=== PATIENT | female | born 1960 | race Caucasian/White ===

== ENCOUNTER 2020-08-21 07:56 | Outpatient (CLI) | payer MEDICARE, MEDICAID, SELFPAY ==
--- NOTE | ~2020-08-21 | XR_ITS ---
EXAMINATION: XR barium swallow modified DATE: 08/21/2020 08:38 INDICATION: Dysphagia, unspecified TECHNIQUE: Modified barium esophagram was performed by myself to administered fluoroscopy, in conjun ction with speech pathologist who administered barium in varying consistencies as per speech patholog ist documentation. This was recorded on tape. A single fluoroscopic spot image was recorded. The DAP for this procedure was 1.2 Gycm2. Fluoroscopy exposure time was 1.7 minutes. FINDINGS: Oral stage: Adequate function. Pharyngeal phase: Adequate function. Laryngeal penetration: None. Aspiration: None. Laryngeal sensitivity: Present. IMPRESSION: Unremarkable modified barium swallow. Please refer to speech pathologist findings and spe [facility] feeding recommendations. Reviewed, dictated and finalized at location A. IMPRESSION: Unremarkable modified barium swallow. Please refer to speech pathol ogist findings and specific feeding recommendations.
--- NOTE | 2020-08-21 08:42 | STOPEVAL ---
MODIFIED BARIUM SWALLOW EVALUATION: Thank you for referring Paula Lomeli to [facility].? Attending Provider: Cameron Xiong MD Outpatient Past Medical History: Past Medical History Source of Past Medical History Patient Endocrine History Hx Diabetes Yes Evaluation Information: Problem Diagnosis dysphagia Onset 1 month ago Modified Barium Swallow Evaluation: Recent Swallowing History Reports Dysphagia Yes: coughing and choking History of Dysphagia No Duration of Dysphagia 1 month Other Factors Impacting Dysphagia None History of Pneumonia No Reported Difficult Consistencies Thin Liquids,Solids Intake Method Prior to Swallow Oral Evaluation Diet Prior to Swallow Evaluation Regular, Level 7 Liquid Consistency Prior to Swallow Thin (0) Evaluation Consistency Solid Consistency Method of Presentation Spoon Oral Preparatory Symptoms None Oral Phase Symptoms None Pharyngeal Phase Symptoms None Severity of Vallecular Residue None - 0% No Residue Severity of Pyriform Sinus Residue None - 0% No Residue 8 Point Laryngeal Penetration-Aspiration Material Does Not Enter Airway Scale Cervical/Esophageal Symptoms None Mixed Consistency Method of Presentation Spoon Oral Preparatory Symptoms None Oral Phase Symptoms None Pharyngeal Phase Symptoms None Severity of Vallecular Residue None - 0% No Residue Severity of Pyriform Sinus Residue None - 0% No Residue 8 Point Laryngeal Penetration-Aspiration Material Does Not Enter Airway Scale Cervical/Esophageal Symptoms None Pureed Consistency Method of Presentation Spoon Oral Preparatory Symptoms None Oral Phase Symptoms None Pharyngeal Phase Symptoms None Severity of Vallecular Residue None - 0% No Residue Severity of Pyriform Sinus Residue None - 0% No Residue 8 Point Laryngeal Penetration-Aspiration Material Does Not Enter Airway Scale Cervical/Esophageal Symptoms None Thin Uncontrolled 2 Method of Presentation Straw Oral Preparatory Symptoms None Oral Phase Symptoms None Pharyngeal Phase Symptoms None Severity of Vallecular Residue None - 0% No Residue Severity of Pyriform Sinus Residue None - 0% No Residue 8 Point Laryngeal Penetration-Aspiration Material Does Not Enter Airway Scale Cervical/Esophageal Symptoms None Thin Uncontrolled 1 Method of Presentation Cup Oral Preparatory Symptoms None Oral Phase Symptoms None Pharyngeal Phase Symptoms None Severity of Vallecular Residue None - 0% No Residue Severity of Pyriform Sinus Residue None - 0% No Residue 8 Point Laryngeal Penetration-As
== END 2020-08-21 07:57 | disposition home or self-care (01) ==
LOC: ANHIMG 08:02
PROVIDERS: PCP Internal Medicine; Visit Provider Otolaryngology
DX: R13.10 Dysphagia, unspecified (principal)
CPT/HCPCS: 92611

== ENCOUNTER 2022-05-20 13:19 | Outpatient (CLI) | payer MEDICARE, MEDICAID, SELFPAY ==
--- NOTE | ~2022-05-20 | PE_ITS ---
EXAMINATION: PET skull to mid thigh DATE: 05/20/2022 15:40 INDICATION: Abnormal findings on diagnostic imaging of other specific body part. Abnormal CT . TECHNIQUE: Blood glucose level was 87 mg/dL. 10.518 mCi of 18-fluorodeoxyglucose (18-FDG) was adminis tered i.v. Low dose computed tomography (CT) images were acquired from the base of the brain to the p roximal thighs for attenuation correction and anatomic localization. Positron emission tomography (PE T) images were acquired in the same distribution beginning 59 minutes after injection. Images includi ng fused PET/CT images were reconstructed in axial, coronal, and sagittal planes. Automated exposure control technique was employed. The dose-length product was 481.20mGy-cm. COMPARISON: None FINDINGS: Head/neck: There is symmetric increased activity in the oral cavity, palatine tonsils, laryngeal muscles and ocu lar muscles without CT correlate, likely physiologic. 1.7 cm right thyroid nodule without evident FDG uptake. No pathologically enlarged cervical lymphadenopathy or suspicious foci of increased FDG upta ke in the visualized head or neck. Chest: Mild discoid atelectasis in the bilateral lower lobes. Calcified nodule in the left upper lobe and ca lcified left hilar and mediastinal lymph nodes consistent with old granulomatous disease. No other scruggs spicious pulmonary nodules, pneumonia, pulmonary edema or pleural effusion. Mild cardiomegaly. No per icardial effusion. Thoracic aorta is normal in caliber. There is mild uptake scattered along the thor acic esophagus without radiologic correlate, the maximal SUV values near the thoracic inlet with maxi mal severe 4.9. There are a couple enlarged FDG avid paraesophageal lymph nodes in the inferior thora x the more cephalad measuring 2.2 x 1.4 cm with maximal SUV of 20.7 and the more caudal thoracic outl et measuring 2.3 x 1.5 cm with maximal SUV of 29.4. No other pathologically enlarged or FDG avid thor acic lymphadenopathy. Abdomen/pelvis/proximal thighs: Thyromegaly. There are multiple scattered hepatic and splenic calcific lesions consistent with old gr anulomatous disease. There are a few hepatic cysts the largest measuring 2.5 cm. Physiologic renal ac cumulation and excretion of FDG activity in the kidneys, bladder and along portions of ureters. Bilat eral renal cysts the largest on the right measuring 5.4 cm. 2 mm nonobstructing stone at the lower po le of the left kidney. Normal degree and heterogenous pattern of increased uptake throughout the live r without radiologic correlate or dominant FDG avid lesion. The gallbladder, pancreas, spleen and santiago ateral adrenal glands are normal. Mild to moderate uptake scattered throughout the bowels without rad iologic correlate, also likely physiologic. Likely enlarged aortocaval lymph node measuring 6.1 x 3.6 cm with maximal SUV of 51.9. There are several smaller but still significantly enlarged left para-ao rtic lymph nodes, the largest measuring 2.0 cm in maximal short axis diameter with maximal SUV of 35. 1. No other pathologically enlarged or FDG avid lymphadenopathy in the pelvis or inguinal region. Musculoskeletal: No suspicious lytic, blastic or FDG avid bone lesions. IMPRESSION: 1. Enlarged and FDG markedly FDG avid aortocaval, left para-aortic and inferior paraesophageal lymph nodes suspicious for lymphoma with no lesion suspicious for primary malignancy which is most concerni ng for lymphoma. Consider CT-guided biopsy of one of the left periaortic lymph nodes. Reviewed, dictated and finalized at location A. TRONIC WARFARE TECHNICIAN IMPRESSION: 1. Enlarged and FDG markedly FDG avid aortocaval, left para-aortic and inferior paraesophageal lymph nodes suspicious for lymphoma with no lesion suspicious f or primary malignancy which is most con
[2022-05-20 14:07] LABS: Glucose Point of Care 87 mg/dl (65-105)
== END 2022-05-20 13:20 | disposition home or self-care (01) ==
PROVIDERS: PCP Internal Medicine; Visit Provider Internal Medicine
DX: R93.89 Abnormal findings on diagnostic imaging of other specified body structures (principal)
CPT/HCPCS: 78815; A9552

== ENCOUNTER 2022-06-08 01:53 | Outpatient (CLI) | payer MEDICARE, MEDICAID, SELFPAY ==
[2022-06-03 10:13] VITALS: BMI 27.9
--- NOTE | 2022-06-03 10:14 | PC.NURSE ---
Pre Radiology instructions Report to the outpatient [facility] AT 0900 on date 06/08/22. Procedure Time: 1100. YOU MAY BE MONITORED AT HOSPITAL FOR UP TO 4 HOURS AFTER YOUR PROCEDURE. 1-2 visitors will be allowed to accompany the patient into the hospital. ?The visitor will be instructed to remain with patient at all times or MAY BE ASKED TO leave the building due to restrictions.? We will allow the visitor to come back to the postoperative area when patient is ready.? NO children visitors allowed at this time. You and your visitor will be asked to self-screen and do not enter if you have any COVID symptoms. A mask is OPTIONAL within the hospital. Patients are to have no food or drink 6 hours prior to procedure time Driving will be restricted after the procedure, you must have a person to drive you home. Labs will be drawn in preop area and once reviewed, you will be taken to radiology area for procedure. When the procedure is completed, you will be taken to outpatient where you will be monitored for several hours. You may have one visitor in this area. Other than holding anti-coagulants, patient may take other medication(s) as scheduled. Prior to your appointment date patients are instructed to hold anti-coagulants after discussing with ordering provider to stop. If unable to discontinue anti-coagulants please notify radiologist. ? No aspirin or warfarin (Coumadin) for 7 days prior to the procedure. ? No clopidogrel (Plavix), ticagrelor (Brilinta), prasugrel (Effient) or dabigatran (Pradaxa) for 5 days prior to the procedure. ? No rivaroxaban (Xarelto), apixaban (Eliquis), dipyridamole (Aggrenox or Persantine) or cilostazol (Pletal) for 2 days prior to the procedure. Medications to discontinue per physician: N/A Date to take last dose: N/A Please leave all valuables, including medications, at home the day of procedure. The hospital will not accept responsibility for valuables. Wear comfortable, loose fitting clothing.? Follow any additional instructions given to you from ordering provider. Telephone instructions given to MARY ORELLANA and asked if any additional questions and then verbalized understanding. Patient advised to call scheduling provider office or registration scheduling [phone] if any additional questions.
[2022-06-08] VITALS (8 sets, daily range): BP systolic 115–154; BP diastolic 66–100; PULSE 51–91; RESP 14–18; TEMP 36.7; O2SAT 94–97
--- NOTE | ~2022-06-08 | CT_ITS ---
EXAMINATION: CT biopsy lymph node DATE: 06/08/2022 11:19 INDICATION: Retroperitoneal lymphadenopathy. TECHNIQUE: The procedure including the risks, benefits, and alternatives was discussed with the patie nt. Risks discussed included bleeding and infection. The patient verbalized understanding of the risk s and agreed to proceed. The skin overlying the retroperitoneum was prepped and draped in usual ster ile fashion. Anesthetic was administered with 1% lidocaine subcutaneously. A 16 gauge outer needle was advanced under CT guidance to the left paracolic lymphadenopathy. An 18 gauge core biopsy needle was then used to obtain 6 core biopsy specimens. The mA was adjusted according to patient size. Itera tive reconstruction technique was employed. The dose-length product was 211.16 mGy-cm. The needle was removed and the entry site was cleaned and dressed. There were no immediate complications. FINDINGS: CT images demonstrate the outer needle tip adjacent to an enlarged left para-aortic lymph n ode. IMPRESSION: 1. CT-guided core needle biopsy of an enlarged left para-aortic lymph node. Reviewed, dictated and finalized at location A.
[2022-06-08 09:26] LABS: Basophils Absolute Auto 0.1 K/mm3 (0.0-0.1); Basophils Percent Auto 0.7 % (0.2-1.2); Eosinophils Absolute Auto 0.2 K/mm3 (0-0.3); Eosinophils Percent Auto 3.5 % (0-4.4); Hematocrit 40.7 % (37.0-47.0); Hemoglobin 12.9 g/dL (12.0-15.0); Immature Granulocyte Absolute 0.03 K/mm3 (0.00-0.031); Immature Granulocyte Percent A 0.4 % (0-0.5); Lymphocytes Absolute Auto 1.67 K/mm3 (0.9-3.2); Lymphocytes Percent Auto 24.3 % (18.3-44.2); Mean Corpuscular HGB Conc 31.7 g/dl (32-36); Mean Corpuscular Hemoglobin 27.6 pg (26-34); Mean Platelet Volume 9.2 fl (7.4-10.4); Monocytes Absolute Auto 0.6 K/mm3 (0.1-0.6); Monocytes Percent Auto 8.7 % (2.6-8.5); Neutrophils Absolute Auto 4.3 K/mm3 (1.3-6.7); Neutrophils Percent Auto 62.4 % (45.5-73.1); Platelet Count Result 193 k/mm3 (150-375); Red Blood Count 4.68 M/mm3 (4.2-5.4); Red Cell Distribution Width 14.3 % (11.5-14.5); White Blood Count 6.9 K/mm3 (4.5-10.0)
[2022-06-08 09:38] LABS: Prothrombin Time 12.5 Seconds (11.1-14.7)
== END 2022-06-08 13:15 | disposition home or self-care (01) ==
PROVIDERS: PCP Internal Medicine; Visit Provider Radiology Diagnostic Radiology
PROC: (CPT 77012; principal; 2022-06-08 11:00)
DX: R93.89 Abnormal findings on diagnostic imaging of other specified body structures (principal)
CPT/HCPCS: 36415; 38505; 77012; 85025; 85610; 88184; 88305; 88341; 88342; 88360

== ENCOUNTER 2022-09-16 18:37 | Emergency (ER) | payer MEDICARE, MEDICAID, SELFPAY ==
--- NOTE | ~2022-09-16 | XR_ITS ---
EXAMINATION: XR chest 1V portable Exam Date/Time: 09/16/2022 21:30 CDT HISTORY: hypotension. Hx diabetes, non-hodgkins lymphoma Comparison: None. RESULT: Lines, tubes, and devices: Right implanted port, terminating at the cavoatrial junction. Lungs and pleura: No focal consolidation, effusion, or pneumothorax. Streaky bibasilar opacities lik anam representing atelectasis and/or scar. Cardiomediastinal silhouette: Calcified hilar nodes, otherwise unremarkable. Other: No acute osseous or upper abdominal finding. IMPRESSION: No acute cardiopulmonary process. Reviewed, dictated and finalized at location K.
[2022-09-16 18:40] VITALS: BP 82/59; PULSE 72; RESP 18; O2SAT 96
[2022-09-16 18:44] LABS: Glucose Point of Care 115 mg/dl (65-105)
--- NOTE | 2022-09-16 19:16 | ED.RECABL ---
HPI - Recheck/Abnormal Lab/Rx General Chief Complaint: Recheck/Abnormal Lab/Rx Stated Complaint: low blood sugar Time Seen by Provider: 09/16/22 19:15 Source: patient, family and EMS Mode of arrival: EMS Limitations: no limitations History of Present Illness HPI narrative: Patient came to the hospital from home, lives with her sister because of low blood glucose. Patient is diabetic and reported that she took her insulin this evening with dinner and then shortly after dinner at approximately 1710 patient's family noted her to be lethargic and nearly unresponsive, 9 1 was called, blood glucose was 36, EMT unable to get IV access, patient received IM glucagon and the blood glucose came up to 96, on arrival to the ED patient is awake, alert and oriented x4, blood glucose is 115. Patient on chemotherapy for non-Hodgkin lymphoma at [facility], last chemotherapy was 2 weeks ago. Currently patient denies any fever, chills, nausea, vomiting, chest pain, shortness of breath, headache. Patient been sleeping longer hours since starting chemotherapy few weeks ago Related Data Home Medications Medication Instructions Recorded Confirmed albuterol sulfate 2.5 mg/3 mL 2.5 mg inhalation Q6H 08/13/20 06/03/22 (0.083 %) solution for nebulization amlodipine 5 mg tablet 5 mg PO DAILY 08/13/20 06/03/22 blood sugar diagnostic 08/13/20 07/30/21 gabapentin 600 mg tablet 600 mg PO TID 08/13/20 06/03/22 pantoprazole 20 mg tablet,delayed 20 mg PO QAM 08/13/20 06/03/22 release ziprasidone HCl 80 mg capsule 80 mg PO BID 08/13/20 06/03/22 fluticasone fur. 200 mcg-umeclid 1 inh inhalation DAILY 06/03/22 06/03/22 62.5 mcg-vilant 25 mcg inhalat.powder (Trelegy Ellipta) hydroxyzine pamoate 25 mg capsule 25 mg PO DAILY 06/03/22 06/03/22 insulin detemir U-100 100 unit/mL 20 unit subcut BID 06/03/22 06/03/22 (3 mL) subcutaneous pen (Levemir FlexPen) insulin human U-100 NPH-regulr 10 unit subcut BID 06/03/22 06/03/22 70-30 mix 100 unit/mL subcutaneous susp (Novolin 70/30 U-100 Insulin) Allergies Allergy/AdvReac Type Severity Reaction Status Date / Time aspirin Allergy Mild eyes swell Verified 09/16/22 18:48 clonazepam Allergy Anaphylaxis Verified 09/16/22 18:48 chlorthalidone AdvReac Itching Verified 09/16/22 18:48 Review of Systems Review of Systems: All systems reviewed & are unremarkable except as noted in HPI and below PMFSH Family History Family History Father Alcoholism Mother Alcoholism Other Alcoholism Hypertension Depression Social History Social History Smoking status: Never smoker Alcohol intake: never Substance use: never Exam Narrative: General appearance: Well-developed, well-nourished, sick looking Skin: Pale Head: Normocephalic, nontraumatic Eyes: Clear conjunctiva ENT: Oropharynx normal, ears normal, nose normal Neck: Supple, nontender Chest and respiratory: Airway patent, no respiratory distress, no accessory muscle use Heart: Regular rate/rhythm Abdomen: Soft, nontender, no organomegaly, quiet bowel sounds Vascular: Normal peripheral pulses, normal capillary refill. Musculoskeletal: Normal range of motion, nontender back Neurologic: Alert and oriented ?3, INFORMATION TECHNOLOGY CONSULTANT is normal as tested, no gross motor deficit Course Vital Signs Vital signs: Vital Signs Pulse Rate 72 09/16/22 18:40 Respiratory Rate 18 09/16/22 18:40 Blood Pressure 82/59 L 09/16/22 18:40 Pulse Oximetry 96 09/16/22 18:40 Oxygen Delivery Room Air 09/16/22 18:40 Pulse Rate 60 09/16/22 21:16 Respiratory Rate 16
[2022-09-16 20:07] LABS: Glucose Point of Care 266 mg/dl (65-105)
[2022-09-16 21:16] VITALS: BP 86/52; PULSE 60; RESP 16; O2SAT 98
--- NOTE | 2022-09-16 21:16 | PC.NURSE ---
FABRICIO Conrad made aware of bp. per Dr. Conrad to give a bolus of 1L of NS.
[2022-09-16] MEDS: SODIUM CHLORIDE 0.9% IV 1,000 ML 999 ML IV CONT (21:23)
--- NOTE | 2022-09-16 21:23 | ECG_ITS ---
Measurements Intervals [place] Rate: 61 P: 52 MA: 186 QRS: -4 QRSD: 97 T: 29 QT: 509 QTc: 513 Interpretive Statements SINUS RHYTHM PROLONGED QT INTERVAL ABNORMAL ECG NO PREVIOUS ECG AVAILABLE FOR COMPARISON Electronically Signed On 09-17-2022 7:56:25 CDT by Agustin Fontanez M.D.
[2022-09-16 21:47] LABS: Hematocrit 25.4 % (37.0-47.0); Hemoglobin 8.1 g/dL (12.0-15.0); Immature Platelet Fraction Pct 7.3 % (0.9-11.2); Mean Corpuscular HGB Conc 31.9 g/dl (32-36); Mean Corpuscular Hemoglobin 28.3 pg (26-34); Mean Corpuscular Volume 88.8 fl (80-100); Mean Platelet Volume 11.7 fl (7.4-10.4); Platelet Count Result 58 k/mm3 (150-375); Red Blood Count 2.86 M/mm3 (4.2-5.4); Red Cell Distribution Width 19.2 % (11.5-14.5); White Blood Count 6.1 K/mm3 (4.5-10.0)
[2022-09-16 21:58] LABS: Alanine Aminotransferase 31 U/L (6-35); Albumin Level 3.2 g/dL (3.5-5.1); Alkaline Phosphatase 61 U/L (38-126); Anion Gap 6 mmol/L (8-16); Aspartate Amino Transferase 23 U/L (14-36); Bilirubin,Total 0.2 mg/dL (0.2-1.3); Blood Urea Nitrogen 5 mg/dL (7-17); Calcium 8.4 mg/dL (8.4-10.2); Carbon Dioxide 25 mmol/L (22-30); Chloride 104 mmol/L (98-107); Estimated CRCL calculation 60 ml/min; Estimated Glomerular Filt Rate > 60; Glucose 133 mg/dL (65-110); Potassium 3.2 mmol/L (3.4-5.0); Sodium 135 mmol/L (137-145)
[2022-09-16 22:05] LABS: INR 1.1; Prothrombin Time 14.6 Seconds (11.1-14.7)
[2022-09-16 22:06] LABS: Partial Thromboplastin Time 40.7 SECONDS (22.3-36.8)
[2022-09-16 22:34] LABS: Band Neutrophils Percent 9 % (0-6); Lymphocytes Absolute Manual 0.67 K/mm3 (1.1-4.5); Lymphocytes Percent Manual 11 % (18-44); Neutrophils Absolute Manual 3.59 K/mm3 (1.7-7.2); Neutrophils Percent Manual 50 % (46-73)
[2022-09-16 22:38] LABS: Monocytes Absolute Manual 1.83 K/mm3 (0.1-0.90); Monocytes Percent Manual 30 % (3-9); Platelet Estimate Decreased (Adequate)
[2022-09-16 22:39] LABS: Ovalocytes 1+ (NORMAL); Schistocytes None Seen (NORMAL)
[2022-09-16 22:44] LABS: Appearance Urine Clear (Clear); Bilirubin Urine Negative (Negative); Blood Urine Negative (Negative); Color Urine Yellow (Yellow); Glucose Urine UA 2+ mg/dL (Negative); Ketones Urine Negative (Negative); Leukocyte Esterase Ur Negative LEU/UL (Negative); Nitrate Urine Negative (Negative); Protein Urine Negative (Negative); Specific Grav Ur 1.008 (1.001-1.035); Urobilinogen Urine 0.2 mg/dL (<2.0); pH Urine 6.5 (5.0-9.0)
[2022-09-16 22:47] LABS: Add Urine Microscopic? NO
[2022-09-16 23:31] LABS: Lactic Acid Reflex 1.1 mmol/L (0.7-2.0)
[2022-09-16 23:37] VITALS: BP 115/64; PULSE 80; RESP 19; TEMP 36.9; O2SAT 98
[2022-09-17] MEDS: POTASSIUM CHLORIDE 20 MEQ PACKET (FOR LIQUID) 40 MEQ PO (00:27)
== END 2022-09-17 01:18 | disposition home or self-care (01) ==
PROVIDERS: Emergency Provider Emergency Medicine; PCP Internal Medicine
DX: E11.649 Type 2 diabetes mellitus with hypoglycemia without coma (principal); D69.6 Thrombocytopenia, unspecified; E87.6 Hypokalemia; D64.9 Anemia, unspecified; I95.9 Hypotension, unspecified; C85.90 Non-Hodgkin lymphoma, unspecified, unspecified site; Z79.899 Other long term (current) drug therapy; Z79.4 Long term (current) use of insulin; R94.31 Abnormal electrocardiogram [ECG] [EKG]
CPT/HCPCS: 36415; 71045; 80053; 81003; 82948; 83605; 85025; 85055; 85610; 85730; 86140; 87040; 93005; 96360; 96361; 99283; A9270; J7030

== ENCOUNTER 2023-10-16 18:27 | Emergency (ER) | payer MEDICARE, MEDICAID, SELFPAY ==
[2023-10-16] VITALS (9 sets, daily range): BP systolic 168–188; BP diastolic 91–106; PULSE 79–85; RESP 14–23; TEMP 36.8–37.1; O2SAT 96–100
--- NOTE | ~2023-10-16 | XR_ITS ---
EXAMINATION: XR chest 1V portable DATE: 10/16/2023 18:53 INDICATION: Shortness of breath TECHNIQUE: frontal view of the chest was obtained. COMPARISON: None FINDINGS: Right internal jugular central venous port catheter with distal tip at the mid superior vena cava. Mi ld right apical pleural-parenchymal scarring. Minimal streaky atelectasis at the bilateral lung bases . No other airspace opacities, pulmonary edema, pleural effusion or pneumothorax. Heart size is emil l. Calcified mediastinal lymph nodes consistent with old granulomatous disease. Likely implantable ca rdiac monitor projecting over the lower left chest. Mild lower thoracic levocurvature with moderate s pondylosis. IMPRESSION: 1. Mild right apical pleural-parenchymal scarring and minimal bibasilar atelectasis. Reviewed, dictated and finalized at location A. IMPRESSION: 1. Mild right apical pleural-parenchymal scarring and minimal bibasilar atelect asis.
--- NOTE | 2023-10-16 18:34 | ECG_ITS ---
Test Date: 2023-10-16 18:34:44 Measurements Intervals [place] Rate: 80 P: 67 SC: 176 QRS: -20 QRSD: 99 T: 40 QT: 406 QTc: 471 Interpretive Statements SINUS RHYTHM BORDERLINE R WAVE PROGRESSION, ANTERIOR LEADS CONSIDER INFERIOR INFARCT, AGE INDETERMINATE BORDERLINE ST-T WAVE ABNORMALITY- ANT/HIGH LAT LEADS BASELINE ARTIFACT- I, II, III, AVR, AVL,A VF, V1-V6 ABNORMAL ECG No previous ECG available for comparison Electronically Signed On 10-17-2023 13:06:52 CDT by José Miguel Jose D.O.
[2023-10-16 19:02] LABS: Basophils Percent Auto 0.7 % (0.2-1.2); Eosinophils Absolute Auto 0.1 K/mm3 (0-0.3); Eosinophils Percent Auto 2.2 % (0-4.4); Hematocrit 37.6 % (37.0-47.0); Hemoglobin 12.1 g/dL (12.0-15.0); Immature Granulocyte Absolute 0.01 K/mm3 (0.00-0.031); Immature Granulocyte Percent A 0.2 % (0-0.5); Lymphocytes Absolute Auto 0.99 K/mm3 (0.9-3.2); Lymphocytes Percent Auto 21.8 % (18.3-44.2); Mean Corpuscular HGB Conc 32.2 g/dl (32-36); Mean Corpuscular Hemoglobin 29.1 pg (26-34); Mean Corpuscular Volume 90.4 fl (80-100); Monocytes Absolute Auto 0.4 K/mm3 (0.1-0.6); Monocytes Percent Auto 9.7 % (2.6-8.5); Neutrophils Percent Auto 65.4 % (45.5-73.1); Platelet Count Result 168 k/mm3 (150-375); Red Blood Count 4.16 M/mm3 (4.2-5.4); Red Cell Distribution Width 14.3 % (11.5-14.5); White Blood Count 4.5 K/mm3 (4.5-10.0)
[2023-10-16 19:15] LABS: Alanine Aminotransferase 41 U/L (6-35); Albumin Level 4.9 g/dL (3.5-5.1); Alkaline Phosphatase 67 U/L (38-126); Anion Gap 12 mmol/L (4-12); Aspartate Amino Transferase 32 U/L (14-36); Bilirubin,Total 0.5 mg/dL (0.2-1.3); Blood Urea Nitrogen 13 mg/dL (7-17); Carbon Dioxide 25 mmol/L (22-30); Chloride 101 mmol/L (98-107); Estimated CRCL calculation 60 ml/min; Estimated Glomerular Filt Rate > 60; Glucose 100 mg/dL (65-110); Potassium 3.5 mmol/L (3.4-5.0); Sodium 138 mmol/L (137-145)
[2023-10-16 19:21] LABS: NT Pro B Type Natriuretic Pept 38 pg/mL (19.9-100)
--- NOTE | 2023-10-16 19:23 | ED.GENADULT ---
HPI - General Adult General Chief complaint: Shortness of Breath/Dyspnea Stated complaint: SOB Time Seen by Provider: 10/16/23 18:46 History of Present Illness HPI narrative: This is a 63-year-old female presenting ED with chief complaint of shortness of breath. She has been having shortness of breath for 3 days. It is intermittent. It is associated with chest tightness and anxious knees. Patient says she believes she has COPD but her primary care physician took her off the inhaler 3 years ago. She is denying fevers chills or URI symptoms. No lower extremity edema. Patient just found out 3 days ago prior to her symptoms starting that she was not a good candidate for surgery and she will likely never walk again due to LE neuropathy. This has been causing her significant distress. Patient is not currently short of breath. Related Data Allergies Allergy/AdvReac Type Severity Reaction Status Date / Time aspirin Allergy Difficulty Verified 10/16/23 18:37 Breathing Exam Narrative: APPEARANCE: No apparent distress. Head: atraumatic. EYES: EOMI, NOSE: Atraumatic NECK: Trachea midline RESPIRATORY: No increased rate of breathing clear to auscultation CARDIOVASCULAR: RRR, no peripheral edema ABDOMINAL: Non-distended MUSCULOSKELETAl: Inversion of both feet due to peripheral neuropathy NEURO: Alert. Moving 4/4 extremities SKIN:: Warm, dry. Normal color PSYCHIATRIC: Normal affect Course Vital Signs Vital signs: Vital Signs Temperature 98.7 F 10/16/23 18:30 Pulse Rate 82 10/16/23 18:30 Respiratory Rate 17 10/16/23 18:30 Blood Pressure 188/102 H 10/16/23 18:30 Pulse Oximetry 99 10/16/23 18:30 Temperature 98.3 F 10/16/23 18:32 Pulse Rate 79 10/16/23 19:01 Respiratory Rate 15 10/16/23 19:01 Blood Pressure 176/106 H 10/16/23 19:01 Pulse Oximetry 99 10/16/23 19:01 Oxygen Delivery Room Air 10/16/23 18:32 Medical Decision Making MDM Narrative Medical decision making narrative: -Course: 63-year-old female presenting with intermittent shortness of breath for the last 3 days. Physical exam that wheezing. No objective respiratory distress. Workup urgency department was unremarkable. Troponin D-dimer BNP negative. Viral swabs negative. Chest x-ray showed minimal atelectasis. Patient has been asymptomatic during the course of her stay. Patient will be discharged to follow-up with her primary care physician and given return precautions. -DDX includes but is not limited to: Anxiety, viral illness, COPD, heart failure, pneumonia, PE -Co-morbidities complicating care: Anxiety, copd? Neuropathy -Hx from independent Sources: Family at bedside -Independent interpretation of studies: Labs reviewed. Imaging reviewed. Independent EKG interpretation: Rhythm [sinus], Rate [80], [place] -[normal], [place] -[normal], QRS [narrow], QTC [normal], T waves -[negative for concerning inversions], ST Segments - [Negative for concerning elevations] Final interpretations: [Normal Sinus Rhythm] -Shared decision making / Disposition: Discharge Vital Signs Vital Signs: Vital Signs Temperature 98.7 F 10/16/23 18:30 Pulse Rate 82 10/16/23 18:30 Respiratory Rate 17 10/16/23 18:30 Blood Pressure 188/102 H 10/16/23 18:30 Pulse Oximetry 99 10/16/23 18:30 Temperature 98.3 F 10/16/23 18:32 Pulse Rate 79 10/16/23 19:01 Respiratory Rate 15 10/16/23 19:01 Blood Pressure 176/106 H 10/16/23 19:01 Pulse Oximetry 99 10/16/23 19:01 Oxygen Delivery Room Air 10/16/23 18:32 Lab Data 10/16/23 18:55 10/16/23 18:55 Labs: Lab Results 10/16/23 Range/Units 18:55 WBC 4.5 (4.5-10.0) K/mm3 RBC 4.16 L (4.2-5.4) M/mm3 Hgb 12.1 (12.0-15.0) g/dL Hct 37.6 (37.0-47.0) % MCV 90.4 (80-100) fl MCH 29.1 (26-34) pg MCHC 32.2 (32-36) g/dl RDW 14.3 (11.5-14.5) % Plt Count 168 (150-375) k/mm3 MPV 9.0 (7.4-10.4) fl Immatu
[2023-10-16 19:42] LABS: Influenza A QL RT-PCR Negative (Negative); Influenza B QL RT-PCR Negative (Negative); RSV RNA, RT-PCR Negative (Negative); SARS-CoV-2 RNA PCR Negative (Negative); Troponin I < 0.012 ng/mL (0.000-0.034)
[2023-10-16 19:54] LABS: D Dimer 0.29 ug/mL (<0.48)
== END 2023-10-16 20:59 | disposition home or self-care (01) ==
PROVIDERS: Emergency Medicine; Emergency Provider Emergency Medicine
DX: R06.00 Dyspnea, unspecified (principal); Z20.822 Contact with and (suspected) exposure to COVID-19
CPT/HCPCS: 36415; 71045; 80053; 83880; 84484; 85025; 85380; 87637; 93005; 99284

== ENCOUNTER 2024-04-12 20:48 | Emergency (ER) | payer MEDICARE, MEDICAID, SELFPAY ==
--- NOTE | ~2024-04-12 | XR_ITS ---
EXAMINATION: XR chest 2V 04/12/2024 21:20 INDICATION: Chest pain PROCEDURE: AP and lateral views of the chest COMPARISON: 10/16/2023 FINDINGS: The lungs are clear. There is a lucila catheter, tip in the CC. Battery pack overlies the ca rdiac contour. The cardiomediastinal silhouette is within normal limits. There are no pleural effusi ons. There is no pneumothorax suspected. IMPRESSION: 1: NO ACUTE CARDIOPULMONARY DISEASE. Reviewed, dictated and finalized at location A. MAN
[2024-04-12 20:50] VITALS: BP 154/85; PULSE 84; RESP 16; TEMP 36.4; O2SAT 95
--- NOTE | 2024-04-12 20:57 | ECG_ITS ---
Test Date: 2024-04-12 20:54:20 Measurements Intervals [place] Rate: 83 P: 77 MO: 178 QRS: -19 QRSD: 82 T: 54 QT: 372 QTc: 439 Interpretive Statements SINUS RHYTHM INCOMPLETE RIGHT BUNDLE BRANCH BLOCK SEPTAL MYOCARDIAL INFARCTION , OF INDETERMINATE AGE [40+ ms Q WAVE IN V1/V2] COMPARED TO PREVIOUS EKG DATED 10/16/2023: INCOMPLETE RIGHT BUNDLE BRANCH BLOCK NOW PRESENT Electronically Signed On 04-13-2024 14:35:32 [employer] by Renee Huitron M.D.
[2024-04-12 21:00] VITALS: PULSE 87; O2SAT 95
[2024-04-12 21:05] LABS: Basophils Absolute Auto 0.1 K/mm3 (0.0-0.1); Basophils Percent Auto 0.8 % (0.2-1.2); Eosinophils Absolute Auto 0.1 K/mm3 (0-0.3); Eosinophils Percent Auto 1.8 % (0-4.4); Hematocrit 39.2 % (37.0-47.0); Hemoglobin 12.6 g/dL (12.0-15.0); Immature Granulocyte Absolute 0.12 K/mm3 (0.00-0.031); Immature Granulocyte Percent A 1.6 % (0-0.5); Lymphocytes Absolute Auto 1.06 K/mm3 (0.9-3.2); Lymphocytes Percent Auto 14.4 % (18.3-44.2); Mean Corpuscular HGB Conc 32.1 g/dl (32-36); Mean Corpuscular Hemoglobin 28.9 pg (26-34); Mean Corpuscular Volume 89.9 fl (80-100); Mean Platelet Volume 8.9 fl (7.4-10.4); Monocytes Absolute Auto 0.5 K/mm3 (0.1-0.6); Monocytes Percent Auto 7.2 % (2.6-8.5); Neutrophils Absolute Auto 5.5 K/mm3 (1.3-6.7); Neutrophils Percent Auto 74.2 % (45.5-73.1); Platelet Count Result 222 k/mm3 (150-375); Red Blood Count 4.36 M/mm3 (4.2-5.4); Red Cell Distribution Width 13.7 % (11.5-14.5); White Blood Count 7.4 K/mm3 (4.5-10.0)
[2024-04-12 21:16] LABS: Alanine Aminotransferase 32 U/L (6-35); Albumin Level 4.6 g/dL (3.5-5.1); Alkaline Phosphatase 70 U/L (38-126); Anion Gap 6 mmol/L (4-12); Aspartate Amino Transferase 31 U/L (14-36); Bilirubin,Total 0.4 mg/dL (0.2-1.3); Blood Urea Nitrogen 16 mg/dL (7-17); Calcium 9.7 mg/dL (8.4-10.2); Carbon Dioxide 27 mmol/L (22-30); Chloride 103 mmol/L (98-107); Estimated CRCL calculation 66 ml/min; Estimated Glomerular Filt Rate > 60; Glucose 125 mg/dL (65-110); INR 1.2; Lipase 44 U/L (23-300); Potassium 4.3 mmol/L (3.4-5.0); Prothrombin Time 15.9 Seconds (11.1-14.7); Sodium 136 mmol/L (137-145)
[2024-04-12 21:17] LABS: Partial Thromboplastin Time 37.2 Seconds (22.3-36.8)
[2024-04-12 21:27] LABS: Troponin I < 0.012 ng/mL (0.000-0.034)
[2024-04-12 21:41] LABS: NT Pro B Type Natriuretic Pept < 20 pg/mL (19.9-100)
[2024-04-12] MEDS: diazePAM INJ (*CRX) 10 MG/2 ML SYRINGE 5 MG IV PUSH (21:46)
--- NOTE | 2024-04-12 22:58 | ED.GENADULT ---
HPI - General Adult General Chief complaint: Chest Pain Stated complaint: HTN, NAUSEA, CP X 5 MINUTES (NOW RESOLVED) Time Seen by Provider: 04/12/24 21:19 History of Present Illness HPI narrative: This is a 64-year-old female presenting ED with chief shortness of breath. At 7:31 a.m. patient was watching TV she developed acute onset shortness of breath and nausea. She also 2nd of chest pain which she felt like someone was hitting her chest that has since resolved. She is currently resting in bed no symptoms. She denies fevers chills vomiting abdominal pain or urinary symptoms. Related Data Home Medications ?Medication ?Instructions ?Recorded ?Confirmed ?Last Taken ?Type albuterol sulfate 2.5 mg/3 mL 2.5 mg inhalation Q6H 08/13/20 06/03/22 Unknown History (0.083 %) solution for nebulization amlodipine 5 mg tablet 5 mg PO DAILY 08/13/20 06/03/22 Unknown History blood sugar diagnostic 08/13/20 07/30/21 Unknown History gabapentin 600 mg tablet 600 mg PO TID 08/13/20 06/03/22 Unknown History pantoprazole 20 mg tablet,delayed 20 mg PO QAM 08/13/20 06/03/22 Unknown History release ziprasidone HCl 80 mg capsule 80 mg PO BID 08/13/20 06/03/22 Unknown History fluticasone fur. 200 mcg-umeclid 1 inh inhalation DAILY 06/03/22 06/03/22 Unknown History 62.5 mcg-vilant 25 mcg inhalat.powder (Trelegy Ellipta) hydroxyzine pamoate 25 mg capsule 25 mg PO DAILY 06/03/22 06/03/22 Unknown History insulin detemir U-100 100 unit/mL 20 unit subcut BID 06/03/22 06/03/22 Unknown History (3 mL) subcutaneous pen (Levemir FlexPen) insulin human U-100 NPH-regulr 10 unit subcut BID 06/03/22 06/03/22 Unknown History 70-30 mix 100 unit/mL subcutaneous susp (Novolin 70/30 U-100 Insulin) Allergies Allergy/AdvReac Type Severity Reaction Status Date / Time aspirin Allergy Difficulty Verified 10/21/23 11:45 Breathing clonazepam Allergy Anaphylaxis Verified 10/21/23 11:45 chlorthalidone AdvReac Itching Verified 10/21/23 11:45 [facility] Family History Family History Father Alcoholism Mother Alcoholism Other Alcoholism Hypertension Depression Social History Social History Smoking status: Never smoker Alcohol intake: never Substance use: never Exam Narrative: APPEARANCE: Anxious. Head: atraumatic. EYES: EOMI, NOSE: Atraumatic NECK: Trachea midline RESPIRATORY: No increased rate of breathing CTAB CARDIOVASCULAR: RRR, no peripheral edema ABDOMINAL: Non-distended soft nontender MUSCULOSKELETAl: No obvious deformities NEURO: Alert. Moving 4/4 extremities SKIN:: Warm, dry. Normal color PSYCHIATRIC: Normal affect Course Vital Signs Vital signs: Vital Signs Temperature 97.6 F 04/12/24 20:50 Pulse Rate 84 04/12/24 20:50 Respiratory Rate 16 04/12/24 20:50 Blood Pressure 154/85 H 04/12/24 20:50 Pulse Oximetry 95 04/12/24 20:50 Oxygen Delivery Room Air 04/12/24 20:50 Temperature 97.6 F 04/12/24 20:50 Pulse Rate 87 04/12/24 21:00 Respiratory Rate 16 04/12/24 20:50 Blood Pressure 154/85 H 04/12/24 20:50 Pulse Oximetry 95 04/12/24 21:00 Oxygen Delivery Room Air 04/12/24 21:00 Medical Decision Making [facility] Narrative Medical decision making narrative: -Course: 64-year-old female presenting with an episode of shortness of breath/chest pain. Patient's workup including troponin x2,chest x-ray EKG and BNP were all within normal limits. Patient was monitored for 4 hours with no recurrence symptoms. She has sitting chest pain-free. She did receive Valium for anxiety. Discussed her results patient is comfortable being discharged home follow-up primary care physician. -DDX includes but is not limited to: ACS, pneumonia, anxiety, PTX, AoD -Independent interpretation of studies: Labs imaging reviewed Independent EKG interpretation: Rhythm [sinus], Rate [83], [place] -[normal], [place] -[normal], QRS [narrow], QTC [normal], T waves -[negative for concerning inversions], ST Segments - [Negative for concerning elevations] Final interpretations: [Normal Sinus Rhythm] -Dx tests considered but not ordered: PE studies - patient on Eliquis -Shared decision making / Disposition:discharged. Vital Signs Vital Signs: Vital Signs Temperature 97.6 F 04/12/24 20:50 Pulse Rate 84 04/12/24 20:50 Respiratory Rate 16 04/12/24 20:50 Blood Pressure 154/85 H 04/12/24 20:50 Pulse Oximetry 95 04/12/24 20:50 Oxygen Delivery Room Air 04/12/24 20:50 Temperature 97.6 F 04/12/24 20:50 Pulse Rate 87 04/12/24 21:00 Respiratory Rate 16 04/12/24 20:50 Blood Pressure 154/85 H 04/12/24 20:50 Pulse Oximetry 95 04/12/24 21:00 Oxygen Delivery Room Air 04/12/24 21:00 Lab Data 04/12/24 20:59 04/12/24 20:59 Labs: Lab Results 04/12/24 04/12/24 Range/Units 20:59 23:53 WBC 7.4 (4.5-10.0) K/mm3 RBC 4.36 (4.2-5.4) M/mm3 Hgb 12.6 (12.0-15.0) g/dL Hct 39.2 (37.0-47.0) % MCV 89.9 (80-100) fl MCH 28.9 (26-34) pg MCHC 32.1 (32-36) g/dl RDW 13.7 (11.5-14.5) % Plt Count 222 (150-375) k/mm3 MPV 8.9 (7.4-10.4) fl Immature Gran % (Auto) 1.6 H (0-0.5) % Neut % (Auto) 74.2 H (45.5-73.1) % Lymph % (Auto) 14.4 L (18.3-44.2) % [place] % (Auto) 7.2 (2.6-8.5) % Eos % (Auto) 1.8 (0-4.4) % Baso % (Auto) 0.8 (0.2-1.2) % Lymph # (Auto) 1.06 (0.9-3.2) K/mm3 [place] # (Auto) 0.5 (0.1-0.6) K/mm3 Eos # (Auto) 0.1 (0-0.3) K/mm3 Baso # (Auto) 0.1 (0.0-0.1) K/mm3 Abs Immat Gran (auto) 0.12 H (0.00-0.031) K/mm3 Absolute Neuts (auto) 5.5 (1.3-6.7) K/mm3 Absolute Nucleated RBC 0.000 (0.0-0.012) K/mm3 Nucleated RBC % 0.0 (0.0-0.2) % PT 15.9 H (11.1-14.7) Seconds INR 1.2 APTT 37.2 H (22.3-36.8) Seconds Sodium 136 L (137-145) mmol/L Potassium 4.3 (3.4-5.0) mmol/L Chloride 103 (98-107) mmol/L Carbon Dioxide 27 (22-30) mmol/L Anion Gap 6 (4-12) mmol/L BUN 16 (7-17) mg/dL Creatinine 0.65 L (0.7-1.0) mg/dL Estim Creat Clear Calc 66 ml/min Estimated GFR > 60 (59 - ) Glucose 125 H (65-110) mg/dL Calcium 9.7 (8.4-10.2) mg/dL Total Bilirubin 0.4 (0.2-1.3) mg/dL AST 31 (14-36) U/L ALT 32 (6-35) U/L Alkaline Phosphatase 70 (38-126) U/L Troponin I < 0.012 < 0.012 (0.000-0.034) ng/mL NT-Pro-B Natriuret Pep < 20 (19.9-100) pg/mL Total Protein 7.0 (6.3-8.2) g/dL Albumin 4.6 (3.5-5.1) g/dL Lipase 44 (23-300) U/L Discharge Plan Discharge Clinical Impression: Dyspnea Patient Disposition: Home, Self-Care Condition: Stable Instructions: Antibiotic Form Patient Language: Cypriot Prescriptions: No Action albuterol sulfate 2.5 mg /3 mL (0.083 %) solution for nebulization 2.5 mg inhalation Q6H pantoprazole 20 mg tablet,delayed release (DR/EC) 20 mg PO QAM gabapentin 600 mg tablet 600 mg PO TID (DME) blood sugar diagnostic Strip See Rx Instructions .Route Rx Instructions: As directed ziprasidone HCl 80 mg capsule 80 mg PO BID Rx Instructions: give with food (meal/snack) amlodipine 5 mg tablet 5 mg PO DAILY Novolin 70/30 U-100 Insulin 100 unit/mL (70-30) Suspension 10 unit SUBCUT BID hydroxyzine pamoate 25 mg Capsule 25 mg PO DAILY Levemir FlexPen 100 unit/mL (3 mL) Insulin Pen 20 unit SUBCUT BID Trelegy Ellipta 200-62.5-25 mcg Blister With Device 1 inh INHALATION DAILY potassium chloride [K-Tab] 20 mEq tablet extended release 20 meq PO BID Qty: 10 0RF Follow-up/Referrals: Chacho,MD Agustin [Primary Care Provider] -
[2024-04-13 00:25] LABS: Troponin I < 0.012 ng/mL (0.000-0.034)
== END 2024-04-13 03:05 | disposition home or self-care (01) ==
PROVIDERS: Emergency Provider Emergency Medicine; PCP Internal Medicine
DX: R06.00 Dyspnea, unspecified (principal); Z79.899 Other long term (current) drug therapy; Z79.4 Long term (current) use of insulin; I45.10 Unspecified right bundle-branch block; R94.31 Abnormal electrocardiogram [ECG] [EKG]
CPT/HCPCS: 36415; 71046; 80053; 83690; 83880; 84484; 85025; 85610; 85730; 93005; 96374; 99284; J3360

== ENCOUNTER 2024-05-14 14:42 | Outpatient (CLI) | payer MEDICARE, MEDICAID, SELFPAY ==
--- NOTE | ~2024-05-14 | CT_ITS ---
EXAMINATION: CT sinus wo con DATE: 05/14/2024 15:07 INDICATION: Chronic sinusitis TECHNIQUE: Computed tomography (CT) of the paranasal sinuses was performed without intravenous contra st. The dose-length product (DLP) was 250.27 mGy-cm. Iterative reconstruction was used. COMPARISON: None FINDINGS: There is normal development and pneumatization of the paranasal sinuses. Rightward bowing o f the osseous nasal septum. The frontal, sphenoid, ethmoid, and maxillary sinuses are clear. The bila teral ostiomeatal complexes are patent. Visualized soft tissues are unremarkable. Trace right mastoid effusion. Bilateral lens replacements. The patient is edentulous. Mild degenerative changes in the b ilateral TMJs. Moderate degenerative change at the atlantodental interval. IMPRESSION: No significant sinus disease detected. Reviewed, dictated and finalized at location [facility]
--- OUTSIDE RECORDS SUMMARY | 2024-05-14 17:30 | XMS_ITS | Clinical Summary ---
Author Organization [facility] Address [address] [place] [address] Care Team Providers Care Rest Room Matron Name Role Phone Agustin Flor Primary Care Provider [phone] Allergies Active Allergy Reactions Criticality Noted Date Comments Aspirin Other (See Comments) 10/27/2022 Chlorthalidone Itching 10/27/2022 Clonazepam Other (See Comments) 10/27/2022 Medications ondansetron (ZOFRAN) 8 MG tablet Take 1 tablet (8 mg total) by mouth every 6 (six) hours as needed for nausea or vomiting. Active Fluticasone-Ume clidin-Vilant (TRELEGY ELLIPTA IN) Inhale 1 puff RT Daily. Dose of Inhaler unknown Active prochlorperazin e (COMPAZINE) 10 MG tabletIndicatio ns:Nausea and Vomiting Take 1 tablet (10 mg total) by mouth every 6 (six) hours as needed for nausea or vomiting Indications: Nausea and Vomiting. Active phosphorus (K PHOS NEUTRAL) 155-852-130 MG tablet Take 1 tablet by mouth in the morning and 1 tablet at noon and 1 tablet in the evening. Take with meals. Active naphazoline-phe niramine (NAPHCON-A) 0.025-0.3 % ophthalmic solution Administer 1 drop into both eyes 4 (four) times a day as needed for irritation (itchy eyes). Active atorvastatin (LIPITOR) 40 MG tablet Take 1 tablet (40 mg total) by mouth nightly. 0 3 Active cholecalciferol (VITAMIN D3) 25 MCG (1000 UT) tablet Take 2 tablets (2,000 Units total) by mouth in the morning. 60 tablet 3 Active fluconazole (DIFLUCAN) 200 MG tablet Take 2 tablets (400 mg total) by mouth in the morning. 0 3 Active gabapentin (NEURONTIN) 100 MG capsule Take 1 capsule (100 mg total) by mouth 3 (three) times a day. 0 3 Active levoFLOXacin (LEVAQUIN) 500 MG tabletIndicatio ns:Prophylaxis, Chronic medical prophylaxis Take 1 tablet (500 mg total) by mouth in the morning. Indications: Preventative Treatment, Chronic medical prophylaxis. 0 3 Active PARoxetine (PAXIL) 40 MG tablet Take 1 tablet (40 mg total) by mouth in the morning. 0 3 Active polyethylene glycol (MIRALAX) 17 g packet Take 17 g by mouth in the morning. 10 each 3 Active primidone (MYSOLINE) 50 MG tablet Take 1 tablet (50 mg total) by mouth nightly. 0 3 Active sulfamethoxazol e-trimethoprim (BACTRIM) 800-160 MG per tabletIndicatio ns:Prophylaxis, Chronic medical prophylaxis Take 1 tablet by mouth 3 (three) times a week Indications: Preventative Treatment, Chronic medical prophylaxis. 0 3 Active thiamine 100 MG tablet Take 1 tablet (100 mg total) by mouth in the morning. 0 3 Active valACYclovir (VALTREX) 500 MG tablet Take 1 tablet (500 mg total) by mouth in the morning and 1 tablet (500 mg total) before bedtime. 0 3 Active ziprasidone (GEODON) 80 MG capsuleIndicati ons:Depression, Mood Disorder Take 1 capsule (80 mg total) by mouth 2 (two) times a day with Breakfast and Dinner Indications: Depression, Mood Disorder. 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 10/27/2022 Cerebellar stroke 10/27/2022 Hyperlipidemia 10/27/2022 Urinary incontinence 10/27/2022 Cerebrovascular accident 10/27/2022 Immunizations Immunization Administration Dates Next Due Pfizer SARS-CoV-2 Vaccinatio n (Ramirez Cap) 10/27/2022(Deferred: Not available - not available) Family History Medical History Relation Name Comments Cancer Father Heart disease Mother Hypertension Mother Relation Name Status Comments Father Mother Social History Tobacco Use Types Packs/Day Years Used Date Smoking Tobacco: Former Cigarettes Smokeless Tobacco: Never Alcohol Use Standard Drinks/Week Comments Yes 0 (1 standard drink = 0.6 oz pur e alcohol) Comments Unknown Sex and Gender Information Value Date Recorded Sex Assigned at Not on file Legal Sex Female 1:31 PM EDT Gender Identity Not on file Sexual Orientation Not on file Last Filed Vital Signs Vital Sign Reading Time Taken Comments Blood Pressure 129/72 11/12/2022 8:16 AM CDT Pulse 91 11/12/2022 8:16 AM CDT Temperature 36.8 C (98.3 F) 11/12/2022 8:16 AM CDT Respiratory Rate 20 11/12/2022 8:16 AM CDT Oxygen Saturation 94% 11/12/2022 8:16 AM CDT Inhaled Oxygen Concentration - - Weight 57.6 kg (127 lb) 10/30/2022 8:00 PM CDT Height 163.8 cm (5' 4.5 ) 10/30/2022 8:00 PM CDT Body Mass Index 21.46 10/30/2022 8:00 PM CDT Plan of Treatment Health Maintenance Due Date Last Done Comments CT Colonography 1958 Colonoscopy 1958 Colorectal Cancer Screening 1958 FIT-DNA (Cologuard) 1958 FIT 1958 FOBT 1958 Sigmoidoscopy 1958 Annual Visit Topic 1959 MMR Vaccines (1 of 1 - Stand anibal series) 1959 DTaP/Tdap/Td Vaccines (1 - Tdap) 1965 Pap Smear 1979 Cervical Cancer Screening 1988 HPV/Cotest 1988 Pneumococcal Vaccine: 65+ Ye ars (1 of 4 - PCV) 2023 HIB Vaccines Aged Out No longer eligi ble based on patient's age to complete this topic HPV Vaccines Aged Out No longer eligi ble based on patient's age to complete this topic Hepatitis A Vaccines Aged Out No long er eligible based on patient's age to complete this topic Hepatitis B Vaccines Aged Out No long er eligible based on patient's age to complete this topic IPV Vaccines Aged Out No longer eligi ble based on patient's age to complete this topic Meningococcal Vaccine Aged Out No lopez mitchel eligible based on patient's age to complete this topic Advance Directives * Full Resuscitation (Latest Code Status on File) Date Activated Date Inactivated Comments 10/27/2022 8:27 PM 11/12/2022 4:08 PM Care Teams Rest Room Matron Relationship Specialty Start Date End Date Agustin Flor [address] [phone] PCP - General 10/28/22
--- OUTSIDE RECORDS SUMMARY | 2024-05-14 17:31 | XMS_ITS | Patient Health Summary ---
Author Organization [facility] Address [address] [place] [address] Care Team Providers Care Funeral Limousine Driver Name Role Phone Agustin Flor MD Primary Care Provider [phone] Shreyas Phillips MD Unavailable Bebe Hernandez PA-C Unavailable [phone] Nanda Rausch RN Unavailable Unavailable Note from [facility],non-owned Affiliates and Associated Physician Practices is amultiple site organization consisting of ambulatory clinics and hospital sitesin [place], [place], [place] and [place]. This disclosure is being madepursuant to the Care Everywhere program and may not contain all information available regarding this patient. Last updated 17.[facility] Allergies * Aspirin(Swelling) * Cefdinir(Itching) * Chlorthalidone(Urticaria) -Medium Criticality * Clonazepam(Unknown) * Hydrochlorothiazide(Itching) Medications * Be aware that medications may not be up to date on this document. Alwaysverify current medications with the patient. * Insulin Pen Needle 31G X 6 MM MISC(Started 10/27/2022) Use 1 Needle as directed 11 refills by 10/27/2023 * vitamin D3 (Cholecalciferol) 25 MCG (1000 UNITS) tablet(Started 10/28/2022) Take 2 (two) tablets by mouth once daily Reasons: Vitamin D Deficiency * thiamine (Vitamin B-1) 100 MG tablet(Started 10/27/2022) Take 1 (one) tablet by mouth once daily * PARoxetine (Paxil) 40 MG tablet(Started 11/22/2022) Take 1 (one) tablet by mouth once daily for 30 days Reasons: Generalized Anxiety Disorder, Major Depressive Disorder * insulin glargine (Lantus/Semglee) 100 units/mL pen(Started 11/21/2022) Inject 12 (twelve) Units subcutaneously at bedtime for 30 days * insulin aspart (NovoLOG FLEXPEN) pen(Started 11/21/2022) Inject 5 (five) Units subcutaneously 3 times daily before meals for 30 days * hydrOXYzine pamoate (Vistaril) 25 MG capsule(Started 07/03/2022) TAKE 1 CAPSULE BY MOUTH EVERY DAY IN THE MORNING * ziprasidone (Geodon) 80 MG capsule Take 1 (one) capsule by mouth at bedtime Hold while on levaquin * albuterol HFA (Proventil; Ventolin; Proair) 108 (90 Base) MCG/ACT inhaler (Started 11/30/2022) * Trelegy Ellipta 100-62.5-25 MCG/ACT(Started 01/24/2023) Inhale 1 (one) puff by mouth once daily * B-D UF III MINI PEN NEEDLES 31G X 5 MM needle(Started 02/23/2023) DIRECTED TO INJECT INSULIN FOUR TIMES DAILY * Lancets (ONETOUCH DELICA PLUS 33G EXTRA FINE LANCET)(Started 02/08/2023) TEST TWICE DAILY * OneTouch Ultra test strip(Started 02/10/2023) TEST BLOOD SUGAR FOUR TIMES DAILY * famotidine (Pepcid) 20 MG tablet Take 0.5 (one-half) tablet by mouth once daily as needed for Heartburn * insulin aspart (NovoLOG) pen Inject 5 (five) Units subcutaneously 3 times daily before meals * insulin glargine (Lantus/Semglee) 100 units/mL pen Inject 12 (twelve) Units subcutaneously at bedtime * PARoxetine (Paxil) 40 MG tablet Take by mouth once daily * pantoprazole EC (Protonix) 20 MG tablet(Started 09/05/2023) Take 2 (two) tablets by mouth once daily * apixaban (Eliquis) 5 MG tablet Take 1 (one) tablet by mouth 2 times daily * terbinafine (LamISIL) 250 MG tablet Take 1 (one) tablet by mouth once daily * senna (Senokot) 8.6 MG tablet Take by mouth once daily * Docusate Calcium (STOOL SOFTENER PO) Take by mouth once daily * Calcium Carbonate (CALCIUM 500 PO) Take by mouth once daily * Multiple Vitamins-Minerals (Hair Skin and Nails Formula) TABS Take by mouth once daily * POTASSIUM PO Take 1 tablet by mouth as directed * doxycycline hyclate (Vibramycin) 100 MG capsule(Started 12/27/2023) Take 1 (one) capsule by mouth every 12 hours * amLODIPine (Norvasc) 10 MG tablet Take 1 (one) tablet by mouth once daily * estradiol (Estrace) 0.1 MG/GM vaginal cream(Started 02/02/2024) Insert 1 g into the vagina at bedtime * atorvastatin (Lipitor) 40 MG tablet(Started 03/01/2024) Take 1 (one) tablet by mouth at bedtime 2 refills by 03/01/2025 * gabapentin (Neurontin) 300 MG capsule(Started 03/12/2024) Take 1 (one) capsule by mouth 3 times daily 1 refill by 03/12/2025 Ended Medications* Niacin (TRUE VITAMIN B3 PO)(Discontinued) Take 2 tablets by mouth as directed Active Problems Problem Noted Date Diagnosed Date Talipes equinovarus of both lower extremities Bilateral foot pain 02/03/2023 Cryptogenic stroke 12/17/2022 Foot drop, bilateral 11/13/2022 Peripheral neuropathy 11/13/2022 Diffuse large B-cell lymphoma, unspecified body region 11/12/2022 Urinary retention 10/22/2022 Urinary incontinence, unspecified type Weight loss, non-intentional 10/15/2022 Asthma 10/14/2022 Hyperglycemia, drug-induced 09/03/2022 Normocytic anemia 09/03/2022 Neuropathy 09/02/2022 Anxiety 09/02/2022 Depression 09/02/2022 B-cell lymphoma, unspecified B-cell lymphoma type, unspecified body region 08/12/2022 Type 2 diabetes mellitus, wi th long-term current use of insulin 07/24/2022 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 07/16/2022 Cancer Staging:Clinical stage from 06/08/2022:Stage III(Diffuse large B-cell lymphoma) - Signed by Shreyas Phillips MD on 11/24/2022 Clinical stage from 10/15/2022:Stage III(Diffuse large B-cell lymphoma) - Signed by Shreyas Phillips MD on 10/15/2022 Hypertension 07/16/2022 Night sweats 07/13/2022 Sleep apnea 05/17/2018 08/13/2022 CAD (coronary artery disease) 03/28/2018 Resolved Problems Problem Noted Date Diagnosed Date Resolved Date Altered mental status, unspe cified altered mental status type 11/18/2022 11/21/2022 Hodgkin lymphoma 07/15/2022 07/16/2022 History of CAD (coronary artery disease) 07/13/2022 09/03/2022 Chronic obstructive pulmonary disease 11/09/2019 09/03/2022 Immunizations * COVID PFIZER BIVALENT 12Y+ 30mcg/0.3ML(Given 01/21/2022) * Covid Pfizer primary monovalent 12+ yr 0.3mL Purple cap(Given 01/21/2022, 12/28/2020) * FLU VACCINE QUAD IIV4 SPLIT 0.25 ML IM(Given 01/25/2020, 01/17/2019) * INFLUENZA J1I4-37, HISTORIC VACCINE(Given 01/21/2022) * INFLUENZA VACCINE(Given 12/26/2016, 03/28/2014) * INFLUENZA VACCINE, CELL CULTURE, QUADR. (FLUCELVAX QUADRIVALENT; 6MO+) (CCIIV4)(Given 01/21/2022, 01/20/2017) * INFLUENZA VACCINE, QUADR. (AFLURIA, FLUZONE QUADRIVALENT; 6MO+) (IIV4)(Given 01/01/2019, 02/10/2018, 12/08/2015) * INFLUENZA VACCINE, QUADR. (FLUZONE; FLULAVAL; FLUARIX; AFLURIA QUADRIVALENT; 6MO+), 0.5 ML (IIV4)(Given 02/09/2023, 01/30/2021, 01/25/2021, 01/24/2020) * INFLUENZA VACCINE, TRIV. (FLUZONE; FLULAVAL; FLUARIX; AFLURIA TRIVALENT; 6MO+), 0.5 ML (IIV3)(Given 12/26/2014) * PNEUMOCOCCAL PCV20 CONJ VAC IM(Given 01/21/2022) * Pneumococcal Pcv13 Conj(Given 12/26/2014) Social History Tobacco Use Types Packs/Day Years Used Date Smoking Tobacco: Former Cigarettes 1.5 35 0 08/14/1972 - 08/15/2007 Smokeless Tobacco: Never Tobacco Cessation:Counseling Given: Not Answered Alcohol Use Standard Drinks/Week Comments Never 0 [...] care, and heating? Not very hard 11/20/2022 [facility] - Occupational Stress [...] place to sleep or slept in a [place] health care facility (including now)? No 11/20/2022 Sex and Gender Information Value Date Recorded Sex Assigned at Not on file Gender Identity Female 08/19/2023 1:35 PM CDT Sexual Orientation Not on file Last Filed Vital Signs Vital Sign Reading Time Taken Comments Blood Pressure 140/83 04/26/2024 8:50 AM PHYSICAL SCIENCE AIDE Pulse 68 04/26/2024 8:50 AM PHYSICAL SCIENCE AIDE Temperature 36.6 C (97.8 F) 04/26/2024 8:31 AM PHYSICAL SCIENCE AIDE Respiratory Rate 12 04/26/2024 8:50 AM PHYSICAL SCIENCE AIDE Oxygen Saturation 94% 04/26/2024 8:50 AM PHYSICAL SCIENCE AIDE Inhaled Oxygen Concentration - - Weight 62.6 kg (138 lb) 04/26/2024 6:18 AM PHYSICAL SCIENCE AIDE Height 163.8 cm (5' 4.5 ) 04/26/2024 6:18 AM PHYSICAL SCIENCE AIDE Body Mass Index 23.32 04/26/2024 6:18 AM PHYSICAL SCIENCE AIDE Medical Devices Implanted Type Area Visual Inspector Device Identifier Shelf Expiration Date Model / Serial / Lot Port Implinfn Powerport Clrvu Argd Kika Implanted:Qty: 1 on 07/15/2022 at [facility] Right: Chest [employer] 11/26/2023 [id number] / / [id number] Description:RIJ by Milena Spivey inton Procedures * IR CENTRAL LINE REMOVAL(Performed 04/26/2024) Performed for B-cell lymphoma, unspecified B-cell lymphoma type, unspecified body region (HCC) * GLUCOSE - POINT OF CARE(Performed 04/26/2024) * PT-INR [facility](Performed 04/26/2024) Performed for Preop testing * LDH BLOOD(Performed 03/16/2024) 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) * CBC W AUTO DIFFERENTIAL(Performed 03/16/2024) 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) * COMPREHENSIVE METABOLIC PANEL(Performed 03/16/2024) 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) * CA FNA BX W US GDN 1ST LES(Performed 02/15/2024) Performed for Thyroid nodule * FINE NEEDLE ASPIRATION (STL)(Performed 02/15/2024) Performed for Thyroid nodule * PATHOLOGY/CYTOLOGY REPORT ORDER(Performed 02/15/2024) * CA FNA BX W US GDN 1ST LES(Performed 01/06/2024) Performed for Thyroid nodule * FINE NEEDLE ASPIRATION (STL)(Performed 01/06/2024) Performed for Thyroid nodule * T4 FREE(Performed 12/21/2023) Performed for Thyroid nodule * TSH(Performed 12/21/2023) Performed for Thyroid nodule * LDH BLOOD(Performed 12/21/2023) Performed for History of non-Hodgkin's lymphoma * CBC W AUTO DIFFERENTIAL(Performed 12/21/2023) Performed for History of non-Hodgkin's lymphoma * MAGNESIUM BLOOD(Performed 12/21/2023) Performed for History of non-Hodgkin's lymphoma * COMPREHENSIVE METABOLIC PANEL(Performed 12/21/2023) Performed for History of non-Hodgkin's lymphoma * PHOSPHORUS BLOOD(Performed 12/21/2023) Performed for History of non-Hodgkin's lymphoma * CA FNA BX W US GDN 1ST LES(Performed 12/16/2023) Performed for Thyroid nodule * FINE NEEDLE ASPIRATION (STL)(Performed 12/16/2023) Performed for Thyroid nodule * US THYROID(Performed 12/06/2023) Performed for Thyroid nodule * CT CHEST ABDOMEN PELVIS W CONT(Performed 11/29/2023) Performed for Diffuse large B-cell lymphoma, unspecified body region (HCC) * CREATININE - POCT INTERFACED(Performed 11/29/2023) * XR ANKLE LEFT 3VW OR MORE(Performed 10/13/2023) Performed for Bilateral foot pain * XR FOOT LEFT 3VW OR MORE(Performed 10/13/2023) Performed for Bilateral foot pain * LDH BLOOD(Performed 09/21/2023) 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) * CBC W AUTO DIFFERENTIAL(Performed 09/21/2023) 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) * MAGNESIUM BLOOD(Performed 09/21/2023) 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) * COMPREHENSIVE METABOLIC PANEL(Performed 09/21/2023) 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) * PHOSPHORUS BLOOD(Performed 09/21/2023) 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) * CT CHEST WO CONTRAST(Performed 09/02/2023) Performed for B-cell lymphoma, unspecified B-cell lymphoma type, unspecified body region (HCC) * LIPID PROFILE(Performed 06/03/2023) Performed for B-cell lymphoma, unspecified B-cell lymphoma type, unspecified body region (HCC) * LDH BLOOD(Performed 06/03/2023) Performed for B-cell lymphoma, unspecified B-cell lymphoma type, unspecified body region (HCC) * COMPREHENSIVE METABOLIC PANEL(Performed 06/03/2023) Performed for B-cell lymphoma, unspecified B-cell lymphoma type, unspecified body region (HCC) * CBC W AUTO DIFFERENTIAL(Performed 06/03/2023) Performed for B-cell lymphoma, unspecified B-cell lymphoma type, unspecified body region (HCC) * URIC ACID BLOOD(Performed 06/03/2023) Performed for Non-Hodgkin's lymphoma, unspecified body region, unspecified non- Hodgkin lymphoma type (HCC) * PET CT WHOLE BODY(Performed 05/27/2023) Performed for B-cell lymphoma, unspecified B-cell lymphoma type, unspecified body region (HCC) * GLUCOSE SCREEN - POCT (IP) [facility](Performed 05/27/2023) * LDH BLOOD(Performed 02/25/2023) Performed for B-cell lymphoma, unspecified B-cell lymphoma type, unspecified body region (HCC) * COMPREHENSIVE METABOLIC PANEL(Performed 02/25/2023) Performed for B-cell lymphoma, unspecified B-cell lymphoma type, unspecified body region (HCC) * CBC W AUTO DIFFERENTIAL(Performed 02/25/2023) Performed for B-cell lymphoma, unspecified B-cell lymphoma type, unspecified body region (HCC) * MAGNESIUM BLOOD(Performed 02/03/2023) Performed for Non-Hodgkin's lymphoma, unspecified body region, unspecified non- Hodgkin lymphoma type (HCC) * PHOSPHORUS BLOOD(Performed 02/03/2023) Performed for Non-Hodgkin's lymphoma, unspecified body region, unspecified non- Hodgkin lymphoma type (HCC) * URIC ACID BLOOD(Performed 02/03/2023) Performed for Non-Hodgkin's lymphoma, unspecified body region, unspecified non- Hodgkin lymphoma type (HCC) * LDH BLOOD(Performed 02/03/2023) Performed for Non-Hodgkin's lymphoma, unspecified body region, unspecified non- Hodgkin lymphoma type (HCC) * COMPREHENSIVE METABOLIC PANEL(Performed 02/03/2023) Performed for Non-Hodgkin's lymphoma, unspecified body region, unspecified non- Hodgkin lymphoma type (HCC) * CBC W AUTO DIFFERENTIAL(Performed 02/03/2023) Performed for Non-Hodgkin's lymphoma, unspecified body region, unspecified non- Hodgkin lymphoma type (HCC) * HEMOGLOBIN A1C(Performed 02/03/2023) Performed for Bilateral foot pain * TYPE + SCREEN PANEL(Performed 02/03/2023) Performed for Non-Hodgkin's lymphoma, unspecified body region, unspecified non- Hodgkin lymphoma type (HCC), Encounter for blood transfusion * XR ANKLE LEFT 3VW OR MORE(Performed 02/03/2023) Performed for Bilateral foot pain * XR ANKLE RIGHT 3VW OR MORE(Performed 02/03/2023) Performed for Bilateral foot pain * XR FOOT LEFT WT BEARING 3VW(Performed 02/03/2023) Performed for Bilateral foot pain * XR FOOT RIGHT WT BEARING 3VW(Performed 02/03/2023) Performed for Bilateral foot pain * GLUCOSE - POINT OF CARE(Performed 01/28/2023) * TYPE + SCREEN PANEL(Performed 01/28/2023) Performed for Non-Hodgkin's lymphoma, unspecified body region, unspecified non- Hodgkin lymphoma type (HCC), Encounter for blood transfusion * MAGNESIUM BLOOD(Performed 01/28/2023) Performed for Non-Hodgkin's lymphoma, unspecified body region, unspecified non- Hodgkin lymphoma type (HCC) * PHOSPHORUS BLOOD(Performed 01/28/2023) Performed for Non-Hodgkin's lymphoma, unspecified body region, unspecified non- Hodgkin lymphoma type (HCC) * URIC ACID BLOOD(Performed 01/28/2023) Performed for Non-Hodgkin's lymphoma, unspecified body region, unspecified non- Hodgkin lymphoma type (HCC) * LDH BLOOD(Performed 01/28/2023) Performed for Non-Hodgkin's lymphoma, unspecified body region, unspecified non- Hodgkin lymphoma type (HCC) * URIC ACID BLOOD(Performed 01/28/2023) Performed for Diffuse large B-cell lymphoma, unspecified body region (HCC) * LDH BLOOD(Performed 01/28/2023) Performed for Diffuse large B-cell lymphoma, unspecified body region (HCC) * COMPREHENSIVE METABOLIC PANEL(Performed 01/28/2023) Performed for Diffuse large B-cell lymphoma, unspecified body region (HCC) * CBC W AUTO DIFFERENTIAL(Performed 01/28/2023) Performed for Diffuse large B-cell lymphoma, unspecified body region (HCC) * TYPE + SCREEN PANEL(Performed 12/31/2022) Performed for Non-Hodgkin's lymphoma, unspecified body region, unspecified non- Hodgkin lymphoma type (HCC), Encounter for blood transfusion * DIFFERENTIAL MANUAL(Performed 12/31/2022) Performed for Non-Hodgkin's lymphoma, unspecified body region, unspecified non- Hodgkin lymphoma type (HCC) * MAGNESIUM BLOOD(Performed 12/31/2022) Performed for Non-Hodgkin's lymphoma, unspecified body region, unspecified non- Hodgkin lymphoma type (HCC) * PHOSPHORUS BLOOD(Performed 12/31/2022) Performed for Non-Hodgkin's lymphoma, unspecified body region, unspecified non- Hodgkin lymphoma type (HCC) * URIC ACID BLOOD(Performed 12/31/2022) Performed for Non-Hodgkin's lymphoma, unspecified body region, unspecified non- Hodgkin lymphoma type (HCC) * LDH BLOOD(Performed 12/31/2022) Performed for Non-Hodgkin's lymphoma, unspecified body region, unspecified non- Hodgkin lymphoma type (HCC) * COMPREHENSIVE METABOLIC PANEL(Performed 12/31/2022) Performed for Non-Hodgkin's lymphoma, unspecified body region, unspecified non- Hodgkin lymphoma type (HCC) * CBC W AUTO DIFFERENTIAL(Performed 12/31/2022) Performed for Non-Hodgkin's lymphoma, unspecified body region, unspecified non- Hodgkin lymphoma type (HCC) * CARDIAC EKG ORDER(Performed 12/29/2022) * EKG 12-LEAD(Performed 12/28/2022) Performed for Idiopathic hypotension * TROPONIN-I HIGH SENSITIVE REFLEX 1HOUR(Performed 12/28/2022) * URINALYSIS REFLEX TO MICROSCOPIC NO CULTURE(Performed 12/28/2022) * T4 FREE(Performed 12/28/2022) * DIFFERENTIAL MANUAL(Performed 12/28/2022) * LACTIC ACID BLOOD REFLEX TO REPEAT(Performed 12/28/2022) * TSH REFLEX FREE T4(Performed 12/28/2022) * B-TYPE NATRIURETIC PEPTIDE(Performed 12/28/2022) * TROPONIN-I HIGH SENSITIVE BASELINE + 1HR(Performed 12/28/2022) * PT-INR [facility](Performed 12/28/2022) * COMPREHENSIVE METABOLIC PANEL(Performed 12/28/2022) * CBC W AUTO DIFFERENTIAL(Performed 12/28/2022) * CARDIAC EKG ORDER(Performed 12/20/2022) * URINALYSIS REFLEX MICROSCOPIC REFLEX CULTURE(Performed 12/17/2022) * GLUCOSE - POINT OF CARE(Performed 12/17/2022) * TROPONIN-I HIGH SENSITIVE REFLEX 1HOUR(Performed 12/17/2022) * CT HEAD WO CONTRAST(Performed 12/17/2022) Performed for Fatigue, unspecified type * TROPONIN-I HIGH SENSITIVE BASELINE + 1HR(Performed 12/17/2022) * LACTIC ACID BLOOD REFLEX TO REPEAT(Performed 12/17/2022) * COMPREHENSIVE METABOLIC PANEL(Performed 12/17/2022) * CBC W AUTO DIFFERENTIAL(Performed 12/17/2022) * GLUCOSE - POINT OF CARE(Performed 12/17/2022) * XR CHEST 1VW PORTABLE(Performed 12/17/2022) Performed for Fatigue, unspecified type * EKG 12-LEAD(Performed 12/17/2022) Performed for Fatigue, unspecified type * PET CT WHOLE BODY(Performed 12/03/2022) Performed for B-cell lymphoma, unspecified B-cell lymphoma type, unspecified body region (HCC) * TYPE + SCREEN PANEL(Performed 12/03/2022) Performed for Non-Hodgkin's lymphoma, unspecified body region, unspecified non- Hodgkin lymphoma type (HCC), Encounter for blood transfusion * MANUAL DIFFERENTIAL REVIEWED(Performed 12/03/2022) Performed for Non-Hodgkin's lymphoma, unspecified body region, unspecified non- Hodgkin lymphoma type (HCC) * DIFFERENTIAL MANUAL(Performed 12/03/2022) Performed for Non-Hodgkin's lymphoma, unspecified body region, unspecified non- Hodgkin lymphoma type (HCC) * MAGNESIUM BLOOD(Performed 12/03/2022) Performed for Non-Hodgkin's lymphoma, unspecified body region, unspecified non- Hodgkin lymphoma type (HCC) * PHOSPHORUS BLOOD(Performed 12/03/2022) Performed for Non-Hodgkin's lymphoma, unspecified body region, unspecified non- Hodgkin lymphoma type (HCC) * URIC ACID BLOOD(Performed 12/03/2022) Performed for Non-Hodgkin's lymphoma, unspecified body region, unspecified non- Hodgkin lymphoma type (HCC) * LDH BLOOD(Performed 12/03/2022) Performed for Non-Hodgkin's lymphoma, unspecified body region, unspecified non- Hodgkin lymphoma type (HCC) * COMPREHENSIVE METABOLIC PANEL(Performed 12/03/2022) Performed for Non-Hodgkin's lymphoma, unspecified body region, unspecified non- Hodgkin lymphoma type (HCC) * CBC W AUTO DIFFERENTIAL(Performed 12/03/2022) Performed for Non-Hodgkin's lymphoma, unspecified body region, unspecified non- Hodgkin lymphoma type (HCC) * GLUCOSE SCREEN - POCT (IP) [facility](Performed 12/03/2022) * TYPE + SCREEN PANEL(Performed 12/01/2022) Performed for Non-Hodgkin's lymphoma, unspecified body region, unspecified non- Hodgkin lymphoma type (HCC), Encounter for blood transfusion * MANUAL DIFFERENTIAL REVIEWED(Performed 12/01/2022) Performed for Non-Hodgkin's lymphoma, unspecified body region, unspecified non- Hodgkin lymphoma type (HCC) * DIFFERENTIAL MANUAL(Performed 12/01/2022) Performed for Non-Hodgkin's lymphoma, unspecified body region, unspecified non- Hodgkin lymphoma type (HCC) * MAGNESIUM BLOOD(Performed 12/01/2022) Performed for Non-Hodgkin's lymphoma, unspecified body region, unspecified non- Hodgkin lymphoma type (HCC) * PHOSPHORUS BLOOD(Performed 12/01/2022) Performed for Non-Hodgkin's lymphoma, unspecified body region, unspecified non- Hodgkin lymphoma type (HCC) * URIC ACID BLOOD(Performed 12/01/2022) Performed for Non-Hodgkin's lymphoma, unspecified body region, unspecified non- Hodgkin lymphoma type (HCC) * LDH BLOOD(Performed 12/01/2022) Performed for Non-Hodgkin's lymphoma, unspecified body region, unspecified non- Hodgkin lymphoma type (HCC) * COMPREHENSIVE METABOLIC PANEL(Performed 12/01/2022) Performed for Non-Hodgkin's lymphoma, unspecified body region, unspecified non- Hodgkin lymphoma type (HCC) * CBC W AUTO DIFFERENTIAL(Performed 12/01/2022) Performed for Non-Hodgkin's lymphoma, unspecified body region, unspecified non- Hodgkin lymphoma type (HCC) * TYPE + SCREEN PANEL(Performed 11/26/2022) Performed for Non-Hodgkin's lymphoma, unspecified body region, unspecified non- Hodgkin lymphoma type (HCC), Encounter for blood transfusion * MAGNESIUM BLOOD(Performed 11/26/2022) Performed for Non-Hodgkin's lymphoma, unspecified body region, unspecified non- Hodgkin lymphoma type (HCC) * PHOSPHORUS BLOOD(Performed 11/26/2022) Performed for Non-Hodgkin's lymphoma, unspecified body region, unspecified non- Hodgkin lymphoma type (HCC) * URIC ACID BLOOD(Performed 11/26/2022) Performed for Non-Hodgkin's lymphoma, unspecified body region, unspecified non- Hodgkin lymphoma type (HCC) * LDH BLOOD(Performed 11/26/2022) Performed for Non-Hodgkin's lymphoma, unspecified body region, unspecified non- Hodgkin lymphoma type (HCC) * COMPREHENSIVE METABOLIC PANEL(Performed 11/26/2022) Performed for Non-Hodgkin's lymphoma, unspecified body region, unspecified non- Hodgkin lymphoma type (HCC) * PATHOLOGY PERIPHERAL SMEAR REVIEW(Performed 11/24/2022) Performed for Non-Hodgkin's lymphoma, unspecified body region, unspecified non- Hodgkin lymphoma type (HCC) * TYPE + SCREEN PANEL(Performed 11/24/2022) Performed for Non-Hodgkin's lymphoma, unspecified body region, unspecified non- Hodgkin lymphoma type (HCC), Encounter for blood transfusion * DIFFERENTIAL MANUAL(Performed 11/24/2022) Performed for Non-Hodgkin's lymphoma, unspecified body region, unspecified non- Hodgkin lymphoma type (HCC) * MAGNESIUM BLOOD(Performed 11/24/2022) Performed for Non-Hodgkin's lymphoma, unspecified body region, unspecified non- Hodgkin lymphoma type (HCC) * PHOSPHORUS BLOOD(Performed 11/24/2022) Performed for Non-Hodgkin's lymphoma, unspecified body region, unspecified non- Hodgkin lymphoma type (HCC) * URIC ACID BLOOD(Performed 11/24/2022) Performed for Non-Hodgkin's lymphoma, unspecified body region, unspecified non- Hodgkin lymphoma type (HCC) * LDH BLOOD(Performed 11/24/2022) Performed for Non-Hodgkin's lymphoma, unspecified body region, unspecified non- Hodgkin lymphoma type (HCC) * COMPREHENSIVE METABOLIC PANEL(Performed 11/24/2022) Performed for Non-Hodgkin's lymphoma, unspecified body region, unspecified non- Hodgkin lymphoma type (HCC) * CBC W AUTO DIFFERENTIAL(Performed 11/24/2022) Performed for Non-Hodgkin's lymphoma, unspecified body region, unspecified non- Hodgkin lymphoma type (HCC) * GLUCOSE - POINT OF CARE(Performed 11/22/2022) * GLUCOSE - POINT OF CARE(Performed 11/22/2022) * GLUCOSE - POINT OF CARE(Performed 11/21/2022) * GLUCOSE - POINT OF CARE(Performed 11/21/2022) * GLUCOSE - POINT OF CARE(Performed 11/21/2022) * GLUCOSE - POINT OF CARE(Performed 11/20/2022) * GLUCOSE - POINT OF CARE(Performed 11/20/2022) * GLUCOSE - POINT OF CARE(Performed 11/20/2022) * GLUCOSE - POINT OF CARE(Performed 11/20/2022) * GLUCOSE - POINT OF CARE(Performed 11/19/2022) * CARDIAC EKG ORDER(Performed 11/19/2022) * GLUCOSE - POINT OF CARE(Performed 11/19/2022) * GLUCOSE - POINT OF CARE(Performed 11/19/2022) * RENAL FUNCTION PANEL(Performed 11/19/2022) * MAGNESIUM BLOOD(Performed 11/19/2022) * CBC W/O DIFFERENTIAL(Performed 11/19/2022) * URINALYSIS REFLEX TO MICROSCOPIC NO CULTURE(Performed 11/19/2022) * CT HEAD WO CONTRAST(Performed 11/18/2022) Performed for Altered mental status, unspecified altered mental status type * LACTIC ACID BLOOD(Performed 11/18/2022) * TROPONIN-I HIGH SENSITIVE REFLEX 1HOUR(Performed 11/18/2022) * EKG 12-LEAD(Performed 11/18/2022) Performed for Altered mental status, unspecified altered mental status type * CULTURE BLOOD(Performed 11/18/2022) * XR CHEST 1VW PORTABLE(Performed 11/18/2022) Performed for Altered mental status, unspecified altered mental status type * RETIC COUNT(Performed 11/18/2022) * HAPTOGLOBIN(Performed 11/18/2022) * PHOSPHORUS BLOOD(Performed 11/18/2022) * URIC ACID BLOOD(Performed 11/18/2022) * LDH BLOOD(Performed 11/18/2022) * CALCIUM IONIZED WHOLE BLOOD(Performed 11/18/2022) * TROPONIN-I HIGH SENSITIVE BASELINE + 1HR(Performed 11/18/2022) * MAGNESIUM BLOOD(Performed 11/18/2022) * COMPREHENSIVE METABOLIC PANEL(Performed 11/18/2022) * CULTURE BLOOD(Performed 11/18/2022) * TYPE + SCREEN PANEL(Performed 11/18/2022) * DIFFERENTIAL MANUAL(Performed 11/18/2022) Performed for Non-Hodgkin's lymphoma, unspecified body region, unspecified non- Hodgkin lymphoma type (HCC) * MAGNESIUM BLOOD(Performed 11/18/2022) Performed for Non-Hodgkin's lymphoma, unspecified body region, unspecified non- Hodgkin lymphoma type (HCC) * PHOSPHORUS BLOOD(Performed 11/18/2022) Performed for Non-Hodgkin's lymphoma, unspecified body region, unspecified non- Hodgkin lymphoma type (HCC) * LDH BLOOD(Performed 11/18/2022) Performed for Non-Hodgkin's lymphoma, unspecified body region, unspecified non- Hodgkin lymphoma type (HCC) * COMPREHENSIVE METABOLIC PANEL(Performed 11/18/2022) Performed for Non-Hodgkin's lymphoma, unspecified body region, unspecified non- Hodgkin lymphoma type (HCC) * CBC W AUTO DIFFERENTIAL(Performed 11/18/2022) Performed for Non-Hodgkin's lymphoma, unspecified body region, unspecified non- Hodgkin lymphoma type (HCC) * LACTIC ACID BLOOD(Performed 11/18/2022) Performed for Diffuse large B-cell lymphoma, unspecified body region (HCC) * GLUCOSE - POINT OF CARE(Performed 11/18/2022) * GLUCOSE - POINT OF CARE(Performed 11/17/2022) * RENAL FUNCTION PANEL(Performed 11/16/2022) * MAGNESIUM BLOOD(Performed 11/16/2022) * CBC W AUTO DIFFERENTIAL(Performed 11/16/2022) * GLUCOSE - POINT OF CARE(Performed 11/16/2022) * GLUCOSE - POINT OF CARE(Performed 11/16/2022) * GLUCOSE - POINT OF CARE(Performed 11/16/2022) * GLUCOSE - POINT OF CARE(Performed 11/16/2022) * RENAL FUNCTION PANEL(Performed 11/15/2022) * MAGNESIUM BLOOD(Performed 11/15/2022) * CBC W AUTO DIFFERENTIAL(Performed 11/15/2022) * GLUCOSE - POINT OF CARE(Performed 11/15/2022) * GLUCOSE - POINT OF CARE(Performed 11/15/2022) * GLUCOSE - POINT OF CARE(Performed 11/15/2022) * GLUCOSE - POINT OF CARE(Performed 11/15/2022) * RENAL FUNCTION PANEL(Performed 11/14/2022) * MAGNESIUM BLOOD(Performed 11/14/2022) * CBC W AUTO DIFFERENTIAL(Performed 11/14/2022) * GLUCOSE - POINT OF CARE(Performed 11/14/2022) * GLUCOSE - POINT OF CARE(Performed 11/14/2022) * GLUCOSE - POINT OF CARE(Performed 11/14/2022) * GLUCOSE - POINT OF CARE(Performed 11/14/2022) * RENAL FUNCTION PANEL(Performed 11/13/2022) * MAGNESIUM BLOOD(Performed 11/13/2022) * CBC W AUTO DIFFERENTIAL(Performed 11/13/2022) * GLUCOSE - POINT OF CARE(Performed 11/13/2022) * GLUCOSE - POINT OF CARE(Performed 11/13/2022) * GLUCOSE - POINT OF CARE(Performed 11/13/2022) * GLUCOSE - POINT OF CARE(Performed 11/13/2022) * RENAL FUNCTION PANEL(Performed 11/13/2022) * MAGNESIUM BLOOD(Performed 11/13/2022) * CBC W AUTO DIFFERENTIAL(Performed 11/13/2022) * GLUCOSE - POINT OF CARE(Performed 11/12/2022) * TYPE + SCREEN PANEL(Performed 11/12/2022) Performed for Non-Hodgkin's lymphoma, unspecified body region, unspecified non- Hodgkin lymphoma type (HCC), Encounter for blood transfusion * RBC MORPHOLOGY(Performed 11/12/2022) Performed for Non-Hodgkin's lymphoma, unspecified body region, unspecified non- Hodgkin lymphoma type (HCC) * MAGNESIUM BLOOD(Performed 11/12/2022) Performed for Non-Hodgkin's lymphoma, unspecified body region, unspecified non- Hodgkin lymphoma type (HCC) * PHOSPHORUS BLOOD(Performed 11/12/2022) Performed for Non-Hodgkin's lymphoma, unspecified body region, unspecified non- Hodgkin lymphoma type (HCC) * URIC ACID BLOOD(Performed 11/12/2022) Performed for Non-Hodgkin's lymphoma, unspecified body region, unspecified non- Hodgkin lymphoma type (HCC) * LDH BLOOD(Performed 11/12/2022) Performed for Non-Hodgkin's lymphoma, unspecified body region, unspecified non- Hodgkin lymphoma type (HCC) * COMPREHENSIVE METABOLIC PANEL(Performed 11/12/2022) Performed for Non-Hodgkin's lymphoma, unspecified body region, unspecified non- Hodgkin lymphoma type (HCC) * CBC W AUTO DIFFERENTIAL(Performed 11/12/2022) Performed for Non-Hodgkin's lymphoma, unspecified body region, unspecified non- Hodgkin lymphoma type (HCC) * SLIDE SCAN HEMATOLOGY(Performed 11/11/2022) * CBC W/O DIFFERENTIAL(Performed 11/11/2022) * BASIC METABOLIC PANEL (CALCIUM TOTAL)(Performed 11/11/2022) * SLIDE SCAN HEMATOLOGY(Performed 11/08/2022) * BASIC METABOLIC PANEL (CALCIUM TOTAL)(Performed 11/08/2022) * CBC W/O DIFFERENTIAL(Performed 11/08/2022) * BASIC METABOLIC PANEL (CALCIUM TOTAL)(Performed 11/04/2022) * CBC W/O DIFFERENTIAL(Performed 11/04/2022) * BASIC METABOLIC PANEL (CALCIUM TOTAL)(Performed 11/01/2022) * CBC W/O DIFFERENTIAL(Performed 11/01/2022) * BASIC METABOLIC PANEL (CALCIUM TOTAL)(Performed 10/28/2022) * CBC W/O DIFFERENTIAL(Performed 10/28/2022) * GLUCOSE - POINT OF CARE(Performed 10/27/2022) * GLUCOSE - POINT OF CARE(Performed 10/27/2022) * GLUCOSE - POINT OF CARE(Performed 10/27/2022) * GLUCOSE - POINT OF CARE(Performed 10/27/2022) * DIFFERENTIAL MANUAL(Performed 10/27/2022) * MAGNESIUM BLOOD(Performed 10/27/2022) * RENAL FUNCTION PANEL(Performed 10/27/2022) * CBC W AUTO DIFFERENTIAL(Performed 10/27/2022) * GLUCOSE - POINT OF CARE(Performed 10/26/2022) * GLUCOSE - POINT OF CARE(Performed 10/26/2022) * GLUCOSE - POINT OF CARE(Performed 10/26/2022) * ECHO COMPLETE W BUBBLE STUDY(Performed 10/26/2022) Performed for Lesion of cerebellum * GLUCOSE - POINT OF CARE(Performed 10/26/2022) * DIFFERENTIAL MANUAL(Performed 10/26/2022) * MAGNESIUM BLOOD(Performed 10/26/2022) * RENAL FUNCTION PANEL(Performed 10/26/2022) * CBC W AUTO DIFFERENTIAL(Performed 10/26/2022) * CT ANGIO BRAIN AND NECK(Performed 10/25/2022) Performed for Lesion of cerebellum * GLUCOSE - POINT OF CARE(Performed 10/25/2022) * GLUCOSE - POINT OF CARE(Performed 10/25/2022) * GLUCOSE - POINT OF CARE(Performed 10/25/2022) * GLUCOSE - POINT OF CARE(Performed 10/25/2022) * DIFFERENTIAL MANUAL(Performed 10/25/2022) * MAGNESIUM BLOOD(Performed 10/25/2022) * RENAL FUNCTION PANEL(Performed 10/25/2022) * CBC W AUTO DIFFERENTIAL(Performed 10/25/2022) * GLUCOSE - POINT OF CARE(Performed 10/25/2022) * GLUCOSE - POINT OF CARE(Performed 10/24/2022) * GLUCOSE - POINT OF CARE(Performed 10/24/2022) * GLUCOSE - POINT OF CARE(Performed 10/24/2022) * MRI BRAIN WWO CONTRAST(Performed 10/24/2022) Performed for Weakness of both legs, Urinary retention * GLUCOSE - POINT OF CARE(Performed 10/24/2022) * GLUCOSE - POINT OF CARE(Performed 10/24/2022) * ZINC BLOOD(Performed 10/24/2022) * COPPER BLOOD(Performed 10/24/2022) * VITAMIN E(Performed 10/24/2022) * HOMOCYSTEINE BLOOD QUANTITATIVE(Performed 10/24/2022) * METHYLMALONIC ACID BLOOD(Performed 10/24/2022) * VITAMIN B12(Performed 10/24/2022) * FOLATE(Performed 10/24/2022) * VITAMIN B6(Performed 10/24/2022) * VITAMIN B1(Performed 10/24/2022) * T4 FREE(Performed 10/24/2022) * VITAMIN D 25-HYDROXY(Performed 10/24/2022) * TSH REFLEX FREE T4(Performed 10/24/2022) * DIFFERENTIAL MANUAL(Performed 10/24/2022) * MAGNESIUM BLOOD(Performed 10/24/2022) * RENAL FUNCTION PANEL(Performed 10/24/2022) * CBC W AUTO DIFFERENTIAL(Performed 10/24/2022) * GLUCOSE - POINT OF CARE(Performed 10/23/2022) * GLUCOSE - POINT OF CARE(Performed 10/23/2022) * CBC W/O DIFFERENTIAL(Performed 10/23/2022) * GLUCOSE - POINT OF CARE(Performed 10/23/2022) * TRANSFUSE RED BLOOD CELL LEUKOREDUCED UNIT(S)(Performed 10/23/2022) * PREPARE RBC LEUKOREDUCED UNIT(Performed 10/23/2022) * TYPE + SCREEN PANEL(Performed 10/23/2022) * GLUCOSE - POINT OF CARE(Performed 10/23/2022) * MRI LUMBAR SPINE WWO CONTRAST(Performed 10/23/2022) Performed for Urinary incontinence, unspecified type, B-cell lymphoma, unspecified B-cell lymphoma type, unspecified body region (HCC), Weakness of both legs * DIFFERENTIAL MANUAL(Performed 10/23/2022) * CBC W AUTO DIFFERENTIAL(Performed 10/23/2022) * PHOSPHORUS BLOOD(Performed 10/23/2022) * MAGNESIUM BLOOD(Performed 10/23/2022) * COMPREHENSIVE METABOLIC PANEL(Performed 10/23/2022) * HEMOGLOBIN A1C(Performed 10/23/2022) * GLUCOSE - POINT OF CARE(Performed 10/22/2022) * GLUCOSE - POINT OF CARE(Performed 10/22/2022) * URINALYSIS REFLEX TO MICROSCOPIC NO CULTURE(Performed 10/22/2022) * GLUCOSE - POINT OF CARE(Performed 10/22/2022) * GLUCOSE - POINT OF CARE(Performed 10/22/2022) * DIFFERENTIAL MANUAL(Performed 10/22/2022) * PHOSPHORUS BLOOD(Performed 10/22/2022) * MAGNESIUM BLOOD(Performed 10/22/2022) * COMPREHENSIVE METABOLIC PANEL(Performed 10/22/2022) * CBC W AUTO DIFFERENTIAL(Performed 10/22/2022) * GLUCOSE - POINT OF CARE(Performed 10/22/2022) * TYPE + SCREEN PANEL(Performed 10/20/2022) Performed for Non-Hodgkin's lymphoma, unspecified body region, unspecified non- Hodgkin lymphoma type (HCC), Encounter for blood transfusion * DIFFERENTIAL MANUAL(Performed 10/20/2022) Performed for Non-Hodgkin's lymphoma, unspecified body region, unspecified non- Hodgkin lymphoma type (HCC) * MAGNESIUM BLOOD(Performed 10/20/2022) Performed for Non-Hodgkin's lymphoma, unspecified body region, unspecified non- Hodgkin lymphoma type (HCC) * PHOSPHORUS BLOOD(Performed 10/20/2022) Performed for Non-Hodgkin's lymphoma, unspecified body region, unspecified non- Hodgkin lymphoma type (HCC) * URIC ACID BLOOD(Performed 10/20/2022) Performed for Non-Hodgkin's lymphoma, unspecified body region, unspecified non- Hodgkin lymphoma type (HCC) * LDH BLOOD(Performed 10/20/2022) Performed for Non-Hodgkin's lymphoma, unspecified body region, unspecified non- Hodgkin lymphoma type (HCC) * COMPREHENSIVE METABOLIC PANEL(Performed 10/20/2022) Performed for Non-Hodgkin's lymphoma, unspecified body region, unspecified non- Hodgkin lymphoma type (HCC) * CBC W AUTO DIFFERENTIAL(Performed 10/20/2022) Performed for Non-Hodgkin's lymphoma, unspecified body region, unspecified non- Hodgkin lymphoma type (HCC) * GLUCOSE - POINT OF CARE(Performed 10/19/2022) * GLUCOSE - POINT OF CARE(Performed 10/19/2022) * PHOSPHORUS BLOOD(Performed 10/19/2022) * MAGNESIUM BLOOD(Performed 10/19/2022) * COMPREHENSIVE METABOLIC PANEL(Performed 10/19/2022) * CBC W AUTO DIFFERENTIAL(Performed 10/19/2022) * GLUCOSE - POINT OF CARE(Performed 10/18/2022) * GLUCOSE - POINT OF CARE(Performed 10/18/2022) * GLUCOSE - POINT OF CARE(Performed 10/18/2022) * URINALYSIS REFLEX TO MICROSCOPIC NO CULTURE(Performed 10/18/2022) * GLUCOSE - POINT OF CARE(Performed 10/18/2022) * PHOSPHORUS BLOOD(Performed 10/18/2022) * MAGNESIUM BLOOD(Performed 10/18/2022) * COMPREHENSIVE METABOLIC PANEL(Performed 10/18/2022) * CBC W AUTO DIFFERENTIAL(Performed 10/18/2022) * GLUCOSE - POINT OF CARE(Performed 10/17/2022) * XR ABDOMEN KUB PORTABLE(Performed 10/17/2022) Performed for Constipation, unspecified constipation type * GLUCOSE - POINT OF CARE(Performed 10/17/2022) * GLUCOSE - POINT OF CARE(Performed 10/17/2022) * GLUCOSE - POINT OF CARE(Performed 10/17/2022) * PHOSPHORUS BLOOD(Performed 10/17/2022) * MAGNESIUM BLOOD(Performed 10/17/2022) * COMPREHENSIVE METABOLIC PANEL(Performed 10/17/2022) * CBC W AUTO DIFFERENTIAL(Performed 10/17/2022) * GLUCOSE - POINT OF CARE(Performed 10/16/2022) * GLUCOSE - POINT OF CARE(Performed 10/16/2022) * XR ABDOMEN KUB PORTABLE(Performed 10/16/2022) Performed for Drug-induced constipation * GLUCOSE - POINT OF CARE(Performed 10/16/2022) * GLUCOSE - POINT OF CARE(Performed 10/16/2022) * PHOSPHORUS BLOOD(Performed 10/16/2022) * MAGNESIUM BLOOD(Performed 10/16/2022) * COMPREHENSIVE METABOLIC PANEL(Performed 10/16/2022) * CBC W AUTO DIFFERENTIAL(Performed 10/16/2022) * GLUCOSE - POINT OF CARE(Performed 10/15/2022) * GLUCOSE - POINT OF CARE(Performed 10/15/2022) * GLUCOSE - POINT OF CARE(Performed 10/15/2022) * GLUCOSE - POINT OF CARE(Performed 10/15/2022) * PHOSPHORUS BLOOD(Performed 10/15/2022) * MAGNESIUM BLOOD(Performed 10/15/2022) * COMPREHENSIVE METABOLIC PANEL(Performed 10/15/2022) * CBC W AUTO DIFFERENTIAL(Performed 10/15/2022) * GLUCOSE - POINT OF CARE(Performed 10/14/2022) * DIFFERENTIAL MANUAL(Performed 10/14/2022) 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) * LDH BLOOD(Performed 10/14/2022) 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) * URIC ACID BLOOD(Performed 10/14/2022) 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) * PHOSPHORUS BLOOD(Performed 10/14/2022) 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) * MAGNESIUM BLOOD(Performed 10/14/2022) 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) * COMPREHENSIVE METABOLIC PANEL(Performed 10/14/2022) 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) * CBC W AUTO DIFFERENTIAL(Performed 10/14/2022) 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) * CYTOMEGALOVIRUS ANTIBODY IGG BLOOD(Performed 10/14/2022) 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) * PET CT WHOLE BODY(Performed 10/11/2022) Performed for Non-Hodgkin's lymphoma, unspecified body region, unspecified non- Hodgkin lymphoma type (HCC) * GLUCOSE SCREEN - POCT (IP) SLH(Performed 10/11/2022) * TYPE + SCREEN PANEL(Performed 10/11/2022) Performed for Non-Hodgkin's lymphoma, unspecified body region, unspecified non- Hodgkin lymphoma type (HCC), Encounter for blood transfusion * DIFFERENTIAL MANUAL(Performed 10/11/2022) Performed for Non-Hodgkin's lymphoma, unspecified body region, unspecified non- Hodgkin lymphoma type (HCC) * MAGNESIUM BLOOD(Performed 10/11/2022) Performed for Non-Hodgkin's lymphoma, unspecified body region, unspecified non- Hodgkin lymphoma type (HCC) * PHOSPHORUS BLOOD(Performed 10/11/2022) Performed for Non-Hodgkin's lymphoma, unspecified body region, unspecified non- Hodgkin lymphoma type (HCC) * URIC ACID BLOOD(Performed 10/11/2022) Performed for Non-Hodgkin's lymphoma, unspecified body region, unspecified non- Hodgkin lymphoma type (HCC) * LDH BLOOD(Performed 10/11/2022) Performed for Non-Hodgkin's lymphoma, unspecified body region, unspecified non- Hodgkin lymphoma type (HCC) * COMPREHENSIVE METABOLIC PANEL(Performed 10/11/2022) Performed for Non-Hodgkin's lymphoma, unspecified body region, unspecified non- Hodgkin lymphoma type (HCC) * CBC W AUTO DIFFERENTIAL(Performed 10/11/2022) Performed for Non-Hodgkin's lymphoma, unspecified body region, unspecified non- Hodgkin lymphoma type (HCC) * DIFFERENTIAL MANUAL(Performed 10/07/2022) * MAGNESIUM BLOOD(Performed 10/07/2022) * CBC W AUTO DIFFERENTIAL(Performed 10/07/2022) * DIFFERENTIAL MANUAL(Performed 10/06/2022) Performed for Non-Hodgkin's lymphoma, unspecified body region, unspecified non- Hodgkin lymphoma type (HCC) * MAGNESIUM BLOOD(Performed 10/06/2022) Performed for Non-Hodgkin's lymphoma, unspecified body region, unspecified non- Hodgkin lymphoma type (HCC) * PHOSPHORUS BLOOD(Performed 10/06/2022) Performed for Non-Hodgkin's lymphoma, unspecified body region, unspecified non- Hodgkin lymphoma type (HCC) * URIC ACID BLOOD(Performed 10/06/2022) Performed for Non-Hodgkin's lymphoma, unspecified body region, unspecified non- Hodgkin lymphoma type (HCC) * LDH BLOOD(Performed 10/06/2022) Performed for Non-Hodgkin's lymphoma, unspecified body region, unspecified non- Hodgkin lymphoma type (HCC) * COMPREHENSIVE METABOLIC PANEL(Performed 10/06/2022) Performed for Non-Hodgkin's lymphoma, unspecified body region, unspecified non- Hodgkin lymphoma type (HCC) * CBC W AUTO DIFFERENTIAL(Performed 10/06/2022) Performed for Non-Hodgkin's lymphoma, unspecified body region, unspecified non- Hodgkin lymphoma type (HCC) * TYPE + SCREEN PANEL(Performed 10/04/2022) Performed for Non-Hodgkin's lymphoma, unspecified body region, unspecified non- Hodgkin lymphoma type (HCC), Encounter for blood transfusion * DIFFERENTIAL MANUAL(Performed 10/04/2022) Performed for Non-Hodgkin's lymphoma, unspecified body region, unspecified non- Hodgkin lymphoma type (HCC) * MAGNESIUM BLOOD(Performed 10/04/2022) Performed for Non-Hodgkin's lymphoma, unspecified body region, unspecified non- Hodgkin lymphoma type (HCC) * PHOSPHORUS BLOOD(Performed 10/04/2022) Performed for Non-Hodgkin's lymphoma, unspecified body region, unspecified non- Hodgkin lymphoma type (HCC) * URIC ACID BLOOD(Performed 10/04/2022) Performed for Non-Hodgkin's lymphoma, unspecified body region, unspecified non- Hodgkin lymphoma type (HCC) * LDH BLOOD(Performed 10/04/2022) Performed for Non-Hodgkin's lymphoma, unspecified body region, unspecified non- Hodgkin lymphoma type (HCC) * COMPREHENSIVE METABOLIC PANEL(Performed 10/04/2022) Performed for Non-Hodgkin's lymphoma, unspecified body region, unspecified non- Hodgkin lymphoma type (HCC) * CBC W AUTO DIFFERENTIAL(Performed 10/04/2022) Performed for Non-Hodgkin's lymphoma, unspecified body region, unspecified non- Hodgkin lymphoma type (HCC) * TRANSFUSE RED BLOOD CELL LEUKOREDUCED UNIT(S)(Performed 10/01/2022) * PREPARE RBC LEUKOREDUCED UNIT(Performed 10/01/2022) * XR ANKLE LEFT 3VW OR MORE(Performed 10/01/2022) Performed for Arthralgia of left ankle * XR HAND RIGHT 3VW OR MORE(Performed 10/01/2022) Performed for Right hand pain * TYPE + SCREEN PANEL(Performed 10/01/2022) Performed for Non-Hodgkin's lymphoma, unspecified body region, unspecified non- Hodgkin lymphoma type (HCC), Encounter for blood transfusion * DIFFERENTIAL MANUAL(Performed 10/01/2022) Performed for Non-Hodgkin's lymphoma, unspecified body region, unspecified non- Hodgkin lymphoma type (HCC) * MAGNESIUM BLOOD(Performed 10/01/2022) Performed for Non-Hodgkin's lymphoma, unspecified body region, unspecified non- Hodgkin lymphoma type (HCC) * PHOSPHORUS BLOOD(Performed 10/01/2022) Performed for Non-Hodgkin's lymphoma, unspecified body region, unspecified non- Hodgkin lymphoma type (HCC) * URIC ACID BLOOD(Performed 10/01/2022) Performed for Non-Hodgkin's lymphoma, unspecified body region, unspecified non- Hodgkin lymphoma type (HCC) * LDH BLOOD(Performed 10/01/2022) Performed for Non-Hodgkin's lymphoma, unspecified body region, unspecified non- Hodgkin lymphoma type (HCC) * COMPREHENSIVE METABOLIC PANEL(Performed 10/01/2022) Performed for Non-Hodgkin's lymphoma, unspecified body region, unspecified non- Hodgkin lymphoma type (HCC) * CBC W AUTO DIFFERENTIAL(Performed 10/01/2022) Performed for Non-Hodgkin's lymphoma, unspecified body region, unspecified non- Hodgkin lymphoma type (HCC) * DIFFERENTIAL MANUAL(Performed 09/29/2022) Performed for Non-Hodgkin's lymphoma, unspecified body region, unspecified non- Hodgkin lymphoma type (HCC) * COMPREHENSIVE METABOLIC PANEL(Performed 09/29/2022) Performed for Non-Hodgkin's lymphoma, unspecified body region, unspecified non- Hodgkin lymphoma type (HCC) * CBC W AUTO DIFFERENTIAL(Performed 09/29/2022) Performed for Non-Hodgkin's lymphoma, unspecified body region, unspecified non- Hodgkin lymphoma type (HCC) * GLUCOSE - POINT OF CARE(Performed 09/28/2022) * GLUCOSE - POINT OF CARE(Performed 09/28/2022) * DIFFERENTIAL MANUAL(Performed 09/28/2022) * PHOSPHORUS BLOOD(Performed 09/28/2022) * MAGNESIUM BLOOD(Performed 09/28/2022) * COMPREHENSIVE METABOLIC PANEL(Performed 09/28/2022) * CBC W AUTO DIFFERENTIAL(Performed 09/28/2022) * GLUCOSE - POINT OF CARE(Performed 09/27/2022) * GLUCOSE - POINT OF CARE(Performed 09/27/2022) * GLUCOSE - POINT OF CARE(Performed 09/27/2022) * GLUCOSE - POINT OF CARE(Performed 09/27/2022) * GLUCOSE - POINT OF CARE(Performed 09/27/2022) * DIFFERENTIAL MANUAL(Performed 09/27/2022) * PHOSPHORUS BLOOD(Performed 09/27/2022) * MAGNESIUM BLOOD(Performed 09/27/2022) * COMPREHENSIVE METABOLIC PANEL(Performed 09/27/2022) * CBC W AUTO DIFFERENTIAL(Performed 09/27/2022) * GLUCOSE - POINT OF CARE(Performed 09/26/2022) * GLUCOSE - POINT OF CARE(Performed 09/26/2022) * OT EVAL AND TREAT(Performed 09/26/2022) * GLUCOSE - POINT OF CARE(Performed 09/26/2022) * GLUCOSE - POINT OF CARE(Performed 09/26/2022) * PHOSPHORUS BLOOD(Performed 09/26/2022) * MAGNESIUM BLOOD(Performed 09/26/2022) * COMPREHENSIVE METABOLIC PANEL(Performed 09/26/2022) * CBC W AUTO DIFFERENTIAL(Performed 09/26/2022) * GLUCOSE - POINT OF CARE(Performed 09/25/2022) * GLUCOSE - POINT OF CARE(Performed 09/25/2022) * GLUCOSE - POINT OF CARE(Performed 09/25/2022) * GLUCOSE - POINT OF CARE(Performed 09/25/2022) * GLUCOSE - POINT OF CARE(Performed 09/24/2022) * GLUCOSE - POINT OF CARE(Performed 09/24/2022) * GLUCOSE - POINT OF CARE(Performed 09/24/2022) * RENAL FUNCTION PANEL(Performed 09/24/2022) * CBC W/O DIFFERENTIAL(Performed 09/24/2022) * MAGNESIUM BLOOD(Performed 09/24/2022) * GLUCOSE - POINT OF CARE(Performed 09/23/2022) * OT EVAL AND TREAT(Performed 09/23/2022) * GLUCOSE - POINT OF CARE(Performed 09/23/2022) * DIFFERENTIAL MANUAL(Performed 09/23/2022) 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) * CYTOMEGALOVIRUS ANTIBODY IGG BLOOD(Performed 09/23/2022) 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) * URIC ACID BLOOD(Performed 09/23/2022) 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) * LDH BLOOD(Performed 09/23/2022) 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) * PHOSPHORUS BLOOD(Performed 09/23/2022) 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) * MAGNESIUM BLOOD(Performed 09/23/2022) 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) * COMPREHENSIVE METABOLIC PANEL(Performed 09/23/2022) 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) * CBC W AUTO DIFFERENTIAL(Performed 09/23/2022) 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) * TYPE + SCREEN PANEL(Performed 09/20/2022) Performed for Non-Hodgkin's lymphoma, unspecified body region, unspecified non- Hodgkin lymphoma type (HCC), Encounter for blood transfusion * DIFFERENTIAL MANUAL(Performed 09/20/2022) Performed for Non-Hodgkin's lymphoma, unspecified body region, unspecified non- Hodgkin lymphoma type (HCC) * MAGNESIUM BLOOD(Performed 09/20/2022) Performed for Non-Hodgkin's lymphoma, unspecified body region, unspecified non- Hodgkin lymphoma type (HCC) * PHOSPHORUS BLOOD(Performed 09/20/2022) Performed for Non-Hodgkin's lymphoma, unspecified body region, unspecified non- Hodgkin lymphoma type (HCC) * URIC ACID BLOOD(Performed 09/20/2022) Performed for Non-Hodgkin's lymphoma, unspecified body region, unspecified non- Hodgkin lymphoma type (HCC) * LDH BLOOD(Performed 09/20/2022) Performed for Non-Hodgkin's lymphoma, unspecified body region, unspecified non- Hodgkin lymphoma type (HCC) * COMPREHENSIVE METABOLIC PANEL(Performed 09/20/2022) Performed for Non-Hodgkin's lymphoma, unspecified body region, unspecified non- Hodgkin lymphoma type (HCC) * CBC W AUTO DIFFERENTIAL(Performed 09/20/2022) Performed for Non-Hodgkin's lymphoma, unspecified body region, unspecified non- Hodgkin lymphoma type (HCC) * TYPE + SCREEN PANEL(Performed 09/16/2022) Performed for Non-Hodgkin's lymphoma, unspecified body region, unspecified non- Hodgkin lymphoma type (HCC), Encounter for blood transfusion * DIFFERENTIAL MANUAL(Performed 09/16/2022) Performed for Non-Hodgkin's lymphoma, unspecified body region, unspecified non- Hodgkin lymphoma type (HCC) * MAGNESIUM BLOOD(Performed 09/16/2022) Performed for Non-Hodgkin's lymphoma, unspecified body region, unspecified non- Hodgkin lymphoma type (HCC) * PHOSPHORUS BLOOD(Performed 09/16/2022) Performed for Non-Hodgkin's lymphoma, unspecified body region, unspecified non- Hodgkin lymphoma type (HCC) * URIC ACID BLOOD(Performed 09/16/2022) Performed for Non-Hodgkin's lymphoma, unspecified body region, unspecified non- Hodgkin lymphoma type (HCC) * LDH BLOOD(Performed 09/16/2022) Performed for Non-Hodgkin's lymphoma, unspecified body region, unspecified non- Hodgkin lymphoma type (HCC) * COMPREHENSIVE METABOLIC PANEL(Performed 09/16/2022) Performed for Non-Hodgkin's lymphoma, unspecified body region, unspecified non- Hodgkin lymphoma type (HCC) * CBC W AUTO DIFFERENTIAL(Performed 09/16/2022) Performed for Non-Hodgkin's lymphoma, unspecified body region, unspecified non- Hodgkin lymphoma type (HCC) * TRANSFUSE RED BLOOD CELL LEUKOREDUCED UNIT(S)(Performed 09/13/2022) * PREPARE RBC LEUKOREDUCED UNIT(Performed 09/13/2022) * TYPE + SCREEN PANEL(Performed 09/13/2022) Performed for Non-Hodgkin's lymphoma, unspecified body region, unspecified non- Hodgkin lymphoma type (HCC), Encounter for blood transfusion * DIFFERENTIAL MANUAL(Performed 09/13/2022) Performed for Non-Hodgkin's lymphoma, unspecified body region, unspecified non- Hodgkin lymphoma type (HCC) * MAGNESIUM BLOOD(Performed 09/13/2022) Performed for Non-Hodgkin's lymphoma, unspecified body region, unspecified non- Hodgkin lymphoma type (HCC) * PHOSPHORUS BLOOD(Performed 09/13/2022) Performed for Non-Hodgkin's lymphoma, unspecified body region, unspecified non- Hodgkin lymphoma type (HCC) * URIC ACID BLOOD(Performed 09/13/2022) Performed for Non-Hodgkin's lymphoma, unspecified body region, unspecified non- Hodgkin lymphoma type (HCC) * LDH BLOOD(Performed 09/13/2022) Performed for Non-Hodgkin's lymphoma, unspecified body region, unspecified non- Hodgkin lymphoma type (HCC) * COMPREHENSIVE METABOLIC PANEL(Performed 09/13/2022) Performed for Non-Hodgkin's lymphoma, unspecified body region, unspecified non- Hodgkin lymphoma type (HCC) * CBC W AUTO DIFFERENTIAL(Performed 09/13/2022) Performed for Non-Hodgkin's lymphoma, unspecified body region, unspecified non- Hodgkin lymphoma type (HCC) * URINE MICROSCOPIC ONLY REFLEX TO CULTURE(Performed 09/10/2022) * URINALYSIS REFLEX MICROSCOPIC REFLEX CULTURE(Performed 09/10/2022) * CULTURE URINE(Performed 09/10/2022) * TYPE + SCREEN PANEL(Performed 09/10/2022) Performed for Non-Hodgkin's lymphoma, unspecified body region, unspecified non- Hodgkin lymphoma type (HCC), Encounter for blood transfusion * DIFFERENTIAL MANUAL(Performed 09/10/2022) Performed for Non-Hodgkin's lymphoma, unspecified body region, unspecified non- Hodgkin lymphoma type (HCC) * MAGNESIUM BLOOD(Performed 09/10/2022) Performed for Non-Hodgkin's lymphoma, unspecified body region, unspecified non- Hodgkin lymphoma type (HCC) * PHOSPHORUS BLOOD(Performed 09/10/2022) Performed for Non-Hodgkin's lymphoma, unspecified body region, unspecified non- Hodgkin lymphoma type (HCC) * URIC ACID BLOOD(Performed 09/10/2022) Performed for Non-Hodgkin's lymphoma, unspecified body region, unspecified non- Hodgkin lymphoma type (HCC) * LDH BLOOD(Performed 09/10/2022) Performed for Non-Hodgkin's lymphoma, unspecified body region, unspecified non- Hodgkin lymphoma type (HCC) * COMPREHENSIVE METABOLIC PANEL(Performed 09/10/2022) Performed for Non-Hodgkin's lymphoma, unspecified body region, unspecified non- Hodgkin lymphoma type (HCC) * CBC W AUTO DIFFERENTIAL(Performed 09/10/2022) Performed for Non-Hodgkin's lymphoma, unspecified body region, unspecified non- Hodgkin lymphoma type (HCC) * DIFFERENTIAL MANUAL(Performed 09/08/2022) * MAGNESIUM BLOOD(Performed 09/08/2022) * COMPREHENSIVE METABOLIC PANEL(Performed 09/08/2022) * CBC W AUTO DIFFERENTIAL(Performed 09/08/2022) * GLUCOSE - POINT OF CARE(Performed 09/07/2022) * GLUCOSE - POINT OF CARE(Performed 09/07/2022) * DIFFERENTIAL MANUAL(Performed 09/06/2022) * COMPREHENSIVE METABOLIC PANEL(Performed 09/06/2022) * PHOSPHORUS BLOOD(Performed 09/06/2022) * MAGNESIUM BLOOD(Performed 09/06/2022) * CBC W AUTO DIFFERENTIAL(Performed 09/06/2022) * GLUCOSE - POINT OF CARE(Performed 09/06/2022) * GLUCOSE - POINT OF CARE(Performed 09/06/2022) * GLUCOSE - POINT OF CARE(Performed 09/06/2022) * GLUCOSE - POINT OF CARE(Performed 09/06/2022) * COMPREHENSIVE METABOLIC PANEL(Performed 09/06/2022) * PHOSPHORUS BLOOD(Performed 09/06/2022) * MAGNESIUM BLOOD(Performed 09/06/2022) * CBC W AUTO DIFFERENTIAL(Performed 09/06/2022) * GLUCOSE - POINT OF CARE(Performed 09/06/2022) * GLUCOSE - POINT OF CARE(Performed 09/05/2022) * GLUCOSE - POINT OF CARE(Performed 09/05/2022) * GLUCOSE - POINT OF CARE(Performed 09/05/2022) * GLUCOSE - POINT OF CARE(Performed 09/05/2022) * GLUCOSE - POINT OF CARE(Performed 09/05/2022) * COMPREHENSIVE METABOLIC PANEL(Performed 09/05/2022) * PHOSPHORUS BLOOD(Performed 09/05/2022) * MAGNESIUM BLOOD(Performed 09/05/2022) * CBC W AUTO DIFFERENTIAL(Performed 09/05/2022) * GLUCOSE - POINT OF CARE(Performed 09/04/2022) * GLUCOSE - POINT OF CARE(Performed 09/04/2022) * GLUCOSE - POINT OF CARE(Performed 09/04/2022) * GLUCOSE - POINT OF CARE(Performed 09/04/2022) * GLUCOSE - POINT OF CARE(Performed 09/04/2022) * COMPREHENSIVE METABOLIC PANEL(Performed 09/03/2022) * PHOSPHORUS BLOOD(Performed 09/03/2022) * MAGNESIUM BLOOD(Performed 09/03/2022) * CBC W AUTO DIFFERENTIAL(Performed 09/03/2022) * GLUCOSE - POINT OF CARE(Performed 09/03/2022) * GLUCOSE - POINT OF CARE(Performed 09/03/2022) * GLUCOSE - POINT OF CARE(Performed 09/03/2022) * GLUCOSE - POINT OF CARE(Performed 09/03/2022) * GLUCOSE - POINT OF CARE(Performed 09/03/2022) * DIFFERENTIAL MANUAL(Performed 09/03/2022) * PT-INR [facility](Performed 09/03/2022) * PTT [facility](Performed 09/03/2022) * FIBRINOGEN ACTIVITY(Performed 09/03/2022) * URIC ACID BLOOD(Performed 09/03/2022) * LDH BLOOD(Performed 09/03/2022) * COMPREHENSIVE METABOLIC PANEL(Performed 09/03/2022) * PHOSPHORUS BLOOD(Performed 09/03/2022) * MAGNESIUM BLOOD(Performed 09/03/2022) * CBC W AUTO DIFFERENTIAL(Performed 09/03/2022) * GLUCOSE - POINT OF CARE(Performed 09/03/2022) * GLUCOSE - POINT OF CARE(Performed 09/02/2022) * DIFFERENTIAL MANUAL(Performed 09/02/2022) 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) * CYTOMEGALOVIRUS ANTIBODY IGG BLOOD(Performed 09/02/2022) 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) * URIC ACID BLOOD(Performed 09/02/2022) 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) * LDH BLOOD(Performed 09/02/2022) 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) * MAGNESIUM BLOOD(Performed 09/02/2022) 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) * PHOSPHORUS BLOOD(Performed 09/02/2022) 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) * COMPREHENSIVE METABOLIC PANEL(Performed 09/02/2022) 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) * CBC W AUTO DIFFERENTIAL(Performed 09/02/2022) 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) * PATHOLOGY PERIPHERAL SMEAR REVIEW(Performed 08/30/2022) Performed for Non-Hodgkin's lymphoma, unspecified body region, unspecified non- Hodgkin lymphoma type (HCC) * TYPE + SCREEN PANEL(Performed 08/30/2022) Performed for Non-Hodgkin's lymphoma, unspecified body region, unspecified non- Hodgkin lymphoma type (HCC), Encounter for blood transfusion * DIFFERENTIAL MANUAL(Performed 08/30/2022) Performed for Non-Hodgkin's lymphoma, unspecified body region, unspecified non- Hodgkin lymphoma type (HCC) * MAGNESIUM BLOOD(Performed 08/30/2022) Performed for Non-Hodgkin's lymphoma, unspecified body region, unspecified non- Hodgkin lymphoma type (HCC) * PHOSPHORUS BLOOD(Performed 08/30/2022) Performed for Non-Hodgkin's lymphoma, unspecified body region, unspecified non- Hodgkin lymphoma type (HCC) * URIC ACID BLOOD(Performed 08/30/2022) Performed for Non-Hodgkin's lymphoma, unspecified body region, unspecified non- Hodgkin lymphoma type (HCC) * LDH BLOOD(Performed 08/30/2022) Performed for Non-Hodgkin's lymphoma, unspecified body region, unspecified non- Hodgkin lymphoma type (HCC) * COMPREHENSIVE METABOLIC PANEL(Performed 08/30/2022) Performed for Non-Hodgkin's lymphoma, unspecified body region, unspecified non- Hodgkin lymphoma type (HCC) * CBC W AUTO DIFFERENTIAL(Performed 08/30/2022) Performed for Non-Hodgkin's lymphoma, unspecified body region, unspecified non- Hodgkin lymphoma type (HCC) * TYPE + SCREEN PANEL(Performed 08/27/2022) Performed for Non-Hodgkin's lymphoma, unspecified body region, unspecified non- Hodgkin lymphoma type (HCC), Encounter for blood transfusion * DIFFERENTIAL MANUAL(Performed 08/27/2022) Performed for Non-Hodgkin's lymphoma, unspecified body region, unspecified non- Hodgkin lymphoma type (HCC) * MAGNESIUM BLOOD(Performed 08/27/2022) Performed for Non-Hodgkin's lymphoma, unspecified body region, unspecified non- Hodgkin lymphoma type (HCC) * PHOSPHORUS BLOOD(Performed 08/27/2022) Performed for Non-Hodgkin's lymphoma, unspecified body region, unspecified non- Hodgkin lymphoma type (HCC) * URIC ACID BLOOD(Performed 08/27/2022) Performed for Non-Hodgkin's lymphoma, unspecified body region, unspecified non- Hodgkin lymphoma type (HCC) * LDH BLOOD(Performed 08/27/2022) Performed for Non-Hodgkin's lymphoma, unspecified body region, unspecified non- Hodgkin lymphoma type (HCC) * COMPREHENSIVE METABOLIC PANEL(Performed 08/27/2022) Performed for Non-Hodgkin's lymphoma, unspecified body region, unspecified non- Hodgkin lymphoma type (HCC) * CBC W AUTO DIFFERENTIAL(Performed 08/27/2022) Performed for Non-Hodgkin's lymphoma, unspecified body region, unspecified non- Hodgkin lymphoma type (HCC) * TRANSFUSE RED BLOOD CELL LEUKOREDUCED UNIT(S)(Performed 08/24/2022) * PREPARE RBC LEUKOREDUCED UNIT(Performed 08/24/2022) * TYPE + SCREEN PANEL(Performed 08/24/2022) Performed for Non-Hodgkin's lymphoma, unspecified body region, unspecified non- Hodgkin lymphoma type (HCC), Encounter for blood transfusion * DIFFERENTIAL MANUAL(Performed 08/24/2022) Performed for Non-Hodgkin's lymphoma, unspecified body region, unspecified non- Hodgkin lymphoma type (HCC) * MAGNESIUM BLOOD(Performed 08/24/2022) Performed for Non-Hodgkin's lymphoma, unspecified body region, unspecified non- Hodgkin lymphoma type (HCC) * PHOSPHORUS BLOOD(Performed 08/24/2022) Performed for Non-Hodgkin's lymphoma, unspecified body region, unspecified non- Hodgkin lymphoma type (HCC) * URIC ACID BLOOD(Performed 08/24/2022) Performed for Non-Hodgkin's lymphoma, unspecified body region, unspecified non- Hodgkin lymphoma type (HCC) * LDH BLOOD(Performed 08/24/2022) Performed for Non-Hodgkin's lymphoma, unspecified body region, unspecified non- Hodgkin lymphoma type (HCC) * COMPREHENSIVE METABOLIC PANEL(Performed 08/24/2022) Performed for Non-Hodgkin's lymphoma, unspecified body region, unspecified non- Hodgkin lymphoma type (HCC) * CBC W AUTO DIFFERENTIAL(Performed 08/24/2022) Performed for Non-Hodgkin's lymphoma, unspecified body region, unspecified non- Hodgkin lymphoma type (HCC) * DIFFERENTIAL MANUAL(Performed 08/20/2022) Performed for Non-Hodgkin's lymphoma, unspecified body region, unspecified non- Hodgkin lymphoma type (HCC) * MAGNESIUM BLOOD(Performed 08/20/2022) Performed for Non-Hodgkin's lymphoma, unspecified body region, unspecified non- Hodgkin lymphoma type (HCC) * PHOSPHORUS BLOOD(Performed 08/20/2022) Performed for Non-Hodgkin's lymphoma, unspecified body region, unspecified non- Hodgkin lymphoma type (HCC) * URIC ACID BLOOD(Performed 08/20/2022) Performed for Non-Hodgkin's lymphoma, unspecified body region, unspecified non- Hodgkin lymphoma type (HCC) * LDH BLOOD(Performed 08/20/2022) Performed for Non-Hodgkin's lymphoma, unspecified body region, unspecified non- Hodgkin lymphoma type (HCC) * COMPREHENSIVE METABOLIC PANEL(Performed 08/20/2022) Performed for Non-Hodgkin's lymphoma, unspecified body region, unspecified non- Hodgkin lymphoma type (HCC) * CBC W AUTO DIFFERENTIAL(Performed 08/20/2022) Performed for Non-Hodgkin's lymphoma, unspecified body region, unspecified non- Hodgkin lymphoma type (HCC) * MAGNESIUM BLOOD(Performed 08/18/2022) * COMPREHENSIVE METABOLIC PANEL(Performed 08/18/2022) * CBC W AUTO DIFFERENTIAL(Performed 08/18/2022) * GLUCOSE - POINT OF CARE(Performed 08/17/2022) * GLUCOSE - POINT OF CARE(Performed 08/17/2022) * CBC W/O DIFFERENTIAL(Performed 08/17/2022) * COMPREHENSIVE METABOLIC PANEL(Performed 08/17/2022) * LDH BLOOD(Performed 08/17/2022) * MAGNESIUM BLOOD(Performed 08/17/2022) * PHOSPHORUS BLOOD(Performed 08/17/2022) * URIC ACID BLOOD(Performed 08/17/2022) * GLUCOSE - POINT OF CARE(Performed 08/16/2022) * GLUCOSE - POINT OF CARE(Performed 08/16/2022) * PHOSPHORUS BLOOD(Performed 08/16/2022) * MAGNESIUM BLOOD(Performed 08/16/2022) * CBC W/O DIFFERENTIAL(Performed 08/16/2022) * COMPREHENSIVE METABOLIC PANEL(Performed 08/16/2022) * LDH BLOOD(Performed 08/16/2022) * URIC ACID BLOOD(Performed 08/16/2022) * GLUCOSE - POINT OF CARE(Performed 08/16/2022) * GLUCOSE - POINT OF CARE(Performed 08/16/2022) * PHOSPHORUS BLOOD(Performed 08/15/2022) * MAGNESIUM BLOOD(Performed 08/15/2022) * CBC W/O DIFFERENTIAL(Performed 08/15/2022) * COMPREHENSIVE METABOLIC PANEL(Performed 08/15/2022) * LDH BLOOD(Performed 08/15/2022) * URIC ACID BLOOD(Performed 08/15/2022) * GLUCOSE - POINT OF CARE(Performed 08/15/2022) * GLUCOSE - POINT OF CARE(Performed 08/15/2022) * PHOSPHORUS BLOOD(Performed 08/15/2022) * MAGNESIUM BLOOD(Performed 08/15/2022) * CBC W/O DIFFERENTIAL(Performed 08/15/2022) * COMPREHENSIVE METABOLIC PANEL(Performed 08/15/2022) * LDH BLOOD(Performed 08/15/2022) * URIC ACID BLOOD(Performed 08/15/2022) * GLUCOSE - POINT OF CARE(Performed 08/15/2022) * GLUCOSE - POINT OF CARE(Performed 08/15/2022) * PHOSPHORUS BLOOD(Performed 08/14/2022) * MAGNESIUM BLOOD(Performed 08/14/2022) * CBC W/O DIFFERENTIAL(Performed 08/14/2022) * COMPREHENSIVE METABOLIC PANEL(Performed 08/14/2022) * LDH BLOOD(Performed 08/14/2022) * URIC ACID BLOOD(Performed 08/14/2022) * GLUCOSE - POINT OF CARE(Performed 08/14/2022) * GLUCOSE - POINT OF CARE(Performed 08/14/2022) * PHOSPHORUS BLOOD(Performed 08/14/2022) * MAGNESIUM BLOOD(Performed 08/14/2022) * CBC W/O DIFFERENTIAL(Performed 08/14/2022) * COMPREHENSIVE METABOLIC PANEL(Performed 08/14/2022) * LDH BLOOD(Performed 08/14/2022) * URIC ACID BLOOD(Performed 08/14/2022) * GLUCOSE - POINT OF CARE(Performed 08/14/2022) * GLUCOSE - POINT OF CARE(Performed 08/14/2022) * PHOSPHORUS BLOOD(Performed 08/13/2022) * MAGNESIUM BLOOD(Performed 08/13/2022) * CBC W/O DIFFERENTIAL(Performed 08/13/2022) * COMPREHENSIVE METABOLIC PANEL(Performed 08/13/2022) * LDH BLOOD(Performed 08/13/2022) * URIC ACID BLOOD(Performed 08/13/2022) * GLUCOSE - POINT OF CARE(Performed 08/13/2022) * PHOSPHORUS BLOOD(Performed 08/13/2022) * MAGNESIUM BLOOD(Performed 08/13/2022) * CBC W/O DIFFERENTIAL(Performed 08/13/2022) * COMPREHENSIVE METABOLIC PANEL(Performed 08/13/2022) * LDH BLOOD(Performed 08/13/2022) * URIC ACID BLOOD(Performed 08/13/2022) * GLUCOSE - POINT OF CARE(Performed 08/13/2022) * GLUCOSE - POINT OF CARE(Performed 08/13/2022) * GLUCOSE - POINT OF CARE(Performed 08/13/2022) * PHOSPHORUS BLOOD(Performed 08/13/2022) * MAGNESIUM BLOOD(Performed 08/13/2022) * CBC W/O DIFFERENTIAL(Performed 08/13/2022) * COMPREHENSIVE METABOLIC PANEL(Performed 08/13/2022) * LDH BLOOD(Performed 08/13/2022) * URIC ACID BLOOD(Performed 08/13/2022) * GLUCOSE - POINT OF CARE(Performed 08/12/2022) * GLUCOSE - POINT OF CARE(Performed 08/12/2022) * DIFFERENTIAL MANUAL(Performed 08/12/2022) 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) * CYTOMEGALOVIRUS ANTIBODY IGG BLOOD(Performed 08/12/2022) 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) * URIC ACID BLOOD(Performed 08/12/2022) 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) * LDH BLOOD(Performed 08/12/2022) 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) * PHOSPHORUS BLOOD(Performed 08/12/2022) 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) * MAGNESIUM BLOOD(Performed 08/12/2022) 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) * COMPREHENSIVE METABOLIC PANEL(Performed 08/12/2022) 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) * CBC W AUTO DIFFERENTIAL(Performed 08/12/2022) 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) * TYPE + SCREEN PANEL(Performed 08/10/2022) Performed for Non-Hodgkin's lymphoma, unspecified body region, unspecified non- Hodgkin lymphoma type (HCC), Encounter for blood transfusion * DIFFERENTIAL MANUAL(Performed 08/10/2022) Performed for Non-Hodgkin's lymphoma, unspecified body region, unspecified non- Hodgkin lymphoma type (HCC) * MAGNESIUM BLOOD(Performed 08/10/2022) Performed for Non-Hodgkin's lymphoma, unspecified body region, unspecified non- Hodgkin lymphoma type (HCC) * PHOSPHORUS BLOOD(Performed 08/10/2022) Performed for Non-Hodgkin's lymphoma, unspecified body region, unspecified non- Hodgkin lymphoma type (HCC) * URIC ACID BLOOD(Performed 08/10/2022) Performed for Non-Hodgkin's lymphoma, unspecified body region, unspecified non- Hodgkin lymphoma type (HCC) * LDH BLOOD(Performed 08/10/2022) Performed for Non-Hodgkin's lymphoma, unspecified body region, unspecified non- Hodgkin lymphoma type (HCC) * COMPREHENSIVE METABOLIC PANEL(Performed 08/10/2022) Performed for Non-Hodgkin's lymphoma, unspecified body region, unspecified non- Hodgkin lymphoma type (HCC) * CBC W AUTO DIFFERENTIAL(Performed 08/10/2022) Performed for Non-Hodgkin's lymphoma, unspecified body region, unspecified non- Hodgkin lymphoma type (HCC) * DIFFERENTIAL MANUAL(Performed 08/06/2022) Performed for Non-Hodgkin's lymphoma, unspecified body region, unspecified non- Hodgkin lymphoma type (HCC) * MAGNESIUM BLOOD(Performed 08/06/2022) Performed for Non-Hodgkin's lymphoma, unspecified body region, unspecified non- Hodgkin lymphoma type (HCC) * PHOSPHORUS BLOOD(Performed 08/06/2022) Performed for Non-Hodgkin's lymphoma, unspecified body region, unspecified non- Hodgkin lymphoma type (HCC) * URIC ACID BLOOD(Performed 08/06/2022) Performed for Non-Hodgkin's lymphoma, unspecified body region, unspecified non- Hodgkin lymphoma type (HCC) * LDH BLOOD(Performed 08/06/2022) Performed for Non-Hodgkin's lymphoma, unspecified body region, unspecified non- Hodgkin lymphoma type (HCC) * COMPREHENSIVE METABOLIC PANEL(Performed 08/06/2022) Performed for Non-Hodgkin's lymphoma, unspecified body region, unspecified non- Hodgkin lymphoma type (HCC) * CBC W AUTO DIFFERENTIAL(Performed 08/06/2022) Performed for Non-Hodgkin's lymphoma, unspecified body region, unspecified non- Hodgkin lymphoma type (HCC) * TYPE + SCREEN PANEL(Performed 08/03/2022) Performed for Non-Hodgkin's lymphoma, unspecified body region, unspecified non- Hodgkin lymphoma type (HCC), Encounter for blood transfusion * DIFFERENTIAL MANUAL(Performed 08/03/2022) Performed for Non-Hodgkin's lymphoma, unspecified body region, unspecified non- Hodgkin lymphoma type (HCC) * MAGNESIUM BLOOD(Performed 08/03/2022) Performed for Non-Hodgkin's lymphoma, unspecified body region, unspecified non- Hodgkin lymphoma type (HCC) * PHOSPHORUS BLOOD(Performed 08/03/2022) Performed for Non-Hodgkin's lymphoma, unspecified body region, unspecified non- Hodgkin lymphoma type (HCC) * URIC ACID BLOOD(Performed 08/03/2022) Performed for Non-Hodgkin's lymphoma, unspecified body region, unspecified non- Hodgkin lymphoma type (HCC) * LDH BLOOD(Performed 08/03/2022) Performed for Non-Hodgkin's lymphoma, unspecified body region, unspecified non- Hodgkin lymphoma type (HCC) * COMPREHENSIVE METABOLIC PANEL(Performed 08/03/2022) Performed for Non-Hodgkin's lymphoma, unspecified body region, unspecified non- Hodgkin lymphoma type (HCC) * CBC W AUTO DIFFERENTIAL(Performed 08/03/2022) Performed for Non-Hodgkin's lymphoma, unspecified body region, unspecified non- Hodgkin lymphoma type (HCC) * DIFFERENTIAL MANUAL(Performed 07/30/2022) * URIC ACID BLOOD(Performed 07/30/2022) * LDH BLOOD(Performed 07/30/2022) * MAGNESIUM BLOOD(Performed 07/30/2022) * PHOSPHORUS BLOOD(Performed 07/30/2022) * COMPREHENSIVE METABOLIC PANEL(Performed 07/30/2022) * CBC W AUTO DIFFERENTIAL(Performed 07/30/2022) * CARDIAC EKG ORDER(Performed 07/28/2022) * GLUCOSE - POINT OF CARE(Performed 07/27/2022) * GLUCOSE - POINT OF CARE(Performed 07/27/2022) * GLUCOSE - POINT OF CARE(Performed 07/27/2022) * DIFFERENTIAL MANUAL(Performed 07/26/2022) 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) * URIC ACID BLOOD(Performed 07/26/2022) 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) * LDH BLOOD(Performed 07/26/2022) 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) * PHOSPHORUS BLOOD(Performed 07/26/2022) 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) * MAGNESIUM BLOOD(Performed 07/26/2022) 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) * COMPREHENSIVE METABOLIC PANEL(Performed 07/26/2022) 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) * CBC W AUTO DIFFERENTIAL(Performed 07/26/2022) 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) * GLUCOSE - POINT OF CARE(Performed 07/26/2022) * GLUCOSE - POINT OF CARE(Performed 07/26/2022) * GLUCOSE - POINT OF CARE(Performed 07/26/2022) * GLUCOSE - POINT OF CARE(Performed 07/26/2022) * GLUCOSE - POINT OF CARE(Performed 07/26/2022) * LDH BLOOD(Performed 07/26/2022) 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) * URIC ACID BLOOD(Performed 07/26/2022) 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) * PHOSPHORUS BLOOD(Performed 07/26/2022) 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) * MAGNESIUM BLOOD(Performed 07/26/2022) 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) * COMPREHENSIVE METABOLIC PANEL(Performed 07/26/2022) 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) * CBC W AUTO DIFFERENTIAL(Performed 07/26/2022) 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) * GLUCOSE - POINT OF CARE(Performed 07/25/2022) * GLUCOSE - POINT OF CARE(Performed 07/25/2022) * RENAL FUNCTION PANEL(Performed 07/25/2022) * LDH BLOOD(Performed 07/25/2022) 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) * URIC ACID BLOOD(Performed 07/25/2022) 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) * GLUCOSE - POINT OF CARE(Performed 07/25/2022) * GLUCOSE - POINT OF CARE(Performed 07/25/2022) * GLUCOSE - POINT OF CARE(Performed 07/25/2022) * LDH BLOOD(Performed 07/25/2022) 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) * URIC ACID BLOOD(Performed 07/25/2022) 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) * PHOSPHORUS BLOOD(Performed 07/25/2022) 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) * MAGNESIUM BLOOD(Performed 07/25/2022) 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) * COMPREHENSIVE METABOLIC PANEL(Performed 07/25/2022) 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) * CBC W AUTO DIFFERENTIAL(Performed 07/25/2022) 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) * GLUCOSE - POINT OF CARE(Performed 07/25/2022) * GLUCOSE - POINT OF CARE(Performed 07/24/2022) * GLUCOSE - POINT OF CARE(Performed 07/24/2022) * RENAL FUNCTION PANEL(Performed 07/24/2022) * LDH BLOOD(Performed 07/24/2022) 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) * URIC ACID BLOOD(Performed 07/24/2022) 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) * GLUCOSE - POINT OF CARE(Performed 07/24/2022) * GLUCOSE - POINT OF CARE(Performed 07/24/2022) * GLUCOSE - POINT OF CARE(Performed 07/24/2022) * URIC ACID BLOOD(Performed 07/23/2022) 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) * LDH BLOOD(Performed 07/23/2022) 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) * PHOSPHORUS BLOOD(Performed 07/23/2022) 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) * MAGNESIUM BLOOD(Performed 07/23/2022) 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) * COMPREHENSIVE METABOLIC PANEL(Performed 07/23/2022) 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) * CBC W AUTO DIFFERENTIAL(Performed 07/23/2022) 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) * GLUCOSE - POINT OF CARE(Performed 07/23/2022) * GLUCOSE - POINT OF CARE(Performed 07/23/2022) * GLUCOSE - POINT OF CARE(Performed 07/23/2022) * URINALYSIS REFLEX TO MICROSCOPIC NO CULTURE(Performed 07/23/2022) * CULTURE URINE(Performed 07/23/2022) * GLUCOSE - POINT OF CARE(Performed 07/23/2022) * HEMOGLOBIN A1C(Performed 07/23/2022) * URIC ACID BLOOD(Performed 07/23/2022) 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) * LDH BLOOD(Performed 07/23/2022) 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) * PHOSPHORUS BLOOD(Performed 07/23/2022) 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) * MAGNESIUM BLOOD(Performed 07/23/2022) 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) * COMPREHENSIVE METABOLIC PANEL(Performed 07/23/2022) 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) * CBC W AUTO DIFFERENTIAL(Performed 07/23/2022) 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) * GLUCOSE - POINT OF CARE(Performed 07/23/2022) * EKG 12-LEAD(Performed 07/22/2022) 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) * URIC ACID BLOOD(Performed 07/22/2022) 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) * LDH BLOOD(Performed 07/22/2022) 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) * PHOSPHORUS BLOOD(Performed 07/22/2022) 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) * MAGNESIUM BLOOD(Performed 07/22/2022) 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) * COMPREHENSIVE METABOLIC PANEL(Performed 07/22/2022) 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) * CBC W AUTO DIFFERENTIAL(Performed 07/22/2022) 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) * PET CT WHOLE BODY(Performed 07/21/2022) Performed for Non-Hodgkin's lymphoma, unspecified body region, unspecified non- Hodgkin lymphoma type (HCC) * GLUCOSE SCREEN - POCT (IP) SLH(Performed 07/21/2022) * IGM BLOOD(Performed 07/16/2022) Performed for Non-Hodgkin's lymphoma, unspecified body region, unspecified non- Hodgkin lymphoma type (HCC), High risk for chemotherapy-induced infectious complication * IGG BLOOD(Performed 07/16/2022) Performed for Non-Hodgkin's lymphoma, unspecified body region, unspecified non- Hodgkin lymphoma type (HCC), High risk for chemotherapy-induced infectious complication * IGA BLOOD(Performed 07/16/2022) Performed for Non-Hodgkin's lymphoma, unspecified body region, unspecified non- Hodgkin lymphoma type (HCC), High risk for chemotherapy-induced infectious complication * HEPATITIS C RNA QUANTITATIVE(Performed 07/16/2022) Performed for Non-Hodgkin's lymphoma, unspecified body region, unspecified non- Hodgkin lymphoma type (HCC), High risk for chemotherapy-induced infectious complication * HIV-1 HIV-2 ANTIBODY + HIV P24 AG PANEL(Performed 07/16/2022) Performed for Non-Hodgkin's lymphoma, unspecified body region, unspecified non- Hodgkin lymphoma type (HCC), High risk for chemotherapy-induced infectious complication * HEPATITIS B SURFACE ANTIGEN W RFLX CONFIRMATION(Performed 07/16/2022) Performed for Non-Hodgkin's lymphoma, unspecified body region, unspecified non- Hodgkin lymphoma type (HCC), High risk for chemotherapy-induced infectious complication * HEPATITIS B CORE ANTIBODY TOTAL(Performed 07/16/2022) Performed for Non-Hodgkin's lymphoma, unspecified body region, unspecified non- Hodgkin lymphoma type (HCC), High risk for chemotherapy-induced infectious complication * ERYTHROCYTE SEDIMENTATION RATE(Performed 07/16/2022) Performed for Non-Hodgkin's lymphoma, unspecified body region, unspecified non- Hodgkin lymphoma type (HCC), High risk for chemotherapy-induced infectious complication * URIC ACID BLOOD(Performed 07/16/2022) Performed for Non-Hodgkin's lymphoma, unspecified body region, unspecified non- Hodgkin lymphoma type (HCC), High risk for chemotherapy-induced infectious complication * LDH BLOOD(Performed 07/16/2022) Performed for Non-Hodgkin's lymphoma, unspecified body region, unspecified non- Hodgkin lymphoma type (HCC), High risk for chemotherapy-induced infectious complication * COMPREHENSIVE METABOLIC PANEL(Performed 07/16/2022) Performed for Non-Hodgkin's lymphoma, unspecified body region, unspecified non- Hodgkin lymphoma type (HCC), High risk for chemotherapy-induced infectious complication * CBC W AUTO DIFFERENTIAL(Performed 07/16/2022) Performed for Non-Hodgkin's lymphoma, unspecified body region, unspecified non- Hodgkin lymphoma type (HCC), High risk for chemotherapy-induced infectious complication * IR BOWEN CATH INSERT(Performed 07/15/2022) Performed for Non-Hodgkin's lymphoma, unspecified body region, unspecified non- Hodgkin lymphoma type (HCC) * GLUCOSE - POINT OF CARE(Performed 07/15/2022) * PATHOLOGY TISSUE(Performed 06/08/2022) Performed for Illness, unspecified Results * IR Central Line Removal (04/26/2024 8:32 AM PHYSICAL SCIENCE AIDE) Anatomical Region Laterality Modality X-Ray Angiograph y 04/26/2024 3:21 PM PHYSICAL SCIENCE AIDE Impressions 05/07/2024 8:15 AM PHYSICAL SCIENCE AIDE Impression: Successful removal of a right internal jugular approach since lumen 8 [place] chest port under fluoroscopic guidance. Note: Keep the dressing clean and dry for 5 days. IDr. Francisca PA, was present and performed/supervised the entire procedure. > Dictated by Aguila Pritchett (Rubber Goods Assembler) 04/26/2024 3:21 PM IValeria MD have personally reviewed and interpreted this examination/study. > Interpreting Provider: Valeria Hernandez MD on 05/07/2024 8:15 AM Narrative 05/07/2024 8:15 AM PHYSICAL SCIENCE AIDE PROCEDURE: IR CENTRAL LINE REMOVAL DATE/TIME OF EXAM: 04/26/2024 8:33 AM CLINICAL INFORMATION: History: This is a 64-year-old -[place] female with a history of lymphoma who previously had a chest port placed for chemotherapy administration. She has completed chemotherapy and remains remission and therefore presents for chest port removal Operators: BIJAL Cartagena Anesthesia: 1.Local anesthesia - 10 mL of 1% Lidocaine 2.Intravenous Anxiolysis- Versed 1 mg and Fentanyl 50 mcg Procedure: Removal of a right internal jugular approach 1 lumen 8 [place] chest port under fluoroscopic guidance. Fluoroscopic time: 0.1 minutes Procedure details: The procedure, risks, and possible complications were explained to the patient in detail, and informed consent was obtained. The patient was placed supine on the angiography table. The right neck and upper chest were prepped and draped in the usual sterile manner. A rail flaw detector operator radiograph of the chest was obtained, which showed a right chest port with tip of catheter in the right atrium. Following the local administration of lidocaine, a skin incision was made over the previous incisional scar. Using blunt and sharp dissection techniques, the chest port was removed along with the catheter in its entire length under fluoroscopic guidance. The pocket was irrigated with saline, and the incision was then closed with 3-0 and 4-0 vicryl sutures in layers. Sterile dressing was applied. Final chest radiograph was obtained, which did not show any residual catheter fragment. The patient tolerated the procedure well and was transferred to the holding area in stable condition. There were no immediate complications associated with the procedure. Procedure Note Valeria Hernandez MD - 05/07/2024 PROCEDURE: IR CENTRAL LINE REMOVAL DATE/TIME OF EXAM: 04/26/2024 8:33 AM CLINICAL INFORMATION: History: This is a 64-year-old -[place] female with a history of lymphoma who previously had a chest port placed for chemotherapy administration. She has completed chemotherapy andremains remission and therefore presents for chest port removal Operators: BIJAL Cartagena Anesthesia: 1.Local anesthesia - 10 mL of 1% Lidocaine 2.Intravenous Anxiolysis- Versed 1 mg and Fentanyl 50 mcg Procedure: Removal of a right internal jugular approach 1 lumen 8 [place] chest port under fluoroscopic guidance. Fluoroscopic time: 0.1 minutes Procedure details: The procedure, risks, and possible complications were explained to the patient in detail, and informed consent was obtained. The patient was placed supine on the angiography table. The right neck and upper chestwere prepped and draped in the usual sterile manner. A rail flaw detector operator radiograph ofthe chest was obtained, which showed a right chest port with tip of catheterin the right atrium. Following the local administration of lidocaine, a skin incision wasmade over the previous incisional scar. Using blunt and sharp dissection techniques, the chest port was removed along with the catheter in its entire length under fluoroscopic guidance. The pocket was irrigated with saline, and the incision was then closed with 3-0 and 4-0 vicryl suturesin layers. Sterile dressing was applied. Final chest radiograph wasobtained, which did not show any residual catheter fragment. The patient tolerated the procedure well [facility] There were no immediate complicationsassociated with the procedure. Impression: Successful removal of a right internal jugular approachsince lumen 8 [place] chest port under fluoroscopic guidance. Note: Keep the dressing clean and dry for 5 days. IDr. Francisca PA, was present and performed/supervised the entire procedure. > Dictated by Aguila Pritchett (Rubber Goods Assembler) 04/26/2024 3:21 PM IValeria MD have personally reviewed and interpreted this examination/study. > Interpreting Provider: Valeria Hernandez MD on 05/07/2024 8:15 AM Shreyas Phillips MD IR ORDERABLES * GLUCOSE - POINT OF CARE (04/26/2024 6:51 AM PHYSICAL SCIENCE AIDE) Only the most recent of170 resultswithin the time period is included. Glucose WB/POC 92 70 - 99 mg/dL 04/26/2024 6:52 AM [facility] Specimen Type Venous 04/26/2024 6:52 AM [facility] Blood BLOOD SPECIMEN / Unknown 04/26/2024 6:51 AM PHYSICAL SCIENCE AIDE 04/26/2024 6:52 AM PHYSICAL SCIENCE AIDE Shreyas Phillips MD LAB - POINT OF CARE ORDERABLES [facility] [address] [place] [id number], [facility] [phone] * PT-INR [facility] (04/26/2024 6:47 AM PHYSICAL SCIENCE AIDE) Only the most recent of3 resultswithin the time period is included. PT 13.2 12.1 - 14.8 Seconds 04/26/2024 7:20 AM [facility] INR 1.0 See Comment 04/26/2024 7:20 AM [facility] Comment:The suggested therap eutic range for standard coumadin (warfarin) therapy is an INR of 2.0-3.0. For high-risk patients (Mechanical Mitral Valve Prosthesis, etc.), the suggested prophylactic therapeutic range is an INR of 2.5-3.5. Blood BLOOD SPECIMEN / Unknown Venipuncture / Unknown 04/26/2024 6:47 AM PHYSICAL SCIENCE AIDE 04/26/2024 6:51 AM PHYSICAL SCIENCE AIDE Tyson Sandhu MD LAB - COAGULATION OR DERABLES [facility] [address] [place] [address], [facility] [phone] * (ABNORMAL) CBC W AUTO DIFFERENTIAL (03/16/2024 2:26 PM PHYSICAL SCIENCE AIDE) Only the most recent of71 resultswithin the time period is included. WBC 5.4 4.0 - 10.7 x10E9/L 03/17/2024 2:57 AM [facility] RBC Count 4.04 3.90 - 5.20 x10E12/L 03/17/2024 2:57 AM [facility] Hemoglobin 11.4(L) 11.9 - 15.8 g/dL 03/17/2024 2:57 AM [facility] Hematocrit 37.2 34.8 - 46.1 % 03/17/2024 2:57 AM [facility] MCV 92.1 80.0 - 98.0 fL 03/17/2024 2:57 AM [facility] MCH 28.2 26.7 - 33.6 pg 03/17/2024 2:57 AM [facility] MCHC 30.6(L) 31.7 - 36.3 g/dL 03/17/2024 2:57 AM [facility] RDW-CV 14.7 11.3 - 14.8 % 03/17/2024 2:57 AM [facility] Platelet Count 184 150 - 420 x10E9/L 03/17/2024 2:57 AM [facility] MPV 9.5 7.8 - 11.4 fL 03/17/2024 2:57 AM [facility] Preliminary Absolute Neutrophil 3.75 1.60 - 7.50 x10E9/L 03/17/2024 2:57 AM [facility] Neutrophil % 69.9 41.0 - 74.0 % 03/17/2024 2:57 AM [facility] Lymphocyte % 18.4 17.0 - 47.0 % 03/17/2024 2:57 AM [facility] Monocyte % 8.9 3.0 - 11.0 % 03/17/2024 2:57 AM [facility] Eosinophil % 2.0 0.0 - 7.0 % 03/17/2024 2:57 AM [facility] Basophil % 0.4 0.0 - 1.6 % 03/17/2024 2:57 AM [facility] Immature Granulocytes % 0.4 0.0 - 1.0 % 03/17/2024 2:57 AM [facility] Neutrophil Absolute 3.75 1.60 - 7.50 x10E9/L 03/17/2024 2:57 AM [facility] Lymphocyte Absolute 0.99(L) 1.00 - 4.40 x10E9/L 03/17/2024 2:57 AM [facility] Monocyte Absolute 0.48 0.15 - 1.00 x10E9/L 03/17/2024 2:57 AM [facility] Eosinophil Absolute 0.11 0.00 - 0.60 x10E9/L 03/17/2024 2:57 AM [facility] Basophil Absolute 0.02 0.00 - 0.13 x10E9/L 03/17/2024 2:57 AM [facility] Blood BLOOD SPECIMEN / Unknown Venipuncture / Unknown 03/16/2024 2:26 PM PHYSICAL SCIENCE AIDE 03/17/2024 2:52 AM [facility] Shreyas Phillips MD LAB - HEMATOLOGY ORD ERABLES [facility] [address] [place] [address], [facility] [phone] * (ABNORMAL) COMPREHENSIVE METABOLIC PANEL (03/16/2024 2:26 PM PHYSICAL SCIENCE AIDE) Only the most recent of72 resultswithin the time period is included. BUN 18 7 - 26 mg/dL 03/17/2024 3:20 AM [facility] Creatinine 0.86 0.56 - 0.96 mg/dL 03/17/2024 3:20 AM [facility] Sodium 141 136 - 145 mmol/L 03/17/2024 3:20 AM [facility] Potassium 3.9 3.5 - 4.5 mmol/L 03/17/2024 3:20 AM [facility] Chloride 108(H) 98 - 107 mmol/L 03/17/2024 3:20 AM [facility] CO2 26 22 - 29 mmol/L 03/17/2024 3:20 AM [facility] Glucose 97 70 - 99 mg/dL 03/17/2024 3:20 AM [facility] Calcium 9.6 8.4 - 10.2 mg/dL 03/17/2024 3:20 AM [facility] Protein Total 6.6 6.0 - 8.3 g/dL 03/17/2024 3:20 AM [facility] Albumin 4.3 3.4 - 5.0 g/dL 03/17/2024 3:20 AM [facility] Bilirubin Total 0.2 0.2 - 1.2 mg/dL 03/17/2024 3:20 AM [facility] Alkaline Phosphatase 57 40 - 150 U/L 03/17/2024 3:20 AM [facility] ALT 33 5 - 55 U/L 03/17/2024 3:20 AM [facility] AST 21 5 - 34 U/L 03/17/2024 3:20 AM [facility] Anion Gap 7 6 - 16 03/17/2024 3:20 AM [facility] BUN/Creatinine Ratio 21 7 - 23 03/17/2024 3:20 AM [facility] Osmolality Calculated 294 275 - 295 mOsm/kg 03/17/2024 3:20 AM [facility] Albumin/Globulin Ratio 1.9 1.1 - 2.3 03/17/2024 3:20 AM [facility] eGFR by CKD-EPI 75(L) >=90 mL/min/1.7 3 m2 03/17/2024 3:20 AM [facility] Blood BLOOD SPECIMEN / Unknown Venipuncture / Unknown 03/16/2024 2:26 PM PHYSICAL SCIENCE AIDE 03/17/2024 2:52 AM PHYSICAL SCIENCE AIDE Shreyas Phillips MD LAB - CHEMISTRY SIL[place]INO LENZ Performing Organization Address City/[facility]/ZIP Co de Phone Number [address] [phone], [facility] [phone] * LDH BLOOD (03/16/2024 2:26 PM PHYSICAL SCIENCE AIDE) Only the most recent of56 resultswithin the time period is included. LDH Total 196 125 - 243 Units/L 03/17/2024 3:20 AM PHYSICAL SCIENCE AIDE [facility] Blood BLOOD SPECIMEN / Unknown Venipuncture / Unknown 03/16/2024 2:26 PM PHYSICAL SCIENCE AIDE 03/17/2024 2:52 AM PHYSICAL SCIENCE AIDE Shreyas Phillips MD LAB - CHEMISTRY [place]ENZ Performing Organization Address [facility] Co de Phone Number [address] [address], [facility] [phone] * CA FNA BX W US GDN 1ST LES (02/15/2024 11:08 AM PHYSICAL SCIENCE AIDE) Narrative Sorin Bowden APRN-CNP - 02/15/2024 11:08 AM PHYSICAL SCIENCE AIDE Sorin Bowden APRN-CNP 02/15/2024 11:10 AM Procedure note Procedure: Fine-needle aspiration Indication:Thyroid nodule Site: right TR4 Thyroid Details: The lesion was visualized with an ultrasound probe. Lidocaine with Epinephrine was used for local anesthesia. A 25-gauge needle was used to aspirate the lesion under direct visualization with attention directed towards the capsule. A total of 4 passes were made (3 for regular specimen and 1 for ThyroSeq). There was minimal bleeding. The patient tolerated this very well. A bandage and an icepack were placed to the site. Start: 1048 End: 1054 Sorin PALMA PROCEDURE/ MINOR SURGICAL ORDERABLES * FINE NEEDLE ASPIRATION (STL) (02/15/2024 10:48 AM PHYSICAL SCIENCE AIDE) Only the most recent of3 resultswithin the time period is included. Case Report Medical Cytology Report Case: [id number] Authorizing Provider: Sorin Bowden, Collected: 02/15/2024 10:48 AM MULTIPLEX OPERATOR-EGG CRATER Ordering Location: [facility] - Received: 02/16/2024 07:20 AM ENT Pathologist: Gerald Carlson MD Specimen: Neck Mass, Right TR4 thyroid nodule 03/05/2024 11:13 AM [facility] Specimen Adequacy Adequate cellularity for evaluation. 03/05/2024 11:13 AM [facility] Final Diagnosis Thyroid, right nodule, US-FNA: - Atypia of undetermined significance (TBSRTC category III), nuclear atypia and rare spindle cells 03/05/2024 11:13 AM [facility] Clinical History The patient is a 63 year old female with a TR4 thyroid nodule, s/p two prior FNAs (categories I and III). 03/05/2024 11:13 AM [facility] Gross Description 1 pap stained Thin Prep from 20cc of clear collection fluid 03/05/2024 11:13 AM [facility] Microscopic Description The aspirate shows a good amount of background colloid, as well as scattered macrofollicular bland epithelium. However there are also some small clusters of spindle cells. Comment: Molecular studies, and possibly a serum calcitonin is advised. 03/05/2024 11:13 AM [facility] Addendum 1 Specimen source is Right TR4 thyroid nodule. Neck Mass was entered originally as primary source, but is too general a description. 03/05/2024 11:13 AM [facility] Addendum electronically signed by Tra Cordero on 03/05/2024 at 11:13 AM Pathologist Location at [facility] 03/05/2024 11:13 AM [facility] Disclaimer The performance characteristics of all immunohistochemical and indirect immunofluorescence stains (if any) cited in this report were determined by the Histopathology Laboratory of [facility]. Some of these tests rely on the use of analyte-specific reagents and are subject to specific labeling requirements by the US Food and Drug Administration. Such tests were developed by the [facility] of [facility] and have not been cleared or approved by the FDA. The FDA has determined that such clearance and approval is not necessary. These tests are used for clinical purposes and should not be regarded as investigational or for research. This laboratory is certified under the Clinical Laboratory Improvement Amendments (CLIA) as qualified to perform high complexity clinical laboratory testing. This case has been personally reviewed and interpreted by the attending (teaching) pathologist. 03/05/2024 11:13 AM PHYSICAL SCIENCE AIDE [facility] Embedded Images 03/05/2024 11:13 AM PHYSICAL SCIENCE AIDE [facility] Pathology/Cytolo gy MASS OF NECK / Unknown Collection / Unknown 02/15/2024 10:48 AM PHYSICAL SCIENCE AIDE 02/16/2024 7:20 AM PHYSICAL SCIENCE AIDE Sorin PALMA LAB - PATH OLOGY/CYTOLOGY ORDERABLES Performing Organization Address City/State/[facility] Co de Phone Number [facility] [address] [phone] * PATHOLOGY/CYTOLOGY REPORT ORDER (02/15/2024) 02/15/2024 Narrative 02/15/2024 Ordered by an unspecified provider. Scanned Document LAB - PATHOLOGY/CYTO LOGY ORDERABLES * CA FNA BX W US GDN 1ST LES (01/06/2024 1:23 PM CDT) Narrative Sorin Bowden APRN-CNP - 01/06/2024 1:23 PM CDT Sorin Bowden APRN-CNP 01/06/2024 1:30 PM Procedure note Procedure: Fine-needle aspiration Indication:Thyroid nodule Site: right TR4 Thyroid Details: The lesion was visualized with an ultrasound probe. Lidocaine with Epinephrine was used for local anesthesia. A 25-gauge needle was used to aspirate the lesion under direct visualization with attention directed towards the capsule. This was initially reviewed with cytopathology onsite and additional tissue was recommended. A total of 3 passes were made. There was minimal bleeding. The patient tolerated this very well. A bandage and an icepack were placed to the site. Start: 1300 End: 1317 Sorin Bowden MULTIPLEX OPERATOR-EGG CRATER PROCEDURE/ MINOR SURGICAL ORDERABLES * (ABNORMAL) PHOSPHORUS BLOOD (12/21/2023 3:00 PM CDT) Only the most recent of63 resultswithin the time period is included. Phosphorus 2.8(L) 2.9 - 5.1 mg/dL 12/21/2023 3:42 PM CDT [facility] Blood BLOOD SPECIMEN / Unknown Port / Unknown 12/21/2023 3:00 PM CDT 12/21/2023 3:10 PM CDT Shreyas Phillips MD LAB - CHEMISTRY [place] LENZ [address] [address], [facility] [phone] * MAGNESIUM BLOOD (12/21/2023 3:00 PM CDT) Only the most recent of77 resultswithin the time period is included. Magnesium 2.1 1.6 - 2.6 mg/dL 12/21/2023 3:42 PM CDT [facility] Blood BLOOD SPECIMEN / Unknown Port / Unknown 12/21/2023 3:00 PM CDT 12/21/2023 3:10 PM CDT Shreyas Phillips MD LAB - CHEMISTRY [place]EN[place] [address] [address], [place] [phone] * TSH (12/21/2023 3:00 PM CDT) TSH 0.685 0.350 - 4.940 uIU/mL 12/21/2023 4:00 PM CDT [facility] Blood BLOOD SPECIMEN / Unknown Port / Unknown 12/21/2023 3:00 PM CDT 12/21/2023 3:10 PM CDT Shreyas Phillips MD LAB - CHEMISTRY SIL[place]INO LENZ Performing Organization Address City/[facility]/ZIP Co de Phone Number [facility] [address] [place] [address], [facility] [phone] * T4 FREE (12/21/2023 3:00 PM CDT) Only the most recent of3 resultswithin the time period is included. T4 Free 1.0 0.7 - 1.5 ng/dL 12/21/2023 4:00 PM CDT [facility] Blood BLOOD SPECIMEN / Unknown Port / Unknown 12/21/2023 3:00 PM CDT 12/21/2023 3:10 PM CDT Shreyas Phillips MD LAB - CHEMISTRY SILVINO LENZ Performing Organization Address [facility]/ZIP Co de Phone Number [address] [address], [facility] [phone] * CA FNA BX W US GDN 1ST LES (12/16/2023 10:38 AM CDT) Narrative Sorin Bowden APRN-CNP - 12/16/2023 10:38 AM CDT Sorin Bowden APRN-CNP 12/16/2023 10:47 AM Procedure note Procedure: Fine-needle aspiration Indication:Thyroid nodule Site: right Thyroid Details: The lesion was visualized with an ultrasound probe. 1% lido with epi injected into the site for anesthesia. A 25-gauge needle was used to aspirate the lesion under direct visualization with attention directed towards the capsule. This was initially reviewed with cytopathology onsite and additional tissue was recommended. A total of 6 passes were made. There was minimal bleeding. The patient tolerated this very well. A bandage and an ice pack were placed to the site. Start: 1006 End: 1036 Sorin PALMA PROCEDURE/ MINOR SURGICAL ORDERABLES * US Thyroid (12/06/2023 10:25 AM CDT) Anatomical Region Laterality Modality Chest Ultrasound 12/06/2023 10:2 7 AM CDT Impressions 12/06/2023 11:51 AM CDT IMPRESSION: 1. There is a mixed cystic and solid nodule noted in the right thyroid lobe measuring up to 2.4 cm (TR 4). FNA biopsy is recommended for further evaluation. 2. Solid nodule noted in the right thyroid lobe measuring up to 1.0 cm. Follow-up is recommended for further evaluation. > Dictated by Chaparro Kim MD, MD (residential case manager). I, Peter Avalos MD have personally reviewed and interpreted this examination/study. > Interpreting Provider: Peter Avalos MD on 12/06/2023 11:51 AM Narrative 12/06/2023 11:51 AM CDT PROCEDURE: US THYROID, DATE/TIME OF EXAM: 12/06/2023 10:25 AM, LOCATION [facility] INDICATION: E04.1: Thyroid nodule ADDITIONAL CLINICAL INFORMATION: Ordering Provider Reason For Exam: evaluate thyroid nodule that is enlarging COMPARISON: CT chest abdomen pelvis dated 11/29/2023 FINDINGS: Right thyroid lobe: 4.0 x 2.5 x 2.2 cm Left thyroid lobe: 4.1 x 1.1 x 0.9 cm Isthmus: 4 mm The thyroid lobes are normal in size and echogenicity bilaterally. The isthmus is not thickened. There is no evidence of hyperemia within the thyroid. Multiple colloid cysts are noted in the left thyroid lobe. NODULE 1: Right thyroid lobe measuring 2.4 x 2.4 x 2.1 cm Composition: Mixed cystic and solid (1 point) Echogenicity: Hypoechoic (2 points) Shape: Taller than wide (3 points) Margin: Ill-defined (0 points) Echogenic foci: None. The ACR TI-RADS score is TR4. Fine needle aspiration is recommended. NODULE 2: Right thyroid lobe measuring 0.9 x 0.6 x 1.0 cm Composition: Solid or almost completely solid (2 points) Echogenicity: Hypoechoic (2 points) Shape: Wider than tall (0 points) Margin: Smooth (0 points) Echogenic foci: None. The ACR TI-RADS score is TR4. Follow-up thyroid sonogram in 1, 2, 3, and 5 years is recommended to document stability. Procedure Note Peter Avalos MD - 12/06/2023 PROCEDURE: US THYROID, DATE/TIME OF EXAM: 12/06/2023 10:25 AM, LOCATION [facility] INDICATION: E04.1: Thyroid nodule ADDITIONAL CLINICAL INFORMATION: Ordering Provider Reason For Exam: evaluate thyroid nodule that is enlarging COMPARISON: CT chest abdomen pelvis dated 11/29/2023 FINDINGS: Right thyroid lobe: 4.0 x 2.5 x 2.2 cm Left thyroid lobe: 4.1 x 1.1 x 0.9 cm Isthmus: 4 mm The thyroid lobes are normal in size and echogenicity bilaterally. The isthmus is not thickened. There is no evidence of hyperemia within the thyroid. Multiple colloid cysts are noted in the left thyroid lobe. NODULE 1: Right thyroid lobe measuring 2.4 x 2.4 x 2.1 cm Composition: Mixed cystic and solid (1 point) Echogenicity: Hypoechoic (2 points) Shape: Taller than wide (3 points) Margin: Ill-defined (0 points) Echogenic foci: None. The ACR TI-RADS score is TR4. Fine needle aspiration is recommended. NODULE 2: Right thyroid lobe measuring 0.9 x 0.6 x 1.0 cm Composition: Solid or almost completely solid (2 points) Echogenicity: Hypoechoic (2 points) Shape: Wider than tall (0 points) Margin: Smooth (0 points) Echogenic foci: None. The ACR TI-RADS score is TR4. Follow-up thyroid sonogram in 1, 2, 3, and5 years is recommended to document stability. IMPRESSION: 1. There is a mixed cystic and solid nodule noted in the right thyroidlobe measuring up to 2.4 cm (TR 4). FNA biopsy is recommended for further evaluation. 2. Solid nodule noted in the right thyroid lobe measuring up to 1.0 cm. Follow-up is recommended for further evaluation. > Dictated by Chaparro Kim MD, MD (residential case manager). I, Peter Avalos MD have personally reviewed and interpreted this examination/study. > Interpreting Provider: Peter Avalos MD on 1:51 AM Shreyas Phillips MD US ORDERABLES * CT Chest Abdomen Pelvis W Cont (11/29/2023 9:23 AM CDT) Anatomical Region Laterality Modality Chest, Abdomen, Pelvis Computed Tomography 11/29/2023 10:0 3 AM CDT Impressions 11/29/2023 2:04 PM CDT Impression: 1.No evidence of metastatic disease in the chest, abdomen, or pelvis. 2.Enlarging indeterminate 1.8 cm nodule within the right thyroid lobe. Ultrasound evaluation is recommended. 3.Multiple hepatic and renal cysts are noted concerning for autosomal dominant polycystic kidney-liver disease. Report dictated by Winter Burgess MD I, Peter Avalos MD have personally reviewed and interpreted this examination/study. > Interpreting Provider: Peter Avalos MD on 11/29/2023 2:04 PM Narrative 11/29/2023 2:04 PM CDT PROCEDURE: CT CHEST ABDOMEN PELVIS W CONT, DATE/TIME OF EXAM: 11/29/2023 9:24 AM, LOCATION [facility] INDICATION: C83.30: Diffuse large B-cell lymphoma, unspecified body region (HCC) ADDITIONAL CLINICAL INFORMATION: Ordering Provider Reason For Exam: disease survellence Technologist Note: Additional: COMPARISON: CT from 09/02/2023 TECHNIQUE: CT of the chest, abdomen, and pelvis was performed after the uneventful administration of 100 mL of Isovue 370 intravenous contrast according to standard protocol. Findings: Chest: Lower Neck and Axillae: Enlarging 1.8 cm right thyroid lobe nodule (previously 0.9 cm when measured similarly on CTA from 10/25/2022). Lungs: Centrilobular emphysematous changes in the lungs. Mild patchy groundglass opacities are also seen. No pleural fluid or pneumothorax is present. *Unchanged 4 mm nodule at the posterior right upper lobe (series 4 image 22), previously 3 mm. *Unchanged 4 mm nodule at the posterior right upper lobe (series 4 image 26), previously 3 mm. *A calcified granuloma in the left upper lobe along the mediastinal pleura. Heart and Pericardium: The cardiac chambers are normal in size. No pericardial fluid or thickening is present. Mediastinum and Milagro: No mediastinal hemorrhage is present. No enlarged lymph nodes are present. Calcified mediastinal and hilar granulomas. Thoracic Vasculature: The aorta and its branch vessels are atherosclerotic. Abdomen/pelvis: Liver: Redemonstrated numerous hypodense lesions scattered throughout the liver parenchyma with the largest in the located in segment 7 and measuring 2.8 cm, unchanged. Multiple calcified granulomas. Gallbladder and Bile Ducts: Normal. Spleen: Multiple calcified granulomas are noted in the spleen, likely sequelae of prior granulomatous disease. Pancreas: Normal. Adrenals: Normal. Kidneys: Redemonstrated bilateral renal cysts measuring up to 5.0 cm on the right and 4.0 cm on the left. Gastrointestinal: The stomach and visualized loops of small bowel are unremarkable. Colonic diverticulosis without evidence of diverticulitis is seen. Normal appendix. Mesentery/Peritoneum/Retroperitoneum: No free intraperitoneal air. No free fluid in the abdomen or pelvis. Bladder: Normal. Reproductive Organs: The uterus is absent. Abdominal Vasculature: Extensive atherosclerotic calcification of the aorta and its branch vessels. Bones: Bone windows demonstrate no suspicious lytic or blastic lesions. The visible osseous structures are intact. Degenerative changes are seen in the spine. Soft tissues: Device within the left chest wall. Procedure Note Peter Avalos MD - 11/29/2023 PROCEDURE: CT CHEST ABDOMEN PELVIS W CONT, DATE/TIME OF EXAM: 11/29/2023 9:24 AM, LOCATION [facility] INDICATION: C83.30: Diffuse large B-cell lymphoma, unspecified body region (HCC) ADDITIONAL CLINICAL INFORMATION: Ordering Provider Reason For Exam: disease survellence Technologist Note: Additional: COMPARISON: CT from 09/02/2023 TECHNIQUE: CT of the chest, abdomen, and pelvis was performed after the uneventful administration of 100 mL of Isovue 370 intravenous contrast according to standard protocol. Findings: Chest: Lower Neck and Axillae: Enlarging 1.8 cm right thyroid lobe nodule (previously 0.9 cm whenmeasured similarly on CTA from 10/25/2022). Lungs: Centrilobular emphysematous changes in the lungs. Mild patchygroundglass opacities are also seen. No pleural fluid or pneumothorax is present. *Unchanged 4 mm nodule at the posterior right upper lobe (series 4 image 22), previously 3 mm. *Unchanged 4 mm nodule at the posterior right upper lobe (series 4 image 26), previously 3 mm. *A calcified granuloma in the left upper lobe along the mediastinalpleura. Heart and Pericardium: The cardiac chambers are normal in size. No pericardial fluid orthickening is present. Mediastinum and Milagro: No mediastinal hemorrhage is present. No enlarged lymph nodes arepresent. Calcified mediastinal and hilar granulomas. Thoracic Vasculature: The aorta and its branch vessels are atherosclerotic. Abdomen/pelvis: Liver: Redemonstrated numerous hypodense lesions scattered throughout the liver parenchyma with the largest in the located in segment 7 and measuring2.8 cm, unchanged. Multiple calcified granulomas. Gallbladder and Bile Ducts: Normal. Spleen: Multiple calcified granulomas are noted in the spleen, likely sequelaeof prior granulomatous disease. Pancreas: Normal. Adrenals: Normal. Kidneys: Redemonstrated bilateral renal cysts measuring up to 5.0 cm on the right and 4.0 cm on the left. Gastrointestinal: The stomach and visualized loops of small bowel are unremarkable.Colonic diverticulosis without evidence of diverticulitis is seen. Normalappendix. Mesentery/Peritoneum/Retroperitoneum: No free intraperitoneal air. No free fluid in the abdomen or pelvis. Bladder: Normal. Reproductive Organs: The uterus is absent. Abdominal Vasculature: Extensive atherosclerotic calcification of the aorta and its branch vessels. Bones: Bone windows demonstrate no suspicious lytic or blastic lesions. The visible osseous structures are intact. Degenerative changes are seen inthe spine. Soft tissues: Device within the left chest wall. Impression: 1.No evidence of metastatic disease in the chest, abdomen, or pelvis. 2.Enlarging indeterminate 1.8 cm nodule within the right thyroid lobe. Ultrasound evaluation is recommended. 3.Multiple hepatic and renal cysts are noted concerning for autosomal dominant polycystic kidney-liver disease. Report dictated by Winter Bugress MD I, Peter Avalos MD have personally reviewed and interpreted this examination/study. > Interpreting Provider: Peter Avalos MD on 11/29/2023 2:04PM Bebe Hernandez PA-C CT ORDERABLES * CREATININE - POCT INTERFACED (11/29/2023 9:10 AM CDT) Creatinine POCT 0.73 0.30 - 1.30 mg/dL 11/29/2023 9:16 AM CDT [facility] eGFR >90 >=90 mL/min/1.7 3 m2 11/29/2023 9:16 AM CDT [facility] Blood BLOOD SPECIMEN / Unknown 11/29/2023 9:10 AM CDT 11/29/2023 9:16 AM CDT Bebe Hernandez PA-C LAB - POINT OF CARE ORDERABLES Performing Organization Address City/State/[facility] Co de Phone Number [facility] [address] [place] [address], [facility] [phone] * XR ANKLE LEFT 3VW OR MORE (10/13/2023 2:03 PM CDT) Only the most recent of3 resultswithin the time period is included. Anatomical Region Laterality Modality Lower Extremity Radiographic Tamie ging 10/13/2023 2:40 PM CDT Impressions 10/13/2023 7:13 PM CDT IMPRESSION: Inversion positioning of the ankle may be positional versus contractual. Probable small joint effusion. No definitive tibiotalar or subtalar subluxation. Or dislocation. No fracture. > Dictated by Ezra Angeles DO (residential case manager). I, Az Montoya MD have personally reviewed and interpreted this examination/study. > Interpreting Provider: Az Montoya MD on 10/13/2023 7:13 PM Narrative 10/13/2023 7:13 PM CDT PROCEDURE: XR ANKLE LEFT 3VW OR MORE, DATE/TIME OF EXAM: 10/13/2023 2:03 PM, LOCATION [facility] INDICATION: M79.671: Bilateral foot pain M79.672: Bilateral foot pain ADDITIONAL CLINICAL INFORMATION: Ordering Provider Reason For Exam: PAIN COMPARISON: X-ray left ankle from 02/03/2023 FINDINGS: Partial visualization of internal fixation of the fifth metatarsal. There is inversion positioning of the ankle which may be positional versus contractural. There is a nonacute fracture. There is no significant arthritis. The bones are osteopenic. Small posterior calcaneal spur. Procedure Note Az Montoya MD - 10/13/2023 PROCEDURE: XR ANKLE LEFT 3VW OR MORE, DATE/TIME OF EXAM: 42:03 PM, LOCATION [facility] INDICATION: M79.671: Bilateral foot pain M79.672: Bilateral foot pain ADDITIONAL CLINICAL INFORMATION: Ordering Provider Reason For Exam: PAIN COMPARISON: X-ray left ankle from 02/03/2023 FINDINGS: Partial visualization of internal fixation of the fifth metatarsal. There is inversion positioning of the ankle which may be positionalversus contractural. There is a nonacute fracture. There is no significant arthritis. Thebones are osteopenic. Small posterior calcaneal spur. IMPRESSION: Inversion positioning of the ankle may be positional versus contractual. Probable small joint effusion. No definitive tibiotalar or subtalar subluxation. Or dislocation. No fracture. > Dictated by Ezra Angeles DO (residential case manager). I, Az Montoya MD have personally reviewed and interpreted this examination/study. > Interpreting Provider: Az Montoya MD on 10/13/2023 7:13 PM Mohini Sky MD DIAGNOSTIC IMAGING O RDERABLES * XR FOOT LEFT 3VW OR MORE (10/13/2023 2:02 PM CDT) Anatomical Region Laterality Modality Ankle / Foot Radiographic Tamie ging 10/17/2023 7:36 AM CDT Impressions 10/17/2023 7:37 AM CDT IMPRESSION: No acute osseous abnormality. > Interpreting Provider: Az Montoya MD on 10/17/2023 7:37 AM Narrative 10/17/2023 7:37 AM CDT PROCEDURE: XR FOOT LEFT 3VW OR MORE DATE/TIME OF EXAM: 10/13/2023 2:03 PM CLINICAL INFORMATION: None relevant/not provided if blank. Indication: M79.671: Bilateral foot pain M79.672: Bilateral foot pain Additional History: COMPARISON: 02/03/2023. FINDINGS: Fifth metatarsal plate and screws, unchanged. No acute fracture or dislocation is the joint spaces are normal. The bones are osteopenic. Procedure Note Az Montoya MD - 10/17/2023 PROCEDURE: XR FOOT LEFT 3VW OR MORE DATE/TIME OF EXAM: 10/13/2023 2:03 PM CLINICAL INFORMATION: None relevant/not provided if blank. Indication: M79.671: Bilateral foot pain M79.672: Bilateral foot pain Additional History: COMPARISON: 02/03/2023. FINDINGS: Fifth metatarsal plate and screws, unchanged. No acute fracture or dislocation is the joint spaces are normal. The bones are osteopenic. IMPRESSION: No acute osseous abnormality. > Interpreting Provider: Az Montoya MD on 10/17/2023 7:37 AM Mohini Sky MD DIAGNOSTIC IMAGING O RDERABLES * CT CHEST WO CONTRAST (09/02/2023 12:41 PM CDT) Anatomical Region Laterality Modality Chest Computed Tomogra phy 09/02/2023 12:5 9 PM CDT Impressions 09/02/2023 1:17 PM CDT IMPRESSION: Interval resolution of the left lower lobe groundglass nodule. No new suspicious lesion. > Interpreting Provider: Nakul Bridges MD on 09/02/2023 1:17 PM Narrative 09/02/2023 1:17 PM CDT PROCEDURE: CT CHEST WO CONTRAST DATE/TIME OF EXAM: 09/02/2023 12:42 PM CLINICAL INFORMATION: None relevant/not provided if blank. Indication: C85.10: B-cell lymphoma, unspecified B-cell lymphoma type, unspecified body region (HCC) Additional History: COMPARISON: PET/CT dated 05/27/2023. TECHNIQUE: CT of the chest was performed without intravenous contrast utilizing standard protocol. CT dose reduction technique was used, including Automated Exposure Control. FINDINGS: Central tracheobronchial tree: Clear. Lungs: The left lower lobe groundglass nodule has resolved. No new suspicious pulmonary nodule.. Pleura: No significant pleural effusion. No pneumothorax. Heart: Heart is not enlarged. No significant pericardial effusion. There are coronary artery calcification. Milagro/mediastinum: No abnormally enlarged hilar or mediastinal lymph nodes by noncontrast technique. Bones: No significant osseous changes. Upper abdomen: There are multiple hepatic and splenic granulomas as well as hepatic cysts. Multiple renal lesions are partially evaluated likely cysts. Procedure Note Nakul Bridges MD - 09/02/2023 PROCEDURE: CT CHEST WO CONTRAST DATE/TIME OF EXAM: 09/02/2023 12:42 PM CLINICAL INFORMATION: None relevant/not provided if blank. Indication: C85.10: B-cell lymphoma, unspecified B-cell lymphoma type, unspecified body region (HCC) Additional History: COMPARISON: PET/CT dated 05/27/2023. TECHNIQUE: CT of the chest was performed without intravenous contrast utilizing standard protocol. CT dose reduction technique was used, including Automated ExposureControl. FINDINGS: Central tracheobronchial tree: Clear. Lungs: The left lower lobe groundglass nodule has resolved. No new suspicious pulmonary nodule.. Pleura: No significant pleural effusion. No pneumothorax. Heart: Heart is not enlarged. No significant pericardial effusion. There are coronary artery calcification. Milagro/mediastinum: No abnormally enlarged hilar or mediastinal lymphnodes by noncontrast technique. Bones: No significant osseous changes. Upper abdomen: There are multiple hepatic and splenic granulomas as wellas hepatic cysts. Multiple renal lesions are partially evaluated likelycysts. IMPRESSION: Interval resolution of the left lower lobe groundglass nodule. No new suspicious lesion. > Interpreting Provider: Nakul Bridges MD on 09/02/2023 1:17 PM Shreyas Phillips MD CT ORDERABLES * LIPID PROFILE (06/03/2023 1:20 PM [facility]) Cholesterol Total 135 <200 mg/dL 06/03/2023 2:03 PM [facility] HDL 49 >40 mg/dL 06/03/2023 2:03 PM [facility] Comment: ATP III Classification of HDL Cholesterol: <40 mg/dL: Considered a major risk factor. >60 mg/dL: Considered a negative risk factor. LDL Calculated 60 <100 mg/dL 06/03/2023 2:03 PM [facility] Comment: ATP III Classification of LDL Cholesterol: <100 mg/dL: Optimal 100 - 129 mg/dL: Near Optimal/Above Optimal 130 - 159 mg/dL: Borderline High 160 - 189 mg/dL: High >190 mg/dL: Very High Triglycerides 131 <150 mg/dL 06/03/2023 2:03 PM PHYSICAL SCIENCE AIDE [facility] Comment: ATP III Classification of Triglycerides: <150 mg/dL: Normal 150 - 199 mg/dL: Borderline High 200 - 400 mg/dL: High >500 mg/dL: Very High Blood BLOOD SPECIMEN / Unknown Venipuncture / Unknown 06/03/2023 1:20 PM PHYSICAL SCIENCE AIDE 06/03/2023 1:36 PM PHYSICAL SCIENCE AIDE Bebe Hernandez PA-C LAB - CHEMISTRY ORDKurtis LENZ Performing Organization Address [facility]/ZIP Co de Phone Number [address] [address], [facility] [phone] * URIC ACID BLOOD (06/03/2023 1:19 PM PHYSICAL SCIENCE AIDE) Only the most recent of51 resultswithin the time period is included. Uric Acid 3.1 2.6 - 6.0 mg/dL 06/03/2023 2:03 PM PHYSICAL SCIENCE AIDE [facility] Blood BLOOD SPECIMEN / Unknown Venipuncture / Unknown 06/03/2023 1:19 PM PHYSICAL SCIENCE AIDE 06/03/2023 1:36 PM PHYSICAL SCIENCE AIDE Shreyas Phillips MD LAB - CHEMISTRY SILVINO LENZ Performing Organization Address [facility] Co de Phone Number [address] [address], [facility] [phone] * PET CT WHOLE BODY (05/27/2023 10:07 AM PHYSICAL SCIENCE AIDE) Only the most recent of4 resultswithin the time period is included. Anatomical Region Laterality Modality Positron Emissio n Tomography (PET) 05/27/2023 8:58 AM PHYSICAL SCIENCE AIDE Impressions 05/27/2023 2:44 PM PHYSICAL SCIENCE AIDE IMPRESSION: 1. Interval development of a 1.7 x 1.4 cm groundglass nodule in the left lower lobe with mild increased FDG uptake. Findings may be infectious or inflammatory in nature. However, a low FDG avid malignancy such as adenocarcinoma in situ is not excluded. Recommend follow-up CT at 3 months and/or biopsy if warranted. 2. No FDG avid lymphadenopathy. Deauville Score 1. > Dictated by Mikhail Frazier (Rubber Goods Assembler) 05/27/2023 8:58 AM I, Magalie Farmer DO have personally reviewed and interpreted this examination/study. > Interpreting Provider: Magalie Farmer DO on 05/27/2023 2:44 PM Narrative 05/27/2023 2:44 PM PHYSICAL SCIENCE AIDE PROCEDURE: PET CT WHOLE BODY DATE/TIME OF EXAM: 05/27/2023 8:46 AM CLINICAL INFORMATION: None relevant/not provided if blank. Indication: C85.10: B-cell lymphoma, unspecified B-cell lymphoma type, unspecified body region (CMS-HCC) Additional History: Procedure: FDG PET/CT Study. Referring Physician: Bebe Hernandez PA-C HISTORY: 62-year-old female with DLBCL. Prior PET/CT showed minimal FDG uptake in a subdiaphragmatic lymph node. Deauville score 2. Evaluate for subsequent treatment strategy. TECHNIQUE: 6.28 mCi of F-18 FDG by IV in the right antecubital fossa. PET/CT image acquisition from top of the head to the feet after approximately 60 minutes post-injection with the CT being low-dose, non-contrast. No separate report for the CT was used for attenuation correction and anatomic localization. Blood glucose level at the time of injection was 103 mg/dl. Patient's BMI is 21.5 kg/m . COMPARISON: PET/CT 12/03/2022 FINDINGS: For reference, SUVmax of liver is 2.7. The mediastinal blood pool is 2.2. Head and neck: There is physiological FDG activity throughout the brain parenchyma. No abnormal FDG focus is present. No hypermetabolic or enlarged cervical lymph node is identified. Stable asymmetric enlargement of the right lobe of the thyroid without increased FDG uptake. Chest: There is a right internal jugular approach Port-A-Cath with the tip terminating at the distal SVC. There is a 1.7 x 1.4 cm groundglass nodule in the left lower lobe with mild increased FDG uptake with an SUV max of 1.9. There is an additional 6 mm nodule in the left lower lobe, indeterminate based on the size. There is a calcified granuloma in the left upper lobe. There is right lower lobe dependent atelectasis. There are calcified hilar lymph nodes. Diffuse mild FDG uptake in the esophagus which may represent esophagitis. No pleural effusion or focal pleural thickening is identified. There is no evidence of pneumothorax. The heart size is normal. No pericardial effusion is present. No hypermetabolic or enlarged mediastinal, axillary, or supraclavicular lymphadenopathy is seen. Abdomen and pelvis: Multiple calcified granulomas in the spleen and liver. Redemonstration of multiple hepatic cysts which are similar to prior studies. There are bilateral simple cysts in the kidneys. There is diverticulosis. Otherwise, within the limitations of a noncontrast examination, the visceral abdominal organs are unremarkable. There is normal FDG activity throughout the small and large bowel. No free air or free fluid is identified within the abdomen. There is no hypermetabolic or enlarged abdominal or pelvic lymphadenopathy. Atherosclerotic calcification of the abdominal aorta and its branches is identified. Musculoskeletal: Patient is status post plate and screw fixation of the left fifth metatarsal. No suspicious lytic or blastic lesions are identified. No abnormal FDG uptake is seen within the osseous structures. Multilevel degenerative changes throughout the spinal column are identified. Procedure Note Magalie Farmer, - 05/27/2023 PROCEDURE: PET CT WHOLE BODY DATE/TIME OF EXAM: 05/27/2023 8:46 AM CLINICAL INFORMATION: None relevant/not provided if blank. Indication: C85.10: B-cell lymphoma, unspecified B-cell lymphoma type, unspecified body region (CMS-HCC) Additional History: Procedure: FDG PET/CT Study. Referring Physician: Bebe Hernandez PA-C HISTORY: 62-year-old female with DLBCL. Prior PET/CT showed minimal FDG uptake in a subdiaphragmatic lymph node. Deauville score 2. Evaluate for subsequent treatment strategy. TECHNIQUE: 6.28 mCi of F-18 FDG by IV in the right antecubital fossa. PET/CT image acquisition from top of the head to the feet after approximately 60 minutes post-injection with the CT being low-dose, non-contrast. No separate report for the CT was used for attenuation correction and anatomic localization. Blood glucose level at the time of injection was 103 mg/dl. Patient's BMI is 21.5 kg/m . COMPARISON: PET/CT 12/03/2022 FINDINGS: For reference, SUVmax of liver is 2.7. The mediastinal blood pool is2.2. Head and neck: There is physiological FDG activity throughout the brain parenchyma. No abnormal FDG focus is present. No hypermetabolic or enlarged cervicallymph node is identified. Stable asymmetric enlargement of the right lobe ofthe thyroid without increased FDG uptake. Chest: There is a right internal jugular approach Port-A-Cath with the tip terminating at the distal SVC. There is a 1.7 x 1.4 cm groundglass nodule in the left lower lobe withmild increased FDG uptake with an SUV max of 1.9. There is an additional 6 mm nodule in the left lower lobe, indeterminate based on the size. There deann calcified granuloma in the left upper lobe. There is right lower lobe dependent atelectasis. There are calcified hilar lymph nodes. Diffusemild FDG uptake in the esophagus which may represent esophagitis. No pleural effusion or focal pleural thickening is identified. There isno evidence of pneumothorax. The heart size is normal. No pericardialeffusion is present. No hypermetabolic or enlarged mediastinal, axillary, or supraclavicular lymphadenopathy is seen. Abdomen and pelvis: Multiple calcified granulomas in the spleen and liver. Redemonstrationof multiple hepatic cysts which are similar to prior studies. There are bilateral simple cysts in the kidneys. There is diverticulosis. Otherwise, within the limitations of a noncontrast examination, the visceral abdominal organs are unremarkable. There is normal FDG activity throughout the small and large bowel. No free air or free fluid is identified within the abdomen. There is no hypermetabolic or enlarged abdominal or pelvic lymphadenopathy. Atherosclerotic calcification of the abdominal aorta and its branches is identified. Musculoskeletal: Patient is status post plate and screw fixation of the left fifth metatarsal. No suspicious lytic or blastic lesions are identified. No abnormal FDG uptake is seen within the osseous structures. Multilevel degenerative changes throughout the spinal column are identified. IMPRESSION: 1. Interval development of a 1.7 x 1.4 cm groundglass nodule in the left lower lobe with mild increased FDG uptake. Findings may be infectious or inflammatory in nature. However, a low FDG avid malignancy such as adenocarcinoma in situ is not excluded. Recommend follow-up CT at 3months and/or biopsy if warranted. 2. No FDG avid lymphadenopathy. Deauville Score 1. > Dictated by Mikhail Frazier ([employer]ber Goods [employer]sembler) 05/27/2023 8:58 AM Yannick, Magalie Farmer DO have personally reviewed and interpreted this examination/study. > Interpreting Provider: Magalie Farmer DO on 05/27/2023 2:44 PM Bebe Hernandez PA-C NM ORDERABLES * GLUCOSE SCREEN - POCT (IP) [facility] (05/27/2023 8:35 AM PHYSICAL SCIENCE AIDE) Only the most recent of4 resultswithin the time period is included. Glucose WB/POC 103 70 - 115 mg/dL [facility] POCT TESTING Blood BLOOD SPECIMEN / Unknown 05/27/2023 8:35 AM PHYSICAL SCIENCE AIDE Bebe Hernandez PA-C LAB - POINT OF CARE ORDERABLES Performing Organization Address City/[facility]/ZIP Co de Phone Number [facility] POCT TESTING [address] [place] [address], [facility] [phone] * HEMOGLOBIN A1C (02/03/2023 11:03 AM PHYSICAL SCIENCE AIDE) Only the most recent of3 resultswithin the time period is included. Hemoglobin A1c 5.4 <=5.6 % 02/03/2023 3:39 PM [facility] Estimated Average Glucose 108 mg/dL 02/03/2023 3:39 PM [facility] Comment: HbA1c Interpretation: Normal : < 5.7% Pre-diabetes: 5.7-6.4% Diabetes: Equal to or greater than 6.5% Test results diagnostic of diabetes should be repeated for confirmation. Treatment target values recommended by ADA and other clinical organizations should be used to evaluate metabolic control in patients. Reference: [place] [employer], Standards of Care in Diabetes -2020 In patients 70 years and older consider HbA1c target range of 7.0-7.5% (Reference: Vishal Davis, et al. JAMDA. 2012) The Sebia assay for the measurement of HbA1c is a National Glycohemoglobin Standardization Program (NGSP) certified method. Blood BLOOD SPECIMEN / Unknown Lab Venipuncture / Unknown 02/03/2023 11:03 AM PHYSICAL SCIENCE AIDE 02/03/2023 11:29 AM PHYSICAL SCIENCE AIDE Mohini Sky MD LAB - CHEMISTRY SILVINO LENZ [facility] [address] [place] [address], [facility] [phone] * TYPE + SCREEN PANEL (02/03/2023 10:58 AM PHYSICAL SCIENCE AIDE) Only the most recent of23 resultswithin the time period is included. Antibody Screen NEG 11:55 AM PHYSICAL SCIENCE AIDE [facility] BLOOD BANK LAB ABO Rh A POS 02/03/2023 11:55 AM PHYSICAL SCIENCE AIDE [facility] BLOOD BANK LAB Blood Bank BLOOD SPECIMEN / Unknown 02/03/2023 10:58 AM PHYSICAL SCIENCE AIDE 02/03/2023 11:01 AM PHYSICAL SCIENCE AIDE Shreyas Phillips MD LAB - BLOOD BANK ORD ERABLES [facility] BLOOD BANK LAB [address] [place] [address], [facility] [phone] * XR ANKLE RIGHT 3VW OR MORE (02/03/2023 9:09 AM PHYSICAL SCIENCE AIDE) Anatomical Region Laterality Modality Lower Extremity Radiographic Tamie ging 02/03/2023 9:48 AM PHYSICAL SCIENCE AIDE Impressions 02/03/2023 9:54 AM PHYSICAL SCIENCE AIDE IMPRESSION: Bilateral osteopenia identified. No focal bony lesions or erosions are seen. No significant soft tissue swelling. > Interpreting Provider: Peter Avalos MD on 02/03/2023 9:54 AM Narrative 02/03/2023 9:54 AM PHYSICAL SCIENCE AIDE PROCEDURE: XR ANKLE RIGHT 3VW OR MORE, XR ANKLE LEFT 3VW OR MORE, XR FOOT LEFT WT BEARING 3VW, XR FOOT RIGHT WT BEARING 3VW, DATE/TIME OF EXAM: 02/03/2023 9:09 AM, LOCATION [facility] INDICATION: M79.671: Bilateral foot pain M79.672: Bilateral foot pain ADDITIONAL CLINICAL INFORMATION: Ordering Provider Reason For Exam: pain Technologist Note: Additional: COMPARISON: None. Findings: Right ankle: No fractures or dislocations seen. Osteopenia is noted. Joint spaces are preserved. No bony erosions or destructions are seen. No significant soft tissue swelling noted. Left ankle: No fractures or dislocations seen. Osteopenia seen. Joint spaces are preserved. No bony erosions or destructions are seen. No significant soft tissue swelling noted. Right foot: No fractures or dislocations seen. Osteopenia is seen. Joint spaces are preserved. No bony erosions or destructions are seen. No significant soft tissue swelling noted. Left foot: No fractures or dislocations seen. Transfixation of the fifth metatarsal bone with plate and screws seen. Osteopenia noted. Joint spaces are preserved. No bony erosions or destructions are seen. No significant soft tissue swelling noted. Procedure Note Peter Avalos MD - 02/03/2023 PROCEDURE: XR ANKLE RIGHT 3VW OR MORE, XR ANKLE LEFT 3VW OR MORE, XRFOOT LEFT WT BEARING 3VW, XR FOOT RIGHT WT BEARING 3VW, DATE/TIME OF EXAM: 02/03/2023 9:09 AM, LOCATION [facility] INDICATION: M79.671: Bilateral foot pain M79.672: Bilateral foot pain ADDITIONAL CLINICAL INFORMATION: Ordering Provider Reason For Exam: pain Technologist Note: Additional: COMPARISON: None. Findings: Right ankle: No fractures or dislocations seen. Osteopenia is noted.Joint spaces are preserved. No bony erosions or destructions are seen. No significant soft tissue swelling noted. Left ankle: No fractures or dislocations seen. Osteopenia seen. Joint spaces are preserved. No bony erosions or destructions are seen. No significant soft tissue swelling noted. Right foot: No fractures or dislocations seen. Osteopenia is seen.Joint spaces are preserved. No bony erosions or destructions are seen. No significant soft tissue swelling noted. Left foot: No fractures or dislocations seen. Transfixation of the fifth metatarsal bone with plate and screws seen. Osteopenia noted. Jointspaces are preserved. No bony erosions or destructions are seen. Nosignificant soft tissue swelling noted. IMPRESSION: Bilateral osteopenia identified. No focal bony lesions or erosions are seen. No significant soft tissue swelling. > Interpreting Provider: Peter Avalos MD on 39:54 AM Mohini Sky MD DIAGNOSTIC IMAGING O RDERABLES * XR FOOT LEFT WT BEARING 3VW (02/03/2023 9:08 AM PHYSICAL SCIENCE AIDE) Anatomical Region Laterality Modality Ankle / Foot Radiographic Tamie ging 02/03/2023 9:48 AM PHYSICAL SCIENCE AIDE Impressions 02/03/2023 9:54 AM PHYSICAL SCIENCE AIDE IMPRESSION: Bilateral osteopenia identified. No focal bony lesions or erosions are seen. No significant soft tissue swelling. > Interpreting Provider: Peter Avalos MD on 02/03/2023 9:54 AM Narrative 02/03/2023 9:54 AM PHYSICAL SCIENCE AIDE PROCEDURE: XR ANKLE RIGHT 3VW OR MORE, XR ANKLE LEFT 3VW OR MORE, XR FOOT LEFT WT BEARING 3VW, XR FOOT RIGHT WT BEARING 3VW, DATE/TIME OF EXAM: 02/03/2023 9:09 AM, LOCATION [facility] INDICATION: M79.671: Bilateral foot pain M79.672: Bilateral foot pain ADDITIONAL CLINICAL INFORMATION: Ordering Provider Reason For Exam: pain Technologist Note: Additional: COMPARISON: None. Findings: Right ankle: No fractures or dislocations seen. Osteopenia is noted. Joint spaces are preserved. No bony erosions or destructions are seen. No significant soft tissue swelling noted. Left ankle: No fractures or dislocations seen. Osteopenia seen. Joint spaces are preserved. No bony erosions or destructions are seen. No significant soft tissue swelling noted. Right foot: No fractures or dislocations seen. Osteopenia is seen. Joint spaces are preserved. No bony erosions or destructions are seen. No significant soft tissue swelling noted. Left foot: No fractures or dislocations seen. Transfixation of the fifth metatarsal bone with plate and screws seen. Osteopenia noted. Joint spaces are preserved. No bony erosions or destructions are seen. No significant soft tissue swelling noted. Procedure Note Peter Avalos MD - 02/03/2023 PROCEDURE: XR ANKLE RIGHT 3VW OR MORE, XR ANKLE LEFT 3VW OR MORE, XRFOOT LEFT WT BEARING 3VW, XR FOOT RIGHT WT BEARING 3VW, DATE/TIME OF EXAM: 02/03/2023 9:09 AM, LOCATION [facility] INDICATION: M79.671: Bilateral foot pain M79.672: Bilateral foot pain ADDITIONAL CLINICAL INFORMATION: Ordering Provider Reason For Exam: pain Technologist Note: Additional: COMPARISON: None. Findings: Right ankle: No fractures or dislocations seen. Osteopenia is noted.Joint spaces are preserved. No bony erosions or destructions are seen. No significant soft tissue swelling noted. Left ankle: No fractures or dislocations seen. Osteopenia seen. Joint spaces are preserved. No bony erosions or destructions are seen. No significant soft tissue swelling noted. Right foot: No fractures or dislocations seen. Osteopenia is seen.Joint spaces are preserved. No bony erosions or destructions are seen. No significant soft tissue swelling noted. Left foot: No fractures or dislocations seen. Transfixation of the fifth metatarsal bone with plate and screws seen. Osteopenia noted. Jointspaces are preserved. No bony erosions or destructions are seen. Nosignificant soft tissue swelling noted. IMPRESSION: Bilateral osteopenia identified. No focal bony lesions or erosions are seen. No significant soft tissue swelling. > Interpreting Provider: Peter Avalos MD on 39:54 AM Mohini Sky MD DIAGNOSTIC IMAGING O RDERABLES * XR FOOT RIGHT WT BEARING 3VW (02/03/2023 9:08 AM PHYSICAL SCIENCE AIDE) Anatomical Region Laterality Modality Ankle / Foot Radiographic Tamie ging 02/03/2023 9:48 AM PHYSICAL SCIENCE AIDE Impressions 02/03/2023 9:54 AM PHYSICAL SCIENCE AIDE IMPRESSION: Bilateral osteopenia identified. No focal bony lesions or erosions are seen. No significant soft tissue swelling. > Interpreting Provider: Peter Avalos MD on 02/03/2023 9:54 AM Narrative 02/03/2023 9:54 AM PHYSICAL SCIENCE AIDE PROCEDURE: XR ANKLE RIGHT 3VW OR MORE, XR ANKLE LEFT 3VW OR MORE, XR FOOT LEFT WT BEARING 3VW, XR FOOT RIGHT WT BEARING 3VW, DATE/TIME OF EXAM: 02/03/2023 9:09 AM, LOCATION [facility] INDICATION: M79.671: Bilateral foot pain M79.672: Bilateral foot pain ADDITIONAL CLINICAL INFORMATION: Ordering Provider Reason For Exam: pain Technologist Note: Additional: COMPARISON: None. Findings: Right ankle: No fractures or dislocations seen. Osteopenia is noted. Joint spaces are preserved. No bony erosions or destructions are seen. No significant soft tissue swelling noted. Left ankle: No fractures or dislocations seen. Osteopenia seen. Joint spaces are preserved. No bony erosions or destructions are seen. No significant soft tissue swelling noted. Right foot: No fractures or dislocations seen. Osteopenia is seen. Joint spaces are preserved. No bony erosions or destructions are seen. No significant soft tissue swelling noted. Left foot: No fractures or dislocations seen. Transfixation of the fifth metatarsal bone with plate and screws seen. Osteopenia noted. Joint spaces are preserved. No bony erosions or destructions are seen. No significant soft tissue swelling noted. Procedure Note Peter Avalos MD - 02/03/2023 PROCEDURE: XR ANKLE RIGHT 3VW OR MORE, XR ANKLE LEFT 3VW OR MORE, XRFOOT LEFT WT BEARING 3VW, XR FOOT RIGHT WT BEARING 3VW, DATE/TIME OF EXAM: 02/03/2023 9:09 AM, LOCATION [facility] INDICATION: M79.671: Bilateral foot pain M79.672: Bilateral foot pain ADDITIONAL CLINICAL INFORMATION: Ordering Provider Reason For Exam: pain Technologist Note: Additional: COMPARISON: None. Findings: Right ankle: No fractures or dislocations seen. Osteopenia is noted.Joint spaces are preserved. No bony erosions or destructions are seen. No significant soft tissue swelling noted. Left ankle: No fractures or dislocations seen. Osteopenia seen. Joint spaces are preserved. No bony erosions or destructions are seen. No significant soft tissue swelling noted. Right foot: No fractures or dislocations seen. Osteopenia is seen.Joint spaces are preserved. No bony erosions or destructions are seen. No significant soft tissue swelling noted. Left foot: No fractures or dislocations seen. Transfixation of the fifth metatarsal bone with plate and screws seen. Osteopenia noted. Jointspaces are preserved. No bony erosions or destructions are seen. Nosignificant soft tissue swelling noted. IMPRESSION: Bilateral osteopenia identified. No focal bony lesions or erosions are seen. No significant soft tissue swelling. > Interpreting Provider: Peter Avalos MD on 39:54 AM Mohini Sky MD DIAGNOSTIC IMAGING O RDERABLES * (ABNORMAL) DIFFERENTIAL MANUAL (12/31/2022 2:07 PM CDT) Only the most recent of41 resultswithin the time period is included. WBC (corrected for NRBC) 1.3 10 3/uL 12/31/2022 3:18 PM [facility] Total Cell Count 50 12/31/2022 3:18 PM [facility] Neutrophils Absolute Manual 0.36(L) 1.60 - 7.00 10 3/uL 12/31/2022 3:18 PM [facility] Comment:(BANDS+SEGS) x WBC = NEUT # (ANC) Lymphocyte Absolute Manual 0.81(L) 1.10 - 3.90 10 3/uL 12/31/2022 3:18 PM [facility] Monocytes Absolute Manual 0.10(L) 0.26 - 1.07 10 3/uL 12/31/2022 3:18 PM [facility] Eosinophils Absolute Manual 0.03 0.00 - 0.47 10 3/uL 12/31/2022 3:18 PM [facility] Neutrophil % Manual 28(L) 35 - 70 % 12/31/2022 3:18 PM [facility] Lymphocyte % Manual 62(H) 20 - 43 % 12/31/2022 3:18 PM [facility] Monocytes % Manual 8 5 - 13 % 12/31/2022 3:18 PM [facility] Eosinophils % Manual 2 0 - 6 % 12/31/2022 3:18 PM [facility] Platelet Estimate Slightly Decreased(A) Adequate 12/31/2022 3:18 PM [facility] Ovalocytes 1+(A) None 12/31/2022 3:18 PM [facility] Tear Drop Cells 1+(A) None 3:18 PM [facility] Blood BLOOD SPECIMEN / Unknown Venipuncture / Unknown 12/31/2022 2:07 PM CDT 12/31/2022 2:22 PM CDT Shreyas Phillips MD LAB - HEMATOLOGY ORD ERABLES [facility] [address] [place] [address], [facility] [phone] * CARDIAC EKG ORDER (12/29/2022 1:35 PM CDT) Only the most recent of4 resultswithin the time period is included. Narrative 12/29/2022 1:35 PM CDT Ordered by an unspecified provider. Scanned Document CARDIAC SERVICES ORD ERABLES * EKG 12-LEAD (12/28/2022 11:19 AM CDT) Only the most recent of4 resultswithin the time period is included. Ventricular Rate 70 BPM [facility] MUSE Atrial Rate 70 BPM [facility] MUSE P-R Interval 168 ms [facility] MUSE QRS Duration ms 92 ms [facility] MUSE Q-T Interval ms 484 ms [facility] MUSE QTC Calculation (Bezet) 522 ms [facility] MUSE Calculated P [place] 67 degrees [facility] MUSE Calculated R [place] -27 degrees [facility] MUSE Calculated T [place] 50 degrees [facility] MUSE Interpretation EKG NORMAL SINUS RHYTHM PROLONGED QT ABNORMAL ECG WHEN COMPARED WITH ECG OF 17-DEC-2022 12:42, CRITERIA FOR INFERIOR INFARCT ARE NO LONGER PRESENT Confirmed by TAYLOR GALEANO MD ([id number]) on 12/30/2022 7:48:05 PM [facility] MUSE 12/28/2022 11:1 9 AM CDT 12/30/2022 7:48 PM CDT Terry Centeno MD ECG ORDERABLES Performing Organization Address City/[facility]/ZIP Co de Phone Number [facility] MUSE * TROPONIN-I HIGH SENSITIVE REFLEX 1HOUR (12/28/2022 11:14 AM CDT) Only the most recent of3 resultswithin the time period is included. Troponin I High Sensitive 9 <=14 ng/L 12/28/2022 12:33 PM CDT [facility] Delta Troponin I HS 12/28/2022 12:33 PM [facility] Comment:Delta value intentio pascual not calculated. Baseline to 1 hour specimen collection interval exceeded. Blood BLOOD SPECIMEN / Unknown Venipuncture / Unknown 12/28/2022 11:14 AM CDT 12/28/2022 11:57 AM CDT Terry Centeno MD LAB - CHEMISTRY SILVINO Tolbert Organization Address City/State/ZIP Co de Phone Number [facility] [address] [place] [address], [facility] [phone] * (ABNORMAL) URINALYSIS REFLEX TO MICROSCOPIC NO CULTURE (12/28/2022 11:14 AM CDT) Only the most recent of5 resultswithin the time period is included. Color UA Colorless(A ) Straw, Yellow 12/28/2022 12:01 PM [facility] Clarity UA Clear Clear 12/28/2022 12:01 PM [facility] Specific [place] UA 1.003(L) 1.005 - 1.030 12/28/2022 12:01 PM [facility] pH UA 7.0 5.0 - 8.0 pH 12/28/2022 12:01 PM [facility] Protein UA Negative Negative 12/28/2022 12:01 PM [facility] Glucose UA Negative Negative 12/28/2022 12:01 PM [facility] Ketone UA Negative Negative 12/28/2022 12:01 PM [facility] Bilirubin UA Negative Negative 12/28/2022 12:01 PM [facility] Blood UA Negative Negative 12/28/2022 12:01 PM [facility] Nitrite UA Negative Negative 12/28/2022 12:01 PM [facility] Leukocyte Esterase Negative Negative 12/28/2022 12:01 PM [facility] Urobilinogen UA Negative Negative mg/dL 12/28/2022 12:01 PM [facility] RBC UA 0-2 None Seen, 0-2, 3-5 /HPF 12/28/2022 12:01 PM [facility] WBC UA 0-5 None Seen, 0-5 /HPF 12/28/2022 12:01 PM CDT [facility] Squamous Epithelial Cells UA 0-2 None Seen, 0-2, 3-5 /HPF 12/28/2022 12:01 PM CDT [facility] Urine URINE SPECIMEN OBTAINED BY CLEAN CATCH PROCEDURE / Unknown Collection / Unknown 12/28/2022 11:14 AM CDT 12/28/2022 11:51 AM CDT Narrative [facility] - 12/28/2022 12:01 PM CDT Terry Centeno MD LAB - URINALYSIS ORD ERABLES [facility] [address] [place] [address], [place] [phone] * LACTIC ACID BLOOD REFLEX TO REPEAT (12/28/2022 8:32 AM CDT) Only the most recent of2 resultswithin the time period is included. Lactic Acid-Stat 1.5 <=2.0 mmol/L 12/28/2022 9:07 AM CDT [facility] Blood BLOOD SPECIMEN / Unknown Venipuncture / Unknown 12/28/2022 8:32 AM CDT 12/28/2022 8:43 AM CDT Terry Centeno MD LAB - CHEMISTRY ORDE RABLES [facility] [address] [place] [address], [place] [phone] * TROPONIN-I HIGH SENSITIVE BASELINE + 1HR (12/28/2022 8:32 AM CDT) Only the most recent of3 resultswithin the time period is included. Troponin I High Sensitive 11 <=14 ng/L 12/28/2022 9:10 AM CDT [facility] Blood BLOOD SPECIMEN / Unknown Venipuncture / Unknown 12/28/2022 8:32 AM CDT 12/28/2022 8:51 AM CDT Terry Centeno MD LAB - CHEMISTRY SILVINO LENZ Performing Organization Address [facility]/ZIP Co de Phone Number [address] [address], [facility] [phone] * (ABNORMAL) TSH REFLEX FREE T4 (12/28/2022 8:32 AM CDT) Only the most recent of2 resultswithin the time period is included. TSH 0.142(L) 0.350 - 4.940 uIU/mL 12/28/2022 9:24 AM CDT [facility] Blood BLOOD SPECIMEN / Unknown Venipuncture / Unknown 12/28/2022 8:32 AM CDT 12/28/2022 8:50 AM CDT Terry Centeno MD LAB - CHEMISTRY SILVINO LENZ Performing Organization Address [facility] Co de Phone Number [address] [address], [facility] [phone] * B-TYPE NATRIURETIC PEPTIDE (12/28/2022 8:32 AM CDT) BNP 29 <100 pg/mL 12/28/2022 9:18 AM CDT [facility] Comment: A decision threshold of 100 pg/mL has been demonstrated to provide the maximal combination of sensitivity, specificity and predictive value for the diagnosis of congestive heart failure (CHF). Virtually all patients with no evidence of CHF have BNP values less than 100 pg/mL. A BNP value greater than 100 pg/mL is consistent with the diagnosis of CHF in the appropriate clinical setting. In a study of 693 patients (male and female) with diagnosed CHF, the following values were determined based on the NYHA functional classification system: NYHA Functional Class Mean Valule (pg/mL) % >100 pg/mL I 320 58.1 II 432 73.0 III 656 79.0 IV 1635 98.3 Blood BLOOD SPECIMEN / Unknown Venipuncture / Unknown 12/28/2022 8:32 AM CDT 12/28/2022 8:43 AM CDT Terry Centeno MD LAB - CHEMISTRY SILVINO LENZ [facility] [address] [place], [place] [address], [facility] [phone] * (ABNORMAL) URINALYSIS REFLEX MICROSCOPIC REFLEX CULTURE (12/17/2022 6:33 PM CDT) Only the most recent of2 resultswithin the time period is included. Color UA Straw Straw, Yellow 12/17/2022 6:44 PM CDT [facility] Clarity UA Clear Clear 12/17/2022 6:44 PM CDT [facility] Specific Eaton UA 1.003(L) 1.005 - 1.030 12/17/2022 6:44 PM CDT [facility] pH UA 6.0 5.0 - 8.0 pH 12/17/2022 6:44 PM CDT [facility] Protein UA Negative Negative 12/17/2022 6:44 PM CDT [facility] Glucose UA Negative Negative 12/17/2022 6:44 PM CDT [facility] Ketone UA Negative Negative 12/17/2022 6:44 PM CDT [facility] Bilirubin UA Negative Negative 12/17/2022 6:44 PM CDT [facility] Blood UA Negative Negative 12/17/2022 6:44 PM CDT [facility] Nitrite UA Negative Negative 12/17/2022 6:44 PM CDT [facility] Leukocyte Esterase Negative Negative 12/17/2022 6:44 PM CDT [facility] Urobilinogen UA Negative Negative mg/dL 12/17/2022 6:44 PM CDT [facility] Comment UA Microscopic not indicated. 12/17/2022 6:44 PM CDT [facility] Urine URINE SPECIMEN OBTAINED BY CLEAN CATCH PROCEDURE / Unknown Collection / Unknown 12/17/2022 6:33 PM CDT 12/17/2022 6:37 PM CDT Narrative [facility] - 12/17/2022 6:44 PM CDT Terry Centeno MD LAB - URINALYSIS ORD JOELLE [facility] [address] [place] [address], [facility] [phone] * CT HEAD WO CONTRAST (12/17/2022 2:04 PM CDT) Only the most recent of2 resultswithin the time period is included. Anatomical Region Laterality Modality Head Computed Tomogra phy 12/17/2022 1:59 PM CDT Impressions 12/17/2022 2:42 PM CDT IMPRESSION: 1. No acute intracranial process. 2. Chronic small vessel ischemic disease of the brain with cerebral volume loss. The report is dictated by Darlyn Cabrera Dr, MD (residential case manager) I, Juaquin Mcleod MD have personally reviewed and interpreted this examination/study. > Interpreting Provider: Juaquin Mcleod MD on 12/17/2022 2:42 PM Narrative 12/17/2022 2:42 PM CDT PROCEDURE: CT HEAD WO CONTRAST, DATE/TIME OF EXAM: 12/17/2022 2:05 PM, LOCATION [facility] INDICATION: R53.83: Fatigue, unspecified type ADDITIONAL CLINICAL INFORMATION: Ordering Provider Reason For Exam: weakness Technologist Note: Additional: EXAMINATION: Computed tomography (CT) of the head without contrast TECHNIQUE: CT of the head was performed without contrast according to standard protocol. CT dose reduction technique was used, including Automated Exposure Control. COMPARISON: No prior study is available for comparison at the time of this dictation. FINDINGS: No acute intracranial hemorrhage or intra- or extra-axial fluid collections are identified. There is mild cerebral volume loss with ex vacuo dilation of the lateral ventricles. The basal cisterns are patent. No mass effect or midline shift is seen. The cantrell-white matter differentiation is normal. Areas of hypoattenuation around the lateral ventricles suggest chronic ischemic disease. Atherosclerotic calcifications are seen at the bilateral internal carotid siphons. Besides bilateral lens replacement, the visualized portions of the orbits, paranasal sinuses, and mastoids appear normal. No acute calvarial fracture is identified. Procedure Note Juaquin Mcleod MD - 12/17/2022 PROCEDURE: CT HEAD WO CONTRAST, DATE/TIME OF EXAM: 12/17/2022 2:05 PM, LOCATION [facility] INDICATION: R53.83: Fatigue, unspecified type ADDITIONAL CLINICAL INFORMATION: Ordering Provider Reason For Exam: weakness Technologist Note: Additional: EXAMINATION: Computed tomography (CT) of the head without contrast TECHNIQUE: CT of the head was performed without contrast according to standard protocol. CT dose reduction technique was used, including Automated Exposure Control. COMPARISON: No prior study is available for comparison at the time ofthis dictation. FINDINGS: No acute intracranial hemorrhage or intra- or extra-axial fluidcollections are identified. There is mild cerebral volume loss with ex vacuodilation of the lateral ventricles. The basal cisterns are patent. No mass effector midline shift is seen. The cantrell-white matter differentiation is normal. Areas of hypoattenuation around the lateral ventricles suggest chronic ischemic disease. Atherosclerotic calcifications are seen at thebilateral internal carotid siphons. Besides bilateral lens replacement, the visualized portions of theorbits, paranasal sinuses, and mastoids appear normal. No acute calvarial fracture is identified. IMPRESSION: 1. No acute intracranial process. 2. Chronic small vessel ischemic disease of the brain with cerebralvolume loss. The report is dictated by Darlyn Cabrera Dr, MD (residential case manager) I, Juaquin Mcleod MD have personally reviewed and interpreted this examination/study. > Interpreting Provider: Juaquin Mcleod MD on 12/17/2022 2:42 PM Terry Centeno MD CT ORDERABLES * XR CHEST 1VW PORTABLE (12/17/2022 12:55 PM CDT) Only the most recent of2 resultswithin the time period is included. Anatomical Region Laterality Modality Chest Radiographic Tamie ging 12/17/2022 1:05 PM CDT Narrative 12/17/2022 1:47 PM CDT PROCEDURE: XR CHEST 1VW PORTABLE, DATE/TIME OF EXAM: 12/17/2022 1:05 PM, LOCATION [facility] INDICATION: R53.83: Fatigue, unspecified type ADDITIONAL CLINICAL INFORMATION: Ordering Provider Reason For Exam: fatigue COMPARISON: Chest x-ray on 11/18/2022. FINDINGS/IMPRESSION: A right-sided chest port is in place with its right IJ catheter tip terminating in the cavoatrial junction. Minimal atelectasis is seen at the left base. There is no focal consolidation, pleural effusion, or pneumothorax. The cardiomediastinal silhouette is normal. The visible bony thorax is intact. Report dictated by Cody Hinkle MD (residential case manager). Daisy Lanier MD have personally reviewed and interpreted this examination/study. > Interpreting Provider: Daisy Land MD on 12/17/2022 1:47 PM Procedure Note Daisy Land MD - 12/17/2022 PROCEDURE: XR CHEST 1VW PORTABLE, DATE/TIME OF EXAM: 12/17/2022 1:05PM, LOCATION [facility] INDICATION: R53.83: Fatigue, unspecified type ADDITIONAL CLINICAL INFORMATION: Ordering Provider Reason For Exam: fatigue COMPARISON: Chest x-ray on 11/18/2022. FINDINGS/IMPRESSION: A right-sided chest port is in place with its right IJ catheter tip terminating in the cavoatrial junction. Minimal atelectasis is seen at the left base. There is no focal consolidation, pleural effusion, or pneumothorax. The cardiomediastinal silhouette is normal. The visible bony thorax isintact. Report dictated by Cody Hinkle MD (residential case manager). Daisy Lanier MD have personally reviewed and interpreted this examination/study. > Interpreting Provider: Daisy Land MD on 12/17/2022 1:47 PM Terry Centeno MD DIAGNOSTIC IMAGING O RDERABLES * MANUAL DIFFERENTIAL REVIEWED (12/03/2022 8:54 AM CDT) Only the most recent of2 resultswithin the time period is included. Manual Differential Reviewed DIFFERENTIAL REVIEW - CONFIRMED DIFFERENTIAL REVIEW - CONFIRMED 12/08/2022 5:27 PM CDT [facility] Blood BLOOD SPECIMEN / Unknown 12/03/2022 8:54 AM CDT 12/03/2022 9:02 AM CDT Narrative [facility] - 12/08/2022 5:27 PM CDT Slight left shifted neutrophils some with reactive changes. Rare immature appearing monocyte. Shreyas Phillips MD LAB - HEMATOLOGY ORD ERABLES [facility] [address] [place] [address], [facility] [phone] * PATHOLOGY PERIPHERAL SMEAR REVIEW (11/24/2022 11:23 AM CDT) Only the most recent of2 resultswithin the time period is included. [facility] Pathology Diff Review DIFFERENTIAL REVIEW - CONFIRMED DIFFERENTIAL REVIEW - CONFIRMED 11/24/2022 6:01 PM CDT [facility] Blood BLOOD SPECIMEN / Unknown Venipuncture / Unknown 11/24/2022 11:23 AM CDT 11/24/2022 11:28 AM CDT Narrative [facility] - 11/24/2022 6:01 PM CDT Final diagnosis: Peripheral blood, smear: -Leukopenia -Anemia -Thrombocytopenia Review of the peripheral smear confirms the differential data. Leukocytes are severely decreased. Lymphocytes are decreased and show reactive morphology. Neutrophils are rare. Monocytes are rare and slightly immature. RBCs are decreased, normochromic, normocytic, and show anisopoikilocytosis. No obvious involvement by circulating lymphoma cells. Platelets are decreased. Correlation with flow cytometric analysis is recommended. 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 She was admitted following hypotension and unresponsiveness after G-CSF administration. Shanna Naranjo MD Attending Physician Department of Pathology Transfusion Medicine Shreyas Phillips MD LAB - PATHOLOGY/CYTO LOGY ORDERABLES Performing Organization Address [facility] Co de Phone Number [facility] [address] [place] [address], [facility] [phone] * (ABNORMAL) CBC W/O DIFFERENTIAL (11/19/2022 5:39 AM CDT) Only the most recent of17 resultswithin the time period is included. [facility] WBC 3.1(L) 3.5 - 10.5 10 3/uL 11/19/2022 6:39 AM CDT [facility] RBC 2.76(L) 3.80 - 5.20 10 6/uL 11/19/2022 6:39 AM CDT [facility] Hemoglobin 8.7(L) 12.0 - 15.6 g/dL 11/19/2022 6:39 AM [facility] Hematocrit 27.0(L) 35.0 - 45.0 % 11/19/2022 6:39 AM [facility] MCV 97.8 80.7 - 98.3 fL 11/19/2022 6:39 AM [facility] MCH 31.5 26.7 - 34.0 pg 11/19/2022 6:39 AM [facility] MCHC 32.2 30.8 - 35.9 g/dL 11/19/2022 6:39 AM [facility] RDW-SD 71.5(H) 36.0 - 50.0 fL 11/19/2022 6:39 AM [facility] RDW-CV 20.1(H) 11.2 - 14.8 % 11/19/2022 6:39 AM [facility] Platelet Count 120(L) 150 - 400 10 3/uL 11/19/2022 6:39 AM [facility] MPV 9.8 9.4 - 12.9 fL 11/19/2022 6:39 AM [facility] nRBC Absolute 0.00 0 10 3/uL 11/19/2022 6:39 AM [facility] nRBC Auto 0.0 0 /100 WBC 11/19/2022 6:39 AM [facility] Blood BLOOD SPECIMEN / Unknown Lab Venipuncture / Unknown 11/19/2022 5:39 AM CDT 11/19/2022 6:15 AM CDT Rajani Linares MD LAB - HEMATOLOGY ORD ERABLES [facility] [address] [place] [address], [facility] [phone] * (ABNORMAL) RENAL FUNCTION PANEL (11/19/2022 5:39 AM CDT) Only the most recent of13 resultswithin the time period is included. BUN 22 7 - 26 mg/dL 11/19/2022 6:47 AM [facility] Creatinine 0.62 0.56 - 0.96 mg/dL 11/19/2022 6:47 AM [facility] Sodium 137 136 - 145 mmol/L 11/19/2022 6:47 AM [facility] Potassium 3.6 3.5 - 4.5 mmol/L 11/19/2022 6:47 AM [facility] Chloride 107 98 - 107 mmol/L 11/19/2022 6:47 AM [facility] CO2 24 22 - 29 mmol/L 11/19/2022 6:47 AM [facility] Glucose 129(H) 70 - 115 mg/dL 11/19/2022 6:47 AM [facility] Albumin 2.9(L) 3.4 - 5.0 g/dL 11/19/2022 6:47 AM [facility] Calcium 8.4 8.4 - 10.2 mg/dL 11/19/2022 6:47 AM [facility] Phosphorus 3.1 2.9 - 5.1 mg/dL 11/19/2022 6:47 AM [facility] Anion Gap 10 8 - 18 11/19/2022 6:47 AM [facility] BUN/Creatinine Ratio 35(H) 7 - 23 11/19/2022 6:47 AM [facility] Osmolality Calculated 289 270 - 300 mOsm/kg 11/19/2022 6:47 AM [facility] eGFR by CKD-EPI >90 >=90 mL/min/1.7 3 m2 11/19/2022 6:47 AM [facility] Blood BLOOD SPECIMEN / Unknown Lab Venipuncture / Unknown 11/19/2022 5:39 AM CDT 11/19/2022 6:16 AM T Rajani Linares MD LAB - CHEMISTRY ORDE [facility] Organization Address City/State/ZIP Co de Phone Number [facility] [address] [place] [address], [facility] [phone] * LACTIC ACID BLOOD (11/18/2022 3:21 PM CDT) Only the most recent of2 resultswithin the time period is included. [facility] Lactic Acid-Stat 1.2 <=2.0 mmol/L 11/18/2022 3:53 PM CDT [facility] Blood BLOOD SPECIMEN / Unknown Venipuncture / Unknown 11/18/2022 3:21 PM CDT 11/18/2022 3:31 PM CDT Ezra Ross MD LAB - CHEMISTRY ORDKurtis LENZ Performing Organization Address [facility]/ZIP Co de Phone Number [facility] [address] [place] [address], [facility] [phone] * CULTURE BLOOD (11/18/2022 2:36 PM CDT) Only the most recent of2 resultswithin the time period is included. [facility] Culture No growth day 5 HAMMAD 11/23/2022 7:00 PM CDT [facility] Blood PERIPHERAL BLOOD / Unknown Venipuncture / Unknown 11/18/2022 2:36 PM CDT 11/18/2022 2:40 PM CDT Adia Alfredo MD LAB - MICROBIOLOGY O RDERABLES Performing Organization Address [facility] Co de Phone Number [facility] [address] [place] [address], [facility] [phone] * (ABNORMAL) CALCIUM IONIZED WHOLE BLOOD (11/18/2022 1:50 PM CDT) [facility] Calcium Ionized 1.20 mmol/L 11/18/2022 2:13 PM CDT [facility] pH 7.33(L) 7.35 - 7.45 pH 11/18/2022 2:13 PM CDT [facility] Ionized Calcium pH Adjusted 1.17(L) 1.19 - 1.34 mmol/L 11/18/2022 2:13 PM CDT [facility] Blood BLOOD SPECIMEN / Unknown Venipuncture / Unknown 11/18/2022 1:50 PM CDT 11/18/2022 2:10 PM CDT Adia Alfredo MD LAB - CHEMISTRY ORDE RABLES [facility] [address] [place] [address], [place] [phone] * (ABNORMAL) RETIC COUNT (11/18/2022 1:50 PM CDT) Pathologist [facility] Reticulocyte % 1.0 0.4 - 2.5 % 11/18/2022 2:18 PM CDT [facility] Reticulocyte Absolute 0.0281 0.0200 - 0.1300 10 6/uL 11/18/2022 2:18 PM CDT [facility] Reticulocyte Immature Fractionated 7.0 0.9 - 14.3 % 11/18/2022 2:18 PM CDT [facility] Hemoglobin Retic 37.7(H) 27.8 - 36.8 pg 11/18/2022 2:18 PM CDT [facility] Blood BLOOD SPECIMEN / Unknown Venipuncture / Unknown 11/18/2022 1:50 PM CDT 11/18/2022 2:12 PM CDT Adia Alfredo MD LAB - HEMATOLOGY SONDRA LAI Performing Organization Address [facility]/ZIP Co de Phone Number [address] [address], [place] [phone] * HAPTOGLOBIN (11/18/2022 1:50 PM CDT) Pathologist [facility] Haptoglobin 69 14 - 258 mg/dL 11/18/2022 3:10 PM CDT [facility] Blood BLOOD SPECIMEN / Unknown Venipuncture / Unknown 11/18/2022 1:50 PM CDT 11/18/2022 2:11 PM CDT Adia Alfredo MD LAB - CHEMISTRY ORDKurtis LENZ [address] [address], [place] [phone] * (ABNORMAL) RBC MORPHOLOGY (11/12/2022 12:49 PM CDT) Pathologist [facility] Platelet Estimate Adequate Adequate 023 2:09 PM CDT [facility] Anisocytosis 1+(A) None 11/12/2022 2:09 PM CDT [facility] Macrocytosis Few(A) None 11/12/2022 2:09 PM CDT [facility] Polychromasia Occasional( A) None 11/12/2022 2:09 PM CDT [facility] Schistocytes Occasional( A) None 11/12/2022 2:09 PM CDT [facility] Ovalocytes Occasional( A) None 11/12/2022 2:09 PM CDT [facility] Tear Drop Cells Occasional( A) None 11/12/2022 2:09 PM CDT [facility] Dohle Bodies Occasional( A) None 11/12/2022 2:09 PM CDT [facility] Large Platelet Count Occasional( A) None 11/12/2022 2:09 PM CDT [facility] Blood BLOOD SPECIMEN / Unknown Venipuncture / Unknown 11/12/2022 12:49 PM CDT 11/12/2022 1:04 PM CDT Shreyas Phillips MD LAB - HEMATOLOGY ORD ERABLES [facility] [address] [place] [phone], [facility] [phone] * (ABNORMAL) SLIDE SCAN HEMATOLOGY (11/11/2022 2:34 AM CDT) Only the most recent of2 resultswithin the time period is included. Pathologist [facility] Platelet Estimation Adequate platelets Normal, Adequate platelets 11/11/2022 4:57 AM CDT [facility] Anisocytosis 1+(A) None 11/11/2022 4:57 AM CDT [facility] Macrocytosis 1+(A) None 11/11/2022 4:57 AM CDT [facility] Poikilocytosis 1+(A) None 11/11/2022 4:57 AM CDT [facility] Blood BLOOD SPECIMEN / Unknown Lab Venipuncture / Unknown 11/11/2022 2:34 AM CDT 11/11/2022 3:37 AM CDT Santosh Hoffman MD LAB - HEMATOLOGY OR DERABLES Performing Organization Address City/[facility]/ZIP Co de Phone Number [facility] [address] [place], [place] [phone] * (ABNORMAL) BASIC METABOLIC PANEL (CALCIUM TOTAL) (11/11/2022 12:25 AM CDT) Only the most recent of5 resultswithin the time period is included. [facility] Glucose 134(H) 70 - 105 mg/dL 11/11/2022 4:19 AM CDT [facility] Sodium 139 136 - 145 mmol/L 11/11/2022 4:19 AM CDT [facility] Potassium 4.5 3.5 - 5.1 mmol/L 11/11/2022 4:19 AM CDT [facility] Chloride 107 98 - 107 mmol/L 11/11/2022 4:19 AM CDT [facility] CO2 25 22 - 29 mmol/L 11/11/2022 4:19 AM CDT [facility] Calcium 9.6 8.4 - 10.4 mg/dL 11/11/2022 4:19 AM CDT [facility] Anion Gap 7 6 - 16 mmol/L 11/11/2022 4:19 AM CDT [facility] BUN 19 7 - 26 mg/dL 11/11/2022 4:19 AM CDT [facility] Creatinine 0.85 0.57 - 1.11 mg/dL 11/11/2022 4:19 AM CDT [facility] eGFR by CKD-EPI 76(L) >=90 mL/min/1.7 3 m2 11/11/2022 4:19 AM CDT [facility] Blood BLOOD SPECIMEN / Unknown Venipuncture / Unknown 11/11/2022 12:25 AM CDT 11/11/2022 3:37 AM CDT Peter Combs MD LAB - CHEMISTRY SILVINO LENZ Performing Organization Address City/[facility]/ZIP Co de Phone Number [facility] [address] [place], [place] [phone] * ECHO COMPLETE W BUBBLE STUDY (10/26/2022 8:09 AM CDT) BSA [id number] m2 SSM CV FUJI PACS LV biplane EF 75 54 - 74 % SSM CV FUJI PACS LV A2C EF 70 52 - 76 % SSM CV FUJ I PACS LV A4C EF 78 46 - 78 % SSM CV FUJ I PACS LVOT stroke vol 67.89 cm3 SSM CV FUJI PACS LV stroke vol 2D teich 56.779 ml SSM CV FUJI PACS LV stroke vol index A4C MOD 51.78 ml SSM CV FUJI PACS LVIDd 4.11 3.8 - 5.2 cm SSM CV FUJI PACS LVIDs 2.30 2.2 - 3.5 cm SSM CV FUJI PACS IVSd 2D 1.1 0.6 - 0.9 cm SSM CV FUJI PACS LVPWd 1.06 cm SSM CV FUJ I PACS Fractional Shortening 2D 44 28 - 44 % SSM CV FUJI PACS LV ESV BP 16.228 14 - 42 mL SSM CV FUJI PACS LV ESV index BP 9.9 8 - 24 mL/m2 SSM CV FUJI PACS LV ESV A2C 15.001 10 - 54 mL SSM CV FUJI PACS LV EDV BP 63.827 mL SSM CV FUJ I PACS LV ESV A4C 17.66 12 - 60 mL SSM CV FUJI PACS LV EDV index BP 39.1 29 - 61 mL/m2 SSM CV FUJI PACS LV EDV A2C 58.8 41 - 133 mL SSM CV FUJI PACS LV EDV A4C 66.781 mL SSM CV FU JI PACS LV ESV 2D 18.053 14 - 42 mL SSM CV FUJI PACS LV EDV 2D 74.832 46 - 106 mL SSM CV FUJI PACS LVOT diam 1.9 cm SSM CV FUJ I PACS LVOT area 2.83 cm2 SSM CV FUJ I PACS LV RWT 0.516 SSM CV FUJ I PACS LV Kemp A2C 7.685 cm SSM CV F UJI PACS LV Kemp A4C 8.065 cm SSM CV F UJI PACS IVS/LVPW 1.036 SSM CV FUJ I PACS MV E pk jacques 78.825 cm/s SSM CV F UJI PACS MV avg E/e' ratio 8.45 SS M CV FUJI PACS MV A pk jacques 98.167 cm/s SSM CV F UJI PACS MV E A ratio 0.80 SSM CV FUJI PACS MV E' lateral jacques 10.799 cm/s SS M CV FUJI PACS MV DT 182 ms SSM CV FUJ I PACS MV E' septal jacques 8.209 cm/s SSM CV FUJI PACS MV A duration 91 ms SSM CV FUJI PACS MV E/e' septal 9.602 SSM C V FUJI PACS MV E/e' lateral 7.299 SSM CV FUJI PACS P vein A jacques 25.6 cm/s SSM CV FUJI PACS P vein A duration 171 ms SS M CV FUJI PACS LVOT pk jacques 1.20 m/s SSM CV F UJI PACS LVOT mn jacques 0.80 m/s SSM CV F UJI PACS LVOT mn grad 2.9 mmHg SSM CV FUJI PACS LVOT Cardiac Output 5.42 l/min SSM CV FUJI PACS GLS -22.7 % SSM CV FUJ I PACS AA pk sys strain -29.9 % SSM CV FUJI PACS AAS pk sys strain -36.1 % SS M CV FUJI PACS AI pk sys strain -27.3 % SSM CV FUJI PACS AL pk sys strain -19.1 % SSM CV FUJI PACS AP pk sys strain -33.1 % SSM CV FUJI PACS pk sys strain -25.6 % SSM CV FUJI PACS BA pk sys strain -18.8 % SSM CV FUJI PACS BAS pk sys strain -18.1 % SS M CV FUJI PACS BI pk sys strain -16.0 % SSM CV FUJI PACS BL pk sys strain -16.7 % SSM CV FUJI PACS BS pk sys strain -20.1 % SSM CV FUJI PACS GPLS A2C -22.2 % SSM CV FUJ I PACS GPLS A4C -19.5 % SSM CV FUJ I PACS GPLS APLAX -26.2 % SSM CV FU JI PACS MA pk sys strain -22.9 % SSM CV FUJI PACS MAS pk sys strain -25.1 % SS M CV FUJI PACS WA pk sys strain -18.8 % SSM CV FUJI PACS ML pk sys strain -15.0 % SSM CV FUJI PACS MP pk sys strain -23.3 % SSM CV FUJI PACS MS pk sys strain -23.8 % SSM CV FUJI PACS LA ESV A2C MOD Index 31 ml/m2 SSM CV FUJI PACS LA ESV A4C MOD Index 24 ml/m2 SSM CV FUJI PACS LA size 2.874 2.7 - 3.8 cm SSM CV FUJI PACS LA vol BP A-L 50.516 mL SSM CV FUJI PACS RV-kemp basal diam 3.3 2.5 - 4.1 cm SSM CV FUJI PACS RV-kemp longitudinal diam 6.2 5.9 - 8.3 cm SSM CV FUJI PACS RVIDd 3.4 cm SSM CV FUJ I PACS RVOT VTI 18.668 cm SSM CV FUJ I PACS TV S' jacques 14.312 SSM CV FUJ I PACS TAPSE 2.041 1.7 cm SSM CV FUJ I PACS RVOT pk jacques 1.01 m/s SSM CV F UJI PACS RA area 12.022 cm2 SSM CV FUJ I PACS AV mn grad 7 mmHg SSM CV FU JI PACS AV pk grad 13 mmHg SSM CV FU JI PACS AV mn jacques 1.24 m/s SSM CV FUJ I PACS AV pk jacques 1.77 m/s SSM CV FUJ I PACS AV VTI 35.792 cm SSM CV FUJ I PACS LVOT pk grad 5.757 mmHg SSM CV FUJI PACS LVOT VTI 23.958 cm SSM CV FUJ I PACS AV area planimetry 1.90 cm2 SSM CV FUJI PACS AV area index 1.2 cm2/m2 SSM CV FUJI PACS AV area cont VTI 2.0 cm2 SSM CV FUJI PACS AV area pk jacques 2.0 cm2 SSM C V FUJI PACS AV Doppler jacques index pk jacques 0.68 SSM CV FUJI PACS AV closure time 0.4 s SSM CV FUJI PACS Dimensionless Index 0.669 SSM CV FUJI PACS AV PHT 973 ms SSM CV FUJ I PACS AV pk jacques regurg 307.118 cm/s SSM CV FUJI PACS MV mn grad 2 mmHg SSM CV FU JI PACS MV pk grad 4 mmHg SSM CV FU JI PACS MV mn jacques 0.70 m/s SSM CV FUJ I PACS MV pk jacques 102.465 cm/s SSM CV FUJ I PACS MV PHT 66 ms SSM CV FUJ I PACS MV area PHT 3.33 cm2 SSM CV F UJI PACS MV area cont eq 2.10 cm2 SSM CV FUJI PACS MV VTI 32.352 cm SSM CV FUJ I PACS MV decel slope 432.623 cm/s2 SSM C V FUJI PACS TV area PHT 3.80 cm2 SSM CV F UJI PACS TV PHT 50 ms SSM CV FUJ I PACS TV DT 0.171 ms SSM CV FUJ I PACS RVOT mn grad 2 mmHg SSM CV FUJI PACS RVOT pk grad 4 mmHg SSM CV FUJI PACS PV mn grad 3 mmHg SSM CV FU JI PACS PV pk jacques 122.009 cm/s SSM CV FUJ I PACS PV pk grad 6 mmHg SSM CV FU JI PACS PV VTI 20.036 cm SSM CV FUJ I PACS PV mn jacques 79.165 cm/s SSM CV FUJ I PACS Ascending aorta 3.42 cm SSM CV FUJI PACS IVC size 1.4 cm SSM CV FUJ I PACS Max Age Predicted HR 156 [facility] CV FUJI PACS Target HR 133 SSM CV FUJ I PACS [id number] 6.088 cm SSM CV FUJ I PACS [id number] 6.153 cm SSM CV FUJ I PACS AV decel slope regurg 91.572 cm/s2 [facility] CV FUJI PACS LV stroke vol BP 47.599 mL SSM CV FUJI PACS LVIDs index 1.41 1.3 - 2.1 cm/m2 [facility] CV FUJI PACS LV LVIDd index 2.52 2.3 - 3.1 cm/m2 [facility] CV FUJI PACS Sinus of Valsalva 3.30 cm SS M CV FUJI PACS ST junction 2.6 cm SSM CV F UJI PACS LV Stroke Index 2D Teich 34.79 mL/m2 SSM CV FUJI PACS LV ESV index A2C 9.19 6 - 30 mL/m2 [facility] CV FUJI PACS LV ESV index A4C 10.82 7 - 35 mL/m2 [facility] CV FUJI PACS LV EDV index A2C 36.03 26 - 74 mL/m2 [facility] CV FUJI PACS LV EDV index A4C 40.92 30 - 82 mL/m2 [facility] CV FUJI PACS LV ESV index 2D 11.06 8 - 24 mL/m2 [facility] CV FUJI PACS LV EDV index 2D 45.85 29 - 61 mL/m2 [facility] CV FUJI PACS LVOT Cardiac Index 3.32 l/min/m2 S[facility] CV FUJI PACS Sinus of valsalva index 2.02 cm/m2 [facility] CV FUJI PACS ST junction index 1.59 cm/m2 SS M CV FUJI PACS Anatomical Region Laterality Modality Ultrasound Addenda Addendum by Ena Saldivar MD on 12/29/2022 10:57 AM CDT Left Ventricle: Left ventricle size is normal. Normal wall thickness. Ventricular mass is normal. Normal systolic function. EF by 2D Yan biplane is 75%. Global longitudinal strain is normal with a value of -22.7 %. Normal wall motion. Normal diastolic function. Right Ventricle: Right ventricle size is normal. Normal systolic function. No significant valvular abnormalities. Left Atrium: Agitated saline injection showed an itracardiac right to left shunt consistent with PFO. Left Ventricle Left ventricle size is normal. Normal wall thickness. Ventricular mass is normal. Normal systolic function. EF by 2D Yan biplane is 75%. Global longitudinal strain is normal with a value of -22.7 %. Normal wall motion. Normal diastolic function. Right Ventricle Right ventricle size is normal. Normal systolic function. Left Atrium Left atrium size is normal. Agitated saline injection showed an itracardiac right to left shunt consistent with PFO. Right Atrium Right atrium size is normal. IVC/SVC IVC diameter is less than or equal to 21 mm and decreases greater than 50% during inspiration; therefore the estimated right atrial pressure is normal (~3 mmHg). Mitral Valve Valve structure is normal. No restricted motion. Mild regurgitation. No stenosis. Tricuspid Valve Valve structure is normal. No restricted motion. Trace regurgitation. Unable to estimate the pulmonary artery systolic pressure due to lack of envelope. No stenosis. Aortic Valve Valve structure is trileaflet. No restricted motion. Mild regurgitation. No stenosis. AV mean gradient is 7 mmHg. AV peak velocity is 1.77 m/s. AV area by continuity VTI is 2.0 cm2. Pulmonic Valve Valve structure is normal. No regurgitation. No stenosis. Ascending Aorta Normal sized sinus of Valsalva (aortic root) and ascending aorta. Sinus of Valsalva is 3.30 cm. Ascending Aorta is 3.42 cm. Pericardium No pericardial effusion. Study Details Study quality was good. A complete 2D, color Doppler, spectral Doppler, strain and M-mode echocardiogram was performed. The apical, parasternal, subcostal and suprasternal views were obtained. Saline ultrasound enhancing agent used. Patient exhibited sinus rhythm. Narrative Procedure Note Ena Saldivar MD - 12/29/2022 Left Ventricle: Left ventricle size is normal. Normal wall thickness.Ventricular mass is normal. Normal systolic function. EF by 2D Simpsonbiplane is 75%. Global longitudinal strain is normal with a value of -22.7%. Normal wall motion. Normal diastolic function. Right Ventricle: Right ventricle size is normal. Normal systolicfunction. No significant valvular abnormalities. Aquilino Melvin MD ECHO CUPID * CT ANGIO BRAIN AND NECK (10/25/2022 10:17 PM CDT) Anatomical Region Laterality Modality Head Computed Tomogra phy 10/25/2022 10:1 9 PM CDT Impressions 10/26/2022 12:25 AM CDT IMPRESSION: 1.No acute intracranial hemorrhage or large vascular territory infarct. Punctate eikyx-tb-juqvmzxz infarct within the left superior cerebellum seen on brain MRI 10/24/2022 is not conspicuous on this exam. 2.No occlusion, hemodynamically significant stenosis, or aneurysm of the major intracranial arteries. 3.No occlusion, hemodynamically significant stenosis, or dissection of the major neck arteries. I, Chang Linn MD, PhD have personally reviewed and interpreted this examination/study. > Interpreting Provider: Chang Linn MD, PhD on 10/26/2022 12:25 AM Narrative 10/26/2022 12:25 AM CDT EXAM: CT ANGIO BRAIN AND NECK, DATE/TIME OF EXAM: 10/25/2022 10:17 PM, LOCATION: [facility] HISTORY: G93.9: Lesion of cerebellum ADDITIONAL CLINICAL INFORMATION: Ordering Provider Reason For Exam: Cerebellar stroke. EXAMINATION: 1.CT scan of the head without intravenous contrast. 2.CT angiogram images of the head and neck acquired with intravenous contrast. Multiplanar reformations acquired. TECHNIQUE: CT of the head was performed without intravenous contrast according to standard protocol. Then, CT angiography of the head and neck was obtained after administration of intravenous contrast. Three dimensional postprocessing was performed by the technologist and sent to the workstation for review. NASCET criteria was utilized for evaluation of carotid stenosis. CT dose reduction technique was used, including Automated Exposure Control. CONTRAST: 75 mL of Isovue-370 COMPARISON: Brain MRI 10/24/2022. FINDINGS: CT HEAD: BRAIN PARENCHYMA: No acute hemorrhage, large vascular territory infarct, or mass effect. Punctate rlskp-ry-qfapblxp infarct within the left superior cerebellum seen on brain MRI 10/24/2022 is not conspicuous on this exam. Scattered white matter hypodensities, which are nonspecific but likely represents the sequela of chronic microangiopathic change. Mild generalized parenchymal volume loss, which is commensurate for age. VENTRICLES/EXTRA-AXIAL SPACES: No ventriculomegaly or extra-axial collection. Basal cisterns are patent. EXTRACRANIAL STRUCTURES: Normal bones and soft tissues. Paranasal sinuses and nasal cavity are clear. Trace right mastoid tip effusion. Left mastoid air cells are clear. Bilateral lens replacement; otherwise, orbits are unremarkable. 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 CTA HEAD: No occlusion, hemodynamically significant stenosis, or aneurysm. Mild calcific atherosclerosis of the cavernous and clinoid segments of the internal carotid arteries (ICAs) without occlusion or hemodynamically significant stenosis. Incidentally noted hypoplastic A1 segment of the right anterior cerebral artery, -type right posterior cerebral artery with a hypoplastic right P1 segment, dominant right vertebral artery V4 segment, and a hypoplastic left vertebral artery V4 segment that terminates in the left posterior inferior cerebellar artery (PICA), which are known variants. CTA NECK: GREAT VESSELS: Visualized segments are patent. Minimal calcific atherosclerosis of the aortic arch. Nondominant left vertebral artery arising directly from the aortic arch, which is a known variant. RIGHT CCA/ICA: No occlusion. ICA at the carotid bifurcation with less than 50% stenosis by NASCET criteria secondary to calcific atherosclerosis. No evidence of dissection. LEFT CCA/ICA: No occlusion. ICA at the carotid bifurcation with less than 50% stenosis by NASCET criteria secondary to calcific atherosclerosis. No evidence of dissection. VERTEBRAL ARTERIES: No occlusion or hemodynamically significant stenosis. No evidence of dissection. Dominant right vertebral artery. Nondominant left vertebral artery arising directly from the aortic arch. OTHER: Minimal scarring of the lung apices. Partially imaged right chest port catheter with the distal portion incompletely assessed on this examination. Right thyroid lobe nodule measuring 1.4 cm (16/45). No suspicious lymph nodes. No acute or suspicious osseous abnormality. Mild degenerative disc disease of the lower cervical spine most notable at the C6-C7 level. Procedure Note Chang Linn MD - 10/26/2022 EXAM: CT ANGIO BRAIN AND NECK, DATE/TIME OF EXAM: 10/25/2022 10:17 PM, LOCATION: [facility] HISTORY: G93.9: Lesion of cerebellum ADDITIONAL CLINICAL INFORMATION: Ordering Provider Reason For Exam: Cerebellar stroke. EXAMINATION: 1.CT scan of the head without intravenous contrast. 2.CT angiogram images of the head and neck acquired with intravenous contrast. Multiplanar reformations acquired. TECHNIQUE: CT of the head was performed without intravenous contrast according to standard protocol. Then, CT angiography of the head andneck was obtained after administration of intravenous contrast. Three dimensional postprocessing was performed by the technologist and sent to the workstation for review. NASCET criteria was utilized for evaluationof carotid stenosis. CT dose reduction technique was used, includingAutomated Exposure Control. CONTRAST: 75 mL of Isovue-370 COMPARISON: Brain MRI 10/24/2022. FINDINGS: CT HEAD: BRAIN PARENCHYMA: No acute hemorrhage, large vascular territory infarct,or mass effect. Punctate ahzii-pi-qcudysow infarct within the left superior cerebellum seen on brain MRI 10/24/2022 is not conspicuous on this exam. Scattered white matter hypodensities, which are nonspecific but likely represents the sequela of chronic microangiopathic change. Mildgeneralized parenchymal volume loss, which is commensurate for age. VENTRICLES/EXTRA-AXIAL SPACES: No ventriculomegaly or extra-axial collection. Basal cisterns are patent. EXTRACRANIAL STRUCTURES: Normal bones and soft tissues. Paranasalsinuses and nasal cavity are clear. Trace right mastoid tip effusion. Leftmastoid air cells are clear. Bilateral lens replacement; otherwise, orbits are unremarkable. 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 CTA HEAD: No occlusion, hemodynamically significant stenosis, or aneurysm. Mild calcific atherosclerosis of the cavernous and clinoid segments ofthe internal carotid arteries (ICAs) without occlusion or hemodynamically significant stenosis. Incidentally noted hypoplastic A1 segment of the right anterior cerebral artery, -type right posterior cerebral artery with a hypoplasticright P1 segment, dominant right vertebral artery V4 segment, and ahypoplastic left vertebral artery V4 segment that terminates in the left posterior inferior cerebellar artery (PICA), which are known variants. CTA NECK: GREAT VESSELS: Visualized segments are patent. Minimal calcific atherosclerosis of the aortic arch. Nondominant left vertebral artery arising directly from the aortic arch, which is a known variant. RIGHT CCA/ICA: No occlusion. ICA at the carotid bifurcation with lessthan 50% stenosis by NASCET criteria secondary to calcific atherosclerosis.No evidence of dissection. LEFT CCA/ICA: No occlusion. ICA at the carotid bifurcation with lessthan 50% stenosis by NASCET criteria secondary to calcific atherosclerosis.No evidence of dissection. VERTEBRAL ARTERIES: No occlusion or hemodynamically significantstenosis. No evidence of dissection. Dominant right vertebral artery. Nondominant left vertebral artery arising directly from the aortic arch. OTHER: Minimal scarring of the lung apices. Partially imaged right chest port catheter with the distal portion incompletely assessed on this examination. Right thyroid lobe nodule measuring 1.4 cm (16/45). No suspicious lymph nodes. No acute or suspicious osseous abnormality. Mild degenerative disc disease of the lower cervical spine most notable atthe C6-C7 level. IMPRESSION: 1.No acute intracranial hemorrhage or large vascular territory infarct. Punctate egdag-kt-nfwlkbeb infarct within the left superior cerebellumseen on brain MRI 10/24/2022 is not conspicuous on this exam. 2.No occlusion, hemodynamically significant stenosis, or aneurysm of the major intracranial arteries. 3.No occlusion, hemodynamically significant stenosis, or dissection ofthe major neck arteries. I, Chang Linn MD, PhD have personally reviewed and interpreted this examination/study. > Interpreting Provider: Chang Linn MD, PhD on 10/26/2022 12:25 AM Aquilino Melvin MD CT ORDERABLES * MRI BRAIN WWO CONTRAST (10/24/2022 3:40 PM CDT) Anatomical Region Laterality Modality Head Magnetic Resonan ce 10/25/2022 10:3 9 AM CDT Impressions 10/25/2022 11:05 AM CDT IMPRESSION: Small punctate focus of increased DWI signal in the left posterior cerebellar hemisphere with associated T2 hyperintensity most likely secondary to evolving acute to subacute infarct. Otherwise no acute intracranial abnormality. No areas of abnormal contrast enhancement Findings communicated to the general neurology team and primary team at 11:00 AM on 10/25/2022 > Interpreting Provider: Juansi Velez MD on 10/25/2022 11:05 AM Narrative 10/25/2022 11:05 AM CDT PROCEDURE: MRI BRAIN WWO CONTRAST DATE/TIME OF EXAM: 10/24/2022 3:41 PM CLINICAL INFORMATION: None relevant/not provided if blank. Indication: R29.898: Weakness of both legs R33.9: Urinary retention Additional History: COMPARISON: PET/CT 10/11/2022 TECHNIQUE: MRI of the brain was performed without and with contrast, according to tumor protocol CONTRAST: GADOBUTROL 1 MMOL/ML IV SSM SO:6 mL FINDINGS: No evidence of acute or chronic hemorrhage is identified. Small focus of increased DWI signal along the left posterior cerebellar hemisphere (image 9, series 3) with corresponding mild T2 hyperintensity could be secondary to evolving acute to subacute infarct . Otherwise no evidence of acute cerebral infarction is seen. There is mild cerebral volume loss with associated ex vacuo ventricular dilatation. No mass effect or midline shift is seen. Mild burden of periventricular and scattered subcortical white matter FLAIR hyperintensities, nonspecific most likely sequela of chronic ischemic small vessel disease. No enhancing lesions are identified. The corpus callosum and sella appear normal. The posterior fossa, brainstem, and craniocervical junction appear normal. Other than bilateral cataract extractions, the visualized portions of the orbits, paranasal sinuses, and mastoids appear normal. Normal flow voids are demonstrated in the carotid arteries and basilar artery. The calvarium is normal. No significant degenerative changes involving the visualized portions of the cervical spine. Procedure Note Juanis Velez MD - 10/25/2022 PROCEDURE: MRI BRAIN WWO CONTRAST DATE/TIME OF EXAM: 10/24/2022 3:41 PM CLINICAL INFORMATION: None relevant/not provided if blank. Indication: R29.898: Weakness of both legs R33.9: Urinary retention Additional History: COMPARISON: PET/CT 10/11/2022 TECHNIQUE: MRI of the brain was performed without and with contrast, according to tumor protocol CONTRAST: GADOBUTROL 1 MMOL/ML IV SSM SO:6 mL FINDINGS: No evidence of acute or chronic hemorrhage is identified. Small focus of increased DWI signal along the left posterior cerebellar hemisphere(image 9, series 3) with corresponding mild T2 hyperintensity could besecondary to evolving acute to subacute infarct . Otherwise no evidence of acute cerebral infarction is seen. There is mild cerebral volume loss with associated ex vacuo ventricular dilatation. No mass effect or midlineshift is seen. Mild burden of periventricular and scattered subcortical white matter FLAIR hyperintensities, nonspecific most likely sequela ofchronic ischemic small vessel disease. No enhancing lesions are identified. The corpus callosum and sella appear normal. The posterior fossa, brainstem, and craniocervical junction appear normal. Other than bilateral cataract extractions, the visualized portions ofthe orbits, paranasal sinuses, and mastoids appear normal. Normal flow voids are demonstrated in the carotid arteries and basilar artery. Thecalvarium is normal. No significant degenerative changes involving the visualized portions of the cervical spine. IMPRESSION: Small punctate focus of increased DWI signal in the left posterior cerebellar hemisphere with associated T2 hyperintensity most likely secondary to evolving acute to subacute infarct. Otherwise no acute intracranial abnormality. No areas of abnormal contrast enhancement Findings communicated to the general neurology team and primary team at 11:00 AM on 10/25/2022 > Interpreting Provider: Juanis Velez MD on 10/25/2022 11:05 AM Parish Aguirre II, MD MR ORDERABLES * METHYLMALONIC ACID BLOOD (10/24/2022 6:11 AM CDT) Methylmalonic Acid 0.19 0.00 - 0.40 umol/L 10/28/2022 2:06 PM CDT [facility] ([facility]) Comment: INTERPRETIVE INFORMATION: MMA Serum/Plasma, Vitamin B12 Status This test was developed and its performance characteristics determined by [employer]. It has not been cleared or approved by the [place] Food and Drug Administration. This test was performed in a CLIA certified laboratory and is intended for clinical purposes. Performed By: [facility] [employer] [address] [place] [address] Visiting Housekeeper: Blayne Ojeda MD, PhD CLIA Number: [id number] Blood BLOOD SPECIMEN / Unknown Venipuncture / Unknown 10/24/2022 6:11 AM CDT 10/24/2022 6:20 AM CDT James Park III, MD LAB - CHEMISTRY O RDERABLES [facility]) [address] * ZINC BLOOD (10/24/2022 6:11 AM CDT) Zinc 77.9 60.0 - 120.0 ug/dL 10/26/2022 10:59 PM CDT [facility] ([facility]) Comment: INTERPRETIVE INFORMATION: Zinc, Serum or Plasma Elevated results may be due to skin or collection-related contamination, including the use of a noncertified metal-free collection/transport tube. If contamination concerns exist due to elevated levels of serum/plasma zinc, confirmation with a second specimen collected in a certified metal-free tube is recommended. Circulating zinc concentrations are dependent on albumin status and are depressed with malnutrition. Zinc may also be lowered with infection, inflammation, stress, oral contraceptives, and . Zinc may be elevated with zinc supplementation or fasting. Elevated zinc concentrations may interfere with copper absorption. This test was developed and its performance characteristics determined by [employer]. It has not been cleared or approved by the [place] Food and Drug Administration. This test was performed in a CLIA certified laboratory and is intended for clinical purposes. Performed By: [employer] [address] [place] [address] Visiting Housekeeper: Blayne Ojeda MD, PhD CLIA Number: [id number] Blood BLOOD SPECIMEN / Unknown Venipuncture / Unknown 10/24/2022 6:11 AM CDT 10/24/2022 6:20 AM CDT James Park III, MD LAB - CHEMISTRY O RDJOELLE Performing Organization Address [facility] de Phone Number [facility]) [address] [place] [address] * VITAMIN E (10/24/2022 6:11 AM CDT) [facility] Vitamin E Alpha Tocopherol 10.8 5.5 - 18.0 mg/L 10/27/2022 12:15 PM CDT [facility]) Comment: This test was developed and its performance characteristics determined by [employer]. It has not been cleared or approved by the US Food and Drug Administration. This test was performed in a CLIA certified laboratory and is intended for clinical purposes. Vitamin E Gamma Tocopherol 0.6 0.0 - 6.0 mg/L 10/27/2022 12:15 PM CDT [facility]) Comment: Performed By: [employer] [address] [place] [address] Visiting Housekeeper: Blayne Ojeda MD, PhD CLIA Number: [id number] Blood BLOOD SPECIMEN / Unknown Venipuncture / Unknown 10/24/2022 6:11 AM CDT 10/24/2022 6:20 AM CDT James Park III, MD LAB - CHEMISTRY O JANICE Performing Organization Address [facility] de Phone Number [facility]) [address] [place] [address] * (ABNORMAL) VITAMIN B1 (10/24/2022 6:11 AM CDT) [facility] Vitamin B1 Whole Blood 58(L) 70 - 180 nmol/L 10/27/2022 10:58 AM CDT [facility] [employer] [facility]) Comment: INTERPRETIVE INFORMATION: Vitamin B1, Whole Blood This assay measures the concentration of thiamine diphosphate (TDP), the primary active form of vitamin B1. Approximately 90 percent of vitamin B1 present in whole blood is TDP. Thiamine and thiamine monophosphate, which comprise the remaining 10 percent, are not measured. This test was developed and its performance characteristics determined by [employer]. It has not been cleared or approved by the [place] Food and Drug Administration. This test was performed in a CLIA certified laboratory and is intended for clinical purposes. Performed By: [employer] [address] [place] [address] Visiting Housekeeper: Blayne Ojeda MD, PhD CLIA Number: [id number] Blood BLOOD SPECIMEN / Unknown Venipuncture / Unknown 10/24/2022 6:11 AM CDT 10/24/2022 6:20 AM CDT James Park III, MD LAB - CHEMISTRY O RDERABLES [facility] [employer] [facility]) [address] [place] [address] * (ABNORMAL) VITAMIN B6 (10/24/2022 6:11 AM CDT) [facility] Vitamin B6 19.1(L) 20.0 - 125.0 nmol/L 10/28/2022 7:10 AM CDT [facility] [employer] ([facility]) Comment: INTERPRETIVE INFORMATION: Vitamin B6 (Pyridoxal 5-Phosphate) Pyridoxal 5'-phosphate measured in a specimen collected following an 8-hour or overnight fast accurately indicates vitamin B6 nutritional status. Non-fasting specimen concentration reflects recent vitamin intake. This test was developed and its performance characteristics determined by [employer]. It has not been cleared or approved by the [place] Food and Drug Administration. This test was performed in a CLIA certified laboratory and is intended for clinical purposes. Performed By: [employer] [address] [place] [address] Visiting Housekeeper: Blayne Ojeda MD, PhD CLIA Number: [id number] Blood BLOOD SPECIMEN / Unknown Venipuncture / Unknown 10/24/2022 6:11 AM CDT 10/24/2022 6:21 AM CDT James Park III, MD LAB - CHEMISTRY O RDERAARNIE Performing Organization Address [facility] de Phone Number [facility] [employer] [facility]) [address] [place] [address] * COPPER BLOOD (10/24/2022 6:11 AM CDT) Copper 150.2 80.0 - 155.0 ug/dL 10/26/2022 10:59 PM CDT [facility] ([facility]) Comment: INTERPRETIVE INFORMATION: Copper, Serum or Plasma Elevated results may be due to skin or collection-related contamination, including the use of a noncertified metal-free collection/transport tube. If contamination concerns exist due to elevated levels of serum/plasma copper, confirmation with a second specimen collected in a certified metal-free tube is recommended. Serum copper may be elevated with infection, inflammation, stress, and copper supplementation. In females, elevated copper may also be caused by oral contraceptives and (concentrations may be elevated up to 3 times normal during the third trimester). This test was developed and its performance characteristics determined by [employer]. It has not been cleared or approved by the [place] Food and Drug Administration. This test was performed in a CLIA certified laboratory and is intended for clinical purposes. Performed By: [employer] [address] [place] [address] Visiting Housekeeper: Blayne Ojeda MD, PhD CLIA Number: [id number] Blood BLOOD SPECIMEN / Unknown Venipuncture / Unknown 10/24/2022 6:11 AM CDT 10/24/2022 6:20 AM CDT James Park III, MD LAB - CHEMISTRY O JANICE Performing Organization Address [facility] Co de Phone Number [facility]) [address] [place] [address] * HOMOCYSTEINE BLOOD QUANTITATIVE (10/24/2022 6:11 AM CDT) Homocysteine 6.9 4.4 - 16.2 umol/L 10/24/2022 7:08 AM CDT [facility] Blood BLOOD SPECIMEN / Unknown Venipuncture / Unknown 10/24/2022 6:11 AM CDT 10/24/2022 6:21 AM CDT James Park III, MD LAB - CHEMISTRY O JANICE [address] [address] [address], [place] [phone] * FOLATE (10/24/2022 6:11 AM CDT) Pathologist [facility] Folate 11.0 7.0 - 31.4 ng/mL 10/24/2022 7:33 AM CDT [facility] Blood BLOOD SPECIMEN / Unknown Venipuncture / Unknown 10/24/2022 6:11 AM CDT 10/24/2022 6:28 AM CDT James Park III, MD LAB - CHEMISTRY O JANICE Performing Organization Address [facility]/ZIP Co de Phone Number [address] [address], [place] [phone] * (ABNORMAL) VITAMIN B12 (10/24/2022 6:11 AM CDT) [facility] Vitamin B12 1,054(H) 213 - 816 pg/mL 10/24/2022 7:33 AM CDT [facility] Blood BLOOD SPECIMEN / Unknown Venipuncture / Unknown 10/24/2022 6:11 AM CDT 10/24/2022 6:28 AM CDT James Park III, MD LAB - CHEMISTRY O JANICE [address] [address], [place] [phone] * (ABNORMAL) VITAMIN D 25-HYDROXY (10/24/2022 12:50 AM CDT) Vitamin D, 25 Hydroxy 29.0(L) 30.0 - 80.0 ng/mL 10/24/2022 6:52 AM CDT [facility] Comment: The recommendations for 25-Hydroxy Vitamin D clinical decision points are as follows: Deficient: <20.0 ng/mL Insufficient: 20.0 - 29.9 ng/mL Sufficient: 30.0 - 100.0 ng/mL Potential Toxicity: >100 ng/mL Reference: The Endocrine Society Clinical Practice Guidelines. 2011 If the 25-Hydroxy Vitamin D results are inconsitent with clinical evidence, it is recommended that follow-up testing using a method such as LC/MS/MS be performed to confirm the result. Blood BLOOD SPECIMEN / Unknown Venipuncture / Unknown 10/24/2022 12:50 AM CDT 10/24/2022 1:06 AM CDT James Park III, MD LAB - CHEMISTRY O RDERABLES Performing Organization Address [facility]/ZIP Co de Phone Number [address] [address], [facility] [phone] * TRANSFUSE RED BLOOD CELL LEUKOREDUCED UNIT(S) (10/23/2022 12:04 PM CDT) Parish Aguirre II, MD NURSING - BLOOD PROD TRANSFUSION * PREPARE (CROSSMATCH) RBC UNIT(S), 1 Units (10/23/2022 9:53 AM CDT) Only the most recent of4 resultswithin the time period is included. Unit Description AS1 LR PRBC IRR [facility] Unit ABO A [facility] Unit Rh POS [facility] Product Number R04 [facility] LO[facility] Unit Donor # [id number] [facility] Unit Status transfused [facility] B[facility] OD [facility] Product Code [id number] [facility] Blood Type Barcode 6200 [facility] Expiration Date [id number] S BLOOD BANK LAB Blood Bank BLOOD SPECIMEN / Unknown 10/23/2022 8:28 AM CDT Parish Aguirre II, MD LAB - BLOOD BANK ORDERABLES Performing Organization Address [facility]/ZIP Co de Phone Number [facility] [address] [place] [address] [phone] * MRI LUMBAR SPINE WWO CONTRAST (10/23/2022 6:48 AM CDT) Anatomical Region Laterality Modality Spine Magnetic Resonan ce 10/25/2022 11:0 7 AM CDT Impressions 10/25/2022 11:25 AM CDT IMPRESSION: No significant degenerative changes noted. No high-grade central canal or neural foraminal stenosis. Nonspecific areas of enhancement involving the right iliac bone and left transverse process could be sequelae of known lymphoma, however no corresponding hypermetabolic activity noted on PET/CT. Other differentials include nonspecific benign lesions or degenerative changes. > Interpreting Provider: Juanis Velez MD on 10/25/2022 11:25 AM Narrative 10/25/2022 11:25 AM CDT PROCEDURE: MRI LUMBAR SPINE WWO CONTRAST, DATE/TIME OF EXAM: 10/23/2022 6:48 AM, LOCATION [facility] INDICATION: R32: Urinary incontinence, unspecified type C85.10: B-cell lymphoma, unspecified B-cell lymphoma type, unspecified body region (CMS/[facility]) R29.898: Weakness of both legs ADDITIONAL CLINICAL INFORMATION: Ordering Provider Reason For Exam: r/o spin/cord lesion/compression Technologist Note: Additional: COMPARISON: PET/CT 10/11/2022 TECHNIQUE: Lumbar spine MRI was performed without and with IV contrast, according to standard protocol. CONTRAST: GADOBUTROL 1 MMOL/ML IV SSM SO:6 mL FINDINGS: Minimal dextrocurvature of the lumbar spine. Alignment is otherwise normal. Small hemangioma noted at L2 vertebral body. There is a small enhancing lesion at the superior endplate of T12 vertebral body with associated STIR hyperintensity could be secondary to Schmorl's node. Vertebral bodies are normal in height without evidence of compression fractures. The conus medullaris terminates at the level of L1 and the distal spinal cord signal intensity is normal. No abnormal enhancement involving the thecal sac or epidural lesion No significant disc height loss. Mild disc degenerative changes with disc bulges at the levels of L1-L2 and L2-L3.. No central canal stenosis is seen. Multilevel mild facet arthropathy most prominent at the level of L4-L5. No neural foraminal stenosis is seen. Multiple renal cysts noted. No enlarged lymph nodes noted Small areas of enhancement involving the right iliac bone without definite corresponding abnormality on the PET CT. (Image 42, series 13 and image 37, series 13) and also involving the left L5 transverse process. No definite corresponding lytic or lucent lesions on CT. Procedure Note Juanis Velez MD - 10/25/2022 PROCEDURE: MRI LUMBAR SPINE WWO CONTRAST, DATE/TIME OF EXAM: 10/23/2022 6:48 AM, LOCATION [facility] INDICATION: R32: Urinary incontinence, unspecified type C85.10: B-cell lymphoma, unspecified B-cell lymphoma type, unspecifiedbody region (CMS/HCC) R29.898: Weakness of both legs ADDITIONAL CLINICAL INFORMATION: Ordering Provider Reason For Exam: r/o spin/cord lesion/compression Technologist Note: Additional: COMPARISON: PET/CT 10/11/2022 TECHNIQUE: Lumbar spine MRI was performed without and with IV contrast, accordingto standard protocol. CONTRAST: GADOBUTROL 1 MMOL/ML IV SSM SO:6 mL FINDINGS: Minimal dextrocurvature of the lumbar spine. Alignment is otherwisenormal. Small hemangioma noted at L2 vertebral body. There is a small enhancing lesion at the superior endplate of T12 vertebral body with associatedSTIR hyperintensity could be secondary to Schmorl's node. Vertebral bodiesare normal in height without evidence of compression fractures. The conus medullaris terminates at the level of L1 and the distal spinal cordsignal intensity is normal. No abnormal enhancement involving the thecal sac or epidural lesion No significant disc height loss. Mild disc degenerative changes withdisc bulges at the levels of L1-L2 and L2-L3.. No central canal stenosis is seen. Multilevel mild facet arthropathy most prominent at the level of L4-L5. No neural foraminal stenosis is seen. Multiple renal cysts noted.No enlarged lymph nodes noted Small areas of enhancement involving the right iliac bone withoutdefinite corresponding abnormality on the PET CT. (Image 42, series 13 and image37, series 13) and also involving the left L5 transverse process. Nodefinite corresponding lytic or lucent lesions on CT. IMPRESSION: No significant degenerative changes noted. No high-grade central canalor neural foraminal stenosis. Nonspecific areas of enhancement involving the right iliac bone and left transverse process could be sequelae of known lymphoma, however no corresponding hypermetabolic activity noted on PET/CT. Otherdifferentials include nonspecific benign lesions or degenerative changes. > Interpreting Provider: Juanis Velez MD on 10/25/2022 11:25 AM Phoebe Hernandez MD MR ORDERABLES * XR ABDOMEN KUB PORTABLE (10/17/2022 6:55 PM CDT) Only the most recent of2 resultswithin the time period is included. Anatomical Region Laterality Modality Abdomen Radiographic Tamie ging 10/18/2022 7:25 AM CDT Impressions 10/18/2022 10:50 PM CDT IMPRESSION: Non-obstructive bowel gas pattern. Large stool burden. Report dictated by Flores Farias MD (residential case manager). I, Nakul Bridges MD have personally reviewed and interpreted this examination/study. > Interpreting Provider: Nakul Bridges MD on 10/18/2022 10:50 PM Narrative 10/18/2022 10:50 PM CDT PROCEDURE: XR ABDOMEN KUB PORTABLE, DATE/TIME OF EXAM: 10/17/2022 6:55 PM, LOCATION [facility] INDICATION: K59.00: Constipation, unspecified constipation type ADDITIONAL CLINICAL INFORMATION: Ordering Provider Reason For Exam: concern for severe constipation/obstruction COMPARISON: Abdominal x-ray 10/16/2022 FINDINGS: There is no dilatation of small or large bowel. There is a large stool burden. The visible osseous structures are intact. The lung bases are clear. Multiple calcified granulomas are present within the spleen. Procedure Note Nakul Bridges MD - 10/18/2022 PROCEDURE: XR ABDOMEN KUB PORTABLE, DATE/TIME OF EXAM: 10/17/2022 6:55PM, LOCATION [facility] INDICATION: K59.00: Constipation, unspecified constipation type ADDITIONAL CLINICAL INFORMATION: Ordering Provider Reason For Exam: concern for severe constipation/obstruction COMPARISON: Abdominal x-ray 10/16/2022 FINDINGS: There is no dilatation of small or large bowel. There is a large stool burden. The visible osseous structures are intact. The lung bases are clear. Multiple calcified granulomas are present within the spleen. IMPRESSION: Non-obstructive bowel gas pattern. Large stool burden. Report dictated by Flores Farias MD (residential case manager). I, Nakul Bridges MD have personally reviewed and interpreted this examination/study. > Interpreting Provider: Nakul Bridges MD on 10/18/2022 10:50 PM Michele Nieves MD DIAGNOSTIC IMAGING O RDERABLES * CYTOMEGALOVIRUS ANTIBODY IGG BLOOD (10/14/2022 10:49 AM CDT) Only the most recent of4 resultswithin the time period is included. Cytomegalovirus Antibody IgG <0.20 <=0.70 U/mL 10/15/2022 10:28 PM CDT [facility] ([facility]) Comment: INTERPRETIVE INFORMATION: Cytomegalovirus Antibody, IgG 0.59 U/mL or less......... Not Detected 0.6 - 0.69 U/mL........... Indeterminate-Repeat testing in 10-14 days may be helpful. 0.70 U/mL or greater...... Detected In immunocompromised patients, CMV serology (IgG or IgM antibody titers) may not be reliable and may be misleading in the diagnosis of acute or reactivation CMV disease. The preferred method for diagnosis is culture of virus and/or demonstration of viral antigen in peripheral white cells (buffy coat), bronchoalveolar lavage (BAL) cells, or tissue biopsies. This test should not be used for blood donor screening, associated re-entry protocols, or for screening Human Cell, Tissues and Cellular and Tissue-Based Products (HCT/P). The best evidence for current infection is a significant change on two appropriately timed specimens, where both tests are done in the same laboratory at the same time. Performed By: [employer] [address] [place] [address] Visiting Housekeeper: Blayne Ojeda MD, PhD Blood BLOOD SPECIMEN / Unknown Venipuncture / Unknown 10/14/2022 10:49 AM CDT 10/14/2022 11:02 AM CDT Shreyas Phillips MD LAB - CHEMISTRY SILVINO LENZ [facility] ([facility]) [address] [place], [place] [address] * TRANSFUSE RED BLOOD CELL LEUKOREDUCED UNIT(S) (10/01/2022 3:41 PM CDT) Shreyas Phillips MD NURSING - BLOOD PROD TRANSFUSION * XR HAND RIGHT 3VW OR MORE (10/01/2022 12:10 PM CDT) Anatomical Region Laterality Modality Wrist / Hand Radiographic Tamie ging 10/01/2022 1:38 PM CDT Impressions 10/01/2022 3:40 PM CDT IMPRESSION: 1.No acute fracture or dislocation identified. 2.The bones are diffusely demineralized. Report dictated by Kay Gardiner MD (residential case manager). IEkta MD have personally reviewed and interpreted this examination/study. > Interpreting Provider: Ekta Lara MD on 10/01/2022 3:40 PM Narrative 10/01/2022 3:40 PM CDT PROCEDURE: XR HAND RIGHT 3VW OR MORE, DATE/TIME OF EXAM: 10/01/2022 12:56 PM, LOCATION [facility] INDICATION: M79.641: Right hand pain ADDITIONAL CLINICAL INFORMATION: Ordering Provider Reason For Exam: possible fracture COMPARISON: None. FINDINGS: The osseous structures are intact and well aligned without acute fracture or dislocation. The joint spaces are preserved. The bones are diffusely demineralized. No soft tissue swelling is present. Procedure Note Leela Lara MD - 10/01/2022 PROCEDURE: XR HAND RIGHT 3VW OR MORE, DATE/TIME OF EXAM: 2:56 PM, LOCATION [facility] INDICATION: M79.641: Right hand pain ADDITIONAL CLINICAL INFORMATION: Ordering Provider Reason For Exam: possible fracture COMPARISON: None. FINDINGS: The osseous structures are intact and well aligned without acutefracture or dislocation. The joint spaces are preserved. The bones are diffusely demineralized. No soft tissue swelling is present. IMPRESSION: 1.No acute fracture or dislocation identified. 2.The bones are diffusely demineralized. Report dictated by Kay Gardiner MD (residential case manager). IEkta MD have personally reviewed and interpreted this examination/study. > Interpreting Provider: Ekta Lara MD on 10/01/2022 3:40 PM Shreyas Phillips MD DIAGNOSTIC IMAGING O RDERABLES * TRANSFUSE RED BLOOD CELL LEUKOREDUCED UNIT(S) (09/13/2022 2:28 PM CDT) Shreyas Phillips MD NURSING - BLOOD PROD TRANSFUSION * (ABNORMAL) URINE MICROSCOPIC ONLY REFLEX TO CULTURE (09/10/2022 11:19 AM CDT) Reflex Status Culture to follow 09/10/2022 11:44 AM CDT [facility] WBC UA 21-50(A) None Seen, 0-5 /HPF 09/10/2022 11:44 AM CDT [facility] Bacteria UA Trace(A) None /HPF 09/10/2022 11:44 AM CDT [facility] Squamous Epithelial Cells UA >20(A) None Seen, 0-2, 3-5 /HPF 09/10/2022 11:44 AM CDT [facility] Mucus UA 2+ /LPF 09/10/2022 11:44 AM CDT [facility] Hyaline Casts UA 0-2 None Seen, 0-2 /LPF 09/10/2022 11:44 AM CDT [facility] Urine URINE SPECIMEN OBTAINED BY CLEAN CATCH PROCEDURE / Unknown Collection / Unknown 09/10/2022 11:19 AM CDT 09/10/2022 11:23 AM CDT Narrative [facility] - 09/10/2022 11:44 AM CDT Shreyas Phillips MD LAB - URINALYSIS ORD ERABLES [facility] [address] [place] [address], [facility] [phone] * CULTURE URINE (09/10/2022 11:19 AM CDT) Only the most recent of2 resultswithin the time period is included. Culture Urine 50,000-100,000 CFU/mL urogenital galdino 09/12/2022 2:15 AM CDT [facility] Urine URINE SPECIMEN OBTAINED BY CLEAN CATCH PROCEDURE / Unknown Collection / Unknown 09/10/2022 11:19 AM CDT 09/10/2022 11:44 AM CDT Shreyas Phillips MD LAB - MICROBIOLOGY O RDERABLES Performing Organization Address City/[facility]/ZIP Co de Phone Number [facility] [address] [place] [address], [facility] [phone] * PTT [facility] (09/03/2022 3:37 AM CDT) APTT 30.5 23.0 - 38.4 Seconds 09/03/2022 4:11 AM CDT [facility] Comment:Suggested therapeuti c range for full dose I.V. unfractionated heparin therapy for venous thromboembolism is 71 to 109 seconds. Blood BLOOD SPECIMEN / Unknown Venipuncture / Unknown 09/03/2022 3:37 AM CDT 09/03/2022 3:46 AM CDT Shreyas Phillips MD LAB - COAGULATION OR DERABLES Performing Organization Address City/[facility]/ZIP Co de Phone Number [address] [address], [place] [phone] * FIBRINOGEN ACTIVITY (09/03/2022 3:37 AM CDT) Fibrinogen Clauss 360 200 - 400 mg/dL 09/03/2022 4:10 AM CDT [facility] Blood BLOOD SPECIMEN / Unknown Venipuncture / Unknown 09/03/2022 3:37 AM CDT 09/03/2022 3:46 AM CDT Shreyas Phillips MD LAB - COAGULATION OR DERABLES Performing Organization Address City/[facility]/ZIP Co de Phone Number [address] [address], [place] [phone] * TRANSFUSE RED BLOOD CELL LEUKOREDUCED UNIT(S) (08/24/2022 3:18 PM CDT) Shreyas Phillips MD NURSING - BLOOD PROD TRANSFUSION * HIV-1 HIV-2 ANTIBODY + HIV P24 AG PANEL (07/16/2022 12:15 PM CDT) Pathologist [facility] HIV Antigen/Antibod y 1 & 2 Non-reacti ve Non-react marcellus 07/16/2022 1:14 PM CDT [facility] Comment:No Laboratory eviden ce of HIV infection. Blood BLOOD SPECIMEN / Unknown Lab Venipuncture / Unknown 07/16/2022 12:15 PM CDT 07/16/2022 12:25 PM CDT Shreyas Phillips MD LAB - CHEMISTRY SILVINO LENZ [place] Organization Address City/State/ZIP Co de Phone Number [facility] [address] [place] [address], [facility] [phone] * HEPATITIS C RNA QUANTITATIVE (07/16/2022 12:15 PM CDT) [facility] Hepatitis C RNA PCR, Interp Not detected Not detected 07/19/2022 1:08 PM CDT [facility] Blood BLOOD SPECIMEN / Unknown Lab Venipuncture / Unknown 07/16/2022 12:15 PM CDT 07/16/2022 12:25 PM CDT Narrative [facility] - 07/19/2022 1:08 PM CDT The Hepatitis C viral (HCV) RNA analysis utilized a serum sample, real-time reverse cable splicer assistant PCR, and is reported as Not Detected, Detected (<12 IU/mL), Quantity (IU/mL) or >30,000,000 IU/mL. The limit of quantitation of the assay is 12 IU/mL (100% of samples with this HCV RNA level were detected). The linear range is from 12 IU/mL to 30,000,000 IU/mL. Values less than 12 IU/mL are reported as Detected (<12 IU/mL). Values greater than 30,000,000 IU/mL are reported as >30,000,000 IU/mL. The detection/quantitation of HCV RNA in serum is based on the isolation of HCV RNA with reverse cable splicer assistant of genomic HCV RNA followed by real-time PCR in the presence of an unrelated RNA internal control. The internal control ensures that RNA is isolated, and that no general significant inhibitors of the RT-PCR process are present. The analysis was performed using a U.S. FDA approved test methodology. Shreyas Phillips MD LAB - CHEMISTRY SILVINO LENZ Performing Organization Address City/[facility]/ZIP Co de Phone Number [facility] [address] [place] [address], [facility] [phone] * (ABNORMAL) ERYTHROCYTE SEDIMENTATION RATE (07/16/2022 12:15 PM CDT) Pathologist [facility] Erythrocyte Sedimentation Rate Westergren 50(H) 0 - 30 MM/HR 07/16/2022 1:22 PM CDT [facility] Blood BLOOD SPECIMEN / Unknown Lab Venipuncture / Unknown 07/16/2022 12:15 PM CDT 07/16/2022 12:29 PM CDT Shreyas Phillips MD LAB - HEMATOLOGY ORD ERAARNIE Performing Organization Address [facility] Co de Phone Number [address] [address], [place] [phone] * HEPATITIS B CORE ANTIBODY TOTAL (07/16/2022 12:15 PM CDT) Pathologist [facility] HBc Antibody Total Non-reacti ve Non-reacti ve 07/16/2022 1:14 PM CDT [facility] Blood BLOOD SPECIMEN / Unknown Lab Venipuncture / Unknown 07/16/2022 12:15 PM CDT 07/16/2022 12:25 PM CDT Shreyas Phillips MD LAB - CHEMISTRY SILVINO LENZ Performing Organization Address [facility]/ZIP Co de Phone Number [address] [address], [place] [phone] * HEPATITIS B SURFACE ANTIGEN W RFLX CONFIRMATION (07/16/2022 12:15 PM CDT) Pathologist [facility] Hepatitis B Virus Surface Antigen Non-reacti ve Non-reacti ve 07/16/2022 1:14 PM CDT [facility] Blood BLOOD SPECIMEN / Unknown Lab Venipuncture / Unknown 07/16/2022 12:15 PM CDT 07/16/2022 12:25 PM CDT Shreyas Phillips MD LAB - CHEMISTRY SILVINO LENZ [address] [address], [place] [phone] * IGM BLOOD (07/16/2022 12:15 PM CDT) IgM 166 37 - 286 mg/dL 07/16/2022 12:56 PM CDT [facility] Blood BLOOD SPECIMEN / Unknown Lab Venipuncture / Unknown 07/16/2022 12:15 PM CDT 07/16/2022 12:25 PM CDT Shreyas Phillips MD LAB - CHEMISTRY SILVINO LENZ Performing Organization Address City/[facility]/ZIP Co de Phone Number [address] [address], [place] [phone] * IGG BLOOD (07/16/2022 12:15 PM CDT) IgG 790 767 - 1,590 mg/dL 07/16/2022 12:56 PM CDT [facility] Blood BLOOD SPECIMEN / Unknown Lab Venipuncture / Unknown 07/16/2022 12:15 PM CDT 07/16/2022 12:25 PM CDT Shreyas Phillips MD LAB - CHEMISTRY SILVINO LENZ [address] [address], [place] [phone] * IGA BLOOD (07/16/2022 12:15 PM CDT) IgA 84 61 - 356 mg/dL 07/16/2022 12:56 PM CDT [facility] Blood BLOOD SPECIMEN / Unknown Lab Venipuncture / Unknown 07/16/2022 12:15 PM CDT 07/16/2022 12:25 PM CDT Shreyas Phillips MD LAB - CHEMISTRY SILVINO LENZ [facility] [address] [place] [address], [facility] [phone] * IR BOWEN CATH INSERT (07/15/2022 9:45 AM CDT) Anatomical Region Laterality Modality Chest X-Ray Angiograph y 07/15/2022 1:36 PM CDT Impressions 07/15/2022 3:31 PM CDT Impression: Successful placement of a single lumen 8 [place] x 20 cm chest power port via the right internal jugular vein under ultrasound and fluoroscopic guidance, as described above. Note: Keep the dressing clean and dry for 5 days. Recommend port access after 5 days to minimize infection and allow better healing. Francisca Lanier PA, was present and performed/supervised the entire procedure > Dictated by Aguila Pritchett (Rubber Goods Assembler) 07/15/2022 1:38 PM ITin DO have personally reviewed and interpreted this examination/study. > Interpreting Provider: Tin Sterling DO on 07/15/2022 3:31 PM Narrative 07/15/2022 3:31 PM CDT PROCEDURE: IR OBWEN CATH History: This is a 62-year-old female with new diagnosis of lymphoma who presents for chest port placement for the administration of chemotherapy Operators: BIJAL Cartagena Anesthesia: 1.Local anesthesia - 20 mL of 1% lidocaine 2.Intravenous Anxiolysis- Versed 2 mg and Fentanyl 100 mcg Procedure: 1.Ultrasound-guided access of the right internal jugular vein. 2.Creation of subcutaneous pocket and subcutaneous tunnel on the right chest. 3.Fluoroscopy-guided placement of single lumen 8 [place]an x 20 cm chest power port via the right internal jugular vein. Fluoroscopic time: 0.1 minutes Procedure details: The procedure, risks, and possible complications were explained to the patient in detail and informed consent was obtained. The patient was placed supine on the angiography table. . The right neck and upper chest were prepped and draped in the usual sterile manner. A rail flaw detector operator film of chest was obtained, which was unremarkable. Limited ultrasound of the right lower neck demonstrated a patent and compressible internal jugular vein. A cantrell scale image was documented. After instillation of lidocaine , a small incision was made in the right lower neck. Under real time ultrasound guidance, using a micropuncture needle, the right internal jugular vein was accessed. The needle entry was documented. Following a series of exchanges, a 0.035 wire was advanced through the right atrium into the inferior vena cava. Following administration of lidocaine , a skin incision was made over the right upper chest and a subcutaneous pocket was created using blunt and sharp dissection techniques. The port was connected to the catheter and placed in the pocket. Using a tunneling device, the catheter was tunneled from the pocket to the venotomy site in the right neck, after administering lidocaine with epinephrine along the tunnel. The catheter was cut to the appropriate length. A peel-away sheath and dilator combination was advanced over the guidewire into the right atrium under fluoroscopic guidance. The guidewire and dilator were removed, and the catheter was advanced through the peel-away sheath into the right atrium. The peel-away was then removed. The port was accessed, aspirated, and flushed easily. An appropriate amount of heparin (500 units/mL) was placed in the port as per protocol. The pocket was closed using 3.0 and 4.0 vicryl sutures. The neck incision was closed with dermabond. A sterile dressing was applied. Final imaging revealed the port in the right chest with tip of the catheter in the right atrium in good position with no kink along the course of the catheter. The patient tolerated the procedure well and was transferred to the holding area in stable condition. There were no immediate complications associated with the procedure. Procedure Note Tin Sterling MD - 07/15/2022 PROCEDURE: IR BOWEN CATH History: This is a 62-year-old female with new diagnosis of lymphoma who presents for chest port placement for the administration of chemotherapy Operators: BIJAL Cartagena Anesthesia: 1.Local anesthesia - 20 mL of 1% lidocaine 2.Intravenous Anxiolysis- Versed 2 mg and Fentanyl 100 mcg Procedure: 1.Ultrasound-guided access of the right internal jugular vein. 2.Creation of subcutaneous pocket and subcutaneous tunnel on the right chest. 3.Fluoroscopy-guided placement of single lumen 8 [place] x 20 cm chestpower port via the right internal jugular vein. Fluoroscopic time: 0.1 minutes Procedure details: The procedure, risks, and possible complications were explained to the patient in detail and informed consent was obtained. The patient wasplaced supine on the angiography table. . The right neck and upper chest were prepped and draped in the usual sterile manner. A rail flaw detector operator film of chestwas obtained, which was unremarkable. Limited ultrasound of the right lower neck demonstrated a patent and compressible internal jugular vein. A cantrell scale image was documented. After instillation of lidocaine , a small incision was made in the right lower neck. Under real time ultrasound guidance, using a micropuncture needle, the right internal jugular vein was accessed. The needle entrywas documented. Following a series of exchanges, a 0.035 wire was advanced through the right atrium into the inferior vena cava. Following administration of lidocaine , a skin incision was made overthe right upper chest and a subcutaneous pocket was created using blunt and sharp dissection techniques. The port was connected to the catheter and placed in the pocket. Using a tunneling device, the catheter wastunneled from the pocket to the venotomy site in the right neck, afteradministering lidocaine with epinephrine along the tunnel. The catheter was cut to the appropriate length. A peel-away sheath and dilator combination was advanced over theguidewire into the right atrium under fluoroscopic guidance. The guidewire and dilator were removed, and the catheter was advanced through thepeel-away sheath into the right atrium. The peel-away was then removed. The port was accessed, aspirated, and flushed easily. An appropriateamount of heparin (500 units/mL) was placed in the port as per protocol. The pocket was closed using 3.0 and 4.0 vicryl sutures. The neck incisionwas closed with dermabond. A sterile dressing was applied. Final imaging revealed the port in the right chest with tip of the catheter in theright atrium in good position with no kink along the course of the catheter. The patient tolerated the procedure well and [facility] There were no immediate complicationsassociated with the procedure. Impression: Successful placement of a single lumen 8 [place] x 20 cmchest power port via the right internal jugular vein under ultrasound and fluoroscopic guidance, as described above. Note: Keep the dressing clean and dry for 5 days. Recommend port access after 5 days to minimize infection and allow better healing. Francisca Lanier PA, was present and performed/supervised the entire procedure > Dictated by Aguila Pritchett (Rubber Goods Assembler) 07/15/2022 1:38 PM ITin DO have personally reviewed and interpreted this examination/study. > Interpreting Provider: Tin Sterling DO on 07/15/2022 3:31 PM Shreyas Phillips MD IR ORDERABLES * PATHOLOGY TISSUE (06/08/2022 11:19 AM CDT) Case Report Surgical Pathology Report Case: [id number] Authorizing Provider: Chris Julian MD Collected: 06/08/2022 11:19 AM Ordering Location: [facility] Pathology Lab Received: 06/10/2022 11:21 AM Pathologist: Reshma Singh MD Specimen: Lymph Node Biopsy, CT Biopsy Left Lymph Node 06/11/2022 10:47 AM CDT [facility] Final Diagnosis Lymph node, left paracolic, needle core biopsy: - Limited specimen with involvement by a LW81-xlmaaflf mature B-cell lymphoma - See description and comment 06/11/2022 10:47 AM CDT [facility] Microscopic Description and Comment Sections show thin needle cores of lymphoid tissue involved by a proliferation of variably-sized, irregular lymphocytes. The cells have mature, condensed chromatin and scant cytoplasm. Scattered larger cells are present. Apoptotic bodies are focally noted. No necrosis is present. Immunohistochemistry is attempted, despite limited tissue present in the block in order to define the immunophenotype of the cells along with their architecture. The cells express CD20, CD10, BCL-6, BCL-2, and c-MYC. They lack significant expression of CD30 and MUM-1. CD3 highlights admixed small T-cells. CD21 shows virtually no follicular dendritic cell meshworks; however, the tissue present on this slide is very limited. The proliferation index by Ki-67 is estimated at 50%. [facility] ([facility], [address], [place] [address]) is reported to show an atypical UU84-zysyidjb population that lacks surface immunoglobulin light chain expression. In summary, the left paracolic lymph node specimen is involved by a VP68-rezvjfyh mature B-cell lymphoma. Given the limited nature of the specimen, the differential diagnosis includes diffuse large B-cell lymphoma, a high grade B-cell lymphoma, and follicular lymphoma. FISH testing for abnormalities of MYC, BCL-2, and BCL-6 is recommended as a next step if sufficient specimen remains at [facility]. There is insufficient residual tissue present in the block to perform this testing from the formalin-fixed paraffin embedded tissue. If the FISH studies do not classify this process as a high-grade B-cell lymphoma (double or triple hit), the differential diagnosis of diffuse large B-cell lymphoma vs. follicular lymphoma will remain and will most likely require additional sampling via excisional biopsy if clinically feasible to better evaluate architecture and cytomorphology. Clinical correlation is advised. 06/11/2022 10:47 AM [facility] Clinical History Retroperitoneal lymphadenopathy. 06/11/2022 10:47 AM [facility] Materials Received Received for initial diagnosis are two slides and one block (A1) labeled [id number] along with a copy of the outside pathology report. The materials originate from [facility]. All original materials are returned to the referring institution, along with a copy of our final report. 06/11/2022 10:47 AM [facility] Disclaimer The performance characteristics of all immunohistochemical and indirect immunofluorescence stains (if any) cited in this report were determined by the Histopathology Laboratory of [facility]. Some of these tests were developed by our own laboratory and have not been cleared or approved by the US Food and Drug Administration. The FDA does not require this test to go through premarket FDA review. These tests are used for clinical purposes. They should not be regarded as investigational or for research. This laboratory is certified under the Clinical Laboratory Improvement Amendments (CLIA) as qualified to perform high complexity clinical laboratory testing. This case has been personally reviewed and interpreted by the attending (teaching) pathologist. 06/11/2022 10:47 AM [facility] Embedded Images 06/11/2022 10:47 AM CDT [facility] Pathology/Cytolo gy BIOPSY OF LYMPH NODE / Unknown 06/08/2022 11:19 AM CDT 06/10/2022 11:21 AM CDT Chris Julian MD LAB - PATHOLOGY/CYTO LOGY ORDERABLES [facility] [address] [place], [place] [address] [phone] Care Teams Funeral Limousine Driver Relationship Specialty Start Date End Date Agustin Flor MD [address] [place] [address] PCP - General General Medicine 06/28/22 Shreyas Phillips MD [address] [place] [address] Physician Hematology and Oncology 03/23/23 Bebe Hernandez, PA-C [address] [place] [address] Physician Corporate Tax Preparer Physician Corporate Tax Preparer 03/23/23 Nanda Rausch, RN Registered Nurse 03/23/23
--- OUTSIDE RECORDS SUMMARY | 2024-05-14 17:32 | XMS_ITS | Encounter Summary ---
Author Organization [facility] Address [address] [place] [address] Care Team Providers Care Upholstery Estimator Name Role Phone Agustin Flor MD Primary Care Provider [phone] Mabel Del Real RN Unavailable Unavailable Shreyas Phillips MD Unavailable Bebe Hernandez PA-C Unavailable Nanda Rausch RN Unavailable Unavailable Encounter Details Date Type Department Care Team (Late Contact Info) Description 06/10/2022 Lab Requisition [facility] Care Pathology Lab [address] [place] [address] Chris Julian MD [address] [phone] Illness, unspecified Social History Tobacco Use Types Packs/Day Years Used Date Smoking Tobacco: Never Assessed Sex and Gender Information Value Date Recorded Sex Assigned at Not on file Gender Identity Female 08/19/2023 1:35 PM CDT Sexual Orientation Not on file documented as of this encounter Plan of Treatment Upcoming Encounters Date Type Department Care Team (Late Contact Info) Description 05/28/2024 11:00 AM 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 Appointment [facility] [address] [place] [phone] Shreyas Phillips MD [address] [place] [address] 06/15/2024 11:40 AM CDT Appointment [facility] [address] [place] [address] Shreyas Phillips MD [address] [place] [address] documented as of this encounter Procedures Procedure Name Priority Date/Time Associated Diagnosis Comments PATHOLOGY TISSUE Routine 06/08/2022 11:1 9 AM CDT Illness, unspecified documented in this encounter Results * PATHOLOGY TISSUE (06/08/2022 11:19 AM CDT) Case Report Surgical Pathology Report Case: [id number] Authorizing Provider: Chris Julian MD Collected: 06/08/2022 11:19 AM Ordering Location: [facility] Pathology Lab Received: 06/10/2022 11:21 AM Pathologist: Reshma Singh MD Specimen: Lymph Node Biopsy, CT Biopsy Left Lymph Node 06/11/2022 10:47 AM CDT [facility] Final Diagnosis Lymph node, left paracolic, needle core biopsy: - Limited specimen with involvement by a BP98-bykovkwe mature B-cell lymphoma - See description and comment 06/11/2022 10:47 AM CDT [facility] Microscopic Description and Comment Sections [...] Ki-67 is estimated at 50%. Flow [facility] ([facility], [address] [place], [place] [address]) is reported to show an atypical DM22-strulqvx population that lacks surface immunoglobulin light chain expression. In summary, the left paracolic lymph node specimen is involved by a ZA94-nlhnnuip mature B-cell lymphoma. Given the limited nature [...] Clinical correlation is advised. 06/11/2022 10:47 AM [facility] Clinical History Retroperitoneal lymphadenopathy. 06/11/2022 10:47 AM [facility] Materials Received Received for initial diagnosis are two slides and one block (A1) labeled [id number] along with a copy of the outside pathology report. The materials originate from [facility]. All original materials are returned to the referring institution, along with a copy of our final report. 06/11/2022 10:47 AM [facility] Disclaimer The performance characteristics of all immunohistochemical and indirect immunofluorescence stains (if any) cited in this report were determined by the [facility]opathology Laboratory of [facility]. Some of these tests were developed [...] the attending (teaching) pathologist. 06/11/2022 10:47 AM [facility] Embedded Images 06/11/2022 10:47 AM [facility] Pathology/Cytolo gy BIOPSY OF LYMPH NODE / Unknown 06/08/2022 11:19 AM CDT 06/10/2022 11:21 AM CDT Chris Julian MD LAB - PATHOLOGY/CYTO LOGY ORDERABLES [facility] [address] [place] [address], [facility] [phone] documented in this encounter Visit Diagnoses Diagnosis Illness, unspecified documented in this encounter Care Teams Upholstery Estimator Relationship Specialty Start Date End Date Agustin Flor MD [address] [place] [address] PCP - General General Medicine 06/28/22 Mabel Del Real, RN Registered Nurse Orthopedic Surgery 02/28/23 03/27/24 [place] [address] [place] [id number] Physician Hematology and Oncology 03/23/23 Bebe Hernandez, PA-C [address] [place] [address] Physician Hospice Massage Therapist Physician Hospice Massage Therapist 03/23/23 Nanda Rausch, RN Registered Nurse 03/23/23 documented as of this encounter
--- OUTSIDE RECORDS SUMMARY | 2024-05-14 17:32 | XMS_ITS ---
Author Organization [facility] Address [address] [facility] [place] [address] Care Team Providers Care Business Support Associate Name Role Phone Agustin Flor MD Primary Care Provider [phone] Shreyas Phillips MD Unavailable Bebe HernandezC Unavailable [phone] Nanda Rausch RN Unavailable Unavailable Active Problems Problem Noted Date Diagnosed Date [...] 05/17/2018 08/13/2022 CAD (coronary artery disease) 03/28/2018 Overview (10/14/2022): s/p stents Current Oncology Plans No current plan information found. Past Plans ONCOLOGY TREATMENT Plan Name Start Date Discontinue Date Treatment Medications Discontinue Reason Plan Provider Cycles IP LYMPHOMA (RITUXIMAB ETOPOSIDE DOXORUBICIN VINCRISTINE CYCLOPHOSPHAMIDE PREDNISONE) (DA-R-EPOCH) 07/23/1904/26/2024 cycloPHOSphamide (Cytoxan) infusion (200 mg/mL vial)riTUXimab-abb s (Truxima) RAPID infusionriTUXimab- abbs (Truxima) STANDARD infusionvinCRIStin q-OJSXtccytfw-plmr oside CIVI Therapy Complete Shreyas Phillips MD 6 of 6 cycles started THERAPY PLAN Plan Name Start Date Discontinue Date Treatment Medications Discontinue Reason Plan Provider Hematology plan 12/17/2022 04/26/2024 No medicatio ns scheduled. Therapy Complete Bebe Hernandez, HERBC ONC treatment plan 12/01/2022 12/03/2022 No medications scheduled. Therapy Complete Vicky Mendiola, CAIO-BIOMEDICAL TECHNICIAN Radiation Treatments * No radiation treatments are documented for this patient in [facility]. Treatments may have been administered in another system. Lifetime Dose Tracking * Chemical Lifetime Dose Automatic Entry Manual Entr y Doxorubicin 243.533 mg/m2 (418.8 mg) 243.533 mg/m2 (4 18.8 mg) 0 mg/m2 (0 mg) Dose Length Product 2,504.5 mGy-cm 2,504.5 mGy-cm 0 mG y-cm Resolved Problems Problem Noted Date Diagnosed Date Resolved Date Altered mental status, unspe cified altered mental status type 11/18/2022 11/21/2022 Hodgkin lymphoma 07/15/2022 07/16/2022 History of CAD (coronary artery disease) 07/13/2022 09/03/2022 Chronic obstructive pulmonary disease 11/09/2019 09/03/2022
--- OUTSIDE RECORDS SUMMARY | 2024-05-14 17:32 | XMS_ITS | Data Portability ---
Author Organization [place] [employer], Main Office Address [address] [place] [address] Assessment Encounter Date Assessment Date Assessment LastModified by Organization Details LastModified Time 09/21/2022 09/21/2022 Will cut her long-acting insulin in half will cut her mealtime insulin in half she will follow-up with me in 2 months Levemir will be 10 units Novolin will be 5 unit Not available 09/21/2022 22:52:16 11/30/2022 11/30/2022 Parking placard blood pressure diabetes hyperlipidemia discussed follow-up 3 month [email or web address] Not available 11/30/2022 22:36:44 02/01/2023 02/01/2023 Podiatry She can see Ortho as well Continue with her medicines for her hyperlipidemia diabetes and hypertension Follow-up with me in a month [email or web address] Not available 02/02/2023 21:20:40 03/07/2023 03/07/2023 Given her previous cardiac history will get her set up with Cardiology for surgical clearance blood pressure appears to be well-controlled at 110/62 blood work will also be ascertained for biochemical management of disease processes of medications follow-up with me in about 3 months [email or web address] Not available 03/28/2023 18:10:16 Plan of Treatment Reminders Order Date Submit Date Provider Last Modified By Organization Details Last Modified Time Details Appointments None recorded. Lab CBC w/ auto diff 2022 023 [facility] (Lab), [address] [place], [address], 17:56:00 CMP, serum or plasma 2022 023 [facility] (Lab), [address] [place], [address], 3 19:22:35 lipid panel, serum 2022 023 [facility] (Lab), [address] [place], [address], 3 19:22:40 glycohemogl obin, total, blood 2022 023 [facility] (Lab), [address] [place], [address], 3 19:20:54 urinalysis, dipstick 2022 023 [email or web address] [id number] [facility], [address] [facility], [address], [place], [address], 3 16:45:58 Referral cardiologis t referral 2022 023 [email or web address] Annie Simpson MD, 0 [facility], [address], [place], [address], 4 19:10:44 Procedures None recorded. Surgeries None recorded. Imaging CT, urogram 2022 023 [facility] ([facility]), [address] [place], [address], 3 05:01:33 Medication Orders None recorded. Patient TargetsNo targets recorded. Patient InstructionsNo instructions recorded. Reason for Referral [employer] Referral for Pr e-surgery evaluation Referring Physician: Agustin Flor, Internal Medicine, Encounter Date: 03/07/2023 Results Created Date Observation Date Name Description Value Unit Range Abnormal Flag Note LastModifiedBy Organization Detail LastModifiedTime 06/23/19 23 06/22/2022 URINA LYSIS COMPL ETE/I RIS W/RFX color YELLOW Not Available [facility] (Lab) [address] [place], [address], 06/22/2022 14:38:50 06/23/19 23 06/22/2022 URINA LYSIS COMPL ETE/I RIS W/RFX appear EX.TUR BID Not Available [facility] (Lab) [address] [place], [address], 06/22/2022 14:38:50 06/23/19 23 06/22/2022 URINA LYSIS COMPL ETE/I RIS W/RFX specific gravity 1.016 1.001- 1.030 Not Available [facility] (Lab) [address] [facility] [place], [address], 06/22/2022 14:38:50 06/23/19 23 06/22/2022 URINA LYSIS COMPL ETE/I RIS W/RFX pH 6.5 pH_un its 5.0-9. 0 Not Available [facility] (Lab) [address] [place], [address], 06/22/2022 14:38:50 06/23/19 23 06/22/2022 URINA LYSIS COMPL ETE/I RIS W/RFX leukocytes NEGATI VE palak/u L negati ve- Not Available [facility] (Lab) [address] [place], [address], 06/22/2022 14:38:50 06/23/19 23 06/22/2022 URINA LYSIS COMPL ETE/I RIS W/RFX nitrite NEGATI VE negati ve- Not Available [facility] (Lab) [address] [place], [address], 06/22/2022 14:38:50 06/23/19 23 06/22/2022 URINA LYSIS COMPL ETE/I RIS W/RFX protein 10 mg/dL negati ve- abnormal Not Available [facility] (Lab) [address] [place], [address], 06/22/2022 14:38:50 06/23/19 23 06/22/2022 URINA LYSIS COMPL ETE/I RIS W/RFX glucose NORMAL mg/dL normal - Not Available [facility] (Lab) [address] [place], [address], 06/22/2022 14:38:50 06/23/19 23 06/22/2022 URINA LYSIS COMPL ETE/I RIS W/RFX ketones NEGATI VE mg/dL negati ve- Not Available [facility] (Lab) [address] [place], [address], 06/22/2022 14:38:50 06/23/19 23 06/22/2022 URINA LYSIS COMPL ETE/I RIS W/RFX urobilinogen NORMAL mg/dL normal - Not Available [facility] (Lab) [address] [place], [address], 06/22/2022 14:38:50 06/23/19 23 06/22/2022 URINA LYSIS COMPL ETE/I RIS W/RFX bilirubin NEGATI VE mg/dL negati ve- Not Available [facility] (Lab) [address] [place], [address], 06/22/2022 14:38:50 06/23/19 23 06/22/2022 URINA LYSIS COMPL ETE/I RIS W/RFX blood NEGATI VE mg/dL negati ve- Not Available [facility] (Lab) [address] [place], [address], 06/22/2022 14:38:50 06/23/19 23 06/22/2022 URINA LYSIS COMPL ETE/I RIS W/RFX white blood cells 0-8 /i??h pfi?? 0-8 Not Available [facility] (Lab) [address] [place], [address], 06/22/2022 14:38:50 06/23/19 23 06/22/2022 URINA LYSIS COMPL ETE/I RIS W/RFX red blood cells 0-4 /i??h pfi?? 0-4 Not Available [facility] (Lab) [address] [place], [address], 06/22/2022 14:38:50 06/23/19 23 06/22/2022 URINA LYSIS COMPL ETE/I RIS W/RFX bacteria NONE Not Available [facility] (Lab) [address] [facility], [address], 06/22/2022 14:38:50 06/23/19 23 06/22/2022 URINA LYSIS COMPL ETE/I RIS W/RFX mucous OCCASI ONAL /i??l pfi?? abnormal Not Available [facility] (Lab) [address] [place], [address], 06/22/2022 14:38:50 06/23/19 23 06/22/2022 URINA LYSIS COMPL ETE/I RIS W/RFX squamous epithelial PACKED FIELD /i??l pfi?? abnormal Not Available [facility] (Lab) [address] [place], [address], 06/22/2022 14:38:50 06/23/19 23 06/22/2022 URINA LYSIS COMPL ETE/I RIS W/RFX hyaline cast FEW /i??l pfi?? none seen- abnormal Not Available [facility] (Lab) [address] [place], [address], 06/22/2022 14:38:50 07/03/19 23 07/02/2022 urina lysis , dipst ick Leukocytes (reference range: negative palak/ l) Negati ve Not Available [facility] [address] [facility], [address], [place], [address], 07/02/2022 09:52:54 07/03/19 23 07/02/2022 urina lysis , dipst ick Nitrite (reference rage: negative mg/dl) negati ve Not Available [address], [address], 07/02/2022 09:52:54 07/03/1907/02/2022 urina lysis , dipst ick Urobilinogen (reference range: 0.2-1 mg/dl) 0.2 Not Available [address], [address], 07/02/2022 09:52:54 07/03/1907/02/2022 urina lysis , dipst ick Protein (reference range: negative mg/dl) Negati ve Not Available [address], [address], 07/02/2022 09:52:54 07/03/1907/02/2022 urina lysis , dipst ick pH (reference range: 5-7) 7.0 Not Available [address], [address], 07/02/2022 09:52:54 07/03/1907/02/2022 urina lysis , dipst ick Blood (reference range: negative Aaron/ l) Negati ve Not Available [address], [address], 07/02/2022 09:52:54 07/03/1907/02/2022 urina lysis , dipst ick Specific Commerce (reference range: 1.005-1.030) 1.015 Not Available [address] [place], [address], 07/02/2022 09:52:54 07/03/1907/02/2022 urina lysis , dipst ick Ketone (reference range: negative mg/dl) Negati ve Not Available [address], [address], 07/02/2022 09:52:54 07/03/19 23 07/02/2022 urina lysis , dipst ick Bilirubin (reference range: negative mg/dl) Negati ve Not Available [address], [address], 07/02/2022 09:52:54 07/03/19 23 07/02/2022 urina lysis , dipst ick Glucose (reference range: negative mg/dl) 500 Not Available [address], [address], 07/02/2022 09:52:54 07/03/19 23 07/02/2022 urina lysis , dipst ick Appearance Clear Not Available [address], [address], 07/02/2022 09:52:54 07/03/1907/02/2022 urina lysis , dipst ick Color Yellow Not Available [address], [address], 07/02/2022 09:52:54 07/20/1907/19/2022 urina lysis , dipst ick Leukocytes (reference range: negative palak/ l) Negati ve Not Available [address] [place], [address], 07/19/2022 11:58:47 07/20/19 23 07/19/2022 urina lysis , dipst ick Nitrite (reference rage: negative mg/dl) negati ve Not Available [address], [address], 07/19/2022 11:58:47 07/20/19 23 07/19/2022 urina lysis , dipst ick Urobilinogen (reference range: 0.2-1 mg/dl) 0.2 Not Available [address], [address], 07/19/2022 11:58:47 07/20/19 23 07/19/2022 urina lysis , dipst ick Protein (reference range: negative mg/dl) Trace Not Available [address], [address], 07/19/2022 11:58:47 07/20/19 23 07/19/2022 urina lysis , dipst ick pH (reference range: 5-7) 6.0 Not Available [address], [address], 07/19/2022 11:58:47 07/20/19 23 07/19/2022 urina lysis , dipst ick Blood (reference range: negative Aaron/ l) Large Not Available [address], [address], 07/19/2022 11:58:47 07/20/19 23 07/19/2022 urina lysis , dipst ick Specific [place] (reference range: 1.005-1.030) 1.000 Not Available [address], [address], 07/19/2022 11:58:47 07/20/19 23 07/19/2022 urina lysis , dipst ick Ketone (reference range: negative mg/dl) Trace Not Available [address], [address], 07/19/2022 11:58:47 07/20/19 23 07/19/2022 urina lysis , dipst ick Bilirubin (reference range: negative mg/dl) Negati ve Not Available [address], [address], 07/19/2022 11:58:47 07/20/19 23 07/19/2022 urina lysis , dipst ick Glucose (reference range: negative mg/dl) Negati ve Not Available [address], [address], 07/19/2022 11:58:47 07/20/19 23 07/19/2022 urina lysis , dipst ick Appearance Clear Not Available [address], [address], 07/19/2022 11:58:47 07/20/19 23 07/19/2022 urina lysis , dipst ick Color Yellow Not Available [address], [address], 07/19/2022 11:58:47 03/07/20 23 03/07/2023 CBC/C OMPLE TE BLD COUNT W/DIF F white blood cells 5.0 x10'3 /uL 4.2-10 .8 Not Available [facility] (Lab) [address] [place], [address], 03/07/2023 17:56:00 03/07/20 23 03/07/2023 CBC/C OMPLE TE BLD COUNT W/DIF F red blood cells 4.22 x10'6 /uL 3.80-5 .20 Not Available [facility] (Lab) [address] [place], [address], 03/07/2023 17:56:00 03/07/20 23 03/07/2023 CBC/C OMPLE TE BLD COUNT W/DIF F hemoglobin 12.6 g/dL 12.0-1 5.6 Not Available [facility] (Lab) [address] [place], [address], 03/07/2023 17:56:00 03/07/20 23 03/07/2023 CBC/C OMPLE TE BLD COUNT W/DIF F hematocrit 40.4 % 35.7-4 5.7 Not Available [facility] (Lab) [address] [place], [address], 03/07/2023 17:56:00 03/07/20 23 03/07/2023 CBC/C OMPLE TE BLD COUNT W/DIF F mean red cell volume 95.7 fL 82.0-9 9.0 Not Available [facility] (Lab) [address] [place], [address], 03/07/2023 17:56:00 03/07/20 23 03/07/2023 CBC/C OMPLE TE BLD COUNT W/DIF F mean red cell hemoglobin 29.9 pg 27.0-3 3.0 Not Available [facility] (Lab) [address] [place], [address], 03/07/2023 17:56:00 03/07/20 23 03/07/2023 CBC/C OMPLE TE BLD COUNT W/DIF F mean RBC HGB concentratio n 31.2 g/dL 31.0-3 6.0 Not Available [facility] (Lab) [address] [place], [address], 03/07/2023 17:56:00 03/07/20 23 03/07/2023 CBC/C OMPLE TE BLD COUNT W/DIF F red cell distribution width 14.4 % 11.8-1 5.5 Not Available [facility] (Lab) [address] [place], [address], 03/07/2023 17:56:00 03/07/20 23 03/07/2023 CBC/C OMPLE TE BLD COUNT W/DIF F platelets 204 x10'3 /uL 150-40 0 Not Available [facility] (Lab) [address] [place], [address], 03/07/2023 17:56:00 03/07/20 23 03/07/2023 CBC/C OMPLE TE BLD COUNT W/DIF F mean platelet volume 9.9 fL 9.0-12 .4 Not Available [facility] (Lab) [address] [place], [address], 03/07/2023 17:56:00 03/07/20 23 03/07/2023 CBC/C OMPLE TE BLD COUNT W/DIF F neutrophils 71.4 % 39.0-7 2.0 Not Available [facility] (Lab) [address] [place], [address], 03/07/2023 17:56:00 03/07/20 23 03/07/2023 CBC/C OMPLE TE BLD COUNT W/DIF F lymphocytes 14.7 % 16.0-4 7.0 low Not Available [facility] (Lab) [address] [place], [address], 03/07/2023 17:56:00 03/07/20 23 03/07/2023 CBC/C OMPLE TE BLD COUNT W/DIF F monocytes 10.7 % 5.0-12 .0 Not Available [facility] (Lab) [address] [place], [address], 03/07/2023 17:56:00 03/07/20 23 03/07/2023 CBC/C OMPLE TE BLD COUNT W/DIF F eosinophils 2.0 % 1.0-7. 0 Not Available [facility] (Lab) [address] [place], [address], 03/07/2023 17:56:00 03/07/2003/07/2023 CBC/C OMPLE TE BLD COUNT W/DIF F basophils 0.8 % 0.0-2. 0 Not Available [facility] (Lab) [address] [place], [address], 03/07/2023 17:56:00 03/07/2003/07/2023 CBC/C OMPLE TE BLD COUNT W/DIF F immature granulocytes 0.4 % 0.00-0 .50 Not Available [facility] (Lab) [address] [place], [address], 03/07/2023 17:56:00 03/07/20 23 03/07/2023 CBC/C OMPLE TE BLD COUNT W/DIF F neutrophils, absolute count 3.54 x10'3 /uL 1.5-8. 0 Not Available [facility] (Lab) [address] [place], [address], 03/07/2023 17:56:00 03/07/20 23 03/07/2023 CBC/C OMPLE TE BLD COUNT W/DIF F lymphocytes, absolute count 0.73 x10'3 /uL 1.07-3 .43 low Not Available [facility] (Lab) [address] [place], [address], 03/07/2023 17:56:00 03/07/20 23 03/07/2023 CBC/C OMPLE TE BLD COUNT W/DIF F monocytes, absolute count 0.53 x10'3 /uL 0.29-0 .99 Not Available [facility] (Lab) [address] [place], [address], 03/07/2023 17:56:00 03/07/20 23 03/07/2023 CBC/C OMPLE TE BLD COUNT W/DIF F eosinophils, absolute count 0.10 x10'3 /uL 0.02-0 .53 Not Available [facility] (Lab) [address] [place], [address], 03/07/2023 17:56:00 03/07/20 23 03/07/2023 CBC/C OMPLE TE BLD COUNT W/DIF F basophils, absolute count 0.04 x10'3 /uL 0.01-0 .08 Not Available [facility] (Lab) [address] [place], [address], 03/07/2023 17:56:00 03/07/20 23 03/07/2023 CBC/C OMPLE TE BLD COUNT W/DIF F immature granulocytes ,absolute 0.02 x10'3 /uL 0.00-0 .05 Not Available [facility] (Lab) [address] [place], [address], 03/07/2023 17:56:00 03/07/20 23 03/07/2023 CBC/C OMPLE TE BLD COUNT W/DIF F nucleated red blood cells 0.0 % -0 Not Available [facility] (Lab) [address] [place], [address], 03/07/2023 17:56:00 03/07/20 23 03/07/2023 CBC/C OMPLE TE BLD COUNT W/DIF F NRBC# 0.00 x10'3 /uL Not Available [facility] (Lab) [address] [place], [address], 03/07/2023 17:56:00 03/07/2003/07/2023 HEMOG LOBIN A1C HA1C 6.1 % 4.0-6. 0 high Diabe ash Moses gould Crite jacqueline: <5.7% Consi stent with absen ce of diabe ash 5.7-6 .4% Consi stent with incre ased risk for diabe ash (pred iabet es) >OR=6 .5% Consi stent with diabe ash REFER ENCE: Diabe ash Care 2016, 39( ppl.1 ):s13 -s22 Not Available [facility] (Lab) [address] [place], [address], 03/07/2023 19:20:54 03/07/20 23 03/07/2023 COMPR EHENS ROBEL METAB OLIC PANEL sodium 141 mmol/ L 137-14 5 Not Available [facility] (Lab) [address] [place], [address], 03/07/2023 19:22:35 03/07/20 23 03/07/2023 COMPR EHENS ROBEL METAB OLIC PANEL potassium 3.8 mmol/ L 3.5-5. 1 Not Available [facility] (Lab) [address] [place], [address], 03/07/2023 19:22:35 03/07/20 23 03/07/2023 COMPR EHENS ROBEL METAB OLIC PANEL chloride 103 mmol/ L 98-107 Not Available [facility] (Lab) [address] [place], [address], 03/07/2023 19:22:35 03/07/20 23 03/07/2023 COMPR EHENS ROBEL METAB OLIC PANEL carbon dioxide 30 mmol/ L 22-30 Not Available [facility] (Lab) [address] [place], [address], 03/07/2023 19:22:35 03/07/20 23 03/07/2023 COMPR EHENS ROBEL METAB OLIC PANEL anion gap 11.8 mmol/ L 14-22 low Not Available [facility] (Lab) [address] [place], [address], 03/07/2023 19:22:35 03/07/20 23 03/07/2023 COMPR EHENS ROBEL METAB OLIC PANEL glucose 84 mg/dL 70-99 Not Available [facility] (Lab) [address] [place], [address], 03/07/2023 19:22:35 03/07/20 23 03/07/2023 COMPR EHENS ROBEL METAB OLIC PANEL BUN 25 mg/dL 8-19 high Not Available [facility] (Lab) [address] [place], [address], 03/07/2023 19:22:35 03/07/20 23 03/07/2023 COMPR EHENS ROBEL METAB OLIC PANEL creatinine 0.77 mg/dL 0.66-1 .25 Not Available [facility] (Lab) [address] [place], [address], 03/07/2023 19:22:35 03/07/20 23 03/07/2023 COMPR EHENS ROBEL METAB OLIC PANEL GFR >60 Refer ence Range : [place] ge GFR Healt hy Adult : >60 mL/mi n/1.7 3 m2 Chron ic Kidne y Disea se: 15-60 mL/mi n/1.7 3 m2 Kidne y Failu re: <15/m L/min /1.73 m2 www.n iddk. nih.g ov The MDRD study equat ion has not been valid ated in child savanna <18 years of age; pregn ant women ; the elder ly >85 years of age; or in some racia l or ethni c subgr oups, such as Hispa nics. Outsi de the valid ated columba eters , estim ated GFR is less accur ate, requi ring clini joao judgm ent on a case- by-ca se basis . Clini joao inter preta tion for other races and ages must be made by the clini lloyd. The MDRD study equat ion has not been valid ated for the evalu ation of serum creat inine relat ed to nutri [place] statu s or medic ation usage . For perso ns <18 years of age, a pedia tric GFR calcu lator is avail able on the [facility] websi te: https ://elijah w.kid rashida.o rg/pr ofess ional s/kdo qi/gf r_cal culat or Not Available [facility] (Lab) [address] [place], [address], 03/07/2023 19:22:35 03/07/20 23 03/07/2023 COMPR EHENS ROBEL METAB OLIC PANEL alkaline phosphatase 56 U/L 38-126 Not Available [facility] (Lab) [address] [place], [address], 03/07/2023 19:22:35 03/07/20 23 03/07/2023 COMPR EHENS ROBEL METAB OLIC PANEL alanine aminotransfe rase 27 U/L 0-35 Not Available [facility] (Lab) [address] [place], [address], 03/07/2023 19:22:35 03/07/20 23 03/07/2023 COMPR EHENS ROBEL METAB OLIC PANEL aspartate aminotransfe rase 25 U/L 15-37 Not Available [facility] (Lab) [address] [place], [address], 03/07/2023 19:22:35 03/07/20 23 03/07/2023 COMPR EHENS ROBEL METAB OLIC PANEL bilirubin, total 0.20 mg/dL 0.20-1 .30 Not Available [facility] (Lab) [address] [place], [address], 03/07/2023 19:22:35 03/07/20 23 03/07/2023 COMPR EHENS ROBEL METAB OLIC PANEL calcium 9.8 mg/dL 8.4-10 .2 Not Available [facility] (Lab) [address] [place], [address], 03/07/2023 19:22:35 03/07/20 23 03/07/2023 COMPR EHENS ROBEL METAB OLIC PANEL total protein 6.3 g/dL 6.3-8. 2 Not Available [facility] (Lab) [address] [place], [address], 03/07/2023 19:22:35 03/07/20 23 03/07/2023 COMPR EHENS ROBEL METAB OLIC PANEL albumin 4.1 g/dL 3.0-4. 4 Not Available [facility] (Lab) [address] [place], [address], 03/07/2023 19:22:35 03/07/20 23 03/07/2023 COMPR EHENS ROBEL METAB OLIC PANEL globulin 2.2 g/dL 2.6-4. 2 low Not Available [facility] (Lab) [address] [place], [address], 03/07/2023 19:22:35 03/07/20 23 03/07/2023 COMPR EHENS ROBEL METAB OLIC PANEL A/G ratio 1.9 ratio 1.0-2. 0 Not Available [facility] (Lab) [address] [place], [address], 03/07/2023 19:22:35 03/07/20 23 03/07/2023 LIPID PANEL cholesterol 125 mg/dL 140-19 9 low NIH ITZEL NSUS RECOM MENDA TION FOR CEASAR STERO L: ADULT CHILD LOW RISK: <200 <170 BORDE RLINE : <200- 239 ----- HIGH RISK: >240 >200 Not Available [facility] (Lab) [address] [place], [address], 03/07/2023 19:22:40 03/07/20 23 03/07/2023 LIPID PANEL triglyceride s 273 mg/dL 0-150 high NIH ITZEL NSUS REPOR T RECOM MENDA TION FOR TRIGL YCERI GINA: ADULT CHILD LOW RISK: <150 ----- BODER LINE: 150-1 99 ----- HIGH RISK: >200 ----- Not Available [facility] (Lab) [address] [place], [address], 03/07/2023 19:22:40 03/07/20 23 03/07/2023 LIPID PANEL HDL cholesterol 63 mg/dL 40- Not Available [facility] (Lab) [address] [place], [address], 03/07/2023 19:22:40 03/07/20 23 03/07/2023 LIPID PANEL LDL cholesterol, calculated 7 mg/dL 0-130 NIH ITZEL NSUS REPOR T RECOM MENDA TIONS FOR LDL: ADULT CHILD LOW RISK <130 <110 (OPTI MAL LDL) <100 ----- BORDE RLINE : 130-1 59 ----- HIGH RISK: >160 >130 A TRIGL YCERI DE RESUL T >400 INVAL IDATE S THE CALCU LATIO N FOR LDL FRACT IONAT ION - THE LDL RESUL T WILL NOT BE REPOR ARTHUR. Not Available [facility] (Lab) [address] [place], [address], 03/07/2023 19:22:40 07/03/19 23 07/02/2022 US, bladd er No observ ation record ed. [email or web address] [email or web address] [address], [address], [place], [address], 07/05/2022 10:36:06 07/16/19 23 07/15/2022 XR, chest , 2 view [facility] [address] [place] [address] Mesha pinedo Name: PAULA LOMELI Access ion #: [id number] Sex: F : 1960 3 Locati on: RAD Attend ing Physic jakob: JEAN CLAUDE GARCIA ng Physic jakob: DAKOTA FLOR Exam Date: 023 1:37 PM Exam Name: XR CHEST 2V Admitt ing Diagno sis(es ): RADIOL OGY REPORT - FINAL EXAM: XR CHEST 2V HISTOR Y: shortn ess of breath chest pain COMPAR RAMIRO: 2021 TECHNI QUE: Two views of the chest were perfor med. FINDIN GS: No pneumo thorax , consol idativ e infilt rates, pleura l effusi ons, or pulmon kim edema. The heart is not enlarg ed. IMPRES SHIRA: Unrema rkable 2 view chest. Page 1 of 2 [facility] Mesha pinedo Name: PAULA LOMELI Access ion #: [id number] Sex: F : 1960 3 Exam Date: 023 1:37 PM Exam Name: XR CHEST 2V Admitt ing Diagno sis(es ): Create d and electr onical ly signed by: Brandan baker MD Signed Date: 4:46 PM (CT) Dictat ed by: Brandan baker MD DD: 023 4:46 PM (CT) DT: 023 4:46 PM (CT) Page 2 of 2 [email or web address] [facility] (Imaging) [address] [place], [address], 09/23/2022 09:59:41 09/17/19 23 09/16/2022 XR, chest No observ ation record ed. [email or web address] [address], [place], [address], 09/23/2022 10:00:00 Result Notes None recorded. Problems Name Problem SNOMED Code Status Onset Date Resolution Date Notes Provider Name and Address Organization Details Recorded Time Cellulitis of foot 884386812 Active 2021 Not Available [facility] 4 12:02:15 Computed tomography result abnormal 789168925 Active 2022 Not Available [facility] 4 12:02:15 Postoperat [facility] Active 2021 Not Available [facility] 4 12:02:15 Chronic obstructiv e pulmonary disease 22278640 Active 2016 Not Available [facility] 4 12:02:15 CT of abdomen abnormal 8174645341066 9107 Active 2022 Not Available [facility] 4 12:02:15 Cirrhosis of liver 24932401 Active 2016 [facility] Available [facility] 4 12:02:15 Neuropathy due to diabetes mellitus 630778619 Active 2020 Not Available [facility] 4 12:02:15 Low back pain 879331374 Active 2021 Not Available [facility] 4 12:02:15 Chest pain 38135537 Active 2022 Not Available [facility] 4 12:02:15 Type 2 diabetes mellitus without complicati on 385861611 Active 2021 Not Available [facility] 4 12:02:15 Former heavy tobacco smoker 8152606411381 00 Active 2016 Not Available [facility] 4 12:02:15 Acute urinary tract infection 410415210 Active 2021 Not Available [facility] 4 12:02:15 Type 2 diabetes mellitus 26844732 Active 2020 Not Available [facility] 4 12:02:15 Cough 54972557 Active 2021 Not Available [facility] 4 12:02:15 Upper respirator y infection 63142380 Active 2021 Not Available [facility] 4 12:02:15 Hyperlipid emia 09541025 Active 2020 Not Available [facility] 4 12:02:15 Essential hypertensi on 07175495 Active 2020 Not Available [facility] 4 12:02:15 Otitis media 49752095 Active 2021 Not Available [facility] 4 12:02:15 Urinary tract infectious disease 78316304 Active 2021 Not Available [facility] 12:[facility]15 Closed fracture of fifth metatarsal bone 25690734 Active 2020 Not Available [facility] 4 12:02:15 Mental disorder 29112868 Active 2020 Not Available [facility] 4 12:02:15 COVID-19 482798040 Active 2021 Not Available [facility] 4 12:02:16 Hyponatrem ia 20025545 Active 2021 Not Available [facility] 4 12:02:16 Dysuria 76052447 Active 2022 Not Available [facility] 4 12:02:15 Flank pain 138716569 Active 2022 Not Available [facility] 4 12:02:15 Increased frequency of urination 095417127 Active 2022 Not Available [facility] 4 12:02:15 Urge incontinen ce of urine 03424465 Active 2022 Not Available [facility] 4 12:02:16 Dyspnea 277671792 Active 2022 Not Available [facility] 4 12:02:15 Nausea and vomiting 03566707 Active 2022 Not Available [facility] 4 12:02:15 Hydrourete r 78902175 Active 2022 Not Available [facility] 4 12:02:15 High grade B-cell lymphoma 153087773 Active 2022 Not Available [facility] 4 12:02:15 Uncontroll ed type 2 diabetes mellitus 156913845 Active 2022 Not Available [facility] 4 12:02:15 Notes:Medical History: Depre ssion Rhinitis with postnasal drip Eosinophils 120/uL IgE 344 IU/mL Alpha-1 antitrypsin PiMM 149 mg% Mild COPD RUL 3 & 4 mm nodules since 2017 Granulomatous disease (chest, liver, spleen) Hypertension Hyperlipidemia T2DM CAD HELLEN Right hepatic cyst Bilateral renal cysts Thoracic DDD Left foot fracture Procedure History: T&A 1974 Immunization History: J&J Covid 06/02/2020 Some problems listed in Document: #[id number] could not be added to this patient's chart. Please review this document and add these problems to the patient's chart manually as needed. Problem Notes None recorded. Procedures Surgical History Date Name Laterality Status Provider Name and Address Organization Details Recorded Time Foot Surgery completed Not Available [facility] 023 05:55:53 Tonsillectomy completed Not Available [facility] 05/26/2022 05:55:53 Hysterectomy completed Not Available [facility] 05/26/2022 05:55:53 Imaging Results Imaging Date Name Status LastModified by Organiz ation Details LastModified Time 07/02/2022 US, bladder completed [id number] [place] [address] [facility], [address], [place], [address], 07/05/2022 10:36:06 07/15/2022 XR, chest, 2 view completed [id number] [facility] (Imaging) [address] [place], [address], 09/23/2022 09:59:41 09/16/2022 XR, chest completed [id number] [address], [address], 09/23/2022 10:00:00 Procedure Notes None recorded. Medical Equipment None Reported. Allergies Allergen ID Allergen Name Allergen Category Reaction Reaction Severity Criticality Documentation Date Start Date Code Code System Note Provider Name and Address Organization Details Recorded Time 03224 hydrochlo rothiazid e medicatio n Not available Not available Not available 05/26/2022 5487 RxNorm Not Available [facility] 06:08:25 97060 clonazepa m medicatio n Not available Not available Not available 05/26/2022 2598 RxNorm uncon troll ed muscl e movem ent Not Available [facility] 3 06:08:25 29677 chlorthal idone medicatio n Not available Not available Not available 05/26/2022 2409 RxNorm Not Available [facility] 3 06:08:25 41052 aspirin medicatio n eye swelling severe Not available 05/26/2022 1191 RxNorm Not Available [facility] 3 06:08:25 51131 azithromy john medicatio n facial swelling Not available Not available 05/26/2022 23822 RxNorm tongu e swell ing Not Available [facility] 3 06:08:25 97960 cefdinir medicatio n rash Not available Not available 04/21/20232023 53680 RxNorm Quin Vieira RN [facility] [place] [facility] [place] [employer] 4 16:44:05 Medications Name Sig Start Date Stop Date Status Note LastModified by Organization Details LastModified Time ziprasido ne 80 mg capsule TAKE 2 CAPSULES BY MOUTH EVERY DAY WITH MEALS active Not Available Not Available No t Available amoxicill in 500 mg capsule TAKE 1 CAPSULE BY MOUTH THREE TIMES DAILY FOR 7 DAYS 04/09 completed Not Available Not Available Not Available fluconazo le 100 mg tablet TK 1 T PO QD FOR 21 DAYS UTD active Not Available Not Available No t Available atorvasta tin 40 mg tablet TAKE 1 TABLET BY MOUTH AT BEDTIME active Not Available Not Available No t Available ivermecti n 3 mg tablet 10/15 completed Not Available Not Available Not Available primidone 50 mg tablet TAKE 1 TABLET BY MOUTH EVERY NIGHT AT BEDTIME 03/07 completed Not Available Not Available Not Available Novolin 70/30 U-100 Insulin 100 unit/mL subcutane ous suspensio n ADMINIST ER 10 UNITS UNDER THE SKIN TWICE DAILY DIRECTED 02/01 completed Not Available Not Available Not Available BD Alcohol Swabs APPLY 1 PAD TOPICALL Y TO THE AFFECTED AREA FIVE TIMES DAILY DIRECTED FOR 30 DAYS 05/11 completed Not Available Not Available Not Available prednison e 10 mg tablet 12/24 completed Not Available Not Available Not Available gabapenti n 600 mg tablet TAKE 1 TABLET BY MOUTH THREE TIMES DAILY DIRECTED 09/21 completed Not Available Not Available Not Available albuterol sulfate 2.5 mg/3 mL (0.083 %) solution for nebulizat ion USE 3 ML VIA NEBULIZE R THREE TIMES DAILY DIRECTED 05/11 completed Not Available Not Available Not Available enalapril maleate 5 mg tablet TAKE 1 TABLET BY MOUTH TWICE DAILY 09/21 completed Not Available Not Available Not Available azithromy john 250 mg tablet TAKE 2 TABLETS BY MOUTH FOR 1 DAY THEN TAKE 1 TABLET BY MOUTH DAILY FOR 4 DAYS active Not Available Not Available No t Available pravastat in 40 mg tablet TAKE 1 TABLET BY MOUTH EVERY DAY AFTER DINNER 11/30 completed Not Available Not Available Not Available fluconazo le 150 mg tablet TK 1 T PO QD FOR 1 DAY UTD 05/09 completed Not Available Not Available Not Available benzonata te 200 mg capsule Take 1 capsule 3 times a day by oral route as needed. active Not Available Not Available No t Available sulfameth oxazole 400 mg-trimet hoprim 80 mg tablet TAKE 1 TABLET BY MOUTH EVERY 12 HOURS FOR 3 DAYS DIRECTED 11/19 completed Not Available Not Available Not Available ampicilli n 500 mg capsule TAKE 1 CAPSULE BY MOUTH EVERY 6 HOURS AFTER MEALS FOR 5 DAYS 11/19 completed Not Available Not Available Not Available hydrocodo ne 5 mg-acetam inophen 325 mg tablet TAKE 1 TABLET BY MOUTH EVERY 6 HOURS NEEDED FOR PAIN 04/09 completed Not Available Not Available Not Available ondansetr on HCl 8 mg tablet TAKE 1 TABLET BY MOUTH EVERY 6 HOURS NEEDED FOR NAUSEA OR VOMITING 02/01 completed Not Available Not Available Not Available fluconazo le 200 mg tablet TAKE 2 TABLETS BY MOUTH EVERY DAY 02/01 completed Not Available Not Available Not Available FreeStyle Lancets 28 gauge USE BID 11/13 completed Not Available Not Available Not Available phenazopy ridine 200 mg tablet TAKE 1 TABLET BY MOUTH THREE TIMES DAILY FOR 3 DAYS DIRECTED 12/10 completed Not Available Not Available Not Available ondansetr on HCl 4 mg tablet Take 1 tablet twice a day by oral route as needed. 11/30 completed Not Available Not Available Not Available prednison e 20 mg tablet Take 2 tablets every day by oral route in the morning for 5 days. 10/15 completed Not Available Not Available Not Available clonazepa m 0.5 mg tablet 02/07 completed Not Available Not Available Not Available gabapenti n 400 mg capsule 1 PO TID 10/15 completed Not Available Not Available Not Available prednison e 5 mg tablet TK 6 TS PO QD FOR 5 DAYS 05/20 completed Not Available Not Available Not Available olanzapin e 5 mg tablet 12/24 completed Not Available Not Available Not Available permethri n 5 % topical cream 10/15 completed Not Available Not Available Not Available olanzapin e 10 mg tablet 12/24 completed Not Available Not Available Not Available clopidogr el 75 mg tablet TAKE 1 TABLET BY MOUTH EVERY DAY active Not Available Not Available No t Available chlorthal idone 25 mg tablet TAKE 1 TABLET BY MOUTH EVERY DAY 02/22 completed Pt cardiolo gist stopped medicati on, started on HCTZ Not Available Not Available Not Available amlodipin e 5 mg tablet TAKE 1 TABLET BY MOUTH EVERY DAY 07/05 completed Not Available Not Available Not Available prochlorp erazine maleate 10 mg tablet TAKE 1 TABLET BY MOUTH EVERY 6 HOURS NEEDED FOR NAUSEA OR VOMITING 02/01 completed ON HOLD Not Available Not Available Not Available valacyclo vir 500 mg tablet TAKE 1 TABLET BY MOUTH EVERY 12 HOURS active Not Available Not Available No t Available ciproflox acin 500 mg tablet Take 1 tablet twice a day by oral route for 7 days. active Not Available Not Available No t Available sulfameth oxazole 800 mg-trimet hoprim 160 mg tablet TAKE 1 TABLET BY MOUTH EVERY 12 HOURS AFTER MEALS FOR 5 DAYS 02/01 completed Not Available Not Available Not Available tramadol 50 mg tablet TAKE 1 TABLET BY MOUTH EVERY 6 HOURS NEEDED FOR PAIN 06/29 completed Not Available Not Available Not Available triamcino lone acetonide 0.1 % topical cream 10/15 completed Not Available Not Available Not Available amoxicill in 500 mg tablet Take 1 tablet 3 times a day by oral route for 7 days. active Not Available Not Available No t Available glimepiri de 2 mg tablet 12/24 completed Not Available Not Available Not Available pantopraz ole 20 mg tablet,de layed release TAKE 1 TABLET BY MOUTH EVERY DAY BEFORE A MEAL active Not Available Not Available No t Available oxycodone -acetamin ophen 5 mg-325 mg tablet TAKE 1 TABLET BY MOUTH EVERY 6 HOURS NEEDED FOR PAIN 06/29 completed Not Available Not Available Not Available terbinafi ne HCl 250 mg tablet 10/15 completed Not Available Not Available Not Available potassium chloride ER 20 mEq tablet,ex tended release(p art/cryst ) 11/30 completed Not Available Not Available Not Available famotidin e 20 mg tablet TK 1 T PO BID 11/27 completed Not Available Not Available Not Available prednisol one acetate 1 % eye drops,haley pension active Not Available Not Available Not Available tamsulosi n 0.4 mg capsule TAKE 1 CAPSULE BY MOUTH EVERY DAY DIRECTED 03/30 completed Not Available Not Available Not Available OneTouch Ultra Test strips TEST BLOOD SUGAR FOUR TIMES DAILY active Not Available Not Available No t Available amlodipin e 10 mg tablet TAKE 1 TABLET BY MOUTH EVERY DAY. STOP HCTZ 02/01 completed ON HOLD Not Available Not Available Not Available benzonata te 100 mg capsule TK ONE C PO Q 8 H PRN COU / COG 12/24 completed Not Available Not Available Not Available hydrocodo ne 7.5 mg-acetam inophen 325 mg tablet TAKE 1 TABLET BY MOUTH EVERY 6 HOURS NEEDED FOR PAIN 01/30 completed Not Available Not Available Not Available paroxetin e 30 mg tablet 12/24 completed Not Available Not Available Not Available pantopraz ole 40 mg tablet,de layed release TK 1 T PO QD 05/09 completed Not Available Not Available Not Available metformin 1,000 mg tablet 12/24 completed Not Available Not Available Not Available ranitidin e 150 mg tablet TK 1 T PO BID ATC 10/15 completed Not Available Not Available Not Available glimepiri de 4 mg tablet 12/24 completed Not Available Not Available Not Available prednison e 50 mg tablet 10/15 completed Not Available Not Available Not Available promethaz ine 25 mg tablet TAKE 1/2 TABLET BY MOUTH EVERY 6 HOURS NEEDED 11/19 completed Not Available Not Available Not Available metoprolo l tartrate 50 mg tablet 11/13 completed Not Available Not Available Not Available sulfameth oxazole 200 mg-trimet hoprim 40 mg/5 mL oral suspensio n SHAKE LQ AND TK 20 ML PO Q 12 H WITH FOOD FOR 5 DAYS 10/15 completed Not Available Not Available Not Available gabapenti n 300 mg capsule TAKE ONE CAPSULE BY MOUTH THREE TIMES DAILY active Not Available Not Available No t Available insulin syringe U-100 with needle 1 mL 31 gauge x 08/10 completed Not Available Not Available Not Available olanzapin e 15 mg tablet TK 1 T PO QD HS 11/27 completed Not Available Not Available Not Available pravastat in 20 mg tablet 11/13 completed Not Available Not Available Not Available hydrochlo rothiazid e 25 mg tablet TAKE 1 TABLET BY MOUTH EVERY DAY 04/09 completed Not Available Not Available Not Available mupirocin 2 % topical ointment APPLY A SMALL AMOUNT TOPICALL Y TO THE AFFECTED AREA OF INCISION THREE TIMES DAILY active Not Available Not Available No t Available gabapenti n 100 mg capsule TAKE 1 CAPSULE BY MOUTH THREE TIMES DAILY 11/30 completed Not Available Not Available Not Available levofloxa john 500 mg tablet TAKE 1 TABLET BY MOUTH EVERY DAY 03/07 completed Not Available Not Available Not Available levofloxa john 750 mg tablet 12/24 completed Not Available Not Available Not Available methylpre dnisolone 4 mg tablets in a dose pack 12/24 completed Not Available Not Available Not Available albuterol sulfate HFA 90 mcg/actua tion aerosol inhaler INHALE 1 PUFF BY MOUTH EVERY 4 HOURS NEEDED active Not Available Not Available No t Available paroxetin e 40 mg tablet TAKE 1 TABLET BY MOUTH EVERY DAY AT BEDTIME active Not Available Not Available No t Available ipratropi um bromide 42 mcg (0.06 %) nasal spray USE 1 SPRAY IN EACH NOSTRIL FOUR TIMES DAILY NEEDED 07/05 completed Not Available Not Available Not Available oxybutyni n chloride 5 mg tablet TAKE 1 TABLET BY MOUTH TWICE DAILY DIRECTED 03/30 completed Not Available Not Available Not Available lisinopri l 40 mg tablet 11/27 completed Not Available Not Available Not Available cefdinir 300 mg capsule TAKE 1 CAPSULE BY MOUTH TWICE DAILY FOR 7 DAYS active Not Available Not Available No t Available fluticaso ne propionat e 50 mcg/actua tion nasal spray,haley pension SHAKE LQ AND U 1 SPR IEN QD UTD 10/15 completed Not Available Not Available Not Available loratadin e 10 mg tablet TK 1 T PO D 11/27 completed Not Available Not Available Not Available metoclopr amide 10 mg tablet TAKE 1 TABLET BY MOUTH TWICE DAILY DIRECTED 03/07 completed ON HOLD Not Available Not Available Not Available amoxicill in 875 mg-potass ium clavulana te 125 mg tablet TK 1 T PO Q 12 H FOR 7 DAYS UTD 10/15 completed Not Available Not Available Not Available amoxicill in 500 mg-potass ium clavulana te 125 mg tablet Take 1 tablet every 12 hours by oral route as directed for 5 days. 05/11 completed Not Available Not Available Not Available hydroxyzi ne pamoate 25 mg capsule TAKE 1 CAPSULE BY MOUTH EVERY DAY IN THE MORNING active Not Available Not Available No t Available Novolog FlexPen U-100 Insulin aspart 100 unit/mL (3 mL) subcutane ous INJECT 5 UNITS UNDER THE SKIN 3 TIMES DAILY active Not Available Not Available No t Available metformin ER 750 mg tablet,ex tended release 24 hr 12/24 completed Not Available Not Available Not Available ciproflox acin 0.3 %-dexamet hasone 0.1 % ear drops,haley pension SHAKE LIQUID AND INSTILL 4 DROPS IN BOTH EARS TWICE DAILY 11/30 completed Not Available Not Available Not Available potassium chloride ER 10 mEq tablet,ex tended release(p art/cryst ) TAKE 2 TABLETS BY MOUTH DAILY WITH FOOD 11/30 completed Not Available Not Available Not Available metoprolo l tartrate 25 mg tablet TAKE 1/2 TABLET BY MOUTH TWICE DAILY 02/01 completed ON HOLD Not Available Not Available Not Available Spiriva with [employer] r 18 mcg and inhalatio n capsules 06/06 completed Not Available Not Available Not Available nitrofura ntoin monohydra te/macroc rystals 100 mg capsule TAKE 1 CAPSULE BY MOUTH EVERY 12 HOURS FOR 5 DAYS 07/05 completed Not Available Not Available Not Available BD Ultra-Fin e Mini Pen Needle 31 gauge x 3/16 DIRECTED TO INJECT INSULIN FOUR TIMES DAILY active Not Available Not Available No t Available senna active Not Available Not Availa ble Not Available Ventolin HFA 05/11 completed Not Available Not Available Not Available Levemir U-100 Insulin 100 unit/mL subcutane ous solution ADMINIST ER 20 UNITS UNDER THE SKIN DAILY WITH LUNCH 11/30 completed Not Available Not Available Not Available OneTouch Ultra2 Meter kit USE TO TEST BID 11/13 completed Not Available Not Available Not Available BD Ultra-Fin e Short Pen Needle 31 gauge x 08/10 active Not Available Not Available Not Available Januvia 50 mg tablet TK 1 T PO QD UTD 12/24 completed Not Available Not Available Not Available Symbicort 160 mcg-4.5 mcg/actua tion HFA aerosol inhaler 06/06 completed Not Available Not Available Not Available peg 3350-elec trolytes 236 gram-22.7 4 gram-6.74 gram-5.86 gram solution TAKE DIRECTED BY OFFICE 11/19 completed Not Available Not Available Not Available Lantus Solostar U-100 Insulin 100 unit/mL (3 mL) subcutane ous pen ADMINIST ER 12 UNITS UNDER THE SKIN EVERY DAY AT BEDTIME active Not Available Not Available No t Available TRUEplus Lancets 30 gauge USE TWICE DAILY 03/10 completed Not Available Not Available Not Available BD Insulin Syringe Ultra-Fin e 0.3 mL 31 gauge x 08/10 USE 3 TIMES DAILY DIRECTED FOR INSULIN INJECTIO NS active Not Available Not Available No t Available potassium chloride ER 20 mEq tablet,ex tended release TAKE 1 TABLET BY MOUTH TWICE DAILY 02/01 completed Not Available Not Available Not Available Spiriva Respimat 2.5 mcg/actua tion solution for inhalatio n 06/06 completed Not Available Not Available Not Available Arnuity Ellipta 100 mcg/actua tion powder for inhalatio n INHALE 1 PUFF BY MOUTH EVERY DAY 09/26 completed Not Available Not Available Not Available Stiolto Respimat 2.5 mcg-2.5 mcg/actua tion solution for inhalatio n INHALE 2 PUFFS PO QD 10/15 completed Not Available Not Available Not Available Zarxio 300 mcg/0.5 mL injection syringe 11/30 completed Not Available Not Available Not Available Flucelvax Quad (PF) 60 mcg (15 mcg x 4)/0.5 mL IM syringe ADM 0.5ML IM UTD 05/20 completed Not Available Not Available Not Available Trelegy Ellipta 100 mcg-62.5 mcg-25 mcg powder for inhalatio n INHALE 1 PUFF BY MOUTH EVERY DAY 2022 active Not Available Not Available Not Avai lable OneTouch Ultra Blue Test Strip USE TO TEST TWICE DAILY 11/13 completed Not Available Not Available Not Available BD Veo Insulin Syringe Ultra-Fin e (half unit) 0.3 mL 31 gauge x 15/64 active Not Available Not Available Not Available Phosphoro us 250 mg tablet TAKE 1 TABLET BY MOUTH THREE TIMES DAILY WITH FOOD 02/01 completed ON HOLD Not Available Not Available Not Available Novolin 70-30 FlexPen U-100 Insulin 100 unit/mL (70-30) subcutane ous 10/15 completed Not Available Not Available Not Available OneTouch Ultra2 Meter USE TO TEST BLOOD SUGAR TWICE DAILY active Not Available Not Available No t Available OneTouch Delica Plus Lancet 33 gauge TEST TWICE DAILY active Not Available Not Available No t Available Fluzone Quad (PF) 60 mcg (15 mcg x 4)/0.5 mL IM syringe ADM 0.5ML IM UTD 02/07 completed Not Available Not Available Not Available Paxlovid 150 mg-100 mg tablets in a dose pack (Renal Dose) Take 2 tablets twice a day by oral route for 5 days. 10/26 completed Pt GFR is 57 on 06/29/2021 Not Available Not Available Not Available Vitals Date Recorded Body height Body mass index (BMI) Body weight Oxygen saturation Oxygen saturation in Arterial blood by Pulse oximetry Body temperature Heart rate Systolic blood pressure Diastolic blood pressure Provider Name and Address Organization Details Last Updated DateTime 3 162.56 cm 29.4 kg/m2 99716.3 g 89 % 89 % 97.3 [degF] 78 /min 125 mm[Hg] 83 mm[Hg] KINGSLEY [place] [facility] [place] [facility] 3 12:36:54 Date Recorded Body height Body mass index (BMI) Body weight Body temperature Heart rate Systolic blood pressure Diastolic blood pressure Provider Name and Address Organization Details Last Updated DateTime 3 162.56 cm 23.5 kg/m2 70905.1 5 g 97.6 [degF] 98 /min 102 mm[Hg] 60 mm[Hg] KINGSLEY Mccullough [facility] 3 11:28:14 Date Recorded Body height Body temperature Heart rate Systolic blood pressure Diastolic blood pressure Provider Name and Address Organization Details Last Updated DateTime 3 162.56 cm 97.5 [degF] 91 /min 114 mm[Hg] 68 mm[Hg] Ritika Espinoza RN [facility] [employer] [facility] 3 15:06:55 Date Recorded Body height Body temperature Heart rate Systolic blood pressure Diastolic blood pressure Provider Name and Address Organization Details Last Updated DateTime 02/01/2023 162.56 cm 97.4 [degF] 81 /min 110 mm[Hg] 68 mm[Hg] KINGSLEY Mccullough [facility] 3 15:10:12 Date Recorded Body height Body temperature Heart rate Oxygen saturation Oxygen saturation in Arterial blood by Pulse oximetry Systolic blood pressure Diastolic blood pressure Provider Name and Address Organization Details Last Updated DateTime 3 162.56 cm 97.5 [degF] 87 /min 95 % 95 % 110 mm[Hg] 62 mm[Hg] KINGSLEY Mccullough [facility] 3 15:26:25 Social History Question Answer Notes LastModified by Organization Details LastModified Time Tobacco Smoking Status Former Smoker quit 2010 Not Available [facility] 05/26/2022 05:55:15 Do You Have An Advance Directive? No [id number] Information not available 05/26/2022 What Is Your Level Of Alcohol Consumption? None Quit 2007 [id number] Information not available 05/26/2022 Do You Wear A Helmet When Biking? No [id number] Information not available 05/26/2022 What Is Your Level Of Caffeine Consumption? None [id number] Information not available 05/26/2022 In The 14 Days Before Symptom Onset, Have You Had Close Contact With A Laboratory-confi rmed COVID-19 While That Case Was Ill? No [id number] Information not available 05/26/2022 In The 14 Days Before Symptom Onset, Have You Had Close Contact With A Person Who Is Under Investigation For COVID-19 While That Person Was Ill? No [id number] Information not available 05/26/2022 What Type Of Diet Are You Following? REGULAR [id number] Information not available 05/26/2022 What Is The Highest Grade Or Level Of School You Have Completed Or The Highest Degree You Have Received? [id number] Information not available 05/26/2022 Have There Been Any Changes To Your Family Or Social Situation? No [id number] Information not available 05/26/2022 What Is The Fluoride Status Of Your Home? Unknown [id number] Information not available 05/26/2022 When Did You Quit Smoking? 6-10yearssincelastc igarette [id number] Information not available 05/26/2022 Are There Any Guns Present In Your Home? No [email or web address].[id number] [id number] Information not available 05/26/2022 Do You Use Insect Repellent Routinely? No [id number] Information not available 05/26/2022 Where Do You Live? SingleLevelHouse [email or web address].[id number] [id number] Information not available 05/26/2022 Do You Have A Medical Power Of Retort Fireman? No [email or web address].[id number] [id number] Information not available 05/26/2022 What Was The Date Of Your Most Recent Tobacco Screening? 03/07/2023 [email or web address] Information not available 03/07/2023 Do You Have Any Pets? No [id number] Information not available 05/26/2022 What Is Your Relationship Status? [id number] [id number] Information not available 05/26/2022 Do You Use Your Seat Belt Or Car Seat Routinely? Yes [email or web address].[id number] [id number] Information not available 05/26/2022 Do You Have Smoke And Carbon Monoxide Detectors In Your Home? Yes [id number] [id number] Information not available 05/26/2022 At What Age Did You Start Smoking Tobacco? 16 [id number] [id number] Information not available 05/26/2022 Are You Passively Exposed To Smoke? No [id number] [id number] Information not available 05/26/2022 Are There Any Smokers In Your House? No [email or web address].[id number] [id number] Information not available 05/26/2022 What Types Of Sporting Activities Do You Participate In? None [email or web address].0301 [id number] Information not available 05/26/2022 Do You Feel Stressed (tense, Restless, Nervous, Or Anxious, Or Unable To Sleep At Night)? [id number] [id number] [id number] Information not available 05/26/2022 Do You Use Any Illicit Or Recreational Drugs? No MIGRATION.0301 [id number] Information not available 05/26/2022 Do You Use Sunscreen Routinely? No MIGRATION.0301 [id number] Information not available 05/26/2022 Has Tobacco Cessation Counseling Been Provided? No MIGRATION.0301 [id number] Information not available 05/26/2022 Have You Recently Traveled Abroad? No MIGRATION.0301 [id number] Information not available 05/26/2022 Do You Have Any Dietary Restrictions? No MIGRATION.0301 [id number] Information not available 05/26/2022 Do You Or Have You Ever Used Any Other Forms Of Tobacco Or Nicotine? No MIGRATION.0301 [id number] Information not available 05/26/2022 Sex: Female Functional Status Question Answer Note LastModified by Organizat ion Details LastModified Time What is your exercise level? Moderate [id number] Information not available 05/26/2022 Mental Status None recorded. Family History Relationship Description Onset Age of this Age Resolved Age Notes LastModified by Organization Details LastModified Time Mother Hypertensive disorder [id number] Not available 05/26/2022 05:55:57 Mother Hyperlipidem ia MIGRATION.686 [id number] Not available 05/26/2022 05:55:57 Sister Hypertensive disorder MIGRATION.592 [id number] Not available 05/26/2022 05:55:57 Sister Malignant tumor of neck MIGRATION.503 [id number] Not available 05/26/2022 05:55:57 Sister Chronic obstructive pulmonary disease MIGRATION.642 [id number] Not available 05/26/2022 05:55:57 Brother Diabetes mellitus MIGRATION.558 [id number] Not available 05/26/2022 05:55:57 Medical History Condition Response NERVE DISEASE Y BLINDNESS N RHEUMATIC FEVER N KIDNEY STONES N BLADDER PROBLEMS N MRSA N OTHER # 1 N POLIO N LUNG DISEASE/DISORDER N HISTORY OF DRUG ABUSE N RADIATION / CHEMOTHERAPY N COPD Y Other # 2 N BLOOD DISEASES N EAR OR HEARING PROBLEMS N MUMPS N SHINGLES N BOWEL PROBLEMS Y DEPRESSION (INCLUDING POST ) Y STROKE/TIA N ULCERS N BENIGN PROSTATIC HYPERPLASIA N MEASLES N HYPOTENSION N MYOCARDIAL INFARCTION N OBESITY N GERD/NAUSEA N ANEURYSM N URINARY/BLADDER/KIDNEY PROBLEMS Y CORONARY ARTERY DISEASE (CAD) N ADDICTION CONCERNS N ENDOMETRIOSIS N Impotence N USE OF BLOOD THINNERS N SKIN PROBLEMS N GASTROINTESTINAL DISORDER N PERIPHERAL VASCULAR DISEASE N MUSCLE,JOINT OR BONE PROBLEMS N GASTROINTESTINAL BLEEDING N BLOOD CLOTS N ASTHMA Y CATARACTS N ERECTILE DYSFUNCTION N VARICOSITIES N GI PROBLEMS N Low Testosterone N INFERTILITY N AIDS/HIV N CHEMOTHERAPY / RADIATION N LIVER DISEASE N MALE HYPOGONADISM N HYPERTENSION Y Deficiency N TOURETTE'S N ANXIETY DISORDER Y BLOOD TRANSFUSION N ANEMIA/BLOOD DISORDER N CHRONIC EAR INFECTIONS N BRONCHITIS N TUBERCULOSIS N GLAUCOMA N FOOT PROBLEM N DIVERTICULITIS N CHICKENPOX N SLEEP APNEA N INFECTIOUS DISEASE N HEART ARRHYTHMIA N PROSTATE N INSOMNIA N HIGH CHOLESTEROL / HYPERLIPIDEMIA N HYPERTHYROIDISM N EYE PROBLEMS N EDEMA N CHRONIC PAIN SYNDROME N HYPOTHYROIDISM N CAROTID BLOCKAGE N CONSTIPATION N BACK / NECK PROBLEMS N HAVE YOU BEEN HOSPITALIZED OR SEEN IN [facility] IN THE PAST YEAR ? Y ATHEROSCLEROSIS N BREAST PROBLEMS N DIALYSIS N ECZEMA N OSTEOPOROSIS N ARTHRITIS N APPENDICITIS N DIABETES, TYPE Y BAD TEETH N ENT N HEARTBURN / REFLUX Y AUTISM SPECTRUM DISORDER (ASD) N HEPATITIS / LIVER DISEASE N GOUT N SLEEP DISORDER N ALZHEIMER'S DISEASE N Brain Problems N HERPES N DEMENTIA N HEADACHES/MIGRAINES N SEIZURES/EPILEPSY N VASCULAR DISEASE N PACEMAKER N Blood Disorder N DIZZINESS N HEART DISEASE/HEART PROBLEMS N KIDNEY DISEASE N MULTIPLE SCLEROSIS N CARDIAC ARRHYTHMIA N CANCER: SPECIFY N ATRIAL FIBRILLATION N Gall Stones N PULMONARY EMBOLISM N AUTOIMMUNE DISEASE N Gynecological HistoryNo gynecological history recorded. Obstetrics History GPAL:G 0 P 0 0 0 0 Immunizations Vaccine Type Date Status Note Provider Nam e and Address Organization Details Recorded Time COVID-19, mRNA, LNP-S, PF, 30 mcg/0.3 mL dose 2 completed Not Available [facility] 04/22/2023 12:02:17 Influenza, high-dose, quadrivalent, PF 2 completed Not Available [facility] 04/22/2023 12:02:17 Influenza, split virus, quadrivalent, preservative 0 completed Not Available [facility] 04/22/2023 12:02:17 Influenza, split virus, quadrivalent, preservative 9 completed Not Available [facility] 04/22/2023 12:02:17 influenza, unspecified formulation 7 completed Not Available [facility] 04/22/2023 12:02:17 COVID-19, mRNA, LNP-S, PF, 30 mcg/0.3 mL dose 1 completed Not Available [facility] 04/22/2023 12:02:17 COVID-19 vaccine, vector-nr, rS-Ad26, PF, 0.5 mL 1 completed Not Available [facility] 04/22/2023 12:02:17 influenza, unspecified formulation 5 completed Not Available [facility] 04/22/2023 12:02:17 Influenza, split virus, quadrivalent, PF 1 completed Not Available [facility] 04/22/2023 12:02:17 Past Encounters Encounter ID Performer Location Encounter Start Date Encounter Closed Date Diagnosis/Indication Diagnosis SNOMED-CT Code Diagnosis ICD10 Code Diagnosis Note [id number] [facility] [address] [address] 11/19/2020 00:00:00 11/19/2020 12:29:48 [id number] [facility] [address] [address] 12/10/2020 00:00:00 12/10/2020 12:17:27 [id number] [facility] [address] [address] 01/30/2021 00:00:00 02/08/2021 22:11:25 [id number] [facility] [place] [address] [facility] [place] [address] 02/02/2021 00:00:00 02/02/2021 14:24:06 [id number] [facility] [place] [address], [address] [place] [address] 02/10/2021 00:00:00 02/10/2021 12:54:52 [id number] [facility] [place] [address], [address] [place] [address] 02/16/2021 00:00:00 02/16/2021 09:17:20 [id number] [facility] [place] [address], [address] [place] [address] 03/09/2021 00:00:00 03/09/2021 12:59:46 [id number] [facility] [address] [place] [address] 03/30/2021 00:00:00 03/30/2021 22:56:25 [id number] [facility] [place] [address], [facility] [address] [place] [address] 04/20/2021 00:00:00 04/20/2021 11:25:01 [id number] [facility] [place] [address], [facility] [address] [place] [address] 04/27/2021 00:00:00 04/27/2021 19:27:40 [id number] [facility] [place] [address], [address] [place] [address] 05/04/2021 00:00:00 05/04/2021 15:45:18 [id number] [facility] [place] [address], [address] [place] [address] 05/11/2021 00:00:00 05/12/2021 08:55:56 [id number] [facility] [place] [address], [facility] 4 [place] [address] 05/25/2021 00:00:00 05/25/2021 12:49:04 [id number] [facility] [address] [place] [address] 06/11/2021 00:00:00 06/11/2021 14:54:15 [id number] [facility] [address] [address] 06/29/2021 00:00:00 07/19/2021 16:09:18 [id number] [facility] [place] [id number] [facility] [place] [address] 07/20/2021 00:00:00 07/20/2021 22:07:42 [id number] [facility] [address] [address] 08/12/2021 00:00:00 08/12/2021 21:04:41 [id number] [facility] [address] [address] 10/26/2021 00:00:00 11/10/2021 22:20:42 [id number] [facility] [address] [address] 02/01/2022 00:00:00 02/01/2022 22:49:54 [id number] [facility] [address] [address] 04/09/2022 00:00:00 04/09/2022 15:41:24 [id number] [facility] [address] [address] 05/07/2022 00:00:00 05/16/2022 16:17:25 [id number] Agustin Flor MD [facility] [address] [address] 05/31/2022 14:34:19 05/31/2022 15:41:31 Computed tomography result abnormal 692915084 R93.89 [id number] Jean Claude Garcia NP [facility] [address] [address] 07/02/2022 11:38:25 07/02/2022 12:42:22 Dysuria 44132111 R30.0 We discussed avoiding bladder irritants such as carbonated beverages, caffeine, spicy/ acidic foods, alcohol, and/ or tobacco products. Will send urine cytology due to irritative urinary symptoms and past heavy smoker. Flank pain 434291246 R10 .9 pain reproducib le with palpation. I suspect pain is nerve/musc uloskeleta l related. UA today is negative for blood. No history of stones. Will check renal ultrasound to rule in/ out urologic pathology. follow-up after renal ultrasound to discuss results. Increased frequency of urination 411731086 R35.0 Avoid bladder irritants. Limit fluids 2 hours prior to bedtime. If patient is unsuccessf ul with behavioral strategies may consider anticholin ergic/beta 3 agonist or PF PT. Urge incon tinence of urine 04302492 N39.41 [id number] Agustin Flor MD [facility] Internal Med [facility] [address] [place] [address] Ave[address] [address] 07/05/2022 14:31:37 07/05/2022 16:10:59 Dyspnea 289681738 R06.02 Computed t omography result abnormal 522477561 R93.89 Nausea and vomiting [id number] [id number] R11.2 [id number] Jean Claude Garcia NP [facility] [address], [address] [address] 07/19/2022 12:22:36 07/19/2022 13:07:12 Dysuria 69991097 R30.0 We discussed avoiding bladder irritants such as carbonated beverages, caffeine, spicy/ acidic foods, alcohol, and/ or tobacco products. Will send urine cytology due to irritative urinary symptoms and past heavy smoker. 07/19/2022 Improved. Flank pain 502021681 R10 .9 get CTU. Increased frequency of urination 284474557 R35.0 Avoid bladder irritants. Limit fluids 2 hours prior to bedtime. If patient is unsuccessf ul with behavioral strategies may consider anticholin ergic/beta 3 agonist or PF PT. Urge incon tinence of urine 19130883 N39.41 Hydroureter 85010433 N13 .4 Will check CTU for structural evaluation to assess cause of left hydrourete r. No contrast allergy. I will call with results and plan appropriat e follow-up. We discussed in the abscence of structural obstructio n will need to get lasix renogram for functional assessment . [id number] Agustin Flor MD [facility] Internal [facility] [address] 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 [id number] Agustin Flor MD [facility] Internal Med [facility] [address] [place] [address] 1 11/30/2022 14:50:19 11/30/2022 15:37:56 Essential hypertension 44862641 I10 Type 2 alok betes mellitus 77780751 E11.9 Hyperlipidemia 50458955 E78.5 [id number] Agustin Flor MD [facility] Internal [place] [address] [place] [address] 1 02/01/2023 14:49:39 02/01/2023 16:00:58 High grade B-cell lymphoma 535556480 C85.10 Essential hypertension 64925244 I10 Hyperlipidemia 28430588 E78.5 Type 2 alok betes mellitus 95104291 E11.9 [id number] Agustin Flor MD [facility] Internal Med [facility] [address] [place] [address] 1 03/07/2023 14:48:19 03/07/2023 16:10:53 Pre-surgery evaluation 752901945 Z01.818 Essential hypertension 07221555 I10 Type 2 alok betes mellitus without complication 319818575 E11.9 Health Concerns Section Related Observation LastModified by Organization Detai ls LastModified Time None Recorded Concern Status LastModified by Organization Details LastModified Time None Recorded Advance Directives Directive N: Payers Encounter Date Sequence Insurance Name Policy Number Policy Gregory Covered Member ID Gregory Member ID Guarantor Name 07/19/2022 1 [employer] [place] (MEDICARE REPLACEMENT HMO) [id number] Paula S Usrey [id number] Paula S Usrey 07/19/2022 2 [place] [facility] [place] [facility] Paula S Usrey [id number] Paula S Usrey 09/21/2022 1 [employer] [place]MEDICARE [place]PLACEMENT HMO) [id number] Paula S Usrey [id number] Paula S Usrey 09/21/2022 2 [place] [facility] [place] [facility] Paula S Usrey [id number] Paula S Usrey 11/30/2022 1 [employer] [place]MEDIC[place]ACEMENT [place]) [id number] Paula S Usrey [id number] Paula S Usrey 11/30/2022 2 [place] [facility] [place] [facility] Paula S Usrey [id number] Paula S Usrey 02/01/2023 1 [employer] [place]MEDICARE [place]PLACEMENT HMO) [id number] Paula S Usrey [id number] Paula S Usrey 02/01/2023 2 [place] [facility] [place] [facility] Paula S Usrey [id number] Paula S Usrey 03/07/2023 1 [employer] [place]MEDIC[place]ACEMENT H[place]) [id number] Paula S Usrey [id number] Paula S Usrey 03/07/2023 2 [place] [facility] [place] [facility] Paula S Usrey [id number] Paula S Usrey Notes Date Note Type Note Provider Name and Address Organization Details Recorded Time 07/19/2022 text/html 07/02/22Patient presents to the office today with complaints of lower back pain that started about 1 week ago. She had urine testing with her primary care doctor that came back negative for urinary tract infection. She reports associated intermittent dysuria. She states that flank pain is bilateral will occasionally radiate to both of her sides. She denies any aggravating or alleviating factors. Of note, she also reports that she has had symptoms of urinary urgency, frequency, and urge incontinence that was present prior to lower back pain starting. Negative straight leg raise test. 3Patient returns to the office for follow-up after MARY. She has bilateral simple renal cysts which require no follow-up. She has moderate left hydroureter no overt stone seen. She states that she has noticed more left abdominal/flank pain. She denies any gross hematuria. Urine cytology was negative. RUSIMPRESSION:1. Moderate left hydroureter, etiology indeterminate. A renal CT and orretrograde urogram may prove beneficial..2. Bilateral simple renal cysts. Jean Claude Garcia NP [address], [place], [address], [employer] 07/19/2022 13:11:51 09/21/2022 text/html Hypertension no headache or dizziness. Gets hypoglycemic sometimes after her chemo GERD is been doing fine overall she seems to be stable she had 1 episode of hypoglycemia that necessitated an ER visit Agustin Flor MD [address], [place], [address], [employer] 09/21/2022 22:52:34 11/30/2022 text/html cancer. Chemo. Bilateral footdrop. Going through therapy. Blood sugars have been okay. Agustin Flor MD [address], [place], [address], [employer] 11/30/2022 22:37:02 02/01/2023 text/html And problems wit h her feetNeuropathy badSpecialist center to OrthoWill need foot care because of her diabetes as well Agustin Flor MD [address] [place] [address], [place], [address], [employer] 02/02/2023 21:21:32 03/07/2023 text/html He is to have scruggs rgery on feetHypertension no chest pain or shortness of breath but she does not ambulateType 2 diabetes needs an A1c no polyphagia polydipsiaCAD with stent no chest painCOPD no problems breathing at this timeB-cell lymphoma treated at [facility] Agustin Flor MD [address], [place], [address], [employer] 03/28/2023 18:10:42 OBGyn Episode No OBEpisode recorded.
--- OUTSIDE RECORDS SUMMARY | 2024-05-14 17:32 | XMS_ITS | Encounter Summary ---
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 Not very hard 11/20/2022 [facility] [place] [facility] - Occupational Stress [...] place to sleep or slept in a usp (including now)? No 11/20/2022 Sex and Gender Information Value Date Recorded Sex Assigned at Not on file Gender Identity Female 08/19/2023 1:35 PM CDT Sexual Orientation Not on file documented as of this encounter Functional Status Functional Status Response Date of Assess ment Is person deaf or have serious hearing difficult y? Yes 10/27/2022 Is person blind or have serious difficulty seein g? No 10/27/2022 Does person have serious dif ficulty walking/climbing stairs? Yes 10/27/2022 Does person have difficulty dressing/bathing? Ye s 10/27/2022 Does person have difficulty doing errands alone? Yes 10/27/2022 Cognitive Status Response Date of Assessm ent Does person have difficulty concentrating/remembering/making decisions? 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
--- OUTSIDE RECORDS SUMMARY | 2024-05-14 17:32 | XMS_ITS | Clinical Summary ---
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 0 Active metoclopramide (REGLAN) 10 MG Tablet TAKE 1 TABLET BY MOUTH TWICE DAILY DIRECTED 3 Active gabapentin (NEURONTIN) 600 MG Tablet TAKE 1 TABLET BY MOUTH THREE TIMES DAILY DIRECTED 3 Active albuterol 108 (90 Base) MCG/ACT Aerosol Solution INHALE 1 PUFF BY MOUTH EVERY 4 HOURS NEEDED 3 Active Trelegy Ellipta 100-62.5-25 MCG/ACT AEROSOL POWDER, BREATH ACTIVATED 3 Active Levemir 100 UNIT/ML Solution ADMINISTER 20 UNITS UNDER THE SKIN EVERY DAY DIRECTED. DISCARD VIAL 42 DAYS AFTER OPENING 3 Active amLODIPine (NORVASC) 10 MG Tablet 5 mg. 3 Active metoprolol tartrate (LOPRESSOR) 25 MG Tablet Take 25 mg by mouth 2 times daily. 3 Active enalapril (VASOTEC) 5 MG Tablet Take 5 mg by mouth 2 times daily. 3 Active hydrOXYzine (VISTARIL) 25 MG Capsule TAKE 1 CAPSULE BY MOUTH EVERY DAY IN THE MORNING 3 Active PARoxetine (PAXIL) 40 MG Tablet TAKE 1 TABLET BY MOUTH EVERY DAY AT BEDTIME 3 Active ziprasidone (GEODON) 80 MG Capsule TAKE 2 CAPSULES BY MOUTH EVERY DAY WITH A MEAL. 3 Active insulin 70-30, isophane and regular, (NovoLIN 70/30) (70-30) 100 UNIT/ML Suspension 10 Units by Subcutaneous route 2 times daily (before meals). Active Active Problems Problem Noted Date Diagnosed Date Lymphoma malignant, large cell 07/13/2022 History of CAD (coronary artery disease) 023 Mild cardiomegaly 07/13/2022 Other malignant immunoproliferative diseases Encounter for screening for other viral diseases 07/13/2022 Night sweats 07/13/2022 History of alcohol abuse 07/13/2022 Family History Medical History Relation Name Comments Cancer Father Heart Disease Mother Hypertension Mother Relation Name Status Comments Father Mother Social History Tobacco Use Types Packs/Day Years Used Date Smoking Tobacco: Former Cigarettes 1.5 35 Smokeless Tobacco: Never Tobacco Cessation:Counseling Given: Not Answered Alcohol Use Standard Drinks/Week Comments Yes 0 (1 standard drink = 0.6 oz pur e alcohol) daily Comments Unknown Sex and Gender Information Value Date Recorded Sex Assigned at Not on file Legal Sex Female 3:53 PM CDT Gender Identity Not on file Sexual Orientation Not on file Last Filed Vital Signs Vital Sign Reading Time Taken Comments Blood Pressure 140/90 07/13/2022 10:55 AM CDT Pulse 81 07/13/2022 10:55 AM CDT Temperature 36.5 C (97.7 F) 07/13/2022 10:55 AM CDT Respiratory Rate 17 07/13/2022 10:5 5 AM CDT Oxygen Saturation 90% 07/13/2022 10: 55 AM CDT Inhaled Oxygen Concentration - - Weight 77.5 kg (170 lb 12.8 oz) 023 10:55 AM CDT Height 162.6 cm (5' 4 ) 07/13/2022 10:5 5 AM CDT Body Mass Index 29.32 07/13/2022 10:55 AM CDT Plan of Treatment Health Maintenance Due Date Last Done Comments DEXA Bone Density 1958 TdaP Immunization 1958 Zoster Immunization (1 of 2) 1977 Colonoscopy 2003 Colorectal Cancer Screening 2003 Cologuard 2008 Immunochemical Fecal Occult Blood 2008 Mammogram 2008 Respiratory Syncytial Virus (RSV) Immunization (Adult) (1 - Risk 60-74 years 1-dose series) 2018 Influenza Immunization (#1) 11/27/202312/27, 01/30/2021, 01/25/2021, Additional history exists SARS-COV-2 Immunization ( season) 2023 01/21/2022, 01/25/2021, 12/28/2020, Additional history exists Pneumococcal Immunization (50+ years) Completed 01/21/2022, 12/26/2014 Pneumococcal Immunization Combined Discontinued 01/21/2022, 12/26/2014 Hepatitis C Virus (HCV) Screening Completed 07/16/2022, 07/13/2022 Hepatitis B Immunization Aged Out No longer eligible based on patient's age to complete this topic Meningococcal Immunization (ACWY) Aged Out No longer eligible based on patient's age to complete this topic Rotavirus Immunization Aged Out No lo nger eligible based on patient's age to complete this topic Procedures Procedure Name Priority Date/Time Associated Diagnosis Comments HEPATITIS C ANTIBODY Routine 07/13/2022 1:29 PM CDT Lymphoma malignant, large cell (HCC) Mild cardiomegaly History of CAD (coronary artery disease) from Last 3 Months or Most Recently Relevant to Health Maintenance Results * HEPATITIS C ANTIBODY (07/13/2022 1:29 PM CDT) hepatitis C antibody 0.09 <1 S/CO [facility] ARCH [id number] B 07/13/2022 9:22 PM CDT [facility] Comment: Signal/Cutoff ratio < 0.79 is Nondetected Signal/Cutoff ratio 0.80-0.99 is Grayzone Signal/Cutoff ratio > 0.99 is Detected Supplemental assays are recommended if signal/cutoff ratio is >/=1.00. Signal/cutoff ratio result >/= 5.00 is 97% predictive of positivity for recombinant immunoblot assay (RIBA) and will be reported to the [place] Department of Public Health as required. 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
--- OUTSIDE RECORDS SUMMARY | 2024-05-14 17:32 | XMS_ITS | Referral Summary ---
Author Organization [facility] Address [address] [place] [address] Care Team Providers Care Director Digital Advertising Name Role Phone Agustin Flor MD Primary Care Provider [phone] Shreyas Phillips MD Unavailable Bebe Hernandez-C Unavailable [phone] Nanda Rausch RN Unavailable Unavailable Source Comments [facility],non-owned Affiliates and Associated Physician Practices is amultiple site organization consisting of ambulatory clinics and hospital sitesin [place], [place], [place] and [place]. This disclosure is being madepursuant to the Care Everywhere program and may not contain all information available regarding this patient. Last updated 17.[facility] Encounters Date Type Department Care Team Description 04/26/2024 Travel 04/26/2024 6:01 AM CLASSIFICATION AND TREATMENT DIRECTOR - 04/26/2024 9:05 AM CLASSIFICATION AND TREATMENT DIRECTOR Hospital Encounter [facility] KATHERINE OP [address] [place] [address] Shreyas Phillips MD [facility] Discharge Disposition: Home or Self Care 03/22/2024 Orders Only [facility] BMT CLINIC [address] [place] [address] Nanda Rausch, RN B-cell lymphoma, unspecified B-cell lymphoma type, unspecified body region (HCC) 03/19/2024 Orders Only [facility] BMT CLINIC [address] [place], [place] [phone] Nanda Rausch, RN B-cell lymphoma, unspecified B-cell lymphoma type, unspecified body region (HCC) 03/16/2024 Travel 03/16/2024 2:20 PM CLASSIFICATION AND TREATMENT DIRECTOR - 03/16/2024 11:59 PM CLASSIFICATION AND TREATMENT DIRECTOR Hospital Encounter 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) 03/10/[address] [address] Shreyas Phillips MD MEDICATION REFILL 03/08/2024 Telephone [facility] [address] [place] [phone] Sorin Bowden APRN-APPLIQUER ZIGZAG LABS ONLY 03/01/2024 Refill [facility] CL[facility]IC [address] [place] [phone] Shreyas Phillips MD MEDICATION REFILL 02/15/2024 3:02 PM CLASSIFICATION AND TREATMENT DIRECTOR - 02/15/2024 11:59 PM CLASSIFICATION AND TREATMENT DIRECTOR Hospital Encounter [facility] LAB OP DRAW STATION [address] [place] [address] Discharge Disposition: Home or Self Care 02/15/2024 Travel 02/15/2024 10:30 AM CLASSIFICATION AND TREATMENT DIRECTOR Procedure visit [facility] [address] [place] [phone] Sorin Bowden APRN-APPLIQUER ZIGZAG Thyroid nodule ; H/O tobacco use, presenting hazards to health from Last 3 Months Allergies Active Allergy Reactions Criticality Noted Date Comments Aspirin Swelling 07/14/2022 Pain in the chest, eye red and swollen Cefdinir Itching 06/03/2023 Chlorthalidone Urticaria Medium 07/14/2022 Makes her itch Clonazepam Unknown 07/14/2022 Jerk in the leg Hydrochlorothiazide Itching 12/15/2022 Severe itching Medications * Be aware that medications may not be up to date on this document. Alwaysverify current medications with the patient. Medication Sig Dispensed Refills Start Date End Date Status Insulin Pen Needle 31G X 6 MM MISCIndications:Ty pe 2 diabetes mellitus with diabetic nephropathy, unspecified whether alloy weigher insulin use (HCC) Use 1 Needle as directed 100 Each 11 3 Active vitamin D3 (Cholecalciferol) 25 MCG (1000 UNITS) tabletIndications: Vitamin D Deficiency Take 2 (two) tablets by mouth once daily Reasons: Vitamin D Deficiency 3 Active thiamine (Vitamin B-1) 100 MG tablet Take 1 (one) tablet by mouth once daily 0 3 Active PARoxetine (Paxil) 40 MG tabletIndications: Generalized Anxiety Disorder,Major Depressive Disorder Take 1 (one) tablet by mouth once daily for 30 days Reasons: Generalized Anxiety Disorder, Major Depressive Disorder 30 tablet 3 Active insulin glargine (Lantus/Semglee) 100 units/mL pen Inject 12 (twelve) Units subcutaneously at bedtime for 30 days 3.6 mL 3 Active Additional Information Patient taking differently: 10 UnitsSubcutaneous AT BEDTIME, Reported on 01/28/2023 insulin aspart (NovoLOG FLEXPEN) pen Inject 5 (five) Units subcutaneously 3 times daily before meals for 30 days 4.5 mL 3 Active hydrOXYzine pamoate (Vistaril) 25 MG capsule TAKE 1 CAPSULE BY MOUTH EVERY DAY IN THE MORNING 3 Active ziprasidone (Geodon) 80 MG capsule Take 1 (one) capsule by mouth at bedtime Hold while on levaquin Active albuterol HFA (Proventil; Ventolin; Proair) 108 (90 Base) MCG/ACT inhaler 3 Active Trelegy Ellipta 100-62.5-25 MCG/ACT Inhale 1 (one) puff by mouth once daily 3 Active B-D UF III MINI PEN NEEDLES 31G X 5 MM needle DIRECTED TO INJECT INSULIN FOUR TIMES DAILY 3 Active Lancets (ONETOUCH DELICA PLUS 33G EXTRA FINE LANCET) TEST TWICE DAILY 3 Active OneTouch Ultra test strip TEST BLOOD SUGAR FOUR TIMES DAILY 3 Active famotidine (Pepcid) 20 MG tablet Take 0.5 (one-half) tablet by mouth once daily as needed for Heartburn Active insulin aspart (NovoLOG) pen Inject 5 (five) Units subcutaneously 3 times daily before meals Active insulin glargine (Lantus/Semglee) 100 units/mL pen Inject 12 (twelve) Units subcutaneously at bedtime Active PARoxetine (Paxil) 40 MG tablet Take by mouth once daily Active pantoprazole EC (Protonix) 20 MG tablet Take 2 (two) tablets by mouth once daily 4 Active apixaban (Eliquis) 5 MG tablet Take 1 (one) tablet by mouth 2 times daily Active terbinafine (LamISIL) 250 MG tablet Take 1 (one) tablet by mouth once daily Active senna (Senokot) 8.6 MG tablet Take by mouth once daily Active Docusate Calcium (STOOL SOFTENER PO) Take by mouth once daily Active Calcium Carbonate (CALCIUM 500 PO) Take by mouth once daily Active Multiple Vitamins-Minerals (Hair Skin and Nails Formula) TABS Take by mouth once daily Active POTASSIUM PO Take 1 tablet by mouth as directed Active doxycycline hyclate (Vibramycin) 100 MG capsule Take 1 (one) capsule by mouth every 12 hours 4 Active amLODIPine (Norvasc) 10 MG tablet Take 1 (one) tablet by mouth once daily Active estradiol (Estrace) 0.1 MG/GM vaginal cream Insert 1 g into the vagina at bedtime 4 Active atorvastatin (Lipitor) 40 MG tabletIndications: Coronary artery disease involving elim ira heart without angina pectoris, unspecified vessel or lesion type,Hyperlipidemi a, unspecified hyperlipidemia type Take 1 (one) tablet by mouth at bedtime 90 tablet 2 4 Active gabapentin (Neurontin) 300 MG capsuleIndications :Drug-induced polyneuropathy (HCC),Foot drop, bilateral Take 1 (one) capsule by mouth 3 times daily 90 capsule 1 4 Active Niacin (TRUE VITAMIN B3 PO) Take 2 tablets by mouth as directed 025 Discontin ued(List Clean-Up) Active Problems Problem Noted Date Diagnosed Date [...] artery disease) 03/28/2018 Overview (10/14/2022): s/p stents Resolved Problems Problem Noted Date Diagnosed Date Resolved Date Altered mental status, unspe cified altered mental status type 11/18/2022 11/21/2022 Hodgkin lymphoma 07/15/2022 07/16/2022 History of CAD (coronary artery disease) 07/13/2022 09/03/2022 Chronic obstructive pulmonary disease 11/09/2019 09/03/2022 Immunizations Name Administration Dates Next Due COVID PFIZER BIVALENT 12Y+ 30mcg/0.3ML 01/21/2022 Covid Pfizer primary monoval ent 12+ yr 0.3mL Purple cap 01/21/2022,12/28/2020 FLU VACCINE QUAD IIV4 SPLIT 0.25 ML IM 01/25/2020,01/17/2019 INFLUENZA [id number], HISTORIC VACCINE 01/21/2022 INFLUENZA VACCINE 12/26/2016,03/28/2014 INFLUENZA VACCINE, CELL CULT URE, QUADR. (FLUCELVAX QUADRIVALENT; 6MO+) (CCIIV4) 01/21/2022,01/20/2017 INFLUENZA VACCINE, QUADR. (A FLURIA, FLUZONE QUADRIVALENT; 6MO+) (IIV4) 01/01/2019,02/10/2018,12/08/2015 INFLUENZA VACCINE, QUADR. (F LUZONE; FLULAVAL; FLUARIX; AFLURIA QUADRIVALENT; 6MO+), 0.5 ML (IIV4) 02/09/2023,01/30/2021,01/25/2021,2019 INFLUENZA VACCINE, TRIV. (FL UZONE; FLULAVAL; FLUARIX; AFLURIA TRIVALENT; 6MO+), 0.5 ML (IIV3) 12/26/2014 PNEUMOCOCCAL PCV20 CONJ VAC IM 01/21/2022 Pneumococcal Pcv13 Conj 12/26/2014 Social History Tobacco Use Types Packs/Day Years [...] care, and heating? Not very hard 11/20/2022 [facility] - [...] place to sleep or slept in a assisted (including now)? No 11/20/2022 Sex and Gender Information Value Date Recorded Sex Assigned at Not on file Gender Identity Female 08/19/2023 1:35 PM CDT Sexual Orientation Not on file Last Filed Vital Signs Vital Sign Reading Time Taken Comments Blood Pressure 140/83 04/26/2024 8:50 AM CLASSIFICATION AND TREATMENT DIRECTOR Pulse 68 04/26/2024 8:50 AM CLASSIFICATION AND TREATMENT DIRECTOR Temperature 36.6 C (97.8 F) 04/26/2024 8:31 AM CLASSIFICATION AND TREATMENT DIRECTOR Respiratory Rate 12 04/26/2024 8:50 AM CLASSIFICATION AND TREATMENT DIRECTOR Oxygen Saturation 94% 04/26/2024 8:50 AM CLASSIFICATION AND TREATMENT DIRECTOR Inhaled Oxygen Concentration - - Weight 62.6 kg (138 lb) 04/26/2024 6:18 AM CLASSIFICATION AND TREATMENT DIRECTOR Height 163.8 cm (5' 4.5 ) 04/26/2024 6:18 AM CLASSIFICATION AND TREATMENT DIRECTOR Body Mass Index 23.32 04/26/2024 6:18 AM CLASSIFICATION AND TREATMENT DIRECTOR Functional Status Functional Status Response Date of Assess ment Is person deaf or have serious hearing difficult y? Yes 04/26/2024 Is person blind or have serious difficulty seein g? No 04/26/2024 Does person have serious dif ficulty walking/climbing stairs? Yes 04/26/2024 Does person have difficulty dressing/bathing? Ye s 04/26/2024 Does person have difficulty doing errands alone? Yes 04/26/2024 Cognitive Status Response Date of Assessm ent Does person have difficulty concentrating/remembering/making decisions? No 04/26/2024 Plan of Treatment Upcoming Encounters Date Type Department Care Team (Late st Contact Info) Description 05/28/2024 11:00 AM CLASSIFICATION AND TREATMENT DIRECTOR Appointment [facility] CAT SCAN [address] [place] [phone] Shreyas Phillips MD [address] [place] [address] 06/15/2024 11:40 AM CDT Appointment [facility] BMT CLINIC [address] [place] [address] Shreyas Phillips MD [address] [place] [address] Medical Devices Implanted Type Area Drycleaner Device Identifier Shelf Expiration Date Model / Serial / Lot Port Implinfn Powerport Clrvu Argd Kika Implanted:Qty: 1 on 07/15/2022 at [facility] Right: Chest [employer] 11/26/2023 [id number] / / [id number] Description:RIJ by Milena Spivey inton Procedures Procedure Name Priority Date/Time Associated Diagnosis Comments IR CENTRAL LINE REMOVAL Routine 04/26/2024 8:32 AM CLASSIFICATION AND TREATMENT DIRECTOR B-cell lymphoma, unspecified B-cell lymphoma type, unspecified body region (HCC) GLUCOSE - POINT OF CARE Routine 04/26/2024 6:51 AM CLASSIFICATION AND TREATMENT DIRECTOR PT-INR 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) [place] FNA BX W US GDN 1ST LES Routine 02/15/2024 11:08 AM CLASSIFICATION AND TREATMENT DIRECTOR Thyroid nodule FINE NEEDLE ASPIRATION (STL) Routine 02/15/2024 10:48 AM CLASSIFICATION AND TREATMENT DIRECTOR Thyroid nodule PATHOLOGY/CYTOLOGY REPORT ORDER 02/15/2024 HEMOGLOBIN A1C Routine 02/03/2023 11:03 AM CLASSIFICATION AND TREATMENT DIRECTOR Bilateral foot pain HEPATITIS C RNA QUANTITATIVE STAT 07/16/2022 12:15 PM CDT Non-Hodgkin's lymphoma, unspecified body region, unspecified non-Hodgkin lymphoma type (HCC) High risk for chemotherapy-induced infectious complication from Last 3 Months or Most Recently Relevant to Health Maintenance Results * IR Central Line Removal (04/26/2024 8:32 AM CLASSIFICATION AND TREATMENT DIRECTOR) Anatomical Region Laterality Modality X-Ray Angiograph y 04/26/2024 3:21 PM CLASSIFICATION AND TREATMENT DIRECTOR Impressions 05/07/2024 8:15 AM CLASSIFICATION AND TREATMENT DIRECTOR Impression: Successful removal of a right internal jugular approach since lumen 8 Congolese chest port under fluoroscopic guidance. Note: Keep the dressing clean and dry for 5 days. I, BIJAL Elizalde, was present and performed/supervised the entire procedure. > Dictated by Aguila Pritchett (Director Records Management) 04/26/2024 3:21 PM Valeria Lanier MD have personally reviewed and interpreted this examination/study. > Interpreting Provider: Valeria Hernandez MD on 05/07/2024 8:15 AM Narrative 05/07/2024 8:15 AM CLASSIFICATION AND TREATMENT DIRECTOR PROCEDURE: IR CENTRAL LINE REMOVAL DATE/TIME OF EXAM: 04/26/2024 8:33 AM CLINICAL INFORMATION: History: This is a 64-year-old -Thai female with a history of lymphoma who previously had a chest port placed for chemotherapy administration. She has completed chemotherapy and remains remission and therefore presents for chest port removal Operators: BIJAL Cartagena Anesthesia: 1.Local anesthesia - 10 mL of 1% Lidocaine 2.Intravenous Anxiolysis- Versed 1 mg and Fentanyl 50 mcg Procedure: Removal of a right internal jugular approach 1 lumen 8 Congolese chest port under fluoroscopic guidance. Fluoroscopic time: 0.1 minutes Procedure details: The procedure, risks, and possible complications were explained to the patient in detail, and informed consent was obtained. The patient was placed supine on the angiography table. The right neck and upper chest were prepped and draped in the usual sterile manner. A specialty plant supervisor radiograph of the chest was obtained, which [...] CLINICAL INFORMATION: History: This is a 64-year-old -Thai female with a history of lymphoma who previously had a chest port placed for chemotherapy administration. She has completed chemotherapy andremains remission and therefore presents for chest port removal Operators: BIJAL Cartagena Anesthesia: 1.Local anesthesia - 10 mL of 1% Lidocaine 2.Intravenous Anxiolysis- Versed 1 mg and Fentanyl 50 mcg Procedure: Removal of a right internal jugular approach 1 lumen 8 Congolese chest port under fluoroscopic guidance. Fluoroscopic time: 0.1 minutes Procedure details: The procedure, risks, and possible complications were explained to the patient in detail, and informed consent was obtained. The patient was placed supine on the angiography table. The right neck and upper chestwere prepped and draped in the usual sterile manner. A specialty plant supervisor radiograph ofthe chest was obtained, which showed [...] the procedure well and [facility] [place]. There were no immediate complicationsassociated with the procedure. Impression: Successful removal of a right internal jugular approachsince lumen 8 Congolese chest port under fluoroscopic guidance. Note: Keep the dressing clean and dry for 5 days. IDr. Francisca PA, was present and performed/supervised the entire procedure. > Dictated by Aguila Pritchett (Director Records Management) 04/26/2024 3:21 PM IValeria MD have personally reviewed and interpreted this examination/study. > Interpreting Provider: Valeria Hernandez MD on 05/07/2024 8:15 AM Shreyas Phillips MD IR ORDERABLES * GLUCOSE - POINT OF CARE (04/26/2024 6:51 AM CLASSIFICATION AND TREATMENT DIRECTOR) Glucose WB/POC 92 70 - 99 mg/dL 04/26/2024 6:52 AM CLASSIFICATION AND TREATMENT DIRECTOR [facility] LABORATORY [facility] Specimen Type Venous 04/26/2024 6:52 AM CLASSIFICATION AND TREATMENT DIRECTOR [facility] Blood BLOOD SPECIMEN / Unknown 04/26/2024 6:51 AM CLASSIFICATION AND TREATMENT DIRECTOR 04/26/2024 6:52 AM CLASSIFICATION AND TREATMENT DIRECTOR Shreyas Phillips MD LAB - POINT OF CARE ORDERABLES [address] [address], [place] [phone] * PT-INR [facility] (04/26/2024 6:47 AM CLASSIFICATION AND TREATMENT DIRECTOR) PT 13.2 12.1 - 14.8 Seconds 04/26/2024 7:20 AM [facility] INR 1.0 See Comment 04/26/2024 7:20 AM [facility] Comment:The suggested therap eutic range for standard coumadin (warfarin) therapy is an INR of 2.0-3.0. For high-risk patients (Mechanical Mitral Valve Prosthesis, etc.), the suggested prophylactic therapeutic range is an INR of 2.5-3.5. Blood BLOOD SPECIMEN / Unknown Venipuncture / Unknown 04/26/2024 6:47 AM CLASSIFICATION AND TREATMENT DIRECTOR 04/26/2024 6:51 AM CLASSIFICATION AND TREATMENT DIRECTOR Tyson Sandhu MD LAB - COAGULATION OR DERABLES Performing Organization Address City/State/[facility] Co de Phone Number [facility] [address] [place], [place] [address], [place] [phone] * (ABNORMAL) CBC W AUTO DIFFERENTIAL (03/16/2024 2:26 PM CLASSIFICATION AND TREATMENT DIRECTOR) WBC 5.4 4.0 - 10.7 x10E9/L 03/17/2024 2:57 AM [facility] RBC Count 4.04 3.90 - 5.20 x10E12/L 03/17/2024 2:57 AM [facility] Hemoglobin 11.4(L) 11.9 - 15.8 g/dL 03/17/2024 2:57 AM [facility] Hematocrit 37.2 34.8 - 46.1 % 03/17/2024 2:57 AM [facility] MCV 92.1 80.0 - 98.0 fL 03/17/2024 2:57 AM [facility] MCH 28.2 26.7 - 33.6 pg 03/17/2024 2:57 AM [facility] MCHC 30.6(L) 31.7 - 36.3 g/dL 03/17/2024 2:57 AM [facility] RDW-CV 14.7 11.3 - 14.8 % 03/17/2024 2:57 AM [facility] Platelet Count 184 150 - 420 x10E9/L 03/17/2024 2:57 AM [facility] MPV 9.5 7.8 - 11.4 fL 03/17/2024 2:57 AM [facility] Preliminary Absolute Neutrophil 3.75 1.60 - 7.50 x10E9/L 03/17/2024 2:57 AM [facility] Neutrophil % 69.9 41.0 - 74.0 % 03/17/2024 2:57 AM [facility] Lymphocyte % 18.4 17.0 - 47.0 % 03/17/2024 2:57 AM [facility] Monocyte % 8.9 3.0 - 11.0 % 03/17/2024 2:57 AM [facility] Eosinophil % 2.0 0.0 - 7.0 % 03/17/2024 2:57 AM [facility] Basophil % 0.4 0.0 - 1.6 % 03/17/2024 2:57 AM [facility] Immature Granulocytes % 0.4 0.0 - 1.0 % 03/17/2024 2:57 AM [facility] Neutrophil Absolute 3.75 1.60 - 7.50 x10E9/L 03/17/2024 2:57 AM [facility] Lymphocyte Absolute 0.99(L) 1.00 - 4.40 x10E9/L 03/17/2024 2:57 AM [facility] Monocyte Absolute 0.48 0.15 - 1.00 x10E9/L 03/17/2024 2:57 AM [facility] Eosinophil Absolute 0.11 0.00 - 0.60 x10E9/L 03/17/2024 2:57 AM [facility] Basophil Absolute 0.02 0.00 - 0.13 x10E9/L 03/17/2024 2:57 AM [facility] Blood BLOOD SPECIMEN / Unknown Venipuncture / Unknown 03/16/2024 2:26 PM CLASSIFICATION AND TREATMENT DIRECTOR 03/17/2024 2:52 AM [facility] Shreyas Phillips MD LAB - HEMATOLOGY ORD ERABLES [facility] [address] [place] [address], [place] [phone] * (ABNORMAL) COMPREHENSIVE METABOLIC PANEL (03/16/2024 2:26 PM [facility]) BUN 18 7 - 26 mg/dL 03/17/2024 3:20 AM [facility] Creatinine 0.86 0.56 - 0.96 mg/dL 03/17/2024 3:20 AM [facility] Sodium 141 136 - 145 mmol/L 03/17/2024 3:20 AM [facility] Potassium 3.9 3.5 - 4.5 mmol/L 03/17/2024 3:20 AM [facility] Chloride 108(H) 98 - 107 mmol/L 03/17/2024 3:20 AM [facility] CO2 26 22 - 29 mmol/L 03/17/2024 3:20 AM [facility] Glucose 97 70 - 99 mg/dL 03/17/2024 3:20 AM [facility] Calcium 9.6 8.4 - 10.2 mg/dL 03/17/2024 3:20 AM [facility] Protein Total 6.6 6.0 - 8.3 g/dL 03/17/2024 3:20 AM [facility] Albumin 4.3 3.4 - 5.0 g/dL 03/17/2024 3:20 AM [facility] Bilirubin Total 0.2 0.2 - 1.2 mg/dL 03/17/2024 3:20 AM [facility] Alkaline Phosphatase 57 40 - 150 U/L 03/17/2024 3:20 AM [facility] ALT 33 5 - 55 U/L 03/17/2024 3:20 AM [facility] AST 21 5 - 34 U/L 03/17/2024 3:20 AM [facility] Anion Gap 7 6 - 16 03/17/2024 3:20 AM [facility] BUN/Creatinine Ratio 21 7 - 23 03/17/2024 3:20 AM [facility] Osmolality Calculated 294 275 - 295 mOsm/kg 03/17/2024 3:20 AM [facility] Albumin/Globulin Ratio 1.9 1.1 - 2.3 03/17/2024 3:20 AM [facility] eGFR by CKD-EPI 75(L) >=90 mL/min/1.7 3 m2 03/17/2024 3:20 AM [facility] Blood BLOOD SPECIMEN / Unknown Venipuncture / Unknown 03/16/2024 2:26 PM CLASSIFICATION AND TREATMENT DIRECTOR 03/17/2024 2:52 AM CLASSIFICATION AND TREATMENT DIRECTOR Shreyas Phillips MD LAB - CHEMISTRY SILVINO LENZ Performing Organization Address City/[facility]/ZIP Co de Phone Number [address] [address], [place] [phone] * LDH BLOOD (03/16/2024 2:26 PM CLASSIFICATION AND TREATMENT DIRECTOR) LDH Total 196 125 - 243 Units/L 03/17/2024 3:20 AM [facility] Blood BLOOD SPECIMEN / Unknown Venipuncture / Unknown 03/16/2024 2:26 PM CLASSIFICATION AND TREATMENT DIRECTOR 03/17/2024 2:52 AM CLASSIFICATION AND TREATMENT DIRECTOR Shreyas Phillips MD LAB - CHEMISTRY SILVINO LENZ Performing Organization Address City/[facility]/ZIP Co de Phone Number [address] [address], [place] [phone] * [place] FNA BX W US GDN 1ST LES (02/15/2024 11:08 AM CLASSIFICATION AND TREATMENT DIRECTOR) Narrative Sorin Bowden APRN-CNP - 02/15/2024 11:08 AM CLASSIFICATION AND TREATMENT DIRECTOR Sorin Bowden APRN-CNP 02/15/2024 11:10 AM Procedure [...] the site. Start: 1048 End: 1054 Sorin Bowden COMMUNITY HEALTH COORDINATOR-APPLIQUER ZIGZAG PROCEDURE/ MINOR SURGICAL ORDERABLES * FINE NEEDLE ASPIRATION (STL) (02/15/2024 10:48 AM CLASSIFICATION AND TREATMENT DIRECTOR) Case Report Medical Cytology Report Case: [id number] Authorizing Provider: Sorin Bowden, Collected: 02/15/2024 10:48 AM COMMUNITY HEALTH COORDINATOR-APPLIQUER ZIGZAG Ordering Location: [facility] - Received: 02/16/2024 07:20 AM ENT Pathologist: Gerald Carlson MD Specimen: Neck Mass, Right TR4 thyroid nodule 03/05/2024 11:13 AM [facility] Specimen Adequacy Adequate cellularity for evaluation. 03/05/2024 11:13 AM [facility] Final Diagnosis Thyroid, right nodule, US-FNA: - Atypia of undetermined significance (TBSRTC category III), nuclear atypia and rare spindle cells 03/05/2024 11:13 AM [facility] Clinical History The patient is a 63 year old female with a TR4 thyroid nodule, s/p two prior FNAs (categories I and III). 03/05/2024 11:13 AM [facility] Gross Description 1 pap stained Thin Prep from 20cc of clear collection fluid 03/05/2024 11:13 AM [facility] Microscopic Description The aspirate shows a good amount of background colloid, as well as scattered macrofollicular bland epithelium. However there are also some small clusters of spindle cells. Comment: Molecular studies, and possibly a serum calcitonin is advised. 03/05/2024 11:13 AM [facility] Addendum 1 Specimen source is Right TR4 thyroid nodule. Neck Mass was entered originally as primary source, but is too general a description. 03/05/2024 11:13 AM [facility] Addendum electronically signed by Tra Cordero on 03/05/2024 at 11:13 AM Pathologist Location at [facility] 03/05/2024 11:13 AM [facility] [facility] Disclaimer The performance characteristics of all immunohistochemical and indirect immunofluorescence stains (if any) cited in this report were determined by the [facility] Laboratory of [facility]. Some of these tests rely on the use of analyte-specific reagents and are subject to specific labeling requirements by the [place] Food and Drug Administration. Such tests were developed by the [facility] of [facility] and have not been cleared or approved [...] the attending (teaching) pathologist. 03/05/2024 11:13 AM [facility] Embedded Images 03/05/2024 11:13 AM [facility] Pathology/Cytolo gy MASS OF NECK / Unknown Collection / Unknown 02/15/2024 10:48 AM CLASSIFICATION AND TREATMENT DIRECTOR 02/16/2024 7:20 AM CLASSIFICATION AND TREATMENT DIRECTOR Sorin Bowden COMMUNITY HEALTH COORDINATOR-[facility] - PATH OLOGY/CYTOLOGY ORDERABLES Performing Organization Address City/State/[facility] Co de Phone Number [facility] [address] [phone] * PATHOLOGY/CYTOLOGY REPORT ORDER (02/15/2024) 02/15/2024 Narrative 02/15/2024 Ordered by an unspecified provider. Scanned Document LAB - PATHOLOGY/CYTO LOGY ORDERABLES * HEMOGLOBIN A1C (02/03/2023 11:03 AM [facility]) Hemoglobin A1c 5.4 <=5.6 % 02/03/2023 3:39 PM [facility] Estimated Average Glucose 108 mg/dL 02/03/2023 3:39 PM [facility] Comment: HbA1c Interpretation: Normal : < 5.7% Pre-diabetes: 5.7-6.4% Diabetes: Equal to or greater than 6.5% Test results diagnostic of diabetes should be repeated for confirmation. Treatment target values recommended by ADA and other clinical organizations should be used to evaluate metabolic control in patients. Reference: [place] [employer], Standards of Care in Diabetes -2020 In patients 70 years and older consider HbA1c target range of 7.0-7.5% (Reference: Vishal Davis et al. MERLENEDA. 2012) The Sebia assay for the measurement of HbA1c is a National Glycohemoglobin Standardization Program (NGSP) certified method. Blood BLOOD SPECIMEN / Unknown Lab Venipuncture / Unknown 02/03/2023 11:03 AM CLASSIFICATION AND TREATMENT DIRECTOR 02/03/2023 11:29 AM CLASSIFICATION AND TREATMENT DIRECTOR Mohini Sky MD LAB - CHEMISTRY [facility] Organization Address City/State/ZIP Co de Phone Number [address] [address], [place] [phone] * HEPATITIS C RNA QUANTITATIVE (07/16/2022 12:15 PM CDT) [facility] Hepatitis C RNA PCR, Interp Not detected Not detected 07/19/2022 1:08 PM CDT [facility] Blood BLOOD SPECIMEN / Unknown Lab Venipuncture / Unknown 07/16/2022 12:15 PM CDT 07/16/2022 12:25 PM CDT Narrative [facility] - 07/19/2022 1:08 PM CDT The Hepatitis C viral (HCV) RNA analysis utilized a serum sample, real-time reverse greenhouse worker PCR, and is reported as Not Detected, [...] the isolation of HCV RNA with reverse greenhouse worker of genomic HCV RNA followed by real-time PCR in the presence of an unrelated RNA internal control. The internal control ensures that RNA is isolated, and that no general significant inhibitors of the RT-PCR process are present. The analysis was performed using a [place] FDA approved test methodology. Shreyas Phillips MD LAB - CHEMISTRY [facility] [address] [place] [address], [place] [phone] from Last 3 Months or Most Recently Relevant to Health Maintenance Advance Directives * Full Code (Latest Code Status on File) Date Activated Date Inactivated Comments 11/18/2022 6:15 PM 11/22/2022 7:09 PM * Full Code Date Activated Date Inactivated Comments 11/12/2022 8:32 PM 11/17/2022 1:01 PM * Full Code Date Activated Date Inactivated Comments 10/27/2022 8:27 PM 11/12/2022 2:07 PM * Full Code Date Activated Date Inactivated Comments 10/22/2022 1:13 AM 10/27/2022 7:37 PM * Full Code Date Activated Date Inactivated Comments 10/14/2022 3:45 PM 10/19/2022 5:53 PM Care Teams Director Digital Advertising Relationship Specialty Start Date End Date Agustin Flor MD [address] [place] [address] PCP - General General Medicine 06/28/22 Shreyas Phillips MD [address] [place] [id number] Physician Hematology and Oncology 03/23/23 Bebe Hernandez, PA-C [address] [place] [address] Physician Cardiac Catheterization Technologist Physician Cardiac Catheterization Technologist 03/23/23 Nanda Rausch, RN Registered Nurse 03/23/23
--- OUTSIDE RECORDS SUMMARY | 2024-05-14 17:32 | XMS_ITS | Clinical Summary ---
Author Organization [facility] Address [address] [place] [address] Care Team Providers Care Cell Operator Name Role Phone Agustin Flor MD Primary Care Provider [phone] Shreyas Phillips MD Unavailable Bebe HernandezC Unavailable [phone] Nanda Rausch RN Unavailable Unavailable Source Comments [facility],non-owned Affiliates and Associated Physician Practices is amultiple site organization consisting of ambulatory clinics and hospital sitesin [place], [place], [place] and [place]. This disclosure is being madepursuant to the Care Everywhere program and may not contain all information available regarding this patient. 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 (HCC) Use 1 Needle as [...] 40 MG tabletIndications: Coronary artery disease involving [place] heart without angina pectoris, unspecified vessel or [...] Urinary retention 10/22/2022 Urinary incontinence, unspecified type 3 Weight loss, non-intentional 10/15/2022 Asthma 10/14/2022 Hyperglycemia, [...] 09/03/2022 Chronic obstructive pulmonary disease 11/09/2019 09/03/2022 Encounters Date Type Department Care Team Description 04/26/2024 6:01 AM GLOBAL COMPENSATION ANALYST - 04/26/2024 9:05 AM [facility] Hospital Encounter [facility] KATHERINE OP [address] [place] [address] Shreyas Phillips MD [facility] Discharge Disposition: Home or Self Care 04/26/2024 Travel 03/22/2024 Orders Only [facility] CL[facility]IC [address] [place] [address] Nanda Rausch, RN B-cell lymphoma, unspecified B-cell lymphoma type, unspecified body region (HCC) 03/19/2024 Orders Only [facility] [address] [place] [address] Nanda Rausch, RN B-cell lymphoma, unspecified B-cell lymphoma type, unspecified body region (HCC) 03/16/2024 2:20 PM GLOBAL COMPENSATION ANALYST - 03/16/2024 11:59 PM GLOBAL COMPENSATION ANALYST Hospital Encounter [facility] [address] [place] [address] Shreyas Phillips MD Discharge Disposition: Home or Self Care 03/16/2024 Travel 03/15/2024 Telephone [facility] [address] [place] [address] Emeli Forrester 03/15/2024 Orders Only [facility] [address] [place] [address] Shreyas Phillips MD 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 ([facility]) 03/10/2024 Refill [facility] [address] [place] [address] Shreyas Phillips MD MEDICATION REFILL 03/08/2024 Telephone [facility] - ENT [address] [place] [phone] Sorin Bowden FACETER-MANAGER ENVIRONMENTAL SERVICES LABS ONLY 03/01/2024 Refill [facility] CL[facility] [address] [place] [address] Shreyas Phillips MD MEDICATION REFILL 02/15/2024 3:02 PM GLOBAL COMPENSATION ANALYST - 02/15/2024 11:59 PM GLOBAL COMPENSATION ANALYST Hospital Encounter [facility] LAB OP DRAW STATION [address] [place] [address] Discharge Disposition: Home or Self Care 02/15/2024 10:30 AM GLOBAL COMPENSATION ANALYST Procedure visit [facility] - ENT [address] [place] [phone] Sorin Bowden, FACETER-MANAGER ENVIRONMENTAL SERVICES Thyroid nodule ; H/O tobacco use, presenting hazards to health 02/15/2024 Travel from Last 3 Months Immunizations Name Administration Dates Next Due COVID PFIZER BIVALENT 12Y+ 30mcg/0.3ML 01/21/2022 Covid Pfizer primary monoval ent 12+ yr 0.3mL Purple cap 01/21/2022,12/28/2020 FLU VACCINE QUAD IIV4 SPLIT 0.25 ML IM 01/25/2020,01/17/2019 INFLUENZA G6O1-14, HISTORIC VACCINE 01/21/2022 INFLUENZA VACCINE 12/26/2016,03/28/2014 INFLUENZA [...] VAC IM 01/21/2022 Pneumococcal Pcv13 Conj 12/26/2014 Family History Medical History Relation Name Comments Cancer Brother Diabetes; unknown type Brother Hearing Loss - Unspecified Brother Lung Disease Brother Cancer Father Anxiety Disorder Mother Depression Mother Hypertension Mother Cancer Sister Diabetes; unknown type Sister Hearing Loss - Unspecified Sister Hypertension Sister Lung Disease Sister Relation Name Status Comments Brother Father Mother Sister Social History Tobacco Use Types Packs/Day Years [...] care, and heating? Not very hard 11/20/2022 [facility] [place] [facility] Occupat ional Health - Occupational Stress [...] place to sleep or slept in a skilled nursing (including now)? No 11/20/2022 Sex and Gender Information Value Date Recorded Sex Assigned at Not on file Gender Identity Female 08/19/2023 1:35 PM CDT Sexual Orientation Not on file Last Filed Vital Signs Vital Sign Reading Time Taken Comments Blood Pressure 140/83 04/26/2024 8:50 AM GLOBAL COMPENSATION ANALYST Pulse 68 04/26/2024 8:50 AM GLOBAL COMPENSATION ANALYST Temperature 36.6 C (97.8 F) 04/26/2024 8:31 AM GLOBAL COMPENSATION ANALYST Respiratory Rate 12 04/26/2024 8:50 AM GLOBAL COMPENSATION ANALYST Oxygen Saturation 94% 04/26/2024 8:50 AM GLOBAL COMPENSATION ANALYST Inhaled Oxygen Concentration - - Weight 62.6 kg (138 lb) 04/26/2024 6:18 AM GLOBAL COMPENSATION ANALYST Height 163.8 cm (5' 4.5 ) 04/26/2024 6:18 AM GLOBAL COMPENSATION ANALYST Body Mass Index 23.32 04/26/2024 6:18 AM GLOBAL COMPENSATION ANALYST Plan of Treatment Upcoming Encounters Date Type Department Care Team (Late st Contact Info) Description 05/28/2024 11:00 AM GLOBAL COMPENSATION ANALYST Appointment [facility] CAT SCAN [address] [place] [address] Shreyas Phillips MD [address] [place] [address] 06/15/2024 11:40 AM CDT Appointment [facility] CL[facility] [address] [place] [address] Shreyas Phillips MD [address] [place] [address] Health Maintenance Due Date Last Done Comments BONE DENSITY TESTING 1960 COLOGUARD (AGES 45-75) - COLON CA SCREENING 1960 COLON MONITORING 1960 COLONOSCOPY - COLON CA SCREENING 1958 CT COLONOGRAPHY - COLON CA SCREENING 1960 Colorectal Cancer Screening 1960 FIT - COLON CA SCREENING 1958 FLEX SIG - COLON CA SCREENING 1960 MAMMOGRAM 1960 DTAP/TDAP/TD VACCINES (1 - Tdap) 1977 ZOSTER VACCINE (1 of 2) 2008 Respiratory Syncytial Virus (RSV) Vaccine Pt: or over 60 yrs (1 - Risk 60-74 years 1-dose series) 2018 DIABETES RETINOPATHY SCREENING 07/24/2022 DIABETES-FOOT EXAM WITH MONOFILAMENT 07/24/2022 DIABETES-HGB A1C 08/04/2023 02/03/2023, , 07/23/2022, Additional history exists COVID-19 VACCINE ( season) 2023 02/09/2023, 01/21/2022, 01/21/2022, Additional history exists INFLUENZA VACCINE (#1) 2023 , 01/21/2022, 01/21/2022, Additional history exists DEPRESSION SCREENING 03/28/2024 DIABETES - URINE PROTEIN SCREENING 03/28/2024 MEDICARE AWV CALENDAR YEAR 2024 DIABETES-SERUM CREATININE 03/16/20252023, 12/21/2023, 11/29/2023, Additional history exists PNEUMOCOCCAL VACCINE 50+ Completed 01/21/2022, 03/2014 HEPATITIS C SCREENING Completed 07/16/2022 HEPATITIS B VACCINE Aged Out No longe r eligible based on patient's age to complete this topic HIB VACCINE Aged Out No longer eligi ble based on patient's age to complete this topic HPV VACCINE Aged Out No longer eligi ble based on patient's age to complete this topic MENINGOCOCCAL (Group B) VACCINE Aged Out No longer eligible based on patient's age to complete this topic MENINGOCOCCAL VACCINE Aged Out No lopez mitchel eligible based on patient's age to complete this topic Medical Devices Implanted Type Area Knife Machine Operator Device Identifier Shelf Expiration Date Model / Serial / Lot Port Implinfn Powerport Clrvu Argd Kika Implanted:Qty: 1 on 07/15/2022 at [facility] Right: Chest Bard Peripheral Vascular 11/26/2023 [id number] / / [id number] Description:RIJ by Milena Spivey inton Procedures Procedure Name Priority Date/Time Associated Diagnosis Comments IR CENTRAL LINE REMOVAL Routine 04/26/2024 8:32 AM GLOBAL COMPENSATION ANALYST B-cell lymphoma, unspecified B-cell lymphoma type, unspecified body region (HCC) GLUCOSE - POINT OF CARE Routine 04/26/2024 6:51 AM GLOBAL COMPENSATION ANALYST PT-INR SLH Routine 04/26/2024 6:47 AM GLOBAL COMPENSATION ANALYST Preop testing LDH BLOOD STAT 03/16/2024 2:26 PM GLOBAL COMPENSATION ANALYST 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) CBC W AUTO DIFFERENTIAL STAT 03/16/2024 2:26 PM GLOBAL COMPENSATION ANALYST 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) COMPREHENSIVE METABOLIC PANEL STAT 03/16/2024 2:26 PM GLOBAL COMPENSATION ANALYST 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) KS FNA BX W US GDN 1ST LES Routine 02/15/2024 11:08 AM GLOBAL COMPENSATION ANALYST Thyroid nodule FINE NEEDLE ASPIRATION (STL) Routine 02/15/2024 10:48 AM GLOBAL COMPENSATION ANALYST Thyroid nodule PATHOLOGY/CYTOLOGY REPORT ORDER 02/15/2024 HEMOGLOBIN A1C Routine 02/03/2023 11:03 AM GLOBAL COMPENSATION ANALYST Bilateral foot pain HEPATITIS C RNA QUANTITATIVE STAT 07/16/2022 12:15 PM CDT Non-Hodgkin's lymphoma, unspecified body region, unspecified non-Hodgkin lymphoma type (HCC) High risk for chemotherapy-induced infectious complication from Last 3 Months or Most Recently Relevant to Health Maintenance Results * IR Central Line Removal (04/26/2024 8:32 AM GLOBAL COMPENSATION ANALYST) Anatomical Region Laterality Modality X-Ray Angiograph y 04/26/2024 3:21 PM GLOBAL COMPENSATION ANALYST Impressions 05/07/2024 8:15 AM GLOBAL COMPENSATION ANALYST Impression: Successful removal of a right internal jugular approach since lumen 8 Somali chest port under fluoroscopic guidance. Note: Keep the dressing clean and dry for 5 days. I, BIJAL Elizalde, was present and performed/supervised the entire procedure. > Dictated by Aguila Pritchett (Solution Designer) 04/26/2024 3:21 PM IValeria MD have personally reviewed and interpreted this examination/study. > Interpreting Provider: Valeria Hernandez MD on 05/07/2024 8:15 AM Narrative 05/07/2024 8:15 AM GLOBAL COMPENSATION ANALYST PROCEDURE: IR CENTRAL LINE REMOVAL DATE/TIME OF EXAM: 04/26/2024 8:33 AM CLINICAL INFORMATION: History: This is a 64-year-old -[place] female with a history of lymphoma who previously had a chest port placed for chemotherapy administration. She has completed chemotherapy and remains remission and therefore presents for chest port removal Operators: BIJAL Cartagena Anesthesia: 1.Local anesthesia - 10 mL of 1% Lidocaine 2.Intravenous Anxiolysis- Versed 1 mg and Fentanyl 50 mcg Procedure: Removal of a right internal jugular approach 1 lumen 8 Somali chest port under fluoroscopic guidance. Fluoroscopic time: 0.1 minutes Procedure details: The procedure, risks, and possible complications were explained to the patient in detail, and informed consent was obtained. The patient was placed supine on the angiography table. The right neck and upper chest were prepped and draped in the usual sterile manner. A merchant miller radiograph of the chest was obtained, which [...] CLINICAL INFORMATION: History: This is a 64-year-old -[place] female with a history of lymphoma who previously had a chest port placed for chemotherapy administration. She has completed chemotherapy andremains remission and therefore presents for chest port removal Operators: BIJAL Cartagena Anesthesia: 1.Local anesthesia - 10 mL of 1% Lidocaine 2.Intravenous Anxiolysis- Versed 1 mg and Fentanyl 50 mcg Procedure: Removal of a right internal jugular approach 1 lumen 8 Somali chest port under fluoroscopic guidance. Fluoroscopic time: 0.1 minutes Procedure details: The procedure, risks, and possible complications were explained to the patient in detail, and informed consent was obtained. The patient was placed supine on the angiography table. The right neck and upper chestwere prepped and draped in the usual sterile manner. A merchant miller radiograph ofthe chest was obtained, which showed [...] the procedure well and was transferred to theuc medical centering area in stable condition. There were no immediate complicationsassociated with the procedure. Impression: Successful removal of a right internal jugular approachsince lumen 8 Somali chest port under fluoroscopic guidance. Note: Keep the dressing clean and dry for 5 days. I, BIJAL Elizalde, was present and performed/supervised the entire procedure. > Dictated by Aguila Pritchett (Solution Designer) 04/26/2024 3:21 PM IValeria MD have personally reviewed and interpreted this examination/study. > Interpreting Provider: Valeria Hernandez MD on 05/07/2024 8:15 AM Shreyas Phillips MD IR ORDERABLES * GLUCOSE - POINT OF CARE (04/26/2024 6:51 AM GLOBAL COMPENSATION ANALYST) Glucose WB/POC 92 70 - 99 mg/dL 04/26/2024 6:52 AM GLOBAL COMPENSATION ANALYST [facility] Specimen Type Venous 04/26/2024 6:52 AM GLOBAL COMPENSATION ANALYST [facility] Blood BLOOD SPECIMEN / Unknown 04/26/2024 6:51 AM GLOBAL COMPENSATION ANALYST 04/26/2024 6:52 AM GLOBAL COMPENSATION ANALYST Shreyas Phillips MD LAB - POINT OF CARE ORDERABLES [facility] [address] [place] [address], [facility] [phone] * PT-INR [facility] (04/26/2024 6:47 AM GLOBAL COMPENSATION ANALYST) PT 13.2 12.1 - 14.8 Seconds 04/26/2024 7:20 AM GLOBAL COMPENSATION ANALYST [facility] INR 1.0 See Comment 04/26/2024 7:20 AM [facility] Comment:The suggested therap eutic range for standard coumadin (warfarin) therapy is an INR of 2.0-3.0. For high-risk patients (Mechanical Mitral Valve Prosthesis, etc.), the suggested prophylactic therapeutic range is an INR of 2.5-3.5. Blood BLOOD SPECIMEN / Unknown Venipuncture / Unknown 04/26/2024 6:47 AM GLOBAL COMPENSATION ANALYST 04/26/2024 6:51 AM GLOBAL COMPENSATION ANALYST Tyson Sandhu MD LAB - COAGULATION OR DERABLES [facility] [address] [place] [phone], [facility] [phone] * (ABNORMAL) CBC W AUTO DIFFERENTIAL (03/16/2024 2:26 PM GLOBAL COMPENSATION ANALYST) WBC 5.4 4.0 - 10.7 x10E9/L 03/17/2024 2:57 AM [facility] RBC Count 4.04 3.90 - 5.20 x10E12/L 03/17/2024 2:57 AM [facility] Hemoglobin 11.4(L) 11.9 - 15.8 g/dL 03/17/2024 2:57 AM [facility] Hematocrit 37.2 34.8 - 46.1 % 03/17/2024 2:57 AM [facility] MCV 92.1 80.0 - 98.0 fL 03/17/2024 2:57 AM [facility] MCH 28.2 26.7 - 33.6 pg 03/17/2024 2:57 AM [facility] MCHC 30.6(L) 31.7 - 36.3 g/dL 03/17/2024 2:57 AM [facility] RDW-CV 14.7 11.3 - 14.8 % 03/17/2024 2:57 AM [facility] Platelet Count 184 150 - 420 x10E9/L 03/17/2024 2:57 AM [facility] MPV 9.5 7.8 - 11.4 fL 03/17/2024 2:57 AM [facility] Preliminary Absolute Neutrophil 3.75 1.60 - 7.50 x10E9/L 03/17/2024 2:57 AM [facility] Neutrophil % 69.9 41.0 - 74.0 % 03/17/2024 2:57 AM [facility] Lymphocyte % 18.4 17.0 - 47.0 % 03/17/2024 2:57 AM [facility] Monocyte % 8.9 3.0 - 11.0 % 03/17/2024 2:57 AM [facility] Eosinophil % 2.0 0.0 - 7.0 % 03/17/2024 2:57 AM [facility] Basophil % 0.4 0.0 - 1.6 % 03/17/2024 2:57 AM [facility] Immature Granulocytes % 0.4 0.0 - 1.0 % 03/17/2024 2:57 AM [facility] Neutrophil Absolute 3.75 1.60 - 7.50 x10E9/L 03/17/2024 2:57 AM [facility] Lymphocyte Absolute 0.99(L) 1.00 - 4.40 x10E9/L 03/17/2024 2:57 AM [facility] Monocyte Absolute 0.48 0.15 - 1.00 x10E9/L 03/17/2024 2:57 AM [facility] Eosinophil Absolute 0.11 0.00 - 0.60 x10E9/L 03/17/2024 2:57 AM [facility] Basophil Absolute 0.02 0.00 - 0.13 x10E9/L 03/17/2024 2:57 AM [facility] Blood BLOOD SPECIMEN / Unknown Venipuncture / Unknown 03/16/2024 2:26 PM GLOBAL COMPENSATION ANALYST 03/17/2024 2:52 AM [facility] Shreyas Phillips MD LAB - HEMATOLOGY ORD ERABLES [facility] [address] [place] [address], [facility] [phone] * (ABNORMAL) COMPREHENSIVE METABOLIC PANEL (03/16/2024 2:26 PM GLOBAL COMPENSATION ANALYST) BUN 18 7 - 26 mg/dL 03/17/2024 3:20 AM [facility] Creatinine 0.86 0.56 - 0.96 mg/dL 03/17/2024 3:20 AM [facility] Sodium 141 136 - 145 mmol/L 03/17/2024 3:20 AM [facility] Potassium 3.9 3.5 - 4.5 mmol/L 03/17/2024 3:20 AM [facility] Chloride 108(H) 98 - 107 mmol/L 03/17/2024 3:20 AM [facility] CO2 26 22 - 29 mmol/L 03/17/2024 3:20 AM [facility] Glucose 97 70 - 99 mg/dL 03/17/2024 3:20 AM [facility] Calcium 9.6 8.4 - 10.2 mg/dL 03/17/2024 3:20 AM [facility] Protein Total 6.6 6.0 - 8.3 g/dL 03/17/2024 3:20 AM [facility] Albumin 4.3 3.4 - 5.0 g/dL 03/17/2024 3:20 AM [facility] Bilirubin Total 0.2 0.2 - 1.2 mg/dL 03/17/2024 3:20 AM [facility] Alkaline Phosphatase 57 40 - 150 U/L 03/17/2024 3:20 AM [facility] ALT 33 5 - 55 U/L 03/17/2024 3:20 AM [facility] AST 21 5 - 34 U/L 03/17/2024 3:20 AM [facility] Anion Gap 7 6 - 16 03/17/2024 3:20 AM [facility] BUN/Creatinine Ratio 21 7 - 23 03/17/2024 3:20 AM [facility] Osmolality Calculated 294 275 - 295 mOsm/kg 03/17/2024 3:20 AM [facility] Albumin/Globulin Ratio 1.9 1.1 - 2.3 03/17/2024 3:20 AM [facility] eGFR by CKD-EPI 75(L) >=90 mL/min/1.7 3 m2 03/17/2024 3:20 AM GLOBAL COMPENSATION ANALYST [facility] Blood BLOOD SPECIMEN / Unknown Venipuncture / Unknown 03/16/2024 2:26 PM GLOBAL COMPENSATION ANALYST 03/17/2024 2:52 AM GLOBAL COMPENSATION ANALYST Shreyas Phillips MD LAB - CHEMISTRY SILVINO LENZ Performing Organization Address [facility]/ZIP Co de Phone Number [address] [address], [facility] [phone] * LDH BLOOD (03/16/2024 2:26 PM GLOBAL COMPENSATION ANALYST) LDH Total 196 125 - 243 Units/L 03/17/2024 3:20 AM GLOBAL COMPENSATION ANALYST [facility] Blood BLOOD SPECIMEN / Unknown Venipuncture / Unknown 03/16/2024 2:26 PM GLOBAL COMPENSATION ANALYST 03/17/2024 2:52 AM GLOBAL COMPENSATION ANALYST Shreyas Phillips MD LAB - CHEMISTRY SILVINO LENZ Performing Organization Address [facility]/ZIP Co de Phone Number [address] [address], [facility] [phone] * KS FNA BX W US GDN 1ST LES (02/15/2024 11:08 AM GLOBAL COMPENSATION ANALYST) Narrative Sorin Bowden APRN-CNP - 02/15/2024 11:08 AM GLOBAL COMPENSATION ANALYST Sorin Bowden APRN-CNP 02/15/2024 11:10 AM Procedure [...] FINE NEEDLE ASPIRATION (STL) (02/15/2024 10:48 AM GLOBAL COMPENSATION ANALYST) Case Report Medical Cytology Report Case: [id number] Authorizing Provider: Kal Sorinjoon Calderon, Collected: 02/15/2024 10:48 AM FACETER-MANAGER ENVIRONMENTAL SERVICES Ordering Location: [facility] Physician [facility] - Received: 02/16/2024 07:20 AM ENT Pathologist: Gerald Carlson MD Specimen: Neck Mass, Right TR4 thyroid nodule 03/05/2024 11:13 AM [facility] Specimen Adequacy Adequate cellularity for evaluation. 03/05/2024 11:13 AM [facility] Final Diagnosis Thyroid, right nodule, US-FNA: - Atypia of undetermined significance (TBSRTC category III), nuclear atypia and rare spindle cells 03/05/2024 11:13 AM [facility] Clinical History The patient is a 63 year old female with a TR4 thyroid nodule, s/p two prior FNAs (categories I and III). 03/05/2024 11:13 AM [facility] Gross Description 1 pap stained Thin Prep from 20cc of clear collection fluid 03/05/2024 11:13 AM [facility] Microscopic Description The aspirate shows a good amount of background colloid, as well as scattered macrofollicular bland epithelium. However there are also some small clusters of spindle cells. Comment: Molecular studies, and possibly a serum calcitonin is advised. 03/05/2024 11:13 AM [facility] Addendum 1 Specimen source is Right TR4 thyroid nodule. Neck Mass was entered originally as primary source, but is too general a description. 03/05/2024 11:13 AM [facility] Addendum electronically signed by Tra Cordero on 03/05/2024 at 11:13 AM Pathologist Location at [facility] 03/05/2024 11:13 AM [facility] Disclaimer The performance characteristics of all immunohistochemical and indirect immunofluorescence stains (if any) cited in this report were determined by the Histopathology Laboratory of [facility]. Some of these tests rely on the use of analyte-specific reagents and are subject to specific labeling requirements by the US Food and Drug Administration. Such tests were developed by the Histology Laboratory of [facility] and have not been cleared or approved [...] the attending (teaching) pathologist. 03/05/2024 11:13 AM [facility] Embedded Images 03/05/2024 11:13 AM [facility] Pathology/Cytolo gy MASS OF NECK / Unknown Collection / Unknown 02/15/2024 10:48 AM GLOBAL COMPENSATION ANALYST 02/16/2024 7:20 AM GLOBAL COMPENSATION ANALYST Sorin Bowden FACETER-MANAGER ENVIRONMENTAL SERVICES LAB - PATH OLOGY/CYTOLOGY ORDERABLES [facility] [address] [phone] * PATHOLOGY/CYTOLOGY REPORT ORDER (02/15/2024) 02/15/2024 Narrative 02/15/2024 Ordered by an unspecified provider. Scanned Document LAB - PATHOLOGY/CYTO LOGY ORDERABLES * HEMOGLOBIN A1C (02/03/2023 11:03 AM [facility]) Hemoglobin A1c 5.4 <=5.6 % 02/03/2023 3:39 PM [facility] Estimated Average Glucose 108 mg/dL 02/03/2023 3:39 PM [facility] Comment: HbA1c Interpretation: Normal : < 5.7% Pre-diabetes: 5.7-6.4% Diabetes: Equal to or greater than 6.5% Test results diagnostic of diabetes should be repeated for confirmation. Treatment target values recommended by ADA and other clinical organizations should be used to evaluate metabolic control in patients. Reference: [place] [employer], Standards of Care in Diabetes -2020 In patients 70 years and older consider HbA1c target range of 7.0-7.5% (Reference: Vishal Davis et al. JAMDA. 2012) The Sebia assay for the measurement of HbA1c is a National Glycohemoglobin Standardization Program (NGSP) certified method. Blood BLOOD SPECIMEN / Unknown Lab Venipuncture / Unknown 02/03/2023 11:03 AM GLOBAL COMPENSATION ANALYST 02/03/2023 11:29 AM GLOBAL COMPENSATION ANALYST Mohini Sky MD LAB - CHEMISTRY SILVINO LENZ [place] [id number] [place] [address], [facility] [phone] * HEPATITIS C RNA QUANTITATIVE (07/16/2022 12:15 PM CDT) [facility] Hepatitis C RNA PCR, Interp Not detected Not detected 07/19/2022 1:08 PM CDT [facility] Blood BLOOD SPECIMEN / Unknown Lab Venipuncture / Unknown 07/16/2022 12:15 PM CDT 07/16/2022 12:25 PM CDT Narrative [facility] - 07/19/2022 1:08 PM CDT The Hepatitis C viral (HCV) RNA analysis utilized a serum sample, real-time reverse children teacher PCR, and is reported as Not Detected, [...] the isolation of HCV RNA with reverse children teacher of genomic HCV RNA followed by real-time PCR in the presence of an unrelated RNA internal control. The internal control ensures that RNA is isolated, and that no general significant inhibitors of the RT-PCR process are present. The analysis was performed using a [place] FDA approved test methodology. Shreyas Phillips MD LAB - CHEMISTRY [facility] [address] [place] [address], [facility] [phone] from Last 3 Months or Most Recently [...] 3:45 PM 10/19/2022 5:53 PM Care Teams Cell Operator Relationship Specialty Start Date End Date Agustin Flor MD [address] [place] [address] PCP - General General Medicine 06/28/22 Shreyas Phillips MD [address] [place] [address] Physician Hematology and Oncology 03/23/23 Bebe Hernandez, PA-C [address] [place] [address] Physician Software Engineering Manager Physician Software Engineering Manager 03/23/23 Nanda Rausch, RN Registered Nurse 03/23/23
== END 2024-05-14 14:43 | disposition home or self-care (01) ==
LOC: ANHIMG 14:48
PROVIDERS: PCP Internal Medicine; Visit Provider Internal Medicine
DX: J32.9 Chronic sinusitis, unspecified (principal)
CPT/HCPCS: 70486

== ENCOUNTER 2024-06-05 20:08 | Emergency (ER) | payer MEDICARE, MEDICAID, SELFPAY ==
--- NOTE | ~2024-06-05 | XR_ITS ---
EXAMINATION: XR chest 1V portable DATE: 06/05/2024 20:56 INDICATION: Allergic reaction. TECHNIQUE: A single frontal view of the chest was obtained. COMPARISON: Chest 2 views 04/12/2024, PET/CT 05/20/2022 FINDINGS: There is mild scarring at left lung apex. Calcified left lung nodules and calcified left hi lar and mediastinal lymph nodes are consistent with old granulomatous disease. No pleural effusion or pneumothorax. The heart size is normal. An electronic implant overlies left chest. IMPRESSION: 1. No acute cardiopulmonary disease. Reviewed, dictated and finalized at location A.
[2024-06-05 20:15] VITALS: BP 166/87; PULSE 96; RESP 22; TEMP 36.6; O2SAT 98
[2024-06-05 20:22] VITALS: O2SAT 97
--- NOTE | 2024-06-05 20:57 | ED.ALLEREA ---
HPI - Allergic Reaction General Chief complaint: Allergic Reaction Stated complaint: Allergic Rxn Time Seen by Provider: 06/05/24 20:17 History of Present Illness HPI narrative: 64-year-old female presenting to the emergency department for suspected allergic reaction. Patient was prescribed azithromycin and a Z-David formulation by her PCP for some upper respiratory infection symptoms today. She took the 1st dose at about 5:00 p.m. and then started feeling symptomatic with paresthesias in her hands, puffiness around her eyes, itching her hands and feet and called EMS for assistance. No difficulty breathing or wheezing. Some minor nauseousness without vomiting and no diarrhea. Patient tells me that she has never had azithromycin before but does have allergies to other antibiotics including cephalosporin. She also received a tetanus vaccine today in the office but has had this before without issue. Patient is otherwise well-appearing now but did receive Benadryl, Zofran and fluids via EMS on route here to the ED. Patient states that her itchiness and puffiness and redness around her eyes has since resolved. Has not had to use epinephrine or had any history of anaphylaxis. Related Data Home Medications ?Medication ?Instructions ?Recorded ?Confirmed ?Last Taken ?Type albuterol sulfate 2.5 mg/3 mL 2.5 mg inhalation Q6H 08/13/20 06/03/22 Unknown History (0.083 %) solution for nebulization amlodipine 5 mg tablet 5 mg PO DAILY 08/13/20 06/03/22 Unknown History blood sugar diagnostic 08/13/20 07/30/21 Unknown History gabapentin 600 mg tablet 600 mg PO TID 08/13/20 06/03/22 Unknown History pantoprazole 20 mg tablet,delayed 20 mg PO QAM 08/13/20 06/03/22 Unknown History release ziprasidone HCl 80 mg capsule 80 mg PO BID 08/13/20 06/03/22 Unknown History fluticasone fur. 200 mcg-umeclid 1 inh inhalation DAILY 06/03/22 06/03/22 Unknown History 62.5 mcg-vilant 25 mcg inhalat.powder (Trelegy Ellipta) hydroxyzine pamoate 25 mg capsule 25 mg PO DAILY 06/03/22 06/03/22 Unknown History insulin detemir U-100 100 unit/mL 20 unit subcut BID 06/03/22 06/03/22 Unknown History (3 mL) subcutaneous pen (Levemir FlexPen) insulin human U-100 NPH-regulr 10 unit subcut BID 06/03/22 06/03/22 Unknown History 70-30 mix 100 unit/mL subcutaneous susp (Novolin 70/30 U-100 Insulin) Allergies Allergy/AdvReac Type Severity Reaction Status Date / Time azithromycin Allergy Mild Itching Verified 06/05/24 21:01 aspirin Allergy Difficulty Verified 10/21/23 11:45 Breathing clonazepam Allergy Anaphylaxis Verified 10/21/23 11:45 chlorthalidone AdvReac Itching Verified 10/21/23 11:45 Review of Systems Review of Systems: As reviewed above in [facility] Family History Family History Father Alcoholism Mother Alcoholism Other Alcoholism Hypertension Depression Social History Social History Smoking status: Never smoker Alcohol intake: never Substance use: never Exam Narrative: GENERAL: [Well-appearing, well-nourished, and in no acute distress.] HEAD: [Normocephalic, atraumatic.] EYES: [PERRLA and EOMI.] No periorbital edema or puffiness. No redness or conjunctivitis. ENT: Nares clear, no rhinorrhea or epistaxis. Mucous membranes moist. NECK: Supple. CHEST: [Clear to auscultation. No respiratory distress.] No wheezing, rhonchi or respiratory distress HEART: [Regular rate and rhythm]. No murmur heard. [Normal peripheral pulses.] ABDOMEN: [Soft, nondistended], [nontender], [No rigidity or guarding] EXTREMITIES: Contractures noted in her bilateral lower ankles, no edema. SKIN: Warm, dry, no rash. No urticarial rash or any raised lesions. NEURO: [No focal deficits]. Alert and oriented [x3.] PSYCH: [Normal mood and affect.] Course Vital Signs Vital signs: Vital Signs Temperature 36.6 C 06/05/24 20:15 Pulse Rate 96 06/05/24 20:15 Respiratory Rate 22 H 06/05/24 20:15 Blood Pressure 166/87 H 06/05/24 20:15 Pulse Oximetry 98 06/05/24 20:15 Oxygen Delivery Room Air 06/05/24 20:15 Temperature 36.6 C 06/05/24 20:15 Pulse Rate 96 06/05/24 20:15 Respiratory Rate 22 H 06/05/24 20:15 Blood Pressure 166/87 H 06/05/24 20:15 Pulse Oximetry 97 06/05/24 20:22 Oxygen Delivery Room Air 06/05/24 20:22 MDM - Allergic Reaction MDM Narrative Medical decision making narrative: 64-year-old female presenting to the ER for suspected allergic reaction to azithromycin. Patient states that she took the azithromycin if I p.m. and has never had this antibiotic before. About an hour and half later she started developing some tingling in her hands, redness and puffiness around her eyes and itchiness in her hands and feet. She received Benadryl and Zofran as well as fluids EN route via EMS and most of her symptoms have since subsided. Did not receive epinephrine and has never had a history of anaphylaxis. She has a history of allergies to other antibiotics, aspirin, clonazepam and chlorthalidone. She is otherwise well-appearing not any acute distress. No wheezing auscultated, no abdominal distention or tenderness. No periorbital edema conjunctivitis, no allergic rhinitis, no diarrhea, no urticaria on her skin examination. Patient will receive 20 mg of Pepcid here and be observed to make sure that she does not have any rebound symptoms or develops any anaphylaxis. Basic laboratory studies were ordered as well as a chest x-ray. Patient was placed on monitoring specialist and observed here in the ED. Patient remained asymptomatic and her family is at bedside during re-evaluation. Laboratory studies show no leukocytosis or anemia. Electrolytes within normal limits, normal renal function. Normal glucose. Chest x-ray shows no acute cardiopulmonary process. Patient is safe and stable for discharge home at this time after being observed in the ED for several hours without any concerns, azithromycin was added to her allergy list and she was encouraged to follow-up with her PCP. Medical Records Attestation: I reviewed the patient's medical records. Lab Data Attestation: I reviewed the patient's lab results. 06/05/24 21:24 06/05/24 21:24 Labs: Lab Results 06/05/24 Range/Units 21:24 WBC 6.3 (4.5-10.0) K/mm3 RBC 4.17 L (4.2-5.4) M/mm3 Hgb 12.0 (12.0-15.0) g/dL Hct 37.0 (37.0-47.0) % MCV 88.7 (80-100) fl MCH 28.8 (26-34) pg MCHC 32.4 (32-36) g/dl RDW 14.4 (11.5-14.5) % Plt Count 139 L (150-375) k/mm3 MPV 8.8 (7.4-10.4) fl Immature Gran % (Auto) 0.3 (0-0.5) % Neut % (Auto) 77.0 H (45.5-73.1) % Lymph % (Auto) 10.4 L (18.3-44.2) % [place] % (Auto) 9.9 H (2.6-8.5) % Eos % (Auto) 2.1 (0-4.4) % Baso % (Auto) 0.3 (0.2-1.2) % Lymph # (Auto) 0.65 L (0.9-3.2) K/mm3 [place] # (Auto) 0.6 (0.1-0.6) K/mm3 Eos # (Auto) 0.1 (0-0.3) K/mm3 Baso # (Auto) 0.0 (0.0-0.1) K/mm3 Abs Immat Gran (auto) 0.02 (0.00-0.031) K/mm3 Absolute Neuts (auto) 4.8 (1.3-6.7) K/mm3 Absolute Nucleated RBC 0.000 (0.0-0.012) K/mm3 Nucleated RBC % 0.0 (0.0-0.2) % Sodium 140 (137-145) mmol/L Potassium 4.2 (3.4-5.0) mmol/L Chloride 104 (98-107) mmol/L Carbon Dioxide 24 (22-30) mmol/L Anion Gap 12 (4-12) mmol/L BUN 18 H (7-17) mg/dL Creatinine 0.84 (0.7-1.0) mg/dL Estim Creat Clear Calc 50 ml/min Estimated GFR > 60 (59 - ) Glucose 136 H (65-110) mg/dL Calcium 9.7 (8.4-10.2) mg/dL Imaging Data Attestation: I personally reviewed and interpreted this imaging study as follows: My impression: Impressions Chest X-Ray 06/05/24 21:12 IMPRESSION: 1. No acute cardiopulmonary disease. Discharge Plan Discharge Clinical Impression: Allergic reaction Patient Disposition: Home, Self-Care Condition: Stable Instructions: Antibiotic Form, Allergies (ED) Additional Instructions: We have added azithromycin to your allergy list, your laboratory studies are reassuring as well as your x-ray. No signs of anaphylaxis or any other concerns. If you have any recurrence of your itchy rash or puffy eyes you can take [id number]-hdllbih Benadryl 50 mg as needed in addition to iwjb-fly-agotgyh Pepcid 20 mg as needed. Call your regular doctor for close follow-up. Return with any new or worsening concerns such as developing difficulty breathing, chest pain, abdominal cramping, diarrhea, throat swelling or any other concerns. Patient Language: Setswana Prescriptions: No Action albuterol sulfate 2.5 mg /3 mL (0.083 %) solution for nebulization 2.5 mg inhalation Q6H pantoprazole 20 mg tablet,delayed release (DR/EC) 20 mg PO QAM gabapentin 600 mg tablet 600 mg PO TID (DME) blood sugar diagnostic Strip See Rx Instructions .Route Rx Instructions: As directed ziprasidone HCl 80 mg capsule 80 mg PO BID Rx Instructions: give with food (meal/snack) amlodipine 5 mg tablet 5 mg PO DAILY Novolin 70/30 U-100 Insulin 100 unit/mL (70-30) Suspension 10 unit SUBCUT BID hydroxyzine pamoate 25 mg Capsule 25 mg PO DAILY Levemir FlexPen 100 unit/mL (3 mL) Insulin Pen 20 unit SUBCUT BID Trelegy Ellipta 200-62.5-25 mcg Blister With Device 1 inh INHALATION DAILY potassium chloride [K-Tab] 20 mEq tablet extended release 20 meq PO BID Qty: 10 0RF Follow-up/Referrals: Chacho,MD Agustin [Primary Care Provider] - Time of Disposition: 22:13
[2024-06-05] MEDS: FAMOTIDINE 20 MG/2 ML VIAL IV PUSH (21:17)
[2024-06-05 21:30] LABS: Basophils Percent Auto 0.3 % (0.2-1.2); Eosinophils Absolute Auto 0.1 K/mm3 (0-0.3); Eosinophils Percent Auto 2.1 % (0-4.4); Immature Granulocyte Absolute 0.02 K/mm3 (0.00-0.031); Immature Granulocyte Percent A 0.3 % (0-0.5); Lymphocytes Absolute Auto 0.65 K/mm3 (0.9-3.2); Lymphocytes Percent Auto 10.4 % (18.3-44.2); Mean Corpuscular HGB Conc 32.4 g/dl (32-36); Mean Corpuscular Hemoglobin 28.8 pg (26-34); Mean Corpuscular Volume 88.7 fl (80-100); Mean Platelet Volume 8.8 fl (7.4-10.4); Monocytes Absolute Auto 0.6 K/mm3 (0.1-0.6); Monocytes Percent Auto 9.9 % (2.6-8.5); Neutrophils Absolute Auto 4.8 K/mm3 (1.3-6.7); Platelet Count Result 139 k/mm3 (150-375); Red Blood Count 4.17 M/mm3 (4.2-5.4); Red Cell Distribution Width 14.4 % (11.5-14.5); White Blood Count 6.3 K/mm3 (4.5-10.0)
[2024-06-05 21:39] LABS: Anion Gap 12 mmol/L (4-12); Blood Urea Nitrogen 18 mg/dL (7-17); Calcium 9.7 mg/dL (8.4-10.2); Carbon Dioxide 24 mmol/L (22-30); Chloride 104 mmol/L (98-107); Estimated CRCL calculation 50 ml/min; Estimated Glomerular Filt Rate > 60; Glucose 136 mg/dL (65-110); Potassium 4.2 mmol/L (3.4-5.0); Sodium 140 mmol/L (137-145)
--- OUTSIDE RECORDS SUMMARY | 2024-06-05 21:39 | XMS_ITS | Encounter Summary ---
Author Organization [facility] Address [address] [place] [address] Care Team Providers Care Cake Knocker Name Role Phone Agustin Flor MD Primary Care Provider [phone] Mabel Del Real RN Unavailable Unavailable Shreyas Phillips MD Unavailable Bebe Hernandez PA-C Unavailable Nanda Rausch RN Unavailable Unavailable Encounter Details Date Type Department Care Team (Late Contact Info) Description 06/10/2022 Lab Requisition [facility] [address] [place] [address] Chris Julian MD [address] [phone] Illness, unspecified Social History Tobacco Use Types Packs/Day Years Used Date Smoking Tobacco: Never Assessed Sex and Gender Information Value Date Recorded Sex Assigned at Not on file Gender Identity Female 08/19/2023 1:35 PM CDT Sexual Orientation Not on file documented as of this encounter Plan of Treatment Upcoming Encounters Date Type Department Care Team (Late Contact Info) Description 06/15/2024 11:40 AM CDT Appointment [facility] [address] [place] [address] Shreyas Phillips MD [address] [place] [phone] (work) documented as of this encounter Procedures Procedure Name Priority Date/Time Associated Diagnosis Comments PATHOLOGY TISSUE Routine 06/08/2022 11:1 9 AM CDT Illness, unspecified documented in this encounter Results * PATHOLOGY TISSUE (06/08/2022 11:19 AM CDT) Case Report Surgical Pathology Report Case: [id number] Authorizing Provider: Chris Julian MD Collected: 06/08/2022 11:19 AM Ordering Location: [facility] Received: 06/10/2022 11:21 AM Pathologist: Reshma Singh MD Specimen: Lymph Node Biopsy, CT Biopsy Left Lymph Node 06/11/2022 10:47 AM CDT [facility] Final Diagnosis Lymph node, left paracolic, needle core biopsy: - Limited specimen with involvement by a [id number]-[id number] mature B-cell lymphoma - See description and comment 06/11/2022 10:47 AM CDT [facility] Microscopic Description and Comment Sections [...] Ki-67 is estimated at 50%. Flow cytometry ([facility], [address] [place], [place] [address]) is reported to show an atypical KM94-gwgiykiu population that lacks surface immunoglobulin light chain expression. 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 Given the limited nature of the specimen, the differential diagnosis includes diffuse large B-cell lymphoma, a high grade B-cell lymphoma, and follicular lymphoma. FISH testing for abnormalities of MYC, BCL-2, and BCL-6 is recommended as a next step if sufficient specimen remains at [facility]. There is insufficient residual tissue present in [...] Clinical correlation is advised. 06/11/2022 10:47 AM [facility] Clinical History Retroperitoneal lymphadenopathy. 06/11/2022 10:47 AM [facility] Materials Received Received for initial diagnosis are two slides and one block (A1) labeled [id number] along with a copy of the outside pathology report. The materials originate from [facility]. All original materials are returned to the referring institution, along with a copy of our final report. 06/11/2022 10:47 AM [facility] Disclaimer The performance characteristics of all immunohistochemical and indirect immunofluorescence stains (if any) cited in this report were determined by the Histopathology Laboratory of [facility]. Some of these tests were developed by [...] the attending (teaching) pathologist. 06/11/2022 10:47 AM CDT [facility] Embedded Images 06/11/2022 10:47 AM T [facility] Pathology/Cytolo gy BIOPSY OF LYMPH NODE / Unknown 06/08/2022 11:19 AM CDT 06/10/2022 11:21 AM CDT Chris Julian MD LAB - PATHOLOGY/CYTO LOGY ORDERABLES [facility] [address] [facility] [place] [address], [facility] [phone] documented in this encounter Visit Diagnoses Diagnosis Illness, unspecified documented in this encounter Care Teams Cake Knocker Relationship Specialty Start Date End Date Agustin Flor MD [address] [place] [address] PCP - General General Medicine 06/28/22 Mabel Del Real RN Registered Nurse Orthopedic Surgery 02/28/23 03/27/24 [place] [address] [place] [phone] Physician Hematology and Oncology 03/23/23 Bebe Hernandez, PA-C [address] [place] [address] Physician Warrant Clerk Physician Warrant Clerk 03/23/23 Nanda Rausch, RN Registered Nurse 03/23/23 documented as of this encounter
--- OUTSIDE RECORDS SUMMARY | 2024-06-05 21:39 | XMS_ITS | Encounter Summary ---
Author Organization [facility] Address [address] [place] [address] Care Team Providers Care Portal Administrator Name Role Phone Agustin Flor MD Primary Care Provider [phone] Encounter Details Date Type Department Care Team (Latest Contact Info) Description 10/27/2022 12:18 PM CDT Hospital Encounter [address] [address] Claudia Plascencia MD [address] [place] [address] [place] [phone] [facility] Social History Tobacco Use Types [...] care, and heating? Not very hard 11/20/2022 [facility] [place] [facility] - Occupational Stress [...] place to sleep or slept in a long-term (including now)? No 11/20/2022 Sex and Gender [...] Care Team (Late st Contact Info) Description 06/15/2024 11:40 AM CDT Appointment [facility] [address] [place] [address] Shreyas Phillips MD [address] [place] [address] documented as of this encounter Visit Diagnoses Not on filedocumented in this encounter Care Teams Portal Administrator Relationship Specialty Start Date End Date Agustin Flor MD [address] [place] [address] PCP - General General Medicine 06/28/22 documented as of this encounter
--- OUTSIDE RECORDS SUMMARY | 2024-06-05 21:39 | XMS_ITS | Clinical Summary ---
Author Organization [facility] Address [address] [place] [address] Care Team Providers Care Surgical Tech Name Role Phone Agustin Flor Primary Care Provider [phone] Allergies Active Allergy Reactions Criticality Noted Date [...] 1959 DTaP/Tdap/Td Vaccines (1 - Tdap) 1965 Ophthalmology Exam 1968 Urine Microalbumin 1968 Hepatitis C Screening 1976 Pneumococcal Vaccine: 65+ Ye ars (1 of 4 - PCV) 1977 HIB Vaccines Aged Out No longer eligi [...] 8:27 PM 11/12/2022 4:08 PM Care Teams Surgical Tech Relationship Specialty Start Date End Date Agustin Flor [address] [phone] PCP - General 10/28/22
--- OUTSIDE RECORDS SUMMARY | 2024-06-05 21:39 | XMS_ITS | CONTINUITY OF CARE DOCUMENT ---
Author Name yoselyn topete Address Unknown Organization [facility] Address [address] [place] [address] Phone [phone] Care Team Providers Care Control And Recovery Special Tactics Name Role Phone Calvin HILL, Annie Pierce Unavailable SHIELA ELLISON MD Unavailable [phone] SHIELA ELLISON MD Unavailable PROBLEMS Condition Status Date Provider Notes S/P Implantable Loop Recorder-Biotronik ( MRI Safe) active Edilia Early Other symptoms involving cardiovascular system completed - Annie Simpson MD Hypertension active ? Annie Simpson MD Snoring completed - Annie Simpson MD Sleep apnea active Annie Simpson MD EKG completed - Annie Simpson MD Aortic regurgitation active Annie landry MD Aortic root dilatation active Annie alarcon MD Chest pain-type to be determined active Frandy Cee C O P D active Annie Simpson MD Cardiovascular Condition Screening active Annie Simpson MD CVA active Annie Simpson MD Lymphoma s/p chemo active Annie Simpson MD Preop cardiovasc. 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 Cardiac septal defects active Shelley marshall 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 APPRENTICE Patent foramen ovale active Gallo Crowley Diffuse Non-Hodgkin's lympho ma (NHL) active Annie Simpson MD ENCOUNTERS Date Type Provider Location Encounter Diag nosis - In-person encounter Office Visit [facility] [place] [facility] - In-person encounter Office Visit Annie Simpson MD [place] [facility] Diffuse Non-Hodgkin's lymphoma (NHL) - In-person encounter Office Visit Gallo Diehl MD [place] [facility] Patent foramen ovale - In-person encounter Office Visit Annie Simpson MD [place] [facility] Cardiac septal defects - In-person encounter Office Visit Annie Simpson MD [place] [facility] Cardiology examination - In-person encounter Office Visit Annie Simpson MD [place] [facility] Preop cardiovasc. examination - In-person encounter Office Visit Annie Simpson MD [place] [facility] CVALymphoma s/p chemo - In-person encounter Office Visit Annie Simpson MD [place] [facility] - In-person encounter Office Visit Annie Simpson MD [place] [facility] - In-person encounter Office Visit Annie Simpson MD [place] [facility] Cardiovascular Condition Screening - In-person encounter Office Visit Annie Simpson MD [place] [facility] - In-person encounter Office Visit Annie Simpson MD [place] [facility] - In-person encounter Office Visit Annie Simpson MD [place] [facility] Other symptoms involving cardiovascular systemSnoringEKG - In-person encounter Office Visit Annie Simpson MD [place] [facility] C O P D - In-person encounter Office Visit Annie Simpson MD [place] [facility] Chest pain-type to be determined - In-person encounter Office Visit Annie Simpson MD [place] [facility] Aortic regurgitationAortic root dilatation - In-person encounter Office Visit Annie Simpson MD [place] [facility] - In-person encounter Office Visit Annie Simpson MD [place] [facility] Sleep apnea - In-person encounter Office Visit Annie Simpson MD [place] [facility] Hypertension VITAL SIGNS Date Observation Value Provider Body Mass Index (Ratio) 23.29 kg/m2 Jackson Diehl MD oxygen saturation, oximetry 79 % Nanda Zamora pulse rate 96 /min Nanda Cheng s blood pressure, diastolic 81 mm[Hg] Azar tony Zamora blood pressure, systolic 135 mm[Hg] Torsten Zamora weight E&M 140 [lb_av] Nanda Cheng s height E&M 65 [in_i] Nanda Cheng s blood pressure, cuff size regular Ke rri Gruenenfelder blood pressure, diastolic 80 mm[Hg] Ke rri Gruenenfelder blood pressure, systolic 144 mm[Hg] Ker ri Ludwigneaddison oxygen saturation, oximetry 96 % Elizabeth Denice pulse rate 79 /min Elizabeth Kayli lder height E&M 65 [in_i] Elizabeth Kayli lder blood pressure, diastolic 75 mm[Hg] Hoang Borja blood pressure, systolic 145 mm[Hg] Huma Valdezam respiratory rate E&M 12 /min Kevin lemon oxygen saturation, oximetry 98 % Kevin Jonh pulse rate 75 /min Kevin Jonh blood pressure, cuff size regular Hoang Valdezam height E&M 65 [in_i] Kevin Jonh Body Mass Index (Ratio) 23.29 kg/m2 Gregor Garcia blood pressure, diastolic 89 mm[Hg] Hortensia tejeda Li blood pressure, systolic 149 mm[Hg] Yancy triana Li oxygen saturation, oximetry 97 % Blanca Essex pulse rate 68 /min Blanca Essex respiratory rate E&M 14 /min Blanca Essex weight E&M 140 [lb_av] Blanca Essex height E&M 65 [in_i] Blanca Essex blood pressure, cuff size regular Hortensia tejeda [place] Body Mass Index (Ratio) 22.96 kg/m2 Josh Hernandez blood pressure, diastolic 78 mm[Hg] [facility], systolic 136 mm[Hg] Amarilys Thorne weight E&M 138 [lb_av] Kimi Carlson blood pressure, cuff size regular Ta bitchristi Carlson blood pressure, diastolic 78 mm[Hg] Ta bitha Carlson blood pressure, systolic 136 mm[Hg] Tab itha Carlson pulse rate 65 /min Kimi Carlson oxygen saturation, oximetry 98 % Kimi Carlson respiratory rate E&M 12 /min Kimi Carlson height E&M 65 [in_i] Kimi Carlson blood pressure, diastolic 94 mm[Hg] Dinora nkLog blood pressure, systolic 158 mm[Hg] Amarilys kLogic blood pressure, cuff size regular Ja rret blood pressure, diastolic 94 mm[Hg] Ja rret blood pressure, systolic 158 mm[Hg] Jar ret pulse rate 75 /min Pankaj respiratory rate E&M 14 /min Pankaj oxygen saturation, oximetry 96 % Pankaj height E&M 65 [in_i] Pankaj y respiratory rate E&M 17 /min Terrie jason blood pressure, diastolic 91 mm[Hg] Hortensia nikkie Lin blood pressure, systolic 148 mm[Hg] Any frantz Lin pulse rate 82 /min Terrie Lin blood pressure, cuff size large An nikkie Lin height E&M 65 [in_i] Terrie Lin Body Mass Index (Ratio) 28.12 kg/m2 Guerda Simpson MD blood pressure, diastolic 79 mm[Hg] St trish Delaney blood pressure, systolic 153 mm[Hg] Ambrosio Delaney oxygen saturation, oximetry 94 % Nanda Delaney pulse rate 76 /min Nanda Delaney respiratory rate E&M 16 /min Nanda aguirre weight E&M 169 [lb_av] Nanda Delaney height E&M 65 [in_i] Nanda Delaney Body Mass Index (Ratio) 27.95 kg/m2 Guerda Simpson MD blood pressure, cuff size large Ke rri Phongueneaddison blood pressure, diastolic 87 mm[Hg] Ke rri Phonguekitty blood pressure, systolic 120 mm[Hg] Ker ri Denice oxygen saturation, oximetry 95 % Elizabeth Nolascoelder respiratory rate E&M 14 /min Elizabeth watkinselder pulse rate 55 /min Elizabeth Milan lder weight E&M 168 [lb_av] Elizabeth Milan lder height E&M 65 [in_i] Elizabeth Milan er Body Mass Index (Ratio) 27.95 kg/m2 Guerda Simpson MD blood pressure, diastolic 69 mm[Hg] Ri jonh Mcguire blood pressure, systolic 112 mm[Hg] Bryant torsten Mcguire blood pressure, cuff size regular Ri jonh Mcguire oxygen saturation, oximetry 98 % Odalis Mcguire respiratory rate E&M 16 /min Jean Carlos Lowryerson pulse rate 65 /min Odalis Ng son weight E&M 168 [lb_av] Odalis Ng son height E&M 65 [in_i] Odalis Lowryer son Body Mass Index (Ratio) 28.12 kg/m2 Guerda Simpson MD blood pressure, diastolic 66 mm[Hg] Li nkLogic blood pressure, systolic 131 mm[Hg] Amarilys kLogic blood pressure, diastolic 66 mm[Hg] Ca therine Navarro blood pressure, systolic 131 mm[Hg] Cat herine [place] oxygen saturation, oximetry 96 % Aletha [place] respiratory rate E&M 14 /min Catheri ne Navarro pulse rate 64 /min Aletha [place] weight E&M 169 [lb_av] Aletha Navarro blood pressure, cuff size regular Ca therine [place] height E&M 65 [in_i] Aletha [place] Body Mass Index (Ratio) 27.12 kg/m2 Christiano malone Naranjo blood pressure, diastolic 66 mm[Hg] Dinora nkLogic blood pressure, systolic 111 mm[Hg] Amarilys kLogic respiratory rate E&M 16 /min Adelina Si ms blood pressure, diastolic 66 mm[Hg] Sa ra [place] blood pressure, systolic 111 mm[Hg] Alessio a [place] blood pressure, cuff size regular Sa ra [place] oxygen saturation, oximetry 95 % Adelina [place] pulse rate 71 /min Adelina [place] weight E&M 163 [lb_av] Adelina [place] height E&M 65 [in_i] Adelina [place] Body Mass Index (Ratio) 27.79 kg/m2 Guerda Simpson MD blood pressure, cuff size large Ke rri Phongueneaddison blood pressure, diastolic 80 mm[Hg] Ke rri Gruenenfelder blood pressure, systolic 132 mm[Hg] Ker ri Denice oxygen saturation, oximetry 95 % Elizabeth Galdamez respiratory rate E&M 16 /min Elizbaeth geiger pulse rate 71 /min Elizabeth Kayli er weight E&M 167 [lb_av] Elizabeth Gruenenfe lder height E&M 65 [in_i] Elizabeth Gruenenfe lder Body Mass Index (Ratio) 26.29 kg/m2 Guerda Simpson MD blood pressure, diastolic 72 mm[Hg] To nsha Leobardo blood pressure, systolic 122 mm[Hg] Ton ramesh Booth oxygen saturation, oximetry 96 % Tons Booth respiratory rate E&M 16 /min Tonsha Booth pulse rate 74 /min Tonsha Booth weight E&M 158 [lb_av] Tonsha Booth height E&M 65 [in_i] Tonsha Booth Body Mass Index (Ratio) 25.22 kg/m2 Guerda Simpson MD blood pressure, diastolic 67 mm[Hg] Uche Oliver blood pressure, systolic 121 mm[Hg] Miguelina Sanchez Oliver oxygen saturation, oximetry 98 % Forest Oliver respiratory rate E&M 18 /min Mary Jo Oliver pulse rate 64 /min Forest Scales nssha weight E&M 151.6 [lb_av] Forest freireon height E&M 65 [in_i] Forest Scales on Body Mass Index (Ratio) 25.46 kg/m2 Guerda Simpson MD pulse rate 75 /min Tons Booth temperature site temporal [facility] Booth temperature E&M 98.2 [degF] [facility] Booth respiratory rate E&M 16 /min [facility] Booth oxygen saturation, oximetry 96 % [facility] Booth weight E&M 153 [lb_av] Tonsha Booth blood pressure, diastolic 83 mm[Hg] To nsha Booth blood pressure, systolic 129 mm[Hg] Ton [facility] Booth blood pressure, resting Yes Tons barraza Booth height E&M 65 [in_i] Tonsha Booth Body Mass Index (Ratio) 23.13 kg/m2 Guerda Simpson MD blood pressure, diastolic 78 mm[Hg] Da nico Rodolfo blood pressure, systolic 136 mm[Hg] Dac ia Rodolfo oxygen saturation, oximetry 95 % Siobhan Rodolfo respiratory rate E&M 16 /min Siobhan V oss pulse rate 63 /min Siobhan Rodolfo weight E&M 139 [lb_av] Siobhan Rodolfo height E&M 65 [in_i] Siobhan Rodolfo Body Mass Index (Ratio) 24.29 kg/m2 Guerda Simpson MD blood pressure, diastolic 110 mm[Hg] Da nico Rodolfo blood pressure, systolic 192 mm[Hg] Dac ia Rodolfo oxygen saturation, oximetry 97 % Siobhan Rodolfo respiratory rate E&M 16 /min Siobhan V oss pulse rate 73 /min Siobhan Rodolfo weight E&M 146 [lb_av] Siobhan Rodolfo height E&M 65 [in_i] Siobhan Rodolfo Body Mass Index (Ratio) 26.86 kg/m2 Guerda Simpson MD blood pressure, diastolic 97 mm[Hg] Uche Philippejoon Oliver blood pressure, systolic 159 mm[Hg] Miguelina Ofeliafaisal Oliver oxygen saturation, oximetry 95 % Forest Oliver respiratory rate E&M 18 /min Mary Jo Oliver pulse rate 75 /min Forest valencia weight E&M 161.4 [lb_av] Forest talbot height E&M 65 [in_i] Forest valencia ALLERGIES Allergy Name Onset Date Reaction Criticality Status HCTZ severe itching Low Criticality activ e CLONAZEPAM High Criticality active ASA High Criticality active REASON FOR REFERRAL Date Service [Description: Dr. Jun hanks] RESULTS Date Observation Value Provider Reference Range Interpretation Location 5 basophil count, absolute 0.0 x10E3/uL [facility] 0.0-0.2 5 Eosinophil Absolute Count 0.1 X10E3/UL [facility] 0.0-0.4 5 monocyte count, blood, automated 0.4 X10E3/UL [facility] 0.1-0.9 5 lymphocyte count, blood, automated 1.0 X10E3/UL [facility] 0.7-3.1 5 Absolute Neutrophils 3.9 X10E3/UL [facility] 1.4-7.0 5 basophils as percent of blood leukocytes 1 % [facility] Not Estab. 5 eosinophils as percent of blood leukocytes 3 % [facility] Not Estab. 5 monocytes as percent of blood leukocytes 8 % [facility] Not Estab. 5 lymphocytes as percent of blood leukocytes 18 % [facility] Not Estab. 5 neutrophils as percent of blood leukocytes 69 % [facility] Not Estab. 5 platelet count 177 X10E3/UL [facility] [phone]/02/2 5 red blood cell distribution width 13.4 % [facility] 11.7-15.4 5 mean corpuscular hemoglobin concentration, RBC 31.8 G/DL [facility] 31.5-35.7 5 mean corpuscular hemoglobin, RBC 28.6 pg [facility] 26.6-33.0 5 mean corpuscular volume, RBC 90 fL [facility] 79-97 5 hematocrit, blood 39.9 % [facility] 34.0-46.6 5 hemoglobin, blood 12.7 g/dL [facility] 11.1-15.9 5 erythrocyte (RBC) count 4.44 X10E6/UL [facility] 3.77-5.28 5 leukocyte count, blood 5.6 X10E3/UL [facility] 3.4-10.8 5 prothrombin time (patient) 11.1 s [facility] 9.1-12.0 5 international normalized ratio (INR) 1.0 [facility] 0.9-1.2 5 lipoprotein, beta, serum, point, quantitative, calculated 42 mg/dL [facility] 0-99 HDL cholesterol, serum 69 mg/dL [facility] >39 triglyceride, serum, random 83 mg/dL [facility] 0-149 cholesterol, serum 127 mg/dL [facility] [phone]/02/2 calcium, serum 10.2 mg/dL [facility] 8.7-10.3 5 carbon dioxide, venous blood 27 mmol/L [facility] - 5 chloride, serum 103 mmol/L [facility] 96-106 5 potassium, serum 4.5 mmol/L [facility] 3.5-5.2 5 sodium, serum 143 mmol/L [facility] 265-147 5463/02/2 5 urea nitrogen/creatinin e ratio, serum 19 [facility] - 5 creatinine, serum 0.79 mg/dL [facility] 0.57-1.00 5 urea nitrogen, blood 15 mg/dL [facility] - 5 blood glucose, random 86 mg/dL [facility] 70-99 5 calcium, serum 10.3 mg/dL [facility] 8.7-10.3 5 carbon dioxide, venous blood 24 mmol/L [facility] - 5 chloride, serum 105 mmol/L [facility] 96-106 5 potassium, serum 4.3 mmol/L [facility] 3.5-5.2 5 sodium, serum 145 mmol/L [facility] 134-144 High 5 urea nitrogen/creatinin e ratio, serum 21 [facility] - 5 creatinine, serum 0.91 mg/dL [facility] 0.57-1.00 5 urea nitrogen, blood 19 mg/dL [facility] - 5 blood glucose, random 88 mg/dL [facility] 70-99 HISTORY OF MEDICATION USE Medication Status Instructions Dates Provider Indications Com ments losartan 25 mg tablet active Take 1 tab let by mouth once a day Annie Simpson MD Eliquis 5 mg tablet active TAKE 1 TABLE T BY MOUTH TWICE DAILY. DO NOT TAKE PLAVIX WITH ELIQUIS. AFTER FOOT SURGERY, STOP PLAVIX AND START ELIQUIS 05/10 Blanca Li terbinafine HCl 250 mg tablet active Take 1 tablet by mouth once a day Hoangdinorafrantz Borja amlodipine 10 mg tablet active Take 1 tablet by mouth once a day Elizabeth Galdamez amlodipine 5 mg tablet completed Take 1 tablet by mouth once a day 12/01 - 03/28 Shelley Beach NP ziprasidone HCl 80 mg capsule active 1 capsule by mouth every night Miane Fulton NP pantoprazole 40 mg tablet,delayed release (DR/EC) active TAKE 1 TABLET BY MOUTH EVERY DAY Maine Fulton NP amlodipine 10 mg tablet completed TAKE 1 TABLET BY MOUTH EVERY DAY. STOP HCTZ 09/06 - 11/01 Maine Fulton NP Eliquis 5 mg tablet completed TAKE 1 TABLE T BY MOUTH TWICE DAILY. DO NOT TAKE PLAVIX WITH ELIQUIS. AFTER FOOT SURGERY, STOP PLAVIX AND START ELIQUIS. 07/31 - 05/10 Blanca Li cephalexin 500 mg capsule completed Take 1 capsule by mouth three times a day eat single serving yogurt daily while taking antibiotic 07/06 - 11/01 Maine Fulton NP Trelegy Ellipta 100-62.5-25 mcg blister with device active INHALE 1 PUFF BY MOUTH EVERY DAY Terrie Lin Lantus Solostar U-100 Insulin 100 unit/mL (3 mL) insulin pen active Terrie Lin Novolog FlexPen U-100 Insulin 100 unit/mL (3 mL) insulin pen active Terrie Lin OneTouch Ultra Test strip active Terrie Lin gabapentin 300 mg capsule active 1 capsule by mouth three times a day Maine Fulton NP valacyclovir 500 mg tablet completed - 11/01 Maine Fulton NP atorvastatin 40 mg tablet active TAKE 1 TABLET BY MOUTH EVERY DAY AT NIGHT Maine Fulton NP clopidogrel 75 mg tablet active TAKE 1 TABLET BY MOUTH DAILY Maine Fulton NP metoprolol tartrate 25 mg tablet completed TAKE 1 TABLET BY MOUTH TWICE DAILY 04/15 - 06/23 Terrie Lin hydrochlorothiazide 25 mg tablet completed TAKE 1 TABLET BY MOUTH EVERY DAY 04/18 - 05/09 Mary Vincentenz Protonix 20 mg tablet,delayed release (DR/EC) completed 1 tablet twice a day - 06/23 Terrie Lin enalapril maleate 5 mg tablet completed TAKE 1 TABLET BY MOUTH TWICE DAILY 03/30 - 06/23 Terrie Lin amlodipine 10 mg tablet completed Take 1 tablet by mouth once a day 11/05 - 06/23 Terrie Lin Levemir FlexTouch U-100 Insuln 100 unit/mL (3 mL) insulin pen completed Use as directed 05/17 - 11/01 Maine Fulton NP Novolin 70-30 FlexPen U-100 100 unit/mL (70-30) insulin pen completed Inject twice a day as directed 05/17 - 11/01 Maine Fulton NP Ventolin HFA 90 mcg/actuation HFA aerosol inhaler completed 2 puff every four hours as needed 05/17 - 06/23 Terrie Lin gabapentin 600 mg tablet completed Take 1 tablet three times a day 05/17 - 06/23 Terrie Lin paroxetine HCl 40 mg tablet active Take 1 once a day 05/17 Siobhan Reynolds Geodon 80 mg capsule completed Take 1 tabl et once a day 05/17 - 06/23 Terrie Lin hydroxyzine HCl 25 mg tablet active Take 1 tablet once a day 05/17 Siobhan Reynolds pravastatin 40 mg tablet completed Take 1 tablet once a day 05/02 - 06/23 Terrie Lin pantoprazole 20 mg tablet,delayed release (DR/EC) completed Take 1 tablet once a day 05/17 - Annie Simpson MD Vasotec 5 mg tablet completed ONE TAB.TWIC E DAILY 07/02 - 03/30 Annie Simpson MD Pepcid 20 mg tablet active 1 tablet twice a day Forest Oliver MULTIVITAMINS ORAL CAPSULE completed ONE TAB. DAILY - 12/02 ForestClaribel Oliver INSULIN completed as directed - 11/01 Maine Fulton NP metoprolol tartrate 25 mg tablet completed TAKE 1 TABLET BY MOUTH TWICE DAILY 04/21 - 05/03 Annie Simpson MD SOCIAL HISTORY Date Observation Value Provider smoking, year quit 2014 Gallo hanks MD number of years as a smoker 35 a Gallo Diehl MD cigarette use yes Gallo Diehl MD smoking status Former smoker Gallo hernandez MD smoking, year quit 2014 Annie Simpson MD number of years as a smoker 35 a Annie Simpson MD cigarette use yes Annie colbert MD smoking status Former smoker Annie mayo MD smoking, year quit 2014 Shelley Askew ndall 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 number of years as a smoker 35 a Shelley Barriosll 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 APPRENTICE cigarette use yes Shelley Baylee 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 APPRENTICE smoking status Former smoker Shelley Riverada sindy 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 APPRENTICE smoking, year quit 2014 Maine Robledo 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 APPRENTICE number of years as a smoker 35 a Maine Bonareri 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 APPRENTICE cigarette use yes [place] Bonareri 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 APPRENTICE smoking status Former smoker [place] Alejandro ri 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 APPRENTICE smoking, year quit 2014 Terrie Will iams number of years as a smoker 35 a Terrie Riley cigarette use yes Terrie Riley smoking status Former smoker Terrie santillan social history E&M S moking History: P heriberto is a former smoker. Annie Simpson MD social history reviewed E&M revi ewed - no changes required Annie Simpson MD smoking, year quit 2014 Nanda Wallace is number of years as a smoker 35 a Nanda Delaney cigarette use yes Nanda Delaney smoking status Former smoker Nanda Delaney social history E&M S moking History: [place] louis is a former smoker. Annie Simpson MD social history reviewed E&M revi ewed - no changes required Annie Simpson MD smoking, year quit 2014 Elizabeth Darlingmitchell powell number of years as a smoker 35 a Elizabeth Denice cigarette use yes Elizabethmalika gomez smoking status Former smoker Elizabeth Munroebarbie jaime smoking, year quit 2014 Odalis Mcguire number of years as a smoker 35 a Odalis Mcguire cigarette use yes Odalis kauron smoking status Former smoker Odalis charles social history E&M Smoking Histo ry: [place] louis is a former smoker. Annie Simpson MD social history reviewed E&M revi ewed - no changes required Annie Simpson MD social history E&M S moking History: P heriberto is a former smoker. Annie Simpson MD social history reviewed E&M revi ewed - no changes required Annie Simpson MD smoking, year quit 2014 Elizabeth Webster andre number of years as a smoker 35 a Elizabeth Denice cigarette use yes Elizabeth Constance gomez smoking status Former smoker Elizabeth Munroebarbie jaime smoking status Former smoker Frandy blackmon social history E&M S moking History: [place] louis is a former smoker. Frandy Cee social history reviewed E&M revi ewed - no changes required Frandy Cee smoking, year quit 2014 ForestClaribel Matthewenson number of years as a smoker 35 a Forest Oliver cigarette use yes Forest Vipul talbot social history E&M S moking History: [place] louis is a former smoker. Annie Simpson MD social history reviewed E&M revi ewed - no changes required Annie Simpson MD smoking, year quit 2014 Tonsha Mo ss number of years as a smoker 35 a Tonsha Booth cigarette use yes Tonsha Booth smoking status Former smoker Tonsha Booth social history reviewed E&M revi ewed - no changes required Annie Simpson MD social history E&M S moking History: [place] louis is a former smoker. Annie iSmpson MD smoking, year quit 2014 Siobhan Glory s number of years as a smoker 35 a Siobhan Rodolfo cigarette use yes Siobhan Rodolfo smoking status Former smoker Siobhan Rodolfo number of grandchildren Annie Simpson MD social history reviewed E&M revi ewed - no changes required Annie Simpson MD social history E&M S moking History: [place] louis is a former smoker. Annie Simpson MD smoking, year quit 2014 Siobhan Glory s number of years as a smoker 35 a Siobhan Rodolfo cigarette use yes Siobhan Rodolfo smoking status Former smoker Siobhan Rodolfo social history reviewed E&M revi ewed - no changes required Annie Simpson MD number of years as a smoker 35 a ForestClaribel Olivre smoking, year quit 2014 Forest Oliver cigarette use yes Forest talbot smoking status Former smoker Forest Lozano FAMILY HISTORY Family Member Condition Mother Family History of Di abetes: INSURANCE PROVIDERS Payer name Policy type / Coverage type [place] red libertarian ID [facility] Other [facility] Other [facility] CHRONIC COMPLETE ASSURE (PPO C-SNP) Medicare [facility] COMPLETE CARE ST-001A (PPO C-SNP) Commercial insurance [employer] [id number] HEALTHCARE AND FAMILY SERVICES Medicaid 0 [id number] ADVANCE DIRECTIVES Name Date DISCUSSED - NO DECISION MADE TREATMENT PLAN Date Name Performer [id number],C, E cho 05/2021 C ONCLUSIONS: 1 . Technically difficult study, limited views secondary to poor acoustic windows. Interpretation is based on available limited v iews. Normal left ventricular systolic function. Normal left ventricular size. Normal left ventricular wall thickness. There is E t o A wave reversal consistent with impaired LV relaxation. Normal E/E` 7.7 E/E': 7.7 Left ventricular ejection fraction is m easured at 65 %. 2 . Normal right ventricular size. Normal right ventricular systolic function. 3 . Aortic valve leaflets appear structurally normal. Velocities, as well as gradients across the aortic valve are normal. Mild a ortic valve regurgitation. Annie Simpson MD [id number],S,N eeds CT done, stress was negative. May need mamogram Annie Simpson MD [id number],C, N o YAMIL Annie Simpson MD [id number],C, H er updated medication list for this problem includes: Enalapril Maleate 5 Mg Tablet (Enalapril maleate) ..... Take 1 tablet by mouth twice daily Amlodipine 10 Mg Tablet (Amlodipine) ..... Take 1 tablet by mouth once a day BP today: 153/79 P rior BP: 120/87 (01/29/2022) Annie Simpson MD [id number],C, E cho 06/01/21 CONCLUSIONS: 1 . Technically difficult study, limited views secondary to poor acoustic windows. Interpretation is based on available limited v iews. Normal left ventricular systolic function. Normal left ventricular size. Normal left ventricular wall thickness. There is E t o A wave reversal consistent with impaired LV relaxation. Normal E/E` 7.7 E/E': 7.7 Left ventricular ejection fraction is m easured at 65 %. 2 . Normal right ventricular size. Normal right ventricular systolic function. 3 . Aortic valve leaflets appear structurally normal. Velocities, as well as gradients across the aortic valve are normal. Mild a ortic valve regurgitation. January 29, 2022 C heck nuclear stress. April 14, 2022 N uclear stress done 02/26/22. No ischemia, hyperdynamic EF Annie Simpson MD [id number],C, C heck echo C T [facility] August 01, 2019 T he ascending thoracic aorta measures 3.[address] 10/28/2019 [facility] prominent lymph nodes about t he esophagus. The heart is not enlarged. No thoracic aortic a neurysm or dissection. The left vertebral artery arises directly f rom the aortic arch. There January 29, [address] to evaluate aorta. CT was denied. WIll reorder Annie Simpson MD [id number],C, N o YAMIL Annie Simpson MD [id number],C, B P today: 120/87 P rior BP: 112/69 (01/15/2022) Her updated medication list for this problem includes: Chlorthalidone 25 Mg Tablet (Chlorthalidone) ..... Take 1 tablet by mouth once a day Metoprolol Tartrate 25 Mg Tablet (Metoprolol tartrate) ..... Take 1 tablet by mouth twice daily Amlodipine 5 Mg Tablet (Amlodipine) ..... Take 1 tablet by mouth once a day Enalapril Maleate 5 Mg Tablet (Enalapril maleate) ..... Take 1 tablet by mouth twice daily Annie Simpson MD [id number],C, C heck echo C [facility] August 01, 2019 T he ascending thoracic aorta measures 3.[address] 10/28/2019 [facility] prominent lymph nodes about t he esophagus. The heart is not enlarged. No thoracic aortic a neurysm or dissection. The left vertebral artery arises directly f rom the aortic arch. There January 29, [address] to evaluate aorta. Annie Simpson MD [id number],C, E elizabeth 05/2021 C ONCLUSIONS: 1 . Technically difficult study, limited views secondary to poor acoustic windows. Interpretation is based on available limited v iews. Normal left ventricular systolic function. Normal left ventricular size. Normal left ventricular wall thickness. There is E t o A wave reversal consistent with impaired LV relaxation. Normal E/E` 7.7 E/E': 7.7 Left ventricular ejection fraction is m easured at 65 %. 2 . Normal right ventricular size. Normal right ventricular systolic function. 3 . Aortic valve leaflets appear structurally normal. Velocities, as well as gradients across the aortic valve are normal. Mild a ortic valve regurgitation. Annie Simpson MD [id number],C, E cho 06/01/21 CONCLUSIONS: 1 . Technically difficult study, limited views secondary to poor acoustic windows. Interpretation is based on available limited v iews. Normal left ventricular systolic function. Normal left ventricular size. Normal left ventricular wall thickness. There is E t o A wave reversal consistent with impaired LV relaxation. Normal E/E` 7.7 E/E': 7.7 Left ventricular ejection fraction is m easured at 65 %. 2 . Normal right ventricular size. Normal right ventricular systolic function. 3 . Aortic valve leaflets appear structurally normal. Velocities, as well as gradients across the aortic valve are normal. Mild a ortic valve regurgitation. January 29, 2022 C heck nuclear stress. Annie Simpson MD [id number],C, S tarted on Nebulizer for COPD / emphysema. Has noted improvement. No PFTs. April 24, 2021 M ay be related to the fact that she is off nebulizer is why she has CP recommended her to resume. January 29, 2022 L ots of coughing due to COPD, probably chest wall related. Annie Simpson MD [id number],C,E cho 06/01/21 CONCLUSIONS: 1 . Technically difficult study, limited views secondary to poor acoustic windows. Interpretation is based on available limited v iews. Normal left ventricular systolic function. Normal left ventricular size. Normal left ventricular wall thickness. There is E t o A wave reversal consistent with impaired LV relaxation. Normal E/E` 7.7 E/E': 7.7 Left ventricular ejection fraction is m easured at 65 %. 2 . Normal right ventricular size. Normal right ventricular systolic function. 3 . Aortic valve leaflets appear structurally normal. Velocities, as well as gradients across the aortic valve are normal. Mild a ortic valve regurgitation. Annie Simpson MD [id number],C,S uspect COPD issue vs GERD. She has had prior cath with patent CORS. Having indigestion sxs, could be acid reflux. Will give her Protonix, have her come back in 2 weeks and let me know how she feels. prior cath 2016 I MPRESSION: 1. Widely patent coronary vasculature without evidence of any significant flow-limiting coronary artery d isease with virtually normal coronaries. 2 . Normal LV function. 3 . Normal renals. 4 . Systemic hypertension. 5 . Normal LVEDP. O verall, I think that her primary issue is uncontrolled systemic hypertension because her elevated t roponins may be related to LV stress during her initial chronic obstructive pulmonary disease p resentation and hence medical management is recommended. Annie Simpson MD [id number],C, H er updated medication list for this problem includes: Enalapril Maleate 5 Mg Tablet (Enalapril maleate) ..... Take 1 tablet by mouth twice daily Amlodipine Besylate 5mg Tablets (Amlodipine besylate) ..... Take 1 tablet by mouth daily Chlorthalidone 25mg Tablets (Chlorthalidone) ..... Take 1 tablet by mouth daily Metoprolol Tartrate 25 Mg Tablet (Metoprolol tartrate) ..... Take 1 tablet twice daily BP today: 131/66 P rior BP: 111/66 (04/24/2021) Annie Simpson MD [id number],C,E cho 05/2021 C ONCLUSIONS: 1 . Technically difficult study, limited views secondary to poor acoustic windows. Interpretation is based on available limited v iews. Normal left ventricular systolic function. Normal left ventricular size. Normal left ventricular wall thickness. There is E t o A wave reversal consistent with impaired LV relaxation. Normal E/E` 7.7 E/E': 7.7 Left ventricular ejection fraction is m easured at 65 %. 2 . Normal right ventricular size. Normal right ventricular systolic function. 3 . Aortic valve leaflets appear structurally normal. Velocities, as well as gradients across the aortic valve are normal. Mild a ortic valve regurgitation. Annie Simpson MD [id number],C, N o YAMIL Simposn MD [id number],C, N o YAMIL Simpson MD [id number],C, B P today: 111/66 P rior BP: 132/80 (05/28/2020) Her updated medication list for this problem includes: Enalapril Maleate 5 Mg Tablet (Enalapril maleate) ..... Take 1 tablet by mouth twice daily Amlodipine Besylate 5mg Tablets (Amlodipine besylate) ..... Take 1 tablet by mouth daily Chlorthalidone 25mg Tablets (Chlorthalidone) ..... Take 1 tablet by mouth daily Metoprolol Tartrate 25 Mg Tablet (Metoprolol tartrate) ..... Take 1 tablet twice daily Annie Simpson MD [id number],C,C heck echo C T [facility] August 01, 2019 T he ascending thoracic aorta measures 3.[address] 10/28/2019 [facility] prominent lymph nodes about t he esophagus. The heart is not enlarged. No thoracic aortic a neurysm or dissection. The left vertebral artery arises directly f rom the aortic arch. There Annie Simpson MD [id number],S,A ortic valve leaflets appear structurally normal. Velocities, as well as gradients across the aortic valve are normal. Mild to m oderate aortic valve regurgitation. Check echo Annie Simpson MD [id number],C, S tarted on Nebulizer for COPD / emphysema. Has noted improvement. No PFTs. April 24, 2021 M ay be related to the fact that she is off nebulizer is why she has CP recommended her to resume. Annie Simpson MD [id number],Danyell,S uspect COPD issue prior cath 2017 I MPRESSION: 1. Widely patent coronary vasculature without evidence of any significant flow-limiting coronary artery d isease with virtually normal coronaries. 2 . Normal LV function. 3 . Normal renals. 4 . Systemic hypertension. 5 . Normal LVEDP. O verall, I think that her primary issue is uncontrolled systemic hypertension because her elevated t roponins may be related to LV stress during her initial chronic obstructive pulmonary disease p resentation and hence medical management is recommended. Annie Simpson MD Cardiology: H er updated medication list for this problem includes: Losartan 25 Mg Tablet (Losartan) ..... Take 1 tablet by mouth once a day Amlodipine 10 Mg Tablet (Amlodipine) ..... Take 1 tablet by mouth once a day BP today: 135/81 P rior BP: 144/80 (04/06/2024) Labs Reviewed: C reat: 0.91 (07/01/2023) Gallo Diehl MD Cardiology: S he states she has been having issues with increased SOB mainly while doing things like her laundry and light house work. She is wheelchair bound. She has a known PFO with rt to left shunt an h/o CVA in the past. Her pulmonogist told her that her SOB was due to this shunt. assessment of PFO closure. She has cryptogenic CVA, found to have PFO on JOSE, has been on OAC. Loop recorder was implanted and it showed no AFib. She is having difficulty in taking OAC with frequent bruising. 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 It's reasonable to proceed with PFO closure, will get it scheduled at [facility] Gallo Diehl MD Cardiology:SChedule for PFO closure at [facility] P will be admitted for 1 night for observation Gallo Diehl MD Cardiology:SChedule for PFO closure at [facility] t will be admitted for 1 night for observation Gallo Diehl MD Cardiology:home BP r eviewed Her updated medication list for this problem includes: Losartan 25 Mg Tablet (Losartan) ..... Take 1 tablet by mouth once a day Amlodipine 10 Mg Tablet (Amlodipine) ..... Take 1 tablet by mouth once a day BP today: 144/80 P rior BP: 145/75 (02/09/2024) Labs Reviewed: C reat: 0.91 (07/01/2023) This visit has been a part of the consistent, comprehensive, and ongoing management of the chronic medical condition(s) listed above for the patient. Chris Garcia Cardiology:pending a PFO closure with [facility] N ote from 02-09-2024 a ssessment of PFO closure. She has cryptogenic CVA, found to have PFO on JOSE, has been on OAC. Loop recorder was implanted and it showed no AFib. She is having difficulty in taking OAC with frequent bruising. 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 It's reasonable to proceed with PFO closure, will get it scheduled at [facility]. This visit has been a part of the consistent, comprehensive, and ongoing management of the chronic medical condition(s) listed above for the patient. Chris Garcia Cardiology:home BP r eviewed Her updated medication list for this problem includes: Losartan 25 Mg Tablet (Losartan) ..... Take 1 tablet by mouth once a day Amlodipine 10 Mg Tablet (Amlodipine) ..... Take 1 tablet by mouth once a day BP today: 144/80 P rior BP: 145/75 (02/09/2024) Labs Reviewed: C reat: 0.91 (07/01/2023) Annie Simpson MD Cardiology:treated a t [facility] for NHL, planning to have port removed, okay to be off her eliquis for port removal Annie Simpson MD Cardiology:She state s she has been having issues with increased SOB mainly while doing things like her laundry and light house work. She is wheelchair bound. She has a known PFO with rt to left shunt an h/o CVA in the past. Her pulmonogist told her that her SOB was due to this shunt. assessment of PFO closure. She has cryptogenic CVA, found to have PFO on JOSE, has been on OAC. Loop recorder was implanted and it showed no AFib. She is having difficulty in taking OAC with frequent bruising. 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 It's reasonable to proceed with PFO closure, will get it scheduled at [facility] Annie Simpson MD Cardiology:pending a PFO closure with [facility] N ote from 02-09-2024 a ssessment of PFO closure. She has cryptogenic CVA, found to have PFO on JOSE, has been on OAC. Loop recorder was implanted and it showed no AFib. She is having difficulty in taking OAC with frequent bruising. 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 It's reasonable to proceed with PFO closure, will get it scheduled at [facility]. Annie Simpson MD Cardiology Gallo Diehl MD Cardiology Gallo Diehl MD Cardiology: S ummary & Diagnosis F ew events were noted during the study, however, the amount of the events did not constitute a diagnosis of YAMIL per A ASM guidelines. N o YAMIL Shelley Beach NP Cardiology: C kadenk echo C T [facility] August 01, 2019 T he ascending thoracic aorta measures 3.[address] 10/28/2019 [facility] prominent lymph nodes about t he esophagus. The heart is not enlarged. No thoracic aortic a neurysm or dissection. The left vertebral artery arises directly f rom the aortic arch. There January 29, [address] to evaluate aorta. CT was denied. WIll reorder Shelley Beach NP Cardiology:OK TO LONNIE DIEHL TO EVAL FOR PFO CLOSURE Shelley Beach NP Cardiology: Kurtis cho 06/01/21 CONCLUSIONS: 1 . Technically difficult study, limited views secondary to poor acoustic windows. Interpretation is based on available limited v iews. Normal left ventricular systolic function. Normal left ventricular size. Normal left ventricular wall thickness. There is E t o A wave reversal consistent with impaired LV relaxation. Normal E/E` 7.7 E/E': 7.7 Left ventricular ejection fraction is m easured at 65 %. 2 . Normal right ventricular size. Normal right ventricular systolic function. 3 . Aortic valve leaflets appear structurally normal. Velocities, as well as gradients across the aortic valve are normal. Mild a ortic valve regurgitation. January 29, 2022 C heck nuclear stress. April 14, 2022 N uclear stress done 02/26/22. No ischemia, hyperdynamic EF August 01, 2023 H ad JOSE done on 07/19/23 C ONCLUSIONS: 1 . Normal left ventricular size and systolic function. Normal left ventricular systolic function. LV Ejection Fraction is 60 %. Mild l eft ventricular hypertrophy. 2 . Normal right ventricular size. Normal right ventricular systolic function. 3 . Color flow Doppler and pulse Doppler interrogation reveal predominantly right to left shunting. There was a umole-hi-cjhy s boothe at rest by contrast study with agitated saline, consistent with patent foramen ovale. 4 . MIld MR and AR. 5 . No clot or thrombus noted in LA/LV/ELIECER/RV/RA. Maine Fulton NP Cardiology: S ummary & Diagnosis F ew events were noted during the study, however, the amount of the events did not constitute a diagnosis of YAMIL per A ASM guidelines. N o YAMIL Maine Fulton NP Cardiology: s he had cath done 2016 I MPRESSION: 1 . Widely patent coronary vasculature without evidence of any significant flow-limiting coronary artery d isease with virtually normal coronaries. 2 . Normal LV function. 3 . Normal renals. 4 . Systemic hypertension. 5 . Normal LVEDP. November 02, 2023 n o current symptoms Maine Fulton NP Cardiology:This visi t has been a part of the consistent, comprehensive, and ongoing management of the chronic medical condition(s) listed above for the patient. R EVIEWED USE OF ELIQUIS FOR HX OF CVA AND HOLE IN HEART AND FOR POSSIBLE AFIB apparently,g had stroke in 2022, concerned regarding cryptogenic stroke, will need ILR implant to rule out AFIB, will plan for JOSE as well to assess for ELIECER. We discussed about IAS closure with amplatzer type device and at present have elected to use AC rather than do another procedure. JOSE from 07/19/23 CONCLUSIONS: 1 . Normal left ventricular size and systolic function. Normal left ventricular systolic function. LV Ejection Fraction is 60 %. Mild l eft ventricular hypertrophy. 2 . Normal right ventricular size. Normal right ventricular systolic function. 3 . Color flow Doppler and pulse Doppler interrogation reveal predominantly right to left shunting. There was a vywuu-oe-lnwt s boothe at rest by contrast study with agitated saline, consistent with patent foramen ovale. 4 . MIld MR and AR. 5 . No clot or thrombus noted in LA/LV/ELIECER/RV/RA. Maine Fulton NP Cardiology: D iscussion of benefits for remote patient monitoring took place. Patient gives consent for remote monitoring of physiologic parameters including, but not limited to, weight, blood pressure, pulse oximetry, respiratory flow rate. C urrently not taking BP meds at home she had episode of hypotension, was [facility] his visit has been a part of the consistent, comprehensive, and ongoing management of the chronic medical condition(s) listed above for the patient. D iscussion of benefits for remote patient monitoring took place. Patient gives consent for remote monitoring of physiologic parameters including, but not limited to, weight, blood pressure, pulse oximetry, respiratory flow rate. November 02, 2023 BP today: 136/78 P rior BP: 158/94 (08/01/2023) Labs Reviewed: C reat: 0.91 (07/01/2023) Maine Fulton NP Cardiology:Upon revi ew of invasive and noninvasive testing and recent exam the patient is an acceptable candidate for the planned orthopedic bilteral foot surgical procedure recommend to maintain his blood pressure range of 110 to 140 mmHg and a heart rate of 60-80 B p.m.. It is okay to use IV beta blockers calcium channel blockers nitrates and afterload reducing agents to maintain the aforementioned hemodynamics parameters. Tele monitoring and EKG should be done if the patient has arrhythmia during procedure MY MAIN CONCERN IS GOING TO BE REGARDING DVT PROPHYLAXIS SHE HAS PFO IDENTIFIED ON JOSE AND SHE HAD A STROKE. I WILL RECOMMEND SHE START ELIQUIS 5MG BID SINCE THERE HAS BEEN A CVA, THERE IS A POSSIBLE CAUSE WHICH IS THE SHUNT. WE HAVE AN ILR YET TO DEMONSTRATE ANY AFIB. ELIQUIS CAN BE STARTED POST FOOT SURGERY IT WILL ALSO BE USEFUL FOR DVT PROPHYLAXIS WELL STROKE PROHYLAXIS. I AM NOT OK WITH DVT DOSE LOVENOX I THINK SHE WILL NEED FULL SYSTEMIC AC. Annie Simpson MD Cardiology: E cho 06/01/21 CONCLUSIONS: 1 . Technically difficult study, limited views secondary to poor acoustic windows. Interpretation is based on available limited v iews. Normal left ventricular systolic function. Normal left ventricular size. Normal left ventricular wall thickness. There is E t o A wave reversal consistent with impaired LV relaxation. Normal E/E` 7.7 E/E': 7.7 Left ventricular ejection fraction is m easured at 65 %. 2 . Normal right ventricular size. Normal right ventricular systolic function. 3 . Aortic valve leaflets appear structurally normal. Velocities, as well as gradients across the aortic valve are normal. Mild a ortic valve regurgitation. January 29, 2022 C heck nuclear stress. April 14, 2022 N uclear stress done 02/26/22. No ischemia, hyperdynamic EF August 01, 2023 H ad JOSE done on 07/19/23 C ONCLUSIONS: 1 . Normal left ventricular size and systolic function. Normal left ventricular systolic function. LV Ejection Fraction is 60 %. Mild l eft ventricular hypertrophy. 2 . Normal right ventricular size. Normal right ventricular systolic function. 3 . Color flow Doppler and pulse Doppler interrogation reveal predominantly right to left shunting. There was a ygmmr-bk-vibv s boothe at rest by contrast study with agitated saline, consistent with patent foramen ovale. 4 . MIld MR and AR. 5 . No clot or thrombus noted in LA/LV/ELIECER/RV/RA. Annie Simpson MD Cardiology: S ummary & Diagnosis F ew events were noted during the study, however, the amount of the events did not constitute a diagnosis of YAMIL per A ASM guidelines. N o YAMIL Annie Simpson MD Cardiology: s he had cath done 2016 I MPRESSION: 1 . Widely patent coronary vasculature without evidence of any significant flow-limiting coronary artery d isease with virtually normal coronaries. 2 . Normal LV function. 3 . Normal renals. 4 . Systemic hypertension. 5 . Normal LVEDP. Annie Simpson MD Cardiology:aiden y had stroke in 2022, concerned regarding cryptogenic stroke, will need ILR implant to rule out AFIB, will plan for JOSE as well to assess for ELIECER. We discussed about IAS closure with amplatzer type device and at present have elected to use AC rather than do another procedure. JOSE from 07/19/23 CONCLUSIONS: 1 . Normal left ventricular size and systolic function. Normal left ventricular systolic function. LV Ejection Fraction is 60 %. Mild l eft ventricular hypertrophy. 2 . Normal right ventricular size. Normal right ventricular systolic function. 3 . Color flow Doppler and pulse Doppler interrogation reveal predominantly right to left shunting. There was a ywdvg-sm-[id number] s boothe at rest by contrast study with agitated saline, consistent with patent foramen ovale. 4 . MIld MR and AR. 5 . No clot or thrombus noted in LA/LV/ELIECER/RV/RA. Annie Simpson MD Cardiology:Discussio n of benefits for remote patient monitoring took place. Patient gives consent for remote monitoring of physiologic parameters including, but not limited to, weight, blood pressure, pulse oximetry, respiratory flow rate. C urrently not taking BP meds at home she had episode of hypotension, was taken off meds at [facility] Annie Simpson MD Cardiology:Summary & Diagnosis F ew events were noted during the study, however, the amount of the events did not constitute a diagnosis of YAMIL per A ASM guidelines. N o YAMIL Annie Simpson MD Cardiology:aiden y had stroke in 2022, concerned regarding cryptogenic stroke, will need ILR implant to rule out AFIB, will plan for JOSE as well to assess for ELIECER Annie Simpson MD Cardiology: E cho 06/01/21 CONCLUSIONS: 1 . Technically difficult study, limited views secondary to poor acoustic windows. Interpretation is based on available limited v iews. Normal left ventricular systolic function. Normal left ventricular size. Normal left ventricular wall thickness. There is E t o A wave reversal consistent with impaired LV relaxation. Normal E/E` 7.7 E/E': 7.7 Left ventricular ejection fraction is m easured at 65 %. 2 . Normal right ventricular size. Normal right ventricular systolic function. 3 . Aortic valve leaflets appear structurally normal. Velocities, as well as gradients across the aortic valve are normal. Mild a ortic valve regurgitation. January 29, 2022 C heck nuclear stress. April 14, 2022 N uclear stress done 02/26/22. No ischemia, hyperdynamic EF Annie Simpson MD Cardiology:she had c ath done 2016 I MPRESSION: 1 . Widely patent coronary vasculature without evidence of any significant flow-limiting coronary artery d isease with virtually normal coronaries. 2 . Normal LV function. 3 . Normal renals. 4 . Systemic hypertension. 5 . Normal LVEDP. Annie Simpson MD Cardiology[RxRsp]: E cho 05/2021 C ONCLUSIONS: 1 . Technically difficult study, limited views secondary to poor acoustic windows. Interpretation is based on available limited v iews. Normal left ventricular systolic function. Normal left ventricular size. Normal left ventricular wall thickness. There is E t o A wave reversal consistent with impaired LV relaxation. Normal E/E` 7.7 E/E': 7.7 Left ventricular ejection fraction is m easured at 65 %. 2 . Normal right ventricular size. Normal right ventricular systolic function. 3 . Aortic valve leaflets appear structurally normal. Velocities, as well as gradients across the aortic valve are normal. Mild a ortic valve regurgitation. Annie Simpson MD Cardiology[RxRsp]:Ne eds CT done, stress was negative. May need mamogram Annie Simpson MD Cardiology[RxRsp]: N o YAMIL Annie Simpson MD Cardiology[RxRsp]: H er updated medication list for this problem includes: Enalapril Maleate 5 Mg Tablet (Enalapril maleate) ..... Take 1 tablet by mouth twice daily Amlodipine 10 Mg Tablet (Amlodipine) ..... Take 1 tablet by mouth once a day BP today: 153/79 P rior BP: 120/87 (01/29/2022) Annie Simpson MD Cardiology[RxRsp]: E cho 06/01/21 CONCLUSIONS: 1 . Technically difficult study, limited views secondary to poor acoustic windows. Interpretation is based on available limited v iews. Normal left ventricular systolic function. Normal left ventricular size. Normal left ventricular wall thickness. There is E t o A wave reversal consistent with impaired LV relaxation. Normal E/E` 7.7 E/E': 7.7 Left ventricular ejection fraction is m easured at 65 %. 2 . Normal right ventricular size. Normal right ventricular systolic function. 3 . Aortic valve leaflets appear structurally normal. Velocities, as well as gradients across the aortic valve are normal. Mild a ortic valve regurgitation. January 29, 2022 C heck nuclear stress. April 14, 2022 N uclear stress done 02/26/22. No ischemia, hyperdynamic EF Annie Simpson MD Cardiology[RxRsp]: Danyell rasmussen echo C T [facility] August 01, 2019 T he ascending thoracic aorta measures 3.3 cm. CT 10/28/2019 [facility] prominent lymph nodes about t he esophagus. The heart is not enlarged. No thoracic aortic a neurysm or dissection. The left vertebral artery arises directly f rom the aortic arch. There January 29, [address] to evaluate aorta. CT was denied. WIll reorder Annie Simpson MD Cardiology: N o YAMIL Annie Simpson MD Cardiology: B P today: 120/87 P rior BP: 112/69 (01/15/2022) Her updated medication list for this problem includes: Chlorthalidone 25 Mg Tablet (Chlorthalidone) ..... Take 1 tablet by mouth once a day Metoprolol Tartrate 25 Mg Tablet (Metoprolol tartrate) ..... Take 1 tablet by mouth twice daily Amlodipine 5 Mg Tablet (Amlodipine) ..... Take 1 tablet by mouth once a day Enalapril Maleate 5 Mg Tablet (Enalapril maleate) ..... Take 1 tablet by mouth twice daily Annie Simpson MD Cardiology: Danyell alfonsok echo C T SL August 01, 2019 T he ascending thoracic aorta measures 3.[address] 10/28/2019 [facility] prominent lymph nodes about t he esophagus. The heart is not enlarged. No thoracic aortic a neurysm or dissection. The left vertebral artery arises directly f rom the aortic arch. There January 29, [address] to evaluate aorta. Annie Simpson MD Cardiology: E cho 05/2021 C ONCLUSIONS: 1 . Technically difficult study, limited views secondary to poor acoustic windows. Interpretation is based on available limited v iews. Normal left ventricular systolic function. Normal left ventricular size. Normal left ventricular wall thickness. There is E t o A wave reversal consistent with impaired LV relaxation. Normal E/E` 7.7 E/E': 7.7 Left ventricular ejection fraction is m easured at 65 %. 2 . Normal right ventricular size. Normal right ventricular systolic function. 3 . Aortic valve leaflets appear structurally normal. Velocities, as well as gradients across the aortic valve are normal. Mild a ortic valve regurgitation. Annie Simpson MD Cardiology: E cho 06/01/21 CONCLUSIONS: 1 . Technically difficult study, limited views secondary to poor acoustic windows. Interpretation is based on available limited v iews. Normal left ventricular systolic function. Normal left ventricular size. Normal left ventricular wall thickness. There is E t o A wave reversal consistent with impaired LV relaxation. Normal E/E` 7.7 E/E': 7.7 Left ventricular ejection fraction is m easured at 65 %. 2 . Normal right ventricular size. Normal right ventricular systolic function. 3 . Aortic valve leaflets appear structurally normal. Velocities, as well as gradients across the aortic valve are normal. Mild a ortic valve regurgitation. January 29, 2022 C heck nuclear stress. Annie Simpson MD Cardiology: S tarted on Nebulizer for COPD / emphysema. Has noted improvement. No PFTs. April 24, 2021 M ay be related to the fact that she is off nebulizer is why she has CP recommended her to resume. January 29, 2022 L ots of coughing due to COPD, probably chest wall related. Annie Simpson MD Cardiology:Echo CONCLUSIONS: 1 . Technically difficult study, limited views secondary to poor acoustic windows. Interpretation is based on available limited v iews. Normal left ventricular systolic function. Normal left ventricular size. Normal left ventricular wall thickness. There is E t o A wave reversal consistent with impaired LV relaxation. Normal E/E` 7.7 E/E': 7.7 Left ventricular ejection fraction is m easured at 65 %. 2 . Normal right ventricular size. Normal right ventricular systolic function. 3 . Aortic valve leaflets appear structurally normal. Velocities, as well as gradients across the aortic valve are normal. Mild a ortic valve regurgitation. Annie Simpson MD Cardiology:Suspect C OPD issue vs GERD. She has had prior cath with patent CORS. Having indigestion sxs, could be acid reflux. Will give her Protonix, have her come back in 2 weeks and let me know how she feels. prior cath 2017 I MPRESSION: 1. Widely patent coronary vasculature without evidence of any significant flow-limiting coronary artery d isease with virtually normal coronaries. 2 . Normal LV function. 3 . Normal renals. 4 . Systemic hypertension. 5 . Normal LVEDP. O verall, I think that her primary issue is uncontrolled systemic hypertension because her elevated t roponins may be related to LV stress during her initial chronic obstructive pulmonary disease p resentation and hence medical management is recommended. Annie Simpson MD Cardiology: H er updated medication list for this problem includes: Enalapril Maleate 5 Mg Tablet (Enalapril maleate) ..... Take 1 tablet by mouth twice daily Amlodipine Besylate 5mg Tablets (Amlodipine besylate) ..... Take 1 tablet by mouth daily Chlorthalidone 25mg Tablets (Chlorthalidone) ..... Take 1 tablet by mouth daily Metoprolol Tartrate 25 Mg Tablet (Metoprolol tartrate) ..... Take 1 tablet twice daily BP today: 131/66 P rior BP: 111/66 (04/24/2021) Annie Simpson MD Cardiology:Echo 05/27 022 C ONCLUSIONS: 1 . Technically difficult study, limited views secondary to poor acoustic windows. Interpretation is based on available limited v iews. Normal left ventricular systolic function. Normal left ventricular size. Normal left ventricular wall thickness. There is E t o A wave reversal consistent with impaired LV relaxation. Normal E/E` 7.7 E/E': 7.7 Left ventricular ejection fraction is m easured at 65 %. 2 . Normal right ventricular size. Normal right ventricular systolic function. 3 . Aortic valve leaflets appear structurally normal. Velocities, as well as gradients across the aortic valve are normal. Mild a ortic valve regurgitation. Annie Simpson MD Cardiology: N o YAMIL Simpson MD Cardiology: N o YAMIL Simpson MD Cardiology: B P today: 111/66 P rior BP: 132/80 (05/28/2020) Her updated medication list for this problem includes: Enalapril Maleate 5 Mg Tablet (Enalapril maleate) ..... Take 1 tablet by mouth twice daily Amlodipine Besylate 5mg Tablets (Amlodipine besylate) ..... Take 1 tablet by mouth daily Chlorthalidone 25mg Tablets (Chlorthalidone) ..... Take 1 tablet by mouth daily Metoprolol Tartrate 25 Mg Tablet (Metoprolol tartrate) ..... Take 1 tablet twice daily Annie Simpson MD Cardiology:Check ech o C T [facility] August 01, 2019 T he ascending thoracic aorta measures 3.[address] 10/28/2019 [facility] prominent lymph nodes about t he esophagus. The heart is not enlarged. No thoracic aortic a neurysm or dissection. The left vertebral artery arises directly f rom the aortic arch. There Annie Simpson MD Cardiology:Aortic va lve leaflets appear structurally normal. Velocities, as well as gradients across the aortic valve are normal. Mild to m oderate aortic valve regurgitation. Check echo Annie Simpson MD Cardiology: S tarted on Nebulizer for COPD / emphysema. Has noted improvement. No PFTs. April 24, 2021 M ay be related to the fact that she is off nebulizer is why she has CP recommended her to resume. Annie Simpson MD Cardiology:Suspect C OPD issue prior cath 2017 I MPRESSION: 1. Widely patent coronary vasculature without evidence of any significant flow-limiting coronary artery d isease with virtually normal coronaries. 2 . Normal LV function. 3 . Normal renals. 4 . Systemic hypertension. 5 . Normal LVEDP. O vercliff, I think that her primary issue is uncontrolled systemic hypertension because her elevated t roponins may be related to LV stress during her initial chronic obstructive pulmonary disease p resentation and hence medical management is recommended. Annie Simpson MD Cardiology Follow up :CT [facility] August 01, 2019 T he ascending thoracic aorta measures 3.[address] 10/28/2019 [facility] prominent lymph nodes about t he esophagus. The heart is not enlarged. No thoracic aortic a neurysm or dissection. The left vertebral artery arises directly f rom the aortic arch. There Annie Simpson MD Cardiology Follow up :IMPRESSION: 1 . Widely patent coronary vasculature without evidence of any significant flow-limiting coronary artery d isease with virtually normal coronaries. 2 . Normal LV function. 3 . Normal renals. 4 . Systemic hypertension. 5 . Normal LVEDP. O ana paula, I think that her primary issue is uncontrolled systemic hypertension because her elevated troponins may be related to LV stress during her initial chronic obstructive pulmonary disease p resentation and hence medical management is recommended. Annie Simpson MD Cardiology Follow up : P revious echo done in [place], current echo seems somewhat progressed. Echo 06/27/2019 CONCLUSIONS: 1 . There is septal hypertrophy without outflow tract obstruction. Normal left ventricular systolic function. Normal left v entricular size. Normal left ventricular wall thickness. E/E': 6.3. Left ventricular ejection fraction is measured at 65 %. 2 . Normal right ventricular size. Normal right ventricular systolic function. 3 . There is trace physiologic mitral valve regurgitation. 4 . Aortic valve leaflets appear structurally normal. Velocities, as well as gradients across the aortic valve are normal. Mild to m oderate aortic valve regurgitation. 5 . There is trace physiologic tricuspid valve regurgitation. Annie Simpson MD Cardiology Follow up : N o YAMIL Annie Simpson MD Cardiology Follow up : S tarted on Nebulizer for COPD / emphysema. Has noted improvement. No PFTs. Annie Simpson MD Cardiology Follow up : B P today: 132/80 P rior BP: 122/72 (11/09/2019) Her updated medication list for this problem includes: Amlodipine Besylate 5mg Tablets (Amlodipine besylate) ..... Take 1 tablet by mouth daily Chlorthalidone 25mg Tablets (Chlorthalidone) ..... Take 1 tablet by mouth daily Vasotec 5 Mg Oral Tablet (Enalapril maleate) ..... One tab.twice daily Metoprolol Tartrate 25 Mg Tablet (Metoprolol tartrate) ..... Take 1 tablet twice daily Annie Simpson MD Cardiology - PHYSICI AL EXAM:Few events were noted during the study, however, the amount of the events did not constitute a diagnosis of YAMIL per A ASM guidelines. Annie Simpson MD Cardiology - PHYSICI AL EXAM: H er updated medication list for this problem includes: Amlodipine Besylate 5mg Tablets (Amlodipine besylate) ..... Take 1 tablet by mouth daily Chlorthalidone 25 Mg Tablet (Chlorthalidone) ..... Take 1 tablet every day Vasotec 5 Mg Oral Tablet (Enalapril maleate) ..... One tab.twice daily Metoprolol Tartrate 25 Mg Tablet (Metoprolol tartrate) ..... Take 1 tablet twice daily BP today: 122/72 P rior BP: 121/67 (07/13/2019) Annie Simpson MD Cardiology - PHYSICI AL EXAM:Started on Nebulizer for COPD / emphysema. Has noted improvement. No PFTs. Annie Simpson MD Cardiology - PHYSICI AL EXAM:Likely COPD related. W orkup for non-cardiac CP. I mproved with nebulizer. Annie Simpson MD Telehealth:Workup for non-cardia c CP. Cameron Riojas Telehealth:No YAMIL Cameron Riojas Telehealth: E cho 06/27/2019 CONCLUSIONS: 1 . There is septal hypertrophy without outflow tract obstruction. Normal left ventricular systolic function. Normal left v entricular size. Normal left ventricular wall thickness. E/E': 6.3. Left ventricular ejection fraction is measured at 65 %. 2 . Normal right ventricular size. Normal right ventricular systolic function. 3 . There is trace physiologic mitral valve regurgitation. 4 . Aortic valve leaflets appear structurally normal. Velocities, as well as gradients across the aortic valve are normal. Mild to m oderate aortic valve regurgitation. 5 . There is trace physiologic tricuspid valve regurgitation. Cameron Beulah Telehealth: P revious echo done in [place], current echo seems somewhat progressed. Echo 06/27/2019 CONCLUSIONS: 1 . There is septal hypertrophy without outflow tract obstruction. Normal left ventricular systolic function. Normal left v entricular size. Normal left ventricular wall thickness. E/E': 6.3. Left ventricular ejection fraction is measured at 65 %. 2 . Normal right ventricular size. Normal right ventricular systolic function. 3 . There is trace physiologic mitral valve regurgitation. 4 . Aortic valve leaflets appear structurally normal. Velocities, as well as gradients across the aortic valve are normal. Mild to m oderate aortic valve regurgitation. 5 . There is trace physiologic tricuspid valve regurgitation. Cameron Beulah Cardiology:Completel y reproducible CP, identifcal to what prompted her to come to the hospital. 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 Frandy Cee Cardiology:[facility]. Frandy Cee Cardiology:BP's well controlled. Her updated medication list for this problem includes: Amlodipine Besylate 5mg Tablets (Amlodipine besylate) ..... Take 1 tablet by mouth daily Chlorthalidone 25 Mg Tablet (Chlorthalidone) ..... Take 1 tablet every day Vasotec 5 Mg Oral Tablet (Enalapril maleate) ..... One tab.twice daily Metoprolol Tartrate 25 Mg Tablet (Metoprolol tartrate) ..... Take 1 tablet twice daily BP today: 121/67 P rior BP: 129/83 (06/22/2019) Frandy Cee Cardiology:Echo 03/2019 CONCLUSIONS: 1 . There is septal hypertrophy without outflow tract obstruction. Normal left ventricular systolic function. Normal left v entricular size. Normal left ventricular wall thickness. E/E': 6.3. Left ventricular ejection fraction is measured at 65 %. 2 . Normal right ventricular size. Normal right ventricular systolic function. 3 . There is trace physiologic mitral valve regurgitation. 4 . Aortic valve leaflets appear structurally normal. Velocities, as well as gradients across the aortic valve are normal. Mild to m oderate aortic valve regurgitation. 5 . There is trace physiologic tricuspid valve regurgitation. Frandy Cee Cardiology:Previous echo done in [place], current echo seems somewhat progressed. Echo 06/27/2019 CONCLUSIONS: 1 . There is septal hypertrophy without outflow tract obstruction. Normal left ventricular systolic function. Normal left v entricular size. Normal left ventricular wall thickness. E/E': 6.3. Left ventricular ejection fraction is measured at 65 %. 2 . Normal right ventricular size. Normal right ventricular systolic function. 3 . There is trace physiologic mitral valve regurgitation. 4 . Aortic valve leaflets appear structurally normal. Velocities, as well as gradients across the aortic valve are normal. Mild to m oderate aortic valve regurgitation. 5 . There is trace physiologic tricuspid valve regurgitation. Frandy Cee Cardiology:Check echo to evaluat e aortic valve. Annie Simpson MD Cardiology:BP well c ontrolled H er updated medication list for this problem includes: Amlodipine Besylate 5mg Tablets (Amlodipine besylate) ..... Take 1 tablet by mouth daily Chlorthalidone 25 Mg Tablet (Chlorthalidone) ..... Take 1 tablet every day Vasotec 5 Mg Oral Tablet (Enalapril maleate) ..... One tab.twice daily Metoprolol Tartrate 25 Mg Tablet (Metoprolol tartrate) ..... Take 1 tablet twice daily BP today: 129/83 P rior BP: 136/78 (06/02/2018) Annie Simpson MD Cardiology: Q uite likely that YAMIL may be driving her HTN. Will get home sleep study. June 22, 2019 N ever had sleep study done. Annie Simpson MD Cardiology:Echo was abnormal. Wi rechec Annie Simpson MD Cardiology:Echo was abnormal. Wi rechec Annie Simpson MD Cardiology follow up : H er updated medication list for this problem includes: Norvasc 5 Mg Oral Tablet (Amlodipine besylate) ..... One tab. daily Chlorthalidone 25 Mg Oral Tablet (Chlorthalidone) ..... Take one tablet daily Vasotec 5 Mg Oral Tablet (Enalapril maleate) ..... One tab.twice daily Metoprolol Tartrate 25 Mg Oral Tablet (Metoprolol tartrate) ..... One tab. twice daily Annie Simpson MD Cardiology follow up : Q uite likely that YAMIL may be driving her HTN. Will get home sleep study. Annie Simpson MD Cardiology hospital follow up:Quite likely that YAMIL may be driving her HTN. Will get home sleep study. Annie Simpson MD Cardiology hospital follow up:Did not take chlorthalidone this morning b/c it makes her urinate. Will add Norvasc 5 mg daily. Check renal artery U/S. Her updated medication list for this problem includes: Chlorthalidone 25 Mg Oral Tablet (Chlorthalidone) ..... Take one tablet daily Vasotec 5 Mg Oral Tablet (Enalapril maleate) ..... One tab.twice daily Metoprolol Tartrate 25 Mg Oral Tablet (Metoprolol tartrate) ..... One tab. twice daily Annie Simpson MD Cardiology:BP is bet ter controlled on meds, will add vasotec 5 mg twice a day with her lopressor, she should get better results. Cannot take aspirin due to true aspirin allergy. H er updated medication list for this problem includes: Vasotec 5 Mg Tabs (Enalapril maleate) ..... One tab.twice daily Metoprolol Tartrate 25 Mg Tabs (Metoprolol tartrate) ..... One tab. twice daily Annie Simpson MD Date Name Dr. Diehl PROTHROMBIN TIME WIT H INR LIPID PANEL CBC (INCLUDES DIFF/P LT) BASIC METABOLIC PANE L W/EGFR CHNE PROCEDURES CHNE PROCEDURES RPM (remote patient monitoring) RPM (remote patient monitoring) RPM (remote patient monitoring) JOSE - [facility] BASIC METABOLIC PANE L W/EGFR CT Angio Chest (Aort a) CT Angio Chest (Aort a) Stress Exercise Card iolite Stress Regadenoson Complete Echo Arterial Duplex Bi-L ower EX Stress Exercise Card iolite Sleep Study Home CT Chest with,withou t contrast Complete Echo Sleep Study Home Renal Artery Duplex Sleep Study Home 6 minute walk test Ambulatory Oximetry DLCO - 07637 FRC - [id number] FVC - [id number] HISTORY OF PROCEDURES Procedure Date Procedure Name Provider Procedure Notes S tatus Complex e/m visit add on Gallo Diehl MD completed Complex e/m visit add on Annie Simpson MD completed EKG Annie Simpson MD completed Complex e/m visit add on Annie Simpson MD completed EKG Annie Simpson MD completed EKG Annie Simpson MD completed EKG Annie Simpson MD completed EKG Annie Simpson MD completed EKG Annie Simpson MD completed EKG Annie Simpson MD completed EKG Troy Hu MD completed EKG Annie Simpson MD completed EKG Annie Simpson MD completed Cardiolite, 2 units Annie mayo MD completed SPECT Images Annie Simpson MD completed Stress EKG Annie Simpson MD completed EKG Annie Simpson MD completed EKG Annie Simpson MD completed EKG Annie Simpson MD completed EKG Annie Simpson MD completed EKG Annie Simpson MD completed SNOMED-CT: [id number] Current Medications Documented Annie Simpson MD completed
--- OUTSIDE RECORDS SUMMARY | 2024-06-05 21:39 | XMS_ITS | Continuity of Care Document ---
Author Organization [facility] Address [address] [place] [address] Insurance Providers Payer Plan Claims Address Claims Phone Policy Number Group Number Relation Employer Guarantor Name Guarantor Guarantor Address Guarantor Phone [employer] [address] [address], [place] [address] tel:[phone] Hernán Lomeli 1960 [facility], [place] [address] [employer] [address] [address], [place] [address] tel:[phone] [id number] Hernán Lomeli 1960 [facility], [place] [address] [facility] [employer] ARE ADV [address] [address], [place] [address] tel:[phone] Hernán Lomeli 1960 [facility], [place] [address] Problems Unknown Problems Results No Results Allergies, adverse reactions, alerts Substance Reaction Date Status Type aspirin 12/15/2023 Drug clonazepam 12/15/2023 Drug cefdinir 12/15/2023 Drug Medications No administered medications reported Vital Signs Date Vital Result Comment 10/12/2023 Inhaled Oxygen Concentration 21.0 % N Faces Pain Scale 0.0 N Oxygen Saturation 97 % N Respiratory Rate 18 /min N Heart Rate 78 /min N Blood Pressure Systolic 128 mm[Hg] N Blood Pressure Diastolic 74 mm[Hg] N Body Height 65 [in_i] N Body Weight 128 [lb_av] N Body Mass Index 21.3 kg/m2 N 12/15/2023 Inhaled Oxygen Concentration 21.0 % N Faces Pain Scale 0.0 N Temperature 98.6 [degF] N Oxygen Saturation 96 % N Respiratory Rate 18 /min N Heart Rate 76 /min N Blood Pressure Systolic 152 mm[Hg] N Blood Pressure Diastolic 74 mm[Hg] N Body Height 65 [in_i] N 04/13/2024 Inhaled Oxygen Concentration 21.0 % N Temperature 97.4 [degF] N Oxygen Saturation 93 % N Respiratory Rate 16 /min N Heart Rate 76 /min N Blood Pressure Systolic 102 mm[Hg] N Blood Pressure Diastolic 60 mm[Hg] N Body Height 65 [in_i] N Body Weight 135 [lb_av] N Body Mass Index 22.5 kg/m2 N Social History Element Description Date Comment Sex assigned at Female Functional Status Category Condition Date Problem (Feeding: Independent) Feeding: Independ ent 12/15/2023 Problem (Bathing: Independen t (or in shower)) Bathing: Independent (or in shower) 12/15/2023 Problem (Grooming: Independe nt face/hair/teeth/ shaving (implements provided)) Grooming: Independent face/hair/teeth/ shaving (implements provided) 12/15/2023 Problem (Dressing: Independe nt (including buttons, zips, laces, etc.)) Dressing: Independent (including buttons, zips, laces, etc.) 12/15/2023 Problem (Bowels: Continent) Bowels: Continent Problem (Bladder: Continent) Bladder: Continent 12/15/2023 Problem (Toilet use: Indepen dent (on and off, dressing, wiping)) Toilet use: Independent (on and off, dressing, wiping) 12/15/2023 Problem (Transfers (bed to c hair and back): Independent) Transfers (bed to chair and back): Independent 12/15/2023 Problem (Mobility (on level surfaces): Wheelchair independent, including corners, >50 yards) Mobility (on level surfaces): Wheelchair independent, including corners, >50 yards 12/15/2023 Problem (Stairs: Unable) Stairs: Unable 024 Problem (Total score: 80) Total score: 80 2023 Mental Status Category Condition Date Cognitive function Normal 12/15/2023
--- OUTSIDE RECORDS SUMMARY | 2024-06-05 21:40 | XMS_ITS | Clinical Summary ---
Author Organization [facility] Address [address] [place] [address] Care Team Providers Care Information Technology Internship Name Role Phone Agustin Flor MD Primary Care Provider [phone] Shreyas Phillips MD Unavailable Bebe HernandezC Unavailable [phone] Nanda Rausch RN Unavailable Unavailable Source Comments [facility],non-owned Affiliates and Associated Physician Practices is amultiple site organization consisting of ambulatory clinics and hospital sitesin [place], [place], [place]. This disclosure is being madepursuant to the Care Everywhere program and may not contain all information available regarding this patient. 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, unspecified whether correction insulin use (HCC) Use 1 Needle as directed 100 Each 11 3 Active vitamin D3 (Cholecalciferol) 25 MCG (1000 UNITS) tabletIndications:V itamin D Deficiency Take 2 (two) tablets by mouth once daily Reasons: Vitamin D Deficiency 3 Active thiamine (Vitamin B-1) 100 MG tablet Take 1 (one) tablet by mouth once daily 0 3 Active PARoxetine (Paxil) 40 MG tabletIndications:G eneralized Anxiety Disorder,Major Depressive Disorder Take 1 (one) [...] bedtime 4 Active atorvastatin (Lipitor) 40 MG tabletIndications:C oronary artery disease involving [place] heart without angina pectoris, unspecified vessel or lesion type,Hyperlipidemia , unspecified hyperlipidemia type Take 1 (one) tablet by mouth at bedtime 90 tablet 2 4 Active gabapentin (Neurontin) 300 MG capsuleIndications: Drug-induced polyneuropathy (HCC),Foot drop, bilateral Take 1 (one) capsule by mouth 3 times daily 90 capsule 1 4 Active Active Problems Problem Noted Date Diagnosed [...] Encounters Date Type Department Care Team Description 05/28/2024 11:00 AM CALL WORKER - 05/28/2024 11:59 PM [facility] Hospital Encounter [facility] [address] [place] [address] Shreyas Phillips MD Discharge Disposition: Home or Self Care 05/28/2024 Travel 04/26/2024 6:01 AM CALL WORKER - 04/26/2024 9:05 AM [facility] Hospital Encounter [facility] [address] [place] [address] Shreyas Phillips MD [facility] Radiology Discharge Disposition: Home or Self Care 04/26/2024 Travel 03/22/2024 Orders Only [facility] [address] [place] [address] Nanda Rausch, RN B-cell lymphoma, unspecified B-cell lymphoma type, unspecified body region (HCC) 03/19/2024 Orders Only [facility] [address] [place] [id number] Nanda Rausch, RN B-cell lymphoma, unspecified B-cell lymphoma type, unspecified body region (HCC) 03/16/2024 2:20 PM CALL WORKER - 03/16/2024 11:59 PM CALL WORKER Hospital Encounter [facility] [address] [place] [address] Shreyas Phillips MD Discharge Disposition: Home or Self Care 03/16/2024 Travel 03/15/[address] [address] Emeli Forrester 03/15/2024 Orders Only [address] [address] Shreyas Phillips MD 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 ([facility]) 03/10/[address] [address] Shreyas Phillips MD MEDICATION REFILL 03/08/2024 Telephone [facility] [address] [place] [id number] Sorin Bowden, [employer] ONLY from Last 3 Months Immunizations Name Administration Dates Next Due COVID PFIZER BIVALENT 12Y+ 30mcg/0.3ML 01/21/2022 Covid Pfizer primary monoval ent 12+ yr 0.3mL Purple cap 01/21/2022,12/28/2020 FLU VACCINE QUAD IIV4 SPLIT 0.25 ML IM 01/25/2020,01/17/2019 INFLUENZA [id number], HISTORIC VACCINE 01/21/2022 INFLUENZA VACCINE 12/26/2016,03/28/2014 INFLUENZA [...] care, and heating? Not very hard 11/20/2022 [facility] [place] of Occupat ional Health - Occupational Stress [...] place to sleep or slept in a detention (including now)? No 11/20/2022 Sex and Gender Information Value Date Recorded Sex Assigned at Not on file Gender Identity Female 08/19/2023 1:35 PM CDT Sexual Orientation Not on file Last Filed Vital Signs Vital Sign Reading Time Taken Comments Blood Pressure 140/83 04/26/2024 8:50 AM CALL WORKER Pulse 68 04/26/2024 8:50 AM CALL WORKER Temperature 36.6 C (97.8 F) 04/26/2024 8:31 AM CALL WORKER Respiratory Rate 12 04/26/2024 8:50 AM CALL WORKER Oxygen Saturation 94% 04/26/2024 8:50 AM CALL WORKER Inhaled Oxygen Concentration - - Weight 62.6 kg (138 lb) 04/26/2024 6:18 AM CALL WORKER Height 163.8 cm (5' 4.5 ) 04/26/2024 6:18 AM CALL WORKER Body Mass Index 23.32 04/26/2024 6:18 AM CALL WORKER Plan of Treatment Upcoming Encounters Date Type Department Care Team (Late st Contact Info) Description 06/15/2024 11:40 AM CDT Appointment [facility] [address] [place] [address] Shreyas Phillips MD [address] [place] [address] Health Maintenance Due Date Last [...] DIABETES - URINE PROTEIN SCREENING 03/28/2024 MEDICARE AW CALENDAR YEAR 2024 DIABETES-SERUM CREATININE 05/28/20252024, 03/16/2024, 12/21/2023, Additional history exists PNEUMOCOCCAL VACCINE 50+ Completed [...] this topic Medical Devices Implanted Type Area Civil Preparedness Training Officer Device Identifier Shelf Expiration Date Model / Serial / Lot Port Implinfn Powerport Clrvu Argd Kika Implanted:Qty: 1 on 07/15/2022 at [facility] Right: Chest [employer] 11/26/2023 [id number] / / [id number] Description:RIJ by Milena Spivey inton Procedures Procedure Name Priority Date/Time Associated Diagnosis Comments CT CHEST ABDOMEN PELVIS W CONT Routine 05/28/2024 11:38 AM CALL WORKER History of non-Hodgkin's lymphoma CREATININE - POCT INTERFACED Routine 05/28/2024 11:26 AM CALL WORKER IR CENTRAL LINE REMOVAL Routine 04/26/2024 8:32 AM CALL WORKER B-cell lymphoma, unspecified B-cell lymphoma type, unspecified body region (HCC) GLUCOSE - POINT OF CARE Routine 04/26/2024 6:51 AM CALL WORKER PT-INR [facility] Routine 04/26/2024 6:47 AM CALL WORKER Preop testing LDH BLOOD STAT 03/16/2024 2:26 PM CALL WORKER 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) CBC W AUTO DIFFERENTIAL STAT 03/16/2024 2:26 PM CALL WORKER 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) COMPREHENSIVE METABOLIC PANEL STAT 03/16/2024 2:26 PM CALL WORKER 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) HEMOGLOBIN A1C Routine 02/03/2023 11:03 AM CALL WORKER Bilateral foot pain HEPATITIS C RNA QUANTITATIVE STAT 07/16/2022 12:15 PM CDT Non-Hodgkin's lymphoma, unspecified body region, unspecified non-Hodgkin lymphoma type (HCC) High risk for chemotherapy-induced infectious complication from Last 3 Months or Most Recently Relevant to Health Maintenance Results * CT Chest Abdomen Pelvis W Cont (05/28/2024 11:38 AM CALL WORKER) Anatomical Region Laterality Modality Chest, Abdomen, Pelvis Computed Tomography 05/28/2024 1:52 PM CALL WORKER Impressions 05/28/2024 4:28 PM CALL WORKER Impression: 1.No evidence of lymphadenopathy in the chest, abdomen, and pelvis. 2.Redemonstrated are multiple hepatic and renal cysts which may be suggestive of polycystic kidney-liver disease. Report was dictated by Jose Lagos MD, (Integrated VIR resident). > Dictated by Jose Lagos MD (Ranch Helper) 05/28/2024 1:52 PM I, Nakul Bridges MD have personally reviewed and interpreted this examination/study. > Interpreting Provider: Nakul Bridges MD on 05/28/2024 4:28 PM Narrative 05/28/2024 4:28 PM CALL WORKER PROCEDURE: CT CHEST ABDOMEN PELVIS W CONT, DATE/TIME OF EXAM: 05/28/2024 11:39 AM, LOCATION [facility] INDICATION: Z85.72: History of non-Hodgkin's lymphoma ADDITIONAL CLINICAL INFORMATION: Ordering Provider Reason For Exam: disease evaluation Technologist Note: Additional: COMPARISON: CT chest abdomen pelvis with contrast 11/29/2023. TECHNIQUE: CT of the chest, abdomen, and pelvis was performed without contrast according to standard protocol. Findings: Evaluation of visceral and vascular structures is degraded due to lack of intravenous contrast administration. Chest: Lower Neck and Axillae: Right thyroid lobe nodule measuring up to 2 cm, better characterized on thyroid ultrasound from 12/06/2023. Lungs: No pulmonary parenchymal or airway process is present. No suspicious pulmonary nodules are identified. No pleural fluid or pneumothorax is present. Heart and Pericardium: The cardiac chambers are normal in size. No pericardial fluid or thickening is present. Loop recorder overlying the left chest wall. Mediastinum and Milagro: No mediastinal mass is present. Mildly prominent subcentimeter mediastinal lymph nodes are seen; however, there are no enlarged lymph nodes are present. Calcified mediastinal and hilar granulomas. Thoracic Vasculature: The aorta and its branch vessels are atherosclerotic. Abdomen/pelvis: Liver: Multiple innumerable hypoattenuating hepatic lesions the largest lesions in segment 2 and segment 7, measuring 1.8 cm and 2.8 cm respectively. Multiple calcified granulomas. Gallbladder and Bile Ducts: There is mild dilatation of the common bile duct with some foci of air of the main pancreatic duct suggestive of sphincter of Oddi dysfunction. This has been stable since the PET/CT from 07/21/2022. Spleen: Multiple calcified granulomas are noted in the spleen, likely sequelae of prior granulomatous disease. Pancreas: Normal. Adrenals: Normal. Kidneys: Multiple subcentimeter hypoattenuating lesions in both kidneys with the largest measuring up to 6 cm in the right kidney and 4 cm in the left kidney, but likely represent cysts. Gastrointestinal: The stomach and visualized loops of large and small bowel are unremarkable. There is a duodenal diverticulum at the level of the 2nd part of the duodenum. There is moderate colonic stool burden. Normal appendix. Mesentery/Peritoneum/Retroperitoneum: Normal. Bladder: The bladder is partially distended. Reproductive Organs: The uterus is absent. Abdominal Vasculature: Extensive atherosclerotic calcification of the aorta and its branch vessels. Bones: Bone windows demonstrate no suspicious lytic or blastic lesions. The visible osseous structures are intact. Degenerative changes are seen in the spine. Soft tissues: Normal. Procedure Note Nakul Bridges MD - 05/28/2024 PROCEDURE: CT CHEST ABDOMEN PELVIS W CONT, DATE/TIME OF EXAM: 05/28/2024 11:39 AM, LOCATION [facility] INDICATION: Z85.72: History of non-Hodgkin's lymphoma ADDITIONAL CLINICAL INFORMATION: Ordering Provider Reason For Exam: disease evaluation Technologist Note: Additional: COMPARISON: CT chest abdomen pelvis with contrast 11/29/2023. TECHNIQUE: CT of the chest, abdomen, and pelvis was performed without contrast according to standard protocol. Findings: Evaluation of visceral and vascular structures is degraded due to lackof intravenous contrast administration. Chest: Lower Neck and Axillae: Right thyroid lobe nodule measuring up to 2 cm, better characterized on thyroid ultrasound from 12/06/2023. Lungs: No pulmonary parenchymal or airway process is present. No suspicious pulmonary nodules are identified. No pleural fluid or pneumothorax is present. Heart and Pericardium: The cardiac chambers are normal in size. No pericardial fluid orthickening is present. Loop recorder overlying the left chest wall. Mediastinum and [place]: No mediastinal mass is present. Mildly prominent subcentimetermediastinal lymph nodes are seen; however, there are no enlarged lymph nodes are present. Calcified mediastinal and hilar granulomas. Thoracic Vasculature: The aorta and its branch vessels are atherosclerotic. Abdomen/pelvis: Liver: Multiple innumerable hypoattenuating hepatic lesions the largest lesionsin segment 2 and segment 7, measuring 1.8 cm and 2.8 cm respectively.Multiple calcified granulomas. Gallbladder and Bile Ducts: There is mild dilatation of the common bile duct with some foci of airof the main pancreatic duct suggestive of sphincter of Oddi dysfunction.This has been stable since the PET/CT from 07/21/2022. Spleen: Multiple calcified granulomas are noted in the spleen, likely sequelaeof prior granulomatous disease. Pancreas: Normal. Adrenals: Normal. Kidneys: Multiple subcentimeter hypoattenuating lesions in both kidneys with the largest measuring up to 6 cm in the right kidney and 4 cm in the left kidney, but likely represent cysts. Gastrointestinal: The stomach and visualized loops of large and small bowel areunremarkable. There is a duodenal diverticulum at the level of the 2nd part of the duodenum. There is moderate colonic stool burden. Normal appendix. Mesentery/Peritoneum/Retroperitoneum: Normal. Bladder: The bladder is partially distended. Reproductive Organs: The uterus is absent. Abdominal Vasculature: Extensive atherosclerotic calcification of the aorta and its branch vessels. Bones: Bone windows demonstrate no suspicious lytic or blastic lesions. The visible osseous structures are intact. Degenerative changes are seen inthe spine. Soft tissues: Normal. Impression: 1.No evidence of lymphadenopathy in the chest, abdomen, and pelvis. 2.Redemonstrated are multiple hepatic and renal cysts which may be suggestive of polycystic kidney-liver disease. Report was dictated by Jose Lagos MD, (Integrated VIR resident). > Dictated by Jose Lagos MD (Ranch Helper) 05/28/2024 1:52 PM I, Nakul Bridges MD have personally reviewed and interpreted this examination/study. > Interpreting Provider: Nakul Bridges MD on 05/28/2024 4:28 PM Shreyas Phillips MD CT ORDERABLES * CREATININE - POCT INTERFACED (05/28/2024 11:26 AM CALL WORKER) Creatinine POCT 0.72 0.30 - 1.30 mg/dL 05/28/2024 11:30 AM [facility] eGFR >90 >=90 mL/min/1.7 3 m2 05/28/2024 11:30 AM CALL WORKER [facility] Blood BLOOD SPECIMEN / Unknown 05/28/2024 11:26 AM CALL WORKER 05/28/2024 11:30 AM CALL WORKER Shreyas Phillips MD LAB - POINT OF CARE ORDERABLES Performing Organization Address City/State/[facility] Co de Phone Number [facility] [address] [place] [address], [facility] [phone] * IR Central Line Removal (04/26/2024 8:32 AM CALL WORKER) Anatomical Region Laterality Modality X-Ray Angiograph y 04/26/2024 3:21 PM CALL WORKER Impressions 05/07/2024 8:15 AM CALL WORKER Impression: Successful removal of a right internal jugular approach since lumen 8 Green[place]ic chest port under fluoroscopic guidance. Note: Keep the dressing clean and dry for 5 days. IDr. Francisca PA, was present and performed/supervised the entire procedure. > Dictated by Aguila Pritchett (Ranch Helper) 04/26/2024 3:21 PM IValeria MD have personally reviewed and interpreted this examination/study. > Interpreting Provider: Valeria Hernandez MD on 05/07/2024 8:15 AM Narrative 05/07/2024 8:15 AM CALL WORKER PROCEDURE: IR CENTRAL LINE REMOVAL DATE/TIME OF EXAM: 04/26/2024 8:33 AM CLINICAL INFORMATION: History: This is a 64-year-old -[place] female with a history of lymphoma who previously had a chest port placed for chemotherapy administration. She has completed chemotherapy and remains remission and therefore presents for chest port removal Operators: BIJAL Cartagena Anesthesia: 1.Local anesthesia - 10 mL of 1% Lidocaine 2.Intravenous Anxiolysis- Versed 1 mg and Fentanyl 50 mcg Procedure: Removal of a right internal jugular approach 1 lumen 8 Greenlandic chest port under fluoroscopic guidance. Fluoroscopic time: 0.1 minutes Procedure details: The procedure, risks, and possible complications were explained to the patient in detail, and informed consent was obtained. The patient was placed supine on the angiography table. The right neck and upper chest were prepped and draped in the usual sterile manner. A nuclear power plant engineer radiograph of the chest was obtained, which [...] CLINICAL INFORMATION: History: This is a 64-year-old -[place] female with a history of lymphoma who previously had a chest port placed for chemotherapy administration. She has completed chemotherapy andremains remission and therefore presents for chest port removal Operators: BIJAL Cartagena Anesthesia: 1.Local anesthesia - 10 mL of 1% Lidocaine 2.Intravenous Anxiolysis- Versed 1 mg and Fentanyl 50 mcg Procedure: Removal of a right internal jugular approach 1 lumen 8 Green[place]ic chest port under fluoroscopic guidance. Fluoroscopic time: 0.1 minutes Procedure details: The procedure, risks, and possible complications were explained to the patient in detail, and informed consent was obtained. The patient was placed supine on the angiography table. The right neck and upper chestwere prepped and draped in the usual sterile manner. A nuclear power plant engineer radiograph ofthe chest was obtained, which showed [...] the procedure well [facility]. There were no immediate complicationsassociated with the procedure. Impression: Successful removal of a right internal jugular approachsince lumen 8 Green[place]ic chest port under fluoroscopic guidance. Note: Keep the dressing clean and dry for 5 days. IDr. Francisca PA, was present and performed/supervised the entire procedure. > Dictated by Aguila Pritchett (Ranch Helper) 04/26/2024 3:21 PM IValeria MD have personally reviewed and interpreted this examination/study. > Interpreting Provider: Valeria Hernandez MD on 05/07/2024 8:15 AM Shreyas Phillips MD IR ORDERABLES * GLUCOSE - POINT OF CARE (04/26/2024 6:51 AM CALL WORKER) Glucose WB/POC 92 70 - 99 mg/dL 04/26/2024 6:52 AM [facility] Specimen Type Venous 04/26/2024 6:52 AM [facility] Blood BLOOD SPECIMEN / Unknown 04/26/2024 6:51 AM CALL WORKER 04/26/2024 6:52 AM CALL WORKER Shreyas Phillips MD LAB - POINT OF CARE ORDERABLES [facility] [address] [place] [address], [facility] [phone] * PT-INR [facility] (04/26/2024 6:47 AM CALL WORKER) PT 13.2 12.1 - 14.8 Seconds 04/26/2024 7:20 AM [facility] INR 1.0 See Comment 04/26/2024 7:20 AM [facility] Comment:The suggested therap eutic range for standard coumadin (warfarin) therapy is an INR of 2.0-3.0. For high-risk patients (Mechanical Mitral Valve Prosthesis, etc.), the suggested prophylactic therapeutic range is an INR of 2.5-3.5. Blood BLOOD SPECIMEN / Unknown Venipuncture / Unknown 04/26/2024 6:47 AM CALL WORKER 04/26/2024 6:51 AM CALL WORKER Tyson Sandhu MD LAB - COAGULATION OR DERABLES [facility] [address] [place] [address], [facility] [phone] * (ABNORMAL) CBC W AUTO DIFFERENTIAL (03/16/2024 2:26 PM CALL WORKER) WBC 5.4 4.0 - 10.7 x10E9/L 03/17/2024 2:57 AM [facility] RBC Count 4.04 3.90 - 5.20 x10E12/L 03/17/2024 2:57 AM [facility] Hemoglobin 11.4(L) 11.9 - 15.8 g/dL 03/17/2024 2:57 AM [facility] Hematocrit 37.2 34.8 - 46.1 % 03/17/2024 2:57 AM [facility] MCV 92.1 80.0 - 98.0 fL 03/17/2024 2:57 AM [facility] MCH 28.2 26.7 - 33.6 pg 03/17/2024 2:57 AM [facility] MCHC 30.6(L) 31.7 - 36.3 g/dL 03/17/2024 2:57 AM [facility] RDW-CV 14.7 11.3 - 14.8 % 03/17/2024 2:57 AM [facility] Platelet Count 184 150 - 420 x10E9/L 03/17/2024 2:57 AM [facility] MPV 9.5 7.8 - 11.4 fL 03/17/2024 2:57 AM [facility] Preliminary Absolute Neutrophil 3.75 1.60 - 7.50 x10E9/L 03/17/2024 2:57 AM [facility] Neutrophil % 69.9 41.0 - 74.0 % 03/17/2024 2:57 AM [facility] Lymphocyte % 18.4 17.0 - 47.0 % 03/17/2024 2:57 AM [facility] Monocyte % 8.9 3.0 - 11.0 % 03/17/2024 2:57 AM [facility] Eosinophil % 2.0 0.0 - 7.0 % 03/17/2024 2:57 AM [facility] Basophil % 0.4 0.0 - 1.6 % 03/17/2024 2:57 AM [facility] Immature Granulocytes % 0.4 0.0 - 1.0 % 03/17/2024 2:57 AM [facility] Neutrophil Absolute 3.75 1.60 - 7.50 x10E9/L 03/17/2024 2:57 AM [facility] Lymphocyte Absolute 0.99(L) 1.00 - 4.40 x10E9/L 03/17/2024 2:57 AM [facility] Monocyte Absolute 0.48 0.15 - 1.00 x10E9/L 03/17/2024 2:57 AM [facility] Eosinophil Absolute 0.11 0.00 - 0.60 x10E9/L 03/17/2024 2:57 AM [facility] Basophil Absolute 0.02 0.00 - 0.13 x10E9/L 03/17/2024 2:57 AM [facility] Blood BLOOD SPECIMEN / Unknown Venipuncture / Unknown 03/16/2024 2:26 PM CALL WORKER 03/17/2024 2:52 AM [facility] Shreyas Phillips MD LAB - HEMATOLOGY ORD ERABLES Performing Organization Address [facility] Co de Phone Number [facility] [address] [place] [phone] [phone] * (ABNORMAL) COMPREHENSIVE METABOLIC PANEL (03/16/2024 2:26 PM CALL WORKER) BUN 18 7 - 26 mg/dL 03/17/2024 3:20 AM [facility] Creatinine 0.86 0.56 - 0.96 mg/dL 03/17/2024 3:20 AM [facility] Sodium 141 136 - 145 mmol/L 03/17/2024 3:20 AM [facility] Potassium 3.9 3.5 - 4.5 mmol/L 03/17/2024 3:20 AM [facility] Chloride 108(H) 98 - 107 mmol/L 03/17/2024 3:20 AM [facility] CO2 26 22 - 29 mmol/L 03/17/2024 3:20 AM [facility] Glucose 97 70 - 99 mg/dL 03/17/2024 3:20 AM [facility] Calcium 9.6 8.4 - 10.2 mg/dL 03/17/2024 3:20 AM [facility] Protein Total 6.6 6.0 - 8.3 g/dL 03/17/2024 3:20 AM [facility] Albumin 4.3 3.4 - 5.0 g/dL 03/17/2024 3:20 AM [facility] Bilirubin Total 0.2 0.2 - 1.2 mg/dL 03/17/2024 3:20 AM [facility] Alkaline Phosphatase 57 40 - 150 U/L 03/17/2024 3:20 AM [facility] ALT 33 5 - 55 U/L 03/17/2024 3:20 AM [facility] AST 21 5 - 34 U/L 03/17/2024 3:20 AM [facility] Anion Gap 7 6 - 16 03/17/2024 3:20 AM [facility] BUN/Creatinine Ratio 21 7 - 23 03/17/2024 3:20 AM [facility] Osmolality Calculated 294 275 - 295 mOsm/kg 03/17/2024 3:20 AM [facility] Albumin/Globulin Ratio 1.9 1.1 - 2.3 03/17/2024 3:20 AM [facility] eGFR by CKD-EPI 75(L) >=90 mL/min/1.7 3 m2 03/17/2024 3:20 AM [facility] Blood BLOOD SPECIMEN / Unknown Venipuncture / Unknown 03/16/2024 2:26 PM CALL WORKER 03/17/2024 2:52 AM [facility] Shreyas Phillips MD LAB - CHEMISTRY SILVINO Tolbert Organization Address City/State/[facility] Co de Phone Number [facility] [address] [address], [facility] [phone] * LDH BLOOD (03/16/2024 2:26 PM CALL WORKER) LDH Total 196 125 - 243 Units/L 03/17/2024 3:20 AM CALL WORKER [facility] Blood BLOOD SPECIMEN / Unknown Venipuncture / Unknown 03/16/2024 2:26 PM CALL WORKER 03/17/2024 2:52 AM CALL WORKER Shreyas Phillips MD LAB - CHEMISTRY SILVINO LENZ [address] [address], [facility] [phone] * HEMOGLOBIN A1C (02/03/2023 11:03 AM CALL WORKER) Pathologist [facility] Hemoglobin A1c 5.4 <=5.6 % 02/03/2023 3:39 PM [facility] Estimated Average Glucose 108 mg/dL 02/03/2023 3:39 PM [facility] Comment: HbA1c Interpretation: Normal : < 5.7% Pre-diabetes: 5.7-6.4% Diabetes: Equal to or greater than 6.5% Test results diagnostic of diabetes should be repeated for confirmation. Treatment target values recommended by ADA and other clinical organizations should be used to evaluate metabolic control in patients. Reference: [place] [employer], Standards of Care in Diabetes -2020 In patients 70 years and older consider HbA1c target range of 7.0-7.5% (Reference: Vishal Davis et al. JAMDA. 2012) The Sebia assay for the measurement of HbA1c is a National Glycohemoglobin Standardization Program (NGSP) certified method. Blood BLOOD SPECIMEN / Unknown Lab Venipuncture / Unknown 02/03/2023 11:03 AM CALL WORKER 02/03/2023 11:29 AM CALL WORKER Mohini Sky MD LAB - CHEMISTRY [facility]IL[facility]INO LENZ [address] [address], [facility] [phone] * HEPATITIS C RNA QUANTITATIVE (07/16/2022 12:15 PM CDT) Hepatitis C RNA PCR, Interp Not detected Not detected 07/19/2022 1:[address] [facility] Blood BLOOD SPECIMEN / Unknown Lab Venipuncture / Unknown 07/16/2022 12:15 PM CDT 07/16/2022 12:[address] [facility] - 07/19/2022 1:08 PM CDT The Hepatitis C viral (HCV) RNA analysis utilized a serum sample, real-time reverse clam picker PCR, and is reported as Not Detected, [...] the isolation of HCV RNA with reverse clam picker of genomic HCV RNA followed by real-time PCR in the presence of an unrelated RNA internal control. The internal control ensures that RNA is isolated, and that no general significant inhibitors of the RT-PCR process are present. The analysis was performed using a [place] FDA approved test methodology. Shreyas Phillips MD LAB - CHEMISTRY SILVINO LENZ [facility] [address] [place] [address], [facility] [phone] from Last 3 Months or Most Recently [...] 3:45 PM 10/19/2022 5:53 PM Care Teams Information Technology Internship Relationship Specialty Start Date End Date Agustin Flor MD [address] [place] [address] PCP - General General Medicine 06/28/22 Shreyas Phillips MD [address] [place] [id number] Physician Hematology and Oncology 03/23/23 Bebe Hernandez, PA-C [address] [place] [address] Physician Ice Scraper Physician Ice Scraper 03/23/23 Nanda Rausch, RN Registered Nurse 03/23/23
--- OUTSIDE RECORDS SUMMARY | 2024-06-05 21:40 | XMS_ITS ---
Author Organization [facility] Address [address] [facility] [place] [address] Care Team Providers Care Piece Maker Name Role Phone Agustin Flor MD Primary Care Provider [phone] Shreyas Phillips MD Unavailable Bebe HernandezC Unavailable [phone] Nanda Rausch RN Unavailable Unavailable Active Problems [...] (Truxima) RAPID infusionriTUXimab- abbs (Truxima) STANDARD infusionvinCRIStin i-[id number] oside CIVI Therapy Complete Shreyas Phillips MD 6 of 6 cycles started THERAPY PLAN Plan Name Start Date Discontinue Date Treatment Medications Discontinue Reason Plan Provider Hematology plan 12/17/2022 04/26/2024 No medicatio ns scheduled. Therapy Complete Bebe Hernandez, PAKylahC ONC treatment plan 12/01/2022 12/03/2022 No medications scheduled. Therapy Complete Vicky Mendiola, [employer] INSIGHT[employer] EXECUTIVE Radiation Treatments * No radiation treatments are documented for this patient in [facility]. Treatments may have been administered in another system. Lifetime Dose Tracking * Chemical Lifetime Dose Automatic Entry Manual Entr y Doxorubicin 243.533 mg/m2 (418.8 mg) 243.533 mg/m2 (4 18.8 mg) 0 mg/m2 (0 mg) Dose Length Product 2,855.5 mGy-cm 2,855.5 mGy-cm 0 mG y-cm Resolved Problems Problem Noted Date Diagnosed Date Resolved Date Altered mental status, unspe cified altered mental status type 11/18/2022 11/21/2022 Hodgkin lymphoma 07/15/2022 07/16/2022 History of CAD (coronary artery disease) 07/13/2022 09/03/2022 Chronic obstructive pulmonary disease 11/09/2019 09/03/2022
--- OUTSIDE RECORDS SUMMARY | 2024-06-05 21:40 | XMS_ITS | Clinical Summary ---
Author Organization [facility] Building B Address [address] [place] [address] Care Team Providers Care Blender Snuff Name Role Phone Agustin Flor MD Primary Care Provider [phone] Annie Simpson MD Unavailable [phone] Allergies Active Allergy Reactions Criticality Noted Date Comments Aspirin Eye irritation,Other (See comments),Shortness of breath,Swelling,Unknow n High 04/12/2018 Breathing Difficulty Pain in the chest, eye red and swollen Cefdinir Itching,Rash Medium 04/21/2023 Chlorthalidone Itching,Unknown,Urti ca jacqueline Medium 07/13/2022 Makes her itch Clonazepam Other (See comments),Unknown High 05/17/2018 Uncontrolled muscle movement Jerk in the leg clonazepam Hydrochlorothiazide Itching,Unknown Low 12/15/2022 Severe itching Medications albuterol HFA (PROVENTIL HFA,VENTOLIN HFA,PROAIR HFA) 90 mcg/actuation inhaler Inhale 2 puffs every 4 (four) hours as needed for shortness of breath or wheezing 05/14/19 23 Active albuterol 2.5 mg /3 mL (0.083 %) nebulizer solution Take 3 mL (2.5 mg total) by nebulization every 4 (four) hours as needed for wheezing or shortness of breath 10/19/19 24 Active atorvastatin (LIPITOR) 40 mg tablet Take 1 tablet (40 mg total) by mouth nightly 11/13/19 23 Active FreeStyle Ron 3 Leo misc 2 (two) times a day 10/03/19 24 Active FreeStyle Ron 3 Sensor device 2 (two) times a day 10/14/19 24 Active cholecalcifer ol 25 mcg (1,000 unit) tablet Take 2 tablets (2,000 Units total) by mouth every morning 10/29/19 23 Active famotidine (PEPCID) 20 mg tablet Take 0.5 tablets (10 mg total) by mouth daily as needed Active Trelegy Ellipta 100-62.5-25 mcg inhaler Inhale 1 puff every morning Active gabapentin (NEURONTIN) 300 mg capsule Take 1 capsule (300 mg total) by mouth 2 (two) times a day 12/19/19 24 Active hydrOXYzine (VISTARIL) 25 mg capsule Take 1 capsule (25 mg total) by mouth every morning Active insulin aspart (NovoLOG) 100 unit/mL (3 mL) pen for injection Inject 5 Units under the skin 3 (three) times a day with meals 11/22/19 23 Active LANTUS 100 unit/mL (3 mL) pen for injection Inject 12 Units under the skin nightly Active OneTouch Delica Plus Lancet 33 gauge misc 2 (two) times a day TEST BLOOD SUGAR 10/04/[address] (PROTONIX) 20 mg EC tablet Take 2 tablets (40 mg total) by mouth every morning 07/07/19 23 Active PARoxetine (PAXIL) 40 mg tablet Take 1 tablet (40 mg total) by mouth nightly 11/13/19 23 Active senna (SENOKOT) 8.6 mg tablet Take 1 tablet by mouth every morning Active terbinafine (LamiSIL) 250 mg tablet Take 1 tablet (250 mg total) by mouth daily with lunch Active ziprasidone (GEODON) 80 mg capsule Take 2 capsules (160 mg total) by mouth nightly 06/28/19 23 Active amLODIPine (NORVASC) 10 mg tablet Take 1 tablet (10 mg total) by mouth daily with lunch Active losartan (COZAAR) 25 mg tablet Take 1 tablet (25 mg total) by mouth every morning 03/27/20 24 Active OneTouch Ultra Test strip OneTouch Ultra Test strip Active docusate sodium (STOOL SOFTENER ORAL) Take 2 tablet/capsule by mouth nightly Active clopidogreL (PLAVIX) 75 mg tablet Take 1 tablet (75 mg total) by mouth daily 90 tablet 3 06/01/19 25 026 Active amLODIPine (NORVASC) 5 mg tablet Take 2 tablets (10 mg total) by mouth daily 025 Discontinued(O ther) apixaban (ELIQUIS) 5 mg tablet Take 1 tablet (5 mg total) by mouth 2 (two) times a day 025 Discontinued(S top Taking at Discharge) polyethylene glycol (MIRALAX) 17 gram packet Take 1 packet (17 g total) by mouth daily 11/12/19 23 025 Discontinued(O ther) sodium phosphate - potassium phosphate (K-PHOS NEUTRAL) 250 mg tablet Take 1 tablet (250 mg total) by mouth 3 times daily 025 Discontinued(O ther) ondansetron (ZOFRAN) 8 mg tablet Take 1 tablet (8 mg total) by mouth every 6 (six) hours as needed 025 Discontinued(O ther) insulin NPH-insulin regular 70/30 (NovoLIN 70/30 100 unit/mL) 100 unit/mL vial for injection Inject 10 Units under the skin 025 Discontinued(O ther) clopidogreL (PLAVIX) 75 mg tablet Take 1 tablet (75 mg total) by mouth daily 025 Discontinued(T herapy completed) clopidogreL (PLAVIX) 75 mg tablet Take 1 tablet (75 mg total) by mouth daily 45 tablet 1 06/01/19 25 025 Discontinued Active Problems Problem Noted Date Diagnosed Date PFO (patent foramen ovale) 02/22/2024 Assessment & Plan (02/22/2024 9:06 AM SWITCHBOARD WIRE WORKER HELPER): She has followed with cardiology and has now seen a surgeon with plans for repair in the next several months We will reassess her dyspnea after her recovery from this procedure Centrilobular emphysema 02/22/2024 Assessment & Plan (02/22/2024 9:05 AM SWITCHBOARD WIRE WORKER HELPER): Continue Trelegy Ellipta 100 daily Albuterol as needed only, we have discussed indications for use A1AT MM She was not a candidate for surgical repair of her foot drop, I have encouraged her to remain as active as possible with these limitations We have discussed signs and symptoms that would require earlier evaluation or change to her plan of care Cigarette nicotine dependence in remission 02/21 Assessment & Plan (02/22/2024 9:06 AM SWITCHBOARD WIRE WORKER HELPER): Last CT chest in November of 2023 with no new or worrisome pulmonary nodules We will continue annual screening which will be due in November of 2024 Cardiac septal defect 01/27/2024 Cerebrovascular accident (CVA) 06/24/2023 Talipes equinovarus of both lower extremities Cryptogenic stroke 12/17/2022 Foot drop, bilateral 11/13/2022 Diffuse large B-cell lymphoma 11/12/2022 Peripheral neuropathy 10/27/2022 Non-Hodgkin lymphoma 10/27/2022 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 10/27/2022 Urinary incontinence 10/21/2022 Asthma 10/14/2022 Normocytic anemia 09/03/2022 Depression 09/02/2022 Anxiety 09/02/2022 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 07/16/2022 Mild cardiomegaly 07/13/2022 History of alcohol abuse 07/13/2022 Dyspnea 07/05/2022 Urge incontinence of urine 07/02/2022 COVID-19 10/07/2021 Type 2 diabetes mellitus 02/07/2021 Essential hypertension 02/07/2021 Diabetic neuropathy 02/07/2021 Hyperlipidemia 02/07/2021 Aortic regurgitation 06/22/2019 Aortic root dilatation 06/22/2019 Sleep apnea 05/17/2018 CAD (coronary artery disease) 03/28/2018 Overview (05/16/2024): s/p stents Chronic obstructive pulmonary disease 01/21/2017 Cirrhosis of liver 04/01/2016 Encounters Date Type Department Care Team Description 05/29/2024 8:00 AM SWITCHBOARD WIRE WORKER HELPER - 05/29/2024 10:00 AM SWITCHBOARD WIRE WORKER HELPER Surgery [facility]atheter[facility] [address] [place] [address] Gallo Diehl MD ATRIAL SEPTAL DEFECT (ASD), PATENT FORAMEN OVALE (PFO), FENESTRATION CLOSURE [id number] 05/29/2024 7:59 AM SWITCHBOARD WIRE WORKER HELPER - 05/29/2024 11:59 PM SWITCHBOARD WIRE WORKER HELPER Hospital Encounter [facility] [address] [place] [address] Discharge Disposition: Discharge to home or self care 05/29/2024 7:57 AM SWITCHBOARD WIRE WORKER HELPER Anesthesia Event [facility] [address] [place] [address] Chavez Chiu MD Eldin, Ali S., MD 05/29/2024 5:33 AM SWITCHBOARD WIRE WORKER HELPER - 05/30/2024 11:37 AM SWITCHBOARD WIRE WORKER HELPER Hospital Encounter [address] [address] Gallo Diehl MD PFO (patent foramen ovale) Discharge Disposition: Discharge to home or self care 05/25/2024 9:45 AM SWITCHBOARD WIRE WORKER HELPER Pre-Admission Testing [facility] Pre Anesthesia Testing [address] [place] [id number] Pre-op testing (Primary Dx) 05/24/2024 1:09 PM SWITCHBOARD WIRE WORKER HELPER - 05/24/2024 11:59 PM SWITCHBOARD WIRE WORKER HELPER Hospital Encounter [facility] [address] [place] [phone] Right foot pain Discharge Disposition: Discharge to home or self care 05/24/2024 1:05 PM SWITCHBOARD WIRE WORKER HELPER - 05/24/2024 11:59 PM SWITCHBOARD WIRE WORKER HELPER Hospital Encounter [facility] [address] [place] [phone] Left foot pain Discharge Disposition: Discharge to home or self care 05/24/2024 12:30 PM SWITCHBOARD WIRE WORKER HELPER Office Visit [facility] Orthopaedic Surgery [address] [place] [address] [address] [place] [phone] Lakia Riddle MD Left foot pain (Primary Dx); Right foot pain; Acquired equinovarus deformity of left foot; Acquired equinovarus deformity of right foot 05/15/2024 Orders Only [facility] [address] [place] [address] Gallo Diehl MD PFO (patent foramen ovale) (Primary Dx) 03/14/2024 3:16 PM SWITCHBOARD WIRE WORKER HELPER - 03/14/2024 11:59 PM SWITCHBOARD WIRE WORKER HELPER Hospital Encounter [facility] [address] [place] [id number] Discharge Disposition: Discharge to home or self care 03/14/2024 3:15 PM SWITCHBOARD WIRE WORKER HELPER - 03/14/2024 11:59 PM SWITCHBOARD WIRE WORKER HELPER Hospital Encounter [facility] [address] [place] [phone] Discharge Disposition: Discharge to home or self care 03/14/2024 3:15 PM SWITCHBOARD WIRE WORKER HELPER - 03/14/2024 11:59 PM SWITCHBOARD WIRE WORKER HELPER Hospital Encounter [facility] ([facility] [address] [place] [address] Discharge Disposition: Discharge to home or self care 03/14/2024 3:14 PM SWITCHBOARD WIRE WORKER HELPER - 03/14/2024 11:59 PM SWITCHBOARD WIRE WORKER HELPER Hospital Encounter [facility] ([facility] [address] [place] [phone] Discharge Disposition: Discharge to home or self care 03/14/2024 3:13 PM SWITCHBOARD WIRE WORKER HELPER - 03/14/2024 11:59 PM SWITCHBOARD WIRE WORKER HELPER Hospital Encounter [facility] ([facility] [address] [place] [phone] Discharge Disposition: Discharge to home or self care 03/14/2024 3:12 PM SWITCHBOARD WIRE WORKER HELPER - 03/14/2024 11:59 PM SWITCHBOARD WIRE WORKER HELPER Hospital Encounter [facility] ([facility] [address] [place] [address] Discharge Disposition: Discharge to home or self care from Last 3 Months Surgical History Surgery Date Site/Laterality Comments PORT PLACEMENT CHEST >5 YEARS 07/15/2022 N/A removed 03/2024 CARDIAC STENT PLACEMENT OTHER SURGICAL HISTORY 03/28/2023 - 03/27/2024 LOOP recorder placement HYSTERECTOMY EYE SURGERY Bilateral cataracts CARDIAC CATHETERIZATION 05/29/2024 N/A Procedure: ATRIAL SEPTAL DEFECT (ASD), PATENT FORAMEN OVALE (PFO), FENESTRATION CLOSURE [id number]; Surgeon: Gallo Diehl MD; 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; Service: Cardiovascular; Laterality: N/A; Medical devices from this surgery are in the Medical Devices section. 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 Normocytic anemia Covid-19 2021 Depression Anxiety Peripheral neuropathy Foot drop, bilateral from chemot herapy Sleep apnea Asthma CVA (cerebral vascular accident) (HCC) Cataract Lung disease Family History Medical History Relation Name Comments Cancer Brother 1 Diabetes Brother 1 Lung disease Brother 1 Cancer Brother 2 Cancer Father Heart disease Mother Hypertension Mother Asthma Sister Cancer Sister Diabetes Sister Hypertension Sister Lung disease Sister Relation Name Status Comments Brother 1 Brother 2 Father Mother Sister Social History Tobacco Use Types Packs/Day Years Used Date Smoking Tobacco: Former Cigarettes 1.5 35 S tarted: 1972 Smokeless Tobacco: Never Tobacco Cessation:Counseling Given: Not Answered Comments:Quit smoking in 2010; AUDIT-C Answer Date Recorded Q1: How often do you have a drink containing alcohol? Never 05/29/2024 Q2: How many drinks containi ng alcohol do you have on a typical day when you are drinking? Patient does not drink Q3: How often do you have si x or more drinks on one occasion? Never 05/29/2024 Personal Safety Answer Date Recorded Have you ever been in or are you currently in a harmful physical or emotional relationship or is someone making you feel afraid or unsafe? Denies 05/29/2024 Comments Unknown Sex and Gender Information Value Date Recorded Sex Assigned at Not on file Legal Sex Female 9:14 PM SWITCHBOARD WIRE WORKER HELPER Gender Identity Not on file Sexual Orientation Not on file Obstetrics History Last Filed Vital Signs Vital Sign Reading Time Taken Comments Blood Pressure 118/62 05/30/2024 7:40 AM SWITCHBOARD WIRE WORKER HELPER Pulse 74 05/30/2024 9:02 AM SWITCHBOARD WIRE WORKER HELPER Temperature 37.4 C (99.4 F) 05/30/2024 7:40 AM SWITCHBOARD WIRE WORKER HELPER Respiratory Rate 18 05/30/2024 7:40 AM SWITCHBOARD WIRE WORKER HELPER Oxygen Saturation 95% 05/30/2024 7:40 AM SWITCHBOARD WIRE WORKER HELPER Inhaled Oxygen Concentration - - Weight 57.6 kg (126 lb 15.8 oz) 05/30/2024 5:45 AM SWITCHBOARD WIRE WORKER HELPER Height 162.6 cm (5' 4 ) 05/29/2024 6:49 AM SWITCHBOARD WIRE WORKER HELPER Body Mass Index 21.8 05/29/2024 6:49 AM SWITCHBOARD WIRE WORKER HELPER Plan of Treatment Health Maintenance Due Date Last Done Comments Albumin Creatinine Ratio, Urine 1960 Breast Cancer Screening-Mammogram 1960 Colon Cancer Screening-Colonoscopy 1960 Depression Screening 1960 Hepatitis C Screening 1960 Osteoporosis Screening-Bone Density Scan 1960 Dilated Eye Exam 1960 Foot Exam 1960 DTaP/Tdap/Td Vaccine (1 - Tdap) 1969 Hepatitis B Screening 1976 Zoster Vaccine (1 of 2) 1977 Lipid Panel 04/12/2019 04/12/2018, 04/11/2018 Well Visit 65+ 2023 Hemoglobin A1C 08/04/2023 02/03/2023, 09/26, 07/23/2022, Additional history exists Covid-19 Vaccine (2023-2 5 season) 2023 02/09/2023, 01/21/2022, 01/21/2022, Additional history exists Influenza Vaccine (#1) 2023 , 01/21/2022, 01/30/2021, Additional history exists Fall Risk Assessment 05/29/2025 05/29/2024 eGFR 05/30/2025 05/30/2024 Pneumococcal vaccine 65+ Completed 01/21/2022, 03/2014 Medical Devices Implanted Type Area Pack Worker Device Identifier Shelf Expiration Date Model / Serial / Lot [employer] Occluder Amplatzer Talisman Pfo 25-18mm [id number] - [id number] Implanted:Qty: 1 on 05/29/2024 by Gallo Diehl MD at [facility] Septal Defect Closure Device [employer] 03/27/2025 [id number]-[id number] / / [employer] System Closure Repair Femoral Artery Suture Mediated Perclose Prostyle 02121-49 - [id number] Implanted:Qty: 1 on 05/29/2024 by Gallo Diehl MD at [facility] [employer] 02/24/2026 [id number] / / [id number] Procedures Procedure Name Priority Date/Time Associated Diagnosis Comments TRANSTHORACIC ECHO (TTE) LIMITED/FOLLOW UP W LTD DOPPLER/CF WO CONTRAST Routine 05/30/2024 8:27 AM SWITCHBOARD WIRE WORKER HELPER POCT GLUCOSE DEVICE Routine 05/30/2024 8 :18 AM SWITCHBOARD WIRE WORKER HELPER EGFR Routine 05/30/2024 4:01 AM SWITCHBOARD WIRE WORKER HELPER DIFFERENTIAL AUTO Routine 05/30/2024 4:0 1 AM SWITCHBOARD WIRE WORKER HELPER CBC WITH AUTO DIFFERENTIAL Routine 05/30/2024 4:01 AM SWITCHBOARD WIRE WORKER HELPER BASIC METABOLIC PANEL Routine 05/30/2024 4:01 AM SWITCHBOARD WIRE WORKER HELPER POCT GLUCOSE DEVICE Routine 05/29/2024 9 :18 PM SWITCHBOARD WIRE WORKER HELPER POCT GLUCOSE DEVICE Routine 05/29/2024 5 :54 PM SWITCHBOARD WIRE WORKER HELPER POCT GLUCOSE DEVICE Routine 05/29/2024 1 2:52 PM SWITCHBOARD WIRE WORKER HELPER POCT GLUCOSE DEVICE Routine 05/29/2024 8 :58 AM SWITCHBOARD WIRE WORKER HELPER ATRIAL SEPTAL DEFECT CLOSURE Routine 05/29/2024 8:38 AM SWITCHBOARD WIRE WORKER HELPER PFO (patent foramen ovale) MA AN ELECTIVE ENDOTRACHEAL AIRWAY Routine 05/29/2024 8:12 AM SWITCHBOARD WIRE WORKER HELPER ECG 12-LEAD Routine 05/29/2024 7:03 AM SWITCHBOARD WIRE WORKER HELPER POCT GLUCOSE DEVICE Routine 05/29/2024 6 :38 AM SWITCHBOARD WIRE WORKER HELPER URINALYSIS AND REFLEX TO MICROSCOPIC AND CULTURE Routine 05/25/2024 12:12 PM SWITCHBOARD WIRE WORKER HELPER Pre-op testing XR FOOT RIGHT 3 OR MORE VIEWS Schedule Routine, Read Routine (OP Routine) 05/24/2024 1:24 PM SWITCHBOARD WIRE WORKER HELPER Left foot pain XR FOOT LEFT 3 OR MORE VIEWS Schedule Routine, Read Routine (OP Routine) 05/24/2024 1:24 PM SWITCHBOARD WIRE WORKER HELPER Right foot pain XR TRANSFER OF OUTSIDE FILMS Routine 03/14/2024 3:16 PM SWITCHBOARD WIRE WORKER HELPER XR TRANSFER OF OUTSIDE FILMS Routine 03/14/2024 3:15 PM SWITCHBOARD WIRE WORKER HELPER XR TRANSFER OF OUTSIDE FILMS Routine 03/14/2024 3:15 PM SWITCHBOARD WIRE WORKER HELPER XR TRANSFER OF OUTSIDE FILMS Routine 03/14/2024 3:14 PM SWITCHBOARD WIRE WORKER HELPER XR TRANSFER OF OUTSIDE FILMS Routine 03/14/2024 3:13 PM SWITCHBOARD WIRE WORKER HELPER XR TRANSFER OF OUTSIDE FILMS Routine 03/14/2024 3:12 PM SWITCHBOARD WIRE WORKER HELPER HEMOGLOBIN A1C Routine 04/12/2018 5:45 AM SWITCHBOARD WIRE WORKER HELPER LIPID PANEL Routine 04/12/2018 5:45 AM SWITCHBOARD WIRE WORKER HELPER from Last 3 Months or Most Recently Relevant to Health Maintenance Results * TRANSTHORACIC ECHO (TTE) LIMITED/FOLLOW UP W LTD DOPPLER/CF WO CONTRAST (05/30/2024 8:27 AM SWITCHBOARD WIRE WORKER HELPER) Anatomical Region Laterality Modality Ultrasound 05/30/2024 7:49 AM SWITCHBOARD WIRE WORKER HELPER Narrative 05/30/2024 12:27 PM SWITCHBOARD [employer]IRE [place] [address] Limited Echocardiogram Report Patient Name: PAULA ORELLANA S : 1960 Study Date: 05/30/2024 7:49:55 AM Gender: F Tech: THAD Location: [id number] Ref Provider: GALLO DIEHL Height(Cm): 163 BSA: 1.61 Weight(Kg): 57.6 Heart Rate: 64 BP: 115/64 Quality: Good Order Provider: GALLO DIEHL PROCEDURES: Echocardiographic Report: Limited transthoracic echocardiogram with 2D and color Doppler with Saline Contrast. INDICATIONS: S/P PFO Closure. MEASUREMENTS: 2D/MM Value Range EF Mod BP 60 % [ 54 - 74 ] 2D/MM Value Range - FINDINGS: Atrial Septum: Normal atrial septum with septal closure device present. Saline contrast study performed without evidence of right to left shunt. Left Ventricle: Normal left ventricular systolic function with no focal wall motion abnormalities. Ejection fraction is measured at 60 %. Pericardium: Normal pericardium with no significant pericardial effusion. CONCLUSIONS: Normal left ventricular systolic function with no focal wall motion abnormalities. Ejection fraction is measured at 60 %. Normal atrial septum with septal closure device present. Saline contrast study performed without evidence of right to left shunt. Normal pericardium with no significant pericardial effusion. Electronically Signed By: Zeina Zamora DO, JACINDA, LOU VOGEL 05/30/2024 12:27:25 PM SWITCHBOARD WIRE WORKER HELPER Procedure Note Zeina Zamora DO - 05/30/2024 [place] [address] Limited Echocardiogram Report Patient Name: PAULA ORELLANA S : 1960 Study Date: 05/30/2024 7:49:55 AM Gender: F Tech: THAD Location: [id number] Ref Provider: BROOK DIEHLIQ Height(Cm): 163 BSA: 1.61 Weight(Kg): 57.6 Heart Rate: 64 BP: 115/64 Quality: Good Order Provider: GALLO DIEHL PROCEDURES: Echocardiographic Report: Limited transthoracic echocardiogram with 2D and color Doppler with SalineContrast. INDICATIONS: S/P PFO Closure. MEASUREMENTS: 2D/MM Value Range EF Mod BP 60 % [ 54 - 74 ] 2D/MM Value Range - FINDINGS: Atrial Septum: Normal atrial septum with septal closure device present. Saline contraststudy performed without evidence of right to left shunt. Left Ventricle: Normal left ventricular systolic function with no focal wall motionabnormalities. Ejection fraction is measured at 60 %. Pericardium: Normal pericardium with no significant pericardial effusion. CONCLUSIONS: Normal left ventricular systolic function with no focal wall motionabnormalities. Ejection fraction is measured at 60 %. Normal atrial septum with septal closure device present. Saline contraststudy performed without evidence of right to left shunt. Normal pericardium with no significant pericardial effusion. Electronically Signed By: Zeina Zamora DO, JACINDA, LOU VOGEL 05/30/2024 12:27:25 PM SWITCHBOARD WIRE WORKER HELPER Gallo Diehl MD CV ECHO PROCEDURES Final Result * POCT glucose (05/30/2024 8:18 AM SWITCHBOARD WIRE WORKER HELPER) [facility] Signature Glucose, POC 127 70 - 199 mg/dL Blood 05/30/2024 8:18 AM SWITCHBOARD WIRE WORKER HELPER 05/30/2024 8:18 AM SWITCHBOARD WIRE WORKER HELPER Gallo Diehl MD LAB POCT ORDERABLES - DEVICE Fi nal Result [facility] [address] [place] [address] * eGFR (05/30/2024 4:01 AM SWITCHBOARD WIRE WORKER HELPER) eGFR 61 >=60 mL/min/1. 73 m2 Comment: Interpretive Data Reference Interval Normal >/= 90 mL/min/1.73m2 Mildly decreased* 60 - 89 mL/min/1.73m2 Mildly to moderately decreased 45 - 59 mL/min/1.73m2 Moderately to severely decreased 30 - 44 mL/min/1.73m2 Severely decreased 15 - 29 mL/min/1.73m2 Kidney Failure < 15 mL/min/1.73m2 *Relative to young adult level Estimated glomerular filtration rate is determined by the 2020 CKD-EPI equation recommended by the National Kidney Foundation (A Unifying Approach to GFR Estimation: Recommendations of the NKF-ASK Task Force on Reassessing the Inclusion of Race in Diagnosing Kidney Disease, JASN 2020). The CKD-EPI equation should not be used for patients with unstable renal function and has not been validated in children and those over 70. Current interpretive data was last reviewed 2021. Blood 05/30/2024 4:01 AM SWITCHBOARD WIRE WORKER HELPER 05/30/2024 4:33 AM SWITCHBOARD WIRE WORKER HELPER us Gallo Diehl MD LAB BLOOD ORDERABLES Final Resu lt [facility] [address] Department [place] [address] * Differential, auto (05/30/2024 4:01 AM SWITCHBOARD WIRE WORKER HELPER) Neutrophil abs 6.5 1.5 - 6.5 K/cumm Imm gran abs 0.0 0.0 - 0.1 K/cumm [facility] Lymphocyte abs 1.2 0.8 - 3.3 K/cumm [facility] Monocyte abs 0.6 0.2 - 0.8 K/cumm [facility] Eosinophil abs 0.0 0.0 - 0.5 K/cumm [facility] Basophil abs 0.0 0.0 - 0.1 K/cumm [facility] Neutrophil pct 77.2 % [facility] Comment: Interpretive Data Percent cell count reference ranges are not reported, since discordance with absolute values may lead to misinterpretation of CBC data. Current Interpretive Data was last revised on 2017. Imm gran pct 0.5 % [facility] Comment: Interpretive Data Percent cell count reference ranges are not reported, since discordance with absolute values may lead to misinterpretation of CBC data. Current Interpretive Data was last revised on 2017. Lymphocyte pct 14.4 % [facility] Comment: Interpretive Data Percent cell count reference ranges are not reported, since discordance with absolute values may lead to misinterpretation of CBC data. Current Interpretive Data was last revised on 2017. Monocyte pct 7.5 % [facility] Comment: Interpretive Data Percent cell count reference ranges are not reported, since discordance with absolute values may lead to misinterpretation of CBC data. Current Interpretive Data was last revised on 2017. Eosinophil pct 0.2 % [facility] Comment: Interpretive Data Percent cell count reference ranges are not reported, since discordance with absolute values may lead to misinterpretation of CBC data. Current Interpretive Data was last revised on 2017. Basophil pct 0.2 % [facility] Comment: Interpretive Data Percent cell count reference ranges are not reported, since discordance with absolute values may lead to misinterpretation of CBC data. Current Interpretive Data was last revised on 2017. Blood 05/30/2024 4:01 AM SWITCHBOARD WIRE WORKER HELPER 05/30/2024 4:12 AM SWITCHBOARD WIRE WORKER HELPER us Gallo Diehl MD LAB BLOOD ORDERABLES Final Resu lt [facility] [id number] Department of Laboratories [place], [place] [id number] * (ABNORMAL) CBC with auto differential (05/30/2024 4:01 AM SWITCHBOARD WIRE WORKER HELPER) WBC 8.5 3.8 - 9.9 K/cumm Hgb 11.8(L) 11.9 - 15.5 g/dL [facility] Hct 37.2 35.6 - 45.5 % [facility] Plt 176 150 - 400 K/cumm [facility] MPV 9.0(L) 9.1 - 12.3 fL [facility] RBC 4.07 3.90 - 5.20 M/cumm [facility] MCV 91.4 81.3 - 96.4 fL [facility] MCH 29.0 27.1 - 33.3 pg [facility] MCHC 31.7(L) 32.3 - 35.7 g/dL [facility] RDW CV 14.6 11.1 - 14.9 % [facility] RDW SD 48.1 35.7 - 48.1 fL [facility] NRBC abs 0.00 0.00 - 0.01 K/cumm [facility] Blood 05/30/2024 4:01 AM SWITCHBOARD WIRE WORKER HELPER 05/30/2024 4:12 AM SWITCHBOARD WIRE WORKER HELPER us Gallo Diehl MD LAB BLOOD ORDERABLES Final Resu lt [facility] [address] [place] [address] * Basic metabolic panel (05/30/2024 4:01 AM SWITCHBOARD WIRE WORKER HELPER) Sodium 141 135 - 145 mmol/L Potassium, pl 3.8 3.3 - 4.9 mmol/L [facility] Chloride 103 97 - 110 mmol/L [facility] CO2 25 22 - 32 mmol/L [facility] Anion gap 13 2 - 15 mmol/L [facility] BUN 22 6 - 25 mg/dL [facility] Creatinine 1.02 0.60 - 1.10 mg/dL [facility] Glucose 128 70 - 199 mg/dL [facility] Comment: Interpretive Data Fasting glucose >/= 126 mg/dl is diagnostic for diabetes. Fasting is defined as no caloric intake for at least 8 hours. Fasting glucose between 100 mg/dl to 125 mg/dl is diagnostic of prediabetes. In a patient with classic symptoms of hyperglycemia or hyperglycemic crisis, a random glucose >/= 200 mg/dl is diagnostic for diabetes. In the absence of unequivocal hyperglycemia, results should be confirmed by repeat testing. The classification and Diagnosis of Diabetes Diabetes Care 2021; 46: S19-S40. Current interpretive data was last revised 2022. Calcium 9.8 8.5 - 10.3 mg/dL [facility] Blood 05/30/2024 4:01 AM SWITCHBOARD WIRE WORKER HELPER 05/30/2024 4:33 AM SWITCHBOARD WIRE WORKER HELPER us Gallo Diehl MD LAB BLOOD ORDERABLES Final Resu lt Performing Organization Address [facility] de Phone Number [facility]EENA [address] [address] [facility] [place] [address] * (ABNORMAL) POCT glucose (05/29/2024 9:18 PM SWITCHBOARD WIRE WORKER HELPER) Glucose, POC 213(H) 70 - 199 mg/dL Blood 05/29/2024 9:18 PM SWITCHBOARD WIRE WORKER HELPER 05/29/2024 9:18 PM SWITCHBOARD WIRE WORKER HELPER us Gallo Diehl MD LAB POCT ORDERABLES - DEVICE Fi nal Result Performing Organization Address [facility] de Phone Number EVANSTEENA [address] [address] [facility] [place] [address] * POCT glucose (05/29/2024 5:54 PM SWITCHBOARD WIRE WORKER HELPER) Glucose, POC 115 70 - 199 mg/dL Blood 05/29/2024 5:54 PM SWITCHBOARD WIRE WORKER HELPER 05/29/2024 5:54 PM SWITCHBOARD WIRE WORKER HELPER us Gallo Diehl MD LAB POCT ORDERABLES - DEVICE Fi nal Result Performing Organization Address [facility] de Phone [facility] [address] [address] [facility] [place] [address] * (ABNORMAL) POCT glucose (05/29/2024 12:52 PM SWITCHBOARD WIRE WORKER HELPER) Glucose, POC 224(H) 70 - 199 mg/dL Blood 05/29/2024 12:5 2 PM SWITCHBOARD WIRE WORKER HELPER 05/29/2024 12:52 PM SWITCHBOARD WIRE WORKER HELPER us Gallo Diehl MD LAB POCT ORDERABLES - [place] [address] [address] [place] [address] * POCT glucose (05/29/2024 8:58 AM SWITCHBOARD WIRE WORKER HELPER) Glucose, POC 120 70 - 199 mg/dL Blood 05/29/2024 8:58 AM SWITCHBOARD WIRE WORKER HELPER 05/29/2024 8:58 AM SWITCHBOARD WIRE WORKER HELPER Gallo Diehl MD LAB POCT ORDERABLES - DEVICE Fi nal Result Performing Organization Address [facility] [place] [address] [address] [place] [address] * ATRIAL SEPTAL DEFECT CLOSURE (05/29/2024 8:38 AM SWITCHBOARD WIRE WORKER HELPER) Anatomical Region Laterality Modality X-Ray Angiograph y Narrative 05/29/2024 8:48 AM SWITCHBOARD WIRE WORKER HELPER Table formatting from the original result was not included. ATRIAL SEPTAL DEFECT (ASD), PATENT FORAMEN OVALE (PFO), FENESTRATION CLOSURE [id number] Brief Op Note Attending Cardiothoracic Icu Rn: Gallo Diehl MD Primary: Gallo Diehl MD CV Documenter: Selam Hernández RN CV Scrub: Ezra Douglass; Avis Lance CV Employee Relations Representative: Patricia Bowen RN; Shawna Cooper RN Date of Procedure: 05/29/2024 Specimens: No specimen collected in procedure Preoperative Diagnosis: Pre-op Diagnosis * PFO (patent foramen ovale) [Q21.12] Postoperative Diagnosis: Post-op Diagnosis * PFO (patent foramen ovale) [Q21.12] Name of Procedure: Procedure(s): ATRIAL SEPTAL DEFECT (ASD), PATENT FORAMEN OVALE (PFO), FENESTRATION CLOSURE [id number] Implants: Implant Name Type Inv. Item Serial No. Pack Worker Lot No. LRB No. Used Action [employer] System Closure Repair Femoral Artery Suture Mediated Perclose Prostyle 48460-90 - [id number] [employer] System Closure Repair Femoral Artery Suture Mediated Perclose Prostyle 82832-60 [employer] [id number] N/A 1 Implanted [employer] Occluder Amplatzer Talisman Pfo 25-18mm [id number] - [id number] Septal Defect Closure Device [employer] Occluder Amplatzer Talisman Pfo 25-18mm [id number] [employer] N/A 1 Implanted CARDIOVASCULAR PROCEDURE: Ultrasound guided venous access RCFV access with ultrasound placement of 8f sheath Perclose closure of the RCFV with manual compression PFO closure with Amplatz device PREPROCEDURE DIAGNOSES: 64-year-old female with history of CVA, loop recorder implant did not yield any atrial fibrillation, she was found to have PFO which was felt to be reason for CVA undergoing PFO closure therefore. Case was proctored by Dr. Brandan Cifuentes from [facility]. COMPLICATIONS: None ESTIMATED BLOOD LOSS: 5 mL Anesthesia was provided by anesthesia team PROCEDURAL NARRATIVE: After informed consent was obtained where risks benefits and alternatives of the procedure including option for medical management were discussed with the patient and the present family members. Risks discussed include but are not limited to stroke heart attack, , emergency bypass surgery, vascular injury, pain at site of sheath insertion, vascular surgery, embolic event with loss of limb and loss of digits, dye allergy, dye reaction, dialysis, at a rate of 1/100 for the interventional part of the procedure. All questions were answered to their satisfaction Pt was intubated/sedated per anesthesia Lidocaine was injected in the femoral venous access site. Ultrasound evaluation done for possible access site, patent vessel observed, real-time visualization of vascular needle entry done during access, and images were stored on the machine as permanent record. 8F sheath followed by 16F sheath was placed for easy advancement of the amulet sheath. Perclose RCFV site ACOSTA was done pre procedure for sizing and was monitored by anesthesia and interpreted by Dr Simpson. Multipurpose catheter with Amplatz wire was used to cross the PFO. Device sheath was advanced into left atrium under fluoroscopy guidance and subsequently 25 mm device was deployed as per standard protocol. Acosta confirmed good device position and closure of PFO. Device was deployed delivery catheter was removed and pre-existing Perclose sutures was deployed for hemostasis. PLAN Pt will get aspirin 81 mg p.o. daily and plavix 75mg qd for 45 days Follow up with Dr. Simpson/Duyne as outpt in 2-4 wks Follow-up echocardiogram with bubble study will be done subsequently. Gallo Diehl MD Date: 05/29/2024 Time: 8:43 AM Result [facility] Gallo Diehl MD CV CARDIAC CATH PROCEDURES Yuli l Result * MA AN ELECTIVE ENDOTRACHEAL AIRWAY (05/29/2024 8:12 AM SWITCHBOARD WIRE WORKER HELPER) Narrative Gerald Retana AA - 05/29/2024 8:12 AM SWITCHBOARD WIRE WORKER HELPER Gerald Retana AA 05/29/2024 8:13 AM Airway Patient location: OR Urgency: elective Date/time: 05/29/2024 8:04 AM Indications for airway management: anesthesia Difficult airway: no Emergent airway documentation: Risks and benefits discussed: yes Consent obtained: yes Consent given by: patient Airway prep: Preoxygenated: yes Patient position: sniffing Mask difficulty assessment: 1 - vent by mask Spontaneous ventilation during airway: absent Sedation level during airway: GA Final airway details: Final airway type: endotracheal airway Tube type: ETT ETT size: 7.0 mm Cuffed: yes Technique used for successful ETT placement: video laryngoscopy Devices/Methods used in placement: stylet Insertion site: oral Blade type: Nasreen Video blade type: Pelaez Blade size: 3 Cormack-Lehane (video): grade I - full view of glottis Cuff volume: 6 mL Cuff inflated with: air ETT to lips: 21 cm Placement verified by: auscultation and CO2 detection Airway secured with: silk tape Number of attempts: 1 Chavez Chiu MD ANESTHESIA ORDERABLES Final Result * ECG 12 lead (05/29/2024 7:03 AM SWITCHBOARD WIRE WORKER HELPER) 05/29/2024 7:03 AM SWITCHBOARD WIRE WORKER HELPER Narrative [facility] - 05/29/2024 11:11 AM SWITCHBOARD WIRE WORKER HELPER Vent Rate: 68 bpm RR Interval: 878 msec MA Interval: 184 msec QRS Duration: 97 msec QT Interval: 425 msec QTC Interval: 442 msec P-R-T [place]: 72 - -19 - 60 degrees IMPRESSION: SINUS RHYTHM SEPTAL MYOCARDIAL INFARCTION , PROBABLY OLD VERSUS POOR R-WAVE PROGRESSION ABNORMAL ECG Electronically Signed By: Pantera Wiggins MD Gallo Diehl MD ECG ORDERABLES Final Result [facility] * POCT glucose (05/29/2024 6:38 AM SWITCHBOARD WIRE WORKER HELPER) Glucose, POC 111 70 - 199 mg/dL Blood 05/29/2024 6:38 AM SWITCHBOARD WIRE WORKER HELPER 05/29/2024 6:38 AM SWITCHBOARD WIRE WORKER HELPER Gallo Diehl MD LAB POCT ORDERABLES - DEVICE Fi nal Result [facility] [address] [address] [place] [address] * Urinalysis reflex to microscopic and culture Urine, clean voided (05/25/2024 12:12 PM SWITCHBOARD WIRE WORKER HELPER) Color, ur Straw Yellow Clarity, ur Clear Clear [facility] Specific gravity, ur 1.004 1.003 - 1.030 [facility] pH, urine 7.5 [facility] Comment: Interpretive Data U rine pH is affected by diet, medications, systemic acid-base disturbances, and renal tubular function. pH may affect urinary stone formation. For example, urine pH below 6.0 may help reduce the tendency for calcium phosphate stones and pH greater than 6.0 may reduce the tendency for uric acid stone formation. Source: [facility] Current Interpretive Data was last revised on 2017 Protein, ur ql Negative Negative [facility] Glucose, ur ql Negative Negative [facility] Ketones, ur Negative Negative [facility] Bilirubin, ur Negative Negative [facility] Blood, ur Negative Negative [facility] Urobilinogen, ur <2.0 <2.0 mg/dL [facility] Nitrite, ur Negative Negative [facility] Leukocyte esterase, ur Negative Negative [facility] UA reflex comment Reflex conditions for microscopic UA and culture not met. [facility] Urine, clean voided 05/25/2024 12:12 PM SWITCHBOARD WIRE WORKER HELPER 05/25/2024 12:21 PM SWITCHBOARD WIRE WORKER HELPER us Marianne Matos NP LAB MICROBIOLOGY - GENERAL ORD ERABLES Final Result [facility] [address] [address] [place] [address] * XR Foot Right 3 or More Views (05/24/2024 1:24 PM SWITCHBOARD WIRE WORKER HELPER) Anatomical Region Laterality Modality Lower Extremities, Foot Right Computed Radiography 05/24/2024 1:31 PM SWITCHBOARD WIRE WORKER HELPER Impressions 05/24/2024 1:31 PM SWITCHBOARD WIRE WORKER HELPER 1. 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 2. Apparent lesser hammertoe deformities with ankle fixed in plantar flexion on these nonweightbearing images. Electronically signed by: Maximus Murry MD Narrative 05/24/2024 1:31 PM SWITCHBOARD WIRE WORKER HELPER EXAMINATION: XR FOOT LEFT 3 OR MORE VIEWS, XR FOOT RIGHT 3 OR MORE VIEWS HISTORY: Bilateral foot pain FINDINGS: 3 views of the left foot are compared to examination dated 10/13/2023. Old healed internally fixated distal right 5th metatarsal fracture. Apparent hammertoe deformities on these nonweightbearing images. The ankle is fixed in flexion. Diffuse demineralization. No acute fracture. 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 No soft tissue abnormalities. 3 views of the right foot are submitted without comparison. Apparent lesser hammertoe deformities on these nonweightbearing images. Diffuse demineralization. No fracture. 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 The ankle is fixed in plantar flexion. Nonspecific cystic changes in the navicular. No soft tissue abnormalities. Procedure Note Maximus Murry MD - 05/24/2024 EXAMINATION: XR FOOT LEFT 3 OR MORE VIEWS, XR FOOT RIGHT 3 OR MORE VIEWS HISTORY: Bilateral foot pain FINDINGS: 3 views of the left foot are compared to examination dated 10/13/2023. Old healed internally fixated distal right 5th metatarsal fracture. Apparent hammertoe deformities on these nonweightbearing images. The ankle is fixed in flexion. Diffuse demineralization. No acute fracture. 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 No soft tissue abnormalities. 3 views of the right foot are submitted without comparison. Apparent lesser hammertoe deformities on these nonweightbearing images. Diffuse demineralization. No fracture. 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 The ankle is fixed in plantar flexion. Nonspecific cystic changes in the navicular. No soft tissue abnormalities. IMPRESSION: 1. 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 2. Apparent lesser hammertoe deformities with ankle fixed in plantar flexion on these nonweightbearing images. Electronically signed by: Maximus Murry MD Lakia Riddle MD IMG XR PROCEDURES Final Re sult * XR Foot Left 3 or More Views (05/24/2024 1:24 PM SWITCHBOARD WIRE WORKER HELPER) Anatomical Region Laterality Modality Lower Extremities, Foot Left Computed Radiography 05/24/2024 1:31 PM SWITCHBOARD WIRE WORKER HELPER Impressions 05/24/2024 1:31 PM SWITCHBOARD WIRE WORKER HELPER 1. 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 2. Apparent lesser hammertoe deformities with ankle fixed in plantar flexion on these nonweightbearing images. Electronically signed by: Maximus Murry MD Narrative 05/24/2024 1:31 PM SWITCHBOARD WIRE WORKER HELPER EXAMINATION: XR FOOT LEFT 3 OR MORE VIEWS, XR FOOT RIGHT 3 OR MORE VIEWS HISTORY: Bilateral foot pain FINDINGS: 3 views of the left foot are compared to examination dated 10/13/2023. Old healed internally fixated distal right 5th metatarsal fracture. Apparent hammertoe deformities on these nonweightbearing images. The ankle is fixed in flexion. Diffuse demineralization. No acute fracture. 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 No soft tissue abnormalities. 3 views of the right foot are submitted without comparison. Apparent lesser hammertoe deformities on these nonweightbearing images. Diffuse demineralization. No fracture. 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 The ankle is fixed in plantar flexion. Nonspecific cystic changes in the navicular. No soft tissue abnormalities. Procedure Note Maximus Murry MD - 05/24/2024 EXAMINATION: XR FOOT LEFT 3 OR MORE VIEWS, XR FOOT RIGHT 3 OR MORE VIEWS HISTORY: Bilateral foot pain FINDINGS: 3 views of the left foot are compared to examination dated 10/13/2023. Old healed internally fixated distal right 5th metatarsal fracture. Apparent hammertoe deformities on these nonweightbearing images. The ankle is fixed in flexion. Diffuse demineralization. No acute fracture. 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 No soft tissue abnormalities. 3 views of the right foot are submitted without comparison. Apparent lesser hammertoe deformities on these nonweightbearing images. Diffuse demineralization. No fracture. 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 The ankle is fixed in plantar flexion. Nonspecific cystic changes in the navicular. No soft tissue abnormalities. IMPRESSION: 1. 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 2. Apparent lesser hammertoe deformities with ankle fixed in plantar flexion on these nonweightbearing images. Electronically signed by: Maximus Murry MD Lakia Riddle MD IMG XR PROCEDURES Final Re sult * XR Outside Reference (03/14/2024 3:16 PM SWITCHBOARD WIRE WORKER HELPER) Impressions [email or web address] - 03/14/2024 3:16 PM SWITCHBOARD WIRE WORKER HELPER These images are for Reference purposes only and have not been reviewed by [facility]. There will be no report generated by a [facility] Radiologist. Narrative [facility] - 03/14/2024 3:16 PM SWITCHBOARD WIRE WORKER HELPER EXAMINATION: Images For Reference Purposes Only Lakia Riddle MD IMG XR PROCEDURES Final Re sult Performing Organization Address [facility] Co de Phone Number [email or web address] * XR Outside Reference (03/14/2024 3:15 PM SWITCHBOARD WIRE WORKER HELPER) Impressions [email or web address] - 03/14/2024 3:15 PM SWITCHBOARD WIRE WORKER HELPER These images are for Reference purposes only and have not been reviewed by [facility]. There will be no report generated by a [facility] Radiologist. Narrative [facility] - 03/14/2024 3:15 PM SWITCHBOARD WIRE WORKER HELPER EXAMINATION: Images For Reference Purposes Only us Lakia Riddle MD IMG XR PROCEDURES Final Re sult Performing Organization Address [facility] Co de Phone Number [email or web address] * XR Outside Reference (03/14/2024 3:15 PM SWITCHBOARD WIRE WORKER HELPER) Impressions [email or web address] - 03/14/2024 3:15 PM SWITCHBOARD WIRE WORKER HELPER These images are for Reference purposes only and have not been reviewed by [facility]. There will be no report generated by a [facility] Radiologist. Narrative [facility] - 03/14/2024 3:15 PM SWITCHBOARD WIRE WORKER HELPER EXAMINATION: Images For Reference Purposes Only us Lakia Riddle MD IMG XR PROCEDURES Final Re sult Performing Organization Address [facility] Co de Phone Number [email or web address] * XR Outside Reference (03/14/2024 3:14 PM SWITCHBOARD WIRE WORKER HELPER) Impressions [facility] - 03/14/2024 3:14 PM SWITCHBOARD WIRE WORKER HELPER These images are for Reference purposes only and have not been reviewed by [facility]. There will be no report generated by a [facility] Radiologist. Narrative [facility] - 03/14/2024 3:14 PM SWITCHBOARD WIRE WORKER HELPER EXAMINATION: Images For Reference Purposes Only Lakia Riddle MD IMG XR PROCEDURES Final Re sult Performing Organization Address [facility] Co de Phone Number [email or web address] * XR Outside Reference (03/14/2024 3:13 PM SWITCHBOARD WIRE WORKER HELPER) Impressions [email or web address] - 03/14/2024 3:13 PM SWITCHBOARD WIRE WORKER HELPER These images are for Reference purposes only and have not been reviewed by [facility]. There will be no report generated by a [facility] Radiologist. Narrative [facility] - 03/14/2024 3:13 PM SWITCHBOARD WIRE WORKER HELPER EXAMINATION: Images For Reference Purposes Only us Lakia Riddle MD IMG XR PROCEDURES Final Re sult Performing Organization Address [facility] Co de Phone Number [email or web address] * XR Outside Reference (03/14/2024 3:12 PM SWITCHBOARD WIRE WORKER HELPER) Impressions [email or web address] - 03/14/2024 3:12 PM SWITCHBOARD WIRE WORKER HELPER These images are for Reference purposes only and have not been reviewed by [facility]. There will be no report generated by a [facility] Radiologist. Narrative [facility] - 03/14/2024 3:12 PM SWITCHBOARD WIRE WORKER HELPER EXAMINATION: Images For Reference Purposes Only us Lakia Riddle MD IMG XR PROCEDURES Final Re sult Performing Organization Address [facility] Co de Phone Number [email or web address] * (ABNORMAL) Hemoglobin A1c (04/12/2018 5:45 AM SWITCHBOARD WIRE WORKER HELPER) Hemoglobin A1c % 5.9(H) 4.0 - 5.6 % 04/12/2018 6:40 AM [facility] HISTORICAL RESULTS Comment: ADA 2016 GUIDELINES: Initial Diagnostic Criteria HbA1c Result: Interpretation: <5.7% Normal 5.7-6.4% At risk for diabetes mellitus >=6.5% Consistent with diabetes mellitus Diabetes monitoring Target value (ADA Recommended) <7% 04/12/2018 5:45 AM SWITCHBOARD WIRE WORKER HELPER 04/12/2018 6:02 AM SWITCHBOARD WIRE WORKER HELPER Narrative [facility] HISTORICAL RESULTS - 04/12/2018 6:40 AM SWITCHBOARD WIRE WORKER HELPER Comment In AM us Guicho Nova MD LAB BLOOD ORDERABLES Final Resul t Performing Organization Address [facility] de Phone Number [facility] HISTORICAL RESULTS * Lipid panel (04/12/2018 5:45 AM SWITCHBOARD WIRE WORKER HELPER) Triglycerides 124 0 - 149 mg/dL 04/12/2018 6:42 AM [facility] HISTORICAL RESULTS Comment: National Lipid Association/NCEP Guidelines: Normal < 150 mg/dL Borderline high 150-199 mg/dL High 200-499 mg/dL Very High >=500 mg/dL Cholesterol 118 0 - 199 mg/dL 04/12/2018 6:42 AM [facility] HISTORICAL RESULTS Comment: National Lipid Association/NCEP Guidelines: Desirable < 200 mg/dL Borderline high: 200-239 mg/dL High Risk: >=240 mg/dL HDL Cholesterol 52 mg/dL 9 6:42 AM SWITCHBOARD WIRE WORKER HELPER [facility] HISTORICAL RESULTS Comment: Reference Ranges: Males: >=40 mg/dL Females: >=50 mg/dL LDL Cholesterol, Calc 41 0 - 129 mg/dL Comment: National Lipid Association/NCEP Guidelines: Optimal < 100 mg/dL Near Optimal 100-129 mg/dL Borderline high 130-159 mg/dL High >=160 mg/dL Cholesterol/HDL Ratio 2.3 Comment: Optimal < 3.5:1 High > 5:1 04/12/2018 5:45 AM SWITCHBOARD WIRE WORKER HELPER 04/12/2018 6:02 AM SWITCHBOARD WIRE WORKER HELPER Narrative [facility] HISTORICAL RESULTS - 04/12/2018 6:42 AM SWITCHBOARD WIRE WORKER HELPER Comment In AM Guicho Nova MD LAB BLOOD ORDERABLES Final Resul t [facility] HISTORICAL RESULTS from Last 3 Months or Most Recently Relevant to Health Maintenance Insurance [facility] MEDICARE SOLUTIONS MEDICARE SOLUTIONS IDPA Advance Directives For more information, please contact: [phone] * Full Code (Latest Code Status on File) Date Activated Date Inactivated Comments 05/29/2024 10:10 AM 05/30/2024 3:37 PM Care Teams Blender Snuff Relationship Specialty Start Date End Date Agustin Flor MD PCP - General Internal Medicine 06/28/22 Annie Simpson MD [address] [place] [address] Consulting Physician Cardiology 05/30/24
--- OUTSIDE RECORDS SUMMARY | 2024-06-05 21:40 | XMS_ITS | Referral Summary ---
Author Organization [facility] Address [address] [place] [address] Care Team Providers Care Mobile Lab Technician Name Role Phone Agustin Flor MD Primary Care Provider [phone] Shreyas Phillips MD Unavailable Bebe HernandezC Unavailable [phone] Nanda Rausch RN Unavailable Unavailable Source Comments [facility],non-owned Affiliates and Associated Physician Practices is amultiple site organization consisting of ambulatory clinics and hospital sitesin [place], [place], [place] and [place]. This disclosure is being madepursuant to the Care Everywhere program and may not contain all information available regarding this patient. Last updated 17.[facility] Encounters Date Type Department Care Team Description 05/28/2024 Travel 05/28/2024 11:00 AM REFUND CLERK - 05/28/2024 11:59 PM REFUND CLERK Hospital Encounter [facility] [address] [place] [address] Shreyas Phillips MD Discharge Disposition: Home or Self Care 04/26/2024 Travel 04/26/2024 6:01 AM REFUND CLERK - 04/26/2024 9:05 AM REFUND CLERK Hospital Encounter [facility] OP [address] [place] [address] Shreyas Phillips MD [facility] Radiology Discharge Disposition: Home or Self Care 03/22/2024 Orders Only [facility] [address] [place] [phone] Nanda Rausch, RN B-cell lymphoma, unspecified B-cell lymphoma type, unspecified body region ([facility]) 03/19/2024 Orders Only [facility] [address] [place] [phone] Nanda Rausch, RN B-cell lymphoma, unspecified B-cell lymphoma type, unspecified body region ([facility]) 03/16/2024 Travel 03/16/2024 2:20 PM REFUND CLERK - 03/16/2024 11:59 PM REFUND CLERK Hospital Encounter [facility] [address] [place] [address] Shreyas Phillips MD Discharge Disposition: Home or Self Care 03/15/2024 Telephone [facility] [address] [place] [address] Emeli Forrester 03/15/2024 Orders Only [facility] [address] [place] [phone] Shreyas Phillips MD 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 ([facility]) 03/10/2024 Refill [facility] [address] [place] [address] Shreyas Phillips MD MEDICATION REFILL 03/08/2024 Telephone [facility] - ENT [address] [place] [phone] Sorin Bowden, DECISION SCIENCE ANALYST-MARKET RESEARCH MANAGER LABS ONLY from Last 3 Months Allergies Active Allergy [...] diabetes mellitus with diabetic nephropathy, unspecified whether lobsterman insulin use (HCC) Use 1 Needle as [...] 40 MG tabletIndications:C oronary artery disease involving s[place]ovia heart without angina pectoris, unspecified vessel or [...] 09/03/2022 Immunizations Name Administration Dates Next Due [place]OV[place] CK1 BIVALENT 12Y+ 30mcg/0.3ML 01/21/2022 [employer] Pfizer primary monoval ent 12+ yr 0.3mL Purple cap 01/21/2022,12/28/2020 FLU VACCINE QUAD IIV4 SPLIT 0.25 ML IM 01/25/2020,01/17/2019 INFLUENZA [id number], HISTORIC VACCINE 01/21/2022 INFLUENZA VACCINE 12/26/2016,03/28/2014 INFLUENZA [...] care, and heating? Not very hard 11/20/2022 [facility] [place] of Occupat ional Health - Occupational Stress [...] place to sleep or slept in a mcfp (including now)? No 11/20/2022 Sex and Gender Information Value Date Recorded Sex Assigned at Not on file Gender Identity Female 08/19/2023 1:35 PM CDT Sexual Orientation Not on file Last Filed Vital Signs Vital Sign Reading Time Taken Comments Blood Pressure 140/83 04/26/2024 8:50 AM REFUND CLERK Pulse 68 04/26/2024 8:50 AM REFUND CLERK Temperature 36.6 C (97.8 F) 04/26/2024 8:31 AM REFUND CLERK Respiratory Rate 12 04/26/2024 8:50 AM REFUND CLERK Oxygen Saturation 94% 04/26/2024 8:50 AM REFUND CLERK Inhaled Oxygen Concentration - - Weight 62.6 kg (138 lb) 04/26/2024 6:18 AM REFUND CLERK Height 163.8 cm (5' 4.5 ) 04/26/2024 6:18 AM REFUND CLERK Body Mass Index 23.32 04/26/2024 6:18 AM REFUND CLERK Functional Status Functional Status Response Date of [...] Info) Description 06/15/2024 11:40 AM CDT Appointment [facility] [address] [place] [address] Shreyas Phillips MD [address] [place] [address] Medical Devices Implanted Type Area Portuguese Tutor Device Identifier Shelf Expiration Date Model / Serial / Lot Port Implinfn Powerport Clrvu Argd Kika Implanted:Qty: 1 on 07/15/2022 at [facility] Right: Chest [employer] 11/26/2023 [id number] / / [id number] Description:RIJ by Milena Spivey inton Procedures Procedure Name Priority Date/Time Associated Diagnosis Comments CT CHEST ABDOMEN PELVIS W CONT Routine 05/28/2024 11:38 AM REFUND CLERK History of non-Hodgkin's lymphoma CREATININE - POCT INTERFACED Routine 05/28/2024 11:26 AM REFUND CLERK IR CENTRAL LINE REMOVAL Routine 04/26/2024 8:32 AM REFUND CLERK B-cell lymphoma, unspecified B-cell lymphoma type, unspecified body region (HCC) GLUCOSE - POINT OF CARE Routine 04/26/2024 6:51 AM REFUND CLERK PT-INR SLH Routine 04/26/2024 6:47 AM REFUND CLERK Preop testing LDH BLOOD STAT 03/16/2024 2:26 PM REFUND CLERK 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) CBC W AUTO DIFFERENTIAL STAT 03/16/2024 2:26 PM REFUND CLERK 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) COMPREHENSIVE METABOLIC PANEL STAT 03/16/2024 2:26 PM REFUND CLERK 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) HEMOGLOBIN A1C Routine 02/03/2023 11:03 AM REFUND CLERK Bilateral foot pain HEPATITIS C RNA QUANTITATIVE STAT 07/16/2022 12:15 PM CDT Non-Hodgkin's lymphoma, unspecified body region, unspecified non-Hodgkin lymphoma type (HCC) High risk for chemotherapy-induced infectious complication from Last 3 Months or Most Recently Relevant to Health Maintenance Results * CT Chest Abdomen Pelvis W Cont (05/28/2024 11:38 AM REFUND CLERK) Anatomical Region Laterality Modality Chest, Abdomen, Pelvis Computed Tomography 05/28/2024 1:52 PM REFUND CLERK Impressions 05/28/2024 4:28 PM REFUND CLERK Impression: 1.No evidence of lymphadenopathy in the chest, abdomen, and pelvis. 2.Redemonstrated are multiple hepatic and renal cysts which may be suggestive of polycystic kidney-liver disease. Report was dictated by Jose Lagos MD, (Integrated VIR resident). > Dictated by Jose Lagos MD (Towel Rolling Machine Operator) 05/28/2024 1:52 PM I, Nakul Bridges MD have personally reviewed and interpreted this examination/study. > Interpreting Provider: Nakul Bridges MD on 05/28/2024 4:28 PM Narrative 05/28/2024 4:28 PM REFUND CLERK PROCEDURE: CT CHEST ABDOMEN PELVIS W CONT, DATE/TIME OF EXAM: 05/28/2024 11:39 AM, LOCATION [facility] INDICATION: Z85.72: History of non-Hodgkin's lymphoma ADDITIONAL [...] DATE/TIME OF EXAM: 05/28/2024 11:39 AM, LOCATION [facility] INDICATION: Z85.72: History of non-Hodgkin's lymphoma ADDITIONAL [...] resident). > Dictated by Jose Lagos MD (Towel Rolling Machine Operator) 05/28/2024 1:52 PM INakul MD have personally reviewed and interpreted this examination/study. > Interpreting Provider: Nakul Bridges MD on 05/28/2024 4:28 PM Shreyas Phillips MD CT ORDERABLES * CREATININE - POCT INTERFACED (05/28/2024 11:26 AM REFUND CLERK) Creatinine POCT 0.72 0.30 - 1.30 mg/dL 05/28/2024 11:30 AM REFUND CLERK [facility] eGFR >90 >=90 mL/min/1.7 3 m2 05/28/2024 11:30 AM REFUND CLERK [facility] Blood BLOOD SPECIMEN / Unknown 05/28/2024 11:26 AM REFUND CLERK 05/28/2024 11:30 AM REFUND CLERK Shreyas Phillips MD LAB - POINT OF CARE ORDERABLES [address] [address], [facility] [phone] * IR Central Line Removal (04/26/2024 8:32 AM REFUND CLERK) Anatomical Region Laterality Modality X-Ray Angiograph y 04/26/2024 3:21 PM REFUND CLERK Impressions 05/07/2024 8:15 AM REFUND CLERK Impression: Successful removal of a right internal jugular approach since lumen 8 Ethiopian chest port under fluoroscopic guidance. Note: Keep the dressing clean and dry for 5 days. IDr. Francisca PA, was present and performed/supervised the entire procedure. > Dictated by Aguila Pritchett (Towel Rolling Machine Operator) 04/26/2024 3:21 PM IValeria MD have personally reviewed and interpreted this examination/study. > Interpreting Provider: Valeria Hernandez MD on 05/07/2024 8:15 AM Narrative 05/07/2024 8:15 AM REFUND CLERK PROCEDURE: IR CENTRAL LINE REMOVAL DATE/TIME OF EXAM: 04/26/2024 8:33 AM CLINICAL INFORMATION: History: This is a 64-year-old -[place] female with a history of lymphoma who previously had a chest port placed for chemotherapy administration. She has completed chemotherapy and remains remission and therefore presents for chest port removal Operators: BIJAL Cartagena Anesthesia: 1.Local anesthesia - 10 mL of 1% Lidocaine 2.Intravenous Anxiolysis- Versed 1 mg and Fentanyl 50 mcg Procedure: Removal of a right internal jugular approach 1 lumen 8 Ethiopian chest port under fluoroscopic guidance. Fluoroscopic time: 0.1 minutes Procedure details: The procedure, risks, and possible complications were explained to the patient in detail, and informed consent was obtained. The patient was placed supine on the angiography table. The right neck and upper chest were prepped and draped in the usual sterile manner. A scientific illustrator radiograph of the chest was obtained, which [...] CLINICAL INFORMATION: History: This is a 64-year-old -[place] female with a history of lymphoma who previously had a chest port placed for chemotherapy administration. She has completed chemotherapy andremains remission and therefore presents for chest port removal Operators: BIJAL Cartagena Anesthesia: 1.Local anesthesia - 10 mL of 1% Lidocaine 2.Intravenous Anxiolysis- Versed 1 mg and Fentanyl 50 mcg Procedure: Removal of a right internal jugular approach 1 lumen 8 Ethiopian chest port under fluoroscopic guidance. Fluoroscopic time: 0.1 minutes Procedure details: The procedure, risks, and possible complications were explained to the patient in detail, and informed consent was obtained. The patient was placed supine on the angiography table. The right neck and upper chestwere prepped and draped in the usual sterile manner. A scientific illustrator radiograph ofthe chest was obtained, which showed [...] [facility]. There were no immediate complicationsassociated with the procedure. Impression: Successful removal of a right internal jugular approachsince lumen 8 Ethiopian chest port under fluoroscopic guidance. Note: Keep the dressing clean and dry for 5 days. IDr. Francisca PA, was present and performed/supervised the entire procedure. > Dictated by Aguila Pritchett (Towel Rolling Machine Operator) 04/26/2024 3:21 PM IValeria MD have personally reviewed and interpreted this examination/study. > Interpreting Provider: Valeria Hernandez MD on 05/07/2024 8:15 AM Shreyas Phillips MD IR ORDERABLES * GLUCOSE - POINT OF CARE (04/26/2024 6:51 AM REFUND CLERK) Glucose WB/POC 92 70 - 99 mg/dL 04/26/2024 6:52 AM [facility] Specimen Type Venous 04/26/2024 6:52 AM [facility] Blood BLOOD SPECIMEN / Unknown 04/26/2024 6:51 AM REFUND CLERK 04/26/2024 6:52 AM REFUND CLERK Shreyas Phillips MD LAB - POINT OF CARE ORDERABLES [facility] [address] [place] [address], [facility] [phone] * PT-INR [facility] (04/26/2024 6:47 AM REFUND CLERK) PT 13.2 12.1 - 14.8 Seconds 04/26/2024 7:20 AM [facility] INR 1.0 See Comment 04/26/2024 7:20 AM [facility] Comment:The suggested therap eutic range for standard coumadin (warfarin) therapy is an INR of 2.0-3.0. For high-risk patients (Mechanical Mitral Valve Prosthesis, etc.), the suggested prophylactic therapeutic range is an INR of 2.5-3.5. Blood BLOOD SPECIMEN / Unknown Venipuncture / Unknown 04/26/2024 6:47 AM REFUND CLERK 04/26/2024 6:51 AM REFUND CLERK Tyson Sandhu MD LAB - COAGULATION OR DERABLES Performing Organization Address City/[facility] Co de Phone Number [facility] [address] [place] [address], [facility] [phone] * (ABNORMAL) CBC W AUTO DIFFERENTIAL (03/16/2024 2:26 PM REFUND CLERK) WBC 5.4 4.0 - 10.7 x10E9/L 03/17/2024 2:57 AM [facility] RBC Count 4.04 3.90 - 5.20 x10E12/L 03/17/2024 2:57 AM [facility] Hemoglobin 11.4(L) 11.9 - 15.8 g/dL 03/17/2024 2:57 AM [facility] Hematocrit 37.2 34.8 - 46.1 % 03/17/2024 2:57 AM [facility] MCV 92.1 80.0 - 98.0 fL 03/17/2024 2:57 AM [facility] MCH 28.2 26.7 - 33.6 pg 03/17/2024 2:57 AM [facility] MCHC 30.6(L) 31.7 - 36.3 g/dL 03/17/2024 2:57 AM [facility] RDW-CV 14.7 11.3 - 14.8 % 03/17/2024 2:57 AM [facility] Platelet Count 184 150 - 420 x10E9/L 03/17/2024 2:57 AM [facility] MPV 9.5 7.8 - 11.4 fL 03/17/2024 2:57 AM [facility] Preliminary Absolute Neutrophil 3.75 1.60 - 7.50 x10E9/L 03/17/2024 2:57 AM [facility] Neutrophil % 69.9 41.0 - 74.0 % 03/17/2024 2:57 AM [facility] Lymphocyte % 18.4 17.0 - 47.0 % 03/17/2024 2:57 AM [facility] Monocyte % 8.9 3.0 - 11.0 % 03/17/2024 2:57 AM [facility] Eosinophil % 2.0 0.0 - 7.0 % 03/17/2024 2:57 AM [facility] Basophil % 0.4 0.0 - 1.6 % 03/17/2024 2:57 AM [facility] Immature Granulocytes % 0.4 0.0 - 1.0 % 03/17/2024 2:57 AM [facility] Neutrophil Absolute 3.75 1.60 - 7.50 x10E9/L 03/17/2024 2:57 AM [facility] Lymphocyte Absolute 0.99(L) 1.00 - 4.40 x10E9/L 03/17/2024 2:57 AM [facility] Monocyte Absolute 0.48 0.15 - 1.00 x10E9/L 03/17/2024 2:57 AM [facility] Eosinophil Absolute 0.11 0.00 - 0.60 x10E9/L 03/17/2024 2:57 AM [facility] Basophil Absolute 0.02 0.00 - 0.13 x10E9/L 03/17/2024 2:57 AM [facility] Blood BLOOD SPECIMEN / Unknown Venipuncture / Unknown 03/16/2024 2:26 PM REFUND CLERK 03/17/2024 2:52 AM [facility] Shreyas Phillips MD LAB - HEMATOLOGY ORD ERABLES [address] [address], [facility] [phone] * (ABNORMAL) COMPREHENSIVE METABOLIC PANEL (03/16/2024 2:26 PM REFUND CLERK) BUN 18 7 - 26 mg/dL 03/17/2024 3:20 AM [facility] Creatinine 0.86 0.56 - 0.96 mg/dL 03/17/2024 3:20 AM [facility] Sodium 141 136 - 145 mmol/L 03/17/2024 3:20 AM [facility] Potassium 3.9 3.5 - 4.5 mmol/L 03/17/2024 3:20 AM [facility] Chloride 108(H) 98 - 107 mmol/L 03/17/2024 3:20 AM [facility] CO2 26 22 - 29 mmol/L 03/17/2024 3:20 AM [facility] Glucose 97 70 - 99 mg/dL 03/17/2024 3:20 AM [facility] Calcium 9.6 8.4 - 10.2 mg/dL 03/17/2024 3:20 AM [facility] Protein Total 6.6 6.0 - 8.3 g/dL 03/17/2024 3:20 AM [facility] Albumin 4.3 3.4 - 5.0 g/dL 03/17/2024 3:20 AM [facility] Bilirubin Total 0.2 0.2 - 1.2 mg/dL 03/17/2024 3:20 AM [facility] Alkaline Phosphatase 57 40 - 150 U/L 03/17/2024 3:20 AM [facility] ALT 33 5 - 55 U/L 03/17/2024 3:20 AM [facility] AST 21 5 - 34 U/L 03/17/2024 3:20 AM [facility] Anion Gap 7 6 - 16 03/17/2024 3:20 AM [facility] BUN/Creatinine Ratio 21 7 - 23 03/17/2024 3:20 AM [facility] Osmolality Calculated 294 275 - 295 mOsm/kg 03/17/2024 3:20 AM [facility] Albumin/Globulin Ratio 1.9 1.1 - 2.3 03/17/2024 3:20 AM [facility] eGFR by CKD-EPI 75(L) >=90 mL/min/1.7 3 m2 03/17/2024 3:20 AM [facility] Blood BLOOD SPECIMEN / Unknown Venipuncture / Unknown 03/16/2024 2:26 PM REFUND CLERK 03/17/2024 2:52 AM REFUND CLERK Shreyas Phillips MD LAB - CHEMISTRY SILVINO LENZ [address] [address], [facility] [phone] * LDH BLOOD (03/16/2024 2:26 PM REFUND CLERK) Pathologist [facility] LDH Total 196 125 - 243 Units/L 03/17/2024 3:20 AM REFUND CLERK [facility] Blood BLOOD SPECIMEN / Unknown Venipuncture / Unknown 03/16/2024 2:26 PM REFUND CLERK 03/17/2024 2:52 AM REFUND CLERK Shreyas Phillips MD LAB - CHEMISTRY SILVINO LENZ Performing Organization Address [facility]/ZIP Co de Phone Number [address] [address], [facility] [phone] * HEMOGLOBIN A1C (02/03/2023 11:03 AM REFUND CLERK) Pathologist [facility] Hemoglobin A1c 5.4 <=5.6 % 02/03/2023 3:39 PM [facility] Estimated Average Glucose 108 mg/dL 02/03/2023 3:39 PM [facility] Comment: HbA1c Interpretation: Normal : < 5.7% Pre-diabetes: 5.7-6.4% Diabetes: Equal to or greater than 6.5% Test results diagnostic of diabetes should be repeated for confirmation. Treatment target values recommended by ADA and other clinical organizations should be used to evaluate metabolic control in patients. Reference: [place] [employer], Standards of Care in Diabetes -2020 In patients 70 years and older consider HbA1c target range of 7.0-7.5% (Reference: Vishal Davis et al. JAMDA. 2012) The Sebia assay for the measurement of HbA1c is a National Glycohemoglobin Standardization Program (NGSP) certified method. Blood BLOOD SPECIMEN / Unknown Lab Venipuncture / Unknown 02/03/2023 11:03 AM REFUND CLERK 02/03/2023 11:29 AM REFUND CLERK Mohini Sky MD LAB - CHEMISTRY [place]ILVINO [place]EN[place] [id number] [place] [address], [facility] [phone] * HEPATITIS C RNA QUANTITATIVE (07/16/2022 12:15 PM CDT) Hepatitis C RNA PCR, Interp Not detected Not detected 07/19/2022 1:08 PM CDT [facility] Blood BLOOD SPECIMEN / Unknown Lab Venipuncture / Unknown 07/16/2022 12:15 PM CDT 07/16/2022 12:25 PM CDT Narrative [facility] - 07/19/2022 1:08 PM CDT The Hepatitis C viral (HCV) RNA analysis utilized a serum sample, real-time reverse aircraft engine mechanic overhaul PCR, and is reported as Not Detected, [...] the isolation of HCV RNA with reverse aircraft engine mechanic overhaul of genomic HCV RNA followed by real-time PCR in the presence of an unrelated RNA internal control. The internal control ensures that RNA is isolated, and that no general significant inhibitors of the RT-PCR process are present. The analysis was performed using a U.S. FDA approved test methodology. Shreyas Phillips MD LAB - CHEMISTRY SILVINO LENZ [facility] [address] [place] [address], [place] [phone] from Last 3 Months or Most Recently [...] 3:45 PM 10/19/2022 5:53 PM Care Teams Mobile Lab Technician Relationship Specialty Start Date End Date Agustin Flor MD [address] [place] [address] PCP - General General Medicine 06/28/22 Shreyas Phillips MD [address] [place] [id number] Physician Hematology and Oncology 03/23/23 Bebe Hernandez, PA-C [facility] [place] [address] Physician Dancing Instructor Physician Dancing Instructor 03/23/23 Nanda Rausch, RN Registered Nurse 03/23/23
--- OUTSIDE RECORDS SUMMARY | 2024-06-05 21:40 | XMS_ITS | Patient Health Summary ---
Author Organization [facility] Address [address] [place] [address] Care Team Providers Care Tool Filer Hand Name Role Phone Agustin Flor MD Primary Care Provider [phone] Shreyas Phillips MD Unavailable Bebe Hernandez PA-C Unavailable [phone] Nanda Rausch RN Unavailable Unavailable Note from [facility],non-owned Affiliates and Associated Physician Practices is amultiple site organization consisting of ambulatory clinics and hospital sitesin [place], [place], [place] and [place]. This disclosure is being madepursuant to the Care Everywhere program and may not contain all information available regarding this patient. Last updated 17.[facility] Allergies * Aspirin(Swelling) * Cefdinir(Itching) * Chlorthalidone(Urticaria) [...] 3 times daily 1 refill by 03/12/2025 Active Problems Problem Noted Date Diagnosed Date [...] 0.25 ML IM(Given 01/25/2020, 01/17/2019) * INFLUENZA [id number], HISTORIC VACCINE(Given 01/21/2022) * INFLUENZA VACCINE(Given 12/26/2016, [...] care, and heating? Not very hard 11/20/2022 [facility] - [...] place to sleep or slept in a senior living (including now)? No 11/20/2022 Sex and Gender Information Value Date Recorded Sex Assigned at Not on file Gender Identity Female 08/19/2023 1:35 PM CDT Sexual Orientation Not on file Last Filed Vital Signs Vital Sign Reading Time Taken Comments Blood Pressure 140/83 04/26/2024 8:50 AM AIR TUCKER Pulse 68 04/26/2024 8:50 AM AIR TUCKER Temperature 36.6 C (97.8 F) 04/26/2024 8:31 AM AIR TUCKER Respiratory Rate 12 04/26/2024 8:50 AM AIR TUCKER Oxygen Saturation 94% 04/26/2024 8:50 AM AIR TUCKER Inhaled Oxygen Concentration - - Weight 62.6 kg (138 lb) 04/26/2024 6:18 AM AIR TUCKER Height 163.8 cm (5' 4.5 ) 04/26/2024 6:18 AM AIR TUCKER Body Mass Index 23.32 04/26/2024 6:18 AM AIR TUCKER Medical Devices Implanted Type Area Clinical Lab Technologist Device Identifier Shelf Expiration Date Model / Serial / Lot Port Implinfn Powerport Clrvu Argd Kika Implanted:Qty: 1 on 07/15/2022 at [facility] Right: Chest [employer] 11/26/2023 [id number] / / [id number] Description:RIJ by Milena Spivey inton Procedures * CT CHEST ABDOMEN PELVIS W CONT(Performed 05/28/2024) Performed for History of non-Hodgkin's lymphoma * CREATININE - POCT INTERFACED(Performed 05/28/2024) * IR CENTRAL LINE REMOVAL(Performed 04/26/2024) Performed [...] and BCL2 and/or BCL6 rearrangements (HCC) * WA FNA BX W US GDN 1ST LES(Performed 02/15/2024) Performed for Thyroid nodule * FINE NEEDLE ASPIRATION (STL)(Performed 02/15/2024) Performed for Thyroid nodule * PATHOLOGY/CYTOLOGY REPORT ORDER(Performed 02/15/2024) * WA FNA BX W US GDN 1ST LES(Performed [...] Performed for History of non-Hodgkin's lymphoma * WA FNA BX W US GDN 1ST LES(Performed [...] 06/08/2022) Performed for Illness, unspecified Results * CT Chest Abdomen Pelvis W Cont (05/28/2024 11:38 AM AIR TUCKER) Only the most recent of2 resultswithin the time period is included. Anatomical Region Laterality Modality Chest, Abdomen, Pelvis Computed Tomography 05/28/2024 1:52 PM AIR TUCKER Impressions 05/28/2024 4:28 PM AIR TUCKER Impression: 1.No evidence of lymphadenopathy in the chest, abdomen, and pelvis. 2.Redemonstrated are multiple hepatic and renal cysts which may be suggestive of polycystic kidney-liver disease. Report was dictated by Jose Lagos MD, (Integrated VIR resident). > Dictated by Jose Lagos MD (Mask Designer) 05/28/2024 1:52 PM I, Nakul Bridges MD have personally reviewed and interpreted this examination/study. > Interpreting Provider: Nakul Bridges MD on 05/28/2024 4:28 PM Narrative 05/28/2024 4:28 PM AIR TUCKER PROCEDURE: CT CHEST ABDOMEN PELVIS W CONT, DATE/TIME OF EXAM: 05/28/2024 11:39 AM, LOCATION [facility] INDICATION: Z85.72: History of non-Hodgkin's lymphoma [...] DATE/TIME OF EXAM: 05/28/2024 11:39 AM, LOCATION [facility] INDICATION: Z85.72: History of non-Hodgkin's lymphoma [...] resident). > Dictated by Jose Lagos MD (Mask Designer) 05/28/2024 1:52 PM INakul MD have personally reviewed and interpreted this examination/study. > Interpreting Provider: Nakul Bridges MD on 05/28/2024 4:28 PM [address]as Phillips MD CT ORDERABLES * CREATININE - POCT INTERFACED (05/28/2024 11:26 AM AIR TUCKER) Only the most recent of2 resultswithin the time period is included. Creatinine POCT 0.72 0.30 - 1.30 mg/dL 05/28/2024 11:30 AM AIR TUCKER [facility] eGFR >90 >=90 mL/min/1.7 3 m2 05/28/2024 11:30 AM AIR TUCKER [facility] Blood BLOOD SPECIMEN / Unknown 05/28/2024 11:26 AM AIR TUCKER 05/28/2024 11:30 AM AIR TUCKER Shreyas Phillips MD LAB - POINT OF CARE ORDERABLES Performing Organization Address City/State/[facility] Co de Phone Number [facility] [address] [place] [address], [facility] [phone] * IR Central Line Removal (04/26/2024 8:32 AM AIR TUCKER) Anatomical Region Laterality Modality X-Ray Angiograph y 04/26/2024 3:21 PM AIR TUCKER Impressions 05/07/2024 8:15 AM AIR TUCKER Impression: Successful removal of a right internal jugular approach since lumen 8 Malaysian chest port under fluoroscopic guidance. Note: Keep the dressing clean and dry for 5 days. I, BIJAL Elizalde, was present and performed/supervised the entire procedure. > Dictated by Aguila Pritchett (Mask Designer) 04/26/2024 3:21 PM IValeria MD have personally reviewed and interpreted this examination/study. > Interpreting Provider: Valeria Hernandez MD on 05/07/2024 8:15 AM Narrative 05/07/2024 8:15 AM AIR TUCKER PROCEDURE: IR CENTRAL LINE REMOVAL DATE/TIME OF EXAM: 04/26/2024 8:33 AM CLINICAL INFORMATION: History: This is a 64-year-old -Y[place]i female with a history of lymphoma who previously had a chest port placed for chemotherapy administration. She has completed chemotherapy and remains remission and therefore presents for chest port removal Operators: BIJAL Cartagena Anesthesia: 1.Local anesthesia - 10 mL of 1% Lidocaine 2.Intravenous Anxiolysis- Versed 1 mg and Fentanyl 50 mcg Procedure: Removal of a right internal jugular approach 1 lumen 8 Malaysian chest port under fluoroscopic guidance. Fluoroscopic time: 0.1 minutes Procedure details: The procedure, risks, and possible complications were explained to the patient in detail, and informed consent was obtained. The patient was placed supine on the angiography table. The right neck and upper chest were prepped and draped in the usual sterile manner. A metal fitters and machinists radiograph of the chest was obtained, which [...] CLINICAL INFORMATION: History: This is a 64-year-old -Y[place]i female with a history of lymphoma who previously had a chest port placed for chemotherapy administration. She has completed chemotherapy andremains remission and therefore presents for chest port removal Operators: BIJAL Cartagena Anesthesia: 1.Local anesthesia - 10 mL of 1% Lidocaine 2.Intravenous Anxiolysis- Versed 1 mg and Fentanyl 50 mcg Procedure: Removal of a right internal jugular approach 1 lumen 8 Malaysian chest port under fluoroscopic guidance. Fluoroscopic time: 0.1 minutes Procedure details: The procedure, risks, and possible complications were explained to the patient in detail, and informed consent was obtained. The patient was placed supine on the angiography table. The right neck and upper chestwere prepped and draped in the usual sterile manner. A metal fitters and machinists radiograph ofthe chest was obtained, which showed [...] the procedure well [facility]. There were no immediate complicationsassociated with the procedure. Impression: Successful removal of a right internal jugular approachsince lumen 8 Malaysian chest port under fluoroscopic guidance. Note: Keep the dressing clean and dry for 5 days. I, BIJAL Elizalde, was present and performed/supervised the entire procedure. > Dictated by Aguila Pritchett (Mask Designer) 04/26/2024 3:21 PM IValeria MD have personally reviewed and interpreted this examination/study. > Interpreting Provider: Valeria Hernandez MD on 05/07/2024 8:15 AM Shreyas Phillips MD IR ORDERABLES * GLUCOSE - POINT OF CARE (04/26/2024 6:51 AM AIR TUCKER) Only the most recent of170 resultswithin the time period is included. Glucose WB/POC 92 70 - 99 mg/dL 04/26/2024 6:52 AM AIR TUCKER [facility] Specimen Type Venous 04/26/2024 6:52 AM AIR TUCKER [facility] Blood BLOOD SPECIMEN / Unknown 04/26/2024 6:51 AM AIR TUCKER 04/26/2024 6:52 AM AIR TUCKER Shreyas Phillips MD LAB - POINT OF CARE ORDERABLES Performing Organization Address [facility] Co de Phone Number [address] [address], [facility] [phone] * PT-INR [facility] (04/26/2024 6:47 AM AIR TUCKER) Only the most recent of3 resultswithin the time period is included. PT 13.2 12.1 - 14.8 Seconds 04/26/2024 7:20 AM [facility] INR 1.0 See Comment 04/26/2024 7:20 AM [facility] Comment:The suggested therap eutic range for standard coumadin (warfarin) therapy is an INR of 2.0-3.0. For high-risk patients (Mechanical Mitral Valve Prosthesis, etc.), the suggested prophylactic therapeutic range is an INR of 2.5-3.5. Blood BLOOD SPECIMEN / Unknown Venipuncture / Unknown 04/26/2024 6:47 AM AIR TUCKER 04/26/2024 6:51 AM AIR TUCKER Tyson Sandhu MD LAB - COAGULATION OR DERABLES Performing Organization Address [facility] Co de Phone Number [address] [address], [facility] [phone] * (ABNORMAL) CBC W AUTO DIFFERENTIAL (03/16/2024 2:26 PM AIR TUCKER) Only the most recent of71 resultswithin the time period is included. WBC 5.4 4.0 - 10.7 x10E9/L 03/17/2024 2:57 AM [facility] RBC Count 4.04 3.90 - 5.20 x10E12/L 03/17/2024 2:57 AM [facility] Hemoglobin 11.4(L) 11.9 - 15.8 g/dL 03/17/2024 2:57 AM [facility] Hematocrit 37.2 34.8 - 46.1 % 03/17/2024 2:57 AM [facility] MCV 92.1 80.0 - 98.0 fL 03/17/2024 2:57 AM [facility] MCH 28.2 26.7 - 33.6 pg 03/17/2024 2:57 AM [facility] MCHC 30.6(L) 31.7 - 36.3 g/dL 03/17/2024 2:57 AM [facility] RDW-CV 14.7 11.3 - 14.8 % 03/17/2024 2:57 AM [facility] Platelet Count 184 150 - 420 x10E9/L 03/17/2024 2:57 AM [facility] MPV 9.5 7.8 - 11.4 fL 03/17/2024 2:57 AM [facility] Preliminary Absolute Neutrophil 3.75 1.60 - 7.50 x10E9/L 03/17/2024 2:57 AM [facility] Neutrophil % 69.9 41.0 - 74.0 % 03/17/2024 2:57 AM [facility] Lymphocyte % 18.4 17.0 - 47.0 % 03/17/2024 2:57 AM [facility] Monocyte % 8.9 3.0 - 11.0 % 03/17/2024 2:57 AM [facility] Eosinophil % 2.0 0.0 - 7.0 % 03/17/2024 2:57 AM [facility] Basophil % 0.4 0.0 - 1.6 % 03/17/2024 2:57 AM [facility] Immature Granulocytes % 0.4 0.0 - 1.0 % 03/17/2024 2:57 AM [facility] Neutrophil Absolute 3.75 1.60 - 7.50 x10E9/L 03/17/2024 2:57 AM [facility] Lymphocyte Absolute 0.99(L) 1.00 - 4.40 x10E9/L 03/17/2024 2:57 AM [facility] Monocyte Absolute 0.48 0.15 - 1.00 x10E9/L 03/17/2024 2:57 AM [facility] Eosinophil Absolute 0.11 0.00 - 0.60 x10E9/L 03/17/2024 2:57 AM [facility] Basophil Absolute 0.02 0.00 - 0.13 x10E9/L 03/17/2024 2:57 AM [facility] Blood BLOOD SPECIMEN / Unknown Venipuncture / Unknown 03/16/2024 2:26 PM AIR TUCKER 03/17/2024 2:52 AM AIR TUCKER Shreyas Phillips MD LAB - HEMATOLOGY ORD ERABLES [facility] [address] [place] [address], [facility] [phone] * (ABNORMAL) COMPREHENSIVE METABOLIC PANEL (03/16/2024 2:26 PM AIR TUCKER) Only the most recent of72 resultswithin the time period is included. BUN 18 7 - 26 mg/dL 03/17/2024 3:20 AM [facility] Creatinine 0.86 0.56 - 0.96 mg/dL 03/17/2024 3:20 AM [facility] Sodium 141 136 - 145 mmol/L 03/17/2024 3:20 AM [facility] Potassium 3.9 3.5 - 4.5 mmol/L 03/17/2024 3:20 AM [facility] Chloride 108(H) 98 - 107 mmol/L 03/17/2024 3:20 AM [facility] CO2 26 22 - 29 mmol/L 03/17/2024 3:20 AM [facility] Glucose 97 70 - 99 mg/dL 03/17/2024 3:20 AM [facility] Calcium 9.6 8.4 - 10.2 mg/dL 03/17/2024 3:20 AM [facility] Protein Total 6.6 6.0 - 8.3 g/dL 03/17/2024 3:20 AM [facility] Albumin 4.3 3.4 - 5.0 g/dL 03/17/2024 3:20 AM [facility] Bilirubin Total 0.2 0.2 - 1.2 mg/dL 03/17/2024 3:20 AM [facility] Alkaline Phosphatase 57 40 - 150 U/L 03/17/2024 3:20 AM [facility] ALT 33 5 - 55 U/L 03/17/2024 3:20 AM [facility] AST 21 5 - 34 U/L 03/17/2024 3:20 AM [facility] Anion Gap 7 6 - 16 03/17/2024 3:20 AM [facility] BUN/Creatinine Ratio 21 7 - 23 03/17/2024 3:20 AM [facility] Osmolality Calculated 294 275 - 295 mOsm/kg 03/17/2024 3:20 AM [facility] Albumin/Globulin Ratio 1.9 1.1 - 2.3 03/17/2024 3:20 AM [facility] eGFR by CKD-EPI 75(L) >=90 mL/min/1.7 3 m2 03/17/2024 3:20 AM [facility] Blood BLOOD SPECIMEN / Unknown Venipuncture / Unknown 03/16/2024 2:26 PM AIR TUCKER 03/17/2024 2:52 AM AIR TUCKER Shryeas Phillips MD LAB - CHEMISTRY SIL[place]INO LENZ [address] [address], [place] [phone] * LDH BLOOD (03/16/2024 2:26 PM AIR TUCKER) Only the most recent of56 resultswithin the time period is included. LDH Total 196 125 - 243 Units/L 03/17/2024 3:20 AM [facility] Blood BLOOD SPECIMEN / Unknown Venipuncture / Unknown 03/16/2024 2:26 PM AIR TUCKER 03/17/2024 2:52 AM AIR TUCKER Shreyas Phillips MD LAB - CHEMISTRY [place] LEN[place] [address] [address], [place] [phone] * WA FNA BX W US GDN 1ST LES (02/15/2024 11:08 AM AIR TUCKER) Narrative Sorin Bowden APRN-CNP - 02/15/2024 11:08 AM AIR TUCKER Sorin Bowden APRN-CNP 02/15/2024 11:10 AM Procedure [...] FINE NEEDLE ASPIRATION (STL) (02/15/2024 10:48 AM AIR TUCKER) Only the most recent of3 resultswithin the time period is included. Case Report Medical Cytology Report Case: [id number] Authorizing Provider: Sorin Bowden, Collected: 02/15/2024 10:48 AM [facility]: [facility] - Received: 02/16/2024 07:20 AM ENT Pathologist: Gerald Carlson MD Specimen: Neck Mass, Right TR4 thyroid nodule 03/05/2024 11:13 AM [facility] Specimen Adequacy Adequate cellularity for evaluation. 03/05/2024 11:13 AM [facility] Final Diagnosis Thyroid, right nodule, US-FNA: - Atypia of undetermined significance (TBSRTC category III), nuclear atypia and rare spindle cells 03/05/2024 11:13 AM [facility] Clinical History The patient is a 63 year old female with a TR4 thyroid nodule, s/p two prior FNAs (categories I and III). 03/05/2024 11:13 AM [facility] Gross Description 1 pap stained Thin Prep from 20cc of clear collection fluid 03/05/2024 11:13 AM [facility] Microscopic Description The aspirate shows a good amount of background colloid, as well as scattered macrofollicular bland epithelium. However there are also some small clusters of spindle cells. Comment: Molecular studies, and possibly a serum calcitonin is advised. 03/05/2024 11:13 AM [facility] Addendum 1 Specimen source is Right TR4 thyroid nodule. Neck Mass was entered originally as primary source, but is too general a description. 03/05/2024 11:13 AM [facility] Addendum electronically signed by Tra Cordero on 03/05/2024 at 11:13 AM Pathologist Location at [facility] 03/05/2024 11:13 AM [facility] Disclaimer The performance characteristics of all immunohistochemical and indirect immunofluorescence stains (if any) cited in this report were determined by the Histopathology Laboratory of [facility]. Some of these tests rely on the use of analyte-specific reagents and are subject to specific labeling requirements by the [place] Food and Drug Administration. Such tests were developed by the Histology Laboratory of [facility] and have not been cleared or approved [...] the attending (teaching) pathologist. 03/05/2024 11:13 AM [facility] Embedded Images 03/05/2024 11:13 AM [facility] Pathology/Cytolo gy MASS OF NECK / Unknown Collection / Unknown 02/15/2024 10:48 AM AIR TUCKER 02/16/2024 7:20 AM AIR TUCKER Sorin Bowden DENIER CONTROL OPERATOR-OIL AND GAS PRINCIPAL LAB - PATH OLOGY/CYTOLOGY ORDERABLES [facility] [address] [place] [address], [facility] [phone] * PATHOLOGY/CYTOLOGY REPORT ORDER (02/15/2024) 02/15/2024 Narrative 02/15/2024 Ordered by an unspecified provider. Scanned Document LAB - PATHOLOGY/CYTO LOGY ORDERABLES * WA FNA BX W US GDN 1ST LES [...] the site. Start: 1300 End: 1317 Sorin PALMA PROCEDURE/ MINOR SURGICAL ORDERABLES * (ABNORMAL) PHOSPHORUS BLOOD (12/21/2023 3:00 PM CDT) Only the most recent of63 resultswithin the time period is included. Phosphorus 2.8(L) 2.9 - 5.1 mg/dL 12/21/2023 3:42 PM CDT [facility] Blood BLOOD SPECIMEN / Unknown Port / Unknown 12/21/2023 3:00 PM CDT 12/21/2023 3:10 PM CDT Shreyas Phillips MD LAB - CHEMISTRY S[place]INO LENZ [facility] Organization Address [facility] Co de Phone Number [address] [address], [facility] [phone] * MAGNESIUM BLOOD (12/21/2023 3:00 PM CDT) Only the most recent of77 resultswithin the time period is included. Magnesium 2.1 1.6 - 2.6 mg/dL 12/21/2023 3:42 PM CDT [facility] Blood BLOOD SPECIMEN / Unknown Port / Unknown 12/21/2023 3:00 PM CDT 12/21/2023 3:10 PM CDT Shreyas Phillips MD LAB - CHEMISTRY SILVINO LENZ Performing Organization Address City/[facility]/ZIP Co de Phone Number [address] [address], [place] [phone] * TSH (12/21/2023 3:00 PM CDT) TSH 0.685 0.350 - 4.940 uIU/mL 12/21/2023 4:00 PM CDT [facility] Blood BLOOD SPECIMEN / Unknown Port / Unknown 12/21/2023 3:00 PM CDT 12/21/2023 3:10 PM CDT Shreyas Phillips MD LAB - CHEMISTRY S[place]INO LENZ Performing Organization Address [facility] Co de Phone Number [address] [address], [place] [phone] * T4 FREE (12/21/2023 3:00 PM CDT) Only the most recent of3 resultswithin the time period is included. T4 Free 1.0 0.7 - 1.5 ng/dL 12/21/2023 4:00 PM CDT [facility] Blood BLOOD SPECIMEN / Unknown Port / Unknown 12/21/2023 3:00 PM CDT 12/21/2023 3:10 PM CDT Shreyas Phillips MD LAB - CHEMISTRY SILVINO LENZ Performing Organization Address City/[facility]/ZIP Co de Phone Number [address] [address], [place] [phone] * WA FNA BX W US GDN 1ST LES [...] the site. Start: 1006 End: 1036 Sorin Bowden DENIER CONTROL OPERATOR-OIL AND GAS PRINCIPAL PROCEDURE/ MINOR SURGICAL ORDERABLES * US Thyroid [...] evaluation. > Dictated by Chaparro Kim MD, (advertising vice president). I, Peter Avalos MD have personally reviewed and interpreted this examination/study. > Interpreting Provider: Peter Avalos MD on 12/06/2023 11:51 AM Narrative 12/06/2023 11:51 AM CDT PROCEDURE: US THYROID, DATE/TIME OF EXAM: 12/06/2023 10:25 AM, LOCATION [facility] INDICATION: E04.1: Thyroid nodule ADDITIONAL CLINICAL [...] DATE/TIME OF EXAM: 12/06/2023 10:25 AM, LOCATION [facility] INDICATION: E04.1: Thyroid nodule ADDITIONAL CLINICAL [...] > Dictated by Chaparro Kim MD, MD (advertising vice president). IPeter MD have personally reviewed and interpreted this examination/study. > Interpreting Provider: Peter Avalos MD on 1:51 AM Shreyas Phillips MD US ORDERABLES * XR ANKLE LEFT 3VW OR MORE [...] fracture. > Dictated by Ezra Angeles DO (advertising vice president). I, Az Montoya MD have personally reviewed and interpreted this examination/study. > Interpreting Provider: Az Montoya MD on 10/13/2023 7:13 PM Narrative 10/13/2023 7:13 PM CDT PROCEDURE: XR ANKLE LEFT 3VW OR MORE, DATE/TIME OF EXAM: 10/13/2023 2:03 PM, LOCATION [facility] INDICATION: M79.671: Bilateral foot pain M79.672: [...] MORE, DATE/TIME OF EXAM: 42:03 PM, LOCATION [facility] INDICATION: M79.671: Bilateral foot pain M79.672: [...] fracture. > Dictated by Ezra Angeles DO (advertising vice president). I, Az Montoya MD have personally reviewed [...] Az Montoya MD on 10/17/2023 7:37 AM oMhini Sky MD DIAGNOSTIC IMAGING O RDERABLES * [...] ORDERABLES * LIPID PROFILE (06/03/2023 1:20 PM AIR TUCKER) Cholesterol Total 135 <200 mg/dL 06/03/2023 2:03 PM [facility] HDL 49 >40 mg/dL 06/03/2023 2:03 PM [facility] Comment: ATP III Classification of HDL Cholesterol: <40 mg/dL: Considered a major risk factor. >60 mg/dL: Considered a negative risk factor. LDL Calculated 60 <100 mg/dL 06/03/2023 2:03 PM [facility] Comment: ATP III Classification of LDL Cholesterol: <100 mg/dL: Optimal 100 - 129 mg/dL: Near Optimal/Above Optimal 130 - 159 mg/dL: Borderline High 160 - 189 mg/dL: High >190 mg/dL: Very High Triglycerides 131 <150 mg/dL 06/03/2023 2:03 PM AIR TUCKER [facility] Comment: ATP III Classification of Triglycerides: <150 mg/dL: Normal 150 - 199 mg/dL: Borderline High 200 - 400 mg/dL: High >500 mg/dL: Very High Blood BLOOD SPECIMEN / Unknown Venipuncture / Unknown 06/03/2023 1:20 PM AIR TUCKER 06/03/2023 1:36 PM AIR TUCKER Bebe Hernandez PA-C LAB - CHEMISTRY ORDE DELFIN Performing Organization Address City/[facility]/ZIP Co de Phone Number [address] [address], [facility] [phone] * URIC ACID BLOOD (06/03/2023 1:19 PM AIR TUCKER) Only the most recent of51 resultswithin the time period is included. Uric Acid 3.1 2.6 - 6.0 mg/dL 06/03/2023 2:03 PM AIR TUCKER [facility] Blood BLOOD SPECIMEN / Unknown Venipuncture / Unknown 06/03/2023 1:19 PM AIR TUCKER 06/03/2023 1:36 PM AIR TUCKER Shreyas Phillips MD LAB - CHEMISTRY ORDE DELFIN Performing Organization Address City/[facility]/ZIP Co de Phone Number [address] [address], [place] [phone] * PET CT WHOLE BODY (05/27/2023 10:07 AM AIR TUCKER) Only the most recent of4 resultswithin the time period is included. Anatomical Region Laterality Modality Positron Emissio n Tomography (PET) 05/27/2023 8:58 AM AIR TUCKER Impressions 05/27/2023 2:44 PM AIR TUCKER IMPRESSION: 1. Interval development of a 1.7 [...] Score 1. > Dictated by Mikhail Frazier (Mask Designer) 05/27/2023 8:58 AM IMagalie DO have personally reviewed and interpreted this examination/study. > Interpreting Provider: Magalie Farmer DO on 05/27/2023 2:44 PM Narrative 05/27/2023 2:44 PM AIR TUCKER PROCEDURE: PET CT WHOLE BODY DATE/TIME OF [...] Score 1. > Dictated by Mikhail Frazier (Mask Designer) 05/27/2023 8:58 AM I, Magalie Farmer DO have personally reviewed and interpreted this examination/study. > Interpreting Provider: Magalie Farmer DO on 05/27/2023 2:44 PM Bebe Hernandez PA-C [place] ORDERABLES * GLUCOSE SCREEN - POCT (IP) [facility] (05/27/2023 8:35 AM AIR TUCKER) Only the most recent of4 resultswithin the time period is included. Glucose WB/POC 103 70 - 115 mg/dL [facility] POCT TESTING Blood BLOOD SPECIMEN / Unknown 05/27/2023 8:35 AM AIR TUCKER Bebe Hernandez PA-C LAB - POINT OF CARE ORDERABLES [facility] PO[facility] [address], [place] [address], [facility] [phone] * HEMOGLOBIN A1C (02/03/2023 11:03 AM AIR TUCKER) Only the most recent of3 resultswithin the time period is included. Hemoglobin A1c 5.4 <=5.6 % 02/03/2023 3:39 PM AIR TUCKER [facility] Estimated Average Glucose 108 mg/dL 02/03/2023 3:39 PM [facility] Comment: HbA1c Interpretation: Normal : < 5.7% Pre-diabetes: 5.7-6.4% Diabetes: Equal to or greater than 6.5% Test results diagnostic of diabetes should be repeated for confirmation. Treatment target values recommended by ADA and other clinical organizations should be used to evaluate metabolic control in patients. Reference: [place] [employer], Standards of Care in Diabetes -2020 In patients 70 years and older consider HbA1c target range of 7.0-7.5% (Reference: Vishal Davis et al. JAMDA. 2012) The Sebia assay for the measurement of HbA1c is a National Glycohemoglobin Standardization Program (NGSP) certified method. Blood BLOOD SPECIMEN / Unknown Lab Venipuncture / Unknown 02/03/2023 11:03 AM AIR TUCKER 02/03/2023 11:29 AM AIR TUCKER oMhini Sky MD LAB - CHEMISTRY ORDE DELFIN Performing Organization Address City/[facility]/ZIP Co de Phone Number [facility] [address] [place] [address], [facility] [phone] * TYPE + SCREEN PANEL (02/03/2023 10:58 AM AIR TUCKER) Only the most recent of23 resultswithin the time period is included. Antibody Screen NEG 11:55 AM AIR TUCKER [facility] ABO Rh A POS 02/03/2023 11:55 AM AIR TUCKER [facility] Blood Bank BLOOD SPECIMEN / Unknown 02/03/2023 10:58 AM AIR TUCKER 02/03/2023 11:01 AM AIR TUCKER Shreyas Phillips MD LAB - BLOOD BANK ORD JOELLE Performing Organization Address [facility]/ZIP Co de Phone Number [facility] [address] [place] [address], [facility] [phone] * XR ANKLE RIGHT 3VW OR MORE (02/03/2023 9:09 AM AIR TUCKER) Anatomical Region Laterality Modality Lower Extremity Radiographic Tamie ging 02/03/2023 9:48 AM AIR TUCKER Impressions 02/03/2023 9:54 AM AIR TUCKER IMPRESSION: Bilateral osteopenia identified. No focal bony lesions or erosions are seen. No significant soft tissue swelling. > Interpreting Provider: Peter Avalos MD on 02/03/2023 9:54 AM Narrative 02/03/2023 9:54 AM AIR TUCKER PROCEDURE: XR ANKLE RIGHT 3VW OR MORE, XR ANKLE LEFT 3VW OR MORE, XR FOOT LEFT WT BEARING 3VW, XR FOOT RIGHT WT BEARING 3VW, DATE/TIME OF EXAM: 02/03/2023 9:09 AM, LOCATION [facility] INDICATION: M79.671: Bilateral foot pain M79.672: [...] DATE/TIME OF EXAM: 02/03/2023 9:09 AM, LOCATION [facility] INDICATION: M79.671: Bilateral foot pain M79.672: [...] LEFT WT BEARING 3VW (02/03/2023 9:08 AM AIR TUCKER) Anatomical Region Laterality Modality Ankle / Foot Radiographic Tamie ging 02/03/2023 9:48 AM AIR TUCKER Impressions 02/03/2023 9:54 AM AIR TUCKER IMPRESSION: Bilateral osteopenia identified. No focal bony lesions or erosions are seen. No significant soft tissue swelling. > Interpreting Provider: Peter Avalos MD on 02/03/2023 9:54 AM Narrative 02/03/2023 9:54 AM AIR TUCKER PROCEDURE: XR ANKLE RIGHT 3VW OR MORE, XR ANKLE LEFT 3VW OR MORE, XR FOOT LEFT WT BEARING 3VW, XR FOOT RIGHT WT BEARING 3VW, DATE/TIME OF EXAM: 02/03/2023 9:09 AM, LOCATION [facility] INDICATION: M79.671: Bilateral foot pain M79.672: [...] DATE/TIME OF EXAM: 02/03/2023 9:09 AM, LOCATION [facility] INDICATION: M79.671: Bilateral foot pain M79.672: [...] RIGHT WT BEARING 3VW (02/03/2023 9:08 AM AIR TUCKER) Anatomical Region Laterality Modality Ankle / Foot Radiographic Tamie ging 02/03/2023 9:48 AM AIR TUCKER Impressions 02/03/2023 9:54 AM AIR TUCKER IMPRESSION: Bilateral osteopenia identified. No focal bony lesions or erosions are seen. No significant soft tissue swelling. > Interpreting Provider: Peter Avalos MD on 02/03/2023 9:54 AM Narrative 02/03/2023 9:54 AM AIR TUCKER PROCEDURE: XR ANKLE RIGHT 3VW OR MORE, XR ANKLE LEFT 3VW OR MORE, XR FOOT LEFT WT BEARING 3VW, XR FOOT RIGHT WT BEARING 3VW, DATE/TIME OF EXAM: 02/03/2023 9:09 AM, LOCATION [facility] INDICATION: M79.671: Bilateral foot pain M79.672: [...] DATE/TIME OF EXAM: 02/03/2023 9:09 AM, LOCATION [facility] INDICATION: M79.671: Bilateral foot pain M79.672: [...] NRBC) 1.3 10 3/uL 12/31/2022 3:18 PM [facility] Total Cell Count 50 12/31/2022 3:18 PM [facility] Neutrophils Absolute Manual 0.36(L) 1.60 - 7.00 10 3/uL 12/31/2022 3:18 PM [facility] Comment:(BANDS+SEGS) x WBC = NEUT # (ANC) Lymphocyte Absolute Manual 0.81(L) 1.10 - 3.90 10 3/uL 12/31/2022 3:18 PM [facility] Monocytes Absolute Manual 0.10(L) 0.26 - 1.07 10 3/uL 12/31/2022 3:18 PM [facility] Eosinophils Absolute Manual 0.03 0.00 - 0.47 10 3/uL 12/31/2022 3:18 PM [facility] Neutrophil % Manual 28(L) 35 - 70 % 12/31/2022 3:18 PM [facility] Lymphocyte % Manual 62(H) 20 - 43 % 12/31/2022 3:18 PM [facility] Monocytes % Manual 8 5 - 13 % 12/31/2022 3:18 PM [facility] Eosinophils % Manual 2 0 - 6 % 12/31/2022 3:18 PM [facility] Platelet Estimate Slightly Decreased(A) Adequate 12/31/2022 3:18 PM [facility] Ovalocytes 1+(A) None 12/31/2022 3:18 PM [facility] Tear Drop Cells 1+(A) None 3:18 PM [facility] Blood BLOOD SPECIMEN / Unknown Venipuncture / Unknown 12/31/2022 2:07 PM CDT 12/31/2022 2:22 PM CDT Shreyas Phillips MD LAB - HEMATOLOGY ORD ERABLES Performing Organization Address City/[facility]/ZIP Co de Phone Number [facility] [address] [place] [address], [facility] [phone] * CARDIAC EKG ORDER (12/29/2022 1:35 PM CDT) Only the most recent of4 resultswithin the time period is included. Narrative 12/29/2022 1:35 PM CDT Ordered by an unspecified provider. Scanned Document CARDIAC SERVICES ORD ERABLES * EKG 12-LEAD (12/28/2022 11:19 AM CDT) Only the most recent of4 resultswithin the time period is included. Ventricular Rate 70 BPM [facility] MUSE Atrial Rate 70 BPM [facility] MUSE P-R Interval 168 ms [facility] MUSE QRS Duration ms 92 ms [facility] MUSE Q-T Interval ms 484 ms [facility] MUSE QTC Calculation (Bezet) 522 ms [facility] MUSE Calculated P [place] 67 degrees [facility] MUSE Calculated R [place] -27 degrees [facility] MUSE Calculated T [place] 50 degrees [facility] MUSE Interpretation EKG NORMAL SINUS RHYTHM PROLONGED QT ABNORMAL ECG WHEN COMPARED WITH ECG OF 17-DEC-2022 12:42, CRITERIA FOR INFERIOR INFARCT ARE NO LONGER PRESENT Confirmed by WALESKA HILL, TAYLOR ([id number]) on 12/30/2022 7:48:05 PM [facility] MUSE 12/28/2022 11:1 9 AM CDT 12/30/2022 7:48 PM CDT Terry Centeno MD ECG ORDERABLES Performing Organization Address City/[facility]/ZIP Co de Phone Number [facility] MUSE * TROPONIN-I HIGH SENSITIVE REFLEX 1HOUR (12/28/2022 11:14 AM CDT) Only the most recent of3 resultswithin the time period is included. Troponin I High Sensitive 9 <=14 ng/L 12/28/2022 12:33 PM [facility] Delta Troponin I HS 12/28/2022 12:33 PM [facility] Comment:Delta value intentio pascual not calculated. Baseline to 1 hour specimen collection interval exceeded. Blood BLOOD SPECIMEN / Unknown Venipuncture / Unknown 12/28/2022 11:14 AM CDT 12/28/2022 11:57 AM CDT Terry Centeno MD LAB - CHEMISTRY SILVINO LENZ [address] [address], [facility] [phone] * (ABNORMAL) URINALYSIS REFLEX TO MICROSCOPIC NO CULTURE (12/28/2022 11:14 AM CDT) Only the most recent of5 resultswithin the time period is included. [facility] Color UA Colorless(A ) Straw, Yellow 12/28/2022 12:01 PM [facility] Clarity UA Clear Clear 12/28/2022 12:01 PM [facility] Specific [place] UA 1.003(L) 1.005 - 1.030 12/28/2022 12:01 PM [facility] pH UA 7.0 5.0 - 8.0 pH 12/28/2022 12:01 PM [facility] Protein UA Negative Negative 12/28/2022 12:01 PM [facility] Glucose UA Negative Negative 12/28/2022 12:01 PM [facility] Ketone UA Negative Negative 12/28/2022 12:01 PM [facility] Bilirubin UA Negative Negative 12/28/2022 12:01 PM [facility] Blood UA Negative Negative 12/28/2022 12:01 PM [facility] Nitrite UA Negative Negative 12/28/2022 12:01 PM [facility] Leukocyte Esterase Negative Negative 12/28/2022 12:01 PM [facility] Urobilinogen UA Negative Negative mg/dL 12/28/2022 12:01 PM [facility] RBC UA 0-2 None Seen, 0-2, 3-5 /HPF 12/28/2022 12:01 PM CDT [facility] WBC UA 0-5 None Seen, 0-5 /HPF 12/28/2022 12:01 PM CDT [facility] Squamous Epithelial Cells UA 0-2 None Seen, 0-2, 3-5 /HPF 12/28/2022 12:01 PM CDT [facility] Urine URINE SPECIMEN OBTAINED BY CLEAN CATCH PROCEDURE / Unknown Collection / Unknown 12/28/2022 11:14 AM CDT 12/28/2022 11:51 AM CDT Narrative [facility] - 12/28/2022 12:01 PM CDT Terry Centeno MD LAB - URINALYSIS ORD ERABLES Performing Organization Address City/[facility]/ZIP Co de Phone Number [address] [address], [place] [phone] * LACTIC ACID BLOOD REFLEX TO REPEAT (12/28/2022 8:32 AM CDT) Only the most recent of2 resultswithin the time period is included. Lactic Acid-Stat 1.5 <=2.0 mmol/L 12/28/2022 9:07 AM CDT [facility] Blood BLOOD SPECIMEN / Unknown Venipuncture / Unknown 12/28/2022 8:32 AM CDT 12/28/2022 8:43 AM CDT Terry Centeno MD LAB - CHEMISTRY ORDE RABDIVYA [facility] [address] [place] [address], [place] [phone] * TROPONIN-I HIGH SENSITIVE BASELINE + 1HR (12/28/2022 8:32 AM CDT) Only the most recent of3 resultswithin the time period is included. Troponin I High Sensitive 11 <=14 ng/L 12/28/2022 9:10 AM CDT [facility] Blood BLOOD SPECIMEN / Unknown Venipuncture / Unknown 12/28/2022 8:32 AM CDT 12/28/2022 8:51 AM CDT Terry Centeno MD LAB - CHEMISTRY SIL[place]INO LENZ Performing Organization Address City/[facility]/ZIP Co de Phone Number [facility] [address] [place] [address], [facility] [phone] * (ABNORMAL) TSH REFLEX FREE T4 (12/28/2022 8:32 AM CDT) Only the most recent of2 resultswithin the time period is included. TSH 0.142(L) 0.350 - 4.940 uIU/mL 12/28/2022 9:24 AM CDT [facility] Blood BLOOD SPECIMEN / Unknown Venipuncture / Unknown 12/28/2022 8:32 AM CDT 12/28/2022 8:50 AM CDT Terry Centeno MD LAB - CHEMISTRY SILVINO LENZ Performing Organization Address [facility]/ZIP Co de Phone Number [facility] [address] [place] [address], [facility] [phone] * B-TYPE NATRIURETIC PEPTIDE (12/28/2022 8:32 AM CDT) BNP 29 <100 pg/mL 12/28/2022 9:18 AM CDT [facility] Comment: A decision threshold of 100 pg/mL [...] Centeno MD LAB - CHEMISTRY SILVINO LENZ [facility] [address] [place] [address], [facility] [phone] * (ABNORMAL) URINALYSIS REFLEX MICROSCOPIC REFLEX CULTURE (12/17/2022 6:33 PM CDT) Only the most recent of2 resultswithin the time period is included. Color UA Straw Straw, Yellow 12/17/2022 6:44 PM CDT [facility] Clarity UA Clear Clear 12/17/2022 6:44 PM CDT [facility] Specific [place] UA 1.003(L) 1.005 - 1.030 12/17/2022 6:44 PM CDT [facility] pH UA 6.0 5.0 - 8.0 pH 12/17/2022 6:44 PM CDT [facility] Protein UA Negative Negative 12/17/2022 6:44 PM CDT [facility] Glucose UA Negative Negative 12/17/2022 6:44 PM CDT [facility] Ketone UA Negative Negative 12/17/2022 6:44 PM CDT [facility] Bilirubin UA Negative Negative 12/17/2022 6:44 PM CDT [facility] Blood UA Negative Negative 12/17/2022 6:44 PM CDT [facility] Nitrite UA Negative Negative 12/17/2022 6:44 PM CDT [facility] Leukocyte Esterase Negative Negative 12/17/2022 6:44 PM CDT [facility] Urobilinogen UA Negative Negative mg/dL 12/17/2022 6:44 PM CDT [facility] Comment UA Microscopic not indicated. 12/17/2022 6:44 PM CDT [facility] Urine URINE SPECIMEN OBTAINED BY CLEAN CATCH PROCEDURE / Unknown Collection / Unknown 12/17/2022 6:33 PM CDT 12/17/2022 6:37 PM CDT Narrative [facility] - 12/17/2022 6:44 PM CDT Terry Centeno MD LAB - URINALYSIS ORD ERABLES [facility] [place] [address], [facility] [phone] * CT HEAD WO CONTRAST (12/17/2022 2:04 [...] is dictated by Darlyn Cabrera Dr, MD (advertising vice president) IJuaquin MD have personally reviewed and interpreted this examination/study. > Interpreting Provider: Juaquin Mcleod MD on 12/17/2022 2:42 PM Narrative 12/17/2022 2:42 PM CDT PROCEDURE: CT HEAD WO CONTRAST, DATE/TIME OF EXAM: 12/17/2022 2:05 PM, LOCATION [facility] INDICATION: R53.83: Fatigue, unspecified type ADDITIONAL [...] DATE/TIME OF EXAM: 12/17/2022 2:05 PM, LOCATION [facility] INDICATION: R53.83: Fatigue, unspecified type ADDITIONAL [...] is dictated by Darlyn Cabrera Dr, MD (advertising vice president) I, Juaquin Mcleod MD have personally reviewed [...] DATE/TIME OF EXAM: 12/17/2022 1:05 PM, LOCATION [facility] INDICATION: R53.83: Fatigue, unspecified type ADDITIONAL [...] intact. Report dictated by Cody Hinkle MD (advertising vice president). Daisy Lanier MD have personally reviewed and interpreted this examination/study. > Interpreting Provider: Daisy Land MD on 12/17/2022 1:47 PM Procedure Note Daisy Ladn MD - 12/17/2022 PROCEDURE: XR CHEST 1VW PORTABLE, DATE/TIME OF EXAM: 12/17/2022 1:05PM, LOCATION [facility] INDICATION: R53.83: Fatigue, unspecified type ADDITIONAL [...] isintact. Report dictated by Cody Hinkle MD (advertising vice president). Daisy Lanier MD have personally reviewed and interpreted this examination/study. > Interpreting Provider: Daisy Land MD on 12/17/2022 1:47 PM Terry Centeno MD DIAGNOSTIC IMAGING O RDERABLES * MANUAL DIFFERENTIAL REVIEWED (12/03/2022 8:54 AM CDT) Only the most recent of2 resultswithin the time period is included. Manual Differential Reviewed DIFFERENTIAL REVIEW - CONFIRMED DIFFERENTIAL REVIEW - CONFIRMED 12/08/2022 5:27 PM CDT [facility] Blood BLOOD SPECIMEN / Unknown 12/03/2022 8:54 AM CDT 12/03/2022 9:02 AM CDT Narrative [facility] - 12/08/2022 5:27 PM CDT Slight left shifted neutrophils some with reactive changes. Rare immature appearing monocyte. Shreyas Phillips MD LAB - HEMATOLOGY ORD ERABLES Performing Organization Address [facility] Co de Phone Number [address] [address], [facility] [phone] * PATHOLOGY PERIPHERAL SMEAR REVIEW (11/24/2022 11:23 AM CDT) Only the most recent of2 resultswithin the time period is included. [facility] Pathology Diff Review DIFFERENTIAL REVIEW - CONFIRMED DIFFERENTIAL REVIEW - CONFIRMED 11/24/2022 6:01 PM CDT [facility] Blood BLOOD SPECIMEN / Unknown Venipuncture / Unknown 11/24/2022 11:23 AM CDT 11/24/2022 11:28 AM CDT Narrative [facility] - 11/24/2022 6:01 PM CDT Final diagnosis: [...] - PATHOLOGY/CYTO LOGY ORDERABLES Performing Organization Address [facility] Co de Phone Number [facility] [address] [place] [address], [facility] [phone] * (ABNORMAL) CBC W/O DIFFERENTIAL (11/19/2022 5:39 AM CDT) Only the most recent of17 resultswithin the time period is included. [facility] WBC 3.1(L) 3.5 - 10.5 10 3/uL 11/19/2022 6:39 AM CDT [facility] RBC 2.76(L) 3.80 - 5.20 10 6/uL 11/19/2022 6:39 AM [facility] Hemoglobin 8.7(L) 12.0 - 15.6 g/dL 11/19/2022 6:39 AM [facility] Hematocrit 27.0(L) 35.0 - 45.0 % 11/19/2022 6:39 AM [facility] MCV 97.8 80.7 - 98.3 fL 11/19/2022 6:39 AM [facility] MCH 31.5 26.7 - 34.0 pg 11/19/2022 6:39 AM [facility] MCHC 32.2 30.8 - 35.9 g/dL 11/19/2022 6:39 AM [facility] RDW-SD 71.5(H) 36.0 - 50.0 fL 11/19/2022 6:39 AM [facility] RDW-CV 20.1(H) 11.2 - 14.8 % 11/19/2022 6:39 AM [facility] Platelet Count 120(L) 150 - 400 10 3/uL 11/19/2022 6:39 AM [facility] MPV 9.8 9.4 - 12.9 fL 11/19/2022 6:39 AM [facility] nRBC Absolute 0.00 0 10 3/uL 11/19/2022 6:39 AM [facility] nRBC Auto 0.0 0 /100 WBC 11/19/2022 6:39 AM [facility] Blood BLOOD SPECIMEN / Unknown Lab Venipuncture / Unknown 11/19/2022 5:39 AM CDT 11/19/2022 6:15 AM CDT Rajani Linares MD LAB - HEMATOLOGY ORD ERABLES [facility] [address] [place] [address], [facility] [phone] * (ABNORMAL) RENAL FUNCTION PANEL (11/19/2022 5:39 AM CDT) Only the most recent of13 resultswithin the time period is included. BUN 22 7 - 26 mg/dL 11/19/2022 6:47 AM [facility] Creatinine 0.62 0.56 - 0.96 mg/dL 11/19/2022 6:47 AM [facility] Sodium 137 136 - 145 mmol/L 11/19/2022 6:47 AM [facility] Potassium 3.6 3.5 - 4.5 mmol/L 11/19/2022 6:47 AM [facility] Chloride 107 98 - 107 mmol/L 11/19/2022 6:47 AM [facility] CO2 24 22 - 29 mmol/L 11/19/2022 6:47 AM [facility] Glucose 129(H) 70 - 115 mg/dL 11/19/2022 6:47 AM [facility] Albumin 2.9(L) 3.4 - 5.0 g/dL 11/19/2022 6:47 AM [facility] Calcium 8.4 8.4 - 10.2 mg/dL 11/19/2022 6:47 AM [facility] Phosphorus 3.1 2.9 - 5.1 mg/dL 11/19/2022 6:47 AM [facility] Anion Gap 10 8 - 18 11/19/2022 6:47 AM [facility] BUN/Creatinine Ratio 35(H) 7 - 23 11/19/2022 6:47 AM [facility] Osmolality Calculated 289 270 - 300 mOsm/kg 11/19/2022 6:47 AM [facility] eGFR by CKD-EPI >90 >=90 mL/min/1.7 3 m2 11/19/2022 6:47 AM [facility] Blood BLOOD SPECIMEN / Unknown Lab Venipuncture / Unknown 11/19/2022 5:39 AM CDT 11/19/2022 6:16 AM [facility] Rajani Linares MD LAB - CHEMISTRY SILVINO LENZ [facility] Organization Address City/State/ZIP Co de Phone Number [facility] [address] [place] [address], [facility] [phone] * LACTIC ACID BLOOD (11/18/2022 3:21 PM CDT) Only the most recent of2 resultswithin the time period is included. [facility] Lactic Acid-Stat 1.2 <=2.0 mmol/L 11/18/2022 3:53 PM CDT [facility] Blood BLOOD SPECIMEN / Unknown Venipuncture / Unknown 11/18/2022 3:21 PM CDT 11/18/2022 3:31 PM CDT Ezra Ross MD LAB - CHEMISTRY SILVINO LENZ [facility] [address] [place] [address], [facility] [phone] * CULTURE BLOOD (11/18/2022 2:36 PM CDT) Only the most recent of2 resultswithin the time period is included. [facility] Culture No growth day 5 [facility] 11/23/2022 7:00 PM CDT [facility] Blood PERIPHERAL BLOOD / Unknown Venipuncture / Unknown 11/18/2022 2:36 PM CDT 11/18/2022 2:40 PM CDT Adia Alfredo MD LAB - MICROBIOLOGY O RDERABLES [facility] [address] [place] [address], [facility] [phone] * (ABNORMAL) CALCIUM IONIZED WHOLE BLOOD (11/18/2022 1:50 PM CDT) [facility] Calcium Ionized 1.20 mmol/L 11/18/2022 2:13 PM CDT [facility] pH 7.33(L) 7.35 - 7.45 pH 11/18/2022 2:13 PM CDT [facility] Ionized Calcium pH Adjusted 1.17(L) 1.19 - 1.34 mmol/L 11/18/2022 2:13 PM CDT [facility] Blood BLOOD SPECIMEN / Unknown Venipuncture / Unknown 11/18/2022 1:50 PM CDT 11/18/2022 2:10 PM CDT Adia Alfredo MD LAB - CHEMISTRY SILVINO LENZ [facility] [address] [place] [address], [place] [phone] * (ABNORMAL) RETIC COUNT (11/18/2022 1:50 PM CDT) Reticulocyte % 1.0 0.4 - 2.5 % 11/18/2022 2:18 PM CDT [facility] Reticulocyte Absolute 0.0281 0.0200 - 0.1300 10 6/uL 11/18/2022 2:18 PM CDT [facility] Reticulocyte Immature Fractionated 7.0 0.9 - 14.3 % 11/18/2022 2:18 PM CDT [facility] Hemoglobin Retic 37.7(H) 27.8 - 36.8 pg 11/18/2022 2:18 PM CDT [facility] Blood BLOOD SPECIMEN / Unknown Venipuncture / Unknown 11/18/2022 1:50 PM CDT 11/18/2022 2:12 PM CDT Adia Alfredo MD LAB - HEMATOLOGY SONDRA LAI [address] [address], [place] [phone] * HAPTOGLOBIN (11/18/2022 1:50 PM CDT) Haptoglobin 69 14 - 258 mg/dL 11/18/2022 3:10 PM CDT [facility] Blood BLOOD SPECIMEN / Unknown Venipuncture / Unknown 11/18/2022 1:50 PM CDT 11/18/2022 2:11 PM CDT Adia Alfredo MD LAB - CHEMISTRY SILVINO LENZ [address] [address], [place] [phone] * (ABNORMAL) RBC MORPHOLOGY (11/12/2022 12:49 PM CDT) Platelet Estimate Adequate Adequate 023 2:09 PM CDT [facility] Anisocytosis 1+(A) None 11/12/2022 2:09 PM CDT [facility] Macrocytosis Few(A) None 11/12/2022 2:09 PM CDT [facility] Polychromasia Occasional( A) None 11/12/2022 2:09 PM CDT [facility] Schistocytes Occasional( A) None 11/12/2022 2:09 PM CDT [facility] Ovalocytes Occasional( A) None 11/12/2022 2:09 PM CDT [facility] Tear Drop Cells Occasional( A) None 11/12/2022 2:09 PM CDT [facility] Dohle Bodies Occasional( A) None 11/12/2022 2:09 PM CDT [facility] Large Platelet Count Occasional( A) None 11/12/2022 2:09 PM CDT [facility] Blood BLOOD SPECIMEN / Unknown Venipuncture / Unknown 11/12/2022 12:49 PM CDT 11/12/2022 1:04 PM CDT Srheyas Phillips MD LAB - HEMATOLOGY ORD ERABLES [facility] [address] [place] [address], [facility] [phone] * (ABNORMAL) SLIDE SCAN HEMATOLOGY (11/11/2022 2:34 AM CDT) Only the most recent of2 resultswithin the time period is included. Platelet Estimation Adequate platelets Normal, Adequate platelets 11/11/2022 4:57 AM CDT [facility] Anisocytosis 1+(A) None 11/11/2022 4:57 AM CDT [facility] Macrocytosis 1+(A) None 11/11/2022 4:57 AM CDT [facility] Poikilocytosis 1+(A) None 11/11/2022 4:57 AM CDT [facility] Blood BLOOD SPECIMEN / Unknown Lab Venipuncture / Unknown 11/11/2022 2:34 AM CDT 11/11/2022 3:37 AM CDT Santosh Hoffman MD LAB - HEMATOLOGY OR DERABLES Performing Organization Address City/[facility]/ZIP Co de Phone Number [facility] [address] [place] [address] * (ABNORMAL) BASIC METABOLIC PANEL (CALCIUM TOTAL) (11/11/2022 12:25 AM CDT) Only the most recent of5 resultswithin the time period is included. [facility] Glucose 134(H) 70 - 105 mg/dL 11/11/2022 4:19 AM CDT [facility] Sodium 139 136 - 145 mmol/L 11/11/2022 4:19 AM CDT [facility] Potassium 4.5 3.5 - 5.1 mmol/L 11/11/2022 4:19 AM CDT [facility] Chloride 107 98 - 107 mmol/L 11/11/2022 4:19 AM CDT [facility] CO2 25 22 - 29 mmol/L 11/11/2022 4:19 AM CDT [facility] Calcium 9.6 8.4 - 10.4 mg/dL 11/11/2022 4:19 AM CDT [facility] Anion Gap 7 6 - 16 mmol/L 11/11/2022 4:19 AM CDT [facility] BUN 19 7 - 26 mg/dL 11/11/2022 4:19 AM CDT [facility] Creatinine 0.85 0.57 - 1.11 mg/dL 11/11/2022 4:19 AM T [facility] eGFR by CKD-EPI 76(L) >=90 mL/min/1.7 3 m2 11/11/2022 4:19 AM CDT [facility] Blood BLOOD SPECIMEN / Unknown Venipuncture / Unknown 11/11/2022 12:25 AM CDT 11/11/2022 3:37 AM CDT Peter Combs MD LAB - CHEMISTRY SILVINO LENZ [facility] [address] [place] [id number] * ECHO COMPLETE W BUBBLE STUDY (10/26/2022 8:09 AM CDT) BSA 1.5240018 [id number] m2 SSM CV FUJI PACS LV biplane [...] -25.1 % SS M CV FUJI PACS KS pk sys strain -18.8 % SSM CV [...] HR 133 SSM CV FUJ I PACS [id number] 6.088 cm SSM CV FUJ I PACS [id number] 6.153 cm SSM CV FUJ I PACS [...] hemorrhage or large vascular territory infarct. Punctate ezuia-xg-shfiduvi infarct within the left superior cerebellum seen [...] DATE/TIME OF EXAM: 10/25/2022 10:17 PM, LOCATION: [facility] HISTORY: G93.9: Lesion of cerebellum ADDITIONAL [...] vascular territory infarct, or mass effect. Punctate crfbf-ja-nprfulzv infarct within the left superior cerebellum seen [...] orbits are unremarkable. 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 CTA HEAD: No occlusion, hemodynamically significant [...] DATE/TIME OF EXAM: 10/25/2022 10:17 PM, LOCATION: [facility] HISTORY: G93.9: Lesion of cerebellum ADDITIONAL [...] large vascular territory infarct,or mass effect. Punctate xdbyr-xi-lfsuqxrq infarct within the left superior cerebellum seen [...] orbits are unremarkable. 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 CTA HEAD: No occlusion, hemodynamically significant [...] hemorrhage or large vascular territory infarct. Punctate fucbe-eo-ijzscnlv infarct within the left superior cerebellumseen on [...] Juanis Velez MD on 10/25/2022 11:05 AM Narrative [...] - 0.40 umol/L 10/28/2022 2:06 PM CDT [facility] ([facility]) Comment: INTERPRETIVE INFORMATION: MMA Serum/Plasma, Vitamin B12 Status This test was developed and its performance characteristics determined by [employer]. It has not been cleared or approved by the [place] Food and Drug Administration. This test was performed in a CLIA certified laboratory and is intended for clinical purposes. Performed By: [facility] [employer] [address] [place] [address] Oxygen Equipment Preparer: Blayne Ojeda MD, PhD CLIA Number: [id number] Blood BLOOD SPECIMEN / Unknown Venipuncture / Unknown 10/24/2022 6:11 AM CDT 10/24/2022 6:20 AM CDT James Park III, MD LAB - CHEMISTRY O RDERABLES [facility]) [address] [place] [address] * ZINC BLOOD (10/24/2022 6:11 AM CDT) Zinc 77.9 60.0 - 120.0 ug/dL 10/26/2022 10:59 PM CDT [facility] ([facility]) Comment: INTERPRETIVE INFORMATION: Zinc, Serum or [...] developed and its performance characteristics determined by [employer]. It has not been cleared or approved by the [place] Food and Drug Administration. This test was performed in a CLIA certified laboratory and is intended for clinical purposes. Performed By: [facility] [employer] [address] [place] [address] Oxygen Equipment Preparer: Blayne Ojeda MD, PhD CLIA Number: [id number] Blood BLOOD SPECIMEN / Unknown Venipuncture / Unknown 10/24/2022 6:11 AM CDT 10/24/2022 6:20 AM CDT James Park III, MD LAB - CHEMISTRY O RDJOELLE Performing Organization Address [facility] Co de Phone Number [facility]) [address] [place] [address] * VITAMIN E (10/24/2022 6:11 AM CDT) Pathologist [facility] Vitamin E Alpha Tocopherol 10.8 5.5 - 18.0 mg/L 10/27/2022 12:15 PM CDT [facility] [employer] ([facility]) Comment: This test was developed and its performance characteristics determined by [employer]. It has not been cleared or approved by the US Food and Drug Administration. This test was performed in a CLIA certified laboratory and is intended for clinical purposes. Vitamin E Gamma Tocopherol 0.6 0.0 - 6.0 mg/L 10/27/2022 12:15 PM CDT [facility] [employer] ([facility]) Comment: Performed By: [employer] [address] [place] [address] Oxygen Equipment Preparer: Blayne Ojeda MD, PhD CLIA Number: [id number] Blood BLOOD SPECIMEN / Unknown Venipuncture / Unknown 10/24/2022 6:11 AM CDT 10/24/2022 6:20 AM CDT James Park III, MD LAB - CHEMISTRY O JANICE Performing Organization Address [facility] Co de Phone Number [facility] ([facility]) [address] [place] [address] * (ABNORMAL) VITAMIN B1 (10/24/2022 6:11 AM CDT) [facility] Vitamin B1 Whole Blood 58(L) 70 - 180 nmol/L 10/27/2022 10:58 AM CDT [facility] ([facility]) Comment: INTERPRETIVE INFORMATION: Vitamin B1, Whole Blood This assay measures the concentration of thiamine diphosphate (TDP), the primary active form of vitamin B1. Approximately 90 percent of vitamin B1 present in whole blood is TDP. Thiamine and thiamine monophosphate, which comprise the remaining 10 percent, are not measured. This test was developed and its performance characteristics determined by [employer]. It has not been cleared or approved by the US Food and Drug Administration. This test was performed in a CLIA certified laboratory and is intended for clinical purposes. Performed By: [facility] [employer] [address] [place] [address] Oxygen Equipment Preparer: Blayne Ojeda MD, PhD CLIA Number: [id number] Blood BLOOD SPECIMEN / Unknown Venipuncture / Unknown 10/24/2022 6:11 AM CDT 10/24/2022 6:20 AM CDT James Park III, MD LAB - CHEMISTRY O RDERABLES [facility]) [address] [place] [address] * (ABNORMAL) VITAMIN B6 (10/24/2022 6:11 AM CDT) [facility] Vitamin B6 19.1(L) 20.0 - 125.0 nmol/L 10/28/2022 7:10 AM CDT [facility] ([facility]) Comment: INTERPRETIVE INFORMATION: Vitamin B6 (Pyridoxal 5-Phosphate) Pyridoxal 5'-phosphate measured in a specimen collected following an 8-hour or overnight fast accurately indicates vitamin B6 nutritional status. Non-fasting specimen concentration reflects recent vitamin intake. This test was developed and its performance characteristics determined by [employer]. It has not been cleared or approved by the US Food and Drug Administration. This test was performed in a CLIA certified laboratory and is intended for clinical purposes. Performed By: [facility] [employer] [address] [place] [address] Oxygen Equipment Preparer: Blayne Ojeda MD, PhD CLIA Number: [id number] Blood BLOOD SPECIMEN / Unknown Venipuncture / Unknown 10/24/2022 6:11 AM CDT 10/24/2022 6:21 AM CDT James Park III, MD LAB - CHEMISTRY O RDERAARNIE Performing Organization Address [facility] de Phone Number [facility] [employer] [facility]) [address] [place] [address] * COPPER BLOOD (10/24/2022 6:11 AM CDT) Copper 150.2 80.0 - 155.0 ug/dL 10/26/2022 10:59 PM CDT [facility] [employer] ([facility]) Comment: INTERPRETIVE INFORMATION: Copper, Serum or [...] developed and its performance characteristics determined by [employer]. It has not been cleared or approved by the US Food and Drug Administration. This test was performed in a CLIA certified laboratory and is intended for clinical purposes. Performed By: [facility] [employer] [address] [place] [address] Oxygen Equipment Preparer: Blayne Ojeda MD, PhD CLIA Number: [id number] Blood BLOOD SPECIMEN / Unknown Venipuncture / Unknown 10/24/2022 6:11 AM CDT 10/24/2022 6:20 AM CDT James Park III, MD LAB - CHEMISTRY O JANICE Performing Organization Address [facility] Co de Phone Number [facility]) [address] [place] [address] * HOMOCYSTEINE BLOOD QUANTITATIVE (10/24/2022 6:11 AM CDT) Homocysteine 6.9 4.4 - 16.2 umol/L 10/24/2022 7:08 AM CDT [facility] Blood BLOOD SPECIMEN / Unknown Venipuncture / Unknown 10/24/2022 6:11 AM CDT 10/24/2022 6:21 AM CDT James Park III, MD LAB - CHEMISTRY O RDERAARNIE Performing Organization Address City/[facility]/ZIP Co de Phone Number [address] [address], [facility] [phone] * FOLATE (10/24/2022 6:11 AM CDT) Folate 11.0 7.0 - 31.4 ng/mL 10/24/2022 7:33 AM CDT [facility] Blood BLOOD SPECIMEN / Unknown Venipuncture / Unknown 10/24/2022 6:11 AM CDT 10/24/2022 6:28 AM CDT James Park III, MD LAB - CHEMISTRY O RDJOELLE Performing Organization Address [facility]/ZIP Co de Phone Number [address] [address], [facility] [phone] * (ABNORMAL) VITAMIN B12 (10/24/2022 6:11 AM CDT) Vitamin B12 1,054(H) 213 - 816 pg/mL 10/24/2022 7:33 AM CDT [facility] Blood BLOOD SPECIMEN / Unknown Venipuncture / Unknown 10/24/2022 6:11 AM CDT 10/24/2022 6:28 AM CDT James Park III, MD LAB - CHEMISTRY O RDERAARNIE Performing Organization Address City/[facility]/ZIP Co de Phone Number [address] [address], [facility] [phone] * (ABNORMAL) VITAMIN D 25-HYDROXY (10/24/2022 12:50 AM CDT) Vitamin D, 25 Hydroxy 29.0(L) 30.0 - 80.0 ng/mL 10/24/2022 6:52 AM CDT [facility] Comment: The recommendations for 25-Hydroxy Vitamin D [...] III, MD LAB - CHEMISTRY O RDERABLES [address] [address], [facility] [phone] * TRANSFUSE RED BLOOD CELL LEUKOREDUCED UNIT(S) (10/23/2022 12:04 PM CDT) Parish Aguirre II, MD NURSING - BLOOD PROD TRANSFUSION * PREPARE (CROSSMATCH) RBC UNIT(S), 1 Units (10/23/2022 9:53 AM CDT) Only the most recent of4 resultswithin the time period is included. [facility] Unit Description AS1 LR PRBC IRR [facility] Unit ABO A [facility] Unit Rh POS [facility] Product Number R04 [facility] Unit Donor # [id number] [facility] Unit Status transfused [facility] Product Code [id number] [facility] Blood Type Barcode 6200 [facility] Expiration Date [id number] S BLOOD BANK LAB Blood Bank BLOOD SPECIMEN / Unknown 10/23/2022 8:28 AM CDT Parish Aguirre II, MD LAB - BLOOD BANK ORDERABLES [facility] [address] [place] [address], [facility] [phone] * MRI LUMBAR SPINE WWO CONTRAST (10/23/2022 [...] DATE/TIME OF EXAM: 10/23/2022 6:48 AM, LOCATION [facility] INDICATION: R32: Urinary incontinence, unspecified type C85.10: B-cell lymphoma, unspecified B-cell lymphoma type, unspecified body region (CMS/HCC) R29.898: Weakness of both legs [...] DATE/TIME OF EXAM: 10/23/2022 6:48 AM, LOCATION [facility] INDICATION: R32: Urinary incontinence, unspecified type [...] burden. Report dictated by Flores Farias MD (advertising vice president). I, Nakul Bridges MD have personally reviewed and interpreted this examination/study. > Interpreting Provider: Nakul Bridges MD on 10/18/2022 10:50 PM Narrative 10/18/2022 10:50 PM CDT PROCEDURE: XR ABDOMEN KUB PORTABLE, DATE/TIME OF EXAM: 10/17/2022 6:55 PM, LOCATION [facility] INDICATION: K59.00: Constipation, unspecified constipation type [...] PORTABLE, DATE/TIME OF EXAM: 10/17/2022 6:55PM, LOCATION [facility] INDICATION: K59.00: Constipation, unspecified constipation type [...] burden. Report dictated by Flores Farias MD (advertising vice president). I, Nakul Bridges MD have personally reviewed and interpreted this examination/study. > Interpreting Provider: Nakul Bridges MD on 10/18/2022 10:50 PM Michele Nieves MD DIAGNOSTIC IMAGING O RDERABLES * CYTOMEGALOVIRUS ANTIBODY IGG BLOOD (10/14/2022 10:49 AM CDT) Only the most recent of4 resultswithin the time period is included. Cytomegalovirus Antibody IgG <0.20 <=0.70 U/mL 10/15/2022 10:28 PM CDT [employer] ([facility]) Comment: INTERPRETIVE INFORMATION: Cytomegalovirus Antibody, IgG [...] laboratory at the same time. Performed By: [facility] [address] [place] [id number] [employer] Equipment Preparer: Blayne Ojeda MD, PhD Blood BLOOD SPECIMEN / Unknown Venipuncture / Unknown 10/14/2022 10:49 AM CDT 10/14/2022 11:02 AM CDT Shreyas Phillips MD LAB - CHEMISTRY SILVINO LENZ [facility] Organization Address City/State/ZIP Co de Phone Number [facility] ([facility]) [address] [phone], [facility] * TRANSFUSE RED BLOOD CELL LEUKOREDUCED UNIT(S) [...] demineralized. Report dictated by Kay Gardiner MD (advertising vice president). Ekta Lanier MD have personally reviewed and interpreted this examination/study. > Interpreting Provider: Ekta Lara MD on 10/01/2022 3:40 PM Narrative 10/01/2022 3:40 PM CDT PROCEDURE: XR HAND RIGHT 3VW OR MORE, DATE/TIME OF EXAM: 10/01/2022 12:56 PM, LOCATION [facility] INDICATION: M79.641: Right hand pain ADDITIONAL [...] MORE, DATE/TIME OF EXAM: 2:56 PM, LOCATION [facility] INDICATION: M79.641: Right hand pain ADDITIONAL [...] demineralized. Report dictated by Kay Gardiner MD (advertising vice president). I, E. Ama Lara MD have personally reviewed and interpreted this [...] Culture to follow 09/10/2022 11:44 AM CDT [facility] WBC UA 21-50(A) None Seen, 0-5 /HPF 09/10/2022 11:44 AM CDT [facility] Bacteria UA Trace(A) None /HPF 09/10/2022 11:44 AM CDT [facility] Squamous Epithelial Cells UA >20(A) None Seen, 0-2, 3-5 /HPF 09/10/2022 11:44 AM CDT [facility] Mucus UA 2+ /LPF 09/10/2022 11:44 AM CDT [facility] Hyaline Casts UA 0-2 None Seen, 0-2 /LPF 09/10/2022 11:44 AM CDT [facility] Urine URINE SPECIMEN OBTAINED BY CLEAN CATCH PROCEDURE / Unknown Collection / Unknown 09/10/2022 11:19 AM CDT 09/10/2022 11:23 AM CDT Narrative [facility] - 09/10/2022 11:44 AM CDT Shreyas Phillips MD LAB - URINALYSIS ORD ERABLES [facility] [address] [place] [address], [facility] [phone] * CULTURE URINE (09/10/2022 11:19 AM CDT) Only the most recent of2 resultswithin the time period is included. Culture Urine 50,000-100,000 CFU/mL urogenital galdino 09/12/2022 2:15 AM CDT [facility] Urine URINE SPECIMEN OBTAINED BY CLEAN CATCH PROCEDURE / Unknown Collection / Unknown 09/10/2022 11:19 AM CDT 09/10/2022 11:44 AM CDT Shreyas Phillips MD LAB - MICROBIOLOGY O RDERABLES [facility] [address] [place] [address], [facility] [phone] * PTT [facility] (09/03/2022 3:37 AM CDT) APTT 30.5 23.0 - 38.4 Seconds 09/03/2022 4:11 AM CDT [facility] Comment:Suggested therapeuti c range for full dose I.V. unfractionated heparin therapy for venous thromboembolism is 71 to 109 seconds. Blood BLOOD SPECIMEN / Unknown Venipuncture / Unknown 09/03/2022 3:37 AM CDT 09/03/2022 3:46 AM CDT Shreyas Phillips MD LAB - COAGULATION OR DERABLES Performing Organization Address City/[facility]/ZIP Co de Phone Number [address] [address], [place] [phone] * FIBRINOGEN ACTIVITY (09/03/2022 3:37 AM CDT) Fibrinogen Clauss 360 200 - 400 mg/dL 09/03/2022 4:10 AM CDT [facility] Blood BLOOD SPECIMEN / Unknown Venipuncture / Unknown 09/03/2022 3:37 AM CDT 09/03/2022 3:46 AM CDT Shreyas Phillips MD LAB - COAGULATION OR DERABLES Performing Organization Address City/[facility]/ZIP Co de Phone Number [address] [address], [facility] [phone] * TRANSFUSE RED BLOOD CELL LEUKOREDUCED UNIT(S) (08/24/2022 3:18 PM CDT) Shreyas Phillips MD NURSING - BLOOD PROD TRANSFUSION * HIV-1 HIV-2 ANTIBODY + HIV P24 AG PANEL (07/16/2022 12:15 PM CDT) Pathologist [facility] HIV Antigen/Antibod y 1 & 2 Non-reacti ve Non-react marcellus 07/16/2022 1:14 PM CDT [facility] Comment:No Laboratory eviden ce of HIV infection. Blood BLOOD SPECIMEN / Unknown Lab Venipuncture / Unknown 07/16/2022 12:15 PM CDT 07/16/2022 12:25 PM CDT Shreyas Phillips MD LAB - CHEMISTRY SILVINO LENZ [facility] Organization Address City/State/ZIP Co de Phone Number [facility] [address] [place] [address], [facility] [phone] * HEPATITIS C RNA QUANTITATIVE (07/16/2022 12:15 PM CDT) [facility] Hepatitis C RNA PCR, Interp Not detected Not detected 07/19/2022 1:08 PM CDT [facility] Blood BLOOD SPECIMEN / Unknown Lab Venipuncture / Unknown 07/16/2022 12:15 PM CDT 07/16/2022 12:25 PM CDT Narrative [facility] - 07/19/2022 1:08 PM CDT The Hepatitis C viral (HCV) RNA analysis utilized a serum sample, real-time reverse systems integration analyst PCR, and is reported as Not Detected, [...] the isolation of HCV RNA with reverse systems integration analyst of genomic HCV RNA followed by real-time PCR in the presence of an unrelated RNA internal control. The internal control ensures that RNA is isolated, and that no general significant inhibitors of the RT-PCR process are present. The analysis was performed using a U.S. FDA approved test methodology. Shreyas Phillips MD LAB - CHEMISTRY SILVINO LENZ Performing Organization Address City/[facility]/ZIP Co de Phone Number [facility] [address] [place] [address], [facility] [phone] * (ABNORMAL) ERYTHROCYTE SEDIMENTATION RATE (07/16/2022 12:15 PM CDT) Pathologist [facility] Erythrocyte Sedimentation Rate Westergren 50(H) 0 - 30 MM/HR 07/16/2022 1:22 PM CDT [facility] Blood BLOOD SPECIMEN / Unknown Lab Venipuncture / Unknown 07/16/2022 12:15 PM CDT 07/16/2022 12:29 PM CDT Srheyas Phillips MD LAB - HEMATOLOGY SONDRA LAI Performing Organization Address [facility] Co de Phone Number [address] [address], [place] [phone] * HEPATITIS B CORE ANTIBODY TOTAL (07/16/2022 12:15 PM CDT) Pathologist [facility] HBc Antibody Total Non-reacti ve Non-reacti ve 07/16/2022 1:14 PM CDT [facility] Blood BLOOD SPECIMEN / Unknown Lab Venipuncture / Unknown 07/16/2022 12:15 PM CDT 07/16/2022 12:25 PM CDT Shreyas Phillips MD LAB - CHEMISTRY SILVINO LENZ Performing Organization Address [facility] Co de Phone Number [address] [address], [place] [phone] * HEPATITIS B SURFACE ANTIGEN W RFLX CONFIRMATION (07/16/2022 12:15 PM CDT) Hepatitis B Virus Surface Antigen Non-reacti ve Non-reacti ve 07/16/2022 1:14 PM CDT [facility] Blood BLOOD SPECIMEN / Unknown Lab Venipuncture / Unknown 07/16/2022 12:15 PM CDT 07/16/2022 12:25 PM CDT Shreyas Phillips MD LAB - CHEMISTRY SILVINO LENZ [address] [address], [place] [phone] * IGM BLOOD (07/16/2022 12:15 PM CDT) IgM 166 37 - 286 mg/dL 07/16/2022 12:56 PM CDT [facility] Blood BLOOD SPECIMEN / Unknown Lab Venipuncture / Unknown 07/16/2022 12:15 PM CDT 07/16/2022 12:25 PM CDT Shreyas Phillips MD LAB - CHEMISTRY SILVINO LENZ Performing Organization Address City/[facility]/ZIP Co de Phone Number [address] [address], [place] [phone] * IGG BLOOD (07/16/2022 12:15 PM CDT) IgG 790 767 - 1,590 mg/dL 07/16/2022 12:56 PM CDT [facility] Blood BLOOD SPECIMEN / Unknown Lab Venipuncture / Unknown 07/16/2022 12:15 PM CDT 07/16/2022 12:25 PM CDT Shreyas Phillips MD LAB - CHEMISTRY SILVINO LENZ [address] [address], [place] [phone] * IGA BLOOD (07/16/2022 12:15 PM CDT) IgA 84 61 - 356 mg/dL 07/16/2022 12:56 PM CDT [facility] Blood BLOOD SPECIMEN / Unknown Lab Venipuncture / Unknown 07/16/2022 12:15 PM CDT 07/16/2022 12:25 PM CDT Shreyas Phillips MD LAB - CHEMISTRY SILVINO LENZ [facility] [address] [place] [address], [facility] [phone] * IR BOWEN CATH INSERT (07/15/2022 9:45 AM CDT) Anatomical Region Laterality Modality Chest X-Ray Angiograph y 07/15/2022 1:36 PM CDT Impressions 07/15/2022 3:31 PM CDT Impression: Successful placement of a single lumen 8 Malaysian x 20 cm chest power port via the right internal jugular vein under ultrasound and fluoroscopic guidance, as described above. Note: Keep the dressing clean and dry for 5 days. Recommend port access after 5 days to minimize infection and allow better healing. Francisca Lanier PA, was present and performed/supervised the entire procedure > Dictated by Aguila Pritchett (Mask Designer) 07/15/2022 1:38 PM ITin DO have personally reviewed and interpreted this examination/study. > Interpreting Provider: Tin Sterling DO on 07/15/2022 3:31 PM Narrative 07/15/2022 3:31 PM CDT PROCEDURE: IR BOWEN CATH History: This is [...] chest. 3.Fluoroscopy-guided placement of single lumen 8 Malaysian x 20 cm chest power port via the right internal jugular vein. Fluoroscopic time: 0.1 minutes Procedure details: The procedure, risks, and possible complications were explained to the patient in detail and informed consent was obtained. The patient was placed supine on the angiography table. . The right neck and upper chest were prepped and draped in the usual sterile manner. A metal fitters and machinists film of chest was obtained, which was [...] chest. 3.Fluoroscopy-guided placement of single lumen 8 Malaysian x 20 cm chestpower port via the right internal jugular vein. Fluoroscopic time: 0.1 minutes Procedure details: The procedure, risks, and possible complications were explained to the patient in detail and informed consent was obtained. The patient wasplaced supine on the angiography table. . The right neck and upper chest were prepped and draped in the usual sterile manner. A metal fitters and machinists film of chestwas obtained, which was unremarkable. [...] the procedure well [facility]. There were no immediate complicationsassociated with the procedure. Impression: Successful placement of a single lumen 8 Malaysian x 20 cmchest power port via the right internal jugular vein under ultrasound and fluoroscopic guidance, as described above. Note: Keep the dressing clean and dry for 5 days. Recommend port access after 5 days to minimize infection and allow better healing. Francisca Lanier PA, was present and performed/supervised the entire procedure > Dictated by Aguila Pritchett (Mask Designer) 07/15/2022 1:38 PM ITin DO have personally reviewed and interpreted this examination/study. > Interpreting Provider: Tin Sterling DO on 07/15/2022 3:31 PM Shreyas Phillips MD IR ORDERABLES * PATHOLOGY TISSUE (06/08/2022 11:19 AM CDT) Case Report Surgical Pathology Report Case: [id number] Authorizing Provider: Chris Julian MD Collected: 06/08/2022 11:19 AM Ordering Location: [facility] Path[facility] Lab Received: 06/10/2022 11:21 AM Pathologist: Reshma Singh MD Specimen: Lymph Node Biopsy, CT Biopsy Left Lymph Node 06/11/2022 10:47 AM CDT [facility] Final Diagnosis Lymph node, left paracolic, needle core biopsy: - Limited specimen with involvement by a RQ92-uwfmzigy mature B-cell lymphoma - See description and [...] Ki-67 is estimated at 50%. [facility] ([facility], [address] [place], [place] [address]) is reported to show an atypical JX12-dlrnrgbz population that lacks surface immunoglobulin light chain expression. In summary, the left paracolic lymph node specimen is involved by a GJ18-cxabxhrd mature B-cell lymphoma. Given the limited nature of the specimen, the differential diagnosis includes diffuse large B-cell lymphoma, a high grade B-cell lymphoma, and follicular lymphoma. FISH testing for abnormalities of MYC, BCL-2, and BCL-6 is recommended as a next step if [facility]. There is insufficient residual tissue present in [...] Clinical correlation is advised. 06/11/2022 10:47 AM [facility] PATH[facility] Clinical History Retroperitoneal lymphadenopathy. 06/11/2022 10:47 AM [facility] PATH[facility] Materials Received Received for initial diagnosis are two slides and one block (A1) labeled [id number] along with a copy of the outside pathology report. The materials originate from [facility]. All original materials are returned to the referring institution, along with a copy of our final report. 06/11/2022 10:47 AM [facility] Disclaimer The performance characteristics of all immunohistochemical and indirect immunofluorescence stains (if any) cited in this report were determined by the Histopathology Laboratory of [facility]. Some of these tests were developed [...] attending (teaching) pathologist. 06/11/2022 10:47 AM CDT [facility] Embedded Images 06/11/2022 10:47 AM CDT [facility] Pathology/Cytolo gy BIOPSY OF LYMPH NODE / Unknown 06/08/2022 11:19 AM CDT 06/10/2022 11:21 AM CDT Chris Julian MD LAB - PATHOLOGY/CYTO LOGY ORDERABLES [facility] [address] [facility] [place], [place] [id number] [place] [address] Care Teams Tool Filer Hand Relationship Specialty Start Date End Date Agustin Flor MD [address] [place] [id number] PCP - General General Medicine 06/28/22 [place] [address] [place] [address] [phone] Physician Hematology and Oncology 03/23/23 Bebe Hernandez, PA-C [address] [place] [address] Physician Financial Advisor Physician Financial Advisor 03/23/23 Nanda Rausch, RN Registered Nurse 03/23/23
--- OUTSIDE RECORDS SUMMARY | 2024-06-05 21:40 | XMS_ITS | Clinical Summary ---
Author Organization [facility] Address [address] [place] [address] Phone Care Team Providers Care Leather Goods I Assembler Name Role Phone Agustin Flor MD Primary Care Provider [phone] Allergies Active Allergy Reactions Criticality Noted Date [...] Last Done Comments DEXA Bone Density 1958 Mammogram 1958 TdaP Immunization 1958 Zoster Immunization (1 of 2) 1977 Colonoscopy 2003 Colorectal Cancer Screening 2003 Cologuard 2008 Immunochemical Fecal Occult Blood 2008 Respiratory Syncytial Virus (RSV) Immunization (Adult) [...] CDT) hepatitis C antibody 0.09 <1 S/CO [facility] ARCH [id number] 07/13/2022 9:[address] [facility] Comment: Signal/Cutoff ratio < 0.79 is Nondetected Signal/Cutoff ratio 0.80-0.99 is Grayzone Signal/Cutoff ratio > 0.99 is Detected Supplemental assays are recommended if signal/cutoff ratio is >/=1.00. Signal/cutoff ratio result >/= 5.00 is 97% predictive of positivity for recombinant immunoblot assay (RIBA) and will be reported to the [place] [facility] as required. Blood Venipuncture / Unknown 07/13/2022 1:29 PM CDT 07/13/2022 1:41 PM CDT Hans Escobar MD CHEMISTRY ORDERABLES Fin al Result [facility] [address] [place] [address], [place] from Last 3 Months or Most Recently Relevant to Health Maintenance Insurance MEDICARE C [employer] [place] Care Teams Leather Goods I Assembler Relationship Specialty Start Date End Date Agustin Flor MD PCP - General Internal Medicine 07/13/22
--- OUTSIDE RECORDS SUMMARY | 2024-06-05 21:40 | XMS_ITS | Data Portability ---
Author Organization [facility], Main Office Address [address] [place] [address] Assessment Encounter Date Assessment Date Assessment LastModified by Organization Details LastModified Time 09/21/2022 09/21/2022 Will cut her long-acting insulin in half will cut her mealtime insulin in half she will follow-up with me in 2 months Levemir will be 10 units Novolin will be 5 unit [email or web address] Not available 09/21/2022 22:52:16 11/30/2022 11/30/2022 Parking placard blood pressure diabetes hyperlipidemia discussed follow-up 3 month Not available 11/30/2022 22:36:44 02/01/2023 02/01/2023 Podiatry She can see Ortho as well Continue with her medicines for her hyperlipidemia diabetes and hypertension Follow-up with me in a month [email or web address] Not available 02/02/2023 21:20:40 03/07/2023 03/07/2023 Given her previous cardiac history will get her set up with Cardiology for surgical clearance blood pressure appears to be well-controlled at 110/62 blood work will also be ascertained for biochemical management of disease processes of medications follow-up with me in about 3 months [email or web address] Not available 03/28/2023 18:10:16 Plan of Treatment Reminders Order Date Submit Date Provider Last Modified By Organization Details Last Modified Time Details Appointments None recorded. Lab CBC w/ auto diff 2022 023 [facility] (Lab), [address] [place], [address], 17:56:00 CMP, serum or plasma 2022 023 [facility] (Lab), [address] [place], [address], 3 19:22:35 lipid panel, serum 2022 023 [facility] (Lab), [address] [place], [address], 3 19:22:40 glycohemogl obin, total, blood 2022 023 [facility] (Lab), [address] [place], [address], 3 19:20:54 urinalysis, dipstick 2022 023 [email or web address] 9 [facility] [place], [address] [facility], [address], [place], [address], 3 16:45:58 Referral cardiologis t referral 2022 023 [email or web address] Annie Simpson MD, 0 [facility], [address], [place], [address], 4 19:10:44 Procedures None recorded. Surgeries None recorded. Imaging CT, urogram 2022 023 [facility] ([facility]), [address] [place], [address], 3 05:01:33 Medication Orders None recorded. Patient TargetsNo targets recorded. Patient InstructionsNo instructions recorded. Reason for Referral [employer] Referral for Pr e-surgery evaluation Referring Physician: Agustin Flor, Internal Medicine, Encounter Date: 03/07/2023 Results Created Date Observation Date Name Description Value Unit Range Abnormal Flag Note LastModifiedBy Organization Detail LastModifiedTime 06/23/19 23 06/22/2022 URINA LYSIS COMPL ETE/I RIS W/RFX color YELLOW Not Available [facility] (Lab) [address] [place], [address], 06/22/2022 14:38:50 06/23/19 23 06/22/2022 URINA LYSIS COMPL ETE/I RIS W/RFX appear EX.TUR BID Not Available [facility] (Lab) [address] [place], [address], 06/22/2022 14:38:50 06/23/19 23 06/22/2022 URINA LYSIS COMPL ETE/I RIS W/RFX specific gravity 1.016 1.001- 1.030 Not Available [facility] (Lab) [address] [facility] [place], [address], 06/22/2022 14:38:50 06/23/19 23 06/22/2022 URINA LYSIS COMPL ETE/I RIS W/RFX pH 6.5 pH_un its 5.0-9. 0 Not Available [facility] (Lab) [address] [place], [address], 06/22/2022 14:38:50 06/23/19 23 06/22/2022 URINA LYSIS COMPL ETE/I RIS W/RFX leukocytes NEGATI VE palak/u L negati ve- Not Available [facility] (Lab) [address] [place], [address], 06/22/2022 14:38:50 06/23/19 23 06/22/2022 URINA LYSIS COMPL ETE/I RIS W/RFX nitrite NEGATI VE negati ve- Not Available [facility] (Lab) [address] [place], [address], 06/22/2022 14:38:50 06/23/19 23 06/22/2022 URINA LYSIS COMPL ETE/I RIS W/RFX protein 10 mg/dL negati ve- abnormal Not Available [facility] (Lab) [address] [place], [address], 06/22/2022 14:38:50 06/23/19 23 06/22/2022 URINA LYSIS COMPL ETE/I RIS W/RFX glucose NORMAL mg/dL normal - Not Available [facility] (Lab) [address] [place], [address], 06/22/2022 14:38:50 06/23/19 23 06/22/2022 URINA LYSIS COMPL ETE/I RIS W/RFX ketones NEGATI VE mg/dL negati ve- Not Available [facility] (Lab) [address] [place], [address], 06/22/2022 14:38:50 06/23/19 23 06/22/2022 URINA LYSIS COMPL ETE/I RIS W/RFX urobilinogen NORMAL mg/dL normal - Not Available [facility] (Lab) [address] [place], [address], 06/22/2022 14:38:50 06/23/19 23 06/22/2022 URINA LYSIS COMPL ETE/I RIS W/RFX bilirubin NEGATI VE mg/dL negati ve- Not Available [facility] (Lab) [address] [place], [address], 06/22/2022 14:38:50 06/23/19 23 06/22/2022 URINA LYSIS COMPL ETE/I RIS W/RFX blood NEGATI VE mg/dL negati ve- Not Available [facility] (Lab) [address] [place], [address], 06/22/2022 14:38:50 06/23/19 23 06/22/2022 URINA LYSIS COMPL ETE/I RIS W/RFX white blood cells 0-8 /i??h pfi?? 0-8 Not Available [facility] (Lab) [address] [place], [address], 06/22/2022 14:38:50 06/23/19 23 06/22/2022 URINA LYSIS COMPL ETE/I RIS W/RFX red blood cells 0-4 /i??h pfi?? 0-4 Not Available [facility] (Lab) [address] [place], [address], 06/22/2022 14:38:50 06/23/19 23 06/22/2022 URINA LYSIS COMPL ETE/I RIS W/RFX bacteria NONE Not Available [facility] (Lab) [address] [facility] [place], [address], 06/22/2022 14:38:50 06/23/19 23 06/22/2022 URINA LYSIS COMPL ETE/I RIS W/RFX mucous OCCASI ONAL /i??l pfi?? abnormal Not Available [facility] (Lab) [address] [place], [address], 06/22/2022 14:38:50 06/23/19 23 06/22/2022 URINA LYSIS COMPL ETE/I RIS W/RFX squamous epithelial PACKED FIELD /i??l pfi?? abnormal Not Available [facility] (Lab) [address] [place], [address], 06/22/2022 14:38:50 06/23/19 23 06/22/2022 URINA LYSIS COMPL ETE/I RIS W/RFX hyaline cast FEW /i??l pfi?? none seen- abnormal Not Available [facility] (Lab) [address] [place], [address], 06/22/2022 14:38:50 07/03/19 23 07/02/2022 urina lysis , dipst ick Leukocytes (reference range: negative palak/ l) Negati ve Not Available [facility] [place] [address] [facility], [address], [place], [address], 07/02/2022 09:52:54 07/03/19 23 07/02/2022 urina lysis , dipst ick Nitrite (reference rage: negative mg/dl) negati ve Not Available [address], [address], 07/02/2022 09:52:54 07/03/1907/02/2022 urina lysis , dipst ick Urobilinogen (reference range: 0.2-1 mg/dl) 0.2 Not Available [address], [address], 07/02/2022 09:52:54 07/03/1907/02/2022 urina lysis , dipst ick Protein (reference range: negative mg/dl) Negati ve Not Available [address], [address], 07/02/2022 09:52:54 07/03/1907/02/2022 urina lysis , dipst ick pH (reference range: 5-7) 7.0 Not Available [address], [address], 07/02/2022 09:52:54 07/03/1907/02/2022 urina lysis , dipst ick Blood (reference range: negative Aaron/ l) Negati ve Not Available [address], [address], 07/02/2022 09:52:54 07/03/1907/02/2022 urina lysis , dipst ick Specific [place] (reference range: 1.005-1.030) 1.015 Not Available [address] [place], [address], 07/02/2022 09:52:54 07/03/1907/02/2022 urina lysis , dipst ick Ketone (reference range: negative mg/dl) Negati ve Not Available [address], [address], 07/02/2022 09:52:54 07/03/19 23 07/02/2022 urina lysis , dipst ick Bilirubin (reference range: negative mg/dl) Negati ve Not Available [address], [address], 07/02/2022 09:52:54 07/03/19 23 07/02/2022 urina lysis , dipst ick Glucose (reference range: negative mg/dl) 500 Not Available [address], [address], 07/02/2022 09:52:54 07/03/19 23 07/02/2022 urina lysis , dipst ick Appearance Clear Not Available [address], [address], 07/02/2022 09:52:54 07/03/1907/02/2022 urina lysis , dipst ick Color Yellow Not Available [address], [address], 07/02/2022 09:52:54 07/20/1907/19/2022 urina lysis , dipst ick Leukocytes (reference range: negative palak/ l) Negati ve Not Available [address] [place], [address], 07/19/2022 11:58:47 07/20/19 23 07/19/2022 urina lysis , dipst ick Nitrite (reference rage: negative mg/dl) negati ve Not Available [address], [address], 07/19/2022 11:58:47 07/20/19 23 07/19/2022 urina lysis , dipst ick Urobilinogen (reference range: 0.2-1 mg/dl) 0.2 Not Available [address], [address], 07/19/2022 11:58:47 07/20/19 23 07/19/2022 urina lysis , dipst ick Protein (reference range: negative mg/dl) Trace Not Available [address], [address], 07/19/2022 11:58:47 07/20/19 23 07/19/2022 urina lysis , dipst ick pH (reference range: 5-7) 6.0 Not Available [address], [address], 07/19/2022 11:58:47 07/20/19 23 07/19/2022 urina lysis , dipst ick Blood (reference range: negative Aaron/ l) Large Not Available [address], [address], 07/19/2022 11:58:47 07/20/19 23 07/19/2022 urina lysis , dipst ick Specific [place] (reference range: 1.005-1.030) 1.000 Not Available [address], [address], 07/19/2022 11:58:47 07/20/19 23 07/19/2022 urina lysis , dipst ick Ketone (reference range: negative mg/dl) Trace Not Available [address], [address], 07/19/2022 11:58:47 07/20/19 23 07/19/2022 urina lysis , dipst ick Bilirubin (reference range: negative mg/dl) Negati ve Not Available [address], [address], 07/19/2022 11:58:47 07/20/19 23 07/19/2022 urina lysis , dipst ick Glucose (reference range: negative mg/dl) Negati ve Not Available [address], [address], 07/19/2022 11:58:47 07/20/19 23 07/19/2022 urina lysis , dipst ick Appearance Clear Not Available [address], [address], 07/19/2022 11:58:47 07/20/19 23 07/19/2022 urina lysis , dipst ick Color Yellow Not Available [address], [address], 07/19/2022 11:58:47 03/07/20 23 03/07/2023 CBC/C OMPLE TE BLD COUNT W/DIF F white blood cells 5.0 x10'3 /uL 4.2-10 .8 Not Available [facility] (Lab) [address] [place], [address], 03/07/2023 17:56:00 03/07/20 23 03/07/2023 CBC/C OMPLE TE BLD COUNT W/DIF F red blood cells 4.22 x10'6 /uL 3.80-5 .20 Not Available [facility] (Lab) [address] [place], [address], 03/07/2023 17:56:00 03/07/20 23 03/07/2023 CBC/C OMPLE TE BLD COUNT W/DIF F hemoglobin 12.6 g/dL 12.0-1 5.6 Not Available [facility] (Lab) [address] [place], [address], 03/07/2023 17:56:00 03/07/20 23 03/07/2023 CBC/C OMPLE TE BLD COUNT W/DIF F hematocrit 40.4 % 35.7-4 5.7 Not Available [facility] (Lab) [address] [place], [address], 03/07/2023 17:56:00 03/07/20 23 03/07/2023 CBC/C OMPLE TE BLD COUNT W/DIF F mean red cell volume 95.7 fL 82.0-9 9.0 Not Available [facility] (Lab) [address] [place], [address], 03/07/2023 17:56:00 03/07/20 23 03/07/2023 CBC/C OMPLE TE BLD COUNT W/DIF F mean red cell hemoglobin 29.9 pg 27.0-3 3.0 Not Available [facility] (Lab) [address] [place], [address], 03/07/2023 17:56:00 03/07/20 23 03/07/2023 CBC/C OMPLE TE BLD COUNT W/DIF F mean RBC HGB concentratio n 31.2 g/dL 31.0-3 6.0 Not Available [facility] (Lab) [address] [place], [address], 03/07/2023 17:56:00 03/07/20 23 03/07/2023 CBC/C OMPLE TE BLD COUNT W/DIF F red cell distribution width 14.4 % 11.8-1 5.5 Not Available [facility] (Lab) [address] [place], [address], 03/07/2023 17:56:00 03/07/20 23 03/07/2023 CBC/C OMPLE TE BLD COUNT W/DIF F platelets 204 x10'3 /uL 150-40 0 Not Available [facility] (Lab) [address] [place], [address], 03/07/2023 17:56:00 03/07/20 23 03/07/2023 CBC/C OMPLE TE BLD COUNT W/DIF F mean platelet volume 9.9 fL 9.0-12 .4 Not Available [facility] (Lab) [address] [place], [address], 03/07/2023 17:56:00 03/07/20 23 03/07/2023 CBC/C OMPLE TE BLD COUNT W/DIF F neutrophils 71.4 % 39.0-7 2.0 Not Available [facility] (Lab) [address] [place], [address], 03/07/2023 17:56:00 03/07/20 23 03/07/2023 CBC/C OMPLE TE BLD COUNT W/DIF F lymphocytes 14.7 % 16.0-4 7.0 low Not Available [facility] (Lab) [address] [place], [address], 03/07/2023 17:56:00 03/07/20 23 03/07/2023 CBC/C OMPLE TE BLD COUNT W/DIF F monocytes 10.7 % 5.0-12 .0 Not Available [facility] (Lab) [address] [place], [address], 03/07/2023 17:56:00 03/07/20 23 03/07/2023 CBC/C OMPLE TE BLD COUNT W/DIF F eosinophils 2.0 % 1.0-7. 0 Not Available [facility] (Lab) [address] [place], [address], 03/07/2023 17:56:00 03/07/2003/07/2023 CBC/C OMPLE TE BLD COUNT W/DIF F basophils 0.8 % 0.0-2. 0 Not Available [facility] (Lab) [address] [place], [address], 03/07/2023 17:56:00 03/07/2003/07/2023 CBC/C OMPLE TE BLD COUNT W/DIF F immature granulocytes 0.4 % 0.00-0 .50 Not Available [facility] (Lab) [address] [place], [address], 03/07/2023 17:56:00 03/07/20 23 03/07/2023 CBC/C OMPLE TE BLD COUNT W/DIF F neutrophils, absolute count 3.54 x10'3 /uL 1.5-8. 0 Not Available [facility] (Lab) [address] [place], [address], 03/07/2023 17:56:00 03/07/20 23 03/07/2023 CBC/C OMPLE TE BLD COUNT W/DIF F lymphocytes, absolute count 0.73 x10'3 /uL 1.07-3 .43 low Not Available [facility] (Lab) [address] [place], [address], 03/07/2023 17:56:00 03/07/20 23 03/07/2023 CBC/C OMPLE TE BLD COUNT W/DIF F monocytes, absolute count 0.53 x10'3 /uL 0.29-0 .99 Not Available [facility] (Lab) [address] [place], [address], 03/07/2023 17:56:00 03/07/20 23 03/07/2023 CBC/C OMPLE TE BLD COUNT W/DIF F eosinophils, absolute count 0.10 x10'3 /uL 0.02-0 .53 Not Available [facility] (Lab) [address] [place], [address], 03/07/2023 17:56:00 03/07/20 23 03/07/2023 CBC/C OMPLE TE BLD COUNT W/DIF F basophils, absolute count 0.04 x10'3 /uL 0.01-0 .08 Not Available [facility] (Lab) [address] [place], [address], 03/07/2023 17:56:00 03/07/20 23 03/07/2023 CBC/C OMPLE TE BLD COUNT W/DIF F immature granulocytes ,absolute 0.02 x10'3 /uL 0.00-0 .05 Not Available [facility] (Lab) [address] [place], [address], 03/07/2023 17:56:00 03/07/20 23 03/07/2023 CBC/C OMPLE TE BLD COUNT W/DIF F nucleated red blood cells 0.0 % -0 Not Available [facility] (Lab) [address] [place], [address], 03/07/2023 17:56:00 03/07/20 23 03/07/2023 CBC/C OMPLE TE BLD COUNT W/DIF F NRBC# 0.00 x10'3 /uL Not Available [facility] (Lab) [address] [place], [address], 03/07/2023 17:56:00 03/07/2003/07/2023 HEMOG LOBIN A1C HA1C 6.1 % 4.0-6. 0 high Diabe ash Moses gould Crite jacqueline: <5.7% Consi stent with absen ce of diabe ash 5.7-6 .4% Consi stent with incre ased risk for diabe ash (pred iabet es) >OR=6 .5% Consi stent with diabe ash REFER ENCE: Diabe ash Care 2016, 39( ppl.1 ):s13 -s22 Not Available [facility] (Lab) [address] [place], [address], 03/07/2023 19:20:54 03/07/20 23 03/07/2023 COMPR EHENS ROBEL METAB OLIC PANEL sodium 141 mmol/ L 137-14 5 Not Available [facility] (Lab) [address] [place], [address], 03/07/2023 19:22:35 03/07/20 23 03/07/2023 COMPR EHENS ROBEL METAB OLIC PANEL potassium 3.8 mmol/ L 3.5-5. 1 Not Available [facility] (Lab) [address] [place], [address], 03/07/2023 19:22:35 03/07/20 23 03/07/2023 COMPR EHENS ROBEL METAB OLIC PANEL chloride 103 mmol/ L 98-107 Not Available [facility] (Lab) [address] [place], [address], 03/07/2023 19:22:35 03/07/20 23 03/07/2023 COMPR EHENS ROBEL METAB OLIC PANEL carbon dioxide 30 mmol/ L 22-30 Not Available [facility] (Lab) [address] [place], [address], 03/07/2023 19:22:35 03/07/20 23 03/07/2023 COMPR EHENS ROBEL METAB OLIC PANEL anion gap 11.8 mmol/ L 14-22 low Not Available [facility] (Lab) [address] [place], [address], 03/07/2023 19:22:35 03/07/20 23 03/07/2023 COMPR EHENS ROBEL METAB OLIC PANEL glucose 84 mg/dL 70-99 Not Available [facility] (Lab) [address] [place], [address], 03/07/2023 19:22:35 03/07/20 23 03/07/2023 COMPR EHENS ROBEL METAB OLIC PANEL BUN 25 mg/dL 8-19 high Not Available [facility] (Lab) [address] [place], [address], 03/07/2023 19:22:35 03/07/20 23 03/07/2023 COMPR EHENS ROBEL METAB OLIC PANEL creatinine 0.77 mg/dL 0.66-1 .25 Not Available [facility] (Lab) [address] [place], [address], 03/07/2023 19:22:35 03/07/20 23 03/07/2023 COMPR EHENS ROBEL METAB OLIC PANEL GFR >60 Refer ence Range : Lenore ge GFR Healt hy Adult : >60 [...] calcu lator is avail able on the [facility] websi te: https ://elijah w.kid rashida.o rg/pr ofess ional s/kdo qi/gf r_cal culat or Not Available [facility] (Lab) [address] [place], [address], 03/07/2023 19:22:35 03/07/20 23 03/07/2023 COMPR EHENS ROBEL METAB OLIC PANEL alkaline phosphatase 56 U/L 38-126 Not Available [facility] (Lab) [address] [place], [address], 03/07/2023 19:22:35 03/07/20 23 03/07/2023 COMPR EHENS ROBEL METAB OLIC PANEL alanine aminotransfe rase 27 U/L 0-35 Not Available [facility] (Lab) [address] [place], [address], 03/07/2023 19:22:35 03/07/20 23 03/07/2023 COMPR EHENS ROBEL METAB OLIC PANEL aspartate aminotransfe rase 25 U/L 15-37 Not Available [facility] (Lab) [address] [place], [address], 03/07/2023 19:22:35 03/07/20 23 03/07/2023 COMPR EHENS ROBEL METAB OLIC PANEL bilirubin, total 0.20 mg/dL 0.20-1 .30 Not Available [facility] (Lab) [address] [place], [address], 03/07/2023 19:22:35 03/07/20 23 03/07/2023 COMPR EHENS ROBEL METAB OLIC PANEL calcium 9.8 mg/dL 8.4-10 .2 Not Available [facility] (Lab) [address] [place], [address], 03/07/2023 19:22:35 03/07/20 23 03/07/2023 COMPR EHENS ROBEL METAB OLIC PANEL total protein 6.3 g/dL 6.3-8. 2 Not Available [facility] (Lab) [address] [place], [address], 03/07/2023 19:22:35 03/07/20 23 03/07/2023 COMPR EHENS ROBEL METAB OLIC PANEL albumin 4.1 g/dL 3.0-4. 4 Not Available [facility] (Lab) [address] [place], [address], 03/07/2023 19:22:35 03/07/20 23 03/07/2023 COMPR EHENS ROBEL METAB OLIC PANEL globulin 2.2 g/dL 2.6-4. 2 low Not Available [facility] (Lab) [address] [place], [address], 03/07/2023 19:22:35 03/07/20 23 03/07/2023 COMPR EHENS ROBEL METAB OLIC PANEL A/G ratio 1.9 ratio 1.0-2. 0 Not Available [facility] (Lab) [address] [place], [address], 03/07/2023 19:22:35 03/07/20 23 03/07/2023 LIPID PANEL cholesterol 125 mg/dL 140-19 9 low NIH ITZEL NSUS RECOM MENDA TION FOR CEASAR STERO L: ADULT CHILD LOW RISK: <200 <170 BORDE RLINE : <200- 239 ----- HIGH RISK: >240 >200 Not Available [facility] (Lab) [address] [place], [address], 03/07/2023 19:22:40 03/07/20 23 03/07/2023 LIPID PANEL triglyceride s 273 mg/dL 0-150 high NIH ITZEL NSUS REPOR T RECOM MENDA TION FOR TRIGL YCERI GIAN: ADULT CHILD LOW RISK: <150 ----- BODER LINE: 150-1 99 ----- HIGH RISK: >200 ----- Not Available [facility] (Lab) [address] [place], [address], 03/07/2023 19:22:40 03/07/20 23 03/07/2023 LIPID PANEL HDL cholesterol 63 mg/dL 40- Not Available [facility] (Lab) [address] [place], [address], 03/07/2023 19:22:40 03/07/20 23 03/07/2023 LIPID PANEL [...] WILL NOT BE REPOR ARTHUR. Not Available [facility] (Lab) [address] [place], [address], 03/07/2023 19:22:40 07/03/19 23 07/02/2022 US, bladd er No observ ation record ed. [email or web address] [address], [address], [place], [address], 07/05/2022 10:36:06 07/16/19 23 07/15/2022 XR, chest , 2 view [facility] [address] [place] [address] Mesha pinedo Name: PAULA LOMELI Access ion #: [id number] Sex: F : 1960 5 Locati [...] 2 view chest. Page 1 of 2 [facility] Mesha pinedo Name: PAULA LOMELI Access ion #: [id number] Sex: F : 1960 5 Exam Date: 023 1:37 PM Exam Name: XR CHEST 2V Admitt ing Diagno sis(es ): Create d and electr onical ly signed by: Brandan baker MD Signed Date: 4:46 PM (CT) Dictat ed by: Brandan baker MD DD: 023 4:46 PM (CT) DT: 023 4:46 PM (CT) Page 2 of 2 [email or web address] [facility] (Imaging) [address] [place], [address], 09/23/2022 09:59:41 09/17/19 23 09/16/2022 XR, chest No observ ation record ed. [email or web address] [address], [place], [address], 09/23/2022 10:00:00 Result Notes None recorded. Problems Name Problem SNOMED Code Status Onset Date Resolution Date Notes Provider Name and Address Organization Details Recorded Time Cellulitis of foot 144717184 Active 2021 Not Available [facility] 4 12:02:15 Computed tomography result abnormal 896023442 Active 2022 Not Available [facility] 4 12:02:15 Postoperat [facility] care Active 2021 Not Available [facility] 4 12:02:15 Chronic obstructiv e pulmonary disease 96091554 Active 2016 Not Available [facility] 4 12:02:15 CT of abdomen abnormal 6280026770067 9107 Active 2022 Not Available [facility] 4 12:02:15 Cirrhosis of liver 43218951 Active 2016 Not Available [facility] 4 12:02:15 Neuropathy due to diabetes mellitus 941691300 Active 2020 Not Available [facility] 4 12:02:15 Low back pain 428932055 Active 2021 Not Available [facility] 4 12:02:15 Chest pain 75871212 Active 2022 Not Available [facility] 4 12:02:15 Type 2 diabetes mellitus without complicati on 107475628 Active 2021 Not Available [facility] 4 12:02:15 Former heavy tobacco smoker 2834158397375 00 Active 2016 Not Available [facility] 4 12:02:15 Acute urinary tract infection 505735112 Active 2021 Not Available [facility] 4 12:02:15 Type 2 diabetes mellitus 26196090 Active 2020 Not Available [facility] 4 12:02:15 Cough 27406906 Active 2021 Not Available [facility] 4 12:02:15 Upper respirator y infection 54203804 Active 2021 Not Available [facility] 4 12:02:15 Hyperlipid emia 22708117 Active 2020 Not Available [facility] 4 12:02:15 Essential hypertensi on 55001523 Active 2020 Not Available [facility] 4 12:02:15 Otitis media 73290787 Active 2021 Not Available [facility] 4 12:02:15 Urinary tract infectious disease 74482802 Active 2021 Not Available [facility] 4 12:02:15 Closed fracture of fifth metatarsal bone 74674837 Active 2020 Not Available [facility] 4 12:02:15 Mental disorder 94801658 Active 2020 Not Available [facility] 4 12:02:15 COVID-19 839873406 Active 2021 Not Available [facility] 4 12:02:16 Hyponatrem ia 50478191 Active 2021 Not Available [facility] 4 12:02:16 Dysuria 69848166 Active 2022 Not Available [facility] 4 12:02:15 Flank pain 596963378 Active 2022 Not Available [facility] 4 12:02:15 Increased frequency of urination [id number] Active 2022 Not Available [facility] 4 12:02:15 Urge incontinen ce of urine 50855818 Active 2022 Not Available [facility] 4 12:02:16 Dyspnea 231219670 Active 2022 Not Available [facility] 4 12:02:15 Nausea and vomiting 10071452 Active 2022 Not Available [facility] 4 12:02:15 Hydrourete r 80546080 Active 2022 Not Available [facility] 4 12:02:15 High grade B-cell lymphoma 665186055 Active 2022 Not Available [facility] 4 12:02:15 Uncontroll ed type 2 diabetes mellitus 434754915 Active 2022 Not Available [facility] 4 12:02:15 Notes:Medical History: Depre ssion Rhinitis [...] Covid 06/02/2020 Some problems listed in Document: #[id number] could not be added to this patient's chart. Please review this document and add these problems to the patient's chart manually as needed. Problem Notes None recorded. Procedures Surgical History Date Name Laterality Status Provider Name and Address Organization Details Recorded Time Foot Surgery completed Not Available [facility] 023 05:55:53 Tonsillectomy completed Not Available [facility] 05/26/2022 05:55:53 Hysterectomy completed [facility] 05/26/2022 05:55:53 Imaging Results Imaging Date Name Status LastModified by Organiz ation Details LastModified Time 07/02/2022 US, bladder completed [email or web address] [facility] [place] [address] [facility], [address], [place], [address], 07/05/2022 10:36:06 07/15/2022 XR, chest, 2 view completed [email or web address] [facility] (Imaging) [address] [place], [address], 09/23/2022 09:59:41 09/16/2022 XR, chest completed [email or web address] [address], [address], 09/23/2022 10:00:00 Procedure Notes None recorded. Medical Equipment None Reported. Allergies Allergen ID Allergen Name Allergen Category Reaction Reaction Severity Criticality Documentation Date Start Date Code Code System Note Provider Name and Address Organization Details Recorded Time 76546 hydrochlo rothiazid e medicatio n Not available Not available Not available 05/26/2022 5487 RxNorm Not Available [facility] 06:08:25 11720 clonazepa m medicatio n Not available Not available Not available 05/26/2022 2598 RxNorm uncon troll ed muscl e movem ent Not Available [facility] 3 06:08:25 12110 chlorthal idone medicatio n Not available Not available Not available 05/26/2022 2409 RxNorm Not Available [facility] 3 06:08:25 16970 aspirin medicatio n eye swelling severe Not available 05/26/2022 1191 RxNorm Not Available [facility] 3 06:08:25 11641 azithromy john medicatio n facial swelling Not available Not available 05/26/2022 45003 RxNorm tongu e swell ing Not Available [facility] 3 06:08:25 09207 cefdinir medicatio n rash Not available Not available 04/21/20232023 66805 RxNorm Quin Vieira RN [facility] [place] [facility] 4 16:44:05 Medications Name Sig Start Date [...] Updated DateTime 3 162.56 cm 29.4 kg/m2 18290.3 g 89 % 89 % 97.3 [degF] 78 /min 125 mm[Hg] 83 mm[Hg] KINGSLEY Willoughby [place] [facility] [place] [facility] 3 12:36:54 Date Recorded Body height Body mass index (BMI) Body weight Body temperature Heart rate Systolic blood pressure Diastolic blood pressure Provider Name and Address Organization Details Last Updated DateTime 3 162.56 cm 23.5 kg/m2 99133.1 5 g 97.6 [degF] 98 /min 102 mm[Hg] 60 mm[Hg] KINGSLEY Mccullough [facility] 3 11:28:14 Date Recorded Body height Body temperature Heart rate Systolic blood pressure Diastolic blood pressure Provider Name and Address Organization Details Last Updated DateTime 3 162.56 cm 97.5 [degF] 91 /min 114 mm[Hg] 68 mm[Hg] Ritika Espinoza RN [facility] [employer] [facility] 3 15:06:55 Date Recorded Body height Body temperature Heart rate Systolic blood pressure Diastolic blood pressure Provider Name and Address Organization Details Last Updated DateTime 02/01/2023 162.56 cm 97.4 [degF] 81 /min 110 mm[Hg] 68 mm[Hg] KINGSLEY Mccullough [facility] 3 15:10:12 Date Recorded Body height Body temperature Heart rate Oxygen saturation Oxygen saturation in Arterial blood by Pulse oximetry Systolic blood pressure Diastolic blood pressure Provider Name and Address Organization Details Last Updated DateTime 3 162.56 cm 97.5 [degF] 87 /min 95 % 95 % 110 mm[Hg] 62 mm[Hg] KINGSLEY Mccullough [facility] 3 15:26:25 Social History Question Answer Notes LastModified by Organization Details LastModified Time Tobacco Smoking Status Former Smoker quit 2010 Not Available [facility] 05/26/2022 05:55:15 Do You Have An Advance Directive? No MIGRATION.030 [id number] Information not available 05/26/2022 What Is Your Level Of Alcohol Consumption? None Quit 2007 MIGRATION.0301 341011 Information not available 05/26/2022 Do You Wear A Helmet When Biking? No MIGRATION.0301 498884 Information not available 05/26/2022 What Is Your Level Of Caffeine Consumption? None MIGRATION.0301 977301 Information not available 05/26/2022 In The 14 Days Before Symptom Onset, Have You Had Close Contact With A Laboratory-confi rmed COVID-19 While That Case Was Ill? No MIGRATION.0301 318300 Information not available 05/26/2022 In The 14 Days Before Symptom Onset, Have You Had Close Contact With A Person Who Is Under Investigation For COVID-19 While That Person Was Ill? No MIGRATION.0301 695853 Information not available 05/26/2022 What Type Of Diet Are You Following? REGULAR MIGRATION.0301 920990 Information not available 05/26/2022 What Is The Highest Grade Or Level Of School You Have Completed Or The Highest Degree You Have Received? [id number] MIGRATION.0301 903415 Information not available 05/26/2022 Have There Been Any Changes To Your Family Or Social Situation? No MIGRATION.0301 460302 Information not available 05/26/2022 What Is The Fluoride Status Of Your Home? Unknown MIGRATION.0301 706322 Information not available 05/26/2022 When Did You Quit Smoking? 6-10yearssincelastc igarette MIGRATION.0301 676005 Information not available 05/26/2022 Are There Any Guns Present In Your Home? No MIGRATION.0301 129596 Information not available 05/26/2022 Do You Use Insect Repellent Routinely? No MIGRATION.0301 593712 Information not available 05/26/2022 Where Do You Live? SingleLevelHouse MIGRATION.0301 356273 Information not available 05/26/2022 Do You Have A Medical Power Of Residue Furnace Operator? No MIGRATION.0301 467144 Information not available 05/26/2022 What Was The Date Of Your Most Recent Tobacco Screening? 03/07/2023 [email or web address] Information not available 03/07/2023 Do You Have Any Pets? No MIGRATION.0301 169351 Information not available 05/26/2022 What Is Your Relationship Status? MIGRATION.0301 994836 Information not available 05/26/2022 Do You Use Your Seat Belt Or Car Seat Routinely? Yes MIGRATION.0301 828194 Information not available 05/26/2022 Do You Have Smoke And Carbon Monoxide Detectors In Your Home? Yes MIGRATION.0301 604815 Information not available 05/26/2022 At What Age Did You Start Smoking Tobacco? 16 MIGRATION.0301 973938 Information not available 05/26/2022 Are You Passively Exposed To Smoke? No MIGRATION.0301 168162 Information not available 05/26/2022 Are There Any Smokers In Your House? No MIGRATION.0301 340161 Information not available 05/26/2022 What Types Of Sporting Activities Do You Participate In? None MIGRATION.0301 852903 Information not available 05/26/2022 Do You Feel Stressed (tense, Restless, Nervous, Or Anxious, Or Unable To Sleep At Night)? [id number] MIGRATION.0301 876125 Information not available 05/26/2022 Do You Use Any Illicit Or Recreational Drugs? No MIGRATION.0301 497572 Information not available 05/26/2022 Do You Use Sunscreen Routinely? No MIGRATION.0301 745331 Information not available 05/26/2022 Has Tobacco Cessation Counseling Been Provided? No MIGRATION.0301 726151 Information not available 05/26/2022 Have You Recently Traveled Abroad? No MIGRATION.0301 479889 Information not available 05/26/2022 Do You Have Any Dietary Restrictions? No MIGRATION.0301 530586 Information not available 05/26/2022 Do You Or Have You Ever Used Any Other Forms Of Tobacco Or Nicotine? No MIGRATION.0301 077233 Information not available 05/26/2022 Sex: Female Functional Status Question Answer Note LastModified by Organizat ion Details LastModified Time What is your exercise level? Moderate [id number] 6 Information not available 05/26/2022 Mental Status None recorded. Family History Relationship Description Onset Age of this Age Resolved Age Notes LastModified by Organization Details LastModified Time Mother Hypertensive disorder MIGRATION.928 [id number] Not available 05/26/2022 05:55:57 Mother Hyperlipidem ia MIGRATION.873 [id number] Not available 05/26/2022 05:55:57 Sister Hypertensive disorder MIGRATION.794 [id number] Not available 05/26/2022 05:55:57 Sister Malignant tumor of neck MIGRATION.448 5199611 Not available 05/26/2022 05:55:57 Sister Chronic obstructive pulmonary disease MIGRATION.781 [id number] Not available 05/26/2022 05:55:57 Brother Diabetes mellitus MIGRATION.539 [id number] Not available 05/26/2022 05:55:57 Medical History Condition Response BLINDNESS N NERVE DISEASE Y RHEUMATIC FEVER N BLADDER PROBLEMS N KIDNEY STONES N MRSA N OTHER # 1 N POLIO N LUNG DISEASE/DISORDER N HISTORY OF DRUG ABUSE N RADIATION / CHEMOTHERAPY N COPD Y Other # 2 N BLOOD DISEASES N EAR OR HEARING PROBLEMS N MUMPS N SHINGLES N DEPRESSION (INCLUDING POST ) Y BOWEL PROBLEMS Y STROKE/TIA N ULCERS N BENIGN PROSTATIC HYPERPLASIA N MEASLES N HYPOTENSION N MYOCARDIAL INFARCTION N OBESITY N GERD/NAUSEA N ANEURYSM N URINARY/BLADDER/KIDNEY PROBLEMS Y CORONARY ARTERY DISEASE (CAD) N ADDICTION CONCERNS N Impotence N ENDOMETRIOSIS N USE OF BLOOD THINNERS N SKIN [...] GLAUCOMA N FOOT PROBLEM N DIVERTICULITIS N SLEEP APNEA N CHICKENPOX N INFECTIOUS DISEASE N PROSTATE N HEART ARRHYTHMIA N INSOMNIA N HIGH CHOLESTEROL / HYPERLIPIDEMIA N EYE PROBLEMS N HYPERTHYROIDISM N EDEMA N CHRONIC PAIN SYNDROME N HYPOTHYROIDISM N CONSTIPATION N CAROTID BLOCKAGE N BACK / NECK PROBLEMS N HAVE YOU BEEN HOSPITALIZED OR SEEN IN [facility] ER IN THE PAST YEAR ? Y ATHEROSCLEROSIS N BREAST PROBLEMS N DIALYSIS N ECZEMA N OSTEOPOROSIS N ARTHRITIS N APPENDICITIS N DIABETES, TYPE Y BAD TEETH N ENT N HEARTBURN / REFLUX Y AUTISM SPECTRUM DISORDER (ASD) N HEPATITIS / LIVER DISEASE N GOUT N SLEEP DISORDER N ALZHEIMER'S DISEASE N Brain Problems N DEMENTIA N HERPES N SEIZURES/EPILEPSY N HEADACHES/MIGRAINES N VASCULAR DISEASE N PACEMAKER N Blood Disorder N DIZZINESS N HEART DISEASE/HEART PROBLEMS N KIDNEY DISEASE N MULTIPLE SCLEROSIS N CANCER: SPECIFY N CARDIAC ARRHYTHMIA N ATRIAL FIBRILLATION N Gall Stones N PULMONARY EMBOLISM N AUTOIMMUNE DISEASE N Gynecological HistoryNo gynecological history recorded. Obstetrics History GPAL:G 0 P 0 0 0 0 Immunizations Vaccine Type Date Status Note Provider Nam e and Address Organization Details Recorded Time COVID-19, mRNA, LNP-S, PF, 30 mcg/0.3 mL dose 2 completed Not Available [facility] 04/22/2023 12:02:17 Influenza, high-dose, quadrivalent, PF 2 completed Not Available [facility] 04/22/2023 12:02:17 Influenza, split virus, quadrivalent, preservative 0 completed Not Available [facility] 04/22/2023 12:02:17 Influenza, split virus, quadrivalent, preservative 9 completed Not Available [facility] 04/22/2023 12:02:17 influenza, unspecified formulation 7 completed Not Available [facility] 04/22/2023 12:02:17 COVID-19, mRNA, LNP-S, PF, 30 mcg/0.3 mL dose 1 completed Not Available [facility] 04/22/2023 12:02:17 COVID-19 vaccine, vector-nr, rS-Ad26, PF, 0.5 mL 1 completed Not Available [facility] 04/22/2023 12:02:17 influenza, unspecified formulation 5 completed Not Available [facility] 04/22/2023 12:02:17 Influenza, split virus, quadrivalent, PF 1 completed Not Available [facility] 04/22/2023 12:02:17 Past Encounters Encounter ID Performer Location Encounter Start Date Encounter Closed Date Diagnosis/Indication Diagnosis SNOMED-CT Code Diagnosis ICD10 Code Diagnosis Note [id number] [facility] [address] [address] 11/19/2020 00:00:00 11/19/2020 12:29:48 [id number] [facility] [address] [address] 12/10/2020 00:00:00 12/10/2020 12:17:27 [id number] [facility] Internal Med [address] [address] 01/30/2021 00:00:00 02/08/2021 22:11:25 [id number] [facility] [place] [address] [facility] [place] [address] 02/02/2021 00:00:00 02/02/2021 14:24:06 [id number] [facility] [place] [address] [place] [address] 02/10/2021 00:00:00 02/10/2021 12:54:52 [id number] [facility] [place] [address], [address] [place] [address] 02/16/2021 00:00:00 02/16/2021 09:17:20 [id number] [facility] [place] [address], [address] [place] [address] 03/09/2021 00:00:00 03/09/2021 12:59:46 [id number] [facility] Internal [address] [place] [address] 03/30/2021 00:00:00 03/30/2021 22:56:25 [id number] [facility] [place] [address], [facility] [address] [place] [address] 04/20/2021 00:00:00 04/20/2021 11:25:01 [id number] [facility] [place] [address], [facility] 4 [place] [address] 04/27/2021 00:00:00 04/27/2021 19:27:40 [id number] [facility] [place] [address], [address] [place] [address] 05/04/2021 00:00:00 05/04/2021 15:45:18 [id number] [facility] [place] [address], [address] [place] [address] 05/11/2021 00:00:00 05/12/2021 08:55:56 [id number] [facility] [place] [address], [facility] 4 [place] [address] 05/25/2021 00:00:00 05/25/2021 12:49:04 [id number] [facility] [address] [place] [address] 06/11/2021 00:00:00 06/11/2021 14:54:15 [id number] [facility] Internal Med [address] [address] 06/29/2021 00:00:00 07/19/2021 16:09:18 [id number] [facility] [place] [address] [facility] [place] [address] 07/20/2021 00:00:00 07/20/2021 22:07:42 [id number] [facility] [address] [address] 08/12/2021 00:00:00 08/12/2021 21:04:41 [id number] [facility] [address] [address] 10/26/2021 00:00:00 11/10/2021 22:20:42 [id number] [facility] [address] [address] 02/01/2022 00:00:00 02/01/2022 22:49:54 [id number] [facility] [address] [address] 04/09/2022 00:00:00 04/09/2022 15:41:24 [id number] [facility] [address] [address] 05/07/2022 00:00:00 05/16/2022 16:17:25 [id number] Agustin Flor MD [facility] [address] [address] 05/31/2022 14:34:19 05/31/2022 15:41:31 Computed tomography result abnormal 941844606 R93.89 [id number] Jean Claude Garcia NP [facility] [address] [address] 07/02/2022 11:38:25 07/02/2022 12:42:22 Dysuria 91827492 R30.0 We discussed avoiding bladder irritants such as carbonated beverages, caffeine, spicy/ acidic foods, alcohol, and/ or tobacco products. Will send urine cytology due to irritative urinary symptoms and past heavy smoker. Flank pain 850907323 R10 .9 pain reproducib le with palpation. I suspect pain is nerve/musc uloskeleta l related. UA today is negative for blood. No history of stones. Will check renal ultrasound to rule in/ out urologic pathology. follow-up after renal ultrasound to discuss results. Increased frequency of urination 206403027 R35.0 Avoid bladder irritants. Limit fluids 2 hours prior to bedtime. If patient is unsuccessf ul with behavioral strategies may consider anticholin ergic/beta 3 agonist or PF PT. Urge incon tinence of urine 00167776 N39.41 [id number] Agustin Flor MD [facility] Internal Med [facility] [address] [place] [address] Ave[address] [address] 07/05/2022 14:31:37 07/05/2022 16:10:59 Dyspnea 256868548 R06.02 Computed t omography result abnormal 160568890 R93.89 Nausea and vomiting 1693 1999 R11.2 [id number] Jean Claude Garcia NP [facility] Urology [address], [address] [address] 07/19/2022 12:22:36 07/19/2022 13:07:12 Dysuria 77140547 R30.0 We discussed avoiding bladder irritants such as carbonated beverages, caffeine, spicy/ acidic foods, alcohol, and/ or tobacco products. Will send urine cytology due to irritative urinary symptoms and past heavy smoker. 07/19/2022 Improved. Flank pain 669086646 R10 .9 get CTU. Increased frequency of urination 905638141 R35.0 Avoid bladder irritants. Limit fluids 2 hours prior to bedtime. If patient is unsuccessf ul with behavioral strategies may consider anticholin ergic/beta 3 agonist or PF PT. Urge incon tinence of urine 21183534 N39.41 Hydroureter 76435525 N13 .4 Will check CTU for structural evaluation to assess cause of left hydrourete r. No contrast allergy. I will call with results and plan appropriat e follow-up. We discussed in the abscence of structural obstructio n will need to get lasix renogram for functional assessment . [id number] Agustin Flor MD [facility] Internal 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 [id number] Agustin Flor MD [facility] Internal Med [facility] [address] [place] [address] 11/30/2022 14:50:19 11/30/2022 15:37:56 Essential hypertension 34610019 I10 Type 2 alok betes mellitus 10056362 E11.9 Hyperlipidemia 91854890 E78.5 [id number] Agustin Flor MD [facility] Internal [facility] [address] [place] [address] 02/01/2023 14:49:39 02/01/2023 16:00:58 High grade B-cell lymphoma 364131064 C85.10 Essential hypertension 87691466 I10 Hyperlipidemia 67720375 E78.5 Type 2 alok betes mellitus 60786521 E11.9 [id number] Agustin Flor MD [facility] Internal Med [facility] [address] [place] [address] 03/07/2023 14:48:19 03/07/2023 16:10:53 Pre-surgery evaluation 615750816 Z01.818 Essential hypertension 54476604 I10 Type 2 alok betes mellitus without complication 426077251 E11.9 Health Concerns Section Related Observation LastModified by Organization Detai ls LastModified Time None Recorded Concern Status LastModified by Organization Details LastModified Time None Recorded Advance Directives Directive N: Payers Encounter Date Sequence Insurance Name Policy Number Policy Gregory Covered Member ID Gregory Member ID Guarantor Name 07/19/2022 1 [employer] [place] (MEDICARE REPLACEMENT HMO) [id number] Paula S Usrey [id number] Paula S Usrey 07/19/2022 2 [place] [facility] Paula S Usrey [id number] Paula S Usrey 09/21/2022 1 [employer] [place]MEDICARE REPLACEMENT HMO) [id number] Paula S Usrey [id number] Paula S Usrey 09/21/2022 2 [place] [facility] Paula S Usrey [id number] Paula S Usrey 11/30/2022 1 [employer] [place] (MEDICARE REPLACEMENT HMO) [id number] Paula S Usrey [id number] Paula S Usrey 11/30/2022 2 [place] [facility] Paula S Usrey [id number] Paula S Usrey 02/01/2023 1 [employer] [place]MEDICARE [place]PLACEMENT HMO) [id number] Paula S Usrey [id number] Paula S Usrey 02/01/2023 2 [place] [facility] Paula S Usrey [id number] Paula S Usrey 03/07/2023 1 [employer] [place] (MEDICARE REPLACEMENT HMO) [id number] Paula S Usrey [id number] Paula S Usrey 03/07/2023 2 [place] [facility] Paula S Usrey [id number] Paula S Usrey Notes Date Note Type [...] Garcia NP [address], [place], [address], [employer] 07/19/2022 13:11:51 09/21/2022 text/html Hypertension no headache or dizziness. Gets hypoglycemic sometimes after her chemo GERD is been doing fine overall she seems to be stable she had 1 episode of hypoglycemia that necessitated an ER visit Agustin Flor MD [address], [place], [address], [employer] 09/21/2022 22:52:34 11/30/2022 text/html cancer. Chemo. Bilateral footdrop. Going through therapy. Blood sugars have been okay. Agustin Flor MD [address], [place], [address], [employer] 11/30/2022 22:37:02 02/01/2023 text/html And problems wit h her feetNeuropathy badSpecialist center to OrthoWill need foot care because of her diabetes as well Agustin Flor MD [address] [place] [address], [place], [address], [employer] 02/02/2023 21:21:32 03/07/2023 text/html He is to have scruggs rgery on feetHypertension no chest pain or shortness of breath but she does not ambulateType 2 diabetes needs an A1c no polyphagia polydipsiaCAD with stent no chest painCOPD no problems breathing at this timeB-cell lymphoma treated at [facility] Agustin Flor MD [address], [place], [address], [employer] 03/28/2023 18:10:42 OBGyn Episode No OBEpisode recorded.
--- OUTSIDE RECORDS SUMMARY | 2024-06-05 21:40 | XMS_ITS ---
Author Organization [facility] Medical Office Building [address] Address [address] [place] [address] Care Team Providers Care Population Health Manager Name Role Phone Agustin Flor MD Primary Care Provider [phone] Annie Simpson MD Unavailable [phone] Active Problems Problem Noted Date Diagnosed Date PFO (patent foramen ovale) 02/22/2024 Assessment & Plan (02/22/2024 9:06 AM [employer]): She has followed with cardiology and has now seen a surgeon with plans for repair in the next several months We will reassess her dyspnea after her recovery from this procedure Centrilobular emphysema 02/22/2024 Assessment & Plan (02/22/2024 9:05 AM [employer]): Continue Trelegy Ellipta 100 daily Albuterol as [...] 02/21 Assessment & Plan (02/22/2024 9:06 AM [employer]): Last CT chest in November of 2023 [...] pulmonary disease 01/21/2017 Cirrhosis of liver 04/01/2016 Current Treatment and Therapy Plans No current plan information found. Past Treatment and Therapy Plans No past plan information found. Lifetime Dose Tracking * Chemical Lifetime Dose Automatic Entry Manual Entr y Air kerma at the reference point (Ka,r) 97 mGy 0 mGy 97 mGy
--- OUTSIDE RECORDS SUMMARY | 2024-06-05 21:40 | XMS_ITS | Referral Summary ---
Author Organization [facility] Medical Office Building B Address [address] [place] [address] Care Team Providers Care Chiropractic Assistant Name Role Phone Agustin Flor MD Primary Care Provider + [phone] Annie Simpson MD Unavailable [phone] Encounters Date Type Department Care Team Description 05/29/2024 5:33 AM GROUP THERAPIST - 05/30/2024 11:37 AM GROUP THERAPIST Hospital Encounter [address] [address] Gallo Diehl MD PFO (patent foramen ovale) Discharge Disposition: Discharge to home or self care 05/29/2024 7:59 AM GROUP THERAPIST - 05/29/2024 11:59 PM GROUP THERAPIST Hospital Encounter [facility] Cardiac Catheterization Lab [address] [place] [address] Discharge Disposition: Discharge to home or self care 05/29/2024 8:00 AM GROUP THERAPIST - 05/29/2024 10:00 AM GROUP THERAPIST Surgery [facility] Cardiac Catheterization Lab [address] [place] [address] Gallo Diehl MD ATRIAL SEPTAL DEFECT (ASD), PATENT FORAMEN OVALE (PFO), FENESTRATION CLOSURE [id number] 05/29/2024 7:57 AM GROUP THERAPIST Anesthesia Event [facility] Cardiac Catheterization [facility] [address] [place] [address] Chavez Chiu MD Eldin, Ali S., MD 05/25/2024 9:45 AM GROUP THERAPIST Pre-Admission Testing [facility] Pre Anesthesia Testing [address] [place] [address] Pre-op testing (Primary Dx) 05/24/2024 1:05 PM GROUP THERAPIST - 05/24/2024 11:59 PM GROUP THERAPIST Hospital Encounter [facility] [id number] [place] [address] Left foot pain Discharge Disposition: Discharge to home or self care 05/24/2024 1:09 PM GROUP THERAPIST - 05/24/2024 11:59 PM GROUP THERAPIST Hospital Encounter [facility] [address] [place] [address] Right foot pain Discharge Disposition: Discharge to home or self care 05/24/2024 12:30 PM GROUP THERAPIST Office Visit [facility] Orthopaedic Surgery [id number] [place] [address] 2nd [address] [place] [address] Lakia Riddle MD Left foot pain (Primary Dx); Right foot pain; Acquired equinovarus deformity of left foot; Acquired equinovarus deformity of right foot 05/15/2024 [facility] Cardiac Catheterization Lab [address] [place] [address] Gallo Diehl MD PFO (patent foramen ovale) (Primary Dx) 03/14/2024 3:16 PM GROUP THERAPIST - 03/14/2024 11:59 PM GROUP THERAPIST Hospital Encounter [facility] [address] [place] [address] Discharge Disposition: Discharge to home or self care 03/14/2024 3:15 PM GROUP THERAPIST - 03/14/2024 11:59 PM GROUP THERAPIST Hospital Encounter [facility] [address] [place] [address] Discharge Disposition: Discharge to home or self care 03/14/2024 3:15 PM GROUP THERAPIST - 03/14/2024 11:59 PM GROUP THERAPIST Hospital Encounter [facility] [address] [place] [address] Discharge Disposition: Discharge to home or self care 03/14/2024 3:14 PM GROUP THERAPIST - 03/14/2024 11:59 PM GROUP THERAPIST Hospital Encounter [facility] [address] [place] [address] Discharge Disposition: Discharge to home or self care 03/14/2024 3:13 PM GROUP THERAPIST - 03/14/2024 11:59 PM GROUP THERAPIST Hospital Encounter [facility] [address] [place] [address] Discharge Disposition: Discharge to home or self care 03/14/2024 3:12 PM GROUP THERAPIST - 03/14/2024 11:59 PM GROUP THERAPIST Hospital Encounter [facility] [address] [place] [address] Discharge Disposition: Discharge to home or self care from Last 3 Months Allergies Active Allergy [...] nightly 11/13/19 23 Active FreeStyle Ron 3 [place] misc 2 (two) times a day 10/03/19 [...] 02/22/2024 Assessment & Plan (02/22/2024 9:06 AM GROUP THERAPIST): She has followed with cardiology and has now seen a surgeon with plans for repair in the next several months We will reassess her dyspnea after her recovery from this procedure Centrilobular emphysema 02/22/2024 Assessment & Plan (02/22/2024 9:05 AM GROUP THERAPIST): Continue Trelegy Ellipta 100 daily Albuterol as [...] 02/21 Assessment & Plan (02/22/2024 9:06 AM GROUP THERAPIST): Last CT chest in November of 2023 [...] pulmonary disease 01/21/2017 Cirrhosis of liver 04/01/2016 Social History Tobacco Use Types Packs/Day Years Used Date Smoking Tobacco: Former Cigarettes 1.5 35 S tarted: 1973 Smokeless Tobacco: Never Tobacco Cessation:Counseling Given: Not [...] on file Legal Sex Female 9:14 PM GROUP THERAPIST Gender Identity Not on file Sexual Orientation Not on file Last Filed Vital Signs Vital Sign Reading Time Taken Comments Blood Pressure 118/62 05/30/2024 7:40 AM GROUP THERAPIST Pulse 74 05/30/2024 9:02 AM GROUP THERAPIST Temperature 37.4 C (99.4 F) 05/30/2024 7:40 AM GROUP THERAPIST Respiratory Rate 18 05/30/2024 7:40 AM GROUP THERAPIST Oxygen Saturation 95% 05/30/2024 7:40 AM GROUP THERAPIST Inhaled Oxygen Concentration - - Weight 57.6 kg (126 lb 15.8 oz) 05/30/2024 5:45 AM GROUP THERAPIST Height 162.6 cm (5' 4 ) 05/29/2024 6:49 AM GROUP THERAPIST Body Mass Index 21.8 05/29/2024 6:49 AM GROUP THERAPIST Plan of Treatment Not on file Medical Devices Implanted Type Area Inspector Metal Can Device Identifier Shelf Expiration Date Model / Serial / Lot [employer] Occluder Amplatzer Talisman Pfo 25-18mm [id number]-[id number] - [id number] Implanted:Qty: 1 on 05/29/2024 by Gallo Diehl MD at [facility] Septal Defect Closure Device [employer] 03/27/2025 [id number]-[id number] / / [employer] System Closure Repair Femoral Artery Suture Mediated Perclose Prostyle 47108-01 - [id number] Implanted:Qty: 1 on 05/29/2024 by Gallo Diehl MD at [facility] [employer] 02/24/2026 57027-24 / / [id number] Procedures Procedure Name Priority Date/Time Associated Diagnosis Comments TRANSTHORACIC ECHO (TTE) LIMITED/FOLLOW UP W LTD DOPPLER/CF WO CONTRAST Routine 05/30/2024 8:27 AM GROUP THERAPIST POCT GLUCOSE DEVICE Routine 05/30/2024 8 :18 AM GROUP THERAPIST EGFR Routine 05/30/2024 4:01 AM GROUP THERAPIST DIFFERENTIAL AUTO Routine 05/30/2024 4:0 1 AM GROUP THERAPIST CBC WITH AUTO DIFFERENTIAL Routine 05/30/2024 4:01 AM GROUP THERAPIST BASIC METABOLIC PANEL Routine 05/30/2024 4:01 AM GROUP THERAPIST POCT GLUCOSE DEVICE Routine 05/29/2024 9 :18 PM GROUP THERAPIST POCT GLUCOSE DEVICE Routine 05/29/2024 5 :54 PM GROUP THERAPIST POCT GLUCOSE DEVICE Routine 05/29/2024 1 2:52 PM GROUP THERAPIST POCT GLUCOSE DEVICE Routine 05/29/2024 8 :58 AM GROUP THERAPIST ATRIAL SEPTAL DEFECT CLOSURE Routine 05/29/2024 8:38 AM GROUP THERAPIST PFO (patent foramen ovale) WA AN ELECTIVE ENDOTRACHEAL AIRWAY Routine 05/29/2024 8:12 AM GROUP THERAPIST ECG 12-LEAD Routine 05/29/2024 7:03 AM GROUP THERAPIST POCT GLUCOSE DEVICE Routine 05/29/2024 6 :38 AM GROUP THERAPIST URINALYSIS AND REFLEX TO MICROSCOPIC AND CULTURE Routine 05/25/2024 12:12 PM GROUP THERAPIST Pre-op testing XR FOOT RIGHT 3 OR MORE VIEWS Schedule Routine, Read Routine (OP Routine) 05/24/2024 1:24 PM GROUP THERAPIST Left foot pain XR FOOT LEFT 3 OR MORE VIEWS Schedule Routine, Read Routine (OP Routine) 05/24/2024 1:24 PM GROUP THERAPIST Right foot pain XR TRANSFER OF OUTSIDE FILMS Routine 03/14/2024 3:16 PM GROUP THERAPIST XR TRANSFER OF OUTSIDE FILMS Routine 03/14/2024 3:15 PM GROUP THERAPIST XR TRANSFER OF OUTSIDE FILMS Routine 03/14/2024 3:15 PM GROUP THERAPIST XR TRANSFER OF OUTSIDE FILMS Routine 03/14/2024 3:14 PM GROUP THERAPIST XR TRANSFER OF OUTSIDE FILMS Routine 03/14/2024 3:13 PM GROUP THERAPIST XR TRANSFER OF OUTSIDE FILMS Routine 03/14/2024 3:12 PM GROUP THERAPIST HEMOGLOBIN A1C Routine 04/12/2018 5:45 AM GROUP THERAPIST LIPID PANEL Routine 04/12/2018 5:45 AM GROUP THERAPIST from Last 3 Months or Most Recently Relevant to Health Maintenance Results * TRANSTHORACIC ECHO (TTE) LIMITED/FOLLOW UP W LTD DOPPLER/CF WO CONTRAST (05/30/2024 8:27 AM GROUP THERAPIST) Anatomical Region Laterality Modality Ultrasound 05/30/2024 7:49 AM GROUP THERAPIST Narrative 05/30/2024 12:27 [place] [address] Limited Echocardiogram Report Patient Name: PAULA ORELLANA S : 1960 Study Date: 05/30/2024 7:49:55 AM Gender: F Tech: THAD Location: [id number] Ref Provider: GALLO DIEHL Height(Cm): 163 BSA: [...] effusion. Electronically Signed By: Zeina Zamora DO, FACC, FASE, FASNC 05/30/2024 12:27:25 PM GROUP THERAPIST Procedure Note Zeina Zamora DO - 05/30/2024 [place] [address] Limited Echocardiogram Report Patient Name: PAULA ORELLANA S : 1960 Study Date: 05/30/2024 7:49:55 AM Gender: F Tech: Location: [id number] Ref Provider: GALLO DIEHL Height(Cm): 163 BSA: [...] effusion. Electronically Signed By: Zeina Zamora DO, JASPREET MONACO FASNC 05/30/2024 12:27:25 PM GROUP THERAPIST Gallo Diehl MD CV ECHO PROCEDURES Final Result * POCT glucose (05/30/2024 8:18 AM GROUP THERAPIST) Pathologist [facility] Glucose, POC 127 70 - 199 mg/dL Blood 05/30/2024 8:18 AM GROUP THERAPIST 05/30/2024 8:18 AM GROUP THERAPIST Gallo Diehl MD LAB POCT ORDERABLES - DEVICE Fi nal Result [facility] [address] Department of Laboratories [place] [id number] * eGFR (05/30/2024 4:01 AM GROUP THERAPIST) eGFR 61 >=60 mL/min/1. 73 m2 Comment: [...] of Race in Diagnosing Kidney Disease, JASN 202). The CKD-EPI equation should not be used for patients with unstable renal function and has not been validated in children and those over 70. Current interpretive data was last reviewed 2021. Blood 05/30/2024 4:01 AM GROUP THERAPIST 05/30/2024 4:33 AM GROUP THERAPIST us Gallo Diehl MD LAB BLOOD ORDERABLES Final Resu lt [facility] [address] Department [place] [address] * Differential, auto (05/30/2024 4:01 AM GROUP THERAPIST) Neutrophil abs 6.5 1.5 - 6.5 K/cumm Imm gran abs 0.0 0.0 - 0.1 K/cumm [facility] Lymphocyte abs 1.2 0.8 - 3.3 K/cumm [facility] Monocyte abs 0.6 0.2 - 0.8 K/cumm [facility] Eosinophil abs 0.0 0.0 - 0.5 K/cumm [facility] Basophil abs 0.0 0.0 - 0.1 K/cumm [facility] Neutrophil pct 77.2 % [facility] Comment: Interpretive Data Percent cell count reference [...] revised on 2017. Monocyte pct 7.5 % [facility] Comment: Interpretive Data Percent cell count reference ranges are not reported, since discordance with absolute values may lead to misinterpretation of CBC data. Current Interpretive Data was last revised on 2017. Eosinophil pct 0.2 % [facility] Comment: Interpretive Data Percent cell count reference ranges are not reported, since discordance with absolute values may lead to misinterpretation of CBC data. Current Interpretive Data was last revised on 2017. Basophil pct 0.2 % [facility] Comment: Interpretive Data Percent cell count reference ranges are not reported, since discordance with absolute values may lead to misinterpretation of CBC data. Current Interpretive Data was last revised on 2017. Blood 05/30/2024 4:01 AM GROUP THERAPIST 05/30/2024 4:12 AM GROUP THERAPIST us Gallo Diehl MD LAB BLOOD ORDERABLES Final Resu lt [facility] [address] Department [place] [address] * (ABNORMAL) CBC with auto differential (05/30/2024 4:01 AM GROUP THERAPIST) WBC 8.5 3.8 - 9.9 K/cumm Hgb 11.8(L) 11.9 - 15.5 g/dL [facility] Hct 37.2 35.6 - 45.5 % [facility] Plt 176 150 - 400 K/cumm [facility] MPV 9.0(L) 9.1 - 12.3 fL [facility] RBC 4.07 3.90 - 5.20 M/cumm [facility] MCV 91.4 81.3 - 96.4 fL [facility] MCH 29.0 27.1 - 33.3 pg [facility] MCHC 31.7(L) 32.3 - 35.7 g/dL [facility] RDW CV 14.6 11.1 - 14.9 % [facility] RDW SD 48.1 35.7 - 48.1 fL [facility] NRBC abs 0.00 0.00 - 0.01 K/cumm [facility] Blood 05/30/2024 4:01 AM GROUP THERAPIST 05/30/2024 4:12 AM GROUP THERAPIST Gallo Diehl MD LAB BLOOD ORDERABLES Final Resu lt Performing Organization Address [facility] Co de Phone Number [facility] THRASHER [address] [place] [address] * Basic metabolic panel (05/30/2024 4:01 AM GROUP THERAPIST) Sodium 141 135 - 145 mmol/L Potassium, pl 3.8 3.3 - 4.9 mmol/L [facility] Chloride 103 97 - 110 mmol/L [facility] CO2 25 22 - 32 mmol/L [facility] Anion gap 13 2 - 15 mmol/L [facility] BUN 22 6 - 25 mg/dL [facility] Creatinine 1.02 0.60 - 1.10 mg/dL [facility] Glucose 128 70 - 199 mg/dL [facility] Comment: Interpretive Data Fasting glucose >/= [...] 2022. Calcium 9.8 8.5 - 10.3 mg/dL [facility] Blood 05/30/2024 4:01 AM GROUP THERAPIST 05/30/2024 4:33 AM GROUP THERAPIST Gallo Diehl MD LAB BLOOD ORDERABLES Final Resu lt Performing Organization Address [facility] Co de Phone Number VIKRAM THRASHER [address] [facility] [place] [address] * (ABNORMAL) POCT glucose (05/29/2024 9:18 PM GROUP THERAPIST) Glucose, POC 213(H) 70 - 199 mg/dL Blood 05/29/2024 9:18 PM GROUP THERAPIST 05/29/2024 9:18 PM GROUP THERAPIST us Gallo Diehl MD LAB POCT ORDERABLES - DEVICE Fi nal Result Performing Organization Address [facility] Co de Phone Number VIKRAM THRASHER [address] [facility] [place] [address] * POCT glucose (05/29/2024 5:54 PM GROUP THERAPIST) Glucose, POC 115 70 - 199 mg/dL Blood 05/29/2024 5:54 PM GROUP THERAPIST 05/29/2024 5:54 PM GROUP THERAPIST us Gallo Diehl MD LAB POCT ORDERABLES - DEVICE Fi nal Result Performing Organization Address [facility] de Phone Number VIKRAM THRASHER [address] [facility] [place] [address] * (ABNORMAL) POCT glucose (05/29/2024 12:52 PM GROUP THERAPIST) Glucose, POC 224(H) 70 - 199 mg/dL Blood 05/29/2024 12:5 2 PM GROUP THERAPIST 05/29/2024 12:52 PM GROUP THERAPIST us Gallo Diehl MD LAB POCT ORDERABLES - DEVICE Fi nal Result Performing Organization Address [facility] de Phone Number VIKRAM ANNA MARIE [address] [place] [address] * POCT glucose (05/29/2024 8:58 AM GROUP THERAPIST) Glucose, POC 120 70 - 199 mg/dL Blood 05/29/2024 8:58 AM GROUP THERAPIST 05/29/2024 8:58 AM GROUP THERAPIST us Gallo Diehl MD LAB POCT ORDERABLES - DEVICE Fi nal Result Performing Organization Address [facility] de Phone Number VIKRAM ANNA MARIE [address] [place] [address] * ATRIAL SEPTAL DEFECT CLOSURE (05/29/2024 8:38 AM GROUP THERAPIST) Anatomical Region Laterality Modality X-Ray Angiograph y Narrative 05/29/2024 8:48 AM GROUP THERAPIST Table formatting from the original result was not included. ATRIAL SEPTAL DEFECT (ASD), PATENT FORAMEN OVALE (PFO), FENESTRATION CLOSURE [id number] Brief Op Note Attending Deliver Driver: Gallo Diehl MD Primary: Gallo Diehl MD CV Documenter: Selam Hernández RN CV Scrub: Ezra Douglass; Avis Lance CV Software Database Architect: Patricia Bowen RN; Shawna Cooper RN Date of Procedure: 05/29/2024 Specimens: No specimen collected in procedure Preoperative Diagnosis: Pre-op Diagnosis * PFO (patent foramen ovale) [Q21.12] Postoperative Diagnosis: Post-op Diagnosis * PFO (patent foramen ovale) [Q21.12] Name of Procedure: Procedure(s): ATRIAL SEPTAL DEFECT (ASD), PATENT FORAMEN OVALE (PFO), FENESTRATION CLOSURE [id number] Implants: Implant Name Type Inv. Item Serial No. Inspector Metal Can Lot No. LRB No. Used Action [employer] System Closure Repair Femoral Artery Suture Mediated Perclose Prostyle 20521-39 - [id number] [employer] System Closure Repair Femoral Artery Suture Mediated Perclose Prostyle 14150-47 [employer] [id number] N/A 1 Implanted [employer] Occluder Amplatzer Talisman Pfo 25-18mm [id number] - [id number] Septal Defect Closure Device [employer] Occluder [...] was proctored by Dr. Brandan Cifuentes from [facility]. COMPLICATIONS: None ESTIMATED BLOOD LOSS: 5 mL [...] for 45 days Follow up with Dr. Simpson/Duyen as outpt in 2-4 wks Follow-up echocardiogram with bubble study will be done subsequently. Gallo Diehl MD Date: 05/29/2024 Time: 8:43 AM us Gallo Diehl MD CV CARDIAC CATH PROCEDURES Yuli l Result * WA AN ELECTIVE ENDOTRACHEAL AIRWAY (05/29/2024 8:12 AM GROUP THERAPIST) Narrative Gerald Retana AA - 05/29/2024 8:12 AM GROUP THERAPIST Gerald Retana AA 05/29/2024 8:13 AM Airway [...] * ECG 12 lead (05/29/2024 7:03 AM GROUP THERAPIST) 05/29/2024 7:03 AM GROUP THERAPIST Narrative [facility] - 05/29/2024 11:11 AM GROUP THERAPIST Vent Rate: 68 bpm RR Interval: 878 msec WA Interval: 184 msec QRS Duration: 97 msec QT Interval: 425 msec QTC Interval: 442 msec P-R-T [place]: 72 - -19 - 60 degrees IMPRESSION: SINUS RHYTHM SEPTAL MYOCARDIAL INFARCTION , PROBABLY OLD VERSUS POOR R-WAVE PROGRESSION ABNORMAL ECG Electronically Signed By: Pantera Wiggins MD Gallo Diehl MD ECG ORDERABLES Final Result Performing Organization Address City/State/[facility] Co de Phone Number [facility] * POCT glucose (05/29/2024 6:38 AM GROUP THERAPIST) Glucose, POC 111 70 - 199 mg/dL Blood 05/29/2024 6:38 AM GROUP THERAPIST 05/29/2024 6:38 AM GROUP THERAPIST Gallo Diehl MD LAB POCT ORDERABLES - DEVICE Fi nal Result Performing Organization Address City/State/[facility] de Phone Number VIKRAM [address] Department [place] [address] * Urinalysis reflex to microscopic and culture Urine, clean voided (05/25/2024 12:12 PM GROUP THERAPIST) Color, ur Straw Yellow Clarity, ur Clear [...] tendency for uric acid stone formation. Source: [facility] Current Interpretive Data was last revised on [...] microscopic UA and culture not met. [facility] Urine, clean voided 05/25/2024 12:12 PM GROUP THERAPIST 05/25/2024 12:21 PM GROUP THERAPIST Marianne Matos NP LAB MICROBIOLOGY - GENERAL ORD ERABLES Final Result Performing Organization Address [facility] Co de Phone Number VIKRAM THRASHER [address] [place] [address] * XR Foot Right 3 or More Views (05/24/2024 1:24 PM GROUP THERAPIST) Anatomical Region Laterality Modality Lower Extremities, Foot Right Computed Radiography 05/24/2024 1:31 PM GROUP THERAPIST Impressions 05/24/2024 1:31 PM GROUP THERAPIST 1. 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 2. Apparent lesser hammertoe deformities with ankle fixed in plantar flexion on these nonweightbearing images. Electronically signed by: Maximus Murry MD Narrative 05/24/2024 1:31 PM GROUP THERAPIST EXAMINATION: XR FOOT LEFT 3 OR MORE [...] 3 or More Views (05/24/2024 1:24 PM GROUP THERAPIST) Anatomical Region Laterality Modality Lower Extremities, Foot Left Computed Radiography 05/24/2024 1:31 PM GROUP THERAPIST Impressions 05/24/2024 1:31 PM GROUP THERAPIST 1. 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 2. Apparent lesser hammertoe deformities with ankle fixed in plantar flexion on these nonweightbearing images. Electronically signed by: Maximus Murry MD Narrative 05/24/2024 1:31 PM GROUP THERAPIST EXAMINATION: XR FOOT LEFT 3 OR MORE [...] * XR Outside Reference (03/14/2024 3:16 PM GROUP THERAPIST) Impressions [email or web address] - 03/14/2024 3:16 PM GROUP THERAPIST These images are for Reference purposes only and have not been reviewed by [facility]. There will be no report generated by a [facility] Radiologist. Narrative [email or web address] - 03/14/2024 3:16 PM GROUP THERAPIST EXAMINATION: Images For Reference Purposes Only Lakia Riddle MD IMG XR PROCEDURES Final Re sult Performing Organization Address [facility] Co de Phone Number [email or web address] * XR Outside Reference (03/14/2024 3:15 PM GROUP THERAPIST) Impressions [email or web address] - 03/14/2024 3:15 PM GROUP THERAPIST These images are for Reference purposes only and have not been reviewed by [facility]. There will be no report generated by a [facility] Radiologist. Narrative [email or web address] - 03/14/2024 3:15 PM GROUP THERAPIST EXAMINATION: Images For Reference Purposes Only Lakia Riddle MD IMG XR PROCEDURES Final Re sult Performing Organization Address [facility] Co de Phone Number [email or web address] * XR Outside Reference (03/14/2024 3:15 PM GROUP THERAPIST) Impressions [email or web address] - 03/14/2024 3:15 PM GROUP THERAPIST These images are for Reference purposes only and have not been reviewed by [facility]. There will be no report generated by a [facility] Radiologist. Narrative [email or web address] - 03/14/2024 3:15 PM GROUP THERAPIST EXAMINATION: Images For Reference Purposes Only Lakia Riddle MD IMG XR PROCEDURES Final Re sult Performing Organization Address [facility] Co de Phone Number [email or web address] * XR Outside Reference (03/14/2024 3:14 PM GROUP THERAPIST) Impressions [email or web address] - 03/14/2024 3:14 PM GROUP THERAPIST These images are for Reference purposes only and have not been reviewed by [facility]. There will be no report generated by a [facility] Radiologist. Narrative [email or web address] - 03/14/2024 3:14 PM GROUP THERAPIST EXAMINATION: Images For Reference Purposes Only us Lakia Riddle MD IMG XR PROCEDURES Final Re sult Performing Organization Address [facility] Co de Phone Number [email or web address] * XR Outside Reference (03/14/2024 3:13 PM GROUP THERAPIST) Impressions [email or web address] - 03/14/2024 3:13 PM GROUP THERAPIST These images are for Reference purposes only and have not been reviewed by [facility]. There will be no report generated by a [facility] Radiologist. Narrative [email or web address] - 03/14/2024 3:13 PM GROUP THERAPIST EXAMINATION: Images For Reference Purposes Only Lakia Riddle MD IMG XR PROCEDURES Final Re sult Performing Organization Address [facility] de Phone Number [email or web address] * XR Outside Reference (03/14/2024 3:12 PM GROUP THERAPIST) Impressions [email or web address] - 03/14/2024 3:12 PM GROUP THERAPIST These images are for Reference purposes only and have not been reviewed by [facility]. There will be no report generated by a [facility] Radiologist. Narrative [email or web address] - 03/14/2024 3:12 PM GROUP THERAPIST EXAMINATION: Images For Reference Purposes Only Lakia Riddle MD IMG XR PROCEDURES Final Re sult Performing Organization Address [facility] Co de Phone Number [email or web address] * (ABNORMAL) Hemoglobin A1c (04/12/2018 5:45 AM GROUP THERAPIST) Hemoglobin A1c % 5.9(H) 4.0 - 5.6 % Comment: ADA 2016 GUIDELINES: Initial Diagnostic Criteria HbA1c Result: Interpretation: <5.7% Normal 5.7-6.4% At risk for diabetes mellitus >=6.5% Consistent with diabetes mellitus Diabetes monitoring Target value (ADA Recommended) <7% 04/12/2018 5:45 AM GROUP THERAPIST 04/12/2018 6:02 AM GROUP THERAPIST Narrative [facility] HISTORICAL RESULTS - 04/12/2018 6:40 AM GROUP THERAPIST Comment In AM us Guicho Nova MD LAB BLOOD ORDERABLES Final Resul t [facility] HISTORICAL RESULTS * Lipid panel (04/12/2018 5:45 AM GROUP THERAPIST) Triglycerides 124 0 - 149 mg/dL Comment: National Lipid Association/NCEP Guidelines: Normal < 150 mg/dL Borderline high 150-199 mg/dL High 200-499 mg/dL Very High >=500 mg/dL Cholesterol 118 0 - 199 mg/dL Comment: National Lipid Association/NCEP Guidelines: Desirable < 200 mg/dL Borderline high: 200-239 mg/dL High Risk: >=240 mg/dL HDL Cholesterol 52 mg/dL 9 6:42 AM [facility] HISTORICAL RESULTS Comment: Reference Ranges: Males: >=40 mg/dL Females: >=50 mg/dL LDL Cholesterol, Calc 41 0 - 129 mg/dL Comment: National Lipid Association/NCEP Guidelines: Optimal < 100 mg/dL Near Optimal 100-129 mg/dL Borderline high 130-159 mg/dL High >=160 mg/dL Cholesterol/HDL Ratio 2.3 04/12/2018 6:42 AM [facility] [employer] [facility] HISTORICAL RESULTS Comment: Optimal < 3.5:1 High > 5:1 04/12/2018 5:45 AM GROUP THERAPIST 04/12/2018 6:02 AM GROUP THERAPIST Narrative [facility] H[facility]OR[facility] RESULTS - 04/12/2018 6:42 AM GROUP THERAPIST Comment In AM Guicho Nova MD LAB BLOOD ORDERABLES Final Resul t [facility] HISTORICAL RESULTS from Last 3 Months or Most Recently Relevant to Health Maintenance Insurance [facility] MEDICARE SOLUTIONS MEDICARE SOLUTIONS IDPA Advance Directives For more information, please contact: [phone] * Full Code (Latest Code Status on File) Date Activated Date Inactivated Comments 05/29/2024 10:10 AM 05/30/2024 3:37 PM Care Teams Chiropractic Assistant Relationship Specialty Start Date End Date Agustin Flor MD PCP - General Internal Medicine 06/28/22 Annie Simpson MD [address] [place] [address] Consulting Physician Cardiology 05/30/24
[2024-06-05 22:43] VITALS: BP 149/84; PULSE 100; RESP 16; O2SAT 96
== END 2024-06-05 22:51 | disposition home or self-care (01) ==
PROVIDERS: Emergency Provider Student in an Organized Health Care Education/Training Program; PCP Internal Medicine
DX: R20.2 Paresthesia of skin (principal); T36.3X5A Adverse effect of macrolides, initial encounter
CPT/HCPCS: 36415; 71045; 80048; 85025; 96374; 99284

== ENCOUNTER 2024-06-11 14:07 | Outpatient (CLI) | payer MEDICARE, MEDICAID, SELFPAY ==
--- NOTE | 2024-06-11 | ECG_ITS ---
Test Date: 2024-06-11 15:02:44 Measurements Intervals Paia Rate: 72 P: 65 UT: 176 QRS: -17 QRSD: 91 T: 66 QT: 397 QTc: 436 Interpretive Statements SINUS RHYTHM INCOMPLETE RIGHT BUNDLE BRANCH BLOCK SEPTAL MYOCARDIAL INFARCTION , OLD Compared to ECG 04/12/2024 20:54:20 NO SIGNIFICANT CHANGES Electronically Signed On 06-12-2024 16:40:00 CDT by Renee Huitron M.D.
--- OUTSIDE RECORDS SUMMARY | 2024-06-11 16:49 | XMS_ITS | Encounter Summary ---
Author Organization [facility] Address [address] [place] [address] Care Team Providers Care Training And Quality Manager Name Role Phone Agustin Flor MD Primary Care Provider [phone] Encounter Details Date Type Department Care Team (Latest Contact Info) Description 10/27/2022 12:18 PM CDT Hospital Encounter [address] [address] Claudia Plascencia MD [address] [place] [address] [place] [phone] [facility] Social History Tobacco Use Types [...] care, and heating? Not very hard 11/20/2022 [place] [facility] - Occupational Stress [...] Info) Description 06/15/2024 11:40 AM CDT Appointment [facility] [address] [place] [address] Shreyas Phillips MD [address] [place] [address] documented as of this encounter Visit Diagnoses Not on filedocumented in this encounter Care Teams Training And Quality Manager Relationship Specialty Start Date End Date Agustin Flor MD [address] [place] [id number] PCP - General General Medicine 06/28/22 documented as of this encounter
--- OUTSIDE RECORDS SUMMARY | 2024-06-11 16:49 | XMS_ITS | Encounter Summary ---
Author Organization [facility] Address [address] [place] [address] Care Team Providers Care Technical Clerk Name Role Phone Agustin Flor MD Primary Care Provider [phone] Mabel Del Real RN Unavailable Unavailable Shreyas Phillips MD Unavailable Bebe Hernandez PA-C Unavailable Nanda Rausch RN Unavailable Unavailable Encounter Details Date Type Department Care Team (Late Contact Info) Description 06/10/2022 Lab Requisition [facility] Care Pathology Lab [address] [place] [address] Chris Julian MD [address] [address] Illness, unspecified Social History Tobacco [...] Info) Description 06/15/2024 11:40 AM CDT Appointment [facility] [address] [place] [address] Shreyas Phillips MD [address] [place] [phone] (work) documented as of this encounter Procedures Procedure Name Priority Date/Time Associated Diagnosis Comments PATHOLOGY TISSUE Routine 06/08/2022 11:1 9 AM CDT Illness, unspecified documented in this encounter Results * PATHOLOGY TISSUE (06/08/2022 11:19 AM CDT) Case Report Surgical Pathology Report Case: [id number] Authorizing Provider: Chris Julian MD Collected: 06/08/2022 11:19 AM Ordering Location: [facility] Pathology Lab Received: 06/10/2022 11:21 AM Pathologist: Reshma Singh MD Specimen: Lymph Node Biopsy, CT Biopsy Left Lymph Node 06/11/2022 10:47 AM CDT [facility] PATHOLOGY LAB Final Diagnosis Lymph node, left paracolic, needle core biopsy: - Limited specimen with involvement by a JK37-ywnkrcsf mature B-cell lymphoma - See description and comment 06/11/2022 10:47 AM CDT [facility] PATHOLOGY LAB Microscopic Description and Comment [...] estimated at 50%. Flow cytometry ([facility], [address] [place], [place] [address]) is reported to show an atypical SN57-tnabjurz population that lacks surface immunoglobulin light chain expression. In summary, the left paracolic lymph node specimen is involved by a DJ71-aonrvsuo mature B-cell lymphoma. Given the limited nature [...] Clinical correlation is advised. 06/11/2022 10:[address] [facility] PATHOLOGY [facility] Clinical History Retroperitoneal lymphadenopathy. 06/11/2022 10:[address] [facility] PATHOLOGY [facility] Materials Received Received for initial diagnosis are two slides and one block (A1) labeled [id number] along with a copy of the outside pathology report. The materials originate from [facility]. All original materials are returned to the referring institution, along with a copy of our final report. 06/11/2022 10:[address] [facility] PATH[facility] Disclaimer The performance characteristics of all immunohistochemical and indirect immunofluorescence stains (if any) cited in this report were determined by the Histopathology Laboratory of [facility]. Some of these tests were developed [...] attending (teaching) pathologist. 06/11/2022 10:47 AM CDT [facility] PATHOLOGY LAB Embedded Images 06/11/2022 10:47 AM T [facility] PATHOLOGY LAB Pathology/Cytolo gy BIOPSY OF LYMPH NODE / Unknown 06/08/2022 11:19 AM CDT 06/10/2022 11:21 AM CDT Chris Julian MD LAB - PATHOLOGY/CYTO LOGY ORDERABLES [facility] PATHOLOGY LAB [address] [facility] [place] [address], [facility] [phone] documented in this encounter Visit Diagnoses Diagnosis Illness, unspecified documented in this encounter Care Teams Technical Clerk Relationship Specialty Start Date End Date Agustin Flor MD [address] [place] [address] PCP - General General Medicine 06/28/22 Mabel Del Real RN Registered Nurse Orthopedic Surgery 02/28/23 03/27/24 [place] [address] [place] [phone] Physician Hematology and Oncology 03/23/23 Bebe Hernandez, PA-C [address] [place] [address] Physician Casino Floorperson Physician Casino Floorperson 03/23/23 Nanda Rausch, RN Registered Nurse 03/23/23 documented as of this encounter
--- OUTSIDE RECORDS SUMMARY | 2024-06-11 16:49 | XMS_ITS | CONTINUITY OF CARE DOCUMENT ---
Author Name yoselyn topete Address Unknown Organization [facility] Address [address] [place] [address] Phone [phone] Care Team Providers Care Talent Scout Name Role Phone Calvin HILL, Annie Pierce Unavailable SHIELA ELLISON MD Unavailable SHIELA ELLISON MD Unavailable [phone] PROBLEMS Condition Status Date Provider Notes S/P [...] MD Cardiology examination active Verah Bonarer i BODY LINER Cardiac septal defects active Shelley marshall BODY LINER Patent foramen ovale active Gallo Crowley Diffuse Non-Hodgkin's lympho ma (NHL) active Annei Simpson MD ENCOUNTERS Date Type Provider Location Encounter Diag nosis - In-person encounter Office Visit [facility] - In-person encounter Office Visit Annie Simpson MD [place] [facility] Diffuse Non-Hodgkin's lymphoma (NHL) - In-person encounter Office Visit Gallo Diehl MD [facility] Patent foramen ovale - In-person encounter Office Visit Annie Simpson MD [place] [facility] Cardiac septal defects - In-person encounter Office Visit Annie Simpson MD [place] Cardiology examination - In-person encounter Office Visit Annie Simpson MD [place] Preop cardiovasc. examination - In-person encounter Office Visit Annie Simpson MD [place] CVALymphoma s/p chemo - In-person encounter Office Visit Annie Simpson MD [facility] - In-person encounter Office Visit Annie Simpson MD [facility] - In-person encounter Office Visit Annie Simpson MD [facility] Cardiovascular Condition Screening - In-person encounter Office Visit Annie Simpson MD [place] - In-person encounter Office Visit Annie Simpson MD [place] - In-person encounter Office Visit Annie Simpson MD [facility] Other symptoms involving cardiovascular systemSnoringEKG - In-person encounter Office Visit Annie Simpson MD [facility] C O P D - In-person encounter Office Visit Annie Simpson MD [facility] Chest pain-type to be determined - In-person encounter Office Visit Annie Simpson MD [facility] Aortic regurgitationAortic root dilatation - In-person encounter Office Visit Annie Simpson MD [facility] - In-person encounter Office Visit Annie Simpson MD [facility] Sleep apnea - In-person encounter Office Visit Annie Simpson MD [facility] Hypertension VITAL SIGNS Date Observation Value [...] ri Ludwigneaddison oxygen saturation, oximetry 96 % Eliazbeth Denice pulse rate 79 /min Elizabeth Kayli [...] tejeda Li blood pressure, systolic 149 mm[Hg] aYncy triana Li oxygen saturation, oximetry 97 % Blanca [place] pulse rate 68 /min Blanca [place] respiratory rate E&M 14 /min Blanca [place] weight E&M 140 [lb_av] Blanca [place] height E&M 65 [in_i] Blanca [place] blood pressure, cuff size regular Hortensia tejeda [place] Body Mass Index (Ratio) 22.96 kg/m2 Josh Hernandez blood pressure, diastolic 78 mm[Hg] [facility] blood pressure, systolic 136 mm[Hg] Amarilys Thorne [...] blood pressure, cuff size large Ke rri Phonguenedadison blood pressure, diastolic 87 mm[Hg] Ke rri [...] blood pressure, systolic 131 mm[Hg] Cat herine Eminence oxygen saturation, oximetry 96 % Aletha Eminence respiratory rate E&M 14 /min Catheri ne Navarro pulse rate 64 /min Aletha Eminence weight E&M 169 [lb_av] Aletha Navarro blood pressure, cuff size regular Ca therine Eminence height E&M 65 [in_i] Aletha Eminence Body Mass Index (Ratio) 27.12 kg/m2 Christiano [...] Elizabeth Galdamez respiratory rate E&M 16 /min Elizabeth geiger pulse rate 71 /min Elizabeth Kayli [...] 75 /min Tons Booth temperature site temporal [facility] temperature E&M 98.2 [degF] [facility] respiratory rate E&M 16 /min [facility] oxygen saturation, oximetry 96 % [facility] weight E&M 153 [lb_av] Tonsha Booth blood pressure, diastolic 83 mm[Hg] To nsha Booth blood pressure, systolic 129 mm[Hg] Ton [facility] Booth blood pressure, resting Yes Tons [...] Estab. 5 platelet count 177 X10E3/UL [employer] 982-350 2563/02/2 5 red blood cell distribution width 13.4 [...] [employer] 0-149 cholesterol, serum 127 mg/dL [employer] [phone]/02/2 calcium, serum 10.2 mg/dL [employer] 8.7-10.3 5 carbon dioxide, venous blood 27 mmol/L [employer] - 5 chloride, serum 103 mmol/L [employer] 96-106 5 potassium, serum 4.5 mmol/L [employer] 3.5-5.2 5 sodium, serum 143 mmol/L [employer] [phone]/02/2 5 urea nitrogen/creatinin e ratio, serum 19 [...] active 1 capsule by mouth every night aMine Fulton NP pantoprazole 40 mg tablet,delayed release [...] smoking, year quit 2014 Shelley Askew ndall BODY LINER number of years as a smoker 35 a Shelley Barriosll BODY LINER cigarette use yes Shelley Baylee BODY LINER smoking status Former smoker Shelley Riverada sindy BODY LINER smoking, year quit 2014 [place] Robledo BODY LINER number of years as a smoker 35 a [place] Bonareri BODY LINER cigarette use yes [place] Bonareri BODY LINER smoking status Former smoker [place] Alejandro ri BODY LINER smoking, year quit 2014 Terrie Will iams [...] years as a smoker 35 a ForestClaribel Oliver smoking, year quit 2014 Forest Oliver cigarette use yes Forest talbot smoking status Former smoker Forest Lozano FAMILY HISTORY Family Member Condition Mother Family History of Di abetes: INSURANCE PROVIDERS Payer name Policy type / Coverage type [place] red [employer] party ID [facility]ARE [id number] (PPO C-SNP) [employer] insurance [employer] [id number] HEALTHCARE AND FAMILY SERVICES Medicaid 0 [id number] ADVANCE DIRECTIVES Name Date DISCUSSED - NO DECISION MADE TREATMENT PLAN Date Name Performer [id number],C, E cho 05/2021 C ONCLUSIONS: 1 . [...] a ortic valve regurgitation. Annie Simpson MD [id number],S,N eeds CT done, stress was negative. May need mamogram Annie Simpson MD [id number],C, N o YAMIL Annie Simpson MD [id number],C, H er updated medication list for this problem includes: Enalapril Maleate 5 Mg Tablet (Enalapril maleate) ..... Take 1 tablet by mouth twice daily Amlodipine 10 Mg Tablet (Amlodipine) ..... Take 1 tablet by mouth once a day BP today: 153/79 P rior BP: 120/87 (01/29/2022) Annie Simpson MD [id number],C, E cho 06/01/21 CONCLUSIONS: 1 . Technically [...] No ischemia, hyperdynamic EF Annie Simpson MD [id number],C, C heck echo C T SL August 01, 2019 T he ascending thoracic aorta measures 3.[address] 10/28/2019 [facility] prominent lymph nodes about t he esophagus. The heart is not enlarged. No thoracic aortic a neurysm or dissection. The left vertebral artery arises directly f rom the aortic arch. There January 29, [address] to evaluate aorta. CT was denied. WIll reorder Annie Simpson MD [id number],C, N o YAMIL Annie Simpson MD [id number],C, B P today: 120/87 P rior BP: [...] by mouth twice daily Annie Simpson MD [id number],C, C heck echo C T SL August 01, 2019 T he ascending thoracic aorta measures 3.[address] 10/28/2019 [facility] prominent lymph nodes about t he esophagus. The heart is not enlarged. No thoracic aortic a neurysm or dissection. The left vertebral artery arises directly f rom the aortic arch. There January 29, [address] to evaluate aorta. Annie Simpson MD [id number],C, E cho 05/2021 C ONCLUSIONS: 1 . [...] a ortic valve regurgitation. Annie Simpson MD [id number],C, E cho 06/01/21 CONCLUSIONS: 1 . Technically [...] C heck nuclear stress. Annie Simpson MD [id number],C, S tarted on Nebulizer for COPD / emphysema. Has noted improvement. No PFTs. April 24, 2021 M ay be related to the fact that she is off nebulizer is why she has CP recommended her to resume. January 29, 2022 L ots of coughing due to COPD, probably chest wall related. Annie Simpson MD [id number],C,E cho 06/01/21 CONCLUSIONS: 1 . Technically difficult [...] a ortic valve regurgitation. Annie Simpson MD [id number],C,S uspect COPD issue vs GERD. She has [...] medical management is recommended. Annie Simpson MD [id number],C, H er updated medication list for this [...] rior BP: 111/66 (04/24/2021) Annie Simpson MD [id number],CE elizabeth 05/2021 C ONCLUSIONS: 1 . Technically [...] a ortic valve regurgitation. Annie Simpson MD [id number],C, N o YAMIL Annie Simpson MD [id number],C, N o YAMIL Annie Simpson MD [id number],C, B P today: 111/66 P rior BP: [...] 1 tablet twice daily Annie Simpson MD [id number],C,[facility] August 01, 2019 T he ascending thoracic aorta measures 3.[address] 10/28/2019 [facility] prominent lymph nodes about t he esophagus. The heart is not enlarged. No thoracic aortic a neurysm or dissection. The left vertebral artery arises directly f rom the aortic arch. There Annie Simpson MD [id number],S,A ortic valve leaflets appear structurally normal. Velocities, as well as gradients across the aortic valve are normal. Mild to m oderate aortic valve regurgitation. Check echo Annie Simpson MD [id number],C, S tarted on Nebulizer for COPD / emphysema. Has noted improvement. No PFTs. April 24, 2021 M ay be related to the fact that she is off nebulizer is why she has CP recommended her to resume. Annie Simpson MD [id number],C,S uspect COPD issue prior cath 2017 I [...] PFO closure, will get it scheduled at [facility] Gallo Diehl MD Cardiology:SChedule for PFO closure at [facility] P t will be admitted for 1 night for observation Gallo Diehl MD Cardiology:SChedule for PFO closure at [facility] P t will be admitted for 1 night [...] Chris Garcia Cardiology:pending a PFO closure with [facility] [place] 02-09-2024 a ssessment of [...] PFO closure, will get it scheduled at [facility]. This visit has been a part of [...] PFO closure, will get it scheduled at [facility] Annie Simpson MD Cardiology:pending a PFO closure with [facility] [place] 02-09-2024 a ssessment of [...] PFO closure, will get it scheduled at [facility]. Annie Simpson MD Cardiology Gallo Diehl MD Cardiology Gallo Diehl MD Cardiology: S ummary & Diagnosis F ew events were noted during the study, however, the amount of the events did not constitute a diagnosis of YAMIL per A ASM guidelines. N o YAMIL Shelley Beach NP Cardiology: C valery echo C T [facility] August 01, 2019 T he ascending thoracic aorta measures 3.[address] 10/28/2019 [facility] prominent lymph nodes about t he esophagus. The heart is not enlarged. No thoracic aortic a neurysm or dissection. The left vertebral artery arises directly f rom the aortic arch. There January 29, [address] to evaluate aorta. CT was denied. WIll reorder Shelley Beach NP Cardiology:OK TO LONNIE DIEHL TO EVAL FOR PFO CLOSURE Shelley Beach NP Cardiology: E cho 06/01/21 CONCLUSIONS: 1 . [...] right to left shunting. There was a lmpad-fx-ezyk s boothe at rest by contrast study [...] right to left shunting. There was a nvduu-zb-lwal s boothe at rest by contrast study [...] right to left shunting. There was a fivmi-ja-hgeu s boothe at rest by contrast study [...] 5 . Normal LVEDP. Annie Simpson MD Cardiology:apparentl y had stroke in 2022, concerned regarding [...] right to left shunting. There was a mzpih-iv-gmie s boothe at rest by contrast study [...] N o YAMIL Annie Simpson MD Cardiology:aiden barnard had stroke in 2022, concerned regarding cryptogenic [...] ischemia, hyperdynamic EF Annie Simpson MD Cardiology[RxRsp]: C heck echo C T SL August 01, 2019 T he ascending thoracic aorta measures 3.[address] 10/28/2019 [facility] prominent lymph nodes about t he esophagus. [...] mouth twice daily Annie Simpson MD Cardiology: C heck echo C T [facility] August 01, 2019 T he ascending thoracic aorta measures 3.[address] 10/28/2019 [facility] prominent lymph nodes about t he esophagus. [...] N o YAMIL Annie Simpson MD Cardiology: N o YAMIL Annie Simpson MD Cardiology: B P today: 111/66 [...] thoracic aorta measures 3.[address] 10/28/2019 [facility] prominent lymph nodes about t he esophagus. [...] Annie Simpson MD Cardiology Follow up :[facility] August 01, 2019 T he ascending thoracic aorta measures 3.[address] 10/28/2019 [facility] prominent lymph nodes about t he esophagus. [...] up : P revious echo done in [place], current echo seems somewhat progressed. Echo 06/27/2019 [...] is trace physiologic tricuspid valve regurgitation. Cameron Riojas Telehealth: P revious echo done in [place], current echo seems somewhat progressed. Echo 06/27/2019 [...] regurgitation. Frandy Cee Cardiology:Previous echo done in [place], current echo seems somewhat progressed. Echo 06/27/2019 [...] Annie Simpson MD Date Name Dr. Diehl Venous Doppler Unila teral RLE Arterial Duplex RLE PROTHROMBIN TIME WIT H INR LIPID PANEL [...] minute walk test Ambulatory Oximetry DLCO - 62900 FRC - 95115 FVC - 05950 HISTORY OF PROCEDURES Procedure Date Procedure Name [...] completed EKG Annie Simpson MD completed SNOMED-CT: [id number] Current Medications Documented Annie Simpson MD completed
--- OUTSIDE RECORDS SUMMARY | 2024-06-11 16:49 | XMS_ITS | Clinical Summary ---
Author Organization [facility] Address [address] [place] [address] Care Team Providers Care Equipment Processor Name Role Phone Agustin Flor Primary Care Provider [phone] Allergies Active Allergy Reactions Criticality Noted Date [...] 8:27 PM 11/12/2022 4:08 PM Care Teams Equipment Processor Relationship Specialty Start Date End Date Agustin Flor [address] [phone] PCP - General 10/28/22
--- OUTSIDE RECORDS SUMMARY | 2024-06-11 16:50 | XMS_ITS | Clinical Summary ---
Author Organization [facility] Address [address] [place] [address] Phone Care Team Providers Care Solar Installation Foreman Name Role Phone Agustin Flor MD Primary Care Provider [phone] Allergies Active Allergy Reactions Criticality Noted Date [...] CDT) hepatitis C antibody 0.09 <1 S/CO [facility] ARCH [id number] B 07/13/2022 9:22 PM CDT [facility] Comment: Signal/Cutoff ratio < 0.79 is Nondetected Signal/Cutoff ratio 0.80-0.99 is Grayzone Signal/Cutoff ratio > 0.99 is Detected Supplemental assays are recommended if signal/cutoff ratio is >/=1.00. Signal/cutoff ratio result >/= 5.00 is 97% predictive of positivity for recombinant immunoblot assay (RIBA) and will be reported to the [place] [facility] Public [facility] as required. Blood Venipuncture / Unknown 07/13/2022 1:29 PM CDT 07/13/2022 1:41 PM CDT Hans Escobar MD CHEMISTRY ORDERABLES Fin al Result [facility] [address] [place] [address], [place] from Last 3 Months or Most Recently Relevant to Health Maintenance Insurance MEDICARE C [employer] [place] Care Teams Solar Installation Foreman Relationship Specialty Start Date End Date Agustin Flor MD PCP - General Internal Medicine 07/13/22
--- OUTSIDE RECORDS SUMMARY | 2024-06-11 16:50 | XMS_ITS ---
Author Organization [facility] Address [address] [place] [address] Care Team Providers Care Marketing Manager Health Communications Name Role Phone Agustin Flor MD Primary Care Provider [phone] Shreyas Phillips MD Unavailable Bebe HernandezC Unavailable [phone] Nanda Rausch RN Unavailable Unavailable Active Problems [...] (Truxima) RAPID infusionriTUXimab- abbs (Truxima) STANDARD infusionvinCRIStin b-NCKEqblxnto-vluu oside CIVI Therapy Complete Shreyas Phillips MD 6 of 6 cycles started THERAPY PLAN Plan Name Start Date Discontinue Date Treatment Medications Discontinue Reason Plan Provider Hematology plan 12/17/2022 04/26/2024 No medicatio ns scheduled. Therapy Complete Bebe Hernandez, PAKylahC ONC treatment plan 12/01/2022 12/03/2022 No medications scheduled. Therapy Complete Vicky Mendiola, CAIO-TRAILER TECHNICIAN Radiation Treatments * No radiation treatments are documented for this patient in [facility]. Treatments may have been administered in [...]
--- OUTSIDE RECORDS SUMMARY | 2024-06-11 16:50 | XMS_ITS | Clinical Summary ---
Author Organization [facility] Address [address] [place] [address] Care Team Providers Care Template Storage Clerk Name Role Phone Agustin Flor MD Primary Care Provider [phone] Shreyas Phillips MD Unavailable Bebe HernandezC Unavailable [phone] Nanda Rausch RN Unavailable Unavailable Source Comments [facility],non-owned Affiliates and Associated Physician Practices is amultiple site organization consisting of ambulatory clinics and hospital sitesin [place], [place], [place] and [place]. This disclosure is being madepursuant to the Care Everywhere program and may not contain all information available regarding this patient. Last updated 17.[facility] Allergies Active Allergy Reactions Criticality Noted [...] diabetes mellitus with diabetic nephropathy, unspecified whether longterm insulin use (HCC) Use 1 Needle as [...] 40 MG tabletIndications:C oronary artery disease involving cap[place] grande heart without angina pectoris, unspecified vessel or [...] Department Care Team Description 05/28/2024 11:00 AM BEAUTY DIRECTOR - 05/28/2024 11:59 PM [facility] Hospital Encounter [facility] CAT SCAN [address] [place] [address] Shreyas Phillips MD Discharge Disposition: Home or Self Care 05/28/2024 Travel 04/26/2024 6:01 AM BEAUTY DIRECTOR - 04/26/2024 9:05 AM [facility] Hospital Encounter [facility] KATHERINE OP [address] [place] [address] Shreyas Phillips MD Interven Radiology Discharge Disposition: Home or Self Care 04/26/2024 Travel 03/22/2024 Orders Only [facility] BMT CLINIC [address] [place] [address] Nanda Rausch, RN B-cell lymphoma, unspecified B-cell lymphoma type, unspecified body region (HCC) 03/19/2024 Orders Only [facility] [address] [place] [address] Nanda Rausch RN B-cell lymphoma, unspecified B-cell lymphoma type, unspecified body region (HCC) 03/16/2024 2:20 PM BEAUTY DIRECTOR - 03/16/2024 11:59 PM BEAUTY DIRECTOR Hospital Encounter [facility] [address] [place] [address] Shreyas Phillips MD Discharge Disposition: Home or Self Care 03/16/2024 Travel 03/15/2024 Telephone [facility] [address] [place] [address] Emeli Forrester 03/15/2024 Orders Only [facility] BMT [facility] [address] [place] [address] Shreyas Phillips MD 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 Not very hard 11/20/2022 [facility] [place] of Occupat ional Health - Occupational Stress [...] place to sleep or slept in a jail (including now)? No 11/20/2022 Sex and Gender Information Value Date Recorded Sex Assigned at Not on file Gender Identity Female 08/19/2023 1:35 PM CDT Sexual Orientation Not on file Last Filed Vital Signs Vital Sign Reading Time Taken Comments Blood Pressure 140/83 04/26/2024 8:50 AM BEAUTY DIRECTOR Pulse 68 04/26/2024 8:50 AM BEAUTY DIRECTOR Temperature 36.6 C (97.8 F) 04/26/2024 8:31 AM BEAUTY DIRECTOR Respiratory Rate 12 04/26/2024 8:50 AM BEAUTY DIRECTOR Oxygen Saturation 94% 04/26/2024 8:50 AM BEAUTY DIRECTOR Inhaled Oxygen Concentration - - Weight 62.6 kg (138 lb) 04/26/2024 6:18 AM BEAUTY DIRECTOR Height 163.8 cm (5' 4.5 ) 04/26/2024 6:18 AM BEAUTY DIRECTOR Body Mass Index 23.32 04/26/2024 6:18 AM BEAUTY DIRECTOR Plan of Treatment Upcoming Encounters Date Type Department Care Team (Late st Contact Info) Description 06/15/2024 11:40 AM CDT Appointment [facility] [address] [place] [address] Shreyas Phillips MD [address] [place] [address] Health Maintenance Due Date Last [...] MEDICARE AWV CALENDAR YEAR 2024 DIABETES-SERUM CREATININE 05/28/20252024, 03/16/2024, 12/21/2023, Additional history exists PNEUMOCOCCAL VACCINE 50+ Completed 01/21/2022, 03/2014 HEPATITIS C SCREENING Completed 07/16/2022 , 07/13/2022, 07/13/2022 HEPATITIS B VACCINE Aged Out No longe r eligible based on patient's age to complete this topic HIB VACCINE Aged Out No longer eligi ble based on patient's age to complete this topic HPV VACCINE Aged Out No longer eligi ble based on patient's age to complete this topic MENINGOCOCCAL (Group B) VACCINE SHARED DECISION-MAKING Aged Out No longer eligible based on patient's age to complete this topic MENINGOCOCCAL GROUPS A/C/Y/W VACCINE Aged Out No longer eligible based on patient's age to complete this topic Medical Devices Implanted Type Area Records Management Analyst Device Identifier Shelf Expiration Date Model / Serial / Lot Port Implinfn Powerport Clrvu Argd Kika Implanted:Qty: 1 on 07/15/2022 at [facility] Right: Chest [employer] [facility] 11/26/2023 [id number] / / [id number] Description:RIJ by Milena Spivey inton Procedures Procedure Name Priority Date/Time Associated Diagnosis Comments CT CHEST ABDOMEN PELVIS W CONT Routine 05/28/2024 11:38 AM BEAUTY DIRECTOR History of non-Hodgkin's lymphoma CREATININE - POCT INTERFACED Routine 05/28/2024 11:26 AM BEAUTY DIRECTOR IR CENTRAL LINE REMOVAL Routine 04/26/2024 8:32 AM BEAUTY DIRECTOR B-cell lymphoma, unspecified B-cell lymphoma type, unspecified body region (HCC) GLUCOSE - POINT OF CARE Routine 04/26/2024 6:51 AM BEAUTY DIRECTOR PT-INR [facility] Routine 04/26/2024 6:47 AM BEAUTY DIRECTOR Preop testing LDH BLOOD STAT 03/16/2024 2:26 PM BEAUTY DIRECTOR 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) CBC W AUTO DIFFERENTIAL STAT 03/16/2024 2:26 PM BEAUTY DIRECTOR 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) COMPREHENSIVE METABOLIC PANEL STAT 03/16/2024 2:26 PM BEAUTY DIRECTOR 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) HEMOGLOBIN A1C Routine 02/03/2023 11:03 AM BEAUTY DIRECTOR Bilateral foot pain HEPATITIS C RNA QUANTITATIVE STAT 07/16/2022 12:15 PM CDT Non-Hodgkin's lymphoma, unspecified body region, unspecified non-Hodgkin lymphoma type (HCC) High risk for chemotherapy-induced infectious complication from Last 3 Months or Most Recently Relevant to Health Maintenance Results * CT Chest Abdomen Pelvis W Cont (05/28/2024 11:38 AM BEAUTY DIRECTOR) Anatomical Region Laterality Modality Chest, Abdomen, Pelvis Computed Tomography 05/28/2024 1:52 PM BEAUTY DIRECTOR Impressions 05/28/2024 4:28 PM BEAUTY DIRECTOR Impression: 1.No evidence of lymphadenopathy in the chest, abdomen, and pelvis. 2.Redemonstrated are multiple hepatic and renal cysts which may be suggestive of polycystic kidney-liver disease. Report was dictated by Jose Lagos MD, (Integrated VIR resident). > Dictated by Jose Lagos MD (Investigator Utility Bill Complaints) 05/28/2024 1:52 PM I, Nakul Bridges MD have personally reviewed and interpreted this examination/study. > Interpreting Provider: Nakul Bridges MD on 05/28/2024 4:28 PM Narrative 05/28/2024 4:28 PM BEAUTY DIRECTOR PROCEDURE: CT CHEST ABDOMEN PELVIS W CONT, DATE/TIME OF EXAM: 05/28/2024 11:39 AM, LOCATION [facility] INDICATION: Z85.72: History of non-Hodgkin's lymphoma ADDITIONAL [...] DATE/TIME OF EXAM: 05/28/2024 11:39 AM, LOCATION [facility] INDICATION: Z85.72: History of non-Hodgkin's lymphoma ADDITIONAL [...] resident). > Dictated by Jose Lagos MD (Investigator Utility Bill Complaints) 05/28/2024 1:52 PM I, Nakul Bridges MD have personally reviewed and interpreted this examination/study. > Interpreting Provider: Nakul Bridges MD on 05/28/2024 4:28 PM [address]reyas Phillips MD CT ORDERABLES * CREATININE - POCT INTERFACED (05/28/2024 11:26 AM BEAUTY DIRECTOR) Creatinine POCT 0.72 0.30 - 1.30 mg/dL 05/28/2024 11:30 AM BEAUTY DIRECTOR [facility] eGFR >90 >=90 mL/min/1.7 3 m2 05/28/2024 11:30 AM BEAUTY DIRECTOR [facility] Blood BLOOD SPECIMEN / Unknown 05/28/2024 11:26 AM BEAUTY DIRECTOR 05/28/2024 11:30 AM BEAUTY DIRECTOR Shreyas Phillips MD LAB - POINT OF CARE ORDERABLES [address] [id number] [place] [address], [facility] [phone] * IR Central Line Removal (04/26/2024 8:32 AM BEAUTY DIRECTOR) Anatomical Region Laterality Modality X-Ray Angiograph y 04/26/2024 3:21 PM BEAUTY DIRECTOR Impressions 05/07/2024 8:15 AM BEAUTY DIRECTOR Impression: Successful removal of a right internal jugular approach since lumen 8 [facility] chest port under fluoroscopic guidance. Note: Keep the dressing clean and dry for 5 days. I, BIJAL Elizalde, was present and performed/supervised the entire procedure. > Dictated by Aguila Pritchett (Investigator Utility Bill Complaints) 04/26/2024 3:21 PM I, Valeria Hernandez MD have personally reviewed and interpreted this examination/study. > Interpreting Provider: Valeria Hernandez MD on 05/07/2024 8:15 AM Narrative 05/07/2024 8:15 AM BEAUTY DIRECTOR PROCEDURE: IR CENTRAL LINE REMOVAL DATE/TIME OF EXAM: 04/26/2024 8:33 AM CLINICAL INFORMATION: History: This is a 64-year-old -[place] female with a history of lymphoma who previously had a chest port placed for chemotherapy administration. She has completed chemotherapy and remains remission and therefore presents for chest port removal Operators: BIJAL Cartagena Anesthesia: 1.Local anesthesia - 10 mL of 1% Lidocaine 2.Intravenous Anxiolysis- Versed 1 mg and Fentanyl 50 mcg Procedure: Removal of a right internal jugular approach [address] [facility] chest port under fluoroscopic guidance. Fluoroscopic time: 0.1 minutes Procedure details: The procedure, risks, and possible complications were explained to the patient in detail, and informed consent was obtained. The patient was placed supine on the angiography table. The right neck and upper chest were prepped and draped in the usual sterile manner. A public relations director radiograph of the chest was obtained, which [...] CLINICAL INFORMATION: History: This is a 64-year-old -[place] female with a history of lymphoma who previously had a chest port placed for chemotherapy administration. She has completed chemotherapy andremains remission and therefore presents for chest port removal Operators: BIJAL Cartagena Anesthesia: 1.Local anesthesia - 10 mL of 1% Lidocaine 2.Intravenous Anxiolysis- Versed 1 mg and Fentanyl 50 mcg Procedure: Removal of a right internal jugular approach [address] [facility] chest port under fluoroscopic guidance. Fluoroscopic time: 0.1 minutes Procedure details: The procedure, risks, and possible complications were explained to the patient in detail, and informed consent was obtained. The patient was placed supine on the angiography table. The right neck and upper chestwere prepped and draped in the usual sterile manner. A public relations director radiograph ofthe chest was obtained, which showed [...] the procedure well [facility]. There were no immediate complicationsassociated with the procedure. Impression: Successful removal of a right internal jugular approachsince lumen 8 [facility] chest port under fluoroscopic guidance. Note: Keep the dressing clean and dry for 5 days. IDr. Francisca PA, was present and performed/supervised the entire procedure. > Dictated by Aguila Pritchett (Investigator Utility Bill Complaints) 04/26/2024 3:21 PM IValeria MD have personally reviewed and interpreted this examination/study. > Interpreting Provider: Valeria Hernandez MD on 05/07/2024 8:15 AM Shreyas Phillips MD IR ORDERABLES * GLUCOSE - POINT OF CARE (04/26/2024 6:51 AM BEAUTY DIRECTOR) Glucose WB/POC 92 70 - 99 mg/dL 04/26/2024 6:52 AM [facility] Specimen Type Venous 04/26/2024 6:52 AM [facility] Blood BLOOD SPECIMEN / Unknown 04/26/2024 6:51 AM BEAUTY DIRECTOR 04/26/2024 6:52 AM BEAUTY DIRECTOR Shreyas Phillips MD LAB - POINT OF CARE ORDERABLES Performing Organization Address [facility] Co de Phone Number [address] [address], [facility] [phone] * PT-INR [facility] (04/26/2024 6:47 AM BEAUTY DIRECTOR) PT 13.2 12.1 - 14.8 Seconds 04/26/2024 7:20 AM [facility] INR 1.0 See Comment 04/26/2024 7:20 AM [facility] Comment:The suggested therap eutic range for standard coumadin (warfarin) therapy is an INR of 2.0-3.0. For high-risk patients (Mechanical Mitral Valve Prosthesis, etc.), the suggested prophylactic therapeutic range is an INR of 2.5-3.5. Blood BLOOD SPECIMEN / Unknown Venipuncture / Unknown 04/26/2024 6:47 AM BEAUTY DIRECTOR 04/26/2024 6:51 AM BEAUTY DIRECTOR Tyson Sandhu MD LAB - COAGULATION OR DERABLES Performing Organization Address City/[facility]/ZIP Co de Phone Number [address] [address] [phone] * (ABNORMAL) CBC W AUTO DIFFERENTIAL (03/16/2024 2:26 PM BEAUTY DIRECTOR) [facility] WBC 5.4 4.0 - 10.7 x10E9/L 03/17/2024 2:57 AM [facility] RBC Count 4.04 3.90 - 5.20 x10E12/L 03/17/2024 2:57 AM [facility] Hemoglobin 11.4(L) 11.9 - 15.8 g/dL 03/17/2024 2:57 AM [facility] Hematocrit 37.2 34.8 - 46.1 % 03/17/2024 2:57 AM [facility] MCV 92.1 80.0 - 98.0 fL 03/17/2024 2:57 AM [facility] MCH 28.2 26.7 - 33.6 pg 03/17/2024 2:57 AM [facility] MCHC 30.6(L) 31.7 - 36.3 g/dL 03/17/2024 2:57 AM [facility] RDW-CV 14.7 11.3 - 14.8 % 03/17/2024 2:57 AM [facility] Platelet Count 184 150 - 420 x10E9/L 03/17/2024 2:57 AM [facility] MPV 9.5 7.8 - 11.4 fL 03/17/2024 2:57 AM [facility] Preliminary Absolute Neutrophil 3.75 1.60 - 7.50 x10E9/L 03/17/2024 2:57 AM [facility] Neutrophil % 69.9 41.0 - 74.0 % 03/17/2024 2:57 AM [facility] Lymphocyte % 18.4 17.0 - 47.0 % 03/17/2024 2:57 AM [facility] Monocyte % 8.9 3.0 - 11.0 % 03/17/2024 2:57 AM [facility] Eosinophil % 2.0 0.0 - 7.0 % 03/17/2024 2:57 AM [facility] Basophil % 0.4 0.0 - 1.6 % 03/17/2024 2:57 AM [facility] Immature Granulocytes % 0.4 0.0 - 1.0 % 03/17/2024 2:57 AM [facility] Neutrophil Absolute 3.75 1.60 - 7.50 x10E9/L 03/17/2024 2:57 AM [facility] Lymphocyte Absolute 0.99(L) 1.00 - 4.40 x10E9/L 03/17/2024 2:57 AM [facility] Monocyte Absolute 0.48 0.15 - 1.00 x10E9/L 03/17/2024 2:57 AM [facility] Eosinophil Absolute 0.11 0.00 - 0.60 x10E9/L 03/17/2024 2:57 AM [facility] Basophil Absolute 0.02 0.00 - 0.13 x10E9/L 03/17/2024 2:57 AM [facility] Blood BLOOD SPECIMEN / Unknown Venipuncture / Unknown 03/16/2024 2:26 PM BEAUTY DIRECTOR 03/17/2024 2:52 AM [facility] Shreyas Phillips MD LAB - HEMATOLOGY ORD ERABLES Performing Organization Address City/State/[facility] Co de Phone Number [facility] [address] [place] [phone], [facility] [phone] * (ABNORMAL) COMPREHENSIVE METABOLIC PANEL (03/16/2024 2:26 PM BEAUTY DIRECTOR) BUN 18 7 - 26 mg/dL 03/17/2024 3:20 AM [facility] Creatinine 0.86 0.56 - 0.96 mg/dL 03/17/2024 3:20 AM [facility] Sodium 141 136 - 145 mmol/L 03/17/2024 3:20 AM [facility] Potassium 3.9 3.5 - 4.5 mmol/L 03/17/2024 3:20 AM [facility] Chloride 108(H) 98 - 107 mmol/L 03/17/2024 3:20 AM [facility] CO2 26 22 - 29 mmol/L 03/17/2024 3:20 AM [facility] Glucose 97 70 - 99 mg/dL 03/17/2024 3:20 AM [facility] Calcium 9.6 8.4 - 10.2 mg/dL 03/17/2024 3:20 AM [facility] Protein Total 6.6 6.0 - 8.3 g/dL 03/17/2024 3:20 AM [facility] Albumin 4.3 3.4 - 5.0 g/dL 03/17/2024 3:20 AM [facility] Bilirubin Total 0.2 0.2 - 1.2 mg/dL 03/17/2024 3:20 AM [facility] Alkaline Phosphatase 57 40 - 150 U/L 03/17/2024 3:20 AM [facility] ALT 33 5 - 55 U/L 03/17/2024 3:20 AM [facility] AST 21 5 - 34 U/L 03/17/2024 3:20 AM [facility] Anion Gap 7 6 - 16 03/17/2024 3:20 AM [facility] BUN/Creatinine Ratio 21 7 - 23 03/17/2024 3:20 AM [facility] Osmolality Calculated 294 275 - 295 mOsm/kg 03/17/2024 3:20 AM [facility] Albumin/Globulin Ratio 1.9 1.1 - 2.3 03/17/2024 3:20 AM [facility] eGFR by CKD-EPI 75(L) >=90 mL/min/1.7 3 m2 03/17/2024 3:20 AM [facility] Blood BLOOD SPECIMEN / Unknown Venipuncture / Unknown 03/16/2024 2:26 PM BEAUTY DIRECTOR 03/17/2024 2:52 AM [facility] Shreyas Phillips MD LAB - CHEMISTRY SILVINO Tolbert Organization Address City/State/ZIP Co de Phone Number [address] [address], [facility] [phone] * LDH BLOOD (03/16/2024 2:26 PM BEAUTY DIRECTOR) LDH Total 196 125 - 243 Units/L 03/17/2024 3:20 AM [facility] Blood BLOOD SPECIMEN / Unknown Venipuncture / Unknown 03/16/2024 2:26 PM BEAUTY DIRECTOR 03/17/2024 2:52 AM BEAUTY DIRECTOR Shreyas Phillips MD LAB - CHEMISTRY SILVINO LENZ Performing Organization Address City/[facility]/ZIP Co de Phone Number [facility] [address] [place] [phone], [facility] [phone] * HEMOGLOBIN A1C (02/03/2023 11:03 AM BEAUTY DIRECTOR) Hemoglobin A1c 5.4 <=5.6 % 02/03/2023 3:39 PM [facility] Estimated Average Glucose 108 mg/dL 02/03/2023 3:39 PM [facility] Comment: HbA1c Interpretation: Normal : < 5.7% Pre-diabetes: 5.7-6.4% Diabetes: Equal to or greater than 6.5% Test results diagnostic of diabetes should be repeated for confirmation. Treatment target values recommended by ADA and other clinical organizations should be used to evaluate metabolic control in patients. Reference: [place] [employer], Standards of Care in Diabetes -2020 In patients 70 years and older consider HbA1c target range of 7.0-7.5% (Reference: Vishal Davis et al. JAMDA. 2012) The Sebia assay for the measurement of HbA1c is a National Glycohemoglobin Standardization Program (NGSP) certified method. Blood BLOOD SPECIMEN / Unknown Lab Venipuncture / Unknown 02/03/2023 11:03 AM BEAUTY DIRECTOR 02/03/2023 11:29 AM BEAUTY DIRECTOR Mohini Sky MD LAB - CHEMISTRY SILVINO LENZ Performing Organization Address City/[facility]/ZIP Co de Phone Number [facility] [address] [place] [address], [facility] [phone] * HEPATITIS C RNA QUANTITATIVE (07/16/2022 12:15 PM CDT) Pathologist [facility] Hepatitis C RNA PCR, Interp Not detected Not detected 07/19/2022 1:08 PM CDT [facility] MICROBIOLOGY Blood BLOOD SPECIMEN / Unknown Lab Venipuncture / Unknown 07/16/2022 12:15 PM CDT 07/16/2022 12:25 PM CDT [facility] MICROBIOLOGY - 07/19/2022 1:08 PM CDT The Hepatitis C viral (HCV) RNA analysis utilized a serum sample, real-time reverse equipment validation specialist PCR, and is reported as Not Detected, [...] the isolation of HCV RNA with reverse equipment validation specialist of genomic HCV RNA followed by real-time PCR in the presence of an unrelated RNA internal control. The internal control ensures that RNA is isolated, and that no general significant inhibitors of the RT-PCR process are present. The analysis was performed using a U.S. FDA approved test methodology. Shreyas Phillips MD LAB - CHEMISTRY SILVINO LENZ [facility] Organization Address City/State/ZIP Co de Phone Number [facility] MICROBIOLOGY [address] [place], [place] [address], [facility] [phone] from Last 3 Months or Most Recently [...] 3:45 PM 10/19/2022 5:53 PM Care Teams Template Storage Clerk Relationship Specialty Start Date End Date Agustin Flor MD [address] [place] [address] PCP - General General Medicine 06/28/22 [place] [address] [place] [phone] Physician Hematology and Oncology 03/23/23 Bebe Hernandez, PA-C [address] [place] [address] Physician In Processing Instructor Physician In Processing Instructor 03/23/23 Nanda Rausch, RN Registered Nurse 03/23/23
--- OUTSIDE RECORDS SUMMARY | 2024-06-11 16:50 | XMS_ITS | Patient Health Summary ---
Author Organization [facility] Address [address] [place] [address] Care Team Providers Care Chainstitch Felled Seam Operator Name Role Phone Agustin Flor MD Primary Care Provider [phone] Shreyas Phillips MD Unavailable Bebe Hernandez PA-C Unavailable [phone] Nanda Rausch RN Unavailable Unavailable Note from [facility],non-owned Affiliates and Associated Physician Practices is amultiple site organization consisting of ambulatory clinics and hospital sitesin [place], [place], [place] and [place]. This disclosure is being madepursuant to the Care Everywhere program and may not contain all information available regarding this patient. Last updated 17.[facility] Allergies * Aspirin(Swelling) * Cefdinir(Itching) * Chlorthalidone(Urticaria) [...] 0.25 ML IM(Given 01/25/2020, 01/17/2019) * INFLUENZA [id number], HISTORIC VACCINE(Given 01/21/2022) * INFLUENZA VACCINE(Given 12/26/2016, [...] care, and heating? Not very hard 11/20/2022 [facility] - Occup[facility] Stress [...] place to sleep or slept in a mcc (including now)? No 11/20/2022 Sex and Gender Information Value Date Recorded Sex Assigned at Not on file Gender Identity Female 08/19/2023 1:35 PM CDT Sexual Orientation Not on file Last Filed Vital Signs Vital Sign Reading Time Taken Comments Blood Pressure 140/83 04/26/2024 8:50 AM LEAD SALES CONSULTANT Pulse 68 04/26/2024 8:50 AM LEAD SALES CONSULTANT Temperature 36.6 C (97.8 F) 04/26/2024 8:31 AM LEAD SALES CONSULTANT Respiratory Rate 12 04/26/2024 8:50 AM LEAD SALES CONSULTANT Oxygen Saturation 94% 04/26/2024 8:50 AM LEAD SALES CONSULTANT Inhaled Oxygen Concentration - - Weight 62.6 kg (138 lb) 04/26/2024 6:18 AM LEAD SALES CONSULTANT Height 163.8 cm (5' 4.5 ) 04/26/2024 6:18 AM LEAD SALES CONSULTANT Body Mass Index 23.32 04/26/2024 6:18 AM LEAD SALES CONSULTANT Medical Devices Implanted Type Area Programming Equipment Operator Device Identifier Shelf Expiration Date Model / Serial / Lot Port Implinfn Powerport Clrvu Argd Kika Implanted:Qty: 1 on 07/15/2022 at [facility] Right: Chest [employer] 11/26/2023 [id number] / / [id number] Description:RIJ by Milena Spivey inton Procedures * [...] and BCL2 and/or BCL6 rearrangements (HCC) * GA FNA BX W US GDN 1ST LES(Performed 02/15/2024) Performed for Thyroid nodule * FINE NEEDLE ASPIRATION (STL)(Performed 02/15/2024) Performed for Thyroid nodule * PATHOLOGY/CYTOLOGY REPORT ORDER(Performed 02/15/2024) * GA FNA BX W US GDN 1ST LES(Performed [...] Performed for History of non-Hodgkin's lymphoma * GA FNA BX W US GDN 1ST LES(Performed [...] Abdomen Pelvis W Cont (05/28/2024 11:38 AM LEAD SALES CONSULTANT) Only the most recent of2 resultswithin the time period is included. Anatomical Region Laterality Modality Chest, Abdomen, Pelvis Computed Tomography 05/28/2024 1:52 PM LEAD SALES CONSULTANT Impressions 05/28/2024 4:28 PM LEAD SALES CONSULTANT Impression: 1.No evidence of lymphadenopathy in the chest, abdomen, and pelvis. 2.Redemonstrated are multiple hepatic and renal cysts which may be suggestive of polycystic kidney-liver disease. Report was dictated by Jose Lagos MD, (Integrated VIR resident). > Dictated by Jose Lagos MD (Towboat Engineer) 05/28/2024 1:52 PM I, Nakul Bridges MD have personally reviewed and interpreted this examination/study. > Interpreting Provider: Nakul Bridges MD on 05/28/2024 4:28 PM Narrative 05/28/2024 4:28 PM LEAD SALES CONSULTANT PROCEDURE: CT CHEST ABDOMEN PELVIS W CONT, DATE/TIME OF EXAM: 05/28/2024 11:39 AM, LOCATION [facility] INDICATION: Z85.72: History of non-Hodgkin's lymphoma ADDITIONAL [...] DATE/TIME OF EXAM: 05/28/2024 11:39 AM, LOCATION [facility] INDICATION: Z85.72: History of non-Hodgkin's lymphoma ADDITIONAL [...] resident). > Dictated by Jose Lagos MD (Towboat Engineer) 05/28/2024 1:52 PM INakul MD have personally reviewed and interpreted this examination/study. > Interpreting Provider: Nakul Bridges MD on 05/28/2024 4:28 PM [address]as Phillips MD CT ORDERABLES * CREATININE - POCT INTERFACED (05/28/2024 11:26 AM LEAD SALES CONSULTANT) Only the most recent of2 resultswithin the time period is included. Creatinine POCT 0.72 0.30 - 1.30 mg/dL 05/28/2024 11:30 AM LEAD SALES CONSULTANT [facility] eGFR >90 >=90 mL/min/1.7 3 m2 05/28/2024 11:30 AM LEAD SALES CONSULTANT [facility] Blood BLOOD SPECIMEN / Unknown 05/28/2024 11:26 AM LEAD SALES CONSULTANT 05/28/2024 11:30 AM LEAD SALES CONSULTANT Shreyas Phillips MD LAB - POINT OF CARE ORDERABLES Performing Organization Address City/State/[facility] Co de Phone Number [facility] [address] [place] [address], [facility] [phone] * IR Central Line Removal (04/26/2024 8:32 AM LEAD SALES CONSULTANT) Anatomical Region Laterality Modality X-Ray Angiograph y 04/26/2024 3:21 PM LEAD SALES CONSULTANT Impressions 05/07/2024 8:15 AM LEAD SALES CONSULTANT Impression: Successful removal of a right internal jugular approach since lumen 8 Ugandan chest port under fluoroscopic guidance. Note: Keep the dressing clean and dry for 5 days. I, BIJAL Elizalde, was present and performed/supervised the entire procedure. > Dictated by Aguila Pritchett (Towboat Engineer) 04/26/2024 3:21 PM IValeria MD have personally reviewed and interpreted this examination/study. > Interpreting Provider: Valeria Hernandez MD on 05/07/2024 8:15 AM Narrative 05/07/2024 8:15 AM LEAD SALES CONSULTANT PROCEDURE: IR CENTRAL LINE REMOVAL DATE/TIME OF EXAM: 04/26/2024 8:33 AM CLINICAL INFORMATION: History: This is a 64-year-old -[place]ish female with a history of lymphoma who previously had a chest port placed for chemotherapy administration. She has completed chemotherapy and remains remission and therefore presents for chest port removal Operators: BIJAL Cartagena Anesthesia: 1.Local anesthesia - 10 mL of 1% Lidocaine 2.Intravenous Anxiolysis- Versed 1 mg and Fentanyl 50 mcg Procedure: Removal of a right internal jugular approach 1 lumen 8 Ugandan chest port under fluoroscopic guidance. Fluoroscopic time: 0.1 minutes Procedure details: The procedure, risks, and possible complications were explained to the patient in detail, and informed consent was obtained. The patient was placed supine on the angiography table. The right neck and upper chest were prepped and draped in the usual sterile manner. A reporting specialist radiograph of the chest was obtained, which [...] CLINICAL INFORMATION: History: This is a 64-year-old -Scottish female with a history of lymphoma who previously had a chest port placed for chemotherapy administration. She has completed chemotherapy andremains remission and therefore presents for chest port removal Operators: BIJAL Cartagena Anesthesia: 1.Local anesthesia - 10 mL of 1% Lidocaine 2.Intravenous Anxiolysis- Versed 1 mg and Fentanyl 50 mcg Procedure: Removal of a right internal jugular approach 1 lumen 8 Ugandan chest port under fluoroscopic guidance. Fluoroscopic time: 0.1 minutes Procedure details: The procedure, risks, and possible complications were explained to the patient in detail, and informed consent was obtained. The patient was placed supine on the angiography table. The right neck and upper chestwere prepped and draped in the usual sterile manner. A reporting specialist radiograph ofthe chest was obtained, which showed [...] the procedure well [facility]. There were no immediate complicationsassociated with the procedure. Impression: Successful removal of a right internal jugular approachsince lumen 8 Ugandan chest port under fluoroscopic guidance. Note: Keep the dressing clean and dry for 5 days. I, BIJAL Elizalde, was present and performed/supervised the entire procedure. > Dictated by Aguila Pritchett (Towboat Engineer) 04/26/2024 3:21 PM IValeria MD have personally reviewed and interpreted this examination/study. > Interpreting Provider: Valeria Hernandez MD on 05/07/2024 8:15 AM Shreyas Phillips MD IR ORDERABLES * GLUCOSE - POINT OF CARE (04/26/2024 6:51 AM LEAD SALES CONSULTANT) Only the most recent of170 resultswithin the time period is included. Glucose WB/POC 92 70 - 99 mg/dL 04/26/2024 6:52 AM LEAD SALES CONSULTANT [facility] Specimen Type Venous 04/26/2024 6:52 AM LEAD SALES CONSULTANT [facility] Blood BLOOD SPECIMEN / Unknown 04/26/2024 6:51 AM LEAD SALES CONSULTANT 04/26/2024 6:52 AM LEAD SALES CONSULTANT Shreyas Phillips MD LAB - POINT OF CARE ORDERABLES Performing Organization Address [facility] Co de Phone Number [address] [address], [facility] [phone] * PT-INR [facility] (04/26/2024 6:47 AM LEAD SALES CONSULTANT) Only the most recent of3 resultswithin the time period is included. PT 13.2 12.1 - 14.8 Seconds 04/26/2024 7:20 AM [facility] INR 1.0 See Comment 04/26/2024 7:20 AM [facility] Comment:The suggested therap eutic range for standard coumadin (warfarin) therapy is an INR of 2.0-3.0. For high-risk patients (Mechanical Mitral Valve Prosthesis, etc.), the suggested prophylactic therapeutic range is an INR of 2.5-3.5. Blood BLOOD SPECIMEN / Unknown Venipuncture / Unknown 04/26/2024 6:47 AM LEAD SALES CONSULTANT 04/26/2024 6:51 AM LEAD SALES CONSULTANT Tyson Sandhu MD LAB - COAGULATION OR DERABLES Performing Organization Address [facility] Co de Phone Number [address] [address], [facility] [phone] * (ABNORMAL) CBC W AUTO DIFFERENTIAL (03/16/2024 2:26 PM LEAD SALES CONSULTANT) Only the most recent of71 resultswithin the time period is included. WBC 5.4 4.0 - 10.7 x10E9/L 03/17/2024 2:57 AM [facility] RBC Count 4.04 3.90 - 5.20 x10E12/L 03/17/2024 2:57 AM [facility] Hemoglobin 11.4(L) 11.9 - 15.8 g/dL 03/17/2024 2:57 AM [facility] Hematocrit 37.2 34.8 - 46.1 % 03/17/2024 2:57 AM [facility] MCV 92.1 80.0 - 98.0 fL 03/17/2024 2:57 AM [facility] MCH 28.2 26.7 - 33.6 pg 03/17/2024 2:57 AM [facility] MCHC 30.6(L) 31.7 - 36.3 g/dL 03/17/2024 2:57 AM [facility] RDW-CV 14.7 11.3 - 14.8 % 03/17/2024 2:57 AM [facility] Platelet Count 184 150 - 420 x10E9/L 03/17/2024 2:57 AM [facility] MPV 9.5 7.8 - 11.4 fL 03/17/2024 2:57 AM [facility] Preliminary Absolute Neutrophil 3.75 1.60 - 7.50 x10E9/L 03/17/2024 2:57 AM [facility] Neutrophil % 69.9 41.0 - 74.0 % 03/17/2024 2:57 AM [facility] Lymphocyte % 18.4 17.0 - 47.0 % 03/17/2024 2:57 AM [facility] Monocyte % 8.9 3.0 - 11.0 % 03/17/2024 2:57 AM [facility] Eosinophil % 2.0 0.0 - 7.0 % 03/17/2024 2:57 AM [facility] Basophil % 0.4 0.0 - 1.6 % 03/17/2024 2:57 AM [facility] Immature Granulocytes % 0.4 0.0 - 1.0 % 03/17/2024 2:57 AM [facility] Neutrophil Absolute 3.75 1.60 - 7.50 x10E9/L 03/17/2024 2:57 AM [facility] Lymphocyte Absolute 0.99(L) 1.00 - 4.40 x10E9/L 03/17/2024 2:57 AM [facility] Monocyte Absolute 0.48 0.15 - 1.00 x10E9/L 03/17/2024 2:57 AM [facility] Eosinophil Absolute 0.11 0.00 - 0.60 x10E9/L 03/17/2024 2:57 AM [facility] Basophil Absolute 0.02 0.00 - 0.13 x10E9/L 03/17/2024 2:57 AM [facility] Blood BLOOD SPECIMEN / Unknown Venipuncture / Unknown 03/16/2024 2:26 PM LEAD SALES CONSULTANT 03/17/2024 2:52 AM LEAD SALES CONSULTANT Shreyas Phillips MD LAB - HEMATOLOGY ORD ERABLES [facility] [address] [place] [address], [facility] [phone] * (ABNORMAL) COMPREHENSIVE METABOLIC PANEL (03/16/2024 2:26 PM LEAD SALES CONSULTANT) Only the most recent of72 resultswithin the time period is included. BUN 18 7 - 26 mg/dL 03/17/2024 3:20 AM [facility] Creatinine 0.86 0.56 - 0.96 mg/dL 03/17/2024 3:20 AM [facility] Sodium 141 136 - 145 mmol/L 03/17/2024 3:20 AM [facility] Potassium 3.9 3.5 - 4.5 mmol/L 03/17/2024 3:20 AM [facility] Chloride 108(H) 98 - 107 mmol/L 03/17/2024 3:20 AM [facility] CO2 26 22 - 29 mmol/L 03/17/2024 3:20 AM [facility] Glucose 97 70 - 99 mg/dL 03/17/2024 3:20 AM [facility] Calcium 9.6 8.4 - 10.2 mg/dL 03/17/2024 3:20 AM [facility] Protein Total 6.6 6.0 - 8.3 g/dL 03/17/2024 3:20 AM [facility] Albumin 4.3 3.4 - 5.0 g/dL 03/17/2024 3:20 AM [facility] Bilirubin Total 0.2 0.2 - 1.2 mg/dL 03/17/2024 3:20 AM [facility] Alkaline Phosphatase 57 40 - 150 U/L 03/17/2024 3:20 AM [facility] ALT 33 5 - 55 U/L 03/17/2024 3:20 AM [facility] AST 21 5 - 34 U/L 03/17/2024 3:20 AM [facility] Anion Gap 7 6 - 16 03/17/2024 3:20 AM [facility] BUN/Creatinine Ratio 21 7 - 23 03/17/2024 3:20 AM [facility] Osmolality Calculated 294 275 - 295 mOsm/kg 03/17/2024 3:20 AM [facility] Albumin/Globulin Ratio 1.9 1.1 - 2.3 03/17/2024 3:20 AM [facility] eGFR by CKD-EPI 75(L) >=90 mL/min/1.7 3 m2 03/17/2024 3:20 AM [facility] Blood BLOOD SPECIMEN / Unknown Venipuncture / Unknown 03/16/2024 2:26 PM LEAD SALES CONSULTANT 03/17/2024 2:52 AM LEAD SALES CONSULTANT Shreyas Phillips MD LAB - CHEMISTRY [facility] [address] [address], [place] [phone] * LDH BLOOD (03/16/2024 2:26 PM LEAD SALES CONSULTANT) Only the most recent of56 resultswithin the time period is included. LDH Total 196 125 - 243 Units/L 03/17/2024 3:20 AM [facility] Blood BLOOD SPECIMEN / Unknown Venipuncture / Unknown 03/16/2024 2:26 PM LEAD SALES CONSULTANT 03/17/2024 2:52 AM LEAD SALES CONSULTANT Shreyas Phillips MD LAB - CHEMISTRY [place] [facility] [address] [address], [place] [phone] * GA FNA BX W US GDN 1ST LES (02/15/2024 11:08 AM LEAD SALES CONSULTANT) Narrative Sorin Bowden APRN-CNP - 02/15/2024 11:08 AM LEAD SALES CONSULTANT Sorin Bowden APRN-CNP 02/15/2024 11:10 AM Procedure [...] FINE NEEDLE ASPIRATION (STL) (02/15/2024 10:48 AM LEAD SALES CONSULTANT) Only the most recent of3 resultswithin the time period is included. Case Report Medical Cytology Report Case: [id number] Authorizing Provider: Sorin Bowden, Collected: 02/15/2024 10:48 AM [facility] - Received: 02/16/2024 07:20 AM ENT Pathologist: Gerald Carlson MD Specimen: Neck Mass, Right TR4 thyroid nodule 03/05/2024 11:13 AM [facility] Specimen Adequacy Adequate cellularity for evaluation. 03/05/2024 11:13 AM [facility] Final Diagnosis Thyroid, right nodule, US-FNA: - Atypia of undetermined significance (TBSRTC category III), nuclear atypia and rare spindle cells 03/05/2024 11:13 AM [facility] Clinical History The patient is a 63 year old female with a TR4 thyroid nodule, s/p two prior FNAs (categories I and III). 03/05/2024 11:13 AM [facility] Gross Description 1 pap stained Thin Prep from 20cc of clear collection fluid 03/05/2024 11:13 AM [facility] Microscopic Description The aspirate shows a good amount of background colloid, as well as scattered macrofollicular bland epithelium. However there are also some small clusters of spindle cells. Comment: Molecular studies, and possibly a serum calcitonin is advised. 03/05/2024 11:13 AM [facility] Addendum 1 Specimen source is Right TR4 thyroid nodule. Neck Mass was entered originally as primary source, but is too general a description. 03/05/2024 11:13 AM [facility] Addendum electronically signed by Tra Cordero on 03/05/2024 at 11:13 AM Pathologist Location at [facility] 03/05/2024 11:13 AM [facility] Disclaimer The performance characteristics of all immunohistochemical and indirect immunofluorescence stains (if any) cited in this report were determined by the Histopathology Laboratory of [facility]. Some of these tests rely on the use of analyte-specific reagents and are subject to specific labeling requirements by the [place] Food and Drug Administration. Such tests were developed by the Histology Laboratory of [facility] and have not been cleared or approved [...] the attending (teaching) pathologist. 03/05/2024 11:13 AM [facility] Embedded Images 03/05/2024 11:13 AM [facility] Pathology/Cytolo gy MASS OF NECK / Unknown Collection / Unknown 02/15/2024 10:48 AM LEAD SALES CONSULTANT 02/16/2024 7:20 AM LEAD SALES CONSULTANT Sorin Bowden COMPUTING TUTOR-HOUSING INSPECTOR LAB - PATH OLOGY/CYTOLOGY ORDERABLES [facility] [address] [place] [address], [facility] [phone] * PATHOLOGY/CYTOLOGY REPORT ORDER (02/15/2024) 02/15/2024 Narrative 02/15/2024 Ordered by an unspecified provider. Scanned Document LAB - PATHOLOGY/CYTO LOGY ORDERABLES * GA FNA BX W US GDN 1ST LES [...] - 5.1 mg/dL 12/21/2023 3:42 PM CDT [facility] Blood BLOOD SPECIMEN / Unknown Port / Unknown 12/21/2023 3:00 PM CDT 12/21/2023 3:10 PM CDT Shreyas Phillips MD LAB - CHEMISTRY [facility] Organization Address [facility] Co de Phone Number [address] [address], [facility] [phone] * MAGNESIUM BLOOD (12/21/2023 3:00 PM CDT) Only the most recent of77 resultswithin the time period is included. Magnesium 2.1 1.6 - 2.6 mg/dL 12/21/2023 3:42 PM CDT [facility] Blood BLOOD SPECIMEN / Unknown Port / Unknown 12/21/2023 3:00 PM CDT 12/21/2023 3:10 PM CDT Shreyas Phillips MD LAB - CHEMISTRY [facility] Performing Organization Address City/[facility]/ZIP Co de Phone Number [address] [address], [place] [phone] * TSH (12/21/2023 3:00 PM CDT) TSH 0.685 0.350 - 4.940 uIU/mL 12/21/2023 4:00 PM CDT [facility] Blood BLOOD SPECIMEN / Unknown Port / Unknown 12/21/2023 3:00 PM CDT 12/21/2023 3:10 PM CDT Shreyas Phillips MD LAB - CHEMISTRY [facility] Performing Organization Address [facility] Co de Phone Number [address] [address], [place] [phone] * T4 FREE (12/21/2023 3:00 PM CDT) Only the most recent of3 resultswithin the time period is included. T4 Free 1.0 0.7 - 1.5 ng/dL 12/21/2023 4:00 PM CDT [facility] Blood BLOOD SPECIMEN / Unknown Port / Unknown 12/21/2023 3:00 PM CDT 12/21/2023 3:10 PM CDT Shreyas Phillips MD LAB - CHEMISTRY [facility] Performing Organization Address City/[facility]/ZIP Co de Phone Number [address] [address], [place] [phone] * GA FNA BX W US GDN 1ST LES [...] site. Start: 1006 End: 1036 Sorin Bowden COMPUTING TUTOR-HOUSING INSPECTOR PROCEDURE/ MINOR SURGICAL ORDERABLES * US Thyroid [...] evaluation. > Dictated by Chaparro Kim MD, (president consumer electronics company). I, Peter Avalos MD have personally reviewed and interpreted this examination/study. > Interpreting Provider: Peter Avalos MD on 12/06/2023 11:51 AM Narrative 12/06/2023 11:51 AM CDT PROCEDURE: US THYROID, DATE/TIME OF EXAM: 12/06/2023 10:25 AM, LOCATION [facility] INDICATION: E04.1: Thyroid nodule ADDITIONAL CLINICAL INFORMATION: [...] DATE/TIME OF EXAM: 12/06/2023 10:25 AM, LOCATION [facility] INDICATION: E04.1: Thyroid nodule ADDITIONAL CLINICAL INFORMATION: [...] > Dictated by Chaparro Kim MD, MD (president consumer electronics [employer]). IPeter MD have personally reviewed and interpreted [...] fracture. > Dictated by Ezra Angeles DO (president consumer electronics company). I, Az Montoya MD have personally reviewed and interpreted this examination/study. > Interpreting Provider: Az Montoya MD on 10/13/2023 7:13 PM Narrative 10/13/2023 7:13 PM CDT PROCEDURE: XR ANKLE LEFT 3VW OR MORE, DATE/TIME OF EXAM: 10/13/2023 2:03 PM, LOCATION [facility] INDICATION: M79.671: Bilateral foot pain M79.672: Bilateral [...] MORE, DATE/TIME OF EXAM: 42:03 PM, LOCATION [facility] INDICATION: M79.671: Bilateral foot pain M79.672: Bilateral [...] fracture. > Dictated by Ezra Angeles DO (president consumer electronics company). I, Az Montoya MD have personally reviewed [...] ORDERABLES * LIPID PROFILE (06/03/2023 1:20 PM LEAD SALES CONSULTANT) Cholesterol Total 135 <200 mg/dL 06/03/2023 2:03 PM [facility] HDL 49 >40 mg/dL 06/03/2023 2:03 PM [facility] Comment: ATP III Classification of HDL Cholesterol: <40 mg/dL: Considered a major risk factor. >60 mg/dL: Considered a negative risk factor. LDL Calculated 60 <100 mg/dL 06/03/2023 2:03 PM [facility] Comment: ATP III Classification of LDL Cholesterol: <100 mg/dL: Optimal 100 - 129 mg/dL: Near Optimal/Above Optimal 130 - 159 mg/dL: Borderline High 160 - 189 mg/dL: High >190 mg/dL: Very High Triglycerides 131 <150 mg/dL 06/03/2023 2:03 PM LEAD SALES CONSULTANT [facility] Comment: ATP III Classification of Triglycerides: <150 mg/dL: Normal 150 - 199 mg/dL: Borderline High 200 - 400 mg/dL: High >500 mg/dL: Very High Blood BLOOD SPECIMEN / Unknown Venipuncture / Unknown 06/03/2023 1:20 PM LEAD SALES CONSULTANT 06/03/2023 1:36 PM LEAD SALES CONSULTANT Bebe Hernandez PA-C LAB - CHEMISTRY [place] Performing Organization Address City/[facility]/ZIP Co de Phone Number [address] [address], [facility] [phone] * URIC ACID BLOOD (06/03/2023 1:19 PM LEAD SALES CONSULTANT) Only the most recent of51 resultswithin the time period is included. Uric Acid 3.1 2.6 - 6.0 mg/dL 06/03/2023 2:03 PM LEAD SALES CONSULTANT [facility] Blood BLOOD SPECIMEN / Unknown Venipuncture / Unknown 06/03/2023 1:19 PM LEAD SALES CONSULTANT 06/03/2023 1:36 PM LEAD SALES CONSULTANT Shreyas Phillips MD LAB - CHEMISTRY [place] Performing Organization Address City/[facility]/ZIP Co de Phone Number [address] [address], [place] [phone] * PET CT WHOLE BODY (05/27/2023 10:07 AM LEAD SALES CONSULTANT) Only the most recent of4 resultswithin the time period is included. Anatomical Region Laterality Modality Positron Emissio n Tomography (PET) 05/27/2023 8:58 AM LEAD SALES CONSULTANT Impressions 05/27/2023 2:44 PM LEAD SALES CONSULTANT IMPRESSION: 1. Interval development of a 1.7 [...] Score 1. > Dictated by Mikhail Frazier (Towboat Engineer) 05/27/2023 8:58 AM IMagalie DO have personally reviewed and interpreted this examination/study. > Interpreting Provider: Magalie Farmer DO on 05/27/2023 2:44 PM Narrative 05/27/2023 2:44 PM LEAD SALES CONSULTANT PROCEDURE: PET CT WHOLE BODY DATE/TIME OF [...] Score 1. > Dictated by Mikhail Frazier (Towboat Engineer) 05/27/2023 8:58 AM I, Magalie Farmer DO have personally reviewed and interpreted this examination/study. > Interpreting Provider: Magalie Farmer DO on 05/27/2023 2:44 PM Bebe Hernandez PA-C [place] ORDERABLES * GLUCOSE SCREEN - POCT (IP) [facility] (05/27/2023 8:35 AM LEAD SALES CONSULTANT) Only the most recent of4 resultswithin the time period is included. Glucose WB/POC 103 70 - 115 mg/dL [facility] POCT TESTING Blood BLOOD SPECIMEN / Unknown 05/27/2023 8:35 AM LEAD SALES CONSULTANT Bebe Hernandez PA-C LAB - POINT OF CARE ORDERABLES [facility] POCT TESTING [address] [place] [address], [facility] [phone] * HEMOGLOBIN A1C (02/03/2023 11:03 AM LEAD SALES CONSULTANT) Only the most recent of3 resultswithin the time period is included. Hemoglobin A1c 5.4 <=5.6 % 02/03/2023 3:39 PM LEAD SALES CONSULTANT [facility] Estimated Average Glucose 108 mg/dL 02/03/2023 3:39 PM [facility] Comment: HbA1c Interpretation: Normal : < 5.7% Pre-diabetes: 5.7-6.4% Diabetes: Equal to or greater than 6.5% Test results diagnostic of diabetes should be repeated for confirmation. Treatment target values recommended by ADA and other clinical organizations should be used to evaluate metabolic control in patients. Reference: [place] [employer], Standards of Care in Diabetes -2020 In patients 70 years and older consider HbA1c target range of 7.0-7.5% (Reference: Vishal Davis et al. JAMDA. 2012) The Sebia assay for the measurement of HbA1c is a National Glycohemoglobin Standardization Program (NGSP) certified method. Blood BLOOD SPECIMEN / Unknown Lab Venipuncture / Unknown 02/03/2023 11:03 AM LEAD SALES CONSULTANT 02/03/2023 11:29 AM LEAD SALES CONSULTANT Mohini Sky MD LAB - CHEMISTRY ORDE DELFIN Performing Organization Address City/[facility]/ZIP Co de Phone Number [facility] [address] [place] [address], [facility] [phone] * TYPE + SCREEN PANEL (02/03/2023 10:58 AM LEAD SALES CONSULTANT) Only the most recent of23 resultswithin the time period is included. Antibody Screen NEG 11:55 AM LEAD SALES CONSULTANT [facility] BLOOD BANK LAB ABO Rh A POS 02/03/2023 11:55 AM LEAD SALES CONSULTANT [facility] BLOOD BANK LAB Blood Bank BLOOD SPECIMEN / Unknown 02/03/2023 10:58 AM LEAD SALES CONSULTANT 02/03/2023 11:01 AM LEAD SALES CONSULTANT Shreyas Phillips MD LAB - BLOOD BANK ORD JOELLE Performing Organization Address [facility]/ZIP Co de Phone Number [facility] BLOOD BANK LAB [address] [place] [address], [facility] [phone] * XR ANKLE RIGHT 3VW OR MORE (02/03/2023 9:09 AM LEAD SALES CONSULTANT) Anatomical Region Laterality Modality Lower Extremity Radiographic Tamie ging 02/03/2023 9:48 AM LEAD SALES CONSULTANT Impressions 02/03/2023 9:54 AM LEAD SALES CONSULTANT IMPRESSION: Bilateral osteopenia identified. No focal bony lesions or erosions are seen. No significant soft tissue swelling. > Interpreting Provider: Peter Avalos MD on 02/03/2023 9:54 AM Narrative 02/03/2023 9:54 AM LEAD SALES CONSULTANT PROCEDURE: XR ANKLE RIGHT 3VW OR MORE, XR ANKLE LEFT 3VW OR MORE, XR FOOT LEFT WT BEARING 3VW, XR FOOT RIGHT WT BEARING 3VW, DATE/TIME OF EXAM: 02/03/2023 9:09 AM, LOCATION [facility] INDICATION: M79.671: Bilateral foot pain M79.672: Bilateral [...] DATE/TIME OF EXAM: 02/03/2023 9:09 AM, LOCATION [facility] INDICATION: M79.671: Bilateral foot pain M79.672: Bilateral [...] LEFT WT BEARING 3VW (02/03/2023 9:08 AM LEAD SALES CONSULTANT) Anatomical Region Laterality Modality Ankle / Foot Radiographic Tamie ging 02/03/2023 9:48 AM LEAD SALES CONSULTANT Impressions 02/03/2023 9:54 AM LEAD SALES CONSULTANT IMPRESSION: Bilateral osteopenia identified. No focal bony lesions or erosions are seen. No significant soft tissue swelling. > Interpreting Provider: Peter Avalos MD on 02/03/2023 9:54 AM Narrative 02/03/2023 9:54 AM LEAD SALES CONSULTANT PROCEDURE: XR ANKLE RIGHT 3VW OR MORE, XR ANKLE LEFT 3VW OR MORE, XR FOOT LEFT WT BEARING 3VW, XR FOOT RIGHT WT BEARING 3VW, DATE/TIME OF EXAM: 02/03/2023 9:09 AM, LOCATION [facility] INDICATION: M79.671: Bilateral foot pain M79.672: Bilateral [...] DATE/TIME OF EXAM: 02/03/2023 9:09 AM, LOCATION [facility] INDICATION: M79.671: Bilateral foot pain M79.672: Bilateral [...] RIGHT WT BEARING 3VW (02/03/2023 9:08 AM LEAD SALES CONSULTANT) Anatomical Region Laterality Modality Ankle / Foot Radiographic Tamie ging 02/03/2023 9:48 AM LEAD SALES CONSULTANT Impressions 02/03/2023 9:54 AM LEAD SALES CONSULTANT IMPRESSION: Bilateral osteopenia identified. No focal bony lesions or erosions are seen. No significant soft tissue swelling. > Interpreting Provider: Peter Avalos MD on 02/03/2023 9:54 AM Narrative 02/03/2023 9:54 AM LEAD SALES CONSULTANT PROCEDURE: XR ANKLE RIGHT 3VW OR MORE, XR ANKLE LEFT 3VW OR MORE, XR FOOT LEFT WT BEARING 3VW, XR FOOT RIGHT WT BEARING 3VW, DATE/TIME OF EXAM: 02/03/2023 9:09 AM, LOCATION [facility] INDICATION: M79.671: Bilateral foot pain M79.672: Bilateral [...] DATE/TIME OF EXAM: 02/03/2023 9:09 AM, LOCATION [facility] INDICATION: M79.671: Bilateral foot pain M79.672: Bilateral [...] 5 - 13 % 12/31/2022 3:18 PM [facility] Eosinophils % Manual 2 0 - 6 [...] - HEMATOLOGY ORD ERABLES Performing Organization Address City/[facility]/ZIP Co de Phone Number [facility] [address] [place] [address], [facility] [phone] * CARDIAC EKG ORDER (12/29/2022 1:35 PM CDT) Only the most recent of4 resultswithin the time period is included. Narrative 12/29/2022 1:35 PM CDT Ordered by an unspecified provider. Scanned Document CARDIAC SERVICES ORD ERABLES * EKG 12-LEAD (12/28/2022 11:19 AM CDT) Only the most recent of4 resultswithin the time period is included. Ventricular Rate 70 BPM [facility] MUSE Atrial Rate 70 BPM [facility] MUSE P-R Interval 168 ms [facility] MUSE QRS Duration ms 92 ms [facility] MUSE Q-T Interval ms 484 ms [facility] MUSE QTC Calculation (Bezet) 522 ms [facility] MUSE Calculated P Pomeroy 67 degrees SL MUSE Calculated R Pomeroy -27 degrees [facility] MUSE Calculated T P[place] 50 degrees [facility] MUSE Interpretation EKG NORMAL SINUS RHYTHM PROLONGED QT ABNORMAL ECG WHEN COMPARED WITH ECG OF 17-DEC-2022 12:42, CRITERIA FOR INFERIOR INFARCT ARE NO LONGER PRESENT Confirmed by WALESKA HILL, TAYLOR ([id number]) on 12/30/2022 7:48:05 PM [facility] MUSE 12/28/2022 11:1 9 AM CDT 12/30/2022 7:48 PM CDT Terry Centeno MD ECG ORDERABLES Performing Organization Address City/[facility]/ZIP Co de Phone Number [facility] MUSE * TROPONIN-I HIGH SENSITIVE REFLEX 1HOUR (12/28/2022 11:14 AM CDT) Only the most recent of3 resultswithin the time period is included. Troponin I High Sensitive 9 <=14 ng/L 12/28/2022 12:33 PM [facility] Delta Troponin I HS 12/28/2022 12:33 PM [facility] Comment:Delta value intentio pascual not calculated. Baseline to 1 hour specimen collection interval exceeded. Blood BLOOD SPECIMEN / Unknown Venipuncture / Unknown 12/28/2022 11:14 AM CDT 12/28/2022 11:57 AM CDT Terry Centeno MD LAB - CHEMISTRY [facility] [address] [address], [facility] [phone] * (ABNORMAL) URINALYSIS REFLEX TO MICROSCOPIC NO CULTURE (12/28/2022 11:14 AM CDT) Only the most recent of5 resultswithin the time period is included. [facility] Color UA Colorless(A ) Straw, Yellow 12/28/2022 12:01 PM [facility] Clarity UA Clear Clear 12/28/2022 12:01 PM [facility] Specific [place] UA 1.003(L) 1.005 - 1.030 12/28/2022 12:01 [...] 0-2, 3-5 /HPF 12/28/2022 12:01 PM CDT [facility] WBC UA 0-5 None Seen, 0-5 /HPF 12/28/2022 12:01 PM CDT [facility] Squamous Epithelial Cells UA 0-2 None Seen, 0-2, 3-5 /HPF 12/28/2022 12:01 PM CDT [facility] Urine URINE SPECIMEN OBTAINED BY CLEAN CATCH PROCEDURE / Unknown Collection / Unknown 12/28/2022 11:14 AM CDT 12/28/2022 11:51 AM CDT Narrative [facility] - 12/28/2022 12:01 PM CDT Terry Centeno MD LAB - URINALYSIS ORD ERABLES Performing Organization Address City/[facility]/ZIP Co de Phone Number [address] [address], [place] [phone] * LACTIC ACID BLOOD REFLEX TO REPEAT (12/28/2022 8:32 AM CDT) Only the most recent of2 resultswithin the time period is included. Lactic Acid-Stat 1.5 <=2.0 mmol/L 12/28/2022 9:07 AM CDT [facility] Blood BLOOD SPECIMEN / Unknown Venipuncture / Unknown 12/28/2022 8:32 AM CDT 12/28/2022 8:43 AM CDT Terry Centeno MD LAB - CHEMISTRY ORDE RABDIVYA [facility] [address] [place] [address], [place] [phone] * TROPONIN-I HIGH SENSITIVE BASELINE + 1HR (12/28/2022 8:32 AM CDT) Only the most recent of3 resultswithin the time period is included. Troponin I High Sensitive 11 <=14 ng/L 12/28/2022 9:10 AM CDT [facility] Blood BLOOD SPECIMEN / Unknown Venipuncture / Unknown 12/28/2022 8:32 AM CDT 12/28/2022 8:51 AM CDT Terry Centeno MD LAB - CHEMISTRY [facility] Performing Organization Address City/[facility]/ZIP Co de Phone Number [facility] [address] [place] [address], [facility] [phone] * (ABNORMAL) TSH REFLEX FREE T4 (12/28/2022 8:32 AM CDT) Only the most recent of2 resultswithin the time period is included. TSH 0.142(L) 0.350 - 4.940 uIU/mL 12/28/2022 9:24 AM CDT [facility] Blood BLOOD SPECIMEN / Unknown Venipuncture / Unknown 12/28/2022 8:32 AM CDT 12/28/2022 8:50 AM CDT Terry Centeno MD LAB - CHEMISTRY [facility] Performing Organization Address [facility]/ZIP Co de Phone Number [facility] [address] [place] [address], [facility] [phone] * B-TYPE NATRIURETIC PEPTIDE (12/28/2022 8:32 AM CDT) BNP 29 <100 pg/mL 12/28/2022 9:18 AM CDT [facility] Comment: A decision threshold of 100 [...] Centeno MD LAB - CHEMISTRY [facility] LABOR[facility]ORY [facility] [address] [place] [address], [facility] [phone] * (ABNORMAL) URINALYSIS REFLEX MICROSCOPIC REFLEX CULTURE (12/17/2022 6:33 PM CDT) Only the most recent of2 resultswithin the time period is included. Color UA Straw Straw, Yellow 12/17/2022 6:44 PM CDT [facility] Clarity UA Clear Clear 12/17/2022 6:44 PM CDT [facility] Specific [place] UA 1.003(L) 1.005 - 1.030 12/17/2022 6:44 PM CDT [facility] pH UA 6.0 5.0 - 8.0 pH 12/17/2022 6:44 PM CDT [facility] Protein UA Negative Negative 12/17/2022 6:44 PM CDT [facility] Glucose UA Negative Negative 12/17/2022 6:44 PM CDT [facility] Ketone UA Negative Negative 12/17/2022 6:44 PM CDT [facility] Bilirubin UA Negative Negative 12/17/2022 6:44 PM CDT [facility] Blood UA Negative Negative 12/17/2022 6:44 PM CDT [facility] Nitrite UA Negative Negative 12/17/2022 6:44 PM CDT [facility] Leukocyte Esterase Negative Negative 12/17/2022 6:44 PM CDT [facility] Urobilinogen UA Negative Negative mg/dL 12/17/2022 6:44 PM CDT [facility] Comment UA Microscopic not indicated. 12/17/2022 6:44 PM CDT [facility] Urine URINE SPECIMEN OBTAINED BY CLEAN CATCH PROCEDURE / Unknown Collection / Unknown 12/17/2022 6:33 PM CDT 12/17/2022 6:37 PM CDT Narrative [facility] - 12/17/2022 6:44 PM CDT Terry Centeno MD LAB - URINALYSIS ORD ERABLES [facility] [place] [address], [facility] [phone] * CT HEAD WO CONTRAST (12/17/2022 2:04 [...] is dictated by Darlyn Cabrera Dr, MD (president [employer]) IJuaquin MD have personally reviewed and interpreted this examination/study. > Interpreting Provider: Juaquin Mcleod MD on 12/17/2022 2:42 PM Narrative 12/17/2022 2:42 PM CDT PROCEDURE: CT HEAD WO CONTRAST, DATE/TIME OF EXAM: 12/17/2022 2:05 PM, LOCATION [facility] INDICATION: R53.83: Fatigue, unspecified type ADDITIONAL CLINICAL [...] DATE/TIME OF EXAM: 12/17/2022 2:05 PM, LOCATION [facility] INDICATION: R53.83: Fatigue, unspecified type ADDITIONAL CLINICAL [...] is dictated by Darlyn Cabrera Dr, MD (president [employer]) I, Juaquin Mcleod MD have personally reviewed [...] DATE/TIME OF EXAM: 12/17/2022 1:05 PM, LOCATION [facility] INDICATION: R53.83: Fatigue, unspecified type ADDITIONAL CLINICAL [...] intact. Report dictated by Cody Hinkle MD (president [employer]). Daisy Lanier MD have personally reviewed and interpreted this examination/study. > Interpreting Provider: Daisy Land MD on 12/17/2022 1:47 PM Procedure Note Daisy Land MD - 12/17/2022 PROCEDURE: XR CHEST 1VW PORTABLE, DATE/TIME OF EXAM: 12/17/2022 1:05PM, LOCATION [facility] INDICATION: R53.83: Fatigue, unspecified type ADDITIONAL CLINICAL [...] isintact. Report dictated by Cody Hinkle MD (president [employer]). Daisy Lanier MD have personally reviewed and interpreted this examination/study. > Interpreting Provider: Daisy Land MD on 12/17/2022 1:47 PM Terry Centeno MD DIAGNOSTIC IMAGING O RDERABLES * MANUAL DIFFERENTIAL REVIEWED (12/03/2022 8:54 AM CDT) Only the most recent of2 resultswithin the time period is included. Manual Differential Reviewed DIFFERENTIAL REVIEW - CONFIRMED DIFFERENTIAL REVIEW - CONFIRMED 12/08/2022 5:27 PM CDT [facility] Blood BLOOD SPECIMEN / Unknown 12/03/2022 8:54 AM CDT 12/03/2022 9:02 AM CDT Narrative [facility] - 12/08/2022 5:27 PM CDT Slight left shifted neutrophils some with reactive changes. Rare immature appearing monocyte. Shreyas Phillips MD LAB - HEMATOLOGY ORD ERABLES Performing Organization Address [facility] Co de Phone Number [address] [address], [facility] [phone] * PATHOLOGY PERIPHERAL SMEAR REVIEW (11/24/2022 11:23 AM CDT) Only the most recent of2 resultswithin the time period is included. [facility] Pathology Diff Review DIFFERENTIAL REVIEW - CONFIRMED DIFFERENTIAL REVIEW - CONFIRMED 11/24/2022 6:01 PM CDT [facility] Blood BLOOD SPECIMEN / Unknown Venipuncture / Unknown 11/24/2022 11:23 AM CDT 11/24/2022 11:28 AM CDT Narrative [facility] - 11/24/2022 6:01 PM CDT Final [...] hypotension and unresponsiveness after G-CSF administration. Shanna aNranjo MD Attending Physician Department of Pathology Transfusion Medicine Shreyas Phillips MD LAB - PATHOLOGY/CYTO LOGY ORDERABLES Performing Organization Address [facility] Co de Phone Number [facility] [address] [place] [address], [facility] [phone] * (ABNORMAL) CBC W/O DIFFERENTIAL (11/19/2022 5:39 AM CDT) Only the most recent of17 resultswithin the time period is included. [facility] WBC 3.1(L) 3.5 - 10.5 10 3/uL 11/19/2022 6:39 AM CDT [facility] RBC 2.76(L) 3.80 - 5.20 10 6/uL 11/19/2022 6:39 AM [facility] Hemoglobin 8.7(L) 12.0 - 15.6 [...] Linares MD LAB - HEMATOLOGY ORD ERABLES [facility] [address] [place] [address], [facility] [phone] * (ABNORMAL) RENAL FUNCTION PANEL (11/19/2022 5:39 [...] 11/19/2022 5:39 AM CDT 11/19/2022 6:16 AM [facility] Rajani Linares MD LAB - CHEMISTRY [facility] Organization Address City/State/ZIP Co de Phone Number [facility] [address] [place] [address], [facility] [phone] * LACTIC ACID BLOOD (11/18/2022 3:21 PM CDT) Only the most recent of2 resultswithin the time period is included. [facility] Lactic Acid-Stat 1.2 <=2.0 mmol/L 11/18/2022 3:53 PM CDT [facility] Blood BLOOD SPECIMEN / Unknown Venipuncture / Unknown 11/18/2022 3:21 PM CDT 11/18/2022 3:31 PM CDT Ezra Ross MD LAB - CHEMISTRY [facility] [address] [place] [address], [facility] [phone] * CULTURE BLOOD (11/18/2022 2:36 PM CDT) Only the most recent of2 resultswithin the time period is included. [facility] Culture No growth day 5 [facility] 11/23/2022 7:00 PM CDT [facility] MICROBIOLOG[facility] Blood PERIPHERAL BLOOD / Unknown Venipuncture / Unknown 11/18/2022 2:36 PM CDT 11/18/2022 2:40 PM CDT Adia Alfredo MD LAB - MICROBIOLOGY O RDERABLES [facility] MICRO[facility]OLOG[facility] [address] [place] [address], [facility] [phone] * (ABNORMAL) CALCIUM IONIZED WHOLE BLOOD (11/18/2022 1:50 PM CDT) [facility] Calcium Ionized 1.20 mmol/L 11/18/2022 2:13 PM CDT [facility] pH 7.33(L) 7.35 - 7.45 pH 11/18/2022 2:13 PM CDT [facility] Ionized Calcium pH Adjusted 1.17(L) 1.19 - 1.34 mmol/L 11/18/2022 2:13 PM CDT [facility] Blood BLOOD SPECIMEN / Unknown Venipuncture / Unknown 11/18/2022 1:50 PM CDT 11/18/2022 2:10 PM CDT Adia Alfredo MD LAB - CHEMISTRY [facility] [address] [place] [address], [place] [phone] * (ABNORMAL) RETIC COUNT (11/18/2022 1:50 PM CDT) Reticulocyte % 1.0 0.4 - 2.5 % 11/18/2022 2:18 PM CDT [facility] Reticulocyte Absolute 0.0281 0.0200 - 0.1300 10 6/uL 11/18/2022 2:18 PM CDT [facility] Reticulocyte Immature Fractionated 7.0 0.9 - 14.3 % 11/18/2022 2:18 PM CDT [facility] Hemoglobin Retic 37.7(H) 27.8 - 36.8 pg 11/18/2022 2:18 PM CDT [facility] Blood BLOOD SPECIMEN / Unknown Venipuncture / Unknown 11/18/2022 1:50 PM CDT 11/18/2022 2:12 PM CDT Adia Alfredo MD LAB - HEMATOLOGY [facility]ON[facility] [address] [address], [place] [phone] * HAPTOGLOBIN (11/18/2022 1:50 PM CDT) Haptoglobin 69 14 - 258 mg/dL 11/18/2022 3:10 PM CDT [facility] Blood BLOOD SPECIMEN / Unknown Venipuncture / Unknown 11/18/2022 1:50 PM CDT 11/18/2022 2:11 PM CDT Adia Alfredo MD LAB - CHEMISTRY [facility] [address] [address], [place] [phone] * (ABNORMAL) RBC MORPHOLOGY (11/12/2022 12:49 PM CDT) Platelet Estimate Adequate Adequate 023 2:09 PM CDT [facility] Anisocytosis 1+(A) None 11/12/2022 2:09 PM CDT [facility] Macrocytosis Few(A) None 11/12/2022 2:09 PM CDT [facility] Polychromasia Occasional( A) None 11/12/2022 2:09 PM CDT [facility] Schistocytes Occasional( A) None 11/12/2022 2:09 PM CDT [facility] Ovalocytes Occasional( A) None 11/12/2022 2:09 PM CDT [facility] Tear Drop Cells Occasional( A) None 11/12/2022 2:09 PM CDT [facility] Dohle Bodies Occasional( A) None 11/12/2022 2:09 PM CDT [facility] Large Platelet Count Occasional( A) None 11/12/2022 2:09 PM CDT [facility] Blood BLOOD SPECIMEN / Unknown Venipuncture / Unknown 11/12/2022 12:49 PM CDT 11/12/2022 1:04 PM CDT Shreyas Phillips MD LAB - HEMATOLOGY ORD ERABLES [facility] [address] [place] [address], [facility] [phone] * (ABNORMAL) SLIDE SCAN HEMATOLOGY (11/11/2022 2:34 AM CDT) Only the most recent of2 resultswithin the time period is included. Platelet Estimation Adequate platelets Normal, Adequate platelets 11/11/2022 4:57 AM CDT [facility] Anisocytosis 1+(A) None 11/11/2022 4:57 AM CDT [facility] Macrocytosis 1+(A) None 11/11/2022 4:57 AM CDT [facility] Poikilocytosis 1+(A) None 11/11/2022 4:57 AM CDT [facility] Blood BLOOD SPECIMEN / Unknown Lab Venipuncture / Unknown 11/11/2022 2:34 AM CDT 11/11/2022 3:37 AM CDT Santosh Hoffman MD LAB - HEMATOLOGY OR DERABLES Performing Organization Address City/[facility]/ZIP Co de Phone Number [facility] [address] [place] [address] * (ABNORMAL) BASIC METABOLIC PANEL (CALCIUM TOTAL) (11/11/2022 12:25 AM CDT) Only the most recent of5 resultswithin the time period is included. [facility] Glucose 134(H) 70 - 105 mg/dL 11/11/2022 4:19 AM CDT [facility] Sodium 139 136 - 145 mmol/L 11/11/2022 4:19 AM CDT [facility] Potassium 4.5 3.5 - 5.1 mmol/L 11/11/2022 4:19 AM CDT [facility] Chloride 107 98 - 107 mmol/L 11/11/2022 4:19 AM CDT [facility] CO2 25 22 - 29 mmol/L 11/11/2022 4:19 AM CDT [facility] Calcium 9.6 8.4 - 10.4 mg/dL 11/11/2022 4:19 AM CDT [facility] Anion Gap 7 6 - 16 mmol/L 11/11/2022 4:19 AM CDT [facility] BUN 19 7 - 26 mg/dL 11/11/2022 4:19 AM CDT [facility] Creatinine 0.85 0.57 - 1.11 mg/dL 11/11/2022 4:19 AM T [facility] eGFR by CKD-EPI 76(L) >=90 mL/min/1.7 3 m2 11/11/2022 4:19 AM CDT [facility] Blood BLOOD SPECIMEN / Unknown Venipuncture / Unknown 11/11/2022 12:25 AM CDT 11/11/2022 3:37 AM CDT Peter Combs MD LAB - CHEMISTRY [facility] [address] [place] [id number] * ECHO COMPLETE W BUBBLE STUDY (10/26/2022 8:09 AM CDT) BSA 1.0058469 [id number] m2 [facility]SM CV FUJI PACS LV biplane [...] -25.1 % SS M CV FUJI PACS AR pk sys strain -18.8 % SSM CV [...] HR 133 [facility] CV FUJ I PACS [id number] 6.088 cm SSM CV FUJ I PACS [id number] 6.153 cm [facility]SM CV FUJ I PACS [...] hemorrhage or large vascular territory infarct. Punctate [id number] infarct within the left superior cerebellum seen [...] DATE/TIME OF EXAM: 10/25/2022 10:17 PM, LOCATION: [facility] HISTORY: G93.9: Lesion of cerebellum ADDITIONAL CLINICAL [...] vascular territory infarct, or mass effect. Punctate slkao-[id number]-[id number] infarct within the left superior cerebellum seen [...] orbits are unremarkable. Patient is edentulous on reporting specialist topogram. CTA HEAD: No occlusion, hemodynamically significant [...] DATE/TIME OF EXAM: 10/25/2022 10:17 PM, LOCATION: [facility] HISTORY: G93.9: Lesion of cerebellum ADDITIONAL CLINICAL [...] large vascular territory infarct,or mass effect. Punctate hlybx-kf-jtuwdaku infarct within the left superior cerebellum seen [...] orbits are unremarkable. Patient is edentulous on reporting specialist topogram. CTA HEAD: No occlusion, hemodynamically significant [...] hemorrhage or large vascular territory infarct. Punctate gsbpr-kr-irlwqibg infarct within the left superior cerebellumseen on [...] - 0.40 umol/L 10/28/2022 2:06 PM CDT [facility] ([facility]) Comment: INTERPRETIVE INFORMATION: MMA Serum/Plasma, Vitamin B12 Status This test was developed and its performance characteristics determined by [employer]. It has not been cleared or approved by the [place] Food and Drug Administration. This test was performed in a CLIA certified laboratory and is intended for clinical purposes. Performed By: [facility] [address] [place] [address] Canoe Maker: Blayne Ojeda MD, PhD CLIA Number: [id number] Blood BLOOD SPECIMEN / Unknown Venipuncture / Unknown 10/24/2022 6:11 AM CDT 10/24/2022 6:20 AM CDT James Park III, MD LAB - CHEMISTRY O RDERABLES [facility]) 78 [place] [address] * ZINC BLOOD (10/24/2022 6:11 AM CDT) Zinc 77.9 60.0 - 120.0 ug/dL 10/26/2022 10:59 PM CDT [facility] ([facility]) Comment: INTERPRETIVE INFORMATION: Zinc, Serum or [...] developed and its performance characteristics determined by [employer]. It has not been cleared or approved by the US Food and Drug Administration. This test was performed in a CLIA certified laboratory and is intended for clinical purposes. Performed By: [facility] [address] [place] [address] Canoe Maker: Blayne Ojeda MD, PhD CLIA Number: [id number] Blood BLOOD SPECIMEN / Unknown Venipuncture / Unknown 10/24/2022 6:11 AM CDT 10/24/2022 6:20 AM CDT James Park III, MD LAB - CHEMISTRY O RDJOELLE Performing Organization Address [facility] Co de Phone Number [facility]) [address] [place] [address] * VITAMIN E (10/24/2022 6:11 AM CDT) Pathologist [facility] Vitamin E Alpha Tocopherol 10.8 5.5 - 18.0 mg/L 10/27/2022 12:15 PM CDT [facility] ([facility]) Comment: This test was developed and its performance characteristics determined by [employer]. It has not been cleared or approved by the US Food and Drug Administration. This test was performed in a CLIA certified laboratory and is intended for clinical purposes. Vitamin E Gamma Tocopherol 0.6 0.0 - 6.0 mg/L 10/27/2022 12:15 PM CDT [facility] ([facility]) Comment: Performed By: [facility] [address] [place] [address] Canoe Maker: Blayne Ojeda MD, PhD CLIA Number: [id number] Blood BLOOD SPECIMEN / Unknown Venipuncture / Unknown 10/24/2022 6:11 AM CDT 10/24/2022 6:20 AM CDT James Park III, MD LAB - CHEMISTRY O JANICE Performing Organization Address [facility] Co de Phone Number [facility] ([facility]) [address] [place] [address] * (ABNORMAL) VITAMIN B1 (10/24/2022 6:11 AM CDT) [facility] Vitamin B1 Whole Blood 58(L) 70 - 180 nmol/L 10/27/2022 10:58 AM CDT [facility] ([facility]) Comment: INTERPRETIVE INFORMATION: Vitamin B1, Whole Blood This assay measures the concentration of thiamine diphosphate (TDP), the primary active form of vitamin B1. Approximately 90 percent of vitamin B1 present in whole blood is TDP. Thiamine and thiamine monophosphate, which comprise the remaining 10 percent, are not measured. This test was developed and its performance characteristics determined by [facility]. It has not been cleared or approved by the US Food and Drug Administration. This test was performed in a CLIA certified laboratory and is intended for clinical purposes. Performed By: [facility] [address] [place] [address] Canoe Maker: Blayne Ojeda MD, PhD CLIA Number: [id number] Blood BLOOD SPECIMEN / Unknown Venipuncture / Unknown 10/24/2022 6:11 AM CDT 10/24/2022 6:20 AM CDT James Park III, MD LAB - CHEMISTRY O RDERABLES [facility]) [address] [place] [address] * (ABNORMAL) VITAMIN B6 (10/24/2022 6:11 AM CDT) [facility] Vitamin B6 19.1(L) 20.0 - 125.0 nmol/L 10/28/2022 7:10 AM CDT [facility] ([facility]) Comment: INTERPRETIVE INFORMATION: Vitamin B6 (Pyridoxal 5-Phosphate) Pyridoxal 5'-phosphate measured in a specimen collected following an 8-hour or overnight fast accurately indicates vitamin B6 nutritional status. Non-fasting specimen concentration reflects recent vitamin intake. This test was developed and its performance characteristics determined by [facility]. It has not been cleared or approved by the US Food and Drug Administration. This test was performed in a CLIA certified laboratory and is intended for clinical purposes. Performed By: [facility] [address] [place] [address] Canoe Maker: Blayne Ojeda MD, PhD CLIA Number: [id number] Blood BLOOD SPECIMEN / Unknown Venipuncture / Unknown 10/24/2022 6:11 AM CDT 10/24/2022 6:21 AM CDT James Park III, MD LAB - CHEMISTRY O RDERAARNIE Performing Organization Address [facility] de Phone Number [facility]) [address] [place] [address] * COPPER BLOOD (10/24/2022 6:11 AM CDT) Copper 150.2 80.0 - 155.0 ug/dL 10/26/2022 10:59 PM CDT [facility] ([facility]) Comment: INTERPRETIVE INFORMATION: Copper, Serum or [...] developed and its performance characteristics determined by [employer]. It has not been cleared or approved by the US Food and Drug Administration. This test was performed in a CLIA certified laboratory and is intended for clinical purposes. Performed By: [facility] [address] [place] [address] Canoe Maker: Blayne Ojeda MD, PhD CLIA Number: [id number] Blood BLOOD SPECIMEN / Unknown Venipuncture / Unknown 10/24/2022 6:11 AM CDT 10/24/2022 6:20 AM CDT James Park III, MD LAB - CHEMISTRY O JANICE Performing Organization Address [facility] Co de Phone Number [facility]) [address] [place] [address] * HOMOCYSTEINE BLOOD QUANTITATIVE (10/24/2022 6:11 AM CDT) Homocysteine 6.9 4.4 - 16.2 umol/L 10/24/2022 7:08 AM CDT [facility] Blood BLOOD SPECIMEN / Unknown Venipuncture / Unknown 10/24/2022 6:11 AM CDT 10/24/2022 6:21 AM CDT James Park III, MD LAB - CHEMISTRY O RDERAARNIE Performing Organization Address City/[facility]/ZIP Co de Phone Number [address] [address], [facility] [phone] * FOLATE (10/24/2022 6:11 AM CDT) Folate 11.0 7.0 - 31.4 ng/mL 10/24/2022 7:33 AM CDT [facility] Blood BLOOD SPECIMEN / Unknown Venipuncture / Unknown 10/24/2022 6:11 AM CDT 10/24/2022 6:28 AM CDT James Park III, MD LAB - CHEMISTRY O RDJOELLE Performing Organization Address [facility]/ZIP Co de Phone Number [address] [address], [facility] [phone] * (ABNORMAL) VITAMIN B12 (10/24/2022 6:11 AM CDT) Vitamin B12 1,054(H) 213 - 816 pg/mL 10/24/2022 7:33 AM CDT [facility] Blood BLOOD SPECIMEN / Unknown Venipuncture / Unknown 10/24/2022 6:11 AM CDT 10/24/2022 6:28 AM CDT James Park III, MD LAB - CHEMISTRY O RDERAARNIE Performing Organization Address City/[facility]/ZIP Co de Phone Number [address] [address], [facility] [phone] * (ABNORMAL) VITAMIN D 25-HYDROXY (10/24/2022 12:50 AM CDT) Vitamin D, 25 Hydroxy 29.0(L) 30.0 - 80.0 ng/mL 10/24/2022 6:52 AM CDT [facility] Comment: The recommendations for 25-Hydroxy Vitamin [...] III, MD LAB - CHEMISTRY O RDERABLES [address] [address], [facility] [phone] * TRANSFUSE RED BLOOD CELL LEUKOREDUCED UNIT(S) (10/23/2022 12:04 PM CDT) Parish Aguirre II, MD NURSING - BLOOD PROD TRANSFUSION * PREPARE (CROSSMATCH) RBC UNIT(S), 1 Units (10/23/2022 9:53 AM CDT) Only the most recent of4 resultswithin the time period is included. [facility] Unit Description AS1 LR PRBC IRR [facility] BLOOD BANK LAB Unit ABO A [facility] BLOOD BANK LAB Unit Rh POS [facility] BLOOD BANK LAB Product Number R04 [facility] B LOOD BANK LAB Unit Donor # [id number] [facility] BLOOD BANK LAB Unit Status transfused [facility] BLO OD BANK LAB Product Code [id number] [facility] BLO OD BANK LAB Blood Type Barcode 6200 [facility] BLOOD BANK LAB Expiration Date [id number] S BLOOD BANK LAB Blood Bank BLOOD SPECIMEN / Unknown 10/23/2022 8:28 AM CDT Parish Aguirre II, MD LAB - BLOOD BANK ORDERABLES [facility] BLOOD BANK LAB [address] [place] [address], [facility] [phone] * MRI LUMBAR SPINE WWO CONTRAST (10/23/2022 [...] DATE/TIME OF EXAM: 10/23/2022 6:48 AM, LOCATION [facility] INDICATION: R32: Urinary incontinence, unspecified type C85.10: [...] DATE/TIME OF EXAM: 10/23/2022 6:48 AM, LOCATION [facility] INDICATION: R32: Urinary incontinence, unspecified type C85.10: [...] burden. Report dictated by Flores Farias MD (president consumer electronics [employer]). I, Nakul Bridges MD have personally reviewed and interpreted this examination/study. > Interpreting Provider: Nakul Bridges MD on 10/18/2022 10:50 PM Narrative 10/18/2022 10:50 PM CDT PROCEDURE: XR ABDOMEN KUB PORTABLE, DATE/TIME OF EXAM: 10/17/2022 6:55 PM, LOCATION [facility] INDICATION: K59.00: Constipation, unspecified constipation type ADDITIONAL [...] PORTABLE, DATE/TIME OF EXAM: 10/17/2022 6:55PM, LOCATION [facility] INDICATION: K59.00: Constipation, unspecified constipation type ADDITIONAL [...] burden. Report dictated by Flores Farias MD (president consumer [employer]). I, Nakul Bridges MD have personally reviewed and interpreted this examination/study. > Interpreting Provider: Nakul Bridges MD on 10/18/2022 10:50 PM Michele Nieves MD DIAGNOSTIC IMAGING O RDERABLES * CYTOMEGALOVIRUS ANTIBODY IGG BLOOD (10/14/2022 10:49 AM CDT) Only the most recent of4 resultswithin the time period is included. Cytomegalovirus Antibody IgG <0.20 <=0.70 U/mL 10/15/2022 10:28 PM CDT [facility] ([facility]) Comment: INTERPRETIVE INFORMATION: Cytomegalovirus Antibody, IgG [...] laboratory at the same time. Performed By: [facility] [address] [place] [id number] Canoe Maker: Blayne Ojeda MD, PhD Blood BLOOD SPECIMEN / Unknown Venipuncture / Unknown 10/14/2022 10:49 AM CDT 10/14/2022 11:02 AM CDT Shreyas Phillips MD LAB - CHEMISTRY SILVINO LENZ [facility] Organization Address City/State/ZIP Co de Phone Number [facility] ([facility]) [address] [phone], [facility] * TRANSFUSE RED BLOOD CELL LEUKOREDUCED [...] demineralized. Report dictated by Kay Gardiner MD (president consumer electronics [employer]). Ekta Lanier MD have personally reviewed and interpreted this examination/study. > Interpreting Provider: Ekta Lara MD on 10/01/2022 3:40 PM Narrative 10/01/2022 3:40 PM CDT PROCEDURE: XR HAND RIGHT 3VW OR MORE, DATE/TIME OF EXAM: 10/01/2022 12:56 PM, LOCATION [facility] INDICATION: M79.641: Right hand pain ADDITIONAL CLINICAL [...] MORE, DATE/TIME OF EXAM: 2:56 PM, LOCATION [facility] INDICATION: M79.641: Right hand pain ADDITIONAL CLINICAL [...] demineralized. Report dictated by Kay Gardiner MD (president consumer [employer]). I, E. Ama Lara MD have personally [...] Culture to follow 09/10/2022 11:44 AM CDT [facility] WBC UA 21-50(A) None Seen, 0-5 /HPF 09/10/2022 11:44 AM CDT [facility] Bacteria UA Trace(A) None /HPF 09/10/2022 11:44 AM CDT [facility] Squamous Epithelial Cells UA >20(A) None Seen, 0-2, 3-5 /HPF 09/10/2022 11:44 AM CDT [facility] Mucus UA 2+ /LPF 09/10/2022 11:44 AM CDT [facility] Hyaline Casts UA 0-2 None Seen, 0-2 /LPF 09/10/2022 11:44 AM CDT [facility] Urine URINE SPECIMEN OBTAINED BY CLEAN CATCH PROCEDURE / Unknown Collection / Unknown 09/10/2022 11:19 AM CDT 09/10/2022 11:23 AM CDT Narrative [facility] - 09/10/2022 11:44 AM CDT Shreyas Phillips MD LAB - URINALYSIS ORD ERABLES [facility] [address] [place] [address], [facility] [phone] * CULTURE URINE (09/10/2022 11:19 AM CDT) Only the most recent of2 resultswithin the time period is included. Culture Urine 50,000-100,000 CFU/mL urogenital galdino 09/12/2022 2:15 AM CDT [facility] Urine URINE SPECIMEN OBTAINED BY CLEAN CATCH PROCEDURE / Unknown Collection / Unknown 09/10/2022 11:19 AM CDT 09/10/2022 11:44 AM CDT Shreyas Phillips MD LAB - MICROBIOLOGY O RDERABLES [facility] [address] [place] [address], [facility] [phone] * PTT [facility] (09/03/2022 3:37 AM CDT) APTT 30.5 23.0 - 38.4 Seconds 09/03/2022 4:11 AM CDT [facility] Comment:Suggested therapeuti c range for full dose I.V. unfractionated heparin therapy for venous thromboembolism is 71 to 109 seconds. Blood BLOOD SPECIMEN / Unknown Venipuncture / Unknown 09/03/2022 3:37 AM CDT 09/03/2022 3:46 AM CDT Shreyas Phillips MD LAB - COAGULATION OR DERABLES Performing Organization Address City/[facility]/ZIP Co de Phone Number [address] [address], [place] [phone] * FIBRINOGEN ACTIVITY (09/03/2022 3:37 AM CDT) Fibrinogen Clauss 360 200 - 400 mg/dL 09/03/2022 4:10 AM CDT [facility] Blood BLOOD SPECIMEN / Unknown Venipuncture / Unknown 09/03/2022 3:37 AM CDT 09/03/2022 3:46 AM CDT Shreyas Phillips MD LAB - COAGULATION OR DERABLES Performing Organization Address City/[facility]/ZIP Co de Phone Number [address] [address], [facility] [phone] * TRANSFUSE RED BLOOD CELL LEUKOREDUCED UNIT(S) (08/24/2022 3:18 PM CDT) Shreyas Phillips MD NURSING - BLOOD PROD TRANSFUSION * HIV-1 HIV-2 ANTIBODY + HIV P24 AG PANEL (07/16/2022 12:15 PM CDT) Pathologist [facility] HIV Antigen/Antibod y 1 & 2 Non-reacti ve Non-react marcellus 07/16/2022 1:14 PM CDT [facility] Comment:No Laboratory eviden ce of HIV infection. Blood BLOOD SPECIMEN / Unknown Lab Venipuncture / Unknown 07/16/2022 12:15 PM CDT 07/16/2022 12:25 PM CDT Shreyas Phillips MD LAB - CHEMISTRY SIVLINO LENZ [facility] Organization Address City/State/ZIP Co de Phone Number [facility] [address] [place] [address], [facility] [phone] * HEPATITIS C RNA QUANTITATIVE (07/16/2022 12:15 PM CDT) [facility] Hepatitis C RNA PCR, Interp Not detected Not detected 07/19/2022 1:08 PM CDT [facility] Blood BLOOD SPECIMEN / Unknown Lab Venipuncture / Unknown 07/16/2022 12:15 PM CDT 07/16/2022 12:25 PM CDT Narrative [facility] - 07/19/2022 1:08 PM CDT The Hepatitis C viral (HCV) RNA analysis utilized a serum sample, real-time reverse lubricating machine tender PCR, and is reported as Not Detected, [...] the isolation of HCV RNA with reverse lubricating machine tender of genomic HCV RNA followed by real-time PCR in the presence of an unrelated RNA internal control. The internal control ensures that RNA is isolated, and that no general significant inhibitors of the RT-PCR process are present. The analysis was performed using a U.S. FDA approved test methodology. Shreyas Phillips MD LAB - CHEMISTRY SILVINO LENZ Performing Organization Address City/[facility]/ZIP Co de Phone Number [facility] [address] [place] [address], [facility] [phone] * (ABNORMAL) ERYTHROCYTE SEDIMENTATION RATE (07/16/2022 12:15 PM CDT) Pathologist [facility] Erythrocyte Sedimentation Rate Westergren 50(H) 0 - 30 MM/HR 07/16/2022 1:22 PM CDT [facility] Blood BLOOD SPECIMEN / Unknown Lab Venipuncture / Unknown 07/16/2022 12:15 PM CDT 07/16/2022 12:29 PM CDT Shreyas Phillips MD LAB - HEMATOLOGY SONDRA LAI Performing Organization Address [facility] Co de Phone Number [address] [address], [place] [phone] * HEPATITIS B CORE ANTIBODY TOTAL (07/16/2022 12:15 PM CDT) Pathologist [facility] HBc Antibody Total Non-reacti ve Non-reacti ve 07/16/2022 1:14 PM CDT [facility] Blood BLOOD SPECIMEN / Unknown Lab Venipuncture / Unknown 07/16/2022 12:15 PM CDT 07/16/2022 12:25 PM CDT Shreyas Phillips MD LAB - CHEMISTRY SILVINO LENZ Performing Organization Address [facility] Co de Phone Number [address] [address], [place] [phone] * HEPATITIS B SURFACE ANTIGEN W RFLX CONFIRMATION (07/16/2022 12:15 PM CDT) Hepatitis B Virus Surface Antigen Non-reacti ve Non-reacti ve 07/16/2022 1:14 PM CDT [facility] Blood BLOOD SPECIMEN / Unknown Lab Venipuncture / Unknown 07/16/2022 12:15 PM CDT 07/16/2022 12:25 PM CDT Shreyas Phillips MD LAB - CHEMISTRY SILVINO LENZ [address] [address], [place] [phone] * IGM BLOOD (07/16/2022 12:15 PM CDT) IgM 166 37 - 286 mg/dL 07/16/2022 12:56 PM CDT [facility] Blood BLOOD SPECIMEN / Unknown Lab Venipuncture / Unknown 07/16/2022 12:15 PM CDT 07/16/2022 12:25 PM CDT Shreyas Phillips MD LAB - CHEMISTRY SILVINO LENZ Performing Organization Address City/[facility]/ZIP Co de Phone Number [address] [address], [place] [phone] * IGG BLOOD (07/16/2022 12:15 PM CDT) IgG 790 767 - 1,590 mg/dL 07/16/2022 12:56 PM CDT [facility] Blood BLOOD SPECIMEN / Unknown Lab Venipuncture / Unknown 07/16/2022 12:15 PM CDT 07/16/2022 12:25 PM CDT Shreyas Phillips MD LAB - CHEMISTRY SILVINO LENZ [address] [address], [place] [phone] * IGA BLOOD (07/16/2022 12:15 PM CDT) IgA 84 61 - 356 mg/dL 07/16/2022 12:56 PM CDT [facility] Blood BLOOD SPECIMEN / Unknown Lab Venipuncture / Unknown 07/16/2022 12:15 PM CDT 07/16/2022 12:25 PM CDT Shreyas Phillips MD LAB - CHEMISTRY SILVINO LENZ [facility] [address] [place] [address], [facility] [phone] * IR BOWEN CATH INSERT (07/15/2022 9:45 AM CDT) Anatomical Region Laterality Modality Chest X-Ray Angiograph y 07/15/2022 1:36 PM CDT Impressions 07/15/2022 3:31 PM CDT Impression: Successful placement of a single lumen 8 Ugandan x 20 cm chest power port via the right internal jugular vein under ultrasound and fluoroscopic guidance, as described above. Note: Keep the dressing clean and dry for 5 days. Recommend port access after 5 days to minimize infection and allow better healing. Francisca Lanier PA, was present and performed/supervised the entire procedure > Dictated by Aguila Pritchett (Towboat Engineer) 07/15/2022 1:38 PM ITin DO have personally [...] chest. 3.Fluoroscopy-guided placement of single lumen 8 Ugandan x 20 cm chest power port via the right internal jugular vein. Fluoroscopic time: 0.1 minutes Procedure details: The procedure, risks, and possible complications were explained to the patient in detail and informed consent was obtained. The patient was placed supine on the angiography table. . The right neck and upper chest were prepped and draped in the usual sterile manner. A reporting specialist film of chest was obtained, which was [...] chest. 3.Fluoroscopy-guided placement of single lumen 8 Ugandan x 20 cm chestpower port via the right internal jugular vein. Fluoroscopic time: 0.1 minutes Procedure details: The procedure, risks, and possible complications were explained to the patient in detail and informed consent was obtained. The patient wasplaced supine on the angiography table. . The right neck and upper chest were prepped and draped in the usual sterile manner. A reporting specialist film of chestwas obtained, which was unremarkable. [...] the procedure well [facility]. There were no immediate complicationsassociated with the procedure. Impression: Successful placement of a single lumen 8 Ugandan x 20 cmchest power port via the right internal jugular vein under ultrasound and fluoroscopic guidance, as described above. Note: Keep the dressing clean and dry for 5 days. Recommend port access after 5 days to minimize infection and allow better healing. Francisca Lanier PA, was present and performed/supervised the entire procedure > Dictated by Aguila Pritchett (Towboat Engineer) 07/15/2022 1:38 PM ITin DO have personally reviewed and interpreted this examination/study. > Interpreting Provider: Tin Sterling DO on 07/15/2022 3:31 PM Shreyas Phillips MD IR ORDERABLES * PATHOLOGY TISSUE (06/08/2022 11:19 AM CDT) Case Report Surgical Pathology Report Case: [id number] Authorizing Provider: Chris Julian MD Collected: 06/08/2022 11:19 AM Ordering Location: [facility] Received: 06/10/2022 11:21 AM Pathologist: Reshma Singh MD Specimen: Lymph Node Biopsy, CT Biopsy Left Lymph Node 06/11/2022 10:47 AM CDT [facility] Final Diagnosis Lymph node, left paracolic, needle core biopsy: - Limited specimen with involvement by a JA25-tiglvpsa mature B-cell lymphoma - See description and [...] Ki-67 is estimated at 50%. [facility] ([facility], [address] [place], [place] [address]) is reported to show an atypical IX60-nfojilao population that lacks surface immunoglobulin light chain expression. 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 Given the limited nature of the specimen, the differential diagnosis includes diffuse large B-cell lymphoma, a high grade B-cell lymphoma, and follicular lymphoma. FISH testing for abnormalities of MYC, BCL-2, and BCL-6 is recommended as a next step if [facility]. There is insufficient residual tissue present [...] Clinical correlation is advised. 06/11/2022 10:47 AM [facility] Clinical History Retroperitoneal lymphadenopathy. 06/11/2022 10:47 AM [facility] Materials Received Received for initial diagnosis are two slides and one block (A1) labeled [id number] along with a copy of the outside pathology report. The materials originate from [facility]. All original materials are returned to the referring institution, along with a copy of our final report. 06/11/2022 10:47 AM [facility] Disclaimer The performance characteristics of all immunohistochemical and indirect immunofluorescence stains (if any) cited in this report were determined by the Histopathology Laboratory of [facility]. Some of these tests were developed [...] attending (teaching) pathologist. 06/11/2022 10:47 AM CDT [facility] Embedded Images 06/11/2022 10:47 AM CDT [facility] Pathology/Cytolo gy BIOPSY OF LYMPH NODE / Unknown 06/08/2022 11:19 AM CDT 06/10/2022 11:21 AM CDT Chris Julian MD LAB - PATHOLOGY/CYTO LOGY ORDERABLES [facility] [address] [place], [place] [id number] [place] [address] Care Teams Chainstitch Felled Seam Operator Relationship Specialty Start Date End Date Agustin Flor MD [address] [place] [id number] PCP - General General Medicine 06/28/22 [place] [address] [place] [phone] Physician Hematology and Oncology 03/23/23 Bebe Hernandez, PA-C [address] [place] [address] Physician Shoe Lining Fitter Physician Shoe Lining Fitter 03/23/23 Nanda Rausch, RN Registered Nurse 03/23/23
--- OUTSIDE RECORDS SUMMARY | 2024-06-11 16:50 | XMS_ITS | Clinical Summary ---
Author Organization [facility] Medical Office Building B Address [address] [place] [address] Care Team Providers Care Mushroom Farmer Name Role Phone Agustin Flor MD Primary Care Provider + [phone] Annie Simpson MD Unavailable [phone] Allergies Active Allergy Reactions Criticality Noted Date [...] nightly 11/13/19 23 Active FreeStyle Ron 3 [place] misc 2 (two) times a day 10/03/19 [...] 02/22/2024 Assessment & Plan (02/22/2024 9:06 AM TUNNEL KILN FIRER): She has followed with cardiology and has now seen a surgeon with plans for repair in the next several months We will reassess her dyspnea after her recovery from this procedure Centrilobular emphysema 02/22/2024 Assessment & Plan (02/22/2024 9:05 AM TUNNEL KILN FIRER): Continue Trelegy Ellipta 100 daily Albuterol as [...] 02/21 Assessment & Plan (02/22/2024 9:06 AM TUNNEL KILN FIRER): Last CT chest in November of 2023 [...] Department Care Team Description 05/29/2024 8:00 AM TUNNEL KILN FIRER - 05/29/2024 10:00 AM TUNNEL KILN FIRER Surgery [facility] Cardiac [facility]atheterization Lab [address] [place] [address] Gallo Diehl MD ATRIAL SEPTAL DEFECT (ASD), PATENT FORAMEN OVALE (PFO), FENESTRATION CLOSURE [id number] 05/29/2024 7:59 AM TUNNEL KILN FIRER - 05/29/2024 11:59 PM TUNNEL KILN FIRER Hospital Encounter [facility]atheter[facility] [address] [place] [address] Discharge Disposition: Discharge to home or self care 05/29/2024 7:57 AM TUNNEL KILN FIRER Anesthesia Event [facility] [address] [place] [address] Chavez Chiu MD Eldin, Ali S., MD 05/29/2024 5:33 AM TUNNEL KILN FIRER - 05/30/2024 11:37 AM TUNNEL KILN FIRER Hospital Encounter [address] [address] Gallo Diehl MD PFO (patent foramen ovale) Discharge Disposition: Discharge to home or self care 05/25/2024 9:45 AM TUNNEL KILN FIRER Pre-Admission Testing [facility] Pre Anesthesia Testing [address] [place] [id number] Pre-op testing (Primary Dx) 05/24/2024 1:09 PM TUNNEL KILN FIRER - 05/24/2024 11:59 PM TUNNEL KILN FIRER Hospital Encounter [facility] [address] [place] [address] Right foot pain Discharge Disposition: Discharge to home or self care 05/24/2024 1:05 PM TUNNEL KILN FIRER - 05/24/2024 11:59 PM TUNNEL KILN FIRER Hospital Encounter [facility] [address] [place] [address] Left foot pain Discharge Disposition: Discharge to home or self care 05/24/2024 12:30 PM TUNNEL KILN FIRER Office Visit [facility] Orthopaedic Surgery [address] [place] [address] 2nd Floor [address] [place] [phone] Lakia Riddle MD Left foot pain (Primary Dx); Right foot pain; Acquired equinovarus deformity of left foot; Acquired equinovarus deformity of right foot 05/15/2024 Orders Only [facility] [address] [place] [address] Gallo Diehl MD PFO (patent foramen ovale) (Primary Dx) 03/14/2024 3:16 PM TUNNEL KILN FIRER - 03/14/2024 11:59 PM TUNNEL KILN FIRER Hospital Encounter [facility] [address] [place] [address] Discharge Disposition: Discharge to home or self care 03/14/2024 3:15 PM TUNNEL KILN FIRER - 03/14/2024 11:59 PM TUNNEL KILN FIRER Hospital Encounter [facility]) [address] [place] [address] Discharge Disposition: Discharge to home or self care 03/14/2024 3:15 PM TUNNEL KILN FIRER - 03/14/2024 11:59 PM TUNNEL KILN FIRER Hospital Encounter [facility] ([facility] [place]) [address] [place] [address] Discharge Disposition: Discharge to home or self care 03/14/2024 3:14 PM TUNNEL KILN FIRER - 03/14/2024 11:59 PM TUNNEL KILN FIRER Hospital Encounter [facility] ([facility]) [address] [place] [address] Discharge Disposition: Discharge to home or self care 03/14/2024 3:13 PM TUNNEL KILN FIRER - 03/14/2024 11:59 PM TUNNEL KILN FIRER Hospital Encounter [facility] ([facility]) [address] [place] [address] Discharge Disposition: Discharge to home or self care 03/14/2024 3:12 PM TUNNEL KILN FIRER - 03/14/2024 11:59 PM TUNNEL KILN FIRER Hospital Encounter [facility] ([facility]) [address] [place] [address] Discharge Disposition: Discharge to home or self care from Last 3 Months Surgical History Surgery Date Site/Laterality Comments PORT PLACEMENT CHEST >5 YEARS 07/15/2022 N/A removed 03/2024 CARDIAC STENT PLACEMENT OTHER SURGICAL HISTORY 03/28/2023 - 03/27/2024 LOOP recorder placement HYSTERECTOMY EYE SURGERY Bilateral cataracts CARDIAC CATHETERIZATION 05/29/2024 N/A Procedure: ATRIAL SEPTAL DEFECT (ASD), PATENT FORAMEN OVALE (PFO), FENESTRATION CLOSURE [id number]; Surgeon: Gallo Diehl MD; 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; Service: Cardiovascular; Laterality: N/A; Medical devices from [...] on file Legal Sex Female 9:14 PM TUNNEL KILN FIRER Gender Identity Not on file Sexual Orientation Not on file Obstetrics History Last Filed Vital Signs Vital Sign Reading Time Taken Comments Blood Pressure 118/62 05/30/2024 7:40 AM TUNNEL KILN FIRER Pulse 74 05/30/2024 9:02 AM TUNNEL KILN FIRER Temperature 37.4 C (99.4 F) 05/30/2024 7:40 AM TUNNEL KILN FIRER Respiratory Rate 18 05/30/2024 7:40 AM TUNNEL KILN FIRER Oxygen Saturation 95% 05/30/2024 7:40 AM TUNNEL KILN FIRER Inhaled Oxygen Concentration - - Weight 57.6 kg (126 lb 15.8 oz) 05/30/2024 5:45 AM TUNNEL KILN FIRER Height 162.6 cm (5' 4 ) 05/29/2024 6:49 AM TUNNEL KILN FIRER Body Mass Index 21.8 05/29/2024 6:49 AM TUNNEL KILN FIRER Plan of Treatment Health Maintenance Due Date [...] 01/21/2022, 03/2014 Medical Devices Implanted Type Area Service Operator Device Identifier Shelf Expiration Date Model / Serial / Lot [employer] Occluder Amplatzer Talisman Pfo 25-18mm [id number] - [id number] Implanted:Qty: 1 on 05/29/2024 by Gallo Diehl MD at [facility] Septal Defect Closure Device [employer] 03/27/2025 [id number] / / [employer] System Closure Repair Femoral Artery Suture Mediated Perclose Prostyle 92064-00 - [id number] Implanted:Qty: 1 on 05/29/2024 by Gallo Diehl MD at [facility] [employer] 02/24/2026 [id number] / / [id number] Procedures Procedure Name Priority Date/Time Associated Diagnosis Comments TRANSTHORACIC ECHO (TTE) LIMITED/FOLLOW UP W LTD DOPPLER/CF WO CONTRAST Routine 05/30/2024 8:27 AM TUNNEL KILN FIRER POCT GLUCOSE DEVICE Routine 05/30/2024 8 :18 AM TUNNEL KILN FIRER EGFR Routine 05/30/2024 4:01 AM TUNNEL KILN FIRER DIFFERENTIAL AUTO Routine 05/30/2024 4:0 1 AM TUNNEL KILN FIRER CBC WITH AUTO DIFFERENTIAL Routine 05/30/2024 4:01 AM TUNNEL KILN FIRER BASIC METABOLIC PANEL Routine 05/30/2024 4:01 AM TUNNEL KILN FIRER POCT GLUCOSE DEVICE Routine 05/29/2024 9 :18 PM TUNNEL KILN FIRER POCT GLUCOSE DEVICE Routine 05/29/2024 5 :54 PM TUNNEL KILN FIRER POCT GLUCOSE DEVICE Routine 05/29/2024 1 2:52 PM TUNNEL KILN FIRER POCT GLUCOSE DEVICE Routine 05/29/2024 8 :58 AM TUNNEL KILN FIRER ATRIAL SEPTAL DEFECT CLOSURE Routine 05/29/2024 8:38 AM TUNNEL KILN FIRER PFO (patent foramen ovale) AK AN ELECTIVE ENDOTRACHEAL AIRWAY Routine 05/29/2024 8:12 AM TUNNEL KILN FIRER ECG 12-LEAD Routine 05/29/2024 7:03 AM TUNNEL KILN FIRER POCT GLUCOSE DEVICE Routine 05/29/2024 6 :38 AM TUNNEL KILN FIRER URINALYSIS AND REFLEX TO MICROSCOPIC AND CULTURE Routine 05/25/2024 12:12 PM TUNNEL KILN FIRER Pre-op testing XR FOOT RIGHT 3 OR MORE VIEWS Schedule Routine, Read Routine (OP Routine) 05/24/2024 1:24 PM TUNNEL KILN FIRER Left foot pain XR FOOT LEFT 3 OR MORE VIEWS Schedule Routine, Read Routine (OP Routine) 05/24/2024 1:24 PM TUNNEL KILN FIRER Right foot pain XR TRANSFER OF OUTSIDE FILMS Routine 03/14/2024 3:16 PM TUNNEL KILN FIRER XR TRANSFER OF OUTSIDE FILMS Routine 03/14/2024 3:15 PM TUNNEL KILN FIRER XR TRANSFER OF OUTSIDE FILMS Routine 03/14/2024 3:15 PM TUNNEL KILN FIRER XR TRANSFER OF OUTSIDE FILMS Routine 03/14/2024 3:14 PM TUNNEL KILN FIRER XR TRANSFER OF OUTSIDE FILMS Routine 03/14/2024 3:13 PM TUNNEL KILN FIRER XR TRANSFER OF OUTSIDE FILMS Routine 03/14/2024 3:12 PM TUNNEL KILN FIRER HEMOGLOBIN A1C Routine 04/12/2018 5:45 AM TUNNEL KILN FIRER LIPID PANEL Routine 04/12/2018 5:45 AM TUNNEL KILN FIRER from Last 3 Months or Most Recently Relevant to Health Maintenance Results * TRANSTHORACIC ECHO (TTE) LIMITED/FOLLOW UP W LTD DOPPLER/CF WO CONTRAST (05/30/2024 8:27 AM TUNNEL KILN FIRER) Anatomical Region Laterality Modality Ultrasound 05/30/2024 7:49 AM TUNNEL KILN FIRER Narrative 05/30/2024 12:27 [place] [address] Limited Echocardiogram Report Patient Name: PAULA ORELLANA S : 1960 Study Date: 05/30/2024 7:49:55 AM Gender: F Tech: THAD Location: [id number] Ref Provider: GALLO DIEHL Height(Cm): 163 BSA: [...] DO, JACINDA, LOU VOGEL 05/30/2024 12:27:25 PM TUNNEL KILN FIRER Procedure Note Zeina Zamora DO - 05/30/2024 [place] [address] Limited Echocardiogram Report Patient Name: PAULA ORELLANA S : 1960 Study Date: 05/30/2024 7:49:55 AM Gender: F Tech: THAD Location: [id number] Ref Provider: BROOK DIEHLIQ Height(Cm): 163 BSA: [...] DO, JACINDA, LOU VOGEL 05/30/2024 12:27:25 PM TUNNEL KILN FIRER Gallo Diehl MD CV ECHO PROCEDURES Final Result * POCT glucose (05/30/2024 8:18 AM TUNNEL KILN FIRER) [facility] Signature Glucose, POC 127 70 - 199 mg/dL Blood 05/30/2024 8:18 AM TUNNEL KILN FIRER 05/30/2024 8:18 AM TUNNEL KILN FIRER Gallo Diehl MD LAB POCT ORDERABLES - DEVICE Fi nal Result [facility]RASHER [address] Department [place] [address] * eGFR (05/30/2024 4:01 AM TUNNEL KILN FIRER) eGFR 61 >=60 mL/min/1. 73 m2 Comment: [...] last reviewed 2021. Blood 05/30/2024 4:01 AM TUNNEL KILN FIRER 05/30/2024 4:33 AM TUNNEL KILN FIRER us Gallo Diehl MD LAB BLOOD ORDERABLES Final Resu lt [facility] [address] Department [place] [address] * Differential, auto (05/30/2024 4:01 AM TUNNEL KILN FIRER) Neutrophil abs 6.5 1.5 - 6.5 K/cumm Imm gran abs 0.0 0.0 - 0.1 K/cumm [facility] Lymphocyte abs 1.2 0.8 - 3.3 K/cumm [facility] Monocyte abs 0.6 0.2 - 0.8 K/cumm [facility] Eosinophil abs 0.0 0.0 - 0.5 K/cumm [facility] Basophil abs 0.0 0.0 - 0.1 K/cumm [facility] Neutrophil pct 77.2 % [facility] Comment: Interpretive Data Percent cell count [...] revised on 2017. Blood 05/30/2024 4:01 AM TUNNEL KILN FIRER 05/30/2024 4:12 AM TUNNEL KILN FIRER us Gallo Diehl MD LAB BLOOD ORDERABLES Final Resu lt [facility] [address] Department of Laboratories [place], [place] [id number] * (ABNORMAL) CBC with auto differential (05/30/2024 4:01 AM TUNNEL KILN FIRER) WBC 8.5 3.8 - 9.9 K/cumm Hgb 11.8(L) 11.9 - 15.5 g/dL [facility] Hct 37.2 35.6 - 45.5 % [facility] Plt 176 150 - 400 K/cumm [facility] MPV 9.0(L) 9.1 - 12.3 fL [facility] RBC 4.07 3.90 - 5.20 M/cumm [facility] MCV 91.4 81.3 - 96.4 fL [facility] MCH 29.0 27.1 - 33.3 pg [facility] MCHC 31.7(L) 32.3 - 35.7 g/dL [facility] RDW CV 14.6 11.1 - 14.9 % [facility] RDW SD 48.1 35.7 - 48.1 fL [facility] NRBC abs 0.00 0.00 - 0.01 K/cumm [facility] Blood 05/30/2024 4:01 AM TUNNEL KILN FIRER 05/30/2024 4:12 AM TUNNEL KILN FIRER us Gallo Diehl MD LAB BLOOD ORDERABLES Final Resu lt [facility] [address] Department [place] [address] * Basic metabolic panel (05/30/2024 4:01 AM TUNNEL KILN FIRER) Sodium 141 135 - 145 mmol/L Potassium, pl 3.8 3.3 - 4.9 mmol/L [facility] Chloride 103 97 - 110 mmol/L [facility] CO2 25 22 - 32 mmol/L [facility] Anion gap 13 2 - 15 mmol/L [facility] BUN 22 6 - 25 mg/dL [facility] Creatinine 1.02 0.60 - 1.10 mg/dL [facility] Glucose 128 70 - 199 mg/dL [facility] Comment: Interpretive Data Fasting glucose >/= 126 [...] 2022. Calcium 9.8 8.5 - 10.3 mg/dL [facility] Blood 05/30/2024 4:01 AM TUNNEL KILN FIRER 05/30/2024 4:33 AM TUNNEL KILN FIRER us Gallo Diehl MD LAB BLOOD ORDERABLES Final Resu lt Performing Organization Address [facility] de Phone Number EVANSTEENA [address] [facility] [place] [address] * (ABNORMAL) POCT glucose (05/29/2024 9:18 PM TUNNEL KILN FIRER) Glucose, POC 213(H) 70 - 199 mg/dL Blood 05/29/2024 9:18 PM TUNNEL KILN FIRER 05/29/2024 9:18 PM TUNNEL KILN FIRER us Gallo Diehl MD LAB POCT ORDERABLES - DEVICE Fi nal Result Performing Organization Address [facility] de Phone Number EVANSTEENA [address] [facility] [place] [address] * POCT glucose (05/29/2024 5:54 PM TUNNEL KILN FIRER) Glucose, POC 115 70 - 199 mg/dL Blood 05/29/2024 5:54 PM TUNNEL KILN FIRER 05/29/2024 5:54 PM TUNNEL KILN FIRER us Gallo Diehl MD LAB POCT ORDERABLES - DEVICE Fi nal Result Performing Organization Address [facility] de Phone [facility] [address] [address] [facility] [place] [address] * (ABNORMAL) POCT glucose (05/29/2024 12:52 PM TUNNEL KILN FIRER) Glucose, POC 224(H) 70 - 199 mg/dL Blood 05/29/2024 12:5 2 PM TUNNEL KILN FIRER 05/29/2024 12:52 PM TUNNEL KILN FIRER us Gallo Diehl MD LAB POCT ORDERABLES - [place] [address] [address] Department [place] [address] * POCT glucose (05/29/2024 8:58 AM TUNNEL KILN FIRER) Glucose, POC 120 70 - 199 mg/dL Blood 05/29/2024 8:58 AM TUNNEL KILN FIRER 05/29/2024 8:58 AM TUNNEL KILN FIRER Gallo Diehl MD LAB POCT ORDERABLES - DEVICE Fi nal Result Performing Organization Address [facility] [place] [address] [address] Department [place] [address] * ATRIAL SEPTAL DEFECT CLOSURE (05/29/2024 8:38 AM TUNNEL KILN FIRER) Anatomical Region Laterality Modality X-Ray Angiograph y Narrative 05/29/2024 8:48 AM TUNNEL KILN FIRER Table formatting from the original result was not included. ATRIAL SEPTAL DEFECT (ASD), PATENT FORAMEN OVALE (PFO), FENESTRATION CLOSURE [id number] Brief Op Note Attending Bulb Inspector: Gallo Diehl MD Primary: Gallo Diehl MD CV Documenter: Selam Hernández RN CV Scrub: Ezra Douglass; Avis Lance CV Blanchard Grinder Operator: Patricia Bowen RN; Shawna Cooper RN Date of Procedure: 05/29/2024 Specimens: No specimen collected in procedure Preoperative Diagnosis: Pre-op Diagnosis * PFO (patent foramen ovale) [Q21.12] Postoperative Diagnosis: Post-op Diagnosis * PFO (patent foramen ovale) [Q21.12] Name of Procedure: Procedure(s): ATRIAL SEPTAL DEFECT (ASD), PATENT FORAMEN OVALE (PFO), FENESTRATION CLOSURE [id number] Implants: Implant Name Type Inv. Item Serial No. Service Operator Lot No. LRB No. Used Action [employer] System Closure Repair Femoral Artery Suture Mediated Perclose Prostyle 81194-75 - [id number] [employer] System Closure Repair Femoral Artery Suture Mediated Perclose Prostyle 61249-63 [employer] [id number] N/A 1 Implanted [employer] Occluder Amplatzer Talisman Pfo 25-18mm [id number] - [id number] Septal Defect Closure Device [employer] Occluder [...] was proctored by Dr. Brandan Cifuentes from [facility]. COMPLICATIONS: None ESTIMATED BLOOD LOSS: 5 mL [...] MD Date: 05/29/2024 Time: 8:43 AM Result [facility] Gallo Diehl MD CV CARDIAC CATH PROCEDURES Yuli l Result * AK AN ELECTIVE ENDOTRACHEAL AIRWAY (05/29/2024 8:12 AM TUNNEL KILN FIRER) Narrative Gerald Retana AA - 05/29/2024 8:12 AM TUNNEL KILN FIRER Gerald Retana AA 05/29/2024 8:13 AM Airway [...] * ECG 12 lead (05/29/2024 7:03 AM TUNNEL KILN FIRER) 05/29/2024 7:03 AM TUNNEL KILN FIRER Narrative [facility] - 05/29/2024 11:11 AM TUNNEL KILN FIRER Vent Rate: 68 bpm RR Interval: 878 msec [place] Interval: 184 msec QRS Duration: 97 msec QT Interval: 425 msec QTC Interval: 442 msec P-R-T [place]: 72 - -19 - 60 degrees IMPRESSION: SINUS RHYTHM SEPTAL MYOCARDIAL INFARCTION , PROBABLY OLD VERSUS POOR R-WAVE PROGRESSION ABNORMAL ECG Electronically Signed By: Pantera Wiggins MD Gallo Diehl MD ECG ORDERABLES Final Result [facility] * POCT glucose (05/29/2024 6:38 AM TUNNEL KILN FIRER) Glucose, POC 111 70 - 199 mg/dL Blood 05/29/2024 6:38 AM TUNNEL KILN FIRER 05/29/2024 6:38 AM TUNNEL KILN FIRER Gallo Diehl MD LAB POCT ORDERABLES - DEVICE Fi nal Result [facility] [address] Department [place] [address] * Urinalysis reflex to microscopic and culture Urine, clean voided (05/25/2024 12:12 PM TUNNEL KILN FIRER) Color, ur Straw Yellow Clarity, ur Clear [...] tendency for uric acid stone formation. Source: [facility] [employer] Current Interpretive Data was last revised on [...] CH Urine, clean voided 05/25/2024 12:12 PM TUNNEL KILN FIRER 05/25/2024 12:21 PM TUNNEL KILN FIRER us Marianne Matos NP LAB MICROBIOLOGY - GENERAL ORD ERABLES Final Result [facility] [address] Department [place] [address] * XR Foot Right 3 or More Views (05/24/2024 1:24 PM TUNNEL KILN FIRER) Anatomical Region Laterality Modality Lower Extremities, Foot Right Computed Radiography 05/24/2024 1:31 PM TUNNEL KILN FIRER Impressions 05/24/2024 1:31 PM TUNNEL KILN FIRER 1. 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 2. Apparent lesser hammertoe deformities with ankle fixed in plantar flexion on these nonweightbearing images. Electronically signed by: Maximus Murry MD Narrative 05/24/2024 1:31 PM TUNNEL KILN FIRER EXAMINATION: XR FOOT LEFT 3 OR MORE [...] 3 or More Views (05/24/2024 1:24 PM TUNNEL KILN FIRER) Anatomical Region Laterality Modality Lower Extremities, Foot Left Computed Radiography 05/24/2024 1:31 PM TUNNEL KILN FIRER Impressions 05/24/2024 1:31 PM TUNNEL KILN FIRER 1. 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 2. Apparent lesser hammertoe deformities with ankle fixed in plantar flexion on these nonweightbearing images. Electronically signed by: Maximus Murry MD Narrative 05/24/2024 1:31 PM TUNNEL KILN FIRER EXAMINATION: XR FOOT LEFT 3 OR MORE [...] * XR Outside Reference (03/14/2024 3:16 PM TUNNEL KILN FIRER) Impressions [facility] - 03/14/2024 3:16 PM TUNNEL KILN FIRER These images are for Reference purposes only and have not been reviewed by [facility] Radiology. There will be no report generated by a [facility] Radiologist. Narrative [facility] - 03/14/2024 3:16 PM TUNNEL KILN FIRER EXAMINATION: Images For Reference Purposes Only Lakia Riddle MD IMG XR PROCEDURES Final Re sult Performing Organization Address [facility] Co de Phone Number [email or web address] * XR Outside Reference (03/14/2024 3:15 PM TUNNEL KILN FIRER) Impressions [facility] - 03/14/2024 3:15 PM TUNNEL KILN FIRER These images are for Reference purposes only and have not been reviewed by [facility] Radiology. There will be no report generated by a [facility] Radiologist. Narrative [facility] - 03/14/2024 3:15 PM TUNNEL KILN FIRER EXAMINATION: Images For Reference Purposes Only us Lakia Riddle MD IMG XR PROCEDURES Final Re sult Performing Organization Address [facility] Co de Phone Number [email or web address] * XR Outside Reference (03/14/2024 3:15 PM TUNNEL KILN FIRER) Impressions [facility] - 03/14/2024 3:15 PM TUNNEL KILN FIRER These images are for Reference purposes only and have not been reviewed by [facility] Radiology. There will be no report generated by a [facility] Radiologist. Narrative [facility] - 03/14/2024 3:15 PM TUNNEL KILN FIRER EXAMINATION: Images For Reference Purposes Only us Lakia Riddle MD IMG XR PROCEDURES Final Re sult Performing Organization Address [facility] Co de Phone Number [email or web address] * XR Outside Reference (03/14/2024 3:14 PM TUNNEL KILN FIRER) Impressions [facility] - 03/14/2024 3:14 PM TUNNEL KILN FIRER These images are for Reference purposes only and have not been reviewed by [facility] Radiology. There will be no report generated by a [facility] Radiologist. Narrative [facility] - 03/14/2024 3:14 PM TUNNEL KILN FIRER EXAMINATION: Images For Reference Purposes Only Lakia Riddle MD IMG XR PROCEDURES Final Re sult Performing Organization Address [facility] Co de Phone Number [email or web address] * XR Outside Reference (03/14/2024 3:13 PM TUNNEL KILN FIRER) Impressions [facility] - 03/14/2024 3:13 PM TUNNEL KILN FIRER These images are for Reference purposes only and have not been reviewed by [facility] Radiology. There will be no report generated by a [facility] Radiologist. Narrative [facility] - 03/14/2024 3:13 PM TUNNEL KILN FIRER EXAMINATION: Images For Reference Purposes Only us Lakia Riddle MD IMG XR PROCEDURES Final Re sult Performing Organization Address [facility] Co de Phone Number [email or web address] * XR Outside Reference (03/14/2024 3:12 PM TUNNEL KILN FIRER) Impressions [facility] - 03/14/2024 3:12 PM TUNNEL KILN FIRER These images are for Reference purposes only and have not been reviewed by [facility] Radiology. There will be no report generated by a [facility] Radiologist. Narrative [facility] - 03/14/2024 3:12 PM TUNNEL KILN FIRER EXAMINATION: Images For Reference Purposes Only us Lakia Ridlde MD IMG XR PROCEDURES Final Re sult Performing Organization Address [facility] Co de Phone Number [email or web address] * (ABNORMAL) Hemoglobin A1c (04/12/2018 5:45 AM TUNNEL KILN FIRER) Hemoglobin A1c % 5.9(H) 4.0 - 5.6 % 04/12/2018 6:40 AM [facility] [employer] HISTORICAL RESULTS Comment: ADA 2016 GUIDELINES: Initial Diagnostic Criteria HbA1c Result: Interpretation: <5.7% Normal 5.7-6.4% At risk for diabetes mellitus >=6.5% Consistent with diabetes mellitus Diabetes monitoring Target value (ADA Recommended) <7% 04/12/2018 5:45 AM TUNNEL KILN FIRER 04/12/2018 6:02 AM TUNNEL KILN FIRER Narrative [facility] [employer] HISTORICAL RESULTS - 04/12/2018 6:40 AM TUNNEL KILN FIRER Comment In AM us Guicho Nova MD LAB BLOOD ORDERABLES Final Resul t Performing Organization Address [facility] de Phone Number [facility] [employer] HISTORICAL RESULTS * Lipid panel (04/12/2018 5:45 AM [employer]) Triglycerides 124 0 - 149 mg/dL 04/12/2018 6:42 AM [facility] [employer] HISTORICAL RESULTS Comment: National Lipid Association/NCEP Guidelines: Normal < 150 mg/dL Borderline high 150-199 mg/dL High 200-499 mg/dL Very High >=500 mg/dL Cholesterol 118 0 - 199 mg/dL 04/12/2018 6:42 AM [facility] [employer] HISTORICAL RESULTS Comment: National Lipid Association/NCEP Guidelines: Desirable < 200 mg/dL Borderline high: 200-239 mg/dL High Risk: >=240 mg/dL HDL Cholesterol 52 mg/dL 9 6:42 AM [employer] [facility] HISTORICAL RESULTS Comment: Reference Ranges: Males: >=40 mg/dL Females: >=50 mg/dL LDL Cholesterol, Calc 41 0 - 129 mg/dL Comment: National Lipid Association/NCEP Guidelines: Optimal < 100 mg/dL Near Optimal 100-129 mg/dL Borderline high 130-159 mg/dL High >=160 mg/dL Cholesterol/HDL Ratio 2.3 Comment: Optimal < 3.5:1 High > 5:1 04/12/2018 5:45 AM [employer] 04/12/2018 6:02 AM [employer] Narrative [facility] HISTORICAL RESULTS - 04/12/2018 6:42 AM [employer] Comment In AM Guicho Nova MD LAB BLOOD ORDERABLES Final Resul t [facility] HISTORICAL RESULTS from Last 3 Months or Most Recently Relevant to Health Maintenance Insurance [facility] MEDICARE SOLUTIONS [facility] MEDICARE Address: [address] [address] [place] [address] MEDICARE SOLUTIONS IDPA Advance Directives For more information, please contact: [phone] * Full Code (Latest Code Status on File) Date Activated Date Inactivated Comments 05/29/2024 10:10 AM 05/30/2024 3:37 PM Care Teams Mushroom Farmer Relationship Specialty Start Date End Date Agustin Flor MD PCP - General Internal Medicine 06/28/22 Annie Simpson MD [address] [place] [address] Consulting Physician Cardiology 05/30/24
--- OUTSIDE RECORDS SUMMARY | 2024-06-11 16:50 | XMS_ITS | Referral Summary ---
Author Organization [facility] Address [address] [place] [address] Care Team Providers Care Eyeglass Lens Cutter Name Role Phone Agustin Flor MD Primary Care Provider [phone] Shreyas Phillips MD Unavailable Bebe HernandezC Unavailable [phone] Nanda Rausch RN Unavailable Unavailable Source Comments [facility],non-owned Affiliates and Associated Physician Practices is amultiple site organization consisting of ambulatory clinics and hospital sitesin [place], [place], [place] and [place]. This disclosure is being madepursuant to the Care Everywhere program and may not contain all information available regarding this patient. Last updated 17.[facility] Encounters Date Type Department Care Team Description 05/28/2024 Travel 05/28/2024 11:00 AM [employer] - 05/28/2024 11:59 PM [employer] [employer] Hospital Encounter [facility] [address] [place] [address] Shreyas Phillips MD Discharge Disposition: Home or Self Care 04/26/2024 Travel 04/26/2024 6:01 AM [employer] - 04/26/2024 9:05 AM [employer] Hospital Encounter [facility] [address] [place] [address] Shreyas Phillips MD Interven Radiology Discharge Disposition: Home or Self Care 03/22/2024 Orders Only [facility] [address] [place] [phone] Nanda Rausch, RN B-cell lymphoma, unspecified B-cell lymphoma type, unspecified body region (HCC) 03/19/2024 Orders Only [facility] [address] [place] [phone] Nanda Rausch RN B-cell lymphoma, unspecified B-cell lymphoma type, unspecified body region (HCC) 03/16/2024 Travel 03/16/2024 2:20 PM ST[employer] CLE[employer]ER [employer]UBE - 03/16/2024 11:59 PM [facility] [facility] Hospital Encounter [facility] [address] [place] [phone] Shreyas Phillips MD Discharge Disposition: Home or Self Care 03/15/2024 Telephone [facility] [address] [place] [address] Emeli Forrester 03/15/2024 Orders Only [facility] [address] [place] [address] Shreyas Phillips MD 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 Not very hard 11/20/2022 [facility] of Occupat ional Health - Occupational Stress [...] place to sleep or slept in a fdc (including now)? No 11/20/2022 Sex and Gender Information Value Date Recorded Sex Assigned at Not on file Gender Identity Female 08/19/2023 1:35 PM CDT Sexual Orientation Not on file Last Filed Vital Signs Vital Sign Reading Time Taken Comments Blood Pressure 140/83 04/26/2024 8:50 AM [employer] Pulse 68 04/26/2024 8:50 AM [employer] Temperature 36.6 C (97.8 F) 04/26/2024 8:31 AM [employer] Respiratory Rate 12 04/26/2024 8:50 AM [employer] [employer] Oxygen Saturation 94% 04/26/2024 8:50 AM [employer] Inhaled Oxygen Concentration - - Weight 62.6 kg (138 lb) 04/26/2024 6:18 AM ST[employer] CLE[employer] Height 163.8 cm (5' 4.5 ) 04/26/2024 6:18 AM [employer] Body Mass Index 23.32 04/26/2024 6:18 AM ST[employer] CLE[employer]BE Functional Status Functional Status Response Date of [...] Info) Description 06/15/2024 11:40 AM CDT Appointment [facility] [address] [place] [address] Shreyas Phillips MD [address] [place] [address] Medical Devices Implanted Type Area Milk Tester Device Identifier Shelf Expiration Date Model / Serial / Lot Port Implinfn Powerport Clrvu Argd Kika Implanted:Qty: 1 on 07/15/2022 at [facility] Right: Chest [employer] 11/26/2023 [id number] / / [id number] Description:RIJ by Milena Spivey inton Procedures Procedure Name Priority Date/Time Associated Diagnosis Comments CT CHEST ABDOMEN PELVIS W CONT Routine 05/28/2024 11:38 AM [facility] History of non-Hodgkin's lymphoma CREATININE - POCT INTERFACED Routine 05/28/2024 11:26 AM [employer] IR CENTRAL LINE REMOVAL Routine 04/26/2024 8:32 AM [employer]BE B-cell lymphoma, unspecified B-cell lymphoma type, unspecified body region (HCC) GLUCOSE - POINT OF CARE Routine 04/26/2024 6:51 AM ST[employer] CLE[employer] [facility]BE PT-INR [facility] Routine 04/26/2024 6:47 AM ST[employer] CLE[employer]ER TUBE Preop testing LDH BLOOD STAT 03/16/2024 2:26 PM [employer] 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) CBC W AUTO DIFFERENTIAL STAT 03/16/2024 2:26 PM [employer] 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) COMPREHENSIVE METABOLIC PANEL STAT 03/16/2024 2:26 PM [employer] 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) HEMOGLOBIN A1C Routine 02/03/2023 11:03 AM ST[employer] Bilateral foot pain HEPATITIS C RNA QUANTITATIVE STAT 07/16/2022 12:15 PM CDT Non-Hodgkin's lymphoma, unspecified body region, unspecified non-Hodgkin lymphoma type (HCC) High risk for chemotherapy-induced infectious complication from Last 3 Months or Most Recently Relevant to Health Maintenance Results * CT Chest Abdomen Pelvis W Cont (05/28/2024 11:38 AM STILL CLEANER TUBE) Anatomical Region Laterality Modality Chest, Abdomen, Pelvis Computed Tomography 05/28/2024 1:52 PM [employer] Impressions 05/28/2024 4:28 PM [employer] Impression: 1.No evidence of lymphadenopathy in the chest, abdomen, and pelvis. 2.Redemonstrated are multiple hepatic and renal cysts which may be suggestive of polycystic kidney-liver disease. Report was dictated by Jose Lagos MD, (Integrated VIR resident). > Dictated by Jose Lagos MD (Associate Product Integrity Engineer) 05/28/2024 1:52 PM I, Nakul Bridges MD have personally reviewed and interpreted this examination/study. > Interpreting Provider: Nakul Bridges MD on 05/28/2024 4:28 PM Narrative 05/28/2024 4:28 PM ST[employer] CLE[employer]BE PROCEDURE: CT CHEST ABDOMEN PELVIS W CONT, DATE/TIME OF EXAM: 05/28/2024 11:39 AM, LOCATION [facility] INDICATION: Z85.72: History of non-Hodgkin's lymphoma [...] DATE/TIME OF EXAM: 05/28/2024 11:39 AM, LOCATION [facility] INDICATION: Z85.72: History of non-Hodgkin's lymphoma [...] resident). > Dictated by Jose Lagos MD (Associate Product Integrity Engineer) 05/28/2024 1:52 PM I, Nakul Bridges MD have personally reviewed and interpreted this examination/study. > Interpreting Provider: Nakul Bridges MD on 05/28/2024 4:28 PM [address]reyas Phillips MD CT ORDERABLES * CREATININE - POCT INTERFACED (05/28/2024 11:26 AM STILL CLEANER TUBE) Creatinine POCT 0.72 0.30 - 1.30 mg/dL 05/28/2024 11:30 AM STILL CLEANER TUBE [facility] eGFR >90 >=90 mL/min/1.7 3 m2 05/28/2024 11:30 AM STILL CLEANER TUBE [facility] Blood BLOOD SPECIMEN / Unknown 05/28/2024 11:26 AM STILL CLEANER TUBE 05/28/2024 11:30 AM ST[employer] Shreyas Phillips MD LAB - POINT OF CARE ORDERABLES [facility] [address] [place] [address], [facility] [phone] * IR Central Line Removal (04/26/2024 8:32 AM STILL CLEANER TUBE) Anatomical Region Laterality Modality X-Ray Angiograph y 04/26/2024 3:21 PM ST[employer] CLE[employer]ER [employer]BE Impressions 05/07/2024 8:15 AM ST[employer] CLE[employer]BE Impression: Successful removal of a right internal jugular approach since lumen 8 Afghan chest port under fluoroscopic guidance. Note: Keep the dressing clean and dry for 5 days. IDr. Francisca PA, was present and performed/supervised the entire procedure. > Dictated by Aguila Pritchett (Associate Product Integrity Engineer) 04/26/2024 3:21 PM IValeria MD have personally reviewed and interpreted this examination/study. > Interpreting Provider: Valeria Hernandez MD on 05/07/2024 8:15 AM Narrative 05/07/2024 8:15 AM ST[employer] PROCEDURE: IR CENTRAL LINE REMOVAL DATE/TIME OF EXAM: 04/26/2024 8:33 AM CLINICAL INFORMATION: History: This is a 64-year-old -[place] female with a history of lymphoma who previously had a chest port placed for chemotherapy administration. She has completed chemotherapy and remains remission and therefore presents for chest port removal Operators: BIJAL Cartagena Anesthesia: 1.Local anesthesia - 10 mL of 1% Lidocaine 2.Intravenous Anxiolysis- Versed 1 mg and Fentanyl 50 mcg Procedure: Removal of a right internal jugular approach 1 lumen 8 Afghan chest port under fluoroscopic guidance. Fluoroscopic time: 0.1 minutes Procedure details: The procedure, risks, and possible complications were explained to the patient in detail, and informed consent was obtained. The patient was placed supine on the angiography table. The right neck and upper chest were prepped and draped in the usual sterile manner. A pie maker radiograph of the chest was obtained, which [...] procedure well and was transferred to [facility] area in stable condition. There were no immediate complications associated with the procedure. Procedure Note Valeria Hernandez MD - 05/07/2024 PROCEDURE: IR CENTRAL LINE REMOVAL DATE/TIME OF EXAM: 04/26/2024 8:33 AM CLINICAL INFORMATION: History: This is a 64-year-old -[place] female with a history of lymphoma who previously had a chest port placed for chemotherapy administration. She has completed chemotherapy andremains remission and therefore presents for chest port removal Operators: BIJAL Cartagena Anesthesia: 1.Local anesthesia - 10 mL of 1% Lidocaine 2.Intravenous Anxiolysis- Versed 1 mg and Fentanyl 50 mcg Procedure: Removal of a right internal jugular approach 1 lumen 8 Afghan chest port under fluoroscopic guidance. Fluoroscopic time: 0.1 minutes Procedure details: The procedure, risks, and possible complications were explained to the patient in detail, and informed consent was obtained. The patient was placed supine on the angiography table. The right neck and upper chestwere prepped and draped in the usual sterile manner. A pie maker radiograph ofthe chest was obtained, which showed [...] the procedure well [facility]. There were no immediate complicationsassociated with the procedure. Impression: Successful removal of a right internal jugular approachsince lumen 8 Afghan chest port under fluoroscopic guidance. Note: Keep the dressing clean and dry for 5 days. IDr. Francisca PA, was present and performed/supervised the entire procedure. > Dictated by Aguila Pritchett (Associate Product Integrity Engineer) 04/26/2024 3:21 PM IValeria MD have personally reviewed and interpreted this examination/study. > Interpreting Provider: Valeria Hernandez MD on 05/07/2024 8:15 AM Shreyas Phillips MD IR ORDERABLES * GLUCOSE - POINT OF CARE (04/26/2024 6:51 AM STILL CLEANER TUBE) Glucose WB/POC 92 70 - 99 mg/dL 04/26/2024 6:52 AM [facility] Specimen Type Venous 04/26/2024 6:52 AM [facility] Blood BLOOD SPECIMEN / Unknown 04/26/2024 6:51 AM ST[employer] CLE[employer]UBE 04/26/2024 6:52 AM ST[employer] Shreyas Phillips MD LAB - POINT OF CARE ORDERABLES [facility] [address] [place] [address], [facility] [phone] * PT-INR [facility] (04/26/2024 6:47 AM STILL CLEANER TUBE) PT 13.2 12.1 - 14.8 Seconds 04/26/2024 7:20 AM [facility] INR 1.0 See Comment 04/26/2024 7:20 AM [facility] Comment:The suggested therap eutic range for standard coumadin (warfarin) therapy is an INR of 2.0-3.0. For high-risk patients (Mechanical Mitral Valve Prosthesis, etc.), the suggested prophylactic therapeutic range is an INR of 2.5-3.5. Blood BLOOD SPECIMEN / Unknown Venipuncture / Unknown 04/26/2024 6:47 AM ST[employer]BE 04/26/2024 6:51 AM ST[employer] Tyson Sandhu MD LAB - COAGULATION OR DERABLES [facility] [address] [place] [address], [facility] [phone] * (ABNORMAL) CBC W AUTO DIFFERENTIAL (03/16/2024 2:26 PM STILL CLEANER TUBE) WBC 5.4 4.0 - 10.7 x10E9/L 03/17/2024 2:57 AM [facility] RBC Count 4.04 3.90 - 5.20 x10E12/L 03/17/2024 2:57 AM [facility] Hemoglobin 11.4(L) 11.9 - 15.8 g/dL 03/17/2024 2:57 AM [facility] Hematocrit 37.2 34.8 - 46.1 % 03/17/2024 2:57 AM [facility] MCV 92.1 80.0 - 98.0 fL 03/17/2024 2:57 AM [facility] MCH 28.2 26.7 - 33.6 pg 03/17/2024 2:57 AM [facility] MCHC 30.6(L) 31.7 - 36.3 g/dL 03/17/2024 2:57 AM [facility] RDW-CV 14.7 11.3 - 14.8 % 03/17/2024 2:57 AM [facility] Platelet Count 184 150 - 420 x10E9/L 03/17/2024 2:57 AM [facility] MPV 9.5 7.8 - 11.4 fL 03/17/2024 2:57 AM [facility] Preliminary Absolute Neutrophil 3.75 1.60 - 7.50 x10E9/L 03/17/2024 2:57 AM [facility] Neutrophil % 69.9 41.0 - 74.0 % 03/17/2024 2:57 AM [facility] Lymphocyte % 18.4 17.0 - 47.0 % 03/17/2024 2:57 AM [facility] Monocyte % 8.9 3.0 - 11.0 % 03/17/2024 2:57 AM [facility] Eosinophil % 2.0 0.0 - 7.0 % 03/17/2024 2:57 AM [facility] Basophil % 0.4 0.0 - 1.6 % 03/17/2024 2:57 AM [facility] Immature Granulocytes % 0.4 0.0 - 1.0 % 03/17/2024 2:57 AM [facility] Neutrophil Absolute 3.75 1.60 - 7.50 x10E9/L 03/17/2024 2:57 AM [facility] Lymphocyte Absolute 0.99(L) 1.00 - 4.40 x10E9/L 03/17/2024 2:57 AM [facility] Monocyte Absolute 0.48 0.15 - 1.00 x10E9/L 03/17/2024 2:57 AM [facility] Eosinophil Absolute 0.11 0.00 - 0.60 x10E9/L 03/17/2024 2:57 AM [facility] Basophil Absolute 0.02 0.00 - 0.13 x10E9/L 03/17/2024 2:57 AM [facility] Blood BLOOD SPECIMEN / Unknown Venipuncture / Unknown 03/16/2024 2:26 PM STILL CLEANER TUBE 03/17/2024 2:52 AM [facility] Shreyas Phillips MD LAB - HEMATOLOGY ORD ERABLES Performing Organization Address [facility]/State/[facility] Co de Phone Number [facility] [address] [place] [address] [phone] * (ABNORMAL) COMPREHENSIVE METABOLIC PANEL (03/16/2024 2:26 PM STILL CLEANER TUBE) BUN 18 7 - 26 mg/dL 03/17/2024 3:20 AM [facility] Creatinine 0.86 0.56 - 0.96 mg/dL 03/17/2024 3:20 AM [facility] Sodium 141 136 - 145 mmol/L 03/17/2024 3:20 AM [facility] Potassium 3.9 3.5 - 4.5 mmol/L 03/17/2024 3:20 AM [facility] Chloride 108(H) 98 - 107 mmol/L 03/17/2024 3:20 AM [facility] CO2 26 22 - 29 mmol/L 03/17/2024 3:20 AM [facility] Glucose 97 70 - 99 mg/dL 03/17/2024 3:20 AM [facility] Calcium 9.6 8.4 - 10.2 mg/dL 03/17/2024 3:20 AM [facility] Protein Total 6.6 6.0 - 8.3 g/dL 03/17/2024 3:20 AM [facility] Albumin 4.3 3.4 - 5.0 g/dL 03/17/2024 3:20 AM [facility] Bilirubin Total 0.2 0.2 - 1.2 mg/dL 03/17/2024 3:20 AM [facility] Alkaline Phosphatase 57 40 - 150 U/L 03/17/2024 3:20 AM [facility] ALT 33 5 - 55 U/L 03/17/2024 3:20 AM [facility] AST 21 5 - 34 U/L 03/17/2024 3:20 AM [facility] Anion Gap 7 6 - 16 03/17/2024 3:20 AM [facility] BUN/Creatinine Ratio 21 7 - 23 03/17/2024 3:20 AM [facility] Osmolality Calculated 294 275 - 295 mOsm/kg 03/17/2024 3:20 AM [facility] Albumin/Globulin Ratio 1.9 1.1 - 2.3 03/17/2024 3:20 AM [facility] eGFR by CKD-EPI 75(L) >=90 mL/min/1.7 3 m2 03/17/2024 3:20 AM [facility] Blood BLOOD SPECIMEN / Unknown Venipuncture / Unknown 03/16/2024 2:26 PM STILL CLE[employer]ER TUBE 03/17/2024 2:52 AM [facility] Shreyas Phillips MD LAB - CHEMISTRY SILVINO Tolbert Organization Address City/State/ZIP Co de Phone Number [facility] [address] [place] [address], [facility] [phone] * LDH BLOOD (03/16/2024 2:26 PM STILL CLEANER TUBE) [facility] LDH Total 196 125 - 243 Units/L 03/17/2024 3:20 AM [facility] Blood BLOOD SPECIMEN / Unknown Venipuncture / Unknown 03/16/2024 2:26 PM STILL CLEANER TUBE 03/17/2024 2:52 AM ST[employer] CLE[employer] TUBE hSreyas Phillips MD LAB - CHEMISTRY SILVINO LENZ [facility] [address] [place] [address], [place] [phone] * HEMOGLOBIN A1C (02/03/2023 11:03 AM STILL CLEANER TUBE) [facility] Hemoglobin A1c 5.4 <=5.6 % 02/03/2023 3:39 PM [facility] Estimated Average Glucose 108 mg/dL 02/03/2023 3:39 PM [facility] Comment: HbA1c Interpretation: Normal : < 5.7% Pre-diabetes: 5.7-6.4% Diabetes: Equal to or greater than 6.5% Test results diagnostic of diabetes should be repeated for confirmation. Treatment target values recommended by ADA and other clinical organizations should be used to evaluate metabolic control in patients. Reference: [place] [employer], Standards of Care in Diabetes -2020 In patients 70 years and older consider HbA1c target range of 7.0-7.5% (Reference: Vishal Davis, et al. JAMDA. 2012) The Sebia assay for the measurement of HbA1c is a National Glycohemoglobin Standardization Program (NGSP) certified method. Blood BLOOD SPECIMEN / Unknown Lab Venipuncture / Unknown 02/03/2023 11:03 AM STILL CLE[employer]ER TUBE 02/03/2023 11:29 AM STILL CLE[employer]ER TUBE Mohini Sky MD LAB - CHEMISTRY SILVINO LENZ [facility] [address] [place] [address], [place] [phone] * HEPATITIS C RNA QUANTITATIVE (07/16/2022 12:15 PM CDT) Hepatitis C RNA PCR, Interp Not detected Not detected 07/19/2022 1:08 PM CDT [facility] Blood BLOOD SPECIMEN / Unknown Lab Venipuncture / Unknown 07/16/2022 12:15 PM CDT 07/16/2022 12:25 PM CDT Narrative [facility] MICROBIOLOGY - 07/19/2022 1:08 PM CDT The Hepatitis C viral (HCV) RNA analysis utilized a serum sample, real-time reverse supervisor self service store PCR, and is reported as Not Detected, [...] the isolation of HCV RNA with reverse supervisor self service store of genomic HCV RNA followed by real-time PCR in the presence of an unrelated RNA internal control. The internal control ensures that RNA is isolated, and that no general significant inhibitors of the RT-PCR process are present. The analysis was performed using a U.S. FDA approved test methodology. Shreyas Phillips MD LAB - CHEMISTRY SILVINO LENZ [facility] Organization Address City/State/ZIP Co de Phone Number [facility] MICROBIOLOG[facility] [address] [place] [address], [facility] [phone] from Last 3 Months or Most Recently [...] 3:45 PM 10/19/2022 5:53 PM Care Teams Eyeglass Lens Cutter Relationship Specialty Start Date End Date Agustin Flor MD [address] [place] [phone] PCP - General General Medicine 06/28/22 [place] [address] [place] [phone] Physician Hematology and Oncology 03/23/23 Bebe Hernandez, PAKylahC [address] [place] [address] Physician Rim Fire Priming Tool Setter Physician Rim Fire Priming Tool Setter 03/23/23 Nanda Rausch, RN Registered Nurse 03/23/23
--- OUTSIDE RECORDS SUMMARY | 2024-06-11 16:50 | XMS_ITS ---
Author Organization [facility] Address [address] [place] [address] Care Team Providers Care Folder Gluer Operator Name Role Phone Agustin Flor MD Primary Care Provider [phone] Annie Simpson MD Unavailable [phone] Active Problems Problem Noted Date Diagnosed Date PFO (patent foramen ovale) 02/22/2024 Assessment & Plan (02/22/2024 9:06 AM BINDERY MANAGER): She has followed with cardiology and has now seen a surgeon with plans for repair in the next several months We will reassess her dyspnea after her recovery from this procedure Centrilobular emphysema 02/22/2024 Assessment & Plan (02/22/2024 9:05 AM BINDERY MANAGER): Continue Trelegy Ellipta 100 daily Albuterol as [...] 02/21 Assessment & Plan (02/22/2024 9:06 AM BINDERY MANAGER): Last CT chest in November of 2023 [...]
--- OUTSIDE RECORDS SUMMARY | 2024-06-11 16:50 | XMS_ITS | Referral Summary ---
Author Organization [facility] Address [address] [place] [address] Care Team Providers Care Redrying Machine Operator Name Role Phone Agustin Flor MD Primary Care Provider + [phone] Annie Simpson MD Unavailable [phone] Encounters Date Type Department Care Team Description 05/29/2024 5:33 AM SNOW PLOW OPERATOR - 05/30/2024 11:37 AM SNOW PLOW OPERATOR Hospital Encounter [address] [address] Gallo Diehl MD PFO (patent foramen ovale) Discharge Disposition: Discharge to home or self care 05/29/2024 7:59 AM SNOW PLOW OPERATOR - 05/29/2024 11:59 PM SNOW PLOW OPERATOR Hospital Encounter [facility] Cardiac Catheterization Lab [address] [place] [address] Discharge Disposition: Discharge to home or self care 05/29/2024 8:00 AM SNOW PLOW OPERATOR - 05/29/2024 10:00 AM SNOW PLOW OPERATOR Surgery [facility] Cardiac Catheterization Lab [address] [place] [address] Gallo Diehl MD ATRIAL SEPTAL DEFECT (ASD), PATENT FORAMEN OVALE (PFO), FENESTRATION CLOSURE [id number] 05/29/2024 7:57 AM SNOW PLOW OPERATOR Anesthesia Event [facility] Cardiac Catheterization Lab [address] [place] [address] Chavez Chiu MD Eldin, Ali S., MD 05/25/2024 9:45 AM SNOW PLOW OPERATOR Pre-Admission Testing [facility] Pre Anesthesia Testing [address] [place] [address] Pre-op testing (Primary Dx) 05/24/2024 1:05 PM SNOW PLOW OPERATOR - 05/24/2024 11:59 PM SNOW PLOW OPERATOR Hospital Encounter [facility] [address] [place] [address] Left foot pain Discharge Disposition: Discharge to home or self care 05/24/2024 1:09 PM SNOW PLOW OPERATOR - 05/24/2024 11:59 PM SNOW PLOW OPERATOR Hospital Encounter [facility] [address] [place] [address] Right foot pain Discharge Disposition: Discharge to home or self care 05/24/2024 12:30 PM SNOW PLOW OPERATOR Office Visit [facility] Orthopaedic Surgery [id number] [place] [address] 2nd [address] [place] [address] Lakia Riddle MD Left foot pain (Primary Dx); Right foot pain; Acquired equinovarus deformity of left foot; Acquired equinovarus deformity of right foot 05/15/2024 [facility] Cardiac Catheterization Lab [address] [place] [address] Gallo Diehl MD PFO (patent foramen ovale) (Primary Dx) 03/14/2024 3:16 PM SNOW PLOW OPERATOR - 03/14/2024 11:59 PM SNOW PLOW OPERATOR Hospital Encounter [facility] [address] [place] [place] [address] Discharge Disposition: Discharge to home or self care 03/14/2024 3:15 PM SNOW PLOW OPERATOR - 03/14/2024 11:59 PM SNOW PLOW OPERATOR Hospital Encounter [facility] [address] [place] [place] [address] Discharge Disposition: Discharge to home or self care 03/14/2024 3:15 PM SNOW PLOW OPERATOR - 03/14/2024 11:59 PM SNOW PLOW OPERATOR Hospital Encounter [facility] [address] [place] [place] [address] Discharge Disposition: Discharge to home or self care 03/14/2024 3:14 PM SNOW PLOW OPERATOR - 03/14/2024 11:59 PM SNOW PLOW OPERATOR Hospital Encounter [facility] [address] [place] [address] Discharge Disposition: Discharge to home or self care 03/14/2024 3:13 PM SNOW PLOW OPERATOR - 03/14/2024 11:59 PM SNOW PLOW OPERATOR Hospital Encounter [facility] [address] [place] [address] Discharge Disposition: Discharge to home or self care 03/14/2024 3:12 PM SNOW PLOW OPERATOR - 03/14/2024 11:59 PM SNOW PLOW OPERATOR Hospital Encounter [facility] [address] [place] [address] Discharge Disposition: Discharge to home or self [...] nightly 11/13/19 23 Active FreeStyle Ron 3 [place]am misc 2 (two) times a day 10/03/19 [...] 02/22/2024 Assessment & Plan (02/22/2024 9:06 AM SNOW PLOW OPERATOR): She has followed with cardiology and has now seen a surgeon with plans for repair in the next several months We will reassess her dyspnea after her recovery from this procedure Centrilobular emphysema 02/22/2024 Assessment & Plan (02/22/2024 9:05 AM SNOW PLOW OPERATOR): Continue Trelegy Ellipta 100 daily Albuterol as [...] 02/21 Assessment & Plan (02/22/2024 9:06 AM SNOW PLOW OPERATOR): Last CT chest in November of 2023 [...] on file Legal Sex Female 9:14 PM SNOW PLOW OPERATOR Gender Identity Not on file Sexual Orientation Not on file Last Filed Vital Signs Vital Sign Reading Time Taken Comments Blood Pressure 118/62 05/30/2024 7:40 AM SNOW PLOW OPERATOR Pulse 74 05/30/2024 9:02 AM SNOW PLOW OPERATOR Temperature 37.4 C (99.4 F) 05/30/2024 7:40 AM SNOW PLOW OPERATOR Respiratory Rate 18 05/30/2024 7:40 AM SNOW PLOW OPERATOR Oxygen Saturation 95% 05/30/2024 7:40 AM SNOW PLOW OPERATOR Inhaled Oxygen Concentration - - Weight 57.6 kg (126 lb 15.8 oz) 05/30/2024 5:45 AM SNOW PLOW OPERATOR Height 162.6 cm (5' 4 ) 05/29/2024 6:49 AM SNOW PLOW OPERATOR Body Mass Index 21.8 05/29/2024 6:49 AM SNOW PLOW OPERATOR Plan of Treatment Not on file Medical Devices Implanted Type Area Vessel Crew Member Device Identifier Shelf Expiration Date Model / Serial / Lot [employer]pe[employer] Vascular Occluder Amplatzer Talisman Pfo 25-18mm [id number] - [id number] Implanted:Qty: 1 on 05/29/2024 by Gallo Diehl MD at [facility] Septal Defect Closure Device [employer] 03/27/2025 [id number] / / O[employer] V[employer] System Closure Repair Femoral Artery Suture Mediated Perclose Prostyle 97487-31 - [id number] Implanted:Qty: 1 on 05/29/2024 by Gallo Diehl MD at [facility] [employer] 02/24/2026 [id number] / / [id number] Procedures Procedure Name Priority Date/Time Associated Diagnosis Comments TRANSTHORACIC ECHO (TTE) LIMITED/FOLLOW UP W LTD DOPPLER/CF WO CONTRAST Routine 05/30/2024 8:27 AM SNOW PLOW OPERATOR POCT GLUCOSE DEVICE Routine 05/30/2024 8 :18 AM SNOW PLOW OPERATOR EGFR Routine 05/30/2024 4:01 AM SNOW PLOW OPERATOR DIFFERENTIAL AUTO Routine 05/30/2024 4:0 1 AM SNOW PLOW OPERATOR CBC WITH AUTO DIFFERENTIAL Routine 05/30/2024 4:01 AM SNOW PLOW OPERATOR BASIC METABOLIC PANEL Routine 05/30/2024 4:01 AM SNOW PLOW OPERATOR POCT GLUCOSE DEVICE Routine 05/29/2024 9 :18 PM SNOW PLOW OPERATOR POCT GLUCOSE DEVICE Routine 05/29/2024 5 :54 PM SNOW PLOW OPERATOR POCT GLUCOSE DEVICE Routine 05/29/2024 1 2:52 PM SNOW PLOW OPERATOR POCT GLUCOSE DEVICE Routine 05/29/2024 8 :58 AM SNOW PLOW OPERATOR ATRIAL SEPTAL DEFECT CLOSURE Routine 05/29/2024 8:38 AM SNOW PLOW OPERATOR PFO (patent foramen ovale) VT AN ELECTIVE ENDOTRACHEAL AIRWAY Routine 05/29/2024 8:12 AM SNOW PLOW OPERATOR ECG 12-LEAD Routine 05/29/2024 7:03 AM SNOW PLOW OPERATOR POCT GLUCOSE DEVICE Routine 05/29/2024 6 :38 AM SNOW PLOW OPERATOR URINALYSIS AND REFLEX TO MICROSCOPIC AND CULTURE Routine 05/25/2024 12:12 PM SNOW PLOW OPERATOR Pre-op testing XR FOOT RIGHT 3 OR MORE VIEWS Schedule Routine, Read Routine (OP Routine) 05/24/2024 1:24 PM SNOW PLOW OPERATOR Left foot pain XR FOOT LEFT 3 OR MORE VIEWS Schedule Routine, Read Routine (OP Routine) 05/24/2024 1:24 PM SNOW PLOW OPERATOR Right foot pain XR TRANSFER OF OUTSIDE FILMS Routine 03/14/2024 3:16 PM SNOW PLOW OPERATOR XR TRANSFER OF OUTSIDE FILMS Routine 03/14/2024 3:15 PM SNOW PLOW OPERATOR XR TRANSFER OF OUTSIDE FILMS Routine 03/14/2024 3:15 PM SNOW PLOW OPERATOR XR TRANSFER OF OUTSIDE FILMS Routine 03/14/2024 3:14 PM SNOW PLOW OPERATOR XR TRANSFER OF OUTSIDE FILMS Routine 03/14/2024 3:13 PM SNOW PLOW OPERATOR XR TRANSFER OF OUTSIDE FILMS Routine 03/14/2024 3:12 PM SNOW PLOW OPERATOR HEMOGLOBIN A1C Routine 04/12/2018 5:45 AM SNOW PLOW OPERATOR LIPID PANEL Routine 04/12/2018 5:45 AM SNOW PLOW OPERATOR from Last 3 Months or Most Recently Relevant to Health Maintenance Results * TRANSTHORACIC ECHO (TTE) LIMITED/FOLLOW UP W LTD DOPPLER/CF WO CONTRAST (05/30/2024 8:27 AM SNOW PLOW OPERATOR) Anatomical Region Laterality Modality Ultrasound 05/30/2024 7:49 AM SNOW PLOW OPERATOR Narrative 05/30/2024 12:27 [place] [address] Limited Echocardiogram Report Patient Name: PAULA ORELLANA S : 1960 Study Date: 05/30/2024 7:49:55 AM Gender: F Tech: THAD Location: [id number] Ref Provider: GALLO DIEHL Height(Cm): 163 BSA: [...] DO, FACC, FASE, FASNC 05/30/2024 12:27:25 PM SNOW PLOW OPERATOR Procedure Note Zeina Zamora DO - 05/30/2024 [place] [address] Limited Echocardiogram Report Patient Name: PAULA ORELLANA S : 1960 Study Date: 05/30/2024 7:49:55 AM Gender: F Tech: Location: [id number] Ref Provider: GALLO DIEHL Height(Cm): 163 BSA: [...] DO, JASPREET MONACO FASNC 05/30/2024 12:27:25 PM SNOW PLOW OPERATOR Gallo Diehl MD CV ECHO PROCEDURES Final Result * POCT glucose (05/30/2024 8:18 AM SNOW PLOW OPERATOR) Pathologist [facility] Glucose, POC 127 70 - 199 mg/dL Blood 05/30/2024 8:18 AM SNOW PLOW OPERATOR 05/30/2024 8:18 AM SNOW PLOW OPERATOR Gallo Diehl MD LAB POCT ORDERABLES - DEVICE Fi nal Result [facility] [address] Department of Laboratories [place] [id number] * eGFR (05/30/2024 4:01 AM SNOW PLOW OPERATOR) eGFR 61 >=60 mL/min/1. 73 m2 Comment: [...] last reviewed 2021. Blood 05/30/2024 4:01 AM SNOW PLOW OPERATOR 05/30/2024 4:33 AM SNOW PLOW OPERATOR us Gallo Diehl MD LAB BLOOD ORDERABLES Final Resu lt VIKRAM [address] Department [place] [address] * Differential, auto (05/30/2024 4:01 AM SNOW PLOW OPERATOR) Neutrophil abs 6.5 1.5 - 6.5 K/cumm Imm gran abs 0.0 0.0 - 0.1 K/cumm [facility] Lymphocyte abs 1.2 0.8 - 3.3 K/cumm [facility] Monocyte abs 0.6 0.2 - 0.8 K/cumm [facility] Eosinophil abs 0.0 0.0 - 0.5 K/cumm [facility] Basophil abs 0.0 0.0 - 0.1 K/cumm [facility] Neutrophil pct 77.2 % [facility] Comment: Interpretive Data Percent cell count reference [...] revised on 2017. Monocyte pct 7.5 % [facility] Comment: Interpretive Data Percent cell count reference ranges are not reported, since discordance with absolute values may lead to misinterpretation of CBC data. Current Interpretive Data was last revised on 2017. Eosinophil pct 0.2 % [facility] Comment: Interpretive Data Percent cell count reference ranges are not reported, since discordance with absolute values may lead to misinterpretation of CBC data. Current Interpretive Data was last revised on 2017. Basophil pct 0.2 % [facility] Comment: Interpretive Data Percent cell count reference ranges are not reported, since discordance with absolute values may lead to misinterpretation of CBC data. Current Interpretive Data was last revised on 2017. Blood 05/30/2024 4:01 AM SNOW PLOW OPERATOR 05/30/2024 4:12 AM SNOW PLOW OPERATOR us Gallo Diehl MD LAB BLOOD ORDERABLES Final Resu lt [facility] [address] [address] Department [place] [address] * (ABNORMAL) CBC with auto differential (05/30/2024 4:01 AM SNOW PLOW OPERATOR) WBC 8.5 3.8 - 9.9 K/cumm Hgb 11.8(L) 11.9 - 15.5 g/dL [facility] Hct 37.2 35.6 - 45.5 % [facility] Plt 176 150 - 400 K/cumm [facility] MPV 9.0(L) 9.1 - 12.3 fL [facility] RBC 4.07 3.90 - 5.20 M/cumm [facility] MCV 91.4 81.3 - 96.4 fL [facility] MCH 29.0 27.1 - 33.3 pg [facility] MCHC 31.7(L) 32.3 - 35.7 g/dL [facility] RDW CV 14.6 11.1 - 14.9 % [facility] RDW SD 48.1 35.7 - 48.1 fL [facility] NRBC abs 0.00 0.00 - 0.01 K/cumm [facility] Blood 05/30/2024 4:01 AM SNOW PLOW OPERATOR 05/30/2024 4:12 AM SNOW PLOW OPERATOR Gallo Diehl MD LAB BLOOD ORDERABLES Final Resu lt Performing Organization Address [facility] Co de Phone Number VIKRAM THRASHER [address] [place] [address] * Basic metabolic panel (05/30/2024 4:01 AM SNOW PLOW OPERATOR) Sodium 141 135 - 145 mmol/L Potassium, pl 3.8 3.3 - 4.9 mmol/L [facility] Chloride 103 97 - 110 mmol/L [facility] CO2 25 22 - 32 mmol/L [facility] Anion gap 13 2 - 15 mmol/L [facility] BUN 22 6 - 25 mg/dL [facility] Creatinine 1.02 0.60 - 1.10 mg/dL [facility] Glucose 128 70 - 199 mg/dL [facility] Comment: Interpretive Data Fasting glucose [...] 2022. Calcium 9.8 8.5 - 10.3 mg/dL [facility] Blood 05/30/2024 4:01 AM SNOW PLOW OPERATOR 05/30/2024 4:33 AM SNOW PLOW OPERATOR Gallo Diehl MD LAB BLOOD ORDERABLES Final Resu lt Performing Organization Address [facility] Co de Phone Number VIKRAM THRASHER [address] [facility] [place] [address] * (ABNORMAL) POCT glucose (05/29/2024 9:18 PM SNOW PLOW OPERATOR) Glucose, POC 213(H) 70 - 199 mg/dL Blood 05/29/2024 9:18 PM SNOW PLOW OPERATOR 05/29/2024 9:18 PM SNOW PLOW OPERATOR us Gallo Diehl MD LAB POCT ORDERABLES - DEVICE Fi nal Result Performing Organization Address [facility] Co de Phone Number VIKRAM THRASHER [address] [facility] [address] [place] [address] * POCT glucose (05/29/2024 5:54 PM SNOW PLOW OPERATOR) Glucose, POC 115 70 - 199 mg/dL Blood 05/29/2024 5:54 PM SNOW PLOW OPERATOR 05/29/2024 5:54 PM SNOW PLOW OPERATOR us Gallo Diehl MD LAB POCT ORDERABLES - DEVICE Fi nal Result Performing Organization Address [facility] de Phone Number VIKRAM THRASHER [address] [facility] [address] [place] [address] * (ABNORMAL) POCT glucose (05/29/2024 12:52 PM SNOW PLOW OPERATOR) Glucose, POC 224(H) 70 - 199 mg/dL Blood 05/29/2024 12:5 2 PM SNOW PLOW OPERATOR 05/29/2024 12:52 PM SNOW PLOW OPERATOR us Gallo Diehl MD LAB POCT ORDERABLES - DEVICE Fi nal Result Performing Organization Address [facility] de Phone Number VIKRAM ANNA MARIE [address] [place] [address] * POCT glucose (05/29/2024 8:58 AM SNOW PLOW OPERATOR) Glucose, POC 120 70 - 199 mg/dL Blood 05/29/2024 8:58 AM SNOW PLOW OPERATOR 05/29/2024 8:58 AM SNOW PLOW OPERATOR us Gallo Diehl MD LAB POCT ORDERABLES - DEVICE Fi nal Result Performing Organization Address [facility] de Phone Number VIKRAM ANNA MARIE [address] [place] [place] [address] * ATRIAL SEPTAL DEFECT CLOSURE (05/29/2024 8:38 AM SNOW PLOW OPERATOR) Anatomical Region Laterality Modality X-Ray Angiograph y Narrative 05/29/2024 8:48 AM SNOW PLOW OPERATOR Table formatting from the original result was not included. ATRIAL SEPTAL DEFECT (ASD), PATENT FORAMEN OVALE (PFO), FENESTRATION CLOSURE 94[address] Brief Op Note Attending Night Club Manager: Gallo Diehl MD Primary: Gallo Diehl MD CV Documenter: Selam Hernández RN CV Scrub: Ezra Douglass; Avis Lance CV Gritting Machine Operator: Patricia Bowen RN; Shawna Cooper RN Date of Procedure: 05/29/2024 Specimens: No specimen collected in procedure Preoperative Diagnosis: Pre-op Diagnosis * PFO (patent foramen ovale) [Q21.12] Postoperative Diagnosis: Post-op Diagnosis * PFO (patent foramen ovale) [Q21.12] Name of Procedure: Procedure(s): ATRIAL SEPTAL DEFECT (ASD), PATENT FORAMEN OVALE (PFO), FENESTRATION CLOSURE [address]06 Implants: Implant Name Type Inv. Item Serial No. Vessel Crew Member Lot No. [id number] No. Used Action [employer] System Closure Repair Femoral Artery Suture Mediated Perclose Prostyle 95952-21 - [id number] [employer]ASC[employer] System Closure Repair Femoral Artery Suture Mediated Perclose Prostyle 40655-07 [employer] [id number] N/A 1 Implanted [employer] Occluder Amplatzer Talisman Pfo 25-18mm [id number] - [id number] Septal Defect Closure Device [employer] Occluder [...] was proctored by Dr. Brandan Cifuentes from [facility]. COMPLICATIONS: None ESTIMATED BLOOD LOSS: 5 [...] CARDIAC CATH PROCEDURES Yuli l Result * VT AN ELECTIVE ENDOTRACHEAL AIRWAY (05/29/2024 8:12 AM SNOW PLOW OPERATOR) Narrative Gerald Retana AA - 05/29/2024 8:12 AM SNOW PLOW OPERATOR Gerald Retana AA 05/29/2024 8:13 AM Airway [...] * ECG 12 lead (05/29/2024 7:03 AM SNOW PLOW OPERATOR) 05/29/2024 7:03 AM SNOW PLOW OPERATOR Narrative [facility] - 05/29/2024 11:11 AM SNOW PLOW OPERATOR Vent Rate: 68 bpm RR Interval: 878 msec VT Interval: 184 msec QRS Duration: 97 msec QT Interval: 425 msec QTC Interval: 442 msec P-R-T [place]: 72 - -19 - 60 degrees IMPRESSION: SINUS RHYTHM SEPTAL MYOCARDIAL INFARCTION , PROBABLY OLD VERSUS POOR R-WAVE PROGRESSION ABNORMAL ECG Electronically Signed By: Pantera Wiggins MD Gallo Diehl MD ECG ORDERABLES Final Result Performing Organization Address City/State/[facility] Co de Phone Number [facility] * POCT glucose (05/29/2024 6:38 AM SNOW PLOW OPERATOR) Glucose, POC 111 70 - 199 mg/dL Blood 05/29/2024 6:38 AM SNOW PLOW OPERATOR 05/29/2024 6:38 AM SNOW PLOW OPERATOR Gallo Diehl MD LAB POCT ORDERABLES - DEVICE Fi nal Result Performing Organization Address City/State/[facility] de Phone Number VIKRAM [address] Department [place] [address] * Urinalysis reflex to microscopic and culture Urine, clean voided (05/25/2024 12:12 PM SNOW PLOW OPERATOR) Color, ur Straw Yellow Clarity, ur Clear [...] tendency for uric acid stone formation. Source: [facility] [address] Current Interpretive Data was last revised on [...] [facility] Urine, clean voided 05/25/2024 12:12 PM SNOW PLOW OPERATOR 05/25/2024 12:21 PM SNOW PLOW OPERATOR Marianne Matos NP LAB MICROBIOLOGY - GENERAL ORD ERABLES Final Result Performing Organization Address [facility] Co de Phone Number VIKRAM THRASHER [address] Department of [address] [place] [address] * XR Foot Right 3 or More Views (05/24/2024 1:24 PM SNOW PLOW OPERATOR) Anatomical Region Laterality Modality Lower Extremities, Foot Right Computed Radiography 05/24/2024 1:31 PM SNOW PLOW OPERATOR Impressions 05/24/2024 1:31 PM SNOW PLOW OPERATOR 1. 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 2. Apparent lesser hammertoe deformities with ankle fixed in plantar flexion on these nonweightbearing images. Electronically signed by: Maximus Murry MD Narrative 05/24/2024 1:31 PM SNOW PLOW OPERATOR EXAMINATION: XR FOOT LEFT 3 OR MORE [...] 3 or More Views (05/24/2024 1:24 PM SNOW PLOW OPERATOR) Anatomical Region Laterality Modality Lower Extremities, Foot Left Computed Radiography 05/24/2024 1:31 PM SNOW PLOW OPERATOR Impressions 05/24/2024 1:31 PM SNOW PLOW OPERATOR 1. 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 2. Apparent lesser hammertoe deformities with ankle fixed in plantar flexion on these nonweightbearing images. Electronically signed by: Maximus Murry MD Narrative 05/24/2024 1:31 PM SNOW PLOW OPERATOR EXAMINATION: XR FOOT LEFT 3 OR MORE [...] * XR Outside Reference (03/14/2024 3:16 PM SNOW PLOW OPERATOR) Impressions [email or web address] - 03/14/2024 3:16 PM SNOW PLOW OPERATOR These images are for Reference purposes only and have not been reviewed by [facility] Radiology. There will be no report generated by a [facility] Radiologist. Narrative [facility] - 03/14/2024 3:16 PM SNOW PLOW OPERATOR EXAMINATION: Images For Reference Purposes Only Lakia Riddle MD IMG XR PROCEDURES Final Re sult Performing Organization Address [facility] Co de Phone Number [email or web address] * XR Outside Reference (03/14/2024 3:15 PM SNOW PLOW OPERATOR) Impressions [email or web address] - 03/14/2024 3:15 PM SNOW PLOW OPERATOR These images are for Reference purposes only and have not been reviewed by [facility]. There will be no report generated by a [facility] Radiologist. Narrative [facility] - 03/14/2024 3:15 PM SNOW PLOW OPERATOR EXAMINATION: Images For Reference Purposes Only Lakia Riddle MD IMG XR PROCEDURES Final Re sult Performing Organization Address [facility] Co de Phone Number [email or web address] * XR Outside Reference (03/14/2024 3:15 PM SNOW PLOW OPERATOR) Impressions [email or web address] - 03/14/2024 3:15 PM SNOW PLOW OPERATOR These images are for Reference purposes only and have not been reviewed by [facility]. There will be no report generated by a [facility] Radiologist. Narrative [facility] - 03/14/2024 3:15 PM SNOW PLOW OPERATOR EXAMINATION: Images For Reference Purposes Only Lakia Riddle MD IMG XR PROCEDURES Final Re sult Performing Organization Address [facility] Co de Phone Number [email or web address] * XR Outside Reference (03/14/2024 3:14 PM SNOW PLOW OPERATOR) Impressions [email or web address] - 03/14/2024 3:14 PM SNOW PLOW OPERATOR These images are for Reference purposes only and have not been reviewed by [facility]. There will be no report generated by a [facility] Radiologist. Narrative [facility] - 03/14/2024 3:14 PM SNOW PLOW OPERATOR EXAMINATION: Images For Reference Purposes Only us Lakia Riddle MD IMG XR PROCEDURES Final Re sult Performing Organization Address [facility] Co de Phone Number [email or web address] * XR Outside Reference (03/14/2024 3:13 PM SNOW PLOW OPERATOR) Impressions [email or web address] - 03/14/2024 3:13 PM SNOW PLOW OPERATOR These images are for Reference purposes only and have not been reviewed by [facility]. There will be no report generated by a [facility] Radiologist. Narrative [facility] - 03/14/2024 3:13 PM SNOW PLOW OPERATOR EXAMINATION: Images For Reference Purposes Only Lakia Riddle MD IMG XR PROCEDURES Final Re sult Performing Organization Address [facility] de Phone Number [email or web address] * XR Outside Reference (03/14/2024 3:12 PM SNOW PLOW OPERATOR) Impressions [email or web address] - 03/14/2024 3:12 PM SNOW PLOW OPERATOR These images are for Reference purposes only and have not been reviewed by [facility]. There will be no report generated by a [facility] Radiologist. Narrative [facility] - 03/14/2024 3:12 PM SNOW PLOW OPERATOR EXAMINATION: Images For Reference Purposes Only Lakia Riddle MD IMG XR PROCEDURES Final Re sult Performing Organization Address [facility] Co de Phone Number [email or web address] * (ABNORMAL) Hemoglobin A1c (04/12/2018 5:45 AM SNOW PLOW OPERATOR) Hemoglobin A1c % 5.9(H) 4.0 - 5.6 % Comment: ADA 2016 GUIDELINES: Initial Diagnostic Criteria HbA1c Result: Interpretation: <5.7% Normal 5.7-6.4% At risk for diabetes mellitus >=6.5% Consistent with diabetes mellitus Diabetes monitoring Target value (ADA Recommended) <7% 04/12/2018 5:45 AM SNOW PLOW OPERATOR 04/12/2018 6:02 AM SNOW PLOW OPERATOR Narrative [facility] HISTORICAL RESULTS - 04/12/2018 6:40 AM SNOW PLOW OPERATOR Comment In AM us Guicho Nova MD LAB BLOOD ORDERABLES Final Resul t [facility] HISTORICAL RESULTS * Lipid panel (04/12/2018 5:45 AM SNOW PLOW OPERATOR) Triglycerides 124 0 - 149 mg/dL Comment: National Lipid Association/NCEP Guidelines: Normal < 150 mg/dL Borderline high 150-199 mg/dL High 200-499 mg/dL Very High >=500 mg/dL Cholesterol 118 0 - 199 mg/dL Comment: National Lipid Association/NCEP Guidelines: Desirable < 200 mg/dL Borderline high: 200-239 mg/dL High Risk: >=240 mg/dL HDL Cholesterol 52 mg/dL 9 6:42 AM [facility] HISTORICAL RESULTS Comment: Reference Ranges: Males: >=40 mg/dL Females: >=50 mg/dL LDL Cholesterol, Calc 41 0 - 129 mg/dL Comment: National Lipid Association/NCEP Guidelines: Optimal < 100 mg/dL Near Optimal 100-129 mg/dL Borderline high 130-159 mg/dL High >=160 mg/dL Cholesterol/HDL Ratio 2.3 04/12/2018 6:42 AM [facility] [employer] [facility] HISTORICAL RESULTS Comment: Optimal < 3.5:1 High > 5:1 04/12/2018 5:45 AM [employer] OPERATOR 04/12/2018 6:02 AM SNOW PLOW OPERATOR Narrative [facility]OR[facility] RESULTS - 04/12/2018 6:42 AM SNOW PLOW OPERATOR Comment In AM Guicho Nova MD LAB BLOOD ORDERABLES Final Resul t [facility] HISTORICAL RESULTS from Last 3 Months or Most Recently Relevant to Health Maintenance Insurance [facility] MEDICARE SOLUTIONS MEDICARE SOLUTIONS IDPA Advance Directives For more information, please contact: [phone] * Full Code (Latest Code Status on File) Date Activated Date Inactivated Comments 05/29/2024 10:10 AM 05/30/2024 3:37 PM Care Teams Redrying Machine Operator Relationship Specialty Start Date End Date Agustin Flor MD PCP - General Internal Medicine 06/28/22 Annie Simpson MD [id number] [place] [address] Consulting Physician Cardiology 05/30/24
--- OUTSIDE RECORDS SUMMARY | 2024-06-11 16:50 | XMS_ITS | Data Portability ---
Author Organization [place] [facility] [employer], Main Office Address [address] [place] [address] Assessment Encounter Date Assessment Date Assessment LastModified by Organization Details LastModified Time 09/21/2022 09/21/2022 Will cut her long-acting insulin in half will cut her mealtime insulin in half she will follow-up with me in 2 months Levemir will be 10 units Novolin will be 5 unit [email or web address] Not available 09/21/2022 22:52:16 11/30/2022 11/30/2022 Parking placard blood pressure diabetes hyperlipidemia discussed follow-up 3 month Not available 11/30/2022 22:36:44 02/01/2023 02/01/2023 Podiatry She can see Ortho as well Continue with her medicines for her hyperlipidemia diabetes and hypertension Follow-up with me in a month [email or web address] Not available 02/02/2023 21:20:40 03/07/2023 03/07/2023 Given her previous cardiac history will get her set up with Cardiology for surgical clearance blood pressure appears to be well-controlled at 110/62 blood work will also be ascertained for biochemical management of disease processes of medications follow-up with me in about 3 months Not available 03/28/2023 18:10:16 Plan of Treatment Reminders Order Date Submit Date Provider Last Modified By Organization Details Last Modified Time Details Appointments None recorded. Lab CBC w/ auto diff 2022 023 [facility] (Lab), [address] [place], [address], 17:56:00 CMP, serum or plasma 2022 023 [facility] (Lab), [address] [place], [address], 3 19:22:35 lipid panel, serum 2022 023 [facility] (Lab), [address] [place], [address], 3 19:22:40 glycohemogl obin, total, blood 2022 023 [facility] (Lab), [address] [place], [address], 3 19:20:54 urinalysis, dipstick 2022 023 [id number] [facility], [address] [facility] [address], [place], [address], 3 16:45:58 Referral cardiologis t referral 2022 023 [email or web address] Annie Simpson MD, 0 [facility], [address], [place], [address], 4 19:10:44 Procedures None recorded. Surgeries None recorded. Imaging CT, urogram 2022 023 [facility] ([facility]), [address] [place], [address], 3 05:01:33 Medication Orders None recorded. Patient TargetsNo targets recorded. Patient InstructionsNo instructions recorded. Reason for Referral Clinic Receptionist Referral for Pr e-surgery evaluation Referring Physician: Agustin Flor, Internal Medicine, Encounter Date: 03/07/2023 Results Created Date Observation Date Name Description Value Unit Range Abnormal Flag Note LastModifiedBy Organization Detail LastModifiedTime 06/23/19 23 06/22/2022 URINA LYSIS COMPL ETE/I RIS W/RFX color YELLOW Not Available [facility] (Lab) [address] [place], [address], 06/22/2022 14:38:50 06/23/19 23 06/22/2022 URINA LYSIS COMPL ETE/I RIS W/RFX appear EX.TUR BID Not Available [facility] (Lab) [address] [place], [address], 06/22/2022 14:38:50 06/23/19 23 06/22/2022 URINA LYSIS COMPL ETE/I RIS W/RFX specific gravity 1.016 1.001- 1.030 Not Available [facility] (Lab) [address] [place], [address], 06/22/2022 14:38:50 06/23/19 23 06/22/2022 URINA LYSIS COMPL ETE/I RIS W/RFX pH 6.5 pH_un its 5.0-9. 0 Not Available [facility] (Lab) [address] [place], [address], 06/22/2022 14:38:50 06/23/19 23 06/22/2022 URINA LYSIS COMPL ETE/I RIS W/RFX leukocytes NEGATI VE palak/u L negati ve- Not Available [facility] (Lab) [address] [place], [address], 06/22/2022 14:38:50 06/23/19 23 06/22/2022 URINA LYSIS COMPL ETE/I RIS W/RFX nitrite NEGATI VE negati ve- Not Available [facility] (Lab) [address] [place], [address], 06/22/2022 14:38:50 06/23/19 23 06/22/2022 URINA LYSIS COMPL ETE/I RIS W/RFX protein 10 mg/dL negati ve- abnormal Not Available [facility] (Lab) [address] [place], [address], 06/22/2022 14:38:50 06/23/19 23 06/22/2022 URINA LYSIS COMPL ETE/I RIS W/RFX glucose NORMAL mg/dL normal - Not Available [facility] (Lab) [address] [place], [address], 06/22/2022 14:38:50 06/23/19 23 06/22/2022 URINA LYSIS COMPL ETE/I RIS W/RFX ketones NEGATI VE mg/dL negati ve- Not Available [facility] (Lab) [address] [place], [address], 06/22/2022 14:38:50 06/23/19 23 06/22/2022 URINA LYSIS COMPL ETE/I RIS W/RFX urobilinogen NORMAL mg/dL normal - Not Available [facility] (Lab) [address] [place], [address], 06/22/2022 14:38:50 06/23/19 23 06/22/2022 URINA LYSIS COMPL ETE/I RIS W/RFX bilirubin NEGATI VE mg/dL negati ve- Not Available [facility] (Lab) [address] [place], [address], 06/22/2022 14:38:50 06/23/19 23 06/22/2022 URINA LYSIS COMPL ETE/I RIS W/RFX blood NEGATI VE mg/dL negati ve- Not Available [facility] (Lab) [address] [place], [address], 06/22/2022 14:38:50 06/23/19 23 06/22/2022 URINA LYSIS COMPL ETE/I RIS W/RFX white blood cells 0-8 /i??h pfi?? 0-[address] [facility] (Lab) [address] [place], [address], 06/22/2022 14:38:50 06/23/19 06/22/2022 URINA LYSIS COMPL ETE/I RIS W/RFX red blood cells 0-4 /i??h pfi?? 0-[address] [facility] (Lab) [address] [place], [address], 06/22/2022 14:38:50 06/23/19 23 06/22/2022 URINA LYSIS COMPL ETE/I RIS W/RFX bacteria NONE Not Available [facility] (Lab) [address] [place], [address], 06/22/2022 14:38:50 06/23/19 23 06/22/2022 URINA LYSIS COMPL ETE/I RIS W/RFX mucous OCCASI ONAL /i??l pfi?? abnormal Not Available [facility] (Lab) [address] [place], [address], 06/22/2022 14:38:50 06/23/19 23 06/22/2022 URINA LYSIS COMPL ETE/I RIS W/RFX squamous epithelial PACKED FIELD /i??l pfi?? abnormal Not Available [facility] (Lab) [address] [place], [address], 06/22/2022 14:38:50 06/23/19 23 06/22/2022 URINA LYSIS COMPL ETE/I RIS W/RFX hyaline cast FEW /i??l pfi?? none seen- abnormal Not Available [facility] (Lab) [address] [place], [address], 06/22/2022 14:38:50 07/03/19 23 07/02/2022 urina lysis , dipst ick Leukocytes (reference range: negative palak/ l) Negati ve Not Available [facility] [address] [facility], [address], [place], [address], 07/02/2022 09:52:54 07/03/1907/02/2022 urina lysis , dipst ick Nitrite (reference rage: negative mg/dl) negati ve Not Available [address], [address], 07/02/2022 09:52:54 07/03/1907/02/2022 urina lysis , dipst ick Urobilinogen (reference range: 0.2-1 mg/dl) 0.2 Not Available [address], [address], 07/02/2022 09:52:54 07/03/1907/02/2022 urina lysis , dipst ick Protein (reference range: negative mg/dl) Negati ve Not Available [address], [address], 07/02/2022 09:52:54 07/03/1907/02/2022 urina lysis , dipst ick pH (reference range: 5-7) 7.0 Not Available [address], [address], 07/02/2022 09:52:54 07/03/1907/02/2022 urina lysis , dipst ick Blood (reference range: negative Aaron/ l) Negati ve Not Available [address], [address], 07/02/2022 09:52:54 07/03/19 23 07/02/2022 urina lysis , dipst ick Specific [place] (reference range: 1.005-1.030) 1.015 Not Available [facility] [address], [address], [place], [address], 07/02/2022 09:52:54 07/03/1907/02/2022 urina lysis , dipst ick Ketone (reference range: negative mg/dl) Negati ve Not Available [facility] [address] [address], [place], [address], 07/02/2022 09:52:54 07/03/1907/02/2022 urina lysis , dipst ick Bilirubin (reference range: negative mg/dl) Negati ve Not Available [facility] [address], [place] [address], [place], [address], 07/02/2022 09:52:54 07/03/19 23 07/02/2022 urina lysis , dipst ick Glucose (reference range: negative mg/dl) 500 Not Available [facility] [address], [address], 07/02/2022 09:52:54 07/03/1907/02/2022 urina lysis , dipst ick Appearance Clear Not Available [facility] [address] [address], [place], [address], 07/02/2022 09:52:54 07/03/1907/02/2022 urina lysis , dipst ick Color Yellow Not Available [facility] [address], [place] [address], [place], [address], 07/02/2022 09:52:54 07/20/19 23 07/19/2022 urina lysis , dipst ick Leukocytes (reference range: negative palak/ l) Negati ve Not Available [facility] [address], [address], [place], [address], 07/19/2022 11:58:47 07/20/19 23 07/19/2022 urina lysis , dipst ick Nitrite (reference rage: negative mg/dl) negati ve Not Available [facility] [place] [address], [place], [address], 07/19/2022 11:58:47 07/20/19 23 07/19/2022 urina lysis , dipst ick Urobilinogen (reference range: 0.2-1 mg/dl) 0.2 Not Available s_ g [address] [address], [place], [address], 07/19/2022 11:58:47 07/20/19 23 07/19/2022 urina lysis , dipst ick Protein (reference range: negative mg/dl) Trace Not Available s_ g [address] [place] [address], [place], [address], 07/19/2022 11:58:47 07/20/19 23 07/19/2022 urina lysis , dipst ick pH (reference range: 5-7) 6.0 Not Available s_ [address] [address], [place], [address], 07/19/2022 11:58:47 07/20/19 23 07/19/2022 urina lysis , dipst ick Blood (reference range: negative Aaron/ l) Large Not Available s_ g [address], [address], [address], 07/19/2022 11:58:47 07/20/19 23 07/19/2022 urina lysis , dipst ick Specific [place] (reference range: 1.005-1.030) 1.000 Not Available s _[address], [address] , [place], [address], 07/19/2022 11:58:47 07/20/19 23 07/19/2022 urina lysis , dipst ick Ketone (reference range: negative mg/dl) Trace Not Available s_[address], [address], [address], 07/19/2022 11:58:47 07/20/19 23 07/19/2022 urina lysis , dipst ick Bilirubin (reference range: negative mg/dl) Negati ve Not Available s_[address], [address], 07/19/2022 11:58:47 07/20/19 23 07/19/2022 urina lysis , dipst ick Glucose (reference range: negative mg/dl) Negati ve Not Available s_[address], [address] , [place], [address], 07/19/2022 11:58:47 07/20/19 23 07/19/2022 urina lysis , dipst ick Appearance Clear Not Available s_[address], [address], 07/19/2022 11:58:47 07/20/19 23 07/19/2022 urina lysis , dipst ick Color Yellow Not Available [facility] [address], [address], [address], 07/19/2022 11:58:47 03/07/20 23 03/07/2023 CBC/C OMPLE TE BLD COUNT W/DIF F white blood cells 5.0 x10'3 /uL 4.2-[address] [facility] (Lab) [address] [place], [address], 03/07/2023 17:56:00 03/07/20 23 03/07/2023 CBC/C OMPLE TE BLD COUNT W/DIF F red blood cells 4.22 x10'6 /uL 3.80-[address] [facility] (Lab) [address] [place], [address], 03/07/2023 17:56:00 03/07/20 23 03/07/2023 CBC/C OMPLE TE BLD COUNT W/DIF F hemoglobin 12.6 g/dL 12.0-[address] [facility] (Lab) [address] [place], [address], 03/07/2023 17:56:00 03/07/20 23 03/07/2023 CBC/C OMPLE TE BLD COUNT W/DIF F hematocrit 40.4 % 35.7-[address] [facility] (Lab) [address] [place], [address], 03/07/2023 17:56:00 03/07/20 23 03/07/2023 CBC/C OMPLE TE BLD COUNT W/DIF F mean red cell volume 95.7 fL 82.0-[address] [facility] (Lab) [address] [place], [address], 03/07/2023 17:56:00 03/07/20 23 03/07/2023 CBC/C OMPLE TE BLD COUNT W/DIF F mean red cell hemoglobin 29.9 pg 27.0-[address] [facility] (Lab) [address] [place], [address], 03/07/2023 17:56:00 03/07/20 23 03/07/2023 CBC/C OMPLE TE BLD COUNT W/DIF F mean RBC HGB concentratio n 31.2 g/dL 31.0-[address] [facility] (Lab) [address] [place], [address], 03/07/2023 17:56:00 03/07/20 23 03/07/2023 CBC/C OMPLE TE BLD COUNT W/DIF F red cell distribution width 14.4 % 11.8-[address] [facility] (Lab) [address] [place], [address], 03/07/2023 17:56:00 03/07/20 23 03/07/2023 CBC/C OMPLE TE BLD COUNT W/DIF F platelets 204 x10'3 /uL 150-40 0 Not Available [facility] (Lab) [address] [place], [address], 03/07/2023 17:56:00 03/07/20 23 03/07/2023 CBC/C OMPLE TE BLD COUNT W/DIF F mean platelet volume 9.9 fL 9.0-[address] [facility] (Lab) [address] [place], [address], 03/07/2023 17:56:00 03/07/20 23 03/07/2023 CBC/C OMPLE TE BLD COUNT W/DIF F neutrophils 71.4 % 39.0-7 2.0 Not Available [facility] (Lab) [address] [place], [address], 03/07/2023 17:56:00 03/07/20 23 03/07/2023 CBC/C OMPLE TE BLD COUNT W/DIF F lymphocytes 14.7 % 16.0-4 [address] [facility] (Lab) [address] [place], [address], 03/07/2023 17:56:00 03/07/20 23 03/07/2023 CBC/C OMPLE TE BLD COUNT W/DIF F monocytes 10.7 % 5.0-[address] [facility] (Lab) [address] [place], [address], 03/07/2023 17:56:00 03/07/20 23 03/07/2023 CBC/C OMPLE TE BLD COUNT W/DIF F eosinophils 2.0 % 1.0-7. [address] [facility] (Lab) [address] [place], [address], 03/07/2023 17:56:00 03/07/20 23 03/07/2023 CBC/C OMPLE TE BLD COUNT W/DIF F basophils 0.8 % 0.0-2. [address] [facility] (Lab) [address] [place], [address], 03/07/2023 17:56:00 03/07/20 23 03/07/2023 CBC/C OMPLE TE BLD COUNT W/DIF F immature granulocytes 0.4 % 0.00-[address] [facility] (Lab) [address] [place], [address], 03/07/2023 17:56:00 03/07/20 23 03/07/2023 CBC/C OMPLE TE BLD COUNT W/DIF F neutrophils, absolute count 3.54 x10'3 /uL 1.5-8. [address] [facility] (Lab) [address] [place], [address], 03/07/2023 17:56:00 03/07/20 23 03/07/2023 CBC/C OMPLE TE BLD COUNT W/DIF F lymphocytes, absolute count 0.73 x10'3 /uL 1.07-3 [address] [facility] (Lab) [address] [place], [address], 03/07/2023 17:56:00 03/07/20 23 03/07/2023 CBC/C OMPLE TE BLD COUNT W/DIF F monocytes, absolute count 0.53 x10'3 /uL 0.29-[address] [facility] (Lab) [address] [place], [address], 03/07/2023 17:56:00 03/07/20 23 03/07/2023 CBC/C OMPLE TE BLD COUNT W/DIF F eosinophils, absolute count 0.10 x10'3 /uL 0.02-[address] [facility] (Lab) [address] [place], [address], 03/07/2023 17:56:00 03/07/20 23 03/07/2023 CBC/C OMPLE TE BLD COUNT W/DIF F basophils, absolute count 0.04 x10'3 /uL 0.01-[address] [facility] (Lab) [address] [place], [address], 03/07/2023 17:56:00 03/07/20 23 03/07/2023 CBC/C OMPLE TE BLD COUNT W/DIF F immature granulocytes ,absolute 0.02 x10'3 /uL 0.00-[address] [facility] (Lab) [address] [place], [address], 03/07/2023 17:56:00 03/07/20 23 03/07/2023 CBC/C OMPLE TE BLD COUNT W/DIF F nucleated red blood cells 0.0 % -0 Not Available [facility] (Lab) [address] [place], [address], 03/07/2023 17:56:00 12/11/03/07/2023 CBC/C OMPLE TE BLD COUNT W/DIF F NRBC# 0.00 x10'3 /uL Not Available [facility] (Lab) [address] [place], [address], 03/07/2023 17:56:00 03/07/20 23 03/07/2023 HEMOG LOBIN A1C HA1C 6.1 % 4.0-6. 0 high Diabe ash Scree luis fernando Crite jacqueline: <5.7% Consi stent with absen ce of diabe ash 5.7-6 .4% Consi stent with incre ased risk for diabe ash (pred iabet es) >OR=6 .5% Consi stent with diabe ash REFER ENCE: Diabe ash Care 2016, 39(Mejia ppl.1 ):s13 -s22 Not Available [facility] (Lab) [address] [place], [address], 03/07/2023 19:20:54 03/07/20 23 03/07/2023 COMPR EHENS ROBEL METAB OLIC PANEL sodium 141 mmol/ L 137-[address] [facility] (Lab) [address] [place], [address], 03/07/2023 19:22:35 03/07/20 23 03/07/2023 COMPR EHENS ROBEL METAB OLIC PANEL potassium 3.8 mmol/ L 3.5-5. [address] [facility] (Lab) [address] [place], [address], 03/07/2023 19:22:35 03/07/20 23 03/07/2023 COMPR EHENS ROBEL METAB OLIC PANEL chloride 103 mmol/ L 98-[address] [facility] (Lab) [address] [place], [address], 03/07/2023 19:22:35 03/07/20 23 03/07/2023 COMPR EHENS ROBEL METAB OLIC PANEL carbon dioxide 30 mmol/ L 22-[address] [facility] (Lab) [address] [place], [address], 03/07/2023 19:22:35 03/07/20 23 03/07/2023 COMPR EHENS ROBEL METAB OLIC PANEL anion gap 11.8 mmol/ L 14-[address] [facility] (Lab) [address] [place], [address], 03/07/2023 19:22:35 03/07/20 23 03/07/2023 COMPR EHENS ROBEL METAB OLIC PANEL glucose 84 mg/dL 70-[address] [facility] (Lab) [address] [place], [address], 03/07/2023 19:22:35 03/07/20 23 03/07/2023 COMPR EHENS ROBEL METAB OLIC PANEL BUN 25 mg/dL 8-[address] [facility] (Lab) [address] [place], [address], 03/07/2023 19:22:35 03/07/20 23 03/07/2023 COMPR EHENS ROBEL METAB OLIC PANEL creatinine 0.77 mg/dL 0.66-[address] [facility] (Lab) [address] [place], [address], 03/07/2023 19:22:35 03/07/20 23 03/07/2023 COMPR EHENS ROBEL METAB OLIC PANEL GFR >60 Refer ence Range : [place] GFR Healt hy Adult : >60 [...] calcu lator is avail able on the [facility] websi te: https ://ww w.kid rashida.o rg/pr ofess ional s/kdo qi/gf r_cal culat or Not Available [facility] (Lab) [address] [place], [address], 03/07/2023 19:22:35 03/07/20 23 03/07/2023 COMPR EHENS ROBEL METAB OLIC PANEL alkaline phosphatase 56 U/L 38-126 Not Available [facility] (Lab) [address] [place], [address], 03/07/2023 19:22:35 03/07/20 23 03/07/2023 COMPR EHENS ROBEL METAB OLIC PANEL alanine aminotransfe rase 27 U/L 0-35 Not Available [facility] (Lab) [address] [place], [address], 03/07/2023 19:22:35 03/07/20 23 03/07/2023 COMPR EHENS ROBEL METAB OLIC PANEL aspartate aminotransfe rase 25 U/L 15-37 Not Available [facility] (Lab) [address] [place], [address], 03/07/2023 19:22:35 03/07/20 23 03/07/2023 COMPR EHENS ROBEL METAB OLIC PANEL bilirubin, total 0.20 mg/dL 0.20-[address] [facility] (Lab) [address] [place], [address], 03/07/2023 19:22:35 03/07/20 23 03/07/2023 COMPR EHENS ROBEL METAB OLIC PANEL calcium 9.8 mg/dL 8.4-[address] [facility] (Lab) [address] [place], [address], 03/07/2023 19:22:35 03/07/20 23 03/07/2023 COMPR EHENS ROBEL METAB OLIC PANEL total protein 6.3 g/dL 6.3-8. [address] [facility] (Lab) [address] [place], [address], 03/07/2023 19:22:35 03/07/20 23 03/07/2023 COMPR EHENS ROBEL METAB OLIC PANEL albumin 4.1 g/dL 3.0-4. [address] [facility] (Lab) [address] [place], [address], 03/07/2023 19:22:35 03/07/20 23 03/07/2023 COMPR EHENS ROBEL METAB OLIC PANEL globulin 2.2 g/dL 2.6-4. [address] [facility] (Lab) [address] [place], [address], 03/07/2023 19:22:35 03/07/20 23 03/07/2023 COMPR EHENS ROBEL METAB OLIC PANEL A/G ratio 1.9 ratio 1.0-2. [address] [facility] (Lab) [address] [place], [address], 03/07/2023 19:22:35 03/07/20 23 03/07/2023 LIPID PANEL cholesterol 125 mg/dL 140-19 9 low NIH ITZEL NSUS RECOM MENDA TION FOR CEASAR STERO L: ADULT CHILD LOW RISK: <200 <170 BORDE RLINE : <200- 239 ----- HIGH RISK: >240 >[address] [facility] (Lab) [address] [place], [address], 03/07/2023 19:22:40 03/07/20 23 03/07/2023 LIPID PANEL triglyceride s 273 mg/dL 0-150 high NIH ITZEL NSUS REPOR T RECOM MENDA TION FOR TRIGL YCERI GIAN: ADULT CHILD LOW RISK: <150 ----- BODER LINE: 150-1 99 ----- HIGH RISK: >200 ----- Not Available [facility] (Lab) [address] [place], [address], 03/07/2023 19:22:40 03/07/20 23 03/07/2023 LIPID PANEL HDL cholesterol 63 mg/dL 40- Not Available [facility] (Lab) [address] [place], [address], 03/07/2023 19:22:40 03/07/20 23 03/07/2023 LIPID PANEL [...] WILL NOT BE REPOR ARTHUR. Not Available [facility] (Lab) [address] [place], [address], 03/07/2023 19:22:40 07/03/19 23 07/02/2022 US, feroz canseco No observ ation record ed. s_g [facility] [address] [place] [address], [address], [place], [address], 07/05/2022 10:36:06 04/20/07/15/2022 XR, chest , 2 view [facility] [address] [facility] [place] [address] Mesha pinedo Name: PAULA ORELLANA Access ion #: [id number] Sex: F : 1960 3 Locati on: RAD Attend ing Physic jakob: JEAN CLAUDE LOPEZ Physic jakob: DAKOTA FLOR Exam Date: 023 [...] 2 view chest. Page 1 of 2 [facility] Mesha pinedo Name: PAULA ORELLANA Access ion #: [id number] Sex: F : 1960 5 Exam Date: 023 1:37 PM Exam Name: XR CHEST 2V Admitt ing Diagno sis(es ): Create d and electr onical ly signed by: Brandan baker MD Signed Date: 4:46 PM (CT) Dictat ed by: Brandan baker MD DD: 023 4:46 PM (CT) DT: 023 4:46 PM (CT) Page 2 of [address] (Imaging) [address] [place], [address], 09/23/2022 09:59:41 09/17/19 23 09/16/2022 XR, chest No observ ation record ed. [address], [place], [address], 09/23/2022 10:00:00 Result Notes None recorded. Problems Name Problem SNOMED Code Status Onset Date Resolution Date Notes Provider Name and Address Organization Details Recorded Time Cellulitis of foot 381973943 Active 2021 Not Available [facility] 4 12:02:15 Computed tomography result abnormal 449767587 Active 2022 Not Available [facility] 4 12:02:15 Postoperat [facility] care Active 2021 Not Available [facility] 4 12:02:15 Chronic obstructiv e pulmonary disease 27960528 Active 2016 Not Available [facility] 4 12:02:15 CT of abdomen abnormal 5557266693668 9107 Active 2022 Not Available [facility] 4 12:02:15 Cirrhosis of liver 84431239 Active 2016 Not Available [facility] 4 12:02:15 Neuropathy due to diabetes mellitus 825686391 Active 2020 Not Available [facility] 4 12:02:15 Low back pain 832114153 Active 2021 Not Available [facility] 4 12:02:15 Chest pain 27063996 Active 2022 Not Available [facility] 4 12:02:15 Type 2 diabetes mellitus without complicati on 792746076 Active 2021 Not Available [facility] 4 12:02:15 Former heavy tobacco smoker 7370192642963 00 Active 2016 Not Available [facility] 4 12:02:15 Acute urinary tract infection 189348656 Active 2021 Not Available [facility] 4 12:02:15 Type 2 diabetes mellitus 27438491 Active 2020 Not Available [facility] 4 12:02:15 Cough 30003537 Active 2021 Not Available [facility] 4 12:02:15 Upper respirator y infection 98379598 Active 2021 Not Available [facility] 4 12:02:15 Hyperlipid emia 22769721 Active 2020 Not Available [facility] 4 12:02:15 Essential hypertensi on 77195673 Active 2020 Not Available [facility] 4 12:02:15 Otitis media 24485012 Active 2021 Not Available [facility] 4 12:02:15 Urinary tract infectious disease 37439629 Active 2021 Not Available [facility] 4 12:02:15 Closed fracture of fifth metatarsal bone 69429623 Active 2020 Not Available [facility] 4 12:02:15 Mental disorder 18573003 Active 2020 Not Available [facility] 4 12:02:15 COVID-19 330526852 Active 2021 Not Available [facility] 4 12:02:16 Hyponatrem ia 27285653 Active 2021 Not Available [facility] 4 12:02:16 Dysuria 80820799 Active 2022 Not Available [facility] 4 12:02:15 Flank pain 327350739 Active 2022 Not Available [facility] 4 12:02:15 Increased frequency of urination 107223141 Active 2022 Not Available [facility] 4 12:02:15 Urge incontinen ce of urine 91339989 Active 2022 Not Available [facility] 4 12:02:16 Dyspnea 465404550 Active 2022 Not Available [facility] 4 12:02:15 Nausea and vomiting 57748298 Active 2022 Not Available [facility] 4 12:02:15 Hydrourete r 70102580 Active 2022 Not Available [employer] 4 12:02:15 High grade B-cell lymphoma [id number] Active 2022 Not Available [employer] 4 12:02:15 Uncontroll ed type 2 diabetes mellitus 704730239 Active 2022 Not Available [facility] 4 12:02:15 Notes:Medical History: Depre ssion Rhinitis [...] Covid 06/02/2020 Some problems listed in Document: #[id number] could not be added to this patient's chart. Please review this document and add these problems to the patient's chart manually as needed. Problem Notes None recorded. Procedures Surgical History Date Name Laterality Status Provider Name and Address Organization Details Recorded Time 2 Foot Surgery completed Not Available [facility] 023 05:55:53 Tonsillectomy completed Not Available [facility] 05/26/2022 05:55:53 [facility]ste[facility] 05/26/2022 05:55:53 Imaging Results Imaging Date Name Status LastModified by Organiz ation Details LastModified Time 07/02/2022 US, bladder completed [email or web address] [place] [address] [facility], [address], [place], [address], 07/05/2022 10:36:06 07/15/2022 XR, chest, [email or web address] [facility] (Imaging) [address] [place], [address], 09/23/2022 09:59:41 09/16/2022 XR, chest completed [email or web address] [address], [address], 09/23/2022 10:00:00 Procedure Notes None recorded. Medical Equipment None Reported. Allergies Allergen ID Allergen Name Allergen Category Reaction Reaction Severity Criticality Documentation Date Start Date Code Code System Note Provider Name and Address Organization Details Recorded Time 93966 hydrochlo rothiazid e medicatio n Not available Not available Not available 05/26/2022 5487 RxNorm Not Available [facility] 3 06:08:25 96082 clonazepa m medicatio n Not available Not available Not available 05/26/2022 2598 RxNorm uncon troll ed muscl e movem ent Not Available [facility] 3 06:08:25 77099 chlorthal idone medicatio n Not available Not available Not available 05/26/2022 2409 RxNorm Not Available [facility] 3 06:08:25 03914 aspirin medicatio n eye swelling severe Not available 05/26/2022 1191 RxNorm Not Available [facility] 3 06:08:25 71549 azithromy john medicatio n facial swelling Not available Not available 05/26/2022 76289 RxNorm tongu e swell ing Not Available [facility] 3 06:08:25 62395 cefdinir medicatio n rash Not available Not available 04/21/20232023 56788 RxNorm Quin Vieira RN null, [place] [employer] 4 16:44:05 Medications Name Sig Start Date [...] completed Not Available Not Available Not Available [employer] Ultra2 Meter kit USE TO TEST BID 11/13 completed Not Available Not Available Not Available BD Ultra-Fin e Short Pen Needle 31 gauge x 5/16 active Not Available Not Available Not Available [...] Ultra-Fin e 0.3 mL 31 gauge x 5/16 USE 3 TIMES DAILY DIRECTED FOR INSULIN [...] (half unit) 0.3 mL 31 gauge x active Not Available Not Available Not Available [...] Updated DateTime 3 162.56 cm 29.4 kg/m2 45360.3 g 89 % 89 % 97.3 [degF] 78 /min 125 mm[Hg] 83 mm[Hg] Eddy Chansarah [facility] [employer] [facility] 3 12:36:54 Date Recorded Body height Body mass index (BMI) Body weight Body temperature Heart rate Systolic blood pressure Diastolic blood pressure Provider Name and Address Organization Details Last Updated DateTime 3 162.56 cm 23.5 kg/m2 14369.1 5 g 97.6 [degF] 98 /min 102 mm[Hg] 60 mm[Hg] Estefani Thorne Susan [facility] [employer] [facility] 3 11:28:14 Date Recorded Body height Body temperature Heart rate Systolic blood pressure Diastolic blood pressure Provider Name and Address Organization Details Last Updated DateTime 3 162.56 cm 97.5 [degF] 91 /min 114 mm[Hg] 68 mm[Hg] Ritika Espinoza RN [facility] [employer] [facility] 3 15:06:55 Date Recorded Body height Body temperature Heart rate Systolic blood pressure Diastolic blood pressure Provider Name and Address Organization Details Last Updated DateTime 02/01/2023 162.56 cm 97.4 [degF] 81 /min 110 mm[Hg] 68 mm[Hg] Estefani Thorne [facility] [employer] [facility] 3 15:10:12 Date Recorded Body height Body temperature Heart rate Oxygen saturation Oxygen saturation in Arterial blood by Pulse oximetry Systolic blood pressure Diastolic blood pressure Provider Name and Address Organization Details Last Updated DateTime 3 162.56 cm 97.5 [degF] 87 /min 95 % 95 % 110 mm[Hg] 62 mm[Hg] Estefani Thorne Susan [facility] [employer] [facility] 3 15:26:25 Social History Question Answer Notes LastModified by Organization Details LastModified Time Tobacco Smoking Status Former Smoker quit 2010 Not Available [facility] 05/26/2022 05:55:15 Do You Have An Advance Directive? No MIGRATION.030 [id number] Information not available 05/26/2022 What Is Your Level Of Alcohol Consumption? None Quit 2007 MIGRATION.[id number] Information not available 05/26/2022 Do You Wear A Helmet When Biking? No MIGRATION.030896986 Information not available 05/26/2022 What Is Your Level Of Caffeine Consumption? None MIGRATION.0301 533959 Information not available 05/26/2022 In The 14 Days Before Symptom Onset, Have You Had Close Contact With A Laboratory-confi rmed COVID-19 While That Case Was Ill? No MIGRATION.0301 455492 Information not available 05/26/2022 In The 14 Days Before Symptom Onset, Have You Had Close Contact With A Person Who Is Under Investigation For COVID-19 While That Person Was Ill? No MIGRATION.0301 195585 Information not available 05/26/2022 What Type Of Diet Are You Following? REGULAR MIGRATION.0301 280357 Information not available 05/26/2022 What Is The Highest Grade Or Level Of School You Have Completed Or The Highest Degree You Have Received? IC85242-9 MIGRATION.0301 277875 Information not available 05/26/2022 Have There Been Any Changes To Your Family Or Social Situation? No MIGRATION.0301 443891 Information not available 05/26/2022 What Is The Fluoride Status Of Your Home? Unknown MIGRATION.0301 604825 Information not available 05/26/2022 When Did You Quit Smoking? 6-10yearssincelastc igarette MIGRATION.0301 471244 Information not available 05/26/2022 Are There Any Guns Present In Your Home? No MIGRATION.0301 258658 Information not available 05/26/2022 Do You Use Insect Repellent Routinely? No MIGRATION.0301 322301 Information not available 05/26/2022 Where Do You Live? [place]House MIGRATION.0301 331734 Information not available 05/26/2022 Do You Have A Medical Power Of [employer] School? No MIGRATION.0301 179084 Information not available 05/26/2022 What Was The Date Of Your Most Recent Tobacco Screening? 03/07/2023 Information not available 03/07/2023 Do You Have Any Pets? No MIGRATION.0301 729469 Information not available 05/26/2022 What Is Your Relationship Status? MIGRATION.0301 536335 Information not available 05/26/2022 Do You Use Your Seat Belt Or Car Seat Routinely? Yes MIGRATION.0301 355684 Information not available 05/26/2022 Do You Have Smoke And Carbon Monoxide Detectors In Your Home? Yes MIGRATION.0301 091910 Information not available 05/26/2022 At What Age Did You Start Smoking Tobacco? 16 MIGRATION.0301 645785 Information not available 05/26/2022 Are You Passively Exposed To Smoke? No MIGRATION.0301 875671 Information not available 05/26/2022 Are There Any Smokers In Your House? No MIGRATION.0301 629191 Information not available 05/26/2022 What Types Of Sporting Activities Do You Participate In? None MIGRATION.0301 250314 Information not available 05/26/2022 Do You Feel Stressed (tense, Restless, Nervous, Or Anxious, Or Unable To Sleep At Night)? CS39922-5 MIGRATION.0301 710788 Information not available 05/26/2022 Do You Use Any Illicit Or Recreational Drugs? No MIGRATION.0301 554180 Information not available 05/26/2022 Do You Use Sunscreen Routinely? No MIGRATION.0301 383256 Information not available 05/26/2022 Has Tobacco Cessation Counseling Been Provided? No MIGRATION.0301 640117 Information not available 05/26/2022 Have You Recently Traveled Abroad? No MIGRATION.0301 176043 Information not available 05/26/2022 Do You Have Any Dietary Restrictions? No MIGRATION.0301 845997 Information not available 05/26/2022 Do You Or Have You Ever Used Any Other Forms Of Tobacco Or Nicotine? No MIGRATION.0301 174505 Information not available 05/26/2022 Sex: Female Functional Status Question Answer Note LastModified by Organizat ion Details LastModified Time What is your exercise level? Moderate MIGRATION.[id number] Information not available 05/26/2022 Mental Status None recorded. Family History Relationship Description Onset Age of this Age Resolved Age Notes LastModified by Organization Details LastModified Time Mother Hypertensive disorder MIGRATION.591 [id number] Not available 05/26/2022 05:55:57 Mother Hyperlipidem ia MIGRATION.002 [id number] Not available 05/26/2022 05:55:57 Sister Hypertensive disorder MIGRATION.147 [id number] Not available 05/26/2022 05:55:57 Sister Malignant tumor of neck MIGRATION.652 [id number] Not available 05/26/2022 05:55:57 Sister Chronic obstructive pulmonary disease MIGRATION.495 9155121 Not available 05/26/2022 05:55:57 Brother Diabetes mellitus MIGRATION.810 [id number] Not available 05/26/2022 05:55:57 Medical History Condition [...] HAVE YOU BEEN HOSPITALIZED OR SEEN IN [facility] IN THE PAST YEAR ? Y ATHEROSCLEROSIS [...] mcg/0.3 mL dose 2 completed Not Available [facility] 04/22/2023 12:02:17 Influenza, high-dose, quadrivalent, PF 2 completed Not Available [facility] 04/22/2023 12:02:17 Influenza, split virus, quadrivalent, preservative 0 completed Not Available [facility] 04/22/2023 12:02:17 Influenza, split virus, quadrivalent, preservative 9 completed Not Available [facility] 04/22/2023 12:02:17 influenza, unspecified formulation 7 completed Not Available [facility] 04/22/2023 12:02:17 COVID-19, mRNA, LNP-S, PF, 30 mcg/0.3 mL dose 1 completed Not Available [facility] 04/22/2023 12:02:17 COVID-19 vaccine, vector-nr, rS-Ad26, PF, 0.5 mL 1 completed Not Available [facility] 04/22/2023 12:02:17 influenza, unspecified formulation 5 completed Not Available [facility] 04/22/2023 12:02:17 Influenza, split virus, quadrivalent, PF 1 completed Not Available [facility] 04/22/2023 12:02:17 Past Encounters Encounter ID Performer Location Encounter Start Date Encounter Closed Date Diagnosis/Indication Diagnosis SNOMED-CT Code Diagnosis ICD10 Code Diagnosis Note [id number] [facility] [address] [address] 11/19/2020 00:00:00 11/19/2020 12:29:48 [id number] [facility] [address] [address] 12/10/2020 00:00:00 12/10/2020 12:17:27 [id number] [facility] Internal Med [address] [address] 01/30/2021 00:00:00 02/08/2021 22:11:25 [id number] [facility] [address], [address] [address] 02/02/2021 00:00:00 02/02/2021 14:24:06 [id number] [facility] [place] [address], [address] [place] [address] 02/10/2021 00:00:00 02/10/2021 12:54:52 [id number] [facility] [place] [address], [address] [place] [address] 02/16/2021 00:00:00 02/16/2021 09:17:20 [id number] [facility] [place] [address], [address] [place] [address] 03/09/2021 00:00:00 03/09/2021 12:59:46 [id number] [facility] [address] [place], [place] [address], [address] [place] [address] 03/30/2021 00:00:00 03/30/2021 22:56:25 [id number] [facility] [place] [address], [address] [place] [address] 04/20/2021 00:00:00 04/20/2021 11:25:01 [id number] [facility] [place] [address], [address] [place] [address] 04/27/2021 00:00:00 04/27/2021 19:27:40 [id number] [facility] [place] [address], [address] [place] [address] 05/04/2021 00:00:00 05/04/2021 15:45:18 [id number] [facility] [place] [address], [facility] [place] [address] [place] [address] 05/11/2021 00:00:00 05/12/2021 08:55:56 [id number] [facility] [place] [address], [address] [place] [address] 05/25/2021 00:00:00 05/25/2021 12:49:04 [id number] [facility] [place] [address] [facility], [address] [place] [address] 06/11/2021 00:00:00 06/11/2021 14:54:15 [id number] [facility] Internal [facility] [address] [place], [place] [address]., [facility] [place] [address] [place] [address] 06/29/2021 00:00:00 07/19/2021 16:09:18 [id number] [facility] [place] [address] [facility], [address] [place] [address] 07/20/2021 00:00:00 07/20/2021 22:07:42 [id number] [facility] [place] [address] [place] [address]., [facility] [place] [address] [place] [address] 08/12/2021 00:00:00 08/12/2021 21:04:41 [id number] [facility] [place] [address] [place] [address]., [facility] [place] [address] [place] [address] 10/26/2021 00:00:00 11/10/2021 22:20:42 [id number] [facility] [place] [address] [place] [address]., [facility] [place] [address] [place] [address] 02/01/2022 00:00:00 02/01/2022 22:49:54 [id number] [facility] [place] [address] [place] [address]., [facility] [place] [address] [place] [address] 04/09/2022 00:00:00 04/09/2022 15:41:24 [id number] [facility] [address] [address] 05/07/2022 00:00:00 05/16/2022 16:17:25 [id number] Agustin Flor MD [facility] [place] [address] [place] [address]., [address] [address] 05/31/2022 14:34:19 05/31/2022 15:41:31 Computed tomography result abnormal 696543310 R93.89 [id number] Jean Claude Lopez NP [facility] [address] [place] [address] 07/02/2022 11:38:25 07/02/2022 12:42:22 Dysuria 12109058 R30.0 We discussed avoiding bladder irritants such as carbonated beverages, caffeine, spicy/ acidic foods, alcohol, and/ or tobacco products. Will send urine cytology due to irritative urinary symptoms and past heavy smoker. Flank pain 613487997 R10 .9 pain reproducib le with palpation. I suspect pain is nerve/musc uloskeleta l related. UA today is negative for blood. No history of stones. Will check renal ultrasound to rule in/ out urologic pathology. follow-up after renal ultrasound to discuss results. Increased frequency of urination 896887785 R35.0 Avoid bladder irritants. Limit fluids 2 hours prior to bedtime. If patient is unsuccessf ul with behavioral strategies may consider anticholin ergic/beta 3 agonist or PF PT. Urge incon tinence of urine 12103666 N39.41 [id number] Agustin Flor MD [facility] Internal Med [facility] [place] [address] [address] 07/05/2022 14:31:37 07/05/2022 16:10:59 Dyspnea 340955712 R06.02 Computed t omography result abnormal 153126581 R93.89 Nausea and vomiting 3 1999 R11.2 [id number] Jean Claude Lopez NP [facility] [address] [place] [address] 07/19/2022 12:22:36 07/19/2022 13:07:12 Dysuria 02201526 R30.0 We discussed avoiding bladder irritants such as carbonated beverages, caffeine, spicy/ acidic foods, alcohol, and/ or tobacco products. Will send urine cytology due to irritative urinary symptoms and past heavy smoker. 07/19/2022 Improved. Flank pain 293253289 R10 .9 get CTU. Increased frequency of urination 965327457 R35.0 Avoid bladder irritants. Limit fluids 2 hours prior to bedtime. If patient is unsuccessf ul with behavioral strategies may consider anticholin ergic/beta 3 agonist or PF PT. Urge incon tinence of urine 74365808 N39.41 Hydroureter 29900029 N13 .4 Will check CTU for structural evaluation to assess cause of left hydrourete r. No contrast allergy. I will call with results and plan appropriat e follow-up. We discussed in the abscence of structural obstructio n will need to get lasix renogram for functional assessment . 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 [id number] Agustin Flor MD [facility] Internal Med [address] [place] [address] 11/30/2022 14:50:19 11/30/2022 15:37:56 Essential hypertension 68139323 I10 Type 2 alok betes mellitus 33881110 E11.9 Hyperlipidemia 23656904 E78.5 [id number] Agustin Flor MD [facility] Internal Med [facility] [place] [address] [place] [address] 1 02/01/2023 14:49:39 02/01/2023 16:00:58 High grade B-cell lymphoma 753852074 C85.10 Essential hypertension 02245567 I10 Hyperlipidemia 80621925 E78.5 Type 2 alok betes mellitus 18901535 E11.9 [id number] Agustin Flor MD [facility] Internal Med [facility] [place] [address] [place] [address] 1 03/07/2023 14:48:19 03/07/2023 16:10:53 Pre-surgery evaluation 235149004 Z01.818 Essential hypertension 80951182 I10 Type 2 alok betes mellitus without complication 277136201 E11.9 Health Concerns Section Related Observation LastModified by Organization Detai ls LastModified Time None Recorded Concern Status LastModified by Organization Details LastModified Time None Recorded Advance Directives Directive N: Payers Encounter Date Sequence Insurance Name Policy Number Policy Gregory Covered Member ID Gregory Member ID Guarantor Name 07/19/2022 1 [employer] [place] (MEDICARE REPLACEMENT HMO) [id number] Paula S Usrey [id number] Paula S Usrey 07/19/2022 2 [place] [facility] Paula S Usrey [id number] Paula S Usrey 09/21/2022 1 [employer] [place]MEDICARE [place]PLACEMENT HMO) [id number] Paula S Usrey [id number] Paula S Usrey 09/21/2022 2 [place] [facility] Paula S Usrey [id number] Paula S Usrey 11/30/2022 1 [facility] [id number] Paula S Usrey [id number] Paula S Usrey 11/30/2022 2 [place] [facility] Paula S Usrey [id number] Paula S Usrey 02/01/2023 1 [employer] [place] (MEDICARE [place]PLACEMENT HMO) [id number] Paula S Usrey [id number] Paula S Usrey 02/01/2023 2 [place] [facility] Paula S Usrey [id number] Paula S Usrey 03/07/2023 1 [facility]) [id number] Paula S Usrey [id number] Paula S Usrey 03/07/2023 2 [place] [facility] Paula S Usrey [id number] Paula S Usrey Notes Date Note Type [...] pain starting. Negative straight leg raise test. 07/19/2022atient returns to the office for follow-up after [...] beneficial..2. Bilateral simple renal cysts. Jean Claude Lopez NP [address], [place], [address], [employer] 07/19/2022 13:11:51 09/21/2022 text/html Hypertension no headache or dizziness. Gets hypoglycemic sometimes after her chemo GERD is been doing fine overall she seems to be stable she had 1 episode of hypoglycemia that necessitated an ER visit Agustin Flor MD [address], [place], [address], [employer] 09/21/2022 22:52:34 11/30/2022 text/html cancer. Chemo. Bilateral footdrop. Going through therapy. Blood sugars have been okay. Agustin Flor MD [address], [place], [address], [employer] 11/30/2022 22:37:02 02/01/2023 text/html And problems wit h her feetNeuropathy badSpecialist center to OrthoWill need foot care because of her diabetes as well Agustin Flor MD [address], [place], [address], [employer] 02/02/2023 21:21:32 03/07/2023 text/html He is to have mejia rgery on feetHypertension no chest pain or shortness of breath but she does not ambulateType 2 diabetes needs an A1c no polyphagia polydipsiaCAD with stent no chest painCOPD no problems breathing at this timeB-cell lymphoma treated at [facility] Agustin Flor MD [address], [place], [address], [employer] 03/28/2023 18:10:42 OBGyn Episode No OBEpisode recorded.
== END 2024-06-11 14:08 | disposition home or self-care (01) ==
PROVIDERS: PCP Internal Medicine
DX: Z79.899 Other long term (current) drug therapy (principal); I45.10 Unspecified right bundle-branch block
CPT/HCPCS: 93005

== ENCOUNTER 2024-06-26 11:29 | Outpatient (CLI) | payer MEDICARE, MEDICAID, SELFPAY ==
--- NOTE | ~2024-06-26 | XR_ITS ---
Right Knee Technique: AP, lateral, and sunrise views were obtained. Clinical History: Injury Findings: No fracture or dislocation is seen. Osseous alignment is anatomic. Joint spaces are preserv ed without degenerative or erosive change. Soft tissues are unremarkable. No joint effusion is seen. Impression: Unremarkable right knee radiographs. Reviewed, dictated and finalized at location . Impression: Unremarkable right knee radiographs.
--- OUTSIDE RECORDS SUMMARY | 2024-06-26 12:55 | XMS_ITS | Encounter Summary ---
Author Organization [facility] Address [address] [place] [address] Care Team Providers Care Protocol Manager Name Role Phone Agustin Flor MD Primary Care Provider [phone] Encounter Details Date Type Department Care Team (Latest Contact Info) Description 10/27/2022 12:18 PM CDT Hospital Encounter [address] [address] Claudia Plascencia MD [address] [place] [address] [place] [phone] [employer] Social History Tobacco Use Types [...] care, and heating? Not very hard 11/20/2022 [employer] [place] [facility] - Occupational Stress [...] Care Team (Late st Contact Info) Description 09/14/2024 12:40 PM CDT Appointment [facility] [address] [place] [address] Shreyas Phillips MD [address] [place] [phone] documented as of this encounter Visit Diagnoses Not on filedocumented in this encounter Care Teams Protocol Manager Relationship Specialty Start Date End Date Agustin Flor MD [address] [place] [id number] PCP - General General Medicine 06/28/22 documented as of this encounter
--- OUTSIDE RECORDS SUMMARY | 2024-06-26 12:55 | XMS_ITS | CONTINUITY OF CARE DOCUMENT ---
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 Cardiac septal defects active Shelley marshall BRIDGE CRANE OPERATOR Patent foramen ovale active Gallo Crowley Diffuse Non-Hodgkin's lympho ma (NHL) active Annie Simpson MD ENCOUNTERS Date Type Provider Location Encounter Diag nosis - In-person encounter Office Visit Annie Simpson MD [place] [facility] - In-person encounter Office Visit Gallo Diehl MD [facility] Office - In-person encounter Office Visit Annie Simpson MD [place] [facility] Diffuse Non-Hodgkin's lymphoma (NHL) - In-person encounter Office Visit Gallo Diehl MD [facility] Office Patent foramen ovale - In-person encounter Office Visit Annie Simpson MD [place] [facility] Cardiac septal defects - In-person encounter Office Visit Annie Simpson MD [place] [facility] Cardiology examination - In-person encounter Office Visit Annie Simpson MD [place] [facility] Preop cardiovasc. examination - In-person encounter Office Visit Annie Simpson MD [place] [facility] CVALymphoma s/p chemo - In-person encounter Office Visit Annie Simpson MD [place] [facility] - In-person encounter Office Visit Annie Simpson MD [place] [facility] - In-person encounter Office Visit Annie Simpson MD [place] [facility] Cardiovascular Condition Screening - In-person encounter Office Visit Annie Simpson MD [place] [facility] - In-person encounter Office Visit Annie Simpson MD [place] [facility] - In-person encounter Office Visit Annie Simpson MD [place] [facility] Other symptoms involving cardiovascular systemSnoringEKG - In-person encounter Office Visit Annie Simpson MD [place] [facility] C O P D - In-person encounter Office Visit Annie Simpson MD [place] [facility] Chest pain-type to be determined - In-person encounter Office Visit Annie Simpson MD [place] [facility] Aortic regurgitationAortic root dilatation - In-person encounter Office Visit Annie Simpson MD [place] [facility] - In-person encounter Office Visit Annie Simpson MD [place] [facility] Sleep apnea - In-person encounter Office Visit Annie Simpson MD [place] [facility] Hypertension VITAL SIGNS Date Observation Value Provider Body Mass Index (Ratio) 22.96 kg/m2 Guerda Simpson MD blood pressure, diastolic 75 mm[Hg] Li nkLogic blood pressure, systolic 134 mm[Hg] Amarilys kLogic pulse rate 90 /min Nanda Harryer s oxygen saturation, oximetry 96 % Nanda Zamora blood pressure, diastolic 75 mm[Hg] Ti tony Zamora blood pressure, systolic 134 mm[Hg] Tif kathrine Zamora weight E&M 138 [lb_av] Nanda Saunder s height E&M 65 [in_i] Nanda Saunder s Body Mass Index (Ratio) 23.29 kg/m2 Jackson Diehl MD oxygen saturation, oximetry 79 % Annda Zamora pulse rate 96 /min Nanda Saunder s blood pressure, diastolic 81 mm[Hg] Ti dayanarany Zamora blood pressure, systolic 135 mm[Hg] Torsten Zamora weight E&M 140 [lb_av] Nanda Cheng s height E&M 65 [in_i] Nanda Santoundharleen s blood pressure, cuff size regular Krzysztof rri Phonguenenfelder blood pressure, diastolic 80 mm[Hg] Krzysztof rri Gruenenfelder blood pressure, systolic 144 mm[Hg] Ida ri Ludwigneheavenelder oxygen saturation, oximetry 96 % Elizabeth Deniseer pulse rate 79 /min Elizabeth Constancee lder height E&M 65 [in_i] Elizabeth Milan er blood pressure, diastolic 75 mm[Hg] Hoang costello Jonh blood pressure, systolic 145 mm[Hg] Huma gauthier Jonh respiratory rate E&M 12 /min Kevin Blas ion oxygen saturation, oximetry 98 % Kevin Jonh pulse rate 75 /min Kevin Jonh blood pressure, cuff size regular Hoang costello Jonh height E&M 65 [in_i] Kevin Jonh Body Mass Index (Ratio) 23.29 kg/m2 Gregor Garcia blood pressure, diastolic 89 mm[Hg] Hortensia Li blood pressure, systolic 149 mm[Hg] Yancy Li oxygen saturation, oximetry 97 % Blanca Li pulse rate 68 /min Blanca Li respiratory rate E&M 14 /min Blanca Li weight E&M 140 [lb_av] Blanca Li height E&M 65 [in_i] Blanca Li blood pressure, cuff size regular An ileana Li Body Mass Index (Ratio) 22.96 kg/m2 Josh Hernandez blood pressure, diastolic 78 mm[Hg] Dinora ricoLog blood pressure, systolic 136 mm[Hg] Amarilys [facility] weight E&M 138 [lb_av] Kimi Carlson blood pressure, cuff size regular Ta bitchristi Carlson blood pressure, diastolic 78 mm[Hg] Ta bitha Carlson blood pressure, systolic 136 mm[Hg] Tab itha Carlson pulse rate 65 /min Kimi Carlson oxygen saturation, oximetry 98 % Kimi Carlson respiratory rate E&M 12 /min Kimi Carlson height E&M 65 [in_i] Kimi Carlson blood pressure, diastolic 94 mm[Hg] Dinora [facility] blood pressure, systolic 158 mm[Hg] Amarilys [facility] blood pressure, cuff size regular Ja rret blood pressure, diastolic 94 mm[Hg] Ja rret blood pressure, systolic 158 mm[Hg] Jar ret pulse rate 75 /min Pankaj respiratory rate E&M 14 /min Pankaj oxygen saturation, oximetry 96 % Pankaj height E&M 65 [in_i] Pankaj erda y respiratory rate E&M 17 /min Terrie jason blood pressure, diastolic 91 mm[Hg] An nikkie Lin blood pressure, systolic 148 mm[Hg] Any frantz Lin pulse rate 82 /min Terrie Riley blood pressure, cuff size large An nikkie Lin height E&M 65 [in_i] Terrie Lin Body Mass Index (Ratio) 28.12 kg/m2 Guerda Simpson MD blood pressure, diastolic 79 mm[Hg] St chambers Rhett blood pressure, systolic 153 mm[Hg] Ambrosio curry Rhett oxygen saturation, oximetry 94 % Nanda Rhett pulse rate 76 /min Nanda Rhett respiratory rate E&M 16 /min Nanda Keo aguirre weight E&M 169 [lb_av] Nanda Rhett height E&M 65 [in_i] Nanda Rhett Body Mass Index (Ratio) 27.95 kg/m2 Guerda Simpson MD blood pressure, cuff size large Ke rri Ludwigneaddison blood pressure, diastolic 87 mm[Hg] Ke rri Ludwigneaddison blood pressure, systolic 120 mm[Hg] Ida Galdamez oxygen saturation, oximetry 95 % Elizabeth Denice respiratory rate E&M 14 /min Elizabeth Roopa pratereneaddison pulse rate 55 /min Elizabeth Kayli lder weight E&M 168 [lb_av] Elizabeth Ludwignegretchen lder height E&M 65 [in_i] Elizabeth Kayli lder Body Mass Index (Ratio) 27.95 kg/m2 Guerda Simpson MD blood pressure, diastolic 69 mm[Hg] Ri jonh Mcguire blood pressure, systolic 112 mm[Hg] Bryant torsten Mcguire blood pressure, cuff size regular Ri jonh Mcguire oxygen saturation, oximetry 98 % Odalis Mcguire respiratory rate E&M 16 /min Jean Carlos Mcguire pulse rate 65 /min Odalis Ng son weight E&M 168 [lb_av] Odalis Ng son height E&M 65 [in_i] Odalis koehler Body Mass Index (Ratio) 28.12 kg/m2 Guerda Simpson MD blood pressure, diastolic 66 mm[Hg] Li nkLogic blood pressure, systolic 131 mm[Hg] Amarilys kLogic blood pressure, diastolic 66 mm[Hg] Ca therine [place] blood pressure, systolic 131 mm[Hg] Cat herine Navarro oxygen saturation, oximetry 96 % Aletha Navarro respiratory rate E&M 14 /min Catheri ne Navarro pulse rate 64 /min Aletha Navarro weight E&M 169 [lb_av] Aletha [place] blood pressure, cuff size regular Ca therine [place] height E&M 65 [in_i] Aletha [place] Body Mass Index (Ratio) 27.12 kg/m2 Christiano en Naranjo blood pressure, diastolic 66 mm[Hg] Li nkLogic blood pressure, systolic 111 mm[Hg] Amarilys [...] blood pressure, cuff size large Ke rri Gruenenfeldharleen blood pressure, diastolic 80 mm[Hg] Ke rri Gruenenfelder blood pressure, systolic 132 mm[Hg] Ida daly Salvadorheavenelder oxygen saturation, oximetry 95 % Elizabeth Nolascorajer respiratory rate E&M 16 /min Elizabeth Blas josiluluelder pulse rate 71 /min Elizabeth Nolascoe lder weight E&M 167 [lb_av] Elizabeth Nolascoe lder height E&M 65 [in_i] Elizabeth Nolascoe lder Body Mass Index (Ratio) 26.29 kg/m2 Guerda Simpson MD blood pressure, diastolic 72 mm[Hg] [facility], systolic 122 mm[Hg] Ton [facility] oxygen saturation, oximetry 96 % [facility] respiratory rate E&M 16 /min [facility] pulse rate 74 /min [facility] weight E&M 158 [lb_av] [facility] height E&M 65 [in_i] [facility] Body Mass Index (Ratio) 25.22 kg/m2 Guerda Simpson MD blood pressure, diastolic 67 mm[Hg] Uche Philippejoon Oliver blood pressure, systolic 121 mm[Hg] Miguelina Oliver oxygen saturation, oximetry 98 % Forest Oliver respiratory rate E&M 18 /min Mary Jo Oliver pulse rate 64 /min Forest Yordy annie weight E&M 151.6 [lb_av] Forest talbot height E&M 65 [in_i] Forest Yordy on Body Mass Index (Ratio) 25.46 kg/m2 Guerda Simpson MD pulse rate 75 /min [facility] temperature site temporal [facility] temperature E&M 98.2 [degF] [facility] respiratory rate E&M 16 /min [facility] oxygen saturation, oximetry 96 % [facility] weight E&M 153 [lb_av] [facility] blood pressure, diastolic 83 mm[Hg] To ha Booth blood pressure, systolic 129 mm[Hg] Ton [facility] blood pressure, resting Yes [facility] height E&M 65 [in_i] [facility] Body Mass Index (Ratio) 23.13 kg/m2 [...] MD blood pressure, diastolic 97 mm[Hg] Uche Oliver blood pressure, systolic 159 mm[Hg] Miguelina Oliver oxygen saturation, oximetry 95 % Forest Oliver respiratory rate E&M 18 /min Mary Jo Oliver pulse rate 75 /min Forest valencia weight E&M 161.4 [lb_av] Forest talbot height E&M 65 [in_i] Forest valencia ALLERGIES Allergy Name Onset Date Reaction Criticality Status AZITHROMYCIN got pale and eye s swelled up was taking for sinus infection High Criticality active HCTZ severe itching Low Criticality activ e CLONAZEPAM High Criticality active ASA EYE SWELLING B REATHING DIFFCIUYLTY S IMILAR RXN TO ZITRHOMAX High Criticality active REASON FOR REFERRAL Date [...] Estab. 5 platelet count 177 X10E3/UL LinkLogic [phone]/02/2 5 red blood cell distribution width 13.4 [...] point, quantitative, calculated 42 mg/dL LinkLogic 0-99 5 HDL cholesterol, serum 69 mg/dL LinkLogic >39 5 triglyceride, serum, random 83 mg/dL [facility] 0-149 5 cholesterol, serum 127 mg/dL LinkLogic [phone]/02/2 5 calcium, serum 10.2 mg/dL LinkLogic 8.7-10.3 5 carbon dioxide, venous blood 27 mmol/L LinkLogic 20-29 5 chloride, serum 103 mmol/L LinkLogic 96-106 5 potassium, serum 4.5 mmol/L LinkLogic 3.5-5.2 5 sodium, serum 143 mmol/L LinkLogic [phone]/02/2 5 urea nitrogen/creatinin e ratio, serum 19 LinkLogic 12-28 5 creatinine, serum 0.79 mg/dL LinkLogic 0.57-1.00 5 urea nitrogen, blood 15 mg/dL LinkLogic 8- 5 blood glucose, random 86 mg/dL LinkLogic 70-99 5 calcium, serum 10.3 mg/dL LinkLogic 8.7-10.3 5 carbon dioxide, venous blood 24 mmol/L LinkLogic 20-29 5 chloride, serum 105 mmol/L LinkLogic 96-106 5 potassium, serum 4.3 mmol/L LinkLogic 3.5-5.2 5 sodium, serum 145 mmol/L LinkLogic 134-144 High 5 urea nitrogen/creatinin e ratio, serum 21 LinkLogic - 5 creatinine, serum 0.91 mg/dL LinkLogic 0.57-1.00 5 urea nitrogen, blood 19 mg/dL LinkLogic - 5 blood glucose, random 88 mg/dL [facility]-99 HISTORY OF MEDICATION USE Medication Status Instructions Dates Provider Indications Com ments losartan 25 mg tablet active Take 1 tab let by mouth once a day Annie Simpson MD Eliquis 5 mg tablet completed TAKE 1 TABLE T BY MOUTH TWICE DAILY. DO NOT TAKE PLAVIX WITH ELIQUIS. AFTER FOOT SURGERY, STOP PLAVIX AND START ELIQUIS 05/10 - 06/18 Nanda Zamora terbinafine HCl 250 mg tablet active Take 1 tablet by mouth once a day Kevin Borja amlodipine 10 mg tablet active Take 1 tablet by mouth once a day Elizabeth Galdamez amlodipine 5 mg tablet completed Take 1 tablet by mouth once a day 12/01 - 03/28 Shelley Beach NP ziprasidone HCl 80 mg capsule active 1 capsule by mouth every night Maine Fulton NP pantoprazole 40 mg tablet,delayed release [...] PLAVIX AND START ELIQUIS. 07/31 - 05/10 Blancaileana Li cephalexin 500 mg capsule completed Take [...] 75 mg tablet active TAKE 1 TABLET DAILY Annie Simpson MD metoprolol tartrate 25 mg tablet completed TAKE 1 TABLET BY MOUTH TWICE DAILY 04/15 - 06/23 Terrie Lin hydrochlorothiazide 25 mg tablet completed TAKE 1 TABLET BY MOUTH EVERY DAY 04/18 - 05/09 Mary Sandra Protonix 20 mg tablet,delayed release (/EC) completed 1 tablet twice a day - [...] Terrie Lin pantoprazole 20 mg tablet,delayed release (/EC) completed Take 1 tablet once a day 05/17 - Annie Simpson MD Vasotec 5 mg tablet completed ONE TAB.TWIC E DAILY 07/02 - 03/30 Annie Simpson MD Pepcid 20 mg tablet active 1 tablet twice a day Forest Oliver MULTIVITAMINS ORAL CAPSULE completed ONE TAB. 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 number of years as a smoker 35 a Shelley Beach BRIDGE CRANE OPERATOR cigarette use yes Shelley Barriosll BRIDGE CRANE OPERATOR smoking status Former smoker Shelley Barrios ll BRIDGE CRANE OPERATOR smoking, year quit 2014 Maine Hull areri BRIDGE CRANE OPERATOR number of years as a smoker 35 a [place] Bonareri BRIDGE CRANE OPERATOR cigarette use yes [place] Bonareri BRIDGE CRANE OPERATOR smoking status Former smoker [place] Barretore ri BRIDGE CRANE OPERATOR smoking, year quit 2014 Terrie Dennis iams number of years as a smoker 35 a Terrie Lin cigarette use yes Terriefrantz Lin smoking status Former smoker Terrie santillan social history E&M S moking History: [place] louis is a former smoker. Annie Simpson MD social history reviewed E&M revi ewed - no changes required Annie Simpson MD smoking, year quit 2014 Nanda Rodrigo lentz number of years as a smoker 35 a Nanda Rhett cigarette use yes Nanda Delaney smoking status Former smoker Nanda Delaney social history E&M S moking History: [place] louis is a former smoker. Annie Simpson MD social history reviewed E&M revi ewed - no changes required Annie Simpson MD smoking, year quit 2014 Elizabeth powell number of years as a smoker 35 a Elizabeth Galdamez cigarette use yes Elizabeth gomez smoking status Former smoker Elizabeth jaime smoking, year quit 2014 Odalis Mcguire number of years as a smoker 35 a Odalis Mcguire cigarette use yes Odalis mchugh smoking status Former smoker Odalis charles social [...] MD smoking, year quit 2014 Elizabeth Webster cloverer number of years as a smoker 35 a Elizabeth Darlingjudyer cigarette use yes Elizabeth Munroeza elder smoking status Former smoker Elizabeth Franco urier smoking status Former smoker Frandy blackmon social history E&M S moking History: [place] louis is a former smoker. Frandy Cee social history reviewed E&M revi ewed - no changes required Frandy Cee smoking, year quit 2014 Forest Oliver number of years as a smoker 35 a ForestClaribel Matthewenson cigarette use yes ForestClaribel talbot social history E&M S moking History: [...] years as a smoker 35 a Forest Benito smoking, year quit 2014 Forest Benito cigarette use yes Forest freiresha smoking status Former smoker Forest [facility] [place] FAMILY HISTORY Family Member Condition Mother Family History of Di abetes: INSURANCE PROVIDERS Payer name Policy type / Coverage type [place] red alliance party ID [facility] COMPLETE CARE [id number] (PPO C-SNP) Commercial insurance company [id number] [employer] Medicaid 0 [id number] ADVANCE DIRECTIVES Name Date DISCUSSED - NO DECISION MADE TREATMENT PLAN Date Name Performer [id number],C, E cho 05/2021 C ONCLUSIONS: 1 . [...] a ortic valve regurgitation. Annie Simpson MD [id number],S,N eeds CT done, stress was negative. May need mamogram Annie Simpson MD [id number],C, N o YAMIL Annie Simpson MD [id number],C, H er updated medication list for this problem includes: Enalapril Maleate 5 Mg Tablet (Enalapril maleate) ..... Take 1 tablet by mouth twice daily Amlodipine 10 Mg Tablet (Amlodipine) ..... Take 1 tablet by mouth once a day BP today: 153/79 P rior BP: 120/87 (01/29/2022) Annie Simpson MD [id number],C, E cho 06/01/21 CONCLUSIONS: 1 . Technically [...] No ischemia, hyperdynamic EF Annie Simpson MD [id number],C, C heck echo C T [facility] August 01, 2019 T he ascending thoracic aorta measures 3.[address] 10/28/2019 [facility] prominent lymph nodes about t he esophagus. The heart is not enlarged. No thoracic aortic a neurysm or dissection. The left vertebral artery arises directly f rom the aortic arch. There January 29, [address] recheck [address] to evaluate aorta. CT was denied. WIll reorder Annie Simpson MD [id number],C, N o YAMIL Annie Simpson MD [id number],C, B P today: 120/87 P rior BP: [...] by mouth twice daily Annie Simpson MD [id number],C, C heck echo C [facility] August 01, 2019 T he ascending thoracic aorta measures 3.[address] 10/28/2019 [facility] prominent lymph nodes about t he esophagus. The heart is not enlarged. No thoracic aortic a neurysm or dissection. The left vertebral artery arises directly f rom the aortic arch. There January 29, [address] to evaluate aorta. Annie Simpson MD [id number],C, E cho 05/2021 C ONCLUSIONS: 1 . [...] a ortic valve regurgitation. Annie Simpson MD [id number],C, E cho 06/01/21 CONCLUSIONS: 1 . Technically [...] C heck nuclear stress. Annie Simpson MD [id number],C, S tarted on Nebulizer for COPD / emphysema. Has noted improvement. No PFTs. April 24, 2021 M ay be related to the fact that she is off nebulizer is why she has CP recommended her to resume. January 29, 2022 L ots of coughing due to COPD, probably chest wall related. Annie Simpson MD [id number],C,E cho 06/01/21 CONCLUSIONS: 1 . Technically difficult [...] a ortic valve regurgitation. Annie Simpson MD [id number],C,S uspect COPD issue vs GERD. She has [...] medical management is recommended. Annie Simpson MD [id number],C, H er updated medication list for this [...] rior BP: 111/66 (04/24/2021) Annie Simpson MD [id number],C,E cho 05/2021 C ONCLUSIONS: 1 . Technically [...] a ortic valve regurgitation. Annie Simpson MD [id number],C, N o YAMIL Annie Simpson MD [id number],C, N o YAMIL Annie Simpson MD [id number],C, B P today: 111/66 P rior BP: [...] 1 tablet twice daily Annie Simpson MD [id number],C,C heck echo C T [facility] August 01, 2019 T he ascending thoracic aorta measures 3.[address] 10/28/2019 [facility] prominent lymph nodes about t he esophagus. The heart is not enlarged. No thoracic aortic a neurysm or dissection. The left vertebral artery arises directly f rom the aortic arch. There Annie Simpson MD [id number],S,A ortic valve leaflets appear structurally normal. Velocities, as well as gradients across the aortic valve are normal. Mild to m oderate aortic valve regurgitation. Check echo Annie Simpson MD [id number],C, S tarted on Nebulizer for COPD / emphysema. Has noted improvement. No PFTs. April 24, 2021 M ay be related to the fact that she is off nebulizer is why she has CP recommended her to resume. Annie Simpson MD [id number],CS uspect COPD issue prior cath 2017 I [...] medical management is recommended. Annie Simpson MD Cardiology:HAD PFO C LOSURE AMPLATZER TALISMAN ON 05/29/24 AND HAD A/V STUDY NEG LOWER EXT POST PROCEDURE REMAINS ON PLAVIX FOR PFO CLOSURE 25mm Amplatzer PFO closure device was placed and there was no shunt by color flow noted N o pericardial effusion noted 3 d images were obtained demonstrating appropriate post deployment imaging P LAVIX LIFETIME SHE HAS ASA ALLERGY Annie Simpson MD Cardiology: S he states she has [...] PFO closure, will get it scheduled at [facility] June 18, 2024 H AD PFO CLOSURE AMPLATZER TALISMAN ON 05/29/24 AND HAD A/V STUDY NEG LOWER EXT POST PROCEDURE REMAINS ON PLAVIX FOR PFO CLOSURE Annie Simpson MD Cardiology: H er updated [...] PFO closure, will get it scheduled at [facility] Gallo Diehl MD Cardiology:SChedule for PFO closure at [facility] P t will be admitted for 1 night for observation Gallo Diehl MD Cardiology:SChedule for PFO closure at [facility] P t will be admitted [...] Chris Garcia Cardiology:pending a PFO closure with [facility] N ote from 02-09-2024 a ssessment [...] PFO closure, will get it scheduled at [facility]. This visit has been a [...] PFO closure, will get it scheduled at [facility] Annie Simpson MD Cardiology:pending a PFO closure with [facility] from 02-09-2024 a ssessment of PFO closure. [...] PFO closure, will get it scheduled at [facility]. Annie Simpson MD Cardiology Gallo Diehl MD Cardiology Gallo Diehl MD Cardiology: S ummary & Diagnosis F ew events were noted during the study, however, the amount of the events did not constitute a diagnosis of YAMIL per A ASM guidelines. N o YAMIL Shelley Beach NP Cardiology: C heck echo C [facility] August 01, 2019 T he ascending thoracic aorta measures 3.[address] 10/28/2019 [facility] prominent lymph nodes about t he esophagus. [...] right to left shunting. There was a [id number]-mo-vhui s boothe at rest by contrast study [...] right to left shunting. There was a [id number] s boothe at rest by contrast study [...] right to left shunting. There was a evici-de-twai s boothe at rest by contrast study [...] MD Cardiology: s he had cath done 2017 I MPRESSION: 1 . Widely patent coronary vasculature without evidence of any significant flow-limiting coronary artery d isease with virtually normal coronaries. 2 . Normal LV function. 3 . Normal renals. 4 . Systemic hypertension. 5 . Normal LVEDP. Annie Simpson MD Cardiology:joanl y had stroke in 2022, concerned regarding [...] right to left shunting. There was a [id number]-[id number] s boothe at rest by contrast study [...] guidelines. N o YAMIL Annie Simpson MD Cardiology:joanl y had stroke in 2022, concerned regarding [...] normal. Mild a ortic valve regurgitation. Annie iSmpson MD Cardiology[RxRsp]:Ne eds CT done, stress was [...] MD Cardiology[RxRsp]: C heck echo C [facility] August 01, 2019 T he ascending thoracic aorta measures 3.[address] 10/28/2019 [facility] prominent lymph nodes about t he esophagus. [...] thoracic aorta measures 3.[address] 10/28/2019 [facility] prominent lymph nodes about t he esophagus. [...] YAMIL Simpson MD Cardiology: N o YAMIL Annie [...] thoracic aorta measures 3.[address] 10/28/2019 [facility] prominent lymph nodes about t he esophagus. [...] Annie Simpson MD Cardiology Follow up :CT [facility] August 01, 2019 T he ascending thoracic aorta measures 3.[address] 10/28/2019 [facility] prominent lymph nodes about t he esophagus. [...] up : P revious echo done in [place], current echo seems somewhat progressed. Echo 06/27/2019 [...] emphysema. Has noted improvement. No PFTs. Annie Simpsno MD Cardiology - PHYSICI AL EXAM:Likely COPD related. W orkup for non-cardiac CP. I mproved with nebulizer. Annie Simpson MD Telehealth:Workup for non-cardia c CP. Cameron Riojas Telehealth:No YAMIL Cameron Riojas Telehealth: Kurtis johnson 06/27/2019 CONCLUSIONS: 1 . There is septal [...] [place] Telehealth: P revious echo done in [place], current echo seems somewhat progressed. Echo 06/27/2019 [...] trace physiologic tricuspid valve regurgitation. Cameron Riojas Cardiology:Completel y reproducible CP, identifcal to what [...] regurgitation. Frandy Cee Cardiology:Previous echo done in [place], current echo seems somewhat progressed. Echo 06/27/2019 [...] Annie Simpson MD Cardiology:Echo was abnormal. Wi ll rechec Annie Simpson MD Cardiology:Echo was abnormal. Wi ll anat Simpson MD Cardiology follow up : H [...] minute walk test Ambulatory Oximetry DLCO - 03401 FRC - [id number] FVC - [id number] HISTORY OF PROCEDURES Procedure Date Procedure Name Provider Procedure Notes S tatus Complex e/m visit add on Annie Simpson MD completed EKG Annie Simpson MD completed Complex e/m visit add on Gallo Diehl [...] completed EKG Annie Simpson MD completed SNOMED-CT: [id number] Current Medications Documented Annie Simpson MD completed
--- OUTSIDE RECORDS SUMMARY | 2024-06-26 12:55 | XMS_ITS | Encounter Summary ---
Author Organization [facility] Address [address] [place] [address] Care Team Providers Care Inspector And Clipper Name Role Phone Agustin Flor MD Primary Care Provider [phone] Mabel Del Real RN Unavailable Unavailable Shreyas Phillips MD Unavailable Bebe Hernandez PA-C Unavailable Nanda Rausch RN Unavailable Unavailable Encounter Details Date Type Department Care Team (Late Contact Info) Description 06/10/2022 Lab Requisition [facility] [address] [place] [address] Chris Julian MD [address] [id number] Illness, unspecified Social History Tobacco Use Types Packs/Day Years Used Date Smoking Tobacco: Never Assessed Sex and Gender Information Value Date Recorded Sex Assigned at Not on file Gender Identity Female 08/19/2023 1:35 PM CDT Sexual Orientation Not on file documented as of this encounter Plan of Treatment Upcoming Encounters Date Type Department Care Team (Late Contact Info) Description 09/14/2024 12:40 PM CDT Appointment [facility] [address] [place] [address] Shreyas Phillips MD [address] [place] [id number] (work) documented as of this encounter Procedures Procedure Name Priority Date/Time Associated Diagnosis Comments PATHOLOGY TISSUE Routine 06/08/2022 11:1 9 AM CDT Illness, unspecified documented in this encounter Results * PATHOLOGY TISSUE (06/08/2022 11:19 AM CDT) Case Report Surgical Pathology Report Case: [id number] Authorizing Provider: Chris Julian MD Collected: 06/08/2022 11:19 AM Ordering Location: [facility] Pathology Lab Received: 06/10/2022 11:21 AM Pathologist: Reshma Singh MD Specimen: Lymph Node Biopsy, CT Biopsy Left Lymph Node 06/11/2022 10:47 AM CDT [facility] Final Diagnosis Lymph node, left paracolic, needle core biopsy: - Limited specimen with 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 Flow cytometry ([facility], [address] [place], [place] [address]) is reported to show an atypical IY47-myozcgov population that lacks surface immunoglobulin light chain expression. 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 Given the limited nature [...] Clinical correlation is advised. 06/11/2022 10:47 AM [facility] Clinical History Retroperitoneal lymphadenopathy. 06/11/2022 10:47 AM [facility] Materials Received Received for initial diagnosis are two slides and one block (A1) labeled [id number] along with a copy of the outside pathology report. The materials originate from [facility]. All original materials are returned to the referring institution, along with a copy of our final report. 06/11/2022 10:47 AM [facility] Disclaimer The performance characteristics of all immunohistochemical and indirect immunofluorescence stains (if any) cited in this report were determined by the Histopathology Laboratory of [facility]. Some of these tests were developed [...] attending (teaching) pathologist. 06/11/2022 10:47 AM CDT [facility] Embedded Images 06/11/2022 10:47 AM T [facility] Pathology/Cytolo gy BIOPSY OF LYMPH NODE / Unknown 06/08/2022 11:19 AM CDT 06/10/2022 11:21 AM CDT Chris Julian MD LAB - PATHOLOGY/CYTO LOGY ORDERABLES [facility] [address] [place] [place] [address], [facility] [phone] documented in this encounter Visit Diagnoses Diagnosis Illness, unspecified documented in this encounter Care Teams Inspector And Clipper Relationship Specialty Start Date End Date Agustin Flor MD [address] [place] [address] PCP - General General Medicine 06/28/22 Mabel Del Real RN Registered Nurse Orthopedic Surgery 02/28/23 03/27/24 [place] [address] [place] [phone] Physician Hematology and Oncology 03/23/23 Bebe Hernandez, PA-C [address] [place] [address] Physician Supervisor Blood Physician Supervisor Blood 03/23/23 Nanda Rausch, RN Registered Nurse 03/23/23 documented as of this encounter
--- OUTSIDE RECORDS SUMMARY | 2024-06-26 12:56 | XMS_ITS | Data Portability ---
Author Organization [place] [facility], Main Office Address [address] [place] [address] Assessment Encounter Date Assessment Date Assessment LastModified by Organization Details LastModified Time 09/21/2022 09/21/2022 Will cut her long-acting insulin in half will cut her mealtime insulin in half she will follow-up with me in 2 months Levemir will be 10 units Novolin will be 5 unit [email or web address] Not available 09/21/2022 22:52:16 11/30/2022 11/30/2022 Parking placard blood pressure diabetes hyperlipidemia discussed follow-up 3 month [email or web address] Not available 11/30/2022 22:36:44 02/01/2023 02/01/2023 Podiatry She can see Ortho as well Continue with her medicines for her hyperlipidemia diabetes and hypertension Follow-up with me in a month [email or web address] Not available 02/02/2023 21:20:40 03/07/2023 03/07/2023 Given her previous cardiac history will get her set up with Cardiology for surgical clearance blood pressure appears to be well-controlled at 110/62 blood work will also be ascertained for biochemical management of disease processes of medications follow-up with me in about 3 months [email or web address] Not available 03/28/2023 18:10:16 Plan of Treatment Reminders Order Date Submit Date Provider Last Modified By Organization Details Last Modified Time Details Appointments None recorded. Lab CBC w/ auto diff 2022 023 [facility] (Lab), [address] [place], [address], 17:56:00 CMP, serum or plasma 2022 023 [facility] (Lab), [address] [place], [address], 3 19:22:35 lipid panel, serum 2022 023 [facility] (Lab), [address] [place], [address], 3 19:22:40 glycohemogl obin, total, blood 2022 023 [facility] (Lab), [address] [place], [address], 3 19:20:54 urinalysis, dipstick 2022 023 [email or web address] [id number] [facility], [address] [facility] [address], [place], [address], 3 16:45:58 Referral cardiologis t referral 2022 023 Annie Simpson MD, [address] [facility], [address], [place], [address], 4 19:10:44 Procedures None recorded. Surgeries None recorded. Imaging CT, urogram 2022 023 [facility] ([facility]), [address] [place], [address], 3 05:01:33 Medication Orders None recorded. Patient TargetsNo targets recorded. Patient InstructionsNo instructions recorded. Reason for Referral Director Targeted Marketing Referral for Pr e-surgery evaluation Referring Physician: Agustin Flor, Internal Medicine, Encounter Date: 03/07/2023 Results Created Date Observation Date Name Description Value Unit Range Abnormal Flag Note LastModifiedBy Organization Detail LastModifiedTime 06/23/19 23 06/22/2022 URINA LYSIS COMPL ETE/I RIS W/RFX color YELLOW Not Available [facility] (Lab) [address] [place], [address], 06/22/2022 14:38:50 06/23/19 23 06/22/2022 URINA LYSIS COMPL ETE/I RIS W/RFX appear EX.TUR BID Not Available [facility] (Lab) [address] [place], [address], 06/22/2022 14:38:50 06/23/19 23 06/22/2022 URINA LYSIS COMPL ETE/I RIS W/RFX specific gravity 1.016 1.001- 1.030 Not Available [facility] (Lab) [address] [place], [address], 06/22/2022 14:38:50 06/23/19 23 06/22/2022 URINA LYSIS COMPL ETE/I RIS W/RFX pH 6.5 pH_un its 5.0-9. 0 Not Available [facility] (Lab) [address] [place], [address], 06/22/2022 14:38:50 06/23/19 23 06/22/2022 URINA LYSIS COMPL ETE/I RIS W/RFX leukocytes NEGATI VE palak/u L negati ve- Not Available [facility] (Lab) [address] [place], [address], 06/22/2022 14:38:50 06/23/19 23 06/22/2022 URINA LYSIS COMPL ETE/I RIS W/RFX nitrite NEGATI VE negati ve- Not Available [facility] (Lab) [address] [place], [address], 06/22/2022 14:38:50 06/23/19 23 06/22/2022 URINA LYSIS COMPL ETE/I RIS W/RFX protein 10 mg/dL negati ve- abnormal Not Available [facility] (Lab) [address] [place], [address], 06/22/2022 14:38:50 06/23/19 23 06/22/2022 URINA LYSIS COMPL ETE/I RIS W/RFX glucose NORMAL mg/dL normal - Not Available [facility] (Lab) [address] [place], [address], 06/22/2022 14:38:50 06/23/19 23 06/22/2022 URINA LYSIS COMPL ETE/I RIS W/RFX ketones NEGATI VE mg/dL negati ve- Not Available [facility] (Lab) [address] [place], [address], 06/22/2022 14:38:50 06/23/19 23 06/22/2022 URINA LYSIS COMPL ETE/I RIS W/RFX urobilinogen NORMAL mg/dL normal - Not Available [facility] (Lab) [address] [place], [address], 06/22/2022 14:38:50 06/23/19 23 06/22/2022 URINA LYSIS COMPL ETE/I RIS W/RFX bilirubin NEGATI VE mg/dL negati ve- Not Available [facility] (Lab) [address] [place], [address], 06/22/2022 14:38:50 06/23/19 23 06/22/2022 URINA LYSIS COMPL ETE/I RIS W/RFX blood NEGATI VE mg/dL negati ve- Not Available [facility] (Lab) [address] [place], [address], 06/22/2022 14:38:50 06/23/19 23 06/22/2022 URINA LYSIS COMPL ETE/I RIS W/RFX white blood cells 0-8 /i??h pfi?? 0-8 Not Available [facility] (Lab) [address] [place], [address], 06/22/2022 14:38:50 06/23/19 06/22/2022 URINA LYSIS COMPL ETE/I RIS W/RFX red blood cells 0-4 /i??h pfi?? 0-4 Not Available [facility] (Lab) [address] [place], [address], 06/22/2022 14:38:50 06/23/19 23 06/22/2022 URINA LYSIS COMPL ETE/I RIS W/RFX bacteria NONE Not Available [facility] (Lab) [address] [place], [address], 06/22/2022 14:38:50 06/23/19 23 06/22/2022 URINA LYSIS COMPL ETE/I RIS W/RFX mucous OCCASI ONAL /i??l pfi?? abnormal Not Available [facility] (Lab) [address] [place], [address], 06/22/2022 14:38:50 06/23/19 23 06/22/2022 URINA LYSIS COMPL ETE/I RIS W/RFX squamous epithelial PACKED FIELD /i??l pfi?? abnormal Not Available [facility] (Lab) [address] [place], [address], 06/22/2022 14:38:50 06/23/19 23 06/22/2022 URINA LYSIS COMPL ETE/I RIS W/RFX hyaline cast FEW /i??l pfi?? none seen- abnormal Not Available [facility] (Lab) [address] [place], [address], 06/22/2022 14:38:50 07/03/19 23 07/02/2022 urina lysis , dipst ick Leukocytes (reference range: negative palak/ l) Negati ve Not Available [facility] [address], [place], [address], 07/02/2022 09:52:54 07/03/19 07/02/2022 urina lysis , dipst ick Nitrite (reference rage: negative mg/dl) negati ve Not Available [facility] [address], [place], [address], 07/02/2022 09:52:54 07/03/19 23 07/02/2022 urina lysis , dipst ick Urobilinogen (reference range: 0.2-1 mg/dl) 0.2 Not Available [facility] [address] [place] [address] [address], [place], [address], 07/02/2022 09:52:54 07/03/19 23 07/02/2022 urina lysis , dipst ick Protein (reference range: negative mg/dl) Negati ve Not Available [facility] [address] [place] [address] [address] [facility] [address], [place], [address], 07/02/2022 09:52:54 07/03/19 23 07/02/2022 urina lysis , dipst ick pH (reference range: 5-7) 7.0 Not Available [facility] [address], [place], [address], 07/02/2022 09:52:54 07/03/19 23 07/02/2022 urina lysis , dipst ick Blood (reference range: negative Aaron/ l) Negati ve Not Available [facility] [address], [place], [address], 07/02/2022 09:52:54 07/03/19 23 07/02/2022 urina lysis , dipst ick Specific [place] (reference range: 1.005-1.030) 1.015 Not Available [facility] [address] [place] [address] [address] [facility] [address], [place], [address], 07/02/2022 09:52:54 07/03/19 23 07/02/2022 urina lysis , dipst ick Ketone (reference range: negative mg/dl) Negati ve Not Available [facility] [address] [place] [address] [address], [place], [address], 07/02/2022 09:52:54 07/03/19 23 07/02/2022 urina lysis , dipst ick Bilirubin (reference range: negative mg/dl) Negati ve Not Available [facility] [address] [place] [address] [address], [place], [address], 07/02/2022 09:52:54 07/03/19 23 07/02/2022 urina lysis , dipst ick Glucose (reference range: negative mg/dl) 500 Not Available [facility] [address] [place] [address] [address], [place], [address], 07/02/2022 09:52:54 07/03/19 23 07/02/2022 urina lysis , dipst ick Appearance Clear Not Available [facility] [address], [place], [address], 07/02/2022 09:52:54 07/03/19 23 07/02/2022 urina lysis , dipst ick Color Yellow Not Available [facility] [address], [place], [address], 07/02/2022 09:52:54 07/20/19 23 07/19/2022 urina lysis , dipst ick Leukocytes (reference range: negative palak/ l) Negati ve Not Available [facility] [address] [place] [address] [address], [place], [address], 07/19/2022 11:58:47 07/20/19 23 07/19/2022 urina lysis , dipst ick Nitrite (reference rage: negative mg/dl) negati ve Not Available [facility] [address], [place], [address], 07/19/2022 11:58:47 07/20/19 23 07/19/2022 urina lysis , dipst ick Urobilinogen (reference range: 0.2-1 mg/dl) 0.2 Not Available [facility] [address] [facility], [place], [address], 07/19/2022 11:58:47 07/20/19 23 07/19/2022 urina lysis , dipst ick Protein (reference range: negative mg/dl) Trace Not Available [facility] [address] [facility] [address], [place], [address], 07/19/2022 11:58:47 07/20/19 23 07/19/2022 urina lysis , dipst ick pH (reference range: 5-7) 6.0 Not Available [facility] [address] [facility] [address], [place], [address], 07/19/2022 11:58:47 07/20/19 23 07/19/2022 urina lysis , dipst ick Blood (reference range: negative Aaron/ l) Large Not Available [facility] [address] [place] [address] [address] [facility] [address], [place], [address], 07/19/2022 11:58:47 07/20/19 23 07/19/2022 urina lysis , dipst ick Specific [place] (reference range: 1.005-1.030) 1.000 Not Available [facility] [address] [facility] [address], [place], [address], 07/19/2022 11:58:47 07/20/19 23 07/19/2022 urina lysis , dipst ick Ketone (reference range: negative mg/dl) Trace Not Available [facility] [address] [facility] [address], [place], [address], 07/19/2022 11:58:47 07/20/19 23 07/19/2022 urina lysis , dipst ick Bilirubin (reference range: negative mg/dl) Negati ve Not Available [facility] [address] [facility], [place], [address], 07/19/2022 11:58:47 07/20/19 23 07/19/2022 urina lysis , dipst ick Glucose (reference range: negative mg/dl) Negati ve Not Available [facility] [address] [facility], [place], [address], 07/19/2022 11:58:47 07/20/19 23 07/19/2022 urina lysis , dipst ick Appearance Clear Not Available [facility] [address] [facility], [place], [address], 07/19/2022 11:58:47 07/20/19 23 07/19/2022 urina lysis , dipst ick Color Yellow Not Available [facility] [address] [facility], [place], [address], 07/19/2022 11:58:47 03/07/20 23 03/07/2023 CBC/C OMPLE TE BLD COUNT W/DIF F white blood cells 5.0 x10'3 /uL 4.2-10 .8 Not Available [facility] ([facility]) [address], [place], [address], 03/07/2023 17:56:00 03/07/20 23 03/07/2023 CBC/C OMPLE TE BLD COUNT W/DIF F red blood cells 4.22 x10'6 /uL 3.80-5 .20 Not Available [facility] (Lab) [address] [place], [address], 03/07/2023 17:56:00 03/07/20 23 03/07/2023 CBC/C OMPLE TE BLD COUNT W/DIF F hemoglobin 12.6 g/dL 12.0-1 5.6 Not Available [facility] (Lab) [address] [facility] [place], [address], 03/07/2023 17:56:00 03/07/20 23 03/07/2023 CBC/C OMPLE TE BLD COUNT W/DIF F hematocrit 40.4 % 35.7-4 5.7 Not Available [facility] (Lab) [address] [place], [address], 03/07/2023 17:56:00 03/07/20 23 03/07/2023 CBC/C OMPLE TE BLD COUNT W/DIF F mean red cell volume 95.7 fL 82.0-9 9.0 Not Available [facility] (Lab) [address] [place], [address], 03/07/2023 17:56:00 03/07/20 23 03/07/2023 CBC/C OMPLE TE BLD COUNT W/DIF F mean red cell hemoglobin 29.9 pg 27.0-3 3.0 Not Available [facility] (Lab) [address] [place], [address], 03/07/2023 17:56:00 03/07/20 23 03/07/2023 CBC/C OMPLE TE BLD COUNT W/DIF F mean RBC HGB concentratio n 31.2 g/dL 31.0-3 6.0 Not Available [facility] (Lab) [address] [place], [address], 03/07/2023 17:56:00 03/07/20 23 03/07/2023 CBC/C OMPLE TE BLD COUNT W/DIF F red cell distribution width 14.4 % 11.8-1 5.5 Not Available [facility] (Lab) [address] [place], [address], 03/07/2023 17:56:00 03/07/20 23 03/07/2023 CBC/C OMPLE TE BLD COUNT W/DIF F platelets 204 x10'3 /uL 150-40 0 Not Available [facility] (Lab) [address] [place], [address], 03/07/2023 17:56:00 03/07/20 23 03/07/2023 CBC/C OMPLE TE BLD COUNT W/DIF F mean platelet volume 9.9 fL 9.0-12 .4 Not Available [facility] (Lab) [address] [place], [address], 03/07/2023 17:56:00 03/07/20 23 03/07/2023 CBC/C OMPLE TE BLD COUNT W/DIF F neutrophils 71.4 % 39.0-7 2.0 Not Available [facility] (Lab) [address] [place], [address], 03/07/2023 17:56:00 03/07/20 23 03/07/2023 CBC/C OMPLE TE BLD COUNT W/DIF F lymphocytes 14.7 % 16.0-4 7.0 low Not Available [facility] (Lab) [address] [place], [address], 03/07/2023 17:56:00 03/07/20 23 03/07/2023 CBC/C OMPLE TE BLD COUNT W/DIF F monocytes 10.7 % 5.0-12 .0 Not Available [facility] (Lab) [address] [place], [address], 03/07/2023 17:56:00 03/07/20 23 03/07/2023 CBC/C OMPLE TE BLD COUNT W/DIF F eosinophils 2.0 % 1.0-7. 0 Not Available [facility] (Lab) [address] [place], [address], 03/07/2023 17:56:00 03/07/20 23 03/07/2023 CBC/C OMPLE TE BLD COUNT W/DIF F basophils 0.8 % 0.0-2. 0 Not Available [facility] (Lab) [address] [place], [address], 03/07/2023 17:56:00 03/07/20 23 03/07/2023 CBC/C OMPLE TE BLD COUNT W/DIF F immature granulocytes 0.4 % 0.00-0 .50 Not Available [facility] (Lab) [address] [place], [address], 03/07/2023 17:56:00 03/07/2003/07/2023 CBC/C OMPLE TE BLD COUNT W/DIF F neutrophils, absolute count 3.54 x10'3 /uL 1.5-8. 0 Not Available [facility] (Lab) [address] [place], [address], 03/07/2023 17:56:00 03/07/2003/07/2023 CBC/C OMPLE TE BLD COUNT W/DIF F lymphocytes, absolute count 0.73 x10'3 /uL 1.07-3 .43 low Not Available [facility] (Lab) [address] [place], [address], 03/07/2023 17:56:00 03/07/20 23 03/07/2023 CBC/C OMPLE TE BLD COUNT W/DIF F monocytes, absolute count 0.53 x10'3 /uL 0.29-0 .99 Not Available [facility] (Lab) [address] [place], [address], 03/07/2023 17:56:00 03/07/20 23 03/07/2023 CBC/C OMPLE TE BLD COUNT W/DIF F eosinophils, absolute count 0.10 x10'3 /uL 0.02-0 .53 Not Available [facility] (Lab) [address] [place], [address], 03/07/2023 17:56:00 03/07/20 23 03/07/2023 CBC/C OMPLE TE BLD COUNT W/DIF F basophils, absolute count 0.04 x10'3 /uL 0.01-0 .08 Not Available [facility] (Lab) [address] [place], [address], 03/07/2023 17:56:00 03/07/20 23 03/07/2023 CBC/C OMPLE TE BLD COUNT W/DIF F immature granulocytes ,absolute 0.02 x10'3 /uL 0.00-0 .05 Not Available [facility] (Lab) [address] [place], [address], 03/07/2023 17:56:00 03/07/20 23 03/07/2023 CBC/C OMPLE TE BLD COUNT W/DIF F nucleated red blood cells 0.0 % -0 Not Available [facility] (Lab) [address] [place], [address], 03/07/2023 17:56:00 03/07/20 23 03/07/2023 CBC/C OMPLE TE BLD COUNT W/DIF F NRBC# 0.00 x10'3 /uL Not Available [facility] (Lab) [address] [place], [address], 03/07/2023 17:56:00 03/07/20 23 03/07/2023 HEMOG LOBIN A1C HA1C 6.1 % 4.0-6. 0 high Diabe ash Scree luis fernando Crite jacqueline: <5.7% Consi stent with absen ce of diabe ash 5.7-6 .4% Consi stent with incre ased risk for diabe ash (pred iabet es) >OR=6 .5% Consi stent with diabe ash REFER ENCE: Diabe ash Care 2016, 39(Mejia ppl.1 ):s13 -s22 Not Available [facility] (Lab) [address] [place], [address], 03/07/2023 19:20:54 03/07/20 23 03/07/2023 COMPR EHENS ROBEL METAB OLIC PANEL sodium 141 mmol/ L 137-14 5 Not Available [facility] (Lab) [address] [place], [address], 03/07/2023 19:22:35 03/07/20 23 03/07/2023 COMPR EHENS ROBEL METAB OLIC PANEL potassium 3.8 mmol/ L 3.5-5. 1 Not Available [facility] (Lab) [address] [place], [address], 03/07/2023 19:22:35 03/07/20 23 03/07/2023 COMPR EHENS ROBEL METAB OLIC PANEL chloride 103 mmol/ L 98-107 Not Available [facility] (Lab) [address] [place], [address], 03/07/2023 19:22:35 03/07/20 23 03/07/2023 COMPR EHENS ROBEL METAB OLIC PANEL carbon dioxide 30 mmol/ L 22-30 Not Available [facility] (Lab) [address] [place], [address], 03/07/2023 19:22:35 03/07/20 23 03/07/2023 COMPR EHENS ROBEL METAB OLIC PANEL anion gap 11.8 mmol/ L 14-22 low Not Available [facility] (Lab) [address] [place], [address], 03/07/2023 19:22:35 03/07/20 23 03/07/2023 COMPR EHENS ROBEL METAB OLIC PANEL glucose 84 mg/dL 70-99 Not Available [facility] (Lab) [address] [place], [address], 03/07/2023 19:22:35 03/07/20 23 03/07/2023 COMPR EHENS ROBEL METAB OLIC PANEL BUN 25 mg/dL 8-19 high Not Available [facility] (Lab) [address] [place], [address], 03/07/2023 19:22:35 03/07/20 23 03/07/2023 COMPR EHENS ROBEL METAB OLIC PANEL creatinine 0.77 mg/dL 0.66-1 .25 Not Available [facility] (Lab) [address] [place], [address], 03/07/2023 19:22:35 03/07/20 23 03/07/2023 COMPR EHENS ROBEL METAB OLIC PANEL GFR >60 Refer ence Range : [place] ge GFR Healt hy Adult : >60 [...] years of age, a pedia tric GFR magdau traci is avail able on the [facility] websi te: [email or web address] :[email or web address] [email or web address] [email or web address] rg/pr ofess ional s/kdo qi/gf r_cal culat or Not Available [facility] (Lab) [address] [place], [address], 03/07/2023 19:22:35 03/07/20 23 03/07/2023 COMPR EHENS ROBEL METAB OLIC PANEL alkaline phosphatase 56 U/L 38-126 Not Available [facility] (Lab) [address] [place], [address], 03/07/2023 19:22:35 03/07/20 23 03/07/2023 COMPR EHENS ROBEL METAB OLIC PANEL alanine aminotransfe rase 27 U/L 0-35 Not Available [facility] (Lab) [address] [place], [address], 03/07/2023 19:22:35 03/07/20 23 03/07/2023 COMPR EHENS ROBEL METAB OLIC PANEL aspartate aminotransfe rase 25 U/L 15-37 Not Available [facility] (Lab) [address] [place], [address], 03/07/2023 19:22:35 03/07/20 23 03/07/2023 COMPR EHENS ROBEL METAB OLIC PANEL bilirubin, total 0.20 mg/dL 0.20-1 .30 Not Available [facility] (Lab) [address] [place], [address], 03/07/2023 19:22:35 03/07/20 23 03/07/2023 COMPR EHENS ROBEL METAB OLIC PANEL calcium 9.8 mg/dL 8.4-10 .2 Not Available [facility] (Lab) [address] [place], [address], 03/07/2023 19:22:35 03/07/20 23 03/07/2023 COMPR EHENS ROBEL METAB OLIC PANEL total protein 6.3 g/dL 6.3-8. 2 Not Available [facility] (Lab) [address] [place], [address], 03/07/2023 19:22:35 03/07/20 23 03/07/2023 COMPR EHENS ROBEL METAB OLIC PANEL albumin 4.1 g/dL 3.0-4. 4 Not Available [facility] (Lab) [address] [place], [address], 03/07/2023 19:22:35 03/07/20 23 03/07/2023 COMPR EHENS ROBEL METAB OLIC PANEL globulin 2.2 g/dL 2.6-4. 2 low Not Available [facility] (Lab) [address] [place], [address], 03/07/2023 19:22:35 03/07/20 23 03/07/2023 COMPR EHENS ROBEL METAB OLIC PANEL A/G ratio 1.9 ratio 1.0-2. 0 Not Available [facility] (Lab) [address] [place], [address], 03/07/2023 19:22:35 03/07/20 23 03/07/2023 LIPID PANEL cholesterol 125 mg/dL 140-19 9 low NIH ITZEL NSUS RECOM MENDA TION FOR CEASAR STERO L: ADULT CHILD LOW RISK: <200 <170 BORDE RLINE : <200- 239 ----- HIGH RISK: >240 >200 Not Available [facility] (Lab) [address] [place], [address], 03/07/2023 19:22:40 03/07/20 23 03/07/2023 LIPID PANEL triglyceride s 273 mg/dL 0-150 high NIH ITZEL NSUS REPOR T RECOM MENDA TION FOR TRIGL YCERI GIAN: ADULT CHILD LOW RISK: <150 ----- BODER LINE: 150-1 99 ----- HIGH RISK: >200 ----- Not Available [facility] (Lab) [address] [place], [address], 03/07/2023 19:22:40 03/07/20 23 03/07/2023 LIPID PANEL HDL cholesterol 63 mg/dL 40- Not Available [facility] (Lab) [address] [place], [address], 03/07/2023 19:22:40 03/07/20 23 03/07/2023 LIPID PANEL LDL cholesterol, calculated 7 mg/dL 0-130 NIH ITZEL NSUS REPOR T RECOM MENDA TIONS FOR LDL: ADULT CHILD LOW RISK <130 <110 (OPTI MAL LDL) <100 ----- JAC RLINE : 130-1 59 ----- HIGH RISK: >160 >130 A TRIGL YCERI DE RESUL T >400 INVAL IDATE S THE CALCU LATIO N FOR LDL FRACT IONAT ION - THE LDL RESUL T WILL NOT BE REPOR ARTHUR. Not Available [facility] (Lab) [address] [place], [address], 03/07/2023 19:22:40 07/03/19 23 07/02/2022 US, feroz er No observ ation record ed. [email or web address] [facility] [address] [facility] [address], [place], [address], 07/05/2022 10:36:06 07/16/19 23 07/15/2022 XR, chest , 2 view [facility] [address] [place] [address] Patien t Name: PAULA ORELLANA Access ion #: [id number] Sex: F : 1960 5 Locati on: RAD Attend ing Physic jakob: JEAN CLAUDE LOPEZ ng Physic jakob: DAKOTA FLOR Exam Date: [...] 2 view chest. Page 1 of 2 [facility] Name: PAULA ORELLANA Access ion #: [id number] Sex: F : 1960 5 Exam Date: 023 1:37 PM Exam Name: XR CHEST 2V Admitt ing Diagno sis(es ): Create d and electr onical ly signed by: Brandan baker MD Signed Date: 4:46 PM (CT) Dictat ed by: Brandan baker MD DD: 4:46 PM (CT) DT: 4:46 PM (CT) Page 2 of 2 [facility] (Imaging) [address] [place], [address], 09/23/2022 09:59:41 09/17/19 23 09/16/2022 XR, chest No observ ation record ed. [email or web address] [address] [place] [address], [address], 09/23/2022 10:00:00 Result Notes None recorded. Problems Name Problem SNOMED Code Status Onset Date Resolution Date Notes Provider Name and Address Organization Details Recorded Time Cellulitis of foot 670538552 Active 2021 Not Available [facility] 4 12:02:15 Computed tomography result abnormal 643476789 Active 2022 Not Available [facility] 4 12:02:15 Postoperat [facility] care Active 2021 Not Available [facility] 4 12:02:15 Chronic obstructiv e pulmonary disease 52365746 Active 2016 Not Available [facility] 4 12:02:15 CT of abdomen abnormal 8547744098069 9107 Active 2022 Not Available [facility] 4 12:02:15 Cirrhosis of liver 32706528 Active 2016 Not Available [facility] 4 12:02:15 Neuropathy due to diabetes mellitus 920069598 Active 2020 Not Available [facility] 4 12:02:15 Low back pain 152241962 Active 2021 Not Available [facility] 4 12:02:15 Chest pain 66831071 Active 2022 Not Available [facility] 4 12:02:15 Type 2 diabetes mellitus without complicati on 815667606 Active 2021 Not Available [facility] 4 12:02:15 Former heavy tobacco smoker [id number] 00 Active 2016 Not Available [facility] 4 12:02:15 Acute urinary tract infection 493133073 Active 2021 Not Available [facility] 4 12:02:15 Type 2 diabetes mellitus 81246099 Active 2020 Not Available [facility] 4 12:02:15 Cough 41390285 Active 2021 Not Available [facility] 4 12:02:15 Upper respirator y infection 17741262 Active 2021 Not Available [facility] 4 12:02:15 Hyperlipid emia 57072666 Active 2020 Not Available [facility] 4 12:02:15 Essential hypertensi on 20666134 Active 2020 Not Available [facility] 4 12:02:15 Otitis media 07687615 Active 2021 Not Available [facility] 4 12:02:15 Urinary tract infectious disease 54206312 Active 2021 Not Available [facility] 12:[facility]15 Closed fracture of fifth metatarsal bone 96617817 Active 2020 Not Available [facility] 4 12:02:15 Mental disorder 81446660 Active 2020 Not Available [facility] 4 12:02:15 COVID-19 428818777 Active 2021 Not Available [facility] 4 12:02:16 Hyponatrem ia 07316852 Active 2021 Not Available [facility] 4 12:02:16 Dysuria 23864549 Active 2022 Not Available [facility] 4 12:02:15 Flank pain 682890825 Active 2022 Not Available [facility] 4 12:02:15 Increased frequency of urination 985885041 Active 2022 Not Available [facility] 4 12:02:15 Urge incontinen ce of urine 57200188 Active 2022 Not Available [facility] 4 12:02:16 Dyspnea 236909350 Active 2022 Not Available [facility] 4 12:02:15 Nausea and vomiting 81742544 Active 2022 Not Available [facility] 4 12:02:15 Hydrourete r 12922636 Active 2022 Not Available [facility] 4 12:02:15 High grade B-cell lymphoma 500665297 Active 2022 Not Available [facility] 4 12:02:15 Uncontroll ed type 2 diabetes mellitus 865372474 Active 2022 Not Available [facility] 4 12:02:15 Notes:Medical History: Depre ssion Rhinitis [...] Covid 06/02/2020 Some problems listed in Document: #[id number] could not be added to this patient's chart. Please review this document and add these problems to the patient's chart manually as needed. Problem Notes None recorded. Procedures Surgical History Date Name Laterality Status Provider Name and Address Organization Details Recorded Time 2 Foot Surgery completed Not Available [facility] 023 05:55:53 Tonsillectomy completed Not Available [facility] 05/26/2022 05:55:53 Hyste[facility] completed [facility] 05/26/2022 05:55:53 Imaging Results Imaging Date Name Status LastModified by Organiz ation Details LastModified Time 07/02/2022 US, bladder completed [id number] [facility] [place] [address] [facility] [address], [place], [address], 07/05/2022 10:36:06 07/15/2022 XR, chest, 2 view completed [id number] [facility] (Imaging) [address] [place], [address], 09/23/2022 09:59:41 09/16/2022 XR, chest completed [id number] [facility] [address] [facility] [address], [place], [address], 09/23/2022 10:00:00 Procedure Notes None recorded. Medical Equipment None Reported. Allergies Allergen ID Allergen Name Allergen Category Reaction Reaction Severity Criticality Documentation Date Start Date Code Code System Note Provider Name and Address Organization Details Recorded Time 60579 hydrochlo rothiazid e medicatio n Not available Not available Not available 05/26/2022 5487 RxNorm Not Available [facility] 3 06:08:25 09974 clonazepa m medicatio n Not available Not available Not available 05/26/2022 2598 RxNorm uncon troll ed muscl e movem ent Not Available [facility] 3 06:08:25 78916 chlorthal idone medicatio n Not available Not available Not available 05/26/2022 2409 RxNorm Not Available [facility] 3 06:08:25 90553 aspirin medicatio n eye swelling severe Not available 05/26/2022 1191 RxNorm Not Available [facility] 3 06:08:25 08961 azithromy john medicatio n facial swelling Not available Not available 05/26/2022 08108 RxNorm tongu e swell ing Not Available [facility] 3 06:08:25 27924 cefdinir medicatio n rash Not available Not available 04/21/20232023 79978 RxNorm Quin Vieira RN [facility], [place] - [facility] [employer] 4 16:44:05 Medications Name Sig Start Date [...] completed Not Available Not Available Not Available [employer] Ultra Test strips TEST BLOOD SUGAR FOUR [...] e Mini Pen Needle 31 gauge x 06/10 DIRECTED TO INJECT INSULIN FOUR TIMES DAILY [...] Available Not Available Not Available Flucelvax Quad 2780-6832 (PF) 60 mcg (15 mcg x 4)/0.5 [...] Updated DateTime 3 162.56 cm 29.4 kg/m2 71470.3 g 89 % 89 % 97.3 [degF] 78 /min 125 mm[Hg] 83 mm[Hg] KINGSLEY Willoughby - Griselda HI [employer] [facility] 3 12:36:54 Date Recorded Body height Body mass index (BMI) Body weight Body temperature Heart rate Systolic blood pressure Diastolic blood pressure Provider Name and Address Organization Details Last Updated DateTime 3 162.56 cm 23.5 kg/m2 11219.1 5 g 97.6 [degF] 98 /min 102 mm[Hg] 60 mm[Hg] Estefani Thorne MARICRUZSusan [facility] [employer] [facility] 3 11:28:14 Date Recorded Body height Body temperature Heart rate Systolic blood pressure Diastolic blood pressure Provider Name and Address Organization Details Last Updated DateTime 3 162.56 cm 97.5 [degF] 91 /min 114 mm[Hg] 68 mm[Hg] Ritika Espinoza RN [facility] [employer] [facility] 3 15:06:55 Date Recorded Body height Body temperature Heart rate Systolic blood pressure Diastolic blood pressure Provider Name and Address Organization Details Last Updated DateTime 02/01/2023 162.56 cm 97.4 [degF] 81 /min 110 mm[Hg] 68 mm[Hg] Estefani Thorne Susan [facility] [employer] [facility] 3 15:10:12 Date Recorded Body height Body temperature Heart rate Oxygen saturation Oxygen saturation in Arterial blood by Pulse oximetry Systolic blood pressure Diastolic blood pressure Provider Name and Address Organization Details Last Updated DateTime 3 162.56 cm 97.5 [degF] 87 /min 95 % 95 % 110 mm[Hg] 62 mm[Hg] Estefani Thorne Susan [facility] [employer] [facility] 3 15:26:25 Social History Question Answer Notes LastModified by Organization Details LastModified Time Tobacco Smoking Status Former Smoker quit 2010 Not Available [facility] 05/26/2022 05:55:15 Do You Have An Advance Directive? No MIGRATION.0301 [id number] Information not available 05/26/2022 What Is Your Level Of Alcohol Consumption? None Quit 2007 MIGRATION.0301 765351 Information not available 05/26/2022 Do You Wear A Helmet When Biking? No MIGRATION.030 466742 Information not available 05/26/2022 What Is Your Level Of Caffeine Consumption? None MIGRATION.0301 183001 Information not available 05/26/2022 In The 14 Days Before Symptom Onset, Have You Had Close Contact With A Laboratory-confi rmed COVID-19 While That Case Was Ill? No MIGRATION.0301 500756 Information not available 05/26/2022 In The 14 Days Before Symptom Onset, Have You Had Close Contact With A Person Who Is Under Investigation For COVID-19 While That Person Was Ill? No MIGRATION.0301 864410 Information not available 05/26/2022 What Type Of Diet Are You Following? REGULAR MIGRATION.0301 357425 Information not available 05/26/2022 What Is The Highest Grade Or Level Of School You Have Completed Or The Highest Degree You Have Received? [id number] MIGRATION.0301 828074 Information not available 05/26/2022 Have There Been Any Changes To Your Family Or Social Situation? No MIGRATION.0301 597191 Information not available 05/26/2022 What Is The Fluoride Status Of Your Home? Unknown MIGRATION.0301 533689 Information not available 05/26/2022 When Did You Quit Smoking? 6-10yearssincelastc igarette MIGRATION.0301 009308 Information not available 05/26/2022 Are There Any Guns Present In Your Home? No MIGRATION.0301 045648 Information not available 05/26/2022 Do You Use Insect Repellent Routinely? No MIGRATION.0301 065937 Information not available 05/26/2022 Where Do You Live? SingleLevelHouse MIGRATION.0301 660535 Information not available 05/26/2022 Do You Have A Medical Power Of Manager Internship? No MIGRATION.0301 831452 Information not available 05/26/2022 What Was The Date Of Your Most Recent Tobacco Screening? 03/07/2023 [email or web address] Information not available 03/07/2023 Do You Have Any Pets? No MIGRATION.0301 043952 Information not available 05/26/2022 What Is Your Relationship Status? MIGRATION.0301 073040 Information not available 05/26/2022 Do You Use Your Seat Belt Or Car Seat Routinely? Yes MIGRATION.0301 561138 Information not available 05/26/2022 Do You Have Smoke And Carbon Monoxide Detectors In Your Home? Yes MIGRATION.0301 915000 Information not available 05/26/2022 At What Age Did You Start Smoking Tobacco? 16 MIGRATION.0301 221443 Information not available 05/26/2022 Are You Passively Exposed To Smoke? No MIGRATION.0301 205395 Information not available 05/26/2022 Are There Any Smokers In Your House? No MIGRATION.0301 569734 Information not available 05/26/2022 What Types Of Sporting Activities Do You Participate In? None MIGRATION.0301 452646 Information not available 05/26/2022 Do You Feel Stressed (tense, Restless, Nervous, Or Anxious, Or Unable To Sleep At Night)? [id number] MIGRATION.0301 245247 Information not available 05/26/2022 Do You Use Any Illicit Or Recreational Drugs? No MIGRATION.0301 586828 Information not available 05/26/2022 Do You Use Sunscreen Routinely? No MIGRATION.0301 832457 Information not available 05/26/2022 Has Tobacco Cessation Counseling Been Provided? No MIGRATION.0301 451536 Information not available 05/26/2022 Have You Recently Traveled Abroad? No MIGRATION.0301 185742 Information not available 05/26/2022 Do You Have Any Dietary Restrictions? No MIGRATION.0301 616860 Information not available 05/26/2022 Do You Or Have You Ever Used Any Other Forms Of Tobacco Or Nicotine? No MIGRATION.0301 679128 Information not available 05/26/2022 Sex: Female Functional Status Question Answer Note LastModified by [employer] ??? ion Details LastModified Time What is your exercise level? Moderate MIGRATION.[id number] 6 Information not available 05/26/2022 Mental Status None recorded. Family History Relationship Description Onset Age of this Age Resolved Age Notes LastModified by Organization Details LastModified Time Mother Hypertensive disorder MIGRATION.336 [id number] Not available 05/26/2022 05:55:57 Mother Hyperlipidem ia MIGRATION.491 [id number] Not available 05/26/2022 05:55:57 Sister Hypertensive disorder MIGRATION.816 [id number] Not available 05/26/2022 05:55:57 Sister Malignant tumor of neck MIGRATION.656 6324104 Not available 05/26/2022 05:55:57 Sister Chronic obstructive pulmonary disease MIGRATION.727 1232721 Not available 05/26/2022 05:55:57 Brother Diabetes mellitus MIGRATION.903 [id number] Not available 05/26/2022 05:55:57 Medical History Condition [...] HAVE YOU BEEN HOSPITALIZED OR SEEN IN THE MEDICAL CENTER IN THE PAST YEAR ? Y ATHEROSCLEROSIS [...] mcg/0.3 mL dose 2 completed Not Available [facility] 04/22/2023 12:02:17 Influenza, high-dose, quadrivalent, PF 2 completed Not Available [facility] 04/22/2023 12:02:17 Influenza, split virus, quadrivalent, preservative 0 completed Not Available [facility] 04/22/2023 12:02:17 Influenza, split virus, quadrivalent, preservative 9 completed Not Available [facility] 04/22/2023 12:02:17 influenza, unspecified formulation 7 completed Not Available [facility] 04/22/2023 12:02:17 COVID-19, mRNA, LNP-S, PF, 30 mcg/0.3 mL dose 1 completed Not Available [facility] 04/22/2023 12:02:17 COVID-19 vaccine, vector-nr, rS-Ad26, PF, 0.5 mL 1 completed Not Available [facility] 04/22/2023 12:02:17 influenza, unspecified formulation 5 completed Not Available [facility] 04/22/2023 12:02:17 Influenza, split virus, quadrivalent, PF 1 completed Not Available [facility] 04/22/2023 12:02:17 Past Encounters Encounter ID Performer Location Encounter Start Date Encounter Closed Date Diagnosis/Indication Diagnosis SNOMED-CT Code Diagnosis ICD10 Code Diagnosis Note [id number] [facility] [address] [address] 11/19/2020 00:00:00 11/19/2020 12:29:48 [id number] [facility] [address] [address] 12/10/2020 00:00:00 12/10/2020 12:17:27 [id number] [facility] Internal Med [address] [address] 01/30/2021 00:00:00 02/08/2021 22:11:25 [id number] [facility] [place] [address] [place] [address], [address] [address] 02/02/2021 00:00:00 02/02/2021 14:24:06 [id number] [facility] [place] [address] [facility], [address] [address] 02/10/2021 00:00:00 02/10/2021 12:54:52 [id number] [facility] [place] [address] [place] [address] 02/16/2021 00:00:00 02/16/2021 09:17:20 [id number] [facility] [place] [address], [address] [place] [address] 03/09/2021 00:00:00 03/09/2021 12:59:46 [id number] [facility] [address] [place] [address], [facility] [address] [place] [address] 03/30/2021 00:00:00 03/30/2021 22:56:25 [id number] [facility] [place] [address], [address] [place] [address] 04/20/2021 00:00:00 04/20/2021 11:25:01 [id number] [facility] [place] [address], [facility] 4 [place] [address] 04/27/2021 00:00:00 04/27/2021 19:27:40 [id number] [facility] [place] [address], [facility] 4 [place] [address] 05/04/2021 00:00:00 05/04/2021 15:45:18 [id number] [facility] [place] [address], [facility] 4 [place] [address] 05/11/2021 00:00:00 05/12/2021 08:55:56 [id number] [facility] [place] [address], [facility] 4 [place] [address] 05/25/2021 00:00:00 05/25/2021 12:49:04 [id number] [facility] Pul[facility] [address] [place] [address] 06/11/2021 00:00:00 06/11/2021 14:54:15 [id number] [facility] [address] [facility], [facility] 15 [place] [address] 06/29/2021 00:00:00 07/19/2021 16:09:18 [id number] [facility] [place] [address] [place] [address] 07/20/2021 00:00:00 07/20/2021 22:07:42 [id number] [facility] [address] [place], [place] [address]., [facility] 15 [place] [address] 08/12/2021 00:00:00 08/12/2021 21:04:41 [id number] [facility] [address] [address] 10/26/2021 00:00:00 11/10/2021 22:20:42 [id number] [facility] [address] [address] 02/01/2022 00:00:00 02/01/2022 22:49:54 [id number] [facility] [address] [address] 04/09/2022 00:00:00 04/09/2022 15:41:24 [id number] [facility] [address] [address] 05/07/2022 00:00:00 05/16/2022 16:17:25 [id number] Agustin Flor MD [facility] [address] [place], [place] [address]., [address] [address] 05/31/2022 14:34:19 05/31/2022 15:41:31 Computed tomography result abnormal 815956294 R93.89 [id number] Jean Claude Lopez NP [facility] [place] [address] [place] [address] 07/02/2022 11:38:25 07/02/2022 12:42:22 Dysuria 59423636 R30.0 We discussed avoiding bladder irritants such as carbonated beverages, caffeine, spicy/ acidic foods, alcohol, and/ or tobacco products. Will send urine cytology due to irritative urinary symptoms and past heavy smoker. Flank pain 774844542 R10 .9 pain reproducib le with palpation. I suspect pain is nerve/musc uloskeleta l related. UA today is negative for blood. No history of stones. Will check renal ultrasound to rule in/ out urologic pathology. follow-up after renal ultrasound to discuss results. Increased frequency of urination 682562169 R35.0 Avoid bladder irritants. Limit fluids 2 hours prior to bedtime. If patient is unsuccessf ul with behavioral strategies may consider anticholin ergic/beta 3 agonist or PF PT. Urge incon tinence of urine 73186856 N39.41 [id number] Agustin Flor MD [facility] Internal Med [facility] [address] [facility] [facility] [address] [place] [address] 07/05/2022 14:31:37 07/05/2022 16:10:59 Dyspnea 177783266 R06.02 Computed t omography result abnormal 994466039 R93.89 Nausea and vomiting [id number] R11.2 [id number] Jean Claude Lopez NP [facility] [address] [place] [address] [place] [address] 07/19/2022 12:22:36 07/19/2022 13:07:12 Dysuria 95362656 R30.0 We discussed avoiding bladder irritants such as carbonated beverages, caffeine, spicy/ acidic foods, alcohol, and/ or tobacco products. Will send urine cytology due to irritative urinary symptoms and past heavy smoker. 07/19/2022 Improved. Flank pain 417908994 R10 .9 get CTU. Increased frequency of urination 733580343 R35.0 Avoid bladder irritants. Limit fluids 2 hours prior to bedtime. If patient is unsuccessf ul with behavioral strategies may consider anticholin ergic/beta 3 agonist or PF PT. Urge incon tinence of urine 06437866 N39.41 Hydroureter 48601421 N13 .4 Will check CTU for structural evaluation to assess cause of left hydrourete r. No contrast allergy. I will call with results and plan appropriat e follow-up. We discussed in the abscence of structural obstructio n will need to get lasix renogram for functional assessment . 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 [id number] Agustin Flor MD [facility] Internal Med [facility] [address] [place] [address] 1 11/30/2022 14:50:19 11/30/2022 15:37:56 Essential hypertension 09074704 I10 Type 2 alok betes mellitus 43182014 E11.9 Hyperlipidemia 61186505 E78.5 [id number] Agustin Flor MD [facility] Internal Med [facility] [address] [place] [address] 02/01/2023 14:49:39 02/01/2023 16:00:58 High grade B-cell lymphoma 214708998 C85.10 Essential hypertension 81119565 I10 Hyperlipidemia 67374885 E78.5 Type 2 alok betes mellitus 28978806 E11.9 [id number] Agustin Flor MD [facility] Internal Med [facility] [address] [facility] [place] [address] 03/07/2023 14:48:19 03/07/2023 16:10:53 Pre-surgery evaluation 602376672 Z01.818 Essential hypertension 85115557 I10 Type 2 alok betes mellitus without complication 491848367 E11.9 Health Concerns Section Related Observation LastModified by Organization Detai ls LastModified Time None Recorded Concern Status LastModified by Organization Details LastModified Time None Recorded Advance Directives Directive N: Payers Encounter Date Sequence Insurance Name Policy Number Policy Gregory Covered Member ID Gregory Member ID Guarantor Name 07/19/2022 1 [facility] (MEDICARE REPLACEMENT HMO) [id number] Paula Orellana [id number] Paula Orellana 07/19/2022 2 [place] [place] Paula S Usrey [id number] Paula S Usrey 09/21/2022 1 [employer] [place]MEDICARE [place]ACEMENT HMO) [id number] Paula S Usrey [id number] Paula S Usrey 09/21/2022 2 [place] Paula S Usrey [id number] Paula S Usrey 11/30/2022 1 [employer] [place]MEDICARE [place]PLACEMENT HMO) [id number] Paula S Usrey [id number] Paula S Usrey 11/30/2022 2 [place] [facility] Paula S Usrey [id number] Paula S Usrey 02/01/2023 1 [facility] (MEDICARE REPLACEMENT HMO) [id number] Paula S Usrey [id number] Paula S Usrey 02/01/2023 2 [place] [facility] Paula S Usrey [id number] Paula S Usrey 03/07/2023 1 [facility] (MEDICARE REPLACEMENT HMO) [id number] Paula S Usrey [id number] Paula S Usrey 03/07/2023 2 [place] [facility] Paula S Usrey [id number] Paula S Usrey Notes Date Note Type [...] simple renal cysts. Jean Claude Lopez NP [address], [place], [address], [employer] 07/19/2022 13:11:51 09/21/2022 text/html Hypertension no headache or dizziness. Gets hypoglycemic sometimes after her chemo GERD is been doing fine overall she seems to be stable she had 1 episode of hypoglycemia that necessitated an ER visit Agustin Flor MD [address], [place], [address], [employer] 09/21/2022 22:52:34 11/30/2022 text/html cancer. Chemo. Bilateral footdrop. Going through therapy. Blood sugars have been okay. Agustin Flor MD [address], [place], [address], [employer] 11/30/2022 22:37:02 02/01/2023 text/html And problems wit h her feetNeuropathy badSpecialist center to OrthoWill need foot care because of her diabetes as well Agustin Flor MD [address], [place], [address], [employer] 02/02/2023 21:21:32 03/07/2023 text/html He is to have mejia rgery on feetHypertension no chest pain or shortness of breath but she does not ambulateType 2 diabetes needs an A1c no polyphagia polydipsiaCAD with stent no chest painCOPD no problems breathing at this timeB-cell lymphoma treated at [facility] Agustin Flor MD [address], [place], [address], [employer] [facility] [employer] 03/28/2023 18:10:42 OBGyn Episode No OBEpisode recorded.
--- OUTSIDE RECORDS SUMMARY | 2024-06-26 12:56 | XMS_ITS | Clinical Summary ---
Author Organization [facility] Address [address] [place] [address] Care Team Providers Care Lodge Sales Associate Name Role Phone Agustin Flor Primary Care Provider [phone] Allergies Active Allergy Reactions Criticality Noted Date [...] 8:27 PM 11/12/2022 4:08 PM Care Teams Lodge Sales Associate Relationship Specialty Start Date End Date Agustin Flor [address] [place] [phone] PCP - General 10/28/22
--- OUTSIDE RECORDS SUMMARY | 2024-06-26 12:56 | XMS_ITS ---
Author Organization [facility] Address [address] [place] [place] [address] Care Team Providers Care Assembler Type Bar And Segment Name Role Phone Agustin Flor MD Primary Care Provider [phone] Shreyas Phillips MD Unavailable Bebe HernandezC Unavailable Nanda Rausch RN Unavailable Unavailable Active Problems [...] (Truxima) RAPID infusionriTUXimab- abbs (Truxima) STANDARD infusionvinCRIStin p-NMOKsutuewc-rupx oside CIVI Therapy Complete Shreyas Phillips MD 6 of 6 cycles started THERAPY PLAN Plan Name Start Date Discontinue Date Treatment Medications Discontinue Reason Plan Provider Hematology plan 12/17/2022 04/26/2024 No medicatio ns scheduled. Therapy Complete Bebe Hernandez, PAKylahC ONC treatment plan 12/01/2022 12/03/2022 No medications scheduled. Therapy Complete Vicky Mendiola, CAIO-DOCUMENTATION BILLING CLERK Radiation Treatments * No radiation treatments are documented for this patient in [facility]. Treatments may have been administered [...]
--- OUTSIDE RECORDS SUMMARY | 2024-06-26 12:56 | XMS_ITS | Clinical Summary ---
Author Organization [facility] Address [address] [place] [address] Care Team Providers Care Tmr Teacher Name Role Phone Agustin Flor MD Primary Care Provider [phone] Shreyas Phillips MD Unavailable Bebe HernandezC Unavailable Nanda Rausch RN Unavailable Unavailable Source Comments [facility],non-owned Affiliates and Associated Physician Practices is amultiple site organization consisting of ambulatory clinics and hospital sitesin [place], [place], [place] and [place]. This disclosure is being madepursuant to the Care Everywhere program and may not contain all information available regarding this patient. Last updated 17.[facility] Allergies Active Allergy Reactions Criticality Noted Date Comments Aspirin Swelling,Eye Itching,Other,Shortne ss of Breath,Unknown High 04/12/2018 Pain in the chest, eye red and swollen Breathing Difficulty Pain in the chest, eye red and swollen Azithromycin Shortness of Breath,Eye Redness High 06/15/2024 Cefdinir Itching,Rash Medium 04/21/2023 Chlorthalidone Urticaria,Itching,Un k nown Medium 07/13/2022 Makes her itch Clonazepam Unknown 07/14/2022 Jerk in the leg Hydrochlorothiazide Itching,Unknown Low 12/15/2022 Severe itching Medications * Be aware that medications may not be up to date on this document. Alwaysverify current medications with the patient. 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, unspecified whether intermediate teacher insulin use (HCC) Use 1 Needle as directed 100 Each 11 3 Active vitamin D3 (Cholecalciferol) 25 MCG (1000 UNITS) tabletIndications:V itamin D Deficiency Take 2 (two) tablets by mouth once daily Reasons: Vitamin D Deficiency 3 Active thiamine (Vitamin B-1) 100 MG tablet Take 1 (one) tablet by mouth once daily 0 3 Active hydrOXYzine pamoate (Vistaril) 25 MG [...] tablets by mouth once daily 4 Active terbinafine (LamISIL) 250 MG tablet Take 1 (one) tablet by mouth once daily Active senna (Senokot) 8.6 MG tablet Take by mouth once daily Active Docusate Calcium (STOOL SOFTENER PO) Take by mouth once daily Active POTASSIUM [...] 40 MG tabletIndications:C oronary artery disease involving tyonek heart without angina pectoris, unspecified vessel or lesion type,Hyperlipidemia , unspecified hyperlipidemia type Take 1 (one) tablet by mouth at bedtime 90 tablet 2 4 Active gabapentin (Neurontin) 300 MG capsuleIndications: Drug-induced polyneuropathy (HCC),Foot drop, bilateral Take 1 (one) capsule by mouth 3 times daily 90 capsule 1 4 Active clopidogrel (plaVIX) 75 MG tablet Take 1 (one) tablet by mouth once daily 5 06/01/19 26 Active losartan (Cozaar) 25 MG tablet Take 1 (one) tablet by mouth every morning 4 Active PARoxetine (Paxil) 40 MG tabletIndications:G eneralized Anxiety Disorder,Major Depressive Disorder Take 1 (one) tablet by mouth once daily for 30 days Reasons: Generalized Anxiety Disorder, Major Depressive Disorder 30 tablet 3 06/16/19 25 Discontinu ed(List Clean-Up) insulin glargine (Lantus/Semglee) 100 units/mL pen Inject 12 (twelve) Units subcutaneously at bedtime for 30 days 3.6 mL 3 06/16/19 25 Discontinu ed(List Clean-Up) insulin aspart (NovoLOG FLEXPEN) pen Inject 5 (five) Units subcutaneously 3 times daily before meals for 30 days 4.5 mL 3 06/16/19 25 Discontinu ed(List Clean-Up) apixaban (Eliquis) 5 MG tablet Take 1 (one) tablet by mouth 2 times daily 06/16/19 25 Discontinu ed(List Clean-Up) Calcium Carbonate (CALCIUM 500 PO) Take by mouth once daily 06/16/19 25 Discontinu ed(List Clean-Up) Multiple Vitamins-Minerals (Hair Skin and Nails Formula) TABS Take by mouth once daily 06/16/19 25 Discontinu ed(List Clean-Up) Active Problems Problem Noted Date Diagnosed [...] Encounters Date Type Department Care Team Description 06/15/2024 11:40 AM CDT - 06/15/2024 11:59 PM CDT Hospital Encounter [facility] [address] [place] [address] Shreyas Phillips MD Discharge Disposition: Home or Self Care 06/15/2024 Travel 06/14/2024 Orders Only [facility] - Hematology/Oncology [address] [place] [phone] Shreyas Phillips MD 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 06/12/2024 Telephone [facility] [address] [place] [address] Emeli Forrester 05/28/2024 11:00 AM FAT PRESSROOM WORKER - 05/28/2024 11:59 PM FAT PRESSROOM WORKER Hospital Encounter [facility] SC[facility] [address] [place] [address] Shreyas Phillips MD Discharge Disposition: Home or Self Care 05/28/2024 Travel 04/26/2024 6:01 AM FAT PRESSROOM WORKER - 04/26/2024 9:05 AM FAT PRESSROOM WORKER Hospital Encounter [facility] [address] [place] [address] Shreyas Phillips MD [facility] Discharge Disposition: Home or Self Care 04/26/2024 Travel from Last 3 Months Immunizations Name Administration Dates Next Due COVID PFIZER BIVALENT 12Y+ 30mcg/0.3ML 01/21/2022 Covid Pfizer primary monoval ent 12+ yr 0.3mL Purple cap 01/21/2022,12/28/2020 FLU VACCINE QUAD IIV4 SPLIT 0.25 ML IM 01/25/2020,01/17/2019 INFLUENZA N5Y4-10, HISTORIC VACCINE 01/21/2022 INFLUENZA VACCINE 12/26/2016,03/28/2014 INFLUENZA [...] and heating? Not very hard 11/20/2022 [facility] of Occupat ional Health - Occupational Stress [...] place to sleep or slept in a longterm (including now)? No 11/20/2022 Sex and Gender Information Value Date Recorded Sex Assigned at Not on file Gender Identity Female 08/19/2023 1:35 PM CDT Sexual Orientation Not on file Last Filed Vital Signs Vital Sign Reading Time Taken Comments Blood Pressure 116/69 06/15/2024 12:10 PM CDT Pulse 66 06/15/2024 12:10 PM CDT Temperature 36.9 C (98.5 F) 06/15/2024 12:10 PM CDT Respiratory Rate 18 06/15/2024 12:10 PM CDT Oxygen Saturation 99% 06/15/2024 12:10 PM CDT Inhaled Oxygen Concentration - - Weight 62.6 kg (138 lb) 06/15/2024 12:10 PM CDT Height 162.6 cm (5' 4 ) 06/15/2024 12:10 PM CDT Body Mass Index 23.69 06/15/2024 12:10 PM CDT Plan of Treatment Upcoming Encounters Date Type Department Care Team (Late st Contact Info) Description 09/14/2024 12:40 PM CDT Appointment [facility] [address] [place] [address] Shreyas Phillips MD [address] [place] [address] Health Maintenance Due Date Last [...] MEDICARE AWV CALENDAR YEAR 2024 DIABETES-SERUM CREATININE 06/15/20252024, 05/28/2024, 03/16/2024, Additional history exists PNEUMOCOCCAL VACCINE 50+ Completed [...] this topic Medical Devices Implanted Type Area Layout Technician Device Identifier Shelf Expiration Date Model / Serial / Lot Port Implinfn Powerport Clrvu Argd Kika Implanted:Qty: 1 on 07/15/2022 at [facility] Right: Chest [employer] [facility] 11/26/2023 [id number] / / [id number] Description:RIJ by Milena Spivey inton Procedures Procedure Name Priority Date/Time Associated Diagnosis Comments CBC W AUTO DIFFERENTIAL STAT 06/15/2024 11:57 AM CDT 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 COMPREHENSIVE METABOLIC PANEL STAT 06/15/2024 11:57 AM CDT 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 CHEST ABDOMEN PELVIS W CONT Routine 05/28/2024 11:38 AM FAT PRESSROOM WORKER History of non-Hodgkin's lymphoma CREATININE - POCT INTERFACED Routine 05/28/2024 11:26 AM FAT PRESSROOM WORKER IR CENTRAL LINE REMOVAL Routine 04/26/2024 8:32 AM FAT PRESSROOM WORKER B-cell lymphoma, unspecified B-cell lymphoma type, unspecified body region GLUCOSE - POINT OF CARE Routine 04/26/2024 6:51 AM FAT PRESSROOM WORKER PT-INR [facility] Routine 04/26/2024 6:47 AM FAT PRESSROOM WORKER Preop testing HEMOGLOBIN A1C Routine 02/03/2023 11:03 AM FAT PRESSROOM WORKER Bilateral foot pain HEPATITIS C RNA QUANTITATIVE STAT 07/16/2022 12:15 PM CDT Non-Hodgkin's lymphoma, unspecified body region, unspecified non-Hodgkin lymphoma type High risk for chemotherapy-induced infectious complication from Last 3 Months or Most Recently Relevant to Health Maintenance Results * (ABNORMAL) CBC WITH DIFFERENTIAL (06/15/2024 11:57 AM CDT) WBC 4.7 4.0 - 10.7 x10E9/L 06/15/2024 12:11 PM [facility] RBC Count 4.32 3.90 - 5.20 x10E12/L 06/15/2024 12:11 PM [facility] Hemoglobin 12.2 11.9 - 15.8 g/dL 06/15/2024 12:11 PM [facility] Hematocrit 37.8 34.8 - 46.1 % 06/15/2024 12:11 PM [facility] MCV 87.5 80.0 - 98.0 fL 06/15/2024 12:11 PM [facility] MCH 28.2 26.7 - 33.6 pg 06/15/2024 12:11 PM [facility] MCHC 32.3 31.7 - 36.3 g/dL 06/15/2024 12:11 PM [facility] RDW-CV 14.3 11.3 - 14.8 % 06/15/2024 12:11 PM [facility] Platelet Count 209 150 - 420 x10E9/L 06/15/2024 12:11 PM [facility] MPV 8.9 7.8 - 11.4 fL 06/15/2024 12:11 PM [facility] Preliminary Absolute Neutrophil 3.20 1.60 - 7.50 x10E9/L 06/15/2024 12:11 PM [facility] Neutrophil % 67.6 41.0 - 74.0 % 06/15/2024 12:11 PM [facility] Lymphocyte % 20.0 17.0 - 47.0 % 06/15/2024 12:11 PM [facility] Monocyte % 8.9 3.0 - 11.0 % 06/15/2024 12:11 PM [facility] Eosinophil % 2.3 0.0 - 7.0 % 06/15/2024 12:11 PM [facility] Basophil % 0.6 0.0 - 1.6 % 06/15/2024 12:11 PM [facility] Immature Granulocytes % 0.6 0.0 - 1.0 % 06/15/2024 12:11 PM [facility] Neutrophil Absolute 3.20 1.60 - 7.50 x10E9/L 06/15/2024 12:11 PM [facility] Lymphocyte Absolute 0.95(L) 1.00 - 4.40 x10E9/L 06/15/2024 12:11 PM [facility] Monocyte Absolute 0.42 0.15 - 1.00 x10E9/L 06/15/2024 12:11 PM [facility] Eosinophil Absolute 0.11 0.00 - 0.60 x10E9/L 06/15/2024 12:11 PM [facility] Basophil Absolute 0.03 0.00 - 0.13 x10E9/L 06/15/2024 12:11 PM [facility] Blood BLOOD SPECIMEN / Unknown Venipuncture / Unknown 06/15/2024 11:57 AM CDT 06/15/2024 12:05 PM CDT Shreyas Phillips MD LAB - HEMATOLOGY ORD ERABLES [facility] [address] [place] [address], [facility] [phone] * (ABNORMAL) COMPREHENSIVE METABOLIC PANEL (06/15/2024 11:57 AM CDT) BUN 16 7 - 26 mg/dL 06/15/2024 12:30 PM [facility] Creatinine 0.86 0.56 - 0.96 mg/dL 06/15/2024 12:30 PM [facility] Sodium 143 136 - 145 mmol/L 06/15/2024 12:30 PM [facility] Potassium 4.7(H) 3.5 - 4.5 mmol/L 06/15/2024 12:30 PM [facility] Chloride 107 98 - 107 mmol/L 06/15/2024 12:30 PM [facility] CO2 28 22 - 29 mmol/L 06/15/2024 12:30 PM [facility] Glucose 73 70 - 99 mg/dL 06/15/2024 12:30 PM [facility] Calcium 10.6(H) 8.4 - 10.2 mg/dL 06/15/2024 12:30 PM [facility] Protein Total 6.9 6.0 - 8.3 g/dL 06/15/2024 12:30 PM [facility] Albumin 4.6 3.4 - 5.0 g/dL 06/15/2024 12:30 PM [facility] Bilirubin Total 0.4 0.2 - 1.2 mg/dL 06/15/2024 12:30 PM [facility] Alkaline Phosphatase 72 40 - 150 U/L 06/15/2024 12:30 PM [facility] ALT 29 5 - 55 U/L 06/15/2024 12:30 PM [facility] AST 19 5 - 34 U/L 06/15/2024 12:30 PM [facility] Anion Gap 8 6 - 16 06/15/2024 12:30 PM [facility] BUN/Creatinine Ratio 19 7 - 23 06/15/2024 12:30 PM [facility] Osmolality Calculated 296(H) 275 - 295 mOsm/kg 06/15/2024 12:30 PM [facility] Albumin/Globulin Ratio 2.0 1.1 - 2.3 06/15/2024 12:30 PM [facility] eGFR by CKD-EPI 74(L) >=90 mL/min/1.7 3 m2 06/15/2024 12:30 PM [facility] Blood BLOOD SPECIMEN / Unknown Venipuncture / Unknown 06/15/2024 11:57 AM CDT 06/15/2024 12:05 PM [facility] Shreyas Phillips MD LAB - CHEMISTRY SILVINO LENZ [facility] Organization Address City/State/ZIP Co de Phone Number [address] [address], [facility] [phone] * CT Chest Abdomen Pelvis W Cont (05/28/2024 11:38 AM FAT PRESSROOM WORKER) Anatomical Region Laterality Modality Chest, Abdomen, Pelvis Computed Tomography 05/28/2024 1:52 PM FAT PRESSROOM WORKER Impressions 05/28/2024 4:28 PM FAT PRESSROOM WORKER Impression: 1.No evidence of lymphadenopathy in the chest, abdomen, and pelvis. 2.Redemonstrated are multiple hepatic and renal cysts which may be suggestive of polycystic kidney-liver disease. Report was dictated by Jose Lagos MD, (Integrated VIR resident). > Dictated by Jose Lagos MD (Mrb Engineer) 05/28/2024 1:52 PM I, Nakul Bridges MD have personally reviewed and interpreted this examination/study. > Interpreting Provider: Nakul Bridges MD on 05/28/2024 4:28 PM Narrative 05/28/2024 4:28 PM FAT PRESSROOM WORKER PROCEDURE: CT CHEST ABDOMEN PELVIS W CONT, DATE/TIME OF EXAM: 05/28/2024 11:39 AM, LOCATION [facility] INDICATION: Z85.72: History of non-Hodgkin's lymphoma [...] DATE/TIME OF EXAM: 05/28/2024 11:39 AM, LOCATION [facility] INDICATION: Z85.72: History of non-Hodgkin's lymphoma [...] resident). > Dictated by Jose Lagos MD (Mrb Engineer) 05/28/2024 1:52 PM I, Nakul Bridges MD have personally reviewed and interpreted this examination/study. > Interpreting Provider: Nakul Bridges MD on 05/28/2024 4:28 PM Shreyas Phillips MD CT ORDERABLES * CREATININE - POCT INTERFACED (05/28/2024 11:26 AM FAT PRESSROOM WORKER) Creatinine POCT 0.72 0.30 - 1.30 mg/dL 05/28/2024 11:30 AM FAT PRESSROOM WORKER [facility] eGFR >90 >=90 mL/min/1.7 3 m2 05/28/2024 11:30 AM FAT PRESSROOM WORKER [facility] Blood BLOOD SPECIMEN / Unknown 05/28/2024 11:26 AM FAT PRESSROOM WORKER 05/28/2024 11:30 AM FAT PRESSROOM WORKER Shreyas Phillips MD LAB - POINT OF CARE ORDERABLES [place] [id number] [place] [address], [facility] [phone] * IR Central Line Removal (04/26/2024 8:32 AM FAT PRESSROOM WORKER) Anatomical Region Laterality Modality X-Ray Angiograph y 04/26/2024 3:21 PM FAT PRESSROOM WORKER Impressions 05/07/2024 8:15 AM FAT PRESSROOM WORKER Impression: Successful removal of a right internal jugular approach since lumen 8 Montserratian chest port under fluoroscopic guidance. Note: Keep the dressing clean and dry for 5 days. I, BIJAL Elizalde, was present and performed/supervised the entire procedure. > Dictated by Aguila Pritchett (Mrb Engineer) 04/26/2024 3:21 PM I, Valeria Hernandez MD have personally reviewed and interpreted this examination/study. > Interpreting Provider: Valeria Hernandez MD on 05/07/2024 8:15 AM Narrative 05/07/2024 8:15 AM FAT PRESSROOM WORKER PROCEDURE: IR CENTRAL LINE REMOVAL DATE/TIME OF EXAM: 04/26/2024 8:33 AM CLINICAL INFORMATION: History: This is a 64-year-old -Palest[place] female with a history of lymphoma who previously had a chest port placed for chemotherapy administration. She has completed chemotherapy and remains remission and therefore presents for chest port removal Operators: BIJAL Cartagena Anesthesia: 1.Local anesthesia - 10 mL of 1% Lidocaine 2.Intravenous Anxiolysis- Versed 1 mg and Fentanyl 50 mcg Procedure: Removal of a right internal jugular approach 1 lumen 8 Montserratian chest port under fluoroscopic guidance. Fluoroscopic time: 0.1 minutes Procedure details: The procedure, risks, and possible complications were explained to the patient in detail, and informed consent was obtained. The patient was placed supine on the angiography table. The right neck and upper chest were prepped and draped in the usual sterile manner. A drill punch operator radiograph of the chest was obtained, [...] CLINICAL INFORMATION: History: This is a 64-year-old -Palestinian female with a history of lymphoma who previously had a chest port placed for chemotherapy administration. She has completed chemotherapy andremains remission and therefore presents for chest port removal Operators: BIJAL Cartagena Anesthesia: 1.Local anesthesia - 10 mL of 1% Lidocaine 2.Intravenous Anxiolysis- Versed 1 mg and Fentanyl 50 mcg Procedure: Removal of a right internal jugular approach 1 lumen 8 Montserratian chest port under fluoroscopic guidance. Fluoroscopic time: 0.1 minutes Procedure details: The procedure, risks, and possible complications were explained to the patient in detail, and informed consent was obtained. The patient was placed supine on the angiography table. The right neck and upper chestwere prepped and draped in the usual sterile manner. A drill punch operator radiograph ofthe chest was obtained, which [...] procedure well [facility]. There were no immediate complicationsassociated with the procedure. Impression: Successful removal of a right internal jugular approachsince lumen 8 Montserratian chest port under fluoroscopic guidance. Note: Keep the dressing clean and dry for 5 days. IDr. Francisca PA, was present and performed/supervised the entire procedure. > Dictated by Aguila Pritchett (Mrb Engineer) 04/26/2024 3:21 PM IValeria MD have personally reviewed and interpreted this examination/study. > Interpreting Provider: Valeria Hernandez MD on 05/07/2024 8:15 AM Shreyas Phillips MD IR ORDERABLES * GLUCOSE - POINT OF CARE (04/26/2024 6:51 AM FAT PRESSROOM WORKER) Glucose WB/POC 92 70 - 99 mg/dL 04/26/2024 6:52 AM [facility] Specimen Type Venous 04/26/2024 6:52 AM [facility] Blood BLOOD SPECIMEN / Unknown 04/26/2024 6:51 AM FAT PRESSROOM WORKER 04/26/2024 6:52 AM FAT PRESSROOM WORKER Shreyas Phillips MD LAB - POINT OF CARE ORDERABLES Performing Organization Address [facility]/ZIP Co de Phone Number [facility] [address] [place] [address], [facility] [phone] * PT-INR [facility] (04/26/2024 6:47 AM FAT PRESSROOM WORKER) PT 13.2 12.1 - 14.8 Seconds 04/26/2024 7:20 AM [facility] INR 1.0 See Comment 04/26/2024 7:20 AM [facility] Comment:The suggested therap eutic range for standard coumadin (warfarin) therapy is an INR of 2.0-3.0. For high-risk patients (Mechanical Mitral Valve Prosthesis, etc.), the suggested prophylactic therapeutic range is an INR of 2.5-3.5. Blood BLOOD SPECIMEN / Unknown Venipuncture / Unknown 04/26/2024 6:47 AM FAT PRESSROOM WORKER 04/26/2024 6:51 AM FAT PRESSROOM WORKER Tyson Sandhu MD LAB - COAGULATION OR DERABLES Performing Organization Address City/[facility]/ZIP Co de Phone Number [facility] [address] [place] [address], [facility] [phone] * HEMOGLOBIN A1C (02/03/2023 11:03 AM FAT PRESSROOM WORKER) [facility] Hemoglobin A1c 5.4 <=5.6 % 02/03/2023 3:39 PM [facility] Estimated Average Glucose 108 mg/dL 02/03/2023 3:39 PM [facility] Comment: HbA1c Interpretation: Normal : < 5.7% Pre-diabetes: 5.7-6.4% Diabetes: Equal to or greater than 6.5% Test results diagnostic of diabetes should be repeated for confirmation. Treatment target values recommended by ADA and other clinical organizations should be used to evaluate metabolic control in patients. Reference: [place] [employer], Standards of Care in Diabetes -2020 In patients 70 years and older consider HbA1c target range of 7.0-7.5% (Reference: Vishal Davis et al. JAMDA. 2012) The Sebia assay for the measurement of HbA1c is a National Glycohemoglobin Standardization Program (NGSP) certified method. Blood BLOOD SPECIMEN / Unknown Lab Venipuncture / Unknown 02/03/2023 11:03 AM FAT PRESSROOM WORKER 02/03/2023 11:29 AM FAT PRESSROOM WORKER Mohini Sky MD LAB - CHEMISTRY SILVINO LENZ [facility] Organization Address City/State/ZIP Co de Phone Number [facility] [address] [place] [address], [facility] [phone] * HEPATITIS C RNA QUANTITATIVE (07/16/2022 12:15 PM CDT) [facility] Hepatitis C RNA PCR, Interp Not detected Not detected 07/19/2022 1:08 PM CDT [facility] Blood BLOOD SPECIMEN / Unknown Lab Venipuncture / Unknown 07/16/2022 12:15 PM CDT 07/16/2022 12:25 PM CDT Narrative [facility] - 07/19/2022 1:08 PM CDT The Hepatitis C viral (HCV) RNA analysis utilized a serum sample, real-time reverse dust mixer PCR, and is reported as Not Detected, [...] the isolation of HCV RNA with reverse dust mixer of genomic HCV RNA followed by real-time PCR in the presence of an unrelated RNA internal control. The internal control ensures that RNA is isolated, and that no general significant inhibitors of the RT-PCR process are present. The analysis was performed using a U.S. FDA approved test methodology. Shreyas Phillips MD LAB - CHEMISTRY SILVINO LENZ [facility] Organization Address City/State/ZIP Co de Phone Number [facility] [address] [facility] [address] [place] [phone] from Last 3 Months or Most Recently [...] 3:45 PM 10/19/2022 5:53 PM Care Teams Tmr Teacher Relationship Specialty Start Date End Date Agustin Flor MD [address] [place] [address] PCP - General General Medicine 06/28/22 [place] [address] [place] [phone] Physician Hematology and Oncology 03/23/23 Bebe Hernandez, PA-C [address] [place] [address] Physician Quarry Extraction Worker Physician Quarry Extraction Worker 03/23/23 Nanda Rausch, RN Registered Nurse 03/23/23
--- OUTSIDE RECORDS SUMMARY | 2024-06-26 12:57 | XMS_ITS | Clinical Summary ---
Author Organization [facility] Medical Office Building B Address [address] [place] [address] Care Team Providers Care Leather Stretcher Name Role Phone Agustin Flor MD Primary Care Provider + [phone] Annie Simpson MD Unavailable [phone] Allergies Active Allergy Reactions Criticality Noted Date [...] nightly 11/13/19 23 Active FreeStyle Ron 3 [place] misc 2 (two) times a day 10/03/19 [...] 90 tablet 3 06/01/19 25 026 Active apixaban (ELIQUIS) 5 mg tablet Take 1 tablet (5 mg total) by mouth 2 (two) times a day 025 Discontinued(S top Taking at Discharge) clopidogreL (PLAVIX) 75 mg tablet Take 1 tablet (75 mg total) by mouth daily 45 tablet 1 06/01/19 25 025 Discontinued Active Problems Problem Noted Date Diagnosed Date PFO (patent foramen ovale) 02/22/2024 Assessment & Plan (02/22/2024 9:06 AM PROCESS CONTROL PROGRAMMER): She has followed with cardiology and has now seen a surgeon with plans for repair in the next several months We will reassess her dyspnea after her recovery from this procedure Centrilobular emphysema 02/22/2024 Assessment & Plan (02/22/2024 9:05 AM PROCESS CONTROL PROGRAMMER): Continue Trelegy Ellipta 100 daily Albuterol as [...] 02/21 Assessment & Plan (02/22/2024 9:06 AM PROCESS CONTROL PROGRAMMER): Last CT chest in November of 2023 [...] Department Care Team Description 05/29/2024 8:00 AM PROCESS CONTROL PROGRAMMER - 05/29/2024 10:00 AM PROCESS CONTROL PROGRAMMER Surgery [facility] Cardiac Catheterization Lab [address] [place] [address] Gallo Diehl MD ATRIAL SEPTAL DEFECT (ASD), PATENT FORAMEN OVALE (PFO), FENESTRATION CLOSURE [id number] 05/29/2024 7:59 AM PROCESS CONTROL PROGRAMMER - 05/29/2024 11:59 PM PROCESS CONTROL PROGRAMMER Hospital Encounter [facility] Cardiac Catheterization Lab [address] [place] [address] Discharge Disposition: Discharge to home or self care 05/29/2024 7:57 AM PROCESS CONTROL PROGRAMMER Anesthesia Event [facility] Cardiac Catheterization Lab [address] [place] [address] Chavez Chiu MD Eldin, Ali S., MD 05/29/2024 5:33 AM PROCESS CONTROL PROGRAMMER - 05/30/2024 11:37 AM PROCESS CONTROL PROGRAMMER Hospital Encounter [address] [address] Gallo Diehl MD PFO (patent foramen ovale) Discharge Disposition: Discharge to home or self care 05/25/2024 9:45 AM PROCESS CONTROL PROGRAMMER Pre-Admission Testing [facility] Pre Anesthesia Testing [address] [place] [address] Pre-op testing (Primary Dx) 05/24/2024 1:09 PM PROCESS CONTROL PROGRAMMER - 05/24/2024 11:59 PM PROCESS CONTROL PROGRAMMER Hospital Encounter [facility] [id number] [place] [address] Right foot pain Discharge Disposition: Discharge to home or self care 05/24/2024 1:05 PM PROCESS CONTROL PROGRAMMER - 05/24/2024 11:59 PM PROCESS CONTROL PROGRAMMER Hospital Encounter [facility] [address] [place] [address] Left foot pain Discharge Disposition: Discharge to home or self care 05/24/2024 12:30 PM PROCESS CONTROL PROGRAMMER Office Visit [facility] Orthopaedic Surgery [id number] [place] [address] 2nd [address] [place] [address] Lakia Riddle MD Left foot pain (Primary Dx); Right foot pain; Acquired equinovarus deformity of left foot; Acquired equinovarus deformity of right foot 05/15/2024 Orders Only [facility] Cardiac Catheterization Lab [address] [place] [address] Gallo Diehl MD PFO (patent foramen ovale) (Primary Dx) from Last 3 Months Surgical History Surgery Date Site/Laterality Comments PORT PLACEMENT CHEST >5 YEARS 07/15/2022 N/A removed 03/2024 CARDIAC STENT PLACEMENT OTHER SURGICAL HISTORY 03/28/2023 - 03/27/2024 LOOP recorder placement HYSTERECTOMY EYE SURGERY Bilateral cataracts CARDIAC CATHETERIZATION 05/29/2024 N/A Procedure: ATRIAL SEPTAL DEFECT (ASD), PATENT FORAMEN OVALE (PFO), FENESTRATION CLOSURE [id number]; Surgeon: Gallo Diehl MD; 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 KNOTTING MACHINE OPERATOR PORTABLE; Service: Cardiovascular; Laterality: N/A; Medical devices from [...] on file Legal Sex Female 9:14 PM PROCESS CONTROL PROGRAMMER Gender Identity Not on file Sexual Orientation Not on file Obstetrics History Last Filed Vital Signs Vital Sign Reading Time Taken Comments Blood Pressure 118/62 05/30/2024 7:40 AM PROCESS CONTROL PROGRAMMER Pulse 74 05/30/2024 9:02 AM PROCESS CONTROL PROGRAMMER Temperature 37.4 C (99.4 F) 05/30/2024 7:40 AM PROCESS CONTROL PROGRAMMER Respiratory Rate 18 05/30/2024 7:40 AM PROCESS CONTROL PROGRAMMER Oxygen Saturation 95% 05/30/2024 7:40 AM PROCESS CONTROL PROGRAMMER Inhaled Oxygen Concentration - - Weight 57.6 kg (126 lb 15.8 oz) 05/30/2024 5:45 AM PROCESS CONTROL PROGRAMMER Height 162.6 cm (5' 4 ) 05/29/2024 6:49 AM PROCESS CONTROL PROGRAMMER Body Mass Index 21.8 05/29/2024 6:49 AM PROCESS CONTROL PROGRAMMER Plan of Treatment Health Maintenance Due Date [...] 01/21/2022, 03/2014 Medical Devices Implanted Type Area Double End Production Grinder Device Identifier Shelf Expiration Date Model / Serial / Lot [employer] Occluder Amplatzer Talisman Pfo 25-18mm [id number] - [id number] Implanted:Qty: 1 on 05/29/2024 by Gallo Diehl MD at [facility] Septal Defect Closure Device [employer] 03/27/2025 [id number] / / [employer] System Closure Repair Femoral Artery Suture Mediated Perclose Prostyle 38713-47 - [id number] Implanted:Qty: 1 on 05/29/2024 by Gallo Diehl MD at [facility] [employer] 02/24/2026 07634-60 / / [id number] Procedures Procedure Name Priority Date/Time Associated Diagnosis Comments TRANSTHORACIC ECHO (TTE) LIMITED/FOLLOW UP W LTD DOPPLER/CF WO CONTRAST Routine 05/30/2024 8:27 AM PROCESS CONTROL PROGRAMMER POCT GLUCOSE DEVICE Routine 05/30/2024 8 :18 AM PROCESS CONTROL PROGRAMMER EGFR Routine 05/30/2024 4:01 AM PROCESS CONTROL PROGRAMMER DIFFERENTIAL AUTO Routine 05/30/2024 4:0 1 AM PROCESS CONTROL PROGRAMMER CBC WITH AUTO DIFFERENTIAL Routine 05/30/2024 4:01 AM PROCESS CONTROL PROGRAMMER BASIC METABOLIC PANEL Routine 05/30/2024 4:01 AM PROCESS CONTROL PROGRAMMER POCT GLUCOSE DEVICE Routine 05/29/2024 9 :18 PM PROCESS CONTROL PROGRAMMER POCT GLUCOSE DEVICE Routine 05/29/2024 5 :54 PM PROCESS CONTROL PROGRAMMER POCT GLUCOSE DEVICE Routine 05/29/2024 1 2:52 PM PROCESS CONTROL PROGRAMMER POCT GLUCOSE DEVICE Routine 05/29/2024 8 :58 AM PROCESS CONTROL PROGRAMMER ATRIAL SEPTAL DEFECT CLOSURE Routine 05/29/2024 8:38 AM PROCESS CONTROL PROGRAMMER PFO (patent foramen ovale) CO AN ELECTIVE ENDOTRACHEAL AIRWAY Routine 05/29/2024 8:12 AM PROCESS CONTROL PROGRAMMER ECG 12-LEAD Routine 05/29/2024 7:03 AM PROCESS CONTROL PROGRAMMER POCT GLUCOSE DEVICE Routine 05/29/2024 6 :38 AM PROCESS CONTROL PROGRAMMER URINALYSIS AND REFLEX TO MICROSCOPIC AND CULTURE Routine 05/25/2024 12:12 PM PROCESS CONTROL PROGRAMMER Pre-op testing XR FOOT RIGHT 3 OR MORE VIEWS Schedule Routine, Read Routine (OP Routine) 05/24/2024 1:24 PM PROCESS CONTROL PROGRAMMER Left foot pain XR FOOT LEFT 3 OR MORE VIEWS Schedule Routine, Read Routine (OP Routine) 05/24/2024 1:24 PM PROCESS CONTROL PROGRAMMER Right foot pain HEMOGLOBIN A1C Routine 04/12/2018 5:45 AM PROCESS CONTROL PROGRAMMER LIPID PANEL Routine 04/12/2018 5:45 AM PROCESS CONTROL PROGRAMMER from Last 3 Months or Most Recently Relevant to Health Maintenance Results * TRANSTHORACIC ECHO (TTE) LIMITED/FOLLOW UP W LTD DOPPLER/CF WO CONTRAST (05/30/2024 8:27 AM PROCESS CONTROL PROGRAMMER) Anatomical Region Laterality Modality Ultrasound 05/30/2024 7:49 AM PROCESS CONTROL PROGRAMMER Narrative 05/30/2024 12:27 PM [place] [address] Limited Echocardiogram Report Patient Name: PAULA ORELLANA S : 1960 Study Date: 05/30/2024 7:49:55 AM Gender: F Tech: THAD Location: [id number] Ref Provider: GALLO DIEHL Height(Cm): 163 BSA: [...] DO, FACC, FASE, FASNC 05/30/2024 12:27:25 PM PROCESS CONTROL PROGRAMMER Procedure Note Zeina Zamora DO - 05/30/2024 [place] [address] Limited Echocardiogram Report Patient Name: PAULA ORELLANA S : 1960 Study Date: 05/30/2024 7:49:55 AM Gender: F Tech: THAD Location: [id number] Ref Provider: GALLO DIEHL Height(Cm): 163 BSA: [...] DO, JASPREET MONACO FASNC 05/30/2024 12:27:25 PM PROCESS CONTROL PROGRAMMER us Gallo Diehl MD CV ECHO PROCEDURES Final Result * POCT glucose (05/30/2024 8:18 AM PROCESS CONTROL PROGRAMMER) Glucose, POC 127 70 - 199 mg/dL Blood 05/30/2024 8:18 AM PROCESS CONTROL PROGRAMMER 05/30/2024 8:18 AM PROCESS CONTROL PROGRAMMER Gallo Diehl MD LAB POCT ORDERABLES - DEVICE Fi nal Result [facility] [address] Department [place] [address] * eGFR (05/30/2024 4:01 AM PROCESS CONTROL PROGRAMMER) eGFR 61 >=60 mL/min/1. 73 m2 Comment: [...] last reviewed 2021. Blood 05/30/2024 4:01 AM PROCESS CONTROL PROGRAMMER 05/30/2024 4:33 AM PROCESS CONTROL PROGRAMMER us Gallo Diehl MD LAB BLOOD ORDERABLES Final Resu lt [facility] [address] Department [place] [address] * Differential, auto (05/30/2024 4:01 AM PROCESS CONTROL PROGRAMMER) Neutrophil abs 6.5 1.5 - 6.5 K/cumm Imm gran abs 0.0 0.0 - 0.1 K/cumm [facility] Lymphocyte abs 1.2 0.8 - 3.3 K/cumm [facility] Monocyte abs 0.6 0.2 - 0.8 K/cumm [facility] Eosinophil abs 0.0 0.0 - 0.5 K/cumm [facility] Basophil abs 0.0 0.0 - 0.1 K/cumm [facility] Neutrophil pct 77.2 % [facility] Comment: Interpretive Data Percent cell count reference ranges are not reported, since discordance with absolute values may lead to misinterpretation of CBC data. Current Interpretive Data was last revised on 2017. Imm gran pct 0.5 % [facility] Comment: Interpretive Data Percent cell count reference ranges are not reported, since discordance with absolute values may lead to misinterpretation of CBC data. Current Interpretive Data was last revised on 2017. Lymphocyte pct 14.4 % [facility] Comment: Interpretive Data Percent cell count reference ranges are not reported, since discordance with absolute values may lead to misinterpretation of CBC data. Current Interpretive Data was last revised on 2017. Monocyte pct 7.5 % [facility] Comment: Interpretive Data Percent cell count reference ranges are not reported, since discordance with absolute values may lead to misinterpretation of CBC data. Current Interpretive Data was last revised on 2017. Eosinophil pct 0.2 % [facility] Comment: Interpretive Data Percent cell count reference ranges are not reported, since discordance with absolute values may lead to misinterpretation of CBC data. Current Interpretive Data was last revised on 2017. Basophil pct 0.2 % [facility] Comment: Interpretive Data Percent cell count reference ranges are not reported, since discordance with absolute values may lead to misinterpretation of CBC data. Current Interpretive Data was last revised on 2017. Blood 05/30/2024 4:01 AM PROCESS CONTROL PROGRAMMER 05/30/2024 4:12 AM PROCESS CONTROL PROGRAMMER Gallo Diehl MD LAB BLOOD ORDERABLES Final Resu lt [facility] [address] [employer] [place], [place] [id number] * (ABNORMAL) CBC with auto differential (05/30/2024 4:01 AM PROCESS CONTROL PROGRAMMER) WBC 8.5 3.8 - 9.9 K/cumm Hgb 11.8(L) 11.9 - 15.5 g/dL [facility] Hct 37.2 35.6 - 45.5 % [facility] Plt 176 150 - 400 K/cumm [facility] MPV 9.0(L) 9.1 - 12.3 fL [facility] RBC 4.07 3.90 - 5.20 M/cumm [facility] MCV 91.4 81.3 - 96.4 fL [facility] MCH 29.0 27.1 - 33.3 pg [facility] MCHC 31.7(L) 32.3 - 35.7 g/dL [facility] RDW CV 14.6 11.1 - 14.9 % [facility] RDW SD 48.1 35.7 - 48.1 fL [facility] NRBC abs 0.00 0.00 - 0.01 K/cumm [facility] Blood 05/30/2024 4:01 AM PROCESS CONTROL PROGRAMMER 05/30/2024 4:12 AM PROCESS CONTROL PROGRAMMER Gallo Diehl MD LAB BLOOD ORDERABLES Final Resu lt [facility] [address] [facility] [employer] [place], [place] [id number] * Basic metabolic panel (05/30/2024 4:01 AM PROCESS CONTROL PROGRAMMER) Sodium 141 135 - 145 mmol/L Potassium, pl 3.8 3.3 - 4.9 mmol/L [facility] Chloride 103 97 - 110 mmol/L [facility] CO2 25 22 - 32 mmol/L [facility] Anion gap 13 2 - 15 mmol/L [facility] BUN 22 6 - 25 mg/dL [facility] Creatinine 1.02 0.60 - 1.10 mg/dL [facility] Glucose 128 70 - 199 mg/dL [facility] Comment: Interpretive Data Fasting glucose >/= [...] 2022. Calcium 9.8 8.5 - 10.3 mg/dL [facility] Blood 05/30/2024 4:01 AM PROCESS CONTROL PROGRAMMER 05/30/2024 4:33 AM PROCESS CONTROL PROGRAMMER Gallo Diehl MD LAB BLOOD ORDERABLES Final Resu lt Performing Organization Address City/[facility]/ZIP Co de Phone Number [facility] [address] [address] * (ABNORMAL) POCT glucose (05/29/2024 9:18 PM PROCESS CONTROL PROGRAMMER) Glucose, POC 213(H) 70 - 199 mg/dL Blood 05/29/2024 9:18 PM PROCESS CONTROL PROGRAMMER 05/29/2024 9:18 PM PROCESS CONTROL PROGRAMMER Gallo Diehl MD LAB POCT ORDERABLES - DEVICE Fi nal Result Performing Organization Address City/[facility]/ZIP Co de Phone Number [facility]ER [address] [place] [address] * POCT glucose (05/29/2024 5:54 PM PROCESS CONTROL PROGRAMMER) Glucose, POC 115 70 - 199 mg/dL Blood 05/29/2024 5:54 PM PROCESS CONTROL PROGRAMMER 05/29/2024 5:54 PM PROCESS CONTROL PROGRAMMER us Gallo Diehl MD LAB POCT ORDERABLES - DEVICE Fi nal Result Performing Organization Address [facility] de Phone Number [facility] THRASHER [address] [facility] [place] [address] * (ABNORMAL) POCT glucose (05/29/2024 12:52 PM PROCESS CONTROL PROGRAMMER) Glucose, POC 224(H) 70 - 199 mg/dL Blood 05/29/2024 12:5 2 PM PROCESS CONTROL PROGRAMMER 05/29/2024 12:52 PM PROCESS CONTROL PROGRAMMER us Gallo Diehl MD LAB POCT ORDERABLES - DEVICE Fi nal Result Performing Organization Address [facility] de Phone Number VIKRAM [address] [place] [address] * POCT glucose (05/29/2024 8:58 AM PROCESS CONTROL PROGRAMMER) Glucose, POC 120 70 - 199 mg/dL Blood 05/29/2024 8:58 AM PROCESS CONTROL PROGRAMMER 05/29/2024 8:58 AM PROCESS CONTROL PROGRAMMER Gallo Diehl MD LAB POCT ORDERABLES - DEVICE Fi nal Result Performing Organization Address [facility] de Phone Number VIKRAM [address] [place] [address] * ATRIAL SEPTAL DEFECT CLOSURE (05/29/2024 8:38 AM PROCESS CONTROL PROGRAMMER) Anatomical Region Laterality Modality X-Ray Angiograph y Narrative 05/29/2024 8:48 AM PROCESS CONTROL PROGRAMMER Table formatting from the original result was not included. ATRIAL SEPTAL DEFECT (ASD), PATENT FORAMEN OVALE (PFO), FENESTRATION CLOSURE [id number] Brief Op Note Attending Project Scientist: Gallo Diehl MD Primary: Gallo Diehl MD CV Documenter: Selam Hernández RN CV Scrub: Ezra Douglass; Avis Lance CV Road Oiling Truck Driver: Patricia Bowen RN; hSawna Cooper RN Date of Procedure: 05/29/2024 Specimens: No specimen collected in procedure Preoperative Diagnosis: Pre-op Diagnosis * PFO (patent foramen ovale) [Q21.12] Postoperative Diagnosis: Post-op Diagnosis * PFO (patent foramen ovale) [Q21.12] Name of Procedure: Procedure(s): ATRIAL SEPTAL DEFECT (ASD), PATENT FORAMEN OVALE (PFO), FENESTRATION CLOSURE [id number] Implants: Implant Name Type Inv. Item Serial No. Double End Production Grinder Lot No. LRB No. Used Action [employer] System Closure Repair Femoral Artery Suture Mediated Perclose Prostyle 23544-25 - [id number] [employer] System Closure Repair Femoral Artery Suture Mediated Perclose Prostyle 78298-60 [employer] [id number] N/A 1 Implanted [employer] Occluder Amplatzer Talisman Pfo 25-18mm [id number] - [id number] Septal Defect Closure Device [employer] Occluder [...] was proctored by Dr. Brandan Cifuentes from [facility]. COMPLICATIONS: None ESTIMATED BLOOD LOSS: 5 [...] CARDIAC CATH PROCEDURES Yuli l Result * CO AN ELECTIVE ENDOTRACHEAL AIRWAY (05/29/2024 8:12 AM PROCESS CONTROL PROGRAMMER) Narrative Gerald Retana AA - 05/29/2024 8:12 AM PROCESS CONTROL PROGRAMMER Gerald Retaan AA 05/29/2024 8:13 AM Airway Patient location: [...] * ECG 12 lead (05/29/2024 7:03 AM PROCESS CONTROL PROGRAMMER) 05/29/2024 7:03 AM PROCESS CONTROL PROGRAMMER Narrative [facility] - 05/29/2024 11:11 AM PROCESS CONTROL PROGRAMMER Vent Rate: 68 bpm RR Interval: 878 msec CO Interval: 184 msec QRS Duration: 97 msec QT Interval: 425 msec QTC Interval: 442 msec P-R-T [place]: 72 - -19 - 60 degrees IMPRESSION: SINUS RHYTHM SEPTAL MYOCARDIAL INFARCTION , PROBABLY OLD VERSUS POOR R-WAVE PROGRESSION ABNORMAL ECG Electronically Signed By: Pantera Wiggins MD Gallo Diehl MD ECG ORDERABLES Final Result Performing Organization Address [facility] Co de Phone Number [facility] * POCT glucose (05/29/2024 6:38 AM PROCESS CONTROL PROGRAMMER) Glucose, POC 111 70 - 199 mg/dL Blood 05/29/2024 6:38 AM PROCESS CONTROL PROGRAMMER 05/29/2024 6:38 AM PROCESS CONTROL PROGRAMMER Gallo Diehl MD LAB POCT ORDERABLES - DEVICE Fi nal Result Performing Organization Address City/[facility]/ZIP Co de Phone Number [facility] THRASHER [address] Department of Laboratories [place], [place] [id number] * Urinalysis reflex to microscopic and culture Urine, clean voided (05/25/2024 12:12 PM PROCESS CONTROL PROGRAMMER) Color, ur Straw Yellow Clarity, ur Clear [...] tendency for uric acid stone formation. Source: [facility] Current Interpretive Data was last revised on [...] for microscopic UA and culture not met. [facility] Urine, clean voided 05/25/2024 12:12 PM PROCESS CONTROL PROGRAMMER 05/25/2024 12:21 PM PROCESS CONTROL PROGRAMMER Marianne Matos NP LAB MICROBIOLOGY - GENERAL ORD ERABLES Final Result [facility] [address] Department [place] [address] * XR Foot Right 3 or More Views (05/24/2024 1:24 PM PROCESS CONTROL PROGRAMMER) Anatomical Region Laterality Modality Lower Extremities, Foot Right Computed Radiography 05/24/2024 1:31 PM PROCESS CONTROL PROGRAMMER Impressions 05/24/2024 1:31 PM PROCESS CONTROL PROGRAMMER 1. 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 2. Apparent lesser hammertoe deformities with ankle fixed in plantar flexion on these nonweightbearing images. Electronically signed by: Maximus Murry MD Narrative 05/24/2024 1:31 PM PROCESS CONTROL PROGRAMMER EXAMINATION: XR FOOT LEFT 3 OR MORE [...] 3 or More Views (05/24/2024 1:24 PM PROCESS CONTROL PROGRAMMER) Anatomical Region Laterality Modality Lower Extremities, Foot Left Computed Radiography 05/24/2024 1:31 PM PROCESS CONTROL PROGRAMMER Impressions 05/24/2024 1:31 PM PROCESS CONTROL PROGRAMMER 1. 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 2. Apparent lesser hammertoe deformities with ankle fixed in plantar flexion on these nonweightbearing images. Electronically signed by: Maximus Murry MD Narrative 05/24/2024 1:31 PM PROCESS CONTROL PROGRAMMER EXAMINATION: XR FOOT LEFT 3 OR MORE [...] IMG XR PROCEDURES Final Re sult * (ABNORMAL) Hemoglobin A1c (04/12/2018 5:45 AM PROCESS CONTROL PROGRAMMER) Hemoglobin A1c % 5.9(H) 4.0 - 5.6 % 04/12/2018 6:40 AM PROCESS CONTROL PROGRAMMER [facility] HISTORICAL RESULTS Comment: ADA 2016 GUIDELINES: Initial Diagnostic Criteria HbA1c Result: Interpretation: <5.7% Normal 5.7-6.4% At risk for diabetes mellitus >=6.5% Consistent with diabetes mellitus Diabetes monitoring Target value (ADA Recommended) <7% 04/12/2018 5:45 AM PROCESS CONTROL PROGRAMMER 04/12/2018 6:02 AM PROCESS CONTROL PROGRAMMER Narrative [facility] [employer] HISTORICAL RESULTS - 04/12/2018 6:40 AM PROCESS CONTROL PROGRAMMER Comment In AM us Guicho Nova MD LAB BLOOD ORDERABLES Final Resul t Performing Organization Address [facility]/ZIP Co de Phone Number [facility] [employer] HISTORICAL RESULTS * Lipid panel (04/12/2018 5:45 AM PROCESS CONTROL PROGRAMMER) Triglycerides 124 0 - 149 mg/dL 04/12/2018 6:42 AM [facility] [employer] HISTORICAL RESULTS Comment: National Lipid Association/NCEP Guidelines: Normal < 150 mg/dL Borderline high 150-199 mg/dL High 200-499 mg/dL Very High >=500 mg/dL Cholesterol 118 0 - 199 mg/dL 04/12/2018 6:42 AM [facility] [employer] HISTORICAL RESULTS Comment: National Lipid Association/NCEP Guidelines: Desirable < 200 mg/dL Borderline high: 200-239 mg/dL High Risk: >=240 mg/dL HDL Cholesterol 52 mg/dL 9 6:42 AM [facility] [employer] HISTORICAL RESULTS Comment: Reference Ranges: Males: >=40 mg/dL Females: >=50 mg/dL LDL Cholesterol, Calc 41 0 - 129 mg/dL 04/12/2018 6:42 AM [facility] [employer] HISTORICAL RESULTS Comment: National Lipid Association/NCEP Guidelines: Optimal < 100 mg/dL Near Optimal 100-129 mg/dL Borderline high 130-159 mg/dL High >=160 mg/dL Cholesterol/HDL Ratio 2.3 04/12/2018 6:42 AM [facility] [employer] HISTORICAL RESULTS Comment: Optimal < 3.5:1 High > 5:1 04/12/2018 5:45 AM PROCESS CONTROL PROGRAMMER 04/12/2018 6:02 AM [facility] [employer] HISTORICAL RESULTS - 04/12/2018 6:42 AM PROCESS CONTROL PROGRAMMER Comment In AM us Guicho Nova MD LAB BLOOD ORDERABLES Final Resul t [facility] Payvment [facility] HISTORICAL RESULTS from Last 3 Months or Most Recently Relevant to Health Maintenance Insurance IDPA [facility] MEDICARE ADVANT[facility] MEDIC[facility] Address: [id number] [place] [address] [facility] MEDICARE ADVANTAGE IDPA Advance Directives For more information, please contact: [phone] * Full Code (Latest Code Status on File) Date Activated Date Inactivated Comments 05/29/2024 10:10 AM 05/30/2024 3:37 PM Care Teams Leather Stretcher Relationship Specialty Start Date End Date Agustin Flor MD PCP - General Internal Medicine 06/28/22 Annie Simpson MD [address] [place] [address] Consulting Physician Cardiology 05/30/24
--- OUTSIDE RECORDS SUMMARY | 2024-06-26 12:57 | XMS_ITS | Clinical Summary ---
Author Organization [facility] Address [address] [place] [address] Phone Care Team Providers Care Farrowing Manager Name Role Phone Agustin Flor MD Primary Care Provider [phone] Allergies Active Allergy Reactions Criticality Noted Date [...] CDT) hepatitis C antibody 0.09 <1 S/CO [facility]CH [id number] B 07/13/2022 9:22 PM CDT [facility] Comment: Signal/Cutoff ratio < 0.79 is Nondetected Signal/Cutoff ratio 0.80-0.99 is Grayzone Signal/Cutoff ratio > 0.99 is Detected Supplemental assays are recommended if signal/cutoff ratio is >/=1.00. Signal/cutoff ratio result >/= 5.00 is 97% predictive of positivity for recombinant immunoblot assay (RIBA) and will be reported to the [place] [facility] as required. Blood Venipuncture / Unknown 07/13/2022 1:29 PM CDT 07/13/2022 1:41 PM CDT Hans Escobar MD CHEMISTRY ORDERABLES Fin al Result [facility] [address] [place] [address], [place] from Last 3 Months or Most Recently Relevant to Health Maintenance Insurance MEDICARE C [employer] [place] Care Teams Farrowing Manager Relationship Specialty Start Date End Date Agustin Flor MD PCP - General Internal Medicine 07/13/22
--- OUTSIDE RECORDS SUMMARY | 2024-06-26 12:57 | XMS_ITS | Referral Summary ---
Author Organization [facility] Medical Office Building B Address [address] [place] [address] Care Team Providers Care Cardiovascular Technician Name Role Phone Agustin Flor MD Primary Care Provider + [phone] Annie Simpson MD Unavailable [phone] Encounters Date Type Department Care Team Description 05/29/2024 5:33 AM UNIT SUPERVISOR - 05/30/2024 11:37 AM UNIT SUPERVISOR Hospital Encounter [address] [address] Gallo Diehl MD PFO (patent foramen ovale) Discharge Disposition: Discharge to home or self care 05/29/2024 7:59 AM UNIT SUPERVISOR - 05/29/2024 11:59 PM UNIT SUPERVISOR Hospital Encounter [facility] [address] [place] [address] Discharge Disposition: Discharge to home or self care 05/29/2024 8:00 AM UNIT SUPERVISOR - 05/29/2024 10:00 AM UNIT SUPERVISOR Surgery [facility] [address] [place] [address] Gallo Diehl MD ATRIAL SEPTAL DEFECT (ASD), PATENT FORAMEN OVALE (PFO), FENESTRATION CLOSURE [id number] 05/29/2024 7:57 AM UNIT SUPERVISOR Anesthesia Event [facility] [address] [place] [address] Chavez Chiu MD Eldin, Ali S., MD 05/25/2024 9:45 AM UNIT SUPERVISOR Pre-Admission Testing [facility] Pre Anesthesia Testing [address] [place] [id number] Pre-op testing (Primary Dx) 05/24/2024 1:05 PM UNIT SUPERVISOR - 05/24/2024 11:59 PM UNIT SUPERVISOR Hospital Encounter [facility] [id number] [place] [id number] Left foot pain Discharge Disposition: Discharge to home or self care 05/24/2024 1:09 PM UNIT SUPERVISOR - 05/24/2024 11:59 PM UNIT SUPERVISOR Hospital Encounter [facility] [address] [place] [address] Right foot pain Discharge Disposition: Discharge to home or self care 05/24/2024 12:30 PM UNIT SUPERVISOR Office Visit [facility] Orthopaedic Surgery [id number] [place] [address] 2nd Floor [address] [place] [address] Lakia Riddle MD Left foot pain (Primary Dx); Right foot pain; Acquired equinovarus deformity of left foot; Acquired equinovarus deformity of right foot 05/15/2024 Orders Only [facility] [address] [place] [address] Gallo Diehl MD PFO (patent foramen ovale) (Primary Dx) from Last 3 Months Allergies Active Allergy [...] nightly 11/13/19 23 Active FreeStyle Ron [employer] misc 2 (two) times a day 10/03/19 [...] 02/22/2024 Assessment & Plan (02/22/2024 9:06 AM UNIT SUPERVISOR): She has followed with cardiology and has now seen a surgeon with plans for repair in the next several months We will reassess her dyspnea after her recovery from this procedure Centrilobular emphysema 02/22/2024 Assessment & Plan (02/22/2024 9:05 AM UNIT SUPERVISOR): Continue Trelegy Ellipta 100 daily Albuterol as [...] 02/21 Assessment & Plan (02/22/2024 9:06 AM UNIT SUPERVISOR): Last CT chest in November of 2023 [...] on file Legal Sex Female 9:14 PM UNIT SUPERVISOR Gender Identity Not on file Sexual Orientation Not on file Last Filed Vital Signs Vital Sign Reading Time Taken Comments Blood Pressure 118/62 05/30/2024 7:40 AM UNIT SUPERVISOR Pulse 74 05/30/2024 9:02 AM UNIT SUPERVISOR Temperature 37.4 C (99.4 F) 05/30/2024 7:40 AM UNIT SUPERVISOR Respiratory Rate 18 05/30/2024 7:40 AM UNIT SUPERVISOR Oxygen Saturation 95% 05/30/2024 7:40 AM UNIT SUPERVISOR Inhaled Oxygen Concentration - - Weight 57.6 kg (126 lb 15.8 oz) 05/30/2024 5:45 AM UNIT SUPERVISOR Height 162.6 cm (5' 4 ) 05/29/2024 6:49 AM UNIT SUPERVISOR Body Mass Index 21.8 05/29/2024 6:49 AM UNIT SUPERVISOR Plan of Treatment Not on file Medical Devices Implanted Type Area Core Finisher Device Identifier Shelf Expiration Date Model / Serial / Lot [employer] Vascular Occluder Amplatzer Talisman Pfo 25-18mm [id number] - [id number] Implanted:Qty: 1 on 05/29/2024 by Gallo Diehl MD at [facility] Septal Defect Closure Device [employer] 03/27/2025 [id number] / / O[employer] V[employer] System Closure Repair Femoral Artery Suture Mediated Perclose Prostyle 79049-93 - [id number] Implanted:Qty: 1 on 05/29/2024 by Gallo Diehl MD at [facility] [employer] 02/24/2026 [id number] / / [id number] Procedures Procedure Name Priority Date/Time Associated Diagnosis Comments TRANSTHORACIC ECHO (TTE) LIMITED/FOLLOW UP W LTD DOPPLER/CF WO CONTRAST Routine 05/30/2024 8:27 AM UNIT SUPERVISOR POCT GLUCOSE DEVICE Routine 05/30/2024 8 :18 AM UNIT SUPERVISOR EGFR Routine 05/30/2024 4:01 AM UNIT SUPERVISOR DIFFERENTIAL AUTO Routine 05/30/2024 4:0 1 AM UNIT SUPERVISOR CBC WITH AUTO DIFFERENTIAL Routine 05/30/2024 4:01 AM UNIT SUPERVISOR BASIC METABOLIC PANEL Routine 05/30/2024 4:01 AM UNIT SUPERVISOR POCT GLUCOSE DEVICE Routine 05/29/2024 9 :18 PM UNIT SUPERVISOR POCT GLUCOSE DEVICE Routine 05/29/2024 5 :54 PM UNIT SUPERVISOR POCT GLUCOSE DEVICE Routine 05/29/2024 1 2:52 PM UNIT SUPERVISOR POCT GLUCOSE DEVICE Routine 05/29/2024 8 :58 AM UNIT SUPERVISOR ATRIAL SEPTAL DEFECT CLOSURE Routine 05/29/2024 8:38 AM UNIT SUPERVISOR PFO (patent foramen ovale) MN AN ELECTIVE ENDOTRACHEAL AIRWAY Routine 05/29/2024 8:12 AM UNIT SUPERVISOR ECG 12-LEAD Routine 05/29/2024 7:03 AM UNIT SUPERVISOR POCT GLUCOSE DEVICE Routine 05/29/2024 6 :38 AM UNIT SUPERVISOR URINALYSIS AND REFLEX TO MICROSCOPIC AND CULTURE Routine 05/25/2024 12:12 PM UNIT SUPERVISOR Pre-op testing XR FOOT RIGHT 3 OR MORE VIEWS Schedule Routine, Read Routine (OP Routine) 05/24/2024 1:24 PM UNIT SUPERVISOR Left foot pain XR FOOT LEFT 3 OR MORE VIEWS Schedule Routine, Read Routine (OP Routine) 05/24/2024 1:24 PM UNIT SUPERVISOR Right foot pain HEMOGLOBIN A1C Routine 04/12/2018 5:45 AM UNIT SUPERVISOR LIPID PANEL Routine 04/12/2018 5:45 AM UNIT SUPERVISOR from Last 3 Months or Most Recently Relevant to Health Maintenance Results * TRANSTHORACIC ECHO (TTE) LIMITED/FOLLOW UP W LTD DOPPLER/CF WO CONTRAST (05/30/2024 8:27 AM UNIT SUPERVISOR) Anatomical Region Laterality Modality Ultrasound 05/30/2024 7:49 AM UNIT SUPERVISOR Narrative 05/30/2024 12:27 [place] [address] Limited Echocardiogram Report Patient Name: PAULA ORELLANA S : 1960 Study Date: 05/30/2024 7:49:55 AM Gender: F Tech: THAD Location: [id number] Ref Provider: FAZALGALLO Height(Cm): 163 BSA: 1.61 Weight(Kg): 57.6 Heart [...] Electronically Signed By: Zeina Zamora DO, JACINDA, JASPREET, LOU 05/30/2024 12:27:25 PM UNIT SUPERVISOR Procedure Note Zeina Zamora DO - 05/30/2024 [place] [address] Limited Echocardiogram Report Patient Name: PAULA ORELLANA S : 1960 Study Date: 05/30/2024 7:49:55 AM Gender: F Tech: THAD Location: [id number] Ref Provider: GALLO DIEHL Height(Cm): 163 BSA: [...] DO, JACINDA, LOU VOGEL 05/30/2024 12:27:25 PM UNIT SUPERVISOR us Gallo Diehl MD CV ECHO PROCEDURES Final Result * POCT glucose (05/30/2024 8:18 AM UNIT SUPERVISOR) [facility] Signature Glucose, POC 127 70 - 199 mg/dL Blood 05/30/2024 8:18 AM UNIT SUPERVISOR 05/30/2024 8:18 AM UNIT SUPERVISOR Gallo Diehl MD LAB POCT ORDERABLES - DEVICE Fi nal Result Performing Organization Address City/[facility] Co de Phone Number VIKRAM THRASHER [address] [address] Department [place] [address] * eGFR (05/30/2024 4:01 AM UNIT SUPERVISOR) eGFR 61 >=60 mL/min/1. 73 m2 Comment: [...] last reviewed 2021. Blood 05/30/2024 4:01 AM UNIT SUPERVISOR 05/30/2024 4:33 AM UNIT SUPERVISOR Gallo Diehl MD LAB BLOOD ORDERABLES Final Resu lt Performing Organization Address City/[facility]/ZIP Co de Phone Number VIKRAM THRASHER [address] [address] Department [place] [address] * Differential, auto (05/30/2024 4:01 AM UNIT SUPERVISOR) Neutrophil abs 6.5 1.5 - 6.5 K/cumm Imm gran abs 0.0 0.0 - 0.1 K/cumm [facility] Lymphocyte abs 1.2 0.8 - 3.3 K/cumm [facility] Monocyte abs 0.6 0.2 - 0.8 K/cumm [facility] Eosinophil abs 0.0 0.0 - 0.5 K/cumm [facility] Basophil abs 0.0 0.0 - 0.1 K/cumm [facility] Neutrophil pct 77.2 % [facility] Comment: Interpretive Data Percent cell count reference ranges are not reported, since discordance with absolute values may lead to misinterpretation of CBC data. Current Interpretive Data was last revised on 2017. Imm gran pct 0.5 % [facility] Comment: Interpretive Data Percent cell count reference ranges are not reported, since discordance with absolute values may lead to misinterpretation of CBC data. Current Interpretive Data was last revised on 2017. Lymphocyte pct 14.4 % [facility] Comment: Interpretive Data Percent cell count reference ranges are not reported, since discordance with absolute values may lead to misinterpretation of CBC data. Current Interpretive Data was last revised on 2017. Monocyte pct 7.5 % [facility] Comment: Interpretive Data Percent cell count reference ranges are not reported, since discordance with absolute values may lead to misinterpretation of CBC data. Current Interpretive Data was last revised on 2017. Eosinophil pct 0.2 % [facility] Comment: Interpretive Data Percent cell count reference ranges are not reported, since discordance with absolute values may lead to misinterpretation of CBC data. Current Interpretive Data was last revised on 2017. Basophil pct 0.2 % [facility] Comment: Interpretive Data Percent cell count reference ranges are not reported, since discordance with absolute values may lead to misinterpretation of CBC data. Current Interpretive Data was last revised on 2017. Blood 05/30/2024 4:01 AM UNIT SUPERVISOR 05/30/2024 4:12 AM UNIT SUPERVISOR us Gallo Diehl MD LAB BLOOD ORDERABLES Final Resu lt VIKRAM THRASHER [address] [address] Department [place] [address] * (ABNORMAL) CBC with auto differential (05/30/2024 4:01 AM UNIT SUPERVISOR) WBC 8.5 3.8 - 9.9 K/cumm Hgb 11.8(L) 11.9 - 15.5 g/dL [facility] CH Hct 37.2 35.6 - 45.5 % [facility] CH Plt 176 150 - 400 K/cumm [facility] CH MPV 9.0(L) 9.1 - 12.3 fL [facility] RBC 4.07 3.90 - 5.20 M/cumm [facility] CH MCV 91.4 81.3 - 96.4 fL [facility] MCH 29.0 27.1 - 33.3 pg [facility] MCHC 31.7(L) 32.3 - 35.7 g/dL [facility] RDW CV 14.6 11.1 - 14.9 % [facility] CH RDW SD 48.1 35.7 - 48.1 fL [facility] NRBC abs 0.00 0.00 - 0.01 K/cumm [facility] Blood 05/30/2024 4:01 AM UNIT SUPERVISOR 05/30/2024 4:12 AM UNIT SUPERVISOR us Gallo Diehl MD LAB BLOOD ORDERABLES Final Resu lt [facility] [address] [address] Department [place] [address] * Basic metabolic panel (05/30/2024 4:01 AM UNIT SUPERVISOR) Sodium 141 135 - 145 mmol/L Potassium, pl 3.8 3.3 - 4.9 mmol/L [facility] Chloride 103 97 - 110 mmol/L [facility] CO2 25 22 - 32 mmol/L [facility] Anion gap 13 2 - 15 mmol/L [facility] BUN 22 6 - 25 mg/dL [facility] Creatinine 1.02 0.60 - 1.10 mg/dL [facility] Glucose 128 70 - 199 mg/dL [facility] Comment: Interpretive Data Fasting [...] 2022. Calcium 9.8 8.5 - 10.3 mg/dL VIKRAM Blood 05/30/2024 4:01 AM UNIT SUPERVISOR 05/30/2024 4:33 AM UNIT SUPERVISOR Gallo Diehl MD LAB BLOOD ORDERABLES Final Resu lt Performing Organization Address [facility] Co de Phone Number EVANSTEENA [address] [address] [facility] [place] [address] * (ABNORMAL) POCT glucose (05/29/2024 9:18 PM UNIT SUPERVISOR) Glucose, POC 213(H) 70 - 199 mg/dL Blood 05/29/2024 9:18 PM UNIT SUPERVISOR 05/29/2024 9:18 PM UNIT SUPERVISOR Gallo Diehl MD LAB POCT ORDERABLES - DEVICE Fi nal Result Performing Organization Address [facility] Co de Phone Number EVANSTEENA [address] [address] [facility] [place] [address] * POCT glucose (05/29/2024 5:54 PM UNIT SUPERVISOR) Glucose, POC 115 70 - 199 mg/dL Blood 05/29/2024 5:54 PM UNIT SUPERVISOR 05/29/2024 5:54 PM UNIT SUPERVISOR Gallo Diehl MD LAB POCT ORDERABLES - DEVICE Fi nal Result Performing Organization Address [facility] Co de Phone Number VIKRAM [address] [address] [facility] [place] [address] * (ABNORMAL) POCT glucose (05/29/2024 12:52 PM UNIT SUPERVISOR) Glucose, POC 224(H) 70 - 199 mg/dL Blood 05/29/2024 12:5 2 PM UNIT SUPERVISOR 05/29/2024 12:52 PM UNIT SUPERVISOR Gallo Diehl MD LAB POCT ORDERABLES - DEVICE Fi nal Result Performing Organization Address [facility] [place] [address] [address] [facility] [place] [address] * POCT glucose (05/29/2024 8:58 AM UNIT SUPERVISOR) Glucose, POC 120 70 - 199 mg/dL Blood 05/29/2024 8:58 AM UNIT SUPERVISOR 05/29/2024 8:58 AM UNIT SUPERVISOR Gallo Diehl MD LAB POCT ORDERABLES - DEVICE Fi nal Result Performing Organization Address [facility] Phone Number VIKRAM [address] [address] [facility] [place] [address] * ATRIAL SEPTAL DEFECT CLOSURE (05/29/2024 8:38 AM UNIT SUPERVISOR) Anatomical Region Laterality Modality X-Ray Angiograph y Narrative 05/29/2024 8:48 AM UNIT SUPERVISOR Table formatting from the original result was not included. ATRIAL SEPTAL DEFECT (ASD), PATENT FORAMEN OVALE (PFO), FENESTRATION CLOSURE [id number] Brief Op Note Attending Cherry Sorter: Gallo Diehl MD Primary: Gallo Diehl MD CV Documenter: Selam Hernández RN CV Scrub: Ezra Douglass; Avis Lance CV Sales Center Associate: Patricia Bowen RN; Shawna Cooper RN Date of Procedure: 05/29/2024 Specimens: No specimen collected in procedure Preoperative Diagnosis: Pre-op Diagnosis * PFO (patent foramen ovale) [Q21.12] Postoperative Diagnosis: Post-op Diagnosis * PFO (patent foramen ovale) [Q21.12] Name of Procedure: Procedure(s): ATRIAL SEPTAL DEFECT (ASD), PATENT FORAMEN OVALE (PFO), FENESTRATION CLOSURE [id number] Implants: Implant Name Type Inv. Item Serial No. Core Finisher Lot No. LRB No. Used Action [employer] System Closure Repair Femoral Artery Suture Mediated Perclose Prostyle 70360-86 - [id number] [employer]ASC[employer] System Closure Repair Femoral Artery Suture Mediated Perclose Prostyle 12160-28 [employer] [id number] N/A 1 Implanted [employer] Occluder Amplatzer Talisman Pfo 25-18mm [id number] - [id number] Septal Defect Closure Device [employer] Occluder [...] was proctored by Dr. Brandan Cifuentes from [facility]. COMPLICATIONS: None ESTIMATED BLOOD LOSS: 5 mL [...] for 45 days Follow up with Dr. Simpson/Fazal as outpt in 2-4 wks Follow-up echocardiogram with bubble study will be done subsequently. Gallo Diehl MD Date: 05/29/2024 Time: 8:43 AM Gallo Diehl MD CV CARDIAC CATH PROCEDURES Yuli l Result * MN AN ELECTIVE ENDOTRACHEAL AIRWAY (05/29/2024 8:12 AM UNIT SUPERVISOR) Narrative Gerald Retana AA - 05/29/2024 8:12 AM UNIT SUPERVISOR Gerald Retana AA 05/29/2024 8:13 AM Airway [...] silk tape Number of attempts: 1 Chavez Cihu MD ANESTHESIA ORDERABLES Final Result * ECG 12 lead (05/29/2024 7:03 AM UNIT SUPERVISOR) 05/29/2024 7:03 AM UNIT SUPERVISOR Narrative [facility] - 05/29/2024 11:11 AM UNIT SUPERVISOR Vent Rate: 68 bpm RR Interval: 878 msec MN Interval: 184 msec QRS Duration: 97 msec QT Interval: 425 msec QTC Interval: 442 msec P-R-T [place]: 72 - -19 - 60 degrees IMPRESSION: SINUS RHYTHM SEPTAL MYOCARDIAL INFARCTION , PROBABLY OLD VERSUS POOR R-WAVE PROGRESSION ABNORMAL ECG Electronically Signed By: Pantera Wiggins MD Gallo Diehl MD ECG ORDERABLES Final Result Performing Organization Address City/[facility] Co de Phone Number [facility] * POCT glucose (05/29/2024 6:38 AM UNIT SUPERVISOR) Glucose, POC 111 70 - 199 mg/dL Blood 05/29/2024 6:38 AM UNIT SUPERVISOR 05/29/2024 6:38 AM UNIT SUPERVISOR Gallo Diehl MD LAB POCT ORDERABLES - DEVICE Fi nal Result Performing Organization Address City/[facility] Co de Phone Number [facility] [address] [address] Department [place] [address] * Urinalysis reflex to microscopic and culture Urine, clean voided (05/25/2024 12:12 PM UNIT SUPERVISOR) Color, ur Straw Yellow Clarity, ur Clear [...] tendency for uric acid stone formation. Source: [facility] [employer] Current Interpretive Data was last revised on [...] microscopic UA and culture not met. CERNER ANNA MARIE Urine, clean voided 05/25/2024 12:12 PM UNIT SUPERVISOR 05/25/2024 12:21 PM UNIT SUPERVISOR Marianne Matos NP LAB MICROBIOLOGY - GENERAL ORD ERABLES Final Result VIKRAM [address] [address] Department [place] [address] * XR Foot Right 3 or More Views (05/24/2024 1:24 PM UNIT SUPERVISOR) Anatomical Region Laterality Modality Lower Extremities, Foot Right Computed Radiography 05/24/2024 1:31 PM UNIT SUPERVISOR Impressions 05/24/2024 1:31 PM UNIT SUPERVISOR 1. 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 2. Apparent lesser hammertoe deformities with ankle fixed in plantar flexion on these nonweightbearing images. Electronically signed by: Maximus Murry MD Narrative 05/24/2024 1:31 PM UNIT SUPERVISOR EXAMINATION: XR FOOT LEFT 3 OR MORE [...] 3 or More Views (05/24/2024 1:24 PM UNIT SUPERVISOR) Anatomical Region Laterality Modality Lower Extremities, Foot Left Computed Radiography 05/24/2024 1:31 PM UNIT SUPERVISOR Impressions 05/24/2024 1:31 PM UNIT SUPERVISOR 1. 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 2. Apparent lesser hammertoe deformities with ankle fixed in plantar flexion on these nonweightbearing images. Electronically signed by: Maximus Murry MD Narrative 05/24/2024 1:31 PM UNIT SUPERVISOR EXAMINATION: XR FOOT LEFT 3 OR MORE [...] * (ABNORMAL) Hemoglobin A1c (04/12/2018 5:45 AM UNIT SUPERVISOR) Hemoglobin A1c % 5.9(H) 4.0 - 5.6 % 04/12/2018 6:[address] [facility] [employer] HISTORICAL RESULTS Comment: ADA 2016 GUIDELINES: Initial Diagnostic Criteria HbA1c Result: Interpretation: <5.7% Normal 5.7-6.4% At risk for diabetes mellitus >=6.5% Consistent with diabetes mellitus Diabetes monitoring Target value (ADA Recommended) <7% 04/12/2018 5:45 AM UNIT SUPERVISOR 04/12/2018 6:02 AM UNIT SUPERVISOR Narrative [facility] [employer] [facility] HISTORICAL RESULTS - 04/12/2018 6:40 AM UNIT SUPERVISOR Comment In AM Guicho Nova MD LAB BLOOD ORDERABLES Final Resul t [facility] HISTORICAL RESULTS * Lipid panel (04/12/2018 5:45 AM UNIT SUPERVISOR) Triglycerides 124 0 - 149 mg/dL 04/12/2018 6:42 AM UNIT SUPERVISOR [facility] HISTORICAL RESULTS Comment: National Lipid Association/NCEP Guidelines: Normal < 150 mg/dL Borderline high 150-199 mg/dL High 200-499 mg/dL Very High >=500 mg/dL Cholesterol 118 0 - 199 mg/dL 04/12/2018 6:[address] [facility] [employer] HISTORICAL RESULTS Comment: National Lipid Association/NCEP Guidelines: Desirable < 200 mg/dL Borderline high: 200-239 mg/dL High Risk: >=240 mg/dL HDL Cholesterol 52 mg/dL 9 6:42 AM UNIT SUPERVISOR [facility] [employer] [facility] HISTORICAL RESULTS Comment: Reference Ranges: Males: >=40 mg/dL Females: >=50 mg/dL LDL Cholesterol, Calc 41 0 - 129 mg/dL 04/12/2018 6:42 AM UNIT SUPERVISOR [facility] [employer] HISTORICAL RESULTS Comment: National Lipid Association/NCEP Guidelines: Optimal < 100 mg/dL Near Optimal 100-129 mg/dL Borderline high 130-159 mg/dL High >=160 mg/dL Cholesterol/HDL Ratio 2.3 04/12/2018 6:[address] [facility] [employer] HISTORICAL RESULTS Comment: Optimal < 3.5:1 High > 5:1 04/12/2018 5:45 AM UNIT SUPERVISOR 04/12/2018 6:02 AM UNIT SUPERVISOR Narrative [facility] HISTORICAL RESULTS - 04/12/2018 6:42 AM UNIT SUPERVISOR Comment In AM us Guicho Nova MD LAB BLOOD ORDERABLES Final Resul t [facility] HISTORICAL RESULTS from Last 3 Months or Most Recently Relevant to Health Maintenance Insurance IDPA [facility] MEDICARE ADVANTAGE [facility] MEDIC[facility] Address: [address] [address] [place] [address] [facility] MEDICARE ADVANTAGE IDPA Advance Directives For more information, please contact: [phone] * Full Code (Latest Code Status on File) Date Activated Date Inactivated Comments 05/29/2024 10:10 AM 05/30/2024 3:37 PM Care Teams Cardiovascular Technician Relationship Specialty Start Date End Date Agustin Flor MD PCP - General Internal Medicine 06/28/22 Annie Simpson MD [address] [place] [address] Consulting Physician Cardiology 05/30/24
--- OUTSIDE RECORDS SUMMARY | 2024-06-26 12:57 | XMS_ITS ---
Author Organization [facility] Medical Office Building B Address [address] [place] [address] Care Team Providers Care Burr Grinder Name Role Phone Agustin Flor MD Primary Care Provider [phone] Annie Simpson MD Unavailable [phone] Active Problems Problem Noted Date Diagnosed Date PFO (patent foramen ovale) 02/22/2024 Assessment & Plan (02/22/2024 9:06 AM SCIENCES DEAN): She has followed with cardiology and has now seen a surgeon with plans for repair in the next several months We will reassess her dyspnea after her recovery from this procedure Centrilobular emphysema 02/22/2024 Assessment & Plan (02/22/2024 9:05 AM SCIENCES DEAN): Continue Trelegy Ellipta 100 daily Albuterol as [...] 02/21 Assessment & Plan (02/22/2024 9:06 AM SCIENCES DEAN): Last CT chest in November of 2023 [...]
== END 2024-06-26 11:30 | disposition home or self-care (01) ==
LOC: ANHIMG 11:31
PROVIDERS: PCP Internal Medicine; Visit Provider Internal Medicine
DX: M25.561 Pain in right knee (principal)
CPT/HCPCS: 73562

== ENCOUNTER 2024-06-28 21:22 | Emergency (ER) | payer MEDICARE, MEDICAID, SELFPAY ==
--- NOTE | ~2024-06-28 | XR_ITS ---
EXAMINATION: XR chest 2V Exam Date/Time: 06/28/2024 21:47 CDT HISTORY: chest pain Comparison: 06/05/2024. RESULT: Lines, tubes, and devices: Loop recorder. Atrial occlusion device. Lungs and pleura: Clear. Cardiomediastinal silhouette: Stable. Granulomatous calcifications. Other: No acute osseous or upper abdominal finding. IMPRESSION: No acute cardiopulmonary process. Reviewed, dictated and finalized at location K.
[2024-06-28 21:22] VITALS: BP 164/94; PULSE 83; RESP 15; TEMP 36.7; O2SAT 97
--- NOTE | 2024-06-28 21:28 | ECG_ITS ---
Test Date: 2024-06-28 21:30:32 Measurements Intervals [place] Rate: 83 P: 59 TX: 169 QRS: -3 QRSD: 83 T: 56 QT: 374 QTc: 441 Interpretive Statements SINUS RHYTHM INCOMPLETE RIGHT BUNDLE BRANCH BLOCK BASELINE ARTIFACT- I, II, III, AVR, AVL, AVF BORDERLINE ECG Compared to ECG 06/11/2024 15:02:44 NO SIGNIFICANT CHANGE Electronically Signed On 06-29-2024 06:17:34 CDT by José Miguel Jose D.O.
[2024-06-28 21:32] VITALS: PULSE 83; O2SAT 97
[2024-06-28 21:43] LABS: Basophils Percent Auto 0.6 % (0.2-1.2); Eosinophils Absolute Auto 0.2 K/mm3 (0-0.3); Eosinophils Percent Auto 3.1 % (0-4.4); Hemoglobin 12.3 g/dL (12.0-15.0); Immature Granulocyte Absolute 0.02 K/mm3 (0.00-0.031); Immature Granulocyte Percent A 0.4 % (0-0.5); Lymphocytes Absolute Auto 1.07 K/mm3 (0.9-3.2); Lymphocytes Percent Auto 22.1 % (18.3-44.2); Mean Corpuscular HGB Conc 31.5 g/dl (32-36); Mean Platelet Volume 9.1 fl (7.4-10.4); Monocytes Absolute Auto 0.5 K/mm3 (0.1-0.6); Monocytes Percent Auto 9.5 % (2.6-8.5); Neutrophils Absolute Auto 3.1 K/mm3 (1.3-6.7); Neutrophils Percent Auto 64.3 % (45.5-73.1); Platelet Count Result 171 k/mm3 (150-375); Red Blood Count 4.24 M/mm3 (4.2-5.4); Red Cell Distribution Width 14.4 % (11.5-14.5); White Blood Count 4.9 K/mm3 (4.5-10.0)
[2024-06-28] MEDS: ONDANSETRON INJ 4 MG/2 ML VIAL IV PUSH (21:43)
[2024-06-28] MEDS: FAMOTIDINE 20 MG/2 ML VIAL IV PUSH (21:43)
[2024-06-28 21:54] LABS: INR 0.9; Prothrombin Time 12.6 Seconds (11.1-14.7)
[2024-06-28 21:56] LABS: Partial Thromboplastin Time 29.4 Seconds (22.3-36.8)
[2024-06-28 21:59] LABS: Alanine Aminotransferase 35 U/L (6-35); Albumin Level 5.2 g/dL (3.5-5.1); Alkaline Phosphatase 68 U/L (38-126); Anion Gap 9 mmol/L (4-12); Aspartate Amino Transferase 29 U/L (14-36); Bilirubin,Total 0.5 mg/dL (0.2-1.3); Blood Urea Nitrogen 19 mg/dL (7-17); Calcium 10.3 mg/dL (8.4-10.2); Carbon Dioxide 28 mmol/L (22-30); Chloride 101 mmol/L (98-107); Estimated Glomerular Filt Rate 58; Glucose 106 mg/dL (65-110); Lipase 49 U/L (23-300); Potassium 4.8 mmol/L (3.4-5.0); Sodium 138 mmol/L (137-145)
[2024-06-28 22:02] LABS: D Dimer 0.42 ug/mL (<0.48)
--- NOTE | 2024-06-28 22:04 | ED_ITS ---
HPI - Chest Pain General Chief Complaint: Chest Pain Stated Complaint: CP & NAUSEA X 1 HOUR Time Seen by Provider: 06/28/24 21:27 History of Present Illness HPI narrative: 64-year-old female with a past medical history including hypertension, diabetes, anxiety and asthma. She presents to the emergency room with chief complaint of chest pain that started around 8:30 p.m.. She reports feeling nauseous. She had a PFO closure at [facility] several months ago but no other recent surgeries or interventions. Reportedly no complications and has not had a follow-up with her doctor since. Patient endorses chest pain without any shortness of breath, no reported back pain, abdominal pain, fever, chills. No shortness of breath presently. Has not taken anything for the symptoms prior to arrival. Related Data Home Medications ?Medication ?Instructions ?Recorded ?Confirmed ?Last Taken ?Type albuterol sulfate 2.5 mg/3 mL 2.5 mg inhalation Q6H 08/13/20 06/03/22 Unknown History (0.083 %) solution for nebulization amlodipine 5 mg tablet 5 mg PO DAILY 08/13/20 06/03/22 Unknown History blood sugar diagnostic 08/13/20 07/30/21 Unknown History gabapentin 600 mg tablet 600 mg PO TID 08/13/20 06/03/22 Unknown History pantoprazole 20 mg tablet,delayed 20 mg PO QAM 08/13/20 06/03/22 Unknown History release ziprasidone HCl 80 mg capsule 80 mg PO BID 08/13/20 06/03/22 Unknown History fluticasone fur. 200 mcg-umeclid 1 inh inhalation DAILY 06/03/22 06/03/22 Unknown History 62.5 mcg-vilant 25 mcg inhalat.powder (Trelegy Ellipta) hydroxyzine pamoate 25 mg capsule 25 mg PO DAILY 06/03/22 06/03/22 Unknown History insulin detemir U-100 100 unit/mL 20 unit subcut BID 06/03/22 06/03/22 Unknown History (3 mL) subcutaneous pen (Levemir FlexPen) insulin human U-100 NPH-regulr 10 unit subcut BID 06/03/22 06/03/22 Unknown History 70-30 mix 100 unit/mL subcutaneous susp (Novolin 70/30 U-100 Insulin) Allergies Allergy/AdvReac Type Severity Reaction Status Date / Time azithromycin Allergy Mild Itching Verified 06/05/24 21:01 aspirin Allergy Difficulty Verified 10/21/23 11:45 Breathing clonazepam Allergy Anaphylaxis Verified 10/21/23 11:45 chlorthalidone AdvReac Itching Verified 10/21/23 11:45 Review of Systems 2 Review of Systems: As reviewed above in HPI [facility] Family History Family History Father Alcoholism Mother Alcoholism Other Alcoholism Hypertension Depression Social History Social History Smoking status: Never smoker Alcohol intake: never Substance use: never Exam 2 Narrative: GENERAL: [Well-appearing, well-nourished, and in no acute distress.] HEAD: [Normocephalic, atraumatic.] EYES: [PERRLA and EOMI.] ENT: Nares clear, no rhinorrhea or epistaxis. Mucous membranes moist. NECK: Supple. CHEST: [Clear to auscultation. No respiratory distress.] HEART: [Regular rate and rhythm]. No murmur heard. [Normal peripheral pulses.] ABDOMEN: [Soft, nondistended], [nontender], [No rigidity or guarding] EXTREMITIES: Normal range of motion. [No edema.] Chronic appearing contractures in the bilateral lower ankles SKIN: Warm, dry, no rash. NEURO: [No focal deficits]. Alert and oriented [x3.] PSYCH: [Normal mood and affect.] Course Vital Signs Vital signs: Vital Signs Temperature 36.7 C 06/28/24 21:22 Pulse Rate 83 06/28/24 21:22 Respiratory Rate 15 06/28/24 21:22 Blood Pressure 164/94 H 06/28/24 21:22 Pulse Oximetry 97 06/28/24 21:22 Oxygen Delivery Room Air 06/28/24 21:22 Temperature 36.7 C 06/28/24 21:22 Pulse Rate 60 06/29/24 03:12 Respiratory Rate 12 06/29/24 03:12 Blood Pressure 116/71 06/29/24 03:12 Pulse Oximetry 96 06/29/24 03:12 Oxygen Delivery Room Air 06/28/24 21:32 MDM - Chest Pain MDM Narrative Medical decision making narrative: 64-year-old female with a past medical history including hypertension, diabetes and asthma. She presents with chest pain without any shortness of breath. States the chest pain began a 30 p.m., nonexertional. No pleuritic component. No present nausea vomiting. No abdominal pain or back pain. Was otherwise in her normal state of health. Had recent PFO closure several months ago at [facility], no complications reported per the patient. She is not any acute distress, has unremarkable physical examination with 2+ symmetric pulses, clear breath sounds throughout, no vital anomalies aside from stable hypertension. No tachycardia, fever or hypoxia. Suspicion presently is for potential musculoskeletal chest pain, gastritis, GERD, ACS, pneumonia, pneumothorax, less likely thromboembolic event but she did have a recent procedure. D-dimer was ordered to help delineate further as well as a cardiac workup with serial troponins, EKG, chest x-ray, CBC, CMP. Zofran and Pepcid for symptom control and she was re-evaluated frequently. Patient provided fluid bolus. Patient was re-evaluated after initial medications and had symptomatic resolution. Feeling comfortable at this time. Workup shows no leukocytosis, anemia, platelet concerns. Troponin negative x2. Negative D-dimer. Normal electrolytes, normal LFTs. Patient's chest x-ray shows no acute cardiopulmonary disease. EKG shows sinus rhythm. No acute ST segment changes. She is stable for discharge home at this time. Medical Records Data Attestation: I reviewed the patient's medical records. Lab Data Attestation: I reviewed the patient's lab results. 06/28/24 21:36 06/28/24 21:36 Labs: Lab Results 06/28/24 06/28/24 06/29/24 Range/Units 21:36 21:36 00:39 WBC 4.9 (4.5-10.0) K/mm3 RBC 4.24 (4.2-5.4) M/mm3 Hgb 12.3 (12.0-15.0) g/dL Hct 39.0 (37.0-47.0) % MCV 92.0 (80-100) fl MCH 29.0 (26-34) pg MCHC 31.5 L (32-36) g/dl RDW 14.4 (11.5-14.5) % Plt Count 171 (150-375) k/mm3 MPV 9.1 (7.4-10.4) fl Immature Gran % (Auto) 0.4 (0-0.5) % Neut % (Auto) 64.3 (45.5-73.1) % Lymph % (Auto) 22.1 (18.3-44.2) % [place] % (Auto) 9.5 H (2.6-8.5) % Eos % (Auto) 3.1 (0-4.4) % Baso % (Auto) 0.6 (0.2-1.2) % Lymph # (Auto) 1.07 (0.9-3.2) K/mm3 [place] # (Auto) 0.5 (0.1-0.6) K/mm3 Eos # (Auto) 0.2 (0-0.3) K/mm3 Baso # (Auto) 0.0 (0.0-0.1) K/mm3 Abs Immat Gran (auto) 0.02 (0.00-0.031) K/mm3 Absolute Neuts (auto) 3.1 (1.3-6.7) K/mm3 Absolute Nucleated RBC 0.000 (0.0-0.012) K/mm3 Nucleated RBC % 0.0 (0.0-0.2) % PT 12.6 (11.1-14.7) Seconds INR 0.9 APTT 29.4 (22.3-36.8) Seconds D-Dimer 0.42 Cancelled (<0.48) ug/mL Sodium 138 (137-145) mmol/L Potassium 4.8 (3.4-5.0) mmol/L Chloride 101 (98-107) mmol/L Carbon Dioxide 28 (22-30) mmol/L Anion Gap 9 (4-12) mmol/L BUN 19 H (7-17) mg/dL Creatinine 0.96 (0.7-1.0) mg/dL Estim Creat Clear Calc Not Reportable Estimated GFR 58 L (59 - ) Glucose 106 (65-110) mg/dL Calcium 10.3 H (8.4-10.2) mg/dL Total Bilirubin 0.5 (0.2-1.3) mg/dL AST 29 (14-36) U/L ALT 35 (6-35) U/L Alkaline Phosphatase 68 (38-126) U/L Troponin I < 0.012 < 0.012 (0.000-0.034) ng/mL Total Protein 8.0 (6.3-8.2) g/dL Albumin 5.2 H (3.5-5.1) g/dL Lipase 49 (23-300) U/L Imaging Data Attestation: I personally reviewed and interpreted this imaging study as follows: My impression: Impressions Chest X-Ray 06/28/24 22:15 IMPRESSION: No acute cardiopulmonary process. ECG Data EKG #1: Attestation: I personally reviewed and interpreted this ECG as follows: ECG completion date: 06/29/24 ECG completion time: 21:30 Prior ECG tracings: available for review Interpretation: No ST segment elevations, depressions or inversions. QTC 441, QRS 83, RI interval 169. Normal sinus rhythm. Slightly leftward axis, regular rate and rhythm. Discharge Plan Discharge Clinical Impression: Chest pain Patient Disposition: Home, Self-Care Condition: Stable Instructions: Antibiotic Form Additional Instructions: Your cardiac enzymes are undetectable, no signs of a blood clot or pneumonia. Follow-up with regular doctor. Return with any new or emergent concerns. Patient Language: Mac[place] Prescriptions: No Action albuterol sulfate 2.5 mg /3 mL (0.083 %) solution for nebulization 2.5 mg inhalation Q6H pantoprazole 20 mg tablet,delayed release (DR/EC) 20 mg PO QAM gabapentin 600 mg tablet 600 mg PO TID (DME) blood sugar diagnostic Strip See Rx Instructions .Route Rx Instructions: As directed ziprasidone HCl 80 mg capsule 80 mg PO BID Rx Instructions: give with food (meal/snack) amlodipine 5 mg tablet 5 mg PO DAILY Novolin 70/30 U-100 Insulin 100 unit/mL (70-30) Suspension 10 unit SUBCUT BID hydroxyzine pamoate 25 mg Capsule 25 mg PO DAILY Levemir FlexPen 100 unit/mL (3 mL) Insulin Pen 20 unit SUBCUT BID Trelegy Ellipta 200-62.5-25 mcg Blister With Device 1 inh INHALATION DAILY potassium chloride [K-Tab] 20 mEq tablet extended release 20 meq PO BID Qty: 10 0RF Follow-up/Referrals: Chacho,MD Agustin [Primary Care Provider] - Time of Disposition: 01:23 Quality HEART score for chest pain patients History: slightly suspicious ECG: normal Age: > or = to 65 years Risk factors: 1 or 2 risk factors Troponin: < or = to 1x normal limit Heart score: 3
[2024-06-28 22:11] LABS: Troponin I < 0.012 ng/mL (0.000-0.034)
--- OUTSIDE RECORDS SUMMARY | 2024-06-28 22:16 | XMS_ITS | Data Portability ---
Author Organization [employer] [facility] [employer], Main Office Address [address] [place] [address] Assessment Encounter Date Assessment Date Assessment LastModified by Organization Details LastModified Time 09/21/2022 09/21/2022 Will cut her long-acting insulin in half will cut her mealtime insulin in half she will follow-up with me in 2 months Levemir will be 10 units Novolin will be 5 unit [email or web address] Not available 09/21/2022 22:52:16 11/30/2022 11/30/2022 Parking placard blood pressure diabetes hyperlipidemia discussed follow-up 3 month [email or web address] Not available 11/30/2022 22:36:44 02/01/2023 02/01/2023 Podiatry She can see Ortho as well Continue with her medicines for her hyperlipidemia diabetes and hypertension Follow-up with me in a month Not available 02/02/2023 21:20:40 03/07/2023 03/07/2023 Given her previous cardiac history will get her set up with Cardiology for surgical clearance blood pressure appears to be well-controlled at 110/62 blood work will also be ascertained for biochemical management of disease processes of medications follow-up with me in about 3 months [email or web address] Not available 03/28/2023 18:10:16 Plan of Treatment Reminders Order Date Submit Date Provider Last Modified By Organization Details Last Modified Time Details Appointments None recorded. Lab CBC w/ auto diff 2022 023 [facility] (Lab), [address] [place], [address], 17:56:00 CMP, serum or plasma 2022 023 [facility] (Lab), [address] [place], [address], 3 19:22:35 lipid panel, serum 2022 023 [facility] (Lab), [address] [place], [address], 3 19:22:40 glycohemogl obin, total, blood 2022 023 [facility] (Lab), [address] [place], [address], 3 19:20:54 urinalysis, dipstick 2022 023 [id number] [facility], [address] [facility] [address], [place], [address], 3 16:45:58 Referral cardiologis t referral 2022 023 Annie Simpson MD, 0 [facility], [address], [place], [address], 4 19:10:44 Procedures None recorded. Surgeries None recorded. Imaging CT, urogram 2022 023 [facility] ([facility]), [address] [place], [address], 3 05:01:33 Medication Orders None recorded. Patient TargetsNo targets recorded. Patient InstructionsNo instructions recorded. 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 Referral for Pr e-surgery evaluation Referring Physician: Agustin Flor, Internal Medicine, Encounter Date: 03/07/2023 Results Created Date Observation Date Name Description Value Unit Range Abnormal Flag Note LastModifiedBy Organization Detail LastModifiedTime 06/23/19 23 06/22/2022 URINA LYSIS COMPL ETE/I RIS W/RFX color YELLOW Not Available [facility] (Lab) [address] [place], [address], 06/22/2022 14:38:50 06/23/19 23 06/22/2022 URINA LYSIS COMPL ETE/I RIS W/RFX appear EX.TUR BID Not Available [facility] (Lab) [address] [place] [place], [address], 06/22/2022 14:38:50 06/23/19 23 06/22/2022 URINA LYSIS COMPL ETE/I RIS W/RFX specific gravity 1.016 1.001- 1.030 Not Available [facility] (Lab) [address] [place], [address], 06/22/2022 14:38:50 06/23/19 23 06/22/2022 URINA LYSIS COMPL ETE/I RIS W/RFX pH 6.5 pH_un its 5.0-9. 0 Not Available [facility] (Lab) [address] [place], [address], 06/22/2022 14:38:50 06/23/19 23 06/22/2022 URINA LYSIS COMPL ETE/I RIS W/RFX leukocytes NEGATI VE palak/u L negati ve- Not Available [facility] (Lab) [address] [place], [address], 06/22/2022 14:38:50 06/23/19 23 06/22/2022 URINA LYSIS COMPL ETE/I RIS W/RFX nitrite NEGATI VE negati ve- Not Available [facility] (Lab) [address] [place], [address], 06/22/2022 14:38:50 06/23/19 23 06/22/2022 URINA LYSIS COMPL ETE/I RIS W/RFX protein 10 mg/dL negati ve- abnormal Not Available [facility] (Lab) [address] [place], [address], 06/22/2022 14:38:50 06/23/19 23 06/22/2022 URINA LYSIS COMPL ETE/I RIS W/RFX glucose NORMAL mg/dL normal - Not Available [facility] (Lab) [address] [place], [address], 06/22/2022 14:38:50 06/23/19 23 06/22/2022 URINA LYSIS COMPL ETE/I RIS W/RFX ketones NEGATI VE mg/dL negati ve- Not Available [facility] (Lab) [address] [place], [address], 06/22/2022 14:38:50 06/23/19 23 06/22/2022 URINA LYSIS COMPL ETE/I RIS W/RFX urobilinogen NORMAL mg/dL normal - Not Available [facility] (Lab) [address] [place], [address], 06/22/2022 14:38:50 06/23/19 23 06/22/2022 URINA LYSIS COMPL ETE/I RIS W/RFX bilirubin NEGATI VE mg/dL negati ve- Not Available [facility] (Lab) [address] [place], [address], 06/22/2022 14:38:50 06/23/19 23 06/22/2022 URINA LYSIS COMPL ETE/I RIS W/RFX blood NEGATI VE mg/dL negati ve- Not Available [facility] (Lab) [address] [place], [address], 06/22/2022 14:38:50 06/23/19 23 06/22/2022 URINA LYSIS COMPL ETE/I RIS W/RFX white blood cells 0-8 /i??h pfi?? 0-8 Not Available [facility] (Lab) [address] [place], [address], 06/22/2022 14:38:50 06/23/19 06/22/2022 URINA LYSIS COMPL ETE/I RIS W/RFX red blood cells 0-4 /i??h pfi?? 0-4 Not Available [facility] (Lab) [address] [place], [address], 06/22/2022 14:38:50 06/23/19 23 06/22/2022 URINA LYSIS COMPL ETE/I RIS W/RFX bacteria NONE Not Available [facility] (Lab) [address] [place], [address], 06/22/2022 14:38:50 06/23/19 23 06/22/2022 URINA LYSIS COMPL ETE/I RIS W/RFX mucous OCCASI ONAL /i??l pfi?? abnormal Not Available [facility] (Lab) [address] [place], [address], 06/22/2022 14:38:50 06/23/19 23 06/22/2022 URINA LYSIS COMPL ETE/I RIS W/RFX squamous epithelial PACKED FIELD /i??l pfi?? abnormal Not Available [facility] (Lab) [address] [place], [address], 06/22/2022 14:38:50 06/23/19 23 06/22/2022 URINA LYSIS COMPL ETE/I RIS W/RFX hyaline cast FEW /i??l pfi?? none seen- abnormal Not Available [facility] (Lab) [address] [place], [address], 06/22/2022 14:38:50 07/03/19 23 07/02/2022 urina lysis , dipst ick Leukocytes (reference range: negative palak/ l) Negati ve Not Available [facility] [address], [place], [address], 07/02/2022 09:52:54 07/03/19 07/02/2022 urina lysis , dipst ick Nitrite (reference rage: negative mg/dl) negati ve Not Available [facility] [address], [place], [address], 07/02/2022 09:52:54 07/03/19 23 07/02/2022 urina lysis , dipst ick Urobilinogen (reference range: 0.2-1 mg/dl) 0.2 Not Available [facility] [address] [place] [address] [address], [place], [address], 07/02/2022 09:52:54 07/03/19 23 07/02/2022 urina lysis , dipst ick Protein (reference range: negative mg/dl) Negati ve Not Available [facility] [address] [place] [address] [address] [facility] [address], [place], [address], 07/02/2022 09:52:54 07/03/19 23 07/02/2022 urina lysis , dipst ick pH (reference range: 5-7) 7.0 Not Available [facility] [address], [place], [address], 07/02/2022 09:52:54 07/03/19 23 07/02/2022 urina lysis , dipst ick Blood (reference range: negative Aaron/ l) Negati ve Not Available [facility] [address], [place], [address], 07/02/2022 09:52:54 07/03/19 23 07/02/2022 urina lysis , dipst ick Specific [place] (reference range: 1.005-1.030) 1.015 Not Available [facility] [address] [place] [address] [address] [facility] [address], [place], [address], 07/02/2022 09:52:54 07/03/19 23 07/02/2022 urina lysis , dipst ick Ketone (reference range: negative mg/dl) Negati ve Not Available [facility] [address] [place] [address] [address], [place], [address], 07/02/2022 09:52:54 07/03/19 23 07/02/2022 urina lysis , dipst ick Bilirubin (reference range: negative mg/dl) Negati ve Not Available [facility] [address] [place] [address] [address], [place], [address], 07/02/2022 09:52:54 07/03/19 23 07/02/2022 urina lysis , dipst ick Glucose (reference range: negative mg/dl) 500 Not Available [facility] [address] [place] [address] [address], [place], [address], 07/02/2022 09:52:54 07/03/19 23 07/02/2022 urina lysis , dipst ick Appearance Clear Not Available [facility] [address], [place], [address], 07/02/2022 09:52:54 07/03/19 23 07/02/2022 urina lysis , dipst ick Color Yellow Not Available [facility] [address], [place], [address], 07/02/2022 09:52:54 07/20/19 23 07/19/2022 urina lysis , dipst ick Leukocytes (reference range: negative palak/ l) Negati ve Not Available [facility] [address] [place] [address] [address], [place], [address], 07/19/2022 11:58:47 07/20/19 23 07/19/2022 urina lysis , dipst ick Nitrite (reference rage: negative mg/dl) negati ve Not Available [facility] [address], [place], [address], 07/19/2022 11:58:47 07/20/19 23 07/19/2022 urina lysis , dipst ick Urobilinogen (reference range: 0.2-1 mg/dl) 0.2 Not Available [facility] [address] [facility], [place], [address], 07/19/2022 11:58:47 07/20/19 23 07/19/2022 urina lysis , dipst ick Protein (reference range: negative mg/dl) Trace Not Available [facility] [address] [facility] [address], [place], [address], 07/19/2022 11:58:47 07/20/19 23 07/19/2022 urina lysis , dipst ick pH (reference range: 5-7) 6.0 Not Available [facility] [address] [facility] [address], [place], [address], 07/19/2022 11:58:47 07/20/19 23 07/19/2022 urina lysis , dipst ick Blood (reference range: negative Aaron/ l) Large Not Available [facility] [address] [place] [address] [address] [facility] [address], [place], [address], 07/19/2022 11:58:47 07/20/19 23 07/19/2022 urina lysis , dipst ick Specific [place] (reference range: 1.005-1.030) 1.000 Not Available [facility] [address] [facility] [address], [place], [address], 07/19/2022 11:58:47 07/20/19 23 07/19/2022 urina lysis , dipst ick Ketone (reference range: negative mg/dl) Trace Not Available [facility] [address] [facility] [address], [place], [address], 07/19/2022 11:58:47 07/20/19 23 07/19/2022 urina lysis , dipst ick Bilirubin (reference range: negative mg/dl) Negati ve Not Available [facility] [address] [facility], [place], [address], 07/19/2022 11:58:47 07/20/19 23 07/19/2022 urina lysis , dipst ick Glucose (reference range: negative mg/dl) Negati ve Not Available [facility] [address] [facility], [place], [address], 07/19/2022 11:58:47 07/20/19 23 07/19/2022 urina lysis , dipst ick Appearance Clear Not Available [facility] [address] [facility], [place], [address], 07/19/2022 11:58:47 07/20/19 23 07/19/2022 urina lysis , dipst ick Color Yellow Not Available [facility] [address] [facility], [place], [address], 07/19/2022 11:58:47 03/07/20 23 03/07/2023 CBC/C OMPLE TE BLD COUNT W/DIF F white blood cells 5.0 x10'3 /uL 4.2-10 .8 Not Available [facility] ([facility]) [address], [place], [address], 03/07/2023 17:56:00 03/07/20 23 03/07/2023 CBC/C OMPLE TE BLD COUNT W/DIF F red blood cells 4.22 x10'6 /uL 3.80-5 .20 Not Available [facility] (Lab) [address] [place], [address], 03/07/2023 17:56:00 03/07/20 23 03/07/2023 CBC/C OMPLE TE BLD COUNT W/DIF F hemoglobin 12.6 g/dL 12.0-1 5.6 Not Available [facility] (Lab) [address] [facility] [place], [address], 03/07/2023 17:56:00 03/07/20 23 03/07/2023 CBC/C OMPLE TE BLD COUNT W/DIF F hematocrit 40.4 % 35.7-4 5.7 Not Available [facility] (Lab) [address] [place], [address], 03/07/2023 17:56:00 03/07/20 23 03/07/2023 CBC/C OMPLE TE BLD COUNT W/DIF F mean red cell volume 95.7 fL 82.0-9 9.0 Not Available [facility] (Lab) [address] [place], [address], 03/07/2023 17:56:00 03/07/20 23 03/07/2023 CBC/C OMPLE TE BLD COUNT W/DIF F mean red cell hemoglobin 29.9 pg 27.0-3 3.0 Not Available [facility] (Lab) [address] [place], [address], 03/07/2023 17:56:00 03/07/20 23 03/07/2023 CBC/C OMPLE TE BLD COUNT W/DIF F mean RBC HGB concentratio n 31.2 g/dL 31.0-3 6.0 Not Available [facility] (Lab) [address] [place], [address], 03/07/2023 17:56:00 03/07/20 23 03/07/2023 CBC/C OMPLE TE BLD COUNT W/DIF F red cell distribution width 14.4 % 11.8-1 5.5 Not Available [facility] (Lab) [address] [place], [address], 03/07/2023 17:56:00 03/07/20 23 03/07/2023 CBC/C OMPLE TE BLD COUNT W/DIF F platelets 204 x10'3 /uL 150-40 0 Not Available [facility] (Lab) [address] [place], [address], 03/07/2023 17:56:00 03/07/20 23 03/07/2023 CBC/C OMPLE TE BLD COUNT W/DIF F mean platelet volume 9.9 fL 9.0-12 .4 Not Available [facility] (Lab) [address] [place], [address], 03/07/2023 17:56:00 03/07/20 23 03/07/2023 CBC/C OMPLE TE BLD COUNT W/DIF F neutrophils 71.4 % 39.0-7 2.0 Not Available [facility] (Lab) [address] [place], [address], 03/07/2023 17:56:00 03/07/20 23 03/07/2023 CBC/C OMPLE TE BLD COUNT W/DIF F lymphocytes 14.7 % 16.0-4 7.0 low Not Available [facility] (Lab) [address] [place], [address], 03/07/2023 17:56:00 03/07/20 23 03/07/2023 CBC/C OMPLE TE BLD COUNT W/DIF F monocytes 10.7 % 5.0-12 .0 Not Available [facility] (Lab) [address] [place], [address], 03/07/2023 17:56:00 03/07/20 23 03/07/2023 CBC/C OMPLE TE BLD COUNT W/DIF F eosinophils 2.0 % 1.0-7. 0 Not Available [facility] (Lab) [address] [place], [address], 03/07/2023 17:56:00 03/07/20 23 03/07/2023 CBC/C OMPLE TE BLD COUNT W/DIF F basophils 0.8 % 0.0-2. 0 Not Available [facility] (Lab) [address] [place], [address], 03/07/2023 17:56:00 03/07/20 23 03/07/2023 CBC/C OMPLE TE BLD COUNT W/DIF F immature granulocytes 0.4 % 0.00-0 .50 Not Available [facility] (Lab) [address] [place], [address], 03/07/2023 17:56:00 03/07/2003/07/2023 CBC/C OMPLE TE BLD COUNT W/DIF F neutrophils, absolute count 3.54 x10'3 /uL 1.5-8. 0 Not Available [facility] (Lab) [address] [place], [address], 03/07/2023 17:56:00 03/07/2003/07/2023 CBC/C OMPLE TE BLD COUNT W/DIF F lymphocytes, absolute count 0.73 x10'3 /uL 1.07-3 .43 low Not Available [facility] (Lab) [address] [place], [address], 03/07/2023 17:56:00 03/07/20 23 03/07/2023 CBC/C OMPLE TE BLD COUNT W/DIF F monocytes, absolute count 0.53 x10'3 /uL 0.29-0 .99 Not Available [facility] (Lab) [address] [place], [address], 03/07/2023 17:56:00 03/07/20 23 03/07/2023 CBC/C OMPLE TE BLD COUNT W/DIF F eosinophils, absolute count 0.10 x10'3 /uL 0.02-0 .53 Not Available [facility] (Lab) [address] [place], [address], 03/07/2023 17:56:00 03/07/20 23 03/07/2023 CBC/C OMPLE TE BLD COUNT W/DIF F basophils, absolute count 0.04 x10'3 /uL 0.01-0 .08 Not Available [facility] (Lab) [address] [place], [address], 03/07/2023 17:56:00 03/07/20 23 03/07/2023 CBC/C OMPLE TE BLD COUNT W/DIF F immature granulocytes ,absolute 0.02 x10'3 /uL 0.00-0 .05 Not Available [facility] (Lab) [address] [place], [address], 03/07/2023 17:56:00 03/07/20 23 03/07/2023 CBC/C OMPLE TE BLD COUNT W/DIF F nucleated red blood cells 0.0 % -0 Not Available [facility] (Lab) [address] [place], [address], 03/07/2023 17:56:00 03/07/20 23 03/07/2023 CBC/C OMPLE TE BLD COUNT W/DIF F NRBC# 0.00 x10'3 /uL Not Available [facility] (Lab) [address] [place], [address], 03/07/2023 17:56:00 03/07/20 23 03/07/2023 HEMOG LOBIN A1C HA1C 6.1 % 4.0-6. 0 high Diabe ash Scree luis fernando Crite jacqueline: <5.7% Consi stent with absen ce of diabe ash 5.7-6 .4% Consi stent with incre ased risk for diabe ash (pred iabet es) >OR=6 .5% Consi stent with diabe ash REFER ENCE: Diabe ash Care 2016, 39(Mejia ppl.1 ):s13 -s22 Not Available [facility] (Lab) [address] [place], [address], 03/07/2023 19:20:54 03/07/20 23 03/07/2023 COMPR EHENS ROBEL METAB OLIC PANEL sodium 141 mmol/ L 137-14 5 Not Available [facility] (Lab) [address] [place], [address], 03/07/2023 19:22:35 03/07/20 23 03/07/2023 COMPR EHENS ROBEL METAB OLIC PANEL potassium 3.8 mmol/ L 3.5-5. 1 Not Available [facility] (Lab) [address] [place], [address], 03/07/2023 19:22:35 03/07/20 23 03/07/2023 COMPR EHENS ROBEL METAB OLIC PANEL chloride 103 mmol/ L 98-107 Not Available [facility] (Lab) [address] [place], [address], 03/07/2023 19:22:35 03/07/20 23 03/07/2023 COMPR EHENS ROBEL METAB OLIC PANEL carbon dioxide 30 mmol/ L 22-30 Not Available [facility] (Lab) [address] [place], [address], 03/07/2023 19:22:35 03/07/20 23 03/07/2023 COMPR EHENS ROBEL METAB OLIC PANEL anion gap 11.8 mmol/ L 14-22 low Not Available [facility] (Lab) [address] [place], [address], 03/07/2023 19:22:35 03/07/20 23 03/07/2023 COMPR EHENS ROBEL METAB OLIC PANEL glucose 84 mg/dL 70-99 Not Available [facility] (Lab) [address] [place], [address], 03/07/2023 19:22:35 03/07/20 23 03/07/2023 COMPR EHENS ROBEL METAB OLIC PANEL BUN 25 mg/dL 8-19 high Not Available [facility] (Lab) [address] [place], [address], 03/07/2023 19:22:35 03/07/20 23 03/07/2023 COMPR EHENS ROBEL METAB OLIC PANEL creatinine 0.77 mg/dL 0.66-1 .25 Not Available [facility] (Lab) [address] [place], [address], 03/07/2023 19:22:35 03/07/20 23 03/07/2023 COMPR EHENS ROBEL METAB OLIC PANEL GFR >60 Refer ence Range : [place] ge GFR Healt hy Adult : >60 [...] traci is avail able on the [facility] websi te: https ://elijah navas.india valentiny.o rg/pr ofess ional s/kdo qi/gf r_cal culat or Not Available [facility] (Lab) [address] [place], [address], 03/07/2023 19:22:35 03/07/20 23 03/07/2023 COMPR EHENS ROBEL METAB OLIC PANEL alkaline phosphatase 56 U/L 38-126 Not Available [facility] (Lab) [address] [place], [address], 03/07/2023 19:22:35 03/07/20 23 03/07/2023 COMPR EHENS ROBEL METAB OLIC PANEL alanine aminotransfe rase 27 U/L 0-35 Not Available [facility] (Lab) [address] [place], [address], 03/07/2023 19:22:35 03/07/20 23 03/07/2023 COMPR EHENS ROBEL METAB OLIC PANEL aspartate aminotransfe rase 25 U/L 15-37 Not Available [facility] (Lab) [address] [place], [address], 03/07/2023 19:22:35 03/07/20 23 03/07/2023 COMPR EHENS ROBEL METAB OLIC PANEL bilirubin, total 0.20 mg/dL 0.20-1 .30 Not Available [facility] (Lab) [address] [place], [address], 03/07/2023 19:22:35 03/07/20 23 03/07/2023 COMPR EHENS ROBEL METAB OLIC PANEL calcium 9.8 mg/dL 8.4-10 .2 Not Available [facility] (Lab) [address] [place], [address], 03/07/2023 19:22:35 03/07/20 23 03/07/2023 COMPR EHENS ROBEL METAB OLIC PANEL total protein 6.3 g/dL 6.3-8. 2 Not Available [facility] (Lab) [address] [place], [address], 03/07/2023 19:22:35 03/07/20 23 03/07/2023 COMPR EHENS ROBEL METAB OLIC PANEL albumin 4.1 g/dL 3.0-4. 4 Not Available [facility] (Lab) [address] [place], [address], 03/07/2023 19:22:35 03/07/20 23 03/07/2023 COMPR EHENS ROBEL METAB OLIC PANEL globulin 2.2 g/dL 2.6-4. 2 low Not Available [facility] (Lab) [address] [place], [address], 03/07/2023 19:22:35 03/07/20 23 03/07/2023 COMPR EHENS ROBEL METAB OLIC PANEL A/G ratio 1.9 ratio 1.0-2. 0 Not Available [facility] (Lab) [address] [place], [address], 03/07/2023 19:22:35 03/07/20 23 03/07/2023 LIPID PANEL cholesterol 125 mg/dL 140-19 9 low NIH ITZEL NSUS RECOM MENDA TION FOR CEASAR STERO L: ADULT CHILD LOW RISK: <200 <170 BORDE RLINE : <200- 239 ----- HIGH RISK: >240 >200 Not Available [facility] (Lab) [address] [place], [address], 03/07/2023 19:22:40 03/07/20 23 03/07/2023 LIPID PANEL triglyceride s 273 mg/dL 0-150 high NIH ITZEL NSUS REPOR T RECOM MENDA TION FOR TRIGL YCERI GIAN: ADULT CHILD LOW RISK: <150 ----- BODER LINE: 150-1 99 ----- HIGH RISK: >200 ----- Not Available [facility] (Lab) [address] [place], [address], 03/07/2023 19:22:40 03/07/20 23 03/07/2023 LIPID PANEL HDL cholesterol 63 mg/dL 40- Not Available [facility] (Lab) [address] [place], [address], 03/07/2023 19:22:40 03/07/20 23 03/07/2023 LIPID PANEL [...] WILL NOT BE REPOR ARTHUR. Not Available [facility] (Lab) [address] [place], [address], 03/07/2023 19:22:40 07/03/19 23 07/02/2022 US, feroz er No observ ation record ed. [email or web address] [facility] [address] [facility] [address], [place], [address], 07/05/2022 10:36:06 07/16/19 23 07/15/2022 XR, chest , 2 view [facility] [address] [place] [address] Patien t Name: PAULA ORELLANA Access ion #: [id number] Sex: F : 1960 5 Locati [...] 2 view chest. Page 1 of 2 [facility] Name: PAULA ORELLANA Access ion #: [id number] Sex: F : 1960 5 Exam Date: 023 1:37 PM Exam Name: XR CHEST 2V Admitt ing Diagno sis(es ): Create d and electr onical ly signed by: Brandan baker MD Signed Date: 4:46 PM (CT) Dictat ed by: Brandan baker MD DD: 4:46 PM (CT) DT: 4:46 PM (CT) Page 2 of 2 [email or web address] [facility] (Imaging) [address] [place], [address], 09/23/2022 09:59:41 09/17/19 23 09/16/2022 XR, chest No observ ation record ed. [email or web address] [address] [place] [address], [address], 09/23/2022 10:00:00 Result Notes None recorded. Problems Name Problem SNOMED Code Status Onset Date Resolution Date Notes Provider Name and Address Organization Details Recorded Time Cellulitis of foot 646954940 Active 2021 Not Available [facility] 4 12:02:15 Computed tomography result abnormal 884808092 Active 2022 Not Available [facility] 4 12:02:15 Postoperat [facility] Active 2021 Not Available [facility] 4 12:02:15 Chronic obstructiv e pulmonary disease 37560452 Active 2016 Not Available [facility] 4 12:02:15 CT of abdomen abnormal 1380656449733 9107 Active 2022 Not Available [facility] 4 12:02:15 Cirrhosis of liver 00472211 Active 2016 Not Available [facility] 4 12:02:15 Neuropathy due to diabetes mellitus 298473183 Active 2020 Not Available [facility] 4 12:02:15 Low back pain 354811340 Active 2021 Not Available [facility] 4 12:02:15 Chest pain 83665350 Active 2022 Not Available [facility] 4 12:02:15 Type 2 diabetes mellitus without complicati on 996099290 Active 2021 Not Available [facility] 4 12:02:15 Former heavy tobacco smoker 8024389310953 00 Active 2016 Not Available [facility] 4 12:02:15 Acute urinary tract infection 904721814 Active 2021 Not Available [facility] 4 12:02:15 Type 2 diabetes mellitus 45510182 Active 2020 Not Available [facility] 4 12:02:15 Cough 37840159 Active 2021 Not Available [facility] 4 12:02:15 Upper respirator y infection 37081368 Active 2021 Not Available [facility] 4 12:02:15 Hyperlipid emia 28447995 Active 2020 Not Available [facility] 4 12:02:15 Essential hypertensi on 07739356 Active 2020 Not Available [facility] 4 12:02:15 Otitis media 38346213 Active 2021 Not Available [facility] 4 12:02:15 Urinary tract infectious disease 57297500 Active 2021 Not Available [facility] 12:02:15 Closed fracture of fifth metatarsal bone 90211998 Active 2020 Not Available [facility] 4 12:02:15 Mental disorder 19559067 Active 2020 Not Available [facility] 4 12:02:15 COVID-19 217687002 Active 2021 Not Available [facility] 4 12:02:16 Hyponatrem ia 24622476 Active 2021 Not Available [facility] 4 12:02:16 Dysuria 54902811 Active 2022 Not Available [facility] 4 12:02:15 Flank pain 431776348 Active 2022 Not Available [facility] 4 12:02:15 Increased frequency of urination 820039239 Active 2022 Not Available [facility] 4 12:02:15 Urge incontinen ce of urine 61968988 Active 2022 Not Available [facility] 4 12:02:16 Dyspnea 389807717 Active 2022 Not Available [facility] 4 12:02:15 Nausea and vomiting 86512447 Active 2022 Not Available [facility] 4 12:02:15 Hydrourete r 45593274 Active 2022 Not Available [facility] 4 12:02:15 High grade B-cell lymphoma 413307318 Active 2022 Not Available [facility] 4 12:02:15 Uncontroll ed type 2 diabetes mellitus 255537163 Active 2022 Not Available [facility] 4 12:02:15 Notes:Medical History: Depre ssion Rhinitis [...] Covid 06/02/2020 Some problems listed in Document: #[id number] could not be added to this patient's chart. Please review this document and add these problems to the patient's chart manually as needed. Problem Notes None recorded. Procedures Surgical History Date Name Laterality Status Provider Name and Address Organization Details Recorded Time 2 Foot Surgery completed Not Available [facility] 023 05:55:53 Tonsillectomy completed [facility] 05/26/2022 05:55:53 [facility]ste[facility] 05/26/2022 05:55:53 Imaging Results Imaging Date Name Status LastModified by Organiz ation Details LastModified Time 07/02/2022 US, bladder completed [email or web address] [facility] [place] [address] [facility] [address], [place], [address], 07/05/2022 10:36:06 07/15/2022 XR, chest, 2 view completed [email or web address] [facility] (Imaging) [address] [place], [address], 09/23/2022 09:59:41 09/16/2022 XR, chest completed [email or web address] [facility] [address] [facility] [address], [place], [address], 09/23/2022 10:00:00 Procedure Notes None recorded. Medical Equipment None Reported. Allergies Allergen ID Allergen Name Allergen Category Reaction Reaction Severity Criticality Documentation Date Start Date Code Code System Note Provider Name and Address Organization Details Recorded Time 10259 hydrochlo rothiazid e medicatio n Not available Not available Not available 05/26/2022 5487 RxNorm Not Available [facility] 3 06:08:25 90876 clonazepa m medicatio n Not available Not available Not available 05/26/2022 2598 RxNorm uncon troll ed muscl e movem ent Not Available [facility] 3 06:08:25 31589 chlorthal idone medicatio n Not available Not available Not available 05/26/2022 2409 RxNorm Not Available [facility] 3 06:08:25 53168 aspirin medicatio n eye swelling severe Not available 05/26/2022 1191 RxNorm Not Available [facility] 3 06:08:25 22242 azithromy john medicatio n facial swelling Not available Not available 05/26/2022 03688 RxNorm tongu e swell ing Not Available [facility] 3 06:08:25 96496 cefdinir medicatio n rash Not available Not available 04/21/20232023 29658 RxNorm Quin Vieira RN [facility], [place] - [facility] 4 16:44:05 Medications Name Sig Start Date [...] completed Not Available Not Available Not Available [facility] Ultra Test strips TEST BLOOD SUGAR FOUR [...] Available Not Available Not Available Flucelvax Quad 3056-2352 (PF) 60 mcg (15 mcg x 4)/0.5 [...] Updated DateTime 3 162.56 cm 29.4 kg/m2 10156.3 g 89 % 89 % 97.3 [degF] 78 /min 125 mm[Hg] 83 mm[Hg] KINGSLEY Willoughby - Griselda [place] [employer] [facility] 3 12:36:54 Date Recorded Body height Body mass index (BMI) Body weight Body temperature Heart rate Systolic blood pressure Diastolic blood pressure Provider Name and Address Organization Details Last Updated DateTime 3 162.56 cm 23.5 kg/m2 02289.1 5 g 97.6 [degF] 98 /min 102 mm[Hg] 60 mm[Hg] Estefani Thorne MARICRUZSusan [facility] [employer] [facility] 3 11:28:14 Date Recorded Body height Body temperature Heart rate Systolic blood pressure Diastolic blood pressure Provider Name and Address Organization Details Last Updated DateTime 3 162.56 cm 97.5 [degF] 91 /min 114 mm[Hg] 68 mm[Hg] Ritika Espinoza RN [facility] [employer] [facility] 3 15:06:55 Date Recorded Body height Body temperature Heart rate Systolic blood pressure Diastolic blood pressure Provider Name and Address Organization Details Last Updated DateTime 02/01/2023 162.56 cm 97.4 [degF] 81 /min 110 mm[Hg] 68 mm[Hg] Estefani Thorne Susan [facility] [email or web address] [facility] 3 15:10:12 Date Recorded Body height Body temperature Heart rate Oxygen saturation Oxygen saturation in Arterial blood by Pulse oximetry Systolic blood pressure Diastolic blood pressure Provider Name and Address Organization Details Last Updated DateTime 3 162.56 cm 97.5 [degF] 87 /min 95 % 95 % 110 mm[Hg] 62 mm[Hg] Estefani Thorne Susan [facility] [email or web address] [facility] 3 15:26:25 Social History Question Answer Notes LastModified by Organization Details LastModified Time Tobacco Smoking Status Former Smoker quit 2010 Not Available [facility] 05/26/2022 05:55:15 Do You Have An Advance Directive? No MIGRATION.0301 [id number] Information not available 05/26/2022 What Is Your Level Of Alcohol Consumption? None Quit 2007 MIGRATION.0301 569042 Information not available 05/26/2022 Do You Wear A Helmet When Biking? No MIGRATION.030 229882 Information not available 05/26/2022 What Is Your Level Of Caffeine Consumption? None MIGRATION.0301 199468 Information not available 05/26/2022 In The 14 Days Before Symptom Onset, Have You Had Close Contact With A Laboratory-confi rmed COVID-19 While That Case Was Ill? No MIGRATION.0301 424756 Information not available 05/26/2022 In The 14 Days Before Symptom Onset, Have You Had Close Contact With A Person Who Is Under Investigation For COVID-19 While That Person Was Ill? No MIGRATION.0301 186392 Information not available 05/26/2022 What Type Of Diet Are You Following? REGULAR MIGRATION.0301 502998 Information not available 05/26/2022 What Is The Highest Grade Or Level Of School You Have Completed Or The Highest Degree You Have Received? XV18708-4 MIGRATION.0301 099225 Information not available 05/26/2022 Have There Been Any Changes To Your Family Or Social Situation? No MIGRATION.0301 501767 Information not available 05/26/2022 What Is The Fluoride Status Of Your Home? Unknown MIGRATION.0301 456366 Information not available 05/26/2022 When Did You Quit Smoking? 6-10yearssincelastc igarette MIGRATION.0301 710924 Information not available 05/26/2022 Are There Any Guns Present In Your Home? No MIGRATION.0301 579283 Information not available 05/26/2022 Do You Use Insect Repellent Routinely? No MIGRATION.0301 179196 Information not available 05/26/2022 Where Do You Live? SingleLevelHouse MIGRATION.0301 884947 Information not available 05/26/2022 Do You Have A Medical Power Of Bolt Machine Operator? No MIGRATION.0301 324545 Information not available 05/26/2022 What Was The Date Of Your Most Recent Tobacco Screening? 03/07/2023 Information not available 03/07/2023 Do You Have Any Pets? No MIGRATION.0301 339669 Information not available 05/26/2022 What Is Your Relationship Status? MIGRATION.0301 200149 Information not available 05/26/2022 Do You Use Your Seat Belt Or Car Seat Routinely? Yes MIGRATION.0301 977387 Information not available 05/26/2022 Do You Have Smoke And Carbon Monoxide Detectors In Your Home? Yes MIGRATION.0301 192743 Information not available 05/26/2022 At What Age Did You Start Smoking Tobacco? 16 MIGRATION.0301 278390 Information not available 05/26/2022 Are You Passively Exposed To Smoke? No MIGRATION.0301 048585 Information not available 05/26/2022 Are There Any Smokers In Your House? No MIGRATION.0301 208225 Information not available 05/26/2022 What Types Of Sporting Activities Do You Participate In? None MIGRATION.0301 754233 Information not available 05/26/2022 Do You Feel Stressed (tense, Restless, Nervous, Or Anxious, Or Unable To Sleep At Night)? RR40097-4 MIGRATION.0301 442094 Information not available 05/26/2022 Do You Use Any Illicit Or Recreational Drugs? No MIGRATION.0301 042062 Information not available 05/26/2022 Do You Use Sunscreen Routinely? No MIGRATION.0301 083237 Information not available 05/26/2022 Has Tobacco Cessation Counseling Been Provided? No MIGRATION.0301 162291 Information not available 05/26/2022 Have You Recently Traveled Abroad? No MIGRATION.0301 421206 Information not available 05/26/2022 Do You Have Any Dietary Restrictions? No MIGRATION.0301 960667 Information not available 05/26/2022 Do You Or Have You Ever Used Any Other Forms Of Tobacco Or Nicotine? No MIGRATION.0301 781609 Information not available 05/26/2022 Sex: Female Functional Status Question Answer Note LastModified by Narrative ion Details LastModified Time What is your exercise level? Moderate [id number] 6 Information not available 05/26/2022 Mental Status None recorded. Family History Relationship Description Onset Age of this Age Resolved Age Notes LastModified by Organization Details LastModified Time Mother Hypertensive disorder MIGRATION.862 [id number] Not available 05/26/2022 05:55:57 Mother Hyperlipidem ia MIGRATION.228 [id number] Not available 05/26/2022 05:55:57 Sister Hypertensive disorder MIGRATION.778 [id number] Not available 05/26/2022 05:55:57 Sister Malignant tumor of neck MIGRATION.660 7917546 Not available 05/26/2022 05:55:57 Sister Chronic obstructive pulmonary disease MIGRATION.457 0603704 Not available 05/26/2022 05:55:57 Brother Diabetes mellitus MIGRATION.286 [id number] Not available 05/26/2022 05:55:57 Medical History Condition [...] HAVE YOU BEEN HOSPITALIZED OR SE[facility] IN [facility] IN THE PAST YEAR ? Y [...] mcg/0.3 mL dose 2 completed Not Available [facility] 04/22/2023 12:02:17 Influenza, high-dose, quadrivalent, PF 2 completed Not Available [facility] 04/22/2023 12:02:17 Influenza, split virus, quadrivalent, preservative 0 completed Not Available [facility] 04/22/2023 12:02:17 Influenza, split virus, quadrivalent, preservative 9 completed Not Available [facility] 04/22/2023 12:02:17 influenza, unspecified formulation 7 completed Not Available [facility] 04/22/2023 12:02:17 COVID-19, mRNA, LNP-S, PF, 30 mcg/0.3 mL dose 1 completed Not Available [facility] 04/22/2023 12:02:17 COVID-19 vaccine, vector-nr, rS-Ad26, PF, 0.5 mL 1 completed Not Available [facility] 04/22/2023 12:02:17 influenza, unspecified formulation 5 completed Not Available [facility] 04/22/2023 12:02:17 Influenza, split virus, quadrivalent, PF 1 completed Not Available [facility] 04/22/2023 12:02:17 Past Encounters Encounter ID Performer Location Encounter Start Date Encounter Closed Date Diagnosis/Indication Diagnosis SNOMED-CT Code Diagnosis ICD10 Code Diagnosis Note [id number] [facility] [address] [address] 11/19/2020 00:00:00 11/19/2020 12:29:48 [id number] [facility] [address] [address] 12/10/2020 00:00:00 12/10/2020 12:17:27 [id number] [facility] Internal Med [address] [address] 01/30/2021 00:00:00 02/08/2021 22:11:25 [id number] [facility] [place] [address] [place] [address], [address] [address] 02/02/2021 00:00:00 02/02/2021 14:24:06 [id number] [facility] [place] [address] [facility], [address] [address] 02/10/2021 00:00:00 02/10/2021 12:54:52 [id number] [facility] [place] [address] [place] [address] 02/16/2021 00:00:00 02/16/2021 09:17:20 [id number] [facility] [place] [address], [address] [place] [address] 03/09/2021 00:00:00 03/09/2021 12:59:46 [id number] [facility] Internal Med [facility] [address] [place] [address], [facility] [address] [place] [address] 03/30/2021 00:00:00 03/30/2021 22:56:25 [id number] [facility] [place] [address], [address] [place] [address] 04/20/2021 00:00:00 04/20/2021 11:25:01 [id number] [facility] [place] [address], [facility] 4 [place] [address] 04/27/2021 00:00:00 04/27/2021 19:27:40 [id number] [facility] [place] [address], [facility] 4 [place] [address] 05/04/2021 00:00:00 05/04/2021 15:45:18 [id number] [facility] [place] [address], [facility] 4 [place] [address] 05/11/2021 00:00:00 05/12/2021 08:55:56 [id number] [facility] [place] [address], [facility] 4 [place] [address] 05/25/2021 00:00:00 05/25/2021 12:49:04 [id number] [facility] Pulmon[facility] gy [address] [place] [address] 06/11/2021 00:00:00 06/11/2021 14:54:15 [id number] [facility] Internal Med [facility] [address] [facility], [facility] 15 [place] [address] 06/29/2021 00:00:00 07/19/2021 16:09:18 [id number] [facility] [place] [address], [address] [place] [address] 07/20/2021 00:00:00 07/20/2021 22:07:42 [id number] [facility] Internal Med [facility] [address] [place], [place] [address]e., [facility] 15 [place] [address] 08/12/2021 00:00:00 08/12/2021 21:04:41 [id number] [facility] [address] [address] 10/26/2021 00:00:00 11/10/2021 22:20:42 [id number] [facility] [address] [address] 02/01/2022 00:00:00 02/01/2022 22:49:54 [id number] [facility] [address] [address] 04/09/2022 00:00:00 04/09/2022 15:41:24 [id number] [facility] [address] [address] 05/07/2022 00:00:00 05/16/2022 16:17:25 [id number] Agustin Flor MD [facility] [address] [place], [place] [address]., [address] [address] 05/31/2022 14:34:19 05/31/2022 15:41:31 Computed tomography result abnormal 579276390 R93.89 [id number] Jean Claude Lopez NP [facility] [place] [address] [place] [address] 07/02/2022 11:38:25 07/02/2022 12:42:22 Dysuria 72548049 R30.0 We discussed avoiding bladder irritants such as carbonated beverages, caffeine, spicy/ acidic foods, alcohol, and/ or tobacco products. Will send urine cytology due to irritative urinary symptoms and past heavy smoker. Flank pain 781800218 R10 .9 pain reproducib le with palpation. I suspect pain is nerve/musc uloskeleta l related. UA today is negative for blood. No history of stones. Will check renal ultrasound to rule in/ out urologic pathology. follow-up after renal ultrasound to discuss results. Increased frequency of urination 251786824 R35.0 Avoid bladder irritants. Limit fluids 2 hours prior to bedtime. If patient is unsuccessf ul with behavioral strategies may consider anticholin ergic/beta 3 agonist or PF PT. Urge incon tinence of urine 54975832 N39.41 [id number] Agustin Flor MD [facility] Internal Med [facility] [address] [facility] [address] [place] [address] 07/05/2022 14:31:37 07/05/2022 16:10:59 Dyspnea 410579606 R06.02 Computed t omography result abnormal 951388881 R93.89 Nausea and vomiting 1693 1999 R11.2 [id number] Jean Claude Lopez NP [facility] [address] [place] [place] [address] [place] [address] 07/19/2022 12:22:36 07/19/2022 13:07:12 Dysuria 49745097 R30.0 We discussed avoiding bladder irritants such as carbonated beverages, caffeine, spicy/ acidic foods, alcohol, and/ or tobacco products. Will send urine cytology due to irritative urinary symptoms and past heavy smoker. 07/19/2022 Improved. Flank pain 217553277 R10 .9 get CTU. Increased frequency of urination 530555437 R35.0 Avoid bladder irritants. Limit fluids 2 hours prior to bedtime. If patient is unsuccessf ul with behavioral strategies may consider anticholin ergic/beta 3 agonist or PF PT. Urge incon tinence of urine 97425646 N39.41 Hydroureter 81298663 N13 .4 Will check CTU for structural evaluation to assess cause of left hydrourete r. No contrast allergy. I will call with results and plan appropriat e follow-up. We discussed in the abscence of structural obstructio n will need to get lasix renogram for functional assessment . [id number] Agustin Flor MD 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 Internal Med [facility] [address] [place] [address] 1 11/30/2022 14:50:19 11/30/2022 15:37:56 Essential hypertension 70054311 I10 Type 2 alok betes mellitus 85616053 E11.9 Hyperlipidemia 80654615 E78.5 [id number] Agust[address] Flor MD [facility] Internal Med [facility] [address] [place] [address] 02/01/2023 14:49:39 02/01/2023 16:00:58 High grade B-cell lymphoma 323086583 C85.10 Essential hypertension 83782181 I10 Hyperlipidemia 93302005 E78.5 Type 2 alok betes mellitus 38979045 E11.9 [id number] [address] [facility] Internal Med [facility] [address] [place] [address] 03/07/2023 14:48:19 03/07/2023 16:10:53 Pre-surgery evaluation 860524942 Z01.818 Essential hypertension 08038054 I10 Type 2 alok betes mellitus without complication 720015128 E11.9 Health Concerns Section Related Observation LastModified by Organization Detai ls LastModified Time None Recorded Concern Status LastModified by Organization Details LastModified Time None Recorded Advance Directives Directive N: Payers Encounter Date Sequence Insurance Name Policy Number Policy Gregory Covered Member ID Gregory Member ID Guarantor Name 07/19/2022 1 [facility] (MEDICARE REPLACEMENT HMO) [id number] Paula Orellana [id number] Paula Orellana 07/19/2022 2 [place] [employer] Paula S Usrey [id number] Paula S Usrey 09/21/2022 1 [employer] [place] (MEDICARE [place]PLACEMENT HMO) [id number] Paula S Usrey [id number] Paula S Usrey 09/21/2022 2 [place] [employer] Paula S Usrey [id number] Paula S Usrey 11/30/2022 1 [employer] [place] (MEDICARE REPLACEMENT HMO) [id number] Paula S Usrey [id number] Paula S Usrey 11/30/2022 2 [place] [facility] Paula S Usrey [id number] Paula S Usrey 02/01/2023 1 [facility]) [id number] Paula S Usrey [id number] Paula S Usrey 02/01/2023 2 [place] [facility] Paula S Usrey [id number] Paula S Usrey 03/07/2023 1 [facility] (MEDICARE REPLACEMENT HMO) [id number] Paula S Usrey [id number] Paula S Usrey 03/07/2023 2 [place] [facility] Paula S Usrey [id number] Paula S Usrey Notes Date Note Type [...] Lopez NP [address], [place], [address], [email or web address] 07/19/2022 13:11:51 09/21/2022 text/html Hypertension no headache or dizziness. Gets hypoglycemic sometimes after her chemo GERD is been doing fine overall she seems to be stable she had 1 episode of hypoglycemia that necessitated an ER visit Agustin Flor MD [address], [place], [address], [employer] 09/21/2022 22:52:34 11/30/2022 text/html cancer. Chemo. Bilateral footdrop. Going through therapy. Blood sugars have been okay. Agustin Flor MD [address], [place], [address], [employer] 11/30/2022 22:37:02 02/01/2023 text/html And problems wit h her feetNeuropathy badSpecialist center to OrthoWill need foot care because of her diabetes as well Agustin Flor MD [address], [place], [address], [email or web address] 02/02/2023 21:21:32 03/07/2023 text/html He is to have mejia rgery on feetHypertension no chest pain or shortness of breath but she does not ambulateType 2 diabetes needs an A1c no polyphagia polydipsiaCAD with stent no chest painCOPD no problems breathing at this timeB-cell lymphoma treated at [facility] Agustin Flor MD [address], [place], [address], [employer] [facility] [employer] 03/28/2023 18:10:42 OBGyn Episode No OBEpisode recorded.
--- OUTSIDE RECORDS SUMMARY | 2024-06-28 22:16 | XMS_ITS | Encounter Summary ---
Author Organization [facility] Address [address] [place] [place] [address] Care Team Providers Care Hod Carrier Name Role Phone Agustin Flor MD Primary Care Provider [phone] Encounter Details Date Type Department Care Team (Latest Contact Info) Description 10/27/2022 12:18 PM CDT Hospital Encounter [address] [address] Claudia Plascencia MD [address] [place] [address] [place] [phone] [employer] Social History Tobacco Use Types [...] care, and heating? Not very hard 11/20/2022 [facility] - Occupational Stress [...] Info) Description 09/14/2024 12:40 PM CDT Appointment [facility] [address] [place] [address] Shreyas Phillips MD [address] [place] [address] documented as of this encounter Visit Diagnoses Not on filedocumented in this encounter Care Teams Hod Carrier Relationship Specialty Start Date End Date Agustin Flor MD [address] [place] [address] PCP - General General Medicine 06/28/22 documented as of this encounter
--- OUTSIDE RECORDS SUMMARY | 2024-06-28 22:16 | XMS_ITS ---
Author Organization [facility] Address [address] [place] [address] Care Team Providers Care Supervisor Underwriting Clerks Name Role Phone Agustin Flor MD Primary Care Provider [phone] Shreyas Phillips MD Unavailable Bebe HernandezC Unavailable [phone] Nanda Rausch RN Unavailable Unavailable Active Problems [...] III(Diffuse large B-cell lymphoma) - Signed by Shreays Phillips MD on 11/24/2022 Clinical stage from [...] (Truxima) RAPID infusionriTUXimab- abbs (Truxima) STANDARD infusionvinCRIStin g-KUREmzsbqxh-hmqb oside CIVI Therapy Complete Shreyas Phillips MD 6 of 6 cycles started THERAPY PLAN Plan Name Start Date Discontinue Date Treatment Medications Discontinue Reason Plan Provider Hematology plan 12/17/2022 04/26/2024 No medicatio ns scheduled. Therapy Complete Bebe Hernandez, PAKylahC ONC treatment plan 12/01/2022 12/03/2022 No medications scheduled. Therapy Complete Vicky Mendiola, CAIO-BEAUTY CONSULTANT Radiation Treatments * No radiation treatments are documented for this patient in [facility]. Treatments may have been administered in another [...]
--- OUTSIDE RECORDS SUMMARY | 2024-06-28 22:16 | XMS_ITS | CONTINUITY OF CARE DOCUMENT ---
Author Name yoselyn topete Address Unknown Organization [facility] Address [address] [place] [address] Phone [phone] Care Team Providers Care Reclamation Supervisor Name Role Phone Calvin HILL, Annie Pierce Unavailable SHIELA ELLISON MD Unavailable SHIELA ELLISON MD Unavailable [phone] PROBLEMS Condition Status Date Provider Notes S/P [...] Cee C O P D active Annie Simpsno MD Cardiovascular Condition Screening active Annie Simpson MD CVA active Annie Simpson MD Lymphoma s/p chemo active Annie Simpson MD Preop cardiovasc. examination active Micah Simpson MD Cardiology examination active Verah Bonarer i OUTREACH SPECIALIST Cardiac septal defects active Shelley marshall OUTREACH SPECIALIST Patent foramen ovale active Gallo Crowley Diffuse Non-Hodgkin's lympho ma (NHL) active Annie Simpson MD ENCOUNTERS Date Type Provider Location Encounter Diag nosis - In-person encounter Office Visit Annie Simpson MD [place] [facility] - In-person encounter Office Visit Gallo Diehl MD [facility] Office - In-person encounter Office Visit Annie Simpson MD [place] [facility] Diffuse Non-Hodgkin's lymphoma (NHL) - In-person encounter Office Visit Gallo Diehl MD [facility] Office Patent foramen ovale - In-person encounter Office Visit Annie Simpson MD [facility] Cardiac septal defects - In-person encounter Office Visit Annie Simpson MD [facility] Cardiology examination - In-person encounter Office Visit Annie Simpson MD [facility] Preop cardiovasc. examination - In-person encounter Office Visit Annie Simpson MD [facility] CVALymphoma s/p chemo - In-person encounter Office Visit Annie Simpson MD [facility] - In-person encounter Office Visit Annie Simpson MD [facility] - In-person encounter Office Visit Annie Simpson MD [facility] Cardiovascular Condition Screening - In-person encounter Office Visit Annie Simpson MD [facility] - In-person encounter Office Visit Annie Simpson MD [facility] - In-person encounter Office Visit Annie Simpson MD [facility] Other symptoms involving cardiovascular systemSnoringEKG - In-person encounter Office Visit Annie Simpson MD [facility] C O P D - In-person encounter Office Visit Annie Simpson MD [facility] Chest pain-type to be determined - In-person encounter Office Visit Annie Simpson MD [facility] Aortic regurgitationAortic root dilatation - In-person encounter Office Visit Annie Simpson MD [facility] - In-person encounter Office Visit Annie Simpson MD [facility] Sleep apnea - In-person encounter Office Visit Annie Simpson MD [facility] Hypertension VITAL SIGNS Date Observation Value [...] Nanda Zamora pulse rate 96 /min Nanda Saunder [...] ricoLog blood pressure, systolic 136 mm[Hg] Amarilys [facility] weight E&M 138 [lb_av] Kimi Carlson blood pressure, cuff size regular Ta bitchrisit Carlson blood pressure, diastolic 78 mm[Hg] Ta bitha Carlson blood pressure, systolic 136 mm[Hg] Tab itha Carlson pulse rate 65 /min Kimi Carlson oxygen saturation, oximetry 98 % Kimi Carlson respiratory rate E&M 12 /min Kimi Carlson height E&M 65 [in_i] Kimi Carlson blood pressure, diastolic 94 mm[Hg] [facility] blood pressure, systolic 158 mm[Hg] Amarilys [facility] blood pressure, cuff size regular Ja [...] blood pressure, diastolic 66 mm[Hg] Ca therine Canaan blood pressure, systolic 131 mm[Hg] Cat herine Navarro oxygen saturation, oximetry 96 % Aletha Navarro respiratory rate E&M 14 /min Catheri ne Navarro pulse rate 64 /min Aletha Navarro weight E&M 169 [lb_av] Aletha Canaan blood pressure, cuff size regular Ca therine Canaan height E&M 65 [in_i] Aletha Canaan Body Mass Index (Ratio) 27.12 kg/m2 Christiano [...] MD blood pressure, diastolic 72 mm[Hg] [facility], [facility] 122 mm[Hg] Ton [facility] oxygen saturation, oximetry 96 % [facility] respiratory rate E&M 16 /min [facility] pulse rate 74 /min [facility] weight E&M 158 [lb_av] [facility] height E&M 65 [in_i] [facility] Body Mass Index (Ratio) 25.22 kg/m2 Guerda [...] Guerda Simpson MD pulse rate 75 /min [facility] temperature site temporal [facility] temperature E&M 98.2 [degF] [facility] respiratory rate E&M 16 /min [facility] oxygen saturation, oximetry 96 % [facility] weight E&M 153 [lb_av] [facility] blood pressure, diastolic 83 mm[Hg] To ha [facility] blood pressure, systolic 129 mm[Hg] Ton [facility] blood pressure, resting Yes [facility] height E&M 65 [in_i] [facility] Body Mass Index (Ratio) 23.13 [...] Estab. 5 platelet count 177 X10E3/UL Link[facility] [phone]/02/2 5 red blood cell distribution width 13.4 [...] >39 5 triglyceride, serum, random 83 mg/dL [facility] 0-149 5 cholesterol, serum 127 mg/dL Link[facility] [phone]/02/2 5 calcium, serum 10.2 mg/dL [employer] 8.7-10.3 5 carbon dioxide, venous blood 27 mmol/L [employer] 20-29 5 chloride, serum 103 mmol/L [employer] 96-106 5 potassium, serum 4.5 mmol/L [employer] 3.5-5.2 5 sodium, serum 143 mmol/L [employer] [phone]/02/2 5 urea nitrogen/creatinin e ratio, serum 19 [...] 0.57-1.00 5 urea nitrogen, blood 19 mg/dL LinkLog - 5 blood glucose, random 88 mg/dL [facility]99 HISTORY OF MEDICATION USE Medication Status Instructions Dates Provider Indications Com ments losartan 50 mg tablet active Take 1 tab let by mouth once a day . If BP runs low (<150) OK to split pill in half and take only 25mg Annie Simpson MD Eliquis 5 mg tablet [...] antibiotic 07/06 - 11/01 Maine Fulton NP [place]nard Ellipta 100-62.5-25 mcg blister with device active [...] completed ONE TAB. DAILY - 12/02 Forest Oliver INSULIN completed as directed - 11/01 [...] smoking, year quit 2014 Shelley Askew ndall OUTREACH SPECIALIST number of years as a smoker 35 a Shelley Beach OUTREACH SPECIALIST cigarette use yes Shelley Barriosll OUTREACH SPECIALIST smoking status Former smoker Shelley Barrios ll OUTREACH SPECIALIST smoking, year quit 2014 Maine Hull areri OUTREACH SPECIALIST number of years as a smoker 35 a [place] Barretoreri OUTREACH SPECIALIST cigarette use yes [place] Barretoreri OUTREACH SPECIALIST smoking status Former smoker [place] Allen ri OUTREACH SPECIALIST smoking, year quit 2014 Terrie Will iams number of years as a smoker 35 a [place] Lin cigarette use yes Terrie Riley smoking status Former smoker Terrie Zeeshan s social history E&M S moking History: [place] louis is a former smoker. Annie Simpson MD social history reviewed E&M revi ewed - no changes required Annie Simpson MD smoking, year quit 2014 Nanda Rodrigo is number of years as a smoker 35 a Nanda Delaney cigarette use yes Nanda Delaney smoking status Former smoker Nanda Rhett social history E&M S moking History: [place] louis is a former smoker. Annie Simpson MD social history reviewed E&M revi ewed - no changes required Annie Simpson MD smoking, year quit 2014 Elizabeth powell number of years as a smoker 35 a Elizabeth Galdamez cigarette use yes Elizabeth gomez smoking status Former smoker Elizabeth colladoelder smoking, year quit 2014 Odalis Mcguire number [...] a Elizabeth Darlingjudyer cigarette use yes Elizabeth Francoheaven gomez smoking status Former smoker Elizabeth Franco heavenelder smoking status Former smoker Frandy blackmon social history E&M S moking History: [place] louis is a former smoker. Frandy Cee social history reviewed E&M revi ewed - no changes required Frandy Cee smoking, year quit 2014 Forest Oliver number of years as a smoker 35 a Forest Matthewenson cigarette use yes Forest talbot social history E&M S moking History: [...] as a smoker 35 a Forest Oliver smoking, year quit 2014 Forest Oliver cigarette use yes Forest talbot smoking status Former smoker Forest Lozano FAMILY HISTORY Family Member Condition Mother Family History of Di abetes: INSURANCE PROVIDERS Payer name Policy type / Coverage type [place] red republican ID [id number] (PPO C-SNP) Commercial insurance [employer] [id number] HEALTHCARE AND FAMILY SERVICES Medicaid 0 [id number] ADVANCE DIRECTIVES Name Date DISCUSSED - NO DECISION MADE TREATMENT PLAN Date Name Performer [id number],C, E cho 05/2021 C ONCLUSIONS: 1 . [...] a ortic valve regurgitation. Annie Simpson MD [id number],S,N eeds CT done, stress was negative. May need mamogram Annie Simpson MD [id number],C, N o YAMIL Annie Simpson MD [id number],C, H er updated medication list for this problem includes: Enalapril Maleate 5 Mg Tablet (Enalapril maleate) ..... Take 1 tablet by mouth twice daily Amlodipine 10 Mg Tablet (Amlodipine) ..... Take 1 tablet by mouth once a day BP today: 153/79 P rior BP: 120/87 (01/29/2022) Annie Simpson MD [id number],C, E cho 06/01/21 CONCLUSIONS: 1 . Technically [...] No ischemia, hyperdynamic EF Annie Simpson MD [id number],C, C heck echo C T [facility] August 01, 2019 T he ascending thoracic aorta measures 3.[address] 10/28/2019 [facility] prominent lymph nodes about t he esophagus. The heart is not enlarged. No thoracic aortic a neurysm or dissection. The left vertebral artery arises directly f rom the aortic arch. There January 29, [address] to evaluate aorta. CT was denied. WIll reorder Annie Simpson MD [id number],C, N o YAMIL Annie Simpson MD [id number],C, B P today: 120/87 P rior BP: [...] by mouth twice daily Annie Simpson MD [id number],C, C heck echo C T [facility] August 01, 2019 T he ascending thoracic aorta measures 3.[address] 10/28/2019 [facility] prominent lymph nodes about t he esophagus. The heart is not enlarged. No thoracic aortic a neurysm or dissection. The left vertebral artery arises directly f rom the aortic arch. There January 29, [address] to evaluate aorta. Annie Simpson MD [id number],C, E cho 05/2021 C ONCLUSIONS: 1 . [...] a ortic valve regurgitation. Annie Simpson MD [id number],C, E cho 06/01/21 CONCLUSIONS: 1 . Technically [...] C heck nuclear stress. Annie Simpson MD [id number],C, S tarted on Nebulizer for COPD / emphysema. Has noted improvement. No PFTs. April 24, 2021 M ay be related to the fact that she is off nebulizer is why she has CP recommended her to resume. January 29, 2022 L ots of coughing due to COPD, probably chest wall related. Annie Simpson MD [id number],C,E cho 06/01/21 CONCLUSIONS: 1 . Technically difficult [...] a ortic valve regurgitation. Annie Simpson MD [id number],C,S uspect COPD issue vs GERD. She has [...] medical management is recommended. Annie Simpson MD [id number],C, H er updated medication list for this [...] rior BP: 111/66 (04/24/2021) Annie Simpson MD [id number],C,E cho 05/2021 C ONCLUSIONS: 1 . Technically [...] a ortic valve regurgitation. Annie Simpson MD [id number],C, N o YAMIL Annie Simpson MD [id number],C, N o YAMIL Annie Simpson MD [id number],C, B P today: 111/66 P rior BP: [...] ..... Take 1 tablet twice daily Annie Sipmson MD [id number],C,C heck echo C T [facility] August 01, 2019 T he ascending thoracic aorta measures 3.[address] 10/28/2019 [facility] prominent lymph nodes about t he esophagus. The heart is not enlarged. No thoracic aortic a neurysm or dissection. The left vertebral artery arises directly f rom the aortic arch. There Annie Simpson MD [id number],S,A ortic valve leaflets appear structurally normal. Velocities, as well as gradients across the aortic valve are normal. Mild to m oderate aortic valve regurgitation. Check echo Annie Simpson MD [id number],C, S tarted on Nebulizer for COPD / emphysema. Has noted improvement. No PFTs. April 24, 2021 M ay be related to the fact that she is off nebulizer is why she has CP recommended her to resume. Annie Simpson MD [id number],C,S uspect COPD issue prior cath 2017 I [...] PFO closure, will get it scheduled at [facility] June 18, 2024 H AD PFO CLOSURE [...] PFO closure, will get it scheduled at [facility] Gallo Diehl MD Cardiology:SChedule for PFO closure at [facility] P t will be admitted for 1 night for observation Gallo Diehl MD Cardiology:SChedule for PFO closure at [facility] P t will be admitted for 1 [...] Chris Garcia Cardiology:pending a PFO closure with [facility] Joon gonzalez from 02-09-2024 a ssessment of PFO closure. [...] PFO closure, will get it scheduled at [facility]. This visit has been a part [...] PFO closure, will get it scheduled at [facility] Annie Simpson MD Cardiology:pending a PFO [...] PFO closure, will get it scheduled at [facility]. Annie Simpson MD Cardiology Gallo Diehl [...] thoracic aorta measures 3.[address] 10/28/2019 [facility] prominent lymph nodes about t he esophagus. The heart is not enlarged. No thoracic aortic a neurysm or dissection. The left vertebral artery arises directly f rom the aortic arch. There January 29, [address] to evaluate aorta. CT was denied. WIll reorder Shelley Beach NP Cardiology:OK TO LONNIE DIEHL TO EVAL FOR PFO CLOSURE Shelley Beach ALANA Cardiology: E cho 06/01/21 CONCLUSIONS: 1 . [...] right to left shunting. There was a wuxxv-fn-xlqc s boothe at rest by contrast study [...] condition(s) listed above for the patient. R EYALIEWED USE OF ELIQUIS FOR HX OF CVA [...] right to left shunting. There was a hccff-ur-vpre s boothe at rest by contrast study [...] right to left shunting. There was a ahkni-sp-tkco s boothe at rest by contrast study [...] right to left shunting. There was a wvzcw-ko-fytq s boothe at rest by contrast study [...] of hypotension, was taken off meds at [facility] Annie Simpson MD Cardiology:Summary & Diagnosis F [...] thoracic aorta measures 3.[address] 10/28/2019 [facility] prominent lymph nodes about t [...] twice daily Annie Simpson MD Cardiology: Danyell rasmussen echo C T [facility] August 01, 2019 T he ascending thoracic aorta measures 3.[address] 10/28/2019 [facility] prominent lymph nodes about t [...] a ortic valve regurgitation. January 29, 2022 Danyell rasmussen nuclear stress. Annie Simpson MD Cardiology: S [...] thoracic aorta measures 3.[address] 10/28/2019 [facility] prominent lymph nodes about t [...] Annie Simpson MD Cardiology Follow up :CT [facility] August 01, 2019 T he ascending thoracic aorta measures 3.[address] 10/28/2019 [facility] prominent lymph nodes about t [...] up : P revious echo done in [place], current echo seems somewhat progressed. Echo 06/27/2019 [...] [place] Telehealth:No YAMIL Cameron [place] Telehealth: E elizabeth 06/27/2019 CONCLUSIONS: 1 . There is septal [...] [place] Telehealth: P revious echo done in [place], current echo seems somewhat progressed. Echo 06/27/2019 [...] regurgitation. Frandy Cee Cardiology:Previous echo done in [place], current echo seems somewhat progressed. Echo 06/27/2019 [...] minute walk test Ambulatory Oximetry DLCO - 20610 FRC - 11117 FVC - 94018 HISTORY OF PROCEDURES Procedure Date Procedure Name [...] completed EKG Annie Simpson MD completed SNOMED-CT: [id number] Current Medications Documented Annie Simpson MD completed
--- OUTSIDE RECORDS SUMMARY | 2024-06-28 22:16 | XMS_ITS | Clinical Summary ---
Author Organization [facility] Address [address] [place] [address] Care Team Providers Care Customs Investigator Name Role Phone Agustin Flor MD Primary Care Provider [phone] Shreyas Phillips MD Unavailable Bebe HernandezC Unavailable [phone] Nanda Rausch RN Unavailable Unavailable Source Comments [facility],non-owned Affiliates and Associated Physician Practices is amultiple site organization consisting of ambulatory clinics and hospital sitesin [place], [place], [place] and [place]. This disclosure is being madepursuant to the Care Everywhere program and may not contain all information available regarding this patient. Last updated 17.[facility] [employer] Allergies Active Allergy Reactions Criticality Noted Date [...] diabetes mellitus with diabetic nephropathy, unspecified whether manager long term care insulin use (HCC) Use 1 Needle as [...] 40 MG tabletIndications:C oronary artery disease involving three affiliated heart without angina pectoris, unspecified vessel or [...] - 06/15/2024 11:59 PM CDT Hospital Encounter [facility] [address] [place] [address] Shreyas Phillips MD Discharge Disposition: Home or Self Care 06/15/2024 Travel 06/14/2024 Orders Only [facility] - Hematology/Oncology [address] [place] [phone] Shreyas Phillips MD 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 06/12/2024 Telephone [facility] [address] [place] [address] Emeli Forrester 05/28/2024 11:00 AM MOLD SPRAYER - 05/28/2024 11:59 PM MOLD SPRAYER Hospital Encounter [facility] CAT SCAN [address] [place] [address] Shreyas Phillips MD Discharge Disposition: Home or Self Care 05/28/2024 Travel 04/26/2024 6:01 AM MOLD SPRAYER - 04/26/2024 9:05 AM MOLD SPRAYER Hospital Encounter [facility] KATHERINE OP [address] [place] [address] Shreyas Phillips MD [facility] Discharge Disposition: Home or Self Care 04/26/2024 Travel from Last 3 Months Immunizations Name Administration Dates Next Due COVID PFIZER BIVALENT 12Y+ 30mcg/0.3ML 01/21/2022 Covid Pfizer primary monoval ent 12+ yr 0.3mL Purple cap 01/21/2022,12/28/2020 FLU VACCINE QUAD IIV4 SPLIT 0.25 ML IM 01/25/2020,01/17/2019 INFLUENZA [id number], HISTORIC VACCINE 01/21/2022 INFLUENZA VACCINE 12/26/2016,03/28/2014 INFLUENZA [...] care, and heating? Not very hard 11/20/2022 [facility] [place] of Occupat ional Health - Occupational Stress [...] Info) Description 09/14/2024 12:40 PM CDT Appointment [facility] [address] [place] [address] Shreyas Phillips MD [address] [place] [address] Health Maintenance Due Date Last [...] this topic Medical Devices Implanted Type Area Oxidation Operator Device Identifier Shelf Expiration Date Model / Serial / Lot Port Implinfn Powerport Clrvu Argd Kika Implanted:Qty: 1 on 07/15/2022 at [facility] Right: Chest [employer] 11/26/2023 [id number] / / [id number] Description:RIJ by Milena Spivey inton Procedures Procedure Name Priority Date/Time Associated Diagnosis Comments CBC W AUTO DIFFERENTIAL STAT 06/15/2024 11:57 AM CDT 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 COMPREHENSIVE METABOLIC PANEL STAT 06/15/2024 11:57 AM CDT 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 CHEST ABDOMEN PELVIS W CONT Routine 05/28/2024 11:38 AM MOLD SPRAYER History of non-Hodgkin's lymphoma CREATININE - POCT INTERFACED Routine 05/28/2024 11:26 AM MOLD SPRAYER IR CENTRAL LINE REMOVAL Routine 04/26/2024 8:32 AM MOLD SPRAYER B-cell lymphoma, unspecified B-cell lymphoma type, unspecified body region GLUCOSE - POINT OF CARE Routine 04/26/2024 6:51 AM MOLD SPRAYER PT-INR [facility] Routine 04/26/2024 6:47 AM MOLD SPRAYER Preop testing HEMOGLOBIN A1C Routine 02/03/2023 11:03 AM MOLD SPRAYER Bilateral foot pain HEPATITIS C RNA QUANTITATIVE STAT 07/16/2022 12:15 PM CDT Non-Hodgkin's lymphoma, unspecified body region, unspecified non-Hodgkin lymphoma type High risk for chemotherapy-induced infectious complication from Last 3 Months or Most Recently Relevant to Health Maintenance Results * (ABNORMAL) CBC WITH DIFFERENTIAL (06/15/2024 11:57 AM CDT) WBC 4.7 4.0 - 10.7 x10E9/L 06/15/2024 12:11 PM [facility] RBC Count 4.32 3.90 - 5.20 x10E12/L 06/15/2024 12:11 PM [facility] Hemoglobin 12.2 11.9 - 15.8 g/dL 06/15/2024 12:11 PM [facility] Hematocrit 37.8 34.8 - 46.1 % 06/15/2024 12:11 PM [facility] MCV 87.5 80.0 - 98.0 fL 06/15/2024 12:11 PM [facility] MCH 28.2 26.7 - 33.6 pg 06/15/2024 12:11 PM [facility] MCHC 32.3 31.7 - 36.3 g/dL 06/15/2024 12:11 PM [facility] RDW-CV 14.3 11.3 - 14.8 % 06/15/2024 12:11 PM [facility] Platelet Count 209 150 - 420 x10E9/L 06/15/2024 12:11 PM [facility] MPV 8.9 7.8 - 11.4 fL 06/15/2024 12:11 PM [facility] Preliminary Absolute Neutrophil 3.20 1.60 - 7.50 x10E9/L 06/15/2024 12:11 PM [facility] Neutrophil % 67.6 41.0 - 74.0 % 06/15/2024 12:11 PM [facility] Lymphocyte % 20.0 17.0 - 47.0 % 06/15/2024 12:11 PM [facility] Monocyte % 8.9 3.0 - 11.0 % 06/15/2024 12:11 PM [facility] Eosinophil % 2.3 0.0 - 7.0 % 06/15/2024 12:11 PM [facility] Basophil % 0.6 0.0 - 1.6 % 06/15/2024 12:11 PM [facility] Immature Granulocytes % 0.6 0.0 - 1.0 % 06/15/2024 12:11 PM [facility] Neutrophil Absolute 3.20 1.60 - 7.50 x10E9/L 06/15/2024 12:11 PM [facility] Lymphocyte Absolute 0.95(L) 1.00 - 4.40 x10E9/L 06/15/2024 12:11 PM [facility] Monocyte Absolute 0.42 0.15 - 1.00 x10E9/L 06/15/2024 12:11 PM [facility] Eosinophil Absolute 0.11 0.00 - 0.60 x10E9/L 06/15/2024 12:11 PM [facility] Basophil Absolute 0.03 0.00 - 0.13 x10E9/L 06/15/2024 12:11 PM [facility] Blood BLOOD SPECIMEN / Unknown Venipuncture / Unknown 06/15/2024 11:57 AM CDT 06/15/2024 12:05 PM CDT Shreyas Phillips MD LAB - HEMATOLOGY ORD ERABLES [facility] [address] [place] [address], [facility] [phone] * (ABNORMAL) COMPREHENSIVE METABOLIC PANEL (06/15/2024 11:57 AM CDT) BUN 16 7 - 26 mg/dL 06/15/2024 12:30 PM [facility] Creatinine 0.86 0.56 - 0.96 mg/dL 06/15/2024 12:30 PM [facility] Sodium 143 136 - 145 mmol/L 06/15/2024 12:30 PM [facility] Potassium 4.7(H) 3.5 - 4.5 mmol/L 06/15/2024 12:30 PM [facility] Chloride 107 98 - 107 mmol/L 06/15/2024 12:30 PM [facility] CO2 28 22 - 29 mmol/L 06/15/2024 12:30 PM [facility] Glucose 73 70 - 99 mg/dL 06/15/2024 12:30 PM [facility] Calcium 10.6(H) 8.4 - 10.2 mg/dL 06/15/2024 12:30 PM [facility] Protein Total 6.9 6.0 - 8.3 g/dL 06/15/2024 12:30 PM [facility] Albumin 4.6 3.4 - 5.0 g/dL 06/15/2024 12:30 PM [facility] Bilirubin Total 0.4 0.2 - 1.2 mg/dL 06/15/2024 12:30 PM [facility] Alkaline Phosphatase 72 40 - 150 U/L 06/15/2024 12:30 PM [facility] ALT 29 5 - 55 U/L 06/15/2024 12:30 PM [facility] AST 19 5 - 34 U/L 06/15/2024 12:30 PM [facility] Anion Gap 8 6 - 16 06/15/2024 12:30 PM [facility] BUN/Creatinine Ratio 19 7 - 23 06/15/2024 12:30 PM [facility] Osmolality Calculated 296(H) 275 - 295 mOsm/kg 06/15/2024 12:30 PM [facility] Albumin/Globulin Ratio 2.0 1.1 - 2.3 06/15/2024 12:30 PM [facility] eGFR by CKD-EPI 74(L) >=90 mL/min/1.7 3 m2 06/15/2024 12:30 PM [facility] Blood BLOOD SPECIMEN / Unknown Venipuncture / Unknown 06/15/2024 11:57 AM CDT 06/15/2024 12:05 PM [facility] Shreyas Phillips MD LAB - CHEMISTRY SILVINO LENZ [facility] Organization Address City/State/ZIP Co de Phone Number [address] [address], [facility] [phone] * CT Chest Abdomen Pelvis W Cont (05/28/2024 11:38 AM MOLD SPRAYER) Anatomical Region Laterality Modality Chest, Abdomen, Pelvis Computed Tomography 05/28/2024 1:52 PM MOLD SPRAYER Impressions 05/28/2024 4:28 PM MOLD SPRAYER Impression: 1.No evidence of lymphadenopathy in the chest, abdomen, and pelvis. 2.Redemonstrated are multiple hepatic and renal cysts which may be suggestive of polycystic kidney-liver disease. Report was dictated by Jose Lagos MD, (Integrated VIR resident). > Dictated by Jose Lagos MD (Plow Shaker) 05/28/2024 1:52 PM I, Nakul Bridges MD have personally reviewed and interpreted this examination/study. > Interpreting Provider: Nakul Bridges MD on 05/28/2024 4:28 PM Narrative 05/28/2024 4:28 PM MOLD SPRAYER PROCEDURE: CT CHEST ABDOMEN PELVIS W CONT, DATE/TIME OF EXAM: 05/28/2024 11:39 AM, LOCATION [facility] INDICATION: Z85.72: History of non-Hodgkin's [...] DATE/TIME OF EXAM: 05/28/2024 11:39 AM, LOCATION [facility] INDICATION: Z85.72: History of non-Hodgkin's [...] resident). > Dictated by Jose Lagos MD (Plow Shaker) 05/28/2024 1:52 PM I, Nakul Bridges MD have personally reviewed and interpreted this examination/study. > Interpreting Provider: Nakul Bridges MD on 05/28/2024 4:28 PM Shreyas Phillips MD CT ORDERABLES * CREATININE - POCT INTERFACED (05/28/2024 11:26 AM MOLD SPRAYER) Creatinine POCT 0.72 0.30 - 1.30 mg/dL 05/28/2024 11:30 AM MOLD SPRAYER [facility] eGFR >90 >=90 mL/min/1.7 3 m2 05/28/2024 11:30 AM MOLD SPRAYER [facility] Blood BLOOD SPECIMEN / Unknown 05/28/2024 11:26 AM MOLD SPRAYER 05/28/2024 11:30 AM MOLD SPRAYER Shreyas Phillips MD LAB - POINT OF CARE ORDERABLES [id number] [place] [address], [facility] [phone] * IR Central Line Removal (04/26/2024 8:32 AM MOLD SPRAYER) Anatomical Region Laterality Modality X-Ray Angiograph y 04/26/2024 3:21 PM MOLD SPRAYER Impressions 05/07/2024 8:15 AM MOLD SPRAYER Impression: Successful removal of a right internal jugular approach since lumen 8 Gambian chest port under fluoroscopic guidance. Note: Keep the dressing clean and dry for 5 days. I, BIJAL Elizalde, was present and performed/supervised the entire procedure. > Dictated by Aguila Pritchett (Plow Shaker) 04/26/2024 3:21 PM I, Valeria Hernandez MD have personally reviewed and interpreted this examination/study. > Interpreting Provider: Valeria Hernandez MD on 05/07/2024 8:15 AM Narrative 05/07/2024 8:15 AM MOLD SPRAYER PROCEDURE: IR CENTRAL LINE REMOVAL DATE/TIME OF EXAM: 04/26/2024 8:33 AM CLINICAL INFORMATION: History: This is a 64-year-old -[place] female with a history of lymphoma who previously had a chest port placed for chemotherapy administration. She has completed chemotherapy and remains remission and therefore presents for chest port removal Operators: BIJAL Cartagena Anesthesia: 1.Local anesthesia - 10 mL of 1% Lidocaine 2.Intravenous Anxiolysis- Versed 1 mg and Fentanyl 50 mcg Procedure: Removal of a right internal jugular approach 1 lumen 8 Gambian chest port under fluoroscopic guidance. Fluoroscopic time: 0.1 minutes Procedure details: The procedure, risks, and possible complications were explained to the patient in detail, and informed consent was obtained. The patient was placed supine on the angiography table. The right neck and upper chest were prepped and draped in the usual sterile manner. A dye machine tender radiograph of the chest was obtained, which [...] CLINICAL INFORMATION: History: This is a 64-year-old -[place] female with a history of lymphoma who previously had a chest port placed for chemotherapy administration. She has completed chemotherapy andremains remission and therefore presents for chest port removal Operators: BIJAL Cartagena Anesthesia: 1.Local anesthesia - 10 mL of 1% Lidocaine 2.Intravenous Anxiolysis- Versed 1 mg and Fentanyl 50 mcg Procedure: Removal of a right internal jugular approach 1 lumen 8 Gambian chest port under fluoroscopic guidance. Fluoroscopic time: 0.1 minutes Procedure details: The procedure, risks, and possible complications were explained to the patient in detail, and informed consent was obtained. The patient was placed supine on the angiography table. The right neck and upper chestwere prepped and draped in the usual sterile manner. A dye machine tender radiograph ofthe chest was obtained, which showed [...] the procedure well [facility]. There were no immediate complicationsassociated with the procedure. Impression: Successful removal of a right internal jugular approachsince lumen 8 Gambian chest port under fluoroscopic guidance. Note: Keep the dressing clean and dry for 5 days. IDr. Francisca PA, was present and performed/supervised the entire procedure. > Dictated by Aguila Pritchett (Plow Shaker) 04/26/2024 3:21 PM IValeria MD have personally reviewed and interpreted this examination/study. > Interpreting Provider: Valeria Hernandez MD on 05/07/2024 8:15 AM Shreyas Phillips MD IR ORDERABLES * GLUCOSE - POINT OF CARE (04/26/2024 6:51 AM MOLD SPRAYER) Glucose WB/POC 92 70 - 99 mg/dL 04/26/2024 6:52 AM [facility] Specimen Type Venous 04/26/2024 6:52 AM [facility] Blood BLOOD SPECIMEN / Unknown 04/26/2024 6:51 AM MOLD SPRAYER 04/26/2024 6:52 AM MOLD SPRAYER Shreyas Phillips MD LAB - POINT OF CARE ORDERABLES Performing Organization Address [facility]/ZIP Co de Phone Number [facility] [address] [place] [address], [facility] [phone] * PT-INR [facility] (04/26/2024 6:47 AM MOLD SPRAYER) PT 13.2 12.1 - 14.8 Seconds 04/26/2024 [...] Unknown Venipuncture / Unknown 04/26/2024 6:47 AM MOLD SPRAYER 04/26/2024 6:51 AM MOLD SPRAYER Tyson Sandhu MD LAB - COAGULATION OR DERABLES Performing Organization Address City/[facility]/ZIP Co de Phone Number [facility] [address] [place] [address], [facility] [phone] * HEMOGLOBIN A1C (02/03/2023 11:03 AM MOLD SPRAYER) [facility] Hemoglobin A1c 5.4 <=5.6 % 02/03/2023 3:39 PM [facility] Estimated Average Glucose 108 mg/dL 02/03/2023 3:39 PM [facility] Comment: HbA1c Interpretation: Normal : < 5.7% Pre-diabetes: 5.7-6.4% Diabetes: Equal to or greater than 6.5% Test results diagnostic of diabetes should be repeated for confirmation. Treatment target values recommended by ADA and other clinical organizations should be used to evaluate metabolic control in patients. Reference: [place] [employer] Association, Standards of Care in Diabetes -2020 In patients 70 years and older consider HbA1c target range of 7.0-7.5% (Reference: Vishal Davis et al. JAMDA. 2012) The Sebia assay for the measurement of HbA1c is a National Glycohemoglobin Standardization Program (NGSP) certified method. Blood BLOOD SPECIMEN / Unknown Lab Venipuncture / Unknown 02/03/2023 11:03 AM MOLD SPRAYER 02/03/2023 11:29 AM MOLD SPRAYER Mohini Sky MD LAB - CHEMISTRY SILVINO LENZ [facility] Organization Address City/State/ZIP Co de Phone Number [facility] [address] [place] [address], [facility] [phone] * HEPATITIS C RNA QUANTITATIVE (07/16/2022 12:15 PM CDT) [facility] Hepatitis C RNA PCR, Interp Not detected Not detected 07/19/2022 1:08 PM CDT [facility] Blood BLOOD SPECIMEN / Unknown Lab Venipuncture / Unknown 07/16/2022 12:15 PM CDT 07/16/2022 12:25 PM CDT Narrative [facility] - 07/19/2022 1:08 PM CDT The Hepatitis C viral (HCV) RNA analysis utilized a serum sample, real-time reverse scrap picker PCR, and is reported as Not [...] the isolation of HCV RNA with reverse scrap picker of genomic HCV RNA followed by real-time PCR in the presence of an unrelated RNA internal control. The internal control ensures that RNA is isolated, and that no general significant inhibitors of the RT-PCR process are present. The analysis was performed using a U.S. FDA approved test methodology. Shreyas Phillips MD LAB - CHEMISTRY SILVINO LENZ [facility] Organization Address City/State/ZIP Co de Phone Number [facility] [address] [place] [phone] from Last 3 Months or Most Recently [...] 3:45 PM 10/19/2022 5:53 PM Care Teams Customs Investigator Relationship Specialty Start Date End Date Agustin Flor MD [address] [place] [address] PCP - General General Medicine 06/28/22 [place] [address] [place] [phone] Physician Hematology and Oncology 03/23/23 Bebe Hernandez, PA-C [address] [place] [address] Physician Pharmaceutical Representative Physician Pharmaceutical Representative 03/23/23 Nanda Rausch, RN Registered Nurse 03/23/23
--- OUTSIDE RECORDS SUMMARY | 2024-06-28 22:16 | XMS_ITS | Clinical Summary ---
Author Organization [facility] Address [address] [place] [address] Care Team Providers Care Homeworker Name Role Phone Agustin Flor Primary Care Provider Allergies Active Allergy Reactions Criticality Noted Date [...] 8:27 PM 11/12/2022 4:08 PM Care Teams Homeworker Relationship Specialty Start Date End Date Agustin Flor [address] [phone] PCP - General 10/28/22
--- OUTSIDE RECORDS SUMMARY | 2024-06-28 22:16 | XMS_ITS | Encounter Summary ---
Author Organization [facility] Address [address] [facility] [place] [address] Care Team Providers Care Professional Athlete Name Role Phone Agustin Flor MD Primary Care Provider [phone] Mabel Del Real RN Unavailable Unavailable Shreyas Phillips MD Unavailable Bebe Hernandez PA-C Unavailable [phone] Nanda Rausch RN Unavailable Unavailable Encounter Details Date Type Department Care Team (Late Contact Info) Description 06/10/2022 Lab Requisition [facility] Care Pathology Lab [address] [place] [address] Chris Julian MD [address] [address] Illness, unspecified Social History Tobacco [...] Info) Description 09/14/2024 12:40 PM CDT Appointment [facility] [address] [place] [address] Shreyas Phillips MD [address] [place] [phone] (work) documented as of this encounter Procedures Procedure Name Priority Date/Time Associated Diagnosis Comments PATHOLOGY TISSUE Routine 06/08/2022 11:1 9 AM CDT Illness, unspecified documented in this encounter Results * PATHOLOGY TISSUE (06/08/2022 11:19 AM CDT) Case Report Surgical Pathology Report Case: [id number] Authorizing Provider: Chris Julian MD Collected: 06/08/2022 11:19 AM Ordering Location: [facility] Pathology Lab Received: 06/10/2022 11:21 AM Pathologist: Reshma Singh MD Specimen: Lymph Node Biopsy, CT Biopsy Left Lymph Node 06/11/2022 10:47 AM CDT [facility] PATHOLOGY LAB Final Diagnosis Lymph node, left paracolic, needle core biopsy: - Limited specimen with involvement by a QV17-vusrlhjy mature B-cell lymphoma - See description and comment 06/11/2022 10:47 AM CDT [facility] Microscopic Description and Comment Sections [...] estimated at 50%. Flow cytometry ([facility], [address] [place], [place] [address]) is reported to show an atypical IR10-enikrokj population that lacks surface immunoglobulin light chain expression. In summary, the left paracolic lymph node specimen is involved by a OG82-rbmbkalk mature B-cell lymphoma. Given the limited nature [...] correlation is advised. 06/11/2022 10:[address] [facility] Clinical History Retroperitoneal lymphadenopathy. 06/11/2022 10:[address] [facility] Materials Received Received for initial diagnosis are two slides and one block (A1) labeled [id number] along with a copy of the outside pathology report. The materials originate from [facility]. All original materials are returned to the referring institution, along with a copy of our final report. 06/11/2022 10:[address] [facility] Disclaimer The performance characteristics of all immunohistochemical and indirect immunofluorescence stains (if any) cited in this report were determined by the Histopathology Laboratory of [facility]. Some of these tests were [...] attending (teaching) pathologist. 06/11/2022 10:47 AM CDT [facility] Embedded Images 06/11/2022 10:47 AM T [facility] Pathology/Cytolo gy BIOPSY OF LYMPH NODE / Unknown 06/08/2022 11:19 AM CDT 06/10/2022 11:21 AM CDT Chris Julian MD LAB - PATHOLOGY/CYTO LOGY ORDERABLES [facility] [address] [place] [address], [facility] [phone] documented in this encounter Visit Diagnoses Diagnosis Illness, unspecified documented in this encounter Care Teams Professional Athlete Relationship Specialty Start Date End Date Agustin Flor MD [address] [place] [address] PCP - General General Medicine 06/28/22 Mabel Del Real RN Registered Nurse Orthopedic Surgery 02/28/23 03/27/24 [place] [address] [place] [phone] Physician Hematology and Oncology 03/23/23 Bebe Hernandez, PA-C [address] [place] [address] Physician Abstracter Physician Abstracter 03/23/23 Nanda Rausch, RN Registered Nurse 03/23/23 documented as of this encounter
--- OUTSIDE RECORDS SUMMARY | 2024-06-28 22:17 | XMS_ITS | Clinical Summary ---
Author Organization [facility] Medical Office Building [address] Address [address] [place] [address] Care Team Providers Care Horse Show Manager Name Role Phone Agustin Flor MD Primary Care Provider + [phone] Annie Simpson MD Unavailable [phone] Allergies Active Allergy Reactions Criticality Noted Date [...] nightly 11/13/19 23 Active FreeStyle Ron 3 [place] misc 2 (two) times a day 10/03/19 [...] 02/22/2024 Assessment & Plan (02/22/2024 9:06 AM ESTATE ADMINISTRATOR): She has followed with cardiology and has now seen a surgeon with plans for repair in the next several months We will reassess her dyspnea after her recovery from this procedure Centrilobular emphysema 02/22/2024 Assessment & Plan (02/22/2024 9:05 AM ESTATE ADMINISTRATOR): Continue Trelegy Ellipta 100 daily Albuterol as [...] 02/21 Assessment & Plan (02/22/2024 9:06 AM ESTATE ADMINISTRATOR): Last CT chest in November of 2023 [...] Department Care Team Description 05/29/2024 8:00 AM ESTATE ADMINISTRATOR - 05/29/2024 10:00 AM ESTATE ADMINISTRATOR Surgery [facility] Cardiac Catheterization Lab [address] [place] [address] Gallo Diehl MD ATRIAL SEPTAL DEFECT (ASD), PATENT FORAMEN OVALE (PFO), FENESTRATION CLOSURE [id number] 05/29/2024 7:59 AM ESTATE ADMINISTRATOR - 05/29/2024 11:59 PM ESTATE ADMINISTRATOR Hospital Encounter [facility] Cardiac Catheterization Lab [address] [place] [address] Discharge Disposition: Discharge to home or self care 05/29/2024 7:57 AM ESTATE ADMINISTRATOR Anesthesia Event [facility] Cardiac Catheterization Lab [address] [place] [address] Chavez Chiu MD Eldin, Ali S., MD 05/29/2024 5:33 AM ESTATE ADMINISTRATOR - 05/30/2024 11:37 AM ESTATE ADMINISTRATOR Hospital Encounter [address] [address] Gallo Diehl MD PFO (patent foramen ovale) Discharge Disposition: Discharge to home or self care 05/25/2024 9:45 AM ESTATE ADMINISTRATOR Pre-Admission Testing [facility] Pre Anesthesia Testing [address] [place] [address] Pre-op testing (Primary Dx) 05/24/2024 1:09 PM ESTATE ADMINISTRATOR - 05/24/2024 11:59 PM ESTATE ADMINISTRATOR Hospital Encounter [facility] [id number] [place] [address] Right foot pain Discharge Disposition: Discharge to home or self care 05/24/2024 1:05 PM ESTATE ADMINISTRATOR - 05/24/2024 11:59 PM ESTATE ADMINISTRATOR Hospital Encounter [facility] [address] [place] [address] Left foot pain Discharge Disposition: Discharge to home or self care 05/24/2024 12:30 PM ESTATE ADMINISTRATOR Office Visit [facility] Orthopaedic Surgery [address] [place] [address] [address] [place] [address] Lakia Riddle MD Left foot pain (Primary Dx); Right foot pain; Acquired equinovarus deformity of left foot; Acquired equinovarus deformity of right foot 05/15/2024 Orders Only [facility] Cardiac Catheterization Lab [address] [place] [address] Gallo Diehl MD PFO (patent foramen ovale) (Primary Dx) from Last 3 Months Surgical History Surgery Date Site/Laterality Comments PORT PLACEMENT CHEST >5 YEARS 07/15/2022 N/A removed 03/2024 CARDIAC STENT PLACEMENT OTHER SURGICAL HISTORY 03/28/2023 - 03/27/2024 LOOP recorder placement HYSTERECTOMY EYE SURGERY Bilateral cataracts CARDIAC CATHETERIZATION 05/29/2024 N/A Procedure: ATRIAL SEPTAL DEFECT (ASD), PATENT FORAMEN OVALE (PFO), FENESTRATION CLOSURE [id number]; Surgeon: Gallo Diehl MD; 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 [facility]; Service: Cardiovascular; Laterality: N/A; Medical devices from [...] on file Legal Sex Female 9:14 PM ESTATE ADMINISTRATOR Gender Identity Not on file Sexual Orientation Not on file Obstetrics History Last Filed Vital Signs Vital Sign Reading Time Taken Comments Blood Pressure 118/62 05/30/2024 7:40 AM ESTATE ADMINISTRATOR Pulse 74 05/30/2024 9:02 AM ESTATE ADMINISTRATOR Temperature 37.4 C (99.4 F) 05/30/2024 7:40 AM ESTATE ADMINISTRATOR Respiratory Rate 18 05/30/2024 7:40 AM ESTATE ADMINISTRATOR Oxygen Saturation 95% 05/30/2024 7:40 AM ESTATE ADMINISTRATOR Inhaled Oxygen Concentration - - Weight 57.6 kg (126 lb 15.8 oz) 05/30/2024 5:45 AM ESTATE ADMINISTRATOR Height 162.6 cm (5' 4 ) 05/29/2024 6:49 AM ESTATE ADMINISTRATOR Body Mass Index 21.8 05/29/2024 6:49 AM ESTATE ADMINISTRATOR Plan of Treatment Health Maintenance Due Date [...] 01/21/2022, 03/2014 Medical Devices Implanted Type Area Resort Desk Clerk Device Identifier Shelf Expiration Date Model / Serial / Lot [employer] Vascular Occluder Amplatzer Talisman Pfo 25-18mm [id number] - [id number] Implanted:Qty: 1 on 05/29/2024 by Gallo Diehl MD at [facility] Septal Defect Closure Device [employer] 03/27/2025 [id number] / / [employer] System Closure Repair Femoral Artery Suture Mediated Perclose Prostyle 24654-20 - [id number] Implanted:Qty: 1 on 05/29/2024 by Gallo Diehl MD at [facility] [employer] 02/24/2026 38714-20 / / [id number] Procedures Procedure Name Priority Date/Time Associated Diagnosis Comments TRANSTHORACIC ECHO (TTE) LIMITED/FOLLOW UP W LTD DOPPLER/CF WO CONTRAST Routine 05/30/2024 8:27 AM ESTATE ADMINISTRATOR POCT GLUCOSE DEVICE Routine 05/30/2024 8 :18 AM ESTATE ADMINISTRATOR EGFR Routine 05/30/2024 4:01 AM ESTATE ADMINISTRATOR DIFFERENTIAL AUTO Routine 05/30/2024 4:0 1 AM ESTATE ADMINISTRATOR CBC WITH AUTO DIFFERENTIAL Routine 05/30/2024 4:01 AM ESTATE ADMINISTRATOR BASIC METABOLIC PANEL Routine 05/30/2024 4:01 AM ESTATE ADMINISTRATOR POCT GLUCOSE DEVICE Routine 05/29/2024 9 :18 PM ESTATE ADMINISTRATOR POCT GLUCOSE DEVICE Routine 05/29/2024 5 :54 PM ESTATE ADMINISTRATOR POCT GLUCOSE DEVICE Routine 05/29/2024 1 2:52 PM ESTATE ADMINISTRATOR POCT GLUCOSE DEVICE Routine 05/29/2024 8 :58 AM ESTATE ADMINISTRATOR ATRIAL SEPTAL DEFECT CLOSURE Routine 05/29/2024 8:38 AM ESTATE ADMINISTRATOR PFO (patent foramen ovale) AK AN ELECTIVE ENDOTRACHEAL AIRWAY Routine 05/29/2024 8:12 AM ESTATE ADMINISTRATOR ECG 12-LEAD Routine 05/29/2024 7:03 AM ESTATE ADMINISTRATOR POCT GLUCOSE DEVICE Routine 05/29/2024 6 :38 AM ESTATE ADMINISTRATOR URINALYSIS AND REFLEX TO MICROSCOPIC AND CULTURE Routine 05/25/2024 12:12 PM ESTATE ADMINISTRATOR Pre-op testing XR FOOT RIGHT 3 OR MORE VIEWS Schedule Routine, Read Routine (OP Routine) 05/24/2024 1:24 PM ESTATE ADMINISTRATOR Left foot pain XR FOOT LEFT 3 OR MORE VIEWS Schedule Routine, Read Routine (OP Routine) 05/24/2024 1:24 PM ESTATE ADMINISTRATOR Right foot pain HEMOGLOBIN A1C Routine 04/12/2018 5:45 AM ESTATE ADMINISTRATOR LIPID PANEL Routine 04/12/2018 5:45 AM ESTATE ADMINISTRATOR from Last 3 Months or Most Recently Relevant to Health Maintenance Results * TRANSTHORACIC ECHO (TTE) LIMITED/FOLLOW UP W LTD DOPPLER/CF WO CONTRAST (05/30/2024 8:27 AM ESTATE ADMINISTRATOR) Anatomical Region Laterality Modality Ultrasound 05/30/2024 7:49 AM ESTATE ADMINISTRATOR Narrative 05/30/2024 12:27 PM [place] [address] Limited Echocardiogram Report Patient Name: PAULA ORELLANA S : 1960 Study Date: 05/30/2024 7:49:55 AM Gender: F Tech: THAD Location: [id number] Ref Provider: GALLO DIEHL Height(Cm): 163 BSA: [...] DO, FACC, FASE, FASNC 05/30/2024 12:27:25 PM ESTATE ADMINISTRATOR Procedure Note Zeina Zamora DO - 05/30/2024 [place] [address] Limited Echocardiogram Report Patient Name: PAULA ORELLANA S : 1960 Study Date: 05/30/2024 7:49:55 AM Gender: F Tech: THAD Location: [id number] Ref Provider: GALLO DIEHL Height(Cm): 163 BSA: [...] DO, JASPREET MONACO FASNC 05/30/2024 12:27:25 PM ESTATE ADMINISTRATOR us Gallo Diehl MD CV ECHO PROCEDURES Final Result * POCT glucose (05/30/2024 8:18 AM ESTATE ADMINISTRATOR) Glucose, POC 127 70 - 199 mg/dL Blood 05/30/2024 8:18 AM ESTATE ADMINISTRATOR 05/30/2024 8:18 AM ESTATE ADMINISTRATOR Gallo Diehl MD LAB POCT ORDERABLES - DEVICE Fi nal Result [facility] [address] Department [place] [address] * eGFR (05/30/2024 4:01 AM ESTATE ADMINISTRATOR) eGFR 61 >=60 mL/min/1. 73 m2 Comment: [...] last reviewed 2021. Blood 05/30/2024 4:01 AM ESTATE ADMINISTRATOR 05/30/2024 4:33 AM ESTATE ADMINISTRATOR us Gallo Diehl MD LAB BLOOD ORDERABLES Final Resu lt [facility] [address] [place] [address] * Differential, auto (05/30/2024 4:01 AM ESTATE ADMINISTRATOR) Neutrophil abs 6.5 1.5 - 6.5 K/cumm Imm gran abs 0.0 0.0 - 0.1 K/cumm [facility] Lymphocyte abs 1.2 0.8 - 3.3 K/cumm [facility] Monocyte abs 0.6 0.2 - 0.8 K/cumm [facility] Eosinophil abs 0.0 0.0 - 0.5 K/cumm [facility] Basophil abs 0.0 0.0 - 0.1 K/cumm [facility] Neutrophil pct 77.2 % [facility] Comment: Interpretive [...] revised on 2017. Blood 05/30/2024 4:01 AM ESTATE ADMINISTRATOR 05/30/2024 4:12 AM ESTATE ADMINISTRATOR Gallo Diehl MD LAB BLOOD ORDERABLES Final Resu lt [facility] [address] Department [employer] [place], [place] [id number] * (ABNORMAL) CBC with auto differential (05/30/2024 4:01 AM ESTATE ADMINISTRATOR) WBC 8.5 3.8 - 9.9 K/cumm Hgb [...] K/cumm [facility] Blood 05/30/2024 4:01 AM ESTATE ADMINISTRATOR 05/30/2024 4:12 AM ESTATE ADMINISTRATOR Gallo Diehl MD LAB BLOOD ORDERABLES Final Resu lt [facility] [address] [facility] [employer] [place], [place] [id number] * Basic metabolic panel (05/30/2024 4:01 AM ESTATE ADMINISTRATOR) Sodium 141 135 - 145 mmol/L Potassium, pl 3.8 3.3 - 4.9 mmol/L [facility] Chloride 103 97 - 110 mmol/L [facility] CO2 25 22 - 32 mmol/L [facility] Anion gap 13 2 - 15 mmol/L [facility] BUN 22 6 - 25 mg/dL [facility] Creatinine 1.02 0.60 - 1.10 mg/dL [facility] Glucose 128 70 - 199 mg/dL [facility] Comment: Interpretive Data Fasting glucose >/= 126 [...] 2022. Calcium 9.8 8.5 - 10.3 mg/dL [facility] Blood 05/30/2024 4:01 AM ESTATE ADMINISTRATOR 05/30/2024 4:33 AM ESTATE ADMINISTRATOR Gallo Diehl MD LAB BLOOD ORDERABLES Final Resu lt Performing Organization Address City/[facility]/ZIP Co de Phone Number [facility] [address] [place] [address] * (ABNORMAL) POCT glucose (05/29/2024 9:18 PM ESTATE ADMINISTRATOR) Glucose, POC 213(H) 70 - 199 mg/dL Blood 05/29/2024 9:18 PM ESTATE ADMINISTRATOR 05/29/2024 9:18 PM ESTATE ADMINISTRATOR Gallo Diehl MD LAB POCT ORDERABLES - DEVICE Fi nal Result Performing Organization Address City/[facility]/ZIP Co de Phone Number [facility] [address] Department [place] [employer] [place] [address] * POCT glucose (05/29/2024 5:54 PM ESTATE ADMINISTRATOR) Glucose, POC 115 70 - 199 mg/dL Blood 05/29/2024 5:54 PM ESTATE ADMINISTRATOR 05/29/2024 5:54 PM ESTATE ADMINISTRATOR us Gallo Diehl MD LAB POCT ORDERABLES - DEVICE Fi nal Result Performing Organization Address [facility] de Phone Number [facility] [address] [facility] [place] [place] [address] * (ABNORMAL) POCT glucose (05/29/2024 12:52 PM ESTATE ADMINISTRATOR) Glucose, POC 224(H) 70 - 199 mg/dL Blood 05/29/2024 12:5 2 PM ESTATE ADMINISTRATOR 05/29/2024 12:52 PM ESTATE ADMINISTRATOR us Gallo Diehl MD LAB POCT ORDERABLES - DEVICE Fi nal Result Performing Organization Address [facility] de Phone Number [facility]KR[facility] [address] [place] [address] * POCT glucose (05/29/2024 8:58 AM ESTATE ADMINISTRATOR) Glucose, POC 120 70 - 199 mg/dL Blood 05/29/2024 8:58 AM ESTATE ADMINISTRATOR 05/29/2024 8:58 AM ESTATE ADMINISTRATOR Gallo Diehl MD LAB POCT ORDERABLES - DEVICE Fi nal Result Performing Organization Address [facility] de Phone Number [facility] [address] [place] [address] * ATRIAL SEPTAL DEFECT CLOSURE (05/29/2024 8:38 AM ESTATE ADMINISTRATOR) Anatomical Region Laterality Modality X-Ray Angiograph y Narrative 05/29/2024 8:48 AM ESTATE ADMINISTRATOR Table formatting from the original result was not included. ATRIAL SEPTAL DEFECT (ASD), PATENT FORAMEN OVALE (PFO), FENESTRATION CLOSURE [id number] Brief Op Note Attending Screw Machine Repairer: Gallo Diehl MD Primary: Gallo Diehl MD CV Documenter: Selam Hernández RN CV Scrub: Ezra Douglass; Avis Lance CV Blade Operator: Patricia Bowen RN; Shawna Cooper RN Date of Procedure: 05/29/2024 Specimens: No specimen collected in procedure Preoperative Diagnosis: Pre-op Diagnosis * PFO (patent foramen ovale) [Q21.12] Postoperative Diagnosis: Post-op Diagnosis * PFO (patent foramen ovale) [Q21.12] Name of Procedure: Procedure(s): ATRIAL SEPTAL DEFECT (ASD), PATENT FORAMEN OVALE (PFO), FENESTRATION CLOSURE [id number] Implants: Implant Name Type Inv. Item Serial No. Resort Desk Clerk Lot No. LRB No. Used Action [employer] VASC[employer] System Closure Repair Femoral Artery Suture Mediated Perclose Prostyle 16493-43 - [id number] [employer] System Closure Repair Femoral Artery Suture Mediated Perclose Prostyle 84143-92 [employer] [id number] N/A 1 Implanted [employer] Occluder Amplatzer Talisman Pfo 25-18mm [id number] - [id number] Septal Defect Closure Device [employer] Occluder [...] was proctored by Dr. Brandan Cifuentes from [facility]. COMPLICATIONS: None ESTIMATED BLOOD LOSS: 5 [...] AN ELECTIVE ENDOTRACHEAL AIRWAY (05/29/2024 8:12 AM ESTATE ADMINISTRATOR) Narrative Gerald Retana AA - 05/29/2024 8:12 AM ESTATE ADMINISTRATOR Gerald Retana AA 05/29/2024 8:13 AM Airway [...] * ECG 12 lead (05/29/2024 7:03 AM ESTATE ADMINISTRATOR) 05/29/2024 7:03 AM ESTATE ADMINISTRATOR Narrative [facility] - 05/29/2024 11:11 AM ESTATE ADMINISTRATOR Vent Rate: 68 bpm RR Interval: 878 msec AK Interval: 184 msec QRS Duration: 97 msec QT Interval: 425 msec QTC Interval: 442 msec P-R-T Doland: 72 - -19 - 60 degrees IMPRESSION: SINUS RHYTHM SEPTAL MYOCARDIAL INFARCTION , PROBABLY OLD VERSUS POOR R-WAVE PROGRESSION ABNORMAL ECG Electronically Signed By: Pantera Wiggins MD Gallo Diehl MD ECG ORDERABLES Final Result Performing Organization Address [facility] Co de Phone Number [facility] * POCT glucose (05/29/2024 6:38 AM ESTATE ADMINISTRATOR) Glucose, POC 111 70 - 199 mg/dL Blood 05/29/2024 6:38 AM ESTATE ADMINISTRATOR 05/29/2024 6:38 AM ESTATE ADMINISTRATOR Gallo Diehl MD LAB POCT ORDERABLES - DEVICE Fi nal Result Performing Organization Address City/[facility]/ZIP Co de Phone Number [facility] [address] Department of Laboratories [place], [place] [address] * Urinalysis reflex to microscopic and culture Urine, clean voided (05/25/2024 12:12 PM ESTATE ADMINISTRATOR) Color, ur Straw Yellow Clarity, ur Clear [...] tendency for uric acid stone formation. Source: [facility] Current Interpretive Data was last revised on [...] for microscopic UA and culture not met. [facility] Urine, clean voided 05/25/2024 12:12 PM ESTATE ADMINISTRATOR 05/25/2024 12:21 PM ESTATE ADMINISTRATOR Marianne Matos NP LAB MICROBIOLOGY - GENERAL ORD ERABLES Final Result [facility] [address] Department [place] [address] * XR Foot Right 3 or More Views (05/24/2024 1:24 PM ESTATE ADMINISTRATOR) Anatomical Region Laterality Modality Lower Extremities, Foot Right Computed Radiography 05/24/2024 1:31 PM ESTATE ADMINISTRATOR Impressions 05/24/2024 1:31 PM ESTATE ADMINISTRATOR 1. 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 2. Apparent lesser hammertoe deformities with ankle fixed in plantar flexion on these nonweightbearing images. Electronically signed by: Maximus Murry MD Narrative 05/24/2024 1:31 PM ESTATE ADMINISTRATOR EXAMINATION: XR FOOT LEFT 3 OR MORE [...] 3 or More Views (05/24/2024 1:24 PM ESTATE ADMINISTRATOR) Anatomical Region Laterality Modality Lower Extremities, Foot Left Computed Radiography 05/24/2024 1:31 PM ESTATE ADMINISTRATOR Impressions 05/24/2024 1:31 PM ESTATE ADMINISTRATOR 1. 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 2. Apparent lesser hammertoe deformities with ankle fixed in plantar flexion on these nonweightbearing images. Electronically signed by: Maximus Murry MD Narrative 05/24/2024 1:31 PM ESTATE ADMINISTRATOR EXAMINATION: XR FOOT LEFT 3 OR MORE [...] * (ABNORMAL) Hemoglobin A1c (04/12/2018 5:45 AM ESTATE ADMINISTRATOR) Hemoglobin A1c % 5.9(H) 4.0 - 5.6 % 04/12/2018 6:40 AM ESTATE ADMINISTRATOR [facility] HISTORICAL RESULTS Comment: ADA 2016 GUIDELINES: Initial Diagnostic Criteria HbA1c Result: Interpretation: <5.7% Normal 5.7-6.4% At risk for diabetes mellitus >=6.5% Consistent with diabetes mellitus Diabetes monitoring Target value (ADA Recommended) <7% 04/12/2018 5:45 AM ESTATE ADMINISTRATOR 04/12/2018 6:02 AM ESTATE ADMINISTRATOR Narrative [facility] [employer] HISTORICAL RESULTS - 04/12/2018 6:40 AM ESTATE ADMINISTRATOR Comment In AM us Guicho Nova MD LAB BLOOD ORDERABLES Final Resul t Performing Organization Address [facility]/ZIP Co de Phone Number [facility] [employer] HISTORICAL RESULTS * Lipid panel (04/12/2018 5:45 AM ESTATE ADMINISTRATOR) Triglycerides 124 0 - 149 mg/dL 04/12/2018 6:42 AM [facility] [employer] HISTORICAL RESULTS Comment: National Lipid Association/NCEP Guidelines: Normal < 150 mg/dL Borderline high 150-199 mg/dL High 200-499 mg/dL Very High >=500 mg/dL Cholesterol 118 0 - 199 mg/dL 04/12/2018 6:42 AM [facility] [employer] HISTORICAL RESULTS Comment: National Lipid Association/NCEP Guidelines: Desirable < 200 mg/dL Borderline high: 200-239 mg/dL High Risk: >=240 mg/dL HDL Cholesterol 52 mg/dL 9 6:42 AM [facility] [employer] HISTORICAL RESULTS Comment: Reference Ranges: Males: >=40 mg/dL Females: >=50 mg/dL LDL Cholesterol, Calc 41 0 - 129 mg/dL 04/12/2018 6:42 AM [facility] [employer] HISTORICAL RESULTS Comment: National Lipid Association/NCEP Guidelines: Optimal < 100 mg/dL Near Optimal 100-129 mg/dL Borderline high 130-159 mg/dL High >=160 mg/dL Cholesterol/HDL Ratio 2.3 04/12/2018 6:42 AM [facility] [employer] HISTORICAL RESULTS Comment: Optimal < 3.5:1 High > 5:1 04/12/2018 5:45 AM ESTATE ADMINISTRATOR 04/12/2018 6:[address] [facility] [employer] HISTORICAL RESULTS - 04/12/2018 6:42 AM ESTATE ADMINISTRATOR Comment In AM us Guicho Nova MD LAB BLOOD ORDERABLES Final Resul t [facility] from Last 3 Months or Most Recently Relevant to Health Maintenance Insurance IDPA [facility] MEDICARE ADVANTAGE [facility] MEDIC[facility] Address: [id number] [place] [address] [facility] MEDICARE ADVANTAGE IDPA Advance Directives For more information, please contact: [phone] * Full Code (Latest Code Status on File) Date Activated Date Inactivated Comments 05/29/2024 10:10 AM 05/30/2024 3:37 PM Care Teams Horse Show Manager Relationship Specialty Start Date End Date Agustin Flor MD PCP - General Internal Medicine 06/28/22 Annie Simpson MD [address] [place] [address] Consulting Physician Cardiology 05/30/24
--- OUTSIDE RECORDS SUMMARY | 2024-06-28 22:17 | XMS_ITS | Clinical Summary ---
Author Organization [facility] Address [address] [place] [address] Phone Care Team Providers Care Manager Review Name Role Phone Agustin Flor MD Primary Care Provider [phone] Allergies Active Allergy Reactions Criticality Noted Date [...] CDT) hepatitis C antibody 0.09 <1 S/CO [facility] ARCH [id number] B 07/13/2022 9:22 PM CDT [facility] Comment: Signal/Cutoff ratio < 0.79 is Nondetected Signal/Cutoff ratio 0.80-0.99 is Grayzone Signal/Cutoff ratio > 0.99 is Detected Supplemental assays are recommended if signal/cutoff ratio is >/=1.00. Signal/cutoff ratio result >/= 5.00 is 97% predictive of positivity for recombinant immunoblot assay (RIBA) and will be reported to the [place] Department of Public [facility] as required. Blood Venipuncture / Unknown 07/13/2022 1:29 PM CDT 07/13/2022 1:41 PM CDT Hans Escobar MD CHEMISTRY ORDERABLES Fin al Result [facility] [address] [place] [address], [place] from Last 3 Months or Most Recently Relevant to Health Maintenance Insurance MEDICARE C [employer] [place] Care Teams Manager Review Relationship Specialty Start Date End Date Agustin Flor MD PCP - General Internal Medicine 07/13/22
--- OUTSIDE RECORDS SUMMARY | 2024-06-28 22:17 | XMS_ITS ---
Author Organization [facility] Medical Office Building [address] Address [address] [place] [address] Care Team Providers Care Geothermal Field Technician Name Role Phone Agustin Flor MD Primary Care Provider [phone] Annie Simpson MD Unavailable [phone] Active Problems Problem Noted Date Diagnosed Date PFO (patent foramen ovale) 02/22/2024 Assessment & Plan (02/22/2024 9:06 AM DELIVERY DRIVER/CUSTOMER SERVICE): She has followed with cardiology and has now seen a surgeon with plans for repair in the next several months We will reassess her dyspnea after her recovery from this procedure Centrilobular emphysema 02/22/2024 Assessment & Plan (02/22/2024 9:05 AM DELIVERY DRIVER/CUSTOMER SERVICE): Continue Trelegy Ellipta 100 daily Albuterol as [...] 02/21 Assessment & Plan (02/22/2024 9:06 AM DELIVERY DRIVER/CUSTOMER SERVICE): Last CT chest in November of 2023 [...]
--- OUTSIDE RECORDS SUMMARY | 2024-06-28 22:17 | XMS_ITS | Referral Summary ---
Author Organization [facility] B Address [address] [place] [address] Care Team Providers Care Chairman Of The Board Name Role Phone Agustin Flor MD Primary Care Provider + [phone] Annie Simpson MD Unavailable [phone] Encounters Date Type Department Care Team Description 05/29/2024 5:33 AM MONOGRAM OPERATOR - 05/30/2024 11:37 AM MONOGRAM OPERATOR Hospital Encounter [address] [address] Gallo Diehl MD PFO (patent foramen ovale) Discharge Disposition: Discharge to home or self care 05/29/2024 7:59 AM MONOGRAM OPERATOR - 05/29/2024 11:59 PM MONOGRAM OPERATOR Hospital Encounter [facility] Cardiac Catheterization Lab [address] [place] [address] Discharge Disposition: Discharge to home or self care 05/29/2024 8:00 AM MONOGRAM OPERATOR - 05/29/2024 10:00 AM MONOGRAM OPERATOR Surgery [facility] [address] [place] [address] Gallo Diehl MD ATRIAL SEPTAL DEFECT (ASD), PATENT FORAMEN OVALE (PFO), FENESTRATION CLOSURE [id number] 05/29/2024 7:57 AM MONOGRAM OPERATOR Anesthesia Event [facility] [address] [place] [address] Chavez Chiu MD Eldin, Ali S., MD 05/25/2024 9:45 AM MONOGRAM OPERATOR Pre-Admission Testing [facility] Pre Anesthesia Testing [address] [place] [address] Pre-op testing (Primary Dx) 05/24/2024 1:05 PM MONOGRAM OPERATOR - 05/24/2024 11:59 PM MONOGRAM OPERATOR Hospital Encounter [facility] [id number] [place] [address] Left foot pain Discharge Disposition: Discharge to home or self care 05/24/2024 1:09 PM MONOGRAM OPERATOR - 05/24/2024 11:59 PM MONOGRAM OPERATOR Hospital Encounter [facility] [address] [place] [address] Right foot pain Discharge Disposition: Discharge to home or self care 05/24/2024 12:30 PM MONOGRAM OPERATOR Office Visit [facility] Orthopaedic Surgery [id number] [place] [address] 2nd [address] [place] [address] Lakia Riddle MD Left foot pain (Primary Dx); Right foot pain; Acquired equinovarus deformity of left foot; Acquired equinovarus deformity of right foot 05/15/2024 Orders Only [facility] [address] [place] [address] Gallo Diehl MD PFO (patent foramen ovale) [...] nightly 11/13/19 23 Active FreeStyle Ron 3 [place] misc 2 (two) times a day 10/03/19 [...] 02/22/2024 Assessment & Plan (02/22/2024 9:06 AM MONOGRAM OPERATOR): She has followed with cardiology and has now seen a surgeon with plans for repair in the next several months We will reassess her dyspnea after her recovery from this procedure Centrilobular emphysema 02/22/2024 Assessment & Plan (02/22/2024 9:05 AM MONOGRAM OPERATOR): Continue Trelegy Ellipta 100 daily Albuterol [...] 02/21 Assessment & Plan (02/22/2024 9:06 AM MONOGRAM OPERATOR): Last CT chest in November of [...] on file Legal Sex Female 9:14 PM MONOGRAM OPERATOR Gender Identity Not on file Sexual Orientation Not on file Last Filed Vital Signs Vital Sign Reading Time Taken Comments Blood Pressure 118/62 05/30/2024 7:40 AM MONOGRAM OPERATOR Pulse 74 05/30/2024 9:02 AM MONOGRAM OPERATOR Temperature 37.4 C (99.4 F) 05/30/2024 7:40 AM MONOGRAM OPERATOR Respiratory Rate 18 05/30/2024 7:40 AM MONOGRAM OPERATOR Oxygen Saturation 95% 05/30/2024 7:40 AM MONOGRAM OPERATOR Inhaled Oxygen Concentration - - Weight 57.6 kg (126 lb 15.8 oz) 05/30/2024 5:45 AM MONOGRAM OPERATOR Height 162.6 cm (5' 4 ) 05/29/2024 6:49 AM MONOGRAM OPERATOR Body Mass Index 21.8 05/29/2024 6:49 AM MONOGRAM OPERATOR Plan of Treatment Not on file Medical Devices Implanted Type Area Forging Press Setter Up Device Identifier Shelf Expiration Date Model / Serial / Lot [employer] V[employer] Occluder Amplatzer Talisman Pfo 25-18mm [id number] - [id number] Implanted:Qty: 1 on 05/29/2024 by Gallo Diehl MD at [facility] Septal Defect Closure Device [employer] 03/27/2025 [id number] / / [employer] System Closure Repair Femoral Artery Suture Mediated Perclose Prostyle 07242-94 - [id number] Implanted:Qty: 1 on 05/29/2024 by Gallo Diehl MD at [facility] [employer] 02/24/2026 [id number] / / [id number] Procedures Procedure Name Priority Date/Time Associated Diagnosis Comments TRANSTHORACIC ECHO (TTE) LIMITED/FOLLOW UP W LTD DOPPLER/CF WO CONTRAST Routine 05/30/2024 8:27 AM MONOGRAM OPERATOR POCT GLUCOSE DEVICE Routine 05/30/2024 8 :18 AM MONOGRAM OPERATOR EGFR Routine 05/30/2024 4:01 AM MONOGRAM OPERATOR DIFFERENTIAL AUTO Routine 05/30/2024 4:0 1 AM MONOGRAM OPERATOR CBC WITH AUTO DIFFERENTIAL Routine 05/30/2024 4:01 AM MONOGRAM OPERATOR BASIC METABOLIC PANEL Routine 05/30/2024 4:01 AM MONOGRAM OPERATOR POCT GLUCOSE DEVICE Routine 05/29/2024 9 :18 PM MONOGRAM OPERATOR POCT GLUCOSE DEVICE Routine 05/29/2024 5 :54 PM MONOGRAM OPERATOR POCT GLUCOSE DEVICE Routine 05/29/2024 1 2:52 PM MONOGRAM OPERATOR POCT GLUCOSE DEVICE Routine 05/29/2024 8 :58 AM MONOGRAM OPERATOR ATRIAL SEPTAL DEFECT CLOSURE Routine 05/29/2024 8:38 AM MONOGRAM OPERATOR PFO (patent foramen ovale) MT AN ELECTIVE ENDOTRACHEAL AIRWAY Routine 05/29/2024 8:12 AM MONOGRAM OPERATOR ECG 12-LEAD Routine 05/29/2024 7:03 AM MONOGRAM OPERATOR POCT GLUCOSE DEVICE Routine 05/29/2024 6 :38 AM MONOGRAM OPERATOR URINALYSIS AND REFLEX TO MICROSCOPIC AND CULTURE Routine 05/25/2024 12:12 PM MONOGRAM OPERATOR Pre-op testing XR FOOT RIGHT 3 OR MORE VIEWS Schedule Routine, Read Routine (OP Routine) 05/24/2024 1:24 PM MONOGRAM OPERATOR Left foot pain XR FOOT LEFT 3 OR MORE VIEWS Schedule Routine, Read Routine (OP Routine) 05/24/2024 1:24 PM MONOGRAM OPERATOR Right foot pain HEMOGLOBIN A1C Routine 04/12/2018 5:45 AM MONOGRAM OPERATOR LIPID PANEL Routine 04/12/2018 5:45 AM MONOGRAM OPERATOR from Last 3 Months or Most Recently Relevant to Health Maintenance Results * TRANSTHORACIC ECHO (TTE) LIMITED/FOLLOW UP W LTD DOPPLER/CF WO CONTRAST (05/30/2024 8:27 AM MONOGRAM OPERATOR) Anatomical Region Laterality Modality Ultrasound 05/30/2024 7:49 AM MONOGRAM OPERATOR Narrative 05/30/2024 12:27 [place] [address] Limited Echocardiogram Report Patient Name: PAULA ORELLANA S : 1960 Study Date: 05/30/2024 7:49:55 AM Gender: F Tech: THAD Location: [id number] Ref Provider: FAZALGALLO Height(Cm): 163 BSA: 1.61 [...] DO, JACINDA, JASPREET, LOU 05/30/2024 12:27:25 PM MONOGRAM OPERATOR Procedure Note Zeina Zamora DO - 05/30/2024 [place] [address] Limited Echocardiogram Report Patient Name: PAULA ORELLANA S : 1960 Study Date: 05/30/2024 7:49:55 AM Gender: F Tech: THAD Location: [id number] Ref Provider: GALLO DIEHL Height(Cm): 163 BSA: [...] DO, JACINDA, LOU VOGEL 05/30/2024 12:27:25 PM MONOGRAM OPERATOR us Gallo Diehl MD CV ECHO PROCEDURES Final Result * POCT glucose (05/30/2024 8:18 AM MONOGRAM OPERATOR) [facility] Signature Glucose, POC 127 70 - 199 mg/dL Blood 05/30/2024 8:18 AM MONOGRAM OPERATOR 05/30/2024 8:18 AM MONOGRAM OPERATOR Gallo Diehl MD LAB POCT ORDERABLES - DEVICE Fi nal Result Performing Organization Address City/[facility] Co de Phone Number VIKRAM THRASHER [address] [address] Department [place] [address] * eGFR (05/30/2024 4:01 AM MONOGRAM OPERATOR) eGFR 61 >=60 mL/min/1. 73 m2 [...] last reviewed 2021. Blood 05/30/2024 4:01 AM MONOGRAM OPERATOR 05/30/2024 4:33 AM MONOGRAM OPERATOR Gallo Diehl MD LAB BLOOD ORDERABLES Final Resu lt Performing Organization Address City/[facility]/ZIP Co de Phone Number VIKRAM THRASHER [address] Department [place] [address] * Differential, auto (05/30/2024 4:01 AM MONOGRAM OPERATOR) Neutrophil abs 6.5 1.5 - 6.5 K/cumm Imm gran abs 0.0 0.0 - 0.1 K/cumm [facility] Lymphocyte abs 1.2 0.8 - 3.3 K/cumm [facility] Monocyte abs 0.6 0.2 - 0.8 K/cumm [facility] Eosinophil abs 0.0 0.0 - 0.5 K/cumm [facility] Basophil abs 0.0 0.0 - 0.1 K/cumm [facility] Neutrophil pct 77.2 % [facility] Comment: Interpretive Data Percent cell count reference ranges are not reported, since discordance with absolute values may lead to misinterpretation of CBC data. Current Interpretive Data was last revised on 2017. Imm gran pct 0.5 % [facility] Comment: Interpretive Data Percent cell count reference ranges are not reported, since discordance with absolute values may lead to misinterpretation of CBC data. Current Interpretive Data was last revised on 2017. Lymphocyte pct 14.4 % [facility] Comment: Interpretive Data Percent cell count reference ranges are not reported, since discordance with absolute values may lead to misinterpretation of CBC data. Current Interpretive Data was last revised on 2017. Monocyte pct 7.5 % [facility] Comment: Interpretive Data Percent cell count reference ranges are not reported, since discordance with absolute values may lead to misinterpretation of CBC data. Current Interpretive Data was last revised on 2017. Eosinophil pct 0.2 % [facility] Comment: Interpretive Data Percent cell count reference ranges are not reported, since discordance with absolute values may lead to misinterpretation of CBC data. Current Interpretive Data was last revised on 2017. Basophil pct 0.2 % [facility] Comment: Interpretive Data Percent cell count reference ranges are not reported, since discordance with absolute values may lead to misinterpretation of CBC data. Current Interpretive Data was last revised on 2017. Blood 05/30/2024 4:01 AM MONOGRAM OPERATOR 05/30/2024 4:12 AM MONOGRAM OPERATOR us Gallo Diehl MD LAB BLOOD ORDERABLES Final Resu lt VIKRAM THRASHER [address] Department [place] [address] * (ABNORMAL) CBC with auto differential (05/30/2024 4:01 AM MONOGRAM OPERATOR) WBC 8.5 3.8 - 9.9 K/cumm Hgb 11.8(L) 11.9 - 15.5 g/dL [facility] Hct 37.2 35.6 - 45.5 % [facility] CH Plt 176 150 - 400 K/cumm [facility] MPV 9.0(L) 9.1 - 12.3 fL [facility] RBC 4.07 3.90 - 5.20 M/cumm [facility] MCV 91.4 81.3 - 96.4 fL [facility] MCH 29.0 27.1 - 33.3 pg [facility] MCHC 31.7(L) 32.3 - 35.7 g/dL [facility] RDW CV 14.6 11.1 - 14.9 % [facility] RDW SD 48.1 35.7 - 48.1 fL [facility] NRBC abs 0.00 0.00 - 0.01 K/cumm [facility] Blood 05/30/2024 4:01 AM MONOGRAM OPERATOR 05/30/2024 4:12 AM MONOGRAM OPERATOR us Gallo Diehl MD LAB BLOOD ORDERABLES Final Resu lt [facility] [address] [address] Department [place] [address] * Basic metabolic panel (05/30/2024 4:01 AM MONOGRAM OPERATOR) Sodium 141 135 - 145 mmol/L Potassium, pl 3.8 3.3 - 4.9 mmol/L [facility] Chloride 103 97 - 110 mmol/L [facility] CO2 25 22 - 32 mmol/L [facility] Anion gap 13 2 - 15 mmol/L [facility] BUN 22 6 - 25 mg/dL [facility] Creatinine 1.02 0.60 - 1.10 mg/dL [facility] Glucose 128 70 - 199 mg/dL [facility] Comment: Interpretive Data Fasting glucose >/= 126 [...] 10.3 mg/dL VIKRAM Blood 05/30/2024 4:01 AM MONOGRAM OPERATOR 05/30/2024 4:33 AM MONOGRAM OPERATOR Gallo Diehl MD LAB BLOOD ORDERABLES Final Resu lt Performing Organization Address [facility] Co de Phone Number EVANSTEENA [address] [address] [facility] [place] [address] * (ABNORMAL) POCT glucose (05/29/2024 9:18 PM MONOGRAM OPERATOR) Glucose, POC 213(H) 70 - 199 mg/dL Blood 05/29/2024 9:18 PM MONOGRAM OPERATOR 05/29/2024 9:18 PM MONOGRAM OPERATOR Gallo Diehl MD LAB POCT ORDERABLES - DEVICE Fi nal Result Performing Organization Address [facility] Co de Phone Number EVANSTEENA [address] [address] [facility] [place] [address] * POCT glucose (05/29/2024 5:54 PM MONOGRAM OPERATOR) Glucose, POC 115 70 - 199 mg/dL Blood 05/29/2024 5:54 PM MONOGRAM OPERATOR 05/29/2024 5:54 PM MONOGRAM OPERATOR Gallo Diehl MD LAB POCT ORDERABLES - DEVICE Fi nal Result Performing Organization Address [facility] Co de Phone Number VIKRAM [address] [address] [facility] [place] [address] * (ABNORMAL) POCT glucose (05/29/2024 12:52 PM MONOGRAM OPERATOR) Glucose, POC 224(H) 70 - 199 mg/dL Blood 05/29/2024 12:5 2 PM MONOGRAM OPERATOR 05/29/2024 12:52 PM MONOGRAM OPERATOR Gallo Diehl MD LAB POCT ORDERABLES - DEVICE Fi nal Result Performing Organization Address [facility] [place] [address] [address] [facility] [place] [address] * POCT glucose (05/29/2024 8:58 AM MONOGRAM OPERATOR) Glucose, POC 120 70 - 199 mg/dL Blood 05/29/2024 8:58 AM MONOGRAM OPERATOR 05/29/2024 8:58 AM MONOGRAM OPERATOR Gallo Diehl MD LAB POCT ORDERABLES - DEVICE Fi nal Result Performing Organization Address [facility] Phone Number VIKRAM [address] [address] [facility] [place] [address] * ATRIAL SEPTAL DEFECT CLOSURE (05/29/2024 8:38 AM MONOGRAM OPERATOR) Anatomical Region Laterality Modality X-Ray Angiograph y Narrative 05/29/2024 8:48 AM MONOGRAM OPERATOR Table formatting from the original result was not included. ATRIAL SEPTAL DEFECT (ASD), PATENT FORAMEN OVALE (PFO), FENESTRATION CLOSURE [id number] Brief Op Note Attending [employer] Ha[employer] Youth Supervisor: Gallo Dihel MD Primary: Gallo Diehl MD CV Documenter: Selam Hernández RN CV Scrub: Ezra Douglass; Avis Lance CV Motorized Squad Commanding Officer: Patricia Bowen RN; Shawna Cooper RN Date of Procedure: 05/29/2024 Specimens: No specimen collected in procedure Preoperative Diagnosis: Pre-op Diagnosis * PFO (patent foramen ovale) [Q21.12] Postoperative Diagnosis: Post-op Diagnosis * PFO (patent foramen ovale) [Q21.12] Name of Procedure: Procedure(s): ATRIAL SEPTAL DEFECT (ASD), PATENT FORAMEN OVALE (PFO), FENESTRATION CLOSURE [id number] Implants: Implant Name Type Inv. Item Serial No. Forging Press Setter Up Lot No. LRB No. Used Action [employer] System Closure Repair Femoral Artery Suture Mediated Perclose Prostyle 50816-48 - [id number] [employer] System Closure Repair Femoral Artery Suture Mediated Perclose Prostyle 86849-50 [employer] [id number] N/A 1 Implanted [employer] Occluder Amplatzer Talisman Pfo 25-18mm [id number] - [id number] Septal Defect Closure Device [employer] Occluder [...] proctored by Dr. Brandan Cifuentes from [facility]. COMPLICATIONS: None ESTIMATED BLOOD LOSS: 5 [...] CARDIAC CATH PROCEDURES Yuli l Result * MT AN ELECTIVE ENDOTRACHEAL AIRWAY (05/29/2024 8:12 AM MONOGRAM OPERATOR) Narrative Gerald Retana AA - 05/29/2024 8:12 AM MONOGRAM OPERATOR Gerald Retana AA 05/29/2024 8:13 AM [...] * ECG 12 lead (05/29/2024 7:03 AM MONOGRAM OPERATOR) 05/29/2024 7:03 AM MONOGRAM OPERATOR Narrative [facility] - 05/29/2024 11:11 AM MONOGRAM OPERATOR Vent Rate: 68 bpm RR Interval: 878 msec MT Interval: 184 msec QRS Duration: 97 msec QT Interval: 425 msec QTC Interval: 442 msec P-R-T [place]: 72 - -19 - 60 degrees IMPRESSION: SINUS RHYTHM SEPTAL MYOCARDIAL INFARCTION , PROBABLY OLD VERSUS POOR R-WAVE PROGRESSION ABNORMAL ECG Electronically Signed By: Pantera Wiggins MD Gallo Diehl MD ECG ORDERABLES Final Result Performing Organization Address City/[facility] Co de Phone Number [facility] * POCT glucose (05/29/2024 6:38 AM MONOGRAM OPERATOR) Glucose, POC 111 70 - 199 mg/dL Blood 05/29/2024 6:38 AM MONOGRAM OPERATOR 05/29/2024 6:38 AM MONOGRAM OPERATOR Gallo Diehl MD LAB POCT ORDERABLES - DEVICE Fi nal Result Performing Organization Address City/[facility] Co de Phone Number [facility] [address] [address] Department [place] [address] * Urinalysis reflex to microscopic and culture Urine, clean voided (05/25/2024 12:12 PM MONOGRAM OPERATOR) Color, ur Straw Yellow Clarity, ur [...] tendency for uric acid stone formation. Source: [facility] [employer] Current Interpretive Data was last revised on [...] MARIE Urine, clean voided 05/25/2024 12:12 PM MONOGRAM OPERATOR 05/25/2024 12:21 PM MONOGRAM OPERATOR Marianne Matos NP LAB MICROBIOLOGY - GENERAL ORD ERABLES Final Result VIKRAM [address] [address] Department [place] [address] * XR Foot Right 3 or More Views (05/24/2024 1:24 PM MONOGRAM OPERATOR) Anatomical Region Laterality Modality Lower Extremities, Foot Right Computed Radiography 05/24/2024 1:31 PM MONOGRAM OPERATOR Impressions 05/24/2024 1:31 PM MONOGRAM OPERATOR 1. 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 2. Apparent lesser hammertoe deformities with ankle fixed in plantar flexion on these nonweightbearing images. Electronically signed by: Maximus Murry MD Narrative 05/24/2024 1:31 PM MONOGRAM OPERATOR EXAMINATION: XR FOOT LEFT 3 OR [...] 3 or More Views (05/24/2024 1:24 PM MONOGRAM OPERATOR) Anatomical Region Laterality Modality Lower Extremities, Foot Left Computed Radiography 05/24/2024 1:31 PM MONOGRAM OPERATOR Impressions 05/24/2024 1:31 PM MONOGRAM OPERATOR 1. 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 2. Apparent lesser hammertoe deformities with ankle fixed in plantar flexion on these nonweightbearing images. Electronically signed by: Maximus Murry MD Narrative 05/24/2024 1:31 PM MONOGRAM OPERATOR EXAMINATION: XR FOOT LEFT 3 OR [...] * (ABNORMAL) Hemoglobin A1c (04/12/2018 5:45 AM MONOGRAM OPERATOR) Hemoglobin A1c % 5.9(H) 4.0 - 5.6 % 04/12/2018 6:40 AM [facility] [employer] HISTORICAL RESULTS Comment: ADA 2016 GUIDELINES: Initial Diagnostic Criteria HbA1c Result: Interpretation: <5.7% Normal 5.7-6.4% At risk for diabetes mellitus >=6.5% Consistent with diabetes mellitus Diabetes monitoring Target value (ADA Recommended) <7% 04/12/2018 5:45 AM MONOGRAM OPERATOR 04/12/2018 6:02 AM MONOGRAM OPERATOR Narrative [facility] [employer] [facility] HISTORICAL RESULTS - 04/12/2018 6:40 AM MONOGRAM OPERATOR Comment In AM Guicho Nova MD LAB BLOOD ORDERABLES Final Resul t [facility] HISTORICAL RESULTS * Lipid panel (04/12/2018 5:45 AM MONOGRAM OPERATOR) Triglycerides 124 0 - 149 mg/dL 04/12/2018 6:42 AM MONOGRAM OPERATOR [facility] HISTORICAL RESULTS Comment: National Lipid Association/NCEP Guidelines: Normal < 150 mg/dL Borderline high 150-199 mg/dL High 200-499 mg/dL Very High >=500 mg/dL Cholesterol 118 0 - 199 mg/dL 04/12/2018 6:42 AM [facility] [employer] HISTORICAL RESULTS Comment: National Lipid Association/NCEP Guidelines: Desirable < 200 mg/dL Borderline high: 200-239 mg/dL High Risk: >=240 mg/dL HDL Cholesterol 52 mg/dL 9 6:42 AM MONOGRAM OPERATOR [facility] [employer] [facility] HISTORICAL RESULTS Comment: Reference Ranges: Males: >=40 mg/dL Females: >=50 mg/dL LDL Cholesterol, Calc 41 0 - 129 mg/dL 04/12/2018 6:42 AM MONOGRAM OPERATOR [facility] [employer] HISTORICAL RESULTS Comment: National Lipid Association/NCEP Guidelines: Optimal < 100 mg/dL Near Optimal 100-129 mg/dL Borderline high 130-159 mg/dL High >=160 mg/dL Cholesterol/HDL Ratio 2.3 04/12/2018 6:42 AM [facility] [employer] HISTORICAL RESULTS Comment: Optimal < 3.5:1 High > 5:1 04/12/2018 5:45 AM MONOGRAM OPERATOR 04/12/2018 6:02 AM MONOGRAM OPERATOR Narrative [employer] HISTORICAL RESULTS - 04/12/2018 6:42 AM MONOGRAM OPERATOR Comment In AM us Guicho Nova MD LAB BLOOD ORDERABLES Final Resul t [facility] HISTORICAL RESULTS from Last 3 Months or Most Recently Relevant to Health Maintenance Insurance IDPA [facility] MEDICARE ADVANTAGE [facility] MEDICARE ADVANTAGE IDPA Advance Directives For more information, please contact: [phone] * Full Code (Latest Code Status on File) Date Activated Date Inactivated Comments 05/29/2024 10:10 AM 05/30/2024 3:37 PM Care Teams Chairman Of The Board Relationship Specialty Start Date End Date Agustin Flor MD PCP - General Internal Medicine 06/28/22 Annie Simpson MD [address] [place] [address] Consulting Physician Cardiology 05/30/24
[2024-06-28 23:11] VITALS: BP 123/84; PULSE 77; RESP 18; O2SAT 97
[2024-06-29 00:45] VITALS: BP 106/68; PULSE 62; RESP 18; O2SAT 95
[2024-06-29 01:14] LABS: Troponin I < 0.012 ng/mL (0.000-0.034)
[2024-06-29] MEDS: LACTATED RINGERS 1,000 ML 999 ML IV CONT (01:18)
[2024-06-29 01:20] VITALS: BP 94/62; PULSE 57; RESP 13; O2SAT 97
[2024-06-29 03:12] VITALS: BP 116/71; PULSE 60; RESP 12; O2SAT 96
== END 2024-06-29 03:13 | disposition home or self-care (01) ==
PROVIDERS: Emergency Provider Student in an Organized Health Care Education/Training Program; PCP Internal Medicine
DX: R07.9 Chest pain, unspecified (principal); I10 Essential (primary) hypertension; E11.9 Type 2 diabetes mellitus without complications; F41.9 Anxiety disorder, unspecified
CPT/HCPCS: 36415; 71046; 80053; 83690; 84484; 85025; 85380; 85610; 85730; 93005; 96361; 96374; 96375; 99284; J2405; J7120

== ENCOUNTER 2024-08-13 14:04 | Outpatient (CLI) | payer MEDICARE, MEDICAID, SELFPAY ==
--- NOTE | ~2024-08-13 | XR_ITS ---
CHEST RADIOGRAPH, PA AND LATERAL CLINICAL HISTORY: CHEST PAIN UNSPECIFIED . COMPARISON: 06/28/2024 TECHNIQUE: PA and lateral views of the chest. FINDINGS Loop recorder is identified to the left of midline. Atrial appendage occlusion device is also noted. The remainder of the cardiomediastinal silhouette is otherwise unremarkable. The lungs are otherwise clear. IMPRESSION: No focal infiltrate or effusion. Reviewed, dictated and finalized at location A.
--- OUTSIDE RECORDS SUMMARY | 2024-08-13 14:08 | XMS_ITS | Clinical Summary ---
Author Organization [facility] Address [address] [place] [address] Care Team Providers Care Kitchen Supervisor Name Role Phone Shiela Flor MD Primary Care Provider [phone] Shreyas Phillips MD Unavailable Bebe HernandezC Unavailable [phone] Nanda Rausch RN Unavailable Unavailable Source Comments [facility],non-owned Affiliates and Associated Physician Practices is amultiple site organization consisting of ambulatory clinics and hospital sitesin [place], [place], [place] and [place]. This disclosure is being madepursuant to the Care Everywhere program and may not contain all information available regarding this patient. Last updated 17.[facility] [employer] Allergies Active Allergy Reactions Criticality Noted Date [...] document. Alwaysverify current medications with the patient. Insulin Pen Needle 31G X 6 MM MISCIndications:Ty pe 2 diabetes mellitus with diabetic nephropathy, unspecified whether long-term insulin use (HCC) Use 1 Needle as directed 100 Each 11 10/28/19 23 Active vitamin D3 (Cholecalciferol) 25 MCG (1000 UNITS) tabletIndications: Vitamin D Deficiency Take 2 (two) tablets by mouth once daily Reasons: Vitamin D Deficiency 10/29/19 23 Active thiamine (Vitamin B-1) 100 MG tablet Take 1 (one) tablet by mouth once daily 0 10/28/19 23 Active hydrOXYzine pamoate (Vistaril) 25 MG capsule TAKE 1 CAPSULE BY MOUTH EVERY DAY IN THE MORNING 07/04/19 23 Active ziprasidone (Geodon) 80 MG capsule Take 1 (one) capsule by mouth at bedtime Hold while on levaquin Active albuterol HFA (Proventil; Ventolin; Proair) 108 (90 Base) MCG/ACT inhaler 12/01/19 23 Active Trelegy Ellipta 100-62.5-25 MCG/ACT Inhale 1 (one) puff by mouth once daily 01/25/20 23 Active B-D UF III MINI PEN NEEDLES 31G X 5 MM needle DIRECTED TO INJECT INSULIN FOUR TIMES DAILY 02/24/20 23 Active Lancets (ONETOUCH DELICA PLUS 33G EXTRA FINE LANCET) TEST TWICE DAILY 02/08 23 Active OneTouch Ultra test strip TEST BLOOD SUGAR FOUR TIMES DAILY 02/11/20 23 Active famotidine (Pepcid) 20 MG tablet Take [...] 2 (two) tablets by mouth once daily 09/05/19 24 Active terbinafine (LamISIL) 250 MG tablet Take 1 (one) tablet by mouth once daily Active senna (Senokot) 8.6 MG tablet Take by mouth once daily Active Docusate Calcium (STOOL SOFTENER PO) Take by mouth once daily Active POTASSIUM PO Take 1 tablet by mouth as directed Active doxycycline hyclate (Vibramycin) 100 MG capsule Take 1 (one) capsule by mouth every 12 hours 12/27/19 24 Active amLODIPine (Norvasc) 10 MG tablet Take 1 (one) tablet by mouth once daily Active estradiol (Estrace) 0.1 MG/GM vaginal cream Insert 1 g into the vagina at bedtime 02/02/20 24 Active atorvastatin (Lipitor) 40 MG tabletIndications: Coronary artery disease involving squaxin heart without angina pectoris, unspecified vessel or lesion type,Hyperlipidemi a, unspecified hyperlipidemia type Take 1 (one) tablet by mouth at bedtime 90 tablet 2 03/01/20 24 Active gabapentin (Neurontin) 300 MG capsuleIndications :Drug-induced polyneuropathy (HCC),Foot drop, bilateral Take 1 (one) capsule by mouth 3 times daily 90 capsule 1 03/12/20 24 Active clopidogrel (plaVIX) 75 MG tablet Take 1 (one) tablet by mouth once daily 06/01/19 25 026 Active losartan (Cozaar) 25 MG tablet Take 1 (one) tablet by mouth every morning 03/27/20 24 Active Active Problems Problem Noted Date Diagnosed [...] 06/15/2024 11:59 PM CDT Hospital Encounter [facility] [address] [place] [address] Shreyas Phillips MD Discharge Disposition: Home or Self Care 06/15/2024 Travel 06/14/2024 Orders Only [facility] - Hematology/Oncology [address] [place] [phone] Shreyas Phillips MD 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 06/12/2024 Telephone [facility] [address] [place] [address] Emeli Forrester 05/28/2024 11:00 AM AUTOMATIC SHIRRING MACHINE OPERATOR - 05/28/2024 11:59 PM AUTOMATIC SHIRRING MACHINE OPERATOR Hospital Encounter [facility] [address] [place] [phone] Shreyas Phillips MD Discharge Disposition: Home or Self Care 05/28/2024 Travel from Last 3 Months Immunizations Immunization Administration Dates Next Due COVID PFIZER BIVALENT 12Y+ 30mcg/0.3ML 01/21/2022 Covid Pfizer primary monoval ent 12+ yr 0.3mL Purple cap 01/21/2022,12/28/2020 FLU VACCINE QUAD IIV4 SPLIT 0.25 ML IM 01/25/2020,01/17/2019 INFLUENZA G3V4-04, HISTORIC VACCINE 01/21/2022 INFLUENZA VACCINE 12/26/2016,03/28/2014 INFLUENZA [...] care, and heating? Not very hard 11/20/2022 [facility] Occupat ional Health - Occupational Stress [...] in a jail (including now)? No 11/20/2022 Comments No Sex [...] Description 09/14/2024 12:40 PM CDT Appointment [facility] [address] [place] [address] Shreyas Phillips MD [address] [place] [id number] 12/26/2024 8:45 AM CDT Appointment [facility] [address] [place] [phone] Sorin Bowden, CAIO-POULTRY OFFAL WORKER [address] [place] [address] Health Maintenance Due Date Last Done Comments [...] 2023 02/09/2023, 01/21/2022, 01/21/2022, Additional history exists DEPRESSION SCREENING 03/28/2024 DIABETES - URINE PROTEIN SCREENING 03/28/2024 MEDICARE AWV CALENDAR YEAR 2024 INFLUENZA VACCINE (Season Ended) 2024 02/09/2023, 01/21/2022, 01/21/2022, Additional history exists DIABETES-SERUM CREATININE 06/15/20252024, 05/28/2024, 03/16/2024, Additional history [...] this topic Medical Devices Implanted Type Area Tool Liaison Device Identifier Shelf Expiration Date Model / Serial / Lot Port Implinfn Powerport Clrvu Argd Kika Implanted:Qty: 1 on 07/15/2022 at [facility] Right: Chest [employer] 11/26/2023 [id number] / / [id number] Description:RIJ by Milena Spivey inton Procedures Procedure Name Priority Date/Time Associated Diagnosis Comments CBC W AUTO DIFFERENTIAL STAT 06/15/2024 11:57 AM CDT 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 COMPREHENSIVE METABOLIC PANEL STAT 06/15/2024 11:57 AM CDT 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 CHEST ABDOMEN PELVIS W CONT Routine 05/28/2024 11:38 AM AUTOMATIC SHIRRING MACHINE OPERATOR History of non-Hodgkin's lymphoma CREATININE - POCT INTERFACED Routine 05/28/2024 11:26 AM AUTOMATIC SHIRRING MACHINE OPERATOR HEMOGLOBIN A1C Routine 02/03/2023 11:03 AM AUTOMATIC SHIRRING MACHINE OPERATOR Bilateral foot pain HEPATITIS C RNA QUANTITATIVE STAT 07/16/2022 12:15 PM CDT Non-Hodgkin's lymphoma, unspecified body region, unspecified non-Hodgkin lymphoma type High risk for chemotherapy-induced infectious complication from Last 3 Months or Most Recently Relevant to Health Maintenance Results * (ABNORMAL) CBC WITH DIFFERENTIAL (06/15/2024 11:57 AM CDT) [facility] WBC 4.7 4.0 - 10.7 x10E9/L 06/15/2024 12:11 PM [facility] RBC Count 4.32 3.90 - 5.20 x10E12/L 06/15/2024 12:11 PM [facility] Hemoglobin 12.2 11.9 - 15.8 g/dL 06/15/2024 12:11 PM [facility] Hematocrit 37.8 34.8 - 46.1 % 06/15/2024 12:11 PM [facility] MCV 87.5 80.0 - 98.0 fL 06/15/2024 12:11 PM [facility] MCH 28.2 26.7 - 33.6 pg 06/15/2024 12:11 PM [facility] MCHC 32.3 31.7 - 36.3 g/dL 06/15/2024 12:11 PM [facility] RDW-CV 14.3 11.3 - 14.8 % 06/15/2024 12:11 PM [facility] Platelet Count 209 150 - 420 x10E9/L 06/15/2024 12:11 PM [facility] MPV 8.9 7.8 - 11.4 fL 06/15/2024 12:11 PM [facility] Preliminary Absolute Neutrophil 3.20 1.60 - 7.50 x10E9/L 06/15/2024 12:11 PM [facility] Neutrophil % 67.6 41.0 - 74.0 % 06/15/2024 12:11 PM [facility] Lymphocyte % 20.0 17.0 - 47.0 % 06/15/2024 12:11 PM [facility] Monocyte % 8.9 3.0 - 11.0 % 06/15/2024 12:11 PM [facility] Eosinophil % 2.3 0.0 - 7.0 % 06/15/2024 12:11 PM [facility] Basophil % 0.6 0.0 - 1.6 % 06/15/2024 12:11 PM [facility] Immature Granulocytes % 0.6 0.0 - 1.0 % 06/15/2024 12:11 PM [facility] Neutrophil Absolute 3.20 1.60 - 7.50 x10E9/L 06/15/2024 12:11 PM [facility] Lymphocyte Absolute 0.95(L) 1.00 - 4.40 x10E9/L 06/15/2024 12:11 PM [facility] Monocyte Absolute 0.42 0.15 - 1.00 x10E9/L 06/15/2024 12:11 PM [facility] Eosinophil Absolute 0.11 0.00 - 0.60 x10E9/L 06/15/2024 12:11 PM [facility] Basophil Absolute 0.03 0.00 - 0.13 x10E9/L 06/15/2024 12:11 PM [facility] Blood BLOOD SPECIMEN / Unknown Venipuncture / Unknown 06/15/2024 11:57 AM CDT 06/15/2024 12:05 PM CDT us Shreyas Phillips MD LAB - HEMATOLOGY ORDERABLES Yuli l Result [address] [address], [facility] [phone] * (ABNORMAL) COMPREHENSIVE METABOLIC PANEL (06/15/2024 11:57 AM CDT) BUN 16 7 - 26 mg/dL 06/15/2024 12:30 PM [facility] Creatinine 0.86 0.56 - 0.96 mg/dL 06/15/2024 12:30 PM [facility] Sodium 143 136 - 145 mmol/L 06/15/2024 12:30 PM [facility] Potassium 4.7(H) 3.5 - 4.5 mmol/L 06/15/2024 12:30 PM [facility] Chloride 107 98 - 107 mmol/L 06/15/2024 12:30 PM [facility] CO2 28 22 - 29 mmol/L 06/15/2024 12:30 PM [facility] Glucose 73 70 - 99 mg/dL 06/15/2024 12:30 PM [facility] Calcium 10.6(H) 8.4 - 10.2 mg/dL 06/15/2024 12:30 PM [facility] Protein Total 6.9 6.0 - 8.3 g/dL 06/15/2024 12:30 PM [facility] Albumin 4.6 3.4 - 5.0 g/dL 06/15/2024 12:30 PM [facility] Bilirubin Total 0.4 0.2 - 1.2 mg/dL 06/15/2024 12:30 PM [facility] Alkaline Phosphatase 72 40 - 150 U/L 06/15/2024 12:30 PM [facility] ALT 29 5 - 55 U/L 06/15/2024 12:30 PM [facility] AST 19 5 - 34 U/L 06/15/2024 12:30 PM [facility] Anion Gap 8 6 - 16 06/15/2024 12:30 PM [facility] BUN/Creatinine Ratio 19 7 - 23 06/15/2024 12:30 PM [facility] Osmolality Calculated 296(H) 275 - 295 mOsm/kg 06/15/2024 12:30 PM [facility] Albumin/Globulin Ratio 2.0 1.1 - 2.3 06/15/2024 12:30 PM [facility] eGFR by CKD-EPI 74(L) >=90 mL/min/1.7 3 m2 06/15/2024 12:30 PM [facility] Blood BLOOD SPECIMEN / Unknown Venipuncture / Unknown 06/15/2024 11:57 AM CDT 06/15/2024 12:05 PM CDT us Shreyas Phillips MD LAB - CHEMISTRY ORDERABLES Final Result [facility] [address] [place] [address], [facility] [phone] * CT Chest Abdomen Pelvis W Cont (05/28/2024 11:38 AM AUTOMATIC SHIRRING MACHINE OPERATOR) Anatomical Region Laterality Modality Chest, Abdomen, Pelvis Computed Tomography 05/28/2024 1:52 PM AUTOMATIC SHIRRING MACHINE OPERATOR Impressions 05/28/2024 4:28 PM AUTOMATIC SHIRRING MACHINE OPERATOR Impression: 1.No evidence of lymphadenopathy in the chest, abdomen, and pelvis. 2.Redemonstrated are multiple hepatic and renal cysts which may be suggestive of polycystic kidney-liver disease. Report was dictated by Jose Lagos MD, (Integrated [facility] resident). > Dictated by Jose Lagos MD (Pyrotechnic Assembler) 05/28/2024 1:52 PM I, Nakul Bridges MD have personally reviewed and interpreted this examination/study. > Interpreting Provider: Nakul Bridges MD on 05/28/2024 4:28 PM Narrative 05/28/2024 4:28 PM AUTOMATIC SHIRRING MACHINE OPERATOR PROCEDURE: CT CHEST ABDOMEN PELVIS W CONT, DATE/TIME OF EXAM: 05/28/2024 11:39 AM, LOCATION [facility] INDICATION: Z85.72: History of non-Hodgkin's lymphoma ADDITIONAL [...] DATE/TIME OF EXAM: 05/28/2024 11:39 AM, LOCATION [facility] INDICATION: Z85.72: History of non-Hodgkin's lymphoma ADDITIONAL [...] resident). > Dictated by Jose Lagos MD (Pyrotechnic Assembler) 05/28/2024 1:52 PM I, Nakul Bridges MD have personally reviewed and interpreted this examination/study. > Interpreting Provider: Nakul Bridges MD on 05/28/2024 4:28 PM us Shreyas Phillips MD CT ORDERABLES Final Result * CREATININE - POCT INTERFACED (05/28/2024 11:26 AM [facility]) Creatinine POCT 0.72 0.30 - 1.30 mg/dL 05/28/2024 11:30 AM [facility] eGFR >90 >=90 mL/min/1.7 3 m2 05/28/2024 11:30 AM [facility] Blood BLOOD SPECIMEN / Unknown 05/28/2024 11:26 AM AUTOMATIC SHIRRING MACHINE OPERATOR 05/28/2024 11:30 AM [facility] us Shreyas Phillips MD LAB - POINT OF CARE ORDERABLES F inal Result [address] [address], [facility] [phone] * HEMOGLOBIN A1C (02/03/2023 11:03 AM [facility]) Hemoglobin A1c 5.4 <=5.6 % 02/03/2023 3:39 PM [facility] Estimated Average Glucose 108 mg/dL 02/03/2023 3:39 PM [facility] Comment: HbA1c Interpretation: Normal : < 5.7% Pre-diabetes: 5.7-6.4% Diabetes: Equal to or greater than 6.5% Test results diagnostic of diabetes should be repeated for confirmation. Treatment target values recommended by ADA and other clinical organizations should be used to evaluate metabolic control in patients. Reference: [place] [employer], Standards of Care in Diabetes -2020 In patients 70 years and older consider HbA1c target range of 7.0-7.5% (Reference: Vishal Davis et al. JAMDA. 2012) The Sebia assay for the measurement of HbA1c is a National Glycohemoglobin Standardization Program (NGSP) certified method. Blood BLOOD SPECIMEN / Unknown Lab Venipuncture / Unknown 02/03/2023 11:03 AM AUTOMATIC SHIRRING MACHINE OPERATOR 02/03/2023 11:29 AM AUTOMATIC SHIRRING MACHINE OPERATOR Mohini Sky MD LAB - CHEMISTRY ORDERABLES F inal Result [facility] [address] [place] [address], [place] [phone] * HEPATITIS C RNA QUANTITATIVE (07/16/2022 12:15 PM CDT) Hepatitis C RNA PCR, Interp Not detected Not detected 07/19/2022 1:08 PM CDT [facility] Blood BLOOD SPECIMEN / Unknown Lab Venipuncture / Unknown 07/16/2022 12:15 PM CDT 07/16/2022 12:25 PM CDT Narrative [facility] - 07/19/2022 1:08 PM CDT The Hepatitis C viral (HCV) RNA analysis utilized a serum sample, real-time reverse critical care paramedic PCR, and is reported as Not Detected, [...] the isolation of HCV RNA with reverse critical care paramedic of genomic HCV RNA followed by real-time PCR in the presence of an unrelated RNA internal control. The internal control ensures that RNA is isolated, and that no general significant inhibitors of the RT-PCR process are present. The analysis was performed using a U.S. FDA approved test methodology. Shreyas Phillips MD LAB - CHEMISTRY ORDERABLES Final Result [facility] [address] [place] [address], [facility] [phone] from Last 3 Months or Most Recently Relevant to Health Maintenance Insurance MEDICAID - [place] Member Subscriber Plan / Payer ([facility] [id number]|2024-08-13 14:09:00|2024-08-13 14:08:00|XMS_ITS|MANDEEP BLACK|External Medical Summaries|[phone]|" Data Portability Created on: August 13, 2024 Paula Lomeli .[id number] : 1960 Sex: Female Author Organization [place] [facility], Main Office Address [address] [place] [address] Care Team Providers Care Kitchen Supervisor Name Role Phone SHIELA FLOR Primary Care Provider SHIEAL FLOR Referring Provider [phone] Assessment Encounter Date Assessment Date Assessment LastModified by Organization Details LastModified Time 09/21/2022 09/21/2022 Will cut her long-acting insulin in half will cut her mealtime insulin in half she will follow-up with me in 2 months Levemir will be 10 units Novolin will be 5 unit Not available 09/21/2022 22:52:16 11/30/2022 11/30/2022 [address]ing melinaanibal blood pressure diabetes hyperlipidemia discussed follow-up 3 month [email or web address] Not available 11/30/2022 22:36:44 02/01/2023 02/01/2023 Podiatry She can see Ortho as well Continue with her medicines for her hyperlipidemia diabetes and hypertension Follow-up with me in a month [email or web address] Not available 02/02/2023 21:20:40 03/07/2023 03/07/2023 Given her previous cardiac history will get her set up with Cardiology for surgical clearance blood pressure appears to be well-controlled at 110/62 blood work will also be ascertained for biochemical management of disease processes of medications follow-up with me in about 3 months [email or web address] Not available 03/28/2023 18:10:16 07/30/2024 07/30/2024 64-year-old patient presents today with right knee pain that has been going on for 3 months. She is wheelchair-bound and states she has to transfer from the bed to the chair often. She thinks she twisting her knee doing this. She has movement of her legs and uses them to walk herself in the chair. This movement has become painful for her. She rates her pain today 3/10. For treatment she has tried a brace, Aspercreme, and Advil, which sometimes help. She has a history of diabetes and non-Hodgkin's lymphoma which has since resolved after chemo. She lives at home with her sister who cares for her. Review of systems per patient questionnaire Imaging: X-rays reviewed show no acute bony abnormality or fracture. Mild degenerative osteoarthritic changes with minimal joint space narrowing throughout. Physical exam: Patient presents in a wheelchair. She has 1+ effusion on the lateral side of the knee. Tenderness with palpitation over this area. Range of motion 0 to 110. Pain with deep flexion. Positive Christel's. Stable ligaments. Sensation intact throughout. We discussed it is possible she tweaked her meniscus during a transfer. We will start with physical therapy exercises. Her and her sister request home therapy as it is difficult for him to get out of the house. We discussed that she can continue to take Advil as needed. Due to the pain with ambulating herself she is interested in a cortisone injection. That was given today without issue. We discussed possible effect on blood sugar with the cortisone injection, her and her sister state understanding. We will see her back in 4-6 weeks after therapy to check her progress. They are in agreement with this plan. [email or web address] Not available 07/30/2024 11:32:53 Plan of Treatment Reminders Order Date Submit Date Provider Last Modified By Organization Details Last Modified Time Details Appointments Any 5 2024 10:35A M Tin Burnette MD Not available Not available Not available Lab CBC w/ auto diff 2022 023 [facility] (Lab), [address] [place], [address], 03/07/2023 17:56:00 CMP, serum or plasma 2022 023 [facility] (Lab), [address] [place], [address], 03/07/2023 19:22:35 lipid panel, serum 2022 023 [facility] (Lab), [address] [place], [address], 03/07/2023 19:22:40 glycohemo globin, total, blood 2022 023 [facility] (Lab), [address] [place], [address], 03/07/2023 19:20:54 Referral physical therapist referral - Please schedule apt for R knee. Thanks 2024 025 [facility], [address] [place], [address], 08/01/2024 15:32:40 cardiolog ist referral 2022 023 [email or web address] Annie Simpson MD, [address] [facility], [facility] [address], [place], [address], 12/15/2023 19:10:44 Procedures injection /aspirati on joint/bur sa (PROC) 2024 025 [email or web address] 1 In-Office Order, Internal Use Only DO Not Attach Compendium DO Not Attach Compendium, Do Not Delete/merge, [id number] 07/30/2024 11:11:06 Surgeries None recorded. Imaging None recorded. Medication Orders bupivacai ne HCl 0.5 % (5 mg/mL) injection solution 2024 025 [email or web address] [id number], [address] [facility], [place], [place], [phone], 07/30/2024 11:52:41 Kenalog 10 mg/mL suspensio n for injection 2024 025 [email or web address] [id number], [address], [place], [place], [phone], 07/30/2024 11:52:41 Patient TargetsNo targets recorded. Patient InstructionsNo instructions recorded. Reason for Referral [facility] Referral for Pr e-surgery evaluation Referring Physician: Shiela Flor, Internal Medicine, Encounter Date: 03/07/2023 Physical Therapist Referral for Osteoarthritis of right knee joint R knee Please schedule apt for R knee. Thanks Referring Physician: Dawna Molina, Orthopedic Surgery, Encounter Date: 07/30/2024 Results Created Date Observation Date Name Description Value Unit Range Abnormal Flag Note LastModifiedBy Organization Detail LastModifiedTime 03/07/2003/07/2023 CBC/C OMPLE TE BLD COUNT W/DIF F white blood cells 5.0 x10'3 /uL 4.2-10 .8 Not Available [facility] (Lab) [address] [place], [address], 03/07/2023 17:56:00 03/07/20 23 03/07/2023 CBC/C OMPLE TE BLD COUNT W/DIF F red blood cells 4.22 x10'6 /uL 3.80-5 .20 Not Available [facility] (Lab) [address] [place], [address], 03/07/2023 17:56:00 03/07/20 23 03/07/2023 CBC/C OMPLE TE BLD COUNT W/DIF F hemoglobin 12.6 g/dL 12.0-1 5.6 Not Available [facility] (Lab) [address] [place], [address], 03/07/2023 17:56:00 03/07/20 23 03/07/2023 CBC/C OMPLE TE BLD COUNT W/DIF F hematocrit 40.4 % 35.7-4 5.7 Not Available [facility] (Lab) [address] [place], [address], 03/07/2023 17:56:00 03/07/20 23 03/07/2023 CBC/C OMPLE TE BLD COUNT W/DIF F mean red cell volume 95.7 fL 82.0-9 9.0 Not Available [facility] (Lab) [address] [facility] [place], [address], 03/07/2023 17:56:00 03/07/20 23 03/07/2023 CBC/C OMPLE TE BLD COUNT W/DIF F mean red cell hemoglobin 29.9 pg 27.0-3 3.0 Not Available [facility] (Lab) [address] [place], [address], 03/07/2023 17:56:00 03/07/20 23 03/07/2023 CBC/C OMPLE TE BLD COUNT W/DIF F mean RBC HGB concentratio n 31.2 g/dL 31.0-3 6.0 Not Available [facility] (Lab) [address] [place], [address], 03/07/2023 17:56:00 03/07/20 23 03/07/2023 CBC/C OMPLE TE BLD COUNT W/DIF F red cell distribution width 14.4 % 11.8-1 5.5 Not Available [facility] (Lab) [address] [place], [address], 03/07/2023 17:56:00 03/07/20 23 03/07/2023 CBC/C OMPLE TE BLD COUNT W/DIF F platelets 204 x10'3 /uL 150-40 0 Not Available [facility] (Lab) [address] [place], [address], 03/07/2023 17:56:00 03/07/20 23 03/07/2023 CBC/C OMPLE TE BLD COUNT W/DIF F mean platelet volume 9.9 fL 9.0-12 .4 Not Available [facility] (Lab) [address] [place], [address], 03/07/2023 17:56:00 03/07/20 23 03/07/2023 CBC/C OMPLE TE BLD COUNT W/DIF F neutrophils 71.4 % 39.0-7 2.0 Not Available [facility] (Lab) [address] [place], [address], 03/07/2023 17:56:00 03/07/2003/07/2023 CBC/C OMPLE TE BLD COUNT W/DIF F lymphocytes 14.7 % 16.0-4 7.0 low Not Available [facility] (Lab) [address] [place], [address], 03/07/2023 17:56:00 03/07/20 23 03/07/2023 CBC/C OMPLE TE BLD COUNT W/DIF F monocytes 10.7 % 5.0-12 .0 Not Available [facility] (Lab) [address] [place], [address], 03/07/2023 17:56:00 03/07/20 23 03/07/2023 CBC/C OMPLE TE BLD COUNT W/DIF F eosinophils 2.0 % 1.0-7. 0 Not Available [facility] (Lab) [address] [place], [address], 03/07/2023 17:56:00 03/07/20 23 03/07/2023 CBC/C OMPLE TE BLD COUNT W/DIF F basophils 0.8 % 0.0-2. 0 Not Available [facility] (Lab) [address] [place], [address], 03/07/2023 17:56:00 03/07/20 23 03/07/2023 CBC/C OMPLE TE BLD COUNT W/DIF F immature granulocytes 0.4 % 0.00-0 .50 Not Available [facility] (Lab) [address] [place], [address], 03/07/2023 17:56:00 03/07/20 23 03/07/2023 CBC/C OMPLE TE BLD COUNT W/DIF F neutrophils, absolute count 3.54 x10'3 /uL 1.5-8. 0 Not Available [facility] (Lab) [address] [place], [address], 03/07/2023 17:56:00 03/07/20 23 03/07/2023 CBC/C OMPLE TE BLD COUNT W/DIF F lymphocytes, absolute count 0.73 x10'3 /uL 1.07-3 .43 low Not Available [facility] (Lab) [address] [place], [address], 03/07/2023 17:56:00 03/07/20 23 03/07/2023 CBC/C OMPLE TE BLD COUNT W/DIF F monocytes, absolute count 0.53 x10'3 /uL 0.29-0 .99 Not Available [facility] (Lab) [address] [place], [address], 03/07/2023 17:56:00 03/07/20 23 03/07/2023 CBC/C OMPLE TE BLD COUNT W/DIF F eosinophils, absolute count 0.10 x10'3 /uL 0.02-0 .53 Not Available [facility] (Lab) [address] [place], [address], 03/07/2023 17:56:00 03/07/20 23 03/07/2023 CBC/C OMPLE TE BLD COUNT W/DIF F basophils, absolute count 0.04 x10'3 /uL 0.01-0 .08 Not Available [facility] (Lab) [address] [place], [address], 03/07/2023 17:56:00 03/07/20 23 03/07/2023 CBC/C OMPLE TE BLD COUNT W/DIF F immature granulocytes ,absolute 0.02 x10'3 /uL 0.00-0 .05 Not Available [facility] (Lab) [address] [place], [address], 03/07/2023 17:56:00 03/07/20 23 03/07/2023 CBC/C OMPLE TE BLD COUNT W/DIF F nucleated red blood cells 0.0 % -0 Not Available [facility] (Lab) [address] [place], [address], 03/07/2023 17:56:00 03/07/20 23 03/07/2023 CBC/C OMPLE TE BLD COUNT W/DIF F NRBC# 0.00 x10'3 /uL Not Available [facility] (Lab) [address] [place], [address], 03/07/2023 17:56:00 03/07/20 23 03/07/2023 HEMOG LOBIN A1C HA1C 6.1 % 4.0-6. 0 high Diabe ash Scree luis fernando Crite jacqueline: <5.7% Consi stent with absen ce of diabe ash 5.7-6 .4% Consi stent with incre ased risk for diabe ash (pred iabet es) >OR=6 .5% Consi stent with diabe ash REFER ENCE: Diabe ash Care 2016, 39(Mejia ppl.1 ):s13 -s22 Not Available [facility] (Lab) [address] [place], [address], 03/07/2023 19:20:54 03/07/20 23 03/07/2023 COMPR EHENS ROBEL METAB OLIC PANEL sodium 141 mmol/ L 137-14 5 Not Available [facility] (Lab) [address] [place], [address], 03/07/2023 19:22:35 03/07/20 23 03/07/2023 COMPR EHENS ROBEL METAB OLIC PANEL potassium 3.8 mmol/ L 3.5-5. 1 Not Available [facility] (Lab) [address] [place], [address], 03/07/2023 19:22:35 03/07/20 23 03/07/2023 COMPR EHENS ROBEL METAB OLIC PANEL chloride 103 mmol/ L 98-107 Not Available [facility] (Lab) [address] [place], [address], 03/07/2023 19:22:35 03/07/20 23 03/07/2023 COMPR EHENS ROBEL METAB OLIC PANEL carbon dioxide 30 mmol/ L 22-30 Not Available [facility] (Lab) [address] [place], [address], 03/07/2023 19:22:35 03/07/20 23 03/07/2023 COMPR EHENS ROBEL METAB OLIC PANEL anion gap 11.8 mmol/ L 14-22 low Not Available [facility] (Lab) [address] [place], [address], 03/07/2023 19:22:35 03/07/20 23 03/07/2023 COMPR EHENS ROBEL METAB OLIC PANEL glucose 84 mg/dL 70-99 Not Available [facility] (Lab) [address] [place], [address], 03/07/2023 19:22:35 03/07/20 23 03/07/2023 COMPR EHENS ROBEL METAB OLIC PANEL BUN 25 mg/dL 8-19 high Not Available [facility] (Lab) [address] [place], [address], 03/07/2023 19:22:35 03/07/20 23 03/07/2023 COMPR EHENS ROBEL METAB OLIC PANEL creatinine 0.77 mg/dL 0.66-1 .25 Not Available [facility] (Lab) [address] [place], [address], 03/07/2023 19:22:35 03/07/20 23 03/07/2023 COMPR EHENS ROBEL METAB OLIC PANEL GFR >60 Refer ence Range : [place] ge GFR Healt hy Adult : >60 [...] calcu lator is avail able on the [facility] websi te: https :[email or web address] w.india field.o rg/pr adrianess ional s/kdo qi/gf r_cal culat or Not Available [facility] (Lab) [address] [place], [address], 03/07/2023 19:22:35 03/07/2003/07/2023 COMPR EHENS ROBEL METAB OLIC PANEL alkaline phosphatase 56 U/L 38-126 Not Available [facility] (Lab) [address] [place], [address], 03/07/2023 19:22:35 03/07/20 23 03/07/2023 COMPR EHENS ROBEL METAB OLIC PANEL alanine aminotransfe rase 27 U/L 0-35 Not Available [facility] (Lab) [address] [place], [address], 03/07/2023 19:22:35 03/07/20 23 03/07/2023 COMPR EHENS ROBEL METAB OLIC PANEL aspartate aminotransfe rase 25 U/L 15-37 Not Available [facility] (Lab) [address] [place], [address], 03/07/2023 19:22:35 03/07/20 23 03/07/2023 COMPR EHENS ROBEL METAB OLIC PANEL bilirubin, total 0.20 mg/dL 0.20-1 .30 Not Available [facility] (Lab) [address] [place], [address], 03/07/2023 19:22:35 03/07/20 23 03/07/2023 COMPR EHENS ROBEL METAB OLIC PANEL calcium 9.8 mg/dL 8.4-10 .2 Not Available [facility] (Lab) [address] [place], [address], 03/07/2023 19:22:35 03/07/20 23 03/07/2023 COMPR EHENS ROBEL METAB OLIC PANEL total protein 6.3 g/dL 6.3-8. 2 Not Available [facility] (Lab) [address] [place], [address], 03/07/2023 19:22:35 03/07/20 23 03/07/2023 COMPR EHENS ROBEL METAB OLIC PANEL albumin 4.1 g/dL 3.0-4. 4 Not Available [facility] (Lab) [address] [place], [address], 03/07/2023 19:22:35 03/07/20 23 03/07/2023 COMPR EHENS ROBEL METAB OLIC PANEL globulin 2.2 g/dL 2.6-4. 2 low Not Available [facility] (Lab) [address] [place], [address], 03/07/2023 19:22:35 03/07/20 23 03/07/2023 COMPR EHENS ROBEL METAB OLIC PANEL A/G ratio 1.9 ratio 1.0-2. 0 Not Available [facility] (Lab) [address] [place], [address], 03/07/2023 19:22:35 03/07/20 23 03/07/2023 LIPID PANEL cholesterol 125 mg/dL 140-19 9 low NIH ITZEL NSUS RECOM MENDA TION FOR CEASAR STERO L: ADULT CHILD LOW RISK: <200 <170 BORDE RLINE : <200- 239 ----- HIGH RISK: >240 >200 Not Available [facility] (Lab) [address] [place], [address], 03/07/2023 19:22:40 03/07/20 23 03/07/2023 LIPID PANEL triglyceride s 273 mg/dL 0-150 high NIH ITZEL NSUS REPOR T RECOM MENDA TION FOR TRIGL YCERI GIAN: ADULT CHILD LOW RISK: <150 ----- BODER LINE: 150-1 99 ----- HIGH RISK: >200 ----- Not Available [facility] (Lab) [address] [place], [address], 03/07/2023 19:22:40 03/07/20 23 03/07/2023 LIPID PANEL HDL cholesterol 63 mg/dL 40- Not Available [facility] (Lab) [address] [place] [address], [address], 03/07/2023 19:22:40 03/07/20 23 03/07/2023 LIPID PANEL [...] WILL NOT BE REPOR ARTHUR. Not Available [facility] (Lab) [address] [facility], [place], [address], 03/07/2023 19:22:40 09/17/19 23 09/16/2022 XR, chest No observ ation record ed. [address] [facility] [address], [place], [address], 09/23/2022 10:00:00 Result Notes None recorded. Problems Name Problem SNOMED Code Status Onset Date Resolution Date Notes Provider Name and Address Organization Details Recorded Time Cellulitis of foot 262839169 Active 2021 Not Available [facility] 4 12:02:15 Computed tomography result abnormal 372361231 Active 2022 Not Available [facility] 4 12:02:15 Postoperat robel care Active 2021 Not Available [facility] 4 12:02:15 Chronic obstructiv e pulmonary disease 67645581 Active 2016 Not Available [facility] 4 12:02:15 CT of abdomen abnormal 6865711974922 9107 Active 2022 Not Available [facility] 4 12:02:15 Cirrhosis of liver 11635723 Active 2016 Not Available [facility] 4 12:02:15 Neuropathy due to diabetes mellitus 028861957 Active 2020 Not Available [facility] 4 12:02:15 Low back pain 655626275 Active 2021 Not Available [facility] 4 12:02:15 Chest pain 05422164 Active 2022 Not Available [facility] 4 12:02:15 Type 2 diabetes mellitus without complicati on 956411139 Active 2021 Not Available [facility] 4 12:02:15 Former heavy tobacco smoker 9452646118367 00 Active 2016 Not Available [facility] 4 12:02:15 Acute urinary tract infection 694347231 Active 2021 Not Available [facility] 4 12:02:15 Type 2 diabetes mellitus 89521715 Active 2020 Not Available [facility] 4 12:02:15 Cough 24369146 Active 2021 Not Available [facility] 4 12:02:15 Upper respirator y infection 29070876 Active 2021 Not Available [facility] 4 12:02:15 Hyperlipid emia 29526192 Active 2020 Not Available [facility] 4 12:02:15 Essential hypertensi on 62488017 Active 2020 Not Available [facility] 4 12:02:15 Otitis media 14682003 Active 2021 Not Available [facility] 4 12:02:15 Urinary tract infectious disease 65105368 Active 2021 Not Available [facility] 4 12:02:15 Closed fracture of fifth metatarsal bone 38990466 Active 2020 Not Available [facility] 4 12:02:15 Mental disorder 80785847 Active 2020 Not Available [facility] 4 12:02:15 COVID-19 836959548 Active 2021 Not Available [facility] 4 12:02:16 Hyponatrem ia 77979389 Active 2021 Not Available [facility] 4 12:02:16 Dysuria 75013260 Active 2022 Not Available [facility] 4 12:02:15 Flank pain 457439899 Active 2022 Not Available [facility] 4 12:02:15 Increased frequency of urination 380441084 Active 2022 Not Available [facility] 4 12:02:15 Urge incontinen ce of urine 13381510 Active 2022 Not Available [facility] 4 12:02:16 Dyspnea 965820922 Active 2022 Not Available [facility] 4 12:02:15 Nausea and vomiting 63864620 Active 2022 Not Available [facility] 4 12:02:15 Hydrourete r 44675279 Active 2022 Not Available [facility] 4 12:02:15 High grade B-cell lymphoma 748771568 Active 2022 Not Available [facility] 4 12:02:15 Uncontroll ed type 2 diabetes mellitus 652807758 Active 2022 Not Available [facility] 4 12:02:15 Pain of right knee joint 7172027990619 00 Active 2024 K[place] Ocampo, [place] [employer] [facility] 5 10:53:48 Osteoarthr itis of right knee joint 3019131985915 00 Active 2024 Dawna Molina NP [address] [facility], [address], [place], [address] , [facility] [employer] [facility] 5 15:26:32 Notes:Medical History: Depre ssion Rhinitis with postnasal drip Eosinophils 120/uL IgE 344 IU/mL Alpha-1 antitrypsin PiMM 149 mg% Mild COPD RUL 3 & 4 mm nodules since 2017 Granulomatous disease (chest, liver, spleen) Hypertension Hyperlipidemia T2DM CAD HELLEN Right hepatic cyst Bilateral renal cysts Thoracic DDD Left foot fracture Procedure History: T&A 1974 Immunization History: J&J Covid 06/02/2020 Some problems listed in Document: #[id number] could not be added to this patient's chart. Please review this document and add these problems to the patient's chart manually as needed. Problem Notes None recorded. Procedures Surgical History Date Name Laterality Status Provider Name and Address Organization Details Recorded Time 07/31/19 25 Ortho - Cortisone Injection completed Dawna Molina NP [address], [address], [place], [address], [facility] [employer] [facility] 07/30/2024 11:15:39 04/17/19 Foot Surgery completed Not Available [facility] 023 05:55:53 Tonsillectomy completed Not Available [facility] 05/26/2022 05:55:53 Hysterectomy completed Not Available [facility] 05/26/2022 05:55:53 Imaging Results Imaging Date Name Status LastModified by Organiz ation Details LastModified Time 09/16/2022 XR, chest completed [email or web address] [facility] [address] [facility] [address], [address], 09/23/2022 10:00:00 Procedure Notes None recorded. Medical Equipment None Reported. Allergies Allergen ID Allergen Name Allergen Category Reaction Reaction Severity Criticality Documentation Date Start Date Code Code System Note Provider Name and Address Organization Details Recorded Time 94097 hydrochlo rothiazid e medicatio n Not available Not available Not available 05/26/2022 5487 RxNorm Not Available [facility] 3 06:08:25 20400 clonazepa m medicatio n Not available Not available Not available 05/26/2022 2598 RxNorm uncon troll ed muscl e movem ent Not Available [facility] 3 06:08:25 24655 chlorthal idone medicatio n Not available Not available Not available 05/26/2022 2409 RxNorm Not Available [facility] 3 06:08:25 08453 aspirin medicatio n eye swelling severe Not available 05/26/2022 1191 RxNorm Not Available [facility] 3 06:08:25 80406 azithromy john medicatio n facial swelling Not available Not available 05/26/2022 70943 RxNorm tongu e swell ing Not Available [facility] 3 06:08:25 92248 cefdinir medicatio n rash Not available Not available 04/21/20232023 18958 RxNorm Quin Vieira RN null, [facility] [employer] [employer] 4 16:44:05 Medications Name Sig Start Date [...] completed Not Available Not Available Not Available doxycycli ne hyclate 100 mg capsule TAKE 1 CAPSULE BY MOUTH TWICE DAILY FOR 21 DAYS active Not Available Not Available No t Available albuterol sulfate 2.5 mg/3 mL (0.083 %) solution for nebulizat ion USE 3 ML VIA NEBULIZE R THREE TIMES DAILY DIRECTED active Not Available Not Available No t Available enalapril maleate 5 mg tablet TAKE 1 TABLET BY MOUTH TWICE DAILY 09/21 completed Not Available Not Available Not Available azithromy john 250 mg tablet TAKE 2 TABLETS BY MOUTH FOR 1 DAY THEN TAKE 1 TABLET BY MOUTH DAILY FOR 4 DAYS DIRECTED active Not Available Not Available No t Available pravastat in 40 mg tablet TAKE 1 TABLET BY MOUTH EVERY DAY AFTER DINNER 11/30 completed Not Available Not Available Not Available fluconazo le 150 mg tablet TAKE 1 TABLET BY MOUTH EVERY DAY FOR 3 DAYS active Not Available Not Available No t Available benzonata te 200 mg capsule Take [...] TAKE 1 TABLET BY MOUTH TWICE DAILY FOR 5 DAYS DIRECTED active Not Available Not Available No t Available ondansetr on HCl 4 mg tablet Take 1 tablet twice a day by oral route as needed. 11/30 completed Not Available Not Available Not Available bupivacai ne HCl 0.5 % (5 mg/mL) injection solution Take 4 mL by injectio n
--- OUTSIDE RECORDS SUMMARY | 2024-08-13 14:08 | XMS_ITS | Encounter Summary ---
Author Organization [facility] Address [address] [place] [address] Care Team Providers Care Medical Insurance Collector Name Role Phone Agustin Flor MD Primary Care Provider [phone] Encounter Details Date Type Department Care Team (Latest Contact Info) Description 10/27/2022 12:18 PM CDT Hospital Encounter [address] [address] Claudia Plascencia MD [address] [place] [address] [place] [phone] [employer] Social History Tobacco Use Types [...] care, and heating? Not very hard 11/20/2022 Citizen Of [place] [facility] - Occupational Stress [...] a senior living (including now)? No 11/20/2022 Comments No Sex and Gender Information Value Date Recorded Sex Assigned at Not on file Legal Sex Female 2:13 PM CDT Gender Identity Female 08/19/2023 1:35 PM CDT Sexual Orientation Not on file documented as of this encounter Functional Status * Question Answer Date of Assessment Author Q1: How often do you have a drink containing alcohol? Never 11/20/2022 8:40 AM [facility] Amber Hurst RN Q2: How many drinks containing alcohol do you have on a typical day when you are drinking? Patient does not drink 11/20/2022 8:40 AM [facility] Amber Hurst, RN Q3: How often do you have six or more drinks on one occasion? Never 11/20/2022 8:40 AM [facility] Amber Hurst RN * Audit-C Score Answer Date of Assessment Author 0 11/20/2022 8:40 AM CDT Awa Hurst RN * Is person deaf or have serious hearing difficulty? Answer Date of Assessment Author Yes 10/27/2022 6:13 PM CDT Enrrique Molina RN * Is person blind or have serious difficulty seeing? Answer Date of Assessment Author No 10/27/2022 6:13 PM [facility] Enrrique Molina RN * Does person have serious difficulty walking/climbing stairs? Answer Date of Assessment Author Yes 10/27/2022 6:13 PM CDT Enrrique Molina RN * Does person have difficulty dressing/bathing? Answer Date of Assessment Author Yes 10/27/2022 6:13 PM [facility] Enrrique Molina RN * Does person have difficulty doing [...] Info) Description 09/14/2024 12:40 PM CDT Appointment [facility] [address] [place] [address] Shreyas Phillips MD [address] [place] [phone] 12/26/2024 8:45 AM CDT Appointment [facility] [address] [place] [phone] Sorin Bowden, NETWORK ENGINEER ADMINISTRATOR-CLERK [employer] [address] [facility] [address] [place] [address] documented as of this encounter Visit Diagnoses Not on filedocumented in this encounter Care Teams Medical Insurance Collector Relationship Specialty Start Date End Date Agustin Flor MD [address] [place] [address] PCP - General General Medicine 06/28/22 documented as of this encounter
--- OUTSIDE RECORDS SUMMARY | 2024-08-13 14:08 | XMS_ITS | Encounter Summary ---
Author Organization [facility] Address [address] [place] [address] Care Team Providers Care Supply Aide Name Role Phone Agustin Flor MD Primary Care Provider [phone] Mabel Del Real RN Unavailable Unavailable Shreyas Phillips MD Unavailable Bebe Hernandez PA-C Unavailable Nanda Rausch RN Unavailable Unavailable Encounter Details Date Type Department Care Team (Late Contact Info) Description 06/10/2022 Lab Requisition [facility] Care Pathology Lab [address] [place] [address] Chris Julian MD [address] [address] Illness, unspecified Social History Tobacco Use Types Packs/Day Years Used Date Smoking Tobacco: Never Assessed Comments Unknown Sex and Gender Information Value Date Recorded Sex Assigned at Not on file Legal Sex Female 2:13 PM CDT Gender Identity Female 08/19/2023 1:35 PM CDT Sexual Orientation Not on file documented as of this encounter Plan of Treatment Upcoming Encounters Date Type Department Care Team (Late Contact Info) Description 09/14/2024 12:40 PM CDT Appointment [facility] [address] [place] [address] [place]reyas [place] [address] [place] [address] 12/26/2024 8:45 AM CDT Appointment [facility] [address] [place] [phone] Sorin Bowden, SLAB MILLER OPERATOR-STRATEGIC COMMUNICATIONS MANAGER [address] [facility] [address] [place] [address] documented as of this encounter Procedures Procedure Name Priority Date/Time Associated Diagnosis Comments PATHOLOGY TISSUE Routine 06/08/2022 11:1 9 AM CDT Illness, unspecified documented in this encounter Results * PATHOLOGY TISSUE (06/08/2022 11:19 AM CDT) Case Report Surgical Pathology Report Case: [id number] Authorizing Provider: Chris Julian MD Collected: 06/08/2022 11:19 AM Ordering Location: [facility] Pathology Lab Received: 06/10/2022 11:21 AM Pathologist: Reshma Singh MD Specimen: Lymph Node Biopsy, CT Biopsy Left Lymph Node 06/11/2022 10:47 AM CDT [facility] PATHOLOGY LAB Final Diagnosis Lymph node, left paracolic, needle core biopsy: - Limited specimen with involvement by a YF85-gdwgyqli mature B-cell lymphoma - See description and comment 06/11/2022 10:47 AM CDT [facility] PATHOLOGY LAB at 1047 CDT Microscopic Description and Comment Sections show thin [...] Ki-67 is estimated at 50%. [facility] ([facility], [address], [place] [address]) is reported to show an atypical UF87-dfanvyqu population that lacks surface immunoglobulin light chain expression. In summary, the left paracolic lymph node specimen is involved by a ZC78-ddljjoai mature B-cell lymphoma. Given the limited nature of the specimen, the differential diagnosis includes diffuse large B-cell lymphoma, a high grade B-cell lymphoma, and follicular lymphoma. FISH testing for abnormalities of MYC, BCL-2, and BCL-6 is recommended as a next step if sufficient [facility]. There is insufficient residual tissue present in [...] Clinical correlation is advised. 06/11/2022 10:47 AM [facility] Clinical History Retroperitoneal lymphadenopathy. 06/11/2022 10:47 AM [facility] Materials Received Received for initial diagnosis are two slides and one block (A1) labeled [id number] along with a copy of the outside pathology report. The materials originate from [facility]. All original materials are returned to the referring institution, along with a copy of our final report. 06/11/2022 10:47 AM [facility] Disclaimer The performance characteristics of all immunohistochemical and indirect immunofluorescence stains (if any) cited in this report were determined by the Histopathology Laboratory of [facility]. Some of these tests were developed by [...] the attending (teaching) pathologist. 06/11/2022 10:47 AM [facility] Embedded Images 06/11/2022 10:47 AM CDT [facility] Pathology/Cytolo gy BIOPSY OF LYMPH NODE / Unknown 06/08/2022 11:19 AM CDT 06/10/2022 11:21 AM CDT Chris Julian MD LAB - PATHOLOGY/CYTOLOGY ORDERAB LES Final Result [facility] [address] [facility] [place] [address], [facility] [phone] documented in this encounter Visit Diagnoses Diagnosis Illness, unspecified documented in this encounter Care Teams Supply Aide Relationship Specialty Start Date End Date Agustin Flor MD [address] [place] [address] PCP - General General Medicine 06/28/22 Mabel Del Real, RN Registered Nurse Orthopedic Surgery 02/28/23 03/27/24 [place] [address] [place] [phone] Physician Hematology and Oncology 03/23/23 Bebe Hernandez, PA-C [address] [place] [address] Physician Tenant Relations Coordinator Physician Tenant Relations Coordinator 03/23/23 Nanda Rausch, RN Registered Nurse 03/23/23 documented as of this encounter
--- OUTSIDE RECORDS SUMMARY | 2024-08-13 14:08 | XMS_ITS ---
Author Organization [facility] Address [address] [facility] [place] [address] Care Team Providers Care Carbon Dioxide Operator Name Role Phone Agustin Flor MD Primary Care Provider [phone] Shreyas Phillips MD Unavailable Bebe HernandezC Unavailable [phone] Nanda Rausch RN Unavailable Unavailable Active Problems [...] disease) 03/28/2018 Overview (10/14/2022): s/p stents Current Treatment and Therapy Plans No current plan information found. Past Treatment and Therapy Plans ONCOLOGY TREATMENT Plan Name Start Date Discontinue Date Treatment Medications Discontinue Reason Plan Provider Cycles IP LYMPHOMA (RITUXIMAB ETOPOSIDE DOXORUBICIN VINCRISTINE CYCLOPHOSPHAMIDE PREDNISONE) (DA-R-EPOCH) 07/23/1904/26/2024 cycloPHOSphamide (Cytoxan) infusion (200 mg/mL vial)riTUXimab-abb s (Truxima) RAPID infusionriTUXimab- abbs (Truxima) STANDARD infusionvinCRIStin u-DPIQebefgsu-sxsw oside CIVI Therapy Complete Shreyas Phillips MD 6 of 6 cycles started THERAPY PLAN Plan Name Start Date Discontinue Date Treatment Medications Discontinue Reason Plan Provider Hematology plan 12/17/2022 04/26/2024 No medicatio ns scheduled. Therapy Complete Bebe Hernandez PA-C ONC treatment plan 12/01/2022 12/03/2022 No medications scheduled. Therapy Complete Vicky Mendiola APRN-STATION AIR TRAFFIC CONTROL SPECIALIST Lifetime Dose Tracking * Chemical Lifetime Dose [...]
--- OUTSIDE RECORDS SUMMARY | 2024-08-13 14:08 | XMS_ITS | CONTINUITY OF CARE DOCUMENT ---
Author Name yoselyn topete Address Unknown Organization [facility] Address [address] [place] [address] Phone [phone] Care Team Providers Care Alumni Coordinator Name Role Phone Calvin HILL, Annie Pierce Unavailable SHIELA FLOR MD Unavailable SHIELA FLOR MD Unavailable PROBLEMS Condition Status Date Provider [...] MD Cardiology examination active Verah Bonarer i WOOD FLOORING SPECIALIST Cardiac septal defects active Shelley marshall WOOD FLOORING SPECIALIST Patent foramen ovale active Gallo Crowley Diffuse Non-Hodgkin's lympho ma (NHL) active Annie Simpson MD ENCOUNTERS Date Type Provider Location Encounter Diag nosis - In-person encounter Office Visit Annie Simpson MD [facility] - In-person encounter Office Visit Gallo Geller MD [facility] - In-person encounter Office Visit Annie Simpson MD [facility] Diffuse Non-Hodgkin's lymphoma (NHL) - In-person encounter Office Visit Gallo Geller MD [facility] Patent foramen ovale - In-person encounter Office Visit Annie Simpson MD [facility] Cardiac septal defects - In-person encounter Office Visit Annie Simpson MD [facility] Cardiology examination - In-person encounter Office Visit Annie Simpson MD [facility] Preop cardiovasc. examination - In-person encounter Office Visit Annie Simpson MD [facility] CVALymphoma s/p chemo - In-person encounter Office Visit Annie Simpson MD [facility] - In-person encounter Office Visit Annie Simpson MD [facility] - In-person encounter Office Visit Annie Simpson MD [facility] Cardiovascular Condition Screening - In-person encounter Office Visit Annie Simpson MD [facility] - In-person encounter Office Visit Annie Simpson MD [facility] - In-person encounter Office Visit Annie Simpson MD [facility] Other symptoms involving cardiovascular systemSnoringEKG - In-person encounter Office Visit Annie Simpson MD [facility] C O P D - In-person encounter Office Visit Annie Simpson MD [facility] Chest pain-type to be determined - In-person encounter Office Visit Annie Simpson MD [facility] Aortic regurgitationAortic root dilatation - In-person encounter Office Visit Annie Simpson MD [facility] - In-person encounter Office Visit Annie Simpson MD [facility] Sleep apnea - In-person encounter Office Visit Annie Simpson MD [facility] Hypertension VITAL SIGNS Date Observation Value [...] kathrine Zamora weight E&M 138 [lb_av] Nanda Santounder s height E&M 65 [in_i] Nanda Saunder s Body Mass Index (Ratio) 23.29 kg/m2 Jackson Geller MD oxygen saturation, oximetry 79 % Nanda Zamora pulse rate 96 /min Nanda Saunder s blood pressure, diastolic 81 mm[Hg] Ti tony Zamora blood pressure, systolic 135 mm[Hg] Torsten Zamora weight E&M 140 [lb_av] Nanda Cheng s height E&M 65 [in_i] Nanda Cheng s blood pressure, cuff size regular Ke rri Phonguenenfelder blood pressure, diastolic 80 mm[Hg] Krzysztof rri Gruenenfelder blood pressure, systolic 144 mm[Hg] Ida ri Ludwigneheavenelder oxygen saturation, oximetry 96 % Elizabeth Constanceelder pulse rate 79 /min Elizabeth Constancee lder height E&M 65 [in_i] Elizabeth Nolascoe lder blood pressure, diastolic 75 mm[Hg] Hoang costello Jonh blood pressure, systolic 145 mm[Hg] Huma gauthier Jonh respiratory rate E&M 12 /min Kevin Blas ion oxygen saturation, oximetry 98 % Kevin Jonh pulse rate 75 /min Kevin Jonh blood pressure, cuff size regular Hoang costello Jonh height E&M 65 [in_i] Hoangfrantz Jonh Body Mass Index (Ratio) 23.29 kg/m2 [...] ricoLog blood pressure, systolic 136 mm[Hg] Amarilys [facility] weight E&M 138 [lb_av] Kimi Carlson blood pressure, cuff size regular Ta bitchristi Carlson blood pressure, diastolic 78 mm[Hg] Ta bitha Carlson blood pressure, systolic 136 mm[Hg] Tab itha Carlson pulse rate 65 /min Kimi Carlson oxygen saturation, oximetry 98 % Kimi Carlson respiratory rate E&M 12 /min Kimi Carlson height E&M 65 [in_i] Kimi Carlson blood pressure, diastolic 94 mm[Hg] Din[facility] blood pressure, systolic 158 mm[Hg] Amarilys [facility] blood pressure, cuff size regular Ja rret [...] Rhett respiratory rate E&M 16 /min Nanda Crowley carla weight E&M 169 [lb_av] Nanda Rhett height E&M 65 [in_i] Nanda Rhett Body Mass Index (Ratio) 27.95 kg/m2 Guerda Simpson MD blood pressure, cuff size large Ke rri Ludwigneaddison blood pressure, diastolic 87 mm[Hg] Ke rri Denice blood pressure, systolic 120 mm[Hg] Ida Galdamez oxygen saturation, oximetry 95 % Elizabeth Galdamez respiratory rate E&M 14 /min Elizabeth pratereneaddison pulse rate 55 /min Elizabeth Kayli lder weight E&M 168 [lb_av] Elizabeth Kayli lder height E&M 65 [in_i] Elizabeth Kayli lder Body Mass Index (Ratio) 27.95 kg/m2 Guerda Simpson MD blood pressure, diastolic 69 mm[Hg] Ri jonh Mcguire blood pressure, systolic 112 mm[Hg] Bryant torsten Mcguire blood pressure, cuff size regular Ri jonh Mcguire oxygen saturation, oximetry 98 % Odalis Mcguire respiratory rate E&M 16 /min Jean Carlos Mcguire pulse rate 65 /min Odalsi Ng son weight E&M 168 [lb_av] Odalis Ng son height E&M 65 [in_i] Odalis koheler Body Mass Index (Ratio) 28.12 kg/m2 Guerda Simpson MD blood pressure, diastolic 66 mm[Hg] Li nkLogic blood pressure, systolic 131 mm[Hg] Amarilys kLogic blood pressure, diastolic 66 mm[Hg] Ca therine [place] blood pressure, systolic 131 mm[Hg] Cat herine Navarro oxygen saturation, oximetry 96 % Aletha [place] respiratory rate E&M 14 /min Catheri ne Navarro pulse rate 64 /min Aletha Navarro weight E&M 169 [lb_av] Aletha [place] blood pressure, cuff size regular Ca therine Navarro height E&M 65 [in_i] Aletha [place] Body Mass Index (Ratio) 27.12 kg/m2 Christiano [...] blood pressure, systolic 132 mm[Hg] Ida daly Ludwignenfelder oxygen saturation, oximetry 95 % Elizabeth Grnormanfelder respiratory rate E&M 16 /min Elizabeth Blas josijosselinenfelder pulse rate 71 /min Elizabeth Munroenenfe lder weight E&M 167 [lb_av] Elizabeth Munroenenfe lder height E&M 65 [in_i] Elizabeth Munroenenfe lder Body Mass Index (Ratio) 26.29 kg/m2 Guerda Simpson MD blood pressure, diastolic 72 mm[Hg] [facility], systolic 122 mm[Hg] Ton [facility] oxygen saturation, oximetry 96 % [facility] respiratory rate E&M 16 /min [facility] pulse rate 74 /min [facility] weight E&M 158 [lb_av] [facility] height E&M 65 [in_i] [facility] Body Mass Index (Ratio) 25.22 kg/m2 Guerda Simpson MD blood pressure, diastolic 67 mm[Hg] Uche Philippejoon Oliver blood pressure, systolic 121 mm[Hg] Miguelina Oliver oxygen saturation, oximetry 98 % Forest Oliver respiratory rate E&M 18 /min Mary Jo Olvier pulse rate 64 /min Forest Yordy annie weight E&M 151.6 [lb_av] Forest talbot height E&M 65 [in_i] Forest Yordy on Body Mass Index (Ratio) 25.46 kg/m2 Guerda Simpson MD pulse rate 75 /min [facility] temperature site temporal [facility] temperature E&M 98.2 [degF] [facility] respiratory rate E&M 16 /min [facility] oxygen saturation, oximetry 96 % [facility] weight E&M 153 [lb_av] [facility] blood pressure, diastolic 83 mm[Hg] To [facility] blood pressure, systolic 129 mm[Hg] Ton [facility] blood pressure, resting Yes [facility] height E&M 65 [in_i] [facility] Body Mass Index (Ratio) 23.13 [...] Estab. 5 platelet count 177 X10E3/UL LinkLogic [id number] 1034/02/2 5 red blood cell distribution width 13.4 [...] >39 5 triglyceride, serum, random 83 mg/dL LinkLogic 0-149 5 cholesterol, serum 127 mg/dL [employer] [phone]/02/2 5 calcium, serum 10.2 mg/dL [employer] 8.7-10.3 5 carbon dioxide, venous blood 27 mmol/L [employer] 20-29 5 chloride, serum 103 mmol/L [employer] 96-106 5 potassium, serum 4.5 mmol/L [employer]ic 3.5-5.2 5 sodium, serum 143 mmol/L [employer]ic 459-061 1914/02/2 5 urea nitrogen/creatinin e ratio, serum 19 [...] 0.57-1.00 5 urea nitrogen, blood 19 mg[facility] blood glucose, random 88 mg/dL [facility] 70-99 HISTORY OF MEDICATION USE Medication [...] PLAVIX AND START ELIQUIS. 07/31 - 05/10 Blancamadhuri Li cephalexin 500 mg capsule completed Take [...] years as a smoker 35 a Gallo Geller MD cigarette use yes Gallo Geller MD smoking status Former smoker Gallo hernandez MD smoking, year quit 2014 Annie Simpson MD number of years as a smoker 35 a Annie Simpson MD cigarette use yes Annie colbert MD smoking status Former smoker Annie mayo MD smoking, year quit 2014 Shelley Askew ndall WOOD FLOORING SPECIALIST number of years as a smoker 35 a Shelley Barriosll WOOD FLOORING SPECIALIST cigarette use yes Shelley Barriosll WOOD FLOORING SPECIALIST smoking status Former smoker Shelley Barrios ll WOOD FLOORING SPECIALIST smoking, year quit 2014 [place] areri WOOD FLOORING SPECIALIST number of years as a smoker 35 a [place] Bonareri WOOD FLOORING SPECIALIST cigarette use yes [place] Bonareri WOOD FLOORING SPECIALIST smoking status Former smoker [place] Barretore ri WOOD FLOORING SPECIALIST smoking, year quit 2014 Terrie Will [...] Elizabeth gomez smoking status Former smoker Elizabeth grewaler smoking, year quit 2014 Odalis Mcguire number [...] a Forest Oliver cigarette use yes Forest talbot social history [...] Payer name Policy type / Coverage type [place] red libertarian ID [id number] (PPO C-SNP) [employer] insurance [employer] [id number] HEALTHCARE AND FAMILY SERVICES Medicaid 0 [id number] ADVANCE DIRECTIVES Name Date DISCUSSED - NO DECISION MADE TREATMENT PLAN Date Name Performer [id number],C, E cho 05/2021 C ONCLUSIONS: 1 . [...] a ortic valve regurgitation. Annie Simpson MD [id number],S,N eeds CT done, stress was negative. May need mamogram Annie Simpson MD [id number],C, N o YAMIL Annie Simpson MD [id number],C, H er updated medication list for this problem includes: Enalapril Maleate 5 Mg Tablet (Enalapril maleate) ..... Take 1 tablet by mouth twice daily Amlodipine 10 Mg Tablet (Amlodipine) ..... Take 1 tablet by mouth once a day BP today: 153/79 P rior BP: 120/87 (01/29/2022) Annie Simpson MD [id number],C, E cho 06/01/21 CONCLUSIONS: 1 . Technically [...] No ischemia, hyperdynamic EF Annie Simpson MD [id number],C, C heck echo C T [facility] August 01, 2019 T he ascending thoracic aorta measures 3.[address] 10/28/2019 [facility] prominent lymph nodes about t he esophagus. The heart is not enlarged. No thoracic aortic a neurysm or dissection. The left vertebral artery arises directly f rom the aortic arch. There January 29, [address] reche[address] CT to evaluate aorta. CT was denied. WIll reorder Annie Simpson MD [id number],C, N o YAMIL Annie Simpson MD [id number],C, B P today: 120/87 P rior BP: [...] by mouth twice daily Annie Simpson MD [id number],C, C heck echo C T [facility] August 01, 2019 T he ascending thoracic aorta measures 3.[address] 10/28/2019 [facility] prominent lymph nodes about t he esophagus. The heart is not enlarged. No thoracic aortic a neurysm or dissection. The left vertebral artery arises directly f rom the aortic arch. There January 29, [address] to evaluate aorta. Annie Simpson MD [id number],C, E cho 05/2021 C ONCLUSIONS: 1 . [...] a ortic valve regurgitation. Annie Simpson MD [id number],C, E cho 06/01/21 CONCLUSIONS: 1 . Technically [...] C heck nuclear stress. Annie Simpson MD [id number],C, S tarted on Nebulizer for COPD / emphysema. Has noted improvement. No PFTs. April 24, 2021 M ay be related to the fact that she is off nebulizer is why she has CP recommended her to resume. January 29, 2022 L ots of coughing due to COPD, probably chest wall related. Annie Simpson MD [id number]|2024-08-13 14:08:00|2024-08-13 14:08:00|XMS_ITS|BKG DAEMON|External Medical Summaries|[id number]|" Clinical Summary Created on: August 13, 2024 Paula Lomeli : 1960 Sex: Female Author Organization [facility] Address [address] [place] [address] Care Team Providers Care Alumni Coordinator Name Role Phone Shiela Flor Primary Care Provider [phone] Allergies Active Allergy Reactions Criticality Noted Date [...] FIT-DNA (Cologuard) 1960 FIT 1958 FOBT 1958 Hemoglobin A1C 1958 Sigmoidoscopy 1958 Annual Visit Topic 1959 MMR Vaccines (1 of 1 - Stand anibal series) 1959 Ophthalmology Exam 1968 Urine Microalbumin 1968 Hepatitis C Screening 1976 DTaP/Tdap/Td Vaccines (1 - Tdap) 1977 Pneumococcal Vaccine: 65+ Ye ars (1 of 4 - PCV) 1977 Mammogram 1998 HIB Vaccines Aged Out No longer eligi [...] 8:27 PM 11/12/2022 4:08 PM Care Teams Alumni Coordinator Relationship Specialty Start Date End Date Shiela Flor [address] [address] PCP - General 10/28/22 "
--- OUTSIDE RECORDS SUMMARY | 2024-08-13 14:09 | XMS_ITS | Clinical Summary ---
Author Organization [facility] Address [address] [place] [address] Phone Care Team Providers Care Lap Cutter Name Role Phone Agustin Flor MD Primary Care Provider [phone] Allergies Active Allergy Reactions Criticality Noted Date [...] CDT) hepatitis C antibody 0.09 <1 S/[facility] [id number] B 07/13/2022 9:22 PM CDT [facility] Comment: Signal/Cutoff ratio < 0.79 is Nondetected Signal/Cutoff ratio 0.80-0.99 is Grayzone Signal/Cutoff ratio > 0.99 is Detected Supplemental assays are recommended if signal/cutoff ratio is >/=1.00. Signal/cutoff ratio result >/= 5.00 is 97% predictive of positivity for recombinant immunoblot assay (RIBA) and will be reported to the [place] Department of Public Health as required. Blood Venipuncture / Unknown 07/13/2022 1:29 PM CDT 07/13/2022 1:41 PM CDT Hans Escobar MD CHEMISTRY ORDERABLES Fin al Result [facility] [address] [place] [address], [place] from Last 3 Months or Most Recently Relevant to Health Maintenance Insurance MEDICARE C [employer] [place] Care Teams Lap Cutter Relationship Specialty Start Date End Date Agustin Flor MD PCP - General Internal Medicine 07/13/22
--- OUTSIDE RECORDS SUMMARY | 2024-08-13 14:09 | XMS_ITS | Clinical Summary ---
Author Organization [facility] Medical Office Building B Address [address] [place] [address] Care Team Providers Care Electrician [employer]per [employer] Name Role Phone Agustin Flor MD Primary Care Provider [phone] Annie Simpson MD Unavailable [phone] Allergies Active Allergy Reactions Criticality Noted Date [...] needed for shortness of breath or wheezing 3 Active albuterol 2.5 mg /3 mL (0.083 %) nebulizer solution Take 3 mL (2.5 mg total) by nebulization every 4 (four) hours as needed for wheezing or shortness of breath 4 Active atorvastatin (LIPITOR) 40 mg tablet Take 1 tablet (40 mg total) by mouth nightly 3 Active FreeStyle Ron 3 Shushan misc 2 (two) times a day 4 Active FreeStyle Ron 3 Sensor device 2 (two) times a day 4 Active cholecalciferol 25 mcg (1,000 unit) tablet Take 2 tablets (2,000 Units total) by mouth every morning 3 Active famotidine (PEPCID) 20 mg tablet Take 0.5 tablets (10 mg total) by mouth daily as needed Active Trelegy Ellipta 100-62.5-25 mcg inhaler Inhale 1 puff every morning Active gabapentin (NEURONTIN) 300 mg capsule Take 1 capsule (300 mg total) by mouth 2 (two) times a day 4 Active hydrOXYzine (VISTARIL) 25 mg capsule Take 1 capsule (25 mg total) by mouth every morning Active insulin aspart (NovoLOG) 100 unit/mL (3 mL) pen for injection Inject 5 Units under the skin 3 (three) times a day with meals 3 Active LANTUS 100 unit/mL (3 mL) pen for injection Inject 12 Units under the skin nightly Active OneTouch Delica Plus Lancet 33 gauge misc 2 (two) times a day TEST BLOOD SUGAR [address] (PROTONIX) 20 mg EC tablet Take 2 tablets (40 mg total) by mouth every morning 3 Active PARoxetine (PAXIL) 40 mg tablet Take 1 tablet (40 mg total) by mouth nightly 3 Active senna (SENOKOT) 8.6 mg tablet Take 1 tablet by mouth every morning Active terbinafine (LamiSIL) 250 mg tablet Take 1 tablet (250 mg total) by mouth daily with lunch Active ziprasidone (GEODON) 80 mg capsule Take 2 capsules (160 mg total) by mouth nightly 3 Active amLODIPine (NORVASC) 10 mg tablet Take 1 tablet (10 mg total) by mouth daily with lunch Active losartan (COZAAR) 25 mg tablet Take 1 tablet (25 mg total) by mouth every morning 4 Active OneTouch Ultra Test strip OneTouch Ultra Test strip Active docusate sodium (STOOL SOFTENER ORAL) Take 2 tablet/capsule by mouth nightly Active clopidogreL (PLAVIX) 75 mg tablet Take 1 tablet (75 mg total) by mouth daily 90 tablet 3 5 06/01/19 26 Active Active Problems Problem Noted Date Diagnosed Date PFO (patent foramen ovale) 02/22/2024 Assessment & Plan (02/22/2024 9:06 AM PAINTER HELPER SIGN): She has followed with cardiology and has now seen a surgeon with plans for repair in the next several months We will reassess her dyspnea after her recovery from this procedure Centrilobular emphysema 02/22/2024 Assessment & Plan (02/22/2024 9:05 AM PAINTER HELPER SIGN): Continue Trelegy Ellipta 100 daily Albuterol as [...] 02/21 Assessment & Plan (02/22/2024 9:06 AM PAINTER HELPER SIGN): Last CT chest in November of 2023 [...] Department Care Team Description 05/29/2024 8:00 AM PAINTER HELPER SIGN - 05/29/2024 10:00 AM PAINTER HELPER SIGN Surgery [facility] Cardiac Catheterization Lab [address] [place] [address] Gallo Diehl MD ATRIAL SEPTAL DEFECT (ASD), PATENT FORAMEN OVALE (PFO), FENESTRATION CLOSURE [id number] 05/29/2024 7:59 AM PAINTER HELPER SIGN - 05/29/2024 11:59 PM PAINTER HELPER SIGN Hospital Encounter [facility] Cardiac Catheterization Lab [address] [place] [address] Discharge Disposition: Discharge to home or self care 05/29/2024 7:57 AM PAINTER HELPER SIGN Anesthesia Event [facility] Cardiac Catheterization Lab [address] [place] [address] Chavez Chiu MD Eldin, Ali S., MD 05/29/2024 5:33 AM PAINTER HELPER SIGN - 05/30/2024 11:37 AM PAINTER HELPER SIGN Hospital Encounter [address] [address] Gallo Diehl MD PFO (patent foramen ovale) Discharge Disposition: Discharge to home or self care 05/25/2024 9:45 AM PAINTER HELPER SIGN Pre-Admission Testing [facility] Pre Anesthesia Testing [address] [place] [address] Pre-op testing (Primary Dx) 05/24/2024 1:09 PM PAINTER HELPER SIGN - 05/24/2024 11:59 PM PAINTER HELPER SIGN Hospital Encounter [facility] [address] [place] [address] Right foot pain Discharge Disposition: Discharge to home or self care 05/24/2024 1:05 PM PAINTER HELPER SIGN - 05/24/2024 11:59 PM PAINTER HELPER SIGN Hospital Encounter [facility] [address] [place] [address] Left foot pain Discharge Disposition: Discharge to home or self care 05/24/2024 12:30 PM PAINTER HELPER SIGN Office Visit [facility] Orthopaedic Surgery [address] [facility] 2nd Floor [address] [place] [phone] Lakia Riddle MD Left foot pain (Primary Dx); Right foot pain; Acquired equinovarus deformity of left foot; Acquired equinovarus deformity of right foot from Last 3 Months Surgical History Surgery Date Site/Laterality Comments PORT PLACEMENT CHEST >5 YEARS 07/15/2022 N/A removed 03/2024 CARDIAC STENT PLACEMENT OTHER SURGICAL HISTORY 03/28/2023 - 03/27/2024 LOOP recorder placement HYSTERECTOMY EYE SURGERY Bilateral cataracts CARDIAC CATHETERIZATION 05/29/2024 N/A Procedure: ATRIAL SEPTAL DEFECT (ASD), PATENT FORAMEN OVALE (PFO), FENESTRATION CLOSURE [id number]; Surgeon: Gallo Diehl MD; 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; Service: Cardiovascular; Laterality: N/A; Medical devices from [...] on file Legal Sex Female 9:14 PM PAINTER HELPER SIGN Gender Identity Not on file Sexual Orientation Not on file Obstetrics History Last Filed Vital Signs Vital Sign Reading Time Taken Comments Blood Pressure 118/62 05/30/2024 7:40 AM PAINTER HELPER SIGN Pulse 74 05/30/2024 9:02 AM PAINTER HELPER SIGN Temperature 37.4 C (99.4 F) 05/30/2024 7:40 AM PAINTER HELPER SIGN Respiratory Rate 18 05/30/2024 7:40 AM PAINTER HELPER SIGN Oxygen Saturation 95% 05/30/2024 7:40 AM PAINTER HELPER SIGN Inhaled Oxygen Concentration - - Weight 57.6 kg (126 lb 15.8 oz) 05/30/2024 5:45 AM PAINTER HELPER SIGN Height 162.6 cm (5' 4 ) 05/29/2024 6:4 9 AM PAINTER HELPER SIGN Body Mass Index 21.8 05/29/2024 6:49 AM PAINTER HELPER SIGN Plan of Treatment Health Maintenance Due Date [...] 01/21/2022, 01/21/2022, Additional history exists Influenza Vaccine (Season Ended) 2024 02/09/2023, 01/21/2022, 01/30/2021, Additional history exists Fall Risk Assessment 05/29/2025 05/29/2024 eGFR 05/30/2025 05/30/2024 Pneumococcal vaccine 65+ Completed 01/21/2022, 03/2014 Medical Devices Implanted Type Area Digital Producer Device Identifier Shelf Expiration Date Model / Serial / Lot [employer] Vascular Occluder Amplatzer Talisman Pfo 25-18mm [id number] - [id number] Implanted:Qty: 1 on 05/29/2024 by Gallo Diehl MD at [facility] Septal Defect Closure Device [employer] 03/27/2025 [id number] / / [employer] System Closure Repair Femoral Artery Suture Mediated Perclose Prostyle 55051-27 - [id number] Implanted:Qty: 1 on 05/29/2024 by Gallo Diehl MD at [facility] [employer] 02/24/2026 [id number] / / [id number] Procedures Procedure Name Priority Date/Time Associated Diagnosis Comments TRANSTHORACIC ECHO (TTE) LIMITED/FOLLOW UP W LTD DOPPLER/CF WO CONTRAST Routine 05/30/2024 8:27 AM PAINTER HELPER SIGN POCT GLUCOSE DEVICE Routine 05/30/2024 8 :18 AM PAINTER HELPER SIGN EGFR Routine 05/30/2024 4:01 AM PAINTER HELPER SIGN DIFFERENTIAL AUTO Routine 05/30/2024 4:0 1 AM PAINTER HELPER SIGN CBC WITH AUTO DIFFERENTIAL Routine 05/30/2024 4:01 AM PAINTER HELPER SIGN BASIC METABOLIC PANEL Routine 05/30/2024 4:01 AM PAINTER HELPER SIGN POCT GLUCOSE DEVICE Routine 05/29/2024 9 :18 PM PAINTER HELPER SIGN POCT GLUCOSE DEVICE Routine 05/29/2024 5 :54 PM PAINTER HELPER SIGN POCT GLUCOSE DEVICE Routine 05/29/2024 1 2:52 PM PAINTER HELPER SIGN POCT GLUCOSE DEVICE Routine 05/29/2024 8 :58 AM PAINTER HELPER SIGN ATRIAL SEPTAL DEFECT CLOSURE Routine 05/29/2024 8:38 AM PAINTER HELPER SIGN PFO (patent foramen ovale) OK AN ELECTIVE ENDOTRACHEAL AIRWAY Routine 05/29/2024 8:12 AM PAINTER HELPER SIGN ECG 12-LEAD Routine 05/29/2024 7:03 AM PAINTER HELPER SIGN POCT GLUCOSE DEVICE Routine 05/29/2024 6 :38 AM PAINTER HELPER SIGN URINALYSIS AND REFLEX TO MICROSCOPIC AND CULTURE Routine 05/25/2024 12:12 PM PAINTER HELPER SIGN Pre-op testing XR FOOT RIGHT 3 OR MORE VIEWS Schedule Routine, Read Routine (OP Routine) 05/24/2024 1:24 PM PAINTER HELPER SIGN Left foot pain XR FOOT LEFT 3 OR MORE VIEWS Schedule Routine, Read Routine (OP Routine) 05/24/2024 1:24 PM PAINTER HELPER SIGN Right foot pain HEMOGLOBIN A1C Routine 04/12/2018 5:45 AM PAINTER HELPER SIGN LIPID PANEL Routine 04/12/2018 5:45 AM PAINTER HELPER SIGN from Last 3 Months or Most Recently Relevant to Health Maintenance Results * TRANSTHORACIC ECHO (TTE) LIMITED/FOLLOW UP W LTD DOPPLER/CF WO CONTRAST (05/30/2024 8:27 AM PAINTER HELPER SIGN) Anatomical Region Laterality Modality Ultrasound 05/30/2024 7:49 AM PAINTER HELPER SIGN Narrative 05/30/2024 12:27 PM PAINTER HELPER SIGN [address] [address] Limited Echocardiogram Report Patient Name: PAULA ORELLANA S : 1960 Study Date: 05/30/2024 7:49:55 AM Gender: F Tech: Location: [id number] Ref Provider: GALLO DIEHL Height(Cm): 163 BSA: [...] DO, FACC, FASE, FASNC 05/30/2024 12:27:25 PM PAINTER HELPER SIGN Procedure Note Zeina Zamora DO - 05/30/2024 [place] [address] Limited Echocardiogram Report Patient Name: PAULA ORELLANA S : 1960 Study Date: 05/30/2024 7:49:55 AM Gender: F Tech: THAD Location: [place] [address] Ref Provider: GALLO DIEHL Height(Cm): 163 BSA: [...] DO, JACINDA, LOU VOGEL 05/30/2024 12:27:25 PM PAINTER HELPER SIGN Gallo Diehl MD CV ECHO PROCEDURES Final Result * POCT glucose (05/30/2024 8:18 AM PAINTER HELPER SIGN) Glucose, POC 127 70 - 199 mg/dL Blood 05/30/2024 8:18 AM PAINTER HELPER SIGN 05/30/2024 8:18 AM PAINTER HELPER SIGN Gallo Diehl MD LAB POCT ORDERABLES - DEVICE Fi nal Result Performing Organization Address [facility] Co de Phone Number VIKRAM THRASHER [address] [employer] [place], [place] [id number] * eGFR (05/30/2024 4:01 AM PAINTER HELPER SIGN) eGFR 61 >=60 mL/min/1. 73 m2 Comment: [...] last reviewed 2021. Blood 05/30/2024 4:01 AM PAINTER HELPER SIGN 05/30/2024 4:33 AM PAINTER HELPER SIGN Gallo Diehl MD LAB BLOOD ORDERABLES Final Resu lt Performing Organization Address City/[facility] Co de Phone Number VIKRAM THRASHER [address] [employer] [place], [place] [id number] * Differential, auto (05/30/2024 4:01 AM PAINTER HELPER SIGN) Neutrophil abs 6.5 1.5 - 6.5 K/cumm Imm gran abs 0.0 0.0 - 0.1 K/cumm [facility] Lymphocyte abs 1.2 0.8 - 3.3 K/cumm [facility] Monocyte abs 0.6 0.2 - 0.8 K/cumm [facility] Eosinophil abs 0.0 0.0 - 0.5 K/cumm [facility] Basophil abs 0.0 0.0 - 0.1 K/cumm [facility] Neutrophil pct 77.2 % [facility] Comment: Interpretive Data Percent cell count reference ranges are not reported, since discordance with absolute values may lead to misinterpretation of CBC data. Current Interpretive Data was last revised on 2017. Imm gran pct 0.5 % [facility] Comment: Interpretive Data Percent cell count reference ranges are not reported, since discordance with absolute values may lead to misinterpretation of CBC data. Current Interpretive Data was last revised on 2017. Lymphocyte pct 14.4 % [facility] Comment: Interpretive Data Percent cell count reference ranges are not reported, since discordance with absolute values may lead to misinterpretation of CBC data. Current Interpretive Data was last revised on 2017. Monocyte pct 7.5 % [facility] Comment: Interpretive Data Percent cell count reference ranges are not reported, since discordance with absolute values may lead to misinterpretation of CBC data. Current Interpretive Data was last revised on 2017. Eosinophil pct 0.2 % [facility] Comment: Interpretive Data Percent cell count reference ranges are not reported, since discordance with absolute values may lead to misinterpretation of CBC data. Current Interpretive Data was last revised on 2017. Basophil pct 0.2 % [facility] Comment: Interpretive Data Percent cell count reference ranges are not reported, since discordance with absolute values may lead to misinterpretation of CBC data. Current Interpretive Data was last revised on 2017. Blood 05/30/2024 4:01 AM PAINTER HELPER SIGN 05/30/2024 4:12 AM PAINTER HELPER SIGN us Gallo Diehl MD LAB BLOOD ORDERABLES Final Resu lt VIKRAM [address] Department [place] [address] * (ABNORMAL) CBC with auto differential (05/30/2024 4:01 AM PAINTER HELPER SIGN) Pathologist [facility] WBC 8.5 3.8 - 9.9 K/cumm Hgb 11.8(L) 11.9 - 15.5 g/dL [facility] Hct 37.2 35.6 - 45.5 % [facility] Plt 176 150 - 400 K/cumm [facility] MPV 9.0(L) 9.1 - 12.3 fL [facility] RBC 4.07 3.90 - 5.20 M/cumm [facility] MCV 91.4 81.3 - 96.4 fL [facility] MCH 29.0 27.1 - 33.3 pg [facility] MCHC 31.7(L) 32.3 - 35.7 g/dL [facility] RDW CV 14.6 11.1 - 14.9 % [facility] RDW SD 48.1 35.7 - 48.1 fL [facility] NRBC abs 0.00 0.00 - 0.01 K/cumm [facility] Blood 05/30/2024 4:01 AM PAINTER HELPER SIGN 05/30/2024 4:12 AM PAINTER HELPER SIGN us Gallo Diehl MD LAB BLOOD ORDERABLES Final Resu lt [facility] [address] Department [place] [address] * Basic metabolic panel (05/30/2024 4:01 AM PAINTER HELPER SIGN) Pathologist [facility] Sodium 141 135 - 145 mmol/L Potassium, pl 3.8 3.3 - 4.9 mmol/L [facility] Chloride 103 97 - 110 mmol/L [facility] CO2 25 22 - 32 mmol/L [facility] Anion gap 13 2 - 15 mmol/L [facility] BUN 22 6 - 25 mg/dL [facility] Creatinine 1.02 0.60 - 1.10 mg/dL [facility] Glucose 128 70 - 199 mg/dL [facility] Comment: Interpretive Data Fasting glucose [...] 10.3 mg/dL VIKRAM Blood 05/30/2024 4:01 AM PAINTER HELPER SIGN 05/30/2024 4:33 AM PAINTER HELPER SIGN Result [facility] Gallo Diehl MD LAB BLOOD ORDERABLES Final Resu lt Performing Organization Address [facility] de Phone Number VIKRAM [address] [place] [address] * (ABNORMAL) POCT glucose (05/29/2024 9:18 PM PAINTER HELPER SIGN) Glucose, POC 213(H) 70 - 199 mg/dL Blood 05/29/2024 9:1 8 PM PAINTER HELPER SIGN 05/29/2024 9:18 PM PAINTER HELPER SIGN Result [facility] Gallo Diehl MD LAB POCT ORDERABLES - DEVICE Fi nal Result Performing Organization Address [facility] de Phone Number [facility] [address] [address] [facility] [place] [address] * POCT glucose (05/29/2024 5:54 PM PAINTER HELPER SIGN) Glucose, POC 115 70 - 199 mg/dL Blood 05/29/2024 5:54 PM PAINTER HELPER SIGN 05/29/2024 5:54 PM PAINTER HELPER SIGN Gallo Diehl MD LAB POCT ORDERABLES - DEVICE Fi nal Result Performing Organization Address [facility] de Phone Number [facility] [address] [address] [facility] [place] [address] * (ABNORMAL) POCT glucose (05/29/2024 12:52 PM PAINTER HELPER SIGN) Glucose, POC 224(H) 70 - 199 mg/dL Blood 05/29/2024 12:5 2 PM PAINTER HELPER SIGN 05/29/2024 12:52 PM PAINTER HELPER SIGN Gallo Diehl MD LAB POCT ORDERABLES - DEVICE Fi nal Result Performing Organization Address [facility] de Phone Number VIKRAM [address] [address] [facility] [place] [address] * POCT glucose (05/29/2024 8:58 AM PAINTER HELPER SIGN) Glucose, POC 120 70 - 199 mg/dL Blood 05/29/2024 8:58 AM PAINTER HELPER SIGN 05/29/2024 8:58 AM PAINTER HELPER SIGN Gallo Diehl MD LAB POCT ORDERABLES - DEVICE Fi nal Result Performing Organization Address [facility] [place] [address] [address] [facility] [place] [address] * ATRIAL SEPTAL DEFECT CLOSURE (05/29/2024 8:38 AM PAINTER HELPER SIGN) Anatomical Region Laterality Modality X-Ray Angiograph y Narrative 05/29/2024 8:48 AM PAINTER HELPER SIGN Table formatting from the original result was not included. ATRIAL SEPTAL DEFECT (ASD), PATENT FORAMEN OVALE (PFO), FENESTRATION CLOSURE [id number] Brief Op Note Attending Electrical Repairer: Gallo Diehl MD Primary: Gallo Diehl MD CV Documenter: Selam Hernández RN CV Scrub: Ezra Douglass; Avis Lance CV Certified Income Tax Preparer: Patricia Bowen RN; Shawna Cooper RN Date of Procedure: 05/29/2024 Specimens: No specimen collected in procedure Preoperative Diagnosis: Pre-op Diagnosis * PFO (patent foramen ovale) [Q21.12] Postoperative Diagnosis: Post-op Diagnosis * PFO (patent foramen ovale) [Q21.12] Name of Procedure: Procedure(s): ATRIAL SEPTAL DEFECT (ASD), PATENT FORAMEN OVALE (PFO), FENESTRATION CLOSURE [id number] Implants: Implant Name Type Inv. Item Serial No. Digital Producer Lot No. LRB No. Used Action [employer] System Closure Repair Femoral Artery Suture Mediated Perclose Prostyle 13787-17 - [id number] [employer] System Closure Repair Femoral Artery Suture Mediated Perclose Prostyle 96844-21 [employer] [id number] N/A 1 Implanted [employer]ASC[employer] Occluder Amplatzer Talisman Pfo 25-18mm [id number] - [id number] Septal Defect Closure Device [employer] Occluder Amplatzer Talisman Pfo 25-18mm [id number] [employer] N/A 1 Implanted CARDIOVASCULAR PROCEDURE: Ultrasound guided venous access RCFV access with ultrasound placement of 8f sheath Perclose closure of the RCFV with manual [id number]|2024-08-13 14:10:00|2024-08-13 14:09:00|XMS_ITS|BKG [id number]|External Medical Summaries|[id number]|" Referral Summary Created on: August 13, 2024 Paula Orellana : 1960 Sex: Female Author Organization [facility] Medical Office Building B Address [address] [place] [address] Care Team Providers Care Electrician [employer] Name Role Phone Agustin Flor MD Primary Care Provider [phone] Annie Simpson MD Unavailable [phone] Encounters Date Type Department Care Team Description 05/29/2024 5:33 AM PAINTER HELPER SIGN - 05/30/2024 11:37 AM PAINTER HELPER SIGN Hospital Encounter [address] [address] Gallo Diehl MD PFO (patent foramen ovale) Discharge Disposition: Discharge to home or self care 05/29/2024 7:59 AM PAINTER HELPER SIGN - 05/29/2024 11:59 PM PAINTER HELPER SIGN Hospital Encounter [facility] Cardiac Catheterization Lab [address] [place] [address] Discharge Disposition: Discharge to home or self care 05/29/2024 8:00 AM PAINTER HELPER SIGN - 05/29/2024 10:00 AM PAINTER HELPER SIGN Surgery [facility] Cardiac Catheterization Lab [address] [place] [address] Gallo Diehl MD ATRIAL SEPTAL DEFECT (ASD), PATENT FORAMEN OVALE (PFO), FENESTRATION CLOSURE [id number] 05/29/2024 7:57 AM PAINTER HELPER SIGN Anesthesia Event [facility] Cardiac [facility]athe[facility] [address] [place] [address] Chavez Chiu MD Eldin, Ali S., MD 05/25/2024 9:45 AM PAINTER HELPER SIGN Pre-Admission Testing [facility] Pre Anesthesia Testing [address] [place] [address] Pre-op testing (Primary Dx) 05/24/2024 1:05 PM PAINTER HELPER SIGN - 05/24/2024 11:59 PM PAINTER HELPER SIGN Hospital Encounter [facility] [address] [place] [address] Left foot pain Discharge Disposition: Discharge to home or self care 05/24/2024 1:09 PM PAINTER HELPER SIGN - 05/24/2024 11:59 PM PAINTER HELPER SIGN Hospital Encounter [facility] [address] [place] [address] Right foot pain Discharge Disposition: Discharge to home or self care 05/24/2024 12:30 PM PAINTER HELPER SIGN Office Visit [facility] Orthopaedic Surgery [address] [place] [address] 2[address] Floor [address] [place] [phone] Lakia Riddle MD Left foot pain (Primary Dx); Right foot pain; Acquired equinovarus deformity of left foot; Acquired equinovarus deformity of right foot from Last 3 Months Allergies Active Allergy Reactions Criticality Noted Date Comments Aspirin Eye irritation,Other (See comments),Shortness of breath,Swelling,Unknow n High 04/12/2018 Breathing Difficulty Pain in the chest, eye red and swollen Cefdinir Itching,Rash Medium 04/21/2023 Chlorthalidone Itching,Unknown,Urti ca jacquelnie Medium 07/13/2022 Makes her itch Clonazepam Other (See comments),Unknown High 05/17/2018 Uncontrolled muscle movement Jerk in the leg clonazepam Hydrochlorothiazide Itching,Unknown Low 12/15/2022 Severe itching Medications albuterol HFA (PROVENTIL HFA,VENTOLIN HFA,PROAIR HFA) 90 mcg/actuation inhaler Inhale 2 puffs every 4 (four) hours as needed for shortness of breath or wheezing 3 Active albuterol 2.5 mg /3 mL (0.083 %) nebulizer solution Take 3 mL (2.5 mg total) by nebulization every 4 (four) hours as needed for wheezing or shortness of breath 4 Active atorvastatin (LIPITOR) 40 mg tablet Take 1 tablet (40 mg total) by mouth nightly 3 Active FreeStyle Ron 3 Shushan misc 2 (two) times a day 4 Active FreeStyle Ron 3 Sensor device 2 (two) times a day 4 Active cholecalciferol 25 mcg (1,000 unit) tablet Take 2 tablets (2,000 Units total) by mouth every morning 3 Active famotidine (PEPCID) 20 mg tablet Take 0.5 tablets (10 mg total) by mouth daily as needed Active Trelegy Ellipta 100-62.5-25 mcg inhaler Inhale 1 puff every morning Active gabapentin (NEURONTIN) 300 mg capsule Take 1 capsule (300 mg total) by mouth 2 (two) times a day 4 Active hydrOXYzine (VISTARIL) 25 mg capsule Take 1 capsule (25 mg total) by mouth every morning Active insulin aspart (NovoLOG) 100 unit/mL (3 mL) pen for injection Inject 5 Units under the skin 3 (three) times a day with meals 3 Active LANTUS 100 unit/mL (3 mL) pen for injection Inject 12 Units under the skin nightly Active OneTouch Delica Plus Lancet 33 gauge misc 2 (two) times a day TEST BLOOD SUGAR [address] (PROTONIX) 20 mg EC tablet Take 2 tablets (40 mg total) by mouth every morning 3 Active PARoxetine (PAXIL) 40 mg tablet Take 1 tablet (40 mg total) by mouth nightly 3 Active senna (SENOKOT) 8.6 mg tablet Take 1 tablet by mouth every morning Active terbinafine (LamiSIL) 250 mg tablet Take 1 tablet (250 mg total) by mouth daily with lunch Active ziprasidone (GEODON) 80 mg capsule Take 2 capsules (160 mg total) by mouth nightly 3 Active amLODIPine (NORVASC) 10 mg tablet Take 1 tablet (10 mg total) by mouth daily with lunch Active losartan (COZAAR) 25 mg tablet Take 1 tablet (25 mg total) by mouth every morning 4 Active OneTouch Ultra Test strip OneTouch Ultra Test strip Active docusate sodium (STOOL SOFTENER ORAL) Take 2 tablet/capsule by mouth nightly Active clopidogreL (PLAVIX) 75 mg tablet Take 1 tablet (75 mg total) by mouth daily 90 tablet 3 5 06/01/19 26 Active Active Problems Problem Noted Date Diagnosed Date PFO (patent foramen ovale) 02/22/2024 Assessment & Plan (02/22/2024 9:06 AM PAINTER HELPER SIGN): She has followed with cardiology and has now seen a surgeon with plans for repair in the next several months We will reassess her dyspnea after her recovery from this procedure Centrilobular emphysema 02/22/2024 Assessment & Plan (02/22/2024 9:05 AM PAINTER HELPER SIGN): Continue Trelegy Ellipta 100 daily Albuterol as [...] 02/21 Assessment & Plan (02/22/2024 9:06 AM PAINTER HELPER SIGN): Last CT chest in November of 2023 [...] on file Legal Sex Female 9:14 PM PAINTER HELPER SIGN Gender Identity Not on file Sexual Orientation Not on file Last Filed Vital Signs Vital Sign Reading Time Taken Comments Blood Pressure 118/62 05/30/2024 7:40 AM PAINTER HELPER SIGN Pulse 74 05/30/2024 9:02 AM PAINTER HELPER SIGN Temperature 37.4 C (99.4 F) 05/30/2024 7:40 AM PAINTER HELPER SIGN Respiratory Rate 18 05/30/2024 7:40 AM PAINTER HELPER SIGN Oxygen Saturation 95% 05/30/2024 7:40 AM PAINTER HELPER SIGN Inhaled Oxygen Concentration - - Weight 57.6 kg (126 lb 15.8 oz) 05/30/2024 5:45 AM PAINTER HELPER SIGN Height 162.6 cm (5' 4 ) 05/29/2024 6:49 AM PAINTER HELPER SIGN Body Mass Index 21.8 05/29/2024 6:49 AM PAINTER HELPER SIGN Plan of Treatment Not on file Medical Devices Implanted Type Area Digital Producer Device Identifier Shelf Expiration Date Model / Serial / Lot [employer] Occluder Amplatzer Talisman Pfo 25-18mm [id number] - [id number] Implanted:Qty: 1 on 05/29/2024 by Gallo Diehl MD at [facility] Septal Defect Closure Device [employer] 03/27/2025 [id number] / / [employer] System Closure Repair Femoral Artery Suture Mediated Perclose Prostyle 97163-40 - [id number] Implanted:Qty: 1 on 05/29/2024 by Gallo Diehl MD at [facility] [employer] 02/24/2026 [id number] / / [id number] Procedures Procedure Name Priority Date/Time Associated Diagnosis Comments TRANSTHORACIC ECHO (TTE) LIMITED/FOLLOW UP W LTD DOPPLER/CF WO CONTRAST Routine 05/30/2024 8:27 AM PAINTER HELPER SIGN POCT GLUCOSE DEVICE Routine 05/30/2024 8 :18 AM PAINTER HELPER SIGN EGFR Routine 05/30/2024 4:01 AM PAINTER HELPER SIGN DIFFERENTIAL AUTO Routine 05/30/2024 4:0 1 AM PAINTER HELPER SIGN CBC WITH AUTO DIFFERENTIAL Routine 05/30/2024 4:01 AM PAINTER HELPER SIGN BASIC METABOLIC PANEL Routine 05/30/2024 4:01 AM PAINTER HELPER SIGN POCT GLUCOSE DEVICE Routine 05/29/2024 9 :18 PM PAINTER HELPER SIGN POCT GLUCOSE DEVICE Routine 05/29/2024 5 :54 PM PAINTER HELPER SIGN POCT GLUCOSE DEVICE Routine 05/29/2024 1 2:52 PM PAINTER HELPER SIGN POCT GLUCOSE DEVICE Routine 05/29/2024 8 :58 AM PAINTER HELPER SIGN ATRIAL SEPTAL DEFECT CLOSURE Routine 05/29/2024 8:38 AM PAINTER HELPER SIGN PFO (patent foramen ovale) OK AN ELECTIVE ENDOTRACHEAL AIRWAY Routine 05/29/2024 8:12 AM PAINTER HELPER SIGN ECG 12-LEAD Routine 05/29/2024 7:03 AM PAINTER HELPER SIGN POCT GLUCOSE DEVICE Routine 05/29/2024 6 :38 AM PAINTER HELPER SIGN URINALYSIS AND REFLEX TO MICROSCOPIC AND CULTURE Routine 05/25/2024 12:12 PM PAINTER HELPER SIGN Pre-op testing XR FOOT RIGHT 3 OR MORE VIEWS Schedule Routine, Read Routine (OP Routine) 05/24/2024 1:24 PM PAINTER HELPER SIGN Left foot pain XR FOOT LEFT 3 OR MORE VIEWS Schedule Routine, Read Routine (OP Routine) 05/24/2024 1:24 PM PAINTER HELPER SIGN Right foot pain HEMOGLOBIN A1C Routine 04/12/2018 5:45 AM PAINTER HELPER SIGN LIPID PANEL Routine 04/12/2018 5:45 AM PAINTER HELPER SIGN from Last 3 Months or Most Recently Relevant to Health Maintenance Results * TRANSTHORACIC ECHO (TTE) LIMITED/FOLLOW UP W LTD DOPPLER/CF WO CONTRAST (05/30/2024 8:27 AM PAINTER HELPER SIGN) Anatomical Region Laterality Modality Ultrasound 05/30/2024 7:49 AM PAINTER HELPER SIGN Narrative 05/30/2024 12:27 [place] [address] Limited Echocardiogram Report Patient Name: PAULA ORELLANA S : 1960 Study Date: 05/30/2024 7:49:55 AM Gender: F Tech: THAD Location: [id number] Ref Provider: GALLO DIEHL Height(Cm): 163 BSA: [...] DO, JASPREET MONACO FASNC 05/30/2024 12:27:25 PM PAINTER HELPER SIGN Procedure Note Zeina Zamora DO - 05/30/2024 [place] [address] Limited Echocardiogram Report Patient Name: PAULA ORELLANA S : 1960 Study Date: 05/30/2024 7:49:55 AM Gender: F Tech: THAD Location: [id number] Ref Provider: GALLO DIEHL Height(Cm): 163 BSA: [...] DO, JACINDA, JASPREET, LOU 05/30/2024 12:27:25 PM PAINTER HELPER SIGN us Gallo Diehl MD CV ECHO PROCEDURES Final Result * POCT glucose (05/30/2024 8:18 AM PAINTER HELPER SIGN) Glucose, POC 127 70 - 199 mg/dL Blood 05/30/2024 8:18 AM PAINTER HELPER SIGN 05/30/2024 8:18 AM PAINTER HELPER SIGN us Gallo Diehl MD LAB POCT ORDERABLES - [place] [address] [address] Department [place] [address] * eGFR (05/30/2024 4:01 AM PAINTER HELPER SIGN) eGFR 61 >=60 mL/min/1. 73 m2 Comment: [...] last reviewed 2021. Blood 05/30/2024 4:01 AM PAINTER HELPER SIGN 05/30/2024 4:33 AM PAINTER HELPER SIGN us Gallo Diehl MD LAB BLOOD ORDERABLES Final Resu lt [facility] [address] Department [place] [address] * Differential, auto (05/30/2024 4:01 AM PAINTER HELPER SIGN) Neutrophil abs 6.5 1.5 - 6.5 K/cumm Imm gran abs 0.0 0.0 - 0.1 K/cumm [facility] Lymphocyte abs 1.2 0.8 - 3.3 K/cumm [facility] Monocyte abs 0.6 0.2 - 0.8 K/cumm [facility] Eosinophil abs 0.0 0.0 - 0.5 K/cumm [facility] Basophil abs 0.0 0.0 - 0.1 K/cumm [facility] Neutrophil pct 77.2 % [facility] Comment: Interpretive Data Percent cell count reference ranges are not reported, since discordance with absolute values may lead to misinterpretation of CBC data. Current Interpretive Data was last revised on 2017. Imm gran pct 0.5 % [facility] Comment: Interpretive Data Percent cell count reference ranges are not reported, since discordance with absolute values may lead to misinterpretation of CBC data. Current Interpretive Data was last revised on 2017. Lymphocyte pct 14.4 % [facility] Comment: Interpretive Data Percent cell count reference ranges are not reported, since discordance with absolute values may lead to misinterpretation of CBC data. Current Interpretive Data was last revised on 2017. Monocyte pct 7.5 % [facility] Comment: Interpretive Data Percent cell count reference ranges are not reported, since discordance with absolute values may lead to misinterpretation of CBC data. Current Interpretive Data was last revised on 2017. Eosinophil pct 0.2 % [facility] Comment: Interpretive Data Percent cell [...] revised on 2017. Blood 05/30/2024 4:01 AM PAINTER HELPER SIGN 05/30/2024 4:12 AM PAINTER HELPER SIGN Gallo Diehl MD LAB BLOOD ORDERABLES Final Resu lt Performing Organization Address City/[facility]/ZIP Co de Phone Number VIKRAM [address] [place] [address] * (ABNORMAL) CBC with auto differential (05/30/2024 4:01 AM PAINTER HELPER SIGN) WBC 8.5 3.8 - 9.9 K/cumm Hgb [...] K/cumm [facility] Blood 05/30/2024 4:01 AM PAINTER HELPER SIGN 05/30/2024 4:12 AM PAINTER HELPER SIGN Gallo Diehl MD LAB BLOOD ORDERABLES Final Resu lt [facility]KRAM [address] Department [place] [address] * Basic metabolic panel (05/30/2024 4:01 AM PAINTER HELPER SIGN) Sodium 141 135 - 145 mmol/L Potassium, pl 3.8 3.3 - 4.9 mmol/L [facility] Chloride 103 97 - 110 mmol/L [facility] CO2 25 22 - 32 mmol/L [facility] Anion gap 13 2 - 15 mmol/L [facility] BUN 22 6 - 25 mg/dL [facility] Creatinine 1.02 0.60 - 1.10 mg/dL [facility] Glucose 128 70 - 199 mg/dL [facility] Comment: Interpretive Data Fasting glucose [...] classification and Diagnosis of Diabetes Diabetes Care 202; 46: S19-S40. Current interpretive data was last revised 2022. Calcium 9.8 8.5 - 10.3 mg/dL [facility] Blood 05/30/2024 4:01 AM PAINTER HELPER SIGN 05/30/2024 4:33 AM PAINTER HELPER SIGN Gallo Diehl MD LAB BLOOD ORDERABLES Final Resu lt Performing Organization Address City/[facility]/ZIP Co de Phone Number VIKRAM [address] [place] [address] * (ABNORMAL) POCT glucose (05/29/2024 9:18 PM PAINTER HELPER SIGN) Glucose, POC 213(H) 70 - 199 mg/dL Blood 05/29/2024 9:18 PM PAINTER HELPER SIGN 05/29/2024 9:18 PM PAINTER HELPER SIGN Gallo Diehl MD LAB POCT ORDERABLES - DEVICE Fi nal Result Performing Organization Address City/[facility]/ZIP Co de Phone Number VIKRAM [facility]RASHER [address] [place] [address] * POCT glucose (05/29/2024 5:54 PM PAINTER HELPER SIGN) Glucose, POC 115 70 - 199 mg/dL Blood 05/29/2024 5:54 PM PAINTER HELPER SIGN 05/29/2024 5:54 PM PAINTER HELPER SIGN Gallo Diehl MD LAB POCT ORDERABLES - DEVICE Fi nal Result Performing Organization Address [facility] Co de Phone Number VIKRAM THRASHER [address] [facility] [place] [address] * (ABNORMAL) POCT glucose (05/29/2024 12:52 PM PAINTER HELPER SIGN) Glucose, POC 224(H) 70 - 199 mg/dL Blood 05/29/2024 12:5 2 PM PAINTER HELPER SIGN 05/29/2024 12:52 PM PAINTER HELPER SIGN Gallo Diehl MD LAB POCT ORDERABLES - DEVICE Fi nal Result Performing Organization Address [facility] de Phone Number VIKRAM [address] [place] [address] * POCT glucose (05/29/2024 8:58 AM PAINTER HELPER SIGN) Glucose, POC 120 70 - 199 mg/dL Blood 05/29/2024 8:58 AM PAINTER HELPER SIGN 05/29/2024 8:58 AM PAINTER HELPER SIGN Gallo Diehl MD LAB POCT ORDERABLES - DEVICE Fi nal Result Performing Organization Address [facility] de Phone Number VIKRAM THRASH[address] [place] [address] * ATRIAL SEPTAL DEFECT CLOSURE (05/29/2024 8:38 AM PAINTER HELPER SIGN) Anatomical Region Laterality Modality X-Ray Angiograph y Narrative 05/29/2024 8:48 AM PAINTER HELPER SIGN Table formatting from the original result was not included. ATRIAL SEPTAL DEFECT (ASD), PATENT FORAMEN OVALE (PFO), FENESTRATION CLOSURE 49599 Brief Op Note Attending Electrical Repairer: Gallo Diehl MD Primary: Gallo Diehl MD CV Documenter: Selam Hernández RN CV Scrub: Ezra Douglass; Avis Lance CV Certified Income Tax Preparer: Patricia Bowen RN; Shawna Cooper RN Date of Procedure: 05/29/2024 Specimens: No specimen collected in procedure Preoperative Diagnosis: Pre-op Diagnosis * PFO (patent foramen ovale) [Q21.12] Postoperative Diagnosis: Post-op Diagnosis * PFO (patent foramen ovale) [Q21.12] Name of Procedure: Procedure(s): ATRIAL SEPTAL DEFECT (ASD), PATENT FORAMEN OVALE (PFO), FENESTRATION CLOSURE [id number] Implants: Implant Name Type Inv. Item Serial No. Digital Producer Lot No. LRB No. Used Action [employer] System Closure Repair Femoral Artery Suture Mediated Perclose Prostyle 95557-65 - [id number] [employer] System Closure Repair Femoral Artery Suture Mediated Perclose Prostyle 60760-63 [employer] [id number] N/A 1 Implanted [employer] Occluder Amplatzer Talisman Pfo 25-18mm [id number] - [id number] Septal Defect Closure Device [employer] Occluder [...] was proctored by Dr. Brandan Cifuentes from [facility]. COMPLICATIONS: None ESTIMATED BLOOD LOSS: 5 mL [...] CARDIAC CATH PROCEDURES Yuli l Result * OK AN ELECTIVE ENDOTRACHEAL AIRWAY (05/29/2024 8:12 AM PAINTER HELPER SIGN) Narrative Gerald Retana AA - 05/29/2024 8:12 AM PAINTER HELPER SIGN Gerald Retana AA 05/29/2024 8:13 AM Airway [...] * ECG 12 lead (05/29/2024 7:03 AM PAINTER HELPER SIGN) 05/29/2024 7:03 AM PAINTER HELPER SIGN Narrative [facility] - 05/29/2024 11:11 AM PAINTER HELPER SIGN Vent Rate: 68 bpm RR Interval: 878 msec OK Interval: 184 msec QRS Duration: 97 msec QT Interval: 425 msec QTC Interval: 442 msec P-R-T [place]: 72 - -19 - 60 degrees IMPRESSION: SINUS RHYTHM SEPTAL MYOCARDIAL INFARCTION , PROBABLY OLD VERSUS POOR R-WAVE PROGRESSION ABNORMAL ECG Electronically Signed By: Pantera Wiggins MD Gallo Diehl MD ECG ORDERABLES Final Result Performing Organization Address [facility] Co de Phone Number [facility] * POCT glucose (05/29/2024 6:38 AM PAINTER HELPER SIGN) Glucose, POC 111 70 - 199 mg/dL Blood 05/29/2024 6:38 AM PAINTER HELPER SIGN 05/29/2024 6:38 AM PAINTER HELPER SIGN Gallo Diehl MD LAB POCT ORDERABLES - DEVICE Fi nal Result Performing Organization Address City/[facility]/ZIP Co de Phone Number VIKRAM [address] Department [place] [address] * Urinalysis reflex to microscopic and culture Urine, clean voided
--- OUTSIDE RECORDS SUMMARY | 2024-08-13 14:10 | XMS_ITS ---
Author Organization [facility] Address [address] [place] [address] Care Team Providers Care Planner Internship Name Role Phone Agutsin Flor MD Primary Care Provider [phone] Annie Simpson MD Unavailable [phone] Active Problems Problem Noted Date Diagnosed Date PFO (patent foramen ovale) 02/22/2024 Assessment & Plan (02/22/2024 9:06 AM POWER SHEAR OPERATOR): She has followed with cardiology and has now seen a surgeon with plans for repair in the next several months We will reassess her dyspnea after her recovery from this procedure Centrilobular emphysema 02/22/2024 Assessment & Plan (02/22/2024 9:05 AM POWER SHEAR OPERATOR): Continue Trelegy Ellipta 100 daily Albuterol [...] 02/21 Assessment & Plan (02/22/2024 9:06 AM POWER SHEAR OPERATOR): Last CT chest in November of [...]
== END 2024-08-13 14:05 | disposition home or self-care (01) ==
PROVIDERS: PCP Internal Medicine; Visit Provider Internal Medicine
DX: R07.9 Chest pain, unspecified (principal)
CPT/HCPCS: 71046

== ENCOUNTER 2024-09-25 18:55 | Inpatient (IN) | payer MEDICARE, MEDICAID, SELFPAY ==
--- NOTE | ~2024-09-25 | XR_ITS ---
XR chest 2V Ordering provider: Kristyn Tong MD History: 64 years Female with . chest pain; SOB . Comparison: August 13, 2024 FINDINGS: MEDIASTINUM: The cardiac silhouette is not enlarged. Valve prostheses is noted. Device is projected over the left hemithorax. LUNGS: No infiltrates, effusions or pneumothorax. Underlying emphysematous changes. OTHER: No free air under the diaphragm. IMPRESSION: No acute cardiopulmonary pathology. Reviewed, dictated and finalized at location A.
--- NOTE | ~2024-09-25 | NM_ITS ---
EXAMINATION: NM ynes stress w perfusion DATE: 09/27/2024 12:31 INDICATION: Chest pain TECHNIQUE: Rest images were obtained following intravenous administration of 9.3 mCi Tc99m tetrofosmi n (Myoview). The patient was infused intravenously with Lexiscan (Regadenoson). Then, 30.9 mCi Tc99m tetrofosmin (Myoview) was administered intravenously, and stress images were obtained comminuted in t he supine position with repeat post stress images obtained in the prone position. Data was reconstruc billy into short axis and horizontal and vertical long axis SPECT images. Gated SPECT images were also obtained. COMPARISON: None. FINDINGS: There is mild diaphragmatic attenuation artifact along the inferior wall on the post stress images obtained in the supine position which normalizes on prone imaging. There is no definite rever sible or fixed perfusion abnormality to suggest ischemia or infarction. There is normal left ventric ular chamber size, wall motion and ejection fraction. Left ventricular ejection fraction measures >7 0%. IMPRESSION: 1. Normal myocardial perfusion at rest and during stress. 2. Left ventricular ejection fraction measuring >70%. Reviewed, dictated and finalized at location B.
[2024-09-25 18:53] VITALS: BP 166/91; PULSE 92; RESP 17; TEMP 36.7; O2SAT 100
--- NOTE | 2024-09-25 19:07 | ECG_ITS ---
Test Date: 2024-09-25 19:31:59 Measurements Intervals Lee Rate: 97 P: 83 TN: 167 QRS: 11 QRSD: 108 T: 60 QT: 390 QTc: 497 Interpretive Statements SINUS RHYTHM POSSIBLE LEFT ATRIAL ENLARGEMENT [-0.1mV P-WAVE IN V1/V2] INCOMPLETE RIGHT BUNDLE BRANCH BLOCK [90+ ms QRS DURATION, TERMINAL R IN V1/V2, 40+ ms S IN I/aVL/V4/V5/V6] ABNORMAL ECG Compared to ECG 06/28/2024 21:30:32 NO CHANGE Electronically Signed On 09-26-2024 12:36:21 CDT by Agustin Fontanez M.D.
[2024-09-25 19:47] LABS: Hematocrit 38.3 % (37.0-47.0); Hemoglobin 12.6 g/dL (12.0-15.0); Immature Granulocyte Percent A 0.3 % (0-0.5); Lymphocytes Absolute Auto 0.75 K/mm3 (0.9-3.2); Mean Corpuscular HGB Conc 32.9 g/dl (32-36); Mean Corpuscular Hemoglobin 27.9 pg (26-34); Mean Corpuscular Volume 84.9 fl (80-100); Nucleated Red Blood Cells Absolute Auto 0.000 K/mm3 (0.0-0.012); Nucleated Red Blood Cells Perc 0.0 % (0.0-0.2); Platelet Count Result 169 k/mm3 (150-375); Red Blood Count 4.51 M/mm3 (4.2-5.4); White Blood Count 6.6 K/mm3 (4.5-10.0)
[2024-09-25 19:56] LABS: Alanine Aminotransferase 33 U/L (6-35); Albumin Level 4.7 g/dL (3.5-5.1); Alkaline Phosphatase 62 U/L (38-126); Anion Gap 13 mmol/L (4-12); Aspartate Amino Transferase 37 U/L (14-36); Bilirubin,Total 0.4 mg/dL (0.2-1.3); Blood Urea Nitrogen 19 mg/dL (7-17); Calcium 10.1 mg/dL (8.4-10.2); Carbon Dioxide 24 mmol/L (22-30); Chloride 90 mmol/L (98-107); Estimated CRCL calculation 56 ml/min; Estimated Glomerular Filt Rate > 60; Glucose 199 mg/dL (65-110); Lipase 60 U/L (23-300); Potassium 3.2 mmol/L (3.4-5.0); Sodium 127 mmol/L (137-145); Total Protein 6.9 g/dL (6.3-8.2)
[2024-09-25 19:57] LABS: INR 0.9; Prothrombin Time 12.6 Seconds (11.1-14.7)
[2024-09-25 19:58] LABS: Partial Thromboplastin Time 29.2 Seconds (22.3-36.8)
[2024-09-25] MEDS: MORPHINE SULFATE (*CRX) 4 MG/ML INJ IV PUSH (20:01)
[2024-09-25] MEDS: ONDANSETRON INJ 4 MG/2 ML VIAL IV PUSH (20:02)
[2024-09-25 20:06] VITALS: BP 179/92; PULSE 95; RESP 22; O2SAT 100
[2024-09-25 20:08] LABS: Troponin I < 0.012 ng/mL (0.000-0.034)
--- OUTSIDE RECORDS SUMMARY | 2024-09-25 20:31 | XMS_ITS | Continuity of Care Document ---
Author Organization [facility] Address [address] [place] [address] Insurance Providers Payer Plan Claims Address Claims Phone Policy Number Group Number Relation Employer Guarantor Name Guarantor Guarantor Address Guarantor Phone MEDIC [employer] [address] [address], [place] [address] tel:[phone] Hernán Lomeli 1960 [facility], [place] [address] MEDIC AID [employer] [address] [address], [place] [address] tel:[phone] Hernán Lomeli 1960 [facility], [place] [address] [facility] MEDIC ARE ADV [address] [address], [place] [address] tel:[phone] Hernán Lomeli 1960 [facility], [place] [address] Problems Unknown Problems Results No [...]
--- OUTSIDE RECORDS SUMMARY | 2024-09-25 20:32 | XMS_ITS | Data Portability ---
Author Organization [place] [facility], Main Office Address [address] [place] [address] Care Team Providers Care Test Grader Name Role Phone SHIELA FLOR Primary Care Provider SHIELA FLOR Referring Provider Assessment Encounter Date Assessment Date Assessment LastModified by Organization Details LastModified Time 11/30/2022 11/30/2022 Parking placard blood pressure diabetes hyperlipidemia discussed follow-up 3 month [email or web address] Not available 11/30/2022 22:36:44 02/01/2023 02/01/2023 Podiatry She can see Ortho as well Continue with her medicines for her hyperlipidemia diabetes and hypertension Follow-up with me in a month [email or web address] Not available 02/02/2023 21:20:40 03/07/2023 03/07/2023 Given her previous cardiac history will get her set up with Cardiology for surgical clearance blood pressure appears to be well-controlled at 110/62 blood work will also be ascertained for biochemical management of disease processes of medications follow-up with me in about 3 months [email or web address] Not available 03/28/2023 18:10:16 07/30/2024 07/30/2024 64-year-old [...] this plan. [email or web address] Not available 07/30/2024 11:32:53 09/10/2024 09/10/2024 HPI: 64-year-old female, wheelchair bound, presents today with her sister for follow-up of right knee pain. This is a result of injury when transferring from bed to wheelchair, and she twisted her knee. Treatment has been cortisone injection and physical therapy. Today, she reports no pain and improvement in strength with transfers. She currently rates her pain 0/10. Takes Advil as needed. No concerns today. Physical Exam: General: Normal appearance. No acute distress. Inspection: No evidence of swelling, erythema, bruising or deformity. In a wheelchair. Palpation: Nontender to palpation ROM: 0-120 Motor: 5/5 strength. Sensation: Sensation intact. Assessment & Plan: Continue working with PT. If she would like another course of PT, she may call the office for a new order. Continue Advil as needed. Follow Up: As needed. All questions were answered. Patient verbalized understanding of treatment plan [email or web address] Not available 09/10/2024 11:47:49 Plan of Treatment Reminders Order Date Submit Date Provider Last Modified By Organization Details Last Modified Time Details Appointments None recorded. Lab CBC w/ auto diff 2022 023 [facility] (Lab), [address] [place], [address], 3 17:56:00 CMP, serum or plasma 2022 023 [facility] (Lab), [address] [place], [address], 3 19:22:35 lipid panel, serum 2022 023 [facility] (Lab), [address] [place], [address], 3 19:22:40 glycohemog lobin, total, blood 2022 023 [facility] (Lab), [address] [place], [address], 3 19:20:54 Referral physical therapist referral - Please schedule apt for R knee. Thanks 2024 025 [facility], [address] [place], [address], 5 15:32:[address] referral 2022 023 [email or web address] Annie Simpson MD, [address] [facility], [facility] [address], [place], [address], 4 19:10:44 Procedures injection/ aspiration joint/burs a (PROC) 2024 025 [email or web address] 1 In-Office Order, Internal Use Only DO Not Attach Compendium DO Not Attach Compendium, Do Not Delete/merge, [id number] 5 11:11:06 Surgeries None recorded. Imaging None recorded. Medication Orders bupivacain e HCl 0.5 % (5 mg/mL) injection solution [address] [id number], [address], [place], [place], [id number], 11:52:41 Kenalog 10 mg/mL suspension for injection 2024 025 [email or web address] [id number], [address], [place], [place], [id number], 11:52:41 Patient TargetsNo targets recorded. Patient InstructionsNo instructions recorded. Reason for Referral Communications Clerk Referral for Pr e-surgery evaluation Referring Physician: [...] 5.0 x10'3 /uL 4.2-10 .8 Not Available [facility] (Lab) [address] [place], [address], 03/07/2023 17:56:00 03/07/20 23 03/07/2023 CBC/C OMPLE TE BLD COUNT W/DIF F red blood cells 4.22 x10'6 /uL 3.80-5 .20 Not Available [facility] (Lab) [address] [place], [address], 03/07/2023 17:56:00 03/07/20 23 03/07/2023 CBC/C OMPLE TE BLD COUNT W/DIF F hemoglobin 12.6 g/dL 12.0-1 5.6 Not Available [facility] (Lab) [address] [place], [address], 03/07/2023 17:56:00 12/11/20 23 03/07/2023 CBC/C OMPLE TE BLD COUNT W/DIF F hematocrit 40.4 % 35.7-4 5.7 Not Available [facility] (Lab) [address] [place], [address], 03/07/2023 17:56:00 03/07/20 23 03/07/2023 CBC/C OMPLE TE BLD COUNT W/DIF F mean red cell volume 95.7 fL 82.0-9 9.0 Not Available [facility] (Lab) [address] [place], [address], 03/07/2023 17:56:00 03/07/20 23 03/07/2023 CBC/C OMPLE TE BLD COUNT W/DIF F mean red cell hemoglobin 29.9 pg 27.0-3 3.0 Not Available [facility] (Lab) [address] [place], [address], 03/07/2023 17:56:00 03/07/20 23 03/07/2023 CBC/C OMPLE TE BLD COUNT W/DIF F mean RBC HGB concentratio n 31.2 g/dL 31.0-3 6.0 Not Available [facility] (Lab) [address] [place], [address], 03/07/2023 17:56:00 03/07/20 23 03/07/2023 CBC/C OMPLE TE BLD COUNT W/DIF F red cell distribution width 14.4 % 11.8-1 5.5 Not Available [facility] (Lab) [address] [place], [address], 03/07/2023 17:56:00 03/07/20 23 03/07/2023 CBC/C OMPLE TE BLD COUNT W/DIF F platelets 204 x10'3 /uL 150-40 0 Not Available [facility] (Lab) [address] [place], [address], 03/07/2023 17:56:00 03/07/20 23 03/07/2023 CBC/C OMPLE TE BLD COUNT W/DIF F mean platelet volume 9.9 fL 9.0-12 .4 Not Available [facility] (Lab) [address] [place], [address], 03/07/2023 17:56:00 03/07/20 23 03/07/2023 CBC/C OMPLE TE BLD COUNT W/DIF F neutrophils 71.4 % 39.0-7 2.0 Not Available [facility] (Lab) [address] [place], [address], 03/07/2023 17:56:00 03/07/20 23 03/07/2023 CBC/C OMPLE TE BLD COUNT W/DIF F lymphocytes 14.7 % 16.0-4 7.0 low Not Available [facility] (Lab) [address] [place], [address], 03/07/2023 17:56:00 03/07/20 23 03/07/2023 CBC/C OMPLE TE BLD COUNT W/DIF F monocytes 10.7 % 5.0-12 .0 Not Available [facility] (Lab) [address] [place], [address], 03/07/2023 17:56:00 03/07/20 23 03/07/2023 CBC/C OMPLE TE BLD COUNT W/DIF F eosinophils 2.0 % 1.0-7. 0 Not Available [facility] (Lab) [address] [place], [address], 03/07/2023 17:56:00 03/07/20 23 03/07/2023 CBC/C OMPLE TE BLD COUNT W/DIF F basophils 0.8 % 0.0-2. 0 Not Available [facility] (Lab) [address] [place], [address], 03/07/2023 17:56:00 03/07/20 23 03/07/2023 CBC/C OMPLE TE BLD COUNT W/DIF F immature granulocytes 0.4 % 0.00-0 .50 Not Available [facility] (Lab) [address] [place], [address], 03/07/2023 17:56:00 03/07/20 23 03/07/2023 CBC/C OMPLE TE BLD COUNT W/DIF F neutrophils, absolute count 3.54 x10'3 /uL 1.5-8. 0 Not Available [facility] (Lab) [address] [place], [address], 03/07/2023 17:56:00 03/07/20 23 03/07/2023 CBC/C OMPLE TE BLD COUNT W/DIF F lymphocytes, absolute count 0.73 x10'3 /uL 1.07-3 .43 low Not Available [facility] (Lab) [address] [place], [address], 03/07/2023 17:56:00 03/07/20 23 03/07/2023 CBC/C OMPLE TE BLD COUNT W/DIF F monocytes, absolute count 0.53 x10'3 /uL 0.29-0 .99 Not Available [facility] (Lab) [address] [place], [address], 03/07/2023 17:56:00 03/07/20 23 03/07/2023 CBC/C OMPLE TE BLD COUNT W/DIF F eosinophils, absolute count 0.10 x10'3 /uL 0.02-0 .53 Not Available [facility] (Lab) [address] [place], [address], 03/07/2023 17:56:00 03/07/20 23 03/07/2023 CBC/C OMPLE TE BLD COUNT W/DIF F basophils, absolute count 0.04 x10'3 /uL 0.01-0 .08 Not Available [facility] (Lab) [address] [place], [address], 03/07/2023 17:56:00 03/07/20 23 03/07/2023 CBC/C OMPLE TE BLD COUNT W/DIF F immature granulocytes ,absolute 0.02 x10'3 /uL 0.00-0 .05 Not Available [facility] (Lab) [address] [place], [address], 03/07/2023 17:56:00 03/07/20 23 03/07/2023 CBC/C OMPLE TE BLD COUNT W/DIF F nucleated red blood cells 0.0 % -0 Not Available [facility] (Lab) [address] [place], [address], 03/07/2023 17:56:00 03/07/20 23 03/07/2023 CBC/C OMPLE TE BLD COUNT W/DIF F NRBC# 0.00 x10'3 /uL Not Available [facility] (Lab) [address] [place], [address], 03/07/2023 17:56:00 03/07/20 23 03/07/2023 HEMOG LOBIN A1C HA1C 6.1 % 4.0-6. 0 high Diabe ash Scree luis fernando Crite jacqueline: <5.7% Consi stent with absen ce of diabe ash 5.7-6 .4% Consi stent with incre ased risk for diabe ash (pred iabet es) >OR=6 .5% Consi stent with diabe ash REFER ENCE: Diabe ash Care 2016, 39(Mejia ppl.1 ):s13 -s22 Not Available [facility] (Lab) [address] [place], [address], 03/07/2023 19:20:54 03/07/20 23 03/07/2023 COMPR EHENS ROBEL METAB OLIC PANEL sodium 141 mmol/ L 137-14 5 Not Available [facility] (Lab) [address] [place], [address], 03/07/2023 19:22:35 03/07/20 23 03/07/2023 COMPR EHENS ORBEL METAB OLIC PANEL potassium 3.8 mmol/ L 3.5-5. 1 Not Available [facility] (Lab) [address] [place], [address], 03/07/2023 19:22:35 03/07/20 23 03/07/2023 COMPR EHENS ROBEL METAB OLIC PANEL chloride 103 mmol/ L 98-107 Not Available [facility] (Lab) [address] [facility], [address], 03/07/2023 19:22:35 03/07/20 23 03/07/2023 COMPR EHENS ROBEL METAB OLIC PANEL carbon dioxide 30 mmol/ L 22-30 Not Available [facility] (Lab) [address] [place], [address], 03/07/2023 19:22:35 03/07/20 23 03/07/2023 COMPR EHENS ROBEL METAB OLIC PANEL anion gap 11.8 mmol/ L 14-22 low Not Available [facility] (Lab) [address] [place], [address], 03/07/2023 19:22:35 03/07/20 23 03/07/2023 COMPR EHENS ROBEL METAB OLIC PANEL glucose 84 mg/dL 70-99 Not Available [facility] (Lab) [address] [place], [address], 03/07/2023 19:22:35 03/07/20 23 03/07/2023 COMPR EHENS ROBEL METAB OLIC PANEL BUN 25 mg/dL 8-19 high Not Available [facility] (Lab) [address] [facility], [address], 03/07/2023 19:22:35 03/07/20 23 03/07/2023 COMPR EHENS ROBEL METAB OLIC PANEL creatinine 0.77 mg/dL 0.66-1 .25 Not Available [facility] (Lab) [address] [place], [address], 03/07/2023 19:22:35 03/07/20 23 03/07/2023 COMPR EHENS ROBEL METAB OLIC PANEL GFR >60 Refer ence Range : [place] GFR Healt hy Adult : >60 [...] or ethni c subgr oups, such as Hisil nics. Outsi de the valid ated [place] [...] calcu lator is avail able on the F websi te: https ://ww w.kid rashida.o rg/pr ofess ional s/kdo qi/gf r_cal culat or Not Available [facility] (Lab) [address] [place], [address], 03/07/2023 19:22:35 03/07/20 23 03/07/2023 COMPR EHENS ROBEL METAB OLIC PANEL alkaline phosphatase 56 U/L 38-126 Not Available [facility] (Lab) [address] [place], [address], 03/07/2023 19:22:35 03/07/20 23 03/07/2023 COMPR EHENS ROBEL METAB OLIC PANEL alanine aminotransfe rase 27 U/L 0-35 Not Available [facility] (Lab) [address] [place], [address], 03/07/2023 19:22:35 03/07/20 23 03/07/2023 COMPR EHENS ROEBL METAB OLIC PANEL aspartate aminotransfe rase 25 U/L 15-37 Not Available [facility] (Lab) [address] [place], [address], 03/07/2023 19:22:35 03/07/20 23 03/07/2023 COMPR EHENS ROBEL METAB OLIC PANEL bilirubin, total 0.20 mg/dL 0.20-1 .30 Not Available [facility] (Lab) [address] [place], [address], 03/07/2023 19:22:35 03/07/20 23 03/07/2023 COMPR EHENS ROBEL METAB OLIC PANEL calcium 9.8 mg/dL 8.4-10 .2 Not Available [facility] (Lab) [address] [place], [address], 03/07/2023 19:22:35 03/07/20 23 03/07/2023 COMPR EHENS ROBEL METAB OLIC PANEL total protein 6.3 g/dL 6.3-8. 2 Not Available [facility] (Lab) [address] [place], [address], 03/07/2023 19:22:35 03/07/20 23 03/07/2023 COMPR EHENS ROBEL METAB OLIC PANEL albumin 4.1 g/dL 3.0-4. 4 Not Available [facility] (Lab) [address] [place], [address], 03/07/2023 19:22:35 03/07/20 23 03/07/2023 COMPR EHENS ROBEL METAB OLIC PANEL globulin 2.2 g/dL 2.6-4. 2 low Not Available [facility] (Lab) [address] [place], [address], 03/07/2023 19:22:35 03/07/20 23 03/07/2023 COMPR EHENS ROBEL METAB OLIC PANEL A/G ratio 1.9 ratio 1.0-2. 0 Not Available [facility] (Lab) [address] [place], [address], 03/07/2023 19:22:35 03/07/2003/07/2023 LIPID PANEL cholesterol 125 mg/dL 140-19 9 low NIH ITZEL NSUS RECOM MENDA TION FOR CESAAR STERO L: ADULT CHILD LOW RISK: <200 <170 BORDE RLINE : <200- 239 ----- HIGH RISK: >240 >200 Not Available [facility] (Lab) [address] [place], [address], 03/07/2023 19:22:40 03/07/2003/07/2023 LIPID PANEL triglyceride s 273 mg/dL 0-150 high NIH ITZEL NSUS REPOR T RECOM MENDA TION FOR TRIGL YCERI GIAN: ADULT CHILD LOW RISK: <150 ----- BODER LINE: 150-1 99 ----- HIGH RISK: >200 ----- Not Available [facility] (Lab) [address] [place], [address], 03/07/2023 19:22:40 03/07/20 23 03/07/2023 LIPID PANEL HDL cholesterol 63 mg/dL 40- Not Available [facility] (Lab) [address] [place] [address], [address], 03/07/2023 19:22:40 03/07/20 23 03/07/2023 LIPID PANEL [...] WILL NOT BE REPOR ARTHUR. Not Available [facility] (Lab) [address] [place], [address], 03/07/2023 19:22:40 Result Notes None recorded. Problems Name Problem SNOMED Code Status Onset Date Resolution Date Notes Provider Name and Address Organization Details Recorded Time Cellulitis of foot 311656110 Active 2021 Not Available [facility] 4 12:02:15 Computed tomography result abnormal 342444474 Active 2022 Not Available [facility] 4 12:02:15 Postoperat robel care Active 2021 Not Available [facility] 4 12:02:15 Chronic obstructiv e pulmonary disease 43185693 Active 2016 Not Available [facility] 4 12:02:15 CT of abdomen abnormal 2753011614390 9107 Active 2022 Not Available [facility] 4 12:02:15 Cirrhosis of liver 81000963 Active 2016 Not Available [facility] 4 12:02:15 Neuropathy due to diabetes mellitus 075493278 Active 2020 Not Available [facility] 4 12:02:15 Low back pain 500404812 Active 2021 Not Available [facility] 4 12:02:15 Chest pain 63039293 Active 2022 Not Available [facility] 4 12:02:15 Type 2 diabetes mellitus without complicati on 270390056 Active 2021 Not Available [facility] 4 12:02:15 Former heavy tobacco smoker 4406773911975 00 Active 2016 Not Available [facility] 4 12:02:15 Acute urinary tract infection 757550069 Active 2021 Not Available [facility] 4 12:02:15 Type 2 diabetes mellitus 08930044 Active 2020 Not Available [facility] 4 12:02:15 Cough 51633804 Active 2021 Not Available [facility] 4 12:02:15 Upper respirator y infection 30113490 Active 2021 Not Available [facility] 4 12:02:15 Hyperlipid emia 49729009 Active 2020 Not Available [facility] 4 12:02:15 Essential hypertensi on 00213546 Active 2020 Not Available [facility] 4 12:02:15 Otitis media 49745843 Active 2021 Not Available [facility] 4 12:02:15 Urinary tract infectious disease 12284735 Active 2021 Not Available [facility] 4 12:02:15 Closed fracture of fifth metatarsal bone 39032773 Active 2020 Not Available [facility] 4 12:02:15 Mental disorder 98098314 Active 2020 Not Available [facility] 4 12:02:15 COVID-19 590973109 Active 2021 Not Available [facility] 4 12:02:16 Hyponatrem ia 72944288 Active 2021 Not Available [facility] 4 12:02:16 Dysuria 11530267 Active 2022 Not Available [facility] 4 12:02:15 Flank pain 854878578 Active 2022 Not Available [facility] 4 12:02:15 Increased frequency of urination 837244808 Active 2022 Not Available [facility] 4 12:02:15 Urge incontinen ce of urine 11863098 Active 2022 Not Available [facility] 4 12:02:16 Dyspnea 463689803 Active 2022 Not Available [facility] 4 12:02:15 Nausea and vomiting 86749073 Active 2022 Not Available [facility] 4 12:02:15 Hydrourete r 27426802 Active 2022 Not Available [facility] 4 12:02:15 High grade B-cell lymphoma 064442363 Active 2022 Not Available [facility] 4 12:02:15 Uncontroll ed type 2 diabetes mellitus 126670767 Active 2022 Not Available [facility] 4 12:02:15 Pain of right knee joint 9388317626150 00 Active 2024 KINGSLEY Ocampo, Entrec [facility] 5 10:53:48 Osteoarthr itis of right knee joint 1999094888062 00 Active 2024 Rekha Nunez PA-C [address], [address], [place], [address] , [place] 5 11:47:43 Notes:Medical History: Depre ssion Rhinitis with postnasal drip Eosinophils 120/uL IgE 344 IU/mL Alpha-1 antitrypsin PiMM 149 mg% Mild COPD RUL 3 & 4 mm nodules since 2017 Granulomatous disease (chest, liver, spleen) Hypertension Hyperlipidemia T2DM CAD HELLEN Right hepatic cyst Bilateral renal cysts Thoracic DDD Left foot fracture Procedure History: T&A 1974 Immunization History: J&J Covid 06/02/2020 Some problems listed in Document: #[id number] could not be added to this patient's chart. Please review this document and add these problems to the patient's chart manually as needed. Problem Notes None recorded. Procedures Surgical History Date Name Laterality Status Provider Name and Address Organization Details Recorded Time 07/31/19 25 Ortho - Cortisone Injection completed Dawna Molina NP [address], [place], [address], [place] 07/30/2024 11:15:39 04/17/19 22 Foot Surgery completed Not Available [facility] 023 05:55:53 Tonsillectomy completed Not Available [facility] th 05/26/2022 05:55:53 [facility]sterectomy [facility] 05/26/2022 05:55:53 Imaging Results None recorded. Procedure Notes None recorded. Medical Equipment None Reported. Allergies Allergen ID Allergen Name Allergen Category Reaction Reaction Severity Criticality Documentation Date Start Date Code Code System Note Provider Name and Address Organization Details Recorded Time 19638 hydrochlo rothiazid e medicatio n Not available Not available Not available 05/26/2022 5487 RxNorm Not Available [facility] 3 06:08:25 34967 clonazepa m medicatio n Not available Not available Not available 05/26/2022 2598 RxNorm uncon troll ed muscl e movem ent Not Available [facility] 3 06:08:25 75959 chlorthal idone medicatio n Not available Not available Not available 05/26/2022 2409 RxNorm Not Available [facility] 3 06:08:25 45644 aspirin medicatio n eye swelling severe Not available 05/26/2022 1191 RxNorm Not Available [facility] 3 06:08:25 09966 azithromy john medicatio n facial swelling Not available Not available 05/26/2022 24645 RxNorm tongu e swell ing Not Available [facility] 3 06:08:25 75632 cefdinir medicatio n rash Not available Not available 04/21/20232023 03262 RxNorm Quin Vieira RN null, [place] - [facility] 4 16:44:05 Medications Name Sig Start Date [...] solution Take 4 mL by injectio n route. 2024 active Not Available Not Available Not Avai lable prednison e 20 mg tablet TAKE 2 TABLETS BY MOUTH EVERY DAY FOR 5 DAYS 07/30 completed Not Available Not Available Not Available [...] completed Not Available Not Available Not Available hydralazi ne 25 mg tablet TAKE 1 TABLET BY MOUTH TWICE DAILY FOR BLOOD PRESSURE IF GREATER THAN 150 SYSTOLIC active Not Available Not Available No t Available clopidogr el 75 mg tablet TAKE 1 TABLET BY MOUTH EVERY DAY active Not Available Not Available No t Available chlorthal idone 25 mg tablet TAKE 1 TABLET BY MOUTH EVERY DAY 02/22 completed Pt cardiolo gist stopped medicati on, started on HCTZ Not Available Not Available Not Available amlodipin e 5 mg tablet TAKE 1 TABLET BY MOUTH DAILY 07/30 completed Not Available Not Available Not Available prochlorp erazine maleate 10 mg tablet TAKE 1 TABLET BY MOUTH EVERY 6 HOURS NEEDED FOR NAUSEA OR VOMITING 02/01 completed ON HOLD Not Available Not Available Not Available valacyclo vir 500 mg tablet TAKE 1 TABLET BY MOUTH EVERY 12 HOURS active Not Available Not Available No t Available ciproflox acin 500 mg tablet TAKE 1 TABLET BY MOUTH EVERY 12 HOURS FOR 7 DAYS DIRECTED active Not Available Not Available [...] Available terbinafi ne HCl 250 mg tablet TAKE 1 TABLET BY [...] active Not Available Not Available Not Available nifedipin e ER 60 mg tablet,ex tended release 24 hr TAKE 1 TABLET BY MOUTH DAILY active Not Available Not Available No t Available tamsulosi n 0.4 mg capsule TAKE 1 CAPSULE BY MOUTH EVERY DAY DIRECTED 03/30 completed Not Available Not Available Not Available OneTouch Ultra Test strips TEST BLOOD SUGAR FOUR TIMES DAILY active Not Available Not Available No t Available Kenalog 10 mg/mL suspensio n for injection Take 1 mL by injectio n route. 2024 active [facility]: [phone] 4-20 Not Available Not Available Not Available amlodipin e 10 mg tablet TAKE 1 TABLET BY MOUTH DAILY active Not Available Not Available No t Available benzonata te 100 mg capsule TK [...] completed Not Available Not Available Not Available losartan 25 mg tablet TAKE 1 TABLET BY MOUTH DAILY active Not Available Not Available No t Available metoprolo l tartrate 50 mg tablet 11/13 completed Not Available Not Available Not Available sulfameth oxazole 200 mg-trimet hoprim 40 mg/5 mL oral suspensio n SHAKE LQ AND TK 20 ML PO Q 12 H WITH FOOD FOR 5 DAYS 10/15 completed Not Available Not Available Not Available gabapenti n 300 mg capsule TAKE 1 CAPSULE BY MOUTH THREE TIMES DAILY active [...] completed Not Available Not Available Not Available estradiol 0.01% (0.1 mg/gram) vaginal cream APPLY 1 GRAM INTO VAGINA 2 NIGHTS PER WEEK 07/30 completed Not Available Not Available Not Available [...] BY MOUTH TWICE DAILY FOR 7 DAYS 07/30 completed Not Available Not Available Not Available fluticaso ne propionat e 50 mcg/actua tion nasal spray,haley ruiz JUÁREZ LQ AND U 1 SPR IEN QD [...] mg-potass ium clavulana te 125 mg tablet TAKE 1 TABLET BY MOUTH EVERY 12 HOURS AFTER MEALS FOR 7 DAYS 07/30 completed Not Available Not Available Not Available [...] Available Not Available No t Available insulin lispro (U-100) 100 unit/mL subcutane ous pen ADMINIST ER 5 UNITS UNDER THE SKIN THREE TIMES DAILY 07/30 completed Not Available Not Available Not Available Novolog FlexPen U-100 Insulin aspart 100 [...] 1 CAPSULE BY MOUTH TWICE DAILY FOR 5 DAYS active Not Available Not Available No t Available BD Ultra-Fin e Mini Pen Needle 31 gauge x 06/10 USE TO INJECT INSULIN FOUR TIMES DAILY active [...] Short Pen Needle 31 gauge x 5/16 07/30 completed Not Available Not Available Not Available Januvia [...] 100 unit/mL (3 mL) subcutane ous pen INJECT 12 UNITS UNDER THE SKIN EVERY NIGHT AT BEDTIME active Not Available Not Available No t Available TRUEplus Lancets 30 gauge USE TWICE DAILY 03/10 completed Not Available Not Available Not Available BD Insulin Syringe Ultra-Fin e 0.3 mL 31 gauge x /16 USE 3 TIMES DAILY DIRECTED FOR INSULIN [...] Available Not Available Not Available Flucelvax Quad 8069-8124 (PF) 60 mcg (15 mcg x 4)/0.5 mL IM syringe ADM 0.5ML IM UTD 05/20 completed Not Available Not Available Not Available Trelegy Ellipta 100 mcg-62.5 mcg-25 mcg powder for inhalatio n INHALE 1 PUFF BY MOUTH EVERY DAY active Not Available Not Available No t Available OneTouch Ultra Blue Test Strip USE TO TEST TWICE DAILY 11/13 completed Not Available Not Available Not Available BD Veo Insulin Syringe Ultra-Fin e (half unit) 0.3 mL 31 gauge x 15/64 07/30 completed Not Available Not Available Not Available Phosphoro us 250 mg tablet TAKE 1 TABLET BY MOUTH THREE TIMES DAILY WITH FOOD 02/01 completed ON HOLD Not Available Not Available Not Available Novolin 70-30 FlexPen U-100 Insulin 100 unit/mL (70-30) subcutane ous 10/15 completed Not Available Not Available Not Available OneTouch Ultra2 Meter USE TO TEST BLOOD SUGAR TWICE DAILY 07/30 completed Not Available Not Available Not Available OneTouch Delica Plus Lancet 33 gauge TEST BLOOD SUGAR TWICE DAILY active Not Available Not Available No t Available Fluzone Quad (PF) 60 mcg (15 mcg x 4)/0.5 mL IM syringe ADM 0.5ML IM UTD 02/07 completed Not Available Not Available Not Available Paxlovid 150 mg-100 mg tablets in a dose pack (Moderate Renal Dose) Take 2 tablets twice a day by oral route for 5 days. 10/26 completed Pt GFR is 57 on 06/29/2021 Not Available Not Available Not Available FreeStyle Ron 3 Sensor device USE TWICE DAILY TO CHECK BLOOD SUGAR active Not Available Not Available No t Available FreeStyle Ron 3 [place] USE TWICE DAILY DIRECTED active Not Available Not Available No t Available Vitals Date Recorded Body height Body mass index (BMI) Body weight Provider Name and Address Organization Details Last Updated DateTime 07/30/2024 162.56 cm 24.5 kg/m2 07924.71 KINGSLEY Agarwal [place] [employer] [facility] [employer] 07/30/2024 10:49:49 Date Recorded Body height Body mass index (BMI) Body weight Provider Name and Address Organization Details Last Updated DateTime 09/10/2024 162.56 cm 24.5 kg/m2 36188.71 KINGSLEY Agarwal [place] 09/10/2024 11:28:17 Date Recorded Body height Body temperature Heart rate Systolic blood pressure Diastolic blood pressure Provider Name and Address Organization Details Last Updated DateTime 162.56 cm 97.5 [degF] 91 /min 114 mm[Hg] 68 mm[Hg] Ritika Espinoza RN [facility] [employer] [facility] 3 15:06:55 Date Recorded Body height Body temperature Heart rate Systolic blood pressure Diastolic blood pressure Provider Name and Address Organization Details Last Updated DateTime 02/01/2023 162.56 cm 97.4 [degF] 81 /min 110 mm[Hg] 68 mm[Hg] KINGSLEY Mccullough [facility] [employer] [facility] 3 15:10:12 Date Recorded Body height Body temperature Heart rate Oxygen saturation Oxygen saturation in Arterial blood by Pulse oximetry Systolic blood pressure Diastolic blood pressure Provider Name and Address Organization Details Last Updated DateTime 3 162.56 cm 97.5 [degF] 87 /min 95 % 95 % 110 mm[Hg] 62 mm[Hg] Estefani ThorneKINGSLEY [facility] [employer] [facility] 3 15:26:25 Social History Question Answer Notes LastModified by Organization Details LastModified Time Tobacco Smoking Status Former Smoker quit 2010 Not Available [facility] 05/26/2022 05:55:15 Do You Have An Advance Directive? No MIGRATION.030 [id number] Information not available 05/26/2022 Do You Wear A Helmet When Biking? No MIGRATION.030 [id number] Information not available 05/26/2022 What Is Your Level Of Caffeine Consumption? None MIGRATION.030 583391 Information not available 05/26/2022 In The 14 Days Before Symptom Onset, Have You Had Close Contact With A Laboratory-confi rmed COVID-19 While That Case Was Ill? No MIGRATION.030 296917 Information not available 05/26/2022 In The 14 Days Before Symptom Onset, Have You Had Close Contact With A Person Who Is Under Investigation For COVID-19 While That Person Was Ill? No MIGRATION.030 537251 Information not available 05/26/2022 What Type Of Diet Are You Following? REGULAR MIGRATION.030 783725 Information not available 05/26/2022 What Is The Highest Grade Or Level Of School You Have Completed Or The Highest Degree You Have Received? [id number] MIGRATION.030 051833 Information not available 05/26/2022 Have There Been Any Changes To Your Family Or Social Situation? No MIGRATION.030 629136 Information not available 05/26/2022 What Is The Fluoride Status Of Your Home? Unknown MIGRATION.0301 386488 Information not available 05/26/2022 When Did You Quit Smoking? 6-10yearssincelastc igarette MIGRATION.0301 926197 Information not available 05/26/2022 Are There Any Guns Present In Your Home? No MIGRATION.0301 184320 Information not available 05/26/2022 Do You Use Insect Repellent Routinely? No MIGRATION.0301 382690 Information not available 05/26/2022 Where Do You Live? [place]House MIGRATION.0301 417482 Information not available 05/26/2022 Do You Have A Medical Power Of Nitrogen Operator? No MIGRATION.0301 628598 Information not available 05/26/2022 What Was The Date Of Your Most Recent Tobacco Screening? 07/30/2024 [email or web address] Information not available 07/30/2024 Do You Have Any Pets? No MIGRATION.0301 967625 Information not available 05/26/2022 What Is Your Relationship Status? MIGRATION.0301 557677 Information not available 05/26/2022 Do You Use Your Seat Belt Or Car Seat Routinely? Yes MIGRATION.0301 539120 Information not available 05/26/2022 Do You Have Smoke And Carbon Monoxide Detectors In Your Home? Yes MIGRATION.0301 222038 Information not available 05/26/2022 At What Age Did You Start Smoking Tobacco? 16 MIGRATION.0301 746200 Information not available 05/26/2022 Are You Passively Exposed To Smoke? No MIGRATION.0301 644704 Information not available 05/26/2022 Are There Any Smokers In Your House? No MIGRATION.0301 127161 Information not available 05/26/2022 What Types Of Sporting Activities Do You Participate In? None MIGRATION.0301 849625 Information not available 05/26/2022 Do You Use Sunscreen Routinely? No MIGRATION.0301 204655 Information not available 05/26/2022 Has Tobacco Cessation Counseling Been Provided? No MIGRATION.0301 477348 Information not available 05/26/2022 Have You Recently Traveled Abroad? No MIGRATION.0301 947794 Information not available 05/26/2022 Do You Have Any Dietary Restrictions? No MIGRATION.0301 329548 Information not available 05/26/2022 Sex: Female Functional Status Question Answer Note LastModified by Organizat [employer] Details LastModified Time Do you use any illicit or recreational drugs? No MIGRATION.[id number] 026 Information not available 05/26/2022 Do you or have you ever used any other forms of tobacco or nicotine? No MIGRATION.2014468 026 Information not available 05/26/2022 What is your level of alcohol consumption? None quit 2007 MIGRATION.[id number] 026 Information not available 05/26/2022 What is your exercise level? Moderate MIGRATION.3786518 026 Information not available 05/26/2022 Mental Status Question Answer Note LastModified by Organizat [employer] Details LastModified Time Do you feel stressed (tense, restless, nervous, or anxious, or unable to sleep at night)? [id number] MIGRATION.[id number] Information not available 05/26/2022 Family History Relationship Description Onset Age of this Age Resolved Age Notes LastModified by Organization Details LastModified Time Mother Hypertensive disorder MIGRATION.647 [id number] Not available 05/26/2022 05:55:57 Mother Hyperlipidem ia MIGRATION.285 [id number] Not available 05/26/2022 05:55:57 Sister Hypertensive disorder MIGRATION.335 [id number] Not available 05/26/2022 05:55:57 Sister Malignant tumor of neck MIGRATION.962 [id number] Not available 05/26/2022 05:55:57 Sister Chronic obstructive pulmonary disease MIGRATION.073 [id number] Not available 05/26/2022 05:55:57 Brother Diabetes mellitus MIGRATION.251 [id number] Not available 05/26/2022 05:55:57 Medical History Condition Response NERVE DISEASE Y BLINDNESS N RHEUMATIC FEVER N KIDNEY STONES N BLADDER PROBLEMS N MRSA N OTHER # 1 N POLIO N LUNG DISEASE/DISORDER N HISTORY OF DRUG ABUSE N COPD Y RADIATION / CHEMOTHERAPY N Other # 2 N BLOOD DISEASES N EAR OR HEARING PROBLEMS N MUMPS N SHINGLES N BOWEL PROBLEMS Y DEPRESSION (INCLUDING POST ) Y STROKE/TIA Y ULCERS N BENIGN PROSTATIC HYPERPLASIA N MEASLES N HYPOTENSION N MYOCARDIAL INFARCTION N OBESITY N GERD/NAUSEA N ANEURYSM N URINARY/BLADDER/KIDNEY PROBLEMS Y CORONARY ARTERY DISEASE (CAD) N ADDICTION CONCERNS N ENDOMETRIOSIS N Impotence N USE OF BLOOD THINNERS Y SKIN PROBLEMS N GASTROINTESTINAL DISORDER N PERIPHERAL [...] HAVE YOU BEEN HOSPITALIZED OR SEEN IN [facility] IN THE PAST YEAR ? Y ATHEROSCLEROSIS N BREAST PROBLEMS N DIALYSIS N ECZEMA N OSTEOPOROSIS N ARTHRITIS Y APPENDICITIS N DIABETES, TYPE Y BAD TEETH [...] SCLEROSIS N CARDIAC ARRHYTHMIA N CANCER: SPECIFY Y ATRIAL FIBRILLATION N Gall Stones N PULMONARY EMBOLISM N AUTOIMMUNE DISEASE N Gynecological HistoryNo gynecological history recorded. Obstetrics History GPAL:G 0 P 0 0 0 0 Immunizations Vaccine Type Date Status Note Provider Nam e and Address Organization Details Recorded Time COVID-19, mRNA, LNP-S, PF, 30 mcg/0.3 mL dose 2 completed Not Available [facility] 04/22/2023 12:02:17 Influenza, high-dose, quadrivalent, PF 2 completed Not Available [facility] 04/22/2023 12:02:17 Influenza, split virus, quadrivalent, preservative 0 completed Not Available [facility] 04/22/2023 12:02:17 Influenza, split virus, quadrivalent, preservative 9 completed Not Available [facility] 04/22/2023 12:02:17 influenza, unspecified formulation 7 completed Not Available [facility] 04/22/2023 12:02:17 COVID-19, mRNA, LNP-S, PF, 30 mcg/0.3 mL dose 1 completed Not Available [facility] 04/22/2023 12:02:17 COVID-19 vaccine, vector-nr, rS-Ad26, PF, 0.5 mL 1 completed Not Available [facility] 04/22/2023 12:02:17 influenza, unspecified formulation 5 completed Not Available [facility] 04/22/2023 12:02:17 Influenza, split virus, quadrivalent, PF 1 completed Not Available [facility] 04/22/2023 12:02:17 Past Encounters Encounter ID Performer Location Encounter Start Date Encounter Closed Date Diagnosis/Indication Diagnosis SNOMED-CT Code Diagnosis ICD10 Code Diagnosis Note [id number] [facility] [address] [place] [address] 0 11/19/2020 00:00:00 11/19/2020 12:29:48 [id number] Jaya James MD [facility] [address] [address] 0 12/10/2020 00:00:00 12/10/2020 12:17:27 [id number] Sheila Flor MD [facility] Internal Med [facility] [address] [place] [address] 1 01/30/2021 00:00:00 02/08/2021 22:11:25 [id number] [facility] [address] [place] [address]0546-934 0 02/02/2021 00:00:00 02/02/2021 14:24:06 [id number] Alec Zuniga DPM [facility] Podiatr[address] [address] 0 02/10/2021 00:00:00 02/10/2021 12:54:52 [id number] Alec Zuniga DPM [facility] Podiatry [address] [address] 0 02/16/2021 00:00:00 02/16/2021 09:17:20 [id number] Alec Zuniga DPM [facility] Pod[facility]ry [facility] [address] [place] [address]1641-330 0 03/09/2021 00:00:00 03/09/2021 12:59:46 [id number] Shiela Flor MD [facility] Internal Med [facility] [address] [place] [address] 65670-188 1 03/30/2021 00:00:00 03/30/2021 22:56:25 [id number] [facility] [address] [place] [address]76-710 0 04/20/2021 00:00:00 04/20/2021 11:25:01 [id number] Alec Zuniga DPM [facility] [address] [place] [address]16-513 0 04/27/2021 00:00:00 04/27/2021 19:27:40 [id number] [facility] [address] [place] [address]50-616 0 05/04/2021 00:00:00 05/04/2021 15:45:18 [id number] Alec Zuniga DPM [facility] [address] [place] [address] 01644-055 0 05/11/2021 00:00:00 05/12/2021 08:55:56 [id number] [facility] D[facility] [address] [place] [address] 25971-323 0 05/25/2021 00:00:00 05/25/2021 12:49:04 [id number] Jaya James MD [facility] [address] [place] [address]31-368 0 06/11/2021 00:00:00 06/11/2021 14:54:15 [id number] Shiela Flor MD [facility] Internal Med [facility] [address] [place] [address]-810 1 06/29/2021 00:00:00 07/19/2021 16:09:18 [id number] Alec Zuniga DPM [facility] Podiatry [facility] [address] [place] [address] [address] [place] [address] 07/20/2021 00:00:00 07/20/2021 22:07:42 [id number] Shiela Flor MD [facility] Internal Med [facility] [address] [address] 1 08/12/2021 00:00:00 08/12/2021 21:04:41 [id number] Shiela Flor MD S_[facility] Internal Med [facility] [address] [address] 1 10/26/2021 00:00:00 11/10/2021 22:20:42 [id number] Shiela Flor MD [facility] Internal Med [facility] [address] [address] 1 02/01/2022 00:00:00 02/01/2022 22:49:54 [id number] Shiela Flor MD [facility] Internal Med [facility] [address] [address] 1 04/09/2022 00:00:00 04/09/2022 15:41:24 [id number] Shiela Flor MD [facility] Internal Med [facility] [address] [address] 1 05/07/2022 00:00:00 05/16/2022 16:17:25 [id number] Shiela Flor MD [facility] Internal Med [facility] [address] [address]888 1 05/31/2022 14:34:19 05/31/2022 15:41:31 Computed tomography result abnormal [id number] R93.89 [id number] Jean Claude Lopez NP [facility] ENT [facility] [address] [place], [place] [address] [place] [address] 07/02/2022 11:38:25 07/02/2022 12:42:22 Dysuria 56259950 R30.0 We discussed avoiding bladder irritants such as carbonated beverages, caffeine, spicy/ acidic foods, alcohol, and/ or tobacco products. Will send urine cytology due to irritative urinary symptoms and past heavy smoker. Flank pain 433188788 R10 .9 pain reproducib le with palpation. I suspect pain is nerve/musc uloskeleta l related. UA today is negative for blood. No history of stones. Will check renal ultrasound to rule in/ out urologic pathology. follow-up after renal ultrasound to discuss results. Increased frequency of urination 008835305 R35.0 Avoid bladder irritants. Limit fluids 2 hours prior to bedtime. If patient is unsuccessf ul with behavioral strategies may consider anticholin ergic/beta 3 agonist or PF PT. Urge incon tinence of urine 48402968 N39.41 [id number] Shiela Flor MD [facility]_G Internal Med [facility] 15 2043 [facility], [facility] [address] [place] [id number] 1 07/05/2022 14:31:37 07/05/2022 16:10:59 Dyspnea 137129953 R06.02 Computed t omography result abnormal 922840461 R93.89 Nausea and vomiting [id number] R11.2 [id number] Jean Claude Lopez NP [facility] [address] [place] [address] 07/19/2022 12:22:36 07/19/2022 13:07:12 Dysuria 06282792 R30.0 We discussed avoiding bladder irritants such as carbonated beverages, caffeine, spicy/ acidic foods, alcohol, and/ or tobacco products. Will send urine cytology due to irritative urinary symptoms and past heavy smoker. 07/19/2022 Improved. Flank pain 825422540 R10 .9 get CTU. Increased frequency of urination 160244781 R35.0 Avoid bladder irritants. Limit fluids 2 hours prior to bedtime. If patient is unsuccessf ul with behavioral strategies may consider anticholin ergic/beta 3 agonist or PF PT. Urge incon tinence of urine 83053998 N39.41 Hydroureter 88402793 N13 .4 Will check CTU for structural evaluation to assess cause of left hydrourete r. No contrast allergy. I will call with results and plan appropriat e follow-up. We discussed in the abscence of structural obstructio n will need to get lasix renogram for functional assessment . [id number] Shiela Flor MD S_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 Internal Med [facility] [address] [facility] [address] 1 11/30/2022 14:50:19 11/30/2022 15:37:56 Essential hypertension 38206192 I10 Type 2 alok betes mellitus 09428190 E11.9 Hyperlipidemia 59822318 E78.5 [id number] Shiela Flor MD [facility] Internal Med [facility] [address] [facility] [address] [address] 02/01/2023 14:49:39 02/01/2023 16:00:58 High grade B-cell lymphoma 007439551 C85.10 Essential hypertension 40583037 I10 Hyperlipidemia 26531355 E78.5 Type 2 alok betes mellitus 76042179 E11.9 [id number] Shiela Flor MD [facility] Internal Med [facility] [address] [facility] [address] [address] 03/07/2023 14:48:19 03/07/2023 16:10:53 Pre-surgery evaluation 822373173 Z01.818 Essential hypertension 34563325 I10 Type 2 alok betes mellitus without complication 991643970 E11.9 [id number] Tin Burnette MD S_[facility] [address] [place] [address] 07/30/2024 10:19:54 07/30/2024 11:13:26 Pain of right knee joint 8887522532 04133 M25.561 Osteoarthr itis of right knee joint 9945247745 35089 M17.11 [id number] Rekha Nunez PA-C [facility] Ortho [facility] [address] [place] [address] 09/10/2024 11:25:33 09/10/2024 11:38:50 Pain of right knee joint 4028191853 21786 M25.561 Osteoarthr itis of right knee joint 8776564793 85684 M17.11 Health Concerns Section Related Observation LastModified by Organization Detai ls LastModified Time None Recorded Concern Status LastModified by Organization Details LastModified Time None Recorded Advance Directives Directive N: Payers Insurance Date Sequence Insurance Name Policy Number Policy Gregory Covered Member ID Gregory Member ID Guarantor Name 09/07/2024 1 [facility] (MEDICARE REPLACEMENT/AD VANTAGE - PPO) [id number] Paula Villalobos [employer] [id number] Paula Villalobos [facility] 09/06/2024 1 [facility] (MEDICARE REPLACEMENT HMO) [id number] Paula Villalobos [employer] [id number] Paula Villalobos domonique 09/06/2024 2 [place] Paula Lomeli [id number] Paula Lomeli 09/07/2024 2 [place] [facility] Paula Villalobos [employer] [id number] Paula Lomeli Notes Date Note Type Note Provider Name and Address Organization Details Recorded Time 11/30/2022 text/html cancer. Chemo. Bilateral footdrop. Going through therapy. Blood sugars have been okay. Shiela Flor MD [address], [place], [address], [employer] 11/30/2022 22:37:02 02/01/2023 text/html And problems wit h her feetNeuropathy badSpecialist center to OrthoWill need foot care because of her diabetes as well Shiela Flor MD [address], [place], [address], [employer] 02/02/2023 21:21:32 03/07/2023 text/html He is to have mejia rgery on feetHypertension no chest pain or shortness of breath but she does not ambulateType 2 diabetes needs an A1c no polyphagia polydipsiaCAD with stent no chest painCOPD no problems breathing at this timeB-cell lymphoma treated at [facility] Shiela Flor MD [address] [facility], [facility] [address], [place], [address], [facility] 03/28/2023 18:10:42 OBGyn Episode No OBEpisode recorded.
--- OUTSIDE RECORDS SUMMARY | 2024-09-25 20:32 | XMS_ITS | Clinical Summary ---
Author Organization [facility] Address [address] [place] [address] Phone Care Team Providers Care Tunnel Worker Name Role Phone Agustin Flor MD Primary Care Provider [phone] Allergies Active Allergy Reactions Criticality Noted Date [...] 10:55 AM CDT Height 162.6 cm (5' 4) 07/13/2022 10:5 5 AM CDT Body Mass Index 29.32 07/13/2022 10:55 AM CDT Plan of Treatment Health Maintenance Due Date Last Done Comments TdaP Immunization 1958 Zoster Immunization (1 of 2) 1977 Cologuard 2003 Colonoscopy 2003 Colorectal Cancer Screening 2003 Immunochemical Fecal Occult Blood 2003 SARS-COV-2 Immunization ( season) 2023 01/21/2022, 01/25/2021, 12/28/2020, Additional history exists Influenza Immunization (Season Ended) 2024 01/21/2022, 01/30/2021, 01/25/2021, Additional history exists Respiratory Syncytial Virus (RSV) Immunization (Adult) (1 - 1-dose 75+ series) 2033 Pneumococcal Immunization (50+ years) Completed 01/21/2022, 12/26/2014 Pneumococcal Immunization Combined Discontinued 01/21/2022, 12/26/2014 Hepatitis C Virus (HCV) Screening Completed 07/16/2022, 07/13/2022 Hepatitis B Immunization Aged Out No longer eligible based on patient's age to complete this topic Human Papillomavirus (HPV) Immunization Aged Out No longer eligible based [...] CDT) hepatitis C antibody 0.09 <1 [facility] [id number] B 07/13/2022 9:22 PM CDT [facility] Comment: Signal/Cutoff ratio < 0.79 is Nondetected Signal/Cutoff ratio 0.80-0.99 is Grayzone Signal/Cutoff ratio > 0.99 is Detected Supplemental assays are recommended if signal/cutoff ratio is >/=1.00. Signal/cutoff ratio result >/= 5.00 is 97% predictive of positivity for recombinant immunoblot assay (RIBA) and will be reported to the [place] Department of Public Health as required. Blood Venipuncture / Unknown 07/13/2022 1:29 PM CDT 07/13/2022 1:41 PM CDT Hans Escobar MD CHEMISTRY ORDERABLES Fin al Result [facility] [address] [place] [address], [place] from Last 3 Months or Most Recently Relevant to Health Maintenance Insurance MEDICARE C [employer] [place] Care Teams Tunnel Worker Relationship Specialty Start Date End Date Agustin Flor MD PCP - General Internal Medicine 07/13/22
[2024-09-25 20:39] LABS: NT Pro B Type Natriuretic Pept 21 pg/mL (19.9-100)
[2024-09-25] MEDS: POTASSIUM CHLORIDE 20 MEQ ER TABLET 40 MEQ PO (20:42)
[2024-09-25] MEDS: SODIUM CHLORIDE 0.9% IV 1,000 ML 999 ML IV CONT (20:43)
[2024-09-25 20:44] LABS: Magnesium 1.7 mg/dL (1.6-2.3)
--- NOTE | 2024-09-25 21:13 | ED_ITS ---
HPI - Chest Pain General Chief Complaint: Chest Pain <Ana Yuen PA-C - Last Filed: 09/27/24 01:27> Stated Complaint: CHEST PAIN, COUGH <CHERRY Mercedes Last Filed: 09/27/24 01:27> Time Seen by Provider: 09/25/24 19:35 <CHERRY Mercedes Last Filed: 09/27/24 01:27> Source: patient <CHERRY Mercedes Last Filed: 09/27/24 01:27> Mode of arrival: EMS <CHERRY Mercedes Last Filed: 09/27/24 01:27> Limitations: no limitations <CHERRY Mercedes Last Filed: 09/27/24 01:27> History of Present Illness HPI narrative: This is a 64 year old female that presents to the ER for chest pain. Ongoing over the last couple of days. Reports feeling short of breath. Reports history of COPD. Denies fevers, lower extremity edema, productive cough. <CHERRY Mercedes Last Filed: 09/27/24 01:27> Related Data Home Medications: Home Medications ?Medication ?Instructions ?Recorded ?Confirmed ?Last Taken ?Type albuterol sulfate 2.5 mg/3 mL 2.5 mg inhalation Q6H PRN 08/13/20 09/26/24 Unknown History (0.083 %) solution for nebulization shortness of breath or wheezing amlodipine 5 mg tablet 5 mg PO DAILY 08/13/20 09/26/24 Unknown History blood sugar diagnostic 08/13/20 09/26/24 Unknown History gabapentin 600 mg tablet 300 mg PO TID 08/13/20 09/26/24 Unknown History pantoprazole 20 mg tablet,delayed 20 mg PO QAM 08/13/20 09/26/24 Unknown History release ziprasidone HCl 80 mg capsule 160 mg PO HS 08/13/20 09/26/24 Unknown History fluticasone fur. 200 mcg-umeclid 1 inh inhalation DAILY 06/03/22 09/26/24 Unknown History 62.5 mcg-vilant 25 mcg inhalat.powder (Trelegy Ellipta) hydroxyzine pamoate 25 mg capsule 25 mg PO DAILY 06/03/22 09/26/24 Unknown History clopidogrel 75 mg tablet 75 mg PO DAILY 09/26/24 09/26/24 Unknown History insulin lispro 100 unit/mL 5 unit subcut TIDWM 09/26/24 09/26/24 Unknown History subcutaneous pen (Humalog KwikPen (U-100) Insulin) magnesium 250 mg tablet 250 mg PO HS 09/26/24 09/26/24 Unknown History paroxetine HCl 40 mg tablet 40 mg PO HS 09/26/24 09/26/24 Unknown History sennosides 8.6 mg capsule (senna) 8.6 mg PO DAILY 09/26/24 09/26/24 Unknown History thiamine HCl (vitamin B1) 100 mg 100 mg PO DAILY 09/26/24 09/26/24 Unknown History tablet (Vitamin B-1) <Ana Yuen PA-C - Last Filed: 09/27/24 01:27> Allergies/Adverse Reactions: Allergies Allergy/AdvReac Type Severity Reaction Status Date / Time azithromycin Allergy Mild Itching Verified 09/25/24 19:05 aspirin Allergy Difficulty Verified 09/25/24 19:05 Breathing clonazepam Allergy Anaphylaxis Verified 09/25/24 19:05 hydrochlorothiazide AdvReac Mild Itching Verified 09/25/24 19:07 cefdinir AdvReac Itching Verified 09/25/24 19:07 chlorthalidone AdvReac Itching Verified 09/25/24 19:05 <Ana Yuen PA-C - Last Filed: 09/27/24 01:27> Review of Systems 2 Review of Systems: All systems reviewed & are unremarkable except as noted in HPI and below <Ana Yuen PA-C - Last Filed: 09/27/24 01:27> [facility] Past Medical History Medical History: Medical History (Updated 09/27/24 @ 01:23 by Ana Yuen PA-C) GERD (gastroesophageal reflux disease) Diabetes Electrolyte abnormality Hypertension Coronary artery disease Fatigue Asthma Anxiety <Ana Yuen PA-C - Last Filed: 09/27/24 01:27> Family History Family History: Family History Father Alcoholism Mother Alcoholism Other Alcoholism Hypertension Depression <Ana Yuen PA-C - Last Filed: 09/27/24 01:27> Social History Social History: Social History Smoking packs per day: 1 Smoking cigarettes per day: 20.0 Years smoked: 30 Smoking pack-years: 30.00 Smoking status: Former smoker Alcohol intake: former Substance use: never Do You Feel Safe in your Home?: Yes Lack of Transportation: No Lack of Food: Never True Current Housing: I Have Housing Concerned About Future Housing: No Difficulty Paying Gas/Electric Bills: No Difficulty Paying for Meds: No Currently Unemployed: No Education: High School Diploma/GED Difficulty w/ Childcare or Family Care: No Spiritual care concerns: No <Ana Yuen PA-C - Last Filed: 09/27/24 01:27> Exam 2 Narrative: GENERAL: Well-appearing, well-nourished, and in no acute distress. HEAD: Normocephalic, atraumatic. EYES: EOMI. ENT: Nares clear, no rhinorrhea or epistaxis. Mucous membranes moist. Oropharynx without tonsillar hypertrophy exudate or other lesions. NECK: Supple. No adenopathy or masses. CHEST: Clear to auscultation. No respiratory distress. No wheezes rales or rhonchi HEART: Regular rate and rhythm. No murmur heard. Normal peripheral pulses. EXTREMITIES: Normal range of motion. No edema. SKIN: Warm, dry, no rash. NEURO: No focal deficits. Alert and oriented x3. PSYCH: Anxious <Ana Yuen PA-C - Last Filed: 09/27/24 01:27> Course Course Emergency Course: Patient updated on her workup and recommendation for admission due to elevated heart score <Ana Yuen PA-C - Last Filed: 09/27/24 01:27> PROJ MGR/PA Physician Supervision Patient work up and dispo determined by PA. I was available for consultation while patient was in the ED but did not personally examine/assess them and was not directly involved in their care. <Kristyn Tong MD - Last Filed: 09/28/24 10:10> Consultations Consultation #1: Spoke with hospitalist about patient and workup who accepts admission < Ana Yuen PA-C - Last Filed: 09/27/24 01:27> Vital Signs Vital signs: Vital Signs Temperature 98.0 F 09/25/24 18:53 Pulse Rate 92 09/25/24 18:53 Respiratory Rate 17 09/25/24 18:53 Blood Pressure 166/91 H 09/25/24 18:53 Pulse Oximetry 100 09/25/24 18:53 Oxygen Delivery Room Air 09/25/24 18:53 Temperature 98.0 F 09/27/24 16:00 Pulse Rate 77 09/27/24 18:00 Respiratory Rate 20 09/27/24 16:00 Blood Pressure 141/85 H 09/27/24 16:00 Pulse Oximetry 98 09/27/24 16:00 Oxygen Delivery Room Air 09/27/24 16:00 <Ana Yuen PA-C - Last Filed: 09/27/24 01:27> Vital Signs Temperature 98.0 F 09/25/24 18:53 Pulse Rate 92 09/25/24 18:53 Respiratory Rate 17 09/25/24 18:53 Blood Pressure 166/91 H 09/25/24 18:53 Pulse Oximetry 100 09/25/24 18:53 Oxygen Delivery Room Air 09/25/24 18:53 Temperature 98.0 F 09/27/24 16:00 Pulse Rate 77 09/27/24 18:00 Respiratory Rate 20 09/27/24 16:00 Blood Pressure 141/85 H 09/27/24 16:00 Pulse Oximetry 98 09/27/24 16:00 Oxygen Delivery Room Air 09/27/24 16:00 <Kristyn Tong MD - Last Filed: 09/28/24 10:10> MDM - Chest Pain MDM Narrative Medical decision making narrative: Patient presents the emergency department for chest pain, shortness of breath. Reports worse with exertion. Ongoing over the last couple of days. She does have history of coronary artery disease. Her vitals are stable. CBC and metabolic panel without concerning findings. D-dimer is not elevated. EKG without acute ST changes, baseline troponin is not elevated. Her heart score is 5. Will admit for further evaluation/monitoring <Ana Yuen PA-C - Last Filed: 09/27/24 01:27> Differential Diagnosis Differential diagnosis: Likely stable angina, unstable angina pectoris, atypical chest pain, costochondritis and other (Pneumonia, PE, muscle strain) <Ana Yuen PA-C - Last Filed: 09/27/24 01:27> Lab Data Attestation: I reviewed the patient's lab results. <Ana Yuen PA-C - Last Filed: 09/27/24 01:27> Result diagrams: 09/27/24 04:21 09/27/24 04:21 <Ana Yuen PA-C - Last Filed: 09/27/24 01:27> Labs: Lab Results 09/25/24 09/25/24 09/25/24 Range/Units 19:37 19:39 21:30 WBC 6.6 (4.5-10.0) K/mm3 RBC 4.51 (4.2-5.4) M/mm3 Hgb 12.6 (12.0-15.0) g/dL Hct 38.3 (37.0-47.0) % MCV 84.9 (80-100) fl MCH 27.9 (26-34) pg MCHC 32.9 (32-36) g/dl RDW 13.3 (11.5-14.5) % Plt Count 169 (150-375) k/mm3 MPV 8.8 (7.4-10.4) fl Immature Gran % (Auto) 0.3 (0-0.5) % Neut % (Auto) 80.2 H (45.5-73.1) % Lymph % (Auto) 11.3 L (18.3-44.2) % [place] % (Auto) 6.9 (2.6-8.5) % Eos % (Auto) 0.8 (0-4.4) % Baso % (Auto) 0.5 (0.2-1.2) % Lymph # (Auto) 0.75 L (0.9-3.2) K/mm3 [place] # (Auto) 0.5 (0.1-0.6) K/mm3 Eos # (Auto) 0.1 (0-0.3) K/mm3 Baso # (Auto) 0.0 (0.0-0.1) K/mm3 Abs Immat Gran (auto) 0.02 (0.00-0.031) K/mm3 Absolute Neuts (auto) 5.3 (1.3-6.7) K/mm3 Absolute Nucleated RBC 0.000 (0.0-0.012) K/mm3 Nucleated RBC % 0.0 (0.0-0.2) % PT 12.6 (11.1-14.7) Seconds INR 0.9 APTT 29.2 (22.3-36.8) Seconds D-Dimer 0.35 (<0.48) ug/mL Sodium 127 L (137-145) mmol/L Potassium 3.2 L (3.4-5.0) mmol/L Chloride 90 L (98-107) mmol/L Carbon Dioxide 24 (22-30) mmol/L Anion Gap 13 H (4-12) mmol/L BUN 19 H (7-17) mg/dL Creatinine 0.74 (0.7-1.0) mg/dL Estim Creat Clear Calc 56 ml/min Estimated GFR > 60 (59 - ) Glucose 199 H (65-110) mg/dL POC Capillary Glucose (65-105) mg/dl Hemoglobin A1c (<5.7) % Calcium 10.1 (8.4-10.2) mg/dL Phosphorus (2.5-4.5) mg/dL Magnesium 1.7 (1.6-2.3) mg/dL Total Bilirubin 0.4 (0.2-1.3) mg/dL AST 37 H (14-36) U/L ALT 33 (6-35) U/L Alkaline Phosphatase 62 (38-126) U/L Troponin I < 0.012 (0.000-0.034) ng/mL NT-Pro-B Natriuret Pep 21 (19.9-100) pg/mL Total Protein 6.9 (6.3-8.2) g/dL Albumin 4.7 (3.5-5.1) g/dL Lipase 60 (23-300) U/L Vitamin B12 (239-931) pg/mL Vitamin D 25-Hydroxy ng/mL Influenza A (RT-PCR) Negative (Negative) Influenza B (RT-PCR) Negative (Negative) RSV (RT-PCR) Negative (Negative) SARS-CoV-2 RNA (RT-PCR) Negative (Negative) 09/25/24 09/26/24 09/26/24 Range/Units 22:26 01:19 07:25 WBC (4.5-10.0) K/mm3 RBC (4.2-5.4) M/mm3 Hgb (12.0-15.0) g/dL Hct (37.0-47.0) % MCV (80-100) fl MCH (26-34) pg MCHC (32-36) g/dl RDW (11.5-14.5) % Plt Count (150-375) k/mm3 MPV (7.4-10.4) fl Immature Gran % (Auto) (0-0.5) % Neut % (Auto) (45.5-73.1) % Lymph % (Auto) (18.3-44.2) % [place] % (Auto) (2.6-8.5) % Eos % (Auto) (0-4.4) % Baso % (Auto) (0.2-1.2) % Lymph # (Auto) (0.9-3.2) K/mm3 [place] # (Auto) (0.1-0.6) K/mm3 Eos # (Auto) (0-0.3) K/mm3 Baso # (Auto) (0.0-0.1) K/mm3 Abs Immat Gran (auto) (0.00-0.031) K/mm3 Absolute Neuts (auto) (1.3-6.7) K/mm3 Absolute Nucleated RBC (0.0-0.012) K/mm3 Nucleated RBC % (0.0-0.2) % PT (11.1-14.7) Seconds INR APTT (22.3-36.8) Seconds D-Dimer (<0.48) ug/mL Sodium 129 L (137-145) mmol/L Potassium 3.3 L (3.4-5.0) mmol/L Chloride 97 L (98-107) mmol/L Carbon Dioxide 25 (22-30) mmol/L Anion Gap 7 (4-12) mmol/L BUN 17 (7-17) mg/dL Creatinine 0.71 (0.7-1.0) mg/dL Estim Creat Clear Calc 58 ml/min Estimated GFR > 60 (59 - ) Glucose 143 H (65-110) mg/dL POC Capillary Glucose 124 H (65-105) mg/dl Hemoglobin A1c 5.8 H (<5.7) % Calcium 9.2 (8.4-10.2) mg/dL Phosphorus (2.5-4.5) mg/dL Magnesium (1.6-2.3) mg/dL Total Bilirubin (0.2-1.3) mg/dL AST (14-36) U/L ALT (6-35) U/L Alkaline Phosphatase (38-126) U/L Troponin I < 0.012 < 0.012 (0.000-0.034) ng/mL NT-Pro-B Natriuret Pep (19.9-100) pg/mL Total Protein (6.3-8.2) g/dL Albumin (3.5-5.1) g/dL Lipase (23-300) U/L Vitamin B12 861.0 (239-931) pg/mL Vitamin D 25-Hydroxy 52.3 ng/mL Influenza A (RT-PCR) (Negative) Influenza B (RT-PCR) (Negative) RSV (RT-PCR) (Negative) SARS-CoV-2 RNA (RT-PCR) (Negative) 09/26/24 09/26/24 09/26/24 Range/Units 08:34 11:07 14:35 WBC (4.5-10.0) K/mm3 RBC (4.2-5.4) M/mm3 Hgb (12.0-15.0) g/dL Hct (37.0-47.0) % MCV (80-100) fl MCH (26-34) pg MCHC (32-36) g/dl RDW (11.5-14.5) % Plt Count (150-375) k/mm3 MPV (7.4-10.4) fl Immature Gran % (Auto) (0-0.5) % Neut % (Auto) (45.5-73.1) % Lymph % (Auto) (18.3-44.2) % [place] % (Auto) (2.6-8.5) % Eos % (Auto) (0-4.4) % Baso % (Auto) (0.2-1.2) % Lymph # (Auto) (0.9-3.2) K/mm3 [place] # (Auto) (0.1-0.6) K/mm3 Eos # (Auto) (0-0.3) K/mm3 Baso # (Auto) (0.0-0.1) K/mm3 Abs Immat Gran (auto) (0.00-0.031) K/mm3 Absolute Neuts (auto) (1.3-6.7) K/mm3 Absolute Nucleated RBC (0.0-0.012) K/mm3 Nucleated RBC % (0.0-0.2) % PT (11.1-14.7) Seconds INR APTT (22.3-36.8) Seconds D-Dimer (<0.48) ug/mL Sodium 134 L (137-145) mmol/L Potassium 4.1 (3.4-5.0) mmol/L Chloride 98 (98-107) mmol/L Carbon Dioxide 28 (22-30) mmol/L Anion Gap 8 (4-12) mmol/L BUN 12 D (7-17) mg/dL Creatinine 0.78 (0.7-1.0) mg/dL Estim Creat Clear Calc 53 ml/min Estimated GFR > 60 (59 - ) Glucose 123 H (65-110) mg/dL POC Capillary Glucose 154 H 60 L (65-105) mg/dl Hemoglobin A1c (<5.7) % Calcium 10.0 (8.4-10.2) mg/dL Phosphorus 1.9 L (2.5-4.5) mg/dL Magnesium 1.8 (1.6-2.3) mg/dL Total Bilirubin (0.2-1.3) mg/dL AST (14-36) U/L ALT (6-35) U/L Alkaline Phosphatase (38-126) U/L Troponin I (0.000-0.034) ng/mL NT-Pro-B Natriuret Pep (19.9-100) pg/mL Total Protein (6.3-8.2) g/dL Albumin 4.5 (3.5-5.1) g/dL Lipase (23-300) U/L Vitamin B12 (239-931) pg/mL Vitamin D 25-Hydroxy ng/mL Influenza A (RT-PCR) (Negative) Influenza B (RT-PCR) (Negative) RSV (RT-PCR) (Negative) SARS-CoV-2 RNA (RT-PCR) (Negative) 09/26/24 Range/Units 14:53 WBC (4.5-10.0) K/mm3 RBC (4.2-5.4) M/mm3 Hgb (12.0-15.0) g/dL Hct (37.0-47.0) % MCV (80-100) fl MCH (26-34) pg MCHC (32-36) g/dl RDW (11.5-14.5) % Plt Count (150-375) k/mm3 MPV (7.4-10.4) fl Immature Gran % (Auto) (0-0.5) % Neut % (Auto) (45.5-73.1) % Lymph % (Auto) (18.3-44.2) % [place] % (Auto) (2.6-8.5) % Eos % (Auto) (0-4.4) % Baso % (Auto) (0.2-1.2) % Lymph # (Auto) (0.9-3.2) K/mm3 [place] # (Auto) (0.1-0.6) K/mm3 Eos # (Auto) (0-0.3) K/mm3 Baso # (Auto) (0.0-0.1) K/mm3 Abs Immat Gran (auto) (0.00-0.031) K/mm3 Absolute Neuts (auto) (1.3-6.7) K/mm3 Absolute Nucleated RBC (0.0-0.012) K/mm3 Nucleated RBC % (0.0-0.2) % PT (11.1-14.7) Seconds INR APTT (22.3-36.8) Seconds D-Dimer (<0.48) ug/mL Sodium (137-145) mmol/L Potassium (3.4-5.0) mmol/L Chloride (98-107) mmol/L Carbon Dioxide (22-30) mmol/L Anion Gap (4-12) mmol/L BUN (7-17) mg/dL Creatinine (0.7-1.0) mg/dL Estim Creat Clear Calc ml/min Estimated GFR (59 - ) Glucose (65-110) mg/dL POC Capillary Glucose 115 H (65-105) mg/dl Hemoglobin A1c (<5.7) % Calcium (8.4-10.2) mg/dL Phosphorus (2.5-4.5) mg/dL Magnesium (1.6-2.3) mg/dL Total Bilirubin (0.2-1.3) mg/dL AST (14-36) U/L ALT (6-35) U/L Alkaline Phosphatase (38-126) U/L Troponin I (0.000-0.034) ng/mL NT-Pro-B Natriuret Pep (19.9-100) pg/mL Total Protein (6.3-8.2) g/dL Albumin (3.5-5.1) g/dL Lipase (23-300) U/L Vitamin B12 (239-931) pg/mL Vitamin D 25-Hydroxy ng/mL Influenza A (RT-PCR) (Negative) Influenza B (RT-PCR) (Negative) RSV (RT-PCR) (Negative) SARS-CoV-2 RNA (RT-PCR) (Negative) <Ana Yuen PA-C - Last Filed: 09/27/24 01:27> Lab Results 09/25/24 09/25/24 09/25/24 Range/Units 19:37 19:39 21:30 WBC 6.6 (4.5-10.0) K/mm3 RBC 4.51 (4.2-5.4) M/mm3 Hgb 12.6 (12.0-15.0) g/dL Hct 38.3 (37.0-47.0) % MCV 84.9 (80-100) fl MCH 27.9 (26-34) pg MCHC 32.9 (32-36) g/dl RDW 13.3 (11.5-14.5) % Plt Count 169 (150-375) k/mm3 MPV 8.8 (7.4-10.4) fl Immature Gran % (Auto) 0.3 (0-0.5) % Neut % (Auto) 80.2 H (45.5-73.1) % Lymph % (Auto) 11.3 L (18.3-44.2) % [place] % (Auto) 6.9 (2.6-8.5) % Eos % (Auto) 0.8 (0-4.4) % Baso % (Auto) 0.5 (0.2-1.2) % Lymph # (Auto) 0.75 L (0.9-3.2) K/mm3 [place] # (Auto) 0.5 (0.1-0.6) K/mm3 Eos # (Auto) 0.1 (0-0.3) K/mm3 Baso # (Auto) 0.0 (0.0-0.1) K/mm3 Abs Immat Gran (auto) 0.02 (0.00-0.031) K/mm3 Absolute Neuts (auto) 5.3 (1.3-6.7) K/mm3 Absolute Nucleated RBC 0.000 (0.0-0.012) K/mm3 Nucleated RBC % 0.0 (0.0-0.2) % PT 12.6 (11.1-14.7) Seconds INR 0.9 APTT 29.2 (22.3-36.8) Seconds D-Dimer 0.35 (<0.48) ug/mL Sodium 127 L (137-145) mmol/L Potassium 3.2 L (3.4-5.0) mmol/L Chloride 90 L (98-107) mmol/L Carbon Dioxide 24 (22-30) mmol/L Anion Gap 13 H (4-12) mmol/L BUN 19 H (7-17) mg/dL Creatinine 0.74 (0.7-1.0) mg/dL Estim Creat Clear Calc 56 ml/min Estimated GFR > 60 (59 - ) Glucose 199 H (65-110) mg/dL POC Capillary Glucose (65-105) mg/dl Hemoglobin A1c (<5.7) % Calcium 10.1 (8.4-10.2) mg/dL Phosphorus (2.5-4.5) mg/dL Magnesium 1.7 (1.6-2.3) mg/dL Total Bilirubin 0.4 (0.2-1.3) mg/dL AST 37 H (14-36) U/L ALT 33 (6-35) U/L Alkaline Phosphatase 62 (38-126) U/L Troponin I < 0.012 (0.000-0.034) ng/mL NT-Pro-B Natriuret Pep 21 (19.9-100) pg/mL Total Protein 6.9 (6.3-8.2) g/dL Albumin 4.7 (3.5-5.1) g/dL Lipase 60 (23-300) U/L Vitamin B12 (239-931) pg/mL Vitamin D 25-Hydroxy ng/mL Influenza A (RT-PCR) Negative (Negative) Influenza B (RT-PCR) Negative (Negative) RSV (RT-PCR) Negative (Negative) SARS-CoV-2 RNA (RT-PCR) Negative (Negative) 09/25/24 09/26/24 09/26/24 Range/Units 22:26 01:19 07:25 WBC (4.5-10.0) K/mm3 RBC (4.2-5.4) M/mm3 Hgb (12.0-15.0) g/dL Hct (37.0-47.0) % MCV (80-100) fl MCH (26-34) pg MCHC (32-36) g/dl RDW (11.5-14.5) % Plt Count (150-375) k/mm3 MPV (7.4-10.4) fl Immature Gran % (Auto) (0-0.5) % Neut % (Auto) (45.5-73.1) % Lymph % (Auto) (18.3-44.2) % [place] % (Auto) (2.6-8.5) % Eos % (Auto) (0-4.4) % Baso % (Auto) (0.2-1.2) % Lymph # (Auto) (0.9-3.2) K/mm3 [place] # (Auto) (0.1-0.6) K/mm3 Eos # (Auto) (0-0.3) K/mm3 Baso # (Auto) (0.0-0.1) K/mm3 Abs Immat Gran (auto) (0.00-0.031) K/mm3 Absolute Neuts (auto) (1.3-6.7) K/mm3 Absolute Nucleated RBC (0.0-0.012) K/mm3 Nucleated RBC % (0.0-0.2) % PT (11.1-14.7) Seconds INR APTT (22.3-36.8) Seconds D-Dimer (<0.48) ug/mL Sodium 129 L (137-145) mmol/L Potassium 3.3 L (3.4-5.0) mmol/L Chloride 97 L (98-107) mmol/L Carbon Dioxide 25 (22-30) mmol/L Anion Gap 7 (4-12) mmol/L BUN 17 (7-17) mg/dL Creatinine 0.71 (0.7-1.0) mg/dL Estim Creat Clear Calc 58 ml/min Estimated GFR > 60 (59 - ) Glucose 143 H (65-110) mg/dL POC Capillary Glucose 124 H (65-105) mg/dl Hemoglobin A1c 5.8 H (<5.7) % Calcium 9.2 (8.4-10.2) mg/dL Phosphorus (2.5-4.5) mg/dL Magnesium (1.6-2.3) mg/dL Total Bilirubin (0.2-1.3) mg/dL AST (14-36) U/L ALT (6-35) U/L Alkaline Phosphatase (38-126) U/L Troponin I < 0.012 < 0.012 (0.000-0.034) ng/mL NT-Pro-B Natriuret Pep (19.9-100) pg/mL Total Protein (6.3-8.2) g/dL Albumin (3.5-5.1) g/dL Lipase (23-300) U/L Vitamin B12 861.0 (239-931) pg/mL Vitamin D 25-Hydroxy 52.3 ng/mL Influenza A (RT-PCR) (Negative) Influenza B (RT-PCR) (Negative) RSV (RT-PCR) (Negative) SARS-CoV-2 RNA (RT-PCR) (Negative) 09/26/24 09/26/24 09/26/24 Range/Units 08:34 11:07 14:35 WBC (4.5-10.0) K/mm3 RBC (4.2-5.4) M/mm3 Hgb (12.0-15.0) g/dL Hct (37.0-47.0) % MCV (80-100) fl MCH (26-34) pg MCHC (32-36) g/dl RDW (11.5-14.5) % Plt Count (150-375) k/mm3 MPV (7.4-10.4) fl Immature Gran % (Auto) (0-0.5) % Neut % (Auto) (45.5-73.1) % Lymph % (Auto) (18.3-44.2) % [place] % (Auto) (2.6-8.5) % Eos % (Auto) (0-4.4) % Baso % (Auto) (0.2-1.2) % Lymph # (Auto) (0.9-3.2) K/mm3 [place] # (Auto) (0.1-0.6) K/mm3 Eos # (Auto) (0-0.3) K/mm3 Baso # (Auto) (0.0-0.1) K/mm3 Abs Immat Gran (auto) (0.00-0.031) K/mm3 Absolute Neuts (auto) (1.3-6.7) K/mm3 Absolute Nucleated RBC (0.0-0.012) K/mm3 Nucleated RBC % (0.0-0.2) % PT (11.1-14.7) Seconds INR APTT (22.3-36.8) Seconds D-Dimer (<0.48) ug/mL Sodium 134 L (137-145) mmol/L Potassium 4.1 (3.4-5.0) mmol/L Chloride 98 (98-107) mmol/L Carbon Dioxide 28 (22-30) mmol/L Anion Gap 8 (4-12) mmol/L BUN 12 D (7-17) mg/dL Creatinine 0.78 (0.7-1.0) mg/dL Estim Creat Clear Calc 53 ml/min Estimated GFR > 60 (59 - ) Glucose 123 H (65-110) mg/dL POC Capillary Glucose 154 H 60 L (65-105) mg/dl Hemoglobin A1c (<5.7) % Calcium 10.0 (8.4-10.2) mg/dL Phosphorus 1.9 L (2.5-4.5) mg/dL Magnesium 1.8 (1.6-2.3) mg/dL Total Bilirubin (0.2-1.3) mg/dL AST (14-36) U/L ALT (6-35) U/L Alkaline Phosphatase (38-126) U/L Troponin I (0.000-0.034) ng/mL NT-Pro-B Natriuret Pep (19.9-100) pg/mL Total Protein (6.3-8.2) g/dL Albumin 4.5 (3.5-5.1) g/dL Lipase (23-300) U/L Vitamin B12 (239-931) pg/mL Vitamin D 25-Hydroxy ng/mL Influenza A (RT-PCR) (Negative) Influenza B (RT-PCR) (Negative) RSV (RT-PCR) (Negative) SARS-CoV-2 RNA (RT-PCR) (Negative) 09/26/24 Range/Units 14:53 WBC (4.5-10.0) K/mm3 RBC (4.2-5.4) M/mm3 Hgb (12.0-15.0) g/dL Hct (37.0-47.0) % MCV (80-100) fl MCH (26-34) pg MCHC (32-36) g/dl RDW (11.5-14.5) % Plt Count (150-375) k/mm3 MPV (7.4-10.4) fl Immature Gran % (Auto) (0-0.5) % Neut % (Auto) (45.5-73.1) % Lymph % (Auto) (18.3-44.2) % [place] % (Auto) (2.6-8.5) % Eos % (Auto) (0-4.4) % Baso % (Auto) (0.2-1.2) % Lymph # (Auto) (0.9-3.2) K/mm3 [place] # (Auto) (0.1-0.6) K/mm3 Eos # (Auto) (0-0.3) K/mm3 Baso # (Auto) (0.0-0.1) K/mm3 Abs Immat Gran (auto) (0.00-0.031) K/mm3 Absolute Neuts (auto) (1.3-6.7) K/mm3 Absolute Nucleated RBC (0.0-0.012) K/mm3 Nucleated RBC % (0.0-0.2) % PT (11.1-14.7) Seconds INR APTT (22.3-36.8) Seconds D-Dimer (<0.48) ug/mL Sodium (137-145) mmol/L Potassium (3.4-5.0) mmol/L Chloride (98-107) mmol/L Carbon Dioxide (22-30) mmol/L Anion Gap (4-12) mmol/L BUN (7-17) mg/dL Creatinine (0.7-1.0) mg/dL Estim Creat Clear Calc ml/min Estimated GFR (59 - ) Glucose (65-110) mg/dL POC Capillary Glucose 115 H (65-105) mg/dl Hemoglobin A1c (<5.7) % Calcium (8.4-10.2) mg/dL Phosphorus (2.5-4.5) mg/dL Magnesium (1.6-2.3) mg/dL Total Bilirubin (0.2-1.3) mg/dL AST (14-36) U/L ALT (6-35) U/L Alkaline Phosphatase (38-126) U/L Troponin I (0.000-0.034) ng/mL NT-Pro-B Natriuret Pep (19.9-100) pg/mL Total Protein (6.3-8.2) g/dL Albumin (3.5-5.1) g/dL Lipase (23-300) U/L Vitamin B12 (239-931) pg/mL Vitamin D 25-Hydroxy ng/mL Influenza A (RT-PCR) (Negative) Influenza B (RT-PCR) (Negative) RSV (RT-PCR) (Negative) SARS-CoV-2 RNA (RT-PCR) (Negative) <Kristyn Tong MD - Last Filed: 09/28/24 10:10> Imaging Data Radiologist's impression: ITS Impressions Chest X-Ray 09/25/24 19:58 IMPRESSION: No acute cardiopulmonary pathology. <Ana Yuen PA-C - Last Filed: 09/27/24 01:27> ECG Data EKG #1: EKG Interpretation: normal rate, sinus rhythm, no ST changes and normal QT <Ana Yuen PA-C - Last Filed: 09/27/24 01:27> Critical Care Time Critical Care Time Critical Care Time: No <Ana Yuen PA-C - Last Filed: 09/27/24 01:27> Discharge Plan Discharge Clinical Impression: Chest pain Qualifiers: Chest pain type: unspecified Qualified Code(s): R07.9 - Chest pain, unspecified <Ana Yuen PA-C - Last Filed: 09/27/24 01:27> Patient Disposition: Still a Patient <Ana Yuen PA-C - Last Filed: 09/27/24 01:27> Condition: Stable <Ana Yuen PA-C - Last Filed: 09/27/24 01:27> Quality HEART score for chest pain patients History: moderately suspicious <Ana Yuen PA-C - Last Filed: 09/27/24 01:27> ECG: normal <Ana Yuen PA-C - Last Filed: 09/27/24 01:27> Age: > or = to 65 years <Ana Yuen PA-C - Last Filed: 09/27/24 01:27> Risk factors: > or = to 3 risk factors of atherosclerotic disease <Ana Yuen PA-C - Last Filed: 09/27/24 01:27> Troponin: < or = to 1x normal limit <Ana Yuen PA-C - Last Filed: 09/27/24 01:27> Heart score: 5 <Ana Yuen PA-C - Last Filed: 09/27/24 01:27> 5 <Kristyn Tong MD - Last Filed: 09/28/24 10:10>
[2024-09-25 22:12] LABS: Influenza A QL RT-PCR Negative (Negative); Influenza B QL RT-PCR Negative (Negative); RSV RNA, RT-PCR Negative (Negative); SARS-CoV-2 RNA PCR Negative (Negative)
--- NOTE | 2024-09-25 22:39 | ECG_ITS ---
Test Date: 2024-09-25 22:37:46 Measurements Intervals [place] Rate: 90 P: 46 PA: 153 QRS: -17 QRSD: 113 T: 70 QT: 396 QTc: 486 Interpretive Statements POOR QUALITY ECG BECAUSE OF BASELINE ARTIFACT SINUS RHYTHM SEPTAL MYOCARDIAL INFARCTION , OF INDETERMINATE AGE [40+ ms Q WAVE IN V1/V2] Compared to ECG 09/25/2024 19:31:59 NO OBVIOUS CHANGE HOWEVER THIS ECG IS OF VERY POOR QUALITY Electronically Signed On 09-26-2024 12:45:45 CDT by Agustin Fontanez M.D.
[2024-09-25 23:03] LABS: Troponin I < 0.012 ng/mL (0.000-0.034)
[2024-09-25 23:24] LABS: Anion Gap 7 mmol/L (4-12); Blood Urea Nitrogen 17 mg/dL (7-17); Calcium 9.2 mg/dL (8.4-10.2); Carbon Dioxide 25 mmol/L (22-30); Chloride 97 mmol/L (98-107); Estimated CRCL calculation 58 ml/min; Estimated Glomerular Filt Rate > 60; Glucose 143 mg/dL (65-110); Potassium 3.3 mmol/L (3.4-5.0); Sodium 129 mmol/L (137-145)
[2024-09-25] MEDS: ACETAMINOPHEN 500 MG TABLET 1000 MG PO (23:25)
[2024-09-26] VITALS (22 sets, daily range): BP systolic 120–165; BP diastolic 60–87; PULSE 60–97; RESP 16–20; TEMP 36.4–37; O2SAT 93–98; BMI 20.6; BMI 21.3
--- NOTE | 2024-09-26 | ECHO_ITS ---
Patient Info Name: Paula Lomeli Age: 64 years : 1960 Gender: Female Ht: 64 in Wt: 124 lbs BSA: 1.59 m2 HR: 93 bpm BP: 159 / 77 mmHg Technical Quality: Good Exam Date: 09/26/2024 1:13 PM Patient Status: I Admit Date: 09/26/2024 Exam Type: CA echo doppler color flow Complete two-dimensional, color flow and Doppler transthoracic echocardiogram is performed. Staff Referring Physician: Maral Davis Exercise Physiology Professor: Torie Prieto Attending Provider: Tano Mckinney MD Summary 1. Complete two-dimensional, color flow and Doppler transthoracic echocardiogram is performed. 2. There is mild asymmetric septal hypertrophy, No BRUNO seen. 3. The left ventricular diastolic function is grade I diastolic dysfunction. 4. Left ventricular systolic function is normal, estimated at 60-65. 5. Right ventricular chamber dimension is normal. 6. Right ventricular systolic function is normal. 7. PASP cannot be calculated because of insufficient TR jet. Left Ventricle Left ventricular chamber dimension is normal. Left ventricular systolic function is normal, estimated at 60-65. There is mild asymmetric septal hypertrophy, No BRUNO seen. Left ventricular septal wall motion is normal. The left ventricular diastolic function is grade I diastolic dysfunction. Right Ventricle Right ventricular chamber dimension is normal. Right ventricular systolic function is normal. Left Atria Left atrial chamber dimension is normal. Right Atria Right atrial chamber dimension is normal. Aortic Valve The aortic valve is trileaflet. There is no aortic valve sclerosis. There is no aortic valve stenosis. There is no aortic valve regurgitation. Pulmonic Valve The pulmonic valve is normal. There is no pulmonic regurgitation. Mitral Valve The mitral valve has normal leaflets. There is no mitral valve stenosis. There is no mitral valve regurgitation. Tricuspid Valve The tricuspid valve leaflets are normal. There is no significant tricuspid valve stenosis. There is no tricuspid valve regurgitation. PASP cannot be calculated because of insufficient TR jet. Pericardium/Pleural The pericardium appears normal. There is no pericardial effusion. Inferior Vena Cava Normal inferior vena cava with >50% collapse upon inspiration consistent with normal right atrial pressure, 3 mmHg. Aorta The aortic root size at the sinus of Valsalva is normal. The prox ascending aorta size is normal. Left Ventricular Outflow Tract Name Value Normal LVOT 2D LVOT Diameter 2.0 cm LVOT Doppler LVOT Peak Velocity 131 cm/s LVOT Peak Gradient 7 mmHg LVOT Mean Gradient 3 mmHg LVOT VTI 22 cm LVOT Stroke Volume 67 ml LVOT CO 6.3 l/min LVOT CI 3.9 l/min/m2 Pulmonic Valve Name Value Normal RVOT Doppler RVOT Peak Velocity 90 cm/s RVOT Peak Gradient 3 mmHg PV Doppler PV Peak Velocity 139 cm/s PV Peak Gradient 8 mmHg Mitral Valve Name Value Normal MV Diastolic Function MV E Peak Velocity 73 cm/s MV A Peak Velocity 104 cm/s MV E/A 0.7 MV Decel Time (PW) 190 ms MV Annular TDI MV E/e' (Septal) 9.1 MV E/e' (Lateral) 7.5 MV E/e' (Average) 8.3 Tricuspid Valve Name Value Normal Estimated PAP/RSVP RA Pressure 3 mmHg <=5 Aortic Valve Name Value Normal AV Doppler AV Peak Velocity 164 cm/s AV Peak Gradient 11 mmHg AV Area (Cont Eq Dhiraj) 2.4 cm2 AV DI (Dhiraj) 0.80 AV Regurgitation 2D LVOT Area 3.0 cm2 Ventricles Name Value Normal LV Dimensions 2D/MM IVS Diastolic Thickness (2D) 1.1 cm 0.6-1.0 LVID Diastole (2D) 3.8 cm 3.8-5.2 LVIW Diastolic Thickness (2D) 0.9 cm 0.6-0.9 LVID Systole (2D) 2.5 cm 2.2-3.5 LVOT Diameter 2.0 cm LV Mass (2D Cubed) 120.28 g 67.00-162.00 LV Mass Index (2D Cubed) 75 g/m2 43-95 Relative Wall Thickness (2D) 0.50 <=0.42 LV Fractional Shortening/Ejection Fraction 2D/MM LV Fractional Shortening (2D) 34 % 27-45 LV EF (2D Teichholz) 64 % LV Diastolic Volume (4C MOD) 82 ml LV EF (4C MOD) 53 % LV Diastolic Volume (2C MOD) 71 ml LV EF (2C MOD) 62 % LV Diastolic Volume (BP MOD) 78 ml 46-106 LV Diastolic Volume Index (BP MOD) 49 ml/m2 29-61 LV Systolic Volume (BP MOD) 32 ml 14-42 LV Systolic Volume Index (BP MOD) 20 ml/m2 8-24 LV EF (BP MOD) 59 % 54-74 LV Diastolic Length (4C) 8.1 cm LV Systolic Length (4C) 7.3 cm LV Stroke Volume (4C MOD) 44 ml Atria Name Value Normal LA Dimensions LA Volume (4C A-L) 28 ml LA Volume (BP A-L) 31 ml RA Dimensions RA Systolic Major [place] Length (4C) 4.8 cm 2.2-2.8 RA Area (4C) 10.7 cm2 <=18.0 Report Signatures
--- NOTE | 2024-09-26 00:37 | P.HP_ITS ---
H&P: HPI History of Present Illness Date/Time: 09/26/24 00:37 Chief Complaint: Chest pain Narrative: This is a very pleasant 64-year-old female patient who appears older and documented age with history of COPD followed by Pulmonology provider Ana Chang APRN, coronary artery disease status post PCI 5-6 years ago with 1 stent followed by marketing account manager Dr. Cadena, asthma, GERD, anxiety, diabetes mellitus, non-Hodgkin's lymphoma with last treatment 2 years ago and who is nonambulatory secondary to deformity and feet secondary to chemotherapy that was used for non-Hodgkin's lymphoma treatment who comes to the emergency room tonight with complaints of chest pain. Patient endorses that for the past 3-4 days she has had exertional shortness of breath and midsternal chest pain. She has had a cough and increased fatigue. There is no productivity to her cough. She endorses nausea at times. She has not been able to identify any exacerbating or alleviating factors of her chest pain or her shortness of breath. Patient is not requiring any home oxygen. Patient is a nonsmoker saying she quit in 2010, she quit alcohol in 2007. She states she just recently did start taking chlorthalidone 12.5 mg daily 1 week ago. Prior to that she had tried multiple medications for her hypertension and felt that she was allergic to them so they had to switch. At current time she denies any acute distress but endorses feeling weak and fatigued. In the emergency room workup was performed and it is notable for normal CBC, metabolic panel showing slightly low sodium of 129 and slightly low potassium of 3.3. D-dimer was normal, magnesium is normal, BNP is normal and troponin is normal x1. Vital signs unremarkable with exception of blood pressure 179/92. Oxygen saturations 100% on room air. EKG showing normal sinus rhythm 90 ventricular beats per minute without any ectopy or ischemia. Chest x-ray is without any acute cardiopulmonary abnormalities. As patient has an elevated heart score of 5, she is at a moderate risk for MORAIMA, and is therefore being admitted in this setting for monitoring and rule out. Review of Systems Review of Systems: All systems reviewed & are unremarkable except as noted in HPI and below [facility] Past Medical History Medical History (Updated 09/26/24 @ 00:54 by Connie Crane APN-Danyell) GERD (gastroesophageal reflux disease) Diabetes Electrolyte abnormality Hypertension Coronary artery disease Fatigue Asthma Anxiety Family History Family History Father Alcoholism Mother Alcoholism Other Alcoholism Hypertension Depression Social History Social History Smoking status: Never smoker Alcohol intake: never Substance use: never Meds Home Medications and Allergies Home Medications ?Medication ?Instructions ?Recorded ?Confirmed ?Type albuterol sulfate 2.5 mg/3 mL 2.5 mg inhalation Q6H 08/13/20 06/03/22 History (0.083 %) solution for nebulization amlodipine 5 mg tablet 5 mg PO DAILY 08/13/20 06/03/22 History blood sugar diagnostic 08/13/20 07/30/21 History gabapentin 600 mg tablet 600 mg PO TID 08/13/20 06/03/22 History pantoprazole 20 mg tablet,delayed 20 mg PO QAM 08/13/20 06/03/22 History release ziprasidone HCl 80 mg capsule 80 mg PO BID 08/13/20 06/03/22 History fluticasone fur. 200 mcg-umeclid 1 inh inhalation DAILY 06/03/22 06/03/22 History 62.5 mcg-vilant 25 mcg inhalat.powder (Trelegy Ellipta) hydroxyzine pamoate 25 mg capsule 25 mg PO DAILY 06/03/22 06/03/22 History insulin detemir U-100 100 unit/mL 20 unit subcut BID 06/03/22 06/03/22 History (3 mL) subcutaneous pen (Levemir FlexPen) insulin human U-100 NPH-regulr 10 unit subcut BID 06/03/22 06/03/22 History 70-30 mix 100 unit/mL subcutaneous susp (Novolin 70/30 U-100 Insulin) potassium chloride 20 mEq 20 meq PO BID #10 tabs 09/16/22 Rx tablet,extended release (K-Tab) Allergies Allergy/AdvReac Type Severity Reaction Status Date / Time azithromycin Allergy Mild Itching Verified 09/25/24 19:05 aspirin Allergy Difficulty Verified 09/25/24 19:05 Breathing clonazepam Allergy Anaphylaxis Verified 09/25/24 19:05 hydrochlorothiazide AdvReac Mild Itching Verified 09/25/24 19:07 cefdinir AdvReac Itching Verified 09/25/24 19:07 chlorthalidone AdvReac Itching Verified 09/25/24 19:05 Vital Signs Vital Signs - 24 hr 09/25/24 18:53 09/25/24 20:06 09/25/24 20:07 Temperature 98.0 F Pulse Rate 92 95 Respiratory Rate 17 22 H Blood Pressure 166/91 H 179/92 H Pulse Oximetry 100 100 Oxygen Delivery Room Air Room Air Exam Const: General: comfortable and no acute distress Other: Elderly, appearing older than documented age female patient lying supine at this time in no acute distress. HENMT: Face/Nose/Sinus: Normal nares present Eyes: General: appearance normal, both eyes and all related structures Sclera: scleral abnormality (Slight yellowish appearance to the right sclera only. Not present in left.) Pupils: Equal, round and reactive pupils present Neck: Neck: supple and no JVD Lymphatic: lymphadenopathy not noted Chest: Other: Nontender Resp: Effort & Inspection: normal respiratory effort Auscultation: diminished lung sounds diffuse Other: Diffusely diminished but clear breath sounds Cardio: Rate: regular rate Rhythm: regular rhythm Heart sounds: no gallops, no murmurs and no rubs Other: No peripheral edema GI: Inspection: non-distended GI Palp: Yes Soft to palpation and No Tenderness to palpation present (GI) Auscultation: normal bowel sounds Skin: General skin exam: normal color, no rashes or lesions noted and no erythema Rashes: no rashes noted Wounds: no wounds Neuro: General: No gait normal Speech: normal speech Motor exam (neuro): tone not normal throughout and Abnormal motor strength present (Bilateral lower extremities) Other: Patient does not walk secondary to 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 Extrem: General: normal exam except as noted, no edema and no pedal edema Other: Clubfoot deformity bilaterally Psych: Mental Status: mental status grossly normal Affect: normal affect H&P: Results Labs Labs: Short CBC 09/25/24 Range/Units 19:39 WBC 6.6 (4.5-10.0) K/mm3 Hgb 12.6 (12.0-15.0) g/dL Hct 38.3 (37.0-47.0) % Plt Count 169 (150-375) k/mm3 BMP 09/25/24 09/25/24 19:39 22:26 Sodium 127 L 129 L Potassium 3.2 L 3.3 L Chloride 90 L 97 L Carbon Dioxide 24 25 BUN 19 H 17 Creatinine 0.74 0.71 Glucose 199 H 143 H Calcium 10.1 9.2 Cardiac Enzymes 09/25/24 09/25/24 Range/Units 19:39 22:26 Troponin I < 0.012 < 0.012 (0.000-0.034) ng/mL Liver Function 09/25/24 Range/Units 19:39 Total Bilirubin 0.4 (0.2-1.3) mg/dL AST 37 H (14-36) U/L ALT 33 (6-35) U/L Alkaline Phosphatase 62 (38-126) U/L Albumin 4.7 (3.5-5.1) g/dL Assessment and Plan Assessment and plan (1) Chest pain: Code(s): R07.9 - Chest pain, unspecified Status: Acute Assessment and Plan: * Trend troponins x3 * Telemetry * Morphine 4 mg IV push p.r.n. for chest pain q.4 hours p.r.n. * Trend labs and vital signs (2) Coronary artery disease: Code(s): I25.10 - Atherosclerotic heart disease of [place] coronary artery without angina pectoris Status: Chronic Assessment and Plan: * As evidence by previous PCI requiring 1 stent 5-6 years ago * Heart score of 5 making patient moderate risk for MORAIMA * See plan for 1. (3) Acute dyspnea: Code(s): R06.00 - Dyspnea, unspecified Status: Chronic Assessment and Plan: * Suspect acute on chronic secondary to patient's COPD. * Reassuring oxygen saturations and vital signs, continue to monitor with vital signs. * Provide supplemental oxygen as needed * DuoNeb q.6 hours scheduled * Albuterol neb q.4 hours p.r.n. dyspnea/wheezing/shortness of breath * Consider pulmonology consult if needed for worsening or decompensation (4) Fatigue: Code(s): R53.83 - Other fatigue Status: Acute Assessment and Plan: * Uncertain etiology. * Will check B12 level, TSH with T4 reflex and vitamin-D (5) Hypertension: Code(s): I10 - Essential (primary) hypertension Status: Chronic Assessment and Plan: * Continue home medications once they have been confirmed and verified * P.r.n. IV hydralazine ordered in the interim with parameters * Monitor vital signs (6) Electrolyte abnormality: Code(s): E87.8 - Other disorders of electrolyte and fluid balance, not elsewhere classified Status: Acute Assessment and Plan: * Marginally low potassium at 3.3. She was given 40 mEq in the emergency room. Recheck with a.m. labs * Sodium level 129. Patient did receive IV fluids of normal saline in the emergency room. * Recheck with a.m. labs and consider osmolality testing if any worsening. (7) Diabetes: Code(s): E11.9 - Type 2 diabetes mellitus without complications Status: Chronic Assessment and Plan: * Diabetic diet * Glucose checks a.c. and HS and p.r.n. * Hypoglycemic protocol * Sliding scale insulin low-dose * Hold any oral hypoglycemics * I am uncertain what patient is taking for basal control but once confirmed will need to be restarted. Quality VTE Prophylaxis VTE prophylaxis: pharmacologic ordered Hospitalist MIPS Advance Care Plan I have confirmed that the patient's Advanced Care Plan is present, code status is documented, or surrogate decision maker is listed in patient medical record.: Yes Medication Reconciliation I have utilized all available resources to obtain, update and review the patients current medications (includes all prescriptions, OTC, herbals, cannabis, and nutritional supplements).: Yes
[2024-09-26 01:36] LABS: Hemoglobin A1C 5.8 % (<5.7)
[2024-09-26 01:50] LABS: Troponin I < 0.012 ng/mL (0.000-0.034)
[2024-09-26] MEDS: IPRATROPIUM 0.5 MG/ALBUTEROL SULFATE 2.5 MG AMPUL.NEB 3 ML INHALATION ×2 (02:04→08:36)
[2024-09-26 03:26] LABS: Vitamin B12 861.0 pg/mL (239-931)
[2024-09-26] MEDS: CLOPIDOGREL BISULFATE 75 MG TABLET PO (08:56)
[2024-09-26] MEDS: GABAPENTIN 300 MG CAPSULE PO ×3 (08:56→18:21)
[2024-09-26] MEDS: PANTOPRAZOLE SOD SESQUIHYDRATE 20 MG TAB PO (08:56)
[2024-09-26] MEDS: THIAMINE HCL 100 MG TABLET PO (08:56)
[2024-09-26 09:07] LABS: Albumin Level 4.5 g/dL (3.5-5.1); Anion Gap 8 mmol/L (4-12); Blood Urea Nitrogen 12 mg/dL (7-17); Calcium 10.0 mg/dL (8.4-10.2); Carbon Dioxide 28 mmol/L (22-30); Chloride 98 mmol/L (98-107); Estimated CRCL calculation 53 ml/min; Estimated Glomerular Filt Rate > 60; Glucose 123 mg/dL (65-110); Magnesium 1.8 mg/dL (1.6-2.3); Potassium 4.1 mmol/L (3.4-5.0); Sodium 134 mmol/L (137-145)
[2024-09-26] MEDS: INSULIN ASPART (*BKC) 100 UNITS/ML SUB-Q (12:12)
--- NOTE | 2024-09-26 12:37 | P.PNIM_ITS ---
Progress Note: A&P Assessment and Plan (1) Chest pain: Code(s): R07.9 - Chest pain, unspecified Status: Acute Assessment and Plan: Patient presents with chest pain. Heart score of 5 making patient moderate risk for ACS Troponins negative x3 EKG showing sinus rhythm, possible left atrial enlargement, and incomplete right bundle-branch block Chest x-ray was clear. COVID PCR was negative. D-dimer was negative. Echo ordered Cardiology consulted. Stress test planned. (2) Coronary artery disease: Code(s): I25.10 - Atherosclerotic heart disease of [place] coronary artery without angina pectoris Status: Chronic Assessment and Plan: CAD with previous PCI requiring 1 stent 5-6 years ago As above. Resume Plavix and COreg. Check lipid profile (3) Acute dyspnea: Code(s): R06.00 - Dyspnea, unspecified Status: Chronic Assessment and Plan: Suspect acute on chronic secondary to patient's COPD. Reassuring oxygen saturations and vital signs, continue to monitor with vital signs. Provide supplemental oxygen as needed DuoNeb q.6 hours held since no wheezing. Resume Trelegy Albuterol neb q.4 hours p.r.n. dyspnea/wheezing/shortness of breath (4) Fatigue: Code(s): R53.83 - Other fatigue Status: Acute Assessment and Plan: Uncertain etiology. B12 level normal. TSH pending Follow up on Echo (5) Hypertension: Code(s): I10 - Essential (primary) hypertension Status: Chronic Assessment and Plan: Patient's blood pressure was reviewed on 09/26 Blood pressure elevated Will resume some of her home medications. Monitor vital signs (6) Electrolyte abnormality: Code(s): E87.8 - Other disorders of electrolyte and fluid balance, not elsewhere classified Status: Acute Assessment and Plan: Marginally low potassium at 3.3 that was replaced Sodium level 129 and she did receive IV fluids; Repeat Na better Phos low today at 1.9; replacement ordered. Recheck with a.m. labs and consider osmolality testing if any worsening. (7) Diabetes: Code(s): E11.9 - Type 2 diabetes mellitus without complications Status: Chronic Assessment and Plan: A1c 5.8%. The patient's blood glucose was reviewed on 09/26 Glucose remains well controlled. Continue AccuCheks covering with sliding scale. Hypoglycemia protocol available as needed. Will resume Lantus but half dose. Hold meal time insulin given her low A1c. Plan DVT Prophylaxis - Lovenox Code status - Full Subjective Date/time seen: 09/26/24 12:37 Interval history: 64yo female with CAD, HTN and DM here for chest pain. Assuming care. Chart reviewed. She describes the rafael [facility] sharp. She slept poorly. No radiation to the pain or SOB. +Nausea. Chest pain is slightly pleuritic and is sore to touch. Not positional. Feels tired. Last stress test was about 3-4 yrs ago[address] with Dr Mckinney (sp?) and currently has a loop recorder in place. Exam Narrative: AF 97.5 159/77 88 18 97% ra Gen - NARD Chest - CTA bilaterally, nml RR. palpable chest wall pain CV - RRR S1/S2. Tele showing PVCs Abd - Soft, NT/ND, Positive BS Ext - No pedal edema. Bilateral LE muscle wasting with contractures and inversion at ankles Neuro - Alert and appropriate Psych - Nml mood and affect Skin - Warm and dry Objective Data Vital Signs Vital Signs: Vital Signs - 24 hr 09/25/24 18:53 09/25/24 20:06 09/25/24 20:07 Temperature 98.0 F Pulse Rate 92 95 Respiratory Rate 17 22 H Blood Pressure 166/91 H 179/92 H Pulse Oximetry 100 100 Oxygen Delivery Room Air Room Air 09/26/24 00:50 09/26/24 02:07 09/26/24 02:16 Temperature 98.6 F Pulse Rate 97 84 85 Respiratory Rate 16 16 16 Blood Pressure 149/76 H Pulse Oximetry 96 Oxygen Delivery 09/26/24 03:51 09/26/24 04:00 09/26/24 04:00 Temperature 98.1 F Pulse Rate 85 85 82 Respiratory Rate 16 16 Blood Pressure 134/74 Pulse Oximetry 96 96 Oxygen Delivery Room Air 09/26/24 07:24 09/26/24 08:00 09/26/24 08:00 Temperature 98 F Pulse Rate 82 90 84 Respiratory Rate 18 20 Blood Pressure 155/87 H Pulse Oximetry 97 93 Oxygen Delivery Room Air 09/26/24 08:37 09/26/24 08:37 09/26/24 08:52 Temperature Pulse Rate 78 78 90 Respiratory Rate 20 20 20 Blood Pressure Pulse Oximetry 93 Oxygen Delivery Room Air 09/26/24 10:00 09/26/24 11:06 09/26/24 12:00 Temperature 97.5 F L Pulse Rate 93 89 89 Respiratory Rate 18 18 Blood Pressure 159/77 H Pulse Oximetry 97 97 Oxygen Delivery Room Air 09/26/24 12:00 Temperature Pulse Rate 88 Respiratory Rate Blood Pressure Pulse Oximetry Oxygen Delivery Intake/Output Intake/Output: Intake & Output 09/23/24 09/24/24 09/25/24 09/26/24 23:59 23:59 23:59 23:59 Intake Total 1000 Output Total 500 Balance 1000 -500 Meds/Results Medications: Active Medications Generic Name Dose Route Start Last Admin Trade Name Freq PRN Reason Stop Dose Admin Albuterol 2.5 mg 09/26/24 08:11 Albuterol Sulfate Neb 2.5 Mg/3 Ml Inh INHALATION Q6H PRN shortness of breath or wheezing Amlodipine Besylate 5 mg 09/26/24 09:00 09/26/24 08:56 Amlodipine Besylate 5 Mg Tablet PO 5 mg DAILY LONNIE Administration Carvedilol 6.25 mg 09/26/24 21:00 Carvedilol 6.25 Mg Tablet PO Q12HR LONNIE Clopidogrel Bisulfate 75 mg 09/26/24 09:00 09/26/24 08:56 Clopidogrel Bisulfate 75 Mg Tablet PO 75 mg DAILY LONNIE Administration Dextrose 12.5 gm 09/26/24 00:52 Dextrose 50% 25 Gm/50 Ml Syringe IV PUSH PRN PRN Hypoglycemia Protocol Enoxaparin Sodium 40 mg 09/26/24 09:00 09/26/24 12:12 Enoxaparin 40 Mg/0.4 Ml Syringe SUB-Q Not Given DAILY [facility] Fluticasone/Umeclidinium/Vilanterol 1 puff 09/26/24 09:00 Fluticasone/Umeclidin/Vilanter 200-62.5-25 Mcg Ellipta INHALATION DAILY LONINE Gabapentin 300 mg 09/26/24 09:00 09/26/24 12:12 Gabapentin 300 Mg Capsule PO 300 mg TID LONNIE Administration Glucagon 1 mg 09/26/24 00:52 Glucagon For Inj 1 Mg Vial IM PRN PRN Hypoglycemia Protocol Glucose 15 gm 09/26/24 00:52 Glucose Oral Gel 15 Gm Of Glucse In 37.5 Gm Tube PO PRN PRN Hypoglycemia Protocol Hydralazine HCl 10 mg 09/26/24 00:52 Hydralazine Hcl 20 Mg/Ml Vial IV PUSH Q8H PRN Blood Pressure - High Hydroxyzine Pamoate 25 mg 09/26/24 09:00 09/26/24 08:56 Hydroxyzine Pamoate 25 Mg Capsule PO 25 mg DAILY LONNIE Administration Dextrose 1,000 mls @ 100 mls/hr 09/26/24 00:52 Dextrose 5% 1,000 Ml IVPB PRN PRN Hypoglycemia Protocol Insulin Aspart 2 - 5 units 09/26/24 08:00 09/26/24 12:12 Insulin Aspart (*Bkc) 100 Units/Ml SUB-Q Not Given TIDWM LONNIE Protocol Insulin Aspart 1 - 2 units 09/26/24 21:00 Insulin Aspart (*Bkc) 100 Units/Ml SUB-Q HS LONNIE Protocol Insulin Aspart 5 units 09/26/24 08:00 09/26/24 12:12 Insulin Aspart (*Bkc) 100 Units/Ml SUB-Q 5 units TIDWM LONNIE Administration Insulin Glargine 12 units 09/26/24 21:00 Insulin Glargine (*Bkc) 100 Units/Ml SUB-Q HS LONNIE Magnesium Gluconate 250 mg 09/26/24 21:00 Magnesium 13.5 Mg Tablet (250 Mg Mag Gluconate) PO HS LONNIE Morphine Sulfate 4 mg 09/26/24 00:52 Morphine Sulfate (*Crx) 4 Mg/Ml Inj IV PUSH Q4H PRN Pain Rated 7-10 Pantoprazole Sodium 20 mg 09/26/24 09:00 09/26/24 08:56 Pantoprazole Sod Sesquihydrate 20 Mg Tab PO 20 mg QAM LONNIE Administration Paroxetine HCl 40 mg 09/26/24 21:00 Paroxetine 20 Mg Tablet PO HS LONNIE Perflutren Lipid Microsphere 0 ml 09/26/24 09:37 Perflutren Lipid Microspheres 1.5 Ml Vial Diluted To 10 Ml Total Volume IV PUSH 09/29/24 09:38 ONCE PRN adequate visualization Protocol Senna 8.6 mg 09/26/24 09:00 09/26/24 08:57 Sennosides 8.6 Mg Tablet PO Not Given DAILY LONNIE Thiamine HCl 100 mg 09/26/24 09:00 09/26/24 08:56 Thiamine Hcl 100 Mg Tablet PO 100 mg DAILY LONNIE Administration Ziprasidone 160 mg 09/26/24 21:00 Ziprasidone Hcl 80 Mg Capsule PO HS [facility] Radiology Results: ITS Impressions Chest X-Ray 09/25/24 19:58 IMPRESSION: No acute cardiopulmonary pathology. Labs Labs: Laboratory Results - last 24 hr 09/25/24 09/25/24 09/25/24 19:37 19:39 21:30 WBC 6.6 RBC 4.51 Hgb 12.6 Hct 38.3 MCV 84.9 MCH 27.9 MCHC 32.9 RDW 13.3 Plt Count 169 MPV 8.8 Immature Gran % (Auto) 0.3 Neut % (Auto) 80.2 H Lymph % (Auto) 11.3 L [place] % (Auto) 6.9 Eos % (Auto) 0.8 Baso % (Auto) 0.5 Lymph # (Auto) 0.75 L [place] # (Auto) 0.5 Eos # (Auto) 0.1 Baso # (Auto) 0.0 Abs Immat Gran (auto) 0.02 Absolute Neuts (auto) 5.3 Absolute Nucleated RBC 0.000 Nucleated RBC % 0.0 PT 12.6 INR 0.9 APTT 29.2 D-Dimer 0.35 Sodium 127 L Potassium 3.2 L Chloride 90 L Carbon Dioxide 24 Anion Gap 13 H BUN 19 H Creatinine 0.74 Estim Creat Clear Calc 56 Estimated GFR > 60 Glucose 199 H POC Capillary Glucose Hemoglobin A1c Calcium 10.1 Phosphorus Magnesium 1.7 Total Bilirubin 0.4 AST 37 H ALT 33 Alkaline Phosphatase 62 Troponin I < 0.012 NT-Pro-B Natriuret Pep 21 Total Protein 6.9 Albumin 4.7 Lipase 60 Vitamin B12 Vitamin D 25-Hydroxy Influenza A (RT-PCR) Negative Influenza B (RT-PCR) Negative RSV (RT-PCR) Negative SARS-CoV-2 RNA (RT-PCR) Negative 09/25/24 09/26/24 09/26/24 22:26 01:19 07:25 WBC RBC Hgb Hct MCV MCH MCHC RDW Plt Count MPV Immature Gran % (Auto) Neut % (Auto) Lymph % (Auto) [place] % (Auto) Eos % (Auto) Baso % (Auto) Lymph # (Auto) [place] # (Auto) Eos # (Auto) Baso # (Auto) Abs Immat Gran (auto) Absolute Neuts (auto) Absolute Nucleated RBC Nucleated RBC % PT INR APTT D-Dimer Sodium 129 L Potassium 3.3 L Chloride 97 L Carbon Dioxide 25 Anion Gap 7 BUN 17 Creatinine 0.71 Estim Creat Clear Calc 58 Estimated GFR > 60 Glucose 143 H POC Capillary Glucose 124 H Hemoglobin A1c 5.8 H Calcium 9.2 Phosphorus Magnesium Total Bilirubin AST ALT Alkaline Phosphatase Troponin I < 0.012 < 0.012 NT-Pro-B Natriuret Pep Total Protein Albumin Lipase Vitamin B12 861.0 Vitamin D 25-Hydroxy 52.3 Influenza A (RT-PCR) Influenza B (RT-PCR) RSV (RT-PCR) SARS-CoV-2 RNA (RT-PCR) 09/26/24 09/26/24 08:34 11:07 WBC RBC Hgb Hct MCV MCH MCHC RDW Plt Count MPV Immature Gran % (Auto) Neut % (Auto) Lymph % (Auto) [place] % (Auto) Eos % (Auto) Baso % (Auto) Lymph # (Auto) [place] # (Auto) Eos # (Auto) Baso # (Auto) Abs Immat Gran (auto) Absolute Neuts (auto) Absolute Nucleated RBC Nucleated RBC % PT INR APTT D-Dimer Sodium 134 L Potassium 4.1 Chloride 98 Carbon Dioxide 28 Anion Gap 8 BUN 12 D Creatinine 0.78 Estim Creat Clear Calc 53 Estimated GFR > 60 Glucose 123 H POC Capillary Glucose 154 H Hemoglobin A1c Calcium 10.0 Phosphorus 1.9 L Magnesium 1.8 Total Bilirubin AST ALT Alkaline Phosphatase Troponin I NT-Pro-B Natriuret Pep Total Protein Albumin 4.5 Lipase Vitamin B12 Vitamin D 25-Hydroxy Influenza A (RT-PCR) Influenza B (RT-PCR) RSV (RT-PCR) SARS-CoV-2 RNA (RT-PCR)
[2024-09-26] MEDS: FLUTICASONE/UMECLIDIN/VILANTER 200-62.5-25 MCG ELLIPTA 1 PUFF INHALATION (13:29)
[2024-09-26] MEDS: POTASSIUM/PHOSPHORUS/SODIUM 1.5 GM PACKET 1 PACKET PO ×2 (14:30→18:21)
--- NOTE | 2024-09-26 14:38 | PC.NURSE ---
RN in room to administer medication. Pt asked for some lotion for her dry feet. RN left the room to obtain some lotion, when RN returned to the room RN heard an alarm. Alarm was found to be pt's Dexcom meter alarming low blood glucose. Blood glucose was 55. RN obtained a blood glucose from [facility]'s Accu-check machine to verify if blood glucose was actually low; blood glucose result was 60. Pt didn't want the glucose oral gel, so RN offered pt 8oz of OJ instead. 8oz of OJ was drank by pt, with a repeat Accu-check to be obtained in 15 minutes. notified
--- NOTE | 2024-09-26 16:34 | P.CONCA_ITS ---
Assessment and Plan Assessment and plan (1) Chest pain: Code(s): R07.9 - Chest pain, unspecified Status: Acute (2) Coronary artery disease: Code(s): I25.10 - Atherosclerotic heart disease of [place] coronary artery without angina pectoris Status: Chronic (3) Hypertension: Code(s): I10 - Essential (primary) hypertension Status: Chronic Plan 1. CAD prior PCI; details not known 2. Chest pain with both atypical and typical features 3. Aspirin allergy 4. Hypertension -stress test for her because of prior history of CAD and with chest pain with has both typical and atypical features -continue Plavix, statin, amlodipine -add beta-ary -If stress test is positive then she will need aspirin desensitization prior to PCI History of Present Illness History of Present Illness Consult date/time: 09/26/24 16:34 Reason For Visit: Chest pain Narrative: This is a very pleasant 64-year-old female patient known to have CAD post PCI 5- 6 years ago,, COPD, anxiety, diabetes, non-Hodgkin's lymphoma, was admitted with chest pain for the past 3-4 days Pain is both typical and atypical features. The patient is nonambulatory EKG shows normal sinus rhythm, poor progression of R-wave in anterior precordial leads suggestive of prior anterior wall WA. No dynamic ST or T-wave changes Negative troponin Review of Systems 2 Review of Systems: All systems reviewed & are unremarkable except as noted in HPI and below PMFSH Past Medical History Medical History (Updated 09/26/24 @ 00:54 by VENICE Mccain) GERD (gastroesophageal reflux disease) Diabetes Electrolyte abnormality Hypertension Coronary artery disease Fatigue Asthma Anxiety Family History Family History Father Alcoholism Mother Alcoholism Other Alcoholism Hypertension Depression Social History Social History Smoking packs per day: 1 Smoking cigarettes per day: 20.0 Years smoked: 30 Smoking pack-years: 30.00 Smoking status: Former smoker Alcohol intake: former Substance use: never Do You Feel Safe in your Home?: Yes Lack of Transportation: No Lack of Food: Never True Current Housing: I Have Housing Concerned About Future Housing: No Difficulty Paying Gas/Electric Bills: No Difficulty Paying for Meds: No Currently Unemployed: No Education: High School Diploma/GED Difficulty w/ Childcare or Family Care: No Spiritual care concerns: No Meds Home Medications and Allergies Home Medications ?Medication ?Instructions ?Recorded ?Confirmed ?Type albuterol sulfate 2.5 mg/3 mL 2.5 mg inhalation Q6H PRN 08/13/20 09/26/24 History (0.083 %) solution for nebulization shortness of breath or wheezing amlodipine 5 mg tablet 5 mg PO DAILY 08/13/20 09/26/24 History blood sugar diagnostic 08/13/20 09/26/24 History gabapentin 600 mg tablet 300 mg PO TID 08/13/20 09/26/24 History pantoprazole 20 mg tablet,delayed 20 mg PO QAM 08/13/20 09/26/24 History release ziprasidone HCl 80 mg capsule 160 mg PO HS 08/13/20 09/26/24 History fluticasone fur. 200 mcg-umeclid 1 inh inhalation DAILY 06/03/22 09/26/24 History 62.5 mcg-vilant 25 mcg inhalat.powder (Trelegy Ellipta) hydroxyzine pamoate 25 mg capsule 25 mg PO DAILY 06/03/22 09/26/24 History clopidogrel 75 mg tablet 75 mg PO DAILY 09/26/24 09/26/24 History insulin glargine 100 unit/mL (3 12 unit subcut QPM 09/26/24 09/26/24 History mL) subcutaneous pen (Lantus Solostar U-100 Insulin) insulin lispro 100 unit/mL 5 unit subcut TIDWM 09/26/24 09/26/24 History subcutaneous pen (Humalog KwikPen (U-100) Insulin) magnesium 250 mg tablet 250 mg PO HS 09/26/24 09/26/24 History paroxetine HCl 40 mg tablet 40 mg PO HS 09/26/24 09/26/24 History sennosides 8.6 mg capsule (senna) 8.6 mg PO DAILY 09/26/24 09/26/24 History thiamine HCl (vitamin B1) 100 mg 100 mg PO DAILY 09/26/24 09/26/24 History tablet (Vitamin B-1) Allergies Allergy/AdvReac Type Severity Reaction Status Date / Time azithromycin Allergy Mild Itching Verified 09/25/24 19:05 aspirin Allergy Difficulty Verified 09/25/24 19:05 Breathing clonazepam Allergy Anaphylaxis Verified 09/25/24 19:05 hydrochlorothiazide AdvReac Mild Itching Verified 09/25/24 19:07 cefdinir AdvReac Itching Verified 09/25/24 19:07 chlorthalidone AdvReac Itching Verified 09/25/24 19:05 Vital Signs Vital Signs - 24 hr 09/25/24 18:53 09/25/24 20:06 09/25/24 20:07 Temperature 36.7 C Pulse Rate 92 95 Respiratory Rate 17 22 H Blood Pressure 166/91 H 179/92 H Pulse Oximetry 100 100 Oxygen Delivery Room Air Room Air 09/26/24 00:50 09/26/24 02:07 09/26/24 02:16 Temperature 37.0 C Pulse Rate 97 84 85 Respiratory Rate 16 16 16 Blood Pressure 149/76 H Pulse Oximetry 96 Oxygen Delivery 09/26/24 03:51 09/26/24 04:00 09/26/24 04:00 Temperature 36.7 C Pulse Rate 85 85 82 Respiratory Rate 16 16 Blood Pressure 134/74 Pulse Oximetry 96 96 Oxygen Delivery Room Air 09/26/24 07:24 09/26/24 08:00 09/26/24 08:00 Temperature 36.6 C Pulse Rate 82 90 84 Respiratory Rate 18 20 Blood Pressure 155/87 H Pulse Oximetry 97 93 Oxygen Delivery Room Air 09/26/24 08:37 09/26/24 08:37 09/26/24 08:52 Temperature Pulse Rate 78 78 90 Respiratory Rate 20 20 20 Blood Pressure Pulse Oximetry 93 Oxygen Delivery Room Air 09/26/24 10:00 09/26/24 11:06 09/26/24 12:00 Temperature 36.4 C L Pulse Rate 93 89 89 Respiratory Rate 18 18 Blood Pressure 159/77 H Pulse Oximetry 97 97 Oxygen Delivery Room Air 09/26/24 12:00 09/26/24 13:30 09/26/24 13:30 Temperature Pulse Rate 88 93 93 Respiratory Rate 20 20 Blood Pressure Pulse Oximetry 96 Oxygen Delivery Room Air 09/26/24 14:00 09/26/24 15:52 09/26/24 16:00 Temperature 36.4 C L Pulse Rate 92 85 85 Respiratory Rate 18 18 Blood Pressure 142/73 H Pulse Oximetry 98 98 Oxygen Delivery Room Air 09/26/24 16:00 Temperature Pulse Rate 81 Respiratory Rate Blood Pressure Pulse Oximetry Oxygen Delivery Exam 2 Narrative: AF 97.5 159/77 88 18 97% ra Gen - NARD Chest - CTA bilaterally, nml RR. palpable chest wall pain CV - RRR S1/S2. Tele showing PVCs Abd - Soft, NT/ND, Positive BS Ext - No pedal edema. Bilateral LE muscle wasting with contractures and inversion at ankles Neuro - Alert and appropriate Psych - Nml mood and affect Skin - Warm and dry Const: General: comfortable and no acute distress Other: Elderly, appearing older than documented age female patient lying supine at this time in no acute distress. HENMT: Face/Nose/Sinus: Normal nares present Eyes: General: appearance normal, both eyes and all related structures S clera: scleral abnormality (Slight yellowish appearance to the right sclera only. Not present in left.) Pupils: Equal, round and reactive pupils present Neck: Neck: supple and no JVD Lymphatic: lymphadenopathy not noted Chest: Other: Nontender Resp: Effort & Inspection: normal respiratory effort Auscultation: d iminished lung sounds diffuse Other: Diffusely diminished but clear breath sounds Cardio: Rate: regular rate Rhythm: regular rhythm Heart sounds: no gallops, no murmurs and no rubs Other: No peripheral edema GI: Inspection: non-distended Auscultation: normal bowel sounds Skin: General skin exam: normal color, no rashes or lesions noted, no erythema and No rashes Rashes: no rashes noted Wounds: no wounds Neuro: General: No gait normal Cranial nerves: Yes Equal, round and reactive pupils present Speech: normal speech Motor exam (neuro): tone not normal throughout and Abnormal motor strength present (Bilateral lower extremities) Other: Patient does not walk secondary to 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 Extrem: General: normal exam except as noted, no edema and no pedal edema O ther: Clubfoot deformity bilaterally Psych: Mental Status: mental status grossly normal Affect: normal affect Results Labs and Meds 09/25/24 19:39 09/26/24 08:34 Lab results: Cardiac Enzymes 09/25/24 09/25/24 09/26/24 Range/Units 19:39 22:26 01:19 AST 37 H (14-36) U/L Troponin I < 0.012 < 0.012 < 0.012 (0.000-0.034) ng/mL Coagulation 09/25/24 Range/Units 19:39 PT 12.6 (11.1-14.7) Seconds APTT 29.2 (22.3-36.8) Seconds CBC 09/25/24 Range/Units 19:39 WBC 6.6 (4.5-10.0) K/mm3 RBC 4.51 (4.2-5.4) M/mm3 Hgb 12.6 (12.0-15.0) g/dL Hct 38.3 (37.0-47.0) % Plt Count 169 (150-375) k/mm3 Lymph # (Auto) 0.75 L (0.9-3.2) K/mm3 [place] # (Auto) 0.5 (0.1-0.6) K/mm3 Eos # (Auto) 0.1 (0-0.3) K/mm3 Baso # (Auto) 0.0 (0.0-0.1) K/mm3 Comprehensive Metabolic Panel 09/25/24 09/25/24 09/26/24 Range/Units 19:39 22:26 08:34 Sodium 127 L 129 L 134 L (137-145) mmol/L Potassium 3.2 L 3.3 L 4.1 (3.4-5.0) mmol/L Chloride 90 L 97 L 98 (98-107) mmol/L Carbon Dioxide 24 25 28 (22-30) mmol/L BUN 19 H 17 12 D (7-17) mg/dL Creatinine 0.74 0.71 0.78 (0.7-1.0) mg/dL Glucose 199 H 143 H 123 H (65-110) mg/dL Calcium 10.1 9.2 10.0 (8.4-10.2) mg/dL AST 37 H (14-36) U/L ALT 33 (6-35) U/L Alkaline Phosphatase 62 (38-126) U/L Total Protein 6.9 (6.3-8.2) g/dL Albumin 4.7 4.5 (3.5-5.1) g/dL Intake and Output 09/26/24 09/26/24 09/26/24 07:59 15:59 23:59 Intake Total 240 Output Total 500 Balance -500 240 Intake: Oral 240 Output: Urine 500 Patient Weight 09/26/24 23:59 Weight 56.3 kg
[2024-09-26] MEDS: ZIPRASIDONE HCL 80 MG CAPSULE 160 MG PO (21:39)
[2024-09-26] MEDS: INSULIN GLARGINE (*BKC) 100 UNITS/ML 6 UNITS SUB-Q (21:40)
[2024-09-26] MEDS: MAGNESIUM 13.5 MG TABLET (250 MG MAG GLUCONATE) PO (22:00)
[2024-09-27] VITALS (13 sets, daily range): BP systolic 130–153; BP diastolic 72–85; PULSE 51–77; RESP 16–20; TEMP 36.4–36.8; O2SAT 97–100
[2024-09-27 04:56] LABS: Hematocrit 40.7 % (37.0-47.0); Hemoglobin 12.9 g/dL (12.0-15.0); Immature Granulocyte Percent A 0.4 % (0-0.5); Lymphocytes Absolute Auto 1.44 K/mm3 (0.9-3.2); Mean Corpuscular HGB Conc 31.7 g/dl (32-36); Mean Corpuscular Hemoglobin 28.0 pg (26-34); Mean Corpuscular Volume 88.3 fl (80-100); Nucleated Red Blood Cells Absolute Auto 0.000 K/mm3 (0.0-0.012); Nucleated Red Blood Cells Perc 0.0 % (0.0-0.2); Platelet Count Result 167 k/mm3 (150-375); Red Blood Count 4.61 M/mm3 (4.2-5.4); White Blood Count 4.6 K/mm3 (4.5-10.0)
[2024-09-27 05:03] LABS: Alanine Aminotransferase 37 U/L (6-35); Albumin Level 4.5 g/dL (3.5-5.1); Alkaline Phosphatase 50 U/L (38-126); Anion Gap 8 mmol/L (4-12); Aspartate Amino Transferase 58 U/L (14-36); Bilirubin,Total 0.4 mg/dL (0.2-1.3); Blood Urea Nitrogen 12 mg/dL (7-17); Calcium 10.2 mg/dL (8.4-10.2); Carbon Dioxide 31 mmol/L (22-30); Chloride 95 mmol/L (98-107); Cholesterol 140 mg/dL (0-200); Estimated CRCL calculation 57 ml/min; Estimated Glomerular Filt Rate > 60; Glucose 100 mg/dL (65-110); HDL Direct 87 mg/dL; Magnesium 2.3 mg/dL (1.6-2.3); Potassium 3.9 mmol/L (3.4-5.0); Sodium 134 mmol/L (137-145); Total Protein 6.7 g/dL (6.3-8.2); Triglycerides 64 mg/dL (<150)
[2024-09-27 05:14] LABS: INR 1.0; Prothrombin Time 12.9 Seconds (11.1-14.7)
[2024-09-27 05:15] LABS: Partial Thromboplastin Time 31.7 Seconds (22.3-36.8)
[2024-09-27 05:42] LABS: Thyroid Stimulating Hormone Reflex 0.982 uIU/mL (0.465-4.68)
[2024-09-27] MEDS: FLUTICASONE/UMECLIDIN/VILANTER 200-62.5-25 MCG ELLIPTA 1 PUFF INHALATION (08:17)
[2024-09-27] MEDS: CLOPIDOGREL BISULFATE 75 MG TABLET PO (08:39)
[2024-09-27] MEDS: THIAMINE HCL 100 MG TABLET PO (08:39)
[2024-09-27] MEDS: SENNOSIDES 8.6 MG TABLET PO (08:39)
[2024-09-27] MEDS: ENOXAPARIN 40 MG/0.4 ML SYRINGE SUB-Q (08:39)
[2024-09-27] MEDS: PANTOPRAZOLE SOD SESQUIHYDRATE 20 MG TAB PO (08:40)
[2024-09-27] MEDS: GABAPENTIN 300 MG CAPSULE PO ×3 (08:40→16:41)
--- NOTE | 2024-09-27 08:47 | PM.PNCARD ---
Progress Note: A&P Assessment and Plan (1) Chest pain: Qualifiers: Chest pain type: unspecified Qualified Code(s): R07.9 - Chest pain, unspecified Code(s): R07.9 - Chest pain, unspecified Status: Acute (2) Coronary artery disease: Code(s): I25.10 - Atherosclerotic heart disease of [place] coronary artery without angina pectoris Status: Chronic (3) Hypertension: Code(s): I10 - Essential (primary) hypertension Status: Chronic Plan 1. CAD prior PCI; details not known 2. Chest pain with both atypical and typical features 3. Aspirin allergy 4. Hypertension Echo shows EF 60-65% (09/26/2024) -stress test for her because of prior history of CAD and with chest pain with has both typical and atypical features -continue Plavix, statin, amlodipine -continue beta-ary -If stress test is positive then she will need aspirin desensitization prior to PCI Subjective Date/time seen: 09/27/24 08:47 Interval history: No acute events overnight No more chest pain Echo shows EF 60-65% (09/26/2024) Review of Systems Review of Systems: All systems reviewed & are unremarkable except as noted in HPI and below Exam Narrative: AF 97.5 159/77 88 18 97% ra Gen - NARD Chest - CTA bilaterally, nml RR. palpable chest wall pain CV - RRR S1/S2. Tele showing PVCs Abd - Soft, NT/ND, Positive BS Ext - No pedal edema. Bilateral LE muscle wasting with contractures and inversion at ankles Neuro - Alert and appropriate Psych - Nml mood and affect Skin - Warm and dry Const: General: comfortable and no acute distress Other: Elderly, appearing older than documented age female patient lying supine at this time in no acute distress. HENMT: Face/Nose/Sinus: Normal nares present Eyes: General: appearance normal, both eyes and all related structures Sclera: scleral abnormality (Slight yellowish appearance to the right sclera only. Not present in left.) Pupils: Equal, round and reactive pupils present Neck: Neck: supple and no JVD Lymphatic: lymphadenopathy not noted Chest: Other: Nontender Resp: Effort & Inspection: normal respiratory effort Auscultation: diminished lung sounds diffuse Other: Diffusely diminished but clear breath sounds Cardio: Rate: regular rate Rhythm: regular rhythm Heart sounds: no gallops, no murmurs and no rubs Other: No peripheral edema GI: Inspection: non-distended Auscultation: normal bowel sounds Skin: General skin exam: normal color, no rashes or lesions noted, no erythema and No rashes Rashes: no rashes noted Wounds: no wounds Neuro: General: No gait normal Cranial nerves: Yes Equal, round and reactive pupils present Speech: normal speech Motor exam (neuro): tone not normal throughout and Abnormal motor strength present (Bilateral lower extremities) Other: Patient does not walk secondary to 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 Extrem: General: normal exam except as noted, no edema and no pedal edema Other: Clubfoot deformity bilaterally Psych: Mental Status: mental status grossly normal Affect: normal affect Objective Data Vital Signs Vital Signs: Vital Signs - 24 hr 09/26/24 08:52 09/26/24 10:00 09/26/24 11:06 Temperature 36.4 C L Pulse Rate 90 93 89 Respiratory Rate 20 18 Blood Pressure 159/77 H Pulse Oximetry 97 Oxygen Delivery 09/26/24 12:00 09/26/24 12:00 09/26/24 13:30 Temperature Pulse Rate 89 88 93 Respiratory Rate 18 20 Blood Pressure Pulse Oximetry 97 96 Oxygen Delivery Room Air Room Air 09/26/24 13:30 09/26/24 14:00 09/26/24 15:52 Temperature 36.4 C L Pulse Rate 93 92 85 Respiratory Rate 20 18 Blood Pressure 142/73 H Pulse Oximetry 98 Oxygen Delivery 09/26/24 16:00 09/26/24 16:00 09/26/24 18:00 Temperature Pulse Rate 85 81 87 Respiratory Rate 18 Blood Pressure Pulse Oximetry 98 Oxygen Delivery Room Air 09/26/24 19:51 09/26/24 20:00 09/26/24 20:00 Temperature 36.8 C Pulse Rate 76 83 83 Respiratory Rate 16 16 Blood Pressure 165/86 H Pulse Oximetry 94 94 Oxygen Delivery Room Air 09/26/24 21:39 09/26/24 22:00 09/26/24 23:45 Temperature 36.8 C Pulse Rate 83 76 60 Respiratory Rate 16 Blood Pressure 120/60 Pulse Oximetry 97 Oxygen Delivery 09/27/24 00:00 09/27/24 00:00 09/27/24 03:00 Temperature Pulse Rate 56 L 56 L 51 L Respiratory Rate 16 Blood Pressure Pulse Oximetry 97 Oxygen Delivery Room Air 09/27/24 03:27 09/27/24 03:28 09/27/24 04:00 Temperature 36.8 C Pulse Rate 51 L 51 L 59 L Respiratory Rate 16 16 Blood Pressure 153/74 H Pulse Oximetry 97 100 Oxygen Delivery Room Air 09/27/24 06:00 09/27/24 07:51 Temperature 36.4 C L Pulse Rate 59 L 58 L Respiratory Rate 16 Blood Pressure 130/72 Pulse Oximetry 99 Oxygen Delivery Intake/Output Intake/Output: Intake & Output 09/24/24 09/25/24 09/26/24 09/27/24 23:59 23:59 23:59 23:59 Intake Total 1000 480 350 Output Total 500 700 Balance 1000 -20 -350 Meds/Results Medications: Active Medications Generic Name Dose Route Start Last Admin Trade Name Freq PRN Reason Stop Dose Admin Acetaminophen 650 mg 09/26/24 18:17 Acetaminophen 325 Mg Tablet PO Q6H PRN Mild Pain (1-3) or Fever Albuterol 2.5 mg 09/26/24 08:11 Albuterol Sulfate Neb 2.5 Mg/3 Ml Inh INHALATION Q6H PRN shortness of breath or wheezing Amlodipine Besylate 5 mg 09/26/24 09:00 09/27/24 08:39 Amlodipine Besylate 5 Mg Tablet PO 5 mg DAILY LONNIE Administration Carvedilol 6.25 mg 09/26/24 21:00 09/26/24 21:39 Carvedilol 6.25 Mg Tablet PO 6.25 mg Q12HR LONNIE Administration Clopidogrel Bisulfate 75 mg 09/26/24 09:00 09/27/24 08:39 Clopidogrel Bisulfate 75 Mg Tablet PO 75 mg DAILY LONNIE Administration Dextrose 12.5 gm 09/26/24 00:52 Dextrose 50% 25 Gm/50 Ml Syringe IV PUSH PRN PRN Hypoglycemia Protocol Enoxaparin Sodium 40 mg 09/26/24 09:00 09/27/24 08:39 Enoxaparin 40 Mg/0.4 Ml Syringe SUB-Q 40 mg DAILY LONNIE Administration Fluticasone/Umeclidinium/Vilanterol 1 puff 09/26/24 09:00 09/27/24 08:17 Fluticasone/Umeclidin/Vilanter 200-62.5-25 Mcg Ellipta INHALATION 1 puff DAILY LONNIE Administration Gabapentin 300 mg 09/26/24 09:00 09/27/24 08:40 Gabapentin 300 Mg Capsule PO 300 mg TID LONNIE Administration Glucagon 1 mg 09/26/24 00:52 Glucagon For Inj 1 Mg Vial IM PRN PRN Hypoglycemia Protocol Glucose 15 gm 09/26/24 00:52 Glucose Oral Gel 15 Gm Of Glucse In 37.5 Gm Tube PO PRN PRN Hypoglycemia Protocol Hydralazine HCl 10 mg 09/26/24 00:52 Hydralazine Hcl 20 Mg/Ml Vial IV PUSH Q8H PRN Blood Pressure - High Hydroxyzine Pamoate 25 mg 09/26/24 09:00 09/27/24 08:39 Hydroxyzine Pamoate 25 Mg Capsule PO 25 mg DAILY LONNIE Administration Dextrose 1,000 mls @ 100 mls/hr 09/26/24 00:52 Dextrose 5% 1,000 Ml IVPB PRN PRN Hypoglycemia Protocol Insulin Aspart 2 - 5 units 09/26/24 08:00 09/27/24 07:42 Insulin Aspart (*Bkc) 100 Units/Ml SUB-Q Not Given TIDWM LONNIE Protocol Insulin Aspart 1 - 2 units 09/26/24 21:00 09/26/24 21:25 Insulin Aspart (*Bkc) 100 Units/Ml SUB-Q Not Given HS LONNIE Protocol Insulin Aspart 5 units 09/26/24 08:00 09/26/24 12:12 Insulin Aspart (*Bkc) 100 Units/Ml SUB-Q 5 units TIDWM LONNIE Administration Insulin Glargine 6 units 09/26/24 21:00 09/26/24 21:40 Insulin Glargine (*Bkc) 100 Units/Ml SUB-Q 6 units HS LONNIE Administration Magnesium Gluconate 250 mg 09/26/24 21:00 09/26/24 22:00 Magnesium 13.5 Mg Tablet (250 Mg Mag Gluconate) PO 250 mg HS LONNIE Administration Morphine Sulfate 4 mg 09/26/24 00:52 Morphine Sulfate (*Crx) 4 Mg/Ml Inj IV PUSH Q4H PRN Pain Rated 7-10 Pantoprazole Sodium 20 mg 09/26/24 09:00 09/27/24 08:40 Pantoprazole Sod Sesquihydrate 20 Mg Tab PO 20 mg QAM LONNIE Administration Paroxetine HCl 40 mg 09/26/24 21:00 09/26/24 21:39 Paroxetine 20 Mg Tablet PO 40 mg HS LONNIE Administration Perflutren Lipid Microsphere 0 ml 09/26/24 09:37 Perflutren Lipid Microspheres 1.5 Ml Vial Diluted To 10 Ml Total Volume IV PUSH 09/29/24 09:38 ONCE PRN adequate visualization Protocol Senna 8.6 mg 09/26/24 09:00 09/27/24 08:39 Sennosides 8.6 Mg Tablet PO 8.6 mg DAILY LONNIE Administration Thiamine HCl 100 mg 09/26/24 09:00 09/27/24 08:39 Thiamine Hcl 100 Mg Tablet PO 100 mg DAILY LONNIE Administration Ziprasidone 160 mg 09/26/24 21:00 09/26/24 21:39 Ziprasidone Hcl 80 Mg Capsule PO 160 mg HS LONNIE Administration Radiology Results: ITS Impressions Chest X-Ray 09/25/24 19:58 IMPRESSION: No acute cardiopulmonary pathology. Labs Labs: Laboratory Results - last 24 hr 09/26/24 09/26/24 09/26/24 08:34 11:07 14:35 WBC RBC Hgb Hct MCV MCH MCHC RDW Plt Count MPV Immature Gran % (Auto) Neut % (Auto) Lymph % (Auto) [place] % (Auto) Eos % (Auto) Baso % (Auto) Lymph # (Auto) [place] # (Auto) Eos # (Auto) Baso # (Auto) Abs Immat Gran (auto) Absolute Neuts (auto) Absolute Nucleated RBC Nucleated RBC % PT INR APTT Sodium 134 L Potassium 4.1 Chloride 98 Carbon Dioxide 28 Anion Gap 8 BUN 12 D Creatinine 0.78 Estim Creat Clear Calc 53 Estimated GFR > 60 Glucose 123 H POC Capillary Glucose 154 H 60 L Calcium 10.0 Phosphorus 1.9 L Magnesium 1.8 Total Bilirubin AST ALT Alkaline Phosphatase Total Protein Albumin 4.5 Triglycerides Cholesterol LDL Cholesterol Direct HDL Direct TSH (Reflex) 09/26/24 09/26/24 09/26/24 14:53 16:49 19:50 WBC RBC Hgb Hct MCV MCH MCHC RDW Plt Count MPV Immature Gran % (Auto) Neut % (Auto) Lymph % (Auto) [place] % (Auto) Eos % (Auto) Baso % (Auto) Lymph # (Auto) [place] # (Auto) Eos # (Auto) Baso # (Auto) Abs Immat Gran (auto) Absolute Neuts (auto) Absolute Nucleated RBC Nucleated RBC % PT INR APTT Sodium Potassium Chloride Carbon Dioxide Anion Gap BUN Creatinine Estim Creat Clear Calc Estimated GFR Glucose POC Capillary Glucose 115 H 110 H 134 H Calcium Phosphorus Magnesium Total Bilirubin AST ALT Alkaline Phosphatase Total Protein Albumin Triglycerides Cholesterol LDL Cholesterol Direct HDL Direct TSH (Reflex) 09/27/24 09/27/24 04:21 07:28 WBC 4.6 RBC 4.61 Hgb 12.9 Hct 40.7 MCV 88.3 MCH 28.0 MCHC 31.7 L RDW 13.7 Plt Count 167 MPV 8.5 Immature Gran % (Auto) 0.4 Neut % (Auto) 52.9 Lymph % (Auto) 31.4 Motley % (Auto) 11.1 H Eos % (Auto) 3.5 Baso % (Auto) 0.7 Lymph # (Auto) 1.44 [place]ley # (Auto) 0.5 Eos # (Auto) 0.2 Baso # (Auto) 0.0 Abs Immat Gran (auto) 0.02 Absolute Neuts (auto) 2.4 Absolute Nucleated RBC 0.000 Nucleated RBC % 0.0 PT 12.9 INR 1.0 APTT 31.7 Sodium 134 L Potassium 3.9 Chloride 95 L Carbon Dioxide 31 H Anion Gap 8 BUN 12 Creatinine 0.72 Estim Creat Clear Calc 57 Estimated GFR > 60 Glucose 100 POC Capillary Glucose 107 H Calcium 10.2 Phosphorus 3.7 Magnesium 2.3 Total Bilirubin 0.4 AST 58 H ALT 37 H Alkaline Phosphatase 50 Total Protein 6.7 Albumin 4.5 Triglycerides 64 Cholesterol 140 LDL Cholesterol Direct < 30 HDL Direct 87 TSH (Reflex) 0.982
--- NOTE | 2024-09-27 10:53 | EST_ITS ---
Patient Info Name: Paula Lomeli Age: 64 years : 1960 Gender: Female Ht: 64 in Wt: 124 lbs BSA: 1.59 m2 HR: 63 bpm BP: 122 / 77 mmHg Exam Date: 09/27/2024 10:53 AM Patient Status: I Admit Date: 09/26/2024 Exam Type: CA stress ynes w NM A regadenoson stress test was performed. Staff Referring Physician: Maral Davis Attending Provider: Tano Mckinney MD Nurse: Citlalli Arredondo Exercise Technologist: Michelle Khan Summary 1. Baseline incomplete LBBB. 2. There is no ECG evidence of ischemia on pharmacological stress test. Protocol: Lexiscan Stress ECG Details Stage: REST Duration (min): 0 min : 29 sec HR (bpm): 63 SBP (mmHg): --- DBP (mmHg): --- Stage: REST Duration (min): 9 min : 11 sec HR (bpm): 64 SBP (mmHg): 122 DBP (mmHg): 77 Stage: STAGE 1 Duration (min): 1 min : 0 sec HR (bpm): 81 SBP (mmHg): 130 DBP (mmHg): 81 Stage: RECOVERY Duration (min): 1 min : 0 sec HR (bpm): 91 SBP (mmHg): 130 DBP (mmHg): 81 Stage: RECOVERY Duration (min): 2 min : 0 sec HR (bpm): 91 SBP (mmHg): 130 DBP (mmHg): 81 Stage: RECOVERY Duration (min): 3 min : 0 sec HR (bpm): 88 SBP (mmHg): 118 DBP (mmHg): 65 Stage: RECOVERY Duration (min): 3 min : 22 sec HR (bpm): 85 SBP (mmHg): 118 DBP (mmHg): 65 Rest HR: 64 bpm Peak HR: 93 bpm Rest Sys BP: 122 mmHg Peak Sys BP: 130 mmHg Max Pred HR: 154 bpm % Max Pred HR: 60 % Target HR: 131 bpm Max RPP: 12,090 bpm*mmHg Total Time: 1 min : 0 sec Rest Kemp BP: 77 mmHg Peak Kemp BP: 81 mmHg Total Dose: 0.4 mg Report Signatures
[2024-09-27] MEDS: ACETAMINOPHEN 325 MG TABLET 650 MG PO (14:59)
--- NOTE | 2024-09-27 16:42 | P.DS_ITS ---
DS: Admitting Diagnosis Discharge Date 09/27/24 Admitting Diagnosis Chest pain DS: Discharge Diagnosis Discharge Diagnosis (1) Chest pain: Qualifiers: Chest pain type: unspecified Qualified Code(s): R07.9 - Chest pain, unspecified Code(s): R07.9 - Chest pain, unspecified Status: Acute (2) Coronary artery disease: Code(s): I25.10 - Atherosclerotic heart disease of [place] coronary artery without angina pectoris Status: Chronic (3) Acute dyspnea: Code(s): R06.00 - Dyspnea, unspecified Status: Chronic (4) Fatigue: Code(s): R53.83 - Other fatigue Status: Acute (5) Hypertension: Code(s): I10 - Essential (primary) hypertension Status: Chronic (6) Electrolyte abnormality: Code(s): E87.8 - Other disorders of electrolyte and fluid balance, not elsewhere classified Status: Acute (7) Diabetes: Code(s): E11.9 - Type 2 diabetes mellitus without complications Status: Chronic DS: Summary Hospital Course Reason for hospitalization: 64yo female with CAD, HTN and DM here for chest pain. Please see H&P for details. Hospital Course: (1) Chest pain: Patient presents with chest pain. Heart score of 5 making patient moderate risk for ACS Troponins negative x3 EKG showing sinus rhythm, possible left atrial enlargement, and incomplete right bundle-branch block Chest x-ray was clear. COVID PCR was negative. D-dimer was negative. Echo showing EF 60-65%, diastolic dysfunction Grade I and no significant valvular disease. Cardiology consulted and stress test planned. Lexiscan stress test showing incomplete left BBB but no ECG evidence of ischemia on pharmacological stress test. Images showing normal myocardial perfusion at rest and during stress with EF >70%. Chest pain felt not cardiac related. Cardiology recommended adding Coreg and Lipitor. (2) Coronary artery disease: CAD with previous PCI requiring 1 stent 5-6 years ago We continued Plavix and Coreg. (3) Acute dyspnea: Suspect acute on chronic secondary to patient's COPD. Reassuring oxygen saturations and vital signs Provide supplemental oxygen as needed We continued Trelegy Albuterol neb q.4 hours p.r.n. was available for dyspnea/wheezing/shortness of breath (4) Fatigue: Uncertain etiology. TSH and B12 level normal. Echo as above (5) Hypertension: Patient's blood pressure was monitored closely and remained well controlled. (6) Electrolyte abnormality: Marginally low potassium at 3.3 that was replaced Sodium level 129 and she did receive IV fluids; Repeat Na better Phos low and this was replaced (7) Diabetes: A1c 5.8%. The patient's blood glucose was monitored with AccuCheks covering with sliding scale. Hypoglycemia protocol available as needed. Lantus resumed at half dose and we held meal time insulin given her low A1c. She overall did well and was able to be discharged home on 09/27/24. Status at Discharge Cognitive/behavioral status at discharge: stable Time Spent with Patient Time attestation: Total time spent providing and/or coordinating discharge services: 34 minutes Time spent: Greater than 30 minutes Exam Narrative: AF 98.0 141/85 68 20 98% ra Gen - NARD Chest - CTA bilaterally CV - RRR S1/S2. Tele showing PVCsno significant dysrhythmias Ext - No pedal edema. Chronic inversion at ankles Neuro - Alert and appropriate Psych - Nml mood and affect Skin - Warm and dry DS: Data Data Completed and Pending Labs on day of discharge: Labs from last 24 hours 09/27/24 09/27/24 09/27/24 12:38 07:28 04:21 WBC 4.6 RBC 4.61 Hgb 12.9 Hct 40.7 MCV 88.3 MCH 28.0 MCHC 31.7 L RDW 13.7 Plt Count 167 MPV 8.5 Immature Gran % (Auto) 0.4 Neut % (Auto) 52.9 Lymph % (Auto) 31.4 [place] % (Auto) 11.1 H Eos % (Auto) 3.5 Baso % (Auto) 0.7 Lymph # (Auto) 1.44 [place] # (Auto) 0.5 Eos # (Auto) 0.2 Baso # (Auto) 0.0 Abs Immat Gran (auto) 0.02 Absolute Neuts (auto) 2.4 Absolute Nucleated RBC 0.000 Nucleated RBC % 0.0 PT 12.9 INR 1.0 APTT 31.7 Sodium 134 L Potassium 3.9 Chloride 95 L Carbon Dioxide 31 H Anion Gap 8 BUN 12 Creatinine 0.72 Estim Creat Clear Calc 57 Estimated GFR > 60 Glucose 100 POC Capillary Glucose 147 H 107 H Calcium 10.2 Phosphorus 3.7 Magnesium 2.3 Total Bilirubin 0.4 AST 58 H ALT 37 H Alkaline Phosphatase 50 Total Protein 6.7 Albumin 4.5 Triglycerides 64 Cholesterol 140 LDL Cholesterol Direct < 30 HDL Direct 87 TSH (Reflex) 0.982 09/26/24 09/26/24 19:50 16:49 WBC RBC Hgb Hct MCV MCH MCHC RDW Plt Count MPV Immature Gran % (Auto) Neut % (Auto) Lymph % (Auto) [place] % (Auto) Eos % (Auto) Baso % (Auto) Lymph # (Auto) [place] # (Auto) Eos # (Auto) Baso # (Auto) Abs Immat Gran (auto) Absolute Neuts (auto) Absolute Nucleated RBC Nucleated RBC % PT INR APTT Sodium Potassium Chloride Carbon Dioxide Anion Gap BUN Creatinine Estim Creat Clear Calc Estimated GFR Glucose POC Capillary Glucose 134 H 110 H Calcium Phosphorus Magnesium Total Bilirubin AST ALT Alkaline Phosphatase Total Protein Albumin Triglycerides Cholesterol LDL Cholesterol Direct HDL Direct TSH (Reflex) Discharge Plan Discharge Attending physician on discharge: Tano Mckinney Consulting providers: Maral Davis Discharging Clinician: Tano Mckinney Anticipated Discharge Date/Time: 09/27/24 17:07 Patient Disposition: Home Activity: as tolerated Diet: diabetic Discharge Instructions: Please check glucose before meals and before bed. Record and bring into your doctor for review. Check blood pressure 1 to 2 times a day. Record and bring into your doctor for review. Call your doctor if your blood pressure is greater than 180/110. Take precautions to avoid falls. Rise slowly from a lying or sitting position. Pause before standing or walking. Contact your doctor or call 911 and come to the Emergency Room if you have lightheadedness with standing or other worrisome symptoms. Avoid NSAIDs (ibuprofen, naproxen, Aleve). Tylenol is safe to take. Follow-up with your primary care provider in 1-2 weeks. Please call for appointment. Follow-up with your accounting support specialist in 3-4 weeks. Please call for appointment Thank you for using [facility] for your health care needs. Patient Instructions: Antibiotic Form, Enoxaparin (By injection) Patient Language: Occitan Stand Alone Forms: General Discharge Information Follow-up/Referrals: Chacho,MD Agustin [Primary Care Provider] - Call for Appointment Discharge Medications: New carvedilol [Coreg] 6.25 mg Tablet 6.25 mg PO Q12HR Qty: 60 0RF atorvastatin [Lipitor] 10 mg tablet 10 mg PO DAILY Qty: 30 0RF Continued albuterol sulfate 2.5 mg /3 mL (0.083 %) solution for nebulization 2.5 mg inhalation Q6H PRN (Reason: shortness of breath or wheezing) pantoprazole 20 mg tablet,delayed release (DR/EC) 20 mg PO QAM gabapentin 600 mg tablet 300 mg PO TID (DME) blood sugar diagnostic Strip See Rx Instructions .Route Rx Instructions: As directed ziprasidone HCl 80 mg capsule 160 mg PO HS Rx Instructions: give with food (meal/snack) amlodipine 5 mg tablet 5 mg PO DAILY hydroxyzine pamoate 25 mg Capsule 25 mg PO DAILY Trelegy Ellipta 200-62.5-25 mcg Blister With Device 1 inh INHALATION DAILY clopidogrel 75 mg tablet 75 mg PO DAILY paroxetine HCl 40 mg tablet 40 mg PO HS senna 8.6 mg capsule 8.6 mg PO DAILY thiamine HCl (vitamin B1) [Vitamin B-1] 100 mg tablet 100 mg PO DAILY magnesium 250 mg tablet 250 mg PO HS Changed insulin glargine [Lantus Solostar U-100 Insulin] 100 unit/mL (3 mL) insulin pen 6 unit SUBCUT QPM Qty: 1 0RF Held insulin lispro [Humalog KwikPen Insulin] 100 unit/mL insulin pen 5 unit SUBCUT TIDWM Hold Instructions: Hold and resume when okay with your doctor Other Ambulatory Orders: Comprehensive Metabolic Panel (Routine) Timeframe: 1 Week Location: Determined by Patient Ordered By: Tano Mckinney Date of admission: 09/26/24 15:05 Primary Care Provider: Lily*Agustin Admitting Provider: Tano Mckinney Attending physician on admission: Tano Mckinney Condition: Stable Hospitalist MIPS Heart Failure (Exclusion) Patient has history of Heart Transplant or Left Ventricular Assistive Device?: No IF YES, STOP HERE Heart Failure (Qualifier) Patient has current or prior documentation of LVEF less than or equal to 40%, or mod/servere depressed LVSF?: No IF NO, STOP HERE
--- NOTE | 2024-10-01 07:19 | P.CDI_ITS ---
CDI Query Clarification Request 1)BMI: 21.3 Nutritional Diagnostic Statement: Please refer to the comprehensive nutrition assessment for further information. If you agree with diagnosis of Moderate protein calorie malnutrition related to inadequate energy intake as evidenced by a significant weight loss of -11% x 3 months and NFPE findings for moderate subcutaneous fat loss (cheeks) and moderate muscle wasting (restoration, clavicle). Please specify severity if known: * Mild * Moderate * Severe * Other/Unknown
== END 2024-09-27 19:09 | disposition home or self-care (01) | DRG 313 ==
LOC: ANHED 20:29 → ANHIMU 09-26 00:17
PROVIDERS: Nurse Practitioner Adult Health; Student in an Organized Health Care Education/Training Program; Admitting Provider Internal Medicine; Emergency Provider Physician Assistant; PCP Internal Medicine; Visit Provider Internal Medicine
DX: R07.89 Other chest pain (principal); I25.10 Atherosclerotic heart disease of native coronary artery without angina pectoris; I10 Essential (primary) hypertension; E11.9 Type 2 diabetes mellitus without complications; J44.9 Chronic obstructive pulmonary disease, unspecified; K21.9 Gastro-esophageal reflux disease without esophagitis; J45.909 Unspecified asthma, uncomplicated; F41.9 Anxiety disorder, unspecified; Z87.891 Personal history of nicotine dependence; Z95.5 Presence of coronary angioplasty implant and graft; Z85.72 Personal history of non-Hodgkin lymphomas
CPT/HCPCS: 36415; 71046; 78452; 80048; 80053; 80061; 80069; 82306; 82607; 82948; 83036; 83690; 83735; 83880; 84100; 84443; 84484; 85025; 85380; 85610; 85730; 87637; 93005; 93017; 93306; 94640; 96361; 96372; 96374; 96375; 96376; 99285; A9270; A9502; G0378; J1650; J1815; J2270; J2405; J2785; J7030

== ENCOUNTER 2025-01-15 08:00 | Outpatient (CLI) | payer MEDICARE, MEDICAID, SELFPAY ==
--- NOTE | ~2025-01-15 | MM_ITS ---
EXAMINATION: MM screening carl BI w luis alberto HISTORY: Screening TECHNIQUE: Craniocaudal and mediolateral oblique 3-D tomosynthesis images were obtained and synthetic 2-D images were generated. CAD analysis was submitted and interpreted. COMPARISON: No prior mammogram is available for comparison at this institution. BREAST PARENCHYMAL COMPOSITION: Dense: The breasts are heterogeneously dense, which may obscure small masses FINDINGS: There is no evidence of suspicious mass, calcification, or architectural distortion to suggest malignancy in either breast. There has been no suspicious interval change. IMPRESSION: 1. No mammographic evidence of malignancy. 2. Recommend routine screening mammography in one year. BI-RADS Category 1: Negative Reviewed, dictated and finalized at location O.
--- OUTSIDE RECORDS SUMMARY | 2025-01-15 08:10 | XMS_ITS ---
Author Organization [facility] [address] Address [address] [place] [address] Care Team Providers Care Institute Scientist Name Role Phone Agustin Flor MD Primary Care Provider [phone] Annie Simpson MD Unavailable [phone] Active Problems Problem Noted Date Diagnosed Date PFO (patent foramen ovale) 02/22/2024 Assessment & Plan (08/22/2024 2:55 PM CDT): She has completed the repair procedure and followed with cardiology This significantly improved her dyspnea on exertion. Assessment & Plan (02/22/2024 9:06 AM FOOD CHECKER): She has followed with cardiology and has now seen a surgeon with plans for repair in the next several months We will reassess her dyspnea after her recovery from this procedure Centrilobular emphysema 02/22/2024 Assessment & Plan (08/22/2024 2:54 PM CDT): Continue Trelegy Ellipta 100 daily at the same time Albuterol 2 puffs every 4 hours as needed only, we have discussed indications for use A1AT MM She was not a candidate for surgical repair of her foot drop, I have encouraged her to remain as active as possible with these limitations We have discussed signs and symptoms that would require earlier evaluation or change to her plan of care Assessment & Plan (02/22/2024 9:05 AM FOOD CHECKER): Continue Trelegy Ellipta 100 daily Albuterol as [...] 02/21 Assessment & Plan (02/22/2024 9:06 AM FOOD CHECKER): Last CT chest in November of 2023 [...] Lifetime Dose Automatic Entry Manual Entr y Fluoro Time 4.7 minutes 0 minutes 4.7 minutes Air kerma at the reference point (Ka,r) 97 mGy 0 mGy 97 mGy
--- OUTSIDE RECORDS SUMMARY | 2025-01-15 08:10 | XMS_ITS | Encounter Summary ---
Author Organization [facility] Healthcare Address [address] [place] [address] Care Team Providers Care Wrecking Supervisor Name Role Phone Agustin Flor MD Primary Care Provider [phone] Annie Simpson MD Unavailable [phone] Encounter Details Date Type Department Care Team (Late st Contact Info) Description 09/27/2024 Orders Only [facility] Health Information Management [address] [place] [id number] Scanning, Provider Social History Tobacco Use Types Packs/Day Years Used Date Smoking Tobacco: Former Cigarettes 1.5 35 S tarted: 1973 Smokeless Tobacco: Never Comments:Quit smoking in ; AUDIT-C Answer Date Recorded Q1: How often [...] on file Legal 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 Gender Identity Not on file Sexual Orientation Not on file documented as of this encounter Plan of Treatment Not on file documented as of this encounter Procedures Procedure Name Priority Date/Time Associated Diagnosis Comments SCAN - RADIOLOGY/IMAGING 09/27/2024 documented in this encounter Results * SCAN - RADIOLOGY/IMAGING (09/27/2024) Anatomical Region Laterality Modality Other us Provider Scanning Final Result documented in this encounter Visit Diagnoses Not on filedocumented in this encounter Care Teams Wrecking Supervisor Relationship Specialty Start Date End Date Agustin Flor MD PCP - General Internal Medicine 06/28/22 Annie Simpson MD [address] [place] [address] Consulting Physician Cardiology 05/30/24 documented as of this encounter
--- OUTSIDE RECORDS SUMMARY | 2025-01-15 08:10 | XMS_ITS | Clinical Summary ---
Author Organization [facility] Address [address] [place] [address] Phone Care Team Providers [facility] Representative Name Role Phone Agustin Flor MD Primary Care Provider [phone] Allergies Active Allergy Reactions Criticality Noted Date [...] Screening 2003 Immunochemical Fecal Occult Blood 2003 Medicare Initial AWV [id number] 04/28/2023 Influenza Immunization (#1) 11/26/202412/27, 01/30/2021, 01/25/2021, Additional history exists SARS-COV-2 Immunization ( season) 2024 01/21/2022, 01/25/2021, 12/28/2020, Additional history exists Respiratory Syncytial Virus (RSV) [...] CDT) hepatitis C antibody 0.09 <1 S/CO [facility] ARCH [id number] B 07/13/2022 9:22 PM CDT [facility] Comment: Signal/Cutoff ratio < 0.79 is Nondetected Signal/Cutoff ratio 0.80-0.99 is Grayzone Signal/Cutoff ratio > 0.99 is Detected Supplemental assays are recommended if signal/cutoff ratio is >/=1.00. Signal/cutoff ratio result >/= 5.00 is 97% predictive of positivity for recombinant immunoblot assay (RIBA) and will be reported to the [place] Department of Public Health as required. Blood Venipuncture / Unknown 07/13/2022 1:29 PM CDT 07/13/2022 1:41 PM CDT Hans Escobar MD CHEMISTRY ORDERABLES Fin al Result [facility] [address] [place] [address], from Last 3 Months or Most Recently Relevant to Health Maintenance Insurance MEDICARE C [employer] MEDICAID [place] Care Teams Medical Center Representative Relationship Specialty Start Date End Date Agustin Flor MD PCP - General Internal Medicine 4/18/23
--- OUTSIDE RECORDS SUMMARY | 2025-01-15 08:10 | XMS_ITS | Clinical Summary ---
Author Organization [facility] Address [address] [place] [address] Care Team Providers Care Heavy Equipment Rental Manager Name Role Phone Agustin Flor MD Primary Care Provider [phone] Annie Simpson MD Unavailable [phone] Allergies Active Allergy Reactions Criticality Noted Date [...] mouth nightly 3 Active FreeStyle Ron 3 [place] misc 2 (two) times a day 4 [...] exertion. Assessment & Plan (02/22/2024 9:06 AM BINGO CLERK): She has followed with cardiology and has [...] care Assessment & Plan (02/22/2024 9:05 AM BINGO CLERK): Continue Trelegy Ellipta 100 daily Albuterol as [...] 02/21 Assessment & Plan (02/22/2024 9:06 AM BINGO CLERK): Last CT chest in November of 2023 [...] pulmonary disease 01/21/2017 Cirrhosis of liver 04/01/2016 Surgical History Surgery Date Site/Laterality Comments PORT PLACEMENT CHEST >5 YEARS 07/15/2022 N/A removed 03/2024 CARDIAC STENT PLACEMENT OTHER SURGICAL HISTORY 03/28/2023 - 03/27/2024 LOOP recorder placement HYSTERECTOMY EYE SURGERY Bilateral cataracts CARDIAC CATHETERIZATION 05/29/2024 N/A Procedure: ATRIAL SEPTAL DEFECT (ASD), PATENT FORAMEN OVALE (PFO), FENESTRATION CLOSURE [id number]; Surgeon: Gallo Geller MD; 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 STRATEGIC ACCOUNT MANAGER; Service: Cardiovascular; Laterality: N/A; Medical devices from this surgery are in the Medical Devices section. Medical History Medical History Date Comments Cancer (HCC) non hodgkins lym phoma COPD (chronic obstructive pu lmonary disease) Diabetes mellitus GERD (gastroesophageal reflux disease) HL (hearing loss) Stroke (HCC) Hypertension Neuropathy PFO (patent foramen ovale) 02/22/2024 Cigarette nicotine dependenc e in remission 02/22/2024 CAD (coronary artery disease) Cardiac septal defect Mild cardiomegaly Aortic regurgitation Type 2 diabetes mellitus Cirrhosis of liver (HCC) Non-Hodgkin lymphoma (HCC) [...] on file Legal Sex Female 9:14 PM BINGO CLERK Gender Identity Not on file Sexual Orientation Not on file Obstetrics History Last Filed Vital Signs Vital Sign Reading Time Taken Comments Blood Pressure 119/73 08/22/2024 11:31 AM CDT Pulse 77 08/22/2024 11:31 AM CDT Temperature 36.4 C (97.6 F) 08/22/2024 11:31 AM CDT Respiratory Rate 18 08/22/2024 11:3 1 AM CDT Oxygen Saturation 96% 08/22/2024 11: 31 AM CDT Inhaled Oxygen Concentration - - Weight 57.6 kg (126 lb 14.4 oz) 025 11:31 AM CDT Height 162.6 cm (5' 4) 08/22/2024 11:3 1 AM CDT Body Mass Index 21.78 08/22/2024 11:31 AM CDT Plan of Treatment Health Maintenance [...] 09/26, 07/23/2022, Additional history exists Covid-19 Vaccine (2024-2 6 season) 2024 02/09/2023, 01/21/2022, 01/21/2022, Additional history exists Influenza Vaccine (#1) 2024 , 01/21/2022, 01/30/2021, Additional history exists Fall Risk Assessment 05/29/2025 05/29/2024 eGFR 05/30/2025 05/30/2024 Pneumococcal vaccine 65+ Completed 01/21/2022, 03/2014 Medical Devices Implanted Type Area Wares Sorter Device Identifier Shelf Expiration Date Model / Serial / Lot [employer] Occluder Amplatzer Talisman Pfo 25-18mm [id number] - [id number] Implanted:Qty: 1 on 05/29/2024 by Gallo Geller MD at [facility] Septal Defect Closure Device [employer] 03/27/2025 [id number] / / [employer] System Closure Repair Femoral Artery Suture Mediated Perclose Prostyle 10762-29 - [id number] Implanted:Qty: 1 on 05/29/2024 by Gallo Geller MD at [facility] [employer] 02/24/2026 91756-12 / / [id number] Procedures Procedure Name Priority Date/Time Associated Diagnosis Comments EGFR Routine 05/30/2024 4:01 AM BINGO CLERK HEMOGLOBIN A1C Routine 04/12/2018 5:45 AM BINGO CLERK LIPID PANEL Routine 04/12/2018 5:45 AM BINGO CLERK from Last 3 Months or Most Recently Relevant to Health Maintenance Results * eGFR (05/30/2024 4:01 AM BINGO CLERK) eGFR 61 >=60 mL/min/1. 73 m2 Comment: [...] last reviewed 2021. Blood 05/30/2024 4:01 AM BINGO CLERK 05/30/2024 4:33 AM BINGO CLERK us Gallo Geller MD LAB BLOOD ORDERABLES Final Resu lt [id number] [id number] Department [place] [address] * (ABNORMAL) Hemoglobin A1c (04/12/2018 5:45 AM BINGO CLERK) Hemoglobin A1c % 5.9(H) 4.0 - 5.6 % 04/12/2018 6:40 AM BINGO CLERK [facility] HISTORICAL RESULTS Comment: ADA 2016 GUIDELINES: Initial Diagnostic Criteria HbA1c Result: Interpretation: <5.7% Normal 5.7-6.4% At risk for diabetes mellitus >=6.5% Consistent with diabetes mellitus Diabetes monitoring Target value (ADA Recommended) <7% 04/12/2018 5:45 AM BINGO CLERK 04/12/2018 6:02 AM BINGO CLERK Narrative [employer] HISTORICAL RESULTS - 04/12/2018 6:40 AM BINGO CLERK Comment In AM Guicho Nova MD LAB BLOOD ORDERABLES Final Resul t [employer] HISTORICAL RESULTS * Lipid panel (04/12/2018 5:45 AM BINGO CLERK) Triglycerides 124 0 - 149 mg/dL 04/12/2018 6:42 AM [facility] [employer] HISTORICAL RESULTS Comment: National Lipid Association/NCEP Guidelines: Normal < 150 mg/dL Borderline high 150-199 mg/dL High 200-499 mg/dL Very High >=500 mg/dL Cholesterol 118 0 - 199 mg/dL 04/12/2018 6:42 AM [facility] [employer] HISTORICAL RESULTS Comment: National Lipid Association/NCEP Guidelines: Desirable < 200 mg/dL Borderline high: 200-239 mg/dL High Risk: >=240 mg/dL HDL Cholesterol 52 mg/dL 9 6:42 AM [facility] [employer] HISTORICAL RESULTS Comment: Reference Ranges: Males: >=40 mg/dL Females: >=50 mg/dL LDL Cholesterol, Calc 41 0 - 129 mg/dL 04/12/2018 6:42 AM [facility] [employer] HISTORICAL RESULTS Comment: National Lipid Association/NCEP Guidelines: Optimal < 100 mg/dL Near Optimal 100-129 mg/dL Borderline high 130-159 mg/dL High >=160 mg/dL Cholesterol/HDL Ratio 2.3 04/12/2018 6:42 AM [facility] [employer] HISTORICAL RESULTS Comment: Optimal < 3.5:1 High > 5:1 04/12/2018 5:45 AM BINGO CLERK 04/12/2018 6:02 AM [facility] [employer] HISTORICAL RESULTS - 04/12/2018 6:42 AM BINGO CLERK Comment In AM Guicho Nova MD LAB BLOOD ORDERABLES Final Resul t [facility] [employer] HISTORICAL RESULTS from Last 3 Months or Most Recently Relevant to Health Maintenance Insurance IDPA [facility] MEDICARE [facility] MEDICARE Address: [address] [address] [place] [address] [facility] MEDICARE ADV[facility] MEDICARE Address: [address] [address] [place] [address] IDPA Advance Directives For more information, please contact: [phone] * Full Code (Latest Code Status on File) Date Activated Date Inactivated Comments 05/29/2024 10:10 AM 05/30/2024 3:37 PM Care Teams Heavy Equipment Rental Manager Relationship Specialty Start Date End Date Agustin Flor MD PCP - General Internal Medicine 06/28/22 Annie Simpson MD [address] [place] [address] Consulting Physician Cardiology 05/30/24
--- OUTSIDE RECORDS SUMMARY | 2025-01-15 08:10 | XMS_ITS | Clinical Summary ---
Author Organization [facility] Address [address] [place] [address] Care Team Providers Care Campus President Name Role Phone Agustin Flor Primary Care Provider [phone] Allergies Active Allergy Reactions Criticality Noted Date [...] 8:00 PM CDT Height 163.8 cm (5' 4.5) 10/30/2022 8:00 PM CDT Body Mass Index [...] 8:27 PM 11/12/2022 4:08 PM Care Teams Campus President Relationship Specialty Start Date End Date Agustin Flor [address] [id number] PCP - General 10/28/22
== END 2025-01-15 08:01 | disposition home or self-care (01) ==
LOC: ANHFOHIMG 08:05
PROVIDERS: PCP Internal Medicine; Visit Provider Internal Medicine
DX: Z12.31 Encounter for screening mammogram for malignant neoplasm of breast (principal)
CPT/HCPCS: 77063; 77067

== ENCOUNTER 2025-02-27 11:36 | Outpatient (CLI) | payer MEDICARE, MEDICAID, SELFPAY ==
--- OUTSIDE RECORDS SUMMARY | 2022-10-27 11:18 | XMS_ITS | Encounter Summary ---
Author Organization [facility] Address [address] [place] [address] Care Team Providers Care Aquatic Habitat Biologist Name Role Phone Agustin Flor MD Primary Care Provider [phone] Encounter Details Date Type Department Care Team (Latest Contact Info) Description 10/27/2022 12:18 PM CDT Hospital Encounter [address] [address] Claudia Plascencia MD [address] [place] [address] [place] [phone] [employer] Social History Tobacco Use Types Packs/Day Years Used Date Smoking Tobacco: Former Cigarettes 1.5 35 0 08/14/1972 - 08/15/2007 Smokeless Tobacco: Never Alcohol Use Standard Drinks/Week Comments Never 0 (1 standard drink = 0.6 oz pur e alcohol) AUDIT-C Answer Date Recorded Q1: How often do you have a drink containing alcohol? Never 11/20/2022 Q2: How many drinks containi ng alcohol do you have on a typical day when you are drinking? Patient does not drink Q3: How often do you have si x or more drinks on one occasion? Never 11/20/2022 Overall Financial Resource Strain (CARDIA) Answe r Date Recorded How hard is it for you to pa y for the very basics like food, housing, medical care, and heating? Not very hard 11/20/2022 [employer] [place] [employer] - Occupational Stress Questionnaire Answer Date Recorded Do you feel stress - tense, restless, nervous, or anxious, or unable to sleep at night because your mind is troubled all the time - these days? Not at all 11/20/2022 Hunger Vital Sign Answer Date Recorded Within the past 12 months, y ou worried that your food would run out before you got the money to buy more. Never true 11/21/19 23 Within the past 12 months, t he food you bought just didn't last and you didn't have money to get more. Never true 11/20/2022 PRAPARE - Transportation Answer Date Re corded In the past 12 months, has l ack of transportation kept you from medical appointments or from getting medications? No 10/27 In the past 12 months, has l ack of transportation kept you from meetings, work, or from getting things needed for daily living? No 11/20/2022 Housing Stability Vital Sign Answer Jono e Recorded In the last 12 months, was t here a time when you were not able to pay the mortgage or rent on time? No 11/20/2022 In the last 12 months, how many places have you lived? 1 11/20/2022 In the last 12 months, was t here a time when you did not have a steady place to sleep or slept in a retirement (including now)? No 11/20/2022 Comments No Sex and Gender Information Value Date Recorded Sex Assigned at Not on file Legal Sex Female 2:13 PM CDT Gender Identity Female 08/19/2023 1:35 PM CDT Sexual Orientation Not on file documented as of this encounter Functional Status * Functional and Cognitive Status Question Answer Date of Assessment Author Is person deaf or have serious hearing difficulty? Yes 04/26/2024 8:37 AM Quin Turcios RN Is person blind or have serious difficulty seeing? No 04/26/2024 8:37 AM Quin Turcios RN Does person have serious difficulty walking/climbing stairs? Yes 04/26/2024 8:37 AM Gerald Turcios RN Does person have difficulty dressing/bathing? Yes 04/26/2024 8:37 AM Gerald Turcios RN Does person have difficulty doing errands alone? Yes 04/26/2024 8:37 AM MAILING SPECIALIST Esteban Lowe RN Does person have difficulty concentrating/remembering/mary ing decisions? No 04/26/2024 8:37 AM MAILING SPECIALIST Gerald Lowe RN * Question Answer Date of Assessment Author Q1: How often do you have a drink containing alcohol? Never 11/20/2022 8:40 AM Amber Eastman RN Q2: How many drinks containing alcohol do you have on a typical day when you are drinking? Patient does not drink 11/20/2022 8:40 AM Amber Eastman RN Q3: How often do you have six or more drinks on one occasion? Never 11/20/2022 8:40 AM Amber Eastman RN * AUDIT-C Score Answer Date of Assessment Author 0 11/20/2022 8:40 AM Awa Eastman RN * Is person deaf or have serious hearing difficulty? Answer Date of Assessment Author Yes 10/27/2022 6:13 PM Enrrique Danielle RN * Is person blind or have serious difficulty seeing? Answer Date of Assessment Author No 10/27/2022 6:13 PM Enrrique Danielle RN * Does person have serious difficulty walking/climbing stairs? Answer Date of Assessment Author Yes 10/27/2022 6:13 PM Enrrique Danielle RN * Does person have difficulty dressing/bathing? Answer Date of Assessment Author Yes 10/27/2022 6:13 PM Enrrique Danielle RN * Does person have difficulty doing errands alone? Answer Date of Assessment Author Yes 10/27/2022 6:13 PM Enrrique Danielle RN documented as of this encounter Mental Status * Does person have difficulty concentrating/remembering/making decisions? Answer Entry Date Author Yes 10/27/2022 6:13 PM Enrrique Danielle RN documented in this encounter Plan of Treatment Upcoming Encounters Date Type Department Care Team (Late st Contact Info) Description 05/31/2025 10:40 AM MAILING SPECIALIST Appointment [facility] [address] [place] [address] Shreyas Phillips MD [address] [place] [address] 05/31/2025 12:20 PM MAILING SPECIALIST Appointment [facility] [address] [place] [address] Shreyas Phillips MD [facility] [place] [address] documented as of this encounter Visit Diagnoses Not on filedocumented in this encounter Care Teams Aquatic Habitat Biologist Relationship Specialty Start Date End Date Agustin Flro MD [address] [place] [address] PCP - General General Medicine 06/28/22 documented as of this encounter
--- NOTE | 2025-02-27 | ECG_ITS ---
Test Date: 2025-02-27 12:07:14 Measurements Intervals [place] Rate: 59 P: 72 DE: 184 QRS: -22 QRSD: 98 T: 52 QT: 438 QTc: 436 Interpretive Statements SINUS BRADYCARDIA CANNOT R/O SEPTAL INFARCT, AGE INDETERMINATE CONSIDER INFERIOR INFARCT, AGE INDETERMINATE ABNORMAL ECG Compared to ECG 09/25/2024 22:37:46 HEART RATE HAS DECREASED Electronically Signed On 02-27-2025 12:53:11 PATIENT SERVICES MANAGER by José Miguel Jose D.O.
--- OUTSIDE RECORDS SUMMARY | 2025-02-27 13:11 | XMS_ITS | Encounter Summary ---
Author Organization [facility] Address [address] [place] [address] Care Team Providers Care Checker In Name Role Phone Agustin Flor MD Primary Care Provider [phone] Mabel Del Real RN Unavailable Unavailable Shreyas Phillips MD Unavailable Bebe Hernandez PA-C Unavailable [phone] Nanda Rausch RN Unavailable Unavailable Shreyas Phillips MD Unavailable Encounter Details Date Type Department Care Team (Late Contact Info) Description 06/10/2022 Lab Requisition [facility] Care Pathology Lab [address] [place] [address] Chris Julian MD [address] [address] Illness, unspecified Social History Tobacco [...] Upcoming Encounters Date Type Department Care Team ([facility] Contact Info) Description 05/31/2025 10:40 AM LENS CLEANER Appointment [facility] [address] [place] [id number] Shreyas Phillips MD [address] [place] [address] 05/31/2025 12:20 PM LENS CLEANER Appointment [facility] [address] [place] [address] Shreyas Phillips MD [address] [place] [address] documented as of this encounter Procedures Procedure Name Priority Date/Time Associated Diagnosis Comments PATHOLOGY TISSUE Routine 06/08/2022 11:1 9 AM CDT Illness, unspecified documented in this encounter Results * PATHOLOGY TISSUE (06/08/2022 11:19 AM CDT) Case Report Surgical Pathology Report Case: [id number] Authorizing Provider: Chris Julian MD Collected: 06/08/2022 11:19 AM Ordering Location: [facility] Pathology Lab Received: 06/10/2022 11:21 AM Pathologist: Reshma Singh MD Specimen: Lymph Node Biopsy, CT Biopsy Left Lymph Node 06/11/2022 10:47 AM CDT [facility] PATHOLOGY [facility] Final Diagnosis Lymph node, left paracolic, needle core biopsy: - Limited specimen with involvement by a IE08-odhypisd mature B-cell lymphoma - See description and comment 06/11/2022 10:47 AM CDT [facility] PATHOLOGY [facility] at 1045 CDT Microscopic Description and Comment Sections show [...] Ki-67 is estimated at 50%. Flow cytometry ([facility], [address] [place], [place] [address]) is reported to show an atypical OH88-lilrubkd population that lacks surface immunoglobulin light chain expression. 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 Given the limited nature of the specimen, the differential diagnosis includes diffuse large B-cell lymphoma, a high grade B-cell lymphoma, and follicular lymphoma. FISH testing for abnormalities of MYC, BCL-2, and BCL-6 is recommended as a next step [facility] There is insufficient residual tissue present [...] correlation is advised. 06/11/2022 10:[address] [facility] Clinical History Retroperitoneal lymphadenopathy. 06/11/2022 10:[address] [facility] Materials Received Received for initial diagnosis are two slides and one block (A1) labeled [id number] along with a copy of the outside pathology report. The materials originate from [facility]. All original materials are returned to the referring institution, along with a copy of our final report. 06/11/2022 10:[address] [facility] Disclaimer The performance characteristics of all immunohistochemical and indirect immunofluorescence stains (if any) cited in this report were determined by the Histopathology Laboratory of [facility]. Some of these tests were developed by [...] attending (teaching) pathologist. 06/11/2022 10:47 AM CDT [facility] Embedded Images 06/11/2022 10:47 AM CDT [facility] Pathology/Cytolo gy BIOPSY OF LYMPH NODE / Unknown 06/08/2022 11:19 AM CDT 06/10/2022 11:21 AM CDT Chris Julian MD LAB - PATHOLOGY/CYTOLOGY ORDERAB LES Final Result [facility]Y [facility] [address] [facility] [place] [address], [facility] [phone] documented in this encounter Visit Diagnoses Diagnosis Illness, unspecified documented in this encounter Care Teams Checker In Relationship Specialty Start Date End Date Agustin Flor MD [address] [place] [address] PCP - General General Medicine 06/28/22 Shreyas Phillips MD [address] [place] [address] PCP - Attributed-[facility] ELIZA CUEVA P4P 07/26/24 09/12/24 Mabel Del Real, RN Registered Nurse Orthopedic Surgery 02/28/23 03/27/24 Shreyas Phillips MD [address] [place] [id number] Physician Hematology and Oncology 03/23/23 Bebe Hernandez, PA-C [address] [place] [address] Physician Wafer Slicer Physician Wafer Slicer 03/23/23 Nanda Rausch, RN Registered Nurse 03/23/23 documented as of this encounter
--- OUTSIDE RECORDS SUMMARY | 2025-02-27 13:11 | XMS_ITS | Encounter Summary ---
Author Organization [facility] Address [address] [place] [address] Care Team Providers Care Back Up Machine Operator Name Role Phone Agustin Flor MD Primary Care Provider [phone] Annie Simpson MD Unavailable [phone] Encounter Details Date Type Department Care Team (Late st Contact Info) Description 09/27/2024 Orders Only [facility] Health Information Management [address] [place] [id number] Scanning, Provider Social History Tobacco Use Types [...] on file Legal Sex Female 9:14 PM REGISTERED NURSE OBSTETRICS Gender Identity Not on file Sexual Orientation [...] on filedocumented in this encounter Care Teams Back Up Machine Operator Relationship Specialty Start Date End Date Agustin Flor MD PCP - General Internal Medicine 06/28/22 Annie Simpson MD [address] [place] [address] Consulting Physician Cardiology 05/30/24 documented as of this encounter
--- OUTSIDE RECORDS SUMMARY | 2025-02-27 13:11 | XMS_ITS ---
Author Organization [facility] Address [address] [facility] [place] [address] Care Team Providers Care Pipelines Manager Name Role Phone Agustin Flor MD Primary Care Provider [phone] Shreyas Phillips MD Unavailable Bebe HernandezC Unavailable [phone] Nanda Rausch RN Unavailable Unavailable Active Problems [...] (Truxima) RAPID infusionriTUXimab- abbs (Truxima) STANDARD infusionvinCRIStin c-FFZQevqnukn-haoc oside CIVI Therapy Complete Shreyas Phillips MD 6 of 6 cycles started THERAPY PLAN Plan Name Start Date Discontinue Date Treatment Medications Discontinue Reason Plan Provider Hematology plan 12/17/2022 04/26/2024 No medicatio ns scheduled. Therapy Complete Bebe Hernandez PA-C ONC treatment plan 12/01/2022 12/03/2022 No medications scheduled. Therapy Complete Vicky Mendiola APRN-CONSUMER LOAN PROCESSOR Lifetime Dose Tracking * Chemical Lifetime Dose Automatic Entry Manual Entr y Doxorubicin 243.533 mg/m2 (418.8 mg) 243.533 mg/m2 (4 18.8 mg) 0 mg/m2 (0 mg) CTDI(vol) 321 mGy 321 mGy 0 mGy Dose Length Product 2,855.5 mGy-cm 2,855.5 mGy-cm 0 mG y-cm Resolved Problems Problem Noted Date Diagnosed Date Resolved Date Altered mental status, unspe cified altered mental status type 11/18/2022 11/21/2022 Hodgkin lymphoma 07/15/2022 07/16/2022 History of CAD (coronary artery disease) 07/13/2022 09/03/2022 Chronic obstructive pulmonary disease 11/09/2019 09/03/2022
--- OUTSIDE RECORDS SUMMARY | 2025-02-27 13:11 | XMS_ITS | Data Portability ---
Author Organization [place] [facility], Main Office Address [address] [place] [address] Care Team Providers Care Sales Appointment Coordinator Name Role Phone SHIELA FLOR Primary Care Provider SHIELA FLOR Referring Provider Assessment Encounter Date Assessment Date Assessment LastModified by Organization Details LastModified Time 02/01/2023 02/01/2023 Podiatry She can see Ortho as well Continue with her medicines for her hyperlipidemia diabetes and hypertension Follow-up with me in a month [email or web address] Not available 02/02/2023 21:20:40 03/07/2023 03/07/2023 Given her previous cardiac history will get her set up with Cardiology for surgical clearance blood pressure appears to be well-controlled at 110/62 blood work will also be ascertained for biochemical management of disease processes of medications follow-up with me in about 3 months Not available 03/28/2023 18:10:16 07/30/2024 07/30/2024 64-year-old [...] They are in agreement with this plan. Not available 07/30/2024 11:32:53 09/10/2024 09/10/2024 HPI: [...] treatment plan [email or web address] Not available 09/10/2024 11:47:49 10/30/2024 10/30/2024 64-year-old female, wheelchair bound, presents today with her sister for follow-up of right knee pain. This is a result of injury when transferring from bed to wheelchair, and she twisted her knee. We did a cortisone injection and physical therapy, which resolved her pain. Today, she reports that she started to have pain again with transfers about 1 week ago. She is requesting another cortisone injection. Physical exam: Patient in wheelchair. 1+ effusion lateral side of knee. No tenderness with palpitation around the knee. Range of motion 0 to 120. No pain in terminal flexion. Negative Christel's. Stable ligaments. Sensation intact. We discussed risks and benefits of a cortisone injection. She elected to proceed with this today. Injection given without issue. We discussed potential effects cortisone may have on blood sugars. Her and her sister state understanding. She can return as needed for pain. They are in agreement with this plan. Not available 10/30/2024 14:18:38 Plan of Treatment Reminders Order Date Submit Date Provider Last Modified By Organization Details Last Modified Time Details Appointments None recorded. Lab CBC w/ auto diff 2022 023 [facility] ([facility]), [address] [place], [address], 17:56:00 CMP, serum or plasma 2022 023 [facility]), [address] [place], [address], 3 19:22:35 lipid panel, serum 2022 023 [facility]), [address] [place], [address], 3 19:22:40 glycohemog lobin, total, blood 2022 023 [facility] ([facility]), [address] [place], [address], 3 19:20:54 Referral physical therapist referral - Please schedule apt for R knee. Thanks 2024 025 [facility], [address] [place], [address], 5 15:32:[address] referral 2022 023 [email or web address] Annie Simpson MD, [address] [facility], [facility] [address], [place], [address], 4 19:10:44 Procedures injection/ aspiration joint/burs a (PROC) 2024 025 [email or web address] In-Office Order, Internal Use Only DO Not Attach Compendium DO Not Attach Compendium, Do Not Delete/merge, [id number] 13:58:54 injection/ aspiration joint/burs a (PROC) 2024 025 [email or web address] 1 In-Office Order, Internal Use Only DO Not Attach Compendium DO Not Attach Compendium, Do Not Delete/merge, 11:11:06 Surgeries None recorded. Imaging None recorded. Medication Orders bupivacain e HCl 0.5 % (5 mg/mL) injection solution 2024 025 [id number], [address] [facility], [place], [place], [id number], 14:19:22 Kenalog 10 mg/mL suspension for injection 2024 025 [facility] #[id number], [address], [place], [place], [id number], 5 14:19:22 bupivacain e HCl 0.5 % (5 mg/mL) injection solution 2024 025 [facility] #[id number], [address] [place], [place], [id number], 5 11:52:41 Kenalog 10 mg/mL suspension for injection 2024 025 [facility] #[id number], [address] [place], [place], [id number], 11:52:41 Patient TargetsNo targets recorded. Patient InstructionsNo instructions recorded. Reason for Referral Lacer And Tier Referral for Pr e-surgery evaluation Referring Physician: [...] 5.0 x10'3 /uL 4.2-10 .8 Not Available [facility] (Lab) [address] [place], [address], 03/07/2023 17:56:00 03/07/2003/07/2023 CBC/C OMPLE TE BLD COUNT W/DIF F red blood cells 4.22 x10'6 /uL 3.80-5 .20 Not Available [facility] (Lab) [address] [place], [address], 03/07/2023 17:56:00 03/07/20 23 03/07/2023 CBC/C OMPLE TE BLD COUNT W/DIF F hemoglobin 12.6 g/dL 12.0-1 5.6 Not Available [facility] (Lab) [address] [place], [address], 03/07/2023 17:56:00 03/07/2003/07/2023 CBC/C OMPLE TE BLD COUNT W/DIF F hematocrit 40.4 % 35.7-4 5.7 Not Available [facility] (Lab) [address] [place], [address], 03/07/2023 17:56:00 03/07/2003/07/2023 CBC/C OMPLE TE BLD COUNT W/DIF F mean red cell volume 95.7 fL 82.0-9 9.0 Not Available [facility] (Lab) [address] [place], [address], 03/07/2023 17:56:00 03/07/20 23 03/07/2023 CBC/C OMPLE TE BLD COUNT W/DIF F mean red cell hemoglobin 29.9 pg 27.0-3 3.0 Not Available [facility] (Lab) [address] [place], [address], 03/07/2023 17:56:00 03/07/20 23 03/07/2023 CBC/C OMPLE TE BLD COUNT W/DIF F mean RBC HGB concentratio n 31.2 g/dL 31.0-3 6.0 Not Available [facility] (Lab) [address] [place], [address], 03/07/2023 17:56:00 03/07/20 23 03/07/2023 CBC/C OMPLE TE BLD COUNT W/DIF F red cell distribution width 14.4 % 11.8-1 5.5 Not Available [facility] (Lab) [address] [place], [address], 03/07/2023 17:56:00 03/07/20 23 03/07/2023 CBC/C OMPLE TE BLD COUNT W/DIF F platelets 204 x10'3 /uL 150-40 0 Not Available [facility] (Lab) [address] [place], [address], 03/07/2023 17:56:00 03/07/20 23 03/07/2023 CBC/C OMPLE TE BLD COUNT W/DIF F mean platelet volume 9.9 fL 9.0-12 .4 Not Available [facility] (Lab) [address] [place], [address], 03/07/2023 17:56:00 03/07/20 23 03/07/2023 CBC/C OMPLE TE BLD COUNT W/DIF F neutrophils 71.4 % 39.0-7 2.0 Not Available [facility] (Lab) [address] [place], [address], 03/07/2023 17:56:00 03/07/20 23 03/07/2023 CBC/C OMPLE TE BLD COUNT W/DIF F lymphocytes 14.7 % 16.0-4 7.0 low Not Available [facility] (Lab) [address] [place], [address], 03/07/2023 17:56:00 03/07/20 23 03/07/2023 CBC/C OMPLE TE BLD COUNT W/DIF F monocytes 10.7 % 5.0-12 .0 Not Available [facility] (Lab) [address] [place], [address], 03/07/2023 17:56:00 03/07/20 23 03/07/2023 CBC/C OMPLE TE BLD COUNT W/DIF F eosinophils 2.0 % 1.0-7. 0 Not Available [facility] (Lab) [address] [place], [address], 03/07/2023 17:56:00 03/07/20 23 03/07/2023 CBC/C OMPLE TE BLD COUNT W/DIF F basophils 0.8 % 0.0-2. 0 Not Available [facility] (Lab) [address] [place], [address], 03/07/2023 17:56:00 03/07/20 23 03/07/2023 CBC/C OMPLE TE BLD COUNT W/DIF F immature granulocytes 0.4 % 0.00-0 .50 Not Available [facility] (Lab) [address] [place], [address], 03/07/2023 17:56:00 03/07/20 23 03/07/2023 CBC/C OMPLE TE BLD COUNT W/DIF F neutrophils, absolute count 3.54 x10'3 /uL 1.5-8. 0 Not Available [facility] (Lab) [address] [place], [address], 03/07/2023 17:56:00 03/07/20 23 03/07/2023 CBC/C OMPLE TE BLD COUNT W/DIF F lymphocytes, absolute count 0.73 x10'3 /uL 1.07-3 .43 low Not Available [facility] (Lab) [address] [place], [address], 03/07/2023 17:56:00 03/07/20 23 03/07/2023 CBC/C OMPLE TE BLD COUNT W/DIF F monocytes, absolute count 0.53 x10'3 /uL 0.29-0 .99 Not Available [facility] (Lab) [address] [place], [address], 03/07/2023 17:56:00 03/07/20 23 03/07/2023 CBC/C OMPLE TE BLD COUNT W/DIF F eosinophils, absolute count 0.10 x10'3 /uL 0.02-0 .53 Not Available [facility] (Lab) [address] [place], [address], 03/07/2023 17:56:00 03/07/20 23 03/07/2023 CBC/C OMPLE TE BLD COUNT W/DIF F basophils, absolute count 0.04 x10'3 /uL 0.01-0 .08 Not Available [facility] (Lab) [address] [place], [address], 03/07/2023 17:56:00 03/07/20 23 03/07/2023 CBC/C OMPLE TE BLD COUNT W/DIF F immature granulocytes ,absolute 0.02 x10'3 /uL 0.00-0 .05 Not Available [facility] (Lab) [address] [place], [address], 03/07/2023 17:56:00 03/07/20 23 03/07/2023 CBC/C OMPLE TE BLD COUNT W/DIF F nucleated red blood cells 0.0 % -0 Not Available [facility] (Lab) [address] [place], [address], 03/07/2023 17:56:00 03/07/20 23 03/07/2023 CBC/C OMPLE TE BLD COUNT W/DIF F NRBC# 0.00 x10'3 /uL Not Available [facility] (Lab) [address] [place], [address], 03/07/2023 17:56:00 03/07/20 23 03/07/2023 HEMOG LOBIN A1C HA1C 6.1 % 4.0-6. 0 high Diabe ash Scree luis fernando Crite jacqueline: <5.7% Consi stent with absen ce of diabe ash 5.7-6 .4% Consi stent with incre ased risk for diabe ash (pred iabet es) >OR=6 .5% Consi stent with diabe ash REFER ENCE: Diabe ash Care 2016, 39(Meija ppl.1 ):s13 -s22 Not Available [facility] (Lab) [address] [place], [address], 03/07/2023 19:20:54 03/07/20 23 03/07/2023 COMPR EHENS ROBEL METAB OLIC PANEL sodium 141 mmol/ L 137-14 5 Not Available [facility] (Lab) [address] [place], [address], 03/07/2023 19:22:35 03/07/20 23 03/07/2023 COMPR EHENS ROBEL METAB OLIC PANEL potassium 3.8 mmol/ L 3.5-5. 1 Not Available [facility] (Lab) [address] [place], [address], 03/07/2023 19:22:35 03/07/20 23 03/07/2023 COMPR EHENS ROBEL METAB OLIC PANEL chloride 103 mmol/ L 98-107 Not Available [facility] (Lab) [address] [place], [address], 03/07/2023 19:22:35 03/07/20 23 03/07/2023 COMPR EHENS ROBEL METAB OLIC PANEL carbon dioxide 30 mmol/ L 22-30 Not Available [facility] (Lab) [address] [place], [address], 03/07/2023 19:22:35 03/07/20 23 03/07/2023 COMPR EHENS ROBEL METAB OLIC PANEL anion gap 11.8 mmol/ L 14-22 low Not Available [facility] (Lab) [address] [place], [address], 03/07/2023 19:22:35 03/07/20 23 03/07/2023 COMPR EHENS ROBEL METAB OLIC PANEL glucose 84 mg/dL 70-99 Not Available [facility] (Lab) [address] [place], [address], 03/07/2023 19:22:35 03/07/20 23 03/07/2023 COMPR EHENS ROBEL METAB OLIC PANEL BUN 25 mg/dL 8-19 high Not Available [facility] (Lab) [address] [place], [address], 03/07/2023 19:22:35 03/07/20 23 03/07/2023 COMPR EHENS ROBEL METAB OLIC PANEL creatinine 0.77 mg/dL 0.66-1 .25 Not Available [facility] (Lab) [address] [place], [address], 03/07/2023 19:22:35 03/07/20 23 03/07/2023 COMPR EHENS ROEBL METAB OLIC PANEL GFR >60 Refer ence Range : [place] ge GFR Healt hy Adult : >60 [...] calcu lator is avail able on the [facility] websi te: [email or web address] :[email or web address] [email or web address] culat or Not Available [facility] (Lab) [address] [place], [address], 03/07/2023 19:22:35 03/07/20 23 03/07/2023 COMPR EHENS ROBEL METAB OLIC PANEL alkaline phosphatase 56 U/L 38-126 Not Available [facility] (Lab) [address] [place], [address], 03/07/2023 19:22:35 03/07/20 23 03/07/2023 COMPR EHENS ROBEL METAB OLIC PANEL alanine aminotransfe rase 27 U/L 0-35 Not Available [facility] (Lab) [address] [place], [address], 03/07/2023 19:22:35 03/07/20 23 03/07/2023 COMPR EHENS ROBEL METAB OLIC PANEL aspartate aminotransfe rase 25 U/L 15-37 Not Available [facility] (Lab) [address] [place], [address], 03/07/2023 19:22:35 03/07/20 23 03/07/2023 COMPR EHENS ROBEL METAB OLIC PANEL bilirubin, total 0.20 mg/dL 0.20-1 .30 Not Available [facility] (Lab) [address] [place], [address], 03/07/2023 19:22:35 03/07/20 23 03/07/2023 COMPR EHENS ROBEL METAB OLIC PANEL calcium 9.8 mg/dL 8.4-10 .2 Not Available [facility] (Lab) [address] [place], [address], 03/07/2023 19:22:35 03/07/20 23 03/07/2023 COMPR EHENS ROBEL METAB OLIC PANEL total protein 6.3 g/dL 6.3-8. 2 Not Available [facility] (Lab) [address] [place], [address], 03/07/2023 19:22:35 03/07/20 23 03/07/2023 COMPR EHENS ROBEL METAB OLIC PANEL albumin 4.1 g/dL 3.0-4. 4 Not Available [facility] (Lab) [address] [place], [address], 03/07/2023 19:22:35 03/07/20 23 03/07/2023 COMPR EHENS ROBEL METAB OLIC PANEL globulin 2.2 g/dL 2.6-4. 2 low Not Available [facility] (Lab) [address] [place], [address], 03/07/2023 19:22:35 03/07/20 23 03/07/2023 COMPR EHENS ROBEL METAB OLIC PANEL A/G ratio 1.9 ratio 1.0-2. 0 Not Available [facility] (Lab) [address] [place] [address], [address], 03/07/2023 19:22:35 03/07/20 23 03/07/2023 LIPID PANEL cholesterol 125 mg/dL 140-19 9 low NIH ITZEL NSUS RECOM MENDA TION FOR CEASAR STERO L: ADULT CHILD LOW RISK: <200 <170 BORDE RLINE : <200- 239 ----- HIGH RISK: >240 >200 Not Available [facility] (Lab) [address] [place] [address], [address], 03/07/2023 19:22:40 03/07/20 23 03/07/2023 LIPID PANEL triglyceride s 273 mg/dL 0-150 high NIH ITZEL NSUS REPOR T RECOM MENDA TION FOR TRIGL YCERI GIAN: ADULT CHILD LOW RISK: <150 ----- BODER LINE: 150-1 99 ----- HIGH RISK: >200 ----- Not Available [facility] (Lab) [address] [place] [address], [address], 03/07/2023 19:22:40 03/07/20 23 03/07/2023 LIPID PANEL HDL cholesterol 63 mg/dL 40- Not Available [facility] (Lab) [address] [place] [address], [address], 03/07/2023 19:22:40 03/07/20 23 03/07/2023 LIPID PANEL [...] LDL RESUL T WILL NOT BE REPOR RATHUR. Not Available [facility] (Lab) [address] [place], [address], 03/07/2023 19:22:40 Result Notes None recorded. Problems Name Problem SNOMED Code Status Onset Date Resolution Date Notes Provider Name and Address Organization Details Recorded Time Cirrhosis of liver 00580118 Active 2016 Not Available [facility] 4 12:02:15 Chronic obstructiv e pulmonary disease 67603072 Active 2016 Not Available [facility] 4 12:02:15 Former heavy tobacco smoker 7118651536874 00 Active 2016 Not Available [facility] 4 12:02:15 Closed fracture of fifth metatarsal bone 74717060 Active 2020 Not Available [facility] 4 12:02:15 Neuropathy due to diabetes mellitus 535711568 Active 2020 Not Available [facility] 4 12:02:15 Type 2 diabetes mellitus 65280665 Active 2020 Not Available [facility] 4 12:02:15 Hyperlipid emia 07830863 Active 2020 Not Available [facility] 4 12:02:15 Essential hypertensi on 06365785 Active 2020 Not Available [facility] 4 12:02:15 Mental disorder 40394467 Active 2020 Not Available [facility] 4 12:02:15 Cellulitis of foot 166115630 Active 2021 Not Available [facility] 4 12:02:15 Postoperat robel care Active 2021 Not Available [facility] 4 12:02:15 Low back pain 105169492 Active 2021 Not Available [facility] 4 12:02:15 Hyponatrem ia 37009976 Active 2021 Not Available [facility] 4 12:02:16 Otitis media 05804706 Active 2021 Not Available [facility] 4 12:02:15 COVID-19 175192582 Active 2021 Not Available [facility] 4 12:02:16 Cough 12031212 Active 2021 Not Available [facility] 4 12:02:15 Upper respirator y infection 03127292 Active 2021 Not Available [facility] 4 12:02:15 Acute urinary tract infection 835719604 Active 2021 Not Available [facility] 4 12:02:15 Type 2 diabetes mellitus without complicati on 991955124 Active 2021 Not Available [facility] 4 12:02:15 Urinary tract infectious disease 33770397 Active 2021 Not Available [facility] 4 12:02:15 Chest pain 21724683 Active 2022 Not Available [facility] 4 12:02:15 Computed tomography result abnormal 973113910 Active 2022 Not Available [facility] 4 12:02:15 CT of abdomen abnormal 2060416383887 9107 Active 2022 Not Available [facility] 4 12:02:15 Dysuria 69620911 Active 2022 Not Available [facility] 4 12:02:15 Flank pain 016448688 Active 2022 Not Available [facility] 4 12:02:15 Increased frequency of urination 317455428 Active 2022 Not Available [facility] 4 12:02:15 Urge incontinen ce of urine 22931859 Active 2022 Not Available [facility] 4 12:02:16 Dyspnea 746542667 Active 2022 Not Available [facility] 4 12:02:15 Nausea and vomiting 47600608 Active 2022 Not Available [facility] 4 12:02:15 Hydrourete r 69399724 Active 2022 Not Available [facility] 4 12:02:15 High grade B-cell lymphoma 474914098 Active 2022 Not Available [facility] 4 12:02:15 Uncontroll ed type 2 diabetes mellitus 597397567 Active 2022 Not Available [facility] 4 12:02:15 Pain of right knee joint 4137014996596 00 Active 2024 Paula Ruvalcaba, RMSusan null, [facility] [employer] [facility] 5 14:03:20 Osteoarthr itis of right knee joint 5553091184379 00 Active 2024 Rekha Nunez PA-C [address], [address], [place], [address] , [facility] [employer] [facility] 5 11:47:43 Notes:Medical History: Depre ssion Rhinitis [...] Covid 06/02/2020 Some problems listed in Document: #[id number] could not be added to this patient's chart. Please review this document and add these problems to the patient's chart manually as needed. Problem Notes None recorded. Procedures Surgical History Date Name Laterality Status Provider Name and Address Organization Details Recorded Time 10/31/19 25 Ortho - Cortisone Injection completed Dawna Molina NP [address], [address], [place], [address], [facility] [employer] [facility] 10/30/2024 14:18:49 07/31/19 25 Ortho - Cortisone Injection completed Dawna Molina NP [address], [address], [place], [address], [facility] [employer] [facility] 07/30/2024 11:15:39 04/17/19 22 Foot Surgery completed Not Available [facility] 05:55:53 Tonsillectomy completed Not Available [facility] 05/26/2022 05:55:53 [facility]ste[facility] completed [facility] 05/26/2022 05:55:53 Imaging Results None recorded. Procedure Notes None recorded. Medical Equipment None Reported. Allergies Allergen ID Allergen Name Allergen Category Reaction Reaction Severity Criticality Documentation Date Start Date Code Code System Note Provider Name and Address Organization Details Recorded Time 35352 hydrochlo rothiazid e medicatio n Not available Not available Not available 05/26/2022 5487 RxNorm Not Available [facility] 3 06:08:25 74249 clonazepa m medicatio n Not available Not available Not available 05/26/2022 2598 RxNorm uncon troll ed muscl e movem ent Not Available [facility] 3 06:08:25 87055 chlorthal idone medicatio n Not available Not available Not available 05/26/2022 2409 RxNorm Not Available [facility] 3 06:08:25 87149 aspirin medicatio n eye swelling severe Not available 05/26/2022 1191 RxNorm Not Available [facility] 3 06:08:25 20825 azithromy john medicatio n facial swelling Not available Not available 05/26/2022 75230 RxNorm tongu e swell ing Not Available [facility] 3 06:08:25 79197 cefdinir medicatio n rash Not available Not available 04/21/20232023 13012 RxNorm Quin Vieira RN null, [place] [employer] [facility] 4 16:44:05 Medications Name Sig Start Date Stop Date Status Note LastModified by Organization Details LastModified Time ziprasidone 80 mg capsule TAKE 2 CAPSULES BY MOUTH EVERY DAY WITH MEALS active Not Available Not Available No t Available amoxicillin 500 mg capsule TAKE 1 CAPSULE BY MOUTH THREE TIMES DAILY FOR 7 DAYS 04/09 completed Not Available Not Available Not Available fluconazole 100 mg tablet TK 1 T PO QD FOR 21 DAYS UTD active Not Available Not Available No t Available atorvastati n 40 mg tablet TAKE 1 TABLET BY MOUTH EVERY DAY active Not Available Not Available No t Available ivermectin 3 mg tablet 10/15 completed Not Available Not Available Not Available primidone 50 mg tablet TAKE 1 TABLET BY MOUTH EVERY NIGHT AT BEDTIME 03/07 completed Not Available Not Available Not Available Novolin 70/30 U-100 Insulin 100 unit/mL subcutaneou s suspension ADMINISTE R 10 UNITS UNDER THE SKIN TWICE DAILY DIRECTED 02/01 completed Not Available Not Available Not Available BD Alcohol Swabs APPLY 1 PAD TOPICALLY TO THE AFFECTED AREA FIVE TIMES DAILY DIRECTED FOR 30 DAYS 05/11 completed Not Available Not Available Not Available carvedilol 6.25 mg tablet TAKE 1 TABLET BY MOUTH EVERY 12 HOURS active Not Available Not Available No t Available prednisone 10 mg tablet 12/24 completed Not Available Not Available Not Available gabapentin 600 mg tablet TAKE 1 TABLET BY MOUTH THREE TIMES DAILY DIRECTED 09/21 completed Not Available Not Available Not Available doxycycline hyclate 100 mg capsule TAKE 1 CAPSULE BY MOUTH TWICE DAILY FOR 7 DAYS 10/27 completed Not Available Not Available Not Available albuterol sulfate 2.5 mg/3 mL (0.083 %) solution for nebulizatio n USE 3 ML VIA NEBULIZER THREE TIMES DAILY DIRECTED active Not Available Not Available No t Available enalapril maleate 5 mg tablet TAKE 1 TABLET BY MOUTH TWICE DAILY 09/21 completed Not Available Not Available Not Available atorvastati n 10 mg tablet TAKE 1 TABLET BY MOUTH DAILY active Not Available Not Available No t Available azithromyci n 250 mg tablet TAKE 2 TABLETS BY MOUTH FOR 1 DAY THEN TAKE 1 TABLET BY MOUTH DAILY FOR 4 DAYS DIRECTED active Not Available Not Available No t Available pravastatin 40 mg tablet TAKE 1 TABLET BY MOUTH EVERY DAY AFTER DINNER 11/30 completed Not Available Not Available Not Available fluconazole 150 mg tablet TAKE 1 TABLET BY MOUTH EVERY DAY FOR 3 DAYS active Not Available Not Available No t Available benzonatate 200 mg capsule Take 1 capsule 3 times a day by oral route as needed. active Not Available Not Available No t Available sulfamethox azole 400 mg-trimetho prim 80 mg tablet TAKE 1 TABLET BY MOUTH EVERY 12 HOURS FOR 3 DAYS DIRECTED 11/19 completed Not Available Not Available Not Available ampicillin 500 mg capsule TAKE 1 CAPSULE BY MOUTH EVERY 6 HOURS AFTER MEALS FOR 5 DAYS 11/19 completed Not Available Not Available Not Available hydrocodone 5 mg-acetamin ophen 325 mg tablet TAKE 1 TABLET BY MOUTH EVERY 6 HOURS NEEDED FOR PAIN 04/09 completed Not Available Not Available Not Available ondansetron HCl 8 mg tablet TAKE 1 TABLET BY MOUTH EVERY 6 HOURS NEEDED FOR NAUSEA OR VOMITING 02/01 completed Not Available Not Available Not Available fluconazole 200 mg tablet TAKE 2 TABLETS BY MOUTH EVERY DAY 02/01 completed Not Available Not Available Not Available FreeStyle Lancets 28 gauge USE BID 11/13 completed Not Available Not Available Not Available phenazopyri dine 200 mg tablet TAKE 1 TABLET BY MOUTH TWICE DAILY FOR 5 DAYS DIRECTED active Not Available Not Available No t Available ondansetron HCl 4 mg tablet Take 1 tablet twice a day by oral route as needed. 11/30 completed Not Available Not Available Not Available bupivacaine HCl 0.5 % (5 mg/mL) injection solution Take 4 mL by injection route. 2024 active Not Available Not Available Not Avai lable prednisone 20 mg tablet TAKE 2 TABLETS BY MOUTH EVERY DAY FOR 5 DAYS 07/30 completed Not Available Not Available Not Available clonazepam 0.5 mg tablet 02/07 completed Not Available Not Available Not Available gabapentin 400 mg capsule 1 PO TID 10/15 completed Not Available Not Available Not Available prednisone 5 mg tablet TK 6 TS PO QD FOR 5 DAYS 05/20 completed Not Available Not Available Not Available olanzapine 5 mg tablet 12/24 completed Not Available Not Available Not Available permethrin 5 % topical cream 10/15 completed Not Available Not Available Not Available olanzapine 10 mg tablet 12/24 completed Not Available Not Available Not Available hydralazine 25 mg tablet TAKE 1 TABLET BY MOUTH TWICE DAILY FOR BLOOD PRESSURE IF GREATER THAN 150 SYSTOLIC active Not Available Not Available No t Available clopidogrel 75 mg tablet TAKE 1 TABLET BY MOUTH EVERY DAY active Not Available Not Available No t Available chlorthalid one 25 mg tablet TAKE 1/2 TABLET BY MOUTH DAILY active Not Available Not Available No t Available amlodipine 5 mg tablet TAKE 1 TABLET BY MOUTH DAILY 07/30 completed Not Available Not Available Not Available prochlorper azine maleate 10 mg tablet TAKE 1 TABLET BY MOUTH EVERY 6 HOURS NEEDED FOR NAUSEA OR VOMITING 02/01 completed ON HOLD Not Available Not Available Not Available valacyclovi r 500 mg tablet TAKE 1 TABLET BY MOUTH EVERY 12 HOURS active Not Available Not Available No t Available ciprofloxac in 500 mg tablet TAKE 1 TABLET BY MOUTH EVERY 12 HOURS FOR 7 DAYS DIRECTED active Not Available Not Available No t Available sulfamethox azole 800 mg-trimetho prim 160 mg tablet TAKE 1 TABLET BY MOUTH EVERY 12 HOURS AFTER MEALS FOR 5 DAYS 02/01 completed Not Available Not Available Not Available tramadol 50 mg tablet TAKE 1 TABLET BY MOUTH EVERY 6 HOURS NEEDED FOR PAIN 06/29 completed Not Available Not Available Not Available triamcinolo ne acetonide 0.1 % topical cream 10/15 completed Not Available Not Available Not Available amoxicillin 500 mg tablet Take 1 tablet 3 times a day by oral route for 7 days. active Not Available Not Available No t Available glimepiride 2 mg tablet 12/24 completed Not Available Not Available Not Available pantoprazol e 20 mg tablet,cherise yed release TAKE 1 TABLET BY MOUTH EVERY DAY BEFORE A MEAL active Not Available Not Available No t Available oxycodone-a cetaminophe n 5 mg-325 mg tablet TAKE 1 TABLET BY MOUTH EVERY 6 HOURS NEEDED FOR PAIN 06/29 completed Not Available Not Available Not Available terbinafine HCl 250 mg tablet TAKE 1 TABLET BY MOUTH EVERY DAY. active Not Available Not Available No t Available potassium chloride ER 20 mEq tablet,exte nded release(par t/cryst) 11/30 completed Not Available Not Available Not Available famotidine 20 mg tablet TK 1 T PO BID 11/27 completed Not Available Not Available Not Available prednisolon e acetate 1 % eye drops,suspe nsion active Not Available Not Available Not Available nifedipine ER 60 mg tablet,exte nded release 24 hr TAKE 1 TABLET BY MOUTH DAILY active Not Available Not Available No t Available tamsulosin 0.4 mg capsule TAKE 1 CAPSULE BY MOUTH DAILY active Not Available Not Available No t Available OneTouch Ultra Test strips TEST BLOOD SUGAR FOUR TIMES DAILY active Not Available Not Available No t Available Kenalog 10 mg/mL suspension for injection Take 1 mL by injection route. 2024 active [facility]: [phone]- [phone] Not Available Not Available Not Available amlodipine 10 mg tablet TAKE 1 TABLET BY MOUTH DAILY active Not Available Not Available No t Available benzonatate 100 mg capsule TK ONE C PO Q 8 H PRN COU / COG 12/24 completed Not Available Not Available Not Available hydrocodone 7.5 mg-acetamin ophen 325 mg tablet TAKE 1 TABLET BY MOUTH EVERY 6 HOURS NEEDED FOR PAIN 01/30 completed Not Available Not Available Not Available paroxetine 30 mg tablet 12/24 completed Not Available Not Available Not Available pantoprazol e 40 mg tablet,cherise yed release TK 1 T PO QD 05/09 completed Not Available Not Available Not Available metformin 1,000 mg tablet 12/24 completed Not Available Not Available Not Available ranitidine 150 mg tablet TK 1 T PO BID ATC 10/15 completed Not Available Not Available Not Available glimepiride 4 mg tablet 12/24 completed Not Available Not Available Not Available prednisone 50 mg tablet 10/15 completed Not Available Not Available Not Available promethazin e 25 mg tablet TAKE 1/2 TABLET BY MOUTH EVERY 6 HOURS NEEDED 11/19 completed Not Available Not Available Not Available losartan 25 mg tablet TAKE 1 TABLET BY MOUTH DAILY active Not Available Not Available No t Available metoprolol tartrate 50 mg tablet 11/13 completed Not Available Not Available Not Available sulfamethox azole 200 mg-trimetho prim 40 mg/5 mL oral suspension SHAKE LQ AND TK 20 ML PO Q 12 H WITH FOOD FOR 5 DAYS 10/15 completed Not Available Not Available Not Available gabapentin 300 mg capsule TAKE 1 CAPSULE BY MOUTH THREE TIMES DAILY active Not Available Not Available No t Available insulin syringe U-100 with needle 1 mL 31 gauge x 08/10 completed Not Available Not Available Not Available olanzapine 15 mg tablet TK 1 T PO QD HS 11/27 completed Not Available Not Available Not Available pravastatin 20 mg tablet 11/13 completed Not Available Not Available Not Available hydrochloro thiazide 25 mg tablet TAKE 1 TABLET BY MOUTH EVERY DAY 04/09 completed Not Available Not Available Not Available mupirocin 2 % topical ointment APPLY A SMALL AMOUNT TOPICALLY TO THE AFFECTED AREA OF INCISION THREE TIMES DAILY active Not Available Not Available No t Available gabapentin 100 mg capsule TAKE 1 CAPSULE BY MOUTH THREE TIMES DAILY 11/30 completed Not Available Not Available Not Available levofloxaci n 500 mg tablet TAKE 1 TABLET BY MOUTH EVERY DAY 03/07 completed Not Available Not Available Not Available estradiol 0.01% (0.1 mg/gram) vaginal cream APPLY 1 GRAM INTO VAGINA 2 NIGHTS PER WEEK 07/30 completed Not Available Not Available Not Available levofloxaci n 750 mg tablet 12/24 completed Not Available Not Available Not Available methylpredn isolone 4 mg tablets in a dose pack 12/24 completed Not Available Not Available Not Available albuterol sulfate HFA 90 mcg/actuati on aerosol inhaler INHALE 1 PUFF BY MOUTH EVERY 4 HOURS NEEDED active Not Available Not Available No t Available paroxetine 40 mg tablet TAKE 1 TABLET BY MOUTH EVERY DAY AT BEDTIME active Not Available Not Available No t Available ipratropium bromide 42 mcg (0.06 %) nasal spray USE 1 SPRAY IN EACH NOSTRIL FOUR TIMES DAILY NEEDED 07/05 completed Not Available Not Available Not Available oxybutynin chloride 5 mg tablet TAKE 1 TABLET BY MOUTH TWICE DAILY DIRECTED 03/30 completed Not Available Not Available Not Available lisinopril 40 mg tablet 11/27 completed Not Available Not Available Not Available cefdinir 300 mg capsule TAKE 1 CAPSULE BY MOUTH TWICE DAILY FOR 7 DAYS 07/30 completed Not Available Not Available Not Available fluticasone propionate 50 mcg/actuati on nasal spray,suspe nsion SHAKE LQ AND U 1 SPR IEN QD UTD 10/15 completed Not Available Not Available Not Available loratadine 10 mg tablet TK 1 T PO D 11/27 completed Not Available Not Available Not Available metoclopram johanna 10 mg tablet TAKE 1 TABLET BY MOUTH TWICE DAILY DIRECTED 03/07 completed ON HOLD Not Available Not Available Not Available amoxicillin 875 mg-potassiu m clavulanate 125 mg tablet TAKE 1 TABLET BY MOUTH EVERY 12 HOURS AFTER MEALS FOR 7 DAYS 07/30 completed Not Available Not Available Not Available amoxicillin 500 mg-potassiu m clavulanate 125 mg tablet Take 1 tablet every 12 hours by oral route as directed for 5 days. 05/11 completed Not Available Not Available Not Available hydroxyzine pamoate 25 mg capsule TAKE 1 CAPSULE BY MOUTH EVERY DAY IN THE MORNING active Not Available Not Available No t Available Novolog FlexPen U-100 Insulin aspart 100 unit/mL (3 mL) subcutaneou s INJECT 5 UNITS UNDER THE SKIN 3 TIMES DAILY active Not Available Not Available No t Available metformin ER 750 mg tablet,exte nded release 24 hr 12/24 completed Not Available Not Available Not Available ciprofloxac in 0.3 %-dexametha sone 0.1 % ear drops,suspe nsion SHAKE LIQUID AND INSTILL 4 DROPS IN BOTH EARS TWICE DAILY 11/30 completed Not Available Not Available Not Available potassium chloride ER 10 mEq tablet,exte nded release(par t/cryst) TAKE 2 TABLETS BY MOUTH DAILY WITH FOOD 11/30 completed Not Available Not Available Not Available metoprolol tartrate 25 mg tablet TAKE 1/2 TABLET BY MOUTH TWICE DAILY 02/01 completed ON HOLD Not Available Not Available Not Available Spiriva with HandiHaler 18 mcg and inhalation capsules 06/06 completed Not Available Not Available Not Available nitrofurant oin monohydrate /macrocryst als 100 mg capsule TAKE 1 CAPSULE BY MOUTH TWICE DAILY FOR 5 DAYS active Not Available Not Available No t Available senna active Not Available Not Availa ble Not Available Ventolin HFA 05/11 completed Not Available Not Available Not Available Levemir U-100 Insulin 100 unit/mL subcutaneou s solution ADMINISTE R 20 UNITS UNDER THE SKIN DAILY WITH LUNCH 11/30 completed Not Available Not Available Not Available OneTouch Ultra2 Meter kit USE TO TEST BID 11/13 completed Not Available Not Available Not Available BD Ultra-Fine Short Pen Needle 31 gauge x 08/10 completed Not Available Not Available Not Available Januvia 50 mg tablet TK 1 T PO QD UTD 12/24 completed Not Available Not Available Not Available Symbicort 160 mcg-4.5 mcg/actuati on HFA aerosol inhaler 06/06 completed Not Available Not Available Not Available peg 3350-electr olytes 236 gram-22.74 gram-6.74 gram-5.86 gram solution TAKE DIRECTED BY OFFICE 11/19 completed Not Available Not Available Not Available Lantus Solostar U-100 Insulin 100 unit/mL (3 mL) subcutaneou s pen INJECT 6 UNITS UNDER THE SKIN EVERY EVENING active Not Available Not Available No t Available Humalog KwikPen (U-100) Insulin 100 unit/mL subcutaneou s ADMINISTE R 5 UNITS UNDER THE SKIN THREE TIMES DAILY active Not Available Not Available No t Available TRUEplus Lancets 30 gauge USE TWICE DAILY 03/10 completed Not Available Not Available Not Available BD Insulin Syringe Ultra-Fine 0.3 mL 31 gauge x 5/16 USE 3 TIMES DAILY DIRECTED FOR INSULIN INJECTION S active Not Available Not Available No t Available potassium chloride ER 20 mEq tablet,exte nded release TAKE 1 TABLET BY MOUTH TWICE DAILY 02/01 completed Not Available Not Available Not Available Spiriva Respimat 2.5 mcg/actuati on solution for inhalation 06/06 completed Not Available Not Available Not Available Arnuity Ellipta 100 mcg/actuati on powder for inhalation INHALE 1 PUFF BY MOUTH EVERY DAY 09/26 completed Not Available Not Available Not Available Stiolto Respimat 2.5 mcg-2.5 mcg/actuati on solution for inhalation INHALE 2 PUFFS PO QD 10/15 completed Not Available Not Available Not Available Zarxio 300 mcg/0.5 mL injection syringe 11/30 completed Not Available Not Available Not Available Droplet Pen Needle 31 gauge x 3/16 INJECT FOUR TIMES DAILY active Not Available Not Available No t Available Flucelvax Quad (PF) 60 mcg (15 mcg x 4)/0.5 mL IM syringe ADM 0.5ML IM UTD 05/20 completed Not Available Not Available Not Available Trelegy Ellipta 100 mcg-62.5 mcg-25 mcg powder for inhalation INHALE 1 PUFF BY MOUTH EVERY DAY active Not Available Not Available No t Available OneTouch Ultra Blue Test Strip USE TO TEST TWICE DAILY 11/13 completed Not Available Not Available Not Available BD Veo Insulin Syringe Ultra-Fine (half unit) 0.3 mL 31 gauge x 15/64 07/30 completed Not Available Not Available Not Available Phosphorous 250 mg tablet TAKE 1 TABLET BY MOUTH THREE TIMES DAILY WITH FOOD 02/01 completed ON HOLD Not Available Not Available Not Available Novolin 70-30 FlexPen U-100 Insulin 100 unit/mL (70-30) subcutaneou s 10/15 completed Not Available Not Available Not [...] 10/26 completed Pt GFR is 57 on 022 Not Available Not Available Not Available FreeStyle Ron 3 [place] USE TWICE DAILY DIRECTED active Not Available Not Available No t Available FreeStyle Ron 3 Plus Sensor device USE DIRECTED TWICE DAILY TO CHECK BLOOD SUGAR active Not Available Not Available No t Available Vitals Date Recorded Body height Body mass index (BMI) Body weight Pain severity - 0-10 verbal numeric rating [Score] - Reported Provider Name and Address Organization Details Last Updated DateTime 07/30/2024 162.56 cm 24.5 kg/m2 14676.71 g 2 Paula Ruvalcaba [facility] [employer] 07/30/2024 10:50:01 Date Recorded Body height Body mass index (BMI) Body weight Provider Name and Address Organization Details Last Updated DateTime 09/10/2024 162.56 cm 24.5 kg/m2 31083.71 g Paula Ruvalcaba [facility] [employer] 09/10/2024 11:28:17 Date Recorded Body height Body mass index (BMI) Body weight Pain severity - 0-10 verbal numeric rating [Score] - Reported Provider Name and Address Organization Details Last Updated DateTime 10/30/2024 162.56 cm 24.5 kg/m2 89490.71 g 3 Paula Ruvalcaba [facility] [employer] 10/30/2024 13:56:48 Date Recorded Body height Body temperature Heart rate Systolic And Diastolic Provider Name and Address Organization Details Last Updated DateTime 02/01/2023 162.56 cm 97.4 [degF] 81 /min 110/68 mm[Hg] Estefani Thorne [facility] [employer] [facility] 02/01/2023 15:10:12 Date Recorded Body height Body temperature Heart rate Oxygen saturation Systolic And Diastolic Provider Name and Address Organization Details Last Updated DateTime 12/11/202 3 162.56 cm 97.5 [degF] 87 /min 95 % 110/62 mm[Hg] KINGSLEY Mccullough [place] - [facility] 3 15:26:25 Social History Question Answer Notes LastModified by Organization Details LastModified Time Tobacco Smoking Status Former Smoker quit 2010 Not Available [employer] 05/26/2022 05:55:15 Do You Have An Advance Directive? No MIGRATION.030 [id number] Information not available 05/26/2022 Do You Wear A Helmet When Biking? No MIGRATION.0301 [id number] Information not available 05/26/2022 What Is Your Level Of Caffeine Consumption? None MIGRATION.030 [id number] Information not available 05/26/2022 In The 14 Days Before Symptom Onset, Have You Had Close Contact With A Laboratory-confi rmed COVID-19 While That Case Was Ill? No MIGRATION.030 [id number] Information not available 05/26/2022 In The 14 Days Before Symptom Onset, Have You Had Close Contact With A Person Who Is Under Investigation For COVID-19 While That Person Was Ill? No MIGRATION.0301 [id number] Information not available 05/26/2022 What Type Of Diet Are You Following? REGULAR MIGRATION.030 [id number] Information not available 05/26/2022 What Is The Highest Grade Or Level Of School You Have Completed Or The Highest Degree You Have Received? [id number] MIGRATION.030 [id number] Information not available 05/26/2022 Have There Been Any Changes To Your Family Or Social Situation? No MIGRATION.030 [id number] Information not available 05/26/2022 What Is The Fluoride Status Of Your Home? Unknown MIGRATION.0301 [id number] Information not available 05/26/2022 When Did You Quit Smoking? 6-10yearssincelastc igarette MIGRATION.030 [id number] Information not available 05/26/2022 Are There Any Guns Present In Your Home? No MIGRATION.0301 [id number] Information not available 05/26/2022 Do You Use Insect Repellent Routinely? No MIGRATION.0301 [id number] Information not available 05/26/2022 Where Do You Live? SingleLevelHouse MIGRATION.0301 [id number] Information not available 05/26/2022 Do You Have A Medical Power Of Ice Guard Skating Rink? No MIGRATION.0301 [id number] Information not available 05/26/2022 What Was The Date Of Your Most Recent Tobacco Screening? 07/30/2024 [email or web address] Information not available 07/30/2024 Do You Have Any Pets? No MIGRATION.0301 [id number] Information not available 05/26/2022 What Is Your Relationship Status? MIGRATION.0301 [id number] Information not available 05/26/2022 Do You Use Your Seat Belt Or Car Seat Routinely? Yes MIGRATION.0301 [id number] Information not available 05/26/2022 Do You Have Smoke And Carbon Monoxide Detectors In Your Home? Yes MIGRATION.0301 [id number] Information not available 05/26/2022 At What Age Did You Start Smoking Tobacco? 16 MIGRATION.0301 [id number] Information not available 05/26/2022 Are You Passively Exposed To Smoke? No MIGRATION.0301 [id number] Information not available 05/26/2022 Are There Any Smokers In Your House? No MIGRATION.0301 [id number] Information not available 05/26/2022 What Types Of Sporting Activities Do You Participate In? None MIGRATION.0301 [id number] Information not available 05/26/2022 Do You Use Sunscreen Routinely? No MIGRATION.0301 [id number] Information not available 05/26/2022 Has Tobacco Cessation Counseling Been Provided? No MIGRATION.0301 [id number] Information not available 05/26/2022 Have You Recently Traveled Abroad? No MIGRATION.0301 [id number] Information not available 05/26/2022 Do You Have Any Dietary Restrictions? No MIGRATION.0301 [id number] Information not available 05/26/2022 Sex: Female Functional Status Question Answer Note LastModified by [employer] ion Details LastModified Time Do you use any illicit or recreational drugs? No [id number] Information not available 05/26/2022 Do you or have you ever used any other forms of tobacco or nicotine? No [id number] 026 Information not available 05/26/2022 What is your level of alcohol consumption? None quit 2007 [id number].[id number] 026 Information not available 05/26/2022 What is your exercise level? Moderate [id number] [id number] Information not available 05/26/2022 Mental Status Question Answer Note LastModified by [employer] ion Details LastModified Time Do you feel stressed (tense, restless, nervous, or anxious, or unable to sleep at night)? [id number] [id number] Information not available 05/26/2022 Family History Relationship Description Onset Age of this Age Resolved Age Notes LastModified by Organization Details LastModified Time Mother Hypertensive disorder [id number] Not available 05/26/2022 05:55:57 Mother Hyperlipidem ia MIGRATION.666 [id number] Not available 05/26/2022 05:55:57 Sister Hypertensive disorder MIGRATION.506 [id number] Not available 05/26/2022 05:55:57 Sister Malignant neoplasm of neck MIGRATION.249 [id number] Not available 05/26/2022 05:55:57 Sister Chronic obstructive pulmonary disease MIGRATION.667 [id number] Not available 05/26/2022 05:55:57 Brother Diabetes mellitus MIGRATION.175 [id number] Not available 05/26/2022 05:55:57 Medical History Condition [...] HAVE YOU BEEN HOSPITALIZED OR SEEN IN [facility] IN THE PAST YEAR ? Y [...] mcg/0.3 mL dose 2 completed Not Available [facility] 04/22/2023 12:02:17 Influenza, high-dose, quadrivalent, PF 2 completed Not Available [facility] 04/22/2023 12:02:17 Influenza, split virus, quadrivalent, preservative 0 completed Not Available [facility] 04/22/2023 12:02:17 Influenza, split virus, quadrivalent, preservative 9 completed Not Available [facility] 04/22/2023 12:02:17 influenza, unspecified formulation 7 completed Not Available [facility] 04/22/2023 12:02:17 COVID-19, mRNA, LNP-S, PF, 30 mcg/0.3 mL dose 1 completed Not Available [facility] 04/22/2023 12:02:17 COVID-19 vaccine, vector-nr, rS-Ad26, PF, 0.5 mL 1 completed Not Available [facility] 04/22/2023 12:02:17 influenza, unspecified formulation 5 completed Not Available [facility] 04/22/2023 12:02:17 Influenza, split virus, quadrivalent, PF 1 completed Not Available [facility] 04/22/2023 12:02:17 Past Encounters Encounter ID Performer Location Encounter Start Date Encounter Closed Date Diagnosis/Indication Diagnosis SNOMED-CT Code Diagnosis ICD10 Code Diagnosis IMO Codes Diagnosis Note [id number] Jaya James MD [facility] [address] [place] [address] [phone] 0 11/19/2020 00:00:00 11/19/2020 12:29:48 [id number] [facility] [address] [place] [address] [phone] 0 12/10/2020 00:00:00 12/10/2020 12:17:27 [id number] Shiela Flor MD [facility] Internal Med [facility] [address] [place] [address] [phone] 1 01/30/2021 00:00:00 02/08/2021 22:11:25 [id number] [facility]iga D[facility] [address] [place] [address] [id number] 0 02/02/2021 00:00:00 02/02/2021 14:24:06 [id number] [facility] [address] [place] [address] [id number] 0 02/10/2021 00:00:00 02/10/2021 12:54:52 [id number] [facility]iga DPM [facility] [address] [place] [address] [id number] 0 02/16/2021 00:00:00 02/16/2021 09:17:20 [id number] [facility] [address] [place] [address] [id number] 0 03/09/2021 00:00:00 03/09/2021 12:59:46 [id number] Shiela Flor MD [facility] [address] [place] [address] [phone] 1 03/30/2021 00:00:00 03/30/2021 22:56:25 [id number] [facility] [address] [place] [address] [phone] 0 04/20/2021 00:00:00 04/20/2021 11:25:01 [id number] Ale[facility]iga DPM [facility] [address] [place] [address] [id number] 0 04/27/2021 00:00:00 04/27/2021 19:27:40 [id number] [facility] [address] [place] [address] [phone] 0 05/04/2021 00:00:00 05/04/2021 15:45:18 [id number] Alec Zuniga DPM [facility] [place] [address] [place] [address] [phone] 0 05/11/2021 00:00:00 05/12/2021 08:55:56 [id number] [facility] [address] [place] [address] [phone] 0 05/25/2021 00:00:00 05/25/2021 12:49:04 [id number] Jaya James MD [facility] [address] [place] [address] [id number] 0 06/11/2021 00:00:00 06/11/2021 14:54:15 [id number] Shiela Flor MD [facility] [address] [place] [address] [phone] 1 06/29/2021 00:00:00 07/19/2021 16:09:18 [id number] [facility]iga DPM [facility] [address] [place] [address] [phone] 0 07/20/2021 00:00:00 07/20/2021 22:07:42 [id number] Shiela Flor MD [facility] [address] [place] [address] [id number] 1 08/12/2021 00:00:00 08/12/2021 21:04:41 [id number] Shiela Flor MD [facility] [address] [facility], [address] [address]20[address] 1 10/26/2021 00:00:00 11/10/2021 22:20:42 [id number] Shiela Flor MD [facility] Internal Med [facility] [address] [place] [address], [address] [phone] 1 02/01/2022 00:00:00 02/01/2022 22:49:54 [id number] Shiela Flor MD [facility] Internal Med [facility] [address] [place] [address] [id number] 1 04/09/2022 00:00:00 04/09/2022 15:41:24 [id number] Shiela Flor MD [facility] Internal Med [facility] [address] [place] [address], [address] 1 05/07/2022 00:00:00 05/16/2022 16:17:25 [id number] Shiela Flor MD [facility] Internal [place] [address] [place] [address] 1 05/31/2022 14:34:19 05/31/2022 15:41:31 Computed tomography result abnormal [id number] R93.89 [id number] Jean Claude Lopez NP [facility] Urology [address] [place] [address] [id number] 1 07/02/2022 11:38:25 07/02/2022 12:42:22 Dysuria 13290304 R30.0 We discussed avoiding bladder irritants such as carbonated beverages, caffeine, spicy/ acidic foods, alcohol, and/ or tobacco products. Will send urine cytology due to irritative urinary symptoms and past heavy smoker. Flank pain [id number] R10 .9 pain reproducib le with palpation. I suspect pain is nerve/musc uloskeleta l related. UA today is negative for blood. No history of stones. Will check renal ultrasound to rule in/ out urologic pathology. follow-up after renal ultrasound to discuss results. Increased frequency of urination 296251510 R35.0 Avoid bladder irritants. Limit fluids 2 hours prior to bedtime. If patient is unsuccessf ul with behavioral strategies may consider anticholin ergic/beta 3 agonist or PF PT. Urge incon tinence of urine 60443192 N39.41 [id number] Shiela Flor MD [facility] Internal Med [facility] [address] [facility] [address] [place] [address] 07/05/2022 14:31:37 07/05/2022 16:10:59 Dyspnea 365360901 R06.02 Computed t omography result abnormal [id number] R93.89 Nausea and vomiting [id number] R11.2 [id number] Jean Claude Lopez NP [facility] Urology [address] [phone] 07/19/2022 12:22:36 07/19/2022 13:07:12 Dysuria 71776596 R30.0 We discussed avoiding bladder irritants such as carbonated beverages, caffeine, spicy/ acidic foods, alcohol, and/ or tobacco products. Will send urine cytology due to irritative urinary symptoms and past heavy smoker. 07/19/2022 Improved. Flank pain 049989003 R10 .9 get CTU. Increased frequency of urination 324241616 R35.0 Avoid bladder irritants. Limit fluids 2 hours prior to bedtime. If patient is unsuccessf ul with behavioral strategies may consider anticholin ergic/beta 3 agonist or PF PT. Urge incon tinence of urine [id number] N39.41 Hydroureter 75883535 N13 .4 Will check CTU for structural evaluation to assess cause of left hydrourete r. No contrast allergy. I will call with results and plan appropriat e follow-up. We discussed in the abscence of structural obstructio n will need to get lasix renogram for functional assessment . [id number] Shiela Flor MD [facility] [facility] Olayinka landen [address] 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 [place] [facility] [address] [facility] 15 [place] [address] 11/30/2022 14:50:19 11/30/2022 15:37:56 Essential hypertension [id number] I10 Type 2 alok betes mellitus 08718867 E11.9 Hyperlipidemia 82979144 E78.5 [id number] [address] [facility] [place] [facility] [address] [facility] [address] [address] 02/01/2023 14:49:39 02/01/2023 16:00:58 High grade B-cell lymphoma [id number] C85.10 Essential hypertension 53136618 I10 Hyperlipidemia 02703613 E78.5 Type 2 alok betes mellitus 13721698 E11.9 [id number] [address] [facility] [place] [facility] [address] [facility] [address] [address] 03/07/2023 14:48:19 03/07/2023 16:10:53 Pre-surgery evaluation [id number] Z01.818 Essential hypertension 57182257 I10 Type 2 alok betes mellitus without complication 899102606 E11.9 [id number] Tin Burnette MD [facility] [address] [place] [address] 07/30/2024 10:19:54 07/30/2024 11:13:26 Pain of right knee joint 1503653100 01163 M25.561 [id number] Osteoarthr itis of right knee joint 8298728125 99614 M17.11 [id number] Rekha Nunez PA-C S_[address] [address] 09/10/2024 11:25:33 09/10/2024 11:38:50 Pain of right knee joint 1324524936 26071 M25.561 [id number] Osteoarthr itis of right knee joint 3777129490 01406 M17.11 [id number] Tin Burnette MD S_[facility] [address] [place] [address] 10/30/2024 13:53:47 10/30/2024 14:08:17 Osteoarthritis of right knee joint [id number] 19499 M17.11 [id number] Health Concerns Section Related Observation LastModified by Organization Detai ls LastModified Time None Recorded Concern Status LastModified by Organization Details LastModified Time None Recorded Advance Directives Directive N: Payers Insurance Date Sequence Insurance Name Policy Number Policy Gregory Covered Member ID Gregory Member ID Guarantor Name 11/02/2024 1 [facility] (MEDICARE REPLACEMENT/AD VANTAGE - PPO) [id number] Paula Villalobos Usrey [id number] Paula Villalobos Usrey 09/06/2024 1 [facility] (MEDICARE REPLACEMENT HMO) [id number] Paula Villalobos Usrey [id number] Paula Villalobos rey 09/06/2024 2 [place] [facility] Paula Padillarey [id number] Paula Villalobos Usrey 10/27/2024 2 [place] [facility] OF [facility] AID Paula Villalobos Usrey [id number] Paula Padillarey Notes Date Note Type Note Provider Name and Address Organization Details Recorded Time 02/01/2023 text/html And problems with her feetNeuropathy badSpecialist center to OrthoWill need foot care because of her diabetes as well Shiela Flor MD [address], [place], [address], [employer] 02/02/2023 21:21:32 03/07/2023 text/html He is to have surgery on feetHypertension no chest pain or shortness of breath but she does not ambulateType 2 diabetes needs an A1c no polyphagia polydipsiaCAD with stent no chest painCOPD no problems breathing at this timeB-cell lymphoma treated at [facility] Shiela Flor MD [address], [place], [address], [employer] 03/28/2023 18:10:42 OBGyn Episode No OBEpisode recorded.
--- OUTSIDE RECORDS SUMMARY | 2025-02-27 13:11 | XMS_ITS | Clinical Summary ---
Author Organization [facility] Address [address] [place] [address] Care Team Providers Care Mud Logger Name Role Phone Agustin Flor MD Primary Care Provider [phone] Shreyas Phillips MD Unavailable Bebe HernandezC Unavailable [phone] Nanda Rausch RN Unavailable Unavailable Source Comments [facility],non-owned Affiliates and Associated Physician Practices is amultiple site organization consisting of ambulatory clinics and hospital sitesin [place], [place], [place] and [place]. This disclosure is being madepursuant to the Care Everywhere program and may not contain all information available regarding this patient. Last updated 17.[facility] Allergies Active Allergy Reactions Criticality Noted Date Comments Aspirin Swelling,Eye Itching,Other,Shortn ess of Breath,Unknown High 04/12/2018 Pain in the chest, eye red and swollen Breathing Difficulty Pain in the chest, eye red and swollen Azithromycin Shortness of Breath,Eye Redness High 06/15/2024 Benzalkonium Chloride Rash Medium 11/02/2024 Cefdinir Itching,Rash Medium 04/21/2023 Clonazepam Unknown 07/14/2022 Jerk in the leg Hydralazine Shortness of Breath,Itching High 11/02/2024 Hydrochlorothiazide Itching,Unknown Low 12/15/2022 Severe itching Losartan Itching 11/02/2024 Nifedipine Itching 11/02/2024 Medications * Be aware that medications may not be up to date on this document. Alwaysverify current medications with the patient. Insulin Pen Needle 31G X 6 MM MISCIndications:Ty pe 2 diabetes mellitus with diabetic nephropathy, unspecified whether [facility] insulin use (HCC) Use 1 Needle as [...] PO) Take by mouth once daily Active amLODIPine (Norvasc) 10 MG tablet Take 1 (one) tablet by mouth once daily Active estradiol (Estrace) 0.1 MG/GM vaginal cream Insert 1 g into the vagina at bedtime 02/02/20 24 Active atorvastatin (Lipitor) 40 MG tabletIndications: Coronary artery disease involving grayling heart without angina pectoris, unspecified vessel or lesion type,Hyperlipidemi a, unspecified hyperlipidemia type Take 1 (one) tablet by mouth at bedtime 90 tablet 2 03/01/20 24 Active clopidogrel (plaVIX) 75 MG tablet Take 1 (one) tablet by mouth once daily 06/01/19 25 026 Active carvedilol (Coreg) 6.25 MG tablet Take 1 (one) tablet by mouth every 12 hours 09/28/19 25 Active chlorthalidone (Hygroton) 25 MG tablet Take 0.5 (one-half) tablet by mouth once daily 09/17/19 25 Active Continuous Glucose Sensor (FreeStyle Ron 3 Plus Sensor) [facility] USE DIRECTED TWICE DAILY TO CHECK BLOOD SUGAR 09/25/19 25 Active Continuous Glucose Sensor (FreeStyle Ron [address]) [facility] USE TO CHECK BLOOD SUGAR TWICE DAILY. CHANGE SENSOR EVERY 14 DAYS 09/13/19 25 Active cranberry (RA Cranberry) 500 MG capsule Take by mouth once daily Active HumaLOG KwikPen 100 UNIT/ML pen ADMINISTER 5 UNITS UNDER THE SKIN THREE TIMES DAILY 09/13/19 25 Active magnesium (RA Natural Magnesium) 250 MG tablet Take by mouth once daily Active tamsulosin (Flomax) 0.4 MG capsule Take 1 (one) capsule by mouth once daily 10/02/19 25 Active gabapentin (Neurontin) 300 MG capsuleIndications :Drug-induced polyneuropathy (HCC),Foot drop, bilateral Take 1 (one) capsule by mouth 3 times daily 90 capsule 5 11/03/19 25 Active Active Problems Problem Noted Date Diagnosed [...] Encounters Date Type Department Care Team Description 12/31/2024 Orders Only [facility] [address] [place] [address] Nanda Rausch, RN Diffuse large B-cell lymphoma, unspecified body region (HCC) 12/27/2024 Orders Only [facility] [address] [place] [id number] Sorin Bowden, VAULT TELLER-FELT HAT FLANGING OPERATOR Thyroid nodule 12/26/2024 8:34 AM CDT - 12/26/2024 11:59 PM CDT Hospital Encounter [facility] [address] [place] [phone] Sorin Bowden, CAIO-CLAYTON Discharge Disposition: Home or Self Care 12/26/2024 Travel 12/14/2024 12:49 PM CDT - 12/14/2024 11:59 PM CDT Hospital Encounter [facility] [address] [place] [phone] Shreyas Phillips MD Discharge Disposition: Home or Self Care 12/14/2024 Results Follow-Up [facility] [address] [place] [address] Shreyas Phillips MD 12/14/2024 Travel from Last 3 Months Immunizations Immunization Administration Dates Next Due COVID PFIZER BIVALENT 12Y+ 30mcg/0.3ML 01/21/2022 Covid Pfizer primary monoval ent 12+ yr 0.3mL Purple cap 01/21/2022,12/28/2020 FLU VACCINE QUAD IIV4 SPLIT 0.25 ML IM 01/25/2020,01/17/2019 INFLUENZA [id number], HISTORIC VACCINE 01/21/2022 INFLUENZA VACCINE 12/26/2016,03/28/2014 INFLUENZA [...] care, and heating? Not very hard 11/20/2022 [facility] [place] [facility] Occupat ional [facility] - Occupational Stress [...] No 11/20/2022 Housing Stability Vital Sign Answer Ojno e Recorded In the last 12 months, [...] in a long-term (including now)? No 11/20/2022 Comments No Sex and Gender Information Value Date Recorded Sex Assigned at Not on file Legal Sex Female 2:13 PM CDT Gender Identity Female 08/19/2023 1:35 PM CDT Sexual Orientation Not on file Last Filed Vital Signs Vital Sign Reading Time Taken Comments Blood Pressure 130/64 11/02/2024 1:34 PM CDT Pulse 81 11/02/2024 1:34 PM CDT Temperature 36.9 C (98.5 F) 11/02/2024 1:34 PM CDT Respiratory Rate 18 11/02/2024 1:34 PM CDT Oxygen Saturation 97% 11/02/2024 1:34 PM CDT Inhaled Oxygen Concentration - - Weight 62.6 kg (138 lb) 11/02/2024 1:34 PM CDT Height 162.6 cm (5' 4) 06/15/2024 12:10 PM CDT Body Mass Index 23.69 06/15/2024 12:10 PM CDT Plan of Treatment Upcoming Encounters Date Type Department Care Team (Late st Contact Info) Description 05/31/2025 10:40 AM CUT OUT PRESS OPERATOR Appointment [facility] [address] [place] [phone] Shreyas Phillips MD [address] [place] [address] 05/31/2025 12:20 PM CUT OUT PRESS OPERATOR Appointment [facility] [address] [place] [address] Shreyas Phillips MD [address] [place] [address] Health Maintenance Due Date Last Done Comments BONE DENSITY TESTING 1960 COLOGUARD (AGES 45-75) - COLON CA SCREENING 1958 COLON MONITORING 1958 COLONOSCOPY - COLON CA SCREENING 1958 CT COLONOGRAPHY - COLON CA SCREENING 1960 Colorectal Cancer Screening 1960 FIT - COLON CA SCREENING 1958 FLEX SIG - COLON CA SCREENING 1958 MAMMOGRAM 1958 DTAP/TDAP/TD VACCINES (1 - Tdap) 1977 Respiratory Syncytial Virus (RSV) Vaccine Pt: or over 60 yrs (1 - Risk 50-74 years 1-dose series) 2008 ZOSTER VACCINE (1 of 2) 2008 DIABETES RETINOPATHY SCREENING 07/24/2022 DIABETES-FOOT EXAM WITH MONOFILAMENT 07/24/2022 DIABETES-HGB A1C 08/04/2023 02/03/2023, , 07/23/2022 DEPRESSION SCREENING 03/28/2024 DIABETES - URINE PROTEIN SCREENING 03/28/2024 MEDICARE AWV CALENDAR YEAR 2024 COVID-19 VACCINE ( season) 2024 02/09/2023, 01/21/2022, 01/21/2022, Additional history exists INFLUENZA VACCINE (#1) 2024 , 01/21/2022, 01/21/2022, Additional history exists DIABETES-SERUM CREATININE 11/02/20252024, 06/15/2024, 05/28/2024, Additional history exists PNEUMOCOCCAL VACCINE 50+ Completed [...] this topic Medical Devices Implanted Type Area Roller Varnisher Device Identifier Shelf Expiration Date Model / Serial / Lot Port Implinfn Powerport Clrvu Argd Kika Implanted:Qty: 1 on 07/15/2022 at [facility] Right: Chest [employer] 11/26/2023 [id number] / / [id number] Description:RIJ by Milena Spivey inton Procedures Procedure Name Priority Date/Time Associated Diagnosis Comments US THYROID Routine 12/26/2024 9:13 AM CDT Thyroid nodule CT CHEST ABDOMEN PELVIS W CONT Routine 12/14/2024 1:16 PM CDT B-cell lymphoma, unspecified B-cell lymphoma type, unspecified body region (HCC) Diffuse large B-cell lymphoma, unspecified body region (HCC) COMPREHENSIVE METABOLIC PANEL STAT 11/02/2024 1:24 PM CDT 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) HEMOGLOBIN A1C Routine 02/03/2023 11:03 AM CUT OUT PRESS OPERATOR Bilateral foot pain HEPATITIS C RNA QUANTITATIVE STAT 07/16/2022 12:15 PM CDT Non-Hodgkin's lymphoma, unspecified body region, unspecified non-Hodgkin lymphoma type High risk for chemotherapy-induced infectious complication from Last 3 Months or Most Recently Relevant to Health Maintenance Results * US Thyroid (12/26/2024 9:13 AM CDT) Anatomical Region Laterality Modality Chest Ultrasound 12/26/2024 9:14 AM CDT Impressions 12/26/2024 11:37 AM CDT IMPRESSION: 1.There is a right middle lobe TR3 nodule measuring 1.9 x 1.6 x 1.5 cm. Mildly suspicious. Follow-up ultrasound recommended at 1, 3, and 5 years. 2.There is another right inferior lobe TR2 nodule which does not require fine-needle aspiration nor follow-up. 3.There are 2 left superior lobe nodules rated TR2 and TR 1 respectively which do not require fine-needle aspiration nor follow-up. > Dictated by Alberto Perez MD (ceo and president). > Dictated by Neighborhood Conservation Officer I, Peter Avalos MD have personally reviewed and interpreted this examination/study. > Interpreting Provider: Peter Avalos MD on 12/26/2024 11:37 AM Narrative 12/26/2024 11:37 AM CDT PROCEDURE: US THYROID, DATE/TIME OF EXAM: 12/26/2024 9:14 AM, LOCATION [facility] INDICATION: E04.1: Thyroid nodule ADDITIONAL CLINICAL INFORMATION: Ordering Provider Reason For Exam: surveillance of known thyroid nodules Technologist Note: Additional: COMPARISON: Ultrasound thyroid 12/06/2023 FINDINGS: Right thyroid lobe: 3.8 x 2.1 x 1.7 cm Left thyroid lobe: 4.4 x 1.5 x 1.1 cm Isthmus: 3 mm The thyroid lobes are normal in size and echogenicity bilaterally. The isthmus is not thickened. There is no evidence of hyperemia within the thyroid. NODULE 1: Right middle lobe mixed cystic and solid nodule measuring 1.9 x 1.6 x 1.5 cm Composition: Mixed cystic and solid (1 point) Echogenicity: Hypoechoic (2 points) Shape: Wider than tall (0 points) Margin: Ill-defined (0 points) Echogenic foci: None or large comet tail artefact (0 points) The ACR TI-RADS score is TR3. Mildly suspicious. Follow-up recommended at 1, 3, and 5 years. NODULE 2: Right inferior lobe mixed cystic and solid nodule measuring 0.9 x 0.9 x 0.6 cm Composition: Mixed cystic and solid (1 point) Echogenicity: Hyperechoic or isoechoic (1 point) Shape: Wider than tall (0 points) Margin: Ill-defined (0 points) Echogenic foci: None or large comet tail artefact (0 points) The ACR TI-RADS score is TR2. Not suspicious. No fine-needle aspiration nor follow-up required. NODULE 3: More anterior Left superior lobe mixed cystic and solid nodule measuring 0.4 x 0.5 x 0.3 cm Composition: Mixed cystic and solid (1 point) Echogenicity: Hyperechoic or isoechoic (1 point) Shape: Wider than tall (0 points) Margin: Smooth (0 points) Echogenic foci: None or large comet tail artefact (0 points) The ACR TI-RADS score is TR2. Not suspicious. No fine-needle aspiration nor follow-up required. NODULE 4: More posterior left superior lobe mixed cystic nodule measuring 0.5 x 0.5 x 0.2 cm Composition: Cystic or almost completely cystic (0 points) Echogenicity: Anechoic (0 points) Shape: Wider than tall (0 points) Margin: Smooth (0 points) Echogenic foci: None or large comet tail artefact (0 points) The ACR TI-RADS score is TR1. Benign. No fine-needle aspiration or follow-up required. Procedure Note Peter Avalos MD - 12/26/2024 PROCEDURE: US THYROID, DATE/TIME OF EXAM: 12/26/2024 9:14 AM, [facility] INDICATION: E04.1: Thyroid nodule ADDITIONAL CLINICAL INFORMATION: Ordering Provider Reason For Exam: surveillance of known thyroidnodules Technologist Note: Additional: COMPARISON: Ultrasound thyroid 12/06/2023 FINDINGS: Right thyroid lobe: 3.8 x 2.1 x 1.7 cm Left thyroid lobe: 4.4 x 1.5 x 1.1 cm Isthmus: 3 mm The thyroid lobes are normal in size and echogenicity bilaterally. The isthmus is not thickened. There is no evidence of hyperemia within the thyroid. NODULE 1: Right middle lobe mixed cystic and solid nodule measuring 1.9x 1.6 x 1.5 cm Composition: Mixed cystic and solid (1 point) Echogenicity: Hypoechoic (2 points) Shape: Wider than tall (0 points) Margin: Ill-defined (0 points) Echogenic foci: None or large comet tail artefact (0 points) The ACR TI-RADS score is TR3. Mildly suspicious. Follow-up recommendedat 1, 3, and 5 years. NODULE 2: Right inferior lobe mixed cystic and solid nodule measuring 0.9x 0.9 x 0.6 cm Composition: Mixed cystic and solid (1 point) Echogenicity: Hyperechoic or isoechoic (1 point) Shape: Wider than tall (0 points) Margin: Ill-defined (0 points) Echogenic foci: None or large comet tail artefact (0 points) The ACR TI-RADS score is TR2. Not suspicious. No fine-needle aspirationnor follow-up required. NODULE 3: More anterior Left superior lobe mixed cystic and solid nodule measuring 0.4 x 0.5 x 0.3 cm Composition: Mixed cystic and solid (1 point) Echogenicity: Hyperechoic or isoechoic (1 point) Shape: Wider than tall (0 points) Margin: Smooth (0 points) Echogenic foci: None or large comet tail artefact (0 points) The ACR TI-RADS score is TR2. Not suspicious. No fine-needle aspirationnor follow-up required. NODULE 4: More posterior left superior lobe mixed cystic nodulemeasuring 0.5 x 0.5 x 0.2 cm Composition: Cystic or almost completely cystic (0 points) Echogenicity: Anechoic (0 points) Shape: Wider than tall (0 points) Margin: Smooth (0 points) Echogenic foci: None or large comet tail artefact (0 points) The ACR TI-RADS score is TR1. Benign. No fine-needle aspiration or follow-up required. IMPRESSION: 1.There is a right middle lobe TR3 nodule measuring 1.9 x 1.6 x 1.5 cm. Mildly suspicious. Follow-up ultrasound recommended at 1, 3, and 5years. 2.There is another right inferior lobe TR2 nodule which does not require fine-needle aspiration nor follow-up. 3.There are 2 left superior lobe nodules rated TR2 and TR 1 respectively which do not require fine-needle aspiration nor follow-up. > Dictated by Alberto Perez MD (ceo and president). > Dictated by Neighborhood Conservation Officer I, Peter Avalos MD have personally reviewed and interpreted this examination/study. > Interpreting Provider: Peter Avalos MD on 511:37 AM us Sorin Bowden VAULT TELLER-FELT HAT FLANGING OPERATOR US ORDERABLES Fi nal Result * CT Chest Abdomen Pelvis W Cont (12/14/2024 1:16 PM CDT) Anatomical Region Laterality Modality Chest, Abdomen, Pelvis Computed Tomography 12/14/2024 2:08 PM CDT Impressions 12/14/2024 2:52 PM CDT Impression: 1.A new 3 mm groundglass nodule in the right middle lobe. 3 mm nodules in the right upper lobe are unchanged, nonspecific. Recommend attention on follow-up studies. 2.Decrease in size in the hypoattenuating nodule in the right thyroid lobe now measuring 1.3 cm in diameter. 3.No lymphadenopathy identified in the chest, abdomen, or pelvis. 4.Multiple hepatic and renal cysts which may represent polycystic kidney-liver disease. > Dictated by Charbel Oh DO (ceo and president). > Dictated by Neighborhood Conservation Officer IEkta MD have personally reviewed and interpreted this examination/study. > Interpreting Provider: Ekta Lara MD on 12/14/2024 2:52 PM Narrative 12/14/2024 2:52 PM CDT PROCEDURE: CT CHEST ABDOMEN PELVIS W CONT, DATE/TIME OF EXAM: 12/14/2024 1:17 PM, LOCATION [facility] INDICATION: C85.10: B-cell lymphoma, unspecified B-cell lymphoma type, unspecified body region (HCC) C83.30: Diffuse large B-cell lymphoma, unspecified body region (HCC) ADDITIONAL CLINICAL INFORMATION: Ordering Provider Reason For Exam: disease evaluation COMPARISON: CT chest abdomen pelvis 05/28/2024 TECHNIQUE: CT of the chest, abdomen, and pelvis was performed after the uneventful administration of 100 mL of Isovue 370 intravenous contrast according to standard protocol. Findings: Chest: Lower Neck and Axillae: Decrease in size in the hypoattenuating nodule in the right thyroid lobe now measuring 1.3 cm in diameter. Lungs: Bilateral emphysema. Splenic granuloma in the left upper lobe. A new 3 mm groundglass nodule in the right middle lobe not seen on the prior exam (image 69 series 4). Unchanged 3 mm nodule in the right upper lobe (image 26 series 4). Unchanged 3 mm nodule in the right upper lobe (image 31 series 4). No pleural fluid or pneumothorax is present. Heart and Pericardium: A PFO closure device is present. Heart appears normal in size. Mediastinum and Milagro: Multiple calcified mediastinal lymph nodes are present. Thoracic Vasculature: The aorta and its branch vessels are atherosclerotic. Abdomen/pelvis: Liver: Multiple hypoattenuating lesions scattered throughout the liver, some of which are too small to characterize, but likely represent cysts. Calcified granulomas are noted scattered throughout the liver. Gallbladder and Bile Ducts: Normal. Spleen: Multiple calcified granulomas are noted in the spleen, likely sequelae of prior granulomatous disease. Pancreas: Normal. Adrenals: Normal. Kidneys: Multiple cysts are noted in the kidneys bilaterally. No hydronephrosis. Gastrointestinal: The stomach and visualized loops of large and small bowel are unremarkable. Cecum is directed towards the left hemiabdomen. Normal appendix. Moderate to large colonic stool burden. Mesentery/Peritoneum/Retroperitoneum: No free intraperitoneal air. No free fluid in the abdomen or pelvis. Bladder: Normal. Reproductive Organs: The uterus is absent. Abdominal Vasculature: Atherosclerotic calcification of the aorta and its branch vessels. Bones: Bone windows demonstrate no suspicious lytic or blastic lesions. The visible osseous structures are intact. Degenerative changes are seen in the spine. Soft tissues: Normal. Procedure Note Leela Lara MD - 12/14/2024 PROCEDURE: CT CHEST ABDOMEN PELVIS W CONT, DATE/TIME OF EXAM:12/14/2024 1:17 PM, LOCATION [facility] INDICATION: C85.10: B-cell lymphoma, unspecified B-cell lymphoma type, unspecifiedbody region (HCC) C83.30: Diffuse large B-cell lymphoma, unspecified body region (HCC) ADDITIONAL CLINICAL INFORMATION: Ordering Provider Reason For Exam: disease evaluation COMPARISON: CT chest abdomen pelvis 05/28/2024 TECHNIQUE: CT of the chest, abdomen, and pelvis was performed after the uneventful administration of 100 mL of Isovue 370 intravenous contrast according to standard protocol. Findings: Chest: Lower Neck and Axillae: Decrease in size in the hypoattenuating nodule in the right thyroid lobe now measuring 1.3 cm in diameter. Lungs: Bilateral emphysema. Splenic granuloma in the left upper lobe. A new 3 mm groundglass nodule in the right middle lobe not seen on the prior exam (image 69 series 4). Unchanged 3 mm nodule in the right upper lobe (image 26 series 4). Unchanged 3 mm nodule in the right upper lobe (image 31 series 4). No pleural fluid or pneumothorax is present. Heart and Pericardium: A PFO closure device is present. Heart appears normal in size. Mediastinum and Milagro: Multiple calcified mediastinal lymph nodes are present. Thoracic Vasculature: The aorta and its branch vessels are atherosclerotic. Abdomen/pelvis: Liver: Multiple hypoattenuating lesions scattered throughout the liver, some of which are too small to characterize, but likely represent cysts.Calcified granulomas are noted scattered throughout the liver. Gallbladder and Bile Ducts: Normal. Spleen: Multiple calcified granulomas are noted in the spleen, likely sequelaeof prior granulomatous disease. Pancreas: Normal. Adrenals: Normal. Kidneys: Multiple cysts are noted in the kidneys bilaterally. No hydronephrosis. Gastrointestinal: The stomach and visualized loops of large and small bowel areunremarkable. Cecum is directed towards the left hemiabdomen. Normal appendix.Moderate to large colonic stool burden. Mesentery/Peritoneum/Retroperitoneum: No free intraperitoneal air. No free fluid in the abdomen or pelvis. Bladder: Normal. Reproductive Organs: The uterus is absent. Abdominal Vasculature: Atherosclerotic calcification of the aorta and its branch vessels. Bones: Bone windows demonstrate no suspicious lytic or blastic lesions. The visible osseous structures are intact. Degenerative changes are seen inthe spine. Soft tissues: Normal. Impression: 1.A new 3 mm groundglass nodule in the right middle lobe. 3 mm nodulesin the right upper lobe are unchanged, nonspecific. Recommend attention on follow-up studies. 2.Decrease in size in the hypoattenuating nodule in the right thyroidlobe now measuring 1.3 cm in diameter. 3.No lymphadenopathy identified in the chest, abdomen, or pelvis. 4.Multiple hepatic and renal cysts which may represent polycystic kidney-liver disease. > Dictated by Charbel Oh DO (ceo and president). > Dictated by Neighborhood Conservation Officer Ekta Lanier MD have personally reviewed and interpreted this examination/study. > Interpreting Provider: Ekta Lara MD on 12/14/2024 2:52 PM Shreyas Phillips MD CT ORDERABLES Final Result * (ABNORMAL) COMPREHENSIVE METABOLIC PANEL (11/02/2024 1:24 PM CDT) BUN 12 7 - 26 mg/dL 11/02/2024 2:02 PM [facility] Creatinine 0.80 0.56 - 0.96 mg/dL 11/02/2024 2:02 PM T [facility] Sodium 128(L) 136 - 145 mmol/L 11/02/2024 2:02 PM [facility] Potassium 3.6 3.5 - 4.5 mmol/L 11/02/2024 2:02 PM [facility] Chloride 93(L) 98 - 107 mmol/L 11/02/2024 2:02 PM [facility] CO2 29 22 - 29 mmol/L 11/02/2024 2:02 PM [facility] Glucose 104(H) 70 - 99 mg/dL 11/02/2024 2:02 PM [facility] Calcium 9.6 8.4 - 10.2 mg/dL 11/02/2024 2:02 PM [facility] Protein Total 6.3 6.0 - 8.3 g/dL 11/02/2024 2:02 PM [facility] Albumin 4.7 3.4 - 5.0 g/dL 11/02/2024 2:02 PM [facility] Bilirubin Total 0.4 0.2 - 1.2 mg/dL 11/02/2024 2:02 PM [facility] Alkaline Phosphatase 56 40 - 150 U/L 11/02/2024 2:02 PM [facility] ALT 24 5 - 55 U/L 11/02/2024 2:02 PM [facility] AST 20 5 - 34 U/L 11/02/2024 2:02 PM [facility] Anion Gap 6 6 - 16 11/02/2024 2:02 PM [facility] BUN/Creatinine Ratio 15 7 - 23 11/02/2024 2:02 PM [facility] Osmolality Calculated 266(L) 275 - 295 mOsm/kg 11/02/2024 2:02 PM [facility] Albumin/Globulin Ratio 2.9(H) 1.1 - 2.3 11/02/2024 2:02 PM [facility] eGFR by CKD-EPI 81(L) >=90 mL/min/1.7 3 m2 11/02/2024 2:02 PM [facility] Comment:Estimated Glomerular Filtration Rate (eGFR) calculated using the CKD-EPI Creatinine Equation (2020), per the National Kidney Foundation and [place] Society of Nephrology recommendations. Blood BLOOD SPECIMEN / Unknown Venipuncture / Unknown 11/02/2024 1:24 PM CDT 11/02/2024 1:33 PM CDT Shreyas Phillips MD LAB - CHEMISTRY ORDERABLES Final Result Performing Organization Address City/[facility]/ZIP Co de Phone Number [facility] [address] [place] [address], [facility] [phone] * HEMOGLOBIN A1C (02/03/2023 11:03 AM CUT OUT PRESS OPERATOR) Hemoglobin A1c 5.4 <=5.6 % 02/03/2023 3:39 PM [facility] Estimated Average Glucose 108 mg/dL 02/03/2023 3:39 PM [facility] Comment: HbA1c Interpretation: Normal : < 5.7% Pre-diabetes: 5.7-6.4% Diabetes: Equal to or greater than 6.5% Test results diagnostic of diabetes should be repeated for confirmation. Treatment target values recommended by ADA and other clinical organizations should be used to evaluate metabolic control in patients. Reference: [place] Diabetes Association, Standards of Care in Diabetes -2020 In patients 70 years and older consider HbA1c target range of 7.0-7.5% (Reference: Vishal Davis et al. JAMDA. 2012) The Sebia assay for the measurement of HbA1c is a National Glycohemoglobin Standardization Program (NGSP) certified method. Blood BLOOD SPECIMEN / Unknown Lab Venipuncture / Unknown 02/03/2023 11:03 AM CUT OUT PRESS OPERATOR 02/03/2023 11:29 AM CUT OUT PRESS OPERATOR Mohini Sky MD LAB - CHEMISTRY ORDERABLES F inal Result Performing Organization Address City/[facility]/ZIP Co de Phone Number [facility] [address] [place] [address], [facility] [phone] * HEPATITIS C RNA QUANTITATIVE (07/16/2022 12:15 PM CDT) Hepatitis C RNA PCR, Interp Not detected Not detected 07/19/2022 1:08 PM CDT [facility] MICRO[facility]OLOG[facility] Blood BLOOD SPECIMEN / Unknown Lab Venipuncture / Unknown 07/16/2022 12:15 PM CDT 07/16/2022 12:25 PM CDT Narrative [facility] MICROBIOLOGY - 07/19/2022 1:08 PM CDT The Hepatitis C viral (HCV) RNA analysis utilized a serum sample, real-time reverse matrix bath operator PCR, and is reported as Not Detected, [...] the isolation of HCV RNA with reverse matrix bath operator of genomic HCV RNA followed by real-time PCR in the presence of an unrelated RNA internal control. The internal control ensures that RNA is isolated, and that no general significant inhibitors of the RT-PCR process are present. The analysis was performed using a U.S. FDA approved test methodology. Shreyas Phillips MD LAB - CHEMISTRY ORDERABLES Final Result [facility] MICROBIOLOGY [address] [place] [address], [facility] [phone] from Last 3 Months or Most Recently Relevant to Health Maintenance Insurance MEDICAID - [place] MEDICARE U[employer] MANAGED MEDICARE ADV MEDICAID [place] Advance Directives * Full Code (Latest Code [...] 3:45 PM 10/19/2022 5:53 PM Care Teams Mud Logger Relationship Specialty Start Date End Date Agustin Flor MD [address] [place] [address] PCP - General General Medicine 06/28/22 Shreyas Phillips MD [address] [place] [address] Physician Hematology and Oncology 03/23/23 Bebe Hernandez, PA-C [address] [place] [address] Physician Electronic Engineering Technician Physician Electronic Engineering Technician 03/23/23 Nanda Rausch, RN Registered Nurse 03/23/23
--- OUTSIDE RECORDS SUMMARY | 2025-02-27 13:11 | XMS_ITS | Clinical Summary ---
Author Organization [facility] Address [address] [place] [address] Phone Care Team Providers Care Supervisor Alum [employer] Name Role Phone Agustin Flor MD Primary Care Provider [phone] Allergies Active Allergy Reactions Criticality Noted Date [...] CDT) hepatitis C antibody 0.09 <1 S/CO [facility] ARCH [id number] B 07/13/2022 9:22 PM CDT [facility] Comment: Signal/Cutoff ratio < 0.79 is Nondetected Signal/Cutoff ratio 0.80-0.99 is Grayzone Signal/Cutoff ratio > 0.99 is Detected Supplemental assays are recommended if signal/cutoff ratio is >/=1.00. Signal/cutoff ratio result >/= 5.00 is 97% predictive of positivity for recombinant immunoblot assay (RIBA) and will be reported to the [place] [facility] as required. Blood Venipuncture / Unknown 07/13/2022 1:29 PM CDT 07/13/2022 1:41 PM CDT Hans Escobar MD CHEMISTRY ORDERABLES Fin al Result [facility] [address] [place] [address], from Last 3 Months or Most Recently Relevant to Health Maintenance Insurance MEDICARE C [employer] MEDICAID [place] Care Teams Supervisor Alum Plant Relationship Specialty Start Date End Date Agustin Flor MD PCP - General Internal Medicine 4/18/23
--- OUTSIDE RECORDS SUMMARY | 2025-02-27 13:12 | XMS_ITS | Clinical Summary ---
Author Organization [facility] Medical Office Building [address] Address [address] [place] [address] Care Team Providers Care Construction Rigger Name Role Phone Agustin Flor MD Primary Care Provider [phone] Annie Simpson MD Unavailable [phone] Allergies Active Allergy Reactions Criticality Noted Date Comments Aspirin Eye irritation,Other (See comments),Shortness of breath,Swelling,Unkno wn High 04/12/2018 Breathing Difficulty Pain in the chest, eye red and swollen Azithromycin Eye irritation,Other (See comments),Shortness of breath High 06/15/2024 Benzalkonium Chloride Rash Medium 11/02/2024 Cefdinir Itching,Rash Medium 04/21/2023 Chlorthalidone Itching,Unknown,Urti c aria,Other (See comments) Medium 07/13/2022 Makes her itch Clonazepam Other (See comments),Unknown High 05/17/2018 Uncontrolled muscle movement Jerk in the leg clonazepam Hydralazine Itching,Shortness of breath High 11/02/2024 Hydrochlorothiazide Itching,Unknown,Othe r (See comments) Low 12/15/2022 Severe itching Losartan Itching Low 11/02/2024 Nifedipine Itching Low 11/02/2024 Medications albuterol HFA (PROVENTIL HFA,VENTOLIN HFA,PROAIR HFA) [...] mouth nightly 3 Active FreeStyle Ron 3 [employer] misc 2 (two) times a day 4 [...] 90 tablet 3 5 06/01/19 26 Active carvediloL (COREG) 6.25 mg tablet Take 1 tablet (6.25 mg total) by mouth every 12 (twelve) hours 5 Active magnesium oxide (MAG-OX) 415 mg (250 mg elemental) tablet Take by mouth daily Active hydrOXYzine (VISTARIL) 50 mg capsule TAKE 1 CAPSULE BY MOUTH EVERY DAY AT BEDTIME FOR SLEEP OR ANXIETY 5 Active Active Problems Problem Noted Date Diagnosed Date PFO (patent foramen ovale) 02/22/2024 Assessment & Plan (08/22/2024 2:55 PM CDT): She has completed the repair procedure and followed with cardiology This significantly improved her dyspnea on exertion. Assessment & Plan (02/22/2024 9:06 AM ORE MINER BLASTING): She has followed with cardiology and has now seen a surgeon with plans for repair in the next several months We will reassess her dyspnea after her recovery from this procedure Centrilobular emphysema 02/22/2024 Assessment & Plan (01/30/2025 1:24 PM ORE MINER BLASTING): Continue Trelegy Ellipta 100 daily at the same time Albuterol 2 puffs every 4 hours as needed only, we have discussed indications for use A1AT MM She does not have frequent exacerbations She has not have peripheral eosinophilia We have discussed vaccines We have discussed signs and symptoms that would require earlier evaluation or change to her plan of care Assessment & Plan (08/22/2024 2:54 PM CDT): [...] care Assessment & Plan (02/22/2024 9:05 AM ORE MINER BLASTING): Continue Trelegy Ellipta 100 daily Albuterol as [...] dependence in remission 02/21 Assessment & Plan (01/30/2025 1:23 PM ORE MINER BLASTING): She qualifies for annual screening She is following with Oncology scans every 3 months Assessment & Plan (02/22/2024 9:06 AM ORE MINER BLASTING): Last CT chest in November of 2023 [...] Encounters Date Type Department Care Team Description 01/30/2025 10:30 AM ORE MINER BLASTING Office Visit [facility] Pulmonary at [address] [place] [address] Ana Chang, DRY PRESS OPERATOR HELPER Centrilobular emphysema (Primary Dx); Cigarette nicotine dependence in remission from Last 3 Months Surgical History Surgery Date Site/Laterality Comments PORT PLACEMENT CHEST >5 YEARS 07/15/2022 N/A removed 03/2024 CARDIAC STENT PLACEMENT OTHER SURGICAL HISTORY 03/28/2023 - 03/27/2024 LOOP recorder placement HYSTERECTOMY EYE SURGERY Bilateral cataracts CARDIAC CATHETERIZATION 05/29/2024 N/A Procedure: ATRIAL SEPTAL DEFECT (ASD), PATENT FORAMEN OVALE (PFO), FENESTRATION CLOSURE [id number]; Surgeon: Gallo Geller MD; 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 Patient does not drink Frequency of Binge Drinking Not on file 07/2024 Personal Safety Answer Date Recorded Have you ever been in or are you currently in a harmful physical or emotional relationship or is someone making you feel afraid or unsafe? Denies 05/29/2024 Comments Unknown Sex and Gender Information Value Date Recorded Sex Assigned at Not on file Legal Sex Female 9:14 PM ORE MINER BLASTING Gender Identity Not on file Sexual Orientation Not on file Last Filed Vital Signs Vital Sign Reading Time Taken Comments Blood Pressure 120/64 01/30/2025 10:23 AM ORE MINER BLASTING Pulse 68 01/30/2025 10:23 AM ORE MINER BLASTING Temperature 36.8 C (98.3 F) 01/30/2025 10:23 AM ORE MINER BLASTING Respiratory Rate 18 01/30/2025 10:23 AM ORE MINER BLASTING Oxygen Saturation 99% 01/30/2025 10:23 AM ORE MINER BLASTING Inhaled Oxygen Concentration - - Weight 56.3 kg (124 lb 3.2 oz) 01/30/2025 10:23 AM ORE MINER BLASTING Height 162.6 cm (5' 4) 01/30/2025 10:23 AM ORE MINER BLASTING Body Mass Index 21.32 01/30/2025 10:23 AM ORE MINER BLASTING Plan of Treatment Health Maintenance Due Date [...] 01/21/2022, 03/2014 Medical Devices Implanted Type Area Practice Consultant Device Identifier Shelf Expiration Date Model / Serial / Lot [employer] Occluder Amplatzer Talisman Pfo 25-18mm [id number] - [id number] Implanted:Qty: 1 on 05/29/2024 by Gallo Geller MD at [facility] Septal Defect Closure Device [employer] 03/27/2025 [id number] / / [employer] System Closure Repair Femoral Artery Suture Mediated Perclose Prostyle [id number] - [id number] Implanted:Qty: 1 on 05/29/2024 by Gallo Geller MD at [facility] [employer] 02/24/2026 [id number] / / [id number] Procedures Procedure Name Priority Date/Time Associated Diagnosis Comments EGFR Routine 05/30/2024 4:01 AM ORE MINER BLASTING HEMOGLOBIN A1C Routine 04/12/2018 5:45 AM ORE MINER BLASTING LIPID PANEL Routine 04/12/2018 5:45 AM ORE MINER BLASTING from Last 3 Months or Most Recently Relevant to Health Maintenance Results * eGFR (05/30/2024 4:01 AM ORE MINER BLASTING) eGFR 61 >=60 mL/min/1. 73 m2 Comment: [...] last reviewed 2021. Blood 05/30/2024 4:01 AM ORE MINER BLASTING 05/30/2024 4:33 AM ORE MINER BLASTING us Gallo Geller MD LAB BLOOD ORDERABLES Final Resu lt Performing Organization Address City/[facility]/ZIP Co de Phone Number [facility] [address] [place] [address] * (ABNORMAL) Hemoglobin A1c (04/12/2018 5:45 AM ORE MINER BLASTING) Hemoglobin A1c % 5.9(H) 4.0 - 5.6 % 04/12/2018 6:40 AM ORE MINER BLASTING [facility] [employer] HISTORICAL RESULTS Comment: ADA 2016 GUIDELINES: Initial Diagnostic Criteria HbA1c Result: Interpretation: <5.7% Normal 5.7-6.4% At risk for diabetes mellitus >=6.5% Consistent with diabetes mellitus Diabetes monitoring Target value (ADA Recommended) <7% 04/12/2018 5:45 AM ORE MINER BLASTING 04/12/2018 6:02 AM ORE MINER BLASTING Narrative [facility] [employer] HISTORICAL RESULTS - 04/12/2018 6:40 AM ORE MINER BLASTING Comment In AM us Guicho Nova MD LAB BLOOD ORDERABLES Final Resul t [facility] [employer] HISTORICAL RESULTS * Lipid panel (04/12/2018 5:45 AM ORE MINER BLASTING) Triglycerides 124 0 - 149 mg/dL 04/12/2018 6:42 AM [facility] [employer] HISTORICAL RESULTS Comment: National Lipid Association/NCEP Guidelines: Normal < 150 mg/dL Borderline high 150-199 mg/dL High 200-499 mg/dL Very High >=500 mg/dL Cholesterol 118 0 - 199 mg/dL 04/12/2018 6:42 AM [facility]OR[facility] RESULTS Comment: National Lipid Association/NCEP Guidelines: Desirable < 200 mg/dL Borderline high: 200-239 mg/dL High Risk: >=240 mg/dL HDL Cholesterol 52 mg/dL 9 6:42 AM [facility] HISTORICAL RESULTS Comment: Reference Ranges: Males: >=40 mg/dL Females: >=50 mg/dL LDL Cholesterol, Calc 41 0 - 129 mg/dL 04/12/2018 6:42 AM [facility] HISTORICAL RESULTS Comment: National Lipid Association/NCEP Guidelines: Optimal < 100 mg/dL Near Optimal 100-129 mg/dL Borderline high 130-159 mg/dL High >=160 mg/dL Cholesterol/HDL Ratio 2.3 04/12/2018 6:42 AM [facility] HISTORICAL RESULTS Comment: Optimal < 3.5:1 High > 5:1 04/12/2018 5:45 AM ORE MINER BLASTING 04/12/2018 6:02 AM ORE MINER BLASTING Narrative [facility] HISTORICAL RESULTS - 04/12/2018 6:42 AM ORE MINER BLASTING Comment In AM us Guicho Nova MD LAB BLOOD ORDERABLES Final Resul t Performing Organization Address City/State/[facility] Co de Phone Number [facility]ISTOR[facility] RESULTS from Last 3 Months or Most Recently Relevant to Health Maintenance Insurance IDPA [facility] MEDICARE ADVANTAGE [facility] MEDICARE ADVANTAGE [place] Advance Directives For more information, please contact: [phone] * Full Code (Latest Code Status on File) Date Activated Date Inactivated Comments 05/29/2024 10:10 AM 05/30/2024 3:37 PM Care Teams Construction Rigger Relationship Specialty Start Date End Date Agustin Flor MD PCP - General Internal Medicine 06/28/22 Annie Simpson MD [address] [place] [address] Consulting Physician Cardiology 05/30/24
--- OUTSIDE RECORDS SUMMARY | 2025-02-27 13:12 | XMS_ITS ---
Author Organization [facility] Medical Office Building B Address [address] [place] [address] Care Team Providers Care Customer Facilities Supervisor Name Role Phone Agustin Flor MD Primary Care Provider [phone] Annie Simpson MD Unavailable [phone] Active Problems Problem Noted Date Diagnosed Date PFO (patent foramen ovale) 02/22/2024 Assessment & Plan (08/22/2024 2:55 PM CDT): She has completed the repair procedure and followed with cardiology This significantly improved her dyspnea on exertion. Assessment & Plan (02/22/2024 9:06 AM SURFACER OPERATOR): She has followed with cardiology and has now seen a surgeon with plans for repair in the next several months We will reassess her dyspnea after her recovery from this procedure Centrilobular emphysema 02/22/2024 Assessment & Plan (01/30/2025 1:24 PM SURFACER OPERATOR): Continue Trelegy Ellipta 100 daily at the [...] care Assessment & Plan (02/22/2024 9:05 AM SURFACER OPERATOR): Continue Trelegy Ellipta 100 daily Albuterol [...] 02/21 Assessment & Plan (01/30/2025 1:23 PM SURFACER OPERATOR): She qualifies for annual screening She is following with Oncology scans every 3 months Assessment & Plan (02/22/2024 9:06 AM SURFACER OPERATOR): Last CT chest in November of [...]
== END 2025-02-27 11:37 | disposition home or self-care (01) ==
PROVIDERS: PCP Internal Medicine
DX: Z79.899 Other long term (current) drug therapy (principal); R94.31 Abnormal electrocardiogram [ECG] [EKG]
CPT/HCPCS: 93005